=== PATIENT | female | born 1950 | race Caucasian/White ===

== ENCOUNTER 2016-08-30 16:59 | Inpatient (IN) | payer OTHER ==
--- NOTE | 2016-08-30 17:28 | PDOC ---
History of Present Illness - General History Source: Patient, Family (Sister), Old Records Exam Limitations: No Limitations - History of Present Illness Initial Comments: 08/30/16 18:59 The patient is a 65 year old female, with a significant past medical history of HTN, hyperlipidemia, diabetes, diabetic neuropathy, COPD, CML, hypothyroidism, fatty liver, and anxiety, who presents to the emergency department via EMS from [facility]; rehab and nursing facility) with altered mental status. The patient was seen in this ED on 06/19/2016 for similar symptoms, was admitted for anemia, hyperglycemia, CHF and COPD, and was discharged to [facility] ([place]; rehab and nursing facility). Over the past couple of weeks, the patient states that she has felt confused, dizzy, shaky and she reports 2 recent falls, no head trauma or LOC. The patients sister is with the patient in the ED, she insisted the patient come to the ED for evaluation today. Currently in the ED, the patient reports shortness of breath and reports urinary urgency, which she describes as a pressure. The patient denies fever, dizziness, nausea or vomiting. Allergies: Metoprolol Past Surgical History: Cholecystectomy, Hernia, Social History: Former smoker (quit in 2013. Denies alcohol or drug use. PCP: Dr. English <Jackie Vasquez - Last Filed: 08/31/16 02:15> <Sonya Cárdenas - Last Filed: 09/02/16 08:55> - General Stated Complaint: WEAKNESS,ALT MENTAL STATUS Time Seen by Provider: 08/30/16 17:26 Past History <Jackie Vasquez - Last Filed: 08/31/16 02:15> - Past Medical History Anemia: No Asthma: No Cancer: (CML) Cardiac Disorders: No CVA: No COPD: Yes CHF: No Dementia: No Diabetes: Yes GI Disorders: No Disorders: Yes (uti) HTN: Yes Hypercholesterolemia: Yes (BORDERLINE) Liver Disease: Yes (fatty liver) Psychiatric Problems: Yes (ANXIETY.) Suicide Attempt (Hx): No Seizures: No Thyroid Disease: Yes (HYPO) - Surgical History Abdominal Surgery: Yes (hernia) Cardiac Surgery: No Cholecystectomy: Yes Lung Surgery: No Neurologic Surgery: No Orthopedic Surgery: No - Immunization History Immunization Up to Date: Yes - Psycho/Social/Smoking Cessation Hx Anxiety: No Suicidal Ideation: No Smoking Status: Yes Smoking History: Former smoker Have you smoked in the past 12 months: No Number of Cigarettes Smoked Daily: 0 If you are a former smoker, when did you quit?: 2013 'Breaking Loose' booklet given: 02/28/12 Hx Alcohol Use: No Drug/Substance Use Hx: No Substance Use Type: None Hx Substance Use Treatment: No <Sonya Cárdenas - Last Filed: 09/02/16 08:55> - Past Medical History Allergies/Adverse Reactions: Allergies Allergy/AdvReac Type Severity Reaction Status Date / Time metoprolol Allergy Intermediate Rash Verified 04/14/16 11:01 Home Medications: Ambulatory Orders Acarbose [Precose -] 25 mg PO TID 02/19/15 Gabapentin [Neurontin] 600 mg PO TID 02/19/15 Levothyroxine [Synthroid -] 25 mcg PO DAILY 02/19/15 Lisinopril [Zestril] 20 mg PO BID 02/19/15 Nilotinib HCl [Tasigna] 300 mg PO BID 02/19/15 Glimepiride [Amaryl -] 4 mg PO BID #0 11/23/15 Albuterol Sulfate Inhaler - [Ventolin HFA Inhaler -] 2 inh IH Q6H PRN 04/11/16 Acetaminophen [Tylenol .Regular Strength -] 650 mg PO Q4H PRN #0 tablet Oxycodone HCl [Roxicodone -] 10 mg PO Q4H PRN #0 tablet MDD 60mg 06/28/16 Review of Systems - Review of Systems Able to Perform ROS?: Yes Comments:: 08/30/16 19:01 GENERAL/CONSTITUTIONAL: No fever or chills. No weakness. HEAD, EYES, EARS, NOSE AND THROAT: No change in vision. No ear pain or discharge. No sore throat. CARDIOVASCULAR: +Shortness of breath. No chest pain. RESPIRATORY: No cough, wheezing, or hemoptysis. GASTROINTESTINAL: No nausea, vomiting, diarrhea or constipation. GENITOURINARY: +Urinary urgency. No dysuria, frequency. MUSCULOSKELETAL: No joint or muscle swelling or pain. No neck or back pain. SKIN: No rash. NEUROLOGIC: No headache, vertigo, loss of consciousness, or change in strength/ sensation. ENDOCRINE: No increased thirst. No abnormal weight change. HEMATOLOGIC/LYMPHATIC: No anemia, easy bleeding, or history of blood clots. ALLERGIC/IMMUNOLOGIC: No hives or skin allergy. <Jackie Vasquez - Last Filed: 08/31/16 02:15> *Physical Exam - Vital Signs Last Vital Signs Temp Pulse Resp BP Pulse Ox 98.3 F 76 20 158/69 94 L 08/30/16 17:29 08/30/16 17:29 08/30/16 17:29 08/30/16 17:29 08/30/16 17:29 - Physical Exam Comments: 08/31/16 02:15 GENERAL: Obese. Awake, alert, and fully oriented, in no acute distress. HEAD: No signs of trauma. EYES: PERRLA, EOMI, sclera anicteric, conjunctiva clear. ENT: Dry mucosa. Auricles normal inspection, hearing grossly normal, nares patent, oropharynx clear without exudates. NECK: Normal ROM, supple, no lymphadenopathy, JVD, or masses. LUNGS: Breath sounds equal, clear to auscultation bilaterally. No wheezes, and no crackles. HEART: Regular rate and rhythm, normal S1 and S2, no murmurs, rubs or gallops. ABDOMEN: Soft, nontender, normoactive bowel sounds. No guarding, no rebound. No masses. EXTREMITIES: 3+ pitting edema, bilateral lower extremities with chronic venous stasis changes. No clubbing or cyanosis. No cords, erythema, or tenderness. NEUROLOGICAL: Cranial nerves II through XII grossly intact. Normal speech. SKIN: Right foot, 3cm ulcer to plantar surface of the right heel. Left foot, 1cm ulcer to plantar surface of the left heel, 2.5cm in diameter to the medial left heel. Warm, dry, normal turgor. <Jackie Vasquez - Last Filed: 08/31/16 02:15> ED Treatment Course - LABORATORY CBC & Chemistry Diagram: 08/30/16 17:50 08/30/16 17:50 <Jackie Vasquez - Last Filed: 08/31/16 02:15> - LABORATORY CBC & Chemistry Diagram: 09/02/16 06:30 09/02/16 06:30 <Sonya Cárdenas - Last Filed: 09/02/16 08:55> Medical Decision Making - Medical Decision Making 08/30/16 21:35 EXAM: CHEST X-RAY PORTABLE Reviewed By: Dr. Amie Duogn IMPRESSION: Suggestion of mild vascular congestion. <Jackie Vasquez - Last Filed: 08/31/16 02:15> - Medical Decision Making XR is concerning for possible osteomyelitis, which would explain the recent increase in patient's pain. Will admit. <Sonya Cárdenas - Last Filed: 09/02/16 08:55> *DC/Admit/Observation/Transfer - Attestations Scribe Attestion: 08/30/16 18:12 Documentation prepared by Jackie Vaqsuez, acting as medical records assistant for Snoya Cárdenas MD. <Jackie Vasquez - Last Filed: 08/31/16 02:15> - Discharge Dispostion Admit: Yes <Sonya Cárdenas - Last Filed: 09/02/16 08:55> Diagnosis at time of Disposition: Shortness of breath Diabetic foot ulcer Qualifiers: Diabetes mellitus type: other specified (including STORM) Laterality: bilateral Qualified Code(s): E13.621 - Other specified diabetes mellitus with foot ulcer - Discharge Dispostion Condition at time of disposition: Stable - Referrals
[2016-08-30 17:34] VITALS: BMI 41.6
[2016-08-30 18:07] LABS: BASOPHIL 0.5 % (0-2.0); EOSINOPHIL 0.3 % (0-4.5); MCHC 31.9 g/dl (32.0-36.0); MEAN CELL VOLUME 84.6 fl (80-96); MEAN PLT VOLUME 8.9 fl (7.5-11.1); NEUTROPHILS 83.3 % (42.8-82.8); PLATELET COUNT 251 K/MM3 (134-434); RDW 18.4 % (11.6-15.6); WHITE BLOOD COUNT 10.4 K/mm3 (4.0-10.0)
[2016-08-30 18:26] LABS: INR 1.36 (0.82-1.09); PROTHROMBIN TIME (PATIENT) 15.1 SEC (9.98-11.88)
[2016-08-30 18:28] LABS: ALBUMIN 2.1 g/dl (3.4-5.0); ANION GAP 9 (8-16); BILIRUBIN,TOTAL 0.6 mg/dL (0.2-1.0); CALCIUM 7.9 mg/dL (8.5-10.1); CO2 27 mmol/L (21-32); CREATININE 0.9 mg/dL (0.55-1.02); SGPT/ALT 25 U/L (12-78); TOT PROT 7.2 g/dl (6.4-8.2)
[2016-08-30 18:31] LABS: ALK PHOS 227 U/L (45-117); TROPONIN I < 0.02 ng/ml (0.00-0.05)
[2016-08-30 18:40] LABS: SGOT/AST 34 U/L (15-37)
[2016-08-30 18:42] LABS: GLUCOSE,RANDOM 340 mg/dL (74-106)
[2016-08-30] MEDS ORDERED: SODIUM CHLORIDE 1,000 ML IV STA (19:52)
[2016-08-30] MEDS ORDERED: VANCOMYCIN 1,000 MG in DEXTROSE 5%-WATER - 250 ML IVPB ONE (19:52)
[2016-08-30] MEDS ORDERED: VANCOMYCIN 1 GRAM (PRE-DOCKED) 250 ML IVPB ONE (19:59)
[2016-08-30] MEDS ORDERED: oxyCODONE HCL 5 MG TABLET PO ONE (20:15)
[2016-08-30] MEDS ORDERED: oxyCODONE HCL 5 MG TABLET ONE (20:18)
[2016-08-30 20:20] LABS: URINE APPEARANCE CLEAR; URINE BILIRUBIN NEGATIVE (NEGATIVE); URINE BLOOD NEGATIVE (NEGATIVE); URINE COLOR YELLOW; URINE GLUCOSE (UA) 3+ (NEGATIVE); URINE KETONE NEGATIVE (NEGATIVE); URINE LEUK ESTERASE NEGATIVE (NEGATIVE); URINE NITRITE NEGATIVE (NEGATIVE); URINE UROBILINOGEN NEGATIVE E.U./dl (0.2-1.0)
[2016-08-30 20:25] LABS: URINE PROTEIN 2+ (NEGATIVE)
[2016-08-30 20:30] LABS: URINE HYALINE CAST 1 /lpf; URINE MUCUS RARE; URINE RBC 1 /hpf (0-3); URINE WBC <1 /hpf (3-5)
--- NOTE | 2016-08-30 22:02 | HP ---
CHIEF COMPLAINT: AMS PCP: Dr. Longo HISTORY OF PRESENT ILLNESS: This is a 65- year old female with a past medical history of: HTN, HLD, DM Type II, Diabetic Neuropathy, COPD, CML, Hypothyroidism, Fatty Liver, Anxiety. Who presents to the emergency department from [facility] ([facility]) with AMS. Patient reports not feeling herself for a couple of days, with weakness. Patient is currently being teated for pressure ulcers to bilateral heels. Patient reports SOB x 1 week. Patient denies fever, chills, CP, AP, N/V/D, constipation, melena , hematuria, dysuria. ER course was notable for: (1) Foot Xray- report: high suspicion for osteomyelitis (2) WBC 10.4 (3) Glucose 340 Recent Travel: None PAST MEDICAL HISTORY: See HPI PAST SURGICAL HISTORY: See HPI Social History: Smoking: Former Alcohol: None Drugs: None Resides at a [facility] Family History: Non-contributory Allergies metoprolol Allergy (Intermediate, Verified 04/14/16 11:01) Rash HOME MEDICATIONS: Medication Instructions Recorded Acarbose [Precose -] 25 mg PO TID 02/19/15 Gabapentin [Neurontin] 600 mg PO TID 02/19/15 Levothyroxine [Synthroid -] 25 mcg PO DAILY 02/19/15 Lisinopril [Zestril] 20 mg PO BID 02/19/15 Nilotinib HCl [Tasigna] 300 mg PO BID 02/19/15 Glimepiride [Amaryl -] 4 mg PO BID #0 11/23/15 Albuterol Sulfate Inhaler - 2 inh IH Q6H PRN 04/11/16 [Ventolin HFA Inhaler -] Acetaminophen [Tylenol .Regular 650 mg PO Q4H PRN #0 tablet 06/28/16 Strength -] Oxycodone HCl [Roxicodone -] 10 mg PO Q4H PRN #0 tablet MDD 60mg 06/28/16 REVIEW OF SYSTEMS CONSTITUTIONAL: generalized weakness Absent: fever, chills, diaphoresis, malaise, loss of appetite, weight change HEENT: Absent: rhinorrhea, nasal congestion, throat pain, throat swelling, difficulty swallowing, mouth swelling, ear pain, eye pain, visual changes CARDIOVASCULAR: peripheral edema Absent: chest pain, syncope, palpitations, irregular heart rate, lightheadedness RESPIRATORY: shortness of breath Absent: cough, dyspnea with exertion, orthopnea, wheezing, stridor, hemoptysis GASTROINTESTINAL: Absent: abdominal pain, abdominal distension, nausea, vomiting, diarrhea, constipation, melena, hematochezia GENITOURINARY: Absent: dysuria, frequency, urgency, hesitancy, hematuria, flank pain, genital pain MUSCULOSKELETAL: Absent: myalgia, arthralgia, joint swelling, back pain, neck pain SKIN: Absent: rash, itching, pallor HEMATOLOGIC/IMMUNOLOGIC: Absent: easy bleeding, easy bruising, lymphadenopathy, frequent infections ENDOCRINE: Absent: unexplained weight gain, unexplained weight loss, heat intolerance, cold intolerance NEUROLOGIC: mental status changes Absent: headache, focal weakness or paresthesias, dizziness, unsteady gait, seizure, bladder or bowel incontinence PSYCHIATRIC: Absent: anxiety, depression, suicidal or homicidal ideation, hallucinations. PHYSICAL EXAMINATION Vital Signs - 24 hr 08/30/16 08/30/16 17:29 18:00 Temperature 98.3 F 98.4 F Pulse Rate 76 Pulse Rate [ 75 Radial] Respiratory 20 18 Rate Blood Pressure 158/69 Blood Pressure 140/57 [Left Arm] O2 Sat by Pulse 94 L 96 Oximetry (%) GENERAL: Awake, alert, and fully oriented, in no acute distress. HEAD: Normal with no signs of trauma. EYES: Pupils equal, round and reactive to light, extraocular movements intact, sclera anicteric, conjunctiva clear. No lid lag. EARS, NOSE, THROAT: Ears normal, nares patent, oropharynx clear without exudates. Dry mucous membranes. NECK: Normal range of motion, supple without lymphadenopathy, JVD, or masses. LUNGS: Breath sounds clear to right lobes, diminished to left base. No wheezes, and no crackles. No accessory muscle use. HEART: Regular rate and rhythm, normal S1 and S2 without murmur, rub or gallop. ABDOMEN: Soft, obese, nontender, not distended, normoactive bowel sounds, no guarding, no rebound, no masses. No hepatomegaly or splenomegaly. MUSCULOSKELETAL: Normal range of motion at all joints. No bony deformities or tenderness. No CVA tenderness. UPPER EXTREMITIES: 2+ pulses, warm, well-perfused. No cyanosis. No clubbing. Cap refill <2 seconds. No peripheral edema. LOWER EXTREMITIES: 2+ pulses, warm, well-perfused. No calf tenderness. Bilateral pitting +4 peripheral edema. NEUROLOGICAL: Cranial nerves II-XII intact. Normal speech. Gait not observed. PSYCHIATRIC: Cooperative. Good eye contact. Appropriate mood and affect. SKIN: Warm, dry, normal turgor, no rashes or, +pressure ulcers to bilateral heels, +necrosis to R- heel, noted. Laboratory Results - last 24 hr 08/30/16 08/30/16 08/30/16 17:50 17:50 17:50 WBC 10.4 H D RBC 3.45 L Hgb 9.3 L Hct 29.2 L MCV 84.6 MCHC 31.9 L RDW 18.4 H Plt Count 251 MPV 8.9 Neutrophils % 83.3 H Lymphocytes % 7.9 L D Monocytes % 8.0 Eosinophils % 0.3 D Basophils % 0.5 INR 1.36 H Sodium 134 L Potassium 4.5 Chloride 98 Carbon Dioxide 27 +3Anion Gap 9 BUN 17 D Creatinine 0.9 D Creat Clearance w eGFR > 60 Random Glucose 340 H* D Calcium 7.9 L Total Bilirubin 0.6 AST 34 D ALT 25 Alkaline Phosphatase 227 H D Creatine Kinase 60 Troponin I < 0.02 Total Protein 7.2 Albumin 2.1 L D Urine Color Urine Appearance Urine pH Ur Specific Garwin Urine Protein Urine Glucose (UA) Urine Ketones Urine Blood Urine Nitrite Urine Bilirubin Urine Urobilinogen Ur Leukocyte Esterase Urine RBC Urine WBC Hyaline Casts Urine Mucus 08/30/16 20:00 WBC RBC Hgb Hct MCV MCHC RDW Plt Count MPV Neutrophils % Lymphocytes % Monocytes % Eosinophils % Basophils % INR Sodium Potassium Chloride Carbon Dioxide Anion Gap BUN Creatinine Creat Clearance w eGFR Random Glucose Calcium Total Bilirubin AST ALT Alkaline Phosphatase Creatine Kinase Troponin I Total Protein Albumin Urine Color Yellow Urine Appearance Clear Urine pH 5.0 Ur Specific Garwin 1.010 Urine Protein 2+ H Urine Glucose (UA) 3+ H Urine Ketones Negative Urine Blood Negative Urine Nitrite Negative Urine Bilirubin Negative Urine Urobilinogen Negative Ur Leukocyte Esterase Negative Urine RBC 1 Urine WBC <1 Hyaline Casts 1 Urine Mucus Rare ASSESSMENT/PLAN: This is a 65 year old female with a PMHx of: HTN, HLD, DM, Diabetic Neuropathy, COPD, CML, Hypothyroidism, Fatty Liver, Anxiety. Who presents to the ED with AMS and generalized weakness. Admitted for AMS, Diabetic Foot Ulcer r/o Osteomyelitis Plan: 1. Neurological: - AMS likely secondary to infection. On exam: patient is AAOx3, time, place and person. Mini Mental 3/3. 2. Integumentary: -Diabetic Right Foot Ulcer, On exam: +necrosis to surrounding tissues to right heel. Vancoymcin given in ED. Right foot xray: high suspicion osteomyelitis - Consider ID consult for ABX recommendations, will continue vancomycin renal dosing. Consider Vascular Consult for possible debridement 3. Endocrinology: -Hyperglycemia/Hypothyroidism- BGMs, ISS, Hold home meds secondary for tighter glycemic control, HgBA1C in am. Continue Levothyroxine, TSH in am 4. Pulmonary: - SOB- Patient reports SOB x 1 week- now resolved. If continues consider CT chest r/o PE 5. Cardiology: HTN/HLD- Continue home meds with parameters, monitor renal function. +4 pitting edema, chronic stasis ulcers to bilateral LE, will start on Lasix BID, strict INOs, Daily weights. Chest xray showed mild vascular congestion 6. Oncology: CML Continue to monitor and f/u in outpatient setting upon discharge. 7. F/E/N - PO Fluids 0.5L restriction - Replete lytes as indicated - Low Na, 1800 ADA Diet 8. DVT/PPI Prophylaxis - Heparin SQ/ PPI Code Status: Patient is a Full Code Problem List - Problem (1) Diabetic foot ulcer Code(s): E11.621 - TYPE 2 DIABETES MELLITUS WITH FOOT ULCER L97.509 - NON-PRESSURE CHRONIC ULCER OTH PRT UNSP FOOT W UNSP SEVERITY Qualifiers: Diabetes mellitus type: other specified (including STORM) Laterality: bilateral Qualified Code(s): E13.621 - Other specified diabetes mellitus with foot ulcer; L97.509 - Non-pressure chronic ulcer of other part of unspecified foot with unspecified severity (2) Heel ulcer due to DM Code(s): E11.621 - TYPE 2 DIABETES MELLITUS WITH FOOT ULCER L97.409 - NON-PRS CHRONIC ULCER OF UNSP HEEL AND MIDFOOT W UNSP SEVERT (3) Altered mental status Code(s): R41.82 - ALTERED MENTAL STATUS, UNSPECIFIED (4) CHF (congestive heart failure) Code(s): I50.9 - HEART FAILURE, UNSPECIFIED Qualifiers: Congestive heart failure type: unspecified congestive heart failure type Congestive heart failure chronicity: acute Qualified Code(s): I50.9 - Heart failure, unspecified (5) CML (chronic myelocytic leukemia) Code(s): C92.10 - CHRONIC MYELOID LEUK, BCR/ABL-POSITIVE, NOT ACHIEVE REMIS (6) COPD (chronic obstructive pulmonary disease) Code(s): J44.9 - CHRONIC OBSTRUCTIVE PULMONARY DISEASE, UNSPECIFIED Qualifiers : COPD type: unspecified COPD Qualified Code(s): J44.9 - Chronic obstructive pulmonary disease, unspecified (7) Diabetes Code(s): E11.9 - TYPE 2 DIABETES MELLITUS WITHOUT COMPLICATIONS (8) Hyperglycemia Code(s): R73.9 - HYPERGLYCEMIA, UNSPECIFIED (9) Hyperlipidemia Code(s): E78.5 - HYPERLIPIDEMIA, UNSPECIFIED (10) Hypertension Code(s): I10 - ESSENTIAL (PRIMARY) HYPERTENSION (11) Hypothyroid Code(s): E03.9 - HYPOTHYROIDISM, UNSPECIFIED (12) DVT prophylaxis Code(s): [id number] - Visit type - Emergency Visit Emergency Visit: Yes ED Registration Date: 08/30/16 Care time: The patient presented to the Emergency Department on the above date and was hospitalized for further evaluation of their emergent condition. - New Patient This patient is new to me today: Yes Date on this admission: 08/30/16 - Critical Care Critical Care patient: No
[2016-08-30] MEDS ORDERED: ACETAMINOPHEN 325 MG TABLET (FP) PO PRN (23:21)
[2016-08-30] MEDS ORDERED: ALBUTEROL SO4 2.5/IPRATROPIUM 0.5 INH SOL 3 ML VIAL.NEB. NEB PRN (23:21)
--- NOTE | 2016-08-30 23:24 | PN ---
Progress Note (short form) - Note Progress Note: this patient wrongfully admiited under my name should be under Dr Longo, do not admit under my name discussed with Dr louis from ED
[2016-08-31] MEDS: oxyCODONE HCL 5 MG TABLET PO PRN ×3 (02:38→15:56)
[2016-08-31] MEDS: GLIMEPIRIDE 4 MG TABLET (FP) PO SCH (06:39)
[2016-08-31] MEDS: LEVOTHYROXINE NA 25 MCG TABLET (FP) PO SCH (06:39)
[2016-08-31] MEDS: INSULIN SLIDING SCALE (NOVOLOG) 1 VIAL SQ SCH ×4 (06:39→21:49)
[2016-08-31 07:15] LABS: BASOPHIL 0.3 % (0-2.0); EOSINOPHIL 0.7 % (0-4.5); MCH 27.8 pg (25.7-33.7); MCHC 32.8 g/dl (32.0-36.0); MEAN CELL VOLUME 84.6 fl (80-96); MEAN PLT VOLUME 8.6 fl (7.5-11.1); NEUTROPHILS 80.5 % (42.8-82.8); PLATELET COUNT 219 K/MM3 (134-434); RDW 18.3 % (11.6-15.6); WHITE BLOOD COUNT 9.3 K/mm3 (4.0-10.0)
[2016-08-31] MEDS ORDERED: VANCOMYCIN 1 GRAM (PRE-DOCKED) 1,000 MG/250 ML BAG IVPB ONE (08:00)
[2016-08-31 08:16] LABS: CALCIUM 7.9 mg/dL (8.5-10.1); CREATININE 0.8 mg/dL (0.55-1.02); MAGNESIUM 2.2 mg/dL (1.8-2.4); PHOSPHOROUS 2.7 mg/dL (2.5-4.9); THYROID STIMULATING HORMONE 1.59 uIU/ml (0.358-3.74)
[2016-08-31] MEDS: GABAPENTIN 300 MG CAPSULE (FP) PO SCH ×2 (09:38→21:52)
[2016-08-31] MEDS: LISINOPRIL 5 MG TABLET (FP) PO SCH (09:38)
[2016-08-31] MEDS ORDERED: VANCOMYCIN 1,000 MG in DEXTROSE 5%-WATER - 250 ML IVPB SCH (10:00)
--- NOTE | 2016-08-31 11:15 | PN ---
Addendum entered and electronically signed by Shaka Jones PA 08/31/16 20:51: Spoke with LEANNA Farmer this evening. Said he will see patient in the AM. Made patient NPO except PO meds AFTER breakfast Possibly going to OR for decompression in OR Medical optimization Original Note: Progress Note (short form) - Note Progress Note: VASCULAR SURGERY / WOUND CARE Dr. Yvon Baker HPI: Called to petros 65 yo female with PMHx noted below. Admitted to [facility] for SOB x1 week. Patient well know to [facility]. Also managed care by LEANNA Farmer for her b/l heel ulcers. PMHx: HTN, HLD, DM Type II, Diabetic Neuropathy, COPD, CML, Hypothyroidism, Fatty Liver, Anxiety and legally blind Last Vital Signs Temp Pulse Resp BP Pulse Ox 97.7 F 80 20 117/82 96 08/31/16 06:48 08/31/16 06:47 08/31/16 06:47 08/31/16 06:47 08/31/16 01:22 CBC, BMP 08/31/16 06:00 08/31/16 06:00 INR, PTT INR 1.36 (0.82-1.09) H 08/30/16 17:50 Right foot XR: Air pocket/emphysematous changes seen in soft tissue around heel ulcer MELANI Gen: NAD. Non-toxic appearing LE: Left: heel DM ulcer ~ 1.5 x 1.5 cm (plantar aspect) with signs of wound contracture. Clean. Stage 1 to heel 3 x 3 cm. Pedal edema. Foot warm and well perfused Right: Plantar aspect with ~ 4 x 4 DM ulcer, pus expressed from wound. No surrounding bogginess. Mild erythema. No soft tissue crepitance. <Shaka Jones - Last Filed: 08/31/16 14:21> - Note Progress Note: Case discussed with PA. Dr. Farmer called me and will see patient in AM. She is currently afebrile with normal WBC. <Slim Troy - Last Filed: 08/31/16 20:02> Problem List - Problems (1) Diabetic foot ulcer Assessment/Plan: Dr. Troy covering for Dr. Baker until 09/02/16. Will see patient today and render decision for possible i&d/debridement Dr. Farmer consulted but unable to get here today (he treats her as out- patient). Tight glycemic control Dressing changed. elevation. iv abx Medical optimization. Code(s): E11.621 - TYPE 2 DIABETES MELLITUS WITH FOOT ULCER L97.509 - NON-PRESSURE CHRONIC ULCER OTH PRT UNSP FOOT W UNSP SEVERITY Qualifiers: Diabetes mellitus type: other specified (including STORM) Laterality: bilateral Qualified Code(s): E13.621 - Other specified diabetes mellitus with foot ulcer; L97.509 - Non-pressure chronic ulcer of other part of unspecified foot with unspecified severity <Shaka Jones - Last Filed: 08/31/16 14:21>
[2016-08-31] MEDS ORDERED: INSULIN (NOVOLOG) ASPART 100 UNITS/ML 10ML VIAL ONE ×2 (12:12→17:03)
--- NOTE | 2016-08-31 12:33 | PN ---
Progress Note, Physician Chief Complaint: Ms Hernandez says she is having pain in her feet, R>L. Denies cp, sob, n/v. - Current Medication List Current Medications: Active Medications Acetaminophen (Tylenol -) 650 mg PO Q6H PRN PRN Reason: FEVER OR PAIN Albuterol/Ipratropium (Duoneb -) 1 amp NEB Q6H PRN PRN Reason: SHORTNESS OF BREATH Docusate Sodium (Colace -) 300 mg PO HS [facility] Gabapentin (Neurontin -) 300 mg PO BID [facility] Last Admin: 08/31/16 09:38 Dose: 300 mg Glimepiride (Amaryl -) 4 mg PO DAILY@0700 [facility] Last Admin: 08/31/16 06:39 Dose: 4 mg Vancomycin HCl 1,000 mg/ (Dextrose) 250 mls @ 250 mls/hr IVPB BID [facility] Insulin Aspart (Novolog Vial Sliding Scale -) 1 vial SQ ACHS [facility] PRN Reason: Protocol Last Admin: 08/31/16 12:20 Dose: 4 units Insulin Detemir (Levemir Vial) 10 units SQ [facility] Levothyroxine Sodium (Synthroid -) 25 mcg PO DAILY@0700 [facility] Last Admin: 08/31/16 06:39 Dose: 25 mcg Lisinopril (Prinivil) 5 mg PO DAILY [facility] Last Admin: 08/31/16 09:38 Dose: 5 mg Oxycodone HCl (Roxicodone -) 5 mg PO Q6H PRN PRN Reason: PAIN Last Admin: 08/31/16 09:37 Dose: 5 mg - Objective Vital Signs: Vital Signs Temperature 97.7 F 08/31/16 06:48 Pulse Rate 80 08/31/16 06:47 Respiratory Rate 20 08/31/16 06:47 Blood Pressure 117/82 08/31/16 06:47 O2 Sat by Pulse Oximetry (%) 96 08/31/16 01:22 Constitutional: Yes: No Distress, Calm, Obese Cardiovascular: Yes: Regular Rate and Rhythm. No: Gallop, Murmur, Rub Respiratory: Yes: Regular, CTA Bilaterally. No: Rales, Rhonchi, Wheezes Gastrointestinal: Yes: Normal Bowel Sounds, Soft. No: Distention, Tenderness Extremities: Yes: Other (both feet wrapped and in braces) Edema: Yes Edema: LLE: Trace, RLE: Trace Labs: CBC, BMP 08/31/16 06:00 08/31/16 06:00 INR, PTT INR 1.36 (0.82-1.09) H 08/30/16 17:50 Problem List - Problems (1) Diabetic foot ulcer Assessment/Plan: -patient with history of blisters, now ulceration -concern for osteomyelitis -vascular surgery and podiatry consulted -ID consulted for antibiotics -check ESR and CRP Code(s): E11.621 - TYPE 2 DIABETES MELLITUS WITH FOOT ULCER L97.509 - NON-PRESSURE CHRONIC ULCER OTH PRT UNSP FOOT W UNSP SEVERITY Qualifiers: Diabetes mellitus type: other specified (including STORM) Laterality: bilateral Qualified Code(s): E13.621 - Other specified diabetes mellitus with foot ulcer; L97.509 - Non-pressure chronic ulcer of other part of unspecified foot with unspecified severity (2) Diabetes Assessment/Plan: -with hyperglycemia -check HgbA1c -may need to start on insulin as an outpatient -diabetic diet -start low dose levemir -continue SSI -will continue amaryl currently but monitor, may stop since on insulin Code(s): E11.9 - TYPE 2 DIABETES MELLITUS WITHOUT COMPLICATIONS (3) CML (chronic myelocytic leukemia) Assessment/Plan: -at baseline -continue tasigna, patient may need to bring from home Code(s): C92.10 - CHRONIC MYELOID LEUK, BCR/ABL-POSITIVE, NOT ACHIEVE REMIS (4) Hypertension Assessment/Plan: -controlled -MAR from SNF says on amlodipine -however considering diabetes will continue low dose lisinopril ordered Code(s): I10 - ESSENTIAL (PRIMARY) HYPERTENSION (5) Hypothyroid Assessment/Plan: -continue synthroid Code(s): E03.9 - HYPOTHYROIDISM, UNSPECIFIED
--- NOTE | 2016-08-31 17:01 | EKG ---
Test Reason : Blood Pressure : / mmHG Vent. Rate : 075 BPM Atrial Rate : 075 BPM P-R Int : 100 ms QRS Dur : 084 ms QT Int : 380 ms P-R-T Axes : -28 015 053 degrees QTc Int : 424 ms SINUS RHYTHM WITH SHORT NM OTHERWISE NORMAL ECG WHEN COMPARED WITH ECG OF 21-JUN-2016 22:26, NO SIGNIFICANT CHANGE WAS FOUND Confirmed by AMBER CHEN MD ([id number]) on 08/31/2016 5:00:11 PM Referred By: Overread By: AMBER CHEN MD
--- NOTE | 2016-08-31 17:23 | CONSULT ---
Consult Consult Specialty:: infectious diseases Referred by:: Dr Garcia Reason for Consultation:: osteo,and bilateral cellulitis of the leg - History of Present Illness Chief Complaint: severe pain and swelling r>L leg History of Present Illness: 65 year old female, with a significant past medical history of HTN, hyperlipidemia, diabetes, diabetic neuropathy, COPD, CML, hypothyroidism, fatty liver, and anxiety, who presents to the emergency department via EMS from [facility]; rehab and nursing facility) with altered mental status. The patient admitted for similar symptoms, was admitted for anemia, hyperglycemia, CHF and COPD, and was discharged to [facility]; rehab and nursing facility). patient has been sick for last couple of days including as i think for confusion currently patient is pretty awake and alert and I asked her what was going on she says that she could not take the pain from the legs and swelling any more patients legs are currently wrapped up and will see how her legs look like tomorrow - History Source History Provided By: Patient, Medical Record Limitations to Obtaining History: Clinical Condition - Past Medical History Cardio/Vascular: Yes: HTN, Hyperlipdemia Gastrointestinal: Yes: Constipation ...: No Endocrine: Yes: Diabetes Mellitus, Hypothyroidism - Past Surgical History Past Surgical History: Yes: Cholecystectomy, , Hernia Repair - Alcohol/Substance Use Hx Alcohol Use: No History of Substance Use: reports: None - Smoking History Smoking history: Former smoker Have you smoked in the past 12 months: No Aproximately how many cigarettes per day: 0 If you are a former smoker, when did you quit?: 2013 - Social History ADL: Independent History of Recent Travel: No Home Medications - Allergies Allergies/Adverse Reactions: Allergies Allergy/AdvReac Type Severity Reaction Status Date / Time metoprolol Allergy Intermediate Rash Verified 04/14/16 11:01 - Home Medications Home Medications: Ambulatory Orders Acarbose [Precose -] 25 mg PO TID 02/19/15 Gabapentin [Neurontin] 600 mg PO TID 02/19/15 Levothyroxine [Synthroid -] 25 mcg PO DAILY 02/19/15 Lisinopril [Zestril] 20 mg PO BID 02/19/15 Nilotinib HCl [Tasigna] 300 mg PO BID 02/19/15 Glimepiride [Amaryl -] 4 mg PO BID #0 11/23/15 Albuterol Sulfate Inhaler - [Ventolin HFA Inhaler -] 2 inh IH Q6H PRN 04/11/16 Acetaminophen [Tylenol .Regular Strength -] 650 mg PO Q4H PRN #0 tablet Oxycodone HCl [Roxicodone -] 10 mg PO Q4H PRN #0 tablet MDD 60mg 06/28/16 Family Disease History - Family Disease History Family Disease History: Other: Sister Review of Systems - Review of Systems Constitutional: reports: No Symptoms Eyes: reports: No Symptoms HENT: reports: No Symptoms Neck: reports: No Symptoms Cardiovascular: reports: No Symptoms Respiratory: reports: SOB, SOB on Exertion Gastrointestinal: reports: No Symptoms Genitourinary: reports: No Symptoms Musculoskeletal: reports: Muscle Pain, Other Integumentary: reports: Blister, Erythema Neurological: reports: Confusion Hematology/Lymphatic: reports: No Symptoms Psychiatric: reports: No Symptoms Physical Exam Vital Signs: Vital Signs Temperature 97.9 F 08/31/16 14:34 Pulse Rate 75 08/31/16 14:34 Respiratory Rate 20 08/31/16 14:34 Blood Pressure 148/61 08/31/16 14:34 O2 Sat by Pulse Oximetry (%) 92 L 08/31/16 09:00 Constitutional: Yes: Calm, Other (sleepy) Eyes: Yes: Conjunctiva Clear HENT: Yes: Atraumatic, Normocephalic Cardiovascular: Yes: Regular Rate and Rhythm Respiratory: Yes: Regular, CTA Bilaterally Gastrointestinal: Yes: Normal Bowel Sounds, Soft Musculoskeletal: Yes: Other Extremities: Yes: Other (bilateral dsg) Integumentary: Yes: Erythema Wound/Incision: Yes: Dressing Dry and Intact Neurological: Yes: Alert Psychiatric: Yes: Alert Labs: CBC, BMP 08/31/16 06:00 08/31/16 06:00 Imaging - Results X-ray: Report Reviewed, Image Reviewed Assessment/Plan Problem List - Problems (1) Diabetic foot ulcer Code(s): E11.621 - TYPE 2 DIABETES MELLITUS WITH FOOT ULCER L97.509 - NON-PRESSURE CHRONIC ULCER OTH PRT UNSP FOOT W UNSP SEVERITY Qualifiers: Diabetes mellitus type: other specified (including STORM) Laterality: bilateral Qualified Code(s): E13.621 - Other specified diabetes mellitus with foot ulcer; L97.509 - Non-pressure chronic ulcer of other part of unspecified foot with unspecified severity (2) Diabetes Code(s): E11.9 - TYPE 2 DIABETES MELLITUS WITHOUT COMPLICATIONS (3) CML (chronic myelocytic leukemia) Code(s): C92.10 - CHRONIC MYELOID LEUK, BCR/ABL-POSITIVE, NOT ACHIEVE REMIS (4) Hypertension Code(s): I10 - ESSENTIAL (PRIMARY) HYPERTENSION (5) Hypothyroid Code(s): E03.9 - HYPOTHYROIDISM, UNSPECIFIED plan will evaluate the leg tomorrow and decide if the patient needs an mri to be done or not elevation of the legs started on abx await for all cx reports to be back
[2016-08-31] MEDS: CEFTRIAXONE 50 ML IVPB SCH (18:23)
[2016-08-31] MEDS: DOCUSATE SODIUM 100 MG CAPSULE (FP) PO SCH (21:46)
[2016-08-31] MEDS: INSULIN DETEMIR 100 UNITS/ML MDV SQ SCH (21:48)
[2016-09-01] MEDS: oxyCODONE HCL 5 MG TABLET PO PRN ×4 (01:29→19:00)
[2016-09-01] MEDS ORDERED: PT OWN MED DRAWER 7, Y5N ONE ×2 (05:16→11:25)
[2016-09-01] MEDS: LEVOTHYROXINE NA 25 MCG TABLET (FP) PO SCH (06:04)
[2016-09-01] MEDS: GLIMEPIRIDE 4 MG TABLET (FP) PO SCH (06:04)
[2016-09-01] MEDS: INSULIN SLIDING SCALE (NOVOLOG) 1 VIAL SQ SCH ×4 (06:04→22:45)
[2016-09-01] MEDS ORDERED: LIDOCAINE HCL 1%, 10 MG/ML (20ML VIAL) ONE (07:29)
--- NOTE | 2016-09-01 07:52 | CONSULT ---
Consult - text type - Consultation Consultation Note: Podiatry: 65 year old poorly controlled DM F presents for admission from SNF with R heel DM ulcer with necrosis. Patient has been a long time patient of [facility], is non-adherent to f/u protocol and has not been to the center in months. Does report AMS over the past few days. Pt thinks it has to do with being in SNF for so long. She denies F/V/N/C/SOB/CP at home or currently. She is afebrile, VSS. Pt is s/p RLE angiogram in the past with Dr. Baker, demonstrating no need for further intervention. PMHx: poorly controlled DM, HTN, HLP, COPD, CHF, CML Meds: noted in chart PSHx: RLE diagnostic angio ALL: metoprolol MELANI: R foot: pedal pulses non-palpable, TG wnl, CFT brisk to all toes bilaterally. There is a plantar heel ulcer, mostly fibrotic base, areas of necrosis at the periphery, small amount of superficial purulence expressed. The ulcer probes deep to bone. There is no ascending cellulitis surrounding wound. The wound is somewhat boggy. There is no soft tissue crepitus, no fluctuance, no palpable loculations, moderate tenderness to palpation. No calf tenderness. WBC: 9.3 ESR > 130 R foot XR: ? of subcutaneous emphysema, vasc calcifications, (+) chronic osteomyelitis Imp: 65 year old poorly controlled DM F with R heel ulcer with osteomyelitis 1. C/w IV abx per ID 2. After verbal consent obtained, a bedside debridement procedure was performed. 8 CCs of 1% lidocaine plain was used to infiltrate the area for analgesia. Using a combination of sterile #11 blade scalpel and sterile scissors, an excisional debridement of fibrotic, liquefactive tissue was performed to the level of subcutaneous tissue. Small amount of purulence expressed superficially. Ulcer tracks deep. The patient tolerated the procedure well without complications. 3. Discussed guarded prognosis with patient. Clinically, I do not appreciate an emergent gas-forming infection. Additionally, I do not appreciate gas pockets on XR. Will discuss with Radiology physician. 4. NPO at midnight tonight. Plan for R heel debridement and lavage. 5. Thank you for the courtesy of the consultation. Mihcaela Farmer DPM
[2016-09-01 09:05] LABS: MCH 27.5 pg (25.7-33.7); MCHC 32.6 g/dl (32.0-36.0); MEAN CELL VOLUME 84.2 fl (80-96); MEAN PLT VOLUME 8.5 fl (7.5-11.1); PLATELET COUNT 241 K/MM3 (134-434); RDW 17.9 % (11.6-15.6); WHITE BLOOD COUNT 10.3 K/mm3 (4.0-10.0)
[2016-09-01 09:28] LABS: CALCIUM 8.3 mg/dL (8.5-10.1); CREATININE 0.5 mg/dL (0.55-1.02); MAGNESIUM 2.1 mg/dL (1.8-2.4); PHOSPHOROUS 2.5 mg/dL (2.5-4.9)
[2016-09-01 09:55] LABS: METAMYELOCYTE 1 % (0-2)
[2016-09-01] MEDS ORDERED: VANCOMYCIN 1 GRAM (PRE-DOCKED) 250 ML IVPB SCH (10:00)
[2016-09-01] MEDS ORDERED: INSULIN (NOVOLOG) ASPART 100 UNITS/ML 10ML VIAL ONE (12:09)
[2016-09-01] MEDS: CEFTRIAXONE 50 ML IVPB SCH (12:34)
[2016-09-01] MEDS: GABAPENTIN 300 MG CAPSULE (FP) PO SCH ×2 (12:35→22:43)
[2016-09-01] MEDS: LISINOPRIL 5 MG TABLET (FP) PO SCH (12:35)
--- NOTE | 2016-09-01 13:09 | PN ---
Progress Note, Physician History of Present Illness: stable still weak feeling well podiatry note noted - Current Medication List Current Medications: Active Medications Acetaminophen (Tylenol -) 650 mg PO Q6H PRN PRN Reason: FEVER OR PAIN Albuterol/Ipratropium (Duoneb -) 1 amp NEB Q6H PRN PRN Reason: SHORTNESS OF BREATH Docusate Sodium (Colace -) 300 mg PO HS [facility] Last Admin: 08/31/16 21:46 Dose: 300 mg Gabapentin (Neurontin -) 300 mg PO BID [facility] Last Admin: 09/01/16 12:35 Dose: 300 mg Glimepiride (Amaryl -) 4 mg PO DAILY@0700 [facility] Last Admin: 09/01/16 06:04 Dose: 4 mg Ceftriaxone Sodium (Rocephin 1gm Ivpb (Pre-Docked)) 50 mls @ 100 mls/hr IVPB DAILY [facility] Last Admin: 09/01/16 12:34 Dose: 100 mls/hr Vancomycin HCl (Vancomycin (Pre-Docked)) 250 mls @ 250 mls/hr IVPB DAILY [facility] Last Admin: 09/01/16 12:34 Dose: 250 mls/hr Insulin Aspart (Novolog Vial Sliding Scale -) 1 vial SQ [facility] PRN Reason: Protocol Last Admin: 09/01/16 12:24 Dose: Not Given Insulin Detemir (Levemir Vial) 10 units SQ [facility] Last Admin: 08/31/16 21:48 Dose: 10 units Levothyroxine Sodium (Synthroid -) 25 mcg PO DAILY@0700 [facility] Last Admin: 09/01/16 06:04 Dose: 25 mcg Lisinopril (Prinivil) 5 mg PO DAILY [facility] Last Admin: 09/01/16 12:35 Dose: 5 mg Non-Formulary Medication (Nilotinib Hcl [Tasigna]) 300 mg PO BID [facility] Oxycodone HCl (Roxicodone -) 10 mg PO Q6H PRN PRN Reason: PAIN Last Admin: 09/01/16 12:30 Dose: 10 mg - Objective Vital Signs: Vital Signs Temperature 98.2 F 08/31/16 18:00 Pulse Rate 80 08/31/16 18:00 Respiratory Rate 20 08/31/16 18:00 Blood Pressure 135/54 08/31/16 18:00 O2 Sat by Pulse Oximetry (%) 92 L 08/31/16 09:00 Constitutional: Yes: No Distress, Calm Cardiovascular: Yes: Regular Rate and Rhythm Respiratory: Yes: Regular, CTA Bilaterally Gastrointestinal: Yes: Normal Bowel Sounds, Soft Musculoskeletal: Yes: WNL Extremities: Yes: Other Wound/Incision: Yes: Dressing Dry and Intact Neurological: Yes: Alert, Oriented Psychiatric: Yes: Alert Labs: CBC, BMP 09/01/16 08:25 09/01/16 08:25 INR, PTT INR 1.36 (0.82-1.09) H 08/30/16 17:50 Assessment/Plan Problem List - Problems (1) Diabetic foot ulcer Code(s): E11.621 - TYPE 2 DIABETES MELLITUS WITH FOOT ULCER L97.509 - NON-PRESSURE CHRONIC ULCER OTH PRT UNSP FOOT W UNSP SEVERITY Qualifiers: Diabetes mellitus type: other specified (including STORM) Laterality: bilateral Qualified Code(s): E13.621 - Other specified diabetes mellitus with foot ulcer; L97.509 - Non-pressure chronic ulcer of other part of unspecified foot with unspecified severity (2) Diabetes Code(s): E11.9 - TYPE 2 DIABETES MELLITUS WITHOUT COMPLICATIONS (3) CML (chronic myelocytic leukemia) Code(s): C92.10 - CHRONIC MYELOID LEUK, BCR/ABL-POSITIVE, NOT ACHIEVE REMIS (4) Hypertension Code(s): I10 - ESSENTIAL (PRIMARY) HYPERTENSION (5) Hypothyroid Code(s): E03.9 - HYPOTHYROIDISM, UNSPECIFIED plan await for mri abx supportive care as per podiatry
--- NOTE | 2016-09-01 14:01 | PN ---
Progress Note, Physician Chief Complaint: Ms Hernandez is without complaint. No cp, sob, n/v. Foot pain controlled. - Current Medication List Current Medications: Active Medications Acetaminophen (Tylenol -) 650 mg PO Q6H PRN PRN Reason: FEVER OR PAIN Albuterol/Ipratropium (Duoneb -) 1 amp NEB Q6H PRN PRN Reason: SHORTNESS OF BREATH Docusate Sodium (Colace -) 300 mg PO HS [facility] Last Admin: 08/31/16 21:46 Dose: 300 mg Gabapentin (Neurontin -) 300 mg PO BID [facility] Last Admin: 09/01/16 12:35 Dose: 300 mg Ceftriaxone Sodium (Rocephin 1gm Ivpb (Pre-Docked)) 50 mls @ 100 mls/hr IVPB DAILY [facility] Last Admin: 09/01/16 12:34 Dose: 100 mls/hr Vancomycin HCl (Vancomycin (Pre-Docked)) 250 mls @ 250 mls/hr IVPB DAILY [facility] Last Admin: 09/01/16 12:34 Dose: 250 mls/hr Insulin Aspart (Novolog Vial Sliding Scale -) 1 vial SQ [facility] PRN Reason: Protocol Last Admin: 09/01/16 12:24 Dose: Not Given Insulin Detemir (Levemir Vial) 10 units SQ [facility] Last Admin: 08/31/16 21:48 Dose: 10 units Levothyroxine Sodium (Synthroid -) 25 mcg PO DAILY@0700 [facility] Last Admin: 09/01/16 06:04 Dose: 25 mcg Lisinopril (Prinivil) 5 mg PO DAILY [facility] Last Admin: 09/01/16 12:35 Dose: 5 mg Non-Formulary Medication (Nilotinib Hcl [Tasigna]) 300 mg PO BID [facility] Oxycodone HCl (Roxicodone -) 10 mg PO Q6H PRN PRN Reason: PAIN Last Admin: 09/01/16 12:30 Dose: 10 mg - Objective Vital Signs: Vital Signs Temperature 98.6 F 09/01/16 09:00 Pulse Rate 86 09/01/16 09:00 Respiratory Rate 20 09/01/16 09:00 Blood Pressure 163/81 09/01/16 09:00 O2 Sat by Pulse Oximetry (%) 96 09/01/16 09:00 Constitutional: Yes: No Distress, Calm, Obese Cardiovascular: Yes: Regular Rate and Rhythm. No: Gallop, Murmur, Rub Respiratory: Yes: Regular, CTA Bilaterally. No: Rales, Rhonchi, Wheezes Gastrointestinal: Yes: Normal Bowel Sounds, Soft. No: Distention, Tenderness Extremities: Yes: Other (both feet wrapped) Edema: Yes Edema: LLE: Trace, RLE: Trace Labs: CBC, BMP 09/01/16 08:25 09/01/16 08:25 INR, PTT INR 1.36 (0.82-1.09) H 08/30/16 17:50 Problem List - Problems (1) Diabetic foot ulcer Code(s): E11.621 - TYPE 2 DIABETES MELLITUS WITH FOOT ULCER L97.509 - NON-PRESSURE CHRONIC ULCER OTH PRT UNSP FOOT W UNSP SEVERITY Qualifiers: Diabetes mellitus type: other specified (including STORM) Laterality: bilateral Qualified Code(s): E13.621 - Other specified diabetes mellitus with foot ulcer; L97.509 - Non-pressure chronic ulcer of other part of unspecified foot with unspecified severity (2) Diabetes Code(s): E11.9 - TYPE 2 DIABETES MELLITUS WITHOUT COMPLICATIONS (3) CML (chronic myelocytic leukemia) Code(s): C92.10 - CHRONIC MYELOID LEUK, BCR/ABL-POSITIVE, NOT ACHIEVE REMIS (4) Hypertension Code(s): I10 - ESSENTIAL (PRIMARY) HYPERTENSION (5) Hypothyroid Code(s): E03.9 - HYPOTHYROIDISM, UNSPECIFIED Assessment/Plan (1) Diabetic foot ulcer Assessment/Plan: -podiatry and ID following -planning for the OR tomorrow -continue antibiotics Code(s): E11.621 - TYPE 2 DIABETES MELLITUS WITH FOOT ULCER L97.509 - NON-PRESSURE CHRONIC ULCER OTH PRT UNSP FOOT W UNSP SEVERITY Qualifiers: Diabetes mellitus type: other specified (including STORM) Laterality: bilateral Qualified Code(s): E13.621 - Other specified diabetes mellitus with foot ulcer; L97.509 - Non-pressure chronic ulcer of other part of unspecified foot with unspecified severity (2) Diabetes Assessment/Plan: -HgbA1c 8.5 -patient says she normally runs in the 200s -patient needs much tighter control, has end stage damage -will stop oral medications -begin levemir -better controlled on insulin Code(s): E11.9 - TYPE 2 DIABETES MELLITUS WITHOUT COMPLICATIONS (3) CML (chronic myelocytic leukemia) Assessment/Plan: -at baseline -continue tasigna, patient taking home medications Code(s): C92.10 - CHRONIC MYELOID LEUK, BCR/ABL-POSITIVE, NOT ACHIEVE REMIS (4) Hypertension Assessment/Plan: -elevated -increase lisinopril Code(s): I10 - ESSENTIAL (PRIMARY) HYPERTENSION (5) Hypothyroid Assessment/Plan: -continue synthroid Code(s): E03.9 - HYPOTHYROIDISM, UNSPECIFIED
[2016-09-01] MEDS ORDERED: LISINOPRIL 10 MG TABLET (FP) PO SCH (19:46)
[2016-09-01] MEDS: DOCUSATE SODIUM 100 MG CAPSULE (FP) PO SCH (22:43)
[2016-09-01] MEDS: INSULIN DETEMIR 100 UNITS/ML MDV SQ SCH (22:45)
[2016-09-02] MEDS: LEVOTHYROXINE NA 25 MCG TABLET (FP) PO SCH (06:04)
[2016-09-02] MEDS: INSULIN SLIDING SCALE (NOVOLOG) 1 VIAL SQ SCH ×4 (06:05→21:32)
[2016-09-02] MEDS ORDERED: SUCCINYLCHOLINE CHLORIDE 200 MG/10 ML VIAL ONE (07:13)
[2016-09-02] MEDS ORDERED: PROPOFOL 20 ML ONE ×2 (07:13)
[2016-09-02] MEDS ORDERED: LIDOCAINE HCL/PF 2% SDV 5ML VIAL ONE (07:14)
[2016-09-02] MEDS ORDERED: MIDAZOLAM HCL 2 MG/2 ML SINGLE DOSE VIAL ONE (07:14)
[2016-09-02] MEDS ORDERED: ONDANSETRON 4 MG/2 ML VIAL IVPUSH PRN ×2 (07:16→09:02)
[2016-09-02] MEDS ORDERED: LIDOCAINE HCL 2% (20ML MULTI-DOSE VIAL) NR ONE (07:24)
[2016-09-02 07:27] LABS: BASOPHIL 0.2 % (0-2.0); EOSINOPHIL 1.1 % (0-4.5); MCH 27.5 pg (25.7-33.7); MCHC 32.5 g/dl (32.0-36.0); MEAN CELL VOLUME 84.6 fl (80-96); MEAN PLT VOLUME 8.5 fl (7.5-11.1); NEUTROPHILS 77.9 % (42.8-82.8); PLATELET COUNT 229 K/MM3 (134-434); RDW 17.5 % (11.6-15.6)
[2016-09-02] MEDS ORDERED: SODIUM CHLORIDE 1,000 ML IV SCH ×2 (07:30→09:02)
[2016-09-02 08:00] LABS: CALCIUM 7.8 mg/dL (8.5-10.1); CREATININE 0.5 mg/dL (0.55-1.02); PHOSPHOROUS 3.6 mg/dL (2.5-4.9)
--- NOTE | 2016-09-02 08:20 | PN ---
Progress Note, Physician Chief Complaint: Ms Hernandez complains of foot pain. No cp, sob, n/v. s/p surgery - Current Medication List Current Medications: Active Medications Acetaminophen (Tylenol -) 650 mg PO Q6H PRN PRN Reason: FEVER OR PAIN Last Admin: 09/01/16 22:43 Dose: 650 mg Albuterol/Ipratropium (Duoneb -) 1 amp NEB Q6H PRN PRN Reason: SHORTNESS OF BREATH Docusate Sodium (Colace -) 300 mg PO HS [facility] Last Admin: 09/01/16 22:43 Dose: 300 mg Fentanyl (Sublimaze Injection -) 25 mcg IVPUSH [id number] PRN PRN Reason: PAIN Stop: 09/05/16 07:17 Gabapentin (Neurontin -) 300 mg PO BID [facility] Last Admin: 09/01/16 22:43 Dose: 300 mg Ceftriaxone Sodium (Rocephin 1gm Ivpb (Pre-Docked)) 50 mls @ 100 mls/hr IVPB DAILY [facility] Last Admin: 09/01/16 12:34 Dose: 100 mls/hr Vancomycin HCl (Vancomycin (Pre-Docked)) 250 mls @ 250 mls/hr IVPB DAILY [facility] Last Admin: 09/01/16 12:34 Dose: 250 mls/hr Sodium Chloride (Normal Saline -) 1,000 mls @ 42 mls/hr IV ASDIR [facility] Insulin Aspart (Novolog Vial Sliding Scale -) 1 vial SQ [facility] PRN Reason: Protocol Last Admin: 09/02/16 06:05 Dose: Not Given Insulin Detemir (Levemir Vial) 10 units SQ [facility] Last Admin: 09/01/16 22:45 Dose: 10 units Levothyroxine Sodium (Synthroid -) 25 mcg PO DAILY@0700 [facility] Last Admin: 09/02/16 06:04 Dose: Not Given Lisinopril (Prinivil) 10 mg PO DAILY [facility] Nilotinib Hcl [ (Tasigna] 150 Mg Caps) 0 mg PO BID [facility] Ondansetron HCl (Zofran Injection) 4 mg IVPUSH Q6H PRN PRN Reason: NAUSEA AND/OR VOMITING Stop: 09/02/16 13:17 Oxycodone HCl (Roxicodone -) 10 mg PO Q6H PRN PRN Reason: PAIN Last Admin: 09/01/16 19:00 Dose: 10 mg - Objective Vital Signs: Vital Signs Temperature 98.3 F 09/02/16 06:03 Pulse Rate 78 09/02/16 06:03 Respiratory Rate 20 09/02/16 06:03 Blood Pressure 125/61 09/02/16 06:03 O2 Sat by Pulse Oximetry (%) 98 09/01/16 21:00 Constitutional: Yes: No Distress, Calm, Obese Cardiovascular: Yes: Regular Rate and Rhythm. No: Gallop, Murmur, Rub Respiratory: Yes: Regular, CTA Bilaterally. No: Rales, Rhonchi, Wheezes Gastrointestinal: Yes: Normal Bowel Sounds, Soft. No: Distention, Tenderness Extremities: Yes: Other (both feet wrapped) Edema: No Labs: CBC, BMP 09/02/16 06:30 09/02/16 06:30 INR, PTT INR 1.36 (0.82-1.09) H 08/30/16 17:50 Problem List - Problems (1) Diabetic foot ulcer Code(s): E11.621 - TYPE 2 DIABETES MELLITUS WITH FOOT ULCER L97.509 - NON-PRESSURE CHRONIC ULCER OTH PRT UNSP FOOT W UNSP SEVERITY Qualifiers: Diabetes mellitus type: other specified (including STORM) Laterality: bilateral Qualified Code(s): E13.621 - Other specified diabetes mellitus with foot ulcer; L97.509 - Non-pressure chronic ulcer of other part of unspecified foot with unspecified severity (2) Diabetes Code(s): E11.9 - TYPE 2 DIABETES MELLITUS WITHOUT COMPLICATIONS (3) CML (chronic myelocytic leukemia) Code(s): C92.10 - CHRONIC MYELOID LEUK, BCR/ABL-POSITIVE, NOT ACHIEVE REMIS (4) Hypertension Code(s): I10 - ESSENTIAL (PRIMARY) HYPERTENSION (5) Hypothyroid Code(s): E03.9 - HYPOTHYROIDISM, UNSPECIFIED Assessment/Plan (1) Diabetic foot ulcer Assessment/Plan: -podiatry and ID following -s/p OR today -continue antibiotics Code(s): E11.621 - TYPE 2 DIABETES MELLITUS WITH FOOT ULCER L97.509 - NON-PRESSURE CHRONIC ULCER OTH PRT UNSP FOOT W UNSP SEVERITY Qualifiers: Diabetes mellitus type: other specified (including STORM) Laterality: bilateral Qualified Code(s): E13.621 - Other specified diabetes mellitus with foot ulcer; L97.509 - Non-pressure chronic ulcer of other part of unspecified foot with unspecified severity (2) Diabetes Assessment/Plan: -much better controlled on levemir -stop all oral diabetic medications -continue levemir -needs to keep glucose below 180 to promote wound healing Code(s): E11.9 - TYPE 2 DIABETES MELLITUS WITHOUT COMPLICATIONS (3) CML (chronic myelocytic leukemia) Assessment/Plan: -at baseline -continue tasigna, patient taking home medications Code(s): C92.10 - CHRONIC MYELOID LEUK, BCR/ABL-POSITIVE, NOT ACHIEVE REMIS (4) Hypertension Assessment/Plan: -lisinopril increased yesterday -monitor today -add second agent if needed Code(s): I10 - ESSENTIAL (PRIMARY) HYPERTENSION (5) Hypothyroid Assessment/Plan: -continue synthroid Code(s): E03.9 - HYPOTHYROIDISM, UNSPECIFIED
--- NOTE | 2016-09-02 08:38 | OP ---
Operative Note - Note: Operative Date: 09/02/16 Pre-Operative Diagnosis: R heel DM foot ulcer with infection Operation: R heel debridement and lavage with bone biopsy Findings: R heel DM ulcer probing to bone with mixed fibrotic-liquefactive base. Fragmented portions of calcaneus within the wound bed. Post-Operative Diagnosis: Same as Pre-op Surgeon: Jono Farmer Anesthesiologist/PROTOCOL OFFICER: Betzaida Rivera Anesthesia: Local, MAC Specimens Removed: Bone, soft tissue right foot Estimated Blood Loss (mls): 50 Instrument used (Debridements only): #15 blade scalpel and scissors Operative Report Dictated: Yes
--- NOTE | 2016-09-02 08:59 | OP ---
DATE OF OPERATION: 09/02/2016 PREOPERATIVE DIAGNOSIS: Right heel diabetic foot ulcer with infection. POSTOPERATIVE DIAGNOSIS: Right heel diabetic foot ulcer with infection. PROCEDURE: Right heel debridement and lavage with bone biopsy. SURGEON: Jono Farmer DPM MACHINE EGG WASHER: Arden Price DPM, PGY-2, [facility]. ANESTHESIA: Local with IV sedation. HEMOSTASIS: None. ESTIMATED BLOOD LOSS: Approximately 30 mL. PATHOLOGY: Soft tissue and bone, right heel. COMPLICATIONS: None. DESCRIPTION OF PROCEDURE: The patient was brought to the operating room and placed on the operating table in the supine position. I elected to not use hemostasis during the course of this procedure. Following the induction of IV sedation, local anesthesia was achieved with 12 mL of 2% lidocaine plain in a local block fashion. The right foot was then scrubbed, prepped, and draped in the usual aseptic fashion. Attention was directed to the right inferior heel where a probing ulcer with mixed fibrotic liquefactive tissue at the bed was visualized and appreciated. I begin by making an incision at the superomedial aspect of the wound where preoperatively there was purulence expressed on palpation. Immediately on incision, there was approximately 5 mL of superficial purulence expressed. I continued dissection using dissecting scissors to release all planes and loculations of the abscess. All purulent material was then expressed from the wound. I continued by performing an excisional debridement of the ulcer bed using a combination of sterile 15 blade and scissors to the level of subcutaneous tissue. All liquefactive and fibrotic tissue was removed. The underlying wound bed was bleeding healthy and granular. However, there was fragmented bone within the wound bed itself, which is indicative of a chronic osteomyelitis. A portion of the bone was then removed using a rongeur. This was sectioned for bone culture and pathology. Next, the surgical site was copiously irrigated with 3 L of sterile saline mixed with bacitracin in a pulse lavage fashion. The linear incision that was created was coapted and maintained utilizing 3-0 nylon in a retention suture-like fashion. The ulcer was then packed under the tunnel using 0.5-inch Iodoform packing. Following the conclusion of the procedure, the incision was covered with sterile gauze, and a compressive dressing was applied to the right foot consisting of sterile gauze, Janae, Kerlix, and an Phu wrap. Patient tolerated the procedure and anesthesia well without complications. She was transferred from the operating room to the recovery unit with vital signs stable and neurovasculature intact to the right foot. LEANNA SOMMERS/[id number] cc: [facility]
[2016-09-02] MEDS ORDERED: ALBUTEROL SO4 2.5/IPRATROPIUM 0.5 INH SOL 3 ML VIAL.NEB. NEB PRN (09:02)
[2016-09-02] MEDS ORDERED: ACETAMINOPHEN 325 MG TABLET (FP) PO PRN (09:02)
[2016-09-02] MEDS ORDERED: LISINOPRIL 10 MG TABLET (FP) PO SCH (10:00)
[2016-09-02] MEDS ORDERED: VANCOMYCIN 1 GRAM (PRE-DOCKED) 250 ML IVPB SCH (10:00)
[2016-09-02] MEDS ORDERED: NILOTINIB HCL 150 MG PO SCH (10:00)
[2016-09-02] MEDS ORDERED: CEFTRIAXONE 50 ML IVPB SCH (10:00)
[2016-09-02] MEDS: oxyCODONE HCL 5 MG TABLET PO PRN ×3 (11:08→21:55)
[2016-09-02] MEDS: GABAPENTIN 300 MG CAPSULE (FP) PO SCH ×2 (11:09→21:52)
--- NOTE | 2016-09-02 13:26 | PN ---
Progress Note, Physician History of Present Illness: patient stable no events was taken to or today debridement of rt heel and bone biopsy send - Current Medication List Current Medications: Active Medications Acetaminophen (Tylenol -) 650 mg PO Q6H PRN PRN Reason: FEVER OR PAIN Albuterol/Ipratropium (Duoneb -) 1 amp NEB Q6H PRN PRN Reason: SHORTNESS OF BREATH Docusate Sodium (Colace -) 300 mg PO HS [facility] Fentanyl (Sublimaze Injection -) 25 mcg IVPUSH [id number] PRN PRN Reason: PAIN Stop: 09/05/16 07:17 Gabapentin (Neurontin -) 300 mg PO BID [facility] Last Admin: 09/02/16 11:09 Dose: 300 mg Ceftriaxone Sodium (Rocephin 1gm Ivpb (Pre-Docked)) 50 mls @ 100 mls/hr IVPB DAILY [facility] Last Admin: 09/02/16 11:09 Dose: 100 mls/hr Sodium Chloride (Normal Saline -) 1,000 mls @ 42 mls/hr IV ASDIR [facility] Last Admin: 09/02/16 11:18 Dose: 42 mls/hr Vancomycin HCl (Vancomycin (Pre-Docked)) 250 mls @ 250 mls/hr IVPB DAILY [facility] Last Admin: 09/02/16 11:11 Dose: 250 mls/hr Insulin Aspart (Novolog Vial Sliding Scale -) 1 vial SQ ACHS [facility] PRN Reason: Protocol Insulin Detemir (Levemir Vial) 10 units SQ HS [facility] Levothyroxine Sodium (Synthroid -) 25 mcg PO DAILY@0700 [facility] Lisinopril (Prinivil) 10 mg PO DAILY [facility] Last Admin: 09/02/16 11:09 Dose: 10 mg Non-Formulary Medication (Nilotinib Hcl [Tasigna]) 0 mg PO BID [facility] Oxycodone HCl (Roxicodone -) 10 mg PO Q6H PRN PRN Reason: PAIN Last Admin: 09/02/16 11:08 Dose: 10 mg - Objective Vital Signs: Vital Signs Temperature 98.3 F 09/02/16 10:00 Pulse Rate 70 09/02/16 10:00 Respiratory Rate 20 09/02/16 10:00 Blood Pressure 151/62 09/02/16 10:00 O2 Sat by Pulse Oximetry (%) 100 09/02/16 09:45 Constitutional: Yes: No Distress, Calm Cardiovascular: Yes: Regular Rate and Rhythm Respiratory: Yes: Regular, CTA Bilaterally Gastrointestinal: Yes: Normal Bowel Sounds, Soft Musculoskeletal: Yes: Other Extremities: Yes: Other Wound/Incision: Yes: Dressing Dry and Intact, Other Neurological: Yes: Alert, Oriented Labs: CBC, BMP 09/02/16 06:30 09/02/16 06:30 INR, PTT INR 1.36 (0.82-1.09) H 08/30/16 17:50 Assessment/Plan Problem List - Problems (1) Diabetic foot ulcer Code(s): E11.621 - TYPE 2 DIABETES MELLITUS WITH FOOT ULCER L97.509 - NON-PRESSURE CHRONIC ULCER OTH PRT UNSP FOOT W UNSP SEVERITY Qualifiers: Diabetes mellitus type: other specified (including STORM) Laterality: bilateral Qualified Code(s): E13.621 - Other specified diabetes mellitus with foot ulcer; L97.509 - Non-pressure chronic ulcer of other part of unspecified foot with unspecified severity (2) Diabetes Code(s): E11.9 - TYPE 2 DIABETES MELLITUS WITHOUT COMPLICATIONS (3) CML (chronic myelocytic leukemia) Code(s): C92.10 - CHRONIC MYELOID LEUK, BCR/ABL-POSITIVE, NOT ACHIEVE REMIS (4) Hypertension Code(s): I10 - ESSENTIAL (PRIMARY) HYPERTENSION (5) Hypothyroid Code(s): E03.9 - HYPOTHYROIDISM, UNSPECIFIED plan await for bone cx wound cx results noted stopped vanco started on zosyn will await all identification and change abx
[2016-09-02] MEDS: PIPERACILLIN/TAZOB 3.375 GM 50 ML IVPB SCH ×2 (15:25→17:18)
[2016-09-02] MEDS ORDERED: PT OWN MED DRAWER 7, Y5N ONE (17:02)
[2016-09-02] MEDS ORDERED: INSULIN (NOVOLOG) ASPART 100 UNITS/ML 10ML VIAL ONE (20:09)
[2016-09-02] MEDS: DOCUSATE SODIUM 100 MG CAPSULE (FP) PO SCH (21:51)
[2016-09-02] MEDS: INSULIN DETEMIR 100 UNITS/ML MDV SQ SCH (21:51)
[2016-09-02] MEDS: NILOTINIB HCL 300 MG PO SCH (21:53)
[2016-09-03] MEDS: PIPERACILLIN/TAZOB 3.375 GM 50 ML IVPB SCH ×3 (01:03→18:09)
[2016-09-03] MEDS: oxyCODONE HCL 5 MG TABLET PO PRN ×4 (04:40→21:48)
[2016-09-03] MEDS: INSULIN SLIDING SCALE (NOVOLOG) 1 VIAL SQ SCH ×4 (06:09→21:48)
[2016-09-03] MEDS: LEVOTHYROXINE NA 25 MCG TABLET (FP) PO SCH (06:09)
[2016-09-03 07:49] LABS: BASOPHIL 0.2 % (0-2.0); EOSINOPHIL 1.1 % (0-4.5); MCH 27.7 pg (25.7-33.7); MCHC 32.9 g/dl (32.0-36.0); MEAN CELL VOLUME 84.4 fl (80-96); MEAN PLT VOLUME 8.5 fl (7.5-11.1); PLATELET COUNT 213 K/MM3 (134-434); RDW 17.5 % (11.6-15.6); WHITE BLOOD COUNT 8.2 K/mm3 (4.0-10.0)
--- NOTE | 2016-09-03 07:55 | PN ---
Progress Note (short form) - Note Progress Note: Podiatry: Seen and evaluated at bedside, NAD. Pain well controlled, denies F/V/N/C/SOB/ CP. S/p R heel debridement/lavage with bone biopsy, POD # 1. Afebrile, VSS. MELANI: R foot: dressing C/D/I, no active bleeding, no strikethrough. Post-surgical wound at inferior heel, mixed fibrotic-granular base with area of eschar around periphery. The wound probes deep. The sutures at the superior aspect of the wound are well coapted, there is no dehiscence. There is no purulence expressed from the wound, no fluctuance, no soft tissue crepitus, no ascending cellulitis, no signs of acute infection. WBC: pending OR Cx: pending Imp: 65 year old IDDM F s/p R heel debridement and lavage, bone biopsy for DM foot infection 1. C/w IV abx per ID 2. Wet to dry placed to R foot 3. Monitor labs, will continue to monitor for improvement of infection 4. May need VAC Tx, NASH placement 5. Will follow Michaela Farmer DPM
[2016-09-03 08:01] LABS: CALCIUM 7.7 mg/dL (8.5-10.1); CREATININE 0.6 mg/dL (0.55-1.02); PHOSPHOROUS 3.2 mg/dL (2.5-4.9)
--- NOTE | 2016-09-03 09:05 | PN ---
Physical Exam: SUBJECTIVE: Patient seen and examined. Hgb trending down but nursing staff does not report any bloody BM. Pt feels well/ States no CP, SOB, hematuria. She reports h/o CML for which she has received transfusions in the past. Most recently at [facility] last week. Went to OR yesterday for R heel debridement. Procedure tolerated well. OBJECTIVE: Vital Signs Period Temp Pulse Resp BP Sys/[place]ado Pulse Ox Last 24 Hr 98.1 F-99.6 F 68-85 17-20 144-158/57-86 99-100 GEN: obese, middle aged female, on 2L NC CV: regular, Pulm: CTAB Abd: obese, wearing adult diapers Ext: large, thick thighs, non-pitting edema. C/D/I over bilateral heels. Sensation in feet intact to touch. Laboratory Results - last 24 hr 09/02/16 09/02/16 09/02/16 14:06 17:18 21:31 WBC RBC Hgb Hct MCV MCHC RDW Plt Count MPV Neutrophils % Lymphocytes % Monocytes % Eosinophils % Basophils % Sodium Potassium Chloride Carbon Dioxide Anion Gap BUN Creatinine POC Glucometer 155 152 149 Random Glucose Calcium Phosphorus Magnesium 09/03/16 09/03/16 09/03/16 04:54 07:00 07:05 WBC 8.2 RBC 3.01 L Hgb 8.3 L Hct 25.4 L MCV 84.4 MCHC 32.9 RDW 17.5 H Plt Count 213 MPV 8.5 Neutrophils % 78.0 Lymphocytes % 11.2 Monocytes % 9.5 Eosinophils % 1.1 Basophils % 0.2 Sodium 141 Potassium 3.7 Chloride 103 Carbon Dioxide 30 Anion Gap 8 BUN 7 Creatinine 0.6 POC Glucometer 128 Random Glucose 120 H Calcium 7.7 L Phosphorus 3.2 Magnesium 2.0 Active Medications Generic Name Dose Route Start Last Admin Trade Name Freq PRN Reason Stop Dose Admin Acetaminophen 650 mg 09/02/16 09:02 Tylenol - PO Q6H PRN FEVER OR PAIN Albuterol/Ipratropium 1 amp 09/02/16 09:02 Duoneb - NEB Q6H PRN SHORTNESS OF BREATH Docusate Sodium 300 mg 09/02/16 22:00 09/02/16 21:51 Colace - PO 300 mg HS [facility]ITA Administration Fentanyl 25 mcg 09/02/16 09:02 Sublimaze Injection - IVPUSH 09/05/16 07:17 [id number] PRN PAIN Gabapentin 300 mg 09/02/16 10:00 09/02/16 21:52 Neurontin - PO 300 mg BID J[facility] Administration Sodium Chloride 1,000 mls @ 42 mls/hr 09/02/16 09:02 09/02/16 11:18 Normal Saline - IV 42 mls/hr ASDIR [facility] Administration Piperacillin Sod/Tazobactam Sod 50 mls @ 100 mls/hr 09/02/16 13:30 09/03/16 01: 03 Zosyn 3.375gm Ivpb (Pre-Docked) IVPB 100 mls/hr Q8H-IV [facility] Administration Insulin Aspart 1 vial 09/02/16 11:00 09/03/16 06:09 Novolog Vial Sliding Scale - SQ Not Given ACHS [facility] Protocol Insulin Detemir 10 units 09/02/16 22:00 09/02/16 21:51 Levemir Vial SQ 10 units HS [facility] Administration Levothyroxine Sodium 25 mcg 09/03/16 07:00 09/03/16 06:09 Synthroid - PO 25 mcg DAILY@0700 [facility] Administration Lisinopril 10 mg 09/02/16 10:00 09/02/16 11:09 Prinivil PO 10 mg DAILY [facility] Administration Non-Formulary Medication 300 mg 09/02/16 22:00 09/02/16 21:53 Nilotinib Hcl [Tasigna] PO 300 mg BID [facility] Administration Oxycodone HCl 10 mg 09/02/16 09:02 09/03/16 04:40 Roxicodone - PO 10 mg Q6H PRN Administration PAIN Procedures 09/02 R heel debridement and lavage, bone biopsy ASSESSMENT/PLAN: #Diabetic foot ulcer -R heel debridement on 09/02, pending bone biopsy/wound cultures. ?Possible for wound Vac per Podiatry notes. Will discuss with Dr. Farmer if MRI RLE still necessary as still not performed -cont wound dressing changes, Podiatry following -oxycodone prn for pain, bowel regimen -ID following, now only on Zosyn awaiting wound culture results, leukocytosis resolved -Last ESR >130 (08/31). MRI -PT ordered #DM -continue levemir, home oral hypoglycemic being held -ISS #CML -trend counts -has required transfusions in past -Type and screen ordered for tomorrow. No acute need for transfusion at this time #HTN -Still above goal for diabetic with SBP 140-150. Asymptomatic. Cr/K WNL, Lisinopril dosed increased further to 20mg daily today -consider adding second agents if continues to remain elevated #Hypothyroid -cont synthroid #Hypoxia?, acute -no evidence 100% prior to OR, now 99% on NC. Likely used post-op -titrate off O2 -incentive spirometer DISPO: pending need for continued IV Abx and cont PT assessment for placement Visit type - Emergency Visit Emergency Visit: Yes ED Registration Date: 08/30/16 Care time: The patient presented to the Emergency Department on the above date and was hospitalized for further evaluation of their emergent condition. - New Patient This patient is new to me today: Yes Date on this admission: 09/03/16 - Critical Care Critical Care patient: No
[2016-09-03] MEDS: NILOTINIB HCL 300 MG PO SCH ×2 (10:00→21:48)
[2016-09-03] MEDS: GABAPENTIN 300 MG CAPSULE (FP) PO SCH ×2 (10:00→21:48)
[2016-09-03] MEDS: LISINOPRIL 20 MG TABLET (FP) PO SCH (10:00)
--- NOTE | 2016-09-03 14:19 | PN ---
Progress Note, Physician History of Present Illness: patient stable no events looks much better - Current Medication List Current Medications: Active Medications Acetaminophen (Tylenol -) 650 mg PO Q6H PRN PRN Reason: FEVER OR PAIN Albuterol/Ipratropium (Duoneb -) 1 amp NEB Q6H PRN PRN Reason: SHORTNESS OF BREATH Docusate Sodium (Colace -) 300 mg PO HS [facility] Last Admin: 09/02/16 21:51 Dose: 300 mg Fentanyl (Sublimaze Injection -) 25 mcg IVPUSH [id number] PRN PRN Reason: PAIN Stop: 09/05/16 07:17 Gabapentin (Neurontin -) 300 mg PO BID [facility] Last Admin: 09/03/16 10:00 Dose: 300 mg Piperacillin Sod/Tazobactam Sod (Zosyn 3.375gm Ivpb (Pre-Docked)) 50 mls @ 100 mls/hr IVPB Q8H-IV [facility] Last Admin: 09/03/16 10:02 Dose: 100 mls/hr Insulin Aspart (Novolog Vial Sliding Scale -) 1 vial SQ [facility] PRN Reason: Protocol Last Admin: 09/03/16 13:02 Dose: Not Given Insulin Detemir (Levemir Vial) 10 units SQ [facility] Last Admin: 09/02/16 21:51 Dose: 10 units Levothyroxine Sodium (Synthroid -) 25 mcg PO DAILY@0700 [facility] Last Admin: 09/03/16 06:09 Dose: 25 mcg Lisinopril (Prinivil) 20 mg PO DAILY [facility] Last Admin: 09/03/16 10:00 Dose: 20 mg Non-Formulary Medication (Nilotinib Hcl [Tasigna]) 300 mg PO BID [facility] Last Admin: 09/03/16 10:00 Dose: 300 mg Oxycodone HCl (Roxicodone -) 10 mg PO Q6H PRN PRN Reason: PAIN Last Admin: 09/03/16 10:02 Dose: 10 mg - Objective Vital Signs: Vital Signs Temperature 97.7 F 09/03/16 10:11 Pulse Rate 71 09/03/16 10:11 Respiratory Rate 20 09/03/16 10:13 Blood Pressure 155/72 09/03/16 10:11 O2 Sat by Pulse Oximetry (%) 98 09/03/16 10:13 Constitutional: Yes: No Distress, Calm HENT: Yes: Atraumatic Neck: Yes: Supple Cardiovascular: Yes: Regular Rate and Rhythm Respiratory: Yes: Regular Gastrointestinal: Yes: Normal Bowel Sounds, Soft Musculoskeletal: Yes: Other Extremities: Yes: Other Wound/Incision: Yes: Dressing Dry and Intact Neurological: Yes: Alert Labs: CBC, BMP 09/03/16 07:00 09/03/16 07:05 INR, PTT INR 1.36 (0.82-1.09) H 08/30/16 17:50 Assessment/Plan Problem List - Problems (1) Diabetic foot ulcer Code(s): E11.621 - TYPE 2 DIABETES MELLITUS WITH FOOT ULCER L97.509 - NON-PRESSURE CHRONIC ULCER OTH PRT UNSP FOOT W UNSP SEVERITY Qualifiers: Diabetes mellitus type: other specified (including STORM) Laterality: bilateral Qualified Code(s): E13.621 - Other specified diabetes mellitus with foot ulcer; L97.509 - Non-pressure chronic ulcer of other part of unspecified foot with unspecified severity (2) Diabetes Code(s): E11.9 - TYPE 2 DIABETES MELLITUS WITHOUT COMPLICATIONS (3) CML (chronic myelocytic leukemia) Code(s): C92.10 - CHRONIC MYELOID LEUK, BCR/ABL-POSITIVE, NOT ACHIEVE REMIS (4) Hypertension Code(s): I10 - ESSENTIAL (PRIMARY) HYPERTENSION (5) Hypothyroid Code(s): E03.9 - HYPOTHYROIDISM, UNSPECIFIED plan await for bone cx wound cx results noted continue taty
[2016-09-03] MEDS: DOCUSATE SODIUM 100 MG CAPSULE (FP) PO SCH (21:47)
[2016-09-03] MEDS: INSULIN DETEMIR 100 UNITS/ML MDV SQ SCH (21:47)
[2016-09-04] MEDS: PIPERACILLIN/TAZOB 3.375 GM 50 ML IVPB SCH ×3 (02:16→18:08)
[2016-09-04] MEDS: oxyCODONE HCL 5 MG TABLET PO PRN ×3 (05:34→20:31)
[2016-09-04] MEDS: LEVOTHYROXINE NA 25 MCG TABLET (FP) PO SCH (06:30)
[2016-09-04] MEDS: INSULIN SLIDING SCALE (NOVOLOG) 1 VIAL SQ SCH ×4 (06:31→21:07)
[2016-09-04 06:39] LABS: MCH 27.5 pg (25.7-33.7); MCHC 32.6 g/dl (32.0-36.0); MEAN CELL VOLUME 84.2 fl (80-96); MEAN PLT VOLUME 8.4 fl (7.5-11.1); PLATELET COUNT 229 K/MM3 (134-434); RDW 17.6 % (11.6-15.6); WHITE BLOOD COUNT 8.1 K/mm3 (4.0-10.0)
[2016-09-04 07:50] LABS: CALCIUM 7.5 mg/dL (8.5-10.1)
[2016-09-04 07:53] LABS: CREATININE 0.5 mg/dL (0.55-1.02); MAGNESIUM 1.9 mg/dL (1.8-2.4)
--- NOTE | 2016-09-04 08:57 | PN ---
Progress Note (short form) - Note Progress Note: currently asymptomatic. states heel pain is controlled well with pain medications. denies CP, SOB,fever, chills, cough, N/V/C/D Current Medications Generic Name Dose Route Start Last Admin Trade Name Freq PRN Reason Stop Dose Admin Acetaminophen 650 mg 09/02/16 09:02 Tylenol - PO Q6H PRN FEVER OR PAIN Albuterol/Ipratropium 1 amp 09/02/16 09:02 Duoneb - NEB Q6H PRN SHORTNESS OF BREATH Docusate Sodium 300 mg 09/02/16 22:00 09/03/16 21:47 Colace - PO 300 mg HS [facility] Administration Gabapentin 300 mg 09/02/16 10:00 09/03/16 21:48 Neurontin - PO 300 mg BID [facility] Administration Piperacillin Sod/Tazobactam Sod 50 mls @ 100 mls/hr 09/02/16 13:30 09/04/16 02: 16 Zosyn 3.375gm Ivpb (Pre-Docked) IVPB 100 mls/hr Q8H-IV [facility] Administration Insulin Aspart 1 vial 09/02/16 11:00 09/04/16 06:31 Novolog Vial Sliding Scale - SQ 2 units ACHS [facility] Administration Protocol Insulin Detemir 10 units 09/02/16 22:00 09/03/16 21:47 Levemir Vial SQ 10 units HS [facility] Administration Levothyroxine Sodium 25 mcg 09/03/16 07:00 09/04/16 06:30 Synthroid - PO 25 mcg DAILY@0700 [facility] Administration Lisinopril 20 mg 09/03/16 09:14 09/03/16 10:00 Prinivil PO 20 mg DAILY [facility] Administration Non-Formulary Medication 300 mg 09/02/16 22:00 09/03/16 21:48 Nilotinib Hcl [Tasigna] PO 300 mg BID [facility] Administration Oxycodone HCl 10 mg 09/03/16 16:54 09/04/16 05:34 Roxicodone - PO 10 mg Q4H PRN Administration PAIN Last Vital Signs Temp Pulse Resp BP Pulse Ox 98.7 F 77 20 162/73 98 09/04/16 06:22 09/04/16 06:22 09/04/16 06:22 09/04/16 06:22 09/03/16 10:13 General NAD, resting comfortable CV S1 S2+ Lungs CTA B/L anteriorly Extremities R foot wrapped dressing c/d/i CBCD WBC 8.1 K/mm3 (4.0-10.0) 09/04/16 05:35 RBC 3.14 M/mm3 (3.60-5.2) L 09/04/16 05:35 Hgb 8.6 GM/dL (10.7-15.3) L 09/04/16 05:35 Hct 26.5 % (32.4-45.2) L 09/04/16 05:35 MCV 84.2 fl (80-96) 09/04/16 05:35 MCHC 32.6 g/dl (32.0-36.0) 09/04/16 05:35 RDW 17.6 % (11.6-15.6) H 09/04/16 05:35 Plt Count 229 K/MM3 (134-434) 09/04/16 05:35 MPV 8.4 fl (7.5-11.1) 09/04/16 05:35 CMP Sodium 138 mmol/L (136-145) 09/04/16 05:35 Potassium 3.3 mmol/L (3.5-5.1) L 09/04/16 05:35 Chloride 102 mmol/L (98-107) 09/04/16 05:35 Carbon Dioxide 30 mmol/L (21-32) 09/04/16 05:35 Anion Gap 6 (8-16) L 09/04/16 05:35 BUN 6 mg/dL (7-18) L 09/04/16 05:35 Creatinine 0.5 mg/dL (0.55-1.02) L 09/04/16 05:35 Creat Clearance w eGFR > 60 (>60) 08/30/16 17:50 Calcium 7.5 mg/dL (8.5-10.1) L 09/04/16 05:35 Total Bilirubin 0.6 mg/dL (0.2-1.0) 08/30/16 17:50 AST 34 U/L (15-37) D 08/30/16 17:50 ALT 25 U/L (12-78) 08/30/16 17:50 Alkaline Phosphatase 227 U/L (45-117) H D 08/30/16 17:50 Total Protein 7.2 g/dl (6.4-8.2) 08/30/16 17:50 Albumin 2.1 g/dl (3.4-5.0) L D 08/30/16 17:50 Microbiology 09/02/16 09:30 Gram Stain - Final Tissue-Other Tissue Culture - Preliminary Non Lactose Fermenting Gnb Group D Strep Or Entero Coccus Staphylococcus Species 09/02/16 09:30 Gram Stain - Final Bone Tissue Culture - Preliminary Non Lactose Fermenting Gnb Group D Strep Or Entero Coccus Staphylococcus Species Gram Positive Cocci 08/30/16 18:34 Gram Stain - Final Foot - Right Heel Wound Culture - Final Pseudomonas Aeruginosa Enterococcus Faecalis A/P 65yo F with PMH HTN, CML, DM, diabetic neuropathy, hypothyroid, COPD presented to the ER and admitted for R heel ulcer 1. R heel ulcer- s/p debridement on 09/02. possibility of requiring wound vac, to be re-assessed by podiatry and decision made. on Zosyn, awaiting final cx report for abx course and duration. ID and podiatry on board. cont pain control 2. hypokalemia- Kcl 40meq 3. HTN- uncontrolled. pt states shes not in pain. will start norvasc 5mg and monitor 4. Hypothyroid- cont LT4 5. DM- controlled. cont levemir, iss, bgm 6. CML- cont nilotinib 7. awaiting PT evaluation. may require NASH on discharge Visit type - Emergency Visit Emergency Visit: Yes ED Registration Date: 08/30/16 Care time: The patient presented to the Emergency Department on the above date and was hospitalized for further evaluation of their emergent condition. - New Patient This patient is new to me today: Yes Date on this admission: 09/04/16 - Critical Care Critical Care patient: No - Discharge Referral Referred to [facility] No
[2016-09-04] MEDS: GABAPENTIN 300 MG CAPSULE (FP) PO SCH ×2 (09:10→21:07)
[2016-09-04] MEDS: LISINOPRIL 20 MG TABLET (FP) PO SCH (09:10)
[2016-09-04] MEDS: NILOTINIB HCL 300 MG PO SCH ×2 (09:10→21:07)
[2016-09-04] MEDS ORDERED: POTASSIUM CHLORIDE 40 MEQ/30 ML UNIT DOSE CUP PO ONE (09:45)
[2016-09-04] MEDS: amLODIPine BESYLATE 5 MG TABLET (FP) PO SCH (09:57)
[2016-09-04] MEDS ORDERED: PT OWN MED DRAWER 7, Y5N ONE (11:07)
--- NOTE | 2016-09-04 14:10 | PN ---
Progress Note, Physician History of Present Illness: patient stable starting to ahve pain otherwise no complaints - Current Medication List Current Medications: Active Medications Acetaminophen (Tylenol -) 650 mg PO Q6H PRN PRN Reason: FEVER OR PAIN Albuterol/Ipratropium (Duoneb -) 1 amp NEB Q6H PRN PRN Reason: SHORTNESS OF BREATH Amlodipine Besylate (Norvasc -) 5 mg PO DAILY [facility] Last Admin: 09/04/16 09:57 Dose: 5 mg Docusate Sodium (Colace -) 300 mg PO HS [facility] Last Admin: 09/03/16 21:47 Dose: 300 mg Gabapentin (Neurontin -) 300 mg PO BID [facility] Last Admin: 09/04/16 09:10 Dose: 300 mg Piperacillin Sod/Tazobactam Sod (Zosyn 3.375gm Ivpb (Pre-Docked)) 50 mls @ 100 mls/hr IVPB Q8H-IV [facility] Last Admin: 09/04/16 09:10 Dose: 100 mls/hr Ampicillin Sodium 1 gm/ Sodium (Chloride) 100 mls @ 200 mls/hr IVPB Q8H-IV [facility] Insulin Aspart (Novolog Vial Sliding Scale -) 1 vial SQ ACHS [facility] PRN Reason: Protocol Last Admin: 09/04/16 12:22 Dose: 2 units Insulin Detemir (Levemir Vial) 10 units SQ [facility] Last Admin: 09/03/16 21:47 Dose: 10 units Levothyroxine Sodium (Synthroid -) 25 mcg PO DAILY@0700 [facility] Last Admin: 09/04/16 06:30 Dose: 25 mcg Lisinopril (Prinivil) 20 mg PO DAILY [facility] Last Admin: 09/04/16 09:10 Dose: 20 mg Non-Formulary Medication (Nilotinib Hcl [Tasigna]) 300 mg PO BID [facility] Last Admin: 09/04/16 09:10 Dose: 300 mg Oxycodone HCl (Roxicodone -) 10 mg PO Q4H PRN PRN Reason: PAIN Last Admin: 09/04/16 05:34 Dose: 10 mg - Objective Vital Signs: Vital Signs Temperature 98.1 F 09/04/16 13:27 Pulse Rate 74 09/04/16 13:27 Respiratory Rate 20 09/04/16 13:27 Blood Pressure 159/69 09/04/16 13:27 O2 Sat by Pulse Oximetry (%) 98 09/03/16 10:13 Constitutional: Yes: No Distress Eyes: Yes: Conjunctiva Clear HENT: Yes: Atraumatic Cardiovascular: Yes: Regular Rate and Rhythm Respiratory: Yes: Regular, CTA Bilaterally Gastrointestinal: Yes: Normal Bowel Sounds, Soft Musculoskeletal: Yes: Other Extremities: Yes: Other Wound/Incision: Yes: Dressing Dry and Intact, Other Neurological: Yes: Alert, Oriented Psychiatric: Yes: Alert, Oriented Labs: CBC, BMP 09/04/16 05:35 09/04/16 05:35 INR, PTT INR 1.36 (0.82-1.09) H 08/30/16 17:50 Assessment/Plan Problem List - Problems (1) Diabetic foot ulcer Code(s): E11.621 - TYPE 2 DIABETES MELLITUS WITH FOOT ULCER L97.509 - NON-PRESSURE CHRONIC ULCER OTH PRT UNSP FOOT W UNSP SEVERITY Qualifiers: Diabetes mellitus type: other specified (including STORM) Laterality: bilateral Qualified Code(s): E13.621 - Other specified diabetes mellitus with foot ulcer; L97.509 - Non-pressure chronic ulcer of other part of unspecified foot with unspecified severity (2) Diabetes Code(s): E11.9 - TYPE 2 DIABETES MELLITUS WITHOUT COMPLICATIONS (3) CML (chronic myelocytic leukemia) Code(s): C92.10 - CHRONIC MYELOID LEUK, BCR/ABL-POSITIVE, NOT ACHIEVE REMIS (4) Hypertension Code(s): I10 - ESSENTIAL (PRIMARY) HYPERTENSION (5) Hypothyroid Code(s): E03.9 - HYPOTHYROIDISM, UNSPECIFIED plan bone cx noted added ampicillin patient will elidia 4-6 weeks of abx will decide on how to proceed further podiatry on case
[2016-09-04] MEDS: AMPICILLIN - 1 GM in SODIUM CHLORIDE 100 ML IVPB SCH ×2 (17:26)
[2016-09-04] MEDS: INSULIN DETEMIR 100 UNITS/ML MDV SQ SCH (21:06)
[2016-09-04] MEDS: DOCUSATE SODIUM 100 MG CAPSULE (FP) PO SCH (21:06)
[2016-09-05] MEDS ORDERED: PT OWN MED DRAWER 7, Y5N ONE (01:23)
[2016-09-05] MEDS: AMPICILLIN - 1 GM in SODIUM CHLORIDE 100 ML IVPB SCH ×3 (01:31→18:09)
[2016-09-05] MEDS: PIPERACILLIN/TAZOB 3.375 GM 50 ML IVPB SCH ×3 (01:31→17:22)
[2016-09-05] MEDS: oxyCODONE HCL 5 MG TABLET PO PRN ×4 (03:11→22:19)
[2016-09-05] MEDS: INSULIN SLIDING SCALE (NOVOLOG) 1 VIAL SQ SCH ×4 (06:42→22:15)
[2016-09-05] MEDS: LEVOTHYROXINE NA 25 MCG TABLET (FP) PO SCH (06:43)
[2016-09-05 08:03] LABS: CALCIUM 7.7 mg/dL (8.5-10.1); CREATININE 0.6 mg/dL (0.55-1.02)
[2016-09-05] MEDS: amLODIPine BESYLATE 5 MG TABLET (FP) PO SCH (10:04)
[2016-09-05] MEDS: NILOTINIB HCL 300 MG PO SCH ×2 (10:04→22:14)
[2016-09-05] MEDS: LISINOPRIL 20 MG TABLET (FP) PO SCH (10:04)
[2016-09-05] MEDS: GABAPENTIN 300 MG CAPSULE (FP) PO SCH ×2 (10:04→22:12)
--- NOTE | 2016-09-05 10:16 | PN ---
Progress Note (short form) - Note Progress Note: currently asymptomatic. states heel pain is controlled well with pain medications. denies CP, SOB,fever, chills, cough, N/V/C/D Current Medications Generic Name Dose Route Start Last Admin Trade Name Freq PRN Reason Stop Dose Admin Acetaminophen 650 mg 09/02/16 09:02 Tylenol - PO Q6H PRN FEVER OR PAIN Albuterol/Ipratropium 1 amp 09/02/16 09:02 Duoneb - NEB Q6H PRN SHORTNESS OF BREATH Amlodipine Besylate 5 mg 09/04/16 10:00 09/05/16 10:04 Norvasc - PO 5 mg DAILY [facility] Administration Docusate Sodium 300 mg 09/02/16 22:00 09/04/16 21:06 Colace - PO 300 mg HS [facility] Administration Gabapentin 300 mg 09/02/16 10:00 09/05/16 10:04 Neurontin - PO 300 mg BID [facility] Administration Piperacillin Sod/Tazobactam Sod 50 mls @ 100 mls/hr 09/02/16 13:30 09/05/16 01: 31 Zosyn 3.375gm Ivpb (Pre-Docked) IVPB 100 mls/hr Q8H-IV [facility] Administration Ampicillin Sodium 1 gm/ Sodium 100 mls @ 200 mls/hr 09/04/16 14:15 09/05/16 10: 04 Chloride IVPB 200 mls/hr Q8H-IV [facility] Administration Insulin Aspart 1 vial 09/02/16 11:00 09/05/16 06:42 Novolog Vial Sliding Scale - SQ 2 units ACHS [facility] Administration Protocol Insulin Detemir 10 units 09/02/16 22:00 09/04/16 21:06 Levemir Vial SQ 10 units HS [facility] Administration Levothyroxine Sodium 25 mcg 09/03/16 07:00 09/05/16 06:43 Synthroid - PO 25 mcg DAILY@0700 [facility] Administration Lisinopril 20 mg 09/03/16 09:14 09/05/16 10:04 Prinivil PO 20 mg DAILY [facility] Administration Non-Formulary Medication 300 mg 09/02/16 22:00 09/05/16 10:04 Nilotinib Hcl [Tasigna] PO 300 mg BID [facility] Administration Oxycodone HCl 10 mg 09/03/16 16:54 09/05/16 03:11 Roxicodone - PO 10 mg Q4H PRN Administration PAIN Last Vital Signs Temp Pulse Resp BP Pulse Ox 98.1 F 75 20 151/74 98 09/05/16 10:11 09/05/16 10:11 09/05/16 10:11 09/05/16 10:11 09/04/16 09:00 General NAD, resting comfortable CV S1 S2+ Lungs CTA B/L anteriorly Extremities R foot wrapped dressing c/d/i CMP Sodium 141 mmol/L (136-145) 09/05/16 06:20 Potassium 3.4 mmol/L (3.5-5.1) L 09/05/16 06:20 Chloride 101 mmol/L (98-107) 09/05/16 06:20 Carbon Dioxide 30 mmol/L (21-32) 09/05/16 06:20 Anion Gap 10 (8-16) 09/05/16 06:20 BUN 7 mg/dL (7-18) 09/05/16 06:20 Creatinine 0.6 mg/dL (0.55-1.02) 09/05/16 06:20 Creat Clearance w eGFR > 60 (>60) 08/30/16 17:50 Calcium 7.7 mg/dL (8.5-10.1) L 09/05/16 06:20 Total Bilirubin 0.6 mg/dL (0.2-1.0) 08/30/16 17:50 AST 34 U/L (15-37) D 08/30/16 17:50 ALT 25 U/L (12-78) 08/30/16 17:50 Alkaline Phosphatase 227 U/L (45-117) H D 08/30/16 17:50 Total Protein 7.2 g/dl (6.4-8.2) 08/30/16 17:50 Albumin 2.1 g/dl (3.4-5.0) L D 08/30/16 17:50 Microbiology 09/02/16 09:30 Gram Stain - Final Tissue-Other Tissue Culture - Final Pseudomonas Aeruginosa Enterococcus Faecalis Anaerobic Culture - Final NO ANAEROBES WERE ISOLATED 09/02/16 09:30 Gram Stain - Final Bone Tissue Culture - Final Pseudomonas Aeruginosa Enterococcus Faecalis Anaerobic Culture - Final NO ANAEROBES WERE ISOLATED A/P 65yo F with PMH HTN, CML, DM, diabetic neuropathy, hypothyroid, COPD presented to the ER and admitted for R heel ulcer 1. R heel ulcer- s/p debridement on 09/02. possibility of requiring wound vac, to be re-assessed by podiatry and decision made today. 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 will need PICC line placement. Awaiting PT eval. notified SW of need for NASH placement which pt is agreement with. MOHIT and referrals to be sent out today. cont pain control 2. hypokalemia- Kcl 40meq 3. HTN- improved. started on norvasc yesterday, titrate to optimize BP. cont lisinopril 4. Hypothyroid- cont LT4 5. DM- controlled. cont levemir, iss, bgm 6. CML- cont nilotinib 7. awaiting PT evaluation. will benefit from NASH rehab. awaiting determination if wound vac required Visit type - Emergency Visit Emergency Visit: Yes ED Registration Date: 08/30/16 Care time: The patient presented to the Emergency Department on the above date and was hospitalized for further evaluation of their emergent condition. - New Patient This patient is new to me today: No - Critical Care Critical Care patient: No - Discharge Referral Referred to [facility] No
[2016-09-05] MEDS ORDERED: POTASSIUM CHLORIDE 40 MEQ/30 ML UNIT DOSE CUP PO ONE (10:45)
[2016-09-05] MEDS ORDERED: INSULIN (NOVOLOG) ASPART 100 UNITS/ML 10ML VIAL ONE ×2 (12:07→17:18)
[2016-09-05] MEDS: DOCUSATE SODIUM 100 MG CAPSULE (FP) PO SCH (22:10)
[2016-09-05] MEDS: INSULIN DETEMIR 100 UNITS/ML MDV SQ SCH (22:11)
[2016-09-06] MEDS: AMPICILLIN - 1 GM in SODIUM CHLORIDE 100 ML IVPB SCH ×2 (01:24→10:17)
[2016-09-06] MEDS: PIPERACILLIN/TAZOB 3.375 GM 50 ML IVPB SCH ×2 (01:41→10:29)
[2016-09-06] MEDS: INSULIN SLIDING SCALE (NOVOLOG) 1 VIAL SQ SCH ×3 (06:21→16:55)
[2016-09-06] MEDS: LEVOTHYROXINE NA 25 MCG TABLET (FP) PO SCH (06:21)
[2016-09-06] MEDS ORDERED: PT OWN MED DRAWER 7, Y5N ONE ×3 (06:26→17:50)
[2016-09-06] MEDS: oxyCODONE HCL 5 MG TABLET PO PRN ×3 (06:28→16:52)
[2016-09-06] MEDS ORDERED: INSULIN (NOVOLOG) ASPART 100 UNITS/ML 10ML VIAL ONE ×2 (06:37→11:56)
[2016-09-06 07:42] LABS: CALCIUM 7.8 mg/dL (8.5-10.1); CREATININE 0.6 mg/dL (0.55-1.02)
--- NOTE | 2016-09-06 09:27 | PN ---
Progress Note (short form) - Note Progress Note: Podiatry: Seen and evaluated at bedside, NAD. Pain controlled, denies F/V/N/C/SOB/CP. S/ p R heel debridement/lavage with bone biopsy. Afebrile, VSS. MELANI: R foot: dressing C/D/I, serous drainage. No active bleeding, no bandage strikethrough. Post-surgical wound inferior aspect of heel. Mixed fibrogranular base, mostly fibrotic. Probes deep. No purulence, erytehma resolved, no fluctuance, no soft tissue crepitus, no signs of acute infection. Minimal tenderness to palpation of surgical site. Sutures well coapted. WBC: 8.1 OR Bone Cx: E. Faecalis, pseudomonas Imp: 65 year old DM F s/p R heel debridement/lavage, bone biopsy 1. C/w IV abx per ID 2. 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 Dispo to SNF 4. VAC as outpatient 5. Will f/u with me 09/13/16 at [facility] 6. No further podiatric intervention at this time. Pod stable for d/c to SNF. Michaela Farmer DPM
[2016-09-06] MEDS: NILOTINIB HCL 300 MG PO SCH (10:17)
[2016-09-06] MEDS: LISINOPRIL 20 MG TABLET (FP) PO SCH (10:17)
[2016-09-06] MEDS: amLODIPine BESYLATE 5 MG TABLET (FP) PO SCH (10:17)
[2016-09-06] MEDS: GABAPENTIN 300 MG CAPSULE (FP) PO SCH (10:17)
[2016-09-06] MEDS ORDERED: PICC LINE 8 ML FLUSH PROTOCOL IVPUSH PRN (10:19)
--- NOTE | 2016-09-06 13:18 | PATH ---
Surgical Pathology Report Patient Name: XIAO HAGEN Med. Rec. #: [id number] /Age/Gender: 1950 (Age: 65) / F Account: [id number] Location: [facility] Taken: 09/02/2016 Received: 09/02/2016 Reported: 09/06/2016 Physicians: Meghna Wray DPM Specimen(s) Received A: RIGHT HEEL DEBRIDED TISSUE B: RIGHT HEEL BONE BIOPSY Clinical History Diabetic foot ulcer Final Diagnosis A. SOFT TISSUE, LEFT HEEL, DEBRIDEMENT: GANGRENOUS NECROSIS. MINUTE FRAGMENT OF BONE WITH ACUTE OSTEOMYELITIS PRESENT. B. BONE, RIGHT HEEL, BIOPSY: FIBROCARTILAGINOUS TISSUE WITH AREAS SUGGESTIVE OF GANGRENOUS NECROSIS. SCANT MINUTE SPICULES OF BONE PRESENT WITH NO DEFINITE OSTEOMYELITIS IDENTIFIED. Comment: Recommend correlation with clinical and radiologic findings and follow up as clinically indicated. Electronically Signed Alessandro Agee M.D. Gross Description A. Received in formalin, labeled "left heel debrided tissue" is a 3.0 x 2.0 with 1.0 cm fragments of mcnamara focally necrotic soft tissue. [employer] sections submitted one cassette. B. Received in formalin, labeled "right heel bone biopsy" is a 0.5 cm in greatest dimension fragment of mcnamara bone. The specimen is entirely submitted one cassette following decalcification. AF/09/02/2016 final/09/02/2016
--- NOTE | 2016-09-06 13:24 | PN ---
Progress Note, Physician History of Present Illness: doing much better sister in room patient feels much better - Current Medication List Current Medications: Active Medications Acetaminophen (Tylenol -) 650 mg PO Q6H PRN PRN Reason: FEVER OR PAIN Albuterol/Ipratropium (Duoneb -) 1 amp NEB Q6H PRN PRN Reason: SHORTNESS OF BREATH Amlodipine Besylate (Norvasc -) 5 mg PO DAILY [facility] Last Admin: 09/06/16 10:17 Dose: 5 mg Docusate Sodium (Colace -) 300 mg PO HS [facility] Last Admin: 09/05/16 22:10 Dose: 300 mg Gabapentin (Neurontin -) 300 mg PO BID [facility] Last Admin: 09/06/16 10:17 Dose: 300 mg IV Flush (Picc Line Flush) 8 ml IVPUSH PRN PRN PRN Reason: Protocol Piperacillin Sod/Tazobactam Sod (Zosyn 3.375gm Ivpb (Pre-Docked)) 50 mls @ 100 mls/hr IVPB Q8H-IV [facility] Last Admin: 09/06/16 10:29 Dose: 100 mls/hr Ampicillin Sodium 1 gm/ Sodium (Chloride) 100 mls @ 200 mls/hr IVPB Q8H-IV [facility] Last Admin: 09/06/16 10:17 Dose: 200 mls/hr Insulin Aspart (Novolog Vial Sliding Scale -) 1 vial SQ ACHS [facility] PRN Reason: Protocol Last Admin: 09/06/16 12:00 Dose: 2 units Insulin Detemir (Levemir Vial) 10 units SQ [facility] Last Admin: 09/05/16 22:11 Dose: 10 units Levothyroxine Sodium (Synthroid -) 25 mcg PO DAILY@0700 [facility] Last Admin: 09/06/16 06:21 Dose: 25 mcg Lisinopril (Prinivil) 20 mg PO DAILY [facility] Last Admin: 09/06/16 10:17 Dose: 20 mg Non-Formulary Medication (Nilotinib Hcl [Tasigna]) 300 mg PO BID [facility] Last Admin: 09/06/16 10:17 Dose: 300 mg Oxycodone HCl (Roxicodone -) 10 mg PO Q4H PRN PRN Reason: PAIN Last Admin: 09/06/16 10:20 Dose: 10 mg - Objective Vital Signs: Vital Signs Temperature 99 F 09/06/16 06:24 Pulse Rate 75 09/06/16 06:24 Respiratory Rate 20 09/06/16 06:24 Blood Pressure 159/75 09/06/16 06:24 O2 Sat by Pulse Oximetry (%) 96 09/05/16 21:00 Constitutional: Yes: No Distress, Calm Neck: Yes: Supple Cardiovascular: Yes: Regular Rate and Rhythm Respiratory: Yes: Regular, CTA Bilaterally Gastrointestinal: Yes: Normal Bowel Sounds, Soft Musculoskeletal: Yes: Other Extremities: Yes: Other Wound/Incision: Yes: Dressing Dry and Intact Neurological: Yes: Alert, Oriented Psychiatric: Yes: Alert Labs: CBC, BMP 09/04/16 05:35 09/06/16 06:00 INR, PTT INR 1.36 (0.82-1.09) H 08/30/16 17:50 Assessment/Plan Problem List - Problems (1) Diabetic foot ulcer Code(s): E11.621 - TYPE 2 DIABETES MELLITUS WITH FOOT ULCER L97.509 - NON-PRESSURE CHRONIC ULCER OTH PRT UNSP FOOT W UNSP SEVERITY Qualifiers: Diabetes mellitus type: other specified (including STORM) Laterality: bilateral Qualified Code(s): E13.621 - Other specified diabetes mellitus with foot ulcer; L97.509 - Non-pressure chronic ulcer of other part of unspecified foot with unspecified severity (2) Diabetes Code(s): E11.9 - TYPE 2 DIABETES MELLITUS WITHOUT COMPLICATIONS (3) CML (chronic myelocytic leukemia) Code(s): C92.10 - CHRONIC MYELOID LEUK, BCR/ABL-POSITIVE, NOT ACHIEVE REMIS (4) Hypertension Code(s): I10 - ESSENTIAL (PRIMARY) HYPERTENSION (5) Hypothyroid Code(s): E03.9 - HYPOTHYROIDISM, UNSPECIFIED plan bone cx noted added ampicillin patient will elidia 4-6 weeks of abx will decide on how to proceed further podiatry on case patient should get a picc line
--- NOTE | 2016-09-06 13:25 | PN ---
Progress Note, Physician History of Present Illness: stable podiatry note noted patient has no complaints - Current Medication List Current Medications: Active Medications Acetaminophen (Tylenol -) 650 mg PO Q6H PRN PRN Reason: FEVER OR PAIN Albuterol/Ipratropium (Duoneb -) 1 amp NEB Q6H PRN PRN Reason: SHORTNESS OF BREATH Amlodipine Besylate (Norvasc -) 5 mg PO DAILY [facility] Last Admin: 09/06/16 10:17 Dose: 5 mg Docusate Sodium (Colace -) 300 mg PO HS [facility] Last Admin: 09/05/16 22:10 Dose: 300 mg Gabapentin (Neurontin -) 300 mg PO BID [facility] Last Admin: 09/06/16 10:17 Dose: 300 mg IV Flush (Picc Line Flush) 8 ml IVPUSH PRN PRN PRN Reason: Protocol Piperacillin Sod/Tazobactam Sod (Zosyn 3.375gm Ivpb (Pre-Docked)) 50 mls @ 100 mls/hr IVPB Q8H-IV [facility] Last Admin: 09/06/16 10:29 Dose: 100 mls/hr Ampicillin Sodium 1 gm/ Sodium (Chloride) 100 mls @ 200 mls/hr IVPB Q8H-IV [facility] Last Admin: 09/06/16 10:17 Dose: 200 mls/hr Insulin Aspart (Novolog Vial Sliding Scale -) 1 vial SQ ACHS [facility] PRN Reason: Protocol Last Admin: 09/06/16 12:00 Dose: 2 units Insulin Detemir (Levemir Vial) 10 units SQ [facility] Last Admin: 09/05/16 22:11 Dose: 10 units Levothyroxine Sodium (Synthroid -) 25 mcg PO DAILY@0700 [facility] Last Admin: 09/06/16 06:21 Dose: 25 mcg Lisinopril (Prinivil) 20 mg PO DAILY [facility] Last Admin: 09/06/16 10:17 Dose: 20 mg Non-Formulary Medication (Nilotinib Hcl [Tasigna]) 300 mg PO BID [facility] Last Admin: 09/06/16 10:17 Dose: 300 mg Oxycodone HCl (Roxicodone -) 10 mg PO Q4H PRN PRN Reason: PAIN Last Admin: 09/06/16 10:20 Dose: 10 mg - Objective Vital Signs: Vital Signs Temperature 99 F 09/06/16 06:24 Pulse Rate 75 09/06/16 06:24 Respiratory Rate 20 09/06/16 06:24 Blood Pressure 159/75 09/06/16 06:24 O2 Sat by Pulse Oximetry (%) 96 09/05/16 21:00 Constitutional: Yes: No Distress, Calm Cardiovascular: Yes: Regular Rate and Rhythm Respiratory: Yes: Regular, CTA Bilaterally Gastrointestinal: Yes: Normal Bowel Sounds, Soft Musculoskeletal: Yes: WNL Extremities: Yes: Other Wound/Incision: Yes: Dressing Dry and Intact Neurological: Yes: Alert, Oriented Psychiatric: Yes: Alert Labs: CBC, BMP 09/04/16 05:35 09/06/16 06:00 INR, PTT INR 1.36 (0.82-1.09) H 08/30/16 17:50 Assessment/Plan Problem List - Problems (1) Diabetic foot ulcer Code(s): E11.621 - TYPE 2 DIABETES MELLITUS WITH FOOT ULCER L97.509 - NON-PRESSURE CHRONIC ULCER OTH PRT UNSP FOOT W UNSP SEVERITY Qualifiers: Diabetes mellitus type: other specified (including STORM) Laterality: bilateral Qualified Code(s): E13.621 - Other specified diabetes mellitus with foot ulcer; L97.509 - Non-pressure chronic ulcer of other part of unspecified foot with unspecified severity (2) Diabetes Code(s): E11.9 - TYPE 2 DIABETES MELLITUS WITHOUT COMPLICATIONS (3) CML (chronic myelocytic leukemia) Code(s): C92.10 - CHRONIC MYELOID LEUK, BCR/ABL-POSITIVE, NOT ACHIEVE REMIS (4) Hypertension Code(s): I10 - ESSENTIAL (PRIMARY) HYPERTENSION (5) Hypothyroid Code(s): E03.9 - HYPOTHYROIDISM, UNSPECIFIED plan bone cx noted added ampicillin patient will elidia 4-6 weeks of abx picc line today rest ct current mgmt
--- NOTE | 2016-09-06 13:44 | PN ---
Physical Exam: SUBJECTIVE: Patient seen and examined at bedside. She does not have any complaint and denies chest pain, foot pain, sob, n/v, fever or chills. OBJECTIVE: Vital Signs Period Temp Pulse Resp BP Sys/Machado Pulse Ox Last 24 Hr 98.6 F-99 F 75-84 20-20 158-159/74-75 96 GENERAL: The patient is awake, alert, and fully oriented, in no acute distress. HEAD: Normal with no signs of trauma. EYES: PERRL, extraocular movements intact, sclera anicteric, conjunctiva clear. No ptosis. ENT: Ears normal, nares patent, oropharynx clear without exudates, moist mucous membranes. NECK: Trachea midline, full range of motion, supple. LUNGS: Breath sounds equal, clear to auscultation bilaterally, no wheezes, no crackles, no accessory muscle use. HEART: Regular rate and rhythm, S1, S2 without murmur, rub or gallop. ABDOMEN: Soft, nontender, nondistended, normoactive bowel sounds, no guarding, no rebound, no hepatosplenomegaly, no masses. EXTREMITIES: dressing in place on R heel, clean, non draining, no bleeding NEUROLOGICAL: Cranial nerves II through XII grossly intact. Normal speech, gait not observed. PSYCH: Normal mood, normal affect. SKIN: Warm, dry, normal turgor, no rashes or lesions noted Laboratory Results - last 24 hr 09/05/16 09/05/16 09/06/16 17:16 22:09 05:19 Sodium Potassium Chloride Carbon Dioxide Anion Gap BUN Creatinine POC Glucometer 169 198 182 Random Glucose Calcium 09/06/16 09/06/16 06:00 11:51 Sodium 138 Potassium 3.9 Chloride 99 Carbon Dioxide 29 Anion Gap 10 BUN 7 Creatinine 0.6 POC Glucometer 174 Random Glucose 169 H Calcium 7.8 L Active Medications Generic Name Dose Route Start Last Admin Trade Name Freq PRN Reason Stop Dose Admin Acetaminophen 650 mg 09/02/16 09:02 Tylenol - PO Q6H PRN FEVER OR PAIN Albuterol/Ipratropium 1 amp 09/02/16 09:02 Duoneb - NEB Q6H PRN SHORTNESS OF BREATH Amlodipine Besylate 5 mg 09/04/16 10:00 09/06/16 10:17 Norvasc - PO 5 mg DAILY [facility] Administration Docusate Sodium 300 mg 09/02/16 22:00 09/05/16 22:10 Colace - PO 300 mg HS [facility] Administration Gabapentin 300 mg 09/02/16 10:00 09/06/16 10:17 Neurontin - PO 300 mg BID [facility] Administration IV Flush 8 ml 09/06/16 10:19 Picc Line Flush IVPUSH PRN PRN Protocol Piperacillin Sod/Tazobactam Sod 50 mls @ 100 mls/hr 09/02/16 13:30 09/06/16 10: 29 Zosyn 3.375gm Ivpb (Pre-Docked) IVPB 100 mls/hr Q8H-IV [facility] Administration Ampicillin Sodium 1 gm/ Sodium 100 mls @ 200 mls/hr 09/04/16 14:15 09/06/16 10: 17 Chloride IVPB 200 mls/hr Q8H-IV [facility] Administration Insulin Aspart 1 vial 09/02/16 11:00 09/06/16 12:00 Novolog Vial Sliding Scale - SQ 2 units ACHS [facility] Administration Protocol Insulin Detemir 10 units 09/02/16 22:00 09/05/16 22:11 Levemir Vial SQ 10 units HS [facility] Administration Levothyroxine Sodium 25 mcg 09/03/16 07:00 09/06/16 06:21 Synthroid - PO 25 mcg DAILY@0700 [facility] Administration Lisinopril 20 mg 09/03/16 09:14 09/06/16 10:17 Prinivil PO 20 mg DAILY [facility] Administration Non-Formulary Medication 300 mg 09/02/16 22:00 09/06/16 10:17 Nilotinib Hcl [Tasigna] PO 300 mg BID [facility] Administration Oxycodone HCl 10 mg 09/03/16 16:54 09/06/16 10:20 Roxicodone - PO 10 mg Q4H PRN Administration PAIN ASSESSMENT/PLAN: 65 yo F admitted for R heel ulcer. R heel ulcer s/p debridement - PICC line tomorrow - ampicillin 1g and zosyn 3.375g x 4-6 weeks - wound vac and regular follow up with podiatry as outpatient - awaiting PT eval Hypokalemia - resolved HTN - cont. norvasc and lisinopril Hypothyroid - cont synthroid 25mcg PO daily DM - cont levemir 10 units SQ HS and sliding scale CML - cont nilotinib FEN - not indicated - normal lytes - sodium/diabetic diet Prophylaxis - DVT: SCD - GI: not indicated - deconditioning: awaiting PT eval Visit type - Emergency Visit Emergency Visit: No - New Patient This patient is new to me today: Yes Date on this admission: 09/06/16 - Critical Care Critical Care patient: No - Discharge Referral Referred to [facility] Med P.C.: No
[2016-09-06 14:31] VITALS: BP 148/62; PULSE 78; TEMP 98.1
[2016-09-06] MEDS ORDERED: IBUPROFEN 400 MG TABLET (FP) PO ONE (15:22)
--- NOTE | 2016-09-06 18:13 | PN ---
Teaching Attending Note Name of Resident: Filemon Delarosa ATTENDING PHYSICIAN STATEMENT I saw and evaluated the patient. I reviewed the resident's note and discussed the case with the resident. I agree with the resident's findings and plan as documented. SUBJECTIVE: seen and evaluated at the bedside OBJECTIVE: foot wrapped in dressing ASSESSMENT AND PLAN: 65 year old woman admitted for osteomylelitis -s/p surgical debridement by Podiatry -cultures grew pseudomonas and enterococcus -improved on zosyn; ampicillin was added by ID attending and this is the regimen that was planned for patient at intermediate via PICC line - VAC as outpatient -for follow up with Podiatry 09/13/16 at [facility] [place]
== END 2016-09-06 18:53 | DRG 623 ==
LOC: JER 16:59 → JERBED 22:10 → J7W 08-31 00:12
PROVIDERS: ADMIT Internal Medicine; ATTEND Internal Medicine
PROC: 0JBQ0ZZ Excision of Right Foot Subcutaneous Tissue and Fascia, Open Approach (ICD-10-PCS; principal; 2016-09-01)
PROC: 0JBQ0ZZ Excision of Right Foot Subcutaneous Tissue and Fascia, Open Approach (ICD-10-PCS; 2016-09-02)
PROC: 0QBL0ZX Excision of Right Tarsal, Open Approach, Diagnostic (ICD-10-PCS; 2016-09-02)
PROC: 3E10X8Z Irrigation of Skin and Mucous Membranes using Irrigating Substance (ICD-10-PCS; 2016-09-02)
PROC: 02HV33Z Insertion of Infusion Device into Superior Vena Cava, Percutaneous Approach (ICD-10-PCS; 2016-09-06)
DX: E11.621 Type 2 diabetes mellitus with foot ulcer (principal); C92.10 Chronic myeloid leukemia, BCR/ABL-positive, not having achieved remission; L97.419 Non-pressure chronic ulcer of right heel and midfoot with unspecified severity; M86.171 Other acute osteomyelitis, right ankle and foot; I10 Essential (primary) hypertension; E78.5 Hyperlipidemia, unspecified; E11.40 Type 2 diabetes mellitus with diabetic neuropathy, unspecified; J44.9 Chronic obstructive pulmonary disease, unspecified; E03.9 Hypothyroidism, unspecified; K76.0 Fatty (change of) liver, not elsewhere classified; F41.8 Other specified anxiety disorders; Z87.891 Personal history of nicotine dependence; E11.65 Type 2 diabetes mellitus with hyperglycemia; E87.6 Hypokalemia
CPT/HCPCS: 36415; 36569; 71010-TC; 73630-TC-RT; 77001-TC; 80048; 80053; 81003; 81015; 82550; 83036; 83735; 83880; 84100; 84443; 84484; 85025; 85027; 85610; 85651; 86140; 86850; 86900; 86901; 87070; 87075; 87086; 87186; 87205; 88304-TC; 88311-TC; 93005; 93010; 94760; 97001-GP; 97116-GP; 99282-25; C1751

== ENCOUNTER 2017-03-14 12:53 | Emergency (ER) | payer OTHER, MEDICARE ==
[2017-03-14] MEDS ORDERED: FUROSEMIDE 40 MG/4 ML INJECTABLE VIAL IVPUSH ONE (13:42)
--- NOTE | 2017-03-14 13:53 | PDOC ---
History of Present Illness - General History Source: Patient Exam Limitations: No Limitations - History of Present Illness Initial Comments: 03/14/17 13:58 The patient is a 66 year old female, with a significant past medical history of HTN, HLD, DM, diabetic neuropathy, COPD, CML, hypothyroidism, fatty liver, and anxiety, who presents to the emergency department with SOB for the past 1-2 months. The patient reports about 1-2 months ago being diagnosed with bronchitis and pneumonia. She reports being prescribed antibiotics, nebulizer treatments, and put on O2 treatments. She reports since then having no alleviation of her SOB and notes continued productive cough, bringing up yellow pus. She denies recent fevers, chills, headache or dizziness. She denies recent nausea, vomit, or diarrhea. She denies recent dysuria, frequency, urgency or hematuria. She denies recent chest pain. Allergies: NKA Past surgical history: None reported. Social history: Nonsmoker. Denies EtOH use and recreational drug use. Primary Care Physician: <Tony Farah - Last Filed: 03/14/17 13:58> <Felicitas Calixto - Last Filed: 03/14/17 18:49> - General Chief Complaint: Shortness of Breath Stated Complaint: Shortness of Breath Time Seen by Provider: 03/14/17 13:04 Past History <Tony Farah - Last Filed: 03/14/17 13:58> - Past Medical History Anemia: No Asthma: No Cancer: (CML) Cardiac Disorders: No CVA: No COPD: Yes CHF: No Dementia: No Diabetes: Yes GI Disorders: No Disorders: Yes (uti) HTN: Yes Hypercholesterolemia: Yes (BORDERLINE) Liver Disease: Yes (fatty liver) Psychiatric Problems: Yes (ANXIETY.) Suicide Attempt (Hx): No Seizures: No Thyroid Disease: Yes (HYPO) - Surgical History Abdominal Surgery: Yes (hernia) Cardiac Surgery: No Cholecystectomy: Yes Lung Surgery: No Neurologic Surgery: No Orthopedic Surgery: No - Immunization History Immunization Up to Date: Yes - Psycho/Social/Smoking Cessation Hx Anxiety: No Suicidal Ideation: No Smoking Status: Yes Smoking History: Never smoked Have you smoked in the past 12 months: No Number of Cigarettes Smoked Daily: 0 If you are a former smoker, when did you quit?: 2014 Cigars Per Day: 0 'Breaking Loose' booklet given: 02/28/12 Hx Alcohol Use: No Drug/Substance Use Hx: No Substance Use Type: None Hx Substance Use Treatment: No <Felicitas Calixto - Last Filed: 03/14/17 18:49> - Past Medical History Allergies/Adverse Reactions: Allergies Allergy/AdvReac Type Severity Reaction Status Date / Time metoprolol Allergy Intermediate Rash Verified 03/14/17 13:23 Home Medications: Ambulatory Orders Levothyroxine [Synthroid -] 25 mcg PO DAILY 02/19/15 Albuterol Sulfate Inhaler - [Ventolin HFA Inhaler -] 2 inh IH Q6H PRN 04/11/16 Acetaminophen [Tylenol .Regular Strength -] 650 mg PO Q4H PRN #0 tablet Oxycodone HCl [Roxicodone -] 10 mg PO Q4H PRN #0 tablet MDD 60mg 06/28/16 Miscellaneous Medical Supply [Wound Vac -] 1 each [facility] ASDIR #1 unit 09/06/16 Amlodipine Besylate [Norvasc -] 1 tab PO DAILY 11/22/16 Insulin (Levemir) [Levemir Flexpen -] 10 units SQ HS 11/22/16 Lisinopril [Prinivil] 1 tab PO DAILY 11/22/16 Metformin HCl 1 tab PO BID 11/22/16 Nilotinib HCl [Tasigna] 1 cap PO BID 11/22/16 Docusate Sodium [Colace -] 100 mg PO TID 03/14/17 Doxycycline Hyclate [Vibramycin] 100 mg PO BID #14 capsule 03/14/17 Review of Systems - Review of Systems Able to Perform ROS?: Yes Comments:: 03/14/17 13:59 GENERAL/CONSTITUTIONAL: No: fever, chills, weakness, loss of appetite. HEAD, EYES, EARS, NOSE AND THROAT: No: change in vision, ear pain, discharge, sore throat, throat swelling. CARDIOVASCULAR: No: chest pain, lightheadedness, palpitations, syncope RESPIRATORY: +: cough, shortness of breath No: wheezing, hemoptysis, stridor. GASTROINTESTINAL: No: nausea, vomiting, diarrhea, abdominal cramping, rectal bleeding, constipation. GENITOURINARY: No: dysuria, hematuria, frequency, urgency, flank pain. MUSCULOSKELETAL: No: back pain, neck pain, joint pain, muscle swelling or pain SKIN : No: lesions, pallor, rash or easy bruising. NEUROLOGIC: No: headache, vertigo, paresthesias, weakness ENDOCRINE: No: unexplained weight gain or loss HEMATOLOGIC/LYMPHATIC: No: anemia, easy bleeding, swelling nodes. <Tony Farah - Last Filed: 03/14/17 13:58> *Physical Exam - Vital Signs Last Vital Signs Temp Pulse Resp BP Pulse Ox 98.4 F 79 20 148/64 94 L 03/14/17 13:18 03/14/17 13:18 03/14/17 13:18 03/14/17 13:18 03/14/17 13:18 - Physical Exam Comments: 03/14/17 13:59 GENERAL: The patient is in no acute distress. Obese HEAD: Normal with no signs of trauma. EYES: PERRLA, EOMI, sclera anicteric, conjunctiva clear. ENT: Ears normal, nares patent, oropharynx clear without exudates. Moist mucous membranes. NECK: Normal range of motion, supple without lymphadenopathy, JVD, or masses. LUNGS: Good movement of air, except bases fine rales vs crackles. HEART: Regular rate and rhythm, normal S1 and S2 without murmur, rub or gallop. ABDOMEN: Soft, nontender, normoactive bowel sounds. No guarding, no rebound. No masses palpable. EXTREMITIES: Pitting edema bilaterally at thighs. Chronic lower leg wound. Compression boots on calf bilaterally. NEUROLOGICAL: Cranial nerves II through XII grossly intact. Normal speech. No focal neurological deficits. MUSCULOSKELETAL: Back non-tender to palpation, no CVA tenderness SKIN: Warm, Dry, normal turgor, no rashes or lesions noted. <Tony Farah - Last Filed: 03/14/17 13:58> - Vital Signs Last Vital Signs Temp Pulse Resp BP Pulse Ox 98.4 F 79 20 148/64 94 L 03/14/17 13:18 03/14/17 13:18 03/14/17 13:18 03/14/17 13:18 03/14/17 13:18 <Felicitas Calixto - Last Filed: 03/14/17 18:49> ED Treatment Course - LABORATORY CBC & Chemistry Diagram: 03/14/17 13:40 03/14/17 13:40 <Felicitas Calixto - Last Filed: 03/14/17 18:49> Medical Decision Making - Medical Decision Making 03/14/17 18:08 Pt comes with SOB; Sent by Dr. Farmer, as she has SOB that is not getting better despite abx. She sees him for her CLL, and she is on oral chemo. Pt is afebrile; she has DM. He has been on O2. Pt's PMD is Donta. Pt thinks that she has a pneumonia 03/14/17 18:46 Pt has pitting edema, up to her thighs, and she skipped a few doses of her oral lasix, so I sent off labs. BNP is normal. Labs normal CXR shows a pneumonia. Pt will go home with sulaiman and she will follow with Dr. Longo, PMD. I discussed this plan with Donta and he agrees. <Felicitas Calixto - Last Filed: 03/14/17 18:49> *DC/Admit/Observation/Transfer - Attestations Scribe Attestion: 03/14/17 14:00 Documentation prepared by Tony Farah, acting as medical director of hospice for Felicitas Calixto MD. <Tony Farah - Last Filed: 03/14/17 13:58> - Discharge Dispostion Admit: No <Felicitas Calixto - Last Filed: 03/14/17 18:49> Diagnosis at time of Disposition: Pneumonia - Discharge Dispostion Disposition: HOME Condition at time of disposition: Improved - Prescriptions Prescriptions: Doxycycline Hyclate [Vibramycin] 100 mg PO BID #14 capsule - Patient Instructions Printed Discharge Instructions: Pneumonia-Adult
[2017-03-14 14:01] LABS: BASOPHIL 0.6 % (0-2.0); EOSINOPHIL 3.6 % (0-4.5); MCH 28.9 pg (25.7-33.7); MCHC 32.1 g/dl (32.0-36.0); MEAN PLT VOLUME 7.7 fl (7.5-11.1); NEUTROPHILS 74.6 % (42.8-82.8); PLATELET COUNT 166 K/MM3 (134-434); RDW 20.8 % (11.6-15.6); WHITE BLOOD COUNT 6.3 K/mm3 (4.0-10.0)
[2017-03-14 14:02] VITALS: BMI 41.4
[2017-03-14] MEDS ORDERED: FUROSEMIDE 40 MG/4 ML INJECTABLE VIAL ONE (14:04)
[2017-03-14] MEDS ORDERED: DOXYCYCLINE INJECTION 100 MG in DEXTROSE 5%-WATER - 150 ML IVPB ONE (14:18)
[2017-03-14] MEDS ORDERED: DEXTROSE 5% IVPB ONE (14:21)
[2017-03-14] MEDS ORDERED: WATER IVPB ONE (14:21)
[2017-03-14] MEDS ORDERED: DOXYCYCLINE IVPB ONE (14:21)
[2017-03-14] MEDS ORDERED: DOXYCYCLINE INJECTION 100 MG in DEXTROSE 5%-WATER - 100 ML IVPB ONE (14:23)
[2017-03-14 14:28] LABS: ALBUMIN 2.9 g/dl (3.4-5.0); ANION GAP 8 (8-16); BILIRUBIN,TOTAL 0.5 mg/dL (0.2-1.0); CALCIUM 8.6 mg/dL (8.5-10.1); CO2 27 mmol/L (21-32); CREATININE 0.6 mg/dL (0.55-1.02); GLUCOSE,RANDOM 133 mg/dL (74-106); SGOT/AST 30 U/L (15-37); SGPT/ALT 25 U/L (12-78); TOT PROT 7.6 g/dl (6.4-8.2)
[2017-03-14 14:29] LABS: ALK PHOS 151 U/L (45-117)
[2017-03-14 16:09] VITALS: BP 155/74; PULSE 80; TEMP 98
--- NOTE | 2017-03-14 16:51 | EKG ---
Test Reason : Blood Pressure : / mmHG Vent. Rate : 077 BPM Atrial Rate : 312 BPM P-R Int : 000 ms QRS Dur : 086 ms QT Int : 380 ms P-R-T Axes : 000 008 033 degrees QTc Int : 430 ms POOR DATA QUALITY, INTERPRETATION MAY BE ADVERSELY AFFECTED ATRIAL RHYTHM IS UNCERTAIN, POSSIBILY SINUS POSSIBLE ANTERIOR INFARCT , AGE UNDETERMINED ABNORMAL ECG COMPAREDTO JUNCTIONAL RHYTHM HAS REPLACED SINUS RHYTHM Confirmed by ELAINE HERNADEZ MD ([id number]) on 03/14/2017 4:50:55 PM Referred By: Confirmed By:ELAINE HERNADEZ MD
== END 2017-03-14 16:10 | disposition home or self-care (01) ==
LOC: JER 12:53
DX: J18.9 Pneumonia, unspecified organism (principal); I10 Essential (primary) hypertension; E78.00 Pure hypercholesterolemia, unspecified; E11.42 Type 2 diabetes mellitus with diabetic polyneuropathy; Z79.4 Long term (current) use of insulin; Z79.84 Long term (current) use of oral hypoglycemic drugs; J44.9 Chronic obstructive pulmonary disease, unspecified; C92.10 Chronic myeloid leukemia, BCR/ABL-positive, not having achieved remission; E03.9 Hypothyroidism, unspecified
CPT/HCPCS: 11042; 11045; 36415; 71010-TC; 80053; 83880; 85025; 93005; 93010; 96365; 99284-25

== ENCOUNTER 2017-04-19 21:23 | Inpatient (IN) | payer OTHER ==
[2017-04-19 21:38] VITALS: BMI 43.4
[2017-04-19] MEDS ORDERED: SODIUM CHLORIDE 0.9% 1000 ML INFUS.BAG IV PRN (22:21)
--- NOTE | 2017-04-19 22:23 | PDOC ---
History of Present Illness - General History Source: Jail Records Exam Limitations: Clinical Condition - History of Present Illness Initial Comments: 04/19/17 22:34 The patient is a 66 year old female, resident of [facility], with a significant past medical history of HTN, HLD, DM, diabetic neuropathy, Diabetic Foot Ulcer, COPD, CML, hypothyroidism, fatty liver, and anxiety who presents to the ED with complaints of generalized malaise since earlier today. As per longterm records, the patient has an increased in generalized malaise and generalized weakness. detention records sates the patient was continuously yawning and drowsy earlier today. As per longterm records, patient had a fever of 101 F. This HPI is limited secondary to patients clinical condition. <Je Daugherty - Last Filed: 04/20/17 00:53> - General History Source: Patient <Rolando Randle - Last Filed: 04/20/17 19:31> - General Chief Complaint: SIRS, Suspected/Possible Stated Complaint: ELEVATED TEMPERATRE Time Seen by Provider: 04/19/17 22:20 Past History <Je Daugherty - Last Filed: 04/20/17 00:53> - Past Medical History Anemia: Yes Asthma: No Cancer: (CML) Cardiac Disorders: No CVA: No COPD: Yes CHF: No DVT: Yes Dementia: No Diabetes: Yes (diabetic foot ulcer) GI Disorders: No Disorders: Yes (uti) HTN: Yes Hypercholesterolemia: Yes (BORDERLINE) Liver Disease: Yes (fatty liver) Psychiatric Problems: Yes (depression) Suicide Attempt (Hx): No Seizures: No Thyroid Disease: Yes (HYPO) Other medical history: chronic myeloid leukemia, chronic bronchitis - Surgical History Abdominal Surgery: Yes (hernia) Cardiac Surgery: No Cholecystectomy: Yes Lung Surgery: No Neurologic Surgery: No Orthopedic Surgery: No - Immunization History Immunization Up to Date: Yes - Psycho/Social/Smoking Cessation Hx Anxiety: No Suicidal Ideation: No Smoking Status: Yes Smoking History: Unknown if ever smoked Have you smoked in the past 12 months: No Number of Cigarettes Smoked Daily: 0 If you are a former smoker, when did you quit?: 2014 Cigars Per Day: 0 Information on smoking cessation initiated: No 'Breaking Loose' booklet given: 02/28/12 Hx Alcohol Use: No Drug/Substance Use Hx: No Substance Use Type: None Hx Substance Use Treatment: No <Rolando Randle - Last Filed: 04/20/17 19:31> - Past Medical History Allergies/Adverse Reactions: Allergies Allergy/AdvReac Type Severity Reaction Status Date / Time metoprolol Allergy Intermediate Rash Verified 04/19/17 21:34 Home Medications: Ambulatory Orders Levothyroxine [Synthroid -] 25 mcg PO DAILY 02/19/15 Albuterol Sulfate Inhaler - [Ventolin HFA Inhaler -] 2 inh IH Q6H PRN 04/11/16 Acetaminophen [Tylenol .Regular Strength -] 650 mg PO Q4H PRN #0 tablet Miscellaneous Medical Supply [Wound Vac -] 1 each MC ASDIR #1 unit 09/06/16 Amlodipine Besylate [Norvasc -] 1 tab PO DAILY 11/22/16 Insulin (Levemir) [Levemir Flexpen -] 10 units SQ HS 11/22/16 Lisinopril [Prinivil] 1 tab PO DAILY 11/22/16 Metformin HCl 1 tab PO BID 11/22/16 Nilotinib HCl [Tasigna] 2 cap PO BID 11/22/16 Docusate Sodium [Colace -] 300 mg PO HS 03/14/17 Levofloxacin [Levaquin] 1 tab PO DAILY 03/21/17 Aspirin [ASA -] 81 mg PO DAILY 04/20/17 Collagenase Clostridium Hist. [Santyl] 1 applic TP DAILY 04/20/17 Furosemide [Lasix -] 20 mg PO DAILY 04/20/17 Gabapentin 600 mg PO TID 04/20/17 Oxycodone HCl [Roxicodone -] 10 mg PO Q4H PRN MDD 60mg 04/20/17 Review of Systems - Review of Systems Able to Perform ROS?: No Comments:: 04/19/17 22:35 Unable to perform ROS secondary to patients clinical condition. <Je Daugherty - Last Filed: 04/20/17 00:53> *Physical Exam - Vital Signs Last Vital Signs Temp Pulse Resp BP Pulse Ox 100.3 F H 70 20 150/69 100 04/19/17 21:36 04/19/17 21:36 04/19/17 21:36 04/19/17 21:36 04/19/17 21:36 - Physical Exam Comments: 04/19/17 22:35 GENERAL: Well developed, well nourished. Awake and alert. No acute distress. HEENT: Normocephalic, atraumatic. PERRLA, EOMI. No conjunctival pallor. Sclera are non- icteric. Moist mucous membranes. Oropharynx is clear. NECK: Supple. Full ROM. No JVD. Carotid pulses 2+ and symmetric, without bruits. No thyromegaly. No lymphadenopathy. CARDIOVASCULAR: + tachycardia Regular rhythm. No murmurs, rubs, or gallops. Distal pulses are 2+ and symmetric. PULMONARY: Patient is tachypneic with decreased breath sounds bilaterally. Lungs clear to auscultation bilaterally. ABDOMINAL: Soft. Non-tender. Non-distended. No rebound or guarding. No organomegaly. Normoactive bowel sounds. MUSCULOSKELETAL Normal range of motion at all joints. No bony deformities or tenderness. No CVA tenderness. EXTREMITIES: + Lower extremity venous stasis changes with 1+ pitting edema. SKIN: + Diabetic foot ulcer and Wound Cav on right lower extremity Warm and dry. Normal capillary refill. No jaundice. NEUROLOGICAL: Alert. Cranial nerves 2-12 intact. No deficits to light touch and temperature in face, upper extremities and lower extremities. No motor deficits in the in face, upper extremities and lower extremities. Normal speech. Toes are down- going bilaterally. <Je Daugherty - Last Filed: 04/20/17 00:53> - Vital Signs Last Vital Signs Temp Pulse Resp BP Pulse Ox 100.3 F H 70 20 150/69 100 04/19/17 21:36 04/19/17 21:36 04/19/17 21:36 04/19/17 21:36 04/19/17 21:36 <Rolando Randle - Last Filed: 04/20/17 19:31> Heart Score/ECG Review #1 04/19/17 22:35 Vent. rate 101 bpm NJ interval 124 ms QRS duration 82 ms Sinus tachycardia Possible Anterior infarct, age undetermined <Je Daugherty - Last Filed: 04/20/17 00:53> ED Treatment Course - LABORATORY CBC & Chemistry Diagram: 04/19/17 22:41 04/19/17 22:41 <Je Daugherty - Last Filed: 04/20/17 00:53> - LABORATORY CBC & Chemistry Diagram: 04/20/17 10:16 04/20/17 10:16 <Rolando Randle - Last Filed: 04/20/17 19:31> Medical Decision Making - Medical Decision Making 04/20/17 00:[address] Longo at 00:53 <Je Daugherty - Last Filed: 04/20/17 00:53> - Medical Decision Making 04/20/17 19:31 Dr. Randle: The scribe's documentation has been prepared under my direction and personally reviewed by me in its entirery. I confirm that the note above accurately reflects all work, treatment, procedures, and medical decision making performed by me. <Rolando Randle - Last Filed: 04/20/17 19:31> *DC/Admit/Observation/Transfer - Attestations Scribe Attestion: 04/19/17 22:35 Documentation prepared by Je Daugherty, acting as medical center director for Rolando Randle MD <Je Daugherty - Last Filed: 04/20/17 00:53> - Discharge Dispostion Admit: Yes <Rolando Randle - Last Filed: 04/20/17 19:31> Diagnosis at time of Disposition: Sepsis, COPD (chronic obstructive pulmonary disease), Pneumonia - Referrals
[2017-04-19] MEDS ORDERED: ACETAMINOPHEN 1000 MG/100 ML VIAL (NON FORMULARY) IVPB ONE (22:27)
[2017-04-19 22:47] LABS: BASOPHIL 0.2 % (0-2.0); EOSINOPHIL 0.2 % (0-4.5); MCH 28.8 pg (25.7-33.7); MCHC 31.6 g/dl (32.0-36.0); MEAN CELL VOLUME 91.3 fl (80-96); MEAN PLT VOLUME 8.6 fl (7.5-11.1); NEUTROPHILS 92.9 % (42.8-82.8); PLATELET COUNT 175 K/MM3 (134-434); RDW 18.4 % (11.6-15.6)
[2017-04-19] MEDS ORDERED: ACETAMINOPHEN INJECTION 100 ML IVPB ONE (22:50)
[2017-04-19 23:23] LABS: INR 1.25 (0.82-1.09); PROTHROMBIN TIME (PATIENT) 13.8 SEC (9.98-11.88)
[2017-04-19 23:26] LABS: ACTIVATED PTT 30.9 SECONDS (26.9-34.4)
[2017-04-19 23:38] LABS: ANION GAP 10 (8-16); BILIRUBIN,TOTAL 0.6 mg/dL (0.2-1.0); CALCIUM 8.5 mg/dL (8.5-10.1); CO2 26 mmol/L (21-32); CREATININE 0.9 mg/dL (0.55-1.02); GLUCOSE,RANDOM 242 mg/dL (74-106); SGOT/AST 27 U/L (15-37); SGPT/ALT 25 U/L (12-78); TOT PROT 7.6 g/dl (6.4-8.2)
[2017-04-19 23:41] LABS: ALK PHOS 127 U/L (45-117); CPK 36 IU/L (26-192); TROPONIN I < 0.02 ng/ml (0.00-0.05)
[2017-04-19 23:50] LABS: VENOUS BLOOD GAS HCO3 25.1 meq/L (19-25); VENOUS PH 7.35 (7.32-7.42)
[2017-04-20] MEDS ORDERED: LEVOFLOXACIN 750 MG IVPB 150 ML IVPB ONE ×2 (00:48→00:55)
[2017-04-20 00:58] LABS: URINE APPEARANCE CLEAR; URINE BILIRUBIN NEGATIVE (NEGATIVE); URINE BLOOD TRACE-LYSE (NEGATIVE); URINE COLOR LT. YELLOW; URINE GLUCOSE (UA) NEGATIVE (NEGATIVE); URINE KETONE NEGATIVE (NEGATIVE); URINE LEUK ESTERASE NEGATIVE (NEGATIVE); URINE NITRITE NEGATIVE (NEGATIVE); URINE UROBILINOGEN 0.2 mg/dL (0.2-1.0)
[2017-04-20 00:59] LABS: URINE PROTEIN 1+ (NEGATIVE)
[2017-04-20 01:24] LABS: URINE BACTERIA MODERATE /hpf (NONE SEEN); URINE MUCUS RARE; URINE RBC 2 /hpf (0-3); URINE WBC 2 /hpf (3-5)
[2017-04-20] MEDS ORDERED: PIPERACILLIN/TAZOB 3.375 GM 50 ML IVPB ONE (03:07)
[2017-04-20] MEDS: PIPERACILLIN/TAZOB 3.375 GM 50 ML IVPB SCH ×2 (03:11→10:32)
[2017-04-20] MEDS ORDERED: oxyCODONE HCL 5 MG TABLET ONE (03:23)
[2017-04-20] MEDS: oxyCODONE HCL 5 MG TABLET PO PRN ×2 (03:45→22:42)
[2017-04-20] MEDS ORDERED: ACETAMINOPHEN 325 MG TABLET (FP) ONE (03:46)
[2017-04-20] MEDS: ACETAMINOPHEN 325 MG TABLET (FP) PO PRN ×3 (03:48→22:46)
[2017-04-20] MEDS: LEVOTHYROXINE NA 25 MCG TABLET (FP) PO SCH (06:10)
[2017-04-20] MEDS: metFORMIN HCL 500 MG TABLET (FP) PO SCH ×2 (06:10→18:14)
[2017-04-20] MEDS: GABAPENTIN 300 MG CAPSULE (FP) PO SCH ×3 (06:10→22:41)
[2017-04-20] MEDS: INSULIN SLIDING SCALE (NOVOLOG) 1 VIAL SQ SCH ×4 (06:29→22:42)
[2017-04-20] MEDS ORDERED: amLODIPine BESYLATE 5 MG TABLET (FP) PO SCH (10:00)
[2017-04-20] MEDS: RANITIDINE HCL 150 MG TABLET (FP) PO SCH ×2 (10:15→22:41)
[2017-04-20] MEDS: FUROSEMIDE 20 MG TABLET (FP) PO SCH (10:15)
[2017-04-20] MEDS: LISINOPRIL 20 MG TABLET (FP) PO SCH (10:16)
[2017-04-20] MEDS: ASPIRIN 81 MG CHEWABLE TABLETS PO SCH (10:16)
[2017-04-20] MEDS: HEPARIN NA (PORCINE) 5,000 UNITS/ML 1ML VIAL SQ SCH ×2 (10:16→22:41)
--- NOTE | 2017-04-20 10:16 | CON.CARD ---
Cardiology Consult (text) - Consultation Consultation Note: cc: [place] hpi: 66 yo f with hx htn, dm, hld, hypothyroid, obesity, possible copd, CML/ anemia, [place]/fe[place]. Lethargic so hx from charts as well. Reports having sob, denies palps, dizzy, cp. Admitted for pna and also with anemia worse than baseline. pmh: per hpi psh: ercp, cholecystectomy, hernia repair social: ex tobacco, no etoh/drug abuse famhx: non contributory ros: per hpi; unable to obtain 2/2 ams meds: Home Medications Medication Instructions Recorded Levothyroxine [Synthroid -] 25 mcg PO DAILY 02/19/15 Albuterol Sulfate Inhaler - 2 inh IH Q6H PRN 04/11/16 [Ventolin HFA Inhaler -] Acetaminophen [Tylenol .Regular 650 mg PO Q4H PRN #0 tablet 06/28/16 Strength -] Miscellaneous Medical Supply 1 each ASDIR #1 unit 09/06/16 [Wound Vac -] Amlodipine Besylate [Norvasc -] 1 tab PO DAILY 11/22/16 Insulin (Levemir) [Levemir Flexpen 10 units SQ HS 11/22/16 -] Lisinopril [Prinivil] 1 tab PO DAILY 11/22/16 Metformin HCl 1 tab PO BID 11/22/16 Nilotinib HCl [Tasigna] 2 cap PO BID 11/22/16 Docusate Sodium [Colace -] 300 mg PO HS 03/14/17 Levofloxacin [Levaquin] 1 tab PO DAILY 03/21/17 Aspirin [ASA -] 81 mg PO DAILY 04/20/17 Collagenase Clostridium Hist. 1 applic TP DAILY 04/20/17 [Santyl] Furosemide [Lasix -] 20 mg PO DAILY 04/20/17 Gabapentin 600 mg PO TID 04/20/17 Oxycodone HCl [Roxicodone -] 10 mg PO Q4H PRN MDD 60mg 04/20/17 Vital Signs Period Temp Pulse Resp BP Sys/Machado Pulse Ox Last 24 Hr 98.5 F-100.9 F 70-101 15-28 135-150/60-74 93-100 nad, no jvd rrr s1s2 no mrg cta b/l, nleff lethargic, answers simple questions abd nd nt, obese. pos bs pos dp/pt trace le edema with non pitting edema as well with b/l with chronic skin stasis changes no diaphoresis no jaundice Laboratory Last Values WBC 19.0 K/mm3 (4.0-10.0) H D 04/19/17 22:41 RBC 2.62 M/mm3 (3.60-5.2) L 04/19/17 22:41 Hgb 7.5 GM/dL (10.7-15.3) L 04/19/17 22:41 Hct 23.9 % (32.4-45.2) L 04/19/17 22:41 MCV 91.3 fl (80-96) 04/19/17 22:41 MCH 28.8 pg (25.7-33.7) 04/19/17 22:41 MCHC 31.6 g/dl (32.0-36.0) L 04/19/17 22:41 RDW 18.4 % (11.6-15.6) H D 04/19/17 22:41 Plt Count 175 K/MM3 (134-434) 04/19/17 22:41 MPV 8.6 fl (7.5-11.1) D 04/19/17 22:41 Neutrophils % 92.9 % (42.8-82.8) H D 04/19/17 22:41 Lymphocytes % 2.5 % (8-40) L D 04/19/17 22:41 Monocytes % 4.2 % (3.8-10.2) 04/19/17 22:41 Eosinophils % 0.2 % (0-4.5) D 04/19/17 22:41 Basophils % 0.2 % (0-2.0) 04/19/17 22:41 INR 1.25 (0.82-1.09) H 04/19/17 22:41 PTT (Actin FS) 30.9 SECONDS (26.9-34.4) 04/19/17 22:41 VBG pH 7.35 (7.32-7.42) 04/19/17 23:45 POC VBG pCO2 46.5 mmHg (38-52) 04/19/17 23:45 POC VBG pO2 30.3 mmHg (28-48) 04/19/17 23:45 Mixed VBG HCO3 25.1 meq/L (19-25) H 04/19/17 23:45 Sodium 139 mmol/L (136-145) 04/19/17 22:41 Potassium 4.9 mmol/L (3.5-5.1) 04/19/17 22:41 Chloride 103 mmol/L (98-107) 04/19/17 22:41 Carbon Dioxide 26 mmol/L (21-32) 04/19/17 22:41 Anion Gap 10 (8-16) 04/19/17 22:41 BUN 33 mg/dL (7-18) H D 04/19/17 22:41 Creatinine 0.9 mg/dL (0.55-1.02) D 04/19/17 22:41 Creat Clearance w eGFR > 60 (>60) 04/19/17 22:41 POC Glucometer 320.61918 UNITS (()) 04/20/17 06:28 Random Glucose 242 mg/dL (74-106) H D 04/19/17 22:41 Lactic Acid 1.7 mmol/L (0.4-2.0) 04/20/17 03:05 Calcium 8.5 mg/dL (8.5-10.1) 04/19/17 22:41 Total Bilirubin 0.6 mg/dL (0.2-1.0) 04/19/17 22:41 AST 27 U/L (15-37) 04/19/17 22:41 ALT 25 U/L (12-78) 04/19/17 22:41 Alkaline Phosphatase 127 U/L (45-117) H 04/19/17 22:41 Creatine Kinase 36 IU/L (26-192) 04/19/17 22:41 Troponin I < 0.02 ng/ml (0.00-0.05) 04/19/17 22:41 Total Protein 7.6 g/dl (6.4-8.2) 04/19/17 22:41 Albumin 3.0 g/dl (3.4-5.0) L 04/19/17 22:41 Urine Color Lt. yellow 04/19/17 23:30 Urine Appearance Clear 04/19/17 23:30 Urine pH 5.0 (5.0-8.0) 04/19/17 23:30 Urine Protein 1+ (NEGATIVE) H 04/19/17 23:30 Urine Glucose (UA) Negative (NEGATIVE) 04/19/17 23:30 Urine Ketones Negative (NEGATIVE) 04/19/17 23:30 Urine Blood Trace-lyse (NEGATIVE) 04/19/17 23:30 Urine Nitrite Negative (NEGATIVE) 04/19/17 23:30 Urine Bilirubin Negative (NEGATIVE) 04/19/17 23:30 Urine Urobilinogen 0.2 mg/dL (0.2-1.0) 04/19/17 23:30 Ur Leukocyte Esterase Negative (NEGATIVE) 04/19/17 23:30 Urine RBC 2 /hpf (0-3) 04/19/17 23:30 Urine WBC 2 /hpf (3-5) 04/19/17 23:30 Ur Epithelial Cells Rare /hpf (FEW) 04/19/17 23:30 Urine Bacteria Moderate /hpf (NONE SEEN) 04/19/17 23:30 Urine Mucus Rare 04/19/17 23:30 Blood Type O POSITIVE 04/19/17 22:41 Antibody Screen Negative 04/19/17 22:41 ecg 04/19/17: NSR, nl intervals. No ischemic changes echo 01/2016: Mild conc LVH. Nl lv/rv size/fn. No sig valvular ab. echo 06/2016: nl lv/rv, mild rommel, mac, mild mr cxr: no sig chf, left infiltrate tele: sr a/p: 66 yo f with hx htn, dm, hld, hypothyroid, obesity, possible copd, CML/ anemia, [place]. weakness, fever, sob: -no indication of cardiac etiology -recent echo unremarkable, no signs gross vol overload now -pt has anemia worse than baseline and elevated wbc/pna as likely etiologies chronic diastolic chf: -stable, no gross vol overload -bun up from baseline, monitor trend, may need to hold po lasix if worsens htn: -stable hld: - Given diabetes, would benefit from statin therapy, can initiate as outpatient once acute issues resolve.
--- NOTE | 2017-04-20 10:36 | HP ---
Admitting History and Physical - Primary Care Physician PCP: Carlito Longo - Admission Chief Complaint: I was short of breath History of Present Illness: Ms Hernandez is a 66 year old female who comes in from [facility] with lethargy and fevers. She says that she has been short of breath for the past 5 days. She says it came on suddenly. She says the shortness of breath is constant. Nothing makes it better or worse. She says that she is not mobile secondary to her chronically swollen legs. She says her legs are swollen but not any more than usual. She also says she had severe chills associated with it. She denies feeling feverish, lightheadedness, dizziness, passing out, chest pain or pressure, orthopnea, abdominal pain, nausea, vomiting, diarrhea, or difficulty or pain on urination. She has chronic constipation that is unchanged. She says her breathing is feeling better but she is still very short of breath. History Source: Patient Limitations to Obtaining History: Clinical Condition - Past Medical History Cardiovascular: Yes: HTN, Hyperlipdemia Gastrointestinal: Yes: Constipation Heme/Onc: Yes: Anemia, Current Chemotherapy, Other (CML on chemotherapy) Endocrine: Yes: Diabetes Mellitus, Hypothyroidism - Past Surgical History Past Surgical History: Yes: Cholecystectomy, , Hernia Repair - Smoking History Smoking history: Former smoker Have you smoked in the past 12 months: No Aproximately how many cigarettes per day: 0 If you are a former smoker, when did you quit?: 2014 - Alcohol/Substance Use Hx Alcohol Use: No History of Substance Use: reports: None - Social History Usual Living Arrangement: Yes: Prison ADL: Support Services History of Recent Travel: No Home Medications - Allergies Allergies/Adverse Reactions: Allergies Allergy/AdvReac Type Severity Reaction Status Date / Time metoprolol Allergy Intermediate Rash Verified 04/19/17 21:34 - Home Medications Home Medications: Ambulatory Orders Levothyroxine [Synthroid -] 25 mcg PO DAILY 02/19/15 Albuterol Sulfate Inhaler - [Ventolin HFA Inhaler -] 2 inh IH Q6H PRN 04/11/16 Acetaminophen [Tylenol .Regular Strength -] 650 mg PO Q4H PRN #0 tablet Miscellaneous Medical Supply [Wound Vac -] 1 each ASDIR #1 unit 09/06/16 Amlodipine Besylate [Norvasc -] 1 tab PO DAILY 11/22/16 Insulin (Levemir) [Levemir Flexpen -] 10 units SQ HS 11/22/16 Lisinopril [Prinivil] 1 tab PO DAILY 11/22/16 Metformin HCl 1 tab PO BID 11/22/16 Nilotinib HCl [Tasigna] 2 cap PO BID 11/22/16 Docusate Sodium [Colace -] 300 mg PO HS 03/14/17 Levofloxacin [Levaquin] 1 tab PO DAILY 03/21/17 Aspirin [ASA -] 81 mg PO DAILY 04/20/17 Collagenase Clostridium Hist. [Santyl] 1 applic TP DAILY 04/20/17 Furosemide [Lasix -] 20 mg PO DAILY 04/20/17 Gabapentin 600 mg PO TID 04/20/17 Oxycodone HCl [Roxicodone -] 10 mg PO Q4H PRN MDD 60mg 04/20/17 Family Disease History - Family Disease History Family History: Unremarkable (patient says family has no medical problems) Review of Systems Findings/Remarks: full review of systems obtained, as per HPI and otherwise negative Physical Examination Vital Signs: Vital Signs Temperature 37.7 C H 04/20/17 06:00 Pulse Rate 77 04/20/17 10:08 Respiratory Rate 16 04/20/17 08:43 Blood Pressure 135/62 04/20/17 08:43 O2 Sat by Pulse Oximetry (%) 100 04/20/17 10:08 Constitutional: Yes: Moderate Distress, Obese Eyes: Yes: Conjunctiva Clear, EOM Intact, PERRL HENT: Yes: Atraumatic, Normocephalic Cardiovascular: Yes: Regular Rate and Rhythm. No: Gallop, Murmur, Rub Respiratory: Yes: CTA Bilaterally, On Nasal O2, Tachypnea. No: Rales, Rhonchi, Wheezes Gastrointestinal: Yes: Normal Bowel Sounds, Soft. No: Distention, Tenderness Extremities: Yes: Erythema (changes of chronic venous stasis) Edema: Yes Edema: LLE: 3+, RLE: 3+ Labs: Laboratory Results - last 24 hr 04/19/17 04/19/17 04/19/17 22:41 22:41 22:41 WBC 19.0 H D RBC 2.62 L Hgb 7.5 L Hct 23.9 L MCV 91.3 MCH 28.8 MCHC 31.6 L RDW 18.4 H D Plt Count 175 MPV 8.6 D Neutrophils % 92.9 H D Lymphocytes % 2.5 L D Monocytes % 4.2 Eosinophils % 0.2 D Basophils % 0.2 INR 1.25 H PTT (Actin FS) 30.9 VBG pH POC VBG pCO2 POC VBG pO2 Mixed VBG HCO3 Sodium 139 Potassium 4.9 Chloride 103 Carbon Dioxide 26 Anion Gap 10 BUN 33 H D Creatinine 0.9 D Creat Clearance w eGFR > 60 POC Glucometer Random Glucose 242 H D Lactic Acid Calcium 8.5 Total Bilirubin 0.6 AST 27 ALT 25 Alkaline Phosphatase 127 H Creatine Kinase 36 Troponin I < 0.02 Total Protein 7.6 Albumin 3.0 L Urine Color Urine Appearance Urine pH Urine Protein Urine Glucose (UA) Urine Ketones Urine Blood Urine Nitrite Urine Bilirubin Urine Urobilinogen Ur Leukocyte Esterase Urine RBC Urine WBC Ur Epithelial Cells Urine Bacteria Urine Mucus Blood Type Antibody Screen 04/19/17 04/19/17 04/19/17 22:41 22:41 23:30 WBC RBC Hgb Hct MCV MCH MCHC RDW Plt Count MPV Neutrophils % Lymphocytes % Monocytes % Eosinophils % Basophils % INR PTT (Actin FS) VBG pH POC VBG pCO2 POC VBG pO2 Mixed VBG HCO3 Sodium Potassium Chloride Carbon Dioxide Anion Gap BUN Creatinine Creat Clearance w eGFR POC Glucometer Random Glucose Lactic Acid Cancelled Calcium Total Bilirubin AST ALT Alkaline Phosphatase Creatine Kinase Troponin I Total Protein Albumin Urine Color Lt. yellow Urine Appearance Clear Urine pH 5.0 Urine Protein 1+ H Urine Glucose (UA) Negative Urine Ketones Negative Urine Blood Trace-lyse Urine Nitrite Negative Urine Bilirubin Negative Urine Urobilinogen 0.2 Ur Leukocyte Esterase Negative Urine RBC 2 Urine WBC 2 Ur Epithelial Cells Rare Urine Bacteria Moderate Urine Mucus Rare Blood Type O POSITIVE Antibody Screen Negative 04/19/17 04/19/17 04/20/17 23:30 23:45 03:05 WBC RBC Hgb Hct MCV MCH MCHC RDW Plt Count MPV Neutrophils % Lymphocytes % Monocytes % Eosinophils % Basophils % INR PTT (Actin FS) VBG pH 7.35 POC VBG pCO2 46.5 POC VBG pO2 30.3 Mixed VBG HCO3 25.1 H Sodium Potassium Chloride Carbon Dioxide Anion Gap BUN Creatinine Creat Clearance w eGFR POC Glucometer Random Glucose Lactic Acid 3.2 H* 1.7 Calcium Total Bilirubin AST ALT Alkaline Phosphatase Creatine Kinase Troponin I Total Protein Albumin Urine Color Urine Appearance Urine pH Urine Protein Urine Glucose (UA) Urine Ketones Urine Blood Urine Nitrite Urine Bilirubin Urine Urobilinogen Ur Leukocyte Esterase Urine RBC Urine WBC Ur Epithelial Cells Urine Bacteria Urine Mucus Blood Type Antibody Screen 04/20/17 06:28 WBC RBC Hgb Hct MCV MCH MCHC RDW Plt Count MPV Neutrophils % Lymphocytes % Monocytes % Eosinophils % Basophils % INR PTT (Actin FS) VBG pH POC VBG pCO2 POC VBG pO2 Mixed VBG HCO3 Sodium Potassium Chloride Carbon Dioxide Anion Gap BUN Creatinine Creat Clearance w eGFR POC Glucometer [phone] Random Glucose Lactic Acid Calcium Total Bilirubin AST ALT Alkaline Phosphatase Creatine Kinase Troponin I Total Protein Albumin Urine Color Urine Appearance Urine pH Urine Protein Urine Glucose (UA) Urine Ketones Urine Blood Urine Nitrite Urine Bilirubin Urine Urobilinogen Ur Leukocyte Esterase Urine RBC Urine WBC Ur Epithelial Cells Urine Bacteria Urine Mucus Blood Type Antibody Screen Imaging - Results Chest X-ray: Report Reviewed, Image Reviewed Problem List - Problems (1) Sepsis Assessment/Plan: -patient presents with sepsis -? pneumonia, however skin is another likely source -continue IVF -continue antibiotics -ID consulted -follow up cultures Code(s): A41.9 - SEPSIS, UNSPECIFIED ORGANISM (2) Acute respiratory failure Assessment/Plan: -patient with acute shortness of breath requiring bipap overnight -states shortness of breath presented suddenly over past five days, constant, and unchanged until this am -possibly secondary to pneumonia -also with history of copd and anemia, possible multifactorial -feels improved today but still tachypneic on exam -patient is not tachycardic -however is sedentary and not on anticoagulation per SNF records -will consult pulmonary and discuss possibility of PE, plan for CTA to evaluate for PE Code(s): J96.00 - ACUTE RESPIRATORY FAILURE, UNSP W HYPOXIA OR HYPERCAPNIA Qualifiers: Respiratory failure complication: hypoxia Qualified Code(s): J96.01 - Acute respiratory failure with hypoxia (3) Pneumonia Assessment/Plan: -LLL infiltrate seen on chest x-ray -also with hypoxia and sepsis -possible pneumonia, consider HCAP -received zosyn, ID consulted and will see Code(s): J18.9 - PNEUMONIA, UNSPECIFIED ORGANISM (4) COPD (chronic obstructive pulmonary disease) Assessment/Plan: -very possible exacerbation of COPD from pneumonia and sepsis -however lung exam clear and requiring significant amount of oxygen -continue bipap currently -pulmonary consult -CTA as above to rule out PE Code(s): J44.9 - CHRONIC OBSTRUCTIVE PULMONARY DISEASE, UNSPECIFIED (5) Anemia Assessment/Plan: -slightly lower from previous admission -possibility of low tolerance secondary to habitus and clinical condition -treat pneumonia -rule out PE -pulmonary to evaluate for COPD exacerbation -consider transfusion if above negative Code(s): D64.9 - ANEMIA, UNSPECIFIED Qualifiers: Anemia type: unspecified type Qualified Code(s): D64.9 - Anemia, unspecified (6) CHF (congestive heart failure) Assessment/Plan: -appreciate cardiology assistance and note reviewed -continue lasix Code(s): I50.9 - HEART FAILURE, UNSPECIFIED Qualifiers: Congestive heart failure type: unspecified congestive heart failure type Congestive heart failure chronicity: acute Qualified Code(s): I50.9 - Heart failure, unspecified (7) CML (chronic myelocytic leukemia) Assessment/Plan: -continue outpatient regimen Code(s): C92.10 - CHRONIC MYELOID LEUK, BCR/ABL-POSITIVE, NOT ACHIEVE REMIS (8) Diabetes Assessment/Plan: -continue home regimen and monitor -adjust as necessary Code(s): E11.9 - TYPE 2 DIABETES MELLITUS WITHOUT COMPLICATIONS (9) Diabetic foot ulcer Assessment/Plan: -consult vascular surgery Code(s): E11.621 - TYPE 2 DIABETES MELLITUS WITH FOOT ULCER L97.509 - NON-PRESSURE CHRONIC ULCER OTH PRT UNSP FOOT W UNSP SEVERITY Qualifiers: Diabetes mellitus type: other specified (including STORM) Laterality: bilateral (10) Hypertension Assessment/Plan: -slightly elevated -prefer elevation currently secondary to sepsis, do not want to bottom out blood pressure until improved -continue home regimen, will not adjust at this time Code(s): I10 - ESSENTIAL (PRIMARY) HYPERTENSION (11) Hypothyroid Assessment/Plan: -continue synthroid Code(s): E03.9 - HYPOTHYROIDISM, UNSPECIFIED
[2017-04-20 10:53] LABS: MCH 28.8 pg (25.7-33.7); MCHC 31.8 g/dl (32.0-36.0); MEAN CELL VOLUME 90.5 fl (80-96); MEAN PLT VOLUME 8.5 fl (7.5-11.1); PLATELET COUNT 161 K/MM3 (134-434); RDW 18.4 % (11.6-15.6); WHITE BLOOD COUNT 13.1 K/mm3 (4.0-10.0)
[2017-04-20 11:11] LABS: ALBUMIN 2.8 g/dl (3.4-5.0); ALK PHOS 128 U/L (45-117); ANION GAP 7 (8-16); BILIRUBIN,TOTAL 0.8 mg/dL (0.2-1.0); CALCIUM 8.5 mg/dL (8.5-10.1); CO2 27 mmol/L (21-32); GLUCOSE,RANDOM 172 mg/dL (74-106); SGOT/AST 25 U/L (15-37); SGPT/ALT 28 U/L (12-78); THYROID STIMULATING HORMONE 1.07 uIU/ml (0.358-3.74); TOT PROT 7.7 g/dl (6.4-8.2)
[2017-04-20] MEDS: NYSTATIN POWDER 100,000 UNITS/GM - 15 GM TOPICAL POWDER TP SCH (12:26)
[2017-04-20] MEDS ORDERED: INSULIN (NOVOLOG) ASPART 100 UNITS/ML 10ML VIAL ONE ×2 (12:44→22:19)
[2017-04-20] MEDS ORDERED: SODIUM CHLORIDE 1,000 ML IV SCH (13:15)
--- NOTE | 2017-04-20 13:22 | CON.PULM ---
Consult Consult Specialty:: PULM/CCM Referred by:: JUAN MANUEL Reason for Consultation:: SOB - History of Present Illness Chief Complaint: SOB / fever History of Present Illness: 66 F, with listed medical history. Admitted via the ER from the SNF due to fever and SOB. Due to severe respiratory distress she required NIPPV. Patient has very limited mobility and is unable to ambulate due to significant lower extremity lymphedema. She can get into a wheelchair for limited amounts of time. She reports subjective fever and chills. No hemoptysis. No specific sick contacts or travel history. She denies dizziness, chest pain or pressure, abdominal pain, nausea, vomiting, diarrhea, or pain on urination. 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 Cardio/Vascular: Yes: HTN, Hyperlipdemia Gastrointestinal: Yes: Constipation Endocrine: Yes: Diabetes Mellitus, Hypothyroidism - Past Surgical History Past Surgical History: Yes: Cholecystectomy, , Hernia Repair - Alcohol/Substance Use Hx Alcohol Use: No History of Substance Use: reports: None - Smoking History Smoking history: Former smoker Have you smoked in the past 12 months: No Aproximately how many cigarettes per day: 0 If you are a former smoker, when did you quit?: 2013 - Social History ADL: Support Services History of Recent Travel: No Home Medications - Allergies Allergies/Adverse Reactions: Allergies Allergy/AdvReac Type Severity Reaction Status Date / Time metoprolol Allergy Intermediate Rash Verified 04/19/17 21:34 - Home Medications Home Medications: Ambulatory Orders Levothyroxine [Synthroid -] 25 mcg PO DAILY 02/19/15 Albuterol Sulfate Inhaler - [Ventolin HFA Inhaler -] 2 inh IH Q6H PRN 04/11/16 Acetaminophen [Tylenol .Regular Strength -] 650 mg PO Q4H PRN #0 tablet Miscellaneous Medical Supply [Wound Vac -] 1 each MC ASDIR #1 unit 09/06/16 Amlodipine Besylate [Norvasc -] 1 tab PO DAILY 11/22/16 Insulin (Levemir) [Levemir Flexpen -] 10 units SQ HS 11/22/16 Lisinopril [Prinivil] 1 tab PO DAILY 11/22/16 Metformin HCl 1 tab PO BID 11/22/16 Nilotinib HCl [Tasigna] 2 cap PO BID 11/22/16 Docusate Sodium [Colace -] 300 mg PO HS 03/14/17 Levofloxacin [Levaquin] 1 tab PO DAILY 03/21/17 Aspirin [ASA -] 81 mg PO DAILY 04/20/17 Collagenase Clostridium Hist. [Santyl] 1 applic TP DAILY 04/20/17 Furosemide [Lasix -] 20 mg PO DAILY 04/20/17 Gabapentin 600 mg PO TID 04/20/17 Oxycodone HCl [Roxicodone -] 10 mg PO Q4H PRN MDD 60mg 04/20/17 Review of Systems - Review of Systems Constitutional: reports: Chills, Fever, Lethargy, Malaise Eyes: reports: No Symptoms HENT: reports: No Symptoms Neck: reports: No Symptoms Cardiovascular: reports: Edema, Shortness of Breath. denies: Chest Pain, Palpitations Respiratory: reports: Cough, Snoring, SOB, SOB on Exertion. denies: Hemoptysis Gastrointestinal: reports: No Symptoms Genitourinary: reports: No Symptoms Breasts: reports: No Symptoms Reported Musculoskeletal: reports: Extremity Pain Integumentary: reports: Blister, Change in Color Neurological: reports: No Symptoms Endocrine: reports: No Symptoms Hematology/Lymphatic: reports: No Symptoms Psychiatric: reports: No Symptoms Physical Exam Vital Sings: Vital Signs Temperature 99 F 04/20/17 10:00 Pulse Rate 77 04/20/17 10:08 Respiratory Rate 22 04/20/17 10:00 Blood Pressure 155/66 04/20/17 10:00 O2 Sat by Pulse Oximetry (%) 100 04/20/17 10:08 Constitutional: Yes: Obese, Other (lethargic ) Eyes: Yes: Conjunctiva Clear, EOM Intact HENT: Yes: Atraumatic, Normocephalic Neck: Yes: Supple, Trachea Midline Cardiovascular: Yes: Regular Rate and Rhythm Respiratory: Yes: Cough, Diminished, On BiPap, On Nasal O2, Rhonchi, SOB, Tachypnea. No: Accessory Muscle Use, Stridor, Wheezes ...Inspection: Yes: WNL Gastrointestinal: Yes: Normal Bowel Sounds, Soft, Abdomen, Obese Extremities: Yes: Erythema Edema: Yes Peripheral Pulses WNL: No Integumentary: Yes: Erythema, Pressure Ulcer, Venous Stasis Changes Neurological: Yes: Alert, Oriented ...Motor Strength: WNL Psychiatric: Yes: WNL, Alert, Oriented Labs: CBC, BMP 04/20/17 10:16 04/20/17 10:16 Imaging - Results Chest X-ray: Report Reviewed, Image Reviewed Problem List - Problems (1) Acute respiratory failure Code(s): J96.00 - ACUTE RESPIRATORY FAILURE, UNSP W HYPOXIA OR HYPERCAPNIA Qualifiers: Respiratory failure complication: hypoxia Qualified Code(s): J96.01 - Acute respiratory failure with hypoxia (2) Pneumonia Code(s): J18.9 - PNEUMONIA, UNSPECIFIED ORGANISM (3) Sepsis Code(s): A41.9 - SEPSIS, UNSPECIFIED ORGANISM (4) Altered mental status Code(s): R41.82 - ALTERED MENTAL STATUS, UNSPECIFIED (5) Anemia Code(s): D64.9 - ANEMIA, UNSPECIFIED Qualifiers: Anemia type: unspecified type Qualified Code(s): D64.9 - Anemia, unspecified (6) CHF (congestive heart failure) Code(s): I50.9 - HEART FAILURE, UNSPECIFIED Qualifiers: Congestive heart failure type: unspecified congestive heart failure type Congestive heart failure chronicity: acute Qualified Code(s): I50.9 - Heart failure, unspecified (7) CML (chronic myelocytic leukemia) Code(s): C92.10 - CHRONIC MYELOID LEUK, BCR/ABL-POSITIVE, NOT ACHIEVE REMIS (8) Diabetes Code(s): E11.9 - TYPE 2 DIABETES MELLITUS WITHOUT COMPLICATIONS (9) Diabetic foot ulcer Code(s): E11.621 - TYPE 2 DIABETES MELLITUS WITH FOOT ULCER L97.509 - NON-PRESSURE CHRONIC ULCER OTH PRT UNSP FOOT W UNSP SEVERITY Qualifiers: Diabetes mellitus type: other specified (including STORM) Laterality: bilateral (10) Hyperlipidemia Code(s): E78.5 - HYPERLIPIDEMIA, UNSPECIFIED (11) Hypertension Code(s): I10 - ESSENTIAL (PRIMARY) HYPERTENSION (12) Hypothyroid Code(s): E03.9 - HYPOTHYROIDISM, UNSPECIFIED Assessment/Plan NIPPV IVF BD TX Medrol ABX Strange-culture CTA to R/O PE Vascular evaluation
[2017-04-20] MEDS ORDERED: VANCOMYCIN 1 GRAM (PRE-DOCKED) 1,000 MG/250 ML BAG IVPB ONE (14:00)
[2017-04-20] MEDS: methylPREDNISolone NA SUCC 40 MG/1 ML VIAL IVPB SCH (14:21)
[2017-04-20] MEDS: ARFORMOTEROL TARTRATE 15 MCG/2 ML VIAL NEB SCH ×2 (14:40→23:16)
--- NOTE | 2017-04-20 14:56 | EKG ---
Test Reason : Blood Pressure : / mmHG Vent. Rate : 101 BPM Atrial Rate : 101 BPM P-R Int : 124 ms QRS Dur : 082 ms QT Int : 326 ms P-R-T Axes : 037 006 087 degrees QTc Int : 422 ms SINUS TACHYCARDIA POSSIBLE ANTERIOR INFARCT (CITED ON OR BEFORE 14-MAR-2017) ABNORMAL ECG WHEN COMPARED WITH ECG OF 14-MAR-2017 13:57, SINUS RHYTHM HAS REPLACED JUNCTIONAL RHYTHM NONSPECIFIC T WAVE ABNORMALITY NOW EVIDENT IN LATERAL LEADS Confirmed by CAROLINE BURKS MD ([id number]) on 04/20/2017 2:55:45 PM Referred By: Confirmed By:CAROLINE BURKS MD
[2017-04-20] MEDS ORDERED: DEXTROSE 50%-WATER - 25 GM/50 ML VIAL ONE (16:24)
[2017-04-20] MEDS ORDERED: SODIUM BICARBONATE 8.4% 50 MEQ/50 ML VIAL ONE (16:25)
[2017-04-20] MEDS ORDERED: INSULIN REGULAR HUMAN 100 UNITS/ML *VIAL ONE (16:25)
--- NOTE | 2017-04-20 16:58 | CONSULT ---
Consult Consult Specialty:: infectious diseases Referred by:: Reason for Consultation:: pneumonia - History of Present Illness Chief Complaint: sob History of Present Illness: 66 year old female, resident of [facility], with a significant past medical history of HTN, HLD, DM, diabetic neuropathy, Diabetic Foot Ulcer, COPD , CML, hypothyroidism, fatty liver, and anxiety admitted becasue of ams and sob family in the room according to the family she had dinner with her monday and she was doing fine. 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 Cardio/Vascular: Yes: HTN, Hyperlipdemia Gastrointestinal: Yes: Constipation Endocrine: Yes: Diabetes Mellitus, Hypothyroidism - Past Surgical History Past Surgical History: Yes: Cholecystectomy, , Hernia Repair - Alcohol/Substance Use Hx Alcohol Use: No History of Substance Use: reports: None - Smoking History Smoking history: Former smoker Have you smoked in the past 12 months: No Aproximately how many cigarettes per day: 0 If you are a former smoker, when did you quit?: 2013 - Social History ADL: Support Services History of Recent Travel: No Home Medications - Allergies Allergies/Adverse Reactions: Allergies Allergy/AdvReac Type Severity Reaction Status Date / Time metoprolol Allergy Intermediate Rash Verified 04/19/17 21:34 - Home Medications Home Medications: Ambulatory Orders Levothyroxine [Synthroid -] 25 mcg PO DAILY 02/19/15 Albuterol Sulfate Inhaler - [Ventolin HFA Inhaler -] 2 inh IH Q6H PRN 04/11/16 Acetaminophen [Tylenol .Regular Strength -] 650 mg PO Q4H PRN #0 tablet Miscellaneous Medical Supply [Wound Vac -] 1 each MC ASDIR #1 unit 09/06/16 Amlodipine Besylate [Norvasc -] 1 tab PO DAILY 11/22/16 Insulin (Levemir) [Levemir Flexpen -] 10 units SQ HS 11/22/16 Lisinopril [Prinivil] 1 tab PO DAILY 11/22/16 Metformin HCl 1 tab PO BID 11/22/16 Nilotinib HCl [Tasigna] 2 cap PO BID 11/22/16 Docusate Sodium [Colace -] 300 mg PO HS 03/14/17 Levofloxacin [Levaquin] 1 tab PO DAILY 03/21/17 Aspirin [ASA -] 81 mg PO DAILY 04/20/17 Collagenase Clostridium Hist. [Santyl] 1 applic TP DAILY 04/20/17 Furosemide [Lasix -] 20 mg PO DAILY 04/20/17 Gabapentin 600 mg PO TID 04/20/17 Oxycodone HCl [Roxicodone -] 10 mg PO Q4H PRN MDD 60mg 04/20/17 Review of Systems Unable to obtain ROS, reason: unable to obtain Physical Exam Vital Signs: Vital Signs Temperature 99 F 04/20/17 10:00 Pulse Rate 77 04/20/17 10:08 Respiratory Rate 22 04/20/17 10:00 Blood Pressure 155/66 04/20/17 10:00 O2 Sat by Pulse Oximetry (%) 100 04/20/17 10:08 Constitutional: Yes: Obese, Other Eyes: Yes: Conjunctiva Clear Cardiovascular: Yes: Regular Rate and Rhythm Respiratory: Yes: On BiPap, Other Gastrointestinal: Yes: Normal Bowel Sounds, Soft Musculoskeletal: Yes: WNL Extremities: Yes: WNL Integumentary: Yes: Pressure Ulcer, Other Neurological: Yes: Other Labs: CBC, BMP 04/20/17 10:16 04/20/17 10:16 Imaging - Results Chest X-ray: Report Reviewed, Image Reviewed Assessment/Plan Problem List - Problems (1) Acute respiratory failure Code(s): J96.00 - ACUTE RESPIRATORY FAILURE, UNSP W HYPOXIA OR HYPERCAPNIA Qualifiers: Respiratory failure complication: hypoxia Qualified Code(s): J96.01 - Acute respiratory failure with hypoxia (2) Pneumonia Code(s): J18.9 - PNEUMONIA, UNSPECIFIED ORGANISM (3) Sepsis Code(s): A41.9 - SEPSIS, UNSPECIFIED ORGANISM (4) Altered mental status Code(s): R41.82 - ALTERED MENTAL STATUS, UNSPECIFIED (5) Anemia Code(s): D64.9 - ANEMIA, UNSPECIFIED Qualifiers: Anemia type: unspecified type Qualified Code(s): D64.9 - Anemia, unspecified (6) CHF (congestive heart failure) Code(s): I50.9 - HEART FAILURE, UNSPECIFIED Qualifiers: Congestive heart failure type: unspecified congestive heart failure type Congestive heart failure chronicity: acute Qualified Code(s): I50.9 - Heart failure, unspecified (7) CML (chronic myelocytic leukemia) Code(s): C92.10 - CHRONIC MYELOID LEUK, BCR/ABL-POSITIVE, NOT ACHIEVE REMIS (8) Diabetes Code(s): E11.9 - TYPE 2 DIABETES MELLITUS WITHOUT COMPLICATIONS (9) Diabetic foot ulcer Code(s): E11.621 - TYPE 2 DIABETES MELLITUS WITH FOOT ULCER L97.509 - NON-PRESSURE CHRONIC ULCER OTH PRT UNSP FOOT W UNSP SEVERITY Qualifiers: Diabetes mellitus type: other specified (including STORM) Laterality: bilateral (10) Hyperlipidemia Code(s): E78.5 - HYPERLIPIDEMIA, UNSPECIFIED (11) Hypertension Code(s): I10 - ESSENTIAL (PRIMARY) HYPERTENSION (12) Hypothyroid Code(s): E03.9 - HYPOTHYROIDISM, UNSPECIFIED leukocytosis patient is mostly showing resp failure picture plan if wbc continues to come down stop levelyuin tomorrow continue resp support will see wbc tomorrow await for all cx reports
[2017-04-20] MEDS: COLLAGENASE CLOSTRIDIUM HIST. 30 GRAMS TUBE TP SCH (18:22)
[2017-04-20] MEDS: DOCUSATE SODIUM 100 MG CAPSULE (FP) PO SCH (22:20)
[2017-04-20] MEDS: LEVOFLOXACIN 750 MG IVPB 150 ML IVPB SCH (22:41)
[2017-04-20] MEDS: INSULIN DETEMIR 100 UNITS/ML MDV SQ SCH (22:42)
[2017-04-21] MEDS: LEVOTHYROXINE NA 25 MCG TABLET (FP) PO SCH (06:28)
[2017-04-21] MEDS: INSULIN SLIDING SCALE (NOVOLOG) 1 VIAL SQ SCH ×4 (06:28→21:44)
[2017-04-21] MEDS: GABAPENTIN 300 MG CAPSULE (FP) PO SCH ×3 (06:28→21:43)
[2017-04-21] MEDS ORDERED: INSULIN (NOVOLOG) ASPART 100 UNITS/ML 10ML VIAL ONE ×2 (06:42→12:00)
[2017-04-21 08:02] LABS: BASOPHIL 0.1 % (0-2.0); MCH 28.4 pg (25.7-33.7); MCHC 31.2 g/dl (32.0-36.0); MEAN CELL VOLUME 91.2 fl (80-96); MEAN PLT VOLUME 8.7 fl (7.5-11.1); NEUTROPHILS 90.4 % (42.8-82.8); PLATELET COUNT 121 K/MM3 (134-434); RDW 17.9 % (11.6-15.6); WHITE BLOOD COUNT 11.6 K/mm3 (4.0-10.0)
[2017-04-21 08:40] LABS: ALBUMIN 2.2 g/dl (3.4-5.0); ANION GAP 8 (8-16); CALCIUM 7.7 mg/dL (8.5-10.1); CO2 27 mmol/L (21-32); GLUCOSE,RANDOM 138 mg/dL (74-106); SGOT/AST 15 U/L (15-37); SGPT/ALT 20 U/L (12-78)
[2017-04-21 08:45] LABS: ALK PHOS 92 U/L (45-117); BILIRUBIN,TOTAL 0.5 mg/dL (0.2-1.0); CREATININE 0.9 mg/dL (0.55-1.02); TOT PROT 6.2 g/dl (6.4-8.2)
[2017-04-21] MEDS: ARFORMOTEROL TARTRATE 15 MCG/2 ML VIAL NEB SCH ×2 (10:00→22:58)
[2017-04-21] MEDS: LISINOPRIL 20 MG TABLET (FP) PO SCH (10:19)
[2017-04-21] MEDS: ASPIRIN 81 MG CHEWABLE TABLETS PO SCH (10:19)
[2017-04-21] MEDS: RANITIDINE HCL 150 MG TABLET (FP) PO SCH ×2 (10:19→21:43)
[2017-04-21] MEDS: FUROSEMIDE 20 MG TABLET (FP) PO SCH (10:20)
[2017-04-21] MEDS: HEPARIN NA (PORCINE) 5,000 UNITS/ML 1ML VIAL SQ SCH ×2 (10:20→21:44)
[2017-04-21] MEDS: methylPREDNISolone NA SUCC 40 MG/1 ML VIAL IVPB SCH (10:21)
[2017-04-21] MEDS: oxyCODONE HCL 5 MG TABLET PO PRN ×2 (10:33→18:00)
[2017-04-21] MEDS: ACETAMINOPHEN 325 MG TABLET (FP) PO PRN ×3 (10:34→18:48)
--- NOTE | 2017-04-21 10:46 | PN ---
Progress Note (short form) - Note Progress Note: s: sob present but better, no cp palps dizzy, more awake today o: Vital Signs Period Temp Pulse Resp BP Sys/M[place]ado Pulse Ox Last 24 Hr 96.7 F-101.2 F 66-98 18-22 113-145/50-67 97-97 nad, no jvd rrr s1s2 no mrg dec bs bases, nleff awake alert appropriate abd nd nt, obese. pos bs trace le edema with non pitting edema as well with b/l with chronic skin stasis changes no diaphoresis no jaundice Current Medications Generic Name Dose Route Start Last Admin Trade Name Freq PRN Reason Stop Dose Admin Acetaminophen 650 mg 04/20/17 01:02 04/21/17 10:34 Tylenol - PO 650 mg Q4H PRN Administration FEVER Acetaminophen 650 mg 04/20/17 15:53 Tylenol - PO Q4H PRN TEMP >100.5 Arformoterol Tartrate 1 amp 04/20/17 13:45 04/21/17 10:00 Brovana (Restricted To Pulmonology/Resp) - NEB 1 amp BID JOVITA Administration Aspirin 81 mg 04/20/17 10:00 04/21/17 10:19 Asa - PO 81 mg DAILY JOVITA Administration Collagenase 1 applic 04/20/17 10:00 04/20/17 18:22 Santyl - TP 1 applic DAILY JOVITA Administration Docusate Sodium 300 mg 04/20/17 22:00 04/20/17 22:20 Colace - PO Not Given HS JOVITA Furosemide 20 mg 04/20/17 10:00 04/21/17 10:20 Lasix - PO 20 mg DAILY JOVITA Administration Gabapentin 600 mg 04/20/17 06:00 04/21/17 06:28 Neurontin - PO 600 mg TID JOVITA Administration Heparin Sodium (Porcine) 5,000 unit 04/20/17 10:00 04/21/17 10:20 Heparin - SQ 5,000 unit BID JOVITA Administration Levofloxacin 150 mls @ 150 mls/hr 04/20/17 22:00 04/20/17 22:41 Levaquin 750 Mg Premixed Ivpb - IVPB 150 mls/hr HS JOVITA Administration Insulin Aspart 1 vial 04/20/17 07:00 04/21/17 06:28 Novolog Vial Sliding Scale - SQ 2 units ACHS JOVITA Administration Protocol Insulin Detemir 10 units 04/20/17 22:00 04/20/17 22:42 Levemir Vial SQ 10 unit HS JOVITA Administration Levothyroxine Sodium 25 mcg 04/20/17 07:00 04/21/17 06:28 Synthroid - PO 25 mcg AM JOVITA Administration Lisinopril 20 mg 04/20/17 10:00 04/21/17 10:19 Prinivil PO 20 mg DAILY JOVITA Administration Metformin HCl 500 mg 04/20/17 07:00 04/20/17 18:14 Glucophage - PO Not Given BIDI JOVITA Methylprednisolone Sodium Succinate 40 mg 04/20/17 13:45 04/21/17 10:21 Solu-Medrol - IVPB 40 mg DAILY JOVITA Administration Non-Formulary Medication 2 cap 04/20/17 10:00 Nilotinib Hcl [Tasigna] PO BID JOVITA Nystatin 1 applic 04/20/17 11:00 04/20/17 12:26 Nystop Powder - TP 1 applic DAILY JOVITA Administration Oxycodone HCl 10 mg 04/20/17 01:02 04/21/17 10:33 Roxicodone - PO 10 mg Q4H PRN Administration PAIN Ranitidine HCl 150 mg 04/20/17 10:00 04/21/17 10:19 Zantac - PO 150 mg BID JOVITA Administration Sodium Chloride 1,000 ml 04/19/17 22:21 Normal Saline - IV Q20M PRN MAP<65mm Hg OR SBP <90 CBC, BMP 04/21/17 07:30 04/21/17 07:30 ecg 04/19/17: NSR, nl intervals. No ischemic changes echo 01/2016: Mild conc LVH. Nl lv/rv size/fn. No sig valvular ab. echo 06/2016: nl lv/rv, mild rommel, mac, mild mr tele: sr a/p: 66 yo f with hx htn, dm, hld, hypothyroid, obesity, possible copd, CML/ anemia, sent from al for general weakness/fever. weakness, sob, anemia: -recent echo unremarkable -pt has anemia worse than baseline and elevated wbc as possible etiologies -ct chest showing bl pleural effs, also likely contributing to sob sxs. Will give trial of lasix 40 iv today and monitor response. -may also need prbcs today given another drop in hgb now chronic diastolic chf: -as above htn: -stable hld: - Given diabetes, would benefit from statin therapy, can initiate as outpatient once acute issues resolve.
[2017-04-21] MEDS ORDERED: ACETAMINOPHEN 325 MG TABLET (FP) PO PRN (11:30)
--- NOTE | 2017-04-21 11:31 | PN ---
Progress Note, Physician Chief Complaint: Ms Hernandez says she is feeling much better today. Still with shortness of breath and weakness but improved from yesterday. No cp or n/v. - Current Medication List Current Medications: Active Medications Acetaminophen (Tylenol -) 650 mg PO Q4H PRN PRN Reason: TEMP >100.5 Acetaminophen (Tylenol -) 650 mg PO Q4H PRN PRN Reason: PAIN Arformoterol Tartrate (Brovana (Restricted To Pulmonology/Resp) -) 1 amp NEB BID [facility] Last Admin: 04/21/17 10:00 Dose: 1 amp Aspirin (Asa -) 81 mg PO DAILY [facility] Last Admin: 04/21/17 10:19 Dose: 81 mg Collagenase (Santyl -) 1 applic TP DAILY [facility] Last Admin: 04/20/17 18:22 Dose: 1 applic Docusate Sodium (Colace -) 300 mg PO HS [facility] Last Admin: 04/20/17 22:20 Dose: Not Given Furosemide (Lasix -) 20 mg PO DAILY [facility] Last Admin: 04/21/17 10:20 Dose: 20 mg Gabapentin (Neurontin -) 600 mg PO TID [facility] Last Admin: 04/21/17 06:28 Dose: 600 mg Heparin Sodium (Porcine) (Heparin -) 5,000 unit SQ BID [facility] Last Admin: 04/21/17 10:20 Dose: 5,000 unit Levofloxacin (Levaquin 750 Mg Premixed Ivpb -) 150 mls @ 150 mls/hr IVPB [facility] Last Admin: 04/20/17 22:41 Dose: 150 mls/hr Insulin Aspart (Novolog Vial Sliding Scale -) 1 vial SQ ACHS [facility] PRN Reason: Protocol Last Admin: 04/21/17 06:28 Dose: 2 units Insulin Detemir (Levemir Vial) 10 units SQ HS [facility] Last Admin: 04/20/17 22:42 Dose: 10 unit Levothyroxine Sodium (Synthroid -) 25 mcg PO AM [facility] Last Admin: 04/21/17 06:28 Dose: 25 mcg Lisinopril (Prinivil) 20 mg PO DAILY [facility] Last Admin: 04/21/17 10:19 Dose: 20 mg Metformin HCl (Glucophage -) 500 mg PO BIDI [facility] Last Admin: 04/20/17 18:14 Dose: Not Given Methylprednisolone Sodium Succinate (Solu-Medrol -) 40 mg IVPB DAILY [facility] Last Admin: 04/21/17 10:21 Dose: 40 mg Non-Formulary Medication (Nilotinib Hcl [Tasigna]) 2 cap PO BID [facility] Nystatin (Nystop Powder -) 1 applic TP DAILY [facility] Last Admin: 04/20/17 12:26 Dose: 1 applic Oxycodone HCl (Roxicodone -) 10 mg PO Q4H PRN PRN Reason: PAIN Last Admin: 04/21/17 10:33 Dose: 10 mg Ranitidine HCl (Zantac -) 150 mg PO BID [facility] Last Admin: 04/21/17 10:19 Dose: 150 mg Sodium Chloride (Normal Saline -) 1,000 ml IV Q20M PRN PRN Reason: MAP<65mm Hg OR SBP <90 - Objective Vital Signs: Vital Signs Temperature 35.9 C L 04/21/17 06:00 Pulse Rate 66 04/21/17 06:00 Respiratory Rate 20 04/21/17 06:00 Blood Pressure 115/62 04/21/17 06:00 O2 Sat by Pulse Oximetry (%) 97 04/21/17 00:05 Constitutional: Yes: No Distress, Calm, Obese Cardiovascular: Yes: Regular Rate and Rhythm. No: Gallop, Murmur, Rub Respiratory: Yes: Regular, CTA Bilaterally, On Nasal O2. No: Rales, Rhonchi, Wheezes Gastrointestinal: Yes: Normal Bowel Sounds, Soft. No: Distention, Tenderness Extremities: Yes: Erythema (chronic venous stasis) Edema: Yes Edema: LLE: 2+, RLE: 2+ Labs: CBC, BMP 04/21/17 07:30 04/21/17 07:30 INR, PTT INR 1.25 (0.82-1.09) H 04/19/17 22:41 Problem List - Problems (1) Sepsis Code(s): A41.9 - SEPSIS, UNSPECIFIED ORGANISM (2) Acute respiratory failure Code(s): J96.00 - ACUTE RESPIRATORY FAILURE, UNSP W HYPOXIA OR HYPERCAPNIA Qualifiers: Respiratory failure complication: hypoxia Qualified Code(s): J96.01 - Acute respiratory failure with hypoxia (3) Pneumonia Code(s): J18.9 - PNEUMONIA, UNSPECIFIED ORGANISM (4) COPD (chronic obstructive pulmonary disease) Code(s): J44.9 - CHRONIC OBSTRUCTIVE PULMONARY DISEASE, UNSPECIFIED (5) Anemia Code(s): D64.9 - ANEMIA, UNSPECIFIED Qualifiers: Anemia type: unspecified type Qualified Code(s): D64.9 - Anemia, unspecified (6) CHF (congestive heart failure) Code(s): I50.9 - HEART FAILURE, UNSPECIFIED Qualifiers: Congestive heart failure type: unspecified congestive heart failure type Congestive heart failure chronicity: acute Qualified Code(s): I50.9 - Heart failure, unspecified (7) CML (chronic myelocytic leukemia) Code(s): C92.10 - CHRONIC MYELOID LEUK, BCR/ABL-POSITIVE, NOT ACHIEVE REMIS (8) Diabetes Code(s): E11.9 - TYPE 2 DIABETES MELLITUS WITHOUT COMPLICATIONS (9) Diabetic foot ulcer Code(s): E11.621 - TYPE 2 DIABETES MELLITUS WITH FOOT ULCER L97.509 - NON-PRESSURE CHRONIC ULCER OTH PRT UNSP FOOT W UNSP SEVERITY Qualifiers: Diabetes mellitus type: other specified (including STORM) Laterality: bilateral (10) Hypertension Code(s): I10 - ESSENTIAL (PRIMARY) HYPERTENSION (11) Hypothyroid Code(s): E03.9 - HYPOTHYROIDISM, UNSPECIFIED Assessment/Plan (1) Sepsis Assessment/Plan: -improving, leukocytosis improving -continue antibiotics per ID -follow up cultures Code(s): A41.9 - SEPSIS, UNSPECIFIED ORGANISM (2) Acute respiratory failure Assessment/Plan: -improved -CT scan negative for PE -pulmonary following -multifactorial -sleep apnea/obesity hypoventilation syndrome, anemia, pneumonia, pleural effusions -transfuse and diurese Code(s): J96.00 - ACUTE RESPIRATORY FAILURE, UNSP W HYPOXIA OR HYPERCAPNIA Qualifiers: Respiratory failure complication: hypoxia Qualified Code(s): J96.01 - Acute respiratory failure with hypoxia (3) Pneumonia Assessment/Plan: -continue levaquin -ID following Code(s): J18.9 - PNEUMONIA, UNSPECIFIED ORGANISM (4) COPD (chronic obstructive pulmonary disease) Assessment/Plan: -pulmonary following -continue bronchodilators Code(s): J44.9 - CHRONIC OBSTRUCTIVE PULMONARY DISEASE, UNSPECIFIED (5) Anemia Assessment/Plan: -decreased today -transfuse and monitor Code(s): D64.9 - ANEMIA, UNSPECIFIED Qualifiers: Anemia type: unspecified type Qualified Code(s): D64.9 - Anemia, unspecified (6) CHF (congestive heart failure) Assessment/Plan: -appreciate cardiology assistance and note reviewed -continue lasix -will stop IVF Code(s): I50.9 - HEART FAILURE, UNSPECIFIED Qualifiers: Congestive heart failure type: unspecified congestive heart failure type Congestive heart failure chronicity: acute Qualified Code(s): I50.9 - Heart failure, unspecified (7) CML (chronic myelocytic leukemia) Assessment/Plan: -continue outpatient regimen Code(s): C92.10 - CHRONIC MYELOID LEUK, BCR/ABL-POSITIVE, NOT ACHIEVE REMIS (8) Diabetes Assessment/Plan: -continue home regimen and monitor -adjust as necessary Code(s): E11.9 - TYPE 2 DIABETES MELLITUS WITHOUT COMPLICATIONS (9) Diabetic foot ulcer Assessment/Plan: -vascular surgery consulted Code(s): E11.621 - TYPE 2 DIABETES MELLITUS WITH FOOT ULCER L97.509 - NON-PRESSURE CHRONIC ULCER OTH PRT UNSP FOOT W UNSP SEVERITY Qualifiers: Diabetes mellitus type: other specified (including STORM) Laterality: bilateral (10) Hypertension Assessment/Plan: -controlled Code(s): I10 - ESSENTIAL (PRIMARY) HYPERTENSION (11) Hypothyroid Assessment/Plan: -continue synthroid Code(s): E03.9 - HYPOTHYROIDISM, UNSPECIFIED
[2017-04-21] MEDS ORDERED: INSULIN (NOVOLOG MIX 70/30) 100 UNITS/ML MDV SQ ONE (11:58)
--- NOTE | 2017-04-21 12:06 | PN ---
Progress Note (short form) - Note Progress Note: PULMONARY Feels better today, less short of breath. +productive cough. No fevers or chills. Last Vital Signs Temp Pulse Resp BP Pulse Ox 96.7 F L 66 20 115/62 97 04/21/17 06:00 04/21/17 06:00 04/21/17 06:00 04/21/17 06:00 04/21/17 00:05 Gen: NAD at rest Heart: RRR Lung: bibasilar rales Abd: soft, nontender Ext: + edema CBC, BMP 04/21/17 07:30 04/21/17 07:30 Active Medications Acetaminophen (Tylenol -) 650 mg PO Q4H PRN PRN Reason: TEMP >100.5 Acetaminophen (Tylenol -) 650 mg PO Q4H PRN PRN Reason: PAIN Arformoterol Tartrate (Brovana (Restricted To Pulmonology/Resp) -) 1 amp NEB BID [facility] Last Admin: 04/21/17 10:00 Dose: 1 amp Aspirin (Asa -) 81 mg PO DAILY [facility] Last Admin: 04/21/17 10:19 Dose: 81 mg Collagenase (Santyl -) 1 applic TP DAILY [facility] Last Admin: 04/20/17 18:22 Dose: 1 applic Docusate Sodium (Colace -) 300 mg PO [facility] Last Admin: 04/20/17 22:20 Dose: Not Given Furosemide (Lasix -) 20 mg PO DAILY [facility] Last Admin: 04/21/17 10:20 Dose: 20 mg Gabapentin (Neurontin -) 600 mg PO TID [facility] Last Admin: 04/21/17 06:28 Dose: 600 mg Heparin Sodium (Porcine) (Heparin -) 5,000 unit SQ BID [facility] Last Admin: 04/21/17 10:20 Dose: 5,000 unit Levofloxacin (Levaquin 750 Mg Premixed Ivpb -) 150 mls @ 150 mls/hr IVPB [facility] Last Admin: 04/20/17 22:41 Dose: 150 mls/hr Insulin Aspart (Novolog Vial Sliding Scale -) 1 vial SQ ACHS [facility] PRN Reason: Protocol Last Admin: 04/21/17 06:28 Dose: 2 units Insulin Detemir (Levemir Vial) 10 units SQ [facility] Last Admin: 04/20/17 22:42 Dose: 10 unit Levothyroxine Sodium (Synthroid -) 25 mcg PO AM [facility] Last Admin: 04/21/17 06:28 Dose: 25 mcg Lisinopril (Prinivil) 20 mg PO DAILY [facility] Last Admin: 04/21/17 10:19 Dose: 20 mg Metformin HCl (Glucophage -) 500 mg PO BIDI [facility] Last Admin: 04/20/17 18:14 Dose: Not Given Methylprednisolone Sodium Succinate (Solu-Medrol -) 40 mg IVPB DAILY [facility] Last Admin: 04/21/17 10:21 Dose: 40 mg Non-Formulary Medication (Nilotinib Hcl [Tasigna]) 2 cap PO BID [facility] Nystatin (Nystop Powder -) 1 applic TP DAILY [facility] Last Admin: 04/20/17 12:26 Dose: 1 applic Oxycodone HCl (Roxicodone -) 10 mg PO Q4H PRN PRN Reason: PAIN Last Admin: 04/21/17 10:33 Dose: 10 mg Ranitidine HCl (Zantac -) 150 mg PO BID [facility] Last Admin: 04/21/17 10:19 Dose: 150 mg Sodium Chloride (Normal Saline -) 1,000 ml IV Q20M PRN PRN Reason: MAP<65mm Hg OR SBP <90 A/P Acute on Chronic Diastolic Heart Failure Pleural Effusions Atelectasis COPD Fever HTN DM Hypothyroidism Morbid Obesity Anemia CML - agree with IV lasix - monitor urine output, creatinine - continue empiric antibiotics - f/u cultures - inhaled bronchodilators - O2 to keep SpO2 >90% - transfuse PRBC - monitor H/H - DVT prophylaxis
[2017-04-21] MEDS: NYSTATIN POWDER 100,000 UNITS/GM - 15 GM TOPICAL POWDER TP SCH (12:08)
[2017-04-21] MEDS: COLLAGENASE CLOSTRIDIUM HIST. 30 GRAMS TUBE TP SCH (12:09)
[2017-04-21 13:06] LABS: ANISOCYTOSIS 2+; HYPOCHROMIA 1+; MACROCYTOSIS 1+
--- NOTE | 2017-04-21 16:27 | CONSULT ---
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: Yes: Dementia Cardio/Vascular: Yes: HTN, Hyperlipdemia Gastrointestinal: Yes: Constipation Endocrine: Yes: Diabetes Mellitus, Hypothyroidism - Past Surgical History Past Surgical History: Yes: Cholecystectomy, , Hernia Repair - Alcohol/Substance Use Hx Alcohol Use: No History of Substance Use: reports: None - Smoking History Smoking history: Unknown if ever smoked Have you smoked in the past 12 months: No Aproximately how many cigarettes per day: 0 If you are a former smoker, when did you quit?: 2013 - Social History ADL: Support Services History of Recent Travel: No Home Medications - Allergies Allergies/Adverse Reactions: Allergies Allergy/AdvReac Type Severity Reaction Status Date / Time metoprolol Allergy Intermediate Rash Verified 04/19/17 21:34 - Home Medications Home Medications: Ambulatory Orders Levothyroxine [Synthroid -] 25 mcg PO DAILY 02/19/15 Albuterol Sulfate Inhaler - [Ventolin HFA Inhaler -] 2 inh IH Q6H PRN 04/11/16 Acetaminophen [Tylenol .Regular Strength -] 650 mg PO Q4H PRN #0 tablet Miscellaneous Medical Supply [Wound Vac -] 1 each ASDIR #1 unit 09/06/16 Amlodipine Besylate [Norvasc -] 1 tab PO DAILY 11/22/16 Insulin (Levemir) [Levemir Flexpen -] 10 units SQ HS 11/22/16 Lisinopril [Prinivil] 1 tab PO DAILY 11/22/16 Metformin HCl 1 tab PO BID 11/22/16 Nilotinib HCl [Tasigna] 2 cap PO BID 11/22/16 Docusate Sodium [Colace -] 300 mg PO HS 03/14/17 Levofloxacin [Levaquin] 1 tab PO DAILY 03/21/17 Aspirin [ASA -] 81 mg PO DAILY 04/20/17 Collagenase Clostridium Hist. [Santyl] 1 applic TP DAILY 04/20/17 Furosemide [Lasix -] 20 mg PO DAILY 04/20/17 Gabapentin 600 mg PO TID 04/20/17 Oxycodone HCl [Roxicodone -] 10 mg PO Q4H PRN MDD 60mg 04/20/17 Physical Exam Vital Signs: Vital Signs Temperature 100.2 F H 04/21/17 13:21 Pulse Rate 80 04/21/17 13:21 Respiratory Rate 20 04/21/17 13:21 Blood Pressure 139/73 04/21/17 13:21 O2 Sat by Pulse Oximetry (%) 97 04/21/17 00:05 Labs: CBC, BMP 04/21/17 07:30 04/21/17 07:30 Assessment/Plan VAscular Surgery The patient is a 66 year old female, resident of [facility], with a significant past medical history of HTN, HLD, DM, diabetic neuropathy, Diabetic Foot Ulcer, COPD, CML, hypothyroidism, fatty liver, and anxiety who presents to the ED with complaints of generalized malaise since earlier today. As per [facility] records, the patient has an increased in generalized malaise and generalized weakness. senior care records sates the patient was continuously yawning and drowsy earlier today. As per [facility] records, patient had a fever of 101 F. Well known to wound care clinic This HPI is limited secondary to patients clinical condition. <Je Daugherty - Last Filed: 04/20/17 00:53> - General History Source: Patient <JerRolando - Last Filed: 04/20/17 19:31> - General Chief Complaint: SIRS, Suspected/Possible Stated Complaint: ELEVATED TEMPERATRE Time Seen by Provider: 04/19/17 22:20 Past History <Je Daugherty - Last Filed: 04/20/17 00:53> - Past Medical History Anemia: Yes Asthma: No Cancer: (CML) Cardiac Disorders: No CVA: No COPD: Yes CHF: No DVT: Yes Dementia: No Diabetes: Yes (diabetic foot ulcer) GI Disorders: No Disorders: Yes (uti) HTN: Yes Hypercholesterolemia: Yes (BORDERLINE) Liver Disease: Yes (fatty liver) Psychiatric Problems: Yes (depression) Suicide Attempt (Hx): No Seizures: No Thyroid Disease: Yes (HYPO) Other medical history: chronic myeloid leukemia, chronic bronchitis - Surgical History Abdominal Surgery: Yes (hernia) Cardiac Surgery: No Cholecystectomy: Yes Lung Surgery: No Neurologic Surgery: No Orthopedic Surgery: No - Immunization History Immunization Up to Date: Yes - Psycho/Social/Smoking Cessation Hx Anxiety: No Suicidal Ideation: No Smoking Status: Yes Smoking History: Unknown if ever smoked Have you smoked in the past 12 months: No Number of Cigarettes Smoked Daily: 0 If you are a former smoker, when did you quit?: 2014 Cigars Per Day: 0 Information on smoking cessation initiated: No 'Breaking Loose' booklet given: 02/28/12 Hx Alcohol Use: No Drug/Substance Use Hx: No Substance Use Type: None Hx Substance Use Treatment: No <Rolando Randle - Last Filed: 04/20/17 19:31> - Past Medical History Allergies/Adverse Reactions: Allergies Allergy/AdvReac Type Severity Reaction Status Date / Time metoprolol Allergy Intermediate Rash Verified 04/19/17 21:34 Home Medications: Ambulatory Orders Levothyroxine [Synthroid -] 25 mcg PO DAILY 02/19/15 Albuterol Sulfate Inhaler - [Ventolin HFA Inhaler -] 2 inh IH Q6H PRN 04/11/16 Acetaminophen [Tylenol .Regular Strength -] 650 mg PO Q4H PRN #0 tablet Miscellaneous Medical Supply [Wound Vac -] 1 each [facility] ASDIR #1 unit 09/06/16 Amlodipine Besylate [Norvasc -] 1 tab PO DAILY 11/22/16 Insulin (Levemir) [Levemir Flexpen -] 10 units SQ HS 11/22/16 Lisinopril [Prinivil] 1 tab PO DAILY 11/22/16 Metformin HCl 1 tab PO BID 11/22/16 Nilotinib HCl [Tasigna] 2 cap PO BID 11/22/16 Docusate Sodium [Colace -] 300 mg PO HS 03/14/17 Levofloxacin [Levaquin] 1 tab PO DAILY 03/21/17 Aspirin [ASA -] 81 mg PO DAILY 04/20/17 Collagenase Clostridium Hist. [Santyl] 1 applic TP DAILY 04/20/17 Furosemide [Lasix -] 20 mg PO DAILY 04/20/17 Gabapentin 600 mg PO TID 04/20/17 Oxycodone HCl [Roxicodone -] 10 mg PO Q4H PRN MDD 60mg 04/20/17 PE Head - NC/AT Lung - cTA Heart - RRR abd -soft,nt,nd ext - right foot plantar - ulcer clean,pink, 4x4cm. A/P Right foot diabetic foot ulcer 1.Santyl daily to foot ulcer Yvon Baker DO
[2017-04-21] MEDS: LEVOFLOXACIN 750 MG IVPB 150 ML IVPB SCH (21:43)
[2017-04-21] MEDS: INSULIN DETEMIR 100 UNITS/ML MDV SQ SCH (21:44)
[2017-04-21] MEDS: DOCUSATE SODIUM 100 MG CAPSULE (FP) PO SCH (21:44)
--- NOTE | 2017-04-21 22:26 | PN ---
Progress Note, Physician History of Present Illness: doing well no issues still sob - Current Medication List Current Medications: Active Medications Acetaminophen (Tylenol -) 650 mg PO Q4H PRN PRN Reason: TEMP >100.5 Last Admin: 04/21/17 18:48 Dose: 650 mg Acetaminophen (Tylenol -) 650 mg PO Q4H PRN PRN Reason: PAIN Arformoterol Tartrate (Brovana (Restricted To Pulmonology/Resp) -) 1 amp NEB BID [facility] Last Admin: 04/21/17 10:00 Dose: 1 amp Aspirin (Asa -) 81 mg PO DAILY [facility] Last Admin: 04/21/17 10:19 Dose: 81 mg Collagenase (Santyl -) 1 applic TP DAILY [facility] Last Admin: 04/21/17 12:09 Dose: 1 applic Docusate Sodium (Colace -) 300 mg PO [facility] Last Admin: 04/21/17 21:44 Dose: 300 mg Furosemide (Lasix -) 20 mg PO DAILY [facility] Last Admin: 04/21/17 10:20 Dose: 20 mg Gabapentin (Neurontin -) 600 mg PO TID [facility] Last Admin: 04/21/17 21:43 Dose: 600 mg Heparin Sodium (Porcine) (Heparin -) 5,000 unit SQ BID [facility] Last Admin: 04/21/17 21:44 Dose: 5,000 unit Levofloxacin (Levaquin 750 Mg Premixed Ivpb -) 150 mls @ 150 mls/hr IVPB [facility] Last Admin: 04/21/17 21:43 Dose: 150 mls/hr Insulin Aspart (Novolog Vial Sliding Scale -) 1 vial SQ ACHS [facility] PRN Reason: Protocol Last Admin: 04/21/17 21:44 Dose: 6 units Insulin Detemir (Levemir Vial) 10 units SQ [facility] Last Admin: 04/21/17 21:44 Dose: 10 unit Levothyroxine Sodium (Synthroid -) 25 mcg PO AM [facility] Last Admin: 04/21/17 06:28 Dose: 25 mcg Lisinopril (Prinivil) 20 mg PO DAILY [facility] Last Admin: 04/21/17 10:19 Dose: 20 mg Metformin HCl (Glucophage -) 500 mg PO BIDI [facility] Last Admin: 04/20/17 18:14 Dose: Not Given Methylprednisolone Sodium Succinate (Solu-Medrol -) 40 mg IVPB DAILY [facility] Last Admin: 04/21/17 10:21 Dose: 40 mg Pt's Own (Nilotinib (Hcl [Tasigna])) 2 cap PO BID@0600,1500 [facility] Nystatin (Nystop Powder -) 1 applic TP DAILY [facility] Last Admin: 04/21/17 12:08 Dose: 1 applic Oxycodone HCl (Roxicodone -) 10 mg PO Q4H PRN PRN Reason: PAIN Last Admin: 04/21/17 18:00 Dose: 10 mg Ranitidine HCl (Zantac -) 150 mg PO BID [facility] Last Admin: 04/21/17 21:43 Dose: 150 mg - Objective Vital Signs: Vital Signs Temperature 97.5 F L 04/21/17 21:41 Pulse Rate 64 04/21/17 21:41 Respiratory Rate 16 04/21/17 21:41 Blood Pressure 151/75 04/21/17 21:41 O2 Sat by Pulse Oximetry (%) 98 04/21/17 09:00 Constitutional: Yes: Calm, Mild Distress Eyes: Yes: Conjunctiva Clear Cardiovascular: Yes: Regular Rate and Rhythm Respiratory: Yes: On BiPap, Poor Air Entry Gastrointestinal: Yes: Normal Bowel Sounds, Soft Musculoskeletal: Yes: WNL Extremities: Yes: Other (wound healing) Wound/Incision: Yes: Clean/Dry, Open to air Neurological: Yes: Alert, Oriented Psychiatric: Yes: Alert, Oriented Labs: CBC, BMP 04/21/17 07:30 04/21/17 07:30 INR, PTT INR 1.25 (0.82-1.09) H 04/19/17 22:41 Assessment/Plan Problem List - Problems (1) Acute respiratory failure Code(s): J96.00 - ACUTE RESPIRATORY FAILURE, UNSP W HYPOXIA OR HYPERCAPNIA Qualifiers: Respiratory failure complication: hypoxia Qualified Code(s): J96.01 - Acute respiratory failure with hypoxia (2) Pneumonia Code(s): J18.9 - PNEUMONIA, UNSPECIFIED ORGANISM (3) Sepsis Code(s): A41.9 - SEPSIS, UNSPECIFIED ORGANISM (4) Altered mental status Code(s): R41.82 - ALTERED MENTAL STATUS, UNSPECIFIED (5) Anemia Code(s): D64.9 - ANEMIA, UNSPECIFIED Qualifiers: Anemia type: unspecified type Qualified Code(s): D64.9 - Anemia, unspecified (6) CHF (congestive heart failure) Code(s): I50.9 - HEART FAILURE, UNSPECIFIED Qualifiers: Congestive heart failure type: unspecified congestive heart failure type Congestive heart failure chronicity: acute Qualified Code(s): I50.9 - Heart failure, unspecified (7) CML (chronic myelocytic leukemia) Code(s): C92.10 - CHRONIC MYELOID LEUK, BCR/ABL-POSITIVE, NOT ACHIEVE REMIS (8) Diabetes Code(s): E11.9 - TYPE 2 DIABETES MELLITUS WITHOUT COMPLICATIONS (9) Diabetic foot ulcer Code(s): E11.621 - TYPE 2 DIABETES MELLITUS WITH FOOT ULCER L97.509 - NON-PRESSURE CHRONIC ULCER OTH PRT UNSP FOOT W UNSP SEVERITY Qualifiers: Diabetes mellitus type: other specified (including STORM) Laterality: bilateral (10) Hyperlipidemia Code(s): E78.5 - HYPERLIPIDEMIA, UNSPECIFIED (11) Hypertension Code(s): I10 - ESSENTIAL (PRIMARY) HYPERTENSION (12) Hypothyroid Code(s): E03.9 - HYPOTHYROIDISM, UNSPECIFIED leukocytosis patient is mostly showing resp failure picture plan stop all abx continue top monitor resp support rest as per primary
[2017-04-22] MEDS: GABAPENTIN 300 MG CAPSULE (FP) PO SCH ×3 (06:45→23:07)
[2017-04-22] MEDS: LEVOTHYROXINE NA 25 MCG TABLET (FP) PO SCH (06:45)
[2017-04-22] MEDS: NILOTINIB HCL PO SCH ×2 (06:48→17:10)
[2017-04-22] MEDS: INSULIN SLIDING SCALE (NOVOLOG) 1 VIAL SQ SCH ×4 (06:55→23:09)
[2017-04-22 07:33] LABS: BASOPHIL 0.2 % (0-2.0); MCH 29.9 pg (25.7-33.7); MCHC 32.9 g/dl (32.0-36.0); MEAN CELL VOLUME 90.8 fl (80-96); MEAN PLT VOLUME 8.7 fl (7.5-11.1); NEUTROPHILS 86.5 % (42.8-82.8); PLATELET COUNT 148 K/MM3 (134-434); RDW 16.9 % (11.6-15.6); WHITE BLOOD COUNT 9.6 K/mm3 (4.0-10.0)
[2017-04-22 07:57] LABS: ANION GAP 7 (8-16); CALCIUM 7.8 mg/dL (8.5-10.1); CO2 27 mmol/L (21-32); CREATININE 0.9 mg/dL (0.55-1.02); GLUCOSE,RANDOM 148 mg/dL (74-106); MAGNESIUM 2.6 mg/dL (1.8-2.4); PHOSPHOROUS 3.7 mg/dL (2.5-4.9)
--- NOTE | 2017-04-22 08:00 | PN ---
Progress Note, Physician Chief Complaint: sob History of Present Illness: admitted with sob--which she says is much improved has received tx with abx for ? PNA and steroids. minimal lasix (20 po daily) cannot stand for wts (chronic leg swelling/weakness) denies overt incr swelling over usual baseline denies cp, palpitations, syncope ex cigs - Current Medication List Current Medications: Active Medications Acetaminophen (Tylenol -) 650 mg PO Q4H PRN PRN Reason: TEMP >100.5 Last Admin: 04/21/17 18:48 Dose: 650 mg Acetaminophen (Tylenol -) 650 mg PO Q4H PRN PRN Reason: PAIN Arformoterol Tartrate (Brovana (Restricted To Pulmonology/Resp) -) 1 amp NEB BID [facility] Last Admin: 04/21/17 22:58 Dose: 1 amp Aspirin (Asa -) 81 mg PO DAILY [facility] Last Admin: 04/21/17 10:19 Dose: 81 mg Collagenase (Santyl -) 1 applic TP DAILY [facility] Last Admin: 04/21/17 12:09 Dose: 1 applic Docusate Sodium (Colace -) 300 mg PO [facility] Last Admin: 04/21/17 21:44 Dose: 300 mg Furosemide (Lasix -) 20 mg PO DAILY [facility] Last Admin: 04/21/17 10:20 Dose: 20 mg Gabapentin (Neurontin -) 600 mg PO TID [facility] Last Admin: 04/22/17 06:45 Dose: 600 mg Heparin Sodium (Porcine) (Heparin -) 5,000 unit SQ BID [facility] Last Admin: 04/21/17 21:44 Dose: 5,000 unit Levofloxacin (Levaquin 750 Mg Premixed Ivpb -) 150 mls @ 150 mls/hr IVPB [facility] Last Admin: 04/21/17 21:43 Dose: 150 mls/hr Insulin Aspart (Novolog Vial Sliding Scale -) 1 vial SQ ACHS [facility] PRN Reason: Protocol Last Admin: 04/22/17 06:55 Dose: 2 units Insulin Detemir (Levemir Vial) 10 units SQ HS [facility] Last Admin: 04/21/17 21:44 Dose: 10 unit Levothyroxine Sodium (Synthroid -) 25 mcg PO AM [facility] Last Admin: 04/22/17 06:45 Dose: 25 mcg Lisinopril (Prinivil) 20 mg PO DAILY [facility] Last Admin: 04/21/17 10:19 Dose: 20 mg Metformin HCl (Glucophage -) 500 mg PO BIDI [facility] Last Admin: 04/20/17 18:14 Dose: Not Given Methylprednisolone Sodium Succinate (Solu-Medrol -) 40 mg IVPB DAILY [facility] Last Admin: 04/21/17 10:21 Dose: 40 mg Pt's Own (Nilotinib (Hcl [Tasigna])) 2 cap PO BID@0600,1500 [facility] Last Admin: 04/22/17 06:48 Dose: 2 cap Nystatin (Nystop Powder -) 1 applic TP DAILY [facility] Last Admin: 04/21/17 12:08 Dose: 1 applic Oxycodone HCl (Roxicodone -) 10 mg PO Q4H PRN PRN Reason: PAIN Last Admin: 04/21/17 18:00 Dose: 10 mg Ranitidine HCl (Zantac -) 150 mg PO BID [facility] Last Admin: 04/21/17 21:43 Dose: 150 mg - Objective Vital Signs: Vital Signs Temperature 98.4 F 04/22/17 05:21 Pulse Rate 60 04/22/17 05:21 Respiratory Rate 18 04/22/17 05:21 Blood Pressure 148/74 04/22/17 05:21 O2 Sat by Pulse Oximetry (%) 100 04/21/17 21:00 Constitutional: Yes: No Distress, Calm, Obese Eyes: No: Sclera Icterus HENT: No: Nasal Congestion Cardiovascular: Yes: Regular Rate and Rhythm, JVD (to jaw (L neck)), S1, S2, Other (PMI non diplaced). No: Gallop, Murmur Respiratory: Yes: Regular, Wheezes (mild). No: Accessory Muscle Use, Rales Gastrointestinal: Yes: Normal Bowel Sounds, Soft. No: Tenderness Musculoskeletal: Yes: Other (No kyphosis) Extremities: No: Cold Edema: Yes (severe nonpitting LEs) Integumentary: No: Jaundice Neurological: Yes: Alert, Oriented (x3) Psychiatric: No: Agitated Labs: INR, PTT INR 1.25 (0.82-1.09) H 04/19/17 22:41 - ....Imaging EKG: Other (tele: NSR) Assessment/Plan echo 06/2016: nl lv/rv, mild rommel, mac, mild mr a/p: 66 yo f with hx htn, dm, hld, hypothyroid, obesity, possible copd, CML/ anemia, sent [facility] for general weakness/fever. acute on chronic diastolic chf: -admitted with sob, bilateral effusions on CT scan, no a.e. copd or PNA in opinion of pulmonary consultants -BNP 1000 here (baseline 400 - 5K) -initially received IVF here, stopped 04/21. -dr crum's note 04/21 advises lasix 40mg IVP x1 but MAR shows no IV dose given (only lasix 20mg po qd) -04/22: marked JVD--start lasix 80 iv x 1 today, then 40 iv daily starting tomorrow -trish (pt prefers this over bedpan) -cannot stand for wts -rpt echo venous ins/lymphedema: -chronic swelling, stable anemia: -baseline values in past here run hgb 7s-9s -came in with hgb 7s, down to 6s, s/p PRBCs 04/21 -w/u and mgmt per pmd htn: -bp stable -cont lisinopril hld: - Given diabetes, would benefit from statin therapy, can initiate as outpatient once acute issues resolve.
[2017-04-22] MEDS: HEPARIN NA (PORCINE) 5,000 UNITS/ML 1ML VIAL SQ SCH ×2 (09:14→23:08)
[2017-04-22] MEDS: ASPIRIN 81 MG CHEWABLE TABLETS PO SCH (09:15)
[2017-04-22] MEDS: FUROSEMIDE 20 MG TABLET (FP) PO SCH (09:15)
[2017-04-22] MEDS: LISINOPRIL 20 MG TABLET (FP) PO SCH (09:15)
[2017-04-22] MEDS: methylPREDNISolone NA SUCC 40 MG/1 ML VIAL IVPB SCH (09:15)
[2017-04-22] MEDS: oxyCODONE HCL 5 MG TABLET PO PRN ×2 (09:15→18:28)
[2017-04-22] MEDS: RANITIDINE HCL 150 MG TABLET (FP) PO SCH ×2 (09:15→23:08)
[2017-04-22] MEDS ORDERED: FUROSEMIDE 40 MG/4 ML INJECTABLE VIAL IVPUSH ONE (09:50)
[2017-04-22] MEDS: ARFORMOTEROL TARTRATE 15 MCG/2 ML VIAL NEB SCH ×2 (10:57→22:30)
[2017-04-22] MEDS: NYSTATIN POWDER 100,000 UNITS/GM - 15 GM TOPICAL POWDER TP SCH (11:44)
[2017-04-22] MEDS: COLLAGENASE CLOSTRIDIUM HIST. 30 GRAMS TUBE TP SCH (11:44)
--- NOTE | 2017-04-22 12:04 | PN ---
Progress Note, Physician History of Present Illness: Pt states she feels well overall. Denies cough. Currently on nasal cannula - Current Medication List Current Medications: Active Medications Acetaminophen (Tylenol -) 650 mg PO Q4H PRN PRN Reason: TEMP >100.5 Last Admin: 04/21/17 18:48 Dose: 650 mg Acetaminophen (Tylenol -) 650 mg PO Q4H PRN PRN Reason: PAIN Arformoterol Tartrate (Brovana (Restricted To Pulmonology/Resp) -) 1 amp NEB BID [facility] Last Admin: 04/22/17 10:57 Dose: 1 amp Aspirin (Asa -) 81 mg PO DAILY [facility] Last Admin: 04/22/17 09:15 Dose: 81 mg Collagenase (Santyl -) 1 applic TP DAILY [facility] Last Admin: 04/22/17 11:44 Dose: 1 applic Docusate Sodium (Colace -) 300 mg PO HS [facility] Last Admin: 04/21/17 21:44 Dose: 300 mg Furosemide (Lasix Injection -) 40 mg IVPUSH DAILY [facility] Gabapentin (Neurontin -) 600 mg PO TID [facility] Last Admin: 04/22/17 06:45 Dose: 600 mg Heparin Sodium (Porcine) (Heparin -) 5,000 unit SQ BID [facility] Last Admin: 04/22/17 09:14 Dose: 5,000 unit Levofloxacin (Levaquin 750 Mg Premixed Ivpb -) 150 mls @ 150 mls/hr IVPB HS [facility] Last Admin: 04/21/17 21:43 Dose: 150 mls/hr Insulin Aspart (Novolog Vial Sliding Scale -) 1 vial SQ ACHS [facility] PRN Reason: Protocol Last Admin: 04/22/17 11:45 Dose: 4 units Insulin Detemir (Levemir Vial) 10 units SQ HS [facility] Last Admin: 04/21/17 21:44 Dose: 10 unit Levothyroxine Sodium (Synthroid -) 25 mcg PO AM [facility] Last Admin: 04/22/17 06:45 Dose: 25 mcg Lisinopril (Prinivil) 20 mg PO DAILY [facility] Last Admin: 04/22/17 09:15 Dose: 20 mg Metformin HCl (Glucophage -) 500 mg PO BIDI [facility] Last Admin: 04/20/17 18:14 Dose: Not Given Methylprednisolone Sodium Succinate (Solu-Medrol -) 40 mg IVPB DAILY [facility] Last Admin: 04/22/17 09:15 Dose: 40 mg Pt's Own (Nilotinib (Hcl [Tasigna])) 2 cap PO BID@0600,1500 [facility] Last Admin: 04/22/17 06:48 Dose: 2 cap Nystatin (Nystop Powder -) 1 applic TP DAILY [facility] Last Admin: 04/22/17 11:44 Dose: 1 applic Oxycodone HCl (Roxicodone -) 10 mg PO Q4H PRN PRN Reason: PAIN Last Admin: 04/22/17 09:15 Dose: 10 mg Ranitidine HCl (Zantac -) 150 mg PO BID [facility] Last Admin: 04/22/17 09:15 Dose: 150 mg - Objective Vital Signs: Vital Signs Temperature 98.4 F 04/22/17 05:21 Pulse Rate 79 04/22/17 10:57 Respiratory Rate 18 04/22/17 05:21 Blood Pressure 148/74 04/22/17 05:21 O2 Sat by Pulse Oximetry (%) 94 L 04/22/17 10:57 Constitutional: Yes: No Distress Eyes: Yes: WNL HENT: Yes: WNL Neck: Yes: WNL Cardiovascular: Yes: WNL Respiratory: Yes: WNL Gastrointestinal: Yes: WNL, Normal Bowel Sounds, Soft Genitourinary: Yes: WNL Musculoskeletal: Yes: WNL Extremities: Yes: Other (LE lymphedema) Neurological: Yes: WNL Labs: CBC, BMP 04/22/17 06:35 04/22/17 06:35 INR, PTT INR 1.25 (0.82-1.09) H 04/19/17 22:41 Problem List - Problems (1) Acute respiratory failure Code(s): J96.00 - ACUTE RESPIRATORY FAILURE, UNSP W HYPOXIA OR HYPERCAPNIA Qualifiers: Respiratory failure complication: hypoxia Qualified Code(s): J96.01 - Acute respiratory failure with hypoxia (2) COPD (chronic obstructive pulmonary disease) Code(s): J44.9 - CHRONIC OBSTRUCTIVE PULMONARY DISEASE, UNSPECIFIED (3) CHF (congestive heart failure) Code(s): I50.9 - HEART FAILURE, UNSPECIFIED Qualifiers: Congestive heart failure type: unspecified congestive heart failure type Congestive heart failure chronicity: acute Qualified Code(s): I50.9 - Heart failure, unspecified (4) CML (chronic myelocytic leukemia) Code(s): C92.10 - CHRONIC MYELOID LEUK, BCR/ABL-POSITIVE, NOT ACHIEVE REMIS (5) Diabetes Code(s): E11.9 - TYPE 2 DIABETES MELLITUS WITHOUT COMPLICATIONS Assessment/Plan - suggest monitor off antibiotics - diuresis - continue supportive care
--- NOTE | 2017-04-22 14:16 | PN ---
Physical Exam: SUBJECTIVE: Patient seen and examined OBJECTIVE: Vital Signs Period Temp Pulse Resp BP Sys/Machado Pulse Ox Last 24 Hr 97.5 F-98.5 F 60-79 16-20 136-155/66-96 94-100 GENERAL: The patient is awake, alert, and fully oriented, in no acute distress. HEAD: Normal with no signs of trauma. EYES: PERRL, extraocular movements intact, sclera anicteric, conjunctiva clear. No ptosis. ENT: Ears normal, nares patent, oropharynx clear without exudates, moist mucous membranes. NECK: Trachea midline, full range of motion, supple. LUNGS: Breath sounds equal, clear to auscultation bilaterally, no wheezes, no crackles, no accessory muscle use. HEART: Regular rate and rhythm, S1, S2 without murmur, rub or gallop. ABDOMEN: Soft, nontender, nondistended, normoactive bowel sounds, no guarding, no rebound, no hepatosplenomegaly, no masses. EXTREMITIES: 2+ pulses, warm, well-perfused, no edema. NEUROLOGICAL: Cranial nerves II through XII grossly intact. Normal speech, gait not observed. PSYCH: Normal mood, normal affect. SKIN: Warm, dry, normal turgor, no rashes or lesions noted Laboratory Results - last 24 hr 04/21/17 04/21/17 04/22/17 17:03 21:00 05:37 WBC RBC Hgb Hct MCV MCH MCHC RDW Plt Count MPV Neutrophils % Lymphocytes % Monocytes % Eosinophils % Basophils % Sodium Potassium Chloride Carbon Dioxide Anion Gap BUN Creatinine POC Glucometer 235 256 178 Random Glucose Calcium Phosphorus Magnesium 04/22/17 04/22/17 04/22/17 06:35 06:35 11:40 WBC 9.6 RBC 3.14 L D Hgb 9.4 L D Hct 28.5 L D MCV 90.8 MCH 29.9 MCHC 32.9 RDW 16.9 H Plt Count 148 D MPV 8.7 Neutrophils % 86.5 H Lymphocytes % 7.1 L D Monocytes % 6.2 Eosinophils % 0.0 Basophils % 0.2 Sodium 139 Potassium 4.7 Chloride 105 Carbon Dioxide 27 Anion Gap 7 L BUN 37 H Creatinine 0.9 POC Glucometer 248 Random Glucose 148 H Calcium 7.8 L Phosphorus 3.7 Magnesium 2.6 H D Active Medications Generic Name Dose Route Start Last Admin Trade Name Freq PRN Reason Stop Dose Admin Acetaminophen 650 mg 04/20/17 15:53 04/21/17 18:48 Tylenol - PO 650 mg Q4H PRN Administration TEMP >100.5 Acetaminophen 650 mg 04/21/17 11:30 Tylenol - PO Q4H PRN PAIN Arformoterol Tartrate 1 amp 04/20/17 13:45 04/22/17 10:57 Brovana (Restricted To Pulmonology/Resp) - NEB 1 amp BID JOVITA Administration Aspirin 81 mg 04/20/17 10:00 04/22/17 09:15 Asa - PO 81 mg DAILY JOVITA Administration Collagenase 1 applic 04/20/17 10:00 04/22/17 11:44 Santyl - TP 1 applic DAILY JOVITA Administration Docusate Sodium 300 mg 04/20/17 22:00 04/21/17 21:44 Colace - PO 300 mg HS JOVITA Administration Furosemide 40 mg 04/23/17 10:00 Lasix Injection - IVPUSH DAILY JOVITA Gabapentin 600 mg 04/20/17 06:00 04/22/17 13:31 Neurontin - PO 600 mg TID JOVITA Administration Heparin Sodium (Porcine) 5,000 unit 04/20/17 10:00 04/22/17 09:14 Heparin - SQ 5,000 unit BID JOVITA Administration Insulin Aspart 1 vial 04/20/17 07:00 04/22/17 11:45 Novolog Vial Sliding Scale - SQ 4 units ACHS JOVITA Administration Protocol Insulin Detemir 10 units 04/20/17 22:00 04/21/17 21:44 Levemir Vial SQ 10 unit HS JOVITA Administration Levothyroxine Sodium 25 mcg 04/20/17 07:00 04/22/17 06:45 Synthroid - PO 25 mcg AM JOVITA Administration Lisinopril 20 mg 04/20/17 10:00 04/22/17 09:15 Prinivil PO 20 mg DAILY JOVITA Administration Metformin HCl 500 mg 04/20/17 07:00 04/20/17 18:14 Glucophage - PO Not Given BIDI JOVITA Methylprednisolone Sodium Succinate 40 mg 04/20/17 13:45 04/22/17 09:15 Solu-Medrol - IVPB 40 mg DAILY JOVITA Administration Pt's Own (Nilotinib 2 cap 04/22/17 06:00 04/22/17 06:48 Hcl [Tasigna]) PO 2 cap BID@0600,1500 JOVITA Administration Nystatin 1 applic 04/20/17 11:00 04/22/17 11:44 Nystop Powder - TP 1 applic DAILY JOVITA Administration Oxycodone HCl 10 mg 04/20/17 01:02 04/22/17 09:15 Roxicodone - PO 10 mg Q4H PRN Administration PAIN Ranitidine HCl 150 mg 04/20/17 10:00 04/22/17 09:15 Zantac - PO 150 mg BID JOVITA Administration ASSESSMENT/PLAN: This 66 yr old female with no new events overnight and showing improvement Assessment/Plan (1) Sepsis Assessment/Plan: -improving, leukocytosis improving -dc'd ABT per ID Code(s): A41.9 - SEPSIS, UNSPECIFIED ORGANISM (2) Acute respiratory failure Assessment/Plan: -improved -CT scan negative for PE -pulmonary following -multifactorial -sleep apnea/obesity hypoventilation syndrome, anemia, pneumonia, pleural effusions -transfuse and diurese Code(s): J96.00 - ACUTE RESPIRATORY FAILURE, UNSP W HYPOXIA OR HYPERCAPNIA Qualifiers: Respiratory failure complication: hypoxia Qualified Code(s): J96.01 - Acute respiratory failure with hypoxia (3) Pneumonia Assessment/Plan: -ID following Code(s): J18.9 - PNEUMONIA, UNSPECIFIED ORGANISM (4) COPD (chronic obstructive pulmonary disease) Assessment/Plan: -pulmonary following -continue bronchodilators Code(s): J44.9 - CHRONIC OBSTRUCTIVE PULMONARY DISEASE, UNSPECIFIED (5) Anemia Assessment/Plan: -decreased today -transfuse and monitor Code(s): D64.9 - ANEMIA, UNSPECIFIED Qualifiers: Anemia type: unspecified type Qualified Code(s): D64.9 - Anemia, unspecified (6) CHF (congestive heart failure) Assessment/Plan: -appreciate cardiology assistance and note reviewed -continue lasix -will stop IVF Code(s): I50.9 - HEART FAILURE, UNSPECIFIED Qualifiers: Congestive heart failure type: unspecified congestive heart failure type Congestive heart failure chronicity: acute Qualified Code(s): I50.9 - Heart failure, unspecified (7) CML (chronic myelocytic leukemia) Assessment/Plan: -continue outpatient regimen Code(s): C92.10 - CHRONIC MYELOID LEUK, BCR/ABL-POSITIVE, NOT ACHIEVE REMIS (8) Diabetes Assessment/Plan: -continue home regimen and monitor -adjust as necessary Code(s): E11.9 - TYPE 2 DIABETES MELLITUS WITHOUT COMPLICATIONS (9) Diabetic foot ulcer Assessment/Plan: -vascular surgery consulted Code(s): E11.621 - TYPE 2 DIABETES MELLITUS WITH FOOT ULCER L97.509 - NON-PRESSURE CHRONIC ULCER OTH PRT UNSP FOOT W UNSP SEVERITY Qualifiers: Diabetes mellitus type: other specified (including STORM) Laterality: bilateral (10) Hypertension Assessment/Plan: -controlled Code(s): I10 - ESSENTIAL (PRIMARY) HYPERTENSION (11) Hypothyroid Assessment/Plan: -continue synthroid Code(s): E03.9 - HYPOTHYROIDISM, UNSPECIFIED Problem List - Problems (1) Acute respiratory failure Code(s): J96.00 - ACUTE RESPIRATORY FAILURE, UNSP W HYPOXIA OR HYPERCAPNIA Qualifiers: Respiratory failure complication: hypoxia Qualified Code(s): J96.01 - Acute respiratory failure with hypoxia (2) Sepsis Code(s): A41.9 - SEPSIS, UNSPECIFIED ORGANISM (3) Anemia Code(s): D64.9 - ANEMIA, UNSPECIFIED Qualifiers: Anemia type: unspecified type Qualified Code(s): D64.9 - Anemia, unspecified (4) Cellulitis of leg, left Code(s): L03.116 - CELLULITIS OF LEFT LOWER LIMB (5) Diabetes Code(s): E11.9 - TYPE 2 DIABETES MELLITUS WITHOUT COMPLICATIONS Visit type - Emergency Visit Emergency Visit: No - New Patient This patient is new to me today: Yes Date on this admission: 04/22/17 - Critical Care Critical Care patient: No - Discharge Referral Referred to [facility] No
--- NOTE | 2017-04-22 15:27 | PN ---
Progress Note (short form) - Note Progress Note: PULMONARY Feels better today, less short of breath. Diuresing well with lasix. + productive cough. No fevers or chills. Last Vital Signs Temp Pulse Resp BP Pulse Ox 97.8 F 66 16 176/70 94 L 04/22/17 15:05 04/22/17 15:05 04/22/17 15:05 04/22/17 15:05 04/22/17 10:57 Intake & Output 04/19/17 04/20/17 04/21/17 04/22/17 23:59 23:59 23:59 23:59 Intake Total 5982 703 1736 Output Total 2700 Balance 1989 770 -1130 Weight 253 lb 253 lb 1.451 oz Gen: NAD at rest Heart: RRR Lung: bibasilar rales Abd: soft, nontender Ext: + edema CBC, BMP 04/22/17 06:35 04/22/17 06:35 Active Medications Acetaminophen (Tylenol -) 650 mg PO Q4H PRN PRN Reason: TEMP >100.5 Last Admin: 04/21/17 18:48 Dose: 650 mg Acetaminophen (Tylenol -) 650 mg PO Q4H PRN PRN Reason: PAIN Arformoterol Tartrate (Brovana (Restricted To Pulmonology/Resp) -) 1 amp NEB BID [facility] Last Admin: 04/22/17 10:57 Dose: 1 amp Aspirin (Asa -) 81 mg PO DAILY [facility] Last Admin: 04/22/17 09:15 Dose: 81 mg Collagenase (Santyl -) 1 applic TP DAILY [facility] Last Admin: 04/22/17 11:44 Dose: 1 applic Docusate Sodium (Colace -) 300 mg PO HS [facility] Last Admin: 04/21/17 21:44 Dose: 300 mg Furosemide (Lasix Injection -) 40 mg IVPUSH DAILY [facility] Gabapentin (Neurontin -) 600 mg PO TID [facility] Last Admin: 04/22/17 13:31 Dose: 600 mg Heparin Sodium (Porcine) (Heparin -) 5,000 unit SQ BID [facility] Last Admin: 04/22/17 09:14 Dose: 5,000 unit Insulin Aspart (Novolog Vial Sliding Scale -) 1 vial SQ ACHS [facility] PRN Reason: Protocol Last Admin: 04/22/17 11:45 Dose: 4 units Insulin Detemir (Levemir Vial) 10 units SQ HS [facility] Last Admin: 04/21/17 21:44 Dose: 10 unit Levothyroxine Sodium (Synthroid -) 25 mcg PO AM [facility] Last Admin: 04/22/17 06:45 Dose: 25 mcg Lisinopril (Prinivil) 20 mg PO DAILY [facility] Last Admin: 04/22/17 09:15 Dose: 20 mg Metformin HCl (Glucophage -) 500 mg PO BIDI [facility] Last Admin: 04/20/17 18:14 Dose: Not Given Methylprednisolone Sodium Succinate (Solu-Medrol -) 40 mg IVPB DAILY [facility] Last Admin: 04/22/17 09:15 Dose: 40 mg Pt's Own (Nilotinib (Hcl [Tasigna])) 2 cap PO BID@0600,1500 [facility] Last Admin: 04/22/17 06:48 Dose: 2 cap Nystatin (Nystop Powder -) 1 applic TP DAILY [facility] Last Admin: 04/22/17 11:44 Dose: 1 applic Oxycodone HCl (Roxicodone -) 10 mg PO Q4H PRN PRN Reason: PAIN Last Admin: 04/22/17 09:15 Dose: 10 mg Ranitidine HCl (Zantac -) 150 mg PO BID [facility] Last Admin: 04/22/17 09:15 Dose: 150 mg A/P Acute on Chronic Diastolic Heart Failure Pleural Effusions Atelectasis COPD Fever HTN DM Hypothyroidism Morbid Obesity Anemia CML - continue IV lasix - monitor urine output, creatinine - completed empiric antibiotics - inhaled bronchodilators - O2 to keep SpO2 >90% - DVT prophylaxis
[2017-04-22] MEDS ORDERED: INSULIN (NOVOLOG) ASPART 100 UNITS/ML 10ML VIAL ONE (22:56)
[2017-04-22] MEDS: DOCUSATE SODIUM 100 MG CAPSULE (FP) PO SCH (23:08)
[2017-04-22] MEDS: INSULIN DETEMIR 100 UNITS/ML MDV SQ SCH (23:09)
[2017-04-23] MEDS: metFORMIN HCL 500 MG TABLET (FP) PO SCH ×2 (06:39→17:24)
[2017-04-23] MEDS: INSULIN SLIDING SCALE (NOVOLOG) 1 VIAL SQ SCH ×4 (06:40→22:05)
[2017-04-23] MEDS: GABAPENTIN 300 MG CAPSULE (FP) PO SCH ×3 (06:44→22:04)
[2017-04-23] MEDS: NILOTINIB HCL PO SCH ×2 (06:44→14:03)
[2017-04-23] MEDS: LEVOTHYROXINE NA 25 MCG TABLET (FP) PO SCH (06:45)
[2017-04-23 07:25] LABS: BASOPHIL 0.3 % (0-2.0); EOSINOPHIL 0.4 % (0-4.5); MCH 29.7 pg (25.7-33.7); MCHC 33.1 g/dl (32.0-36.0); MEAN CELL VOLUME 89.7 fl (80-96); NEUTROPHILS 73.2 % (42.8-82.8); PLATELET COUNT 145 K/MM3 (134-434); RDW 17.2 % (11.6-15.6); WHITE BLOOD COUNT 5.7 K/mm3 (4.0-10.0)
[2017-04-23 07:58] LABS: ANION GAP 7 (8-16); CO2 31 mmol/L (21-32); CREATININE 0.8 mg/dL (0.55-1.02); GLUCOSE,RANDOM 133 mg/dL (74-106)
[2017-04-23] MEDS ORDERED: PT OWN MED DRAWER 7, Y5N ONE ×3 (09:22→22:26)
[2017-04-23] MEDS: methylPREDNISolone NA SUCC 40 MG/1 ML VIAL IVPB SCH (09:32)
[2017-04-23] MEDS: HEPARIN NA (PORCINE) 5,000 UNITS/ML 1ML VIAL SQ SCH ×2 (09:34→22:05)
[2017-04-23] MEDS: FUROSEMIDE 40 MG/4 ML INJECTABLE VIAL IVPUSH SCH (09:39)
[2017-04-23] MEDS: ASPIRIN 81 MG CHEWABLE TABLETS PO SCH (09:39)
[2017-04-23] MEDS: LISINOPRIL 20 MG TABLET (FP) PO SCH (09:39)
[2017-04-23] MEDS: NYSTATIN POWDER 100,000 UNITS/GM - 15 GM TOPICAL POWDER TP SCH (09:40)
[2017-04-23] MEDS: COLLAGENASE CLOSTRIDIUM HIST. 30 GRAMS TUBE TP SCH (09:40)
[2017-04-23] MEDS: RANITIDINE HCL 150 MG TABLET (FP) PO SCH ×2 (09:40→22:04)
--- NOTE | 2017-04-23 09:41 | PN ---
Progress Note, Physician Chief Complaint: chf History of Present Illness: began feeling upset stomach and spitting up (no vomiting) last night; still upset stomach this am, very weak. sob feels worse than yesterday no cp no palpitations - Current Medication List Current Medications: Active Medications Acetaminophen (Tylenol -) 650 mg PO Q4H PRN PRN Reason: TEMP >100.5 Last Admin: 04/21/17 18:48 Dose: 650 mg Acetaminophen (Tylenol -) 650 mg PO Q4H PRN PRN Reason: PAIN Arformoterol Tartrate (Brovana (Restricted To Pulmonology/Resp) -) 1 amp NEB BID [facility] Last Admin: 04/22/17 22:30 Dose: 1 amp Aspirin (Asa -) 81 mg PO DAILY [facility] Last Admin: 04/22/17 09:15 Dose: 81 mg Collagenase (Santyl -) 1 applic TP DAILY [facility] Last Admin: 04/22/17 11:44 Dose: 1 applic Docusate Sodium (Colace -) 300 mg PO HS [facility] Last Admin: 04/22/17 23:08 Dose: 300 mg Furosemide (Lasix Injection -) 40 mg IVPUSH DAILY [facility] Gabapentin (Neurontin -) 600 mg PO TID [facility] Last Admin: 04/23/17 06:44 Dose: 600 mg Heparin Sodium (Porcine) (Heparin -) 5,000 unit SQ BID [facility] Last Admin: 04/22/17 23:08 Dose: 5,000 unit Insulin Aspart (Novolog Vial Sliding Scale -) 1 vial SQ ACHS [facility] PRN Reason: Protocol Last Admin: 04/23/17 06:40 Dose: Not Given Insulin Detemir (Levemir Vial) 10 units SQ [facility] Last Admin: 04/22/17 23:09 Dose: 10 unit Levothyroxine Sodium (Synthroid -) 25 mcg PO AM [facility] Last Admin: 04/23/17 06:45 Dose: 25 mcg Lisinopril (Prinivil) 20 mg PO DAILY [facility] Last Admin: 04/22/17 09:15 Dose: 20 mg Metformin HCl (Glucophage -) 500 mg PO BIDI [facility] Last Admin: 04/23/17 06:39 Dose: Not Given Methylprednisolone Sodium Succinate (Solu-Medrol -) 40 mg IVPB DAILY [facility] Last Admin: 04/22/17 09:15 Dose: 40 mg Pt's Own (Nilotinib (Hcl [Tasigna])) 2 cap PO BID@0600,1500 [facility] Last Admin: 04/23/17 06:44 Dose: 2 cap Nystatin (Nystop Powder -) 1 applic TP DAILY [facility] Last Admin: 04/22/17 11:44 Dose: 1 applic Oxycodone HCl (Roxicodone -) 10 mg PO Q4H PRN PRN Reason: PAIN Last Admin: 04/22/17 18:28 Dose: 10 mg Ranitidine HCl (Zantac -) 150 mg PO BID [facility] Last Admin: 04/22/17 23:08 Dose: 150 mg - Objective Vital Signs: Vital Signs Temperature 97.8 F 04/23/17 06:00 Pulse Rate 61 04/23/17 06:00 Respiratory Rate 18 04/23/17 08:54 Blood Pressure 135/56 04/23/17 06:00 O2 Sat by Pulse Oximetry (%) 100 04/23/17 08:54 Constitutional: Yes: No Distress, Calm, Obese Eyes: No: Sclera Icterus HENT: No: Nasal Congestion Cardiovascular: Yes: Regular Rate and Rhythm, JVD (to jaw), S1, S2, Other (PMI non diplaced). No: Gallop, Murmur Respiratory: Yes: CTA Bilaterally. No: Accessory Muscle Use, Rales, Wheezes Gastrointestinal: Yes: Normal Bowel Sounds, Soft. No: Tenderness Musculoskeletal: Yes: Other (No kyphosis) Extremities: No: Cold Edema: Yes (nonpitting) Integumentary: No: Jaundice Neurological: Yes: Alert, Oriented (x3) Psychiatric: No: Agitated Labs: CBC, BMP 04/23/17 06:30 04/23/17 06:30 INR, PTT INR 1.25 (0.82-1.09) H 04/19/17 22:41 Assessment/Plan echo 06/2016: nl lv/rv, mild rommel, mac, mild mr a/p: 66 yo f with hx htn, dm, hld, hypothyroid, obesity, possible copd, CML/ anemia, sent from [place] for general weakness/fever. acute on chronic diastolic chf: -admitted with sob, bilateral effusions on CT scan, no a.e. copd or PNA in opinion of pulmonary consultants -BNP 1000 here (baseline 400 - 5K) -initially received IVF here, stopped 04/21. -dr crum's note 04/21 advises lasix 40mg IVP x1 but MAR shows no IV dose given (only lasix 20mg po qd) -04/22: marked JVD--start lasix 80 iv x 1 today, then 40 iv daily starting tomorrow -04/23: neg neg 2500cc yesterday. labs stable. cont lasix 40 iv daily -cannot stand for wts -cont to monitor I/O and bmp trend, rpt cxr in am -rpt echo venous ins/lymphedema: -chronic swelling, stable anemia: -baseline values in past here run hgb 7s-9s -came in with hgb 7s, down to 6s, s/p PRBCs 04/21 -w/u and mgmt per pmd htn: -bp stable -cont lisinopril hld: - Given diabetes, would benefit from statin therapy, can initiate as outpatient once acute issues resolve.
--- NOTE | 2017-04-23 09:43 | PN ---
Physical Exam: SUBJECTIVE: Patient seen and examined at bedside. Says feels better than yesterday. OBJECTIVE: Vital Signs Period Temp Pulse Resp BP Sys/Machado Pulse Ox Last 24 Hr 97.8 F-98.5 F 61-79 16-18 135-176/56-77 94-100 GENERAL: The patient is awake, alert, and fully oriented, in no acute distress. HEAD: Normal with no signs of trauma. EYES: PERRL, extraocular movements intact, sclera anicteric, conjunctiva clear. No ptosis. LUNGS: Bibasilar rales and rhonchi. HEART: Regular rate and rhythm, S1, S2 without murmur, rub or gallop. ABDOMEN: Soft, nontender, nondistended, normoactive bowel sounds, no guarding, no rebound LOWER EXTREMITIES: 4+ edema with extensive venous stasis changes bilaterally; right foot wound not visualized; warm, well-perfused NEUROLOGICAL: Cranial nerves II through XII grossly intact. Normal speech, gait not observed. Laboratory Results - last 24 hr 04/22/17 04/22/17 04/22/17 11:40 17:27 23:05 WBC RBC Hgb Hct MCV MCH MCHC RDW Plt Count MPV Neutrophils % Lymphocytes % Monocytes % Eosinophils % Basophils % Sodium Potassium Chloride Carbon Dioxide Anion Gap BUN Creatinine POC Glucometer 248 324 231 Random Glucose Calcium 04/23/17 04/23/17 04/23/17 06:30 06:30 06:37 WBC 5.7 D RBC 3.04 L Hgb 9.0 L Hct 27.2 L MCV 89.7 MCH 29.7 MCHC 33.1 RDW 17.2 H Plt Count 145 MPV 9.0 Neutrophils % 73.2 Lymphocytes % 17.1 D Monocytes % 9.0 Eosinophils % 0.4 D Basophils % 0.3 Sodium 141 Potassium 4.3 Chloride 103 Carbon Dioxide 31 Anion Gap 7 L BUN 36 H Creatinine 0.8 POC Glucometer 134 Random Glucose 133 H Calcium 8.0 L Current Medications Generic Name Dose Route Start Last Admin Trade Name Freq PRN Reason Stop Dose Admin Acetaminophen 650 mg 04/20/17 15:53 04/21/17 18:48 Tylenol - PO 650 mg Q4H PRN Administration TEMP >100.5 Acetaminophen 650 mg 04/21/17 11:30 Tylenol - PO Q4H PRN PAIN Arformoterol Tartrate 1 amp 04/20/17 13:45 04/23/17 10:00 Brovana (Restricted To Pulmonology/Resp) - NEB 1 amp BID JOVITA Administration Aspirin 81 mg 04/20/17 10:00 04/23/17 09:39 Asa - PO 81 mg DAILY JOVITA Administration Benzocaine 1 applic 04/23/17 12:48 Americaine Ointment - [place] PRN PRN PAIN Collagenase 1 applic 04/20/17 10:00 04/23/17 09:40 Santyl - TP 1 applic DAILY JOVITA Administration Docusate Sodium 300 mg 04/20/17 22:00 04/22/17 23:08 Colace - PO 300 mg HS JOVITA Administration Furosemide 40 mg 04/23/17 10:00 04/23/17 09:39 Lasix Injection - IVPUSH 40 mg DAILY JOVITA Administration Gabapentin 600 mg 04/20/17 06:00 04/23/17 14:02 Neurontin - PO 600 mg TID JOVITA Administration Heparin Sodium (Porcine) 5,000 unit 04/20/17 10:00 04/23/17 09:34 Heparin - SQ 5,000 unit BID JOVITA Administration Insulin Aspart 1 vial 04/20/17 07:00 04/23/17 17:24 Novolog Vial Sliding Scale - SQ 6 units ACHS JOVITA Administration Protocol Insulin Detemir 10 units 04/20/17 22:00 04/22/17 23:09 Levemir Vial SQ 10 unit HS JOVITA Administration Levothyroxine Sodium 25 mcg 04/20/17 07:00 04/23/17 06:45 Synthroid - PO 25 mcg AM JOVITA Administration Lisinopril 20 mg 04/20/17 10:00 04/23/17 09:39 Prinivil PO 20 mg DAILY JOVITA Administration Metformin HCl 500 mg 04/20/17 07:00 04/23/17 17:24 Glucophage - PO 500 mg BIDI JOVITA Administration Pt's Own (Nilotinib 2 cap 04/22/17 06:00 04/23/17 14:03 Hcl [Tasigna]) PO 2 cap BID@0600,1500 JOVITA Administration Nystatin 1 applic 04/20/17 11:00 04/23/17 09:40 Nystop Powder - TP 1 applic DAILY JOVITA Administration Ondansetron HCl 4 mg 04/23/17 14:38 Zofran Injection IVPB Q6H PRN NAUSEA Oxycodone HCl 10 mg 04/20/17 01:02 04/23/17 18:54 Roxicodone - PO 10 mg Q4H PRN Administration PAIN Prednisone 30 mg 04/24/17 10:00 Deltasone - PO 04/25/17 10:01 DAILY JOVITA Ranitidine HCl 150 mg 04/20/17 10:00 04/23/17 09:40 Zantac - PO 150 mg BID JOVITA Administration ASSESSMENT/PLAN 66 year-old female with a PMH significant for HTN, HLD, diastolic heart failure , IDDM, CML on chemotherapy, COPD, and hypothyroidism. Admitted in respiratory failure with fever. Sepsis, resolved Acute on chronic diastolic heart failure --Echo 06/2016: nl lv/rv, mild rommel, mac, mild mr --bilateral pleural effusions seen on CT 04/20 --continue Lasix IV 40mg daily --daily weights --repeat echo pending Acute respiratory failure, improved --likely multifactorial: chronic COPD, CHF exacerbation, anemia --CTA negative for PE --BIPAP PRN COPD --switch IV steroids to PO and taper --continue Brovana Chronic myelocytic leukemia Anemia --transfused 1U PRBC on 04/21 with good response, Hgb 6.8-->9.4 --h/h remains stable IDDM --Novolog sliding scale coverage --Levemir 10U qhs Diabetic foot ulcer --seen and evaluated by vascular --collagenase to wound daily Venous insufficiency/chronic lower extremity lymphedema Hypertension --BP well-controlled --continue lisinopril Hypothyroidism --continue levothyroxine DVT prophylaxis: subq heparin Visit type - Emergency Visit Emergency Visit: Yes ED Registration Date: 04/20/17 Care time: The patient presented to the Emergency Department on the above date and was hospitalized for further evaluation of their emergent condition. - New Patient This patient is new to me today: Yes Date on this admission: 04/23/17 - Critical Care Critical Care patient: No
[2017-04-23] MEDS: ARFORMOTEROL TARTRATE 15 MCG/2 ML VIAL NEB SCH ×2 (10:00→21:32)
[2017-04-23] MEDS ORDERED: BENZOCAINE 28 GM HEMORRHOIDAL OINTMENT PR PRN (12:48)
[2017-04-23] MEDS ORDERED: ONDANSETRON 4 MG/2 ML VIAL IVPB PRN (14:38)
--- NOTE | 2017-04-23 14:38 | PN ---
Progress Note (short form) - Note Progress Note: PULMONARY Still diuresing well with lasix. c/o epigastric pain and nausea. +productive cough. No fevers or chills. Last Vital Signs Temp Pulse Resp BP Pulse Ox 98.3 F 62 20 179/75 98 04/23/17 13:59 04/23/17 13:59 04/23/17 13:59 04/23/17 13:59 04/23/17 10:16 Intake & Output 04/20/17 04/21/17 04/22/17 04/23/17 23:59 23:59 23:59 23:59 Intake Total 6473 539 1858 100 Output Total 4400 3300 Balance 1989 770 -2570 -3200 Weight 253 lb 1.451 oz Gen: NAD at rest Heart: RRR Lung: bibasilar rales Abd: soft, nontender Ext: + edema CBC, BMP 04/23/17 06:30 04/23/17 06:30 Active Medications Acetaminophen (Tylenol -) 650 mg PO Q4H PRN PRN Reason: TEMP >100.5 Last Admin: 04/21/17 18:48 Dose: 650 mg Acetaminophen (Tylenol -) 650 mg PO Q4H PRN PRN Reason: PAIN Arformoterol Tartrate (Brovana (Restricted To Pulmonology/Resp) -) 1 amp NEB BID [facility] Last Admin: 04/23/17 10:00 Dose: 1 amp Aspirin (Asa -) 81 mg PO DAILY [facility] Last Admin: 04/23/17 09:39 Dose: 81 mg Benzocaine (Americaine Ointment -) 1 applic [place] PRN PRN PRN Reason: PAIN Collagenase (Santyl -) 1 applic TP DAILY [facility] Last Admin: 04/23/17 09:40 Dose: 1 applic Docusate Sodium (Colace -) 300 mg PO HS [facility] Last Admin: 04/22/17 23:08 Dose: 300 mg Furosemide (Lasix Injection -) 40 mg IVPUSH DAILY [facility] Last Admin: 04/23/17 09:39 Dose: 40 mg Gabapentin (Neurontin -) 600 mg PO TID [facility] Last Admin: 04/23/17 14:02 Dose: 600 mg Heparin Sodium (Porcine) (Heparin -) 5,000 unit SQ BID [facility] Last Admin: 04/23/17 09:34 Dose: 5,000 unit Insulin Aspart (Novolog Vial Sliding Scale -) 1 vial SQ ACHS [facility] PRN Reason: Protocol Last Admin: 04/23/17 12:13 Dose: 4 units Insulin Detemir (Levemir Vial) 10 units SQ HS [facility] Last Admin: 04/22/17 23:09 Dose: 10 unit Levothyroxine Sodium (Synthroid -) 25 mcg PO AM [facility] Last Admin: 04/23/17 06:45 Dose: 25 mcg Lisinopril (Prinivil) 20 mg PO DAILY [facility] Last Admin: 04/23/17 09:39 Dose: 20 mg Metformin HCl (Glucophage -) 500 mg PO BIDI [facility] Last Admin: 04/23/17 06:39 Dose: Not Given Pt's Own (Nilotinib (Hcl [Tasigna])) 2 cap PO BID@0600,1500 [facility] Last Admin: 04/23/17 14:03 Dose: 2 cap Nystatin (Nystop Powder -) 1 applic TP DAILY [facility] Last Admin: 04/23/17 09:40 Dose: 1 applic Oxycodone HCl (Roxicodone -) 10 mg PO Q4H PRN PRN Reason: PAIN Last Admin: 04/22/17 18:28 Dose: 10 mg Prednisone (Deltasone -) 30 mg PO DAILY [facility] Stop: 04/25/17 10:01 Ranitidine HCl (Zantac -) 150 mg PO BID [facility] Last Admin: 04/23/17 09:40 Dose: 150 mg A/P Acute on Chronic Diastolic Heart Failure Pleural Effusions Atelectasis COPD Fever HTN DM Hypothyroidism Morbid Obesity Anemia CML - continue IV lasix - monitor urine output, creatinine - will start antiemetic - completed empiric antibiotics - inhaled bronchodilators - O2 to keep SpO2 >90% - DVT prophylaxis
--- NOTE | 2017-04-23 16:49 | PN ---
Progress Note, Physician History of Present Illness: Pt is weak but denies shortness of breath. Denies chills, no productive cough. No other specific complaints. - Current Medication List Current Medications: Active Medications Acetaminophen (Tylenol -) 650 mg PO Q4H PRN PRN Reason: TEMP >100.5 Last Admin: 04/21/17 18:48 Dose: 650 mg Acetaminophen (Tylenol -) 650 mg PO Q4H PRN PRN Reason: PAIN Arformoterol Tartrate (Brovana (Restricted To Pulmonology/Resp) -) 1 amp NEB BID [facility] Last Admin: 04/23/17 10:00 Dose: 1 amp Aspirin (Asa -) 81 mg PO DAILY [facility] Last Admin: 04/23/17 09:39 Dose: 81 mg Benzocaine (Americaine Ointment -) 1 applic [place] PRN PRN PRN Reason: PAIN Collagenase (Santyl -) 1 applic TP DAILY [facility] Last Admin: 04/23/17 09:40 Dose: 1 applic Docusate Sodium (Colace -) 300 mg PO HS [facility] Last Admin: 04/22/17 23:08 Dose: 300 mg Furosemide (Lasix Injection -) 40 mg IVPUSH DAILY [facility] Last Admin: 04/23/17 09:39 Dose: 40 mg Gabapentin (Neurontin -) 600 mg PO TID [facility] Last Admin: 04/23/17 14:02 Dose: 600 mg Heparin Sodium (Porcine) (Heparin -) 5,000 unit SQ BID [facility] Last Admin: 04/23/17 09:34 Dose: 5,000 unit Insulin Aspart (Novolog Vial Sliding Scale -) 1 vial SQ ACHS [facility] PRN Reason: Protocol Last Admin: 04/23/17 12:13 Dose: 4 units Insulin Detemir (Levemir Vial) 10 units SQ HS [facility] Last Admin: 04/22/17 23:09 Dose: 10 unit Levothyroxine Sodium (Synthroid -) 25 mcg PO AM [facility] Last Admin: 04/23/17 06:45 Dose: 25 mcg Lisinopril (Prinivil) 20 mg PO DAILY [facility] Last Admin: 04/23/17 09:39 Dose: 20 mg Metformin HCl (Glucophage -) 500 mg PO BIDI [facility] Last Admin: 04/23/17 06:39 Dose: Not Given Pt's Own (Nilotinib (Hcl [Tasigna])) 2 cap PO BID@0600,1500 [facility] Last Admin: 04/23/17 14:03 Dose: 2 cap Nystatin (Nystop Powder -) 1 applic TP DAILY [facility] Last Admin: 04/23/17 09:40 Dose: 1 applic Ondansetron HCl (Zofran Injection) 4 mg IVPB Q6H PRN PRN Reason: NAUSEA Oxycodone HCl (Roxicodone -) 10 mg PO Q4H PRN PRN Reason: PAIN Last Admin: 04/22/17 18:28 Dose: 10 mg Prednisone (Deltasone -) 30 mg PO DAILY [facility] Stop: 04/25/17 10:01 Ranitidine HCl (Zantac -) 150 mg PO BID [facility] Last Admin: 04/23/17 09:40 Dose: 150 mg - Objective Vital Signs: Vital Signs Temperature 98.3 F 04/23/17 13:59 Pulse Rate 62 04/23/17 13:59 Respiratory Rate 20 04/23/17 13:59 Blood Pressure 179/75 04/23/17 13:59 O2 Sat by Pulse Oximetry (%) 98 04/23/17 10:16 Constitutional: Yes: No Distress HENT: Yes: Atraumatic Neck: Yes: Supple Cardiovascular: Yes: Regular Rate and Rhythm Respiratory: Yes: Regular, Other (no rhonchi/wheeze) Gastrointestinal: Yes: Normal Bowel Sounds, Soft Genitourinary: Yes: WNL Integumentary: Yes: WNL Neurological: Yes: WNL Labs: CBC, BMP 04/23/17 06:30 04/23/17 06:30 INR, PTT INR 1.25 (0.82-1.09) H 04/19/17 22:41 Problem List - Problems (1) Acute respiratory failure Code(s): J96.00 - ACUTE RESPIRATORY FAILURE, UNSP W HYPOXIA OR HYPERCAPNIA Qualifiers: Respiratory failure complication: hypoxia Qualified Code(s): J96.01 - Acute respiratory failure with hypoxia (2) COPD (chronic obstructive pulmonary disease) Code(s): J44.9 - CHRONIC OBSTRUCTIVE PULMONARY DISEASE, UNSPECIFIED (3) CHF (congestive heart failure) Code(s): I50.9 - HEART FAILURE, UNSPECIFIED Qualifiers: Congestive heart failure type: unspecified congestive heart failure type Congestive heart failure chronicity: acute Qualified Code(s): I50.9 - Heart failure, unspecified (4) CML (chronic myelocytic leukemia) Code(s): C92.10 - CHRONIC MYELOID LEUK, BCR/ABL-POSITIVE, NOT ACHIEVE REMIS (5) Diabetes Code(s): E11.9 - TYPE 2 DIABETES MELLITUS WITHOUT COMPLICATIONS Assessment/Plan Pt with less shortness of breath No obvious findings suggesting PNA at this time continue monitor off antibiotics
[2017-04-23] MEDS: oxyCODONE HCL 5 MG TABLET PO PRN (18:54)
[2017-04-23] MEDS: DOCUSATE SODIUM 100 MG CAPSULE (FP) PO SCH (22:04)
[2017-04-23] MEDS: INSULIN DETEMIR 100 UNITS/ML MDV SQ SCH (22:05)
[2017-04-24] MEDS: oxyCODONE HCL 5 MG TABLET PO PRN ×2 (04:49→12:15)
[2017-04-24] MEDS: GABAPENTIN 300 MG CAPSULE (FP) PO SCH ×4 (05:59→21:53)
[2017-04-24] MEDS: NILOTINIB HCL PO SCH ×2 (05:59→19:12)
[2017-04-24] MEDS: metFORMIN HCL 500 MG TABLET (FP) PO SCH ×2 (05:59→17:53)
[2017-04-24] MEDS: INSULIN SLIDING SCALE (NOVOLOG) 1 VIAL SQ SCH ×4 (05:59→22:02)
[2017-04-24] MEDS: LEVOTHYROXINE NA 25 MCG TABLET (FP) PO SCH (06:00)
[2017-04-24 07:37] LABS: BASOPHIL 0.1 % (0-2.0); EOSINOPHIL 1.5 % (0-4.5); MCH 29.6 pg (25.7-33.7); MCHC 32.7 g/dl (32.0-36.0); MEAN CELL VOLUME 90.5 fl (80-96); MEAN PLT VOLUME 8.9 fl (7.5-11.1); NEUTROPHILS 65.4 % (42.8-82.8); PLATELET COUNT 160 K/MM3 (134-434); WHITE BLOOD COUNT 4.4 K/mm3 (4.0-10.0)
[2017-04-24 08:17] LABS: ALBUMIN 2.5 g/dl (3.4-5.0); ANION GAP 5 (8-16); BILIRUBIN,TOTAL 0.3 mg/dL (0.2-1.0); CO2 33 mmol/L (21-32); CREATININE 0.7 mg/dL (0.55-1.02); GLUCOSE,RANDOM 105 mg/dL (74-106); MAGNESIUM 2.2 mg/dL (1.8-2.4); PHOSPHOROUS 3.1 mg/dL (2.5-4.9); SGOT/AST 18 U/L (15-37); SGPT/ALT 26 U/L (12-78); TOT PROT 6.9 g/dl (6.4-8.2)
[2017-04-24 08:18] LABS: ALK PHOS 104 U/L (45-117)
--- NOTE | 2017-04-24 08:44 | PN ---
Progress Note, Physician Chief Complaint: chf History of Present Illness: nausea resolved still feels weak no sob/PND no cp, palpit leg swelling stable - Current Medication List Current Medications: Active Medications Acetaminophen (Tylenol -) 650 mg PO Q4H PRN PRN Reason: TEMP >100.5 Last Admin: 04/21/17 18:48 Dose: 650 mg Acetaminophen (Tylenol -) 650 mg PO Q4H PRN PRN Reason: PAIN Arformoterol Tartrate (Brovana (Restricted To Pulmonology/Resp) -) 1 amp NEB BID [facility] Last Admin: 04/23/17 21:32 Dose: Not Given Aspirin (Asa -) 81 mg PO DAILY [facility] Last Admin: 04/23/17 09:39 Dose: 81 mg Benzocaine (Americaine Ointment -) 1 applic [place] PRN PRN PRN Reason: PAIN Last Admin: 04/23/17 22:06 Dose: 1 applic Collagenase (Santyl -) 1 applic TP DAILY [facility] Last Admin: 04/23/17 09:40 Dose: 1 applic Docusate Sodium (Colace -) 300 mg PO HS [facility] Last Admin: 04/23/17 22:04 Dose: 300 mg Furosemide (Lasix Injection -) 40 mg IVPUSH DAILY [facility] Last Admin: 04/23/17 09:39 Dose: 40 mg Gabapentin (Neurontin -) 600 mg PO TID [facility] Last Admin: 04/24/17 05:59 Dose: Not Given Heparin Sodium (Porcine) (Heparin -) 5,000 unit SQ BID [facility] Last Admin: 04/23/17 22:05 Dose: 5,000 unit Insulin Aspart (Novolog Vial Sliding Scale -) 1 vial SQ ACHS [facility] PRN Reason: Protocol Last Admin: 04/24/17 05:59 Dose: Not Given Insulin Detemir (Levemir Vial) 10 units SQ HS [facility] Last Admin: 04/23/17 22:05 Dose: 10 unit Levothyroxine Sodium (Synthroid -) 25 mcg PO AM [facility] Last Admin: 04/24/17 06:00 Dose: 25 mcg Lisinopril (Prinivil) 20 mg PO DAILY [facility] Last Admin: 04/23/17 09:39 Dose: 20 mg Metformin HCl (Glucophage -) 500 mg PO BIDI [facility] Last Admin: 04/24/17 05:59 Dose: 500 mg Pt's Own (Nilotinib (Hcl [Tasigna])) 2 cap PO BID@0600,1500 [facility] Last Admin: 04/24/17 05:59 Dose: 2 cap Nystatin (Nystop Powder -) 1 applic TP DAILY [facility] Last Admin: 04/23/17 09:40 Dose: 1 applic Ondansetron HCl (Zofran Injection) 4 mg IVPB Q6H PRN PRN Reason: NAUSEA Oxycodone HCl (Roxicodone -) 10 mg PO Q4H PRN PRN Reason: PAIN Last Admin: 04/24/17 04:49 Dose: 10 mg Prednisone (Deltasone -) 30 mg PO DAILY [facility] Stop: 04/25/17 10:01 Ranitidine HCl (Zantac -) 150 mg PO BID [facility] Last Admin: 04/23/17 22:04 Dose: 150 mg - Objective Vital Signs: Vital Signs Temperature 98.4 F 04/24/17 06:00 Pulse Rate 54 L 04/24/17 06:00 Respiratory Rate 20 04/24/17 06:00 Blood Pressure 148/71 04/24/17 06:00 O2 Sat by Pulse Oximetry (%) 97 04/23/17 20:55 Constitutional: Yes: Obese Cardiovascular: Yes: Regular Rate and Rhythm, JVD, S1, S2. No: Gallop, Murmur Respiratory: Yes: Regular, CTA Bilaterally. No: Accessory Muscle Use, Rales, Wheezes Extremities: No: Cold Edema: Yes (nonpitting, stable) Neurological: Yes: Alert, Oriented Psychiatric: No: Agitated Labs: CBC, BMP 04/24/17 07:24 04/24/17 07:24 INR, PTT INR 1.25 (0.82-1.09) H 04/19/17 22:41 Assessment/Plan echo 06/2016: nl lv/rv, mild rommel, mac, mild mr a/p: 66 yo f with hx htn, dm, hld, hypothyroid, obesity, possible copd, CML/ anemia, sent from [place] for general weakness/fever. acute on chronic diastolic chf: -admitted with sob, bilateral effusions on CT scan, no a.e. copd or PNA in opinion of pulmonary consultants -BNP 1000 here (baseline 400 - 5K) -initially received IVF here, stopped 04/21. -dr crum's note 04/21 advises lasix 40mg IVP x1 but MAR shows no IV dose given (only lasix 20mg po qd) -04/22: marked JVD--start lasix 80 iv x 1 today, then 40 iv daily starting tomorrow -04/23: neg neg 2500cc yesterday. labs stable. cont lasix 40 iv daily -04/24: UOP yest 4900 cc (confirms she is only drinking 1-3 small cups water per day); labs stable (bicarb trending up). cxr today with moderate effusions and vasc engorgement pattern--cont lasix 40 iv qd -rpt echo -cannot stand for wts--cont to monitor I/O and bmp trend, rpt cxr in am venous ins/lymphedema: -chronic swelling, stable anemia: -baseline values in past here run hgb 7s-9s -came in with hgb 7s, down to 6s, s/p PRBCs 04/21 -w/u and mgmt per pmd htn: -bp stable -cont lisinopril hld: - Given diabetes, would benefit from statin therapy, can initiate as outpatient once acute issues resolve.
[2017-04-24] MEDS: LISINOPRIL 20 MG TABLET (FP) PO SCH (09:26)
[2017-04-24] MEDS: ASPIRIN 81 MG CHEWABLE TABLETS PO SCH (09:26)
[2017-04-24] MEDS: RANITIDINE HCL 150 MG TABLET (FP) PO SCH ×2 (09:27→21:53)
[2017-04-24] MEDS: HEPARIN NA (PORCINE) 5,000 UNITS/ML 1ML VIAL SQ SCH ×2 (09:29→21:52)
[2017-04-24] MEDS: FUROSEMIDE 40 MG/4 ML INJECTABLE VIAL IVPUSH SCH (09:29)
[2017-04-24] MEDS: predniSONE 10 MG TABLET (UD) PO SCH (10:17)
[2017-04-24] MEDS: NYSTATIN POWDER 100,000 UNITS/GM - 15 GM TOPICAL POWDER TP SCH (10:17)
[2017-04-24] MEDS: COLLAGENASE CLOSTRIDIUM HIST. 30 GRAMS TUBE TP SCH (10:17)
[2017-04-24] MEDS: ARFORMOTEROL TARTRATE 15 MCG/2 ML VIAL NEB SCH ×2 (10:31→22:49)
--- NOTE | 2017-04-24 12:07 | PN ---
Progress Note, Physician - Current Medication List Current Medications: Active Medications Acetaminophen (Tylenol -) 650 mg PO Q4H PRN PRN Reason: TEMP >100.5 Last Admin: 04/21/17 18:48 Dose: 650 mg Acetaminophen (Tylenol -) 650 mg PO Q4H PRN PRN Reason: PAIN Arformoterol Tartrate (Brovana (Restricted To Pulmonology/Resp) -) 1 amp NEB BID [facility] Last Admin: 04/23/17 21:32 Dose: Not Given Aspirin (Asa -) 81 mg PO DAILY [facility] Last Admin: 04/24/17 09:26 Dose: 81 mg Benzocaine (Americaine Ointment -) 1 applic [place] PRN PRN PRN Reason: PAIN Last Admin: 04/23/17 22:06 Dose: 1 applic Collagenase (Santyl -) 1 applic TP DAILY [facility] Last Admin: 04/24/17 10:17 Dose: 1 applic Docusate Sodium (Colace -) 300 mg PO HS [facility] Last Admin: 04/23/17 22:04 Dose: 300 mg Furosemide (Lasix Injection -) 40 mg IVPUSH DAILY [facility] Last Admin: 04/24/17 09:29 Dose: 40 mg Gabapentin (Neurontin -) 600 mg PO TID [facility] Last Admin: 04/24/17 09:25 Dose: 600 mg Heparin Sodium (Porcine) (Heparin -) 5,000 unit SQ BID [facility] Last Admin: 04/24/17 09:29 Dose: 5,000 unit Insulin Aspart (Novolog Vial Sliding Scale -) 1 vial SQ ACHS [facility] PRN Reason: Protocol Last Admin: 04/24/17 05:59 Dose: Not Given Insulin Detemir (Levemir Vial) 10 units SQ HS [facility] Last Admin: 04/23/17 22:05 Dose: 10 unit Levothyroxine Sodium (Synthroid -) 25 mcg PO AM [facility] Last Admin: 04/24/17 06:00 Dose: 25 mcg Lisinopril (Prinivil) 20 mg PO DAILY [facility] Last Admin: 04/24/17 09:26 Dose: 20 mg Metformin HCl (Glucophage -) 500 mg PO BIDI [facility] Last Admin: 04/24/17 05:59 Dose: 500 mg Pt's Own (Nilotinib (Hcl [Tasigna])) 2 cap PO BID@0600,1500 [facility] Last Admin: 04/24/17 05:59 Dose: 2 cap Nystatin (Nystop Powder -) 1 applic TP DAILY [facility] Last Admin: 04/24/17 10:17 Dose: 1 applic Ondansetron HCl (Zofran Injection) 4 mg IVPB Q6H PRN PRN Reason: NAUSEA Oxycodone HCl (Roxicodone -) 10 mg PO Q4H PRN PRN Reason: PAIN Last Admin: 04/24/17 04:49 Dose: 10 mg Prednisone (Deltasone -) 30 mg PO DAILY [facility] Stop: 04/25/17 10:01 Last Admin: 04/24/17 10:17 Dose: 30 mg Ranitidine HCl (Zantac -) 150 mg PO BID [facility] Last Admin: 04/24/17 09:27 Dose: 150 mg - Objective Vital Signs: Vital Signs Temperature 36.6 C 04/24/17 10:00 Pulse Rate 59 L 04/24/17 10:00 Respiratory Rate 19 04/24/17 10:00 Blood Pressure 136/55 04/24/17 10:00 O2 Sat by Pulse Oximetry (%) 100 04/24/17 09:00 Labs: CBC, BMP 04/24/17 07:24 04/24/17 07:24 INR, PTT INR 1.25 (0.82-1.09) H 04/19/17 22:41 Problem List - Problems (1) Sepsis Code(s): A41.9 - SEPSIS, UNSPECIFIED ORGANISM (2) Acute respiratory failure Code(s): J96.00 - ACUTE RESPIRATORY FAILURE, UNSP W HYPOXIA OR HYPERCAPNIA Qualifiers: Respiratory failure complication: hypoxia Qualified Code(s): J96.01 - Acute respiratory failure with hypoxia (3) Pneumonia Code(s): J18.9 - PNEUMONIA, UNSPECIFIED ORGANISM (4) COPD (chronic obstructive pulmonary disease) Code(s): J44.9 - CHRONIC OBSTRUCTIVE PULMONARY DISEASE, UNSPECIFIED (5) Anemia Code(s): D64.9 - ANEMIA, UNSPECIFIED Qualifiers: Anemia type: unspecified type Qualified Code(s): D64.9 - Anemia, unspecified (6) CHF (congestive heart failure) Code(s): I50.9 - HEART FAILURE, UNSPECIFIED Qualifiers: Congestive heart failure type: unspecified congestive heart failure type Congestive heart failure chronicity: acute Qualified Code(s): I50.9 - Heart failure, unspecified (7) CML (chronic myelocytic leukemia) Code(s): C92.10 - CHRONIC MYELOID LEUK, BCR/ABL-POSITIVE, NOT ACHIEVE REMIS (8) Diabetes Code(s): E11.9 - TYPE 2 DIABETES MELLITUS WITHOUT COMPLICATIONS (9) Diabetic foot ulcer Code(s): E11.621 - TYPE 2 DIABETES MELLITUS WITH FOOT ULCER L97.509 - NON-PRESSURE CHRONIC ULCER OTH PRT UNSP FOOT W UNSP SEVERITY Qualifiers: Diabetes mellitus type: other specified (including STORM) Laterality: bilateral (10) Hypertension Code(s): I10 - ESSENTIAL (PRIMARY) HYPERTENSION (11) Hypothyroid Code(s): E03.9 - HYPOTHYROIDISM, UNSPECIFIED
[2017-04-24] MEDS ORDERED: INSULIN (NOVOLOG) ASPART 100 UNITS/ML 10ML VIAL ONE ×3 (12:52→21:38)
--- NOTE | 2017-04-24 14:32 | PN ---
Progress Note, Physician History of Present Illness: pulmonary alert,feeling better,,less cough -cp,less dyspneic,diuresing well - Current Medication List Current Medications: Active Medications Acetaminophen (Tylenol -) 650 mg PO Q4H PRN PRN Reason: TEMP >100.5 Last Admin: 04/21/17 18:48 Dose: 650 mg Acetaminophen (Tylenol -) 650 mg PO Q4H PRN PRN Reason: PAIN Last Admin: 04/24/17 12:15 Dose: 650 mg Arformoterol Tartrate (Brovana (Restricted To Pulmonology/Resp) -) 1 amp NEB BID [facility] Last Admin: 04/24/17 10:31 Dose: 1 amp Aspirin (Asa -) 81 mg PO DAILY [facility] Last Admin: 04/24/17 09:26 Dose: 81 mg Benzocaine (Americaine Ointment -) 1 applic [place] PRN PRN PRN Reason: PAIN Last Admin: 04/23/17 22:06 Dose: 1 applic Collagenase (Santyl -) 1 applic TP DAILY [facility] Last Admin: 04/24/17 10:17 Dose: 1 applic Docusate Sodium (Colace -) 300 mg PO HS [facility] Last Admin: 04/23/17 22:04 Dose: 300 mg Furosemide (Lasix Injection -) 40 mg IVPUSH DAILY [facility] Last Admin: 04/24/17 09:29 Dose: 40 mg Gabapentin (Neurontin -) 600 mg PO TID [facility] Last Admin: 04/24/17 09:25 Dose: 600 mg Heparin Sodium (Porcine) (Heparin -) 5,000 unit SQ BID [facility] Last Admin: 04/24/17 09:29 Dose: 5,000 unit Insulin Aspart (Novolog Vial Sliding Scale -) 1 vial SQ ACHS [facility] PRN Reason: Protocol Last Admin: 04/24/17 12:13 Dose: 4 units Insulin Detemir (Levemir Vial) 10 units SQ HS [facility] Last Admin: 04/23/17 22:05 Dose: 10 unit Levothyroxine Sodium (Synthroid -) 25 mcg PO AM [facility] Last Admin: 04/24/17 06:00 Dose: 25 mcg Lisinopril (Prinivil) 20 mg PO DAILY [facility] Last Admin: 04/24/17 09:26 Dose: 20 mg Metformin HCl (Glucophage -) 500 mg PO BIDI [facility] Last Admin: 04/24/17 05:59 Dose: 500 mg Pt's Own (Nilotinib (Hcl [Tasigna])) 2 cap PO BID@0600,1500 [facility] Last Admin: 04/24/17 05:59 Dose: 2 cap Nystatin (Nystop Powder -) 1 applic TP DAILY [facility] Last Admin: 04/24/17 10:17 Dose: 1 applic Ondansetron HCl (Zofran Injection) 4 mg IVPB Q6H PRN PRN Reason: NAUSEA Oxycodone HCl (Roxicodone -) 10 mg PO Q4H PRN PRN Reason: PAIN Last Admin: 04/24/17 12:15 Dose: 10 mg Prednisone (Deltasone -) 30 mg PO DAILY [facility] Stop: 04/25/17 10:01 Last Admin: 04/24/17 10:17 Dose: 30 mg Ranitidine HCl (Zantac -) 150 mg PO BID [facility] Last Admin: 04/24/17 09:27 Dose: 150 mg - Objective Vital Signs: Vital Signs Temperature 97.9 F 04/24/17 10:00 Pulse Rate 59 L 04/24/17 10:00 Respiratory Rate 19 04/24/17 10:00 Blood Pressure 136/55 04/24/17 10:00 O2 Sat by Pulse Oximetry (%) 100 04/24/17 09:00 Constitutional: Yes: Well Nourished, Calm Eyes: Yes: WNL HENT: Yes: Nasal Congestion Neck: Yes: WNL Cardiovascular: Yes: Regular Rate and Rhythm, S1, S2 Respiratory: Yes: Rales (bibasilar rales) Gastrointestinal: Yes: Normal Bowel Sounds, Soft Extremities: Yes: WNL Edema: Yes Labs: CBC, BMP 04/24/17 07:24 04/24/17 07:24 INR, PTT INR 1.25 (0.82-1.09) H 04/19/17 22:41 - ....Imaging Chest X-ray: Report Reviewed, Image Reviewed Problem List - Problems (1) Acute respiratory failure Code(s): J96.00 - ACUTE RESPIRATORY FAILURE, UNSP W HYPOXIA OR HYPERCAPNIA Qualifiers: Respiratory failure complication: hypoxia Qualified Code(s): J96.01 - Acute respiratory failure with hypoxia (2) COPD (chronic obstructive pulmonary disease) Code(s): J44.9 - CHRONIC OBSTRUCTIVE PULMONARY DISEASE, UNSPECIFIED (3) Abdominal pain Code(s): R10.9 - UNSPECIFIED ABDOMINAL PAIN (4) CHF (congestive heart failure) Code(s): I50.9 - HEART FAILURE, UNSPECIFIED Qualifiers: Congestive heart failure type: unspecified congestive heart failure type Congestive heart failure chronicity: acute Qualified Code(s): I50.9 - Heart failure, unspecified (5) Diabetes Code(s): E11.9 - TYPE 2 DIABETES MELLITUS WITHOUT COMPLICATIONS (6) Hyperlipidemia Code(s): E78.5 - HYPERLIPIDEMIA, UNSPECIFIED (7) Hypertension Code(s): I10 - ESSENTIAL (PRIMARY) HYPERTENSION (8) CML (chronic myelocytic leukemia) Code(s): C92.10 - CHRONIC MYELOID LEUK, BCR/ABL-POSITIVE, NOT ACHIEVE REMIS Assessment/Plan A/P Acute on Chronic Diastolic Heart Failure Pleural Effusions Atelectasis COPD Fever HTN DM Hypothyroidism Morbid Obesity Anemia CML - continue IV lasix - monitor urine output, creatinine - inhaled bronchodilators - O2 to keep SpO2 >90% - DVT prophylaxis DR BELL
--- NOTE | 2017-04-24 14:56 | PN ---
Progress Note, Physician History of Present Illness: continues to reamin stable no issues - Current Medication List Current Medications: Active Medications Acetaminophen (Tylenol -) 650 mg PO Q4H PRN PRN Reason: TEMP >100.5 Last Admin: 04/21/17 18:48 Dose: 650 mg Acetaminophen (Tylenol -) 650 mg PO Q4H PRN PRN Reason: PAIN Last Admin: 04/24/17 12:15 Dose: 650 mg Arformoterol Tartrate (Brovana (Restricted To Pulmonology/Resp) -) 1 amp NEB BID [facility] Last Admin: 04/24/17 10:31 Dose: 1 amp Aspirin (Asa -) 81 mg PO DAILY [facility] Last Admin: 04/24/17 09:26 Dose: 81 mg Benzocaine (Americaine Ointment -) 1 applic [place] PRN PRN PRN Reason: PAIN Last Admin: 04/23/17 22:06 Dose: 1 applic Collagenase (Santyl -) 1 applic TP DAILY [facility] Last Admin: 04/24/17 10:17 Dose: 1 applic Docusate Sodium (Colace -) 300 mg PO HS [facility] Last Admin: 04/23/17 22:04 Dose: 300 mg Furosemide (Lasix Injection -) 40 mg IVPUSH DAILY [facility] Last Admin: 04/24/17 09:29 Dose: 40 mg Gabapentin (Neurontin -) 600 mg PO TID [facility] Last Admin: 04/24/17 09:25 Dose: 600 mg Heparin Sodium (Porcine) (Heparin -) 5,000 unit SQ BID [facility] Last Admin: 04/24/17 09:29 Dose: 5,000 unit Insulin Aspart (Novolog Vial Sliding Scale -) 1 vial SQ ACHS [facility] PRN Reason: Protocol Last Admin: 04/24/17 12:13 Dose: 4 units Insulin Detemir (Levemir Vial) 10 units SQ HS [facility] Last Admin: 04/23/17 22:05 Dose: 10 unit Levothyroxine Sodium (Synthroid -) 25 mcg PO AM [facility] Last Admin: 04/24/17 06:00 Dose: 25 mcg Lisinopril (Prinivil) 20 mg PO DAILY [facility] Last Admin: 04/24/17 09:26 Dose: 20 mg Metformin HCl (Glucophage -) 500 mg PO BIDI [facility] Last Admin: 04/24/17 05:59 Dose: 500 mg Pt's Own (Nilotinib (Hcl [Tasigna])) 2 cap PO BID@0600,1500 [facility] Last Admin: 04/24/17 05:59 Dose: 2 cap Nystatin (Nystop Powder -) 1 applic TP DAILY [facility] Last Admin: 04/24/17 10:17 Dose: 1 applic Ondansetron HCl (Zofran Injection) 4 mg IVPB Q6H PRN PRN Reason: NAUSEA Oxycodone HCl (Roxicodone -) 10 mg PO Q4H PRN PRN Reason: PAIN Last Admin: 04/24/17 12:15 Dose: 10 mg Prednisone (Deltasone -) 30 mg PO DAILY [facility] Stop: 04/25/17 10:01 Last Admin: 04/24/17 10:17 Dose: 30 mg Ranitidine HCl (Zantac -) 150 mg PO BID [facility] Last Admin: 04/24/17 09:27 Dose: 150 mg - Objective Vital Signs: Vital Signs Temperature 97.9 F 04/24/17 10:00 Pulse Rate 59 L 04/24/17 10:00 Respiratory Rate 19 04/24/17 10:00 Blood Pressure 136/55 04/24/17 10:00 O2 Sat by Pulse Oximetry (%) 100 04/24/17 09:00 Constitutional: Yes: No Distress, Calm Cardiovascular: Yes: Regular Rate and Rhythm Respiratory: Yes: Regular, On Nasal O2, Poor Air Entry Gastrointestinal: Yes: Normal Bowel Sounds, Soft Musculoskeletal: Yes: Other Extremities: Yes: Other Wound/Incision: Yes: Clean/Dry, Other Neurological: Yes: Alert, Oriented Psychiatric: Yes: Alert, Oriented Labs: CBC, BMP 04/24/17 07:24 04/24/17 07:24 INR, PTT INR 1.25 (0.82-1.09) H 04/19/17 22:41 Assessment/Plan Problem List - Problems (1) Acute respiratory failure Code(s): J96.00 - ACUTE RESPIRATORY FAILURE, UNSP W HYPOXIA OR HYPERCAPNIA Qualifiers: Respiratory failure complication: hypoxia Qualified Code(s): J96.01 - Acute respiratory failure with hypoxia (2) Pneumonia Code(s): J18.9 - PNEUMONIA, UNSPECIFIED ORGANISM (3) Sepsis Code(s): A41.9 - SEPSIS, UNSPECIFIED ORGANISM (4) Altered mental status Code(s): R41.82 - ALTERED MENTAL STATUS, UNSPECIFIED (5) Anemia Code(s): D64.9 - ANEMIA, UNSPECIFIED Qualifiers: Anemia type: unspecified type Qualified Code(s): D64.9 - Anemia, unspecified (6) CHF (congestive heart failure) Code(s): I50.9 - HEART FAILURE, UNSPECIFIED Qualifiers: Congestive heart failure type: unspecified congestive heart failure type Congestive heart failure chronicity: acute Qualified Code(s): I50.9 - Heart failure, unspecified (7) CML (chronic myelocytic leukemia) Code(s): C92.10 - CHRONIC MYELOID LEUK, BCR/ABL-POSITIVE, NOT ACHIEVE REMIS (8) Diabetes Code(s): E11.9 - TYPE 2 DIABETES MELLITUS WITHOUT COMPLICATIONS (9) Diabetic foot ulcer Code(s): E11.621 - TYPE 2 DIABETES MELLITUS WITH FOOT ULCER L97.509 - NON-PRESSURE CHRONIC ULCER OTH PRT UNSP FOOT W UNSP SEVERITY Qualifiers: Diabetes mellitus type: other specified (including STORM) Laterality: bilateral (10) Hyperlipidemia Code(s): E78.5 - HYPERLIPIDEMIA, UNSPECIFIED (11) Hypertension Code(s): I10 - ESSENTIAL (PRIMARY) HYPERTENSION (12) Hypothyroid Code(s): E03.9 - HYPOTHYROIDISM, UNSPECIFIED leukocytosis patient is mostly showing resp failure picture plan stable off of abx continue current mgmt
--- NOTE | 2017-04-24 15:08 | PN ---
Progress Note, Physician Chief Complaint: Ms Hernandez continues to improve. No cp or n/v. Still with some shortness of breath but improving. - Current Medication List Current Medications: Active Medications Acetaminophen (Tylenol -) 650 mg PO Q4H PRN PRN Reason: TEMP >100.5 Last Admin: 04/21/17 18:48 Dose: 650 mg Acetaminophen (Tylenol -) 650 mg PO Q4H PRN PRN Reason: PAIN Last Admin: 04/24/17 12:15 Dose: 650 mg Arformoterol Tartrate (Brovana (Restricted To Pulmonology/Resp) -) 1 amp NEB BID [facility] Last Admin: 04/24/17 10:31 Dose: 1 amp Aspirin (Asa -) 81 mg PO DAILY [facility] Last Admin: 04/24/17 09:26 Dose: 81 mg Benzocaine (Americaine Ointment -) 1 applic [place] PRN PRN PRN Reason: PAIN Last Admin: 04/23/17 22:06 Dose: 1 applic Collagenase (Santyl -) 1 applic TP DAILY [facility] Last Admin: 04/24/17 10:17 Dose: 1 applic Docusate Sodium (Colace -) 300 mg PO HS [facility] Last Admin: 04/23/17 22:04 Dose: 300 mg Furosemide (Lasix Injection -) 40 mg IVPUSH DAILY [facility] Last Admin: 04/24/17 09:29 Dose: 40 mg Gabapentin (Neurontin -) 600 mg PO TID [facility] Last Admin: 04/24/17 09:25 Dose: 600 mg Heparin Sodium (Porcine) (Heparin -) 5,000 unit SQ BID [facility] Last Admin: 04/24/17 09:29 Dose: 5,000 unit Insulin Aspart (Novolog Vial Sliding Scale -) 1 vial SQ ACHS [facility] PRN Reason: Protocol Last Admin: 04/24/17 12:13 Dose: 4 units Insulin Detemir (Levemir Vial) 10 units SQ HS [facility] Last Admin: 04/23/17 22:05 Dose: 10 unit Levothyroxine Sodium (Synthroid -) 25 mcg PO AM [facility] Last Admin: 04/24/17 06:00 Dose: 25 mcg Lisinopril (Prinivil) 20 mg PO DAILY [facility] Last Admin: 04/24/17 09:26 Dose: 20 mg Metformin HCl (Glucophage -) 500 mg PO BIDI [facility] Last Admin: 04/24/17 05:59 Dose: 500 mg Pt's Own (Nilotinib (Hcl [Tasigna])) 2 cap PO BID@0600,1500 [facility] Last Admin: 04/24/17 05:59 Dose: 2 cap Nystatin (Nystop Powder -) 1 applic TP DAILY [facility] Last Admin: 04/24/17 10:17 Dose: 1 applic Ondansetron HCl (Zofran Injection) 4 mg IVPB Q6H PRN PRN Reason: NAUSEA Oxycodone HCl (Roxicodone -) 10 mg PO Q4H PRN PRN Reason: PAIN Last Admin: 04/24/17 12:15 Dose: 10 mg Prednisone (Deltasone -) 30 mg PO DAILY [facility] Stop: 04/25/17 10:01 Last Admin: 04/24/17 10:17 Dose: 30 mg Ranitidine HCl (Zantac -) 150 mg PO BID [facility] Last Admin: 04/24/17 09:27 Dose: 150 mg - Objective Vital Signs: Vital Signs Temperature 36.6 C 04/24/17 10:00 Pulse Rate 59 L 04/24/17 10:00 Respiratory Rate 19 04/24/17 10:00 Blood Pressure 136/55 04/24/17 10:00 O2 Sat by Pulse Oximetry (%) 100 04/24/17 09:00 Constitutional: Yes: Well Nourished, No Distress, Calm Cardiovascular: Yes: Regular Rate and Rhythm. No: Gallop, Murmur, Rub Respiratory: Yes: Regular, CTA Bilaterally, On Nasal O2. No: Rales, Rhonchi, Wheezes Gastrointestinal: Yes: Normal Bowel Sounds, Soft. No: Distention, Tenderness Extremities: Yes: WNL Edema: Yes Edema: LLE: 2+, RLE: 2+ Labs: CBC, BMP 04/24/17 07:24 04/24/17 07:24 INR, PTT INR 1.25 (0.82-1.09) H 04/19/17 22:41 Problem List - Problems (1) Sepsis Code(s): A41.9 - SEPSIS, UNSPECIFIED ORGANISM (2) Acute respiratory failure Code(s): J96.00 - ACUTE RESPIRATORY FAILURE, UNSP W HYPOXIA OR HYPERCAPNIA Qualifiers: Respiratory failure complication: hypoxia Qualified Code(s): J96.01 - Acute respiratory failure with hypoxia (3) Pneumonia Code(s): J18.9 - PNEUMONIA, UNSPECIFIED ORGANISM (4) COPD (chronic obstructive pulmonary disease) Code(s): J44.9 - CHRONIC OBSTRUCTIVE PULMONARY DISEASE, UNSPECIFIED (5) Anemia Code(s): D64.9 - ANEMIA, UNSPECIFIED Qualifiers: Anemia type: unspecified type Qualified Code(s): D64.9 - Anemia, unspecified (6) CHF (congestive heart failure) Code(s): I50.9 - HEART FAILURE, UNSPECIFIED Qualifiers: Congestive heart failure type: unspecified congestive heart failure type Congestive heart failure chronicity: acute Qualified Code(s): I50.9 - Heart failure, unspecified (7) CML (chronic myelocytic leukemia) Code(s): C92.10 - CHRONIC MYELOID LEUK, BCR/ABL-POSITIVE, NOT ACHIEVE REMIS (8) Diabetes Code(s): E11.9 - TYPE 2 DIABETES MELLITUS WITHOUT COMPLICATIONS (9) Diabetic foot ulcer Code(s): E11.621 - TYPE 2 DIABETES MELLITUS WITH FOOT ULCER L97.509 - NON-PRESSURE CHRONIC ULCER OTH PRT UNSP FOOT W UNSP SEVERITY Qualifiers: Diabetes mellitus type: other specified (including STORM) Laterality: bilateral (10) Hypertension Code(s): I10 - ESSENTIAL (PRIMARY) HYPERTENSION (11) Hypothyroid Code(s): E03.9 - HYPOTHYROIDISM, UNSPECIFIED Assessment/Plan (1) Sepsis Assessment/Plan: -resolved Code(s): A41.9 - SEPSIS, UNSPECIFIED ORGANISM (2) Acute respiratory failure Assessment/Plan: -much improved -continue diuresis -continue steroid taper -appreciate cardiology and pulmonary assistance Code(s): J96.00 - ACUTE RESPIRATORY FAILURE, UNSP W HYPOXIA OR HYPERCAPNIA Qualifiers: Respiratory failure complication: hypoxia Qualified Code(s): J96.01 - Acute respiratory failure with hypoxia (3) Pneumonia Assessment/Plan: -s/p antibiotics Code(s): J18.9 - PNEUMONIA, UNSPECIFIED ORGANISM (4) COPD (chronic obstructive pulmonary disease) Assessment/Plan: -much improved -continue oxygen support -steroid taper -bronchodilators Code(s): J44.9 - CHRONIC OBSTRUCTIVE PULMONARY DISEASE, UNSPECIFIED (5) Anemia Assessment/Plan: -s/p transfusion -stable Code(s): D64.9 - ANEMIA, UNSPECIFIED Qualifiers: Anemia type: unspecified type Qualified Code(s): D64.9 - Anemia, unspecified (6) CHF (congestive heart failure) Assessment/Plan: -appreciate cardiology assistance and note reviewed -continue IV lasix -cardiology following Code(s): I50.9 - HEART FAILURE, UNSPECIFIED Qualifiers: Congestive heart failure type: unspecified congestive heart failure type Congestive heart failure chronicity: acute Qualified Code(s): I50.9 - Heart failure, unspecified (7) CML (chronic myelocytic leukemia) Assessment/Plan: -continue outpatient regimen Code(s): C92.10 - CHRONIC MYELOID LEUK, BCR/ABL-POSITIVE, NOT ACHIEVE REMIS (8) Diabetes Assessment/Plan: -continue home regimen and monitor -adjust as necessary Code(s): E11.9 - TYPE 2 DIABETES MELLITUS WITHOUT COMPLICATIONS (9) Diabetic foot ulcer Assessment/Plan: -wound care consulted -following Code(s): E11.621 - TYPE 2 DIABETES MELLITUS WITH FOOT ULCER L97.509 - NON-PRESSURE CHRONIC ULCER OTH PRT UNSP FOOT W UNSP SEVERITY Qualifiers: Diabetes mellitus type: other specified (including STORM) Laterality: bilateral (10) Hypertension Assessment/Plan: -controlled Code(s): I10 - ESSENTIAL (PRIMARY) HYPERTENSION (11) Hypothyroid Assessment/Plan: -continue synthroid Code(s): E03.9 - HYPOTHYROIDISM, UNSPECIFIED
[2017-04-24] MEDS: DOCUSATE SODIUM 100 MG CAPSULE (FP) PO SCH (21:51)
[2017-04-24] MEDS: INSULIN DETEMIR 100 UNITS/ML MDV SQ SCH (21:52)
[2017-04-25] MEDS ORDERED: INSULIN (NOVOLOG) ASPART 100 UNITS/ML 10ML VIAL ONE ×2 (00:27→17:06)
[2017-04-25] MEDS ORDERED: INSULIN DETEMIR 100 UNITS/ML MDV SQ ONE (00:28)
[2017-04-25] MEDS: oxyCODONE HCL 5 MG TABLET PO PRN ×2 (06:38→13:38)
[2017-04-25] MEDS: NILOTINIB HCL PO SCH ×3 (06:39→14:49)
[2017-04-25] MEDS: LEVOTHYROXINE NA 25 MCG TABLET (FP) PO SCH (06:39)
[2017-04-25] MEDS: GABAPENTIN 300 MG CAPSULE (FP) PO SCH ×3 (06:39→21:30)
[2017-04-25] MEDS: metFORMIN HCL 500 MG TABLET (FP) PO SCH ×2 (06:39→17:07)
[2017-04-25] MEDS: INSULIN SLIDING SCALE (NOVOLOG) 1 VIAL SQ SCH ×4 (06:42→21:31)
[2017-04-25 07:51] LABS: BASOPHIL 0.1 % (0-2.0); EOSINOPHIL 1.6 % (0-4.5); MCHC 32.2 g/dl (32.0-36.0); MEAN CELL VOLUME 89.9 fl (80-96); MEAN PLT VOLUME 8.6 fl (7.5-11.1); NEUTROPHILS 71.2 % (42.8-82.8); PLATELET COUNT 164 K/MM3 (134-434); RDW 17.2 % (11.6-15.6); WHITE BLOOD COUNT 5.6 K/mm3 (4.0-10.0)
[2017-04-25 08:09] LABS: ANION GAP 6 (8-16); CALCIUM 8.3 mg/dL (8.5-10.1); CO2 34 mmol/L (21-32); CREATININE 0.7 mg/dL (0.55-1.02); GLUCOSE,RANDOM 121 mg/dL (74-106); MAGNESIUM 2.1 mg/dL (1.8-2.4); PHOSPHOROUS 2.6 mg/dL (2.5-4.9)
[2017-04-25] MEDS: ASPIRIN 81 MG CHEWABLE TABLETS PO SCH (09:40)
[2017-04-25] MEDS: predniSONE 10 MG TABLET (UD) PO SCH (09:40)
[2017-04-25] MEDS: LISINOPRIL 20 MG TABLET (FP) PO SCH (09:40)
[2017-04-25] MEDS: NYSTATIN POWDER 100,000 UNITS/GM - 15 GM TOPICAL POWDER TP SCH (09:41)
[2017-04-25] MEDS: RANITIDINE HCL 150 MG TABLET (FP) PO SCH ×2 (09:41→21:30)
[2017-04-25] MEDS: HEPARIN NA (PORCINE) 5,000 UNITS/ML 1ML VIAL SQ SCH ×2 (09:41→21:31)
[2017-04-25] MEDS: ARFORMOTEROL TARTRATE 15 MCG/2 ML VIAL NEB SCH ×2 (10:00→21:45)
[2017-04-25] MEDS: FUROSEMIDE 40 MG/4 ML INJECTABLE VIAL IVPUSH SCH ×2 (10:09→14:00)
--- NOTE | 2017-04-25 10:33 | PN ---
Progress Note (short form) - Note Progress Note: Chief Complaint: chf History of Present Illness: nausea resolved still feels weak no sob/PND no cp, palpit leg swelling improving from yesterday. + LE pain. good uop on diuretic regimen. (unable to stand for weights). lost IV axis today. Current Medications Acetaminophen (Tylenol -) 650 mg PO Q4H PRN PRN Reason: TEMP >100.5 Last Admin: 04/21/17 18:48 Dose: 650 mg Acetaminophen (Tylenol -) 650 mg PO Q4H PRN PRN Reason: PAIN Last Admin: 04/24/17 12:15 Dose: 650 mg Arformoterol Tartrate (Brovana (Restricted To Pulmonology/Resp) -) 1 amp NEB BID [facility] Last Admin: 04/24/17 22:49 Dose: 1 amp Aspirin (Asa -) 81 mg PO DAILY [facility] Last Admin: 04/25/17 09:40 Dose: 81 mg Benzocaine (Americaine Ointment -) 1 applic [place] PRN PRN PRN Reason: PAIN Last Admin: 04/23/17 22:06 Dose: 1 applic Collagenase (Santyl -) 1 applic TP DAILY [facility] Last Admin: 04/24/17 10:17 Dose: 1 applic Docusate Sodium (Colace -) 300 mg PO HS [facility] Last Admin: 04/24/17 21:51 Dose: 300 mg Furosemide (Lasix Injection -) 40 mg IVPUSH DAILY [facility] Last Admin: 04/25/17 10:09 Dose: Not Given Gabapentin (Neurontin -) 600 mg PO TID [facility] Last Admin: 04/25/17 06:39 Dose: 600 mg Heparin Sodium (Porcine) (Heparin -) 5,000 unit SQ BID [facility] Last Admin: 04/25/17 09:41 Dose: 5,000 unit Insulin Aspart (Novolog Vial Sliding Scale -) 1 vial SQ ACHS [facility] PRN Reason: Protocol Last Admin: 04/25/17 06:42 Dose: Not Given Insulin Detemir (Levemir Vial) 10 units SQ HS [facility] Last Admin: 04/24/17 21:52 Dose: 10 unit Levothyroxine Sodium (Synthroid -) 25 mcg PO AM [facility] Last Admin: 04/25/17 06:39 Dose: 25 mcg Lisinopril (Prinivil) 20 mg PO DAILY [facility] Last Admin: 04/25/17 09:40 Dose: 20 mg Metformin HCl (Glucophage -) 500 mg PO BIDI [facility] Last Admin: 04/25/17 06:39 Dose: 500 mg Pt's Own (Nilotinib (Hcl [Tasigna])) 2 cap PO BID@0600,1500 [facility] Last Admin: 04/25/17 06:39 Dose: 2 cap Nystatin (Nystop Powder -) 1 applic TP DAILY [facility] Last Admin: 04/25/17 09:41 Dose: 1 applic Ondansetron HCl (Zofran Injection) 4 mg IVPB Q6H PRN PRN Reason: NAUSEA Oxycodone HCl (Roxicodone -) 10 mg PO Q4H PRN PRN Reason: PAIN Last Admin: 04/25/17 06:38 Dose: 10 mg Ranitidine HCl (Zantac -) 150 mg PO BID [facility] Last Admin: 04/25/17 09:41 Dose: 150 mg Vital Signs - 24 hr 04/24/17 04/24/17 04/24/17 15:35 18:00 22:00 Temperature 98 F 98.3 F 97.4 F L Pulse Rate 60 85 52 L Respiratory 20 18 18 Rate Blood Pressure 177/65 105/59 154/68 O2 Sat by Pulse 92 L Oximetry (%) 04/25/17 06:00 Temperature 97.8 F Pulse Rate 52 L Respiratory 20 Rate Blood Pressure 158/68 O2 Sat by Pulse Oximetry (%) Intake & Output 04/23/17 04/24/17 04/25/17 04/26/17 07:59 07:59 07:59 07:59 Intake Total 1380 120 400 Output Total 5400 4800 4100 Balance -4020 -4680 -3700 Weight 245 lb Constitutional: Yes: Obese Cardiovascular: Yes: Regular Rate and Rhythm, JVD, S1, S2. No: Gallop, Murmur Respiratory: Yes: Regular, CTA Bilaterally. No: Accessory Muscle Use, Rales, Wheezes Extremities: No: Cold Edema: Yes (trace - 1+ nonpitting, stable) chronic venous stasis changes Neurological: Yes: Alert, Oriented Psychiatric: No: Agitated Labs: CBC, BMP 04/25/17 06:00 04/25/17 06:00 Laboratory Tests 04/25/17 06:00 Magnesium 2.1 Assessment/Plan echo 06/2016: nl lv/rv, mild rommel, mac, mild mr no tele a/p: 66 yo f with hx htn, dm, hld, hypothyroid, obesity, possible copd, CML/ anemia, sent from md for general weakness/fever. acute on chronic diastolic chf: -admitted with sob, bilateral effusions on CT scan, no a.e. copd or PNA in opinion of pulmonary consultants -BNP 1000 here (baseline 400 - 5K) -initially received IVF here, stopped 04/21. -dr crum's note 04/21 advises lasix 40mg IVP x1 but MAR shows no IV dose given (only lasix 20mg po qd) -04/22: marked JVD--start lasix 80 iv x 1 today, then 40 iv daily starting tomorrow -04/23: neg neg 2500cc yesterday. labs stable. cont lasix 40 iv daily -04/24: UOP yest 4900 cc (confirms she is only drinking 1-3 small cups water per day); labs stable (bicarb trending up). cxr today with moderate effusions and vasc engorgement pattern--cont lasix 40 iv qd -04/25: continues to have good diuresis on IV lasix. however has not gotten meds today because lost IV access. If can't get IV access will temporarily switch to torsemide. standing weight if possible with PT. cont to monitor I/O and bmp trend, venous ins/lymphedema: -chronic swelling, stable anemia: -baseline values in past here run hgb 7s-9s -came in with hgb 7s, down to 6s, s/p PRBCs 04/21 -w/u and mgmt per pmd htn: -bp running sligtly high today. if still elevated tomorrow, consider uptitration of diuretics. HR remains low in the 50's overnight off av kia blockade. MELE?. -cont lisinopril hld: - Given diabetes, would benefit from statin therapy, can initiate as outpatient once acute issues resolve.
[2017-04-25] MEDS: COLLAGENASE CLOSTRIDIUM HIST. 30 GRAMS TUBE TP SCH (12:05)
--- NOTE | 2017-04-25 12:52 | PN ---
Progress Note, Physician Chief Complaint: Ms Hernandez complains of pain in her back from not moving. Denies cp, sob, n/v. - Current Medication List Current Medications: Active Medications Acetaminophen (Tylenol -) 650 mg PO Q4H PRN PRN Reason: TEMP >100.5 Last Admin: 04/21/17 18:48 Dose: 650 mg Acetaminophen (Tylenol -) 650 mg PO Q4H PRN PRN Reason: PAIN Last Admin: 04/24/17 12:15 Dose: 650 mg Arformoterol Tartrate (Brovana (Restricted To Pulmonology/Resp) -) 1 amp NEB BID [facility] Last Admin: 04/25/17 10:00 Dose: 1 amp Aspirin (Asa -) 81 mg PO DAILY [facility] Last Admin: 04/25/17 09:40 Dose: 81 mg Benzocaine (Americaine Ointment -) 1 applic [place] PRN PRN PRN Reason: PAIN Last Admin: 04/23/17 22:06 Dose: 1 applic Collagenase (Santyl -) 1 applic TP DAILY [facility] Last Admin: 04/25/17 12:05 Dose: 1 applic Docusate Sodium (Colace -) 300 mg PO HS [facility] Last Admin: 04/24/17 21:51 Dose: 300 mg Furosemide (Lasix Injection -) 40 mg IVPUSH DAILY [facility] Last Admin: 04/25/17 10:09 Dose: Not Given Gabapentin (Neurontin -) 600 mg PO TID [facility] Last Admin: 04/25/17 06:39 Dose: 600 mg Heparin Sodium (Porcine) (Heparin -) 5,000 unit SQ BID [facility] Last Admin: 04/25/17 09:41 Dose: 5,000 unit Insulin Aspart (Novolog Vial Sliding Scale -) 1 vial SQ ACHS [facility] PRN Reason: Protocol Last Admin: 04/25/17 12:04 Dose: Not Given Insulin Detemir (Levemir Vial) 10 units SQ HS [facility] Last Admin: 04/24/17 21:52 Dose: 10 unit Levothyroxine Sodium (Synthroid -) 25 mcg PO AM [facility] Last Admin: 04/25/17 06:39 Dose: 25 mcg Lisinopril (Prinivil) 20 mg PO DAILY [facility] Last Admin: 04/25/17 09:40 Dose: 20 mg Metformin HCl (Glucophage -) 500 mg PO BIDI [facility] Last Admin: 04/25/17 06:39 Dose: 500 mg Pt's Own (Nilotinib (Hcl [Tasigna])) 2 cap PO BID@0600,1500 [facility] Last Admin: 04/25/17 06:39 Dose: 2 cap Nystatin (Nystop Powder -) 1 applic TP DAILY [facility] Last Admin: 04/25/17 09:41 Dose: 1 applic Ondansetron HCl (Zofran Injection) 4 mg IVPB Q6H PRN PRN Reason: NAUSEA Oxycodone HCl (Roxicodone -) 10 mg PO Q4H PRN PRN Reason: PAIN Last Admin: 04/25/17 06:38 Dose: 10 mg Ranitidine HCl (Zantac -) 150 mg PO BID [facility] Last Admin: 04/25/17 09:41 Dose: 150 mg - Objective Vital Signs: Vital Signs Temperature 36.6 C 04/25/17 06:00 Pulse Rate 64 04/25/17 10:00 Respiratory Rate 20 04/25/17 10:00 Blood Pressure 144/70 04/25/17 10:00 O2 Sat by Pulse Oximetry (%) 99 04/25/17 10:00 Constitutional: Yes: No Distress, Calm, Obese Cardiovascular: Yes: Regular Rate and Rhythm. No: Gallop, Murmur, Rub Respiratory: Yes: Regular, CTA Bilaterally. No: Rales, Rhonchi, Wheezes Gastrointestinal: Yes: Normal Bowel Sounds, Soft. No: Distention, Tenderness Extremities: Yes: WNL Edema: Yes Edema: LLE: 2+, RLE: 2+ Labs: CBC, BMP 04/25/17 06:00 04/25/17 06:00 INR, PTT INR 1.25 (0.82-1.09) H 04/19/17 22:41 Problem List - Problems (1) Sepsis Code(s): A41.9 - SEPSIS, UNSPECIFIED ORGANISM (2) Acute respiratory failure Code(s): J96.00 - ACUTE RESPIRATORY FAILURE, UNSP W HYPOXIA OR HYPERCAPNIA Qualifiers: Respiratory failure complication: hypoxia Qualified Code(s): J96.01 - Acute respiratory failure with hypoxia (3) Pneumonia Code(s): J18.9 - PNEUMONIA, UNSPECIFIED ORGANISM (4) COPD (chronic obstructive pulmonary disease) Code(s): J44.9 - CHRONIC OBSTRUCTIVE PULMONARY DISEASE, UNSPECIFIED (5) Anemia Code(s): D64.9 - ANEMIA, UNSPECIFIED Qualifiers: Anemia type: unspecified type Qualified Code(s): D64.9 - Anemia, unspecified (6) CHF (congestive heart failure) Code(s): I50.9 - HEART FAILURE, UNSPECIFIED Qualifiers: Congestive heart failure type: diastolic Congestive heart failure chronicity: acute Qualified Code(s): I50.31 - Acute diastolic (congestive ) heart failure (7) CML (chronic myelocytic leukemia) Code(s): C92.10 - CHRONIC MYELOID LEUK, BCR/ABL-POSITIVE, NOT ACHIEVE REMIS (8) Diabetes Code(s): E11.9 - TYPE 2 DIABETES MELLITUS WITHOUT COMPLICATIONS (9) Diabetic foot ulcer Code(s): E11.621 - TYPE 2 DIABETES MELLITUS WITH FOOT ULCER L97.509 - NON-PRESSURE CHRONIC ULCER OTH PRT UNSP FOOT W UNSP SEVERITY Qualifiers: Diabetes mellitus type: other specified (including STORM) Laterality: bilateral (10) Hypertension Code(s): I10 - ESSENTIAL (PRIMARY) HYPERTENSION (11) Hypothyroid Code(s): E03.9 - HYPOTHYROIDISM, UNSPECIFIED Assessment/Plan (1) Sepsis Assessment/Plan: -resolved Code(s): A41.9 - SEPSIS, UNSPECIFIED ORGANISM (2) Acute respiratory failure Assessment/Plan: -resolved -pulmonary following -continue steroid taper and bronchodilators Code(s): J96.00 - ACUTE RESPIRATORY FAILURE, UNSP W HYPOXIA OR HYPERCAPNIA Qualifiers: Respiratory failure complication: hypoxia Qualified Code(s): J96.01 - Acute respiratory failure with hypoxia (3) Pneumonia Assessment/Plan: -s/p antibiotics Code(s): J18.9 - PNEUMONIA, UNSPECIFIED ORGANISM (4) COPD (chronic obstructive pulmonary disease) Assessment/Plan: -pulmonary following -as above Code(s): J44.9 - CHRONIC OBSTRUCTIVE PULMONARY DISEASE, UNSPECIFIED (5) Anemia Assessment/Plan: -s/p transfusion -stable Code(s): D64.9 - ANEMIA, UNSPECIFIED Qualifiers: Anemia type: unspecified type Qualified Code(s): D64.9 - Anemia, unspecified (6) CHF (congestive heart failure) Assessment/Plan: -case d/w cardiology -change to oral torsemide 40mg daily Code(s): I50.9 - HEART FAILURE, UNSPECIFIED Qualifiers: Congestive heart failure type: diastolic Congestive heart failure chronicity: acute Qualified Code(s): I50.9 - Heart failure, diastolic (7) CML (chronic myelocytic leukemia) Assessment/Plan: -continue outpatient regimen Code(s): C92.10 - CHRONIC MYELOID LEUK, BCR/ABL-POSITIVE, NOT ACHIEVE REMIS (8) Diabetes Assessment/Plan: -continue home regimen Code(s): E11.9 - TYPE 2 DIABETES MELLITUS WITHOUT COMPLICATIONS (9) Diabetic foot ulcer Assessment/Plan: -wound care consulted -following Code(s): E11.621 - TYPE 2 DIABETES MELLITUS WITH FOOT ULCER L97.509 - NON-PRESSURE CHRONIC ULCER OTH PRT UNSP FOOT W UNSP SEVERITY Qualifiers: Diabetes mellitus type: other specified (including STORM) Laterality: bilateral (10) Hypertension Assessment/Plan: -controlled Code(s): I10 - ESSENTIAL (PRIMARY) HYPERTENSION (11) Hypothyroid Assessment/Plan: -continue synthroid Code(s): E03.9 - HYPOTHYROIDISM, UNSPECIFIED Dispo -possible discharge tomorrow
--- NOTE | 2017-04-25 13:03 | PN ---
Progress Note, Physician History of Present Illness: pulmonary alert,feeling better,-resp distress - Current Medication List Current Medications: Active Medications Acetaminophen (Tylenol -) 650 mg PO Q4H PRN PRN Reason: TEMP >100.5 Last Admin: 04/21/17 18:48 Dose: 650 mg Acetaminophen (Tylenol -) 650 mg PO Q4H PRN PRN Reason: PAIN Last Admin: 04/24/17 12:15 Dose: 650 mg Arformoterol Tartrate (Brovana (Restricted To Pulmonology/Resp) -) 1 amp NEB BID [facility] Last Admin: 04/25/17 10:00 Dose: 1 amp Aspirin (Asa -) 81 mg PO DAILY [facility] Last Admin: 04/25/17 09:40 Dose: 81 mg Benzocaine (Americaine Ointment -) 1 applic [place] PRN PRN PRN Reason: PAIN Last Admin: 04/23/17 22:06 Dose: 1 applic Collagenase (Santyl -) 1 applic TP DAILY [facility] Last Admin: 04/25/17 12:05 Dose: 1 applic Docusate Sodium (Colace -) 300 mg PO HS [facility] Last Admin: 04/24/17 21:51 Dose: 300 mg Furosemide (Lasix Injection -) 40 mg IVPUSH DAILY [facility] Last Admin: 04/25/17 10:09 Dose: Not Given Gabapentin (Neurontin -) 600 mg PO TID [facility] Last Admin: 04/25/17 06:39 Dose: 600 mg Heparin Sodium (Porcine) (Heparin -) 5,000 unit SQ BID [facility] Last Admin: 04/25/17 09:41 Dose: 5,000 unit Insulin Aspart (Novolog Vial Sliding Scale -) 1 vial SQ ACHS [facility] PRN Reason: Protocol Last Admin: 04/25/17 12:04 Dose: Not Given Insulin Detemir (Levemir Vial) 10 units SQ HS [facility] Last Admin: 04/24/17 21:52 Dose: 10 unit Levothyroxine Sodium (Synthroid -) 25 mcg PO AM [facility] Last Admin: 04/25/17 06:39 Dose: 25 mcg Lisinopril (Prinivil) 20 mg PO DAILY [facility] Last Admin: 04/25/17 09:40 Dose: 20 mg Metformin HCl (Glucophage -) 500 mg PO BIDI [facility] Last Admin: 04/25/17 06:39 Dose: 500 mg Pt's Own (Nilotinib (Hcl [Tasigna])) 2 cap PO BID@0600,1500 [facility] Last Admin: 04/25/17 06:39 Dose: 2 cap Nystatin (Nystop Powder -) 1 applic TP DAILY [facility] Last Admin: 04/25/17 09:41 Dose: 1 applic Ondansetron HCl (Zofran Injection) 4 mg IVPB Q6H PRN PRN Reason: NAUSEA Oxycodone HCl (Roxicodone -) 10 mg PO Q4H PRN PRN Reason: PAIN Last Admin: 04/25/17 06:38 Dose: 10 mg Ranitidine HCl (Zantac -) 150 mg PO BID [facility] Last Admin: 04/25/17 09:41 Dose: 150 mg - Objective Vital Signs: Vital Signs Temperature 97.8 F 04/25/17 06:00 Pulse Rate 64 04/25/17 10:00 Respiratory Rate 20 04/25/17 10:00 Blood Pressure 144/70 04/25/17 10:00 O2 Sat by Pulse Oximetry (%) 99 04/25/17 10:00 Constitutional: Yes: Well Nourished, Calm Eyes: Yes: WNL HENT: Yes: WNL Neck: Yes: WNL Cardiovascular: Yes: Regular Rate and Rhythm, S1, S2 Respiratory: Yes: Rales (bibasilar rales) Gastrointestinal: Yes: Normal Bowel Sounds, Soft Extremities: Yes: WNL Edema: Yes Labs: CBC, BMP 04/25/17 06:00 04/25/17 06:00 INR, PTT INR 1.25 (0.82-1.09) H 04/19/17 22:41 - ....Imaging Chest X-ray: Report Reviewed, Image Reviewed Problem List - Problems (1) Acute respiratory failure Code(s): J96.00 - ACUTE RESPIRATORY FAILURE, UNSP W HYPOXIA OR HYPERCAPNIA Qualifiers: Respiratory failure complication: hypoxia Qualified Code(s): J96.01 - Acute respiratory failure with hypoxia (2) COPD (chronic obstructive pulmonary disease) Code(s): J44.9 - CHRONIC OBSTRUCTIVE PULMONARY DISEASE, UNSPECIFIED (3) Abdominal pain Code(s): R10.9 - UNSPECIFIED ABDOMINAL PAIN (4) CHF (congestive heart failure) Code(s): I50.9 - HEART FAILURE, UNSPECIFIED Qualifiers: Congestive heart failure type: unspecified congestive heart failure type Congestive heart failure chronicity: acute Qualified Code(s): I50.9 - Heart failure, unspecified (5) Diabetes Code(s): E11.9 - TYPE 2 DIABETES MELLITUS WITHOUT COMPLICATIONS (6) Hyperlipidemia Code(s): E78.5 - HYPERLIPIDEMIA, UNSPECIFIED (7) Hypertension Code(s): I10 - ESSENTIAL (PRIMARY) HYPERTENSION (8) CML (chronic myelocytic leukemia) Code(s): C92.10 - CHRONIC MYELOID LEUK, BCR/ABL-POSITIVE, NOT ACHIEVE REMIS Assessment/Plan A/P Acute on Chronic Diastolic Heart Failure Pleural Effusions Atelectasis COPD Fever HTN DM Hypothyroidism Morbid Obesity Anemia CML - continue IV lasix - monitor urine output, creatinine - inhaled bronchodilators - O2 to keep SpO2 >90% - DVT prophylaxis DR BELL
[2017-04-25] MEDS: ACETAMINOPHEN 325 MG TABLET (FP) PO PRN (13:37)
[2017-04-25] MEDS: TORSEMIDE 20 MG TABLET (FP) PO SCH (15:51)
--- NOTE | 2017-04-25 15:54 | PN ---
Progress Note, Physician History of Present Illness: doing well no issues - Current Medication List Current Medications: Active Medications Acetaminophen (Tylenol -) 650 mg PO Q4H PRN PRN Reason: TEMP >100.5 Last Admin: 04/25/17 13:37 Dose: 650 mg Acetaminophen (Tylenol -) 650 mg PO Q4H PRN PRN Reason: PAIN Last Admin: 04/24/17 12:15 Dose: 650 mg Arformoterol Tartrate (Brovana (Restricted To Pulmonology/Resp) -) 1 amp NEB BID [facility] Last Admin: 04/25/17 10:00 Dose: 1 amp Aspirin (Asa -) 81 mg PO DAILY [facility] Last Admin: 04/25/17 09:40 Dose: 81 mg Benzocaine (Americaine Ointment -) 1 applic DE PRN PRN PRN Reason: PAIN Last Admin: 04/23/17 22:06 Dose: 1 applic Collagenase (Santyl -) 1 applic TP DAILY [facility] Last Admin: 04/25/17 12:05 Dose: 1 applic Docusate Sodium (Colace -) 300 mg PO HS [facility] Last Admin: 04/24/17 21:51 Dose: 300 mg Gabapentin (Neurontin -) 600 mg PO TID [facility] Last Admin: 04/25/17 13:36 Dose: 600 mg Heparin Sodium (Porcine) (Heparin -) 5,000 unit SQ BID [facility] Last Admin: 04/25/17 09:41 Dose: 5,000 unit Insulin Aspart (Novolog Vial Sliding Scale -) 1 vial SQ ACHS [facility] PRN Reason: Protocol Last Admin: 04/25/17 12:04 Dose: Not Given Insulin Detemir (Levemir Vial) 10 units SQ HS [facility] Last Admin: 04/24/17 21:52 Dose: 10 unit Levothyroxine Sodium (Synthroid -) 25 mcg PO AM [facility] Last Admin: 04/25/17 06:39 Dose: 25 mcg Lisinopril (Prinivil) 20 mg PO DAILY [facility] Last Admin: 04/25/17 09:40 Dose: 20 mg Metformin HCl (Glucophage -) 500 mg PO BIDI [facility] Last Admin: 04/25/17 06:39 Dose: 500 mg Pt's Own (Nilotinib (Hcl [Tasigna])) 2 cap PO BID@0600,1500 [facility] Last Admin: 04/25/17 14:49 Dose: Not Given Nystatin (Nystop Powder -) 1 applic TP DAILY [facility] Last Admin: 04/25/17 09:41 Dose: 1 applic Ondansetron HCl (Zofran Injection) 4 mg IVPB Q6H PRN PRN Reason: NAUSEA Oxycodone HCl (Roxicodone -) 10 mg PO Q4H PRN PRN Reason: PAIN Last Admin: 04/25/17 13:38 Dose: 10 mg Ranitidine HCl (Zantac -) 150 mg PO BID [facility] Last Admin: 04/25/17 09:41 Dose: 150 mg Torsemide (Demadex -) 40 mg PO DAILY [facility] Last Admin: 04/25/17 15:51 Dose: Not Given - Objective Vital Signs: Vital Signs Temperature 97.8 F 04/25/17 06:00 Pulse Rate 64 04/25/17 10:00 Respiratory Rate 20 04/25/17 10:00 Blood Pressure 144/70 04/25/17 10:00 O2 Sat by Pulse Oximetry (%) 99 04/25/17 10:00 Constitutional: Yes: No Distress, Calm Cardiovascular: Yes: Regular Rate and Rhythm Respiratory: Yes: Regular, CTA Bilaterally, On Nasal O2 Gastrointestinal: Yes: Normal Bowel Sounds, Soft Musculoskeletal: Yes: WNL Extremities: Yes: Other Neurological: Yes: Alert, Oriented Psychiatric: Yes: Alert, Oriented Labs: CBC, BMP 04/25/17 06:00 04/25/17 06:00 INR, PTT INR 1.25 (0.82-1.09) H 04/19/17 22:41 Assessment/Plan Problem List - Problems (1) Acute respiratory failure Code(s): J96.00 - ACUTE RESPIRATORY FAILURE, UNSP W HYPOXIA OR HYPERCAPNIA Qualifiers: Respiratory failure complication: hypoxia Qualified Code(s): J96.01 - Acute respiratory failure with hypoxia (2) Pneumonia Code(s): J18.9 - PNEUMONIA, UNSPECIFIED ORGANISM (3) Sepsis Code(s): A41.9 - SEPSIS, UNSPECIFIED ORGANISM (4) Altered mental status Code(s): R41.82 - ALTERED MENTAL STATUS, UNSPECIFIED (5) Anemia Code(s): D64.9 - ANEMIA, UNSPECIFIED Qualifiers: Anemia type: unspecified type Qualified Code(s): D64.9 - Anemia, unspecified (6) CHF (congestive heart failure) Code(s): I50.9 - HEART FAILURE, UNSPECIFIED Qualifiers: Congestive heart failure type: unspecified congestive heart failure type Congestive heart failure chronicity: acute Qualified Code(s): I50.9 - Heart failure, unspecified (7) CML (chronic myelocytic leukemia) Code(s): C92.10 - CHRONIC MYELOID LEUK, BCR/ABL-POSITIVE, NOT ACHIEVE REMIS (8) Diabetes Code(s): E11.9 - TYPE 2 DIABETES MELLITUS WITHOUT COMPLICATIONS (9) Diabetic foot ulcer Code(s): E11.621 - TYPE 2 DIABETES MELLITUS WITH FOOT ULCER L97.509 - NON-PRESSURE CHRONIC ULCER OTH PRT UNSP FOOT W UNSP SEVERITY Qualifiers: Diabetes mellitus type: other specified (including STORM) Laterality: bilateral (10) Hyperlipidemia Code(s): E78.5 - HYPERLIPIDEMIA, UNSPECIFIED (11) Hypertension Code(s): I10 - ESSENTIAL (PRIMARY) HYPERTENSION (12) Hypothyroid Code(s): E03.9 - HYPOTHYROIDISM, UNSPECIFIED leukocytosis patient is mostly showing resp failure picture plan stable off of abx continue current mgmt resp support
[2017-04-25] MEDS: INSULIN DETEMIR 100 UNITS/ML MDV SQ SCH (21:31)
[2017-04-25] MEDS: DOCUSATE SODIUM 100 MG CAPSULE (FP) PO SCH (21:31)
[2017-04-26 07:34] LABS: BASOPHIL 0.3 % (0-2.0); EOSINOPHIL 1.2 % (0-4.5); MCH 28.6 pg (25.7-33.7); MEAN CELL VOLUME 89.3 fl (80-96); MEAN PLT VOLUME 8.7 fl (7.5-11.1); PLATELET COUNT 160 K/MM3 (134-434); RDW 16.8 % (11.6-15.6); WHITE BLOOD COUNT 6.5 K/mm3 (4.0-10.0)
[2017-04-26 07:44] LABS: ANION GAP 7 (8-16); CALCIUM 7.9 mg/dL (8.5-10.1); CO2 32 mmol/L (21-32); GLUCOSE,RANDOM 167 mg/dL (74-106); MAGNESIUM 1.9 mg/dL (1.8-2.4)
[2017-04-26 07:46] LABS: CREATININE 0.6 mg/dL (0.55-1.02); PHOSPHOROUS 2.9 mg/dL (2.5-4.9)
[2017-04-26] MEDS ORDERED: INSULIN DETEMIR 100 UNITS/ML MDV SQ ONE (08:20)
[2017-04-26] MEDS: ASPIRIN 81 MG CHEWABLE TABLETS PO SCH (08:59)
[2017-04-26] MEDS: LISINOPRIL 20 MG TABLET (FP) PO SCH (08:59)
[2017-04-26] MEDS: HEPARIN NA (PORCINE) 5,000 UNITS/ML 1ML VIAL SQ SCH (08:59)
[2017-04-26] MEDS: RANITIDINE HCL 150 MG TABLET (FP) PO SCH (08:59)
[2017-04-26] MEDS: TORSEMIDE 20 MG TABLET (FP) PO SCH (08:59)
[2017-04-26] MEDS: oxyCODONE HCL 5 MG TABLET PO PRN (09:00)
[2017-04-26] MEDS: ARFORMOTEROL TARTRATE 15 MCG/2 ML VIAL NEB SCH (10:15)
--- NOTE | 2017-04-26 10:27 | PN ---
Progress Note (short form) - Note Progress Note: s: feeling well, no cp sob palps dizzy Current Medications Generic Name Dose Route Start Last Admin Trade Name Freq PRN Reason Stop Dose Admin Acetaminophen 650 mg 04/20/17 15:53 04/25/17 13:37 Tylenol - PO 650 mg Q4H PRN Administration TEMP >100.5 Acetaminophen 650 mg 04/21/17 11:30 04/24/17 12:15 Tylenol - PO 650 mg Q4H PRN Administration PAIN Arformoterol Tartrate 1 amp 04/20/17 13:45 04/25/17 21:45 Brovana (Restricted To Pulmonology/Resp) - NEB 1 amp BID [facility] Administration Aspirin 81 mg 04/20/17 10:00 04/26/17 08:59 Asa - PO 81 mg DAILY [facility] Administration Benzocaine 1 applic 04/23/17 12:48 04/23/17 22:06 Americaine Ointment - [place] 1 applic PRN PRN Administration PAIN Collagenase 1 applic 04/20/17 10:00 04/25/17 12:05 Santyl - TP 1 applic DAILY [facility] Administration Docusate Sodium 300 mg 04/20/17 22:00 04/25/17 21:31 Colace - PO 300 mg HS [facility] Administration Gabapentin 600 mg 04/20/17 06:00 04/25/17 21:30 Neurontin - PO 600 mg TID [facility] Administration Heparin Sodium (Porcine) 5,000 unit 04/20/17 10:00 04/26/17 08:59 Heparin - SQ 5,000 unit BID [facility] Administration Insulin Aspart 1 vial 04/20/17 07:00 04/25/17 21:31 Novolog Vial Sliding Scale - SQ 8 units ACHS [facility] Administration Protocol Insulin Detemir 10 units 04/20/17 22:00 04/25/17 21:31 Levemir Vial SQ 10 unit HS [facility] Administration Levothyroxine Sodium 25 mcg 04/20/17 07:00 04/25/17 06:39 Synthroid - PO 25 mcg AM [facility] Administration Lisinopril 20 mg 04/20/17 10:00 04/26/17 08:59 Prinivil PO 20 mg DAILY [facility] Administration Metformin HCl 500 mg 04/20/17 07:00 04/25/17 17:07 Glucophage - PO 500 mg BIDI [facility] Administration Pt's Own (Nilotinib 2 cap 04/22/17 06:00 04/25/17 14:49 Hcl [Tasigna]) PO Not Given BID@0600,1500 [facility] Nystatin 1 applic 04/20/17 11:00 04/25/17 09:41 Nystop Powder - TP 1 applic DAILY [facility] Administration Ondansetron HCl 4 mg 04/23/17 14:38 Zofran Injection IVPB Q6H PRN NAUSEA Oxycodone HCl 10 mg 04/20/17 01:02 04/26/17 09:00 Roxicodone - PO 10 mg Q4H PRN Administration PAIN Ranitidine HCl 150 mg 04/20/17 10:00 04/26/17 08:59 Zantac - PO 150 mg BID [facility] Administration Torsemide 40 mg 04/25/17 15:15 04/26/17 08:59 Demadex - PO 40 mg DAILY [facility] Administration Vital Signs Period Temp Pulse Resp BP Sys/Machado Pulse Ox Last 24 Hr 97.8 F-98.7 F 56-61 -18 139-160/53-68 99 Constitutional: Yes: Obese Cardiovascular: Yes: Regular Rate and Rhythm, JVD, S1, S2. No: Gallop, Murmur Respiratory: Yes: Regular, CTA Bilaterally. No: Accessory Muscle Use, Rales, Wheezes Extremities: No: Cold Edema: Yes (trace - 1+ nonpitting, stable) chronic venous stasis changes Neurological: Yes: Alert, Oriented Psychiatric: No: Agitated no jaundice diaphoresis Labs: CBC, BMP 04/26/17 05:25 04/26/17 05:25 echo 06/2016: nl lv/rv, mild rommel, mac, mild mr no tele a/p: 66 yo f with hx htn, dm, hld, hypothyroid, obesity, possible copd, CML/ anemia, [place] weakness/fever. acute on chronic diastolic chf: -admitted with sob, bilateral effusions on CT scan, no a.e. copd or PNA in opinion of pulmonary consultants -BNP 1000 here (baseline 400 - 5K) -initially received IVF here, stopped 04/21. -dr crum's note 04/21 advises lasix 40mg IVP x1 but MAR shows no IV dose given (only lasix 20mg po qd) -04/22: marked JVD--start lasix 80 iv x 1 today, then 40 iv daily starting tomorrow -04/23: neg neg 2500cc yesterday. labs stable. cont lasix 40 iv daily -04/24: UOP yest 4900 cc (confirms she is only drinking 1-3 small cups water per day); labs stable (bicarb trending up). cxr today with moderate effusions and vasc engorgement pattern--cont lasix 40 iv qd -04/25: continues to have good diuresis on IV lasix. however has not gotten meds today because lost IV access. If can't get IV access will temporarily switch to torsemide. standing weight if possible with PT. cont to monitor I/O and bmp trend -04/26: cont po torsemide, will need outpt chem7 1 week after dc to see if dose needs to be changed venous ins/lymphedema: -chronic swelling, stable anemia: -baseline values in past here run hgb 7s-9s -came in with hgb 7s, down to 6s, s/p PRBCs 04/21 with improved hgb -w/u and mgmt per pmd htn: -cont lisinopril hld: - Given diabetes, would benefit from statin therapy, can initiate as outpatient once acute issues resolve.
[2017-04-26] MEDS: NYSTATIN POWDER 100,000 UNITS/GM - 15 GM TOPICAL POWDER TP SCH (11:00)
[2017-04-26] MEDS: COLLAGENASE CLOSTRIDIUM HIST. 30 GRAMS TUBE TP SCH (11:00)
--- NOTE | 2017-04-26 11:30 | DS ---
Physical Examination Vital Signs: Vital Signs Temperature 36.8 C 04/26/17 10:00 Pulse Rate 52 L 04/26/17 10:00 Respiratory Rate 18 04/26/17 10:00 Blood Pressure 154/65 04/26/17 10:00 O2 Sat by Pulse Oximetry (%) 99 04/25/17 21:00 Constitutional: Yes: No Distress, Calm, Obese Cardiovascular: Yes: Regular Rate and Rhythm. No: Gallop, Murmur, Rub Respiratory: Yes: Regular, CTA Bilaterally. No: Rales, Rhonchi, Wheezes Gastrointestinal: Yes: Normal Bowel Sounds, Soft. No: Distention, Tenderness Extremities: Yes: WNL Edema: No Labs: CBC, BMP 04/26/17 05:25 04/26/17 05:25 Discharge Summary Reason For Visit: SEPSIS, PNEUMONIA, COPD Current Active Problems Acute respiratory failure (Acute) COPD (chronic obstructive pulmonary disease) (Acute) Pneumonia (Acute) Sepsis (Acute) Hospital Course: (1) Sepsis Code(s): A41.9 - SEPSIS, UNSPECIFIED ORGANISM (2) Acute respiratory failure Code(s): J96.00 - ACUTE RESPIRATORY FAILURE, UNSP W HYPOXIA OR HYPERCAPNIA Qualifiers: Respiratory failure complication: hypoxia Qualified Code(s): J96.01 - Acute respiratory failure with hypoxia (3) Pneumonia Code(s): J18.9 - PNEUMONIA, UNSPECIFIED ORGANISM (4) COPD (chronic obstructive pulmonary disease) Code(s): J44.9 - CHRONIC OBSTRUCTIVE PULMONARY DISEASE, UNSPECIFIED (5) Anemia Code(s): D64.9 - ANEMIA, UNSPECIFIED Qualifiers: Anemia type: unspecified type Qualified Code(s): D64.9 - Anemia, unspecified (6) CHF (congestive heart failure) Code(s): I50.9 - HEART FAILURE, UNSPECIFIED Qualifiers: Congestive heart failure type: diastolic Congestive heart failure chronicity: acute Qualified Code(s): I50.31 - Acute diastolic (congestive ) heart failure (7) CML (chronic myelocytic leukemia) Code(s): C92.10 - CHRONIC MYELOID LEUK, BCR/ABL-POSITIVE, NOT ACHIEVE REMIS (8) Diabetes Code(s): E11.9 - TYPE 2 DIABETES MELLITUS WITHOUT COMPLICATIONS (9) Diabetic foot ulcer Code(s): E11.621 - TYPE 2 DIABETES MELLITUS WITH FOOT ULCER L97.509 - NON-PRESSURE CHRONIC ULCER OTH PRT UNSP FOOT W UNSP SEVERITY Qualifiers: Diabetes mellitus type: other specified (including STORM) Laterality: bilateral (10) Hypertension Code(s): I10 - ESSENTIAL (PRIMARY) HYPERTENSION (11) Hypothyroid Code(s): E03.9 - HYPOTHYROIDISM, UNSPECIFIED Ms Hernandez is a pleasant 66 year old female who comes in with sepsis and acute respiratory failure secondary to CHF exacerbation and concern for pneumonia. She was admitted to the hospital and seen by both ID and pulmonary. She was started on IV antibiotics, however these were stopped by ID as did not believe had pneumonia. She improved off of antibiotics. However she had anemia and was transfused, this is now stable. She was aggressively diuresed and her breathing improved. She was successfully changed to oral torsemide. Pulmonary also had her on steroids and this can be tapered as an outpatient. She is currently stable for discharge to SNF. 37 minutes spent in preparation of this discharge Condition: Good - Instructions Diet, Activity, Other Instructions: resume previous diet and activity Referrals: Carlito Longo MD [Primary Care Provider] - Sukhdeep Laguna MD [Staff Physician] - Disposition: ALF FACILITY - Home Medications Comprehensive Discharge Medication List: Ambulatory Orders Levothyroxine [Synthroid -] 25 mcg PO DAILY 02/19/15 Albuterol Sulfate Inhaler - [Ventolin HFA Inhaler -] 2 inh IH Q6H PRN 04/11/16 Acetaminophen [Tylenol .Regular Strength -] 650 mg PO Q4H PRN #0 tablet Miscellaneous Medical Supply [Wound Vac -] 1 each ASDIR #1 unit 09/06/16 Insulin (Levemir) [Levemir Flexpen -] 10 units SQ HS 11/22/16 Lisinopril [Prinivil] 1 tab PO DAILY 11/22/16 Metformin HCl 1 tab PO BID 11/22/16 Nilotinib HCl [Tasigna] 2 cap PO BID 11/22/16 Docusate Sodium [Colace -] 300 mg PO HS 03/14/17 Aspirin [ASA -] 81 mg PO DAILY 04/20/17 Collagenase Clostridium Hist. [Santyl -] 1 applic TP DAILY 04/20/17 Gabapentin 600 mg PO TID 04/20/17 Oxycodone HCl [Roxicodone -] 10 mg PO Q4H PRN MDD 60mg 04/20/17 Arformoterol Tartrate [Brovana -] 1 amp NEB BID amp 04/26/17 Prednisone [Deltasone -] 30 mg PO DAILY tablet 04/26/17 Torsemide [Demadex -] 40 mg PO DAILY tablet 04/26/17
[2017-04-26] MEDS: INSULIN SLIDING SCALE (NOVOLOG) 1 VIAL SQ SCH (12:04)
--- NOTE | 2017-04-26 12:47 | PN ---
Progress Note (short form) - Note Progress Note: PULMONARY Breathing much improved, feels close to baseline. Minimal cough. Last Vital Signs Temp Pulse Resp BP Pulse Ox 98.2 F 52 L 18 154/65 99 04/26/17 10:00 04/26/17 10:00 04/26/17 10:00 04/26/17 10:00 04/25/17 21:00 Gen: NAD at rest Heart: RRR Lung: decreased breath sounds at the bases Abd: soft, nontender Ext: + edema CBC, BMP 04/26/17 05:25 04/26/17 05:25 Active Medications Acetaminophen (Tylenol -) 650 mg PO Q4H PRN PRN Reason: TEMP >100.5 Last Admin: 04/25/17 13:37 Dose: 650 mg Acetaminophen (Tylenol -) 650 mg PO Q4H PRN PRN Reason: PAIN Last Admin: 04/24/17 12:15 Dose: 650 mg Arformoterol Tartrate (Brovana (Restricted To Pulmonology/Resp) -) 1 amp NEB BID [facility] Last Admin: 04/25/17 21:45 Dose: 1 amp Aspirin (Asa -) 81 mg PO DAILY [facility] Last Admin: 04/26/17 08:59 Dose: 81 mg Benzocaine (Americaine Ointment -) 1 applic HI PRN PRN PRN Reason: PAIN Last Admin: 04/23/17 22:06 Dose: 1 applic Collagenase (Santyl -) 1 applic TP DAILY [facility] Last Admin: 04/26/17 11:00 Dose: 1 applic Docusate Sodium (Colace -) 300 mg PO HS [facility] Last Admin: 04/25/17 21:31 Dose: 300 mg Gabapentin (Neurontin -) 600 mg PO TID [facility] Last Admin: 04/25/17 21:30 Dose: 600 mg Heparin Sodium (Porcine) (Heparin -) 5,000 unit SQ BID [facility] Last Admin: 04/26/17 08:59 Dose: 5,000 unit Insulin Aspart (Novolog Vial Sliding Scale -) 1 vial SQ ACHS [facility] PRN Reason: Protocol Last Admin: 04/26/17 12:04 Dose: 4 units Insulin Detemir (Levemir Vial) 10 units SQ HS [facility] Last Admin: 04/25/17 21:31 Dose: 10 unit Levothyroxine Sodium (Synthroid -) 25 mcg PO AM [facility] Last Admin: 04/25/17 06:39 Dose: 25 mcg Lisinopril (Prinivil) 20 mg PO DAILY [facility] Last Admin: 04/26/17 08:59 Dose: 20 mg Metformin HCl (Glucophage -) 500 mg PO BIDI [facility] Last Admin: 04/25/17 17:07 Dose: 500 mg Pt's Own (Nilotinib (Hcl [Tasigna])) 2 cap PO BID@0600,1500 [facility] Last Admin: 04/25/17 14:49 Dose: Not Given Nystatin (Nystop Powder -) 1 applic TP DAILY [facility] Last Admin: 04/26/17 11:00 Dose: 1 applic Ondansetron HCl (Zofran Injection) 4 mg IVPB Q6H PRN PRN Reason: NAUSEA Oxycodone HCl (Roxicodone -) 10 mg PO Q4H PRN PRN Reason: PAIN Last Admin: 04/26/17 09:00 Dose: 10 mg Ranitidine HCl (Zantac -) 150 mg PO BID [facility] Last Admin: 04/26/17 08:59 Dose: 150 mg Torsemide (Demadex -) 40 mg PO DAILY [facility] Last Admin: 04/26/17 08:59 Dose: 40 mg A/P Acute on Chronic Diastolic Heart Failure Pleural Effusions Atelectasis COPD Fever HTN DM Hypothyroidism Morbid Obesity Anemia CML - continue torsemide - monitor urine output, creatinine - completed empiric antibiotics - inhaled bronchodilators - O2 to keep SpO2 >90% - DVT prophylaxis - d/c planning in progress
[2017-04-26] MEDS ORDERED: PT OWN MED DRAWER 7, Y5N ONE (14:25)
[2017-04-26 14:38] VITALS: BP 131/67; PULSE 63; TEMP 98.3
== END 2017-04-26 14:41 | DRG 871 ==
LOC: JER 21:23 → JERBED 04-20 00:51 → UNDOADMIN 04-20 00:54 → JERBED 04-20 00:54 → J2W 04-20 04:14 → J4S 04-20 20:35
PROVIDERS: ADMIT Internal Medicine Geriatric Medicine; ATTEND Internal Medicine Geriatric Medicine
PROC: 5A09357 Assistance with Respiratory Ventilation, Less than 24 Consecutive Hours, Continuous Positive Airway Pressure (ICD-10-PCS; principal; 2017-04-20)
PROC: 30233H1 Transfusion of Nonautologous Whole Blood into Peripheral Vein, Percutaneous Approach (ICD-10-PCS; 2017-04-20)
DX: A41.9 Sepsis, unspecified organism (principal); J96.01 Acute respiratory failure with hypoxia; J18.9 Pneumonia, unspecified organism; I50.33 Acute on chronic diastolic (congestive) heart failure; C92.10 Chronic myeloid leukemia, BCR/ABL-positive, not having achieved remission; J44.1 Chronic obstructive pulmonary disease with (acute) exacerbation; Z68.41 Body mass index [BMI] 40.0-44.9, adult; J98.11 Atelectasis; E66.01 Morbid (severe) obesity due to excess calories; E11.621 Type 2 diabetes mellitus with foot ulcer; E11.40 Type 2 diabetes mellitus with diabetic neuropathy, unspecified; Z79.84 Long term (current) use of oral hypoglycemic drugs; Z79.4 Long term (current) use of insulin; I10 Essential (primary) hypertension; E03.9 Hypothyroidism, unspecified; K76.0 Fatty (change of) liver, not elsewhere classified; F41.9 Anxiety disorder, unspecified; Z86.718 Personal history of other venous thrombosis and embolism; E78.00 Pure hypercholesterolemia, unspecified; Z87.891 Personal history of nicotine dependence; L97.519 Non-pressure chronic ulcer of other part of right foot with unspecified severity; I87.8 Other specified disorders of veins; D64.9 Anemia, unspecified
CPT/HCPCS: 36415; 36430; 71010-TC; 71275-TC; 80048; 80053; 81003; 81015; 82803; 83036; 83605; 83735; 83880; 84100; 84443; 84484; 85025; 85027; 85610; 85730; 86850; 86900; 86901; 86922; 87040; 87081; 87086; 93005; 93010; 93306-TC; 94640; 94660; 97161-GP; 99285-25; J1644; P9038; P9058

== ENCOUNTER 2017-05-03 14:58 | Inpatient (IN) | payer OTHER ==
[2017-05-03 15:53] VITALS: BMI 31.8
[2017-05-03] MEDS ORDERED: ACETAMINOPHEN INJECTION 100 ML IVPB ONE (17:48)
[2017-05-03] MEDS ORDERED: ACETAMINOPHEN 1000 MG/100 ML VIAL (NON FORMULARY) IVPB ONE (17:49)
[2017-05-03 17:53] LABS: MCH 28.7 pg (25.7-33.7); MCHC 32.4 g/dl (32.0-36.0); MEAN CELL VOLUME 88.6 fl (80-96); MEAN PLT VOLUME 8.4 fl (7.5-11.1); PLATELET COUNT 200 K/MM3 (134-434); RDW 17.6 % (11.6-15.6); WHITE BLOOD COUNT 24.4 K/mm3 (4.0-10.0)
[2017-05-03 18:14] LABS: INR 1.05 (0.82-1.09); PROTHROMBIN TIME (PATIENT) 11.6 SEC (9.98-11.88)
[2017-05-03 18:15] LABS: URINE APPEARANCE CLEAR; URINE BILIRUBIN NEGATIVE (NEGATIVE); URINE BLOOD NEGATIVE (NEGATIVE); URINE COLOR LTYELLOW; URINE GLUCOSE (UA) NEGATIVE (NEGATIVE); URINE KETONE NEGATIVE (NEGATIVE); URINE LEUK ESTERASE NEGATIVE (NEGATIVE); URINE NITRITE NEGATIVE (NEGATIVE); URINE PROTEIN NEGATIVE (NEGATIVE); URINE UROBILINOGEN NEGATIVE mg/dL (0.2-1.0)
[2017-05-03 18:36] LABS: METAMYELOCYTE 1 % (0-2); NUCLEATED RED BLOOD CELL 1 % (0-0); PLATELET ESTIMATE ADEQUATE (NORMAL); TOTAL CELLS COUNTED 100
[2017-05-03] MEDS ORDERED: SODIUM CHLORIDE 1,000 ML IV SCH (19:15)
[2017-05-03] MEDS ORDERED: ALBUTEROL SO4 6.7 GM HFA INHALER IH PRN (20:07)
[2017-05-03] MEDS ORDERED: ACETAMINOPHEN 325 MG TABLET (FP) PO PRN (20:07)
[2017-05-03] MEDS ORDERED: oxyCODONE HCL 5 MG TABLET PO PRN (20:07)
--- NOTE | 2017-05-03 20:52 | PDOC ---
History of Present Illness - General Chief Complaint: SIRS, Suspected/Possible Stated Complaint: AMS Time Seen by Provider: 05/03/17 19:29 History Source: Patient, Sibling Exam Limitations: Other (lethargic) - History of Present Illness Initial Comments: 66yo F with PMH of CML on chemotherapy, DM presenting with shortness of breath. History difficult to obtain as pt is quite lethargic. Pt reports SOB came on suddenly this morning, that she has never had symptoms like this before, and that the symptoms are now resolved. Pt denies chest pain, orthopnea. Pt was recently adm for fever. Sister came by later and reported that she had seen pt at 8pm last night and pt was completely normal (ate a full dinner and was laughing with sister). Sister reports that pt was in Physical Therapy this morning when she started shaking and having SOB (per [facility] staff). Sister also endorses that pt is acutely confused compared to baseline, showing AMS. Pt recently changed Oncology service from [facility] to [facility] and follows the [facility] per sister. 05/03/17 21:26 Timing/Duration: 4-6 hours Associated Symptoms: reports: shortness of breath Past History - Past Medical History Allergies/Adverse Reactions: Allergies Allergy/AdvReac Type Severity Reaction Status Date / Time metoprolol Allergy Intermediate Rash Verified 04/19/17 21:34 Home Medications: Ambulatory Orders Albuterol Sulfate Inhaler - [Ventolin HFA Inhaler -] 2 inh IH Q6H PRN 04/11/16 Acetaminophen [Tylenol .Regular Strength -] 650 mg PO Q4H PRN #0 tablet Miscellaneous Medical Supply [Wound Vac -] 1 each ASDIR #1 unit 09/06/16 Insulin (Levemir) [Levemir Flexpen -] 10 units SQ HS 11/22/16 Lisinopril [Prinivil] 1 tab PO DAILY 11/22/16 Metformin HCl 2 tab PO BID 11/22/16 Nilotinib HCl [Tasigna] 2 cap PO BID 11/22/16 Docusate Sodium [Colace -] 300 mg PO HS 03/14/17 Aspirin [ASA -] 81 mg PO DAILY 04/20/17 Gabapentin 600 mg PO TID 04/20/17 Oxycodone HCl [Roxicodone -] 10 mg PO Q4H PRN MDD 60mg 04/20/17 Arformoterol Tartrate [Brovana -] 1 amp NEB BID amp 04/26/17 Collagenase Clostridium Hist. [Santyl] 1 inch TP DAILY 05/03/17 Insulin Lispro [Humalog] 100 unit SQ PRN 05/03/17 Levothyroxine [Synthroid -] 25 mcg PO DAILY 05/03/17 Torsemide [Demadex -] 40 mg PO BID 05/03/17 Anemia: Yes Asthma: No Cancer: Yes (CML) Cardiac Disorders: No CVA: No COPD: Yes CHF: No Dementia: No Diabetes: Yes (diabetic foot ulcer) GI Disorders: No Disorders: Yes (uti) HTN: Yes Hypercholesterolemia: Yes Suicide Attempt (Hx): No Seizures: No Thyroid Disease: Yes (HYPO) - Surgical History Abdominal Surgery: Yes (hernia) Appendectomy: No Cardiac Surgery: No Cholecystectomy: Yes Lung Surgery: No Neurologic Surgery: No Orthopedic Surgery: No - Immunization History Immunization Up to Date: Yes - Psycho/Social/Smoking Cessation Hx Anxiety: No Suicidal Ideation: No Smoking Status: Yes Smoking History: Former smoker Have you smoked in the past 12 months: No Number of Cigarettes Smoked Daily: 0 If you are a former smoker, when did you quit?: 2013 Cigars Per Day: 0 Information on smoking cessation initiated: No 'Breaking Loose' booklet given: 02/28/12 Hx Alcohol Use: No Drug/Substance Use Hx: No Substance Use Type: None Hx Substance Use Treatment: No Review of Systems - Review of Systems Able to Perform ROS?: (extremely limited) Constitutional: Yes: Fever HEENTM: No: Recent change in vision, Throat Pain Respiratory: Yes: Shortness of Breath. No: Cough, Orthopnea, Stridor, Wheezing Cardiac (ROS): No: Chest Pain Neurological: No: Headache *Physical Exam - Vital Signs Last Vital Signs Temp Pulse Resp BP Pulse Ox 99 F 102 H 20 107/71 100 05/03/17 19:56 05/03/17 15:41 05/03/17 15:41 05/03/17 15:41 05/03/17 15:41 - Physical Exam General Appearance: Yes: Nourished. No: Apparent Distress HEENT: positive: EOMI, NELLY, Normal ENT Inspection. negative: Pale Conjunctivae , Scleral Icterus (R), Scleral Icterus (L) Neck: positive: Trachea midline, Normal Thyroid, Supple Respiratory/Chest: positive: Lungs Clear. negative: Accessory Muscle Use, Stridor, Wheezing Cardiovascular: positive: Regular Rhythm, S1, S2. 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 negative: Facial Droop ED Treatment Course - LABORATORY CBC & Chemistry Diagram: 05/03/17 17:45 05/03/17 21:16 - ADDITIONAL ORDERS Additional order review: Laboratory Results 05/03/17 05/03/17 05/03/17 18:15 17:45 17:45 WBC RBC Hgb Hct MCV MCH MCHC RDW Plt Count MPV Total Counted Neutrophils % Neutrophils % (Manual) Band Neuts % (Manual) Lymphocytes % Lymphocytes % (Manual) Monocytes % (Manual) Eosinophils % (Manual) Nucleated RBC % Other Cell Type Platelet Estimate INR Sodium Cancelled Potassium Cancelled Chloride Cancelled Carbon Dioxide Cancelled Anion Gap Cancelled BUN Cancelled Creatinine Cancelled Creat Clearance w eGFR Cancelled Random Glucose Cancelled Lactic Acid Calcium Cancelled Total Bilirubin Cancelled AST Cancelled ALT Cancelled Alkaline Phosphatase Cancelled Total Protein Cancelled Albumin Cancelled Urine Color Ltyellow Urine Appearance Clear Urine pH 7.0 D Urine Protein Negative Urine Glucose (UA) Negative Urine Ketones Negative Urine Blood Negative Urine Nitrite Negative Urine Bilirubin Negative Urine Urobilinogen Negative Ur Leukocyte Esterase Negative Blood Type O POSITIVE Antibody Screen Negative 05/03/17 05/03/17 05/03/17 17:45 17:45 17:45 WBC 24.4 H D RBC 3.78 Hgb 10.9 D Hct 33.5 MCV 88.6 MCH 28.7 MCHC 32.4 RDW 17.6 H Plt Count 200 D MPV 8.4 Total Counted 100 Neutrophils % Y Neutrophils % (Manual) 87 H Band Neuts % (Manual) 6 Lymphocytes % Y Lymphocytes % (Manual) 2 L Monocytes % (Manual) 3 L Eosinophils % (Manual) 1 Nucleated RBC % 1 H Other Cell Type Platelet Estimate Adequate INR 1.05 Sodium Potassium Chloride Carbon Dioxide Anion Gap BUN Creatinine Creat Clearance w eGFR Random Glucose Lactic Acid 2.5 H* Calcium Total Bilirubin AST ALT Alkaline Phosphatase Total Protein Albumin Urine Color Urine Appearance Urine pH Urine Protein Urine Glucose (UA) Urine Ketones Urine Blood Urine Nitrite Urine Bilirubin Urine Urobilinogen Ur Leukocyte Esterase Blood Type Antibody Screen 05/03/17 17:45 RBC 3.78 MCV 88.6 MCHC 32.4 RDW 17.6 H MPV 8.4 Neutrophils % Y Lymphocytes % Y - RADIOLOGY Radiology Studies Ordered: Category Date Time Status ABDOMEN CT WITH CONTRAST* [CT] Stat CT Scan 05/03/17 20:[address] WITHOUT CONTRAST [CT] Stat CT Scan 05/03/17 20:22 Ordered - Medications Given in the ED: ED Medications Discontinued Medications Generic Name Dose Route Start Last Admin Trade Name Freq PRN Reason Stop Dose Admin Acetaminophen 1,000 mg 05/03/17 17:49 05/03/17 17:50 Ofirmev Injection - IVPB 05/03/17 17:50 1,000 mg NOW ONE Administration Sodium Chloride 1,000 mls @ 125 mls/hr 05/03/17 19:15 05/03/17 19:38 Normal Saline - IV 125 mls/hr ASDIR JOVITA Administration Medical Decision Making - Medical Decision Making 66yo F with PMH of CML on chemotherapy, DM presenting c/o SOB of sudden onset. Pt found to have severe sepsis x 3 (leukocyte count 24.4, fever 102F, tachycardia 102, plus lactic acidosis of 2.5) with AMS. CXR appears normal, though official report is pending. U/A (-) blood cultures sent NS @ 125 ml/hr Heat CT non contrast ordered Ab/Pelvis CT with IV contrast ordered 05/03/17 21:36 05/03/17 22:22 CMP came back with electrolyte abnormalities Ca++ 5.2 -> Ca++ gluconate 1g IVPB K+ 3.0 -> KCl 40 meq PO Pt should be admitted by hospitalist covering for Adriane. 05/03/17 22:40 Discussed admission with hospitalist, they will accept adm pending CT results. Sign out given to Dr. Randle. *DC/Admit/Observation/Transfer Diagnosis at time of Disposition: Severe sepsis, Diabetes, Electrolyte abnormality, CML (chronic myelocytic leukemia), Altered mental status - Discharge Dispostion Condition at time of disposition: Guarded Admit: Yes - Referrals Referrals: Carlito Longo MD [Primary Care Provider] - - Patient Instructions - Post Discharge Activity
--- NOTE | 2017-05-03 20:54 | PDOC ---
Attending Attestation - Resident Resident Name: Ofe Contreras - ED Attending Attestation I have performed the following: I have examined & evaluated the patient, The case was reviewed & discussed with the resident, I agree w/resident's findings & plan, Exceptions are as noted - HPI HPI: 05/03/17 20:51 Pt presents febrile with change in mental status from the NH. Pt was recently admitted and discharged for fever as well. - Physicial Exam PE: 05/03/17 20:53 *Physical Exam General Appearance: Yes: Appropriately Dressed. No: Apparent Distress, Intoxicated HEENT: positive: EOMI, NELLY, Normal ENT Inspection, Normal Voice, TMs Normal, Pharynx Normal. negative: Pale Conjunctivae, Photophobia, Scleral Icterus (R), Scleral Icterus (L) Neck: positive: Trachea midline, Normal Thyroid, Supple. negative: Tender, Rigid, Carotid bruit, Stridor, Lymphadenopathy (R), Lymphadenopathy (L), Thyromegaly Respiratory/Chest: positive: Lungs Clear, Normal Breath Sounds. negative: Chest Tender, Respiratory Distress, Accessory Muscle Use, Labored Respiration, RES, Crackles, Rales, Rhonchi, Stridor, Wheezing, Dullness Cardiovascular: positive: Regular Rhythm, Regular Rate, S1, S2. negative: Edema , JVD, Murmur, Bradycardia, Tachycardia Vascular Pulses: Dorsalis-Pedis (R): 2+, Doralis-Pedis (L): 2+ Gastrointestinal/Abdominal: positive: Normal Bowel Sounds, Flat, Soft. negative : Tender, Organomegaly, Pulsatile Mass, Increased Bowel Sounds, Decreased BS, Distended, Guarding, Rebound, Hernia, Hepatomegaly, Spleenomegaly Lymphatic: negative: Adenopathy, Tenderness Musculoskeletal: positive: Normal Inspection. negative: CVA Tenderness, Decreased Range of Motion Extremity: positive: Normal Capillary Refill, Normal Inspection, Normal Range of Motion, Pelvis Stable. negative: Tender, Pedal Edema, Swelling, Erythema Integumentary: positive: Normal Color, Dry, Warm. negative: Cyanotic, Erythema , Jaundice, Rash Neurologic: positive: senior education specialist II-XII NML intact, Fully Oriented, Alert, Normal Mood/ Affect, Motor Strength 5/5. negative: EOM Palsy, Facial Droop, Sensory Deficit - Medical Decision Making 05/03/17 20:53 pt will be admitted <Rolando Randle - Last Filed: 05/04/17 19:28> ED Treatment Course - LABORATORY CBC & Chemistry Diagram: 05/03/17 17:45 05/03/17 21:16 - ADDITIONAL ORDERS Additional order review: Laboratory Results 05/03/17 05/03/17 05/03/17 21:16 18:15 17:45 INR Sodium 146 H Potassium 3.0 L D Chloride 114 H D Carbon Dioxide 25 D Anion Gap 7 L BUN 36 H D Creatinine 0.5 L Creat Clearance w eGFR > 60 Random Glucose 104 D Lactic Acid Calcium 5.2 L* D Total Bilirubin 0.3 AST 29 D ALT 34 D Alkaline Phosphatase 68 D Total Protein 4.0 L D Albumin 1.6 L D Urine Color Ltyellow Urine Appearance Clear Urine pH 7.0 D Ur Specific [place] 1.015 Urine Protein Negative Urine Glucose (UA) Negative Urine Ketones Negative Urine Blood Negative Urine Nitrite Negative Urine Bilirubin Negative Urine Urobilinogen Negative Ur Leukocyte Esterase Negative Blood Type O POSITIVE Antibody Screen Negative 05/03/17 05/03/17 05/03/17 17:45 17:45 17:45 INR 1.05 Sodium Cancelled Potassium Cancelled Chloride Cancelled Carbon Dioxide Cancelled Anion Gap Cancelled BUN Cancelled Creatinine Cancelled Creat Clearance w eGFR Cancelled Random Glucose Cancelled Lactic Acid 2.5 H* Calcium Cancelled Total Bilirubin Cancelled AST Cancelled ALT Cancelled Alkaline Phosphatase Cancelled Total Protein Cancelled Albumin Cancelled Urine Color Urine Appearance Urine pH Ur Specific [place] Urine Protein Urine Glucose (UA) Urine Ketones Urine Blood Urine Nitrite Urine Bilirubin Urine Urobilinogen Ur Leukocyte Esterase Blood Type Antibody Screen 05/03/17 17:45 RBC 3.78 MCV 88.6 MCHC 32.4 RDW 17.6 H MPV 8.4 Neutrophils % Y Lymphocytes % Y - RADIOLOGY Radiograph Interpretation: 05/04/17 00:29 EXAM: CT ABDOMEN AND PELVIS Reviewed by Imaging community integration specialist: FINDINGS: Abdomen Liver: Normal. There is an intrahepatic pneumobilia Spleen: Normal Pancreas: Normal Gallbladder: Surgically absent. Stomach: Normal Small bowel: Normal Large bowel: Normal Appendix: Not seen Adrenals:Normal Kidneys: Normal Vascular: There are moderate vascular calcifications in the abdominal aorta Lymphatic: Normal Peritoneal: No free peritoneal air or fluid Pelvis: Uterus: normal Rectum: Normal Bladder: Normal The inferior thorax: There is small bilateral pleural fluid collections General: Skeletal: Normal Abdominal wall: Normal IMPRESSION: Nonspecific pleural fluid collections. Cholecystectomy - Medications Given in the ED: ED Medications Discontinued Medications Generic Name Dose Route Start Last Admin Trade Name Santhosh PRN Reason Stop Dose Admin Acetaminophen 1,000 mg 05/03/17 17:49 05/03/17 17:50 Ofirmev Injection - IVPB 05/03/17 17:50 1,000 mg NOW ONE Administration <Millie Allison - Last Filed: 05/04/17 00:29> - LABORATORY CBC & Chemistry Diagram: 05/04/17 06:15 05/04/17 06:15 <Rolando Randle - Last Filed: 05/04/17 19:28>
[2017-05-03 21:58] LABS: ALBUMIN 1.6 g/dl (3.4-5.0); ALK PHOS 68 U/L (45-117); ANION GAP 7 (8-16); BILIRUBIN,TOTAL 0.3 mg/dL (0.2-1.0); CO2 25 mmol/L (21-32); CREATININE 0.5 mg/dL (0.55-1.02); GLUCOSE,RANDOM 104 mg/dL (74-106); SGOT/AST 29 U/L (15-37); SGPT/ALT 34 U/L (12-78)
[2017-05-03] MEDS ORDERED: metFORMIN HCL 500 MG TABLET (FP) PO SCH (22:00)
[2017-05-03] MEDS ORDERED: DOCUSATE SODIUM 100 MG CAPSULE (FP) PO SCH (22:00)
[2017-05-03] MEDS ORDERED: PATIENT'S OWN MEDICATION (NON-FORMULARY) (Gabapentin [Gabapentin] 600 MG) PO SCH (22:00)
[2017-05-03] MEDS ORDERED: ARFORMOTEROL TARTRATE 15 MCG/2 ML VIAL NEB SCH (22:00)
[2017-05-03] MEDS ORDERED: TORSEMIDE 20 MG TABLET (FP) PO SCH (22:00)
[2017-05-03] MEDS ORDERED: NILOTINIB HCL PO SCH (22:00)
[2017-05-03 22:14] LABS: CALCIUM 5.2 mg/dL (8.5-10.1)
[2017-05-03] MEDS ORDERED: POTASSIUM CHLORIDE TABS 20 MEQ TABLET.ER (FP) PO ONE (22:16)
[2017-05-03] MEDS ORDERED: CALCIUM GLUCONATE 10% - 1,000 MG/10 ML VIAL IVPB ONE (22:16)
--- NOTE | 2017-05-03 22:56 | PN ---
Teaching Attending Note Name of Resident: Rene Marie ATTENDING PHYSICIAN STATEMENT I saw and evaluated the patient. I reviewed the resident's note and discussed the case with the resident. I agree with the resident's findings and plan as documented. SUBJECTIVE: 66 y/o F presented to ED c/o sudden onset of SOB after recent discharge from hospital. OBJECTIVE: On examination patient was lethargic and oriented to self only in moderate distress, PERRLA, EOMI, dry mucus membranes. Lungs with bibasilar crackles. Abdomen soft, NT, BS+ and lower ext 2+ pitting edema, RLE foot ulcer and erythema. ASSESSMENT AND PLAN: Sepsis secondary to RLE cellulitis and DM ulcer- Start IVF, Vancomycin and zosyn , follow cultures, ID consult. CML oncology consult, DM RISS, COPD, Nebs q6h prn, Continue home medications for HTN, hypothyroidism and DCHF. Case d/w resindets and plans agreed on.
[2017-05-04] MEDS ORDERED: CALCIUM GLUCONATE 10% - 1,000 MG/10 ML VIAL ONE (01:02)
[2017-05-04] MEDS ORDERED: POTASSIUM CHLORIDE TABS 20 MEQ TABLET.ER (FP) PO ONE (01:03)
--- NOTE | 2017-05-04 01:24 | HP ---
CHIEF COMPLAINT: SOB PCP: Dr. 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 Patient is a poor historian and no family at bedside. Per ER, Pt reports that SOB came on suddenly this morning. She has never had symptoms like this before and the symptoms have since resolved in the ED. Pt denies chest pain, orthopnea. Pt was recently admitted for sepsis last week. ED reports that sister came by and reported that she had seen pt at 8pm last night and pt was completely normal (ate a full dinner and was laughing with sister). Sister reports that pt was in Physical Therapy this morning when she started shaking and having SOB (per [facility] staff). Sister also endorses that pt is acutely confused compared to baseline. Pt recently changed Oncology service from [facility] to [facility] and follows the [facility] per sister. ER course was notable for: (1) wbc- 24.4, K+ 3.0, lactic acid 2.5, calcium corrected 7.1 (2) UA- negative (3) Head ct- negative PAST MEDICAL HISTORY:CML on chemotherapy, DM, COPD, HTN, HLD, and hypothyroidism PAST SURGICAL HISTORY: cholecystectomy, , hernia repair Social History: Smoking: former smoker quit in 2013 Alcohol: unsure Drugs: unsure Family History: unsure Allergies metoprolol Allergy (Intermediate, Verified 04/19/17 21:34) Rash HOME MEDICATIONS: Home Medications Medication Instructions Recorded Albuterol Sulfate Inhaler - 2 inh IH Q6H PRN 04/11/16 [Ventolin HFA Inhaler -] Acetaminophen [Tylenol .Regular 650 mg PO Q4H PRN #0 tablet 06/28/16 Strength -] Miscellaneous Medical Supply 1 each ASDIR #1 unit 09/06/16 [Wound Vac -] Insulin (Levemir) [Levemir Flexpen 10 units SQ HS 11/22/16 -] Lisinopril [Prinivil] 1 tab PO DAILY 11/22/16 Metformin HCl 2 tab PO BID 11/22/16 Nilotinib HCl [Tasigna] 2 cap PO BID 11/22/16 Docusate Sodium [Colace -] 300 mg PO HS 03/14/17 Aspirin [ASA -] 81 mg PO DAILY 04/20/17 Gabapentin 600 mg PO TID 04/20/17 Oxycodone HCl [Roxicodone -] 10 mg PO Q4H PRN MDD 60mg 04/20/17 Arformoterol Tartrate [Brovana -] 1 amp NEB BID amp 04/26/17 Collagenase Clostridium Hist. 1 inch TP DAILY 05/03/17 [Santyl] Insulin Lispro [Humalog] 100 unit SQ PRN 05/03/17 Levothyroxine [Synthroid -] 25 mcg PO DAILY 05/03/17 Torsemide [Demadex -] 40 mg PO BID 05/03/17 REVIEW OF SYSTEMS-- unable to be attained due to patient's poor mental status CONSTITUTIONAL: Absent: fever, chills, diaphoresis, generalized weakness, malaise, loss of appetite, weight change HEENT: Absent: rhinorrhea, nasal congestion, throat pain, throat swelling, difficulty swallowing, mouth swelling, ear pain, eye pain, visual changes CARDIOVASCULAR: Absent: chest pain, syncope, palpitations, irregular heart rate, lightheadedness , peripheral edema RESPIRATORY: Absent: cough, shortness of breath, dyspnea with exertion, orthopnea, wheezing, stridor, hemoptysis GASTROINTESTINAL: Absent: abdominal pain, abdominal distension, nausea, vomiting, diarrhea, constipation, melena, hematochezia GENITOURINARY: Absent: dysuria, frequency, urgency, hesitancy, hematuria, flank pain, genital pain MUSCULOSKELETAL: Absent: myalgia, arthralgia, joint swelling, back pain, neck pain SKIN: Absent: rash, itching, pallor HEMATOLOGIC/IMMUNOLOGIC: Absent: easy bleeding, easy bruising, lymphadenopathy, frequent infections ENDOCRINE: Absent: unexplained weight gain, unexplained weight loss, heat intolerance, cold intolerance NEUROLOGIC: Absent: headache, focal weakness or paresthesias, dizziness, unsteady gait, seizure, mental status changes, bladder or bowel incontinence PSYCHIATRIC: Absent: anxiety, depression, suicidal or homicidal ideation, hallucinations. PHYSICAL EXAMINATION Vital Signs - 24 hr 05/03/17 23:06 Pulse Rate [ 86 Apical] Respiratory 20 Rate Blood Pressure 171/74 [Left Arm] O2 Sat by Pulse 100 Oximetry (%) GENERAL: Lethargic, oriented x1, in mild-moderate distress HEAD: Normal with no signs of trauma. EYES: Pupils equal, round and reactive to light, extraocular movements intact, sclera anicteric, conjunctiva clear. No lid lag. EARS, NOSE, THROAT: Oropharynx clear without exudates. Dry mucous membranes. NECK: Normal range of motion, supple without lymphadenopathy, JVD, or masses. LUNGS: Breath sounds equal, Mild crackles at bases HEART: Regular rate and rhythm, normal S1 and S2 without murmur, rub or gallop. ABDOMEN: Soft, nontender, not distended, normoactive bowel sounds, no guarding, no rebound, no masses. No hepatomegaly or splenomegaly. MUSCULOSKELETAL: Normal range of motion at all joints. No bony deformities or tenderness. No CVA tenderness. UPPER EXTREMITIES: 2+ pulses, warm, well-perfused. No cyanosis. No clubbing. No peripheral edema. LOWER EXTREMITIES: 2+ pulses, warm, well-perfused. + tenderness to palpation, 2- 3 + pitting edema with hyperkeratotic changes. patient has ulcer at right foot base. Area of erythema on right leg. +warmth of RLE ASSESSMENT/PLAN: 66 year old F with multiple medical comorbidities presenting with SOB admitted for sepsis 2/2 to RLE cellulitis #Sepsis 2/2 to RLE cellulitis & Diabetic foot ulcer -1 dose of Vancomycin/Zosyn given -Repeat lactic acid -Wound culture of right heel ulcer -b/l duplex of lower extremities -ID consulted, Dr. Pena -oxycodone 10 mg po q4h prn -Urine culture pending -blood culture pending #Electrolyte abnormalities (hypokalemia, hypocalcemia) -Electrolytes repleted -Will continue to monitor -Check mg and phos #CML on chemotherapy -Oncology consult, Dr. Phillips #DM -bgm achs -iss achs -hold home dm medications #COPD -Continue albuterol 2 puff ih q6h prn #HTN -Continue torsemide 40 mg po bid -Continue lisinopril 20 mg po daily #Hypothyroidism -continue synthroid 25 mcg po daily #Diastolic CHF -Continue demedex 40 mg po bid #FEN/Gi -IVF @ 83 cc/hr -repleted -diabetic/sodium controlled diet #PPx dvt- heparin 5000 units sq tid Visit type - Emergency Visit Emergency Visit: Yes ED Registration Date: 05/03/17 Care time: The patient presented to the Emergency Department on the above date and was hospitalized for further evaluation of their emergent condition. - New Patient This patient is new to me today: Yes Date on this admission: 05/07/17 - Critical Care Critical Care patient: No
[2017-05-04] MEDS ORDERED: PIPERACILLIN/TAZOB 4.5 GM 100 ML IVPB ONE ×2 (01:31→02:15)
[2017-05-04] MEDS ORDERED: VANCOMYCIN 1 GRAM (PRE-DOCKED) 1,000 MG/250 ML BAG IVPB ONE (01:31)
[2017-05-04] MEDS ORDERED: POTASSIUM CHLORIDE 20 MEQ PREMIX IVPB 100 ML IVPB ONE (01:35)
[2017-05-04] MEDS ORDERED: VANCOMYCIN 1 GRAM (PRE-DOCKED) 250 ML IVPB ONE (03:28)
[2017-05-04] MEDS ORDERED: KCL 10 MEQ IVPB 100 ML IVPB ONE (06:08)
[2017-05-04] MEDS: SODIUM CHLORIDE 1,000 ML IV SCH ×2 (06:09→19:00)
[2017-05-04] MEDS ORDERED: HEPARIN NA (PORCINE) 5,000 UNITS/ML 1ML VIAL ONE (06:27)
[2017-05-04] MEDS: HEPARIN NA (PORCINE) 5,000 UNITS/ML 1ML VIAL SQ SCH ×3 (06:30→23:11)
[2017-05-04] MEDS ORDERED: ALBUTEROL SO4 6.7 GM HFA INHALER IH PRN (06:38)
[2017-05-04 06:58] LABS: MAGNESIUM 2.1 mg/dL (1.8-2.4); PHOSPHOROUS 3.3 mg/dL (2.5-4.9)
[2017-05-04 06:59] LABS: MCH 28.3 pg (25.7-33.7); MCHC 31.9 g/dl (32.0-36.0); MEAN CELL VOLUME 88.6 fl (80-96); MEAN PLT VOLUME 8.2 fl (7.5-11.1); PLATELET COUNT 171 K/MM3 (134-434); RDW 17.2 % (11.6-15.6); WHITE BLOOD COUNT 18.6 K/mm3 (4.0-10.0)
[2017-05-04] MEDS ORDERED: metFORMIN HCL 500 MG TABLET (FP) PO SCH (07:00)
[2017-05-04 07:02] LABS: ALBUMIN 2.8 g/dl (3.4-5.0); ANION GAP 8 (8-16); CALCIUM 8.8 mg/dL (8.5-10.1); CO2 33 mmol/L (21-32); GLUCOSE,RANDOM 236 mg/dL (74-106); SGPT/ALT 52 U/L (12-78)
[2017-05-04 07:05] LABS: ALK PHOS 119 U/L (45-117); CREATININE 0.8 mg/dL (0.55-1.02); SGOT/AST 41 U/L (15-37); TOT PROT 7.1 g/dl (6.4-8.2)
[2017-05-04] MEDS: INSULIN SLIDING SCALE (NOVOLOG) 1 VIAL SQ SCH ×4 (07:24→23:15)
[2017-05-04] MEDS ORDERED: LEVOTHYROXINE NA 25 MCG TABLET (FP) ONE (08:18)
[2017-05-04] MEDS: LEVOTHYROXINE NA 25 MCG TABLET (FP) PO SCH (08:26)
[2017-05-04] MEDS ORDERED: COLLAGENASE CLOSTRIDIUM HIST. 30 GRAMS TUBE TP SCH ×2 (10:00)
[2017-05-04] MEDS ORDERED: LEVOTHYROXINE NA 25 MCG TABLET (FP) PO SCH (10:00)
[2017-05-04] MEDS ORDERED: LISINOPRIL 20 MG TABLET (FP) PO SCH ×2 (10:00)
[2017-05-04] MEDS ORDERED: TORSEMIDE 20 MG TABLET (FP) PO SCH (10:00)
[2017-05-04] MEDS ORDERED: ASPIRIN 81 MG CHEWABLE TABLETS PO SCH (10:00)
--- NOTE | 2017-05-04 11:12 | EKG ---
Test Reason : Blood Pressure : / mmHG Vent. Rate : 086 BPM Atrial Rate : 288 BPM P-R Int : 000 ms QRS Dur : 076 ms QT Int : 358 ms P-R-T Axes : 000 012 055 degrees QTc Int : 428 ms POOR DATA QUALITY, INTERPRETATION MAY BE ADVERSELY AFFECTED NORMAL SINUS RHYTHM Confirmed by VITALIY MIRANDA, CAROLINE ([id number]) on 05/04/2017 11:12:29 AM Referred By: Confirmed By:CAROLINE BURKS MD
[2017-05-04] MEDS: ASPIRIN 81 MG CHEWABLE TABLETS PO SCH (13:32)
[2017-05-04] MEDS: LISINOPRIL 20 MG TABLET (FP) PO SCH (13:33)
--- NOTE | 2017-05-04 13:56 | CONSULT ---
Consult Consult Specialty:: infectious diseases Reason for Consultation:: bilateral cellulitits. ams - History of Present Illness History of Present Illness: this patient well known to me from previous admissions and who was recently discharged from the hospital after being admitted for ams and pna and resp failure was doing well 66 year old IDDM F, again admitted with AMS, SOB for admission. On last admission patient had no cellulitits of the legs. This time she has bilateral swelling and cellulitis of the leg she has history of chronic osteomyelitis R heel treated with intravenous abx. She denies F/V/N/C/SOB/CP. Currently afebrile, VSS. 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: Dementia Cardio/Vascular: Yes: HTN, Hyperlipdemia Gastrointestinal: Yes: Constipation Endocrine: Yes: Diabetes Mellitus, Hypothyroidism - Past Surgical History Past Surgical History: Yes: Cholecystectomy, , Hernia Repair - Alcohol/Substance Use Hx Alcohol Use: No History of Substance Use: reports: None - Smoking History Smoking history: Former smoker Have you smoked in the past 12 months: No Aproximately how many cigarettes per day: 0 If you are a former smoker, when did you quit?: 2013 - Social History ADL: Support Services History of Recent Travel: No Home Medications - Allergies Allergies/Adverse Reactions: Allergies Allergy/AdvReac Type Severity Reaction Status Date / Time metoprolol Allergy Intermediate Rash Verified 04/19/17 21:34 - Home Medications Home Medications: Ambulatory Orders Albuterol Sulfate Inhaler - [Ventolin HFA Inhaler -] 2 inh IH Q6H PRN 04/11/16 Acetaminophen [Tylenol .Regular Strength -] 650 mg PO Q4H PRN #0 tablet Miscellaneous Medical Supply [Wound Vac -] 1 each ASDIR #1 unit 09/06/16 Insulin (Levemir) [Levemir Flexpen -] 10 units SQ HS 11/22/16 Lisinopril [Prinivil] 1 tab PO DAILY 11/22/16 Metformin HCl 2 tab PO BID 11/22/16 Nilotinib HCl [Tasigna] 2 cap PO BID 11/22/16 Docusate Sodium [Colace -] 300 mg PO HS 03/14/17 Aspirin [ASA -] 81 mg PO DAILY 04/20/17 Gabapentin 600 mg PO TID 04/20/17 Oxycodone HCl [Roxicodone -] 10 mg PO Q4H PRN MDD 60mg 04/20/17 Arformoterol Tartrate [Brovana -] 1 amp NEB BID amp 04/26/17 Collagenase Clostridium Hist. [Santyl] 1 inch TP DAILY 05/03/17 Insulin Lispro [Humalog] 100 unit SQ PRN 05/03/17 Levothyroxine [Synthroid -] 25 mcg PO DAILY 05/03/17 Torsemide [Demadex -] 40 mg PO BID 05/03/17 Review of Systems - Review of Systems Constitutional: reports: No Symptoms Eyes: reports: No Symptoms HENT: reports: No Symptoms Neck: reports: No Symptoms Cardiovascular: reports: No Symptoms Respiratory: reports: SOB Gastrointestinal: reports: No Symptoms Genitourinary: reports: No Symptoms Musculoskeletal: reports: Muscle Pain, Other Integumentary: reports: Change in Color, Erythema Neurological: reports: Other (ams) Endocrine: reports: No Symptoms Hematology/Lymphatic: reports: No Symptoms Psychiatric: reports: No Symptoms Physical Exam Vital Signs: Vital Signs Temperature 98.4 F 05/04/17 13:35 Pulse Rate 74 05/04/17 13:02 Respiratory Rate 18 05/04/17 13:02 Blood Pressure 153/63 05/04/17 13:02 O2 Sat by Pulse Oximetry (%) 98 05/04/17 10:35 Constitutional: Yes: No Distress, Calm Eyes: Yes: Conjunctiva Clear HENT: Yes: Atraumatic Cardiovascular: Yes: Regular Rate and Rhythm Respiratory: Yes: Regular, On Nasal O2, Poor Air Entry Gastrointestinal: Yes: Normal Bowel Sounds, Soft Musculoskeletal: Yes: Other Extremities: Yes: Erythema, Other (bilateral swelling and erythema with edema of the legs) Edema: LLE: 1+, RLE: 1+ Integumentary: Yes: Erythema, Other Wound/Incision: Yes: Draining, Other Neurological: Yes: Alert, Oriented Psychiatric: Yes: Alert, Oriented Labs: CBC, BMP 05/04/17 06:15 05/04/17 06:15 Imaging - Results Chest X-ray: Report Reviewed, Image Reviewed Cat Scan: Report Reviewed, Image Reviewed Assessment/Plan Problem List - Problems (1) Severe sepsis Code(s): A41.9 - SEPSIS, UNSPECIFIED ORGANISM R65.20 - SEVERE SEPSIS WITHOUT SEPTIC SHOCK (2) Diabetic foot ulcer Code(s): E11.621 - TYPE 2 DIABETES MELLITUS WITH FOOT ULCER L97.509 - NON-PRESSURE CHRONIC ULCER OTH PRT UNSP FOOT W UNSP SEVERITY Qualifiers: Diabetic foot ulcer location: heel Diabetes mellitus type: type 2 Laterality: right Non-pressure ulcer stage: with necrosis of muscle Qualified Code(s): E11.621 - Type 2 diabetes mellitus with foot ulcer; L97.509 - Non-pressure chronic ulcer of other part of unspecified foot with unspecified severity (3) Metabolic encephalopathy Code(s): G93.41 - METABOLIC ENCEPHALOPATHY (4) CML (chronic myelocytic leukemia) Code(s): C92.10 - CHRONIC MYELOID LEUK, BCR/ABL-POSITIVE, NOT ACHIEVE REMIS (5) Diabetes Code(s): E11.9 - TYPE 2 DIABETES MELLITUS WITHOUT COMPLICATIONS (6) CHF (congestive heart failure) Code(s): I50.9 - HEART FAILURE, UNSPECIFIED Qualifiers: Congestive heart failure type: diastolic Congestive heart failure chronicity: chronic Qualified Code(s): I50.32 - Chronic diastolic ( congestive) heart failure (7) COPD (chronic obstructive pulmonary disease) Code(s): J44.9 - CHRONIC OBSTRUCTIVE PULMONARY DISEASE, UNSPECIFIED (8) Hypertension Code(s): I10 - ESSENTIAL (PRIMARY) HYPERTENSION (9) Hypothyroid Code(s): E03.9 - HYPOTHYROIDISM, UNSPECIFIED 10 leukocytosis 11 bilateral cellulitits of the legs her cause of sepsis is probably her legs plan will start her on abx elevation of the legs podiatry to see the patient resp support rest as per primary team
[2017-05-04 15:42] LABS: ALLENS TEST POSITIVE; ART PUNCT SITE LEFT RADIAL; ARTERIAL BLD GAS O2 SATURATION 96.7 % (90-98.9); ARTERIAL BLOOD GAS HCO3 31.4 meq/L (22-26); ARTERIAL BLOOD GAS PO2 79.9 mmHg (80-100); ARTERIAL BLOOD GAS pH 7.52 (7.35-7.45); LPM/O2% 2L; PT. ON O2? YES; TYPE OF O2 NASAL
--- NOTE | 2017-05-04 16:13 | PN ---
Progress Note, Physician Chief Complaint: Ms Hernandez is obtunded but protecting her airway, unable to obtain. - Current Medication List Current Medications: Active Medications Albuterol Sulfate (Ventolin Hfa Inhaler -) 2 puff IH Q6H PRN PRN Reason: SHORT OF BREATH/WHEEZING Aspirin (Asa -) 81 mg PO DAILY [facility] Last Admin: 05/04/17 13:32 Dose: Not Given Gabapentin (Neurontin -) 600 mg PO TID [facility] Heparin Sodium (Porcine) (Heparin -) 5,000 unit SQ TID [facility] Last Admin: 05/04/17 06:30 Dose: 5,000 unit Sodium Chloride (Normal Saline -) 1,000 mls @ 83 mls/hr IV ASDIR [facility] Last Admin: 05/04/17 06:09 Dose: 83 mls/hr Vancomycin HCl 1,250 mg/ (Dextrose) 250 mls @ 166.667 mls/hr IVPB DAILY [facility] PRN Reason: Protocol Piperacillin Sod/Tazobactam (Sod 3.375 gm/ Dextrose) 50 mls @ 100 mls/hr IVPB Q8H-IV [facility] PRN Reason: Protocol Insulin Aspart (Novolog Vial Sliding Scale -) 1 vial SQ ACHS [facility] PRN Reason: Protocol Last Admin: 05/04/17 14:26 Dose: Not Given Insulin Detemir (Levemir Vial) 10 units SQ HS [facility] Levothyroxine Sodium (Synthroid -) 25 mcg PO DAILY@0700 [facility] Last Admin: 05/04/17 08:26 Dose: 25 mcg Lisinopril (Prinivil) 20 mg PO DAILY [facility] Last Admin: 05/04/17 13:33 Dose: Not Given Oxycodone HCl (Roxicodone -) 10 mg PO Q4H PRN PRN Reason: PAIN Torsemide (Demadex -) 40 mg PO BID [facility] Last Admin: 05/04/17 13:32 Dose: Not Given - Objective Vital Signs: Vital Signs Temperature 39.1 C H 05/04/17 15:24 Pulse Rate 74 05/04/17 13:02 Respiratory Rate 18 05/04/17 13:02 Blood Pressure 153/63 05/04/17 13:02 O2 Sat by Pulse Oximetry (%) 98 05/04/17 10:35 Constitutional: Yes: Obese, Other (lethargic) Cardiovascular: Yes: Regular Rate and Rhythm. No: Gallop, Murmur, Rub Respiratory: Yes: Regular, CTA Bilaterally. No: Rales, Rhonchi, Wheezes Gastrointestinal: Yes: Normal Bowel Sounds, Soft. No: Distention, Tenderness Extremities: Yes: Other (R heel wrapped) Edema: No Labs: CBC, BMP 05/04/17 06:15 05/04/17 06:15 INR, PTT INR 1.05 (0.82-1.09) 05/03/17 17:45 Problem List - Problems (1) Severe sepsis Assessment/Plan: -suspect secondary to heel ulcer -ID consulted -on vancomycin and zosyn -monitor for improvement -continue IVF Code(s): A41.9 - SEPSIS, UNSPECIFIED ORGANISM R65.20 - SEVERE SEPSIS WITHOUT SEPTIC SHOCK (2) Diabetic foot ulcer Assessment/Plan: -concern for cause of sepsis -consult Dr Farmer to evaluate -antibiotics as above Code(s): E11.621 - TYPE 2 DIABETES MELLITUS WITH FOOT ULCER L97.509 - NON-PRESSURE CHRONIC ULCER OTH PRT UNSP FOOT W UNSP SEVERITY Qualifiers: Diabetic foot ulcer location: heel Diabetes mellitus type: type 2 Laterality: right Non-pressure ulcer stage: with necrosis of muscle Qualified Code(s): E11.621 - Type 2 diabetes mellitus with foot ulcer; L97.509 - Non-pressure chronic ulcer of other part of unspecified foot with unspecified severity (3) Metabolic encephalopathy Assessment/Plan: -secondary to sepsis -continue antibiotics -hydration Code(s): G93.41 - METABOLIC ENCEPHALOPATHY (4) CML (chronic myelocytic leukemia) Assessment/Plan: -oncology consulted -suspect leukocytosis secondary to sepsis Code(s): C92.10 - CHRONIC MYELOID LEUK, BCR/ABL-POSITIVE, NOT ACHIEVE REMIS (5) Diabetes Assessment/Plan: -diabetic diet -continue levemir -FSBS and SSI Code(s): E11.9 - TYPE 2 DIABETES MELLITUS WITHOUT COMPLICATIONS (6) CHF (congestive heart failure) Assessment/Plan: -does not appear in exacerbation -hold torsemide currently -hydration while septic -can restart once improved Code(s): I50.9 - HEART FAILURE, UNSPECIFIED Qualifiers: Congestive heart failure type: diastolic Congestive heart failure chronicity: chronic Qualified Code(s): I50.32 - Chronic diastolic ( congestive) heart failure (7) COPD (chronic obstructive pulmonary disease) Assessment/Plan: -not in exacerbation -continue home regimen Code(s): J44.9 - CHRONIC OBSTRUCTIVE PULMONARY DISEASE, UNSPECIFIED (8) Hypertension Assessment/Plan: -continue lisinopril Code(s): I10 - ESSENTIAL (PRIMARY) HYPERTENSION (9) Hypothyroid Assessment/Plan: -continue synthroid Code(s): E03.9 - HYPOTHYROIDISM, UNSPECIFIED
[2017-05-04] MEDS ORDERED: PIPERACILLIN/TAZOBACTAM 3.375 GM VIAL IVPB ONE (17:29)
[2017-05-04] MEDS ORDERED: DEXTROSE 5%-WATER - 50 ML IVPB ONE (17:30)
[2017-05-04] MEDS: ACETAMINOPHEN 1000 MG/100 ML VIAL (NON FORMULARY) IVPB ONE ×2 (18:12→18:27)
[2017-05-04] MEDS ORDERED: ACETAMINOPHEN 1000 MG/100 ML VIAL (NON FORMULARY) IVPB ONE (18:15)
[2017-05-04] MEDS: GABAPENTIN 300 MG CAPSULE (FP) PO SCH ×2 (18:20→23:13)
[2017-05-04] MEDS: VANCOMYCIN 1,250 MG in DEXTROSE 5%-WATER - 250 ML IVPB SCH (18:59)
--- NOTE | 2017-05-04 21:46 | CONSULT ---
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 Was unable to give detailed history this am, as she was febrile to 102 and slightly lethargic Sister came by later and reported that she had seen pt at 8pm last night and pt was completely normal (ate a full dinner and was laughing with sister). Sister reports that pt was in Physical Therapy this morning when she started shaking and having SOB (per [facility] staff). Sister also endorses that pt is acutely confused compared to baseline, showing AMS. d - Past Medical History CML--diagnosed 5yrs. ago Treated at [facility] On nilotinib HTN hypothyroid DM hypercholesterolemia Rt. leg wound PSH cholecystectomy Allergies/Adverse Reactions: Allergies Allergy/AdvReac Type Severity Reaction Status Date / Time metoprolol Allergy Intermediate Rash Verified 04/19/17 21:34 Home Medications: Ambulatory Orders Albuterol Sulfate Inhaler - [Ventolin HFA Inhaler -] 2 inh IH Q6H PRN 04/11/16 Acetaminophen [Tylenol .Regular Strength -] 650 mg PO Q4H PRN #0 tablet Miscellaneous Medical Supply [Wound Vac -] 1 each ASDIR #1 unit 09/06/16 Insulin (Levemir) [Levemir Flexpen -] 10 units SQ HS 11/22/16 Lisinopril [Prinivil] 1 tab PO DAILY 11/22/16 Metformin HCl 2 tab PO BID 11/22/16 Nilotinib HCl [Tasigna] 2 cap PO BID 11/22/16 Docusate Sodium [Colace -] 300 mg PO HS 03/14/17 Aspirin [ASA -] 81 mg PO DAILY 04/20/17 Gabapentin 600 mg PO TID 04/20/17 Oxycodone HCl [Roxicodone -] 10 mg PO Q4H PRN MDD 60mg 04/20/17 Arformoterol Tartrate [Brovana -] 1 amp NEB BID amp 04/26/17 Collagenase Clostridium Hist. [Santyl] 1 inch TP DAILY 05/03/17 Insulin Lispro [Humalog] 100 unit SQ PRN 05/03/17 Levothyroxine [Synthroid -] 25 mcg PO DAILY 05/03/17 Torsemide [Demadex -] 40 mg PO BID 08/30/17 *Physical Exam - Vital Signs Febrile 102 VSS - Physical Exam General Appearance: Yes: Nourished. HEENT: positive: EOMI, NELLY, Normal ENT Inspection. negative: Pale Conjunctivae , Scleral Icterus (R), Scleral Icterus (L) Neck: positive: Trachea midline, Normal Thyroid, Supple Respiratory/Chest: positive: Lungs Clear. negative: Accessory Muscle Use, Stridor, Wheezing Cardiovascular: positive: Regular Rhythm, S1, S2. negative: Edema, Murmur Gastrointestinal/Abdominal: negative: Tender, Distended, Guarding, Rebound Extremity: positive: Pedal Edema, Swelling Integumentary: positive: Dry, Warm Neurologic: positive: process steward II-XII NML intact, Other (lethargic, responded 'no' to most of my questions, but could occasionally and briefly focus on short questions). 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 Pt found to have severe sepsis (leukocyte count 24.4, fever 102F, tachycardia 102, plus lactic acidosis of 2.5) with AMS. Source? diabetic foot ulcer/cellulitis CML --[place] [id number] On nilotinib PResumable in good remission LEukocytosis due to infection will check pcr;for bcr;abl to assess molecular remission status
[2017-05-04] MEDS: PIPERACILLIN/TAZOB 3.375 GM 3.375 GM in DEXTROSE 5%-WATER - 50 ML IVPB SCH (23:11)
[2017-05-04] MEDS ORDERED: INSULIN (NOVOLOG) ASPART 100 UNITS/ML 10ML VIAL ONE (23:19)
[2017-05-04] MEDS: INSULIN DETEMIR 100 UNITS/ML MDV SQ SCH (23:20)
[2017-05-05] MEDS ORDERED: PIPERACILLIN/TAZOBACTAM 3.375 GM VIAL IVPB ONE ×3 (01:12→18:04)
[2017-05-05] MEDS ORDERED: DEXTROSE 5%-WATER - 50 ML IVPB ONE ×3 (01:12→18:04)
[2017-05-05] MEDS: oxyCODONE HCL 5 MG TABLET PO PRN ×2 (03:12→18:08)
[2017-05-05] MEDS: PIPERACILLIN/TAZOB 3.375 GM 3.375 GM in DEXTROSE 5%-WATER - 50 ML IVPB SCH ×3 (03:13→20:07)
[2017-05-05] MEDS: GABAPENTIN 300 MG CAPSULE (FP) PO SCH ×3 (06:10→22:05)
[2017-05-05] MEDS: HEPARIN NA (PORCINE) 5,000 UNITS/ML 1ML VIAL SQ SCH ×3 (06:11→22:06)
[2017-05-05] MEDS: LEVOTHYROXINE NA 25 MCG TABLET (FP) PO SCH (06:15)
[2017-05-05] MEDS: INSULIN SLIDING SCALE (NOVOLOG) 1 VIAL SQ SCH ×4 (06:15→22:06)
[2017-05-05] MEDS ORDERED: INSULIN (NOVOLOG) ASPART 100 UNITS/ML 10ML VIAL ONE (06:48)
[2017-05-05] MEDS ORDERED: INSULIN DETEMIR 100 UNITS/ML MDV SQ ONE (06:48)
[2017-05-05 07:25] LABS: BASOPHIL 0.3 % (0-2.0); EOSINOPHIL 0.4 % (0-4.5); MCH 28.5 pg (25.7-33.7); MCHC 32.1 g/dl (32.0-36.0); MEAN CELL VOLUME 88.9 fl (80-96); MEAN PLT VOLUME 8.3 fl (7.5-11.1); NEUTROPHILS 88.6 % (42.8-82.8); PLATELET COUNT 138 K/MM3 (134-434); RDW 17.2 % (11.6-15.6); WHITE BLOOD COUNT 11.7 K/mm3 (4.0-10.0)
--- NOTE | 2017-05-05 07:58 | CONSULT ---
Consult - text type - Consultation Consultation Note: Podiatry Consultation: 66 year old IDDM F, well known to me from wound care, presents with AMS, SOB for admission. Patient on wound VAC therapy from SNF, history of chronic osteomyelitis R heel treated with intravenous abx. She denies F/V/N/C/SOB/CP. Currently afebrile, VSS. PMHx: IDDM, HTN, HLP, CML on chemotherapeutics, COPD, hypothyroid Meds: noted in chart ALL: metoprolol MELANI: R foot: pedal pulses 1/4, TG warm-warmer RLE, CFT brisk to all toes. There is an inferior heel ulcer with mixed fibrogranular base, mostly granular base, medial aspect of wound probes deep, mild serous drainage, no purulence, no fluctuance, no soft tissue crepitus, no signs of active infection. There is ascending cellulitis to the RLE, mostly notably at the posterior calf. There is moderate tenderness to palpation of the calf. WBC: 11.7 Blood Cx: no growth x 24 hrs Imp: 66 year old DM F with R heel ulcer, chronic osteomyelitis 1. IV abx per ID 2. Local wound care Rx for santyl 3. Heel offloading measures 4. Recommend MRI R foot to assess for progression of chronic osteomyelitis. If so, will need further surgery for bone debridement. 5. Recommend venous duplex RLE 6. Thank you for the consult. Michaela Farmer DPM
[2017-05-05 08:01] LABS: ANION GAP 7 (8-16); CO2 32 mmol/L (21-32); CREATININE 0.6 mg/dL (0.55-1.02); GLUCOSE,RANDOM 149 mg/dL (74-106); PHOSPHOROUS 2.9 mg/dL (2.5-4.9)
--- NOTE | 2017-05-05 09:12 | PN ---
History of Present Illness: More alert and responsive . No recollection from yesterday. - Review of Systems Constitutional: reports: Fever, Lethargy, Loss of Appetite, Malaise, Weakness Eyes: denies: Blurred Vision, Double Vision HENT: denies: Difficult Swallowing Neck: denies: Decreased ROM, Stiffness Cardiovascular: reports: Shortness of Breath. denies: Chest Pain Respiratory: reports: SOB, SOB on Exertion Gastrointestinal: denies: Diarrhea, Nausea, Vomiting Genitourinary: denies: Dysuria, Flank Pain, Frequency Breasts: reports: No Symptoms Reported Musculoskeletal: reports: Muscle Weakness Integumentary: reports: Erythema, Other (LE stasis) Endocrine: reports: No Symptoms Hematology/Lymphatic: denies: Excessive Bleeding, Swollen Glands Psychiatric: reports: No Symptoms - Medications/Allergies Allergies/Adverse Reactions: Allergies Allergy/AdvReac Type Severity Reaction Status Date / Time metoprolol Allergy Intermediate Rash Verified 04/19/17 21:34 Medications: Current Medications Acetaminophen (Tylenol -) 650 mg PO Q6H PRN PRN Reason: FEVER OR PAIN Albuterol Sulfate (Ventolin Hfa Inhaler -) 2 puff IH Q6H PRN PRN Reason: SHORT OF BREATH/WHEEZING Aspirin (Asa -) 81 mg PO DAILY [facility] Last Admin: 05/04/17 13:32 Dose: Not Given Collagenase (Santyl -) 1 applic TP DAILY [facility] Gabapentin (Neurontin -) 600 mg PO TID [facility] Last Admin: 05/05/17 06:10 Dose: 600 mg Heparin Sodium (Porcine) (Heparin -) 5,000 unit SQ TID [facility] Last Admin: 05/05/17 06:11 Dose: 5,000 unit Sodium Chloride (Normal Saline -) 1,000 mls @ 83 mls/hr IV ASDIR [facility] Last Admin: 05/04/17 19:00 Dose: 83 mls/hr Vancomycin HCl 1,250 mg/ (Dextrose) 250 mls @ 166.667 mls/hr IVPB DAILY [facility] PRN Reason: Protocol Last Admin: 05/04/17 18:59 Dose: 166.667 mls/hr Piperacillin Sod/Tazobactam (Sod 3.375 gm/ Dextrose) 50 mls @ 100 mls/hr IVPB Q8H-IV [facility] PRN Reason: Protocol Last Admin: 05/05/17 03:13 Dose: 100 mls/hr Insulin Aspart (Novolog Vial Sliding Scale -) 1 vial SQ ACHS [facility] PRN Reason: Protocol Last Admin: 05/05/17 06:15 Dose: Not Given Insulin Detemir (Levemir Vial) 10 units SQ HS [facility] Last Admin: 05/04/17 23:20 Dose: 10 unit Levothyroxine Sodium (Synthroid -) 25 mcg PO DAILY@0700 [facility] Last Admin: 05/05/17 06:15 Dose: 25 mcg Lisinopril (Prinivil) 20 mg PO DAILY [facility] Last Admin: 05/04/17 13:33 Dose: Not Given Oxycodone HCl (Roxicodone -) 10 mg PO Q4H PRN PRN Reason: PAIN Last Admin: 05/05/17 03:12 Dose: 10 mg - Objective Vital Signs: Vital Signs Temperature 98.4 F 05/05/17 06:00 Pulse Rate 80 05/05/17 06:00 Respiratory Rate 18 05/05/17 06:00 Blood Pressure 159/75 05/05/17 06:00 O2 Sat by Pulse Oximetry (%) 98 05/04/17 22:00 Constitutional: Yes: Mild Distress Eyes: Yes: PERRL. No: Ptosis, Sclera Icterus HENT: Yes: Atraumatic, Normocephalic, Other (dry mucous membranes). No: Hoarseness, Thrush Neck: Yes: Supple Cardiovascular: Yes: Regular Rate and Rhythm Respiratory: Yes: Diminished Gastrointestinal: Yes: Normal Bowel Sounds, Soft, Abdomen, Obese Genitourinary: No: CVA Tenderness - Left, CVA Tenderness - Right Musculoskeletal: Yes: Muscle Weakness Extremities: Yes: Other (stasis , lymphedema) Edema: LLE: 4+, RLE: 4+ Integumentary: Yes: Erythema, Venous Stasis Changes Neurological: Yes: Lethargy ...Motor Strength: WNL Psychiatric: Yes: WNL Labs: CBC, BMP 05/05/17 06:00 05/05/17 06:00 Problem List - Problems (1) CML (chronic myelocytic leukemia) Assessment/Plan: Followed at [facility] clinic . States she has been in remission on Nilotinib. Will need to resume when available 300 mg p.o. BID pending CBC and sepsis status. BCR-ABL by PCR to assess ?molecular remission . Code(s): C92.10 - CHRONIC MYELOID LEUK, BCR/ABL-POSITIVE, NOT ACHIEVE REMIS (2) Severe sepsis Assessment/Plan: Improvement in clinical status. Antibiotics per I.D. Source ?? osteo ?? other/Await cultures. Code(s): A41.9 - SEPSIS, UNSPECIFIED ORGANISM R65.20 - SEVERE SEPSIS WITHOUT SEPTIC SHOCK (3) Metabolic encephalopathy Assessment/Plan: Still lethargic, but improved mentation. Code(s): G93.41 - METABOLIC ENCEPHALOPATHY (4) Heel ulcer due to DM Assessment/Plan: Osteo right heel --for MRI. Code(s): E11.621 - TYPE 2 DIABETES MELLITUS WITH FOOT ULCER L97.409 - NON-PRS CHRONIC ULCER OF UNSP HEEL AND MIDFOOT W UNSP SEVERT (5) Thrombocytopenia Assessment/Plan: ?? seecondary to sepsis, On heparin day 3 - somewhat early for HIT, but will get antibody studies. Code(s): D69.6 - THROMBOCYTOPENIA, UNSPECIFIED
[2017-05-05] MEDS: COLLAGENASE CLOSTRIDIUM HIST. 30 GRAMS TUBE TP SCH (09:46)
[2017-05-05] MEDS: LISINOPRIL 20 MG TABLET (FP) PO SCH (09:46)
[2017-05-05] MEDS: ASPIRIN 81 MG CHEWABLE TABLETS PO SCH (09:46)
[2017-05-05] MEDS: VANCOMYCIN 1,250 MG in DEXTROSE 5%-WATER - 250 ML IVPB SCH (11:11)
--- NOTE | 2017-05-05 14:41 | PN ---
Progress Note, Physician History of Present Illness: patient stable says she feels much better than yesterday podiatry has seen the patient - Current Medication List Current Medications: Active Medications Acetaminophen (Tylenol -) 650 mg PO Q6H PRN PRN Reason: FEVER OR PAIN Albuterol Sulfate (Ventolin Hfa Inhaler -) 2 puff IH Q6H PRN PRN Reason: SHORT OF BREATH/WHEEZING Aspirin (Asa -) 81 mg PO DAILY [facility] Last Admin: 05/05/17 09:46 Dose: 81 mg Collagenase (Santyl -) 1 applic TP DAILY [facility] Last Admin: 05/05/17 09:46 Dose: 1 applic Gabapentin (Neurontin -) 600 mg PO TID [facility] Last Admin: 05/05/17 06:10 Dose: 600 mg Heparin Sodium (Porcine) (Heparin -) 5,000 unit SQ TID [facility] Last Admin: 05/05/17 06:11 Dose: 5,000 unit Sodium Chloride (Normal Saline -) 1,000 mls @ 83 mls/hr IV ASDIR [facility] Last Admin: 05/04/17 19:00 Dose: 83 mls/hr Vancomycin HCl 1,250 mg/ (Dextrose) 250 mls @ 166.667 mls/hr IVPB DAILY [facility] PRN Reason: Protocol Last Admin: 05/05/17 11:11 Dose: 166.667 mls/hr Piperacillin Sod/Tazobactam (Sod 3.375 gm/ Dextrose) 50 mls @ 100 mls/hr IVPB Q8H-IV [facility] PRN Reason: Protocol Last Admin: 05/05/17 09:46 Dose: 100 mls/hr Insulin Aspart (Novolog Vial Sliding Scale -) 1 vial SQ ACHS [facility] PRN Reason: Protocol Last Admin: 05/05/17 14:40 Dose: Not Given Insulin Detemir (Levemir Vial) 10 units SQ HS [facility] Last Admin: 05/04/17 23:20 Dose: 10 unit Levothyroxine Sodium (Synthroid -) 25 mcg PO DAILY@0700 [facility] Last Admin: 05/05/17 06:15 Dose: 25 mcg Lisinopril (Prinivil) 20 mg PO DAILY [facility] Last Admin: 05/05/17 09:46 Dose: 20 mg Oxycodone HCl (Roxicodone -) 10 mg PO Q4H PRN PRN Reason: PAIN Last Admin: 05/05/17 03:12 Dose: 10 mg - Objective Vital Signs: Vital Signs Temperature 98.4 F 05/05/17 06:00 Pulse Rate 66 05/05/17 14:02 Respiratory Rate 18 05/05/17 14:02 Blood Pressure 113/63 05/05/17 14:02 O2 Sat by Pulse Oximetry (%) 98 05/04/17 22:00 Constitutional: Yes: No Distress, Calm Cardiovascular: Yes: Regular Rate and Rhythm Respiratory: Yes: Regular, CTA Bilaterally Gastrointestinal: Yes: Normal Bowel Sounds, Soft Musculoskeletal: Yes: Other Extremities: Yes: Other Edema: LLE: 1+, RLE: 1+ Integumentary: Yes: Erythema Wound/Incision: Yes: Dressing Dry and Intact Neurological: Yes: Alert Psychiatric: Yes: Alert Labs: CBC, BMP 05/05/17 06:00 05/05/17 06:00 INR, PTT INR 1.05 (0.82-1.09) 05/03/17 17:45 Assessment/Plan Problem List - Problems (1) Severe sepsis Code(s): A41.9 - SEPSIS, UNSPECIFIED ORGANISM R65.20 - SEVERE SEPSIS WITHOUT SEPTIC SHOCK (2) Diabetic foot ulcer Code(s): E11.621 - TYPE 2 DIABETES MELLITUS WITH FOOT ULCER L97.509 - NON-PRESSURE CHRONIC ULCER OTH PRT UNSP FOOT W UNSP SEVERITY Qualifiers: Diabetic foot ulcer location: heel Diabetes mellitus type: type 2 Laterality: right Non-pressure ulcer stage: with necrosis of muscle Qualified Code(s): E11.621 - Type 2 diabetes mellitus with foot ulcer; L97.509 - Non-pressure chronic ulcer of other part of unspecified foot with unspecified severity (3) Metabolic encephalopathy Code(s): G93.41 - METABOLIC ENCEPHALOPATHY (4) CML (chronic myelocytic leukemia) Code(s): C92.10 - CHRONIC MYELOID LEUK, BCR/ABL-POSITIVE, NOT ACHIEVE REMIS (5) Diabetes Code(s): E11.9 - TYPE 2 DIABETES MELLITUS WITHOUT COMPLICATIONS (6) CHF (congestive heart failure) Code(s): I50.9 - HEART FAILURE, UNSPECIFIED Qualifiers: Congestive heart failure type: diastolic Congestive heart failure chronicity: chronic Qualified Code(s): I50.32 - Chronic diastolic ( congestive) heart failure (7) COPD (chronic obstructive pulmonary disease) Code(s): J44.9 - CHRONIC OBSTRUCTIVE PULMONARY DISEASE, UNSPECIFIED (8) Hypertension Code(s): I10 - ESSENTIAL (PRIMARY) HYPERTENSION (9) Hypothyroid Code(s): E03.9 - HYPOTHYROIDISM, UNSPECIFIED 10 leukocytosis 11 bilateral cellulitits of the legs her cause of sepsis is probably her legs plan continue abx await for mri wound care once we have everything then will decide might need biopsy we will see
[2017-05-05] MEDS: SODIUM CHLORIDE 1,000 ML IV SCH (15:27)
[2017-05-05] MEDS ORDERED: POTASSIUM CHLORIDE TABS 20 MEQ TABLET.ER (FP) PO ONE (15:58)
--- NOTE | 2017-05-05 16:00 | PN ---
Progress Note, Physician Chief Complaint: Ms Hernandez says she is feeling better than yesterday. Having pain in her foot. No cp, sob, n/v. - Current Medication List Current Medications: Active Medications Acetaminophen (Tylenol -) 650 mg PO Q6H PRN PRN Reason: FEVER OR PAIN Albuterol Sulfate (Ventolin Hfa Inhaler -) 2 puff IH Q6H PRN PRN Reason: SHORT OF BREATH/WHEEZING Aspirin (Asa -) 81 mg PO DAILY [facility] Last Admin: 05/05/17 09:46 Dose: 81 mg Collagenase (Santyl -) 1 applic TP DAILY [facility] Last Admin: 05/05/17 09:46 Dose: 1 applic Gabapentin (Neurontin -) 600 mg PO TID [facility] Last Admin: 05/05/17 15:23 Dose: 600 mg Heparin Sodium (Porcine) (Heparin -) 5,000 unit SQ TID [facility] Last Admin: 05/05/17 15:23 Dose: 5,000 unit Sodium Chloride (Normal Saline -) 1,000 mls @ 83 mls/hr IV ASDIR [facility] Last Admin: 05/05/17 15:27 Dose: 83 mls/hr Vancomycin HCl 1,250 mg/ (Dextrose) 250 mls @ 166.667 mls/hr IVPB DAILY [facility] PRN Reason: Protocol Last Admin: 05/05/17 11:11 Dose: 166.667 mls/hr Piperacillin Sod/Tazobactam (Sod 3.375 gm/ Dextrose) 50 mls @ 100 mls/hr IVPB Q8H-IV [facility] PRN Reason: Protocol Last Admin: 05/05/17 09:46 Dose: 100 mls/hr Insulin Aspart (Novolog Vial Sliding Scale -) 1 vial SQ ACHS [facility] PRN Reason: Protocol Last Admin: 05/05/17 14:40 Dose: Not Given Insulin Detemir (Levemir Vial) 10 units SQ HS [facility] Last Admin: 05/04/17 23:20 Dose: 10 unit Levothyroxine Sodium (Synthroid -) 25 mcg PO DAILY@0700 [facility] Last Admin: 05/05/17 06:15 Dose: 25 mcg Lisinopril (Prinivil) 20 mg PO DAILY [facility] Last Admin: 05/05/17 09:46 Dose: 20 mg Oxycodone HCl (Roxicodone -) 10 mg PO Q4H PRN PRN Reason: PAIN Last Admin: 05/05/17 03:12 Dose: 10 mg Potassium Chloride (K-Dur -) 40 meq PO ONCE ONE Stop: 05/05/17 15:59 - Objective Vital Signs: Vital Signs Temperature 37.4 C 05/05/17 14:02 Pulse Rate 66 05/05/17 14:02 Respiratory Rate 18 05/05/17 14:02 Blood Pressure 113/63 05/05/17 14:02 O2 Sat by Pulse Oximetry (%) 98 05/04/17 22:00 Constitutional: Yes: No Distress, Calm, Obese Cardiovascular: Yes: Regular Rate and Rhythm. No: Gallop, Murmur, Rub Respiratory: Yes: Regular, CTA Bilaterally. No: Rales, Rhonchi, Wheezes Gastrointestinal: Yes: Normal Bowel Sounds, Soft. No: Distention, Tenderness Extremities: Yes: Other (R heel wrapped) Edema: No Labs: CBC, BMP 05/05/17 06:00 05/05/17 06:00 INR, PTT INR 1.05 (0.82-1.09) 05/03/17 17:45 Problem List - Problems (1) Severe sepsis Code(s): A41.9 - SEPSIS, UNSPECIFIED ORGANISM R65.20 - SEVERE SEPSIS WITHOUT SEPTIC SHOCK (2) Diabetic foot ulcer Code(s): E11.621 - TYPE 2 DIABETES MELLITUS WITH FOOT ULCER L97.509 - NON-PRESSURE CHRONIC ULCER OTH PRT UNSP FOOT W UNSP SEVERITY Qualifiers: Diabetic foot ulcer location: heel Diabetes mellitus type: type 2 Laterality: right Non-pressure ulcer stage: with necrosis of muscle Qualified Code(s): E11.621 - Type 2 diabetes mellitus with foot ulcer; L97.509 - Non-pressure chronic ulcer of other part of unspecified foot with unspecified severity (3) Metabolic encephalopathy Code(s): G93.41 - METABOLIC ENCEPHALOPATHY (4) CML (chronic myelocytic leukemia) Code(s): C92.10 - CHRONIC MYELOID LEUK, BCR/ABL-POSITIVE, NOT ACHIEVE REMIS (5) Diabetes Code(s): E11.9 - TYPE 2 DIABETES MELLITUS WITHOUT COMPLICATIONS (6) CHF (congestive heart failure) Code(s): I50.9 - HEART FAILURE, UNSPECIFIED Qualifiers: Congestive heart failure type: diastolic Congestive heart failure chronicity: chronic Qualified Code(s): I50.32 - Chronic diastolic ( congestive) heart failure (7) COPD (chronic obstructive pulmonary disease) Code(s): J44.9 - CHRONIC OBSTRUCTIVE PULMONARY DISEASE, UNSPECIFIED (8) Hypertension Code(s): I10 - ESSENTIAL (PRIMARY) HYPERTENSION (9) Hypothyroid Code(s): E03.9 - HYPOTHYROIDISM, UNSPECIFIED Assessment/Plan (1) Severe sepsis Assessment/Plan: -improving -ID following -continue vancomycin and zosyn Code(s): A41.9 - SEPSIS, UNSPECIFIED ORGANISM R65.20 - SEVERE SEPSIS WITHOUT SEPTIC SHOCK (2) Diabetic foot ulcer Assessment/Plan: -appreciate Dr Farmer's assistance -MRI pending for possible osteomyelitis -continue antibiotics as above Code(s): E11.621 - TYPE 2 DIABETES MELLITUS WITH FOOT ULCER L97.509 - NON-PRESSURE CHRONIC ULCER OTH PRT UNSP FOOT W UNSP SEVERITY Qualifiers: Diabetic foot ulcer location: heel Diabetes mellitus type: type 2 Laterality: right Non-pressure ulcer stage: with necrosis of muscle Qualified Code(s): E11.621 - Type 2 diabetes mellitus with foot ulcer; L97.509 - Non-pressure chronic ulcer of other part of unspecified foot with unspecified severity (3) Metabolic encephalopathy Assessment/Plan: -resolved Code(s): G93.41 - METABOLIC ENCEPHALOPATHY (4) CML (chronic myelocytic leukemia) Assessment/Plan: -oncology followig Code(s): C92.10 - CHRONIC MYELOID LEUK, BCR/ABL-POSITIVE, NOT ACHIEVE REMIS (5) Diabetes Assessment/Plan: -diabetic diet -continue levemir -FSBS and SSI Code(s): E11.9 - TYPE 2 DIABETES MELLITUS WITHOUT COMPLICATIONS (6) CHF (congestive heart failure) Assessment/Plan: -continue hydration today -evaluate tomorrow to see if IVF should be stopped and torsemide restarted Code(s): I50.9 - HEART FAILURE, UNSPECIFIED Qualifiers: Congestive heart failure type: diastolic Congestive heart failure chronicity: chronic Qualified Code(s): I50.32 - Chronic diastolic ( congestive) heart failure (7) COPD (chronic obstructive pulmonary disease) Assessment/Plan: -not in exacerbation -continue home regimen Code(s): J44.9 - CHRONIC OBSTRUCTIVE PULMONARY DISEASE, UNSPECIFIED (8) Hypertension Assessment/Plan: -continue lisinopril Code(s): I10 - ESSENTIAL (PRIMARY) HYPERTENSION (9) Hypothyroid Assessment/Plan: -continue synthroid Code(s): E03.9 - HYPOTHYROIDISM, UNSPECIFIED
[2017-05-05] MEDS: INSULIN DETEMIR 100 UNITS/ML MDV SQ SCH (22:06)
[2017-05-06] MEDS ORDERED: PIPERACILLIN/TAZOBACTAM 3.375 GM VIAL IVPB ONE ×3 (02:12→17:29)
[2017-05-06] MEDS ORDERED: DEXTROSE 5%-WATER - 50 ML IVPB ONE ×3 (02:13→17:30)
[2017-05-06] MEDS: PIPERACILLIN/TAZOB 3.375 GM 3.375 GM in DEXTROSE 5%-WATER - 50 ML IVPB SCH ×3 (02:16→17:37)
[2017-05-06] MEDS: oxyCODONE HCL 5 MG TABLET PO PRN ×4 (03:44→21:17)
[2017-05-06] MEDS: SODIUM CHLORIDE 1,000 ML IV SCH ×3 (05:37→22:33)
[2017-05-06] MEDS: INSULIN SLIDING SCALE (NOVOLOG) 1 VIAL SQ SCH ×4 (06:30→21:26)
[2017-05-06] MEDS: GABAPENTIN 300 MG CAPSULE (FP) PO SCH ×3 (06:55→21:15)
[2017-05-06] MEDS: LEVOTHYROXINE NA 25 MCG TABLET (FP) PO SCH (06:55)
[2017-05-06] MEDS: HEPARIN NA (PORCINE) 5,000 UNITS/ML 1ML VIAL SQ SCH ×4 (06:56→22:00)
[2017-05-06 08:17] LABS: BASOPHIL 0.3 % (0-2.0); EOSINOPHIL 2.3 % (0-4.5); MCH 28.7 pg (25.7-33.7); MCHC 32.1 g/dl (32.0-36.0); MEAN CELL VOLUME 89.7 fl (80-96); MEAN PLT VOLUME 8.6 fl (7.5-11.1); NEUTROPHILS 78.8 % (42.8-82.8); PLATELET COUNT 135 K/MM3 (134-434); RDW 17.3 % (11.6-15.6); WHITE BLOOD COUNT 6.7 K/mm3 (4.0-10.0)
[2017-05-06 08:53] LABS: CALCIUM 7.7 mg/dL (8.5-10.1)
[2017-05-06 08:59] LABS: ALK PHOS 110 U/L (45-117); ANION GAP 8 (8-16); BILIRUBIN,TOTAL 0.5 mg/dL (0.2-1.0); CO2 29 mmol/L (21-32); CREATININE 0.7 mg/dL (0.55-1.02); GLUCOSE,RANDOM 96 mg/dL (74-106); SGOT/AST 29 U/L (15-37); SGPT/ALT 34 U/L (12-78); TOT PROT 6.3 g/dl (6.4-8.2)
--- NOTE | 2017-05-06 09:24 | PN ---
Progress Note, Physician History of Present Illness: Notes some pain in foot, otherwise feeling OK. - Current Medication List Current Medications: Active Medications Acetaminophen (Tylenol -) 650 mg PO Q6H PRN PRN Reason: FEVER OR PAIN Albuterol Sulfate (Ventolin Hfa Inhaler -) 2 puff IH Q6H PRN PRN Reason: SHORT OF BREATH/WHEEZING Aspirin (Asa -) 81 mg PO DAILY [facility] Last Admin: 05/05/17 09:46 Dose: 81 mg Collagenase (Santyl -) 1 applic TP DAILY [facility] Last Admin: 05/05/17 09:46 Dose: 1 applic Gabapentin (Neurontin -) 600 mg PO TID [facility] Last Admin: 05/06/17 06:55 Dose: 600 mg Heparin Sodium (Porcine) (Heparin -) 5,000 unit SQ TID [facility] Last Admin: 05/06/17 06:56 Dose: 5,000 unit Sodium Chloride (Normal Saline -) 1,000 mls @ 83 mls/hr IV ASDIR [facility] Last Admin: 05/06/17 06:54 Dose: 83 mls/hr Vancomycin HCl 1,250 mg/ (Dextrose) 250 mls @ 166.667 mls/hr IVPB DAILY [facility] PRN Reason: Protocol Last Admin: 05/05/17 11:11 Dose: 166.667 mls/hr Piperacillin Sod/Tazobactam (Sod 3.375 gm/ Dextrose) 50 mls @ 100 mls/hr IVPB Q8H-IV [facility] PRN Reason: Protocol Last Admin: 05/06/17 02:16 Dose: 100 mls/hr Insulin Aspart (Novolog Vial Sliding Scale -) 1 vial SQ ACHS [facility] PRN Reason: Protocol Last Admin: 05/06/17 06:30 Dose: Not Given Insulin Detemir (Levemir Vial) 10 units SQ HS [facility] Last Admin: 05/05/17 22:06 Dose: 10 unit Levothyroxine Sodium (Synthroid -) 25 mcg PO DAILY@0700 [facility] Last Admin: 05/06/17 06:55 Dose: 25 mcg Lisinopril (Prinivil) 20 mg PO DAILY [facility] Last Admin: 05/05/17 09:46 Dose: 20 mg Oxycodone HCl (Roxicodone -) 10 mg PO Q4H PRN PRN Reason: PAIN Last Admin: 05/06/17 03:44 Dose: 10 mg - Objective Vital Signs: Vital Signs Temperature 99.4 F 05/06/17 05:00 Pulse Rate 63 05/06/17 05:00 Respiratory Rate 20 05/06/17 05:00 Blood Pressure 135/65 05/06/17 05:00 O2 Sat by Pulse Oximetry (%) 98 05/05/17 21:00 Constitutional: Yes: No Distress, Calm Cardiovascular: Yes: Regular Rate and Rhythm, S1, S2. No: Murmur Respiratory: Yes: Regular, CTA Bilaterally. No: Rales, Rhonchi, Wheezes Gastrointestinal: Yes: Normal Bowel Sounds, Soft, Abdomen, Obese. No: Distention, Tenderness Extremities: Yes: Other (right foot with dressing) Edema: Yes Edema: LLE: 3+, RLE: 3+ Labs: CBC, BMP 05/06/17 06:05 05/06/17 06:05 INR, PTT INR 1.05 (0.82-1.09) 05/03/17 17:45 Assessment/Plan Current Active Problems Altered mental status (Acute) CML (chronic myelocytic leukemia) (Acute) Diabetes (Acute) Electrolyte abnormality (Acute) Metabolic encephalopathy (Acute) Severe sepsis (Acute) Thrombocytopenia (Acute) Osteomyelitis -cont on abx -will likely need further surgical debridement on right heel due to osteomyelitis
[2017-05-06] MEDS ORDERED: PT OWN MED DRAWER 7, Y5N ONE ×2 (10:09→17:33)
[2017-05-06] MEDS: VANCOMYCIN 1,250 MG in DEXTROSE 5%-WATER - 250 ML IVPB SCH (10:15)
[2017-05-06] MEDS: LISINOPRIL 20 MG TABLET (FP) PO SCH (10:16)
[2017-05-06] MEDS: ASPIRIN 81 MG CHEWABLE TABLETS PO SCH (10:16)
--- NOTE | 2017-05-06 12:13 | PN ---
Progress Note (short form) - Note Progress Note: Podiatry: Seen/evaluated at bedside, NAD. Pain controlled, denies F/V/N/C/SOB/CP. Patient notes improvement in pain to legs. Afebrile, VSS> MELANI: R foot: pedal pulses 1/4, TG warm, CFT brisk to all toes. Inferior heel DM ulcer with mixed fibrogranular base, mostly granular, medial aspect of wound probes deep, no purulence, no fluctuance, no soft tissue crepitus, no acute signs of infection. Minimal tenderness to palpation. WBC: 6.7 Blood Cx: no growth x 48 hrs Wound Cx: pending MRI R foot: chronic osteomyelitis calcaneus Imp: 66 year old IDDM F with chronic osteomyelitis and R heel ulcer 1. C/w IV abx per ID 2. Reviewed MRI with patient. Will need bone debridement, biopsy and ulcer debridement/lavage Monday. 3. Patient wants to think about surgery for now. She expresses concerns over quality of life and has though about limb amputation, and I advised her we are trying everything to save the foot. 4. Will likely need further IV abx treatment. 5. Continue local wound care 6. Will follow Michaela Farmer DPM
[2017-05-06] MEDS ORDERED: INSULIN (NOVOLOG) ASPART 100 UNITS/ML 10ML VIAL ONE ×2 (13:24→20:37)
[2017-05-06] MEDS: COLLAGENASE CLOSTRIDIUM HIST. 30 GRAMS TUBE TP SCH ×2 (13:26→19:29)
--- NOTE | 2017-05-06 15:47 | PN ---
Progress Note, Physician History of Present Illness: Pt seen and examined, events noted. Pt states she feels a bit better today, less pain. Denies fever/chills or any other specific complaints. - Current Medication List Current Medications: Active Medications Acetaminophen (Tylenol -) 650 mg PO Q6H PRN PRN Reason: FEVER OR PAIN Albuterol Sulfate (Ventolin Hfa Inhaler -) 2 puff IH Q6H PRN PRN Reason: SHORT OF BREATH/WHEEZING Aspirin (Asa -) 81 mg PO DAILY [facility] Last Admin: 05/06/17 10:16 Dose: 81 mg Collagenase (Santyl -) 1 applic TP DAILY [facility] Last Admin: 05/06/17 13:26 Dose: Not Given Gabapentin (Neurontin -) 600 mg PO TID [facility] Last Admin: 05/06/17 13:30 Dose: 600 mg Heparin Sodium (Porcine) (Heparin -) 5,000 unit SQ TID [facility] Last Admin: 05/06/17 13:35 Dose: Not Given Sodium Chloride (Normal Saline -) 1,000 mls @ 83 mls/hr IV ASDIR [facility] Last Admin: 05/06/17 06:54 Dose: 83 mls/hr Vancomycin HCl 1,250 mg/ (Dextrose) 250 mls @ 166.667 mls/hr IVPB DAILY [facility] PRN Reason: Protocol Last Admin: 05/06/17 10:15 Dose: 166.667 mls/hr Piperacillin Sod/Tazobactam (Sod 3.375 gm/ Dextrose) 50 mls @ 100 mls/hr IVPB Q8H-IV [facility] PRN Reason: Protocol Last Admin: 05/06/17 10:15 Dose: 100 mls/hr Insulin Aspart (Novolog Vial Sliding Scale -) 1 vial SQ ACHS [facility] PRN Reason: Protocol Last Admin: 05/06/17 13:29 Dose: 4 units Insulin Detemir (Levemir Vial) 10 units SQ HS [facility] Last Admin: 05/05/17 22:06 Dose: 10 unit Levothyroxine Sodium (Synthroid -) 25 mcg PO DAILY@0700 [facility] Last Admin: 05/06/17 06:55 Dose: 25 mcg Lisinopril (Prinivil) 20 mg PO DAILY [facility] Last Admin: 05/06/17 10:16 Dose: 20 mg Oxycodone HCl (Roxicodone -) 10 mg PO Q4H PRN PRN Reason: PAIN Last Admin: 05/06/17 10:59 Dose: 10 mg - Objective Vital Signs: Vital Signs Temperature 99.2 F 05/06/17 14:02 Pulse Rate 64 05/06/17 14:02 Respiratory Rate 18 05/06/17 14:02 Blood Pressure 145/72 05/06/17 14:02 O2 Sat by Pulse Oximetry (%) 98 05/05/17 21:00 Constitutional: Yes: No Distress, Calm Eyes: Yes: WNL HENT: Yes: WNL Neck: Yes: WNL Cardiovascular: Yes: Regular Rate and Rhythm Respiratory: Yes: Regular Gastrointestinal: Yes: Normal Bowel Sounds, Soft Genitourinary: Yes: WNL Musculoskeletal: Yes: WNL Extremities: Yes: Other (Rt LE erythema/warmth/tenderness, Rt heel ulcer without significant drainage) Neurological: Yes: Alert, Oriented Labs: CBC, BMP 05/06/17 06:05 05/06/17 06:05 INR, PTT INR 1.05 (0.82-1.09) 05/03/17 17:45 - ....Imaging MRI: Report Reviewed Problem List - Problems (1) Diabetes Code(s): E11.9 - TYPE 2 DIABETES MELLITUS WITHOUT COMPLICATIONS (2) Diabetic foot ulcer Code(s): E11.621 - TYPE 2 DIABETES MELLITUS WITH FOOT ULCER L97.509 - NON-PRESSURE CHRONIC ULCER OTH PRT UNSP FOOT W UNSP SEVERITY Qualifiers: Diabetic foot ulcer location: heel Diabetes mellitus type: type 2 Laterality: right Non-pressure ulcer stage: with necrosis of muscle Qualified Code(s): E11.621 - Type 2 diabetes mellitus with foot ulcer; L97.509 - Non-pressure chronic ulcer of other part of unspecified foot with unspecified severity (3) Osteomyelitis of foot Code(s): M86.9 - OSTEOMYELITIS, UNSPECIFIED Assessment/Plan LE cellulitis Rt heel diabetic ulcer/OM - still with erythema/mod tenderness - MRI results noted, plan for bone biopsy - continue current antibiotics for now
[2017-05-06] MEDS: DOCUSATE SODIUM 100 MG CAPSULE (FP) PO SCH (21:13)
[2017-05-06] MEDS: SENNOSIDES 8.6MG TABLET (FP) PO PRN (21:23)
[2017-05-06] MEDS: INSULIN DETEMIR 100 UNITS/ML MDV SQ SCH (21:30)
[2017-05-07] MEDS ORDERED: DEXTROSE 5%-WATER - 50 ML IVPB ONE ×2 (01:50→09:31)
[2017-05-07] MEDS ORDERED: PIPERACILLIN/TAZOBACTAM 3.375 GM VIAL IVPB ONE ×2 (01:50→09:31)
[2017-05-07] MEDS: PIPERACILLIN/TAZOB 3.375 GM 3.375 GM in DEXTROSE 5%-WATER - 50 ML IVPB SCH ×3 (01:56→22:15)
[2017-05-07] MEDS: oxyCODONE HCL 5 MG TABLET PO PRN ×4 (01:57→19:22)
[2017-05-07] MEDS: ACETAMINOPHEN 325 MG TABLET (FP) PO PRN ×3 (01:58→19:22)
[2017-05-07] MEDS: SODIUM CHLORIDE 1,000 ML IV SCH ×2 (06:24→17:10)
[2017-05-07] MEDS: INSULIN SLIDING SCALE (NOVOLOG) 1 VIAL SQ SCH ×4 (06:27→22:17)
[2017-05-07] MEDS: HEPARIN NA (PORCINE) 5,000 UNITS/ML 1ML VIAL SQ SCH ×2 (06:28→13:26)
[2017-05-07] MEDS: LEVOTHYROXINE NA 25 MCG TABLET (FP) PO SCH (06:28)
[2017-05-07] MEDS: GABAPENTIN 300 MG CAPSULE (FP) PO SCH ×3 (06:28→22:17)
--- NOTE | 2017-05-07 08:29 | PN ---
Progress Note, Physician History of Present Illness: Foot feeling a little better today. Will be havign debridement of foot/ heel on Monday per podiatry - Current Medication List Current Medications: Active Medications Acetaminophen (Tylenol -) 650 mg PO Q6H PRN PRN Reason: FEVER OR PAIN Last Admin: 05/07/17 01:58 Dose: 650 mg Albuterol Sulfate (Ventolin Hfa Inhaler -) 2 puff IH Q6H PRN PRN Reason: SHORT OF BREATH/WHEEZING Aspirin (Asa -) 81 mg PO DAILY [facility] Last Admin: 05/06/17 10:16 Dose: 81 mg Collagenase (Santyl -) 1 applic TP DAILY [facility] Last Admin: 05/06/17 19:29 Dose: 1 applic Docusate Sodium (Colace -) 300 mg PO [facility] Last Admin: 05/06/17 21:13 Dose: 300 mg Gabapentin (Neurontin -) 600 mg PO TID [facility] Last Admin: 05/07/17 06:28 Dose: 600 mg Heparin Sodium (Porcine) (Heparin -) 5,000 unit SQ TID [facility] Last Admin: 05/07/17 06:28 Dose: 5,000 unit Sodium Chloride (Normal Saline -) 1,000 mls @ 83 mls/hr IV ASDIR [facility] Last Admin: 05/07/17 06:24 Dose: Not Given Vancomycin HCl 1,250 mg/ (Dextrose) 250 mls @ 166.667 mls/hr IVPB DAILY [facility] PRN Reason: Protocol Last Admin: 05/06/17 10:15 Dose: 166.667 mls/hr Piperacillin Sod/Tazobactam (Sod 3.375 gm/ Dextrose) 50 mls @ 100 mls/hr IVPB Q8H-IV [facility] PRN Reason: Protocol Last Admin: 05/07/17 01:56 Dose: 100 mls/hr Insulin Aspart (Novolog Vial Sliding Scale -) 1 vial SQ ACHS [facility] PRN Reason: Protocol Last Admin: 05/07/17 06:27 Dose: Not Given Insulin Detemir (Levemir Vial) 10 units SQ HS [facility] Last Admin: 05/06/17 21:30 Dose: 10 unit Levothyroxine Sodium (Synthroid -) 25 mcg PO DAILY@0700 [facility] Last Admin: 05/07/17 06:28 Dose: 25 mcg Lisinopril (Prinivil) 20 mg PO DAILY [facility] Last Admin: 05/06/17 10:16 Dose: 20 mg Oxycodone HCl (Roxicodone -) 10 mg PO Q4H PRN PRN Reason: PAIN Last Admin: 05/07/17 01:57 Dose: 10 mg Senna (Senna -) 2 tab PO HS PRN PRN Reason: CONSTIPATION Last Admin: 05/06/17 21:23 Dose: 2 tab - Objective Vital Signs: Vital Signs Temperature 98 F 05/07/17 05:35 Pulse Rate 63 05/07/17 05:35 Respiratory Rate 18 05/07/17 05:35 Blood Pressure 114/56 05/07/17 05:35 O2 Sat by Pulse Oximetry (%) 98 05/06/17 21:00 Constitutional: Yes: No Distress, Calm Neck: Yes: Supple, Trachea Midline Cardiovascular: Yes: Regular Rate and Rhythm, S1, S2. No: Murmur Respiratory: Yes: Regular, CTA Bilaterally. No: Rales, Rhonchi, Wheezes Gastrointestinal: Yes: Normal Bowel Sounds, Soft, Abdomen, Obese. No: Distention, Tenderness Extremities: Yes: Other (dressing on right foot) Edema: Yes Edema: LLE: 2+, RLE: 2+ Labs: CBC, BMP 05/06/17 06:05 05/06/17 06:05 INR, PTT INR 1.05 (0.82-1.09) 05/03/17 17:45 Assessment/Plan Current Active Problems Altered mental status (Acute) CML (chronic myelocytic leukemia) (Acute) Diabetes (Acute) Electrolyte abnormality (Acute) Metabolic encephalopathy (Acute) Severe sepsis (Acute) Thrombocytopenia (Acute) Osteomyelitis -cont current treatment
[2017-05-07] MEDS: VANCOMYCIN 1,250 MG in DEXTROSE 5%-WATER - 250 ML IVPB SCH (09:39)
[2017-05-07] MEDS: ASPIRIN 81 MG CHEWABLE TABLETS PO SCH (09:39)
[2017-05-07] MEDS: LISINOPRIL 20 MG TABLET (FP) PO SCH (09:39)
[2017-05-07] MEDS: COLLAGENASE CLOSTRIDIUM HIST. 30 GRAMS TUBE TP SCH (09:47)
--- NOTE | 2017-05-07 11:36 | PN ---
Progress Note, Physician History of Present Illness: Pt states she feels a bit better than yesterday, pain more controlled. Denies fever/chills. No other specific complaints. - Current Medication List Current Medications: Active Medications Acetaminophen (Tylenol -) 650 mg PO Q6H PRN PRN Reason: FEVER OR PAIN Last Admin: 05/07/17 09:39 Dose: 650 mg Albuterol Sulfate (Ventolin Hfa Inhaler -) 2 puff IH Q6H PRN PRN Reason: SHORT OF BREATH/WHEEZING Aspirin (Asa -) 81 mg PO DAILY [facility] Last Admin: 05/07/17 09:39 Dose: 81 mg Collagenase (Santyl -) 1 applic TP DAILY [facility] Last Admin: 05/07/17 09:47 Dose: Not Given Docusate Sodium (Colace -) 300 mg PO [facility] Last Admin: 05/06/17 21:13 Dose: 300 mg Gabapentin (Neurontin -) 600 mg PO TID [facility] Last Admin: 05/07/17 06:28 Dose: 600 mg Heparin Sodium (Porcine) (Heparin -) 5,000 unit SQ TID [facility] Last Admin: 05/07/17 06:28 Dose: 5,000 unit Sodium Chloride (Normal Saline -) 1,000 mls @ 83 mls/hr IV ASDIR [facility] Last Admin: 05/07/17 06:24 Dose: Not Given Vancomycin HCl 1,250 mg/ (Dextrose) 250 mls @ 166.667 mls/hr IVPB DAILY [facility] PRN Reason: Protocol Last Admin: 05/07/17 09:39 Dose: 166.667 mls/hr Piperacillin Sod/Tazobactam (Sod 3.375 gm/ Dextrose) 50 mls @ 100 mls/hr IVPB Q8H-IV [facility] PRN Reason: Protocol Last Admin: 05/07/17 09:38 Dose: 100 mls/hr Insulin Aspart (Novolog Vial Sliding Scale -) 1 vial SQ ACHS [facility] PRN Reason: Protocol Last Admin: 05/07/17 06:27 Dose: Not Given Insulin Detemir (Levemir Vial) 10 units SQ [facility] Last Admin: 05/06/17 21:30 Dose: 10 unit Levothyroxine Sodium (Synthroid -) 25 mcg PO DAILY@0700 [facility] Last Admin: 05/07/17 06:28 Dose: 25 mcg Lisinopril (Prinivil) 20 mg PO DAILY [facility] Last Admin: 05/07/17 09:39 Dose: 20 mg Oxycodone HCl (Roxicodone -) 10 mg PO Q4H PRN PRN Reason: PAIN Last Admin: 05/07/17 09:03 Dose: 10 mg Senna (Senna -) 2 tab PO HS PRN PRN Reason: CONSTIPATION Last Admin: 05/06/17 21:23 Dose: 2 tab - Objective Vital Signs: Vital Signs Temperature 98.6 F 05/07/17 09:47 Pulse Rate 66 05/07/17 09:47 Respiratory Rate 16 05/07/17 09:47 Blood Pressure 131/61 05/07/17 11:08 O2 Sat by Pulse Oximetry (%) 98 05/06/17 21:00 Constitutional: Yes: No Distress, Calm Eyes: Yes: WNL HENT: Yes: WNL Neck: Yes: WNL Cardiovascular: Yes: WNL Respiratory: Yes: WNL Gastrointestinal: Yes: Normal Bowel Sounds, Soft Musculoskeletal: Yes: WNL Extremities: Yes: Erythema (RLE, mild warmth/tenderness) Integumentary: Yes: Other (Rt heel ulcer, no purulence) Labs: CBC, BMP 05/06/17 06:05 05/06/17 06:05 INR, PTT INR 1.05 (0.82-1.09) 05/03/17 17:45 Problem List - Problems (1) Diabetes Code(s): E11.9 - TYPE 2 DIABETES MELLITUS WITHOUT COMPLICATIONS (2) Diabetic foot ulcer Code(s): E11.621 - TYPE 2 DIABETES MELLITUS WITH FOOT ULCER L97.509 - NON-PRESSURE CHRONIC ULCER OTH PRT UNSP FOOT W UNSP SEVERITY Qualifiers: Diabetic foot ulcer location: heel Diabetes mellitus type: type 2 Laterality: right Non-pressure ulcer stage: with necrosis of muscle Qualified Code(s): E11.621 - Type 2 diabetes mellitus with foot ulcer; L97.509 - Non-pressure chronic ulcer of other part of unspecified foot with unspecified severity (3) Osteomyelitis of foot Code(s): M86.9 - OSTEOMYELITIS, UNSPECIFIED Assessment/Plan RLE cellulitis Rt heel diabetic ulcer/OM - clinically stable, less pain - Bone biopsy planned - continue current antibiotics for now - Vancomycin Trough prior to next dose, bmp
[2017-05-07] MEDS: SENNOSIDES 8.6MG TABLET (FP) PO PRN ×2 (13:23→22:28)
[2017-05-07] MEDS ORDERED: PT OWN MED DRAWER 7, Y5N ONE (18:13)
[2017-05-07] MEDS: DOCUSATE SODIUM 100 MG CAPSULE (FP) PO SCH (22:17)
[2017-05-07] MEDS: INSULIN DETEMIR 100 UNITS/ML MDV SQ SCH (22:18)
[2017-05-08] MEDS ORDERED: DEXTROSE 5%-WATER - 50 ML IVPB ONE ×2 (02:15→10:09)
[2017-05-08] MEDS ORDERED: PIPERACILLIN/TAZOBACTAM 3.375 GM VIAL IVPB ONE ×2 (02:15→10:09)
[2017-05-08] MEDS: PIPERACILLIN/TAZOB 3.375 GM 3.375 GM in DEXTROSE 5%-WATER - 50 ML IVPB SCH ×2 (02:27→10:42)
[2017-05-08] MEDS: oxyCODONE HCL 5 MG TABLET PO PRN ×3 (06:42→20:22)
[2017-05-08] MEDS: GABAPENTIN 300 MG CAPSULE (FP) PO SCH ×3 (06:43→23:30)
[2017-05-08] MEDS: LEVOTHYROXINE NA 25 MCG TABLET (FP) PO SCH (06:43)
[2017-05-08] MEDS: INSULIN SLIDING SCALE (NOVOLOG) 1 VIAL SQ SCH ×4 (06:48→23:43)
[2017-05-08] MEDS: SODIUM CHLORIDE 1,000 ML IV SCH (06:48)
[2017-05-08 07:14] LABS: BASOPHIL 0.4 % (0-2.0); EOSINOPHIL 3.9 % (0-4.5); MCH 28.6 pg (25.7-33.7); MEAN CELL VOLUME 89.3 fl (80-96); MEAN PLT VOLUME 8.7 fl (7.5-11.1); NEUTROPHILS 67.8 % (42.8-82.8); PLATELET COUNT 127 K/MM3 (134-434); RDW 16.6 % (11.6-15.6)
[2017-05-08 07:55] LABS: ANION GAP 5 (8-16); BILIRUBIN,TOTAL 0.5 mg/dL (0.2-1.0); CALCIUM 7.6 mg/dL (8.5-10.1); CO2 29 mmol/L (21-32); CREATININE 0.6 mg/dL (0.55-1.02); GLUCOSE,RANDOM 99 mg/dL (74-106); SGOT/AST 16 U/L (15-37); SGPT/ALT 27 U/L (12-78)
[2017-05-08 07:56] LABS: ALK PHOS 153 U/L (45-117)
[2017-05-08] MEDS ORDERED: ENOXAPARIN NA (PORCINE) 80 MG/0.8 ML DISP.SYRIN SQ SCH (10:00)
[2017-05-08] MEDS ORDERED: PT OWN MED DRAWER 7, Y5N ONE ×2 (10:09→13:44)
[2017-05-08] MEDS: ENOXAPARIN NA (PORCINE) 40 MG/0.4 ML DISP.SYRIN SQ SCH (10:41)
[2017-05-08] MEDS: COLLAGENASE CLOSTRIDIUM HIST. 30 GRAMS TUBE TP SCH (10:43)
[2017-05-08] MEDS: ASPIRIN 81 MG CHEWABLE TABLETS PO SCH (10:43)
[2017-05-08] MEDS: VANCOMYCIN 1,250 MG in DEXTROSE 5%-WATER - 250 ML IVPB SCH (10:43)
[2017-05-08] MEDS: LISINOPRIL 20 MG TABLET (FP) PO SCH (10:50)
--- NOTE | 2017-05-08 11:02 | PN ---
Progress Note (short form) - Note Progress Note: Podiatry: Seen/evaluated at bedside, NAD. Does have persistent pain to RLE, denies F/V/N/ C/SOB/CP. AFebrile, VSS> MELANI: R foot: inferior heel DM ulcer with mixed fibrogranular base, medial aspect of wound probes to bone, no purulence, no fluctuance, no soft tissue crepitus. AScending cellulitis to lower leg. Moderate tenderness to palpation. WBC: 4.0 Blood Cx: no growth MRI R Foot: chronic osteomyelitis calcaneus Imp: 66 year old IDDM F with R heel ulcer and chronic osteomyelitis 1. C/w IV abx per ID 2. C/w local wound care Rx 3. Plan for R heel debridement, bone biopsy tomorrow in [place]. NPO at midnight. Michaela Farmer DPM
--- NOTE | 2017-05-08 11:29 | PN ---
Progress Note, Physician History of Present Illness: Patient notes pain in right foot, otherwise feeling OK. To go to OR tomorrow for bone biopsy and debridement of heel. - Current Medication List Current Medications: Active Medications Acetaminophen (Tylenol -) 650 mg PO Q6H PRN PRN Reason: FEVER OR PAIN Last Admin: 05/07/17 19:22 Dose: 650 mg Albuterol Sulfate (Ventolin Hfa Inhaler -) 2 puff IH Q6H PRN PRN Reason: SHORT OF BREATH/WHEEZING Aspirin (Asa -) 81 mg PO DAILY [facility] Last Admin: 05/08/17 10:43 Dose: 81 mg Collagenase (Santyl -) 1 applic TP DAILY [facility] Last Admin: 05/08/17 10:43 Dose: 1 applic Docusate Sodium (Colace -) 300 mg PO HS [facility] Last Admin: 05/07/17 22:17 Dose: 300 mg Enoxaparin Sodium (Lovenox -) 40 mg SQ DAILY [facility] Last Admin: 05/08/17 10:41 Dose: 40 mg Gabapentin (Neurontin -) 600 mg PO TID [facility] Last Admin: 05/08/17 06:43 Dose: 600 mg Sodium Chloride (Normal Saline -) 1,000 mls @ 83 mls/hr IV ASDIR [facility] Last Admin: 05/08/17 06:48 Dose: 83 mls/hr Vancomycin HCl 1,250 mg/ (Dextrose) 250 mls @ 166.667 mls/hr IVPB DAILY [facility] PRN Reason: Protocol Last Admin: 05/08/17 10:43 Dose: 166.667 mls/hr Piperacillin Sod/Tazobactam (Sod 3.375 gm/ Dextrose) 50 mls @ 100 mls/hr IVPB Q8H-IV [facility] PRN Reason: Protocol Last Admin: 05/08/17 10:42 Dose: 100 mls/hr Insulin Aspart (Novolog Vial Sliding Scale -) 1 vial SQ ACHS [facility] PRN Reason: Protocol Last Admin: 05/08/17 06:48 Dose: Not Given Insulin Detemir (Levemir Vial) 10 units SQ HS [facility] Last Admin: 05/07/17 22:18 Dose: 10 unit Levothyroxine Sodium (Synthroid -) 25 mcg PO DAILY@0700 [facility] Last Admin: 05/08/17 06:43 Dose: 25 mcg Lisinopril (Prinivil) 20 mg PO DAILY [facility] Last Admin: 05/08/17 10:50 Dose: 20 mg Oxycodone HCl (Roxicodone -) 10 mg PO Q4H PRN PRN Reason: PAIN Last Admin: 05/08/17 10:42 Dose: 10 mg Senna (Senna -) 2 tab PO HS PRN PRN Reason: CONSTIPATION Last Admin: 05/07/17 22:28 Dose: 2 tab - Objective Vital Signs: Vital Signs Temperature 98.1 F 05/08/17 06:00 Pulse Rate 64 05/08/17 06:00 Respiratory Rate 20 05/08/17 06:00 Blood Pressure 144/71 05/08/17 06:00 O2 Sat by Pulse Oximetry (%) 99 05/07/17 21:00 Constitutional: Yes: No Distress, Calm Neck: Yes: Supple, Trachea Midline Cardiovascular: Yes: Regular Rate and Rhythm, S1, S2. No: Murmur Respiratory: Yes: Regular, CTA Bilaterally. No: Rales, Rhonchi, Wheezes Gastrointestinal: Yes: Normal Bowel Sounds, Soft. No: Distention, Tenderness Extremities: Yes: Other (right foot with dressing) Edema: LLE: 2+, RLE: 2+ Neurological: Yes: Alert, Oriented Labs: CBC, BMP 05/08/17 06:00 05/08/17 06:00 INR, PTT INR 1.05 (0.82-1.09) 05/03/17 17:45 Assessment/Plan Current Active Problems Altered mental status (Acute) CML (chronic myelocytic leukemia) (Acute) Diabetes (Acute) Electrolyte abnormality (Acute) Metabolic encephalopathy (Acute) Severe sepsis (Acute) Thrombocytopenia (Acute) Osteomyelitis -cont current treatment with abx, wound care -medically stable for heel debridement/ bone biopsy
--- NOTE | 2017-05-08 13:48 | PN ---
Progress Note (short form) - Note Progress Note: Patient seen and examined Denies any complaints Last Vital Signs Temp Pulse Resp BP Pulse Ox 98.1 F 64 20 144/71 96 05/08/17 06:00 05/08/17 06:00 05/08/17 06:00 05/08/17 06:00 05/08/17 09:00 Cor: RSR, No murmurs, No gallops Lungs: Clear to P&A Abd: Soft, Normal bowel sounds, No organomegaly Ext:RLE cellulitis improving Abnormal Lab Results 05/08/17 05/08/17 06:00 06:00 RBC 2.93 L Hgb 8.4 L Hct 26.2 L RDW 16.6 H Plt Count 127 L Anion Gap 5 L Calcium 7.6 L Alkaline Phosphatase 153 H D Total Protein 6.0 L Albumin 2.0 L Active Medications Generic Name Dose Route Start Last Admin Trade Name Freq PRN Reason Stop Dose Admin Acetaminophen 650 mg 05/04/17 16:10 05/07/17 19:22 Tylenol - PO 650 mg Q6H PRN Administration FEVER OR PAIN Albuterol Sulfate 2 puff 05/04/17 06:38 Ventolin Hfa Inhaler - IH Q6H PRN SHORT OF BREATH/WHEEZING Aspirin 81 mg 05/04/17 10:00 05/08/17 10:43 Asa - PO 81 mg DAILY [facility] Administration Collagenase 1 applic 05/05/17 10:00 05/08/17 10:43 Santyl - TP 1 applic DAILY [facility] Administration Docusate Sodium 300 mg 05/06/17 22:00 05/07/17 22:17 Colace - PO 300 mg HS [facility] Administration Enoxaparin Sodium 40 mg 05/08/17 10:00 05/08/17 10:41 Lovenox - SQ 40 mg DAILY [facility] Administration Gabapentin 600 mg 05/04/17 14:00 05/08/17 06:43 Neurontin - PO 600 mg TID [facility] Administration Sodium Chloride 1,000 mls @ 83 mls/hr 05/04/17 05:04 05/08/17 06:48 Normal Saline - IV 83 mls/hr ASDIR [facility] Administration Vancomycin HCl 1,250 mg/ 250 mls @ 166.667 mls/hr 05/04/17 14:00 05/08/17 10:43 Dextrose IVPB 166.667 mls/hr DAILY [facility] Administration Protocol Piperacillin Sod/Tazobactam 50 mls @ 100 mls/hr 05/04/17 18:00 05/08/17 10:42 Sod 3.375 gm/ Dextrose IVPB 100 mls/hr Q8H-IV [facility] Administration Protocol Insulin Aspart 1 vial 05/04/17 07:00 05/08/17 12:41 Novolog Vial Sliding Scale - SQ 2 units ACHS [facility] Administration Protocol Insulin Detemir 10 units 05/04/17 22:00 05/07/17 22:18 Levemir Vial SQ 10 unit HS [facility] Administration Levothyroxine Sodium 25 mcg 05/04/17 07:00 05/08/17 06:43 Synthroid - PO 25 mcg DAILY@0700 [facility] Administration Lisinopril 20 mg 05/04/17 10:00 05/08/17 10:50 Prinivil PO 20 mg DAILY [facility] Administration Oxycodone HCl 10 mg 05/05/17 03:02 05/08/17 10:42 Roxicodone - PO 10 mg Q4H PRN Administration PAIN Senna 2 tab 05/06/17 20:43 05/07/17 22:28 Senna - PO 2 tab HS PRN Administration CONSTIPATION A/P 66yo F with PMH of CML on chemotherapy, DM presenting c/o SOB of sudden onset. Pt found to have severe sepsis (leukocyte count 24.4, fever 102F, tachycardia 102, plus lactic acidosis of 2.5) with AMS. Source? diabetic foot ulcer/cellulitis CML --[place] [address] PResumably in good remission LEukocytosis due to infection will check pcr;for bcr;abl to assess molecular remission status resume nilotinib---300mg PO bid mild thrombocytopenia--? infection ? meds monitor
[2017-05-08] MEDS: ACETAMINOPHEN 325 MG TABLET (FP) PO PRN (13:50)
--- NOTE | 2017-05-08 14:56 | PN ---
Progress Note, Physician History of Present Illness: patient stable much better plan is for bone biopsy - Current Medication List Current Medications: Active Medications Acetaminophen (Tylenol -) 650 mg PO Q6H PRN PRN Reason: FEVER OR PAIN Last Admin: 05/08/17 13:50 Dose: 650 mg Albuterol Sulfate (Ventolin Hfa Inhaler -) 2 puff IH Q6H PRN PRN Reason: SHORT OF BREATH/WHEEZING Aspirin (Asa -) 81 mg PO DAILY [facility] Last Admin: 05/08/17 10:43 Dose: 81 mg Collagenase (Santyl -) 1 applic TP DAILY [facility] Last Admin: 05/08/17 10:43 Dose: 1 applic Docusate Sodium (Colace -) 300 mg PO HS [facility] Last Admin: 05/07/17 22:17 Dose: 300 mg Enoxaparin Sodium (Lovenox -) 40 mg SQ DAILY [facility] Last Admin: 05/08/17 10:41 Dose: 40 mg Gabapentin (Neurontin -) 600 mg PO TID [facility] Last Admin: 05/08/17 13:50 Dose: 600 mg Sodium Chloride (Normal Saline -) 1,000 mls @ 83 mls/hr IV ASDIR [facility] Last Admin: 05/08/17 06:48 Dose: 83 mls/hr Vancomycin HCl 1,250 mg/ (Dextrose) 250 mls @ 166.667 mls/hr IVPB DAILY [facility] PRN Reason: Protocol Last Admin: 05/08/17 10:43 Dose: 166.667 mls/hr Insulin Aspart (Novolog Vial Sliding Scale -) [address] [facility] PRN Reason: Protocol Last Admin: 05/08/17 12:41 Dose: 2 units Insulin Detemir (Levemir Vial) 10 units SQ [facility] Last Admin: 05/07/17 22:18 Dose: 10 unit Levothyroxine Sodium (Synthroid -) 25 mcg PO DAILY@0700 [facility] Last Admin: 05/08/17 06:43 Dose: 25 mcg Lisinopril (Prinivil) 20 mg PO DAILY [facility] Last Admin: 05/08/17 10:50 Dose: 20 mg Non-Formulary Medication (Patient's Own Med) 1 each PO DAILY [facility] Oxycodone HCl (Roxicodone -) 10 mg PO Q4H PRN PRN Reason: PAIN Last Admin: 05/08/17 10:42 Dose: 10 mg Senna (Senna -) 2 tab PO HS PRN PRN Reason: CONSTIPATION Last Admin: 05/07/17 22:28 Dose: 2 tab - Objective Vital Signs: Vital Signs Temperature 98.1 F 05/08/17 06:00 Pulse Rate 64 05/08/17 06:00 Respiratory Rate 20 05/08/17 06:00 Blood Pressure 144/71 05/08/17 06:00 O2 Sat by Pulse Oximetry (%) 96 05/08/17 09:00 Constitutional: Yes: No Distress, Calm, Obese Cardiovascular: Yes: Regular Rate and Rhythm Respiratory: Yes: Regular, CTA Bilaterally Gastrointestinal: Yes: Normal Bowel Sounds, Soft Musculoskeletal: Yes: Other Extremities: Yes: Other Integumentary: Yes: Erythema, Other Wound/Incision: Yes: Dressing Dry and Intact Psychiatric: Yes: Alert, Oriented Labs: CBC, BMP 05/08/17 06:00 05/08/17 06:00 INR, PTT INR 1.05 (0.82-1.09) 05/03/17 17:45 - ....Imaging MRI: Report Reviewed, Image Reviewed Assessment/Plan Problem List - Problems (1) Severe sepsis Code(s): A41.9 - SEPSIS, UNSPECIFIED ORGANISM R65.20 - SEVERE SEPSIS WITHOUT SEPTIC SHOCK (2) Diabetic foot ulcer Code(s): E11.621 - TYPE 2 DIABETES MELLITUS WITH FOOT ULCER L97.509 - NON-PRESSURE CHRONIC ULCER OTH PRT UNSP FOOT W UNSP SEVERITY Qualifiers: Diabetic foot ulcer location: heel Diabetes mellitus type: type 2 Laterality: right Non-pressure ulcer stage: with necrosis of muscle Qualified Code(s): E11.621 - Type 2 diabetes mellitus with foot ulcer; L97.509 - Non-pressure chronic ulcer of other part of unspecified foot with unspecified severity (3) Metabolic encephalopathy Code(s): G93.41 - METABOLIC ENCEPHALOPATHY (4) CML (chronic myelocytic leukemia) Code(s): C92.10 - CHRONIC MYELOID LEUK, BCR/ABL-POSITIVE, NOT ACHIEVE REMIS (5) Diabetes Code(s): E11.9 - TYPE 2 DIABETES MELLITUS WITHOUT COMPLICATIONS (6) CHF (congestive heart failure) Code(s): I50.9 - HEART FAILURE, UNSPECIFIED Qualifiers: Congestive heart failure type: diastolic Congestive heart failure chronicity: chronic Qualified Code(s): I50.32 - Chronic diastolic ( congestive) heart failure (7) COPD (chronic obstructive pulmonary disease) Code(s): J44.9 - CHRONIC OBSTRUCTIVE PULMONARY DISEASE, UNSPECIFIED (8) Hypertension Code(s): I10 - ESSENTIAL (PRIMARY) HYPERTENSION (9) Hypothyroid Code(s): E03.9 - HYPOTHYROIDISM, UNSPECIFIED 10 leukocytosis 11 bilateral cellulitits of the legs her cause of sepsis is probably her legs plan continue abx mri results noted patient for biopsy will stop abx for now please take patient to or on wed
[2017-05-08] MEDS: INSULIN DETEMIR 100 UNITS/ML MDV SQ SCH (23:29)
[2017-05-08] MEDS: SENNOSIDES 8.6MG TABLET (FP) PO PRN (23:30)
[2017-05-08] MEDS: DOCUSATE SODIUM 100 MG CAPSULE (FP) PO SCH (23:30)
[2017-05-08] MEDS: TASIGNA 150 MG PO SCH (23:30)
[2017-05-09] MEDS: ACETAMINOPHEN 325 MG TABLET (FP) PO PRN (00:11)
[2017-05-09] MEDS: oxyCODONE HCL 5 MG TABLET PO PRN ×6 (00:11→22:59)
[2017-05-09] MEDS: SODIUM CHLORIDE 1,000 ML IV SCH (06:50)
[2017-05-09] MEDS: LEVOTHYROXINE NA 25 MCG TABLET (FP) PO SCH (06:51)
[2017-05-09] MEDS: GABAPENTIN 300 MG CAPSULE (FP) PO SCH ×3 (06:51→22:41)
[2017-05-09] MEDS: INSULIN SLIDING SCALE (NOVOLOG) 1 VIAL SQ SCH ×4 (06:56→22:44)
[2017-05-09] MEDS ORDERED: INSULIN (NOVOLOG) ASPART 100 UNITS/ML 10ML VIAL ONE ×3 (06:58→17:04)
[2017-05-09 07:47] LABS: BASOPHIL 0.4 % (0-2.0); EOSINOPHIL 2.8 % (0-4.5); MCH 28.5 pg (25.7-33.7); MCHC 31.9 g/dl (32.0-36.0); MEAN CELL VOLUME 89.2 fl (80-96); MEAN PLT VOLUME 8.5 fl (7.5-11.1); NEUTROPHILS 67.8 % (42.8-82.8); PLATELET COUNT 144 K/MM3 (134-434); RDW 16.8 % (11.6-15.6); WHITE BLOOD COUNT 3.7 K/mm3 (4.0-10.0)
[2017-05-09 08:04] LABS: ALBUMIN 2.1 g/dl (3.4-5.0); ALK PHOS 151 U/L (45-117); ANION GAP 7 (8-16); BILIRUBIN,TOTAL 0.6 mg/dL (0.2-1.0); CO2 28 mmol/L (21-32); CREATININE 0.5 mg/dL (0.55-1.02); GLUCOSE,RANDOM 135 mg/dL (74-106); SGOT/AST 11 U/L (15-37); SGPT/ALT 24 U/L (12-78); TOT PROT 6.1 g/dl (6.4-8.2)
[2017-05-09] MEDS: LISINOPRIL 20 MG TABLET (FP) PO SCH (09:51)
[2017-05-09] MEDS: ASPIRIN 81 MG CHEWABLE TABLETS PO SCH (09:52)
[2017-05-09] MEDS: TASIGNA 150 MG PO SCH ×2 (09:52→22:42)
[2017-05-09] MEDS: COLLAGENASE CLOSTRIDIUM HIST. 30 GRAMS TUBE TP SCH (09:52)
--- NOTE | 2017-05-09 11:36 | PN ---
Progress Note (short form) - Note Progress Note: Podiatry: Seen and evaluated at bedside, NAD. Pain slightly improved, denies F/V/N/C/SOB/ CP. Afebrile, VSS. MELANI: R foot: inferior heel DM ulcer with mostly granular base, probing at medial most aspect of wound, mild erythema to the lower leg. There is no purulent drainage, no fluctuance, no soft tissue crepitus. Minimal tenderness to ulcer site. WBC: 3.7 Blood Cx: no growth x 96 hrs Wound Cx: MRSA, diphtheroid/corynebacterium R foot MRI: osteomyelitis calcaneus Imp: 66 year old IDDM F with R heel ulcer and osteomyelitis 1. Discussed case with Dr. Pena ID; will hold abx in anticipation for bone biopsy. Still waiting on timing of procedure. 2. C/w local wound care 3. Heel offloading 4. Will need treatment for osteomyelitis Michaela Farmer DPM
--- NOTE | 2017-05-09 13:41 | PN ---
Progress Note, Physician Chief Complaint: Ms Hernandez says she is feeling fine today. Says her foot pain is controlled. No cp, sob, n/v. - Current Medication List Current Medications: Active Medications Acetaminophen (Tylenol -) 650 mg PO Q6H PRN PRN Reason: FEVER OR PAIN Last Admin: 05/09/17 00:11 Dose: 650 mg Albuterol Sulfate (Ventolin Hfa Inhaler -) 2 puff IH Q6H PRN PRN Reason: SHORT OF BREATH/WHEEZING Aspirin (Asa -) 81 mg PO DAILY [facility] Last Admin: 05/09/17 09:52 Dose: 81 mg Collagenase (Santyl -) 1 applic TP DAILY [facility] Last Admin: 05/09/17 09:52 Dose: 1 applic Docusate Sodium (Colace -) 300 mg PO HS [facility] Last Admin: 05/08/17 23:30 Dose: 300 mg Enoxaparin Sodium (Lovenox -) 40 mg SQ DAILY [facility] Last Admin: 05/08/17 10:41 Dose: 40 mg Gabapentin (Neurontin -) 600 mg PO TID [facility] Last Admin: 05/09/17 06:51 Dose: 600 mg Sodium Chloride (Normal Saline -) 1,000 mls @ 83 mls/hr IV ASDIR [facility] Last Admin: 05/09/17 06:50 Dose: 83 mls/hr Insulin Aspart (Novolog Vial Sliding Scale -) 1 vial SQ ACHS [facility] PRN Reason: Protocol Last Admin: 05/09/17 12:20 Dose: Not Given Insulin Detemir (Levemir Vial) 10 units SQ HS [facility] Last Admin: 05/08/17 23:29 Dose: 10 unit Levothyroxine Sodium (Synthroid -) 25 mcg PO DAILY@0700 [facility] Last Admin: 05/09/17 06:51 Dose: 25 mcg Lisinopril (Prinivil) 20 mg PO BID [facility] Tasigna 150mg Capsules-Patient's Own Medication (Non- Formulary) 2 each PO BID [facility] Last Admin: 05/09/17 09:52 Dose: 2 each Oxycodone HCl (Roxicodone -) 10 mg PO Q4H PRN PRN Reason: PAIN Last Admin: 05/09/17 11:00 Dose: 10 mg Senna (Senna -) 2 tab PO HS PRN PRN Reason: CONSTIPATION Last Admin: 05/08/17 23:30 Dose: 2 tab - Objective Vital Signs: Vital Signs Temperature 36.7 C 05/09/17 09:00 Pulse Rate 67 05/09/17 09:00 Respiratory Rate 18 05/09/17 09:00 Blood Pressure 171/62 05/09/17 09:00 O2 Sat by Pulse Oximetry (%) 95 05/08/17 21:00 Constitutional: Yes: No Distress, Calm, Obese Cardiovascular: Yes: Regular Rate and Rhythm. No: Gallop, Murmur, Rub Respiratory: Yes: Regular, CTA Bilaterally. No: Rales, Rhonchi, Wheezes Gastrointestinal: Yes: Normal Bowel Sounds, Soft. No: Distention, Tenderness Extremities: No: Erythema Edema: Yes Edema: LLE: 2+, RLE: 2+ Labs: CBC, BMP 05/09/17 06:00 05/09/17 06:00 INR, PTT INR 1.05 (0.82-1.09) 05/03/17 17:45 Problem List - Problems (1) Severe sepsis Code(s): A41.9 - SEPSIS, UNSPECIFIED ORGANISM R65.20 - SEVERE SEPSIS WITHOUT SEPTIC SHOCK (2) Diabetic foot ulcer Code(s): E11.621 - TYPE 2 DIABETES MELLITUS WITH FOOT ULCER L97.509 - NON-PRESSURE CHRONIC ULCER OTH PRT UNSP FOOT W UNSP SEVERITY Qualifiers: Diabetic foot ulcer location: heel Diabetes mellitus type: type 2 Laterality: right Non-pressure ulcer stage: with necrosis of muscle Qualified Code(s): E11.621 - Type 2 diabetes mellitus with foot ulcer; L97.509 - Non-pressure chronic ulcer of other part of unspecified foot with unspecified severity (3) Metabolic encephalopathy Code(s): G93.41 - METABOLIC ENCEPHALOPATHY (4) CML (chronic myelocytic leukemia) Code(s): C92.10 - CHRONIC MYELOID LEUK, BCR/ABL-POSITIVE, NOT ACHIEVE REMIS (5) Diabetes Code(s): E11.9 - TYPE 2 DIABETES MELLITUS WITHOUT COMPLICATIONS (6) CHF (congestive heart failure) Code(s): I50.9 - HEART FAILURE, UNSPECIFIED Qualifiers: Congestive heart failure type: diastolic Congestive heart failure chronicity: chronic Qualified Code(s): I50.32 - Chronic diastolic ( congestive) heart failure (7) COPD (chronic obstructive pulmonary disease) Code(s): J44.9 - CHRONIC OBSTRUCTIVE PULMONARY DISEASE, UNSPECIFIED (8) Hypertension Code(s): I10 - ESSENTIAL (PRIMARY) HYPERTENSION (9) Hypothyroid Code(s): E03.9 - HYPOTHYROIDISM, UNSPECIFIED Assessment/Plan (1) Severe sepsis Assessment/Plan: -resolved -secondary to osteomyelitis -holding antibiotics for bone biopsy Code(s): A41.9 - SEPSIS, UNSPECIFIED ORGANISM R65.20 - SEVERE SEPSIS WITHOUT SEPTIC SHOCK (2) Diabetic foot ulcer with osteomyelitis Assessment/Plan: -planning for bone biopsy tomorrow -holding antibiotics until after biopsy -will need intermediate antibiotics Code(s): E11.621 - TYPE 2 DIABETES MELLITUS WITH FOOT ULCER L97.509 - NON-PRESSURE CHRONIC ULCER OTH PRT UNSP FOOT W UNSP SEVERITY Qualifiers: Diabetic foot ulcer location: heel Diabetes mellitus type: type 2 Laterality: right Non-pressure ulcer stage: with necrosis of muscle Qualified Code(s): E11.621 - Type 2 diabetes mellitus with foot ulcer; L97.509 - Non-pressure chronic ulcer of other part of unspecified foot with unspecified severity (3) Metabolic encephalopathy Assessment/Plan: -resolved Code(s): G93.41 - METABOLIC ENCEPHALOPATHY (4) CML (chronic myelocytic leukemia) Assessment/Plan: -oncology followig Code(s): C92.10 - CHRONIC MYELOID LEUK, BCR/ABL-POSITIVE, NOT ACHIEVE REMIS (5) Diabetes Assessment/Plan: -diabetic diet -continue levemir -FSBS and SSI Code(s): E11.9 - TYPE 2 DIABETES MELLITUS WITHOUT COMPLICATIONS (6) CHF (congestive heart failure) Assessment/Plan: -stop hydration -restart torsemide Code(s): I50.9 - HEART FAILURE, UNSPECIFIED Qualifiers: Congestive heart failure type: diastolic Congestive heart failure chronicity: chronic Qualified Code(s): I50.32 - Chronic diastolic ( congestive) heart failure (7) COPD (chronic obstructive pulmonary disease) Assessment/Plan: -not in exacerbation -continue home regimen Code(s): J44.9 - CHRONIC OBSTRUCTIVE PULMONARY DISEASE, UNSPECIFIED (8) Hypertension Assessment/Plan: -elevated -stop IVF -restart torsemide -monitor Code(s): I10 - ESSENTIAL (PRIMARY) HYPERTENSION (9) Hypothyroid Assessment/Plan: -continue synthroid Code(s): E03.9 - HYPOTHYROIDISM, UNSPECIFIED
--- NOTE | 2017-05-09 14:18 | PN ---
Progress Note, Physician History of Present Illness: patient stable no new issues plan is for bone biopsy - Current Medication List Current Medications: Active Medications Acetaminophen (Tylenol -) 650 mg PO Q6H PRN PRN Reason: FEVER OR PAIN Last Admin: 05/09/17 00:11 Dose: 650 mg Albuterol Sulfate (Ventolin Hfa Inhaler -) 2 puff IH Q6H PRN PRN Reason: SHORT OF BREATH/WHEEZING Aspirin (Asa -) 81 mg PO DAILY [facility] Last Admin: 05/09/17 09:52 Dose: 81 mg Collagenase (Santyl -) 1 applic TP DAILY [facility] Last Admin: 05/09/17 09:52 Dose: 1 applic Docusate Sodium (Colace -) 300 mg PO HS [facility] Last Admin: 05/08/17 23:30 Dose: 300 mg Enoxaparin Sodium (Lovenox -) 40 mg SQ DAILY [facility] Last Admin: 05/08/17 10:41 Dose: 40 mg Gabapentin (Neurontin -) 600 mg PO TID [facility] Last Admin: 05/09/17 06:51 Dose: 600 mg Insulin Aspart (Novolog Vial Sliding Scale -) 1 vial SQ ACHS [facility] PRN Reason: Protocol Last Admin: 05/09/17 12:20 Dose: Not Given Insulin Detemir (Levemir Vial) 10 units SQ HS [facility] Last Admin: 05/08/17 23:29 Dose: 10 unit Levothyroxine Sodium (Synthroid -) 25 mcg PO DAILY@0700 [facility] Last Admin: 05/09/17 06:51 Dose: 25 mcg Lisinopril (Prinivil) 20 mg PO DAILY [facility] Tasigna 150mg Capsules-Patient's Own Medication (Non- Formulary) 2 each PO BID [facility] Last Admin: 05/09/17 09:52 Dose: 2 each Oxycodone HCl (Roxicodone -) 10 mg PO Q4H PRN PRN Reason: PAIN Last Admin: 05/09/17 11:00 Dose: 10 mg Senna (Senna -) 2 tab PO HS PRN PRN Reason: CONSTIPATION Last Admin: 05/08/17 23:30 Dose: 2 tab Torsemide (Demadex -) 40 mg PO DAILY [facility] - Objective Vital Signs: Vital Signs Temperature 98.0 F 05/09/17 09:00 Pulse Rate 67 05/09/17 09:00 Respiratory Rate 18 05/09/17 09:00 Blood Pressure 171/62 05/09/17 09:00 O2 Sat by Pulse Oximetry (%) 95 05/08/17 21:00 Constitutional: Yes: No Distress, Calm Cardiovascular: Yes: Regular Rate and Rhythm Respiratory: Yes: Regular, CTA Bilaterally Gastrointestinal: Yes: Normal Bowel Sounds, Soft Musculoskeletal: Yes: Other Extremities: Yes: Erythema (improving) Wound/Incision: Yes: Dressing Dry and Intact Neurological: Yes: Alert, Oriented Psychiatric: Yes: Alert, Oriented Labs: CBC, BMP 05/09/17 06:00 05/09/17 06:00 INR, PTT INR 1.05 (0.82-1.09) 05/03/17 17:45 Assessment/Plan Problem List - Problems (1) Severe sepsis Code(s): A41.9 - SEPSIS, UNSPECIFIED ORGANISM R65.20 - SEVERE SEPSIS WITHOUT SEPTIC SHOCK (2) Diabetic foot ulcer Code(s): E11.621 - TYPE 2 DIABETES MELLITUS WITH FOOT ULCER L97.509 - NON-PRESSURE CHRONIC ULCER OTH PRT UNSP FOOT W UNSP SEVERITY Qualifiers: Diabetic foot ulcer location: heel Diabetes mellitus type: type 2 Laterality: right Non-pressure ulcer stage: with necrosis of muscle Qualified Code(s): E11.621 - Type 2 diabetes mellitus with foot ulcer; L97.509 - Non-pressure chronic ulcer of other part of unspecified foot with unspecified severity (3) Metabolic encephalopathy Code(s): G93.41 - METABOLIC ENCEPHALOPATHY (4) CML (chronic myelocytic leukemia) Code(s): C92.10 - CHRONIC MYELOID LEUK, BCR/ABL-POSITIVE, NOT ACHIEVE REMIS (5) Diabetes Code(s): E11.9 - TYPE 2 DIABETES MELLITUS WITHOUT COMPLICATIONS (6) CHF (congestive heart failure) Code(s): I50.9 - HEART FAILURE, UNSPECIFIED Qualifiers: Congestive heart failure type: diastolic Congestive heart failure chronicity: chronic Qualified Code(s): I50.32 - Chronic diastolic ( congestive) heart failure (7) COPD (chronic obstructive pulmonary disease) Code(s): J44.9 - CHRONIC OBSTRUCTIVE PULMONARY DISEASE, UNSPECIFIED (8) Hypertension Code(s): I10 - ESSENTIAL (PRIMARY) HYPERTENSION (9) Hypothyroid Code(s): E03.9 - HYPOTHYROIDISM, UNSPECIFIED 10 leukocytosis 11 bilateral cellulitits of the legs her cause of sepsis is probably her legs plan continue abx mri results noted patient for biopsy awaiting biopsy patient will need abx depending on cx report
[2017-05-09] MEDS: TORSEMIDE 20 MG TABLET (FP) PO SCH (14:21)
[2017-05-09] MEDS ORDERED: PT OWN MED DRAWER 7, Y5N ONE (21:20)
[2017-05-09] MEDS ORDERED: LISINOPRIL 20 MG TABLET (FP) PO SCH (22:00)
[2017-05-09] MEDS: DOCUSATE SODIUM 100 MG CAPSULE (FP) PO SCH (22:40)
[2017-05-09] MEDS: SENNOSIDES 8.6MG TABLET (FP) PO PRN (22:40)
[2017-05-09] MEDS: INSULIN DETEMIR 100 UNITS/ML MDV SQ SCH (22:44)
[2017-05-09] MEDS ORDERED: LISINOPRIL 10 MG TABLET (FP) PO ONE (23:19)
[2017-05-10] MEDS: GABAPENTIN 300 MG CAPSULE (FP) PO SCH ×3 (05:25→21:34)
[2017-05-10] MEDS: oxyCODONE HCL 5 MG TABLET PO PRN ×4 (05:26→21:34)
[2017-05-10] MEDS: INSULIN SLIDING SCALE (NOVOLOG) 1 VIAL SQ SCH ×4 (06:34→21:37)
[2017-05-10] MEDS: LEVOTHYROXINE NA 25 MCG TABLET (FP) PO SCH (06:35)
[2017-05-10 07:59] LABS: BASOPHIL 0.6 % (0-2.0); EOSINOPHIL 2.9 % (0-4.5); MCH 28.7 pg (25.7-33.7); MCHC 32.4 g/dl (32.0-36.0); MEAN CELL VOLUME 88.4 fl (80-96); MEAN PLT VOLUME 8.5 fl (7.5-11.1); NEUTROPHILS 65.2 % (42.8-82.8); PLATELET COUNT 166 K/MM3 (134-434); WHITE BLOOD COUNT 4.4 K/mm3 (4.0-10.0)
[2017-05-10 08:19] LABS: CALCIUM 8.6 mg/dL (8.5-10.1)
[2017-05-10 08:22] LABS: ANION GAP 7 (8-16); CO2 31 mmol/L (21-32); CREATININE 0.6 mg/dL (0.55-1.02); GLUCOSE,RANDOM 151 mg/dL (74-106); MAGNESIUM 1.9 mg/dL (1.8-2.4); PHOSPHOROUS 3.5 mg/dL (2.5-4.9)
[2017-05-10] MEDS: TORSEMIDE 20 MG TABLET (FP) PO SCH (10:19)
[2017-05-10] MEDS: ASPIRIN 81 MG CHEWABLE TABLETS PO SCH (10:20)
[2017-05-10] MEDS: LISINOPRIL 20 MG TABLET (FP) PO SCH (10:20)
[2017-05-10] MEDS: ENOXAPARIN NA (PORCINE) 40 MG/0.4 ML DISP.SYRIN SQ SCH (10:20)
[2017-05-10] MEDS: TASIGNA 150 MG PO SCH ×2 (10:20→21:39)
[2017-05-10] MEDS: COLLAGENASE CLOSTRIDIUM HIST. 30 GRAMS TUBE TP SCH (10:45)
[2017-05-10] MEDS ORDERED: INSULIN (NOVOLOG) ASPART 100 UNITS/ML 10ML VIAL ONE (12:08)
--- NOTE | 2017-05-10 12:37 | PN ---
Progress Note, Physician Chief Complaint: Ms Hernandez is without complaint. No cp, sob, n/v. - Current Medication List Current Medications: Active Medications Acetaminophen (Tylenol -) 650 mg PO Q6H PRN PRN Reason: FEVER OR PAIN Last Admin: 05/09/17 00:11 Dose: 650 mg Albuterol Sulfate (Ventolin Hfa Inhaler -) 2 puff IH Q6H PRN PRN Reason: SHORT OF BREATH/WHEEZING Aspirin (Asa -) 81 mg PO DAILY [facility] Last Admin: 05/10/17 10:20 Dose: Not Given Collagenase (Santyl -) 1 applic TP DAILY [facility] Last Admin: 05/10/17 10:45 Dose: 1 applic Docusate Sodium (Colace -) 300 mg PO HS [facility] Last Admin: 05/09/17 22:40 Dose: 300 mg Enoxaparin Sodium (Lovenox -) 40 mg SQ DAILY [facility] Last Admin: 05/10/17 10:20 Dose: Not Given Gabapentin (Neurontin -) 600 mg PO TID [facility] Last Admin: 05/10/17 05:25 Dose: 600 mg Insulin Aspart (Novolog Vial Sliding Scale -) 1 vial SQ ACHS [facility] PRN Reason: Protocol Last Admin: 05/10/17 12:11 Dose: 2 units Insulin Detemir (Levemir Vial) 10 units SQ [facility] Last Admin: 05/09/17 22:44 Dose: Not Given Levothyroxine Sodium (Synthroid -) 25 mcg PO DAILY@0700 [facility] Last Admin: 05/10/17 06:35 Dose: 25 mcg Lisinopril (Prinivil) 20 mg PO DAILY [facility] Last Admin: 05/10/17 10:20 Dose: 20 mg Tasigna 150mg Capsules-Patient's Own Medication (Non- Formulary) 2 each PO BID [facility] Last Admin: 05/10/17 10:20 Dose: 2 each Oxycodone HCl (Roxicodone -) 10 mg PO Q4H PRN PRN Reason: PAIN Last Admin: 05/10/17 10:45 Dose: 10 mg Senna (Senna -) 2 tab PO HS PRN PRN Reason: CONSTIPATION Last Admin: 05/09/17 22:40 Dose: 2 tab Torsemide (Demadex -) 40 mg PO DAILY [facility] Last Admin: 05/10/17 10:19 Dose: 40 mg - Objective Vital Signs: Vital Signs Temperature 36.7 C 05/10/17 09:48 Pulse Rate 68 05/10/17 09:48 Respiratory Rate 18 05/10/17 09:48 Blood Pressure 150/76 05/10/17 09:48 O2 Sat by Pulse Oximetry (%) 99 05/10/17 09:00 Constitutional: Yes: No Distress, Calm, Obese Cardiovascular: Yes: Regular Rate and Rhythm. No: Gallop, Murmur, Rub Respiratory: Yes: Regular, CTA Bilaterally. No: Rales, Rhonchi, Wheezes Gastrointestinal: Yes: Normal Bowel Sounds, Soft. No: Distention, Tenderness Extremities: Yes: Other (deep ulceration of R foot) Edema: Yes Edema: LLE: 2+, RLE: 2+ Labs: CBC, BMP 05/10/17 06:00 05/10/17 06:00 INR, PTT INR 1.05 (0.82-1.09) 05/03/17 17:45 Problem List - Problems (1) Severe sepsis Code(s): A41.9 - SEPSIS, UNSPECIFIED ORGANISM R65.20 - SEVERE SEPSIS WITHOUT SEPTIC SHOCK (2) Diabetic foot ulcer Code(s): E11.621 - TYPE 2 DIABETES MELLITUS WITH FOOT ULCER L97.509 - NON-PRESSURE CHRONIC ULCER OTH PRT UNSP FOOT W UNSP SEVERITY Qualifiers: Diabetic foot ulcer location: heel Diabetes mellitus type: type 2 Laterality: right Non-pressure ulcer stage: with necrosis of muscle Qualified Code(s): E11.621 - Type 2 diabetes mellitus with foot ulcer; L97.509 - Non-pressure chronic ulcer of other part of unspecified foot with unspecified severity (3) Metabolic encephalopathy Code(s): G93.41 - METABOLIC ENCEPHALOPATHY (4) CML (chronic myelocytic leukemia) Code(s): C92.10 - CHRONIC MYELOID LEUK, BCR/ABL-POSITIVE, NOT ACHIEVE REMIS (5) Diabetes Code(s): E11.9 - TYPE 2 DIABETES MELLITUS WITHOUT COMPLICATIONS (6) CHF (congestive heart failure) Code(s): I50.9 - HEART FAILURE, UNSPECIFIED Qualifiers: Congestive heart failure type: diastolic Congestive heart failure chronicity: chronic Qualified Code(s): I50.32 - Chronic diastolic ( congestive) heart failure (7) COPD (chronic obstructive pulmonary disease) Code(s): J44.9 - CHRONIC OBSTRUCTIVE PULMONARY DISEASE, UNSPECIFIED (8) Hypertension Code(s): I10 - ESSENTIAL (PRIMARY) HYPERTENSION (9) Hypothyroid Code(s): E03.9 - HYPOTHYROIDISM, UNSPECIFIED Assessment/Plan (1) Severe sepsis Assessment/Plan: -resolved -secondary to osteomyelitis -holding antibiotics for bone biopsy Code(s): A41.9 - SEPSIS, UNSPECIFIED ORGANISM R65.20 - SEVERE SEPSIS WITHOUT SEPTIC SHOCK (2) Diabetic foot ulcer with osteomyelitis Assessment/Plan: -planning for bone biopsy today -holding antibiotics until after biopsy -will need intermediate card tender antibiotics Code(s): E11.621 - TYPE 2 DIABETES MELLITUS WITH FOOT ULCER L97.509 - NON-PRESSURE CHRONIC ULCER OTH PRT UNSP FOOT W UNSP SEVERITY Qualifiers: Diabetic foot ulcer location: heel Diabetes mellitus type: type 2 Laterality: right Non-pressure ulcer stage: with necrosis of muscle Qualified Code(s): E11.621 - Type 2 diabetes mellitus with foot ulcer; L97.509 - Non-pressure chronic ulcer of other part of unspecified foot with unspecified severity (3) Metabolic encephalopathy Assessment/Plan: -resolved Code(s): G93.41 - METABOLIC ENCEPHALOPATHY (4) CML (chronic myelocytic leukemia) Assessment/Plan: -oncology following Code(s): C92.10 - CHRONIC MYELOID LEUK, BCR/ABL-POSITIVE, NOT ACHIEVE REMIS (5) Diabetes Assessment/Plan: -diabetic diet -continue levemir -FSBS and SSI Code(s): E11.9 - TYPE 2 DIABETES MELLITUS WITHOUT COMPLICATIONS (6) CHF (congestive heart failure) Assessment/Plan: -continue torsemide Code(s): I50.9 - HEART FAILURE, UNSPECIFIED Qualifiers: Congestive heart failure type: diastolic Congestive heart failure chronicity: chronic Qualified Code(s): I50.32 - Chronic diastolic ( congestive) heart failure (7) COPD (chronic obstructive pulmonary disease) Assessment/Plan: -not in exacerbation -continue home regimen Code(s): J44.9 - CHRONIC OBSTRUCTIVE PULMONARY DISEASE, UNSPECIFIED (8) Hypertension Assessment/Plan: -improved with cessation of IVF and restarting torsemide -observe, may need to adjust Code(s): I10 - ESSENTIAL (PRIMARY) HYPERTENSION (9) Hypothyroid Assessment/Plan: -continue synthroid Code(s): E03.9 - HYPOTHYROIDISM, UNSPECIFIED
--- NOTE | 2017-05-10 13:26 | PN ---
Progress Note, Physician History of Present Illness: stable patient for biopsy today no issues comfortable - Current Medication List Current Medications: Active Medications Acetaminophen (Tylenol -) 650 mg PO Q6H PRN PRN Reason: FEVER OR PAIN Last Admin: 05/09/17 00:11 Dose: 650 mg Albuterol Sulfate (Ventolin Hfa Inhaler -) 2 puff IH Q6H PRN PRN Reason: SHORT OF BREATH/WHEEZING Aspirin (Asa -) 81 mg PO DAILY [facility] Last Admin: 05/10/17 10:20 Dose: Not Given Collagenase (Santyl -) 1 applic TP DAILY [facility] Last Admin: 05/10/17 10:45 Dose: 1 applic Docusate Sodium (Colace -) 300 mg PO HS [facility] Last Admin: 05/09/17 22:40 Dose: 300 mg Enoxaparin Sodium (Lovenox -) 40 mg SQ DAILY [facility] Last Admin: 05/10/17 10:20 Dose: Not Given Gabapentin (Neurontin -) 600 mg PO TID [facility] Last Admin: 05/10/17 05:25 Dose: 600 mg Insulin Aspart (Novolog Vial Sliding Scale -) [address] [facility] PRN Reason: Protocol Last Admin: 05/10/17 12:11 Dose: 2 units Insulin Detemir (Levemir Vial) 10 units SQ HS [facility] Last Admin: 05/09/17 22:44 Dose: Not Given Levothyroxine Sodium (Synthroid -) 25 mcg PO DAILY@0700 [facility] Last Admin: 05/10/17 06:35 Dose: 25 mcg Lisinopril (Prinivil) 20 mg PO DAILY [facility] Last Admin: 05/10/17 10:20 Dose: 20 mg Tasigna 150mg Capsules-Patient's Own Medication (Non- Formulary) 2 each PO BID [facility] Last Admin: 05/10/17 10:20 Dose: 2 each Oxycodone HCl (Roxicodone -) 10 mg PO Q4H PRN PRN Reason: PAIN Last Admin: 05/10/17 10:45 Dose: 10 mg Senna (Senna -) 2 tab PO HS PRN PRN Reason: CONSTIPATION Last Admin: 05/09/17 22:40 Dose: 2 tab Torsemide (Demadex -) 40 mg PO DAILY [facility] Last Admin: 05/10/17 10:19 Dose: 40 mg - Objective Vital Signs: Vital Signs Temperature 98.1 F 09/06/17 09:48 Pulse Rate 68 05/10/17 09:48 Respiratory Rate 18 05/10/17 09:48 Blood Pressure 150/76 05/10/17 09:48 O2 Sat by Pulse Oximetry (%) 99 05/10/17 09:00 Constitutional: Yes: No Distress, Calm, Obese Cardiovascular: Yes: Regular Rate and Rhythm Respiratory: Yes: Regular, CTA Bilaterally Gastrointestinal: Yes: Normal Bowel Sounds, Soft Musculoskeletal: Yes: Other Extremities: Yes: Other Wound/Incision: Yes: Dressing Dry and Intact Neurological: Yes: Alert, Oriented Labs: CBC, BMP 05/10/17 06:00 05/10/17 06:00 INR, PTT INR 1.05 (0.82-1.09) 05/03/17 17:45 Assessment/Plan Problem List - Problems (1) Severe sepsis Code(s): A41.9 - SEPSIS, UNSPECIFIED ORGANISM R65.20 - SEVERE SEPSIS WITHOUT SEPTIC SHOCK (2) Diabetic foot ulcer Code(s): E11.621 - TYPE 2 DIABETES MELLITUS WITH FOOT ULCER L97.509 - NON-PRESSURE CHRONIC ULCER OTH PRT UNSP FOOT W UNSP SEVERITY Qualifiers: Diabetic foot ulcer location: heel Diabetes mellitus type: type 2 Laterality: right Non-pressure ulcer stage: with necrosis of muscle Qualified Code(s): E11.621 - Type 2 diabetes mellitus with foot ulcer; L97.509 - Non-pressure chronic ulcer of other part of unspecified foot with unspecified severity (3) Metabolic encephalopathy Code(s): G93.41 - METABOLIC ENCEPHALOPATHY (4) CML (chronic myelocytic leukemia) Code(s): C92.10 - CHRONIC MYELOID LEUK, BCR/ABL-POSITIVE, NOT ACHIEVE REMIS (5) Diabetes Code(s): E11.9 - TYPE 2 DIABETES MELLITUS WITHOUT COMPLICATIONS (6) CHF (congestive heart failure) Code(s): I50.9 - HEART FAILURE, UNSPECIFIED Qualifiers: Congestive heart failure type: diastolic Congestive heart failure chronicity: chronic Qualified Code(s): I50.32 - Chronic diastolic ( congestive) heart failure (7) COPD (chronic obstructive pulmonary disease) Code(s): J44.9 - CHRONIC OBSTRUCTIVE PULMONARY DISEASE, UNSPECIFIED (8) Hypertension Code(s): I10 - ESSENTIAL (PRIMARY) HYPERTENSION (9) Hypothyroid Code(s): E03.9 - HYPOTHYROIDISM, UNSPECIFIED 10 leukocytosis 11 bilateral cellulitits of the legs plan abx on hold await for biopsy once biopsy then will restart abx rest as per primary team
[2017-05-10] MEDS: DOCUSATE SODIUM 100 MG CAPSULE (FP) PO SCH (21:33)
[2017-05-10] MEDS: INSULIN DETEMIR 100 UNITS/ML MDV SQ SCH (21:38)
[2017-05-11] MEDS: GABAPENTIN 300 MG CAPSULE (FP) PO SCH ×3 (06:25→21:35)
[2017-05-11] MEDS: LEVOTHYROXINE NA 25 MCG TABLET (FP) PO SCH (06:26)
[2017-05-11] MEDS: INSULIN SLIDING SCALE (NOVOLOG) 1 VIAL SQ SCH ×4 (06:26→21:56)
[2017-05-11] MEDS ORDERED: INSULIN DETEMIR 100 UNITS/ML MDV SQ ONE (06:50)
[2017-05-11] MEDS ORDERED: INSULIN (NOVOLOG) ASPART 100 UNITS/ML 10ML VIAL ONE ×2 (06:50→21:24)
[2017-05-11 07:36] LABS: BASOPHIL 0.4 % (0-2.0); EOSINOPHIL 3.3 % (0-4.5); MCH 28.4 pg (25.7-33.7); MCHC 32.7 g/dl (32.0-36.0); MEAN CELL VOLUME 86.7 fl (80-96); MEAN PLT VOLUME 8.2 fl (7.5-11.1); NEUTROPHILS 60.1 % (42.8-82.8); PLATELET COUNT 162 K/MM3 (134-434); RDW 16.6 % (11.6-15.6); WHITE BLOOD COUNT 3.4 K/mm3 (4.0-10.0)
[2017-05-11 07:53] LABS: ANION GAP 6 (8-16); CALCIUM 8.3 mg/dL (8.5-10.1); CO2 35 mmol/L (21-32); CREATININE 0.4 mg/dL (0.55-1.02); GLUCOSE,RANDOM 91 mg/dL (74-106); MAGNESIUM 1.6 mg/dL (1.8-2.4); PHOSPHOROUS 4.1 mg/dL (2.5-4.9)
[2017-05-11] MEDS: oxyCODONE HCL 5 MG TABLET PO PRN ×3 (08:40→21:57)
[2017-05-11] MEDS: ACETAMINOPHEN 325 MG TABLET (FP) PO PRN ×2 (08:42→16:14)
[2017-05-11] MEDS: ASPIRIN 81 MG CHEWABLE TABLETS PO SCH (11:20)
[2017-05-11] MEDS: TORSEMIDE 20 MG TABLET (FP) PO SCH (11:20)
[2017-05-11] MEDS: ENOXAPARIN NA (PORCINE) 40 MG/0.4 ML DISP.SYRIN SQ SCH (11:20)
[2017-05-11] MEDS: LISINOPRIL 20 MG TABLET (FP) PO SCH (11:21)
[2017-05-11] MEDS: TASIGNA 150 MG PO SCH ×2 (11:23→21:36)
--- NOTE | 2017-05-11 12:25 | PN ---
Progress Note (short form) - Note Progress Note: Podiatry: Seen/evaluated at bedside, NAD. Remains comfortable. Denies F/V/N/C/SOB/CP. Afebrile, VSS. MELANI: R foot: inferior heel DM ulcer with mostly granular base, small area of fibrotic tissue, medial aspect of wound probes to bone, no purulence, no fluctuance, no ascending cellulitis, no soft tissue crepitus, no signs of active infection. Minimal tenderness to palpation. Lower leg cellulitis improving. WBC: 3.4 MRI R foot: chronic osteomyelitis calcaneus Wound Cx: MRSA Imp: 66 year old DM F with R heel ulcer and osteomyelitis 1. IV abx on hold for biopsy 2. Heel offloading 3. Continue local wound care rx 4. For OR debridement and bone biopsy tomorrow am. NPO at midnight. 5. Will restart abx post-operatively and follow. Michaela Farmer DPM
--- NOTE | 2017-05-11 12:48 | PN ---
Progress Note, Physician History of Present Illness: stable no new issues - Current Medication List Current Medications: Active Medications Acetaminophen (Tylenol -) 650 mg PO Q6H PRN PRN Reason: FEVER OR PAIN Last Admin: 05/11/17 08:42 Dose: 650 mg Albuterol Sulfate (Ventolin Hfa Inhaler -) 2 puff IH Q6H PRN PRN Reason: SHORT OF BREATH/WHEEZING Aspirin (Asa -) 81 mg PO DAILY [facility] Last Admin: 05/11/17 11:20 Dose: 81 mg Collagenase (Santyl -) 1 applic TP DAILY [facility] Last Admin: 05/10/17 10:45 Dose: 1 applic Docusate Sodium (Colace -) 300 mg PO HS [facility] Last Admin: 05/10/17 21:33 Dose: 300 mg Enoxaparin Sodium (Lovenox -) 40 mg SQ DAILY [facility] Last Admin: 05/11/17 11:20 Dose: 40 mg Gabapentin (Neurontin -) 600 mg PO TID [facility] Last Admin: 05/11/17 06:25 Dose: 600 mg Insulin Aspart (Novolog Vial Sliding Scale -) 1 vial SQ [facility] PRN Reason: Protocol Last Admin: 05/11/17 12:25 Dose: Not Given Insulin Detemir (Levemir Vial) 10 units SQ HS [facility] Last Admin: 05/10/17 21:38 Dose: 10 unit Levothyroxine Sodium (Synthroid -) 25 mcg PO DAILY@0700 [facility] Last Admin: 05/11/17 06:26 Dose: 25 mcg Lisinopril (Prinivil) 20 mg PO DAILY [facility] Last Admin: 05/11/17 11:21 Dose: 20 mg Tasigna 150mg Capsules-Patient's Own Medication (Non- Formulary) 2 each PO BID [facility] Last Admin: 05/11/17 11:23 Dose: 2 each Oxycodone HCl (Roxicodone -) 10 mg PO Q4H PRN PRN Reason: PAIN Last Admin: 05/11/17 08:40 Dose: 10 mg Senna (Senna -) 2 tab PO HS PRN PRN Reason: CONSTIPATION Last Admin: 05/09/17 22:40 Dose: 2 tab Torsemide (Demadex -) 40 mg PO DAILY [facility] Last Admin: 05/11/17 11:20 Dose: 40 mg - Objective Vital Signs: Vital Signs Temperature 98 F 05/10/17 22:00 Pulse Rate 71 05/10/17 22:00 Respiratory Rate 20 05/10/17 22:00 Blood Pressure 177/77 05/11/17 11:33 O2 Sat by Pulse Oximetry (%) 96 05/10/17 20:21 Constitutional: Yes: No Distress, Calm HENT: Yes: Atraumatic, Normocephalic Cardiovascular: Yes: Regular Rate and Rhythm Respiratory: Yes: Regular, CTA Bilaterally Gastrointestinal: Yes: Normal Bowel Sounds, Soft Musculoskeletal: Yes: Other Extremities: Yes: Other Neurological: Yes: Alert, Oriented Psychiatric: Yes: Alert, Oriented Labs: CBC, BMP 05/11/17 06:00 05/11/17 06:00 INR, PTT INR 1.05 (0.82-1.09) 05/03/17 17:45 Assessment/Plan Problem List - Problems (1) Severe sepsis Code(s): A41.9 - SEPSIS, UNSPECIFIED ORGANISM R65.20 - SEVERE SEPSIS WITHOUT SEPTIC SHOCK (2) Diabetic foot ulcer Code(s): E11.621 - TYPE 2 DIABETES MELLITUS WITH FOOT ULCER L97.509 - NON-PRESSURE CHRONIC ULCER OTH PRT UNSP FOOT W UNSP SEVERITY Qualifiers: Diabetic foot ulcer location: heel Diabetes mellitus type: type 2 Laterality: right Non-pressure ulcer stage: with necrosis of muscle Qualified Code(s): E11.621 - Type 2 diabetes mellitus with foot ulcer; L97.509 - Non-pressure chronic ulcer of other part of unspecified foot with unspecified severity (3) Metabolic encephalopathy Code(s): G93.41 - METABOLIC ENCEPHALOPATHY (4) CML (chronic myelocytic leukemia) Code(s): C92.10 - CHRONIC MYELOID LEUK, BCR/ABL-POSITIVE, NOT ACHIEVE REMIS (5) Diabetes Code(s): E11.9 - TYPE 2 DIABETES MELLITUS WITHOUT COMPLICATIONS (6) CHF (congestive heart failure) Code(s): I50.9 - HEART FAILURE, UNSPECIFIED Qualifiers: Congestive heart failure type: diastolic Congestive heart failure chronicity: chronic Qualified Code(s): I50.32 - Chronic diastolic ( congestive) heart failure (7) COPD (chronic obstructive pulmonary disease) Code(s): J44.9 - CHRONIC OBSTRUCTIVE PULMONARY DISEASE, UNSPECIFIED (8) Hypertension Code(s): I10 - ESSENTIAL (PRIMARY) HYPERTENSION (9) Hypothyroid Code(s): E03.9 - HYPOTHYROIDISM, UNSPECIFIED 10 leukocytosis 11 bilateral cellulitits of the legs plan abx on hold await for biopsy biopsy tomorrow rest as per primary
[2017-05-11] MEDS ORDERED: TORSEMIDE 20 MG TABLET (FP) PO SCH (14:15)
--- NOTE | 2017-05-11 15:09 | PN ---
Progress Note, Physician Chief Complaint: Ms Hernandez is without complaint. No cp, sob, n/v. - Current Medication List Current Medications: Active Medications Acetaminophen (Tylenol -) 650 mg PO Q6H PRN PRN Reason: FEVER OR PAIN Last Admin: 05/11/17 08:42 Dose: 650 mg Albuterol Sulfate (Ventolin Hfa Inhaler -) 2 puff IH Q6H PRN PRN Reason: SHORT OF BREATH/WHEEZING Aspirin (Asa -) 81 mg PO DAILY [facility] Last Admin: 05/11/17 11:20 Dose: 81 mg Collagenase (Santyl -) 1 applic TP DAILY [facility] Last Admin: 05/10/17 10:45 Dose: 1 applic Docusate Sodium (Colace -) 300 mg PO HS [facility] Last Admin: 05/10/17 21:33 Dose: 300 mg Enoxaparin Sodium (Lovenox -) 40 mg SQ DAILY [facility] Last Admin: 05/11/17 11:20 Dose: 40 mg Gabapentin (Neurontin -) 600 mg PO TID [facility] Last Admin: 05/11/17 06:25 Dose: 600 mg Insulin Aspart (Novolog Vial Sliding Scale -) [address] [facility] PRN Reason: Protocol Last Admin: 05/11/17 12:25 Dose: Not Given Insulin Detemir (Levemir Vial) 10 units SQ [facility] Last Admin: 05/10/17 21:38 Dose: 10 unit Levothyroxine Sodium (Synthroid -) 25 mcg PO DAILY@0700 [facility] Last Admin: 05/11/17 06:26 Dose: 25 mcg Lisinopril (Prinivil) 20 mg PO BID [facility] Tasigna 150mg Capsules-Patient's Own Medication (Non- Formulary) 2 each PO BID [facility] Last Admin: 05/11/17 11:23 Dose: 2 each Oxycodone HCl (Roxicodone -) 10 mg PO Q4H PRN PRN Reason: PAIN Last Admin: 05/11/17 08:40 Dose: 10 mg Senna (Senna -) 2 tab PO HS PRN PRN Reason: CONSTIPATION Last Admin: 05/09/17 22:40 Dose: 2 tab Torsemide (Demadex -) 40 mg PO BID@0600,1400 [facility] - Objective Vital Signs: Vital Signs Temperature 36.9 C 05/11/17 14:23 Pulse Rate 68 05/11/17 14:23 Respiratory Rate 20 05/11/17 14:23 Blood Pressure 145/67 05/11/17 14:23 O2 Sat by Pulse Oximetry (%) 96 05/10/17 20:21 Constitutional: Yes: No Distress, Calm, Obese Cardiovascular: Yes: Regular Rate and Rhythm. No: Gallop, Murmur, Rub Respiratory: Yes: Regular, CTA Bilaterally. No: Rales, Rhonchi, Wheezes Gastrointestinal: Yes: Normal Bowel Sounds, Soft. No: Distention, Tenderness Extremities: Yes: Other (wrapped) Edema: Yes Edema: LLE: 1+, RLE: 1+ Labs: CBC, BMP 05/11/17 06:00 05/11/17 06:00 INR, PTT INR 1.05 (0.82-1.09) 05/03/17 17:45 Problem List - Problems (1) Severe sepsis Code(s): A41.9 - SEPSIS, UNSPECIFIED ORGANISM R65.20 - SEVERE SEPSIS WITHOUT SEPTIC SHOCK (2) Diabetic foot ulcer Code(s): E11.621 - TYPE 2 DIABETES MELLITUS WITH FOOT ULCER L97.509 - NON-PRESSURE CHRONIC ULCER OTH PRT UNSP FOOT W UNSP SEVERITY Qualifiers: Diabetic foot ulcer location: heel Diabetes mellitus type: type 2 Laterality: right Non-pressure ulcer stage: with necrosis of muscle Qualified Code(s): E11.621 - Type 2 diabetes mellitus with foot ulcer; L97.509 - Non-pressure chronic ulcer of other part of unspecified foot with unspecified severity (3) Metabolic encephalopathy Code(s): G93.41 - METABOLIC ENCEPHALOPATHY (4) CML (chronic myelocytic leukemia) Code(s): C92.10 - CHRONIC MYELOID LEUK, BCR/ABL-POSITIVE, NOT ACHIEVE REMIS (5) Diabetes Code(s): E11.9 - TYPE 2 DIABETES MELLITUS WITHOUT COMPLICATIONS (6) CHF (congestive heart failure) Code(s): I50.9 - HEART FAILURE, UNSPECIFIED Qualifiers: Congestive heart failure type: diastolic Congestive heart failure chronicity: chronic Qualified Code(s): I50.32 - Chronic diastolic ( congestive) heart failure (7) COPD (chronic obstructive pulmonary disease) Code(s): J44.9 - CHRONIC OBSTRUCTIVE PULMONARY DISEASE, UNSPECIFIED (8) Hypertension Code(s): I10 - ESSENTIAL (PRIMARY) HYPERTENSION (9) Hypothyroid Code(s): E03.9 - HYPOTHYROIDISM, UNSPECIFIED Assessment/Plan (1) Severe sepsis Assessment/Plan: -resolved -secondary to osteomyelitis -holding antibiotics for bone biopsy Code(s): A41.9 - SEPSIS, UNSPECIFIED ORGANISM R65.20 - SEVERE SEPSIS WITHOUT SEPTIC SHOCK (2) Diabetic foot ulcer with osteomyelitis Assessment/Plan: -planning for bone biopsy tomorrow -holding antibiotics until after biopsy -will need nursing home antibiotics Code(s): E11.621 - TYPE 2 DIABETES MELLITUS WITH FOOT ULCER L97.509 - NON-PRESSURE CHRONIC ULCER OTH PRT UNSP FOOT W UNSP SEVERITY Qualifiers: Diabetic foot ulcer location: heel Diabetes mellitus type: type 2 Laterality: right Non-pressure ulcer stage: with necrosis of muscle Qualified Code(s): E11.621 - Type 2 diabetes mellitus with foot ulcer; L97.509 - Non-pressure chronic ulcer of other part of unspecified foot with unspecified severity (3) Metabolic encephalopathy Assessment/Plan: -resolved Code(s): G93.41 - METABOLIC ENCEPHALOPATHY (4) CML (chronic myelocytic leukemia) Assessment/Plan: -oncology following Code(s): C92.10 - CHRONIC MYELOID LEUK, BCR/ABL-POSITIVE, NOT ACHIEVE REMIS (5) Diabetes Assessment/Plan: -diabetic diet -continue levemir -FSBS and SSI Code(s): E11.9 - TYPE 2 DIABETES MELLITUS WITHOUT COMPLICATIONS (6) CHF (congestive heart failure) Assessment/Plan: -continue torsemide Code(s): I50.9 - HEART FAILURE, UNSPECIFIED Qualifiers: Congestive heart failure type: diastolic Congestive heart failure chronicity: chronic Qualified Code(s): I50.32 - Chronic diastolic ( congestive) heart failure (7) COPD (chronic obstructive pulmonary disease) Assessment/Plan: -not in exacerbation -continue home regimen Code(s): J44.9 - CHRONIC OBSTRUCTIVE PULMONARY DISEASE, UNSPECIFIED (8) Hypertension Assessment/Plan: -elevated today -patient refused to take torsemide bid -change lisinopril to bid Code(s): I10 - ESSENTIAL (PRIMARY) HYPERTENSION (9) Hypothyroid Assessment/Plan: -continue synthroid Code(s): E03.9 - HYPOTHYROIDISM, UNSPECIFIED
[2017-05-11] MEDS: COLLAGENASE CLOSTRIDIUM HIST. 30 GRAMS TUBE TP SCH (18:15)
[2017-05-11] MEDS: DOCUSATE SODIUM 100 MG CAPSULE (FP) PO SCH (21:35)
[2017-05-11] MEDS: INSULIN DETEMIR 100 UNITS/ML MDV SQ SCH (21:55)
[2017-05-11] MEDS ORDERED: LISINOPRIL 20 MG TABLET (FP) PO SCH (22:00)
[2017-05-12] MEDS: oxyCODONE HCL 5 MG TABLET PO PRN ×4 (02:26→20:31)
[2017-05-12] MEDS: ACETAMINOPHEN 325 MG TABLET (FP) PO PRN (02:27)
[2017-05-12] MEDS: LEVOTHYROXINE NA 25 MCG TABLET (FP) PO SCH (06:29)
[2017-05-12] MEDS: GABAPENTIN 300 MG CAPSULE (FP) PO SCH ×3 (06:29→22:11)
[2017-05-12] MEDS: INSULIN SLIDING SCALE (NOVOLOG) 1 VIAL SQ SCH ×4 (06:34→22:07)
[2017-05-12 07:52] LABS: BASOPHIL 0.4 % (0-2.0); EOSINOPHIL 2.7 % (0-4.5); MCH 28.7 pg (25.7-33.7); MEAN CELL VOLUME 86.8 fl (80-96); MEAN PLT VOLUME 8.5 fl (7.5-11.1); NEUTROPHILS 64.7 % (42.8-82.8); PLATELET COUNT 175 K/MM3 (134-434); RDW 17.1 % (11.6-15.6); WHITE BLOOD COUNT 3.6 K/mm3 (4.0-10.0)
[2017-05-12 08:36] LABS: ANION GAP 9 (8-16); CALCIUM 8.3 mg/dL (8.5-10.1); CO2 32 mmol/L (21-32); CREATININE 0.6 mg/dL (0.55-1.02); GLUCOSE,RANDOM 190 mg/dL (74-106); MAGNESIUM 1.6 mg/dL (1.8-2.4); PHOSPHOROUS 3.7 mg/dL (2.5-4.9)
[2017-05-12] MEDS ORDERED: LIDOCAINE HCL 2% (20ML MULTI-DOSE VIAL) NR ONE (08:43)
[2017-05-12] MEDS ORDERED: LACTATED RINGERS SOLUTION 1,000 ML IV SCH ×2 (09:00→09:54)
[2017-05-12] MEDS ORDERED: PROPOFOL 20 ML ONE (09:08)
[2017-05-12] MEDS ORDERED: LIDOCAINE HCL 2% (50ML VIAL) INF ONE ×2 (09:08→09:20)
[2017-05-12] MEDS ORDERED: MIDAZOLAM HCL 2 MG/2 ML SINGLE DOSE VIAL ONE (09:09)
--- NOTE | 2017-05-12 09:43 | OP ---
Operative Note - Note: Operative Date: 05/12/17 Pre-Operative Diagnosis: R heel DM ulcer and chronic osteomyelitis Operation: R heel debridement abd bone biopsy Post-Operative Diagnosis: Same as Pre-op Surgeon: Jono Farmer Anesthesia: Local, MAC Specimens Removed: bone right foot Estimated Blood Loss (mls): 5 Instrument used (Debridements only): rongeur and curette Operative Report Dictated: Yes
--- NOTE | 2017-05-12 09:46 | PATH ---
Surgical Pathology Report Patient Name: XIAO HAGEN Med. Rec. #: [id number] /Age/Gender: 1950 (Age: 66) / F Account: [id number] Location: [facility] MED/SURG Taken: 05/09/2017 Received: 05/09/2017 Reported: 05/12/2017 Physicians: Meghna Watson M.D. Specimen(s) Received PERIPHERAL BLOOD 2 LAVENDER TOPS Clinical History r/o MPN Final Diagnosis BCR-ABL GENE REARRANGEMENT-QUANTITATIVE REAL TIME PCR ANALYSIS (IS) PERFORMED AND INTERPRETED AT [place], [place] ([id number]) SHOWED THE FOLLOWING: RESULTS: NEGATIVE BCR/ABL MAJOR BREAKPOINTS (b2a2 AND b3a2): NOT DETECTED. BCR/ABL MINOR BREAKPOINT (e1a2): NOT DETECTED. INTERPRETATION: NO BCR-ABL TRANSLOCATION WAS DETECTED IN THIS SAMPLE. Electronically Signed Miguel Carlton M.D. Gross Description Received are two purple top tubes; forwarded for further studies.
[2017-05-12] MEDS ORDERED: ALBUTEROL SO4 6.7 GM HFA INHALER IH PRN (09:54)
[2017-05-12] MEDS ORDERED: ACETAMINOPHEN 325 MG TABLET (FP) PO PRN (09:54)
[2017-05-12] MEDS ORDERED: SENNOSIDES 8.6MG TABLET (FP) PO PRN (09:54)
[2017-05-12] MEDS ORDERED: ENOXAPARIN NA (PORCINE) 40 MG/0.4 ML DISP.SYRIN SQ SCH (10:00)
[2017-05-12] MEDS ORDERED: TORSEMIDE 20 MG TABLET (FP) PO SCH (10:00)
[2017-05-12] MEDS: ASPIRIN 81 MG CHEWABLE TABLETS PO SCH (11:28)
[2017-05-12] MEDS: TORSEMIDE 20 MG TABLET (FP) PO SCH (11:33)
[2017-05-12] MEDS: LISINOPRIL 20 MG TABLET (FP) PO SCH ×2 (11:34→22:09)
[2017-05-12] MEDS: COLLAGENASE CLOSTRIDIUM HIST. 30 GRAMS TUBE TP SCH (11:43)
[2017-05-12] MEDS: MAGNESIUM OXIDE 400 MG TABLET (FP) PO SCH ×2 (12:07→22:08)
[2017-05-12] MEDS ORDERED: PICC LINE 8 ML FLUSH PROTOCOL IVPUSH PRN (12:26)
--- NOTE | 2017-05-12 12:34 | PN ---
Progress Note, Physician Chief Complaint: Ms Hernandez is without complaint. No cp, sob, n/v. - Current Medication List Current Medications: Active Medications Acetaminophen (Tylenol -) 650 mg PO Q6H PRN PRN Reason: FEVER OR PAIN Albuterol Sulfate (Ventolin Hfa Inhaler -) 2 puff IH Q6H PRN PRN Reason: SHORT OF BREATH/WHEEZING Aspirin (Asa -) 81 mg PO DAILY [facility] Last Admin: 05/12/17 11:28 Dose: Not Given Collagenase (Santyl -) 1 applic TP DAILY [facility] Last Admin: 05/12/17 11:43 Dose: Not Given Docusate Sodium (Colace -) 300 mg PO HS [facility] Enoxaparin Sodium (Lovenox -) 40 mg SQ DAILY [facility] Fentanyl (Sublimaze Injection -) 25 mcg IVPUSH [id number] PRN PRN Reason: PAIN Stop: 05/15/17 08:48 Last Admin: 05/12/17 10:15 Dose: 25 mcg Gabapentin (Neurontin -) 600 mg PO TID [facility] IV Flush (Picc Line Flush) 8 ml IVPUSH PRN PRN PRN Reason: Protocol Insulin Aspart (Novolog Vial Sliding Scale -) 1 vial SQ ACHS [facility] PRN Reason: Protocol Last Admin: 05/12/17 11:42 Dose: Not Given Insulin Detemir (Levemir Vial) 10 units SQ HS [facility] Levothyroxine Sodium (Synthroid -) 25 mcg PO DAILY@0700 [facility] Lisinopril (Prinivil) 20 mg PO BID [facility] Last Admin: 05/12/17 11:34 Dose: 20 mg Magnesium Oxide (Mag-Ox -) 400 mg PO BID [facility] Last Admin: 05/12/17 12:07 Dose: 400 mg Metformin HCl (Glucophage -) 1,000 mg PO BID@0700,1630 [facility] Non-Formulary Medication (Patient's Own Med) 2 each PO BID [facility] Last Admin: 05/12/17 11:28 Dose: 2 each Oxycodone HCl (Roxicodone -) 10 mg PO Q4H PRN PRN Reason: PAIN Last Admin: 05/12/17 11:26 Dose: 10 mg Senna (Senna -) 2 tab PO HS PRN PRN Reason: CONSTIPATION Torsemide (Demadex -) 40 mg PO DAILY [facility] Last Admin: 05/12/17 11:33 Dose: 40 mg - Objective Vital Signs: Vital Signs Temperature 36.7 C 05/12/17 11:46 Pulse Rate 67 05/12/17 11:46 Respiratory Rate 20 05/12/17 11:46 Blood Pressure 148/64 05/12/17 11:46 O2 Sat by Pulse Oximetry (%) 100 05/12/17 10:45 Constitutional: Yes: No Distress, Calm, Obese Cardiovascular: Yes: Regular Rate and Rhythm. No: Gallop, Murmur, Rub Respiratory: Yes: Regular, CTA Bilaterally. No: Rales, Rhonchi, Wheezes Gastrointestinal: Yes: Normal Bowel Sounds, Soft. No: Distention, Tenderness Extremities: Yes: WNL Edema: No Labs: CBC, BMP 05/12/17 07:24 05/12/17 07:24 INR, PTT INR 1.05 (0.82-1.09) 05/03/17 17:45 Problem List - Problems (1) Severe sepsis Code(s): A41.9 - SEPSIS, UNSPECIFIED ORGANISM R65.20 - SEVERE SEPSIS WITHOUT SEPTIC SHOCK (2) Diabetic foot ulcer Code(s): E11.621 - TYPE 2 DIABETES MELLITUS WITH FOOT ULCER L97.509 - NON-PRESSURE CHRONIC ULCER OTH PRT UNSP FOOT W UNSP SEVERITY Qualifiers: Diabetic foot ulcer location: heel Diabetes mellitus type: type 2 Laterality: right Non-pressure ulcer stage: with necrosis of muscle Qualified Code(s): E11.621 - Type 2 diabetes mellitus with foot ulcer; L97.509 - Non-pressure chronic ulcer of other part of unspecified foot with unspecified severity (3) Metabolic encephalopathy Code(s): G93.41 - METABOLIC ENCEPHALOPATHY (4) CML (chronic myelocytic leukemia) Code(s): C92.10 - CHRONIC MYELOID LEUK, BCR/ABL-POSITIVE, NOT ACHIEVE REMIS (5) Diabetes Code(s): E11.9 - TYPE 2 DIABETES MELLITUS WITHOUT COMPLICATIONS (6) CHF (congestive heart failure) Code(s): I50.9 - HEART FAILURE, UNSPECIFIED Qualifiers: Congestive heart failure type: diastolic Congestive heart failure chronicity: chronic Qualified Code(s): I50.32 - Chronic diastolic ( congestive) heart failure (7) COPD (chronic obstructive pulmonary disease) Code(s): J44.9 - CHRONIC OBSTRUCTIVE PULMONARY DISEASE, UNSPECIFIED (8) Hypertension Code(s): I10 - ESSENTIAL (PRIMARY) HYPERTENSION (9) Hypothyroid Code(s): E03.9 - HYPOTHYROIDISM, UNSPECIFIED Assessment/Plan (1) Severe sepsis Assessment/Plan: -resolved -secondary to osteomyelitis -restart antibiotics Code(s): A41.9 - SEPSIS, UNSPECIFIED ORGANISM R65.20 - SEVERE SEPSIS WITHOUT SEPTIC SHOCK (2) Diabetic foot ulcer with osteomyelitis Assessment/Plan: -bone biopsy today -restart antibiotics -PICC line placement -plan for discharge tomorrow to [facility] Code(s): E11.621 - TYPE 2 DIABETES MELLITUS WITH FOOT ULCER L97.509 - NON-PRESSURE CHRONIC ULCER OTH PRT UNSP FOOT W UNSP SEVERITY Qualifiers: Diabetic foot ulcer location: heel Diabetes mellitus type: type 2 Laterality: right Non-pressure ulcer stage: with necrosis of muscle Qualified Code(s): E11.621 - Type 2 diabetes mellitus with foot ulcer; L97.509 - Non-pressure chronic ulcer of other part of unspecified foot with unspecified severity (3) Metabolic encephalopathy Assessment/Plan: -resolved Code(s): G93.41 - METABOLIC ENCEPHALOPATHY (4) CML (chronic myelocytic leukemia) Assessment/Plan: -oncology following Code(s): C92.10 - CHRONIC MYELOID LEUK, BCR/ABL-POSITIVE, NOT ACHIEVE REMIS (5) Diabetes Assessment/Plan: -diabetic diet -continue levemir and metformin -FSBS and SSI Code(s): E11.9 - TYPE 2 DIABETES MELLITUS WITHOUT COMPLICATIONS (6) CHF (congestive heart failure) Assessment/Plan: -continue torsemide, on daily dose Code(s): I50.9 - HEART FAILURE, UNSPECIFIED Qualifiers: Congestive heart failure type: diastolic Congestive heart failure chronicity: chronic Qualified Code(s): I50.32 - Chronic diastolic ( congestive) heart failure (7) COPD (chronic obstructive pulmonary disease) Assessment/Plan: -not in exacerbation -continue home regimen Code(s): J44.9 - CHRONIC OBSTRUCTIVE PULMONARY DISEASE, UNSPECIFIED (8) Hypertension Assessment/Plan: -much improved -continue lisinopril 20mg bid on discharge Code(s): I10 - ESSENTIAL (PRIMARY) HYPERTENSION (9) Hypothyroid Assessment/Plan: -continue synthroid Code(s): E03.9 - HYPOTHYROIDISM, UNSPECIFIED Dispo -d/c tomorrow to SNF with instructions for antibiotics per ID -PICC line placed
--- NOTE | 2017-05-12 13:08 | PN ---
Progress Note, Physician History of Present Illness: stable no new issues post op - Current Medication List Current Medications: Active Medications Acetaminophen (Tylenol -) 650 mg PO Q6H PRN PRN Reason: FEVER OR PAIN Albuterol Sulfate (Ventolin Hfa Inhaler -) 2 puff IH Q6H PRN PRN Reason: SHORT OF BREATH/WHEEZING Aspirin (Asa -) 81 mg PO DAILY [facility] Last Admin: 05/12/17 11:28 Dose: Not Given Collagenase (Santyl -) 1 applic TP DAILY [facility] Last Admin: 05/12/17 11:43 Dose: Not Given Docusate Sodium (Colace -) 300 mg PO HS [facility] Enoxaparin Sodium (Lovenox -) 40 mg SQ DAILY [facility] Fentanyl (Sublimaze Injection -) 25 mcg IVPUSH [id number] PRN PRN Reason: PAIN Stop: 05/15/17 08:48 Last Admin: 05/12/17 10:15 Dose: 25 mcg Gabapentin (Neurontin -) 600 mg PO TID [facility] IV Flush (Picc Line Flush) 8 ml IVPUSH PRN PRN PRN Reason: Protocol Insulin Aspart (Novolog Vial Sliding Scale -) 1 vial SQ ACHS [facility] PRN Reason: Protocol Last Admin: 05/12/17 11:42 Dose: Not Given Insulin Detemir (Levemir Vial) 10 units SQ HS [facility] Levothyroxine Sodium (Synthroid -) 25 mcg PO DAILY@0700 [facility] Lisinopril (Prinivil) 20 mg PO BID [facility] Last Admin: 05/12/17 11:34 Dose: 20 mg Magnesium Oxide (Mag-Ox -) 400 mg PO BID [facility] Last Admin: 05/12/17 12:07 Dose: 400 mg Metformin HCl (Glucophage -) 1,000 mg PO BID@0700,1630 [facility] Non-Formulary Medication (Patient's Own Med) 2 each PO BID [facility] Last Admin: 05/12/17 11:28 Dose: 2 each Oxycodone HCl (Roxicodone -) 10 mg PO Q4H PRN PRN Reason: PAIN Last Admin: 05/12/17 11:26 Dose: 10 mg Senna (Senna -) 2 tab PO HS PRN PRN Reason: CONSTIPATION Torsemide (Demadex -) 40 mg PO DAILY [facility] Last Admin: 05/12/17 11:33 Dose: 40 mg - Objective Vital Signs: Vital Signs Temperature 98.0 F 05/12/17 11:46 Pulse Rate 67 05/12/17 11:46 Respiratory Rate 20 05/12/17 11:46 Blood Pressure 148/64 05/12/17 11:46 O2 Sat by Pulse Oximetry (%) 100 05/12/17 10:45 Constitutional: Yes: No Distress, Calm, Obese HENT: Yes: Atraumatic, Normocephalic Cardiovascular: Yes: Regular Rate and Rhythm Respiratory: Yes: Regular, CTA Bilaterally Gastrointestinal: Yes: Normal Bowel Sounds, Soft Musculoskeletal: Yes: Other Extremities: Yes: Other Neurological: Yes: Alert, Oriented Psychiatric: Yes: Alert, Oriented Labs: CBC, BMP 05/12/17 07:24 05/12/17 07:24 INR, PTT INR 1.05 (0.82-1.09) 05/03/17 17:45 Assessment/Plan Problem List - Problems (1) Severe sepsis Code(s): A41.9 - SEPSIS, UNSPECIFIED ORGANISM R65.20 - SEVERE SEPSIS WITHOUT SEPTIC SHOCK (2) Diabetic foot ulcer Code(s): E11.621 - TYPE 2 DIABETES MELLITUS WITH FOOT ULCER L97.509 - NON-PRESSURE CHRONIC ULCER OTH PRT UNSP FOOT W UNSP SEVERITY Qualifiers: Diabetic foot ulcer location: heel Diabetes mellitus type: type 2 Laterality: right Non-pressure ulcer stage: with necrosis of muscle Qualified Code(s): E11.621 - Type 2 diabetes mellitus with foot ulcer; L97.509 - Non-pressure chronic ulcer of other part of unspecified foot with unspecified severity (3) Metabolic encephalopathy Code(s): G93.41 - METABOLIC ENCEPHALOPATHY (4) CML (chronic myelocytic leukemia) Code(s): C92.10 - CHRONIC MYELOID LEUK, BCR/ABL-POSITIVE, NOT ACHIEVE REMIS (5) Diabetes Code(s): E11.9 - TYPE 2 DIABETES MELLITUS WITHOUT COMPLICATIONS (6) CHF (congestive heart failure) Code(s): I50.9 - HEART FAILURE, UNSPECIFIED Qualifiers: Congestive heart failure type: diastolic Congestive heart failure chronicity: chronic Qualified Code(s): I50.32 - Chronic diastolic ( congestive) heart failure (7) COPD (chronic obstructive pulmonary disease) Code(s): J44.9 - CHRONIC OBSTRUCTIVE PULMONARY DISEASE, UNSPECIFIED (8) Hypertension Code(s): I10 - ESSENTIAL (PRIMARY) HYPERTENSION (9) Hypothyroid Code(s): E03.9 - HYPOTHYROIDISM, UNSPECIFIED 10 leukocytosis 11 bilateral cellulitits of the legs plan will restart abx rest continue current mgmt await for biopsy report
--- NOTE | 2017-05-12 13:53 | PN ---
Progress Note (short form) - Note Progress Note: Patient seen and examined s/p PICC line Cor: RSR, No murmurs, No gallops Lungs: Clear to P&A Abd: Soft, Normal bowel sounds, No organomegaly Ext:RLE cellulitis+ Temp Pulse Resp BP Pulse Ox 98.0 F 67 20 148/64 100 05/12/17 11:46 05/12/17 11:46 05/12/17 11:46 05/12/17 11:46 05/12/17 10:45 CBC, BMP 05/12/17 07:24 05/12/17 07:24 Current Medications Generic Name Dose Route Start Last Admin Trade Name Freq PRN Reason Stop Dose Admin Acetaminophen 650 mg 05/12/17 09:54 Tylenol - PO Q6H PRN FEVER OR PAIN Albuterol Sulfate 2 puff 05/12/17 09:54 Ventolin Hfa Inhaler - IH Q6H PRN SHORT OF BREATH/WHEEZING Aspirin 81 mg 05/12/17 10:00 05/12/17 11:28 Asa - PO Not Given DAILY [facility] Collagenase 1 applic 05/12/17 10:00 05/12/17 11:43 Santyl - TP Not Given DAILY [facility] Docusate Sodium 300 mg 05/12/17 22:00 Colace - PO HS [facility] Enoxaparin Sodium 40 mg 05/12/17 10:00 Lovenox - SQ DAILY [facility] Fentanyl 25 mcg 05/12/17 09:54 05/12/17 10:15 Sublimaze Injection - IVPUSH 05/15/17 08:48 25 mcg [id number] PRN Administration PAIN Gabapentin 600 mg 05/12/17 14:00 Neurontin - PO TID [facility] IV Flush 8 ml 05/12/17 12:26 Picc Line Flush IVPUSH PRN PRN Protocol Vancomycin HCl 1,250 mg/ 250 mls @ 125 mls/hr 05/12/17 14:00 Dextrose IVPB DAILY@1400 [facility] Protocol Insulin Aspart 1 vial 05/12/17 11:00 05/12/17 11:42 Novolog Vial Sliding Scale - SQ Not Given ACHS [facility] Protocol Insulin Detemir 10 units 05/12/17 22:00 Levemir Vial SQ HS [facility] Levothyroxine Sodium 25 mcg 05/13/17 07:00 Synthroid - PO DAILY@0700 [facility] Lisinopril 20 mg 05/12/17 10:00 05/12/17 11:34 Prinivil PO 20 mg BID [facility] Administration Magnesium Oxide 400 mg 05/12/17 11:45 05/12/17 12:07 Mag-Ox - PO 400 mg BID [facility] Administration Metformin HCl 1,000 mg 05/12/17 16:30 Glucophage - PO BID@0700,1630 [facility] Non-Formulary Medication 2 each 05/12/17 10:00 05/12/17 11:28 Patient's Own Med PO 2 each BID [facility] Administration Oxycodone HCl 10 mg 05/12/17 09:54 05/12/17 11:26 Roxicodone - PO 10 mg Q4H PRN Administration PAIN Senna 2 tab 05/12/17 09:54 Senna - PO HS PRN CONSTIPATION Torsemide 40 mg 05/12/17 10:00 05/12/17 11:33 Demadex - PO 40 mg DAILY [facility] Administration 66yo F with PMH of CML on chemotherapy, DM presenting c/o SOB of sudden onset. Pt found to have severe sepsis (leukocyte count 24.4, fever 102F, tachycardia 102, plus lactic acidosis of 2.5) with AMS. Source ?osteomyelitis Abx per ID s/p Bone biopsy CML --[place] [id number] Presumably in good remission Leukocytosis due to infection will f/u on pcr for bcr:abl to assess molecular remission status continue to monitor CBC c/w nilotinib---300mg PO bid will follow
[2017-05-12] MEDS ORDERED: VANCOMYCIN 1,250 MG in DEXTROSE 5%-WATER - 250 ML IVPB SCH (14:00)
[2017-05-12] MEDS ORDERED: PT OWN MED DRAWER 7, Y5N ONE (14:30)
[2017-05-12] MEDS: metFORMIN HCL 500 MG TABLET (FP) PO SCH (17:19)
[2017-05-12] MEDS ORDERED: INSULIN (NOVOLOG) ASPART 100 UNITS/ML 10ML VIAL ONE (17:20)
[2017-05-12] MEDS ORDERED: DOCUSATE SODIUM 100 MG CAPSULE (FP) PO SCH (22:00)
[2017-05-12] MEDS ORDERED: INSULIN DETEMIR 100 UNITS/ML MDV SQ SCH (22:00)
[2017-05-13] MEDS: INSULIN SLIDING SCALE (NOVOLOG) 1 VIAL SQ SCH ×2 (06:01→11:16)
[2017-05-13] MEDS: metFORMIN HCL 500 MG TABLET (FP) PO SCH (06:07)
[2017-05-13] MEDS: GABAPENTIN 300 MG CAPSULE (FP) PO SCH ×2 (06:07→14:51)
[2017-05-13] MEDS ORDERED: LEVOTHYROXINE NA 25 MCG TABLET (FP) PO SCH (07:00)
[2017-05-13 07:49] LABS: BASOPHIL 0.3 % (0-2.0); EOSINOPHIL 3.6 % (0-4.5); MCH 28.6 pg (25.7-33.7); MCHC 33.2 g/dl (32.0-36.0); MEAN PLT VOLUME 8.3 fl (7.5-11.1); NEUTROPHILS 67.1 % (42.8-82.8); PLATELET COUNT 170 K/MM3 (134-434); RDW 16.5 % (11.6-15.6); WHITE BLOOD COUNT 4.2 K/mm3 (4.0-10.0)
--- NOTE | 2017-05-13 07:50 | PN ---
Progress Note (short form) - Note Progress Note: Podiatry: Seen/evaluated at bedside, NAD. Pain controlled, denies F/V/N/C/SOB/CP. S/p R heel debridement and bone biopsy POD #1. AFebrile, VSS. MELANI: R foot: inferior heel DM ulcer with granular base, no active bleeding, probing to bone medially, no purulence, no fluctuance, no streaking cellulitis, no lymphangitis, no signs of acute infection. Lower leg erythema improving. Minimal tenderness to palpation. WBC: pending OR Cx: pending OR Path: pending Imp: 66 year old IDDM F with R heel ulcer and chronic osteomyelitis, s/p R heel debridement and bone biopsy POD #1 1. C/w local wound care 2. Heel offloading 3. F/u OR cultures/path 4. Will likely need treatment for osteomyelitis. Will discuss with ID. 5. Wound VAC as outpatient 6. Will follow Michaela Farmer DPM
[2017-05-13 08:04] LABS: ANION GAP 8 (8-16); CALCIUM 7.9 mg/dL (8.5-10.1); CO2 36 mmol/L (21-32); GLUCOSE,RANDOM 105 mg/dL (74-106); MAGNESIUM 1.6 mg/dL (1.8-2.4)
[2017-05-13 08:06] LABS: CREATININE 0.5 mg/dL (0.55-1.02); PHOSPHOROUS 3.8 mg/dL (2.5-4.9)
[2017-05-13] MEDS ORDERED: PT OWN MED DRAWER 7, Y5N ONE (08:40)
--- NOTE | 2017-05-13 10:28 | DS ---
Physical Examination Vital Signs: Vital Signs Temperature 98.5 F 05/13/17 06:00 Pulse Rate 68 05/13/17 06:00 Respiratory Rate 20 05/13/17 06:00 Blood Pressure 154/75 05/13/17 06:00 O2 Sat by Pulse Oximetry (%) 100 05/12/17 21:00 Constitutional: Yes: No Distress, Calm Eyes: No: Sclera Icterus Cardiovascular: Yes: Pulse Irregular Respiratory: Yes: CTA Bilaterally Gastrointestinal: Yes: Abdomen, Obese Extremities: Yes: Other (foot ulcer wrapped) Neurological: Yes: Alert Labs: CBC, BMP 05/13/17 06:00 05/13/17 06:00 Discharge Summary Reason For Visit: SEVERE SEPSIS Current Active Problems CML (chronic myelocytic leukemia) (Chronic) Diabetes (Chronic) Osteomyelitis of foot (Chronic) Thrombocytopenia (Chronic) Hospital Course: Please refer to daily notes and extensive problem list Transferred to [facility] for ongoing antibiotic therapy Condition: Fair - Instructions Diet, Activity, Other Instructions: As directed previously Referrals: Carlito Longo MD [Primary Care Provider] - Disposition: INTERMEDIATE FACILITY - Home Medications Comprehensive Discharge Medication List: Ambulatory Orders Albuterol Sulfate Inhaler - [Ventolin HFA Inhaler -] 2 inh IH Q6H PRN 04/11/16 Acetaminophen [Tylenol .Regular Strength -] 650 mg PO Q4H PRN #0 tablet [facility] [employer] [Wound Vac -] 1 each ASDIR #1 unit 09/06/16 Insulin (Levemir) [Levemir Flexpen -] 10 units SQ HS 11/22/16 Lisinopril [Prinivil] 1 tab PO DAILY 11/22/16 Metformin HCl 2 tab PO BID 11/22/16 Nilotinib HCl [Tasigna] 2 cap PO BID 11/22/16 Docusate Sodium [Colace -] 300 mg PO HS 03/14/17 Aspirin [ASA -] 81 mg PO DAILY 04/20/17 Gabapentin 600 mg PO TID 04/20/17 Oxycodone HCl [Roxicodone -] 10 mg PO Q4H PRN MDD 60mg 04/20/17 Arformoterol Tartrate [Brovana -] 1 amp NEB BID amp 04/26/17 Collagenase Clostridium Hist. [Santyl] 1 inch TP DAILY 05/03/17 Insulin Lispro [Humalog] 100 unit SQ PRN 05/03/17 Levothyroxine [Synthroid -] 25 mcg PO DAILY 05/03/17 Torsemide [Demadex -] 40 mg PO BID 05/03/17 Acetaminophen [Tylenol .Regular Strength -] 650 mg PO Q6H PRN #0 tablet Albuterol Sulfate Inhaler - [Ventolin HFA Inhaler -] 2 puff IH Q6H PRN #0 inhaler 05/13/17 Aspirin [ASA -] 81 mg PO DAILY tab.chew 05/13/17 Collagenase Clostridium Hist. [Santyl -] 1 applic TP DAILY tube 05/13/17 Docusate Sodium [Colace -] 300 mg PO HS #30 cap 05/13/17 Enoxaparin [Lovenox -] 40 mg SQ DAILY #30 misc 05/13/17 Fentanyl Injection [Sublimaze Injection -] 25 mcg IVPUSH [id number] #[id number] patch.bwk MDD 1 05/13/17 Gabapentin [Neurontin -] 600 mg PO TID tab 05/13/17 Insulin (Levemir) [Levemir Vial] 10 units SQ HS #10 ml NS 05/13/17 Insulin Sliding Scale [Novolog Vial Sliding Scale -] 1 vial SQ ACHS units 05/13 Levothyroxine [Synthroid -] 25 mcg PO DAILY@0700 tablet 05/13/17 Lisinopril [Prinivil] 20 mg PO BID tablet 05/13/17 Magnesium Oxide [Mag-Ox -] 400 mg PO BID tablet 05/13/17 Metformin HCl [Glucophage -] 1,000 mg PO BID@0700,1630 tablet 05/13/17 Oxycodone HCl [Roxicodone -] 10 mg PO Q4H PRN #30 tablet NS MDD 4 05/13/17 Patient's Own Medication [Patient's Own Med (Nf) -] 2 each PO BID tab 05/13/17 Picc Line Flush [Picc Line Flush -] 8 ml IVPUSH PRN PRN #0 ml 05/13/17 Sennosides [Senna -] 2 tab PO HS PRN #30 tablet 05/13/17 Torsemide [Demadex -] 40 mg PO DAILY tablet 05/13/17 Vancomycin 1,250 mg IVPB DAILY@1400 vial 05/13/17
[2017-05-13] MEDS: TORSEMIDE 20 MG TABLET (FP) PO SCH (11:08)
[2017-05-13] MEDS: MAGNESIUM OXIDE 400 MG TABLET (FP) PO SCH (11:08)
[2017-05-13] MEDS: ASPIRIN 81 MG CHEWABLE TABLETS PO SCH (11:08)
[2017-05-13] MEDS: LISINOPRIL 20 MG TABLET (FP) PO SCH (11:09)
[2017-05-13] MEDS: oxyCODONE HCL 5 MG TABLET PO PRN (11:30)
--- NOTE | 2017-05-13 12:44 | PN ---
Progress Note, Physician History of Present Illness: stable no new issues post op - Current Medication List Current Medications: Active Medications Acetaminophen (Tylenol -) 650 mg PO Q6H PRN PRN Reason: FEVER OR PAIN Last Admin: 05/12/17 20:31 Dose: 650 mg Albuterol Sulfate (Ventolin Hfa Inhaler -) 2 puff IH Q6H PRN PRN Reason: SHORT OF BREATH/WHEEZING Aspirin (Asa -) 81 mg PO DAILY [facility] Last Admin: 05/13/17 11:08 Dose: 81 mg Collagenase (Santyl -) 1 applic TP DAILY [facility] Last Admin: 05/12/17 11:43 Dose: Not Given Docusate Sodium (Colace -) 300 mg PO [facility] Last Admin: 05/12/17 22:08 Dose: 300 mg Enoxaparin Sodium (Lovenox -) 40 mg SQ DAILY [facility] Last Admin: 05/13/17 11:13 Dose: 40 mg Fentanyl (Sublimaze Injection -) 25 mcg IVPUSH [id number] PRN PRN Reason: PAIN Stop: 05/15/17 08:48 Last Admin: 05/12/17 10:15 Dose: 25 mcg Gabapentin (Neurontin -) 600 mg PO TID [facility] Last Admin: 05/13/17 06:07 Dose: 600 mg IV Flush (Picc Line Flush) 8 ml IVPUSH PRN PRN PRN Reason: Protocol Vancomycin HCl 1,250 mg/ (Dextrose) 250 mls @ 125 mls/hr IVPB DAILY@1400 [facility] PRN Reason: Protocol Last Admin: 05/12/17 15:35 Dose: 125 mls/hr Insulin Aspart (Novolog Vial Sliding Scale -) 1 vial SQ [facility] PRN Reason: Protocol Last Admin: 05/13/17 11:16 Dose: Not Given Insulin Detemir (Levemir Vial) 10 units SQ [facility] Last Admin: 05/12/17 22:08 Dose: 10 unit Levothyroxine Sodium (Synthroid -) 25 mcg PO DAILY@0700 [facility] Last Admin: 05/13/17 06:07 Dose: 25 mcg Lisinopril (Prinivil) 20 mg PO BID [facility] Last Admin: 05/13/17 11:09 Dose: 20 mg Magnesium Oxide (Mag-Ox -) 400 mg PO BID [facility] Last Admin: 05/13/17 11:08 Dose: 400 mg Metformin HCl (Glucophage -) 1,000 mg PO BID@0700,1630 [facility] Last Admin: 05/13/17 06:07 Dose: 1,000 mg Non-Formulary Medication (Patient's Own Med) 2 each PO BID [facility] Last Admin: 05/13/17 11:11 Dose: 2 each Oxycodone HCl (Roxicodone -) 10 mg PO Q4H PRN PRN Reason: PAIN Last Admin: 05/13/17 11:30 Dose: 10 mg Senna (Senna -) 2 tab PO HS PRN PRN Reason: CONSTIPATION Torsemide (Demadex -) 40 mg PO DAILY [facility] Last Admin: 05/13/17 11:08 Dose: 40 mg - Objective Vital Signs: Vital Signs Temperature 98.5 F 05/13/17 06:00 Pulse Rate 68 05/13/17 06:00 Respiratory Rate 20 05/13/17 06:00 Blood Pressure 154/75 05/13/17 06:00 O2 Sat by Pulse Oximetry (%) 100 05/12/17 21:00 Constitutional: Yes: No Distress, Calm Neck: Yes: Supple, Trachea Midline Cardiovascular: Yes: Regular Rate and Rhythm Respiratory: Yes: Regular, CTA Bilaterally Gastrointestinal: Yes: Normal Bowel Sounds, Soft Musculoskeletal: Yes: Other Extremities: Yes: Other Neurological: Yes: Alert, Oriented Labs: CBC, BMP 05/13/17 06:00 05/13/17 06:00 INR, PTT INR 1.05 (0.82-1.09) 05/03/17 17:45 Assessment/Plan Problem List - Problems (1) Severe sepsis Code(s): A41.9 - SEPSIS, UNSPECIFIED ORGANISM R65.20 - SEVERE SEPSIS WITHOUT SEPTIC SHOCK (2) Diabetic foot ulcer Code(s): E11.621 - TYPE 2 DIABETES MELLITUS WITH FOOT ULCER L97.509 - NON-PRESSURE CHRONIC ULCER OTH PRT UNSP FOOT W UNSP SEVERITY Qualifiers: Diabetic foot ulcer location: heel Diabetes mellitus type: type 2 Laterality: right Non-pressure ulcer stage: with necrosis of muscle Qualified Code(s): E11.621 - Type 2 diabetes mellitus with foot ulcer; L97.509 - Non-pressure chronic ulcer of other part of unspecified foot with unspecified severity (3) Metabolic encephalopathy Code(s): G93.41 - METABOLIC ENCEPHALOPATHY (4) CML (chronic myelocytic leukemia) Code(s): C92.10 - CHRONIC MYELOID LEUK, BCR/ABL-POSITIVE, NOT ACHIEVE REMIS (5) Diabetes Code(s): E11.9 - TYPE 2 DIABETES MELLITUS WITHOUT COMPLICATIONS (6) CHF (congestive heart failure) Code(s): I50.9 - HEART FAILURE, UNSPECIFIED Qualifiers: Congestive heart failure type: diastolic Congestive heart failure chronicity: chronic Qualified Code(s): I50.32 - Chronic diastolic ( congestive) heart failure (7) COPD (chronic obstructive pulmonary disease) Code(s): J44.9 - CHRONIC OBSTRUCTIVE PULMONARY DISEASE, UNSPECIFIED (8) Hypertension Code(s): I10 - ESSENTIAL (PRIMARY) HYPERTENSION (9) Hypothyroid Code(s): E03.9 - HYPOTHYROIDISM, UNSPECIFIED 10 leukocytosis 11 bilateral cellulitits of the legs plan continue vanco please follow vanco trough cbc bmp crp esr weekly wound care all cx results noted
[2017-05-13] MEDS: COLLAGENASE CLOSTRIDIUM HIST. 30 GRAMS TUBE TP SCH (14:52)
[2017-05-13 14:54] VITALS: BP 134/65; PULSE 72; TEMP 99.2
--- NOTE | 2017-05-14 19:51 | OP ---
DATE OF OPERATION: 05/12/2017 PREOPERATIVE DIAGNOSIS: Right heel ulcer, diabetic, with osteomyelitis. POSTOPERATIVE DIAGNOSIS: Right heel ulcer, diabetic, with osteomyelitis. PROCEDURE: Right heel debridement with bone biopsy. SURGEON: Jono Farmer DPM BUSINESS SERVICES ASSISTANT: , PGY2, [facility] ANESTHESIA: Local with IV sedation. ESTIMATED BLOOD LOSS: Minimal. PATHOLOGY: Bone, right foot. COMPLICATIONS: None. The patient was brought to the operating room and placed in the operating table in the supine position. I elected to not use a tourniquet during the course of the procedure. Following the induction of IV sedation, local anesthesia was achieved utilizing 10 mL of 2% lidocaine plain. The right foot was then scrubbed, prepped and draped in the usual aseptic fashion. Attention was directed to the right plantar heel, where a diabetic foot ulcer probing to bone was visualized and appreciated. I began by performing an excisional debridement of the right heel ulcer to the level of subcutaneous tissue utilizing a 15 blade scalpel and a sterile curette. Vital granular tissue persisted. Next, at the medial aspect of the ulcer, I introduced a rongeur, palpated chronic osteomyelitic bone and then resected that bone using the rongeur. The fragments of bone were then sent to Pathology for analysis. The surgical site was copiously irrigated with sterile saline. An appropriate soft tissue culture was obtained. Following the conclusion of the procedure, the surgical site was covered with Xeroform and sterile compressive dressing was applied to the right foot consisting of sterile gauze, Janae, Kerlix, and an Phu wrap. The patient tolerated the procedure and anesthesia well without complications. She was transferred from the operating room to the recovery unit with vital signs stable and neurovasculature intact to the right foot. LEANNA SOMMERS/[id number] cc: [facility] Podiatry
--- NOTE | 2017-05-15 12:37 | PATH ---
Surgical Pathology Report Patient Name: XIAO HAGEN Med. Rec. #: [id number] /Age/Gender: 1950 (Age: 66) / F Account: [id number] Location: [facility] MED/SURG Taken: 05/12/2017 Received: 05/12/2017 Reported: 05/15/2017 Physicians: Jono Farmer DPM Specimen(s) Received DEBRIDED TISSUE Clinical History Right heel ulcer diabetic with osteomyelitis Final Diagnosis BONE AND SOFT TISSUE, RIGHT HEEL, DEBRIDEMENT: BONE WITH FOCAL ACUTE OSTEOMYELITIS, AND EXTENSIVE REACTIVE CHANGES. SOFT TISSUE WITH GANGRENOUS NECROSIS. Electronically Signed Alessandro Agee M.D. Gross Description Received in formalin labeled "debrided bone and tissue right heel," is a 2.0 x 1.7 x 0.2 cm aggregate of mcnamara bone and possible soft tissue fragments. The specimen is submitted in toto in one cassette, following decalcification. /05/12/201705/12/2017
--- NOTE | 2017-05-15 14:42 | OP ---
DATE OF OPERATION: 05/12/2017 PREOPERATIVE DIAGNOSIS: Right heel diabetic ulcer with osteomyelitis. POSTOPERATIVE DIAGNOSIS: Right heel diabetic ulcer with osteomyelitis. PROCEDURE: Right heel debridement with bone biopsy. SURGEON: Jono Farmer DPM BACK SEWER: Dr. Patterson, PGY-2, [facility] ANESTHESIA: Local with IV sedation. PATHOLOGY: Bone, right foot. ESTIMATED BLOOD LOSS: Minimal. COMPLICATIONS: None. DESCRIPTION OF PROCEDURE: The patient was brought to the operating room and placed on the operating table in the supine position. I elected to not use a tourniquet during the course of the procedure. Following the induction of IV sedation, local anesthesia was achieved utilizing 10 mL of 2% lidocaine plain. The right foot was then scrubbed, prepped, and draped in the usual aseptic fashion. Attention was directed to the right inferior heel where a diabetic foot ulcer with chronic osteomyelitis was visualized and appreciated. I began by performing excisional debridement of devitalized fibrotic tissue to the level of subcutaneous tissue using a curette. Next, using a rongeur, I removed fragments of chronic osteomyelitis from the inferior heel. That was sent for pathology and culture. An appropriate soft tissue culture was then obtained. The surgical site was copiously irrigated with sterile saline. The ulcer was covered with Xeroform and a sterile compressive dressing was applied to the right foot consisting of sterile gauze, clean Kerlix, and an Phu wrap. The patient tolerated the procedure and anesthesia well, without complications. She was transferred from the operating room to the recovery unit with vital signs stable and neural vasculature intact to the right foot. LEANNA SOMMERS/[id number] cc: [facility] Podiatry
== END 2017-05-13 18:27 | DRG 853 ==
LOC: JER 14:58 → JERBED 22:37 → UNDOADMIN 23:36 → J7W 05-04 11:32
PROVIDERS: ADMIT Internal Medicine; ATTEND Nurse Practitioner Acute Care
PROC: 0JBQ0ZZ Excision of Right Foot Subcutaneous Tissue and Fascia, Open Approach (ICD-10-PCS; 2017-05-12)
PROC: 02HV33Z Insertion of Infusion Device into Superior Vena Cava, Percutaneous Approach (ICD-10-PCS; 2017-05-12)
PROC: B518ZZA Fluoroscopy of Superior Vena Cava, Guidance (ICD-10-PCS; 2017-05-12)
PROC: B548ZZA Ultrasonography of Superior Vena Cava, Guidance (ICD-10-PCS; 2017-05-12)
PROC: 0QBL0ZZ Excision of Right Tarsal, Open Approach (ICD-10-PCS; principal; 2017-05-12 08:30)
DX: A41.9 Sepsis, unspecified organism (principal); I50.33 Acute on chronic diastolic (congestive) heart failure; G93.41 Metabolic encephalopathy; L97.419 Non-pressure chronic ulcer of right heel and midfoot with unspecified severity; M86.671 Other chronic osteomyelitis, right ankle and foot; C92.10 Chronic myeloid leukemia, BCR/ABL-positive, not having achieved remission; E87.2 Acidosis; L03.115 Cellulitis of right lower limb; R65.20 Severe sepsis without septic shock; E11.621 Type 2 diabetes mellitus with foot ulcer; E11.69 Type 2 diabetes mellitus with other specified complication; Z79.84 Long term (current) use of oral hypoglycemic drugs; E78.00 Pure hypercholesterolemia, unspecified; Z87.891 Personal history of nicotine dependence; J44.9 Chronic obstructive pulmonary disease, unspecified; E03.9 Hypothyroidism, unspecified; E87.6 Hypokalemia; E83.51 Hypocalcemia; E66.9 Obesity, unspecified; Z68.31 Body mass index [BMI] 31.0-31.9, adult; D69.59 Other secondary thrombocytopenia
CPT/HCPCS: 11042; 36415; 36569; 36600; 70450-TC; 71010-TC; 73722-TC; 74177-TC; 77001-TC; 80048; 80053; 81003; 82803; 83605; 83735; 84100; 85025; 85027; 85610; 86022; 86850; 86900; 86901; 87040; 87070; 87075; 87077; 87086; 87186; 87205; 88300-TC; 88304-TC; 93005; 93010; 93970-TC; 94760; 99284-25; C1751; G0480; J1644

== ENCOUNTER 2017-06-01 00:41 | Observation (INO) | payer OTHER, MEDICARE ==
--- NOTE | 2017-06-01 01:00 | PDOC ---
History of Present Illness - General Stated Complaint: LOW BLOOD PROBLEM Time Seen by Provider: 06/01/17 00:59 - History of Present Illness Initial Comments: 66 year old female with history of HTN, Diabetes (non insulin dependent), CML ( on antibody therapy), and anemia (need for weekly/bi-weekly transfusions) presenting from [facility] after she was hypoxic and her HgB was measured to be 6.2. Denies any oropharyngeal, GI, or bleeding. Denies bruising or petechiae. Denies fevers, chills, nausea, vomiting, cough, or other sick symptoms. She usually gets her trasnfusions at [facility] but they were unable to accommodate her today. Her HgB was 6.2 at the alf with SATs in the low 90s on RA. 06/01/17 02:34 Past History - Past Medical History Allergies/Adverse Reactions: Allergies Allergy/AdvReac Type Severity Reaction Status Date / Time metoprolol Allergy Intermediate Rash Verified 06/01/17 01:03 Home Medications: Ambulatory Orders Albuterol Sulfate Inhaler - [Ventolin HFA Inhaler -] 2 inh IH Q6H PRN 04/11/16 Miscellaneous Medical Supply [Wound Vac -] 1 each ASDIR #1 unit 09/06/16 Insulin (Levemir) [Levemir Flexpen -] 10 units SQ HS 11/22/16 Nilotinib HCl [Tasigna] 2 cap PO BID 11/22/16 Oxycodone HCl [Roxicodone -] 10 mg PO Q4H PRN MDD 60mg 04/20/17 Arformoterol Tartrate [Brovana -] 1 amp NEB BID amp 04/26/17 Insulin Lispro [Humalog] 100 unit SQ PRN 05/03/17 Torsemide [Demadex -] 40 mg PO BID 05/03/17 Acetaminophen [Tylenol .Regular Strength -] 650 mg PO Q6H PRN #0 tablet Aspirin [ASA -] 81 mg PO DAILY tab.chew 05/13/17 Collagenase Clostridium Hist. [Santyl -] 1 applic TP DAILY tube 05/13/17 Docusate Sodium [Colace -] 300 mg PO HS #30 cap 05/13/17 Enoxaparin [Lovenox -] 40 mg SQ DAILY #30 misc 05/13/17 Fentanyl Injection [Sublimaze Injection -] 25 mcg IVPUSH [id number] #7 patch.bwk MDD 1 05/13/17 Gabapentin [Neurontin -] 600 mg PO TID tab 05/13/17 Insulin Sliding Scale [Novolog Vial Sliding Scale -] 1 vial SQ ACHS units 05/13 Levothyroxine [Synthroid -] 25 mcg PO DAILY@0700 tablet 05/13/17 Lisinopril [Prinivil] 20 mg PO BID tablet 05/13/17 Magnesium Oxide [Mag-Ox -] 400 mg PO BID tablet 05/13/17 Metformin HCl [Glucophage -] 1,000 mg PO BID@0700,1630 tablet 05/13/17 Patient's Own Medication [Patient's Own Med (Nf) -] 2 each PO BID tab 05/13/17 Picc Line Flush [Picc Line Flush -] 8 ml IVPUSH PRN PRN #0 ml 05/13/17 Sennosides [Senna -] 2 tab PO HS PRN #30 tablet 05/13/17 Torsemide [Demadex -] 40 mg PO DAILY tablet 05/13/17 Vancomycin 1,250 mg IVPB DAILY@1400 vial 05/13/17 Anemia: Yes Asthma: No Cancer: Yes (CML) Cardiac Disorders: No CVA: No COPD: Yes CHF: No DVT: Yes Dementia: No Diabetes: Yes (diabetic foot ulcer) GI Disorders: No Disorders: Yes (uti) HTN: Yes Hypercholesterolemia: Yes Liver Disease: Yes (fatty liver) Psychiatric Problems: Yes (depression) Seizures: No Thyroid Disease: Yes (HYPO) - Surgical History Abdominal Surgery: Yes (hernia) Appendectomy: No Cardiac Surgery: No Cholecystectomy: Yes Lung Surgery: No Neurologic Surgery: No Orthopedic Surgery: No - Immunization History Immunization Up to Date: Yes - Suicide/Smoking/Psychosocial Hx Smoking Status: Yes Smoking History: Former smoker Have you smoked in the past 12 months: No Number of Cigarettes Smoked Daily: 0 If you are a former smoker, when did you quit?: 2013 Cigars Per Day: 0 'Breaking Loose' booklet given: 02/28/12 Hx Alcohol Use: No Drug/Substance Use Hx: No Substance Use Type: None Hx Substance Use Treatment: No Review of Systems - Review of Systems Constitutional: No: Chills, Diaphoresis, Fever HEENTM: No: Blurred Vision Respiratory: Yes: Shortness of Breath. No: Cough, Orthopnea, Wheezing, Productive cough Cardiac (ROS): No: Chest Pain, Edema ABD/GI: No: Diarrhea, Nausea, Vomiting : No: Dysuria, Discharge Integumentary: No: Change in Color Neurological: No: Headache, Numbness, Paresthesia Psychiatric: No: Anxiety, Depression *Physical Exam - Physical Exam General Appearance: Yes: Nourished, Appropriately Dressed. No: Apparent Distress HEENT: positive: EOMI, NELLY, Normal ENT Inspection, Normal Voice Neck: positive: Trachea midline, Normal Thyroid, Supple. negative: Tender, Rigid Respiratory/Chest: positive: Lungs Clear, Normal Breath Sounds. negative: Chest Tender, Respiratory Distress Cardiovascular: positive: Regular Rhythm, Regular Rate, S1, S2. negative: Edema , JVD, Murmur Gastrointestinal/Abdominal: positive: Normal Bowel Sounds, Flat, Soft. negative : Tender Integumentary: positive: Normal Color, Dry, Warm Neurologic: positive: Fully Oriented, Alert, Normal Mood/Affect ED Treatment Course - LABORATORY CBC & Chemistry Diagram: 06/01/17 01:28 06/01/17 01:28 Medical Decision Making - Medical Decision Making 66 year old female with CML on antibody therapy and chronic anemia presenting with hypoxia and HgB of 6.2. No obvious source of bleeding. Most likely secondary to impaired hematopoesis in the setting of her CML. HgB confrimed at 6.2. Will send admit her for transfusion of one pack of PrBCs. Spoke with Dr. Longo on the phone and he is OK with admission for [facility] obs. Patient admitted. 06/01/17 01:55 06/01/17 02:42 *DC/Admit/Observation/Transfer Diagnosis at time of Disposition: Hypoxia Anemia Qualifiers: Anemia type: unspecified type Qualified Code(s): D64.9 - Anemia, unspecified - Discharge Dispostion Admit: Yes
[2017-06-01 01:05] VITALS: BMI 38.9
--- NOTE | 2017-06-01 01:23 | PDOC ---
Attending Attestation - Resident Resident Name: Brannon Ford - ED Attending Attestation I have performed the following: I have examined & evaluated the patient, The case was reviewed & discussed with the resident, I agree w/resident's findings & plan, Exceptions are as noted - HPI HPI: 06/01/17 01:21 Pt sent from [place] for transfusion. Pt with low saturation of 90's on room air - Physicial Exam PE: 06/01/17 01:40 *Physical Exam General Appearance: Yes: Appropriately Dressed. No: Apparent Distress, Intoxicated HEENT: positive: EOMI, NELLY, Normal ENT Inspection, Normal Voice, TMs Normal, Pharynx Normal. negative: Pale Conjunctivae, Photophobia, Scleral Icterus (R), Scleral Icterus (L) Neck: positive: Trachea midline, Normal Thyroid, Supple. negative: Tender, Rigid, Carotid bruit, Stridor, Lymphadenopathy (R), Lymphadenopathy (L), Thyromegaly Respiratory/Chest: positive: Lungs Clear, Normal Breath Sounds. negative: Chest Tender, Respiratory Distress, Accessory Muscle Use, Labored Respiration, RES, Crackles, Rales, Rhonchi, Stridor, Wheezing, Dullness Cardiovascular: positive: Regular Rhythm, Regular Rate, S1, S2. negative: Edema , JVD, Murmur, Bradycardia, Tachycardia Vascular Pulses: Dorsalis-Pedis (R): 2+, Doralis-Pedis (L): 2+ Gastrointestinal/Abdominal: positive: Normal Bowel Sounds, Flat, Soft. negative : Tender, Organomegaly, Pulsatile Mass, Increased Bowel Sounds, Decreased BS, Distended, Guarding, Rebound, Hernia, Hepatomegaly, Spleenomegaly Lymphatic: negative: Adenopathy, Tenderness Musculoskeletal: positive: Normal Inspection. negative: CVA Tenderness, Decreased Range of Motion Extremity: positive: Normal Capillary Refill, Normal Inspection, Normal Range of Motion, Pelvis Stable. negative: Tender, Pedal Edema, Swelling, Erythema Integumentary: positive: Normal Color, Dry, Warm. negative: Cyanotic, Erythema , Jaundice, Rash Neurologic: positive: director drug safety II-XII NML intact, Fully Oriented, Alert, Normal Mood/ Affect, Motor Strength 5/5. negative: EOM Palsy, Facial Droop, Sensory Deficit - Medical Decision Making 06/01/17 19:29 pt admitted for treatment
[2017-06-01 01:37] LABS: BASOPHIL 0.6 % (0-2.0); EOSINOPHIL 3.5 % (0-4.5); MCHC 32.8 g/dl (32.0-36.0); MEAN CELL VOLUME 88.6 fl (80-96); MEAN PLT VOLUME 8.1 fl (7.5-11.1); NEUTROPHILS 67.1 % (42.8-82.8); PLATELET COUNT 149 K/MM3 (134-434); WHITE BLOOD COUNT 4.6 K/mm3 (4.0-10.0)
[2017-06-01] MEDS ORDERED: ACETAMINOPHEN 325 MG TABLET (FP) PO PRN (01:48)
[2017-06-01 01:54] LABS: INR 1.09 (0.82-1.09)
--- NOTE | 2017-06-01 02:00 | PN ---
Progress Note (short form) - Note Progress Note: Chronic anemia requiring periodic blood transfusion at [facility] if Hemoglobin drops below 7 per Hem & Onc at [facility]. H/O CML. She was scheduled for transfusion today but they cancelled the appointment. She will receive 2 units of prbc and thereafter will go back to [facility]. Lasix 20 mg IVPB after 1st transfusion.
[2017-06-01 02:06] LABS: ALBUMIN 2.5 g/dl (3.4-5.0); ALK PHOS 106 U/L (45-117); ANION GAP 11 (8-16); BILIRUBIN,TOTAL 0.3 mg/dL (0.2-1.0); CALCIUM 8.4 mg/dL (8.5-10.1); CO2 28 mmol/L (21-32); CREATININE 1.1 mg/dL (0.55-1.02); GLUCOSE,RANDOM 273 mg/dL (74-106); MAGNESIUM 2.2 mg/dL (1.8-2.4); PHOSPHOROUS 4.4 mg/dL (2.5-4.9); SGOT/AST 19 U/L (15-37); SGPT/ALT 16 U/L (12-78); TOT PROT 6.8 g/dl (6.4-8.2)
[2017-06-01 02:26] LABS: URIC ACID 8.2 mg/dL (2.6-7.2)
[2017-06-01] MEDS ORDERED: oxyCODONE HCL 5 MG TABLET ONE ×2 (06:29→17:33)
[2017-06-01] MEDS ORDERED: metFORMIN HCL 500 MG TABLET (FP) ONE (06:29)
[2017-06-01] MEDS ORDERED: GABAPENTIN 100 MG CAPSULE (FP) ONE (06:29)
[2017-06-01] MEDS: oxyCODONE HCL 5 MG TABLET PO PRN ×2 (06:51→17:36)
[2017-06-01] MEDS: GABAPENTIN 300 MG CAPSULE (FP) PO SCH ×2 (06:51→13:42)
[2017-06-01] MEDS: INSULIN SLIDING SCALE (NOVOLOG) 1 VIAL SQ SCH ×3 (06:52→17:41)
[2017-06-01] MEDS: metFORMIN HCL 500 MG TABLET (FP) PO SCH ×2 (06:52→17:41)
[2017-06-01] MEDS ORDERED: LEVOTHYROXINE NA 25 MCG TABLET (FP) PO SCH (07:00)
[2017-06-01] MEDS ORDERED: LEVOTHYROXINE NA 25 MCG TABLET (FP) ONE (07:14)
[2017-06-01] MEDS ORDERED: ENOXAPARIN NA (PORCINE) 40 MG/0.4 ML DISP.SYRIN SQ ONE (09:50)
[2017-06-01] MEDS ORDERED: LISINOPRIL 20 MG TABLET (FP) PO SCH (10:00)
[2017-06-01] MEDS ORDERED: TORSEMIDE 20 MG TABLET (FP) PO SCH (10:00)
[2017-06-01] MEDS ORDERED: MAGNESIUM OXIDE 400 MG TABLET (FP) PO SCH (10:00)
[2017-06-01] MEDS ORDERED: COLLAGENASE CLOSTRIDIUM HIST. 30 GRAMS TUBE TP SCH (10:00)
[2017-06-01] MEDS ORDERED: NILOTINIB HCL PO SCH (10:00)
[2017-06-01] MEDS ORDERED: ASPIRIN 81 MG CHEWABLE TABLETS PO SCH (10:00)
[2017-06-01] MEDS ORDERED: ARFORMOTEROL TARTRATE 15 MCG/2 ML VIAL NEB SCH (10:00)
[2017-06-01] MEDS ORDERED: ENOXAPARIN NA (PORCINE) 40 MG/0.4 ML DISP.SYRIN SQ SCH (10:00)
[2017-06-01] MEDS ORDERED: FUROSEMIDE 40 MG/4 ML INJECTABLE VIAL IVPUSH ONE (10:13)
--- NOTE | 2017-06-01 10:41 | EKG ---
Test Reason : Blood Pressure : / mmHG Vent. Rate : 073 BPM Atrial Rate : 073 BPM P-R Int : 116 ms QRS Dur : 086 ms QT Int : 398 ms P-R-T Axes : -13 023 030 degrees QTc Int : 438 ms NORMAL SINUS RHYTHM NORMAL ECG WHEN COMPARED WITH ECG OF 03-MAY-2017 18:27, SINUS RHYTHM HAS REPLACED JUNCTIONAL RHYTHM Confirmed by CAROLINE BURKS MD ([id number]) on 06/01/2017 10:41:20 AM Referred By: Confirmed By:CAROLINE BURKS MD
--- NOTE | 2017-06-01 15:25 | DS ---
Physical Examination Vital Signs: Vital Signs Temperature 36.8 C 06/01/17 12:33 Pulse Rate 68 06/01/17 12:33 Respiratory Rate 14 06/01/17 12:33 Blood Pressure 135/66 06/01/17 12:33 O2 Sat by Pulse Oximetry (%) 97 06/01/17 12:33 Discharge Summary Reason For Visit: HYPOXIA,SECONDARY ANEMIA Condition: Good - Instructions Diet, Activity, Other Instructions: resume previous diet and activity Referrals: Carlito Longo MD [Primary Care Provider] - Disposition: SNF FACILITY - Home Medications Comprehensive Discharge Medication List: Ambulatory Orders Albuterol Sulfate Inhaler - [Ventolin HFA Inhaler -] 2 inh IH Q6H PRN 04/11/16 Miscellaneous Medical Supply [Wound Vac -] 1 each ASDIR #1 unit 09/06/16 Insulin (Levemir) [Levemir Flexpen -] 10 units SQ HS 11/22/16 Nilotinib HCl [Tasigna] 2 cap PO BID 11/22/16 Oxycodone HCl [Roxicodone -] 10 mg PO Q4H PRN MDD 60mg 04/20/17 Arformoterol Tartrate [Brovana -] 1 amp NEB BID amp 04/26/17 Insulin Lispro [Humalog] 100 unit SQ PRN 05/03/17 Torsemide [Demadex -] 40 mg PO BID 05/03/17 Acetaminophen [Tylenol .Regular Strength -] 650 mg PO Q6H PRN #0 tablet Aspirin [ASA -] 81 mg PO DAILY tab.chew 05/13/17 Collagenase Clostridium Hist. [Santyl -] 1 applic TP DAILY tube 05/13/17 Docusate Sodium [Colace -] 300 mg PO HS #30 cap 05/13/17 Enoxaparin [Lovenox -] 40 mg SQ DAILY #30 misc 05/13/17 Gabapentin [Neurontin -] 600 mg PO TID tab 05/13/17 Insulin Sliding Scale [Novolog Vial Sliding Scale -] 1 vial SQ ACHS units 05/13 Levothyroxine [Synthroid -] 25 mcg PO DAILY@0700 tablet 05/13/17 Lisinopril [Prinivil] 20 mg PO BID tablet 05/13/17 Magnesium Oxide [Mag-Ox -] 400 mg PO BID tablet 05/13/17 Metformin HCl [Glucophage -] 1,000 mg PO BID@0700,1630 tablet 05/13/17 Picc Line Flush [Picc Line Flush -] 8 ml IVPUSH PRN PRN #0 ml 05/13/17 Sennosides [Senna -] 2 tab PO HS PRN #30 tablet 05/13/17 Vancomycin 1,250 mg IVPB DAILY@1400 vial 05/13/17 Docusate Sodium [Colace -] 300 mg PO HS 06/01/17 Enoxaparin [Lovenox -] 40 mg SQ DAILY 06/01/17 Ferrous Sulfate [Feosol] 325 mg PO BID 06/01/17 Polyethylene Glycol 3350 [Miralax 119 gm Btl -] 17 gm PO DAILY 06/01/17
[2017-06-01 15:34] LABS: MCH 29.8 pg (25.7-33.7); MCHC 33.7 g/dl (32.0-36.0); MEAN CELL VOLUME 88.7 fl (80-96); MEAN PLT VOLUME 8.2 fl (7.5-11.1); PLATELET COUNT 164 K/MM3 (134-434); RDW 17.6 % (11.6-15.6); WHITE BLOOD COUNT 6.3 K/mm3 (4.0-10.0)
[2017-06-01 18:01] VITALS: BP 137/68; PULSE 72; TEMP 98.6
[2017-06-01] MEDS ORDERED: DOCUSATE SODIUM 100 MG CAPSULE (FP) PO SCH (22:00)
[2017-06-01] MEDS ORDERED: INSULIN DETEMIR 100 UNITS/ML MDV SQ SCH (22:00)
== END 2017-06-01 18:37 ==
LOC: JER 00:41 → INTOOBSV 01:57 → JERBED 01:57
PROVIDERS: ADMIT Internal Medicine; ATTEND Internal Medicine
PROC: 30233N1 Transfusion of Nonautologous Red Blood Cells into Peripheral Vein, Percutaneous Approach (ICD-10-PCS; principal; 2017-06-01)
PROC: 3E033GC Introduction of Other Therapeutic Substance into Peripheral Vein, Percutaneous Approach (ICD-10-PCS; 2017-06-01)
PROC: 3E013GC Introduction of Other Therapeutic Substance into Subcutaneous Tissue, Percutaneous Approach (ICD-10-PCS; 2017-06-01)
DX: R09.02 Hypoxemia (principal); D64.9 Anemia, unspecified; I10 Essential (primary) hypertension; E78.00 Pure hypercholesterolemia, unspecified; E11.9 Type 2 diabetes mellitus without complications; E03.9 Hypothyroidism, unspecified; C92.10 Chronic myeloid leukemia, BCR/ABL-positive, not having achieved remission; J44.9 Chronic obstructive pulmonary disease, unspecified; F32.9 Major depressive disorder, single episode, unspecified; Z88.8 Allergy status to other drugs, medicaments and biological substances; Z79.4 Long term (current) use of insulin; Z79.82 Long term (current) use of aspirin; Z79.84 Long term (current) use of oral hypoglycemic drugs; Z87.440 Personal history of urinary (tract) infections; Z87.891 Personal history of nicotine dependence; Z45.2 Encounter for adjustment and management of vascular access device
CPT/HCPCS: 36415; 36430; 71010-TC; 80053; 83010; 83615; 83735; 84100; 84550; 85025; 85027; 85044; 85610; 86850; 86900; 86901; 86922; 93005; 93010; 99283-25; G0378; P9038; P9058

== ENCOUNTER 2017-07-07 14:53 | Inpatient (IN) | payer OTHER, MEDICARE ==
--- NOTE | 2017-07-07 15:21 | PDOC ---
Attending Attestation - Resident Resident Name: Blessing Ohara - ED Attending Attestation I have performed the following: I have examined & evaluated the patient, The case was reviewed & discussed with the resident, I agree w/resident's findings & plan, Exceptions are as noted - HPI HPI: 07/07/17 15:20 Shaking since she left the hospital a few days ago - Physicial Exam PE: 07/07/17 15:20 Awake Alert Conversant - Medical Decision Making 07/07/17 15:[address] Ohara's Assessment and Plan
--- NOTE | 2017-07-07 16:05 | PDOC ---
History of Present Illness - General Chief Complaint: AV shunt bleeding Stated Complaint: ABNORMAL LABS Time Seen by Provider: 07/07/17 15:03 - History of Present Illness Initial Comments: 07/07/17 17:12 Patient is a 66 y.o. 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 Patient endorses subjective fever and denies any chest pain, shortness of breath, chills, nausea, vomiting or diarrhea. Patient notes she has been tolerating PO intake and her BS is checked daily at [facility] where she resides. Patient also c/o chronic lower back pain. Past History - Past Medical History Allergies/Adverse Reactions: Allergies Allergy/AdvReac Type Severity Reaction Status Date / Time metoprolol Allergy Intermediate Rash Verified 06/20/17 10:27 Penicillins Allergy Verified 06/20/17 10:27 Home Medications: Ambulatory Orders Aa/Hydrolyzed Collagen, Whey [Lps 15-30 Liquid] 30 ml PO TID 06/20/17 Acetaminophen [Tylenol] 650 mg PO QID PRN 06/20/17 Albuterol 0.083% Nebulizer Pamella [Ventolin 0.083% Nebulizer Soln -] 1 neb NEB QID 06/20/17 Arformoterol Tartrate [Brovana] 15 mcg IH BID 06/20/17 Bisacodyl [Bisacodyl -] 10 mg PO DAILY PRN 06/20/17 Collagenase Clostridium Hist. [Santyl -] 1 applic TP DAILY 06/20/17 Docusate Sodium [Colace -] 300 mg PO HS 06/20/17 Enoxaparin [Lovenox -] 40 mg SQ DAILY 06/20/17 Ferrous Sulfate 325 mg PO BID 06/20/17 Gabapentin [Neurontin [DO NOT STOCK]] 600 mg PO TID 06/20/17 Insulin (Levemir) [Levemir Flexpen -] 10 units SQ HS 06/20/17 Insulin Lispro [Humalog] 0 unit SQ ASDIR 06/20/17 Levothyroxine [Synthroid -] 25 mcg PO DAILY 06/20/17 Magnesium Hydroxide [Milk of Magnesia -] 30 ml PO DAILY PRN 06/20/17 Metformin HCl 500 mg PO BID 06/20/17 Na Phos,M-B/Na Phos,Di-Ba [Fleet Enema] 133 ml RC ASDIR 06/20/17 Nilotinib HCl [Tasigna] 150 mg PO BID 06/20/17 Oxycodone HCl 10 mg PO Q4H 06/20/17 Polyethylene Glycol 3350 [Miralax 119 gm Btl -] 17 gm PO DAILY 06/20/17 Sennosides [Senna] 2 tab PO DAILY 06/20/17 Tasigna 300 mg PO BIDAC 06/22/17 Torsemide [Demadex -] 20 mg PO DAILY tablet 07/03/17 Anemia: Yes Asthma: No Cancer: Yes (CML) Cardiac Disorders: No CVA: No COPD: Yes CHF: No DVT: Yes Dementia: No Diabetes: Yes (diabetic foot ulcer) GI Disorders: No Disorders: Yes (uti) HTN: Yes Hypercholesterolemia: Yes Liver Disease: Yes (fatty liver) Psychiatric Problems: Yes (depression) Seizures: No Thyroid Disease: Yes (HYPO) - Surgical History Abdominal Surgery: Yes (hernia) Appendectomy: No Cardiac Surgery: No Cholecystectomy: Yes Lung Surgery: No Neurologic Surgery: No Orthopedic Surgery: No - Immunization History Immunization Up to Date: Yes - Suicide/Smoking/Psychosocial Hx Smoking Status: Yes Smoking History: Never smoked Have you smoked in the past 12 months: No Number of Cigarettes Smoked Daily: 0 If you are a former smoker, when did you quit?: 10/25/2013 Cigars Per Day: 0 Information on smoking cessation initiated: No 'Breaking Loose' booklet given: 02/28/12 Hx Alcohol Use: No Drug/Substance Use Hx: No Substance Use Type: None Hx Substance Use Treatment: No *Physical Exam - Vital Signs Last Vital Signs Temp Pulse Resp BP Pulse Ox 101.0 F H 94 H 16 91/54 94 L 07/07/17 15:51 07/07/17 15:15 07/07/17 15:15 07/07/17 15:15 07/07/17 15:15 ED Treatment Course - LABORATORY CBC & Chemistry Diagram: 07/09/17 05:10 07/09/17 05:10 - RADIOLOGY Radiology Studies Ordered: Category Date Time Status CHEST PA & LAT [RAD] Stat Radiology 07/07/17 15:18 Ordered CHEST X-RAY PORTABLE* [RAD] Stat Radiology 07/07/17 15:53 Ordered Medical Decision Making - Medical Decision Making 07/07/17 17:42 Patient is a 66 y.o. female who presents from [facility] with fever. As patient was intermittently tachycardic on PE, and febrile (101 degrees Farenheit) sepsis work-up initiated. CMP significant for K+ 5.7 w/no hemolysis --> Kayexelate; IV Tylenol for fever. 07/07/17 18:[address] Pena, Infectious Disease, who evaluated patient on 06/2017 admission. Requests Meropenem x1 for persistent Cornybacterium Strateum. 07/07/17 18:20 Patient admitted to inpatient medicine service under Dr. Magana. *DC/Admit/Observation/Transfer Diagnosis at time of Disposition: Sepsis
[2017-07-07 16:24] LABS: VENOUS PH 7.33 (7.32-7.42)
[2017-07-07 16:27] LABS: VENOUS BLOOD GAS HCO3 22.9 meq/L (19-25)
[2017-07-07 16:38] LABS: BASOPHIL 0.5 % (0-2.0); EOSINOPHIL 13.7 % (0-4.5); MCH 28.8 pg (25.7-33.7); MCHC 32.6 g/dl (32.0-36.0); MEAN CELL VOLUME 88.1 fl (80-96); MEAN PLT VOLUME 8.3 fl (7.5-11.1); NEUTROPHILS 61.2 % (42.8-82.8); PLATELET COUNT 145 K/MM3 (134-434); RDW 17.5 % (11.6-15.6); WHITE BLOOD COUNT 10.9 K/mm3 (4.0-10.0)
[2017-07-07 16:46] LABS: ALBUMIN 2.1 g/dl (3.4-5.0); ANION GAP 8 (8-16); BILIRUBIN,TOTAL 0.6 mg/dL (0.2-1.0); CALCIUM 7.7 mg/dL (8.5-10.1); CO2 23 mmol/L (21-32); CREATININE 2.5 mg/dL (0.55-1.02); GLUCOSE,RANDOM 222 mg/dL (74-106); SGOT/AST 13 U/L (15-37); SGPT/ALT 14 U/L (12-78)
[2017-07-07 16:47] LABS: ALBUMIN 2.2 g/dl (3.4-5.0); ALK PHOS 125 U/L (45-117); ANION GAP 8 (8-16); BILIRUBIN,TOTAL 0.5 mg/dL (0.2-1.0); CALCIUM 7.6 mg/dL (8.5-10.1); CO2 23 mmol/L (21-32); CREATININE 2.5 mg/dL (0.55-1.02); GLUCOSE,RANDOM 222 mg/dL (74-106); SGOT/AST 11 U/L (15-37); SGPT/ALT 14 U/L (12-78)
[2017-07-07 16:48] LABS: INR 1.16 (0.82-1.09); PROTHROMBIN TIME (PATIENT) 13.1 SEC (9.98-11.88)
[2017-07-07 16:49] LABS: ALK PHOS 123 U/L (45-117); CPK 74 IU/L (26-192); TOT PROT 6.9 g/dl (6.4-8.2); TROPONIN I < 0.02 ng/ml (0.00-0.05)
[2017-07-07 16:50] LABS: ACTIVATED PTT 30.7 SECONDS (26.9-34.4)
[2017-07-07] MEDS ORDERED: SODIUM CHLORIDE 0.9% 1000 ML INFUS.BAG IV ONE (17:24)
[2017-07-07] MEDS ORDERED: SODIUM POLYSTYRENE SULFONATE 15 GM/60 ML BOTTLE PO ONE (17:24)
[2017-07-07] MEDS ORDERED: SODIUM POLYSTYRENE SULFONATE 15 GM/60 ML BOTTLE ONE (18:00)
[2017-07-07] MEDS ORDERED: MEROPENEM 1,000 MG in DEXTROSE 5%-WATER - 100 ML IVPB ONE (18:02)
[2017-07-07] MEDS ORDERED: ACETAMINOPHEN 1000 MG/100 ML VIAL (NON FORMULARY) IVPB ONE (18:20)
[2017-07-07 18:40] LABS: URINE APPEARANCE TURBID; URINE BILIRUBIN NEGATIVE (NEGATIVE); URINE BLOOD 1+ (NEGATIVE); URINE COLOR YELLOW; URINE GLUCOSE (UA) NEGATIVE (NEGATIVE); URINE KETONE NEGATIVE (NEGATIVE); URINE NITRITE NEGATIVE (NEGATIVE); URINE UROBILINOGEN NEGATIVE mg/dL (0.2-1.0)
[2017-07-07 18:59] LABS: URINE PROTEIN 2+ (NEGATIVE)
[2017-07-07 19:31] LABS: URINE MUCUS FEW
[2017-07-07] MEDS ORDERED: ACETAMINOPHEN INJECTION 100 ML IVPB ONE (19:38)
[2017-07-07] MEDS ORDERED: SODIUM CHLORIDE 1,000 ML IV SCH (19:45)
[2017-07-07] MEDS ORDERED: DEXTROSE 50%-WATER - 25 GM/50 ML VIAL IVPUSH ONE (19:46)
[2017-07-07] MEDS ORDERED: INSULIN REGULAR HUMAN 100 UNITS/ML *VIAL IVPUSH ONE (19:46)
[2017-07-07] MEDS ORDERED: ALBUTEROL SO4 0.083% IH SOL 2.5 MG/3 ML VIAL.NEB. NEB ONE ×2 (19:47→20:26)
--- NOTE | 2017-07-07 20:25 | HP ---
CHIEF COMPLAINT: chills PCP: Dr. Longo HISTORY OF PRESENT ILLNESS: Patient is a 66 year old female with a PMHx of HTN, HLD , NIDDM, COPD, Diastolic CHF, hypothyroidism, CML (on chemo, unable to provide date of last chemo session) who was BIBEMS due to continuous "shaking" since her discharge from the hospital on 07/03/17. Patient was recently admitted and discharged for anemia secondary to her CML with chemotherapy. Patient states she feels like she is having the chills and has been nonstop associated with subjective fevers and fatigue. Patient endorses having a chronic rash all over her body that she is being treated for. According to ED staff, patient is being treated by Dr. Pena, ID physician, with Meropenem for Corynebacterium Striatum Otherwise, patient denies any nausea, vomiting, abdominal pain, chest pain, palpitations, shortness of breath, headaches, loss of consciousness, dysuria, frequency, urgency, hematuria. ER course was notable for: (1) Meroponem IV (2) 1 Bolus IVNS (3) Kayexalate 30 mg PO for hyperkalemia Recent Travel: Denies PAST MEDICAL HISTORY: HTN, HLD , NIDDM, COPD, Diastolic CHF, hypothyroidism, CML (diagnosed 5 yrs. ago ), Pulmonary Hypertension, Diabetic Retinopathy PAST SURGICAL HISTORY: Cholecystectomy, hernia repair, , biliary pancreatitis in 2013 requiring 2 ERCPs and stenting after sphincterotomy bleed Social History: Smoking: Former smoker. Quit in 2013 Alcohol: Denies Drugs: Denies Family History: Father ( 69 liver cancer), Mother ( 68 stomach cancer, schizophrenia) Allergies: metoprolol Allergy (Intermediate, Verified 06/20/17 10:27) Rash Penicillins Allergy (Verified 06/20/17 10:27) HOME MEDICATIONS: Home Medications Medication Instructions Recorded Aa/Hydrolyzed Collagen, Whey [Lps 30 ml PO TID 06/20/17 15-30 Liquid] Acetaminophen [Tylenol] 650 mg PO QID PRN 06/20/17 Albuterol 0.083% Nebulizer Pamella 1 neb NEB QID 06/20/17 [Ventolin 0.083% Nebulizer Soln -] Arformoterol Tartrate [Brovana] 15 mcg IH BID 06/20/17 Bisacodyl [Bisacodyl -] 10 mg PO DAILY PRN 06/20/17 Collagenase Clostridium Hist. 1 applic TP DAILY 06/20/17 [Santyl -] Docusate Sodium [Colace -] 300 mg PO HS 06/20/17 Enoxaparin [Lovenox -] 40 mg SQ DAILY 06/20/17 Ferrous Sulfate 325 mg PO BID 06/20/17 Gabapentin [Neurontin [DO NOT 600 mg PO TID 06/20/17 STOCK]] Insulin (Levemir) [Levemir Flexpen 10 units SQ HS 06/20/17 -] Insulin Lispro [Humalog] 0 unit SQ ASDIR 06/20/17 Levothyroxine [Synthroid -] 25 mcg PO DAILY 06/20/17 Magnesium Hydroxide [Milk of 30 ml PO DAILY PRN 06/20/17 Magnesia -] Metformin HCl 500 mg PO BID 06/20/17 Na Phos,M-B/Na Phos,Di-Ba [Fleet 133 ml RC ASDIR 06/20/17 Enema] Nilotinib HCl [Tasigna] 150 mg PO BID 06/20/17 Oxycodone HCl 10 mg PO Q4H 06/20/17 Polyethylene Glycol 3350 [Miralax 17 gm PO DAILY 06/20/17 119 gm Btl -] Sennosides [Senna] 2 tab PO DAILY 06/20/17 Tasigna 300 mg PO BIDAC 06/22/17 Torsemide [Demadex -] 20 mg PO DAILY tablet 07/03/17 REVIEW OF SYSTEMS CONSTITUTIONAL: chills, generalized weakness, malaise, subjective fevers Absent: diaphoresis, loss of appetite, weight change HEENT: Absent: rhinorrhea, nasal congestion, throat pain, throat swelling, difficulty swallowing, mouth swelling, ear pain, eye pain, visual changes CARDIOVASCULAR: Absent: chest pain, syncope, palpitations, irregular heart rate, lightheadedness , peripheral edema RESPIRATORY: Absent: cough, shortness of breath, dyspnea with exertion, orthopnea, wheezing, stridor, hemoptysis GASTROINTESTINAL: Absent: abdominal pain, abdominal distension, nausea, vomiting, diarrhea, constipation, melena, hematochezia GENITOURINARY: Absent: dysuria, frequency, urgency, hesitancy, hematuria, flank pain, genital pain MUSCULOSKELETAL: Absent: myalgia, arthralgia, joint swelling, back pain, neck pain SKIN: Macular rash Absent: rash, itching, pallor HEMATOLOGIC/IMMUNOLOGIC: Absent: easy bleeding, easy bruising, lymphadenopathy, frequent infections ENDOCRINE: Absent: unexplained weight gain, unexplained weight loss, heat intolerance, cold intolerance NEUROLOGIC: Absent: headache, focal weakness or paresthesias, dizziness, unsteady gait, seizure, mental status changes, bladder or bowel incontinence PSYCHIATRIC: Absent: anxiety, depression, suicidal or homicidal ideation, hallucinations. PHYSICAL EXAMINATION Vital Signs - 24 hr 07/07/17 07/07/17 07/07/17 15:15 15:51 16:40 Temperature 99.5 F 101.0 F H 101.0 F H Pulse Rate 94 H 92 H Pulse Rate [ Left Apical] Respiratory 16 16 Rate Blood Pressure 91/54 Blood Pressure [Right Arm] O2 Sat by Pulse 94 L 98 Oximetry (%) 07/07/17 18:36 Temperature 99.0 F Pulse Rate Pulse Rate [ 88 Left Apical] Respiratory 16 Rate Blood Pressure Blood Pressure 116/74 [Right Arm] O2 Sat by Pulse 100 Oximetry (%) GENERAL: Awake, alert, anxious, oriented x2 and in no acute distress. HEAD: Normal with no signs of trauma. EYES: Pupils equal, round and reactive to light, sclera anicteric, conjunctiva clear. EARS, NOSE, THROAT: Oropharynx clear without exudates. Moist mucous membranes. NECK: (-) Bruits, (-) lymphadenopathy, JVD, or masses. LUNGS: Decreased breath anteriorly auscultated with no wheezes, rales, or rhonchi. HEART: Regular rate and rhythm, normal S1 and S2 without murmur, rub or gallop. ABDOMEN: Soft, obese, nontender, not distended, normoactive bowel sounds, no guarding, no rebound. MUSCULOSKELETAL: No CVA tenderness. LOWER EXTREMITIES: 2+ pitting edema bilaterally with lymphedema. NEUROLOGICAL: Cranial nerves II-XII intact. Normal speech. PSYCHIATRIC: Cooperative. Good eye contact. SKIN: Diffuse macular papular rash throughout bilateral LE and UE, abdomen, chest, Warm normal capillary refill. Laboratory Results - last 24 hr 07/07/17 07/07/17 07/07/17 16:01 18:33 Unknown WBC 10.9 H RBC 2.49 L Hgb 7.2 L D Hct 22.0 L MCV 88.1 MCH 28.8 MCHC 32.6 RDW 17.5 H Plt Count 145 MPV 8.3 Neutrophils % 61.2 D Lymphocytes % 16.3 D Monocytes % 8.3 Eosinophils % 13.7 H Basophils % 0.5 PT with INR INR PTT (Actin FS) VBG pH 7.33 POC VBG pCO2 44.6 POC VBG pO2 59.8 H D Mixed VBG HCO3 22.9 Sodium Potassium Chloride Carbon Dioxide Anion Gap BUN Creatinine Creat Clearance w eGFR Random Glucose Lactic Acid Calcium Magnesium Total Bilirubin AST ALT Alkaline Phosphatase Creatine Kinase Troponin I Total Protein Albumin Urine Color Yellow Urine Appearance Turbid Urine pH 5.0 Ur Specific [place] 1.011 Urine Protein 2+ H Urine Glucose (UA) Negative Urine Ketones Negative Urine Blood 1+ H Urine Nitrite Negative Urine Bilirubin Negative Urine Urobilinogen Negative Ur Epithelial Cells Few Urine Mucus Few Blood Type Antibody Screen 07/07/17 07/07/17 07/07/17 Unknown Unknown Unknown WBC RBC Hgb Hct MCV MCH MCHC RDW Plt Count MPV Neutrophils % Lymphocytes % Monocytes % Eosinophils % Basophils % PT with INR INR PTT (Actin FS) VBG pH POC VBG pCO2 POC VBG pO2 Mixed VBG HCO3 Sodium 133 L Potassium 5.7 H Chloride 102 Carbon Dioxide 23 Anion Gap 8 BUN 60 H D Creatinine 2.5 H D Creat Clearance w eGFR 19.15 Random Glucose 222 H Lactic Acid 1.4 Calcium 7.6 L Magnesium 1.8 Total Bilirubin 0.5 D AST 11 L D ALT 14 Alkaline Phosphatase 125 H D Creatine Kinase Troponin I Total Protein 7.0 Albumin 2.2 L Urine Color Urine Appearance Urine pH Ur Specific [place] Urine Protein Urine Glucose (UA) Urine Ketones Urine Blood Urine Nitrite Urine Bilirubin Urine Urobilinogen Ur Epithelial Cells Urine Mucus Blood Type Antibody Screen 07/07/17 07/07/17 07/07/17 Unknown Unknown Unknown WBC RBC Hgb Hct MCV MCH MCHC RDW Plt Count MPV Neutrophils % Lymphocytes % Monocytes % Eosinophils % Basophils % PT with INR 13.10 H INR 1.16 H PTT (Actin FS) 30.7 VBG pH POC VBG pCO2 POC VBG pO2 Mixed VBG HCO3 Sodium 133 L Potassium 5.7 H Chloride 102 Carbon Dioxide 23 Anion Gap 8 BUN 61 H Creatinine 2.5 H Creat Clearance w eGFR 19.15 Random Glucose 222 H Lactic Acid Calcium 7.7 L Magnesium Total Bilirubin 0.6 AST 13 L ALT 14 Alkaline Phosphatase 123 H Creatine Kinase 74 Troponin I < 0.02 Total Protein 6.9 Albumin 2.1 L Urine Color Urine Appearance Urine pH Ur Specific [place] Urine Protein Urine Glucose (UA) Urine Ketones Urine Blood Urine Nitrite Urine Bilirubin Urine Urobilinogen Ur Epithelial Cells Urine Mucus Blood Type O POSITIVE Antibody Screen Negative ASSESSMENT/PLAN: Patient is a 66 year old female who was recently discharged on 07/03/17 for anemia secondary to CML on chemo and diffuse rash who returned today for chills and was found to have tachycardia and fever. Patient admitted for further monitoring and management. Sepsis likely secondary to UTI -Tachycardia >90, Fever >100.4 -U/A positive for 3+ Leukocyte esterase -Urine and blood cultures sent -IV NS @83mls/hr -Patient currently on IV Meropenem 1gm, as per ID. -Tylenol 650mg PO Q6H PRN for fevers Acute Kidney Injury -Likely prerenal -Continue IV NS @83mls/hr -Urine lytes ordered -Avoid nephrotoxic medications -Continue to monitor BMP Macular Papular Rash- Chronic and Improving -Wound cultures positive for Corynebacterium Striatum -Currently being managed by Dr. Pena, ID physician -Will continue IV Meropenem 1gm -ID consult placed -Antihistamine PRN if pruritic HyperKalemia -Likely secondary to ASA -Kayaxelate 30mg PO given in ED -Insulin, D5W, and albuterol ordered -Will continue to monitor BMP Anemia of Chronic Disease -Likely secondary to CML on chemotherapy as found in previous admission -Continue Ferrous Sulfate 325mg BID -Continue to monitor BMP -Heme/Onco consult placed CML on chemotherapy -Diagnosed 5 years ago -Currently on Tasigna but will hold until oncology evaluation -Oncology consult ordered Chronic Diastolic CHF- Controlled -In no acute exacerbation -Will hold Turosemide due to ASA COPD-Controlled -Continue Brovana 15mcg BID daily -Albuterol Nebulizer PRN Q6H NIDDMII -ISS -BGM HLD -On no medication. -Med rec to be done in the morning HTN -Controlled -Turosemide held due to ASA -Continue to monitor BP Hypothyroidism -Continue Synthroid 25mcg daily F/E/N -IV NS @83mls/hr -Hyperkalemia. Treated with Insulin, D5W, Albuterol and Kayaxelate -Sodium/Diabetic controlled diet Prophylaxis -High risk. SCD's for DVT. Will avoid heparin due to hgb of 7.2 Disposition -Full code -Will need to continue Meropenem. Visit type - Emergency Visit Emergency Visit: Yes ED Registration Date: 07/07/17 Care time: The patient presented to the Emergency Department on the above date and was hospitalized for further evaluation of their emergent condition. - New Patient This patient is new to me today: Yes Date on this admission: 07/08/17 - Critical Care Critical Care patient: No
[2017-07-07] MEDS ORDERED: INSULIN REGULAR HUMAN 100 UNITS/ML *VIAL ONE (20:26)
[2017-07-07] MEDS ORDERED: DEXTROSE 50%-WATER 25 GM/50 ML DISP.SYRIN ONE (20:26)
[2017-07-07] MEDS ORDERED: NILOTINIB HCL 150 MG PO SCH (22:00)
[2017-07-07] MEDS ORDERED: oxyCODONE HCL 5 MG TABLET ONE (23:01)
[2017-07-07 23:09] LABS: URINE RBC 18; URINE WBC 2849
[2017-07-07] MEDS: oxyCODONE HCL 5 MG TABLET PO PRN (23:14)
[2017-07-07] MEDS: INSULIN SLIDING SCALE (NOVOLOG) 1 VIAL SQ SCH (23:16)
[2017-07-07] MEDS: FERROUS SO4 325 MG TABLET (FP) PO SCH (23:16)
[2017-07-07 23:36] LABS: URINE LEUK ESTERASE 3+ (NEGATIVE)
[2017-07-08] MEDS ORDERED: ALBUTEROL SO4 0.083% IH SOL 2.5 MG/3 ML VIAL.NEB. NEB PRN (00:37)
[2017-07-08 01:34] VITALS: BMI 41.8
[2017-07-08] MEDS: oxyCODONE HCL 5 MG TABLET PO PRN ×2 (05:46→14:19)
[2017-07-08] MEDS: ACETAMINOPHEN 325 MG TABLET (FP) PO PRN ×3 (05:47→17:30)
[2017-07-08] MEDS: INSULIN SLIDING SCALE (NOVOLOG) 1 VIAL SQ SCH ×4 (06:01→21:12)
[2017-07-08] MEDS: LEVOTHYROXINE NA 25 MCG TABLET (FP) PO SCH (06:02)
[2017-07-08 08:30] LABS: MCH 29.5 pg (25.7-33.7); MCHC 33.3 g/dl (32.0-36.0); MEAN CELL VOLUME 88.6 fl (80-96); MEAN PLT VOLUME 8.2 fl (7.5-11.1); PLATELET COUNT 112 K/MM3 (134-434); RDW 18.1 % (11.6-15.6)
[2017-07-08 08:45] LABS: ANION GAP 8 (8-16); CO2 22 mmol/L (21-32); GLUCOSE,RANDOM 197 mg/dL (74-106); MAGNESIUM 1.7 mg/dL (1.8-2.4)
[2017-07-08 08:48] LABS: CREATININE 2.6 mg/dL (0.55-1.02); PHOSPHOROUS 5.7 mg/dL (2.5-4.9)
--- NOTE | 2017-07-08 09:27 | CON.ID ---
Consult Consult Specialty:: infectious diseases Reason for Consultation:: sepsis - History of Present Illness Chief Complaint: shaking History of Present Illness: 66 year old female with a PMHx of HTN, HLD , NIDDM, COPD, Diastolic CHF, hypothyroidism, CML who was BIBEMS due to continuous "shaking" since her discharge from the hospital on 07/03/17. Patient was recently admitted and discharged for anemia secondary to her CML with chemotherapy. Patient states she feels like she is having the chills and has been nonstop associated with subjective fevers and fatigue. Patient endorses having a chronic rash all over her body that she is being treated for. 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 History of Recent Travel: No Home Medications - Allergies Allergies/Adverse Reactions: Allergies Allergy/AdvReac Type Severity Reaction Status Date / Time metoprolol Allergy Intermediate Rash Verified 06/20/17 10:27 Penicillins Allergy Verified 06/20/17 10:27 - Home Medications Home Medications: Ambulatory Orders Aa/Hydrolyzed Collagen, Whey [Lps 15-30 Liquid] 30 ml PO TID 06/20/17 Acetaminophen [Tylenol] 650 mg PO QID PRN 06/20/17 Albuterol 0.083% Nebulizer Pamella [Ventolin 0.083% Nebulizer Soln -] 1 neb NEB QID 06/20/17 Arformoterol Tartrate [Brovana] 15 mcg IH BID 06/20/17 Bisacodyl [Bisacodyl -] 10 mg PO DAILY PRN 06/20/17 Collagenase Clostridium Hist. [Santyl -] 1 applic TP DAILY 06/20/17 Docusate Sodium [Colace -] 300 mg PO HS 06/20/17 Enoxaparin [Lovenox -] 40 mg SQ DAILY 06/20/17 Ferrous Sulfate 325 mg PO BID 06/20/17 Gabapentin [Neurontin [DO NOT STOCK]] 600 mg PO TID 06/20/17 Insulin (Levemir) [Levemir Flexpen -] 10 units SQ HS 06/20/17 Insulin Lispro [Humalog] 0 unit SQ ASDIR 06/20/17 Levothyroxine [Synthroid -] 25 mcg PO DAILY 06/20/17 Magnesium Hydroxide [Milk of Magnesia -] 30 ml PO DAILY PRN 06/20/17 Metformin HCl 500 mg PO BID 06/20/17 Na Phos,M-B/Na Phos,Di-Ba [Fleet Enema] 133 ml RC ASDIR 06/20/17 Nilotinib HCl [Tasigna] 150 mg PO BID 06/20/17 Oxycodone HCl 10 mg PO Q4H 06/20/17 Polyethylene Glycol 3350 [Miralax 119 gm Btl -] 17 gm PO DAILY 06/20/17 Sennosides [Senna] 2 tab PO DAILY 06/20/17 Tasigna 300 mg PO BIDAC 06/22/17 Torsemide [Demadex -] 20 mg PO DAILY tablet 07/03/17 Family Disease History - Family Disease History Family Disease History: CA: Father ( 69 liver cancer), Mother ( 68 stomach cancer, schizophrenia) Review of Systems - Review of Systems Constitutional: reports: Other (shaking) Eyes: reports: No Symptoms HENT: reports: No Symptoms Neck: reports: No Symptoms Cardiovascular: reports: No Symptoms Respiratory: reports: No Symptoms Gastrointestinal: reports: No Symptoms Genitourinary: reports: No Symptoms Musculoskeletal: reports: No Symptoms Integumentary: reports: Rash Neurological: reports: No Symptoms Endocrine: reports: No Symptoms Hematology/Lymphatic: reports: No Symptoms Psychiatric: reports: No Symptoms Physical Exam Vital Signs: Vital Signs Temperature 98.5 F 07/08/17 07:46 Pulse Rate 161 H 07/08/17 07:46 Respiratory Rate 18 07/08/17 07:46 Blood Pressure 97/48 07/08/17 07:46 O2 Sat by Pulse Oximetry (%) 100 07/08/17 01:07 Constitutional: Yes: Calm, Mild Distress Eyes: Yes: Conjunctiva Clear HENT: Yes: Atraumatic, Normocephalic Neck: Yes: Supple Cardiovascular: Yes: Regular Rate and Rhythm Respiratory: Yes: Regular, CTA Bilaterally Gastrointestinal: Yes: Normal Bowel Sounds, Soft Musculoskeletal: Yes: WNL Extremities: Yes: Other Wound/Incision: Yes: Dressing Dry and Intact Neurological: Yes: Alert, Oriented Psychiatric: Yes: Alert, Oriented Labs: CBC, BMP 07/08/17 07:00 07/08/17 07:00 Assessment/Plan patient well known to me and who is very immunocompromised coming to the hospital because of shaking patient was found to ahve very low h and h Patient is a 66 year old female who was recently discharged on 07/03/17 for anemia secondary to CML on chemo and diffuse rash who returned today for chills and was found to have tachycardia and fever. Patient admitted for further monitoring and management this patient is very fragile and with cml. 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
[2017-07-08] MEDS ORDERED: ALBUTEROL SO4 0.083% IH SOL 2.5 MG/3 ML VIAL.NEB. NEB SCH (10:00)
[2017-07-08] MEDS ORDERED: VANCOMYCIN 1 GRAM (PRE-DOCKED) 1,000 MG/250 ML BAG IVPB ONE (10:00)
[2017-07-08] MEDS ORDERED: MEROPENEM 1 GM in DEXTROSE 5%-WATER - 100 ML IVPB SCH (10:00)
[2017-07-08] MEDS ORDERED: MEROPENEM 500 MG VIAL (RESTRICTED TO ID) IVPB SCH (10:00)
[2017-07-08 10:22] LABS: URINE MUCUS FEW; URINE RBC 18; URINE WBC 2849
[2017-07-08] MEDS: FERROUS SO4 325 MG TABLET (FP) PO SCH ×2 (11:16→21:11)
[2017-07-08] MEDS ORDERED: VANCOMYCIN 1,000 MG in DEXTROSE 5%-WATER - 250 ML IVPB ONE (11:30)
[2017-07-08] MEDS: MEROPENEM 500 MG PUSH 10 ML IVPUSH SCH ×2 (14:21→17:38)
--- NOTE | 2017-07-08 15:25 | PN ---
Progress Note (short form) - Note Progress Note: Last Vital Signs Patient known to us from admission last week. She was sent from [place] for chills chart reviewed. Pt seen and examined. O/E: Ill appearing female, shaking erythematous skin all over ( looked slightly better than last week) CTA b/l Hill in place LE changes better than last week AAOx3 felt very warm to touch Temp Pulse Resp BP Pulse Ox 98.5 F 161 H 18 97/48 100 07/08/17 07:46 07/08/17 07:46 07/08/17 07:46 07/08/17 07:46 07/08/17 01:07 CBC, BMP 07/08/17 07:00 07/08/17 07:00 Current Medications Generic Name Dose Route Start Last Admin Trade Name Freq PRN Reason Stop Dose Admin Acetaminophen 650 mg 07/07/17 19:54 07/08/17 14:20 Tylenol - PO 650 mg Q6H PRN Administration PAIN Albuterol Sulfate 1 amp 07/08/17 00:37 Ventolin 0.083% Nebulizer Soln - NEB Q6H PRN SHORT OF BREATH/WHEEZING Arformoterol Tartrate 1 amp 07/08/17 12:30 Brovana (Restricted To Pulmonology/Resp) - NEB BID JOVITA Ferrous Sulfate 325 mg 07/07/17 22:00 07/08/17 11:16 Feosol - PO 325 mg BID JOVITA Administration Sodium Chloride 1,000 mls @ 83 mls/hr 07/07/17 19:45 07/07/17 20:00 Normal Saline - IV 83 mls/hr ASDIR JOVITA Administration Meropenem 10 mls @ 120 mls/hr 07/08/17 12:30 07/08/17 14:21 Merrem (Restricted To Id) - IVPUSH 120 mls/hr Q8H-IV JOVITA Administration Insulin Aspart 1 vial 07/07/17 22:00 07/08/17 11:16 Novolog Vial Sliding Scale - SQ 2 units ACHS JOVITA Administration Protocol Levothyroxine Sodium 25 mcg 07/08/17 07:00 07/08/17 06:02 Synthroid - PO 25 mcg AM JOVITA Administration Oxycodone HCl 10 mg 07/07/17 20:00 07/08/17 14:19 Roxicodone - PO 10 mg Q4H PRN Administration Vancomycin HCl 1,000 mg 07/10/17 10:00 Vancomycin (Pre-Docked) IVPB Q2D JOVITA CML on nilotonib admitted with sepsis, was looking good last week hold Nilotinib f/u cultures Low hgb, likely from acute infection/chemo GI w/u last visit noted. renal/ID f/u PRBC prn M-spike likely reactive repeat CBC will need to consider derm re-eval if the erythema stays the same on her skin renetta GARCIA
--- NOTE | 2017-07-08 16:40 | CONSULT ---
Consult Consult Specialty:: Nephrology Reason for Consultation:: ASA - History of Present Illness Chief Complaint: chills History of Present Illness: Pt is a 66 year old female with pmhx of HTN, chol. CML, DM, hypothyroidism, CHF and COPD who presents to the ER with chills. She was recently discharged from the hospital. She is awake and complains of chills and feeling cold. She was found to be anemic. I was called to evaluate her for ASA. She denies shortness of breath. She does complain of lower ext edema however she feels that her legs are less swollen then they had been. 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 History of Recent Travel: No Home Medications - Allergies Allergies/Adverse Reactions: Allergies Allergy/AdvReac Type Severity Reaction Status Date / Time metoprolol Allergy Intermediate Rash Verified 06/20/17 10:27 Penicillins Allergy Verified 06/20/17 10:27 - Home Medications Home Medications: Ambulatory Orders Aa/Hydrolyzed Collagen, Whey [Lps 15-30 Liquid] 30 ml PO TID 06/20/17 Acetaminophen [Tylenol] 650 mg PO QID PRN 06/20/17 Albuterol 0.083% Nebulizer Pamella [Ventolin 0.083% Nebulizer Soln -] 1 neb NEB QID 06/20/17 Arformoterol Tartrate [Brovana] 15 mcg IH BID 06/20/17 Bisacodyl [Bisacodyl -] 10 mg PO DAILY PRN 06/20/17 Collagenase Clostridium Hist. [Santyl -] 1 applic TP DAILY 06/20/17 Docusate Sodium [Colace -] 300 mg PO HS 06/20/17 Enoxaparin [Lovenox -] 40 mg SQ DAILY 06/20/17 Ferrous Sulfate 325 mg PO BID 06/20/17 Gabapentin [Neurontin [DO NOT STOCK]] 600 mg PO TID 06/20/17 Insulin (Levemir) [Levemir Flexpen -] 10 units SQ HS 06/20/17 Insulin Lispro [Humalog] 0 unit SQ ASDIR 06/20/17 Levothyroxine [Synthroid -] 25 mcg PO DAILY 06/20/17 Magnesium Hydroxide [Milk of Magnesia -] 30 ml PO DAILY PRN 06/20/17 Metformin HCl 500 mg PO BID 06/20/17 Na Phos,M-B/Na Phos,Di-Ba [Fleet Enema] 133 ml RC ASDIR 06/20/17 Nilotinib HCl [Tasigna] 150 mg PO BID 06/20/17 Oxycodone HCl 10 mg PO Q4H 06/20/17 Polyethylene Glycol 3350 [Miralax 119 gm Btl -] 17 gm PO DAILY 06/20/17 Sennosides [Senna] 2 tab PO DAILY 06/20/17 Tasigna 300 mg PO BIDAC 06/22/17 Torsemide [Demadex -] 20 mg PO DAILY tablet 07/03/17 Family Disease History - Family Disease History Family Disease History: CA: Father ( 69 liver cancer), Mother ( 68 stomach cancer, schizophrenia) Review of Systems - Review of Systems Constitutional: reports: Malaise Eyes: reports: No Symptoms HENT: reports: No Symptoms Neck: reports: No Symptoms Cardiovascular: reports: Edema. denies: Chest Pain Respiratory: reports: No Symptoms Gastrointestinal: reports: No Symptoms Genitourinary: reports: No Symptoms Neurological: reports: No Symptoms Endocrine: reports: No Symptoms Hematology/Lymphatic: reports: No Symptoms Physical Exam Vital Signs: Vital Signs Temperature 98.7 F 11/04/17 15:00 Pulse Rate 89 07/08/17 15:00 Respiratory Rate 20 07/08/17 15:00 Blood Pressure 122/57 07/08/17 15:00 O2 Sat by Pulse Oximetry (%) 100 07/08/17 01:07 Constitutional: Yes: Calm, Mild Distress HENT: Yes: Atraumatic Neck: Yes: Supple Cardiovascular: Yes: S1, S2 Respiratory: Yes: CTA Bilaterally, On Nasal O2 Gastrointestinal: Yes: Soft, Abdomen, Obese Renal/: Yes: Hill Present Musculoskeletal: Yes: Muscle Weakness Edema: Yes Edema: LLE: 2+, RLE: 2+ Integumentary: Yes: Venous Stasis Changes Neurological: Yes: Oriented Psychiatric: Yes: Oriented Labs: CBC, BMP 07/08/17 07:00 07/08/17 07:00 Laboratory Tests 07/07/17 07/07/17 07/07/17 18:33 Unknown Unknown WBC Hgb 7.2 L D Sodium 133 L Potassium 5.7 H Chloride 102 Carbon Dioxide 23 Anion Gap 8 BUN 61 H Creatinine 2.5 H Ur Specific [place] 1.011 Urine Protein 2+ H Urine Blood 1+ H 07/08/17 07/08/17 07/08/17 07:00 07:00 17:00 WBC 12.3 H D Hgb 6.6 L* 8.2 L D Sodium 136 Potassium 5.4 H Chloride 106 Carbon Dioxide 22 Anion Gap 8 BUN 65 H Creatinine 2.6 H Ur Specific [place] Urine Protein Urine Blood Imaging - Results Chest X-ray: Report Reviewed (no sig change) Problem List - Problems (1) MARIA ELENA positive Code(s): R76.8 - OTHER SPECIFIED ABNORMAL IMMUNOLOGICAL FINDINGS IN SERUM (2) Acute renal insufficiency Code(s): N28.9 - DISORDER OF KIDNEY AND URETER, UNSPECIFIED (3) Hyperkalemia Code(s): E87.5 - HYPERKALEMIA (4) Anemia Code(s): D64.9 - ANEMIA, UNSPECIFIED Qualifiers: Anemia type: other cause Other causes of anemia: acute posthemorrhagic Qualified Code(s): D62 - Acute posthemorrhagic anemia; D62 - Acute posthemorrhagic anemia (5) CHF (congestive heart failure) Code(s): I50.9 - HEART FAILURE, UNSPECIFIED Qualifiers: Congestive heart failure type: diastolic Congestive heart failure chronicity: chronic Qualified Code(s): I50.32 - Chronic diastolic ( congestive) heart failure; I50.32 - Chronic diastolic (congestive) heart failure ; I50.32 - Chronic diastolic (congestive) heart failure; I50.32 - Chronic diastolic (congestive) heart failure (6) CML (chronic myelocytic leukemia) Code(s): C92.10 - CHRONIC MYELOID LEUK, BCR/ABL-POSITIVE, NOT ACHIEVE REMIS (7) Cellulitis of leg, left Code(s): L03.116 - CELLULITIS OF LEFT LOWER LIMB (8) Diabetes Code(s): E11.9 - TYPE 2 DIABETES MELLITUS WITHOUT COMPLICATIONS (9) ASA (acute kidney injury) Code(s): N17.9 - ACUTE KIDNEY FAILURE, UNSPECIFIED Assessment/Plan Current Medications Generic Name Dose Route Start Last Admin Trade Name Freq PRN Reason Stop Dose Admin Acetaminophen 650 mg 07/07/17 19:54 07/08/17 14:20 Tylenol - PO 650 mg Q6H PRN Administration PAIN Albuterol Sulfate 1 amp 07/08/17 00:37 Ventolin 0.083% Nebulizer Soln - NEB Q6H PRN SHORT OF BREATH/WHEEZING Arformoterol Tartrate 1 amp 07/08/17 12:30 Brovana (Restricted To Pulmonology/Resp) - NEB BID JOVITA Ferrous Sulfate 325 mg 07/07/17 22:00 07/08/17 11:16 Feosol - PO 325 mg BID JOVITA Administration Sodium Chloride 1,000 mls @ 83 mls/hr 07/07/17 19:45 07/07/17 20:00 Normal Saline - IV 83 mls/hr ASDIR JOVITA Administration Meropenem 10 mls @ 120 mls/hr 07/08/17 12:30 07/08/17 17:38 Merrem (Restricted To Id) - IVPUSH 120 mls/hr Q8H-IV JOVITA Administration Insulin Aspart 1 vial 07/07/17 22:00 07/08/17 17:37 Novolog Vial Sliding Scale - SQ 2 units ACHS JOVITA Administration Protocol Levothyroxine Sodium 25 mcg 07/08/17 07:00 07/08/17 06:02 Synthroid - PO 25 mcg AM JOVITA Administration Oxycodone HCl 10 mg 07/07/17 20:00 07/08/17 14:19 Roxicodone - PO 10 mg Q4H PRN Administration Vancomycin HCl 1,000 mg 07/10/17 10:00 Vancomycin (Pre-Docked) IVPB Q2D [facility] Laboratory Tests 07/03/17 07/07/17 07/07/17 12:40 Unknown Unknown Creatinine 1.2 H 2.5 H D 2.5 H Laboratory Tests 06/27/17 06/27/17 06/30/17 05:30 05:30 05:35 MARIA ELENA Screen Positive H c-ANCA <1:20 Proteinase 3 (PR3) <3.5 p-ANCA <1:20 Atypical p-ANCA <1:20 Myeloperoxidase Ab <9.0 Double Strand DNA Ab Glomerular Base Memb Ab 4 Free [place] LC, Quant 295.5 H Free Lambda LC, Quant 334.0 H Free [place]/Lambda Ratio 0.88 07/01/17 06:00 MARIA ELENA Screen c-ANCA Proteinase 3 (PR3) p-ANCA Atypical p-ANCA Myeloperoxidase Ab Double Strand DNA Ab 4 Glomerular Base Memb Ab Free [place] LC, Quant Free [place]ambda LC, Quant Free [place]/Lambda Ratio Impression 1. ASA 2. anemia 3. rash 4. CML 5. hypothyroidism 6. HTN 7. chol 8. CHF 9. COPD 10. hyperkalemia 11. sepsis Plan - check kidney and bladder ultrasound - hold diuretics and jarek - cont with fluids - hg is improved - send and follow blood cultures - cont abx - consider transfer to ICU Dr Sanchez
[2017-07-08 17:13] LABS: MCH 28.5 pg (25.7-33.7); MCHC 32.7 g/dl (32.0-36.0); MEAN CELL VOLUME 87.3 fl (80-96); MEAN PLT VOLUME 8.2 fl (7.5-11.1); PLATELET COUNT 158 K/MM3 (134-434); RDW 17.5 % (11.6-15.6); WHITE BLOOD COUNT 12.3 K/mm3 (4.0-10.0)
[2017-07-08] MEDS ORDERED: PT OWN MED DRAWER 7, Y5N ONE (17:31)
--- NOTE | 2017-07-08 17:45 | PN ---
Progress Note (short form) - Note Progress Note: Patient seen and examined. C/O weakness and chills on & off Denies chest pain, cough with expectoration. Denies nausea, vomiting, abdominal pain. Recent Travel: Denies PAST MEDICAL HISTORY: HTN, HLD , NIDDM, COPD, Diastolic CHF, hypothyroidism, CML (diagnosed 5 yrs. ago ), Pulmonary Hypertension, Diabetic Retinopathy PAST SURGICAL HISTORY: Cholecystectomy, hernia repair, , biliary pancreatitis in 2014 requiring 2 ERCPs and stenting after sphincterotomy bleed Social History: Smoking: Former smoker. Quit in 2013 Alcohol: Denies Drugs: Denies Family History: Father ( 69 liver cancer), Mother ( 68 stomach cancer, schizophrenia) Allergies: metoprolol Allergy (Intermediate, Verified 06/20/17 10:27) Rash Penicillins Allergy (Verified 06/20/17 10:27) HOME MEDICATIONS: Home Medications Medication Instructions Recorded Aa/Hydrolyzed Collagen, Whey [Lps 30 ml PO TID 06/20/17 15-30 Liquid] Acetaminophen [Tylenol] 650 mg PO QID PRN 06/20/17 Albuterol 0.083% Nebulizer Pamella 1 neb NEB QID 06/20/17 [Ventolin 0.083% Nebulizer Soln -] Arformoterol Tartrate [Brovana] 15 mcg IH BID 06/20/17 Bisacodyl [Bisacodyl -] 10 mg PO DAILY PRN 06/20/17 Collagenase Clostridium Hist. 1 applic TP DAILY 06/20/17 [Santyl -] Docusate Sodium [Colace -] 300 mg PO HS 06/20/17 Enoxaparin [Lovenox -] 40 mg SQ DAILY 06/20/17 Ferrous Sulfate 325 mg PO BID 06/20/17 Gabapentin [Neurontin [DO NOT 600 mg PO TID 06/20/17 STOCK]] Insulin (Levemir) [Levemir Flexpen 10 units SQ HS 06/20/17 -] Insulin Lispro [Humalog] 0 unit SQ ASDIR 06/20/17 Levothyroxine [Synthroid -] 25 mcg PO DAILY 06/20/17 Magnesium Hydroxide [Milk of 30 ml PO DAILY PRN 06/20/17 Magnesia -] Metformin HCl 500 mg PO BID 06/20/17 Na Phos,M-B/Na Phos,Di-Ba [Fleet 133 ml RC ASDIR 10/17/17 Enema] Nilotinib HCl [Tasigna] 150 mg PO BID 06/20/17 Oxycodone HCl 10 mg PO Q4H 06/20/17 Polyethylene Glycol 3350 [Miralax 17 gm PO DAILY 06/20/17 119 gm Btl -] Sennosides [Senna] 2 tab PO DAILY 06/20/17 Tasigna 300 mg PO BIDAC 06/22/17 Torsemide [Demadex -] 20 mg PO DAILY tablet 07/03/17 REVIEW OF SYSTEMS CONSTITUTIONAL: chills, generalized weakness, malaise, subjective fevers Absent: diaphoresis, loss of appetite, weight change HEENT: Absent: rhinorrhea, nasal congestion, throat pain, throat swelling, difficulty swallowing, mouth swelling, ear pain, eye pain, visual changes CARDIOVASCULAR: Absent: chest pain, syncope, palpitations, irregular heart rate, lightheadedness , peripheral edema RESPIRATORY: Absent: cough, shortness of breath, dyspnea with exertion, orthopnea, wheezing, stridor, hemoptysis GASTROINTESTINAL: Absent: abdominal pain, abdominal distension, nausea, vomiting, diarrhea, constipation, melena, hematochezia GENITOURINARY: Absent: dysuria, frequency, urgency, hesitancy, hematuria, flank pain, genital pain MUSCULOSKELETAL: Absent: myalgia, arthralgia, joint swelling, back pain, neck pain SKIN: Macular rash Absent: rash, itching, pallor HEMATOLOGIC/IMMUNOLOGIC: Absent: easy bleeding, easy bruising, lymphadenopathy, frequent infections ENDOCRINE: Absent: unexplained weight gain, unexplained weight loss, heat intolerance, cold intolerance NEUROLOGIC: Absent: headache, focal weakness or paresthesias, dizziness, unsteady gait, seizure, mental status changes, bladder or bowel incontinence PSYCHIATRIC: Absent: anxiety, depression, suicidal or homicidal ideation, hallucinations. PHYSICAL EXAMINATION Vital Signs Period Temp Pulse Resp BP Sys/[place] Pulse Ox Last 24 Hr 98.1 F-99.0 F 78-161 16-20 97-122/48-74 100-100 GENERAL: Awake, alert, anxious, oriented x2 and in no acute distress. HEAD: Normal with no signs of trauma. EYES: Pupils equal, round and reactive to light, sclera anicteric, conjunctiva clear. EARS, NOSE, THROAT: Oropharynx clear without exudates. Moist mucous membranes. NECK: (-) Bruits, (-) lymphadenopathy, JVD, or masses. LUNGS: Decreased breath anteriorly auscultated with no wheezes, rales, or rhonchi. HEART: Regular rate and rhythm, normal S1 and S2 without murmur, rub or gallop. ABDOMEN: Soft, obese, nontender, not distended, normoactive bowel sounds, no guarding, no rebound. MUSCULOSKELETAL: No CVA tenderness. LOWER EXTREMITIES: 2+ pitting edema bilaterally with lymphedema. NEUROLOGICAL: Cranial nerves II-XII intact. Normal speech. PSYCHIATRIC: Cooperative. Good eye contact. SKIN: Diffuse macular papular rash throughout bilateral LE and UE, abdomen, chest, Warm normal capillary refill. CBC, BMP 07/08/17 17:00 07/08/17 07:00 Microbiology 07/07/17 16:12 Blood - Peripheral Venous Blood Culture - Preliminary NO GROWTH OBTAINED AFTER 24 HOURS, INCUBATION TO CONTINUE FOR 4 DAYS. 07/07/17 15:58 Blood - Peripheral Venous Blood Culture - Preliminary NO GROWTH OBTAINED AFTER 24 HOURS, INCUBATION TO CONTINUE FOR 4 DAYS. ASSESSMENT/PLAN: Patient is a 66 year old female who was recently discharged on 07/03/17 for anemia secondary to CML on chemo and diffuse rash who returned today for chills and was found to have tachycardia and fever. Patient admitted for further monitoring and management. Sepsis likely secondary to UTI -Tachycardia >90, Fever >100.4 -U/A positive for 3+ Leukocyte esterase -Urine culture pending. -Blood cultures prelim negative -Cpntinue IV NS @83mls/hr -Patient currently on IV Meropenem 1gm, as per ID. -Tylenol 650mg PO Q6H PRN for fevers Acute Kidney Injury -Likely prerenal -Continue IV NS @83mls/hr -Urine lytes ordered -Avoid nephrotoxic medications -Continue to monitor BMP Macular Papular Rash- Chronic and Improving -Wound cultures positive for Corynebacterium Striatum -Currently being managed by Dr. Pena, ID physician -Will continue IV Meropenem 1gm -ID consult placed -Antihistamine PRN if pruritic HyperKalemia -Likely secondary to ASA -Kayaxelate 30mg PO given in ED -Will continue to monitor BMP Anemia of Chronic Disease -Likely secondary to CML on chemotherapy as found in previous admission -Continue Ferrous Sulfate 325mg BID -Continue to monitor BMP -Heme/Onco consult appreciated CML on chemotherapy -Diagnosed 5 years ago -Hem & oncology consult appreciated. -Tasigna on hold. Chronic Diastolic CHF- Controlled -In no acute exacerbation -Will hold Torsemide due to ASA COPD-Controlled -Continue Brovana 15mcg BID daily -Albuterol Nebulizer PRN Q6H NIDDMII -ISS -BGM HLD -On no medication. -Med rec to be done in the morning HTN -Controlled -Torsemide held due to ASA -Continue to monitor BP Hypothyroidism -Continue Synthroid 25mcg daily F/E/N -IV NS @83mls/hr -Hyperkalemia. Treated with Insulin, D5W, Albuterol and Kayaxelate -Sodium/Diabetic controlled diet Prophylaxis -High risk. SCD's for DVT. Will avoid heparin due to low H/H Disposition -Full code -Will need to continue Meropenem.
[2017-07-08] MEDS ORDERED: SODIUM CHLORIDE 1,000 ML IV SCH (18:15)
[2017-07-08] MEDS ORDERED: INSULIN (NOVOLOG) ASPART 100 UNITS/ML 10ML VIAL ONE (21:10)
[2017-07-08] MEDS: ARFORMOTEROL TARTRATE 15 MCG/2 ML VIAL NEB SCH (22:30)
[2017-07-09] MEDS: MEROPENEM 500 MG PUSH 10 ML IVPUSH SCH ×3 (01:21→18:13)
[2017-07-09] MEDS ORDERED: MIDAZOLAM HCL 5 MG/1 ML Single Dose Vial IVPUSH ONE (06:29)
--- NOTE | 2017-07-09 06:52 | HOSP ---
Subjective - Review of Symptoms Subjective: Paged due to suspected new onset A fib with RVR at 130bpm. Pt most recent cycled BP was 76/54. Upon arrival pt resting in bed, awake, alert. Recycled BP which resulted in 68/ 56. EKG was done prior showing new onset A fib with RVR at 136. Senior and attending called. Pt feels palpitations, but does not have any CP/discomfort, SOB, headache, or lightheadedness. PE: SpO2: 94% Gen: Awake, alert, NAD Lungs: Rhonchi heard in lower bases; absent rales. Regular rate Cardiac: Tachycardic, irregularly irregular rhythm. S1 and S2 present ABD: Soft, obese, NT/ND Ext: Edematous Pt was put into Trendelenburg for BP elevation with minimal response. Without any signs of hypervolemia on lung exam and due to septicemic clinical picture, pt was bolused fluid and pads were prepared if cardioversion was indicated due to hemodynamically unstable A fib. Pt's BP responded within 150cc of fluid and repeat BP was 103/70 Decision to cardiovert was postponed Fluid to run; if BP improves will sign out to give Metoprolol 2.[address] Longo's management Cardiology consult: Dr. Laguna; Dr. Longo contacted Physical Examination Vital Signs: Vital Signs Temperature 101.1 F H 07/09/17 01:00 EST Pulse Rate 98 H 07/09/17 01:00 EST Respiratory Rate 20 07/09/17 01:00 EST Blood Pressure 109/69 07/09/17 01:00 EST O2 Sat by Pulse Oximetry (%) 98 07/08/17 20:38 Findings/Remarks: see findings Labs: CBC, BMP 07/08/17 17:00 07/08/17 07:00 Hospitalist Encounter Assessment: see findings
[2017-07-09] MEDS: INSULIN SLIDING SCALE (NOVOLOG) 1 VIAL SQ SCH ×4 (07:08→21:48)
[2017-07-09] MEDS: LEVOTHYROXINE NA 25 MCG TABLET (FP) PO SCH (07:09)
[2017-07-09 07:42] LABS: BASOPHIL 0.5 % (0-2.0); EOSINOPHIL 7.2 % (0-4.5); MCH 29.1 pg (25.7-33.7); MEAN CELL VOLUME 88.1 fl (80-96); MEAN PLT VOLUME 8.6 fl (7.5-11.1); NEUTROPHILS 74.1 % (42.8-82.8); PLATELET COUNT 132 K/MM3 (134-434); RDW 17.5 % (11.6-15.6); WHITE BLOOD COUNT 10.2 K/mm3 (4.0-10.0)
[2017-07-09 08:04] LABS: ALBUMIN 1.9 g/dl (3.4-5.0); ANION GAP 12 (8-16); CALCIUM 7.1 mg/dL (8.5-10.1); CO2 18 mmol/L (21-32); CREATININE 2.7 mg/dL (0.55-1.02); GLUCOSE,RANDOM 175 mg/dL (74-106); SGOT/AST 15 U/L (15-37); SGPT/ALT 20 U/L (12-78); TOT PROT 6.2 g/dl (6.4-8.2)
[2017-07-09 08:09] LABS: ALK PHOS 147 U/L (45-117); BILIRUBIN,TOTAL 0.7 mg/dL (0.2-1.0)
[2017-07-09] MEDS ORDERED: dilTIAZem HCL 50 MG/10 ML - 10 ML VIAL IVPUSH ONE (08:30)
[2017-07-09] MEDS ORDERED: PT OWN MED DRAWER 7, Y5N ONE (09:40)
[2017-07-09] MEDS: FERROUS SO4 325 MG TABLET (FP) PO SCH ×2 (09:50→21:47)
[2017-07-09] MEDS: ARFORMOTEROL TARTRATE 15 MCG/2 ML VIAL NEB SCH ×2 (09:55→22:35)
--- NOTE | 2017-07-09 12:37 | PN ---
Progress Note (short form) - Note Progress Note: seen and examined this am. looks a little better than yesterday. Events noted with afib RVR and Hypotension. O/E: NAD erythematous skin all over CTA b/l Hill in place LE changes yan AAOx3 Temp Pulse Resp BP Pulse Ox 98.3 F 102 H 24 97/42 97 07/09/17 06:00 07/09/17 12:21 07/09/17 11:00 07/09/17 12:00 07/09/17 12:21 CBC, BMP 07/09/17 05:10 07/09/17 05:10 Current Medications Generic Name Dose Route Start Last Admin Trade Name Freq PRN Reason Stop Dose Admin Acetaminophen 650 mg 07/07/17 19:54 07/08/17 17:30 Tylenol - PO 650 mg Q6H PRN Administration PAIN Albuterol Sulfate 1 amp 07/08/17 00:37 Ventolin 0.083% Nebulizer Soln - NEB Q6H PRN SHORT OF BREATH/WHEEZING Arformoterol Tartrate 1 amp 07/08/17 12:30 07/09/17 09:55 Brovana (Restricted To Pulmonology/Resp) - NEB 1 amp BID JOVITA Administration Ferrous Sulfate 325 mg 07/07/17 22:00 07/09/17 09:50 Feosol - PO 325 mg BID JOVITA Administration Meropenem 10 mls @ 120 mls/hr 07/08/17 12:30 07/09/17 11:07 Merrem (Restricted To Id) - IVPUSH 120 mls/hr Q8H-IV JOVITA Administration Sodium Chloride 1,000 mls @ 100 mls/hr 07/08/17 18:15 07/08/17 19:53 Normal Saline - IV Not Given ASDIR JOVITA Insulin Aspart 1 vial 07/07/17 22:00 07/09/17 07:08 Novolog Vial Sliding Scale - SQ Not Given ACHS JOVITA Protocol Levothyroxine Sodium 25 mcg 07/08/17 07:00 07/09/17 07:09 Synthroid - PO 25 mcg AM JOVITA Administration Oxycodone HCl 10 mg 07/07/17 20:00 07/08/17 14:19 Roxicodone - PO 10 mg Q4H PRN Administration Vancomycin HCl 1,000 mg 11/06/17 10:00 Vancomycin (Pre-Docked) IVPB Q2D JOVITA CML on nilotonib hold Nilotinib f/u cultures Low hgb, GI w/u last admission negative renal/ID f/u PRBC prn M-spike likely reactive repeat CBC will repeat BCR-ABL again. ?need of CT to eval further , cx negative thus far, continues to have fever.Now with new onset afib, cardiology following. looked up in [facility], not much change of Hgb from [facility] labs. will need to consider derm re-eval if the erythema stays the same on her skin dOusmanew
--- NOTE | 2017-07-09 12:47 | PN ---
Progress Note (short form) - Note Progress Note: Events from morning noted. Patient noted to be hypotensive/tachycardic. EKG: New onset afib with rvr. Patient received 150 cc of IV fluid with improvement in her BP. During the event, she did not have chest pain, shortness of breath, dizziness. C/O palpitation. Patient seen and examined. Denies chest pain, shortness of breath, palpitation or dizziness. Denies nausea, vomiting, abdominal pain. Temp of 101 airborne [employer] systems [employer]. Still tachycardic and slightly hypotensive Recent Travel: Denies PAST MEDICAL HISTORY: HTN, HLD , NIDDM, COPD, Diastolic CHF, hypothyroidism, CML (diagnosed 5 yrs. ago ), Pulmonary Hypertension, Diabetic Retinopathy PAST SURGICAL HISTORY: Cholecystectomy, hernia repair, , biliary pancreatitis in 2013 requiring 2 ERCPs and stenting after sphincterotomy bleed Social History: Smoking: Former smoker. Quit in 2013 Alcohol: Denies Drugs: Denies Family History: Father ( 69 liver cancer), Mother ( 68 stomach cancer, schizophrenia) Allergies: metoprolol Allergy (Intermediate, Verified 06/20/17 10:27) Rash Penicillins Allergy (Verified 06/20/17 10:27) HOME MEDICATIONS: Home Medications Medication Instructions Recorded Aa/Hydrolyzed Collagen, Whey [Lps 30 ml PO TID 06/20/17 15-30 Liquid] Acetaminophen [Tylenol] 650 mg PO QID PRN 06/20/17 Albuterol 0.083% Nebulizer Pamella 1 neb NEB QID 06/20/17 [Ventolin 0.083% Nebulizer Soln -] Arformoterol Tartrate [Brovana] 15 mcg IH BID 06/20/17 Bisacodyl [Bisacodyl -] 10 mg PO DAILY PRN 06/20/17 Collagenase Clostridium Hist. 1 applic TP DAILY 06/20/17 [Santyl -] Docusate Sodium [Colace -] 300 mg PO HS 06/20/17 Enoxaparin [Lovenox -] 40 mg SQ DAILY 06/20/17 Ferrous Sulfate 325 mg PO BID 06/20/17 Gabapentin [Neurontin [DO NOT 600 mg PO TID 06/20/17 STOCK]] Insulin (Levemir) [Levemir Flexpen 10 units SQ HS 06/20/17 -] Insulin Lispro [Humalog] 0 unit SQ ASDIR 06/20/17 Levothyroxine [Synthroid -] 25 mcg PO DAILY 06/20/17 Magnesium Hydroxide [Milk of 30 ml PO DAILY PRN 06/20/17 Magnesia -] Metformin HCl 500 mg PO BID 06/20/17 Na Phos,M-B/Na Phos,Di-Ba [Fleet 133 ml RC ASDIR 06/20/17 Enema] Nilotinib HCl [Tasigna] 150 mg PO BID 06/20/17 Oxycodone HCl 10 mg PO Q4H 06/20/17 Polyethylene Glycol 3350 [Miralax 17 gm PO DAILY 06/20/17 119 gm Btl -] Sennosides [Senna] 2 tab PO DAILY 06/20/17 Tasigna 300 mg PO BIDAC 06/22/17 Torsemide [Demadex -] 20 mg PO DAILY tablet 07/03/17 REVIEW OF SYSTEMS CONSTITUTIONAL: chills, generalized weakness, malaise, subjective fevers Absent: diaphoresis, loss of appetite, weight change HEENT: Absent: rhinorrhea, nasal congestion, throat pain, throat swelling, difficulty swallowing, mouth swelling, ear pain, eye pain, visual changes CARDIOVASCULAR: Absent: chest pain, syncope, palpitations, irregular heart rate, lightheadedness , peripheral edema RESPIRATORY: Absent: cough, shortness of breath, dyspnea with exertion, orthopnea, wheezing, stridor, hemoptysis GASTROINTESTINAL: Absent: abdominal pain, abdominal distension, nausea, vomiting, diarrhea, constipation, melena, hematochezia GENITOURINARY: Absent: dysuria, frequency, urgency, hesitancy, hematuria, flank pain, genital pain MUSCULOSKELETAL: Absent: myalgia, arthralgia, joint swelling, back pain, neck pain SKIN: Macular rash Absent: rash, itching, pallor HEMATOLOGIC/IMMUNOLOGIC: Absent: easy bleeding, easy bruising, lymphadenopathy, frequent infections ENDOCRINE: Absent: unexplained weight gain, unexplained weight loss, heat intolerance, cold intolerance NEUROLOGIC: Absent: headache, focal weakness or paresthesias, dizziness, unsteady gait, seizure, mental status changes, bladder or bowel incontinence PSYCHIATRIC: Absent: anxiety, depression, suicidal or homicidal ideation, hallucinations. PHYSICAL EXAMINATION Vital Signs (72 hours) 07/07/17 07/07/17 07/07/17 15:15 15:51 16:40 Temperature 99.5 F 101.0 F H 101.0 F H Pulse Rate 94 H 92 H Pulse Rate [ Left Apical] Respiratory 16 16 Rate Blood Pressure 91/54 Blood Pressure [Right Arm] O2 Sat by Pulse 94 L 98 Oximetry (%) 07/07/17 07/07/17 07/07/17 18:36 20:00 21:00 Temperature 99.0 F 98.2 F Pulse Rate Pulse Rate [ 88 78 Left Apical] Respiratory 16 16 Rate Blood Pressure Blood Pressure 116/74 110/62 [Right Arm] O2 Sat by Pulse 100 100 100 Oximetry (%) 07/08/17 07/08/17 07/08/17 01:07 07:46 15:00 Temperature 98.1 F 98.5 F 98.7 F Pulse Rate 82 161 H 89 Pulse Rate [ Left Apical] Respiratory 18 18 20 Rate Blood Pressure 120/74 97/48 122/57 Blood Pressure [Right Arm] O2 Sat by Pulse 100 Oximetry (%) 07/08/17 07/08/17 07/08/17 18:00 20:37 20:38 Temperature 99.0 F 100.2 F H Pulse Rate 93 H 98 H Pulse Rate [ Left Apical] Respiratory 20 22 Rate Blood Pressure 124/45 99/60 Blood Pressure [Right Arm] O2 Sat by Pulse 98 Oximetry (%) 07/08/17 07/08/17 07/09/17 22:50 23:00 01:00 EST Temperature 102 F H 101.1 F H Pulse Rate 96 H 98 H Pulse Rate [ Left Apical] Respiratory 20 20 Rate Blood Pressure 90/48 109/69 Blood Pressure [Right Arm] O2 Sat by Pulse 97 Oximetry (%) 07/09/17 07/09/17 07/09/17 06:00 08:18 11:00 Temperature 98.3 F Pulse Rate 138 H 134 H 112 H Pulse Rate [ Left Apical] Respiratory 22 24 24 Rate Blood Pressure 90/46 115/50 113/62 Blood Pressure [Right Arm] O2 Sat by Pulse Oximetry (%) 07/09/17 07/09/17 12:00 12:21 Temperature Pulse Rate 102 H Pulse Rate [ Left Apical] Respiratory Rate Blood Pressure 97/42 Blood Pressure [Right Arm] O2 Sat by Pulse 97 Oximetry (%) GENERAL: Awake, alert, anxious, oriented x2 and in no acute distress. HEAD: Normal with no signs of trauma. EYES: Pupils equal, round and reactive to light, sclera anicteric, conjunctiva clear. EARS, NOSE, THROAT: Oropharynx clear without exudates. Moist mucous membranes. NECK: (-) Bruits, (-) lymphadenopathy, JVD, or masses. LUNGS: Decreased breath anteriorly auscultated with no wheezes, rales, or rhonchi. HEART: Regular rate and rhythm, normal S1 and S2 without murmur, rub or gallop. ABDOMEN: Soft, obese, nontender, not distended, normoactive bowel sounds, no guarding, no rebound. MUSCULOSKELETAL: No CVA tenderness. LOWER EXTREMITIES: 2+ pitting edema bilaterally with lymphedema. NEUROLOGICAL: Cranial nerves II-XII intact. Normal speech. PSYCHIATRIC: Cooperative. Good eye contact. SKIN: Diffuse macular papular rash throughout bilateral LE and UE, abdomen, chest, Warm normal capillary refill. CBC, BMP 07/09/17 05:10 07/09/17 05:10 Microbiology 07/07/17 16:12 Blood - Peripheral Venous Blood Culture - Preliminary NO GROWTH OBTAINED AFTER 24 HOURS, INCUBATION TO CONTINUE FOR 4 DAYS. 07/07/17 15:58 Blood - Peripheral Venous Blood Culture - Preliminary NO GROWTH OBTAINED AFTER 24 HOURS, INCUBATION TO CONTINUE FOR 4 DAYS. ASSESSMENT/PLAN: Patient is a 66 year old female who was recently discharged on 07/03/17 for anemia secondary to CML on chemo and diffuse rash who returned today for chills and was found to have tachycardia and fever. Patient admitted for further monitoring and management. New onset Atrial Fibrillation with RVR In the setting of sepsis/hypovolemia. Cardiology consulted. HR aorund 110-124. Sepsis likely secondary to UTI -Tachycardia/Hypotensive/Febrile -U/A positive for 3+ Leukocyte esterase -Urine culture repeated. -Blood cultures repeated. -Continue IV NS @83mls/hr ( Even though BNP eleavted - Lungs clear, chest x ray -no congestion, last echo 04/2017 - Normal) -Case discussed with Dr. Pena. Continue Meropenem/Vancomycin. -Tylenol 650mg PO Q6H PRN for fevers Acute Kidney Injury -Likely prerenal -Continue IV NS @83mls/hr -Urine lytes ordered -Avoid nephrotoxic medications -Continue to monitor BMP -Case discussed with Dr. Monteiro. Macular Papular Rash- Chronic and Improving -Wound cultures positive for Corynebacterium Striatum -Currently being managed by Dr. Pena, ID physician -Antihistamine PRN if pruritic HyperKalemia -Likely secondary to ASA -Kayaxelate prn -Will continue to monitor BMP Anemia of Chronic Disease -Likely secondary to CML on chemotherapy as found in previous admission -Continue Ferrous Sulfate 325mg BID -Continue to monitor BMP -Discussed ccase with Heme/Onco. Follow up appreciated. -Will continue to hold Tasigna. CML on chemotherapy -Diagnosed 5 years ago -Hem & oncology consult appreciated. -Tasigna on hold. Chronic Diastolic CHF- Controlled -In no acute exacerbation -Will hold Torsemide due to ASA COPD-Controlled -Continue Brovana 15mcg BID daily -Albuterol Nebulizer PRN Q6H NIDDMII -ISS -BGM HLD -On no medication. -Med rec to be done in the morning HTN -Controlled -Torsemide held due to ASA -Continue to monitor BP Hypothyroidism -Continue Synthroid 25mcg daily F/E/N -IV NS @83mls/hr -Sodium/Diabetic controlled diet Prophylaxis -High risk. SCD's for DVT. Will avoid heparin due to low H/H
--- NOTE | 2017-07-09 13:44 | PN ---
Progress Note, Physician History of Present Illness: Pt seen and examined at bedside. She is much improved from yesterday. Pt is sitting up in bed having lunch. She says she feels much better. She no longer has chills. She did have a rapid response called this morning where she was found to be in rapid a-fib. - Current Medication List Current Medications: Active Medications Acetaminophen (Tylenol -) 650 mg PO Q6H PRN PRN Reason: PAIN Last Admin: 07/08/17 17:30 Dose: 650 mg Albuterol Sulfate (Ventolin 0.083% Nebulizer Soln -) 1 amp NEB Q6H PRN PRN Reason: SHORT OF BREATH/WHEEZING Arformoterol Tartrate (Brovana (Restricted To Pulmonology/Resp) -) 1 amp NEB BID JOVITA Last Admin: 07/09/17 09:55 Dose: 1 amp Ferrous Sulfate (Feosol -) 325 mg PO BID JOVITA Last Admin: 07/09/17 09:50 Dose: 325 mg Meropenem (Merrem (Restricted To Id) -) 10 mls @ 120 mls/hr IVPUSH Q8H-IV JOVITA Last Admin: 07/09/17 11:07 Dose: 120 mls/hr Sodium Chloride (Normal Saline -) 1,000 mls @ 100 mls/hr IV ASDIR [facility] Last Admin: 07/08/17 19:53 Dose: Not Given Insulin Aspart (Novolog Vial Sliding Scale -) 1 vial SQ ACHS JOVITA PRN Reason: Protocol Last Admin: 07/09/17 12:50 Dose: 4 units Levothyroxine Sodium (Synthroid -) 25 mcg PO AM [facility] Last Admin: 07/09/17 07:09 Dose: 25 mcg Oxycodone HCl (Roxicodone -) 10 mg PO Q4H PRN Last Admin: 07/08/17 14:19 Dose: 10 mg Vancomycin HCl (Vancomycin (Pre-Docked)) 1,000 mg IVPB Q2D [facility] - Objective Vital Signs: Vital Signs Temperature 98.3 F 07/09/17 06:00 Pulse Rate 102 H 07/09/17 12:21 Respiratory Rate 24 07/09/17 11:00 Blood Pressure 97/42 07/09/17 12:00 O2 Sat by Pulse Oximetry (%) 97 07/09/17 12:21 Constitutional: Yes: Calm Eyes: Yes: Conjunctiva Clear HENT: Yes: Atraumatic Neck: Yes: Supple Cardiovascular: Yes: S1, S2 Respiratory: Yes: CTA Bilaterally, On Nasal O2 Gastrointestinal: Yes: Soft, Abdomen, Obese Genitourinary: Yes: Hill Present Musculoskeletal: Yes: Muscle Weakness Edema: Yes Edema: LLE: 2+, RLE: 2+ Integumentary: Yes: Rash Neurological: Yes: Oriented Psychiatric: Yes: Oriented Labs: CBC, BMP 07/09/17 05:10 07/09/17 05:10 INR, PTT INR 1.16 (0.82-1.09) H 07/07/17 Unknown Problem List - Problems (1) MARIA ELENA positive Code(s): R76.8 - OTHER SPECIFIED ABNORMAL IMMUNOLOGICAL FINDINGS IN SERUM (2) Acute renal insufficiency Code(s): N28.9 - DISORDER OF KIDNEY AND URETER, UNSPECIFIED (3) Hyperkalemia Code(s): E87.5 - HYPERKALEMIA (4) Anemia Code(s): D64.9 - ANEMIA, UNSPECIFIED Qualifiers: Anemia type: other cause Other causes of anemia: acute posthemorrhagic Qualified Code(s): D62 - Acute posthemorrhagic anemia; D62 - Acute posthemorrhagic anemia (5) CHF (congestive heart failure) Code(s): I50.9 - HEART FAILURE, UNSPECIFIED Qualifiers: Congestive heart failure type: diastolic Congestive heart failure chronicity: chronic Qualified Code(s): I50.32 - Chronic diastolic ( congestive) heart failure; I50.32 - Chronic diastolic (congestive) heart failure ; I50.32 - Chronic diastolic (congestive) heart failure; I50.32 - Chronic diastolic (congestive) heart failure (6) CML (chronic myelocytic leukemia) Code(s): C92.10 - CHRONIC MYELOID LEUK, BCR/ABL-POSITIVE, NOT ACHIEVE REMIS (7) Cellulitis of leg, left Code(s): L03.116 - CELLULITIS OF LEFT LOWER LIMB (8) Diabetes Code(s): E11.9 - TYPE 2 DIABETES MELLITUS WITHOUT COMPLICATIONS (9) ASA (acute kidney injury) Code(s): N17.9 - ACUTE KIDNEY FAILURE, UNSPECIFIED Assessment/Plan Current Medications Generic Name Dose Route Start Last Admin Trade Name Freq PRN Reason Stop Dose Admin Acetaminophen 650 mg 07/07/17 19:54 07/08/17 17:30 Tylenol - PO 650 mg Q6H PRN Administration PAIN Albuterol Sulfate 1 amp 07/08/17 00:37 Ventolin 0.083% Nebulizer Soln - NEB Q6H PRN SHORT OF BREATH/WHEEZING Arformoterol Tartrate 1 amp 07/08/17 12:30 07/09/17 09:55 Brovana (Restricted To Pulmonology/Resp) - NEB 1 amp BID JOVITA Administration Ferrous Sulfate 325 mg 07/07/17 22:00 07/09/17 09:50 Feosol - PO 325 mg BID JOVITA Administration Meropenem 10 mls @ 120 mls/hr 07/08/17 12:30 07/09/17 11:07 Merrem (Restricted To Id) - IVPUSH 120 mls/hr Q8H-IV JOVITA Administration Sodium Chloride 1,000 mls @ 100 mls/hr 07/08/17 18:15 07/08/17 19:53 Normal Saline - IV Not Given ASDIR JOVITA Insulin Aspart 1 vial 07/07/17 22:00 07/09/17 12:50 Novolog Vial Sliding Scale - SQ 4 units ACHS JOVITA Administration Protocol Levothyroxine Sodium 25 mcg 07/08/17 07:00 07/09/17 07:09 Synthroid - PO 25 mcg AM JOVITA Administration Oxycodone HCl 10 mg 07/07/17 20:00 07/08/17 14:19 Roxicodone - PO 10 mg Q4H PRN Administration Vancomycin HCl 1,000 mg 07/10/17 10:00 Vancomycin (Pre-Docked) IVPB Q2D JOVITA Impression 1. ASA 2. anemia 3. rash 4. CML 5. hypothyroidism 6. HTN 7. chol 8. CHF 9. COPD 10. hyperkalemia 11. sepsis 12. new onset a-fib Plan - agree with monitoring pt on tele - will cont with fluids, however will decrease rate - cont with abx - monitor wbc - follow cultures - ID follow up - case discussed with medical attending - check cxr - consider derm eval for rash - monitor hg - would keep jarek on hold - potassium level is improved Dr Sanchez
[2017-07-09] MEDS: SODIUM CHLORIDE 1,000 ML IV SCH (14:00)
--- NOTE | 2017-07-09 15:20 | CON.CARD ---
Cardiology Consult (text) - Consultation Consultation Note: CC: afib 66 yo f with hx htn, dm, hld, hypothyroid, obesity, possible copd, CML/anemia, p /w chills found to have uti/sepsis/turner. hospital course complicated by new afib with rvr. pt asx at the time. recent admit for anemia. le edema sig improved. denies palps, dizzy, cp. sob, orhtopnea, bleeding, transient neurologic sx's. pmh: per hpi psh: ercp, cholecystectomy, hernia repair social: ex tobacco, no etoh/drug abuse famhx: non contributory ros: per hpi; no sweats or chills, n/v/d, cough, congestion, h/a, visual disturbances. + rash meds: Ambulatory Orders Aa/Hydrolyzed Collagen, Whey [Lps 15-30 Liquid] 30 ml PO TID 06/20/17 Acetaminophen [Tylenol] 650 mg PO QID PRN 06/20/17 Albuterol 0.083% Nebulizer Pamella [Ventolin 0.083% Nebulizer Soln -] 1 neb NEB QID 06/20/17 Arformoterol Tartrate [Brovana] 15 mcg IH BID 06/20/17 Bisacodyl [Bisacodyl -] 10 mg PO DAILY PRN 06/20/17 Collagenase Clostridium Hist. [Santyl -] 1 applic TP DAILY 06/20/17 Docusate Sodium [Colace -] 300 mg PO HS 06/20/17 Enoxaparin [Lovenox -] 40 mg SQ DAILY 06/20/17 Ferrous Sulfate 325 mg PO BID 06/20/17 Gabapentin [Neurontin [DO NOT STOCK]] 600 mg PO TID 06/20/17 Insulin (Levemir) [Levemir Flexpen -] 10 units SQ HS 06/20/17 Insulin Lispro [Humalog] 0 unit SQ ASDIR 06/20/17 Levothyroxine [Synthroid -] 25 mcg PO DAILY 06/20/17 Magnesium Hydroxide [Milk of Magnesia -] 30 ml PO DAILY PRN 06/20/17 Metformin HCl 500 mg PO BID 06/20/17 Na Phos,M-B/Na Phos,Di-Ba [Fleet Enema] 133 ml RC ASDIR 06/20/17 Nilotinib HCl [Tasigna] 150 mg PO BID 06/20/17 Oxycodone HCl 10 mg PO Q4H 06/20/17 Polyethylene Glycol 3350 [Miralax 119 gm Btl -] 17 gm PO DAILY 06/20/17 Sennosides [Senna] 2 tab PO DAILY 06/20/17 Tasigna 300 mg PO BIDAC 06/22/17 Torsemide [Demadex -] 20 mg PO DAILY tablet 07/03/17 Current Medications Acetaminophen (Tylenol -) 650 mg PO Q6H PRN PRN Reason: PAIN Last Admin: 07/08/17 17:30 Dose: 650 mg Albuterol Sulfate (Ventolin 0.083% Nebulizer Soln -) 1 amp NEB Q6H PRN PRN Reason: SHORT OF BREATH/WHEEZING Arformoterol Tartrate (Brovana (Restricted To Pulmonology/Resp) -) 1 amp NEB BID JOVITA Last Admin: 07/09/17 09:55 Dose: 1 amp Ferrous Sulfate (Feosol -) 325 mg PO BID JOVITA Last Admin: 07/09/17 09:50 Dose: 325 mg Meropenem (Merrem (Restricted To Id) -) 10 mls @ 120 mls/hr IVPUSH Q8H-IV JOVITA Last Admin: 07/09/17 11:07 Dose: 120 mls/hr Sodium Chloride (Normal Saline -) 1,000 mls @ 75 mls/hr IV ASDIR JOVITA Insulin Aspart (Novolog Vial Sliding Scale -) 1 vial SQ ACHS JOVITA PRN Reason: Protocol Last Admin: 07/09/17 12:50 Dose: 4 units Levothyroxine Sodium (Synthroid -) 25 mcg PO AM [facility] Last Admin: 07/09/17 07:09 Dose: 25 mcg Oxycodone HCl (Roxicodone -) 10 mg PO Q4H PRN Last Admin: 07/08/17 14:19 Dose: 10 mg Vancomycin HCl (Vancomycin (Pre-Docked)) 1,000 mg IVPB Q2D [facility] Vital Signs - 24 hr 07/08/17 07/08/17 07/08/17 18:00 20:37 20:38 Temperature 99.0 F 100.2 F H Pulse Rate 93 H 98 H Respiratory 20 22 Rate Blood Pressure 124/45 99/60 O2 Sat by Pulse 98 Oximetry (%) 07/08/17 07/08/17 07/09/17 22:50 23:00 01:00 EST Temperature 102 F H 101.1 F H Pulse Rate 96 H 98 H Respiratory 20 20 Rate Blood Pressure 90/48 109/69 O2 Sat by Pulse 97 Oximetry (%) 07/09/17 07/09/17 07/09/17 06:00 08:18 11:00 Temperature 98.3 F Pulse Rate 138 H 134 H 112 H Respiratory 22 24 24 Rate Blood Pressure 90/46 115/50 113/62 O2 Sat by Pulse Oximetry (%) 07/09/17 07/09/17 12:00 12:21 Temperature Pulse Rate 102 H Respiratory Rate Blood Pressure 97/42 O2 Sat by Pulse 97 Oximetry (%) Intake & Output 07/07/17 07/08/17 07/09/17 07/10/17 08:59 08:59 07:59 07:59 Intake Total Output Total Balance Weight nad, no jvd irregualar s1s2 no mrg cta b/l, nleff abd nd nt, obese. pos bs pos dp/pt no le e/c/c no diaphoresis no jaundice aaox3 CBC, BMP 07/09/17 05:10 07/09/17 05:10 Laboratory Tests 07/09/17 13:49 TSH 1.87 D echo 04/2017: tds. nl lv/rv. 1+ lae. mod mac mild-mod tr rvsp 45. tele: rate controlled afib 66 yo f with hx htn, dm, hld, hypothyroid, obesity, possible copd, CML/anemia, p /w chills found to have uti/sepsis/turner. hospital course complicated by new afib with rvr. new afib - will need to discuss with hematology regarding safety of ac - currently rate controlled off av kia blockade, con't to monitor. - recent echo wnl diastolic chf: - getting IVF here for turner. appears dry/euvolemic. venous ins/lymphedema: -chronic swelling, improved. anemia: -baseline values in past here run hgb 7s-9s. requires transfusions. htn: -cont lisinopril hld: - Given diabetes, would benefit from statin therapy,
[2017-07-09] MEDS ORDERED: DEXTROSE 50%-WATER 25 GM/50 ML DISP.SYRIN ONE (17:13)
[2017-07-09] MEDS: oxyCODONE HCL 5 MG TABLET PO PRN (19:24)
[2017-07-09] MEDS: ACETAMINOPHEN 325 MG TABLET (FP) PO PRN (19:24)
[2017-07-10] MEDS ORDERED: PT OWN MED DRAWER 7, Y5N ONE ×2 (03:15→16:55)
[2017-07-10] MEDS: oxyCODONE HCL 5 MG TABLET PO PRN ×4 (03:31→16:16)
[2017-07-10] MEDS: MEROPENEM 500 MG PUSH 10 ML IVPUSH SCH ×3 (03:31→17:27)
[2017-07-10] MEDS: INSULIN SLIDING SCALE (NOVOLOG) 1 VIAL SQ SCH ×4 (06:32→22:41)
[2017-07-10] MEDS: LEVOTHYROXINE NA 25 MCG TABLET (FP) PO SCH (06:32)
[2017-07-10 07:38] LABS: BASOPHIL 0.3 % (0-2.0); EOSINOPHIL 15.9 % (0-4.5); MCH 28.8 pg (25.7-33.7); MCHC 32.9 g/dl (32.0-36.0); MEAN CELL VOLUME 87.3 fl (80-96); MEAN PLT VOLUME 8.5 fl (7.5-11.1); NEUTROPHILS 66.7 % (42.8-82.8); PLATELET COUNT 144 K/MM3 (134-434); RDW 17.8 % (11.6-15.6)
[2017-07-10 08:09] LABS: ALBUMIN 1.9 g/dl (3.4-5.0); ANION GAP 9 (8-16); CALCIUM 7.2 mg/dL (8.5-10.1); CO2 21 mmol/L (21-32); CREATININE 2.8 mg/dL (0.55-1.02); GLUCOSE,RANDOM 146 mg/dL (74-106); SGOT/AST 12 U/L (15-37); SGPT/ALT 20 U/L (12-78)
[2017-07-10 08:11] LABS: ALK PHOS 159 U/L (45-117); BILIRUBIN,TOTAL 0.6 mg/dL (0.2-1.0); LDH 184 U/L (84-246); TOT PROT 6.4 g/dl (6.4-8.2)
[2017-07-10] MEDS: ACETAMINOPHEN 325 MG TABLET (FP) PO PRN ×3 (08:27→22:23)
[2017-07-10] MEDS: ARFORMOTEROL TARTRATE 15 MCG/2 ML VIAL NEB SCH ×2 (09:30→22:58)
[2017-07-10] MEDS: FERROUS SO4 325 MG TABLET (FP) PO SCH ×2 (09:57→22:23)
[2017-07-10] MEDS ORDERED: VANCOMYCIN 1 GRAM (PRE-DOCKED) 1,000 MG/250 ML BAG IVPB SCH (10:00)
--- NOTE | 2017-07-10 11:36 | PN ---
Progress Note, Physician Chief Complaint: afib History of Present Illness: denies palpitations, cp, sob leg swelling chronic - Current Medication List Current Medications: Active Medications Acetaminophen (Tylenol -) 650 mg PO Q6H PRN PRN Reason: PAIN Last Admin: 07/10/17 08:27 Dose: 650 mg Albuterol Sulfate (Ventolin 0.083% Nebulizer Soln -) 1 amp NEB Q6H PRN PRN Reason: SHORT OF BREATH/WHEEZING Arformoterol Tartrate (Brovana (Restricted To Pulmonology/Resp) -) 1 amp NEB BID [facility] Last Admin: 07/10/17 09:30 Dose: 1 amp Ferrous Sulfate (Feosol -) 325 mg PO BID [facility] Last Admin: 07/10/17 09:57 Dose: 325 mg Meropenem (Merrem (Restricted To Id) -) 10 mls @ 120 mls/hr IVPUSH Q8H-IV JOVITA Last Admin: 07/10/17 10:03 Dose: 120 mls/hr Sodium Chloride (Normal Saline -) 1,000 mls @ 75 mls/hr IV ASDIR [facility] Last Admin: 07/09/17 14:00 Dose: 75 mls/hr Vancomycin HCl 1,000 mg/ (Dextrose) 250 mls @ 166.667 mls/hr IVPB Q48H [facility] Insulin Aspart (Novolog Vial Sliding Scale -) 1 vial SQ ACHS [facility] PRN Reason: Protocol Last Admin: 07/10/17 06:32 Dose: 2 units Levothyroxine Sodium (Synthroid -) 25 mcg PO AM [facility] Last Admin: 07/10/17 06:32 Dose: 25 mcg Oxycodone HCl (Roxicodone -) 10 mg PO Q4H PRN Last Admin: 07/10/17 08:25 Dose: 10 mg - Objective Vital Signs: Vital Signs Temperature 98.8 F 07/10/17 09:48 Pulse Rate 88 07/10/17 09:48 Respiratory Rate 20 07/10/17 09:48 Blood Pressure 104/70 07/10/17 09:48 O2 Sat by Pulse Oximetry (%) 94 L 07/10/17 09:30 Constitutional: Yes: No Distress, Calm, Obese Cardiovascular: Yes: Regular Rate and Rhythm. No: JVD (tds habitus), Gallop, Murmur Respiratory: Yes: Regular, CTA Bilaterally. No: Accessory Muscle Use, Rales, Wheezes Extremities: No: Cold Edema: Yes Neurological: Yes: Alert, Oriented Psychiatric: No: Agitated Labs: CBC, BMP 07/10/17 05:18 07/10/17 05:18 INR, PTT INR 1.16 (0.82-1.09) H 07/07/17 Unknown - ....Imaging EKG: Other (tele: PAF to 120s-->NSR) Assessment/Plan echo 04/2017: tds. nl lv/rv. 1+ lae. mod mac mild-mod tr rvsp 45. 66 yo f with hx htn, dm, hld, hypothyroid, obesity, possible copd, CML/anemia, p /w chills found to have uti/sepsis/asa. hospital course complicated by new afib with rvr. new afib - hgb is stable vs prior baseline. was 6's on admit, currently 7.9; - this would provide little reserve if she develops bleeding on AC agent; - CHADS VASC = 3, hence not very high cva risk (3%/year) - currently rate controlled off av kia blockade, con't to monitor tele - recent echo wnl - will d/w heme: (a) prognosis related to her CML and (b) if hgb expected to dip down to <8 often--if so, risks of bleeding on AC may be > benefits, as she would likely not tolerate a drop of 2+ grams in hgb acutely starting from this point of limited reserve ASA: - ? etiology - renal following, getting IVF, JANE held diastolic chf: - getting IVF here for asa. appears dry/euvolemic. observe venous ins/lymphedema: -chronic swelling, improved. anemia: -baseline values in past here run hgb 6s-9s. requires transfusions periodically -stable here--per heme htn: -holding JANE (for ASA) -bp controlled hld: - Given diabetes, consider statin therapy--defer to outpt setting in light of mult acute med issues
[2017-07-10] MEDS: VANCOMYCIN 1,000 MG in DEXTROSE 5%-WATER - 250 ML IVPB SCH (12:06)
[2017-07-10] MEDS: SODIUM CHLORIDE 1,000 ML IV SCH ×2 (12:07→16:18)
--- NOTE | 2017-07-10 13:47 | PN ---
Progress Note, Physician Chief Complaint: Ms Hernandez says she is nervous about her ultrasound, reassured. Says she is itchy from the rash but it is drying and better since last admission. No cp, sob , n/v. - Current Medication List Current Medications: Active Medications Acetaminophen (Tylenol -) 650 mg PO Q6H PRN PRN Reason: PAIN Last Admin: 07/10/17 08:27 Dose: 650 mg Albuterol Sulfate (Ventolin 0.083% Nebulizer Soln -) 1 amp NEB Q6H PRN PRN Reason: SHORT OF BREATH/WHEEZING Arformoterol Tartrate (Brovana (Restricted To Pulmonology/Resp) -) 1 amp NEB BID JOVITA Last Admin: 07/10/17 09:30 Dose: 1 amp Ferrous Sulfate (Feosol -) 325 mg PO BID JOVITA Last Admin: 07/10/17 09:57 Dose: 325 mg Meropenem (Merrem (Restricted To Id) -) 10 mls @ 120 mls/hr IVPUSH Q8H-IV JOVITA Last Admin: 07/10/17 10:03 Dose: 120 mls/hr Sodium Chloride (Normal Saline -) 1,000 mls @ 75 mls/hr IV ASDIR JOVITA Last Admin: 07/10/17 12:07 Dose: 75 mls/hr Vancomycin HCl 1,000 mg/ (Dextrose) 250 mls @ 166.667 mls/hr IVPB Q48H JOVITA Last Admin: 07/10/17 12:06 Dose: 166.667 mls/hr Insulin Aspart (Novolog Vial Sliding Scale -) 1 vial SQ ACHS JOVITA PRN Reason: Protocol Last Admin: 07/10/17 12:14 Dose: 4 units Levothyroxine Sodium (Synthroid -) 25 mcg PO AM JOVITA Last Admin: 07/10/17 06:32 Dose: 25 mcg Oxycodone HCl (Roxicodone -) 10 mg PO Q4H PRN Last Admin: 07/10/17 12:00 Dose: 10 mg - Objective Vital Signs: Vital Signs Temperature 37.1 C 07/10/17 09:48 Pulse Rate 88 07/10/17 09:48 Respiratory Rate 20 07/10/17 09:48 Blood Pressure 104/70 07/10/17 09:48 O2 Sat by Pulse Oximetry (%) 94 L 07/10/17 09:30 Constitutional: Yes: No Distress, Calm, Obese Cardiovascular: Yes: Regular Rate and Rhythm. No: Gallop, Murmur, Rub Respiratory: Yes: Regular, CTA Bilaterally, On Nasal O2. No: Rales, Rhonchi, Wheezes Gastrointestinal: Yes: Normal Bowel Sounds, Soft. No: Distention, Tenderness Extremities: Yes: Erythema Edema: Yes Edema: LLE: 2+, RLE: 2+ Integumentary: Yes: Rash (much improved, almost resolved) Labs: CBC, BMP 07/10/17 05:18 07/10/17 05:18 INR, PTT INR 1.16 (0.82-1.09) H 07/07/17 Unknown Problem List - Problems (1) Atrial fibrillation with RVR Assessment/Plan: -currently in sinus rhythm on exam -cardiology note reviewed -agree with risk of AC outweighs benefit as patient often has Hgb less than 8 -monitor Code(s): I48.91 - UNSPECIFIED ATRIAL FIBRILLATION (2) Sepsis Assessment/Plan: -currently resolving -continue IVF and antibiotics per ID Code(s): A41.9 - SEPSIS, UNSPECIFIED ORGANISM Qualifiers: Sepsis type: Escherichia coli Qualified Code(s): A41.51 - Sepsis due to Escherichia coli [E. coli]; A41.51 - Sepsis due to Escherichia coli [E. coli]; A41.51 - Sepsis due to Escherichia coli [E. coli] (3) UTI (urinary tract infection) Assessment/Plan: -patient presenting with resistant e coli UTI -ID following -continue vancomycin and merrem Code(s): N39.0 - URINARY TRACT INFECTION, SITE NOT SPECIFIED Qualifiers: Urinary tract infection type: acute cystitis Hematuria presence: without hematuria Qualified Code(s): N30.00 - Acute cystitis without hematuria; N30.00 - Acute cystitis without hematuria (4) ASA (acute kidney injury) Assessment/Plan: -patient's renal function steadily declining -? if secondary to sustain repeated injury (sepsis, anemia, DM) -continue IVF -hold nephrotoxic agents -nephrology following Code(s): N17.9 - ACUTE KIDNEY FAILURE, UNSPECIFIED (5) Drug induced rash with eosinophilia and systemic symptoms Assessment/Plan: -improving Code(s): L27.0 - GEN SKIN ERUPTION DUE TO DRUGS AND MEDS TAKEN INTERNALLY D72.1 - EOSINOPHILIA T50.905A - ADVERSE EFFECT OF UNSP DRUG/MEDS/BIOL SUBST, INIT (6) Anemia Assessment/Plan: -continue iron -at baseline Code(s): D64.9 - ANEMIA, UNSPECIFIED Qualifiers: Anemia type: other cause Other causes of anemia: acute posthemorrhagic Qualified Code(s): D62 - Acute posthemorrhagic anemia; D62 - Acute posthemorrhagic anemia (7) CHF (congestive heart failure) Assessment/Plan: -not in exacerbation -holding torsemide secondary to renal function -hydration -monitor I/Os Code(s): I50.9 - HEART FAILURE, UNSPECIFIED Qualifiers: Congestive heart failure type: diastolic Congestive heart failure chronicity: chronic Qualified Code(s): I50.32 - Chronic diastolic ( congestive) heart failure; I50.32 - Chronic diastolic (congestive) heart failure ; I50.32 - Chronic diastolic (congestive) heart failure; I50.32 - Chronic diastolic (congestive) heart failure (8) CML (chronic myelocytic leukemia) Assessment/Plan: -hematology following -holding tasigna at this time Code(s): C92.10 - CHRONIC MYELOID LEUK, BCR/ABL-POSITIVE, NOT ACHIEVE REMIS (9) COPD (chronic obstructive pulmonary disease) Assessment/Plan: -not in exacerbation -continue current regimen Code(s): J44.9 - CHRONIC OBSTRUCTIVE PULMONARY DISEASE, UNSPECIFIED (10) Diabetes Assessment/Plan: -continue current management Code(s): E11.9 - TYPE 2 DIABETES MELLITUS WITHOUT COMPLICATIONS (11) Hypothyroid Assessment/Plan: -continue synthroid Code(s): E03.9 - HYPOTHYROIDISM, UNSPECIFIED
--- NOTE | 2017-07-10 13:57 | PN ---
Progress Note, Physician History of Present Illness: patient stable doing well no new issues says she feels much better rash is resolving dry skin - Current Medication List Current Medications: Active Medications Acetaminophen (Tylenol -) 650 mg PO Q6H PRN PRN Reason: PAIN Last Admin: 07/10/17 08:27 Dose: 650 mg Albuterol Sulfate (Ventolin 0.083% Nebulizer Soln -) 1 amp NEB Q6H PRN PRN Reason: SHORT OF BREATH/WHEEZING Arformoterol Tartrate (Brovana (Restricted To Pulmonology/Resp) -) 1 amp NEB BID JOVITA Last Admin: 07/10/17 09:30 Dose: 1 amp Ferrous Sulfate (Feosol -) 325 mg PO BID JOVITA Last Admin: 07/10/17 09:57 Dose: 325 mg Meropenem (Merrem (Restricted To Id) -) 10 mls @ 120 mls/hr IVPUSH Q8H-IV JOVITA Last Admin: 07/10/17 10:03 Dose: 120 mls/hr Sodium Chloride (Normal Saline -) 1,000 mls @ 75 mls/hr IV ASDIR JOVITA Last Admin: 07/10/17 12:07 Dose: 75 mls/hr Vancomycin HCl 1,000 mg/ (Dextrose) 250 mls @ 166.667 mls/hr IVPB Q48H [facility] Last Admin: 07/10/17 12:06 Dose: 166.667 mls/hr Insulin Aspart (Novolog Vial Sliding Scale -) 1 vial SQ ACHS JOVITA PRN Reason: Protocol Last Admin: 07/10/17 12:14 Dose: 4 units Levothyroxine Sodium (Synthroid -) 25 mcg PO AM JOVITA Last Admin: 07/10/17 06:32 Dose: 25 mcg Oxycodone HCl (Roxicodone -) 10 mg PO Q4H PRN Last Admin: 07/10/17 12:00 Dose: 10 mg - Objective Vital Signs: Vital Signs Temperature 98.8 F 07/10/17 09:48 Pulse Rate 88 07/10/17 09:48 Respiratory Rate 20 07/10/17 09:48 Blood Pressure 104/70 07/10/17 09:48 O2 Sat by Pulse Oximetry (%) 94 L 07/10/17 09:30 Constitutional: Yes: No Distress, Obese Cardiovascular: Yes: Regular Rate and Rhythm Respiratory: Yes: Regular, On Nasal O2, Poor Air Entry (bases) Gastrointestinal: Yes: Normal Bowel Sounds, Soft Musculoskeletal: Yes: Other Extremities: Yes: Other Neurological: Yes: Alert, Oriented Psychiatric: Yes: Alert, Oriented Labs: CBC, BMP 07/10/17 05:18 07/10/17 05:18 INR, PTT INR 1.16 (0.82-1.09) H 07/07/17 Unknown Assessment/Plan patient well known to me and who is very immunocompromised coming to the hospital because of shaking patient was found to ahve very low h and h Patient is a 66 year old female who was recently discharged on 07/03/17 for anemia secondary to CML on chemo and diffuse rash who returned today for chills and was found to have tachycardia and fever. Patient admitted for further monitoring and management this patient is very fragile and with cml. 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
--- NOTE | 2017-07-10 14:57 | PN ---
Progress Note, Physician History of Present Illness: Pt seen and examined at bedside. She is awake and alert. She denies fevers or chills. She has improved appetite. She feels that her rash is starting to peal. It does not hurt her. - Current Medication List Current Medications: Active Medications Acetaminophen (Tylenol -) 650 mg PO Q6H PRN PRN Reason: PAIN Last Admin: 07/10/17 14:02 Dose: 650 mg Albuterol Sulfate (Ventolin 0.083% Nebulizer Soln -) 1 amp NEB Q6H PRN PRN Reason: SHORT OF BREATH/WHEEZING Arformoterol Tartrate (Brovana (Restricted To Pulmonology/Resp) -) 1 amp NEB BID JOVITA Last Admin: 07/10/17 09:30 Dose: 1 amp Ferrous Sulfate (Feosol -) 325 mg PO BID JOVITA Last Admin: 07/10/17 09:57 Dose: 325 mg Meropenem (Merrem (Restricted To Id) -) 10 mls @ 120 mls/hr IVPUSH Q8H-IV JOVITA Last Admin: 07/10/17 10:03 Dose: 120 mls/hr Sodium Chloride (Normal Saline -) 1,000 mls @ 75 mls/hr IV ASDIR JOVITA Last Admin: 07/10/17 12:07 Dose: 75 mls/hr Vancomycin HCl 1,000 mg/ (Dextrose) 250 mls @ 166.667 mls/hr IVPB Q48H JOVITA Last Admin: 07/10/17 12:06 Dose: 166.667 mls/hr Insulin Aspart (Novolog Vial Sliding Scale -) 1 vial SQ ACHS JOVITA PRN Reason: Protocol Last Admin: 07/10/17 12:14 Dose: 4 units Levothyroxine Sodium (Synthroid -) 25 mcg PO AM JOVITA Last Admin: 07/10/17 06:32 Dose: 25 mcg Oxycodone HCl (Roxicodone -) 10 mg PO Q4H PRN Last Admin: 07/10/17 12:00 Dose: 10 mg - Objective Vital Signs: Vital Signs Temperature 98.8 F 07/10/17 09:48 Pulse Rate 88 07/10/17 09:48 Respiratory Rate 20 07/10/17 09:48 Blood Pressure 104/70 07/10/17 09:48 O2 Sat by Pulse Oximetry (%) 94 L 07/10/17 09:30 Constitutional: Yes: Calm Eyes: Yes: Conjunctiva Clear HENT: Yes: Atraumatic Cardiovascular: Yes: S1, S2 Respiratory: Yes: CTA Bilaterally, On Nasal O2 Gastrointestinal: Yes: Soft, Abdomen, Obese Genitourinary: Yes: Hill Present Musculoskeletal: Yes: Muscle Weakness Edema: Yes Edema: LLE: 1+, RLE: 1+ Integumentary: Yes: Rash Wound/Incision: Yes: Dressing Dry and Intact Neurological: Yes: Oriented Psychiatric: Yes: Oriented Labs: CBC, BMP 07/10/17 05:18 07/10/17 05:18 INR, PTT INR 1.16 (0.82-1.09) H 07/07/17 Unknown - ....Imaging Chest X-ray: Report Reviewed Ultrasound: Report Reviewed (neg hydro) Problem List - Problems (1) MARIA ELENA positive Code(s): R76.8 - OTHER SPECIFIED ABNORMAL IMMUNOLOGICAL FINDINGS IN SERUM (2) Acute renal insufficiency Code(s): N28.9 - DISORDER OF KIDNEY AND URETER, UNSPECIFIED (3) Hyperkalemia Code(s): E87.5 - HYPERKALEMIA (4) Anemia Code(s): D64.9 - ANEMIA, UNSPECIFIED Qualifiers: Anemia type: other cause Other causes of anemia: acute posthemorrhagic Qualified Code(s): D62 - Acute posthemorrhagic anemia; D62 - Acute posthemorrhagic anemia (5) CHF (congestive heart failure) Code(s): I50.9 - HEART FAILURE, UNSPECIFIED Qualifiers: Congestive heart failure type: diastolic Congestive heart failure chronicity: chronic Qualified Code(s): I50.32 - Chronic diastolic ( congestive) heart failure; I50.32 - Chronic diastolic (congestive) heart failure ; I50.32 - Chronic diastolic (congestive) heart failure; I50.32 - Chronic diastolic (congestive) heart failure (6) CML (chronic myelocytic leukemia) Code(s): C92.10 - CHRONIC MYELOID LEUK, BCR/ABL-POSITIVE, NOT ACHIEVE REMIS (7) Cellulitis of leg, left Code(s): L03.116 - CELLULITIS OF LEFT LOWER LIMB (8) Diabetes Code(s): E11.9 - TYPE 2 DIABETES MELLITUS WITHOUT COMPLICATIONS (9) ASA (acute kidney injury) Code(s): N17.9 - ACUTE KIDNEY FAILURE, UNSPECIFIED Assessment/Plan Current Medications Generic Name Dose Route Start Last Admin Trade Name Freq PRN Reason Stop Dose Admin Acetaminophen 650 mg 07/07/17 19:54 07/10/17 14:02 Tylenol - PO 650 mg Q6H PRN Administration PAIN Albuterol Sulfate 1 amp 07/08/17 00:37 Ventolin 0.083% Nebulizer Soln - NEB Q6H PRN SHORT OF BREATH/WHEEZING Arformoterol Tartrate 1 amp 07/08/17 12:30 07/10/17 09:30 Brovana (Restricted To Pulmonology/Resp) - NEB 1 amp BID JOVITA Administration Ferrous Sulfate 325 mg 07/07/17 22:00 07/10/17 09:57 Feosol - PO 325 mg BID JOVITA Administration Meropenem 10 mls @ 120 mls/hr 07/08/17 12:30 07/10/17 10:03 Merrem (Restricted To Id) - IVPUSH 120 mls/hr Q8H-IV JOVITA Administration Sodium Chloride 1,000 mls @ 75 mls/hr 07/09/17 13:44 07/10/17 12:07 Normal Saline - IV 75 mls/hr ASDIR JOVITA Administration Vancomycin HCl 1,000 mg/ 250 mls @ 166.667 mls/hr 07/10/17 11:00 07/10/17 12:06 Dextrose IVPB 166.667 mls/hr Q48H JOVITA Administration Insulin Aspart 1 vial 07/07/17 22:00 07/10/17 12:14 Novolog Vial Sliding Scale - SQ 4 units ACHS JOVITA Administration Protocol Levothyroxine Sodium 25 mcg 07/08/17 07:00 07/10/17 06:32 Synthroid - PO 25 mcg AM JOVITA Administration Oxycodone HCl 10 mg 07/07/17 20:00 07/10/17 12:00 Roxicodone - PO 10 mg Q4H PRN Administration Impression 1. ASA 2. anemia 3. rash 4. CML 5. hypothyroidism 6. HTN 7. chol 8. CHF 9. COPD 10. hyperkalemia 11. sepsis 12. new onset a-fib Plan - deepak function is worse - monitor bp - would keep jarek on hold - will decrease fluids - monitor bp - monitor vanco levels - rash is improving - renal ultrasound reviewed - cxr reviewed - monitor hg - repeat ua - likely asa from atn - will follow closely - mental status is improved Dr Sanchez
--- NOTE | 2017-07-10 21:53 | EKG ---
Test Reason : Blood Pressure : / mmHG Vent. Rate : 092 BPM Atrial Rate : 093 BPM P-R Int : 000 ms QRS Dur : 080 ms QT Int : 342 ms P-R-T Axes : 000 007 050 degrees QTc Int : 422 ms POOR DATA QUALITY, INTERPRETATION MAY BE ADVERSELY AFFECTED ACCELERATED JUNCTIONAL RHYTHM LOW VOLTAGE QRS IN LIMB LEADS CANNOT RULE OUT ANTERIOR INFARCT , AGE UNDETERMINED ABNORMAL ECG WHEN COMPARED WITH ECG OF 20-JUN-2017 12:27, NO SIGNIFICANT CHANGE WAS FOUND Confirmed by SHANE DALEY MD ([id number]) on 07/10/2017 9:52:47 PM Referred By: Confirmed By:SHANE DALEY MD
[2017-07-11] MEDS ORDERED: PT OWN MED DRAWER 7, Y5N ONE (03:30)
[2017-07-11] MEDS: MEROPENEM 500 MG PUSH 10 ML IVPUSH SCH ×3 (03:39→18:02)
[2017-07-11] MEDS: INSULIN SLIDING SCALE (NOVOLOG) 1 VIAL SQ SCH ×4 (06:26→21:44)
[2017-07-11] MEDS: LEVOTHYROXINE NA 25 MCG TABLET (FP) PO SCH (06:27)
[2017-07-11] MEDS: oxyCODONE HCL 5 MG TABLET PO PRN ×3 (06:27→18:13)
[2017-07-11 07:36] LABS: BASOPHIL 0.6 % (0-2.0); MCH 29.3 pg (25.7-33.7); MCHC 33.3 g/dl (32.0-36.0); MEAN CELL VOLUME 88.1 fl (80-96); MEAN PLT VOLUME 8.5 fl (7.5-11.1); NEUTROPHILS 61.7 % (42.8-82.8); PLATELET COUNT 157 K/MM3 (134-434); RDW 17.4 % (11.6-15.6); WHITE BLOOD COUNT 8.6 K/mm3 (4.0-10.0)
[2017-07-11 07:59] LABS: CALCIUM 7.1 mg/dL (8.5-10.1)
[2017-07-11 08:31] LABS: ANION GAP 11 (8-16); CO2 18 mmol/L (21-32); CREATININE 2.7 mg/dL (0.55-1.02); GLUCOSE,RANDOM 133 mg/dL (74-106); PHOSPHOROUS 6.4 mg/dL (2.5-4.9); TOT PROT 6.6 g/dl (6.4-8.2)
[2017-07-11 08:32] LABS: ALBUMIN 1.9 g/dl (3.4-5.0); ALK PHOS 156 U/L (45-117); BILIRUBIN,TOTAL 0.3 mg/dL (0.2-1.0); SGOT/AST 11 U/L (15-37); SGPT/ALT 16 U/L (12-78)
[2017-07-11] MEDS: ARFORMOTEROL TARTRATE 15 MCG/2 ML VIAL NEB SCH ×2 (09:50→21:40)
[2017-07-11] MEDS: FERROUS SO4 325 MG TABLET (FP) PO SCH ×2 (11:11→21:44)
[2017-07-11] MEDS: ACETAMINOPHEN 325 MG TABLET (FP) PO PRN ×2 (11:22→18:03)
[2017-07-11] MEDS: SODIUM CHLORIDE 1,000 ML IV SCH ×2 (11:23→14:30)
--- NOTE | 2017-07-11 11:37 | PN ---
Progress Note (short form) - Note Progress Note: seen and examined this am. chart reviewed cardiology note reviewed O/E: NAD erythematous skin all over CTA b/l Hill in place LE changes yan AAOx3 Last Vital Signs Temp Pulse Resp BP Pulse Ox 97.8 F 84 20 119/50 94 L 07/11/17 06:00 07/11/17 06:00 07/11/17 06:00 07/11/17 06:00 07/10/17 21:00 CBC, BMP 07/11/17 05:10 07/11/17 05:10 Current Medications Generic Name Dose Route Start Last Admin Trade Name Freq PRN Reason Stop Dose Admin Acetaminophen 650 mg 07/07/17 19:54 07/11/17 11:22 Tylenol - PO 650 mg Q6H PRN Administration PAIN Albuterol Sulfate 1 amp 07/08/17 00:37 Ventolin 0.083% Nebulizer Soln - NEB Q6H PRN SHORT OF BREATH/WHEEZING Arformoterol Tartrate 1 amp 07/08/17 12:30 07/10/17 22:58 Brovana (Restricted To Pulmonology/Resp) - NEB 1 amp BID JOVITA Administration Ferrous Sulfate 325 mg 07/07/17 22:00 07/11/17 11:11 Feosol - PO 325 mg BID JOVITA Administration Meropenem 10 mls @ 120 mls/hr 07/08/17 12:30 07/11/17 10:11 Merrem (Restricted To Id) - IVPUSH 120 mls/hr Q8H-IV JOVITA Administration Vancomycin HCl 1,000 mg/ 250 mls @ 166.667 mls/hr 07/10/17 11:00 07/10/17 12:06 Dextrose IVPB 166.667 mls/hr Q48H JOVITA Administration Sodium Chloride 1,000 mls @ 65 mls/hr 07/10/17 14:58 07/11/17 11:23 Normal Saline - IV 65 mls/hr ASDIR JOVITA Administration Insulin Aspart 1 vial 07/07/17 22:00 07/11/17 06:26 Novolog Vial Sliding Scale - SQ Not Given ACHS JOVITA Protocol Levothyroxine Sodium 25 mcg 07/08/17 07:00 07/11/17 06:27 Synthroid - PO 25 mcg AM JOVITA Administration Oxycodone HCl 10 mg 07/07/17 20:00 07/11/17 11:12 Roxicodone - PO 10 mg Q4H PRN Administration CML -restart Nilotinib -will monitor while she is here -her last BCR ABL was 0, making her in CR, will repeat this admission too Anemia -for Iron studies -EGD/[place] negative -likely a component of ACI too, in the setting of worsening renal fn/sepsis/ acute inflammatory state -she's always been running between 8-9. -repeat MARIA ELENA -no longer has M-Chris -when a bit more stable, will need to consider CT scan New Onset Afib -d/w Cards . -high [facility], will start AC with monitoring here ATN: -renal f/u -d/w renal Rash: -improving -eval by Derm last visit. likely drug induced Sepsis: -source? -ID f/u -on abx. d/w
--- NOTE | 2017-07-11 13:25 | PN ---
Progress Note (short form) - Note Progress Note: CC: afib S: no cp, palps, dizziness, sob. con't on ivf. Current Medications Acetaminophen (Tylenol -) 650 mg PO Q6H PRN PRN Reason: PAIN Last Admin: 07/11/17 11:22 Dose: 650 mg Albuterol Sulfate (Ventolin 0.083% Nebulizer Soln -) 1 amp NEB Q6H PRN PRN Reason: SHORT OF BREATH/WHEEZING Arformoterol Tartrate (Brovana (Restricted To Pulmonology/Resp) -) 1 amp NEB BID JOVITA Last Admin: 07/10/17 22:58 Dose: 1 amp Ferrous Sulfate (Feosol -) 325 mg PO BID JOVITA Last Admin: 07/11/17 11:11 Dose: 325 mg Meropenem (Merrem (Restricted To Id) -) 10 mls @ 120 mls/hr IVPUSH Q8H-IV JOVITA Last Admin: 07/11/17 10:11 Dose: 120 mls/hr Vancomycin HCl 1,000 mg/ (Dextrose) 250 mls @ 166.667 mls/hr IVPB Q48H JOVITA Last Admin: 07/10/17 12:06 Dose: 166.667 mls/hr Sodium Chloride (Normal Saline -) 1,000 mls @ 65 mls/hr IV ASDIR JOVITA Last Admin: 07/11/17 11:23 Dose: 65 mls/hr Insulin Aspart (Novolog Vial Sliding Scale -) 1 vial SQ ACHS JOVITA PRN Reason: Protocol Last Admin: 07/11/17 12:10 Dose: 4 units Levothyroxine Sodium (Synthroid -) 25 mcg PO AM JOVITA Last Admin: 07/11/17 06:27 Dose: 25 mcg Non-Formulary Medication (Tasigna) 300 mg PO BIDAC JOVITA Oxycodone HCl (Roxicodone -) 10 mg PO Q4H PRN Last Admin: 07/11/17 11:12 Dose: 10 mg Vital Signs - 24 hr 07/10/17 07/10/17 07/10/17 14:00 17:00 18:40 Temperature 98.3 F 99.0 F 99.9 F H Pulse Rate 80 94 H Respiratory 18 Rate Blood Pressure 124/54 135/67 O2 Sat by Pulse Oximetry (%) 07/10/17 07/10/1717 21:00 22:00 02:00 Temperature 101 F H 97.9 F Pulse Rate 90 80 Respiratory 20 20 Rate Blood Pressure 129/55 111/79 O2 Sat by Pulse 94 L Oximetry (%) 07/11/17 06:00 Temperature 97.8 F Pulse Rate 84 Respiratory 20 Rate Blood Pressure 119/50 O2 Sat by Pulse Oximetry (%) Intake & Output 07/09/17 07/10/17 07/11/17 07/12/17 07:59 07:59 07:59 07:59 Intake Total 1650 1150 Output Total 550 550 Balance 1100 600 nad, no jvd rrr s1s2 no mrg cta b/l, nleff abd nd nt, obese. pos bs pos dp/pt + erythematous rash with skin sloughing trace -1+ dependent edema no c/c no diaphoresis no jaundice aaox3 Laboratory Tests 07/10/17 07/10/17 07/10/17 05:18 05:18 05:18 WBC Hgb 7.9 L Plt Count Haptoglobin 209 H Sodium 135 L Potassium Carbon Dioxide BUN Creatinine Magnesium Total Bilirubin AST ALT Alkaline Phosphatase Albumin 07/11/17 07/11/17 05:10 05:10 WBC 8.6 Hgb 8.4 L Plt Count 157 Haptoglobin Sodium 135 L Potassium 4.9 Carbon Dioxide 18 L BUN 66 H Creatinine 2.7 H Magnesium 2.0 Total Bilirubin 0.3 D AST 11 L ALT 16 Alkaline Phosphatase 156 H Albumin 1.9 L echo 04/2017: tds. nl lv/rv. 1+ lae. mod mac mild-mod tr rvsp 45. tele: sR with brief atrial runs. A/P 66 yo f with hx htn, dm, hld, hypothyroid, obesity, possible copd, CML/anemia, p /w chills found to have uti/sepsis/asa. hospital course complicated by new afib with rvr. new afib - hgb is stable vs prior baseline. was 6's on admit, currently aroune 8. - this would provide little reserve if she develops bleeding on AC agent; - CHADS VASC = 3, hence not very high cva risk (3%/year) and with short period in afib. Discussed risk/benefit (see prior notes) with heme --> cleared for trial of AC. given BMI and renal function will initiate heparin bridge to coumadin. montioring of hgb while on heparin bridge. - currently rate controlled/SR off av kia blockade, con't to monitor tele - recent echo wnl ASA: - ? etiology - renal following, getting IVF, JANE held - appears to have slightly increased edema. discussed with renal will hold IVF. diastolic chf: - getting IVF here for asa. appeared dry/euvolemic --> now with some mild worsened edema. ? third spacing from low albumin? discussed with renal, ok to hold IVF temporarily. venous ins/lymphedema: -chronic swelling --> as above anemia: -baseline values in past here run hgb 6s-9s. requires transfusions periodically -stable here--per heme - not thought to be from bleeding. work up ongoing. monitor with initation of AC. htn: -holding JANE (for ASA) -bp controlled hld: - Given diabetes, consider statin therapy--defer to outpt setting in light of mult acute med issues
--- NOTE | 2017-07-11 15:18 | PN ---
Progress Note, Physician History of Present Illness: remaining stable now itching and rash main concern - Current Medication List Current Medications: Active Medications Acetaminophen (Tylenol -) 650 mg PO Q6H PRN PRN Reason: PAIN Last Admin: 07/11/17 11:22 Dose: 650 mg Albuterol Sulfate (Ventolin 0.083% Nebulizer Soln -) 1 amp NEB Q6H PRN PRN Reason: SHORT OF BREATH/WHEEZING Arformoterol Tartrate (Brovana (Restricted To Pulmonology/Resp) -) 1 amp NEB BID JOVITA Last Admin: 07/11/17 09:50 Dose: 1 amp Ferrous Sulfate (Feosol -) 325 mg PO BID JOVITA Last Admin: 07/11/17 11:11 Dose: 325 mg Meropenem (Merrem (Restricted To Id) -) 10 mls @ 120 mls/hr IVPUSH Q8H-IV JOVITA Last Admin: 07/11/17 10:11 Dose: 120 mls/hr Vancomycin HCl 1,000 mg/ (Dextrose) 250 mls @ 166.667 mls/hr IVPB Q48H JOVITA Last Admin: 07/10/17 12:06 Dose: 166.667 mls/hr Sodium Chloride (Normal Saline -) 1,000 mls @ 65 mls/hr IV ASDIR JOVITA Last Admin: 07/11/17 11:23 Dose: 65 mls/hr Insulin Aspart (Novolog Vial Sliding Scale -) 1 vial SQ ACHS JOVITA PRN Reason: Protocol Last Admin: 07/11/17 12:10 Dose: 4 units Levothyroxine Sodium (Synthroid -) 25 mcg PO AM [facility] Last Admin: 07/11/17 06:27 Dose: 25 mcg Non-Formulary Medication (Tasigna) 300 mg PO BIDAC JOVITA Oxycodone HCl (Roxicodone -) 10 mg PO Q4H PRN Last Admin: 07/11/17 11:12 Dose: 10 mg - Objective Vital Signs: Vital Signs Temperature 97.4 F L 07/11/17 10:00 Pulse Rate 83 07/11/17 10:00 Respiratory Rate 20 07/11/17 10:00 Blood Pressure 124/72 07/11/17 10:00 O2 Sat by Pulse Oximetry (%) 96 07/11/17 09:00 Constitutional: Yes: Calm, Mild Distress, Obese Cardiovascular: Yes: Regular Rate and Rhythm Respiratory: Yes: Regular, On Nasal O2, Poor Air Entry Gastrointestinal: Yes: Normal Bowel Sounds, Soft Musculoskeletal: Yes: WNL Extremities: Yes: Other Integumentary: Yes: Rash, Other Neurological: Yes: Alert, Oriented Psychiatric: Yes: Alert, Oriented Labs: CBC, BMP 07/11/17 05:10 07/11/17 05:10 INR, PTT INR 1.16 (0.82-1.09) H 07/07/17 Unknown Assessment/Plan . 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
--- NOTE | 2017-07-11 15:48 | PN ---
Progress Note, Physician History of Present Illness: Pt seen and examined at bedside. She is awake and alert. She feels that the rash is improving. She feels that her lower extremities are actually not as swollen as they usually are. - Current Medication List Current Medications: Active Medications Acetaminophen (Tylenol -) 650 mg PO Q6H PRN PRN Reason: PAIN Last Admin: 07/11/17 11:22 Dose: 650 mg Albuterol Sulfate (Ventolin 0.083% Nebulizer Soln -) 1 amp NEB Q6H PRN PRN Reason: SHORT OF BREATH/WHEEZING Arformoterol Tartrate (Brovana (Restricted To Pulmonology/Resp) -) 1 amp NEB BID JOVITA Last Admin: 07/11/17 09:50 Dose: 1 amp Ferrous Sulfate (Feosol -) 325 mg PO BID JOVITA Last Admin: 07/11/17 11:11 Dose: 325 mg Meropenem (Merrem (Restricted To Id) -) 10 mls @ 120 mls/hr IVPUSH Q8H-IV JOVITA Last Admin: 07/11/17 10:11 Dose: 120 mls/hr Vancomycin HCl 1,000 mg/ (Dextrose) 250 mls @ 166.667 mls/hr IVPB Q48H JOVITA Last Admin: 07/10/17 12:06 Dose: 166.667 mls/hr Sodium Chloride (Normal Saline -) 1,000 mls @ 65 mls/hr IV ASDIR JOVITA Last Admin: 07/11/17 11:23 Dose: 65 mls/hr Insulin Aspart (Novolog Vial Sliding Scale -) 1 vial SQ ACHS JOVITA PRN Reason: Protocol Last Admin: 07/11/17 12:10 Dose: 4 units Levothyroxine Sodium (Synthroid -) 25 mcg PO AM JOVITA Last Admin: 07/11/17 06:27 Dose: 25 mcg Non-Formulary Medication (Tasigna) 300 mg PO BIDAC JOVITA Oxycodone HCl (Roxicodone -) 10 mg PO Q4H PRN Last Admin: 07/11/17 11:12 Dose: 10 mg - Objective Vital Signs: Vital Signs Temperature 97.4 F L 07/11/17 10:00 Pulse Rate 83 07/11/17 10:00 Respiratory Rate 20 07/11/17 10:00 Blood Pressure 124/72 07/11/17 10:00 O2 Sat by Pulse Oximetry (%) 96 07/11/17 09:00 Constitutional: Yes: Calm Eyes: Yes: Conjunctiva Clear HENT: Yes: Atraumatic Cardiovascular: Yes: S1, S2 Respiratory: Yes: CTA Bilaterally Gastrointestinal: Yes: Soft, Abdomen, Obese Genitourinary: Yes: Hill Present Musculoskeletal: Yes: Muscle Weakness Edema: Yes Edema: LLE: 1+, RLE: 1+ Integumentary: Yes: Rash Wound/Incision: Yes: Dressing Dry and Intact Neurological: Yes: Oriented Psychiatric: Yes: Oriented Labs: CBC, BMP 07/11/17 05:10 07/11/17 05:10 INR, PTT INR 1.16 (0.82-1.09) H 07/07/17 Unknown Problem List - Problems (1) MARIA ELENA positive Code(s): R76.8 - OTHER SPECIFIED ABNORMAL IMMUNOLOGICAL FINDINGS IN SERUM (2) Acute renal insufficiency Code(s): N28.9 - DISORDER OF KIDNEY AND URETER, UNSPECIFIED (3) Hyperkalemia Code(s): E87.5 - HYPERKALEMIA (4) Anemia Code(s): D64.9 - ANEMIA, UNSPECIFIED Qualifiers: Anemia type: other cause Other causes of anemia: acute posthemorrhagic Qualified Code(s): D62 - Acute posthemorrhagic anemia; D62 - Acute posthemorrhagic anemia (5) CHF (congestive heart failure) Code(s): I50.9 - HEART FAILURE, UNSPECIFIED Qualifiers: Congestive heart failure type: diastolic Congestive heart failure chronicity: chronic Qualified Code(s): I50.32 - Chronic diastolic ( congestive) heart failure; I50.32 - Chronic diastolic (congestive) heart failure ; I50.32 - Chronic diastolic (congestive) heart failure; I50.32 - Chronic diastolic (congestive) heart failure (6) CML (chronic myelocytic leukemia) Code(s): C92.10 - CHRONIC MYELOID LEUK, BCR/ABL-POSITIVE, NOT ACHIEVE REMIS (7) Cellulitis of leg, left Code(s): L03.116 - CELLULITIS OF LEFT LOWER LIMB (8) Diabetes Code(s): E11.9 - TYPE 2 DIABETES MELLITUS WITHOUT COMPLICATIONS (9) TURNER (acute kidney injury) Code(s): N17.9 - ACUTE KIDNEY FAILURE, UNSPECIFIED Assessment/Plan Current Medications Generic Name Dose Route Start Last Admin Trade Name Freq PRN Reason Stop Dose Admin Acetaminophen 650 mg 07/07/17 19:54 07/11/17 11:22 Tylenol - PO 650 mg Q6H PRN Administration PAIN Albuterol Sulfate 1 amp 07/08/17 00:37 Ventolin 0.083% Nebulizer Soln - NEB Q6H PRN SHORT OF BREATH/WHEEZING Arformoterol Tartrate 1 amp 07/08/17 12:30 07/11/17 09:50 Brovana (Restricted To Pulmonology/Resp) - NEB 1 amp BID JOVITA Administration Ferrous Sulfate 325 mg 07/07/17 22:00 07/11/17 11:11 Feosol - PO 325 mg BID JOVITA Administration Meropenem 10 mls @ 120 mls/hr 07/08/17 12:30 07/11/17 10:11 Merrem (Restricted To Id) - IVPUSH 120 mls/hr Q8H-IV JOVITA Administration Vancomycin HCl 1,000 mg/ 250 mls @ 166.667 mls/hr 07/10/17 11:00 07/10/17 12:06 Dextrose IVPB 166.667 mls/hr Q48H JOVITA Administration Sodium Chloride 1,000 mls @ 65 mls/hr 07/10/17 14:58 07/11/17 11:23 Normal Saline - IV 65 mls/hr ASDIR JOVITA Administration Insulin Aspart 1 vial 07/07/17 22:00 07/11/17 12:10 Novolog Vial Sliding Scale - SQ 4 units ACHS JOVITA Administration Protocol Levothyroxine Sodium 25 mcg 07/08/17 07:00 07/11/17 06:27 Synthroid - PO 25 mcg AM JOVITA Administration Non-Formulary Medication 300 mg 07/11/17 16:30 Tasigna PO BIDAC JOVITA Oxycodone HCl 10 mg 07/07/17 20:00 07/11/17 11:12 Roxicodone - PO 10 mg Q4H PRN Administration Impression 1. TURNER 2. anemia 3. rash 4. CML 5. hypothyroidism 6. HTN 7. chol 8. CHF 9. COPD 10. hyperkalemia 11. sepsis 12. new onset a-fib Plan - cont current meds - repeat labs in am - rash appears to be improving - repeat ua - discussed with medical attending - likely turner from atn - will follow closely - mental status is improved Dr Sanchez
--- NOTE | 2017-07-11 16:26 | PN ---
Progress Note, Physician Chief Complaint: Ms Hernandez says she is feeling better. No cp, sob, n/v. Asking when she can be discharged - Current Medication List Current Medications: Active Medications Acetaminophen (Tylenol -) 650 mg PO Q6H PRN PRN Reason: PAIN Last Admin: 07/11/17 11:22 Dose: 650 mg Albuterol Sulfate (Ventolin 0.083% Nebulizer Soln -) 1 amp NEB Q6H PRN PRN Reason: SHORT OF BREATH/WHEEZING Arformoterol Tartrate (Brovana (Restricted To Pulmonology/Resp) -) 1 amp NEB BID JOVITA Last Admin: 07/11/17 09:50 Dose: 1 amp Ferrous Sulfate (Feosol -) 325 mg PO BID JOVITA Last Admin: 07/11/17 11:11 Dose: 325 mg Meropenem (Merrem (Restricted To Id) -) 10 mls @ 120 mls/hr IVPUSH Q8H-IV JOVITA Last Admin: 07/11/17 10:11 Dose: 120 mls/hr Vancomycin HCl 1,000 mg/ (Dextrose) 250 mls @ 166.667 mls/hr IVPB Q48H JOVITA Last Admin: 07/10/17 12:06 Dose: 166.667 mls/hr Sodium Chloride (Normal Saline -) 1,000 mls @ 65 mls/hr IV ASDIR JOVITA Last Admin: 07/11/17 11:23 Dose: 65 mls/hr Insulin Aspart (Novolog Vial Sliding Scale -) 1 vial SQ ACHS JOVITA PRN Reason: Protocol Last Admin: 07/11/17 12:10 Dose: 4 units Levothyroxine Sodium (Synthroid -) 25 mcg PO AM JOVITA Last Admin: 07/11/17 06:27 Dose: 25 mcg Non-Formulary Medication (Tasigna) 300 mg PO BIDAC JOVITA Oxycodone HCl (Roxicodone -) 10 mg PO Q4H PRN Last Admin: 07/11/17 11:12 Dose: 10 mg - Objective Vital Signs: Vital Signs Temperature 36.3 C L 07/11/17 10:00 Pulse Rate 83 07/11/17 10:00 Respiratory Rate 20 07/11/17 10:00 Blood Pressure 124/72 07/11/17 10:00 O2 Sat by Pulse Oximetry (%) 96 07/11/17 09:00 Constitutional: Yes: No Distress, Calm, Obese Cardiovascular: Yes: Regular Rate and Rhythm. No: Gallop, Murmur, Rub Respiratory: Yes: Regular, CTA Bilaterally. No: Rales, Rhonchi, Wheezes Gastrointestinal: Yes: Normal Bowel Sounds, Soft. No: Distention, Tenderness Extremities: Yes: Erythema Edema: Yes Edema: LLE: 2+, RLE: 2+ Integumentary: Yes: Rash Labs: CBC, BMP 07/11/17 05:10 07/11/17 05:10 INR, PTT INR 1.16 (0.82-1.09) H 07/07/17 Unknown Problem List - Problems (1) Atrial fibrillation with RVR Code(s): I48.91 - UNSPECIFIED ATRIAL FIBRILLATION (2) Sepsis Code(s): A41.9 - SEPSIS, UNSPECIFIED ORGANISM Qualifiers: Sepsis type: Escherichia coli Qualified Code(s): A41.51 - Sepsis due to Escherichia coli [E. coli]; A41.51 - Sepsis due to Escherichia coli [E. coli]; A41.51 - Sepsis due to Escherichia coli [E. coli] (3) UTI (urinary tract infection) Code(s): N39.0 - URINARY TRACT INFECTION, SITE NOT SPECIFIED Qualifiers: Urinary tract infection type: acute cystitis Hematuria presence: without hematuria Qualified Code(s): N30.00 - Acute cystitis without hematuria; N30.00 - Acute cystitis without hematuria (4) ASA (acute kidney injury) Code(s): N17.9 - ACUTE KIDNEY FAILURE, UNSPECIFIED (5) Drug induced rash with eosinophilia and systemic symptoms Code(s): L27.0 - GEN SKIN ERUPTION DUE TO DRUGS AND MEDS TAKEN INTERNALLY D72.1 - EOSINOPHILIA T50.905A - ADVERSE EFFECT OF UNSP DRUG/MEDS/BIOL SUBST, INIT (6) Anemia Code(s): D64.9 - ANEMIA, UNSPECIFIED Qualifiers: Anemia type: other cause Other causes of anemia: acute posthemorrhagic Qualified Code(s): D62 - Acute posthemorrhagic anemia; D62 - Acute posthemorrhagic anemia (7) CHF (congestive heart failure) Code(s): I50.9 - HEART FAILURE, UNSPECIFIED Qualifiers: Congestive heart failure type: diastolic Congestive heart failure chronicity: chronic Qualified Code(s): I50.32 - Chronic diastolic ( congestive) heart failure; I50.32 - Chronic diastolic (congestive) heart failure ; I50.32 - Chronic diastolic (congestive) heart failure; I50.32 - Chronic diastolic (congestive) heart failure (8) CML (chronic myelocytic leukemia) Code(s): C92.10 - CHRONIC MYELOID LEUK, BCR/ABL-POSITIVE, NOT ACHIEVE REMIS (9) COPD (chronic obstructive pulmonary disease) Code(s): J44.9 - CHRONIC OBSTRUCTIVE PULMONARY DISEASE, UNSPECIFIED (10) Diabetes Code(s): E11.9 - TYPE 2 DIABETES MELLITUS WITHOUT COMPLICATIONS (11) Hypothyroid Code(s): E03.9 - HYPOTHYROIDISM, UNSPECIFIED Assessment/Plan (1) Atrial fibrillation with RVR Assessment/Plan: -currently in sinus rhythm on exam -cardiology to comment -d/w oncology, benefit of anticoagulation may outweigh risk Code(s): I48.91 - UNSPECIFIED ATRIAL FIBRILLATION (2) Sepsis Assessment/Plan: -currently resolving -continue IVF and antibiotics per ID Code(s): A41.9 - SEPSIS, UNSPECIFIED ORGANISM Qualifiers: Sepsis type: Escherichia coli Qualified Code(s): A41.51 - Sepsis due to Escherichia coli [E. coli]; A41.51 - Sepsis due to Escherichia coli [E. coli]; A41.51 - Sepsis due to Escherichia coli [E. coli] (3) UTI (urinary tract infection) Assessment/Plan: -patient presenting with resistant e coli UTI -ID following -continue vancomycin and merrem Code(s): N39.0 - URINARY TRACT INFECTION, SITE NOT SPECIFIED Qualifiers: Urinary tract infection type: acute cystitis Hematuria presence: without hematuria Qualified Code(s): N30.00 - Acute cystitis without hematuria; N30.00 - Acute cystitis without hematuria (4) ASA (acute kidney injury) Assessment/Plan: -patient's renal function steadily declining but stable this admission -? if secondary to sustain repeated injury (sepsis, anemia, DM) -continue IVF -hold nephrotoxic agents -nephrology following Code(s): N17.9 - ACUTE KIDNEY FAILURE, UNSPECIFIED (5) Drug induced rash with eosinophilia and systemic symptoms Assessment/Plan: -improving Code(s): L27.0 - GEN SKIN ERUPTION DUE TO DRUGS AND MEDS TAKEN INTERNALLY D72.1 - EOSINOPHILIA T50.905A - ADVERSE EFFECT OF UNSP DRUG/MEDS/BIOL SUBST, INIT (6) Anemia Assessment/Plan: -continue iron -at baseline Code(s): D64.9 - ANEMIA, UNSPECIFIED Qualifiers: Anemia type: other cause Other causes of anemia: acute posthemorrhagic Qualified Code(s): D62 - Acute posthemorrhagic anemia; D62 - Acute posthemorrhagic anemia (7) CHF (congestive heart failure) Assessment/Plan: -not in exacerbation -holding torsemide secondary to renal function -hydration -monitor I/Os Code(s): I50.9 - HEART FAILURE, UNSPECIFIED Qualifiers: Congestive heart failure type: diastolic Congestive heart failure chronicity: chronic Qualified Code(s): I50.32 - Chronic diastolic ( congestive) heart failure; I50.32 - Chronic diastolic (congestive) heart failure ; I50.32 - Chronic diastolic (congestive) heart failure; I50.32 - Chronic diastolic (congestive) heart failure (8) CML (chronic myelocytic leukemia) Assessment/Plan: -hematology following and case discussed -tasigna restarted Code(s): C92.10 - CHRONIC MYELOID LEUK, BCR/ABL-POSITIVE, NOT ACHIEVE REMIS (9) COPD (chronic obstructive pulmonary disease) Assessment/Plan: -not in exacerbation -continue current regimen Code(s): J44.9 - CHRONIC OBSTRUCTIVE PULMONARY DISEASE, UNSPECIFIED (10) Diabetes Assessment/Plan: -continue current management Code(s): E11.9 - TYPE 2 DIABETES MELLITUS WITHOUT COMPLICATIONS (11) Hypothyroid Assessment/Plan: -continue synthroid Code(s): E03.9 - HYPOTHYROIDISM, UNSPECIFIED
[2017-07-11] MEDS ORDERED: HEPARIN NA (PORCINE) 5,000 UNITS/ML 1ML VIAL IVPUSH PRN (19:04)
[2017-07-11] MEDS ORDERED: WARFARIN NA 5 MG TABLET (UD) PO ONE (19:05)
[2017-07-11 21:14] LABS: URINE APPEARANCE SLCLOUDY; URINE BILIRUBIN NEGATIVE (NEGATIVE); URINE BLOOD NEGATIVE (NEGATIVE); URINE COLOR YELLOW; URINE GLUCOSE (UA) NEGATIVE (NEGATIVE); URINE KETONE NEGATIVE (NEGATIVE); URINE NITRITE NEGATIVE (NEGATIVE); URINE PROTEIN NEGATIVE (NEGATIVE); URINE UROBILINOGEN NEGATIVE mg/dL (0.2-1.0)
[2017-07-11] MEDS ORDERED: INSULIN (NOVOLOG) ASPART 100 UNITS/ML 10ML VIAL ONE (21:34)
[2017-07-11] MEDS: HEPARIN - 25,000 UNIT in SODIUM CHLORIDE 495 ML IV SCH (22:43)
[2017-07-11 22:55] LABS: URINE LEUK ESTERASE TRACE (NEGATIVE)
[2017-07-12] MEDS: MEROPENEM 500 MG PUSH 10 ML IVPUSH SCH ×3 (02:25→17:33)
[2017-07-12] MEDS: oxyCODONE HCL 5 MG TABLET PO PRN ×5 (03:45→21:26)
[2017-07-12] MEDS: ACETAMINOPHEN 325 MG TABLET (FP) PO PRN ×2 (03:46→17:33)
[2017-07-12 08:00] LABS: INR 1.05 (0.82-1.09); PROTHROMBIN TIME (PATIENT) 11.9 SEC (9.98-11.88)
[2017-07-12 08:29] LABS: MCH 29.4 pg (25.7-33.7); MCHC 33.8 g/dl (32.0-36.0); MEAN CELL VOLUME 86.9 fl (80-96); MEAN PLT VOLUME 8.1 fl (7.5-11.1); PLATELET COUNT 143 K/MM3 (134-434); RDW 17.2 % (11.6-15.6); WHITE BLOOD COUNT 7.2 K/mm3 (4.0-10.0)
[2017-07-12 09:26] LABS: C-REACTIVE PROTEIN 10.5 MG/DL (0.00-0.3)
[2017-07-12 09:29] LABS: ALBUMIN 1.8 g/dl (3.4-5.0); ALK PHOS 143 U/L (45-117); ANION GAP 14 (8-16); BILIRUBIN,TOTAL 0.3 mg/dL (0.2-1.0); CALCIUM 7.1 mg/dL (8.5-10.1); CO2 17 mmol/L (21-32); CREATININE 2.4 mg/dL (0.55-1.02); GLUCOSE,RANDOM 115 mg/dL (74-106); LDH 159 U/L (84-246); SGOT/AST 10 U/L (15-37); SGPT/ALT 13 U/L (12-78); TOT PROT 6.2 g/dl (6.4-8.2)
[2017-07-12] MEDS: ARFORMOTEROL TARTRATE 15 MCG/2 ML VIAL NEB SCH ×2 (09:40→22:07)
--- NOTE | 2017-07-12 11:01 | PN ---
Progress Note (short form) - Note Progress Note: CC: afib S: no cp, palps, dizziness, sob. Current Medications Generic Name Dose Route Start Last Admin Trade Name Freq PRN Reason Stop Dose Admin Acetaminophen 650 mg 07/07/17 19:54 07/12/17 03:46 Tylenol - PO 650 mg Q6H PRN Administration PAIN Albuterol Sulfate 1 amp 07/08/17 00:37 Ventolin 0.083% Nebulizer Soln - NEB Q6H PRN SHORT OF BREATH/WHEEZING Arformoterol Tartrate 1 amp 07/08/17 12:30 07/12/17 09:40 Brovana (Restricted To Pulmonology/Resp) - NEB 1 amp BID JOVITA Administration Ferrous Sulfate 325 mg 07/07/17 22:00 07/11/17 21:44 Feosol - PO 325 mg BID JOVITA Administration Heparin Sodium (Porcine) 1,000 unit 07/11/17 19:04 Heparin - IVPUSH PRN PRN Heparin Meropenem 10 mls @ 120 mls/hr 07/08/17 12:30 07/12/17 02:25 Merrem (Restricted To Id) - IVPUSH Not Given Q8H-IV JOVITA Vancomycin HCl 1,000 mg/ 250 mls @ 166.667 mls/hr 07/10/17 11:00 07/10/17 12: 06 Dextrose IVPB 166.667 mls/hr Q48H JOVITA Administration Heparin Sodium (Porcine) 25, 500 mls @ 20 mls/hr 07/11/17 19:15 07/11/17 22: 43 000 unit/ Sodium Chloride IV 1,000 unit/hr TITR JOVITA 20 mls/hr Protocol Administration 1,000 UNIT/HR Insulin Aspart 1 vial 07/07/17 22:00 07/11/17 21:44 Novolog Vial Sliding Scale - SQ 2 units ACHS JOVITA Administration Protocol Levothyroxine Sodium 25 mcg 07/08/17 07:00 07/11/17 06:27 Synthroid - PO 25 mcg AM JOVITA Administration Non-Formulary Medication 300 mg 07/11/17 16:30 Tasigna PO BIDAC JOVITA Oxycodone HCl 10 mg 07/07/17 20:00 07/12/17 08:55 Roxicodone - PO 10 mg Q4H PRN Administration Pantoprazole Sodium 40 mg 07/12/17 10:45 Protonix - PO DAILY JOVITA Vital Signs Period Temp Pulse Resp BP Sys/[place] Pulse Ox Last 24 Hr 98.2 F-98.8 F 80-86 18-20 132-150/64-76 98-100 nad, no jvd rrr s1s2 no mrg cta b/l, nleff abd nd nt, obese. pos bs pos dp/pt + erythematous rash with skin sloughing trace -1+ dependent edema no c/c no diaphoresis no jaundice aaox3 CBC, BMP 07/12/17 05:35 07/12/17 05:35 echo 04/2017: tds. nl lv/rv. 1+ lae. mod mac mild-mod tr rvsp 45. tele: afib, rate controlled A/P 66 yo f with hx htn, dm, hld, hypothyroid, obesity, possible copd, CML/anemia, p /w chills found to have uti/sepsis/asa. hospital course complicated by new afib with rvr. new afib - hgb is stable vs prior baseline. was 6's on admit, currently around 8. - this would provide little reserve if she develops bleeding on AC agent; - CHADS VASC = 3, hence not very high cva risk (3%/year) and with short period in afib. Discussed risk/benefit (see prior notes) with heme --> cleared for trial of AC. given BMI and renal function will initiate heparin bridge to coumadin. montioring of hgb while on heparin bridge. - currently rate controlled/SR off av kia blockade, con't to monitor tele - recent echo wnl ASA: - ? etiology - renal following, getting IVF, JANE held - appears to have slightly increased edema. holding IVF. diastolic chf: - getting IVF here for asa. appeared dry/euvolemic --> now with some mild worsened edema. ? third spacing from low albumin? hold ivfs venous ins/lymphedema: -chronic swelling --> as above anemia: -baseline values in past here run hgb 6s-9s. requires transfusions periodically -stable here--per heme - not thought to be from bleeding. work up ongoing. monitor with initation of AC. htn: -holding JANE (for ASA) -bp controlled hld: - Given diabetes, consider statin therapy--defer to outpt setting in light of mult acute med issues
[2017-07-12] MEDS ORDERED: HEPARIN NA (PORCINE) 5,000 UNITS/ML 1ML VIAL IVPUSH PRN (11:02)
[2017-07-12] MEDS: PANTOPRAZOLE 40 MG TABLET (FP) PO SCH (11:08)
[2017-07-12] MEDS: FERROUS SO4 325 MG TABLET (FP) PO SCH ×2 (11:08→21:26)
[2017-07-12] MEDS: INSULIN SLIDING SCALE (NOVOLOG) 1 VIAL SQ SCH ×3 (11:14→21:25)
[2017-07-12] MEDS: VANCOMYCIN 1,000 MG in DEXTROSE 5%-WATER - 250 ML IVPB SCH (11:15)
[2017-07-12] MEDS: HEPARIN NA (PORCINE) 5,000 UNITS/ML 1ML VIAL IVPUSH PRN ×2 (11:21→23:11)
--- NOTE | 2017-07-12 11:37 | PN ---
Progress Note, Physician Chief Complaint: Ms Hernandez does not have a physical complaint today. Says she is feeling fine and wants to be discharged. Very tearful on exam, saying staying in the hospital is driving her crazy. - Current Medication List Current Medications: Active Medications Acetaminophen (Tylenol -) 650 mg PO Q6H PRN PRN Reason: PAIN Last Admin: 07/12/17 03:46 Dose: 650 mg Albuterol Sulfate (Ventolin 0.083% Nebulizer Soln -) 1 amp NEB Q6H PRN PRN Reason: SHORT OF BREATH/WHEEZING Arformoterol Tartrate (Brovana (Restricted To Pulmonology/Resp) -) 1 amp NEB BID JOVITA Last Admin: 07/12/17 09:40 Dose: 1 amp Diphenhydramine HCl (Benadryl -) 25 mg PO Q6H PRN PRN Reason: FOR ITCHING Ferrous Sulfate (Feosol -) 325 mg PO BID JOVITA Last Admin: 07/12/17 11:08 Dose: 325 mg Heparin Sodium (Porcine) (Heparin -) 5,000 unit IVPUSH PRN PRN PRN Reason: Heparin Last Admin: 07/12/17 11:21 Dose: 5,000 unit Heparin Sodium (Porcine) (Heparin -) 1,000 unit IVPUSH PRN PRN PRN Reason: Heparin Meropenem (Merrem (Restricted To Id) -) 10 mls @ 120 mls/hr IVPUSH Q8H-IV JOVITA Last Admin: 07/12/17 11:14 Dose: Not Given Vancomycin HCl 1,000 mg/ (Dextrose) 250 mls @ 166.667 mls/hr IVPB Q48H JOVITA Last Admin: 07/12/17 11:15 Dose: Not Given Heparin Sodium (Porcine) 25, (000 unit/ Sodium Chloride) 500 mls @ 20 mls/hr IV TITR JOVITA; 1,000 UNIT/HR PRN Reason: Protocol Last Titration: 07/12/17 11:10 Dose: 1,150 unit/hr, 23 mls/hr Insulin Aspart (Novolog Vial Sliding Scale -) 1 vial SQ ACHS JOVITA PRN Reason: Protocol Last Admin: 07/12/17 11:14 Dose: 2 units Levothyroxine Sodium (Synthroid -) 25 mcg PO AM JOVITA Last Admin: 07/11/17 06:27 Dose: 25 mcg Non-Formulary Medication (Tasigna) 300 mg PO BIDAC JOVITA Oxycodone HCl (Roxicodone -) 10 mg PO Q4H PRN Last Admin: 07/12/17 08:55 Dose: 10 mg Pantoprazole Sodium (Protonix -) 40 mg PO DAILY JOVITA Last Admin: 07/12/17 11:08 Dose: 40 mg Warfarin Sodium (Coumadin -) 7.5 mg PO ONCE@1800 ONE Stop: 07/12/17 18:01 - Objective Vital Signs: Vital Signs Temperature 36.8 C 07/12/17 02:00 Pulse Rate 82 07/12/17 09:40 Respiratory Rate 20 07/12/17 02:00 Blood Pressure 150/76 07/12/17 02:00 O2 Sat by Pulse Oximetry (%) 100 07/12/17 09:40 Constitutional: Yes: Moderate Distress, Obese Cardiovascular: Yes: Regular Rate and Rhythm. No: Gallop, Murmur, Rub Respiratory: Yes: Regular, CTA Bilaterally. No: Rales, Rhonchi, Wheezes Gastrointestinal: Yes: Normal Bowel Sounds, Soft. No: Distention, Tenderness Extremities: Yes: Erythema Edema: Yes Edema: LLE: 2+, RLE: 2+ Integumentary: Yes: Rash Labs: CBC, BMP 07/12/17 05:35 07/12/17 05:35 INR, PTT INR 1.05 (0.82-1.09) 07/12/17 05:35 Problem List - Problems (1) Diabetes Code(s): E11.9 - TYPE 2 DIABETES MELLITUS WITHOUT COMPLICATIONS (2) CML (chronic myelocytic leukemia) Code(s): C92.10 - CHRONIC MYELOID LEUK, BCR/ABL-POSITIVE, NOT ACHIEVE REMIS (3) Anemia Code(s): D64.9 - ANEMIA, UNSPECIFIED Qualifiers: Anemia type: other cause Other causes of anemia: acute posthemorrhagic Qualified Code(s): D62 - Acute posthemorrhagic anemia (4) Hypothyroid Code(s): E03.9 - HYPOTHYROIDISM, UNSPECIFIED (5) COPD (chronic obstructive pulmonary disease) Code(s): J44.9 - CHRONIC OBSTRUCTIVE PULMONARY DISEASE, UNSPECIFIED (6) CHF (congestive heart failure) Code(s): I50.9 - HEART FAILURE, UNSPECIFIED Qualifiers: Congestive heart failure type: diastolic Congestive heart failure chronicity: chronic Qualified Code(s): I50.32 - Chronic diastolic (congestive ) heart failure (7) Sepsis Code(s): A41.9 - SEPSIS, UNSPECIFIED ORGANISM Qualifiers: Sepsis type: Escherichia coli Qualified Code(s): A41.51 - Sepsis due to Escherichia coli [E. coli] (8) Drug induced rash with eosinophilia and systemic symptoms Code(s): L27.0 - GEN SKIN ERUPTION DUE TO DRUGS AND MEDS TAKEN INTERNALLY; D72.1 - EOSINOPHILIA; T50.905A - ADVERSE EFFECT OF UNSP DRUG/MEDS/BIOL SUBST, INIT (9) ASA (acute kidney injury) Code(s): N17.9 - ACUTE KIDNEY FAILURE, UNSPECIFIED (10) Atrial fibrillation with RVR Code(s): I48.91 - UNSPECIFIED ATRIAL FIBRILLATION (11) UTI (urinary tract infection) Code(s): N39.0 - URINARY TRACT INFECTION, SITE NOT SPECIFIED Qualifiers: Urinary tract infection type: acute cystitis Hematuria presence: without hematuria Qualified Code(s): N30.00 - Acute cystitis without hematuria Assessment/Plan (1) Atrial fibrillation with RVR Assessment/Plan: -currently in sinus rhythm on exam -after discussion benefit of anticoagulation outweigh risk -currently on heparin gtt and bridging to coumadin -daily INR Code(s): I48.91 - UNSPECIFIED ATRIAL FIBRILLATION (2) Sepsis Assessment/Plan: -resolved Code(s): A41.9 - SEPSIS, UNSPECIFIED ORGANISM Qualifiers: Sepsis type: Escherichia coli Qualified Code(s): A41.51 - Sepsis due to Escherichia coli [E. coli]; A41.51 - Sepsis due to Escherichia coli [E. coli]; A41.51 - Sepsis due to Escherichia coli [E. coli] (3) UTI (urinary tract infection) Assessment/Plan: -patient currently refusing her vancomycin and merrem secondary to emotional frustration -ID to see and evaluate if can change to oral antibiotics or stop fully -attempted to discuss importance of IV antibiotics but patient not emotionally prepared to listen at this time Code(s): N39.0 - URINARY TRACT INFECTION, SITE NOT SPECIFIED Qualifiers: Urinary tract infection type: acute cystitis Hematuria presence: without hematuria Qualified Code(s): N30.00 - Acute cystitis without hematuria; N30.00 - Acute cystitis without hematuria (4) ASA (acute kidney injury) Assessment/Plan: -patient's renal function steadily declining but stable this admission -nephrology following and managing -monitor off of fluids and diuretics -most likely secondary to ATN Code(s): N17.9 - ACUTE KIDNEY FAILURE, UNSPECIFIED (5) Drug induced rash with eosinophilia and systemic symptoms Assessment/Plan: -improving -prn benadryl for itching Code(s): L27.0 - GEN SKIN ERUPTION DUE TO DRUGS AND MEDS TAKEN INTERNALLY D72.1 - EOSINOPHILIA T50.905A - ADVERSE EFFECT OF UNSP DRUG/MEDS/BIOL SUBST, INIT (6) Anemia Assessment/Plan: -continue iron -at baseline Code(s): D64.9 - ANEMIA, UNSPECIFIED Qualifiers: Anemia type: other cause Other causes of anemia: acute posthemorrhagic Qualified Code(s): D62 - Acute posthemorrhagic anemia; D62 - Acute posthemorrhagic anemia (7) CHF (congestive heart failure) Assessment/Plan: -not in exacerbation -holding torsemide secondary to renal function -monitors I/Os Code(s): I50.9 - HEART FAILURE, UNSPECIFIED Qualifiers: Congestive heart failure type: diastolic Congestive heart failure chronicity: chronic Qualified Code(s): I50.32 - Chronic diastolic ( congestive) heart failure; I50.32 - Chronic diastolic (congestive) heart failure ; I50.32 - Chronic diastolic (congestive) heart failure; I50.32 - Chronic diastolic (congestive) heart failure (8) CML (chronic myelocytic leukemia) Assessment/Plan: -hematology following and case discussed -tasigna restarted Code(s): C92.10 - CHRONIC MYELOID LEUK, BCR/ABL-POSITIVE, NOT ACHIEVE REMIS (9) COPD (chronic obstructive pulmonary disease) Assessment/Plan: -not in exacerbation -continue current regimen Code(s): J44.9 - CHRONIC OBSTRUCTIVE PULMONARY DISEASE, UNSPECIFIED (10) Diabetes Assessment/Plan: -continue current management Code(s): E11.9 - TYPE 2 DIABETES MELLITUS WITHOUT COMPLICATIONS (11) Hypothyroid Assessment/Plan: -continue synthroid Code(s): E03.9 - HYPOTHYROIDISM, UNSPECIFIED Dispo -patient very distressed about being in the hospital -case d/w Dr Floyd, will consult palliative care for emotional support -for patient to be ready for discharge back to SNF will need -renal function stabilized and nephrology commenting on if can restart torsemide and at what dose -taken off of antibiotics or changed to oral antibiotics -not needing heparin bridge and maintained solely on coumadin NOTE: patient is on protonix as an outpatient and should be continued on discharge
--- NOTE | 2017-07-12 11:47 | PN ---
Progress Note (short form) - Note Progress Note: seen and examined this am. chart reviewed Was very emotional today. Tired of being hospitalized O/E: NAD erythematous skin all over peeling off. CTA b/l Hill in place LE changes better she has anasarca AAOx3 Last Vital Signs Temp Pulse Resp BP Pulse Ox 97.8 F 84 20 119/50 94 L 07/11/17 06:00 07/11/17 06:00 07/11/17 06:00 07/11/17 06:00 07/10/17 21:00 CBC, BMP 07/11/17 05:10 07/11/17 05:10 Current Medications Generic Name Dose Route Start Last Admin Trade Name Freq PRN Reason Stop Dose Admin Acetaminophen 650 mg 07/07/17 19:54 07/11/17 11:22 Tylenol - PO 650 mg Q6H PRN Administration PAIN Albuterol Sulfate 1 amp 07/08/17 00:37 Ventolin 0.083% Nebulizer Soln - NEB Q6H PRN SHORT OF BREATH/WHEEZING Arformoterol Tartrate 1 amp 07/08/17 12:30 07/10/17 22:58 Brovana (Restricted To Pulmonology/Resp) - NEB 1 amp BID JOVITA Administration Ferrous Sulfate 325 mg 07/07/17 22:00 07/11/17 11:11 Feosol - PO 325 mg BID JOVITA Administration Meropenem 10 mls @ 120 mls/hr 07/08/17 12:30 07/11/17 10:11 Merrem (Restricted To Id) - IVPUSH 120 mls/hr Q8H-IV JOVITA Administration Vancomycin HCl 1,000 mg/ 250 mls @ 166.667 mls/hr 07/10/17 11:00 07/10/17 12:06 Dextrose IVPB 166.667 mls/hr Q48H JOVITA Administration Sodium Chloride 1,000 mls @ 65 mls/hr 07/10/17 14:58 07/11/17 11:23 Normal Saline - IV 65 mls/hr ASDIR JOVITA Administration Insulin Aspart 1 vial 07/07/17 22:00 07/11/17 06:26 Novolog Vial Sliding Scale - SQ Not Given ACHS JOVITA Protocol Levothyroxine Sodium 25 mcg 07/08/17 07:00 11/07/17 06:27 Synthroid - PO 25 mcg AM JOVITA Administration Oxycodone HCl 10 mg 07/07/17 20:00 07/11/17 11:12 Roxicodone - PO 10 mg Q4H PRN Administration CML -restart Nilotinib, sister is yet to bring the medications -will f/u on repeat BCR ABL. -she would need a marrow at some point. -will f/u iron studies, last EGD/Colonoscopy negative New afib -will be on systemic ac. due to her BMI/Cr, couamdin bridge with UFH , is the choice -will continue to monitor closely ATN: -cr 2.4, improving Rash: -improving Sepsis: -source? -ID f/u -on abx. Asked Palliative care to see for support.
[2017-07-12] MEDS: diphenhydrAMINE HCL 25 MG CAPSULE (FP) PO PRN (12:04)
--- NOTE | 2017-07-12 12:22 | PN ---
Progress Note, Physician History of Present Illness: Pt seen and examined at bedside. She is awake and alert. She denies shortness of breath. - Current Medication List Current Medications: Active Medications Acetaminophen (Tylenol -) 650 mg PO Q6H PRN PRN Reason: PAIN Last Admin: 07/12/17 03:46 Dose: 650 mg Albuterol Sulfate (Ventolin 0.083% Nebulizer Soln -) 1 amp NEB Q6H PRN PRN Reason: SHORT OF BREATH/WHEEZING Arformoterol Tartrate (Brovana (Restricted To Pulmonology/Resp) -) 1 amp NEB BID JOVITA Last Admin: 07/12/17 09:40 Dose: 1 amp Diphenhydramine HCl (Benadryl -) 25 mg PO Q6H PRN PRN Reason: FOR ITCHING Last Admin: 07/12/17 12:04 Dose: 25 mg Ferrous Sulfate (Feosol -) 325 mg PO BID JOVITA Last Admin: 07/12/17 11:08 Dose: 325 mg Heparin Sodium (Porcine) (Heparin -) 5,000 unit IVPUSH PRN PRN PRN Reason: Heparin Last Admin: 07/12/17 11:21 Dose: 5,000 unit Heparin Sodium (Porcine) (Heparin -) 1,000 unit IVPUSH PRN PRN PRN Reason: Heparin Meropenem (Merrem (Restricted To Id) -) 10 mls @ 120 mls/hr IVPUSH Q8H-IV JOVITA Last Admin: 07/12/17 11:14 Dose: Not Given Vancomycin HCl 1,000 mg/ (Dextrose) 250 mls @ 166.667 mls/hr IVPB Q48H JOVITA Last Admin: 07/12/17 11:15 Dose: Not Given Heparin Sodium (Porcine) 25, (000 unit/ Sodium Chloride) 500 mls @ 20 mls/hr IV TITR JOVITA; 1,000 UNIT/HR PRN Reason: Protocol Last Titration: 07/12/17 11:10 Dose: 1,150 unit/hr, 23 mls/hr Insulin Aspart (Novolog Vial Sliding Scale -) 1 vial SQ ACHS JOVITA PRN Reason: Protocol Last Admin: 07/12/17 11:14 Dose: 2 units Levothyroxine Sodium (Synthroid -) 25 mcg PO AM JOVITA Last Admin: 07/11/17 06:27 Dose: 25 mcg Non-Formulary Medication (Tasigna) 300 mg PO BIDAC COUNTS INCLUDE 234 BEDS AT THE [facility] Oxycodone HCl (Roxicodone -) 10 mg PO Q4H PRN Last Admin: 07/12/17 08:55 Dose: 10 mg Pantoprazole Sodium (Protonix -) 40 mg PO DAILY COUNTS INCLUDE 234 BEDS AT THE [facility] Last Admin: 07/12/17 11:08 Dose: 40 mg Warfarin Sodium (Coumadin -) 7.5 mg PO ONCE@1800 ONE Stop: 07/12/17 18:01 - Objective Vital Signs: Vital Signs Temperature 98.3 F 07/12/17 02:00 Pulse Rate 82 07/12/17 09:40 Respiratory Rate 20 07/12/17 02:00 Blood Pressure 150/76 07/12/17 02:00 O2 Sat by Pulse Oximetry (%) 100 07/12/17 09:40 Constitutional: Yes: Calm Eyes: Yes: Conjunctiva Clear HENT: Yes: Atraumatic Neck: Yes: Supple Cardiovascular: Yes: S1, S2 Respiratory: Yes: CTA Bilaterally Gastrointestinal: Yes: Soft, Abdomen, Obese Genitourinary: Yes: Hill Present Musculoskeletal: Yes: WNL Edema: Yes Edema: LLE: 1+, RLE: 1+ Integumentary: Yes: Rash Neurological: Yes: Oriented Psychiatric: Yes: Oriented Labs: CBC, BMP 07/12/17 05:35 07/12/17 05:35 INR, PTT INR 1.05 (0.82-1.09) 07/12/17 05:35 Problem List - Problems (1) Diabetes Code(s): E11.9 - TYPE 2 DIABETES MELLITUS WITHOUT COMPLICATIONS (2) CML (chronic myelocytic leukemia) Code(s): C92.10 - CHRONIC MYELOID LEUK, BCR/ABL-POSITIVE, NOT ACHIEVE REMIS (3) Anemia Code(s): D64.9 - ANEMIA, UNSPECIFIED Qualifiers: Anemia type: other cause Other causes of anemia: acute posthemorrhagic Qualified Code(s): D62 - Acute posthemorrhagic anemia (4) Cellulitis of leg, left Code(s): L03.116 - CELLULITIS OF LEFT LOWER LIMB (5) CHF (congestive heart failure) Code(s): I50.9 - HEART FAILURE, UNSPECIFIED Qualifiers: Congestive heart failure type: diastolic Congestive heart failure chronicity: chronic Qualified Code(s): I50.32 - Chronic diastolic (congestive ) heart failure (6) Acute renal insufficiency Code(s): N28.9 - DISORDER OF KIDNEY AND URETER, UNSPECIFIED (7) Hyperkalemia Code(s): E87.5 - HYPERKALEMIA (8) MARIA ELENA positive Code(s): R76.8 - OTHER SPECIFIED ABNORMAL IMMUNOLOGICAL FINDINGS IN SERUM (9) ASA (acute kidney injury) Code(s): N17.9 - ACUTE KIDNEY FAILURE, UNSPECIFIED Assessment/Plan Current Medications Generic Name Dose Route Start Last Admin Trade Name Freq PRN Reason Stop Dose Admin Acetaminophen 650 mg 07/07/17 19:54 07/12/17 03:46 Tylenol - PO 650 mg Q6H PRN Administration PAIN Albuterol Sulfate 1 amp 07/08/17 00:37 Ventolin 0.083% Nebulizer Soln - NEB Q6H PRN SHORT OF BREATH/WHEEZING Arformoterol Tartrate 1 amp 07/08/17 12:30 07/12/17 09:40 Brovana (Restricted To Pulmonology/Resp) - NEB 1 amp BID JOVITA Administration Diphenhydramine HCl 25 mg 07/12/17 11:06 07/12/17 12:04 Benadryl - PO 25 mg Q6H PRN Administration FOR ITCHING Ferrous Sulfate 325 mg 07/07/17 22:00 07/12/17 11:08 Feosol - PO 325 mg BID JOVITA Administration Heparin Sodium (Porcine) 5,000 unit 07/12/17 11:02 07/12/17 11:21 Heparin - IVPUSH 5,000 unit PRN PRN Administration Heparin Heparin Sodium (Porcine) 1,000 unit 07/12/17 11:02 Heparin - IVPUSH PRN PRN Heparin Meropenem 10 mls @ 120 mls/hr 07/08/17 12:30 07/12/17 11:14 Merrem (Restricted To Id) - IVPUSH Not Given Q8H-IV JOVITA Vancomycin HCl 1,000 mg/ 250 mls @ 166.667 mls/hr 07/10/17 11:00 07/12/17 11: 15 Dextrose IVPB Not Given Q48H JOVITA Heparin Sodium (Porcine) 25, 500 mls @ 20 mls/hr 07/11/17 19:15 07/12/17 11: 10 000 unit/ Sodium Chloride IV 1,150 unit/hr TITR JOVITA 23 mls/hr Protocol Titration 1,000 UNIT/HR Insulin Aspart 1 vial 07/07/17 22:00 07/12/17 11:14 Novolog Vial Sliding Scale - SQ 2 units ACHS JOVITA Administration Protocol Levothyroxine Sodium 25 mcg 07/08/17 07:00 07/11/17 06:27 Synthroid - PO 25 mcg AM JOVITA Administration Non-Formulary Medication 300 mg 07/11/17 16:30 Tasigna PO BIDAC JOVITA Oxycodone HCl 10 mg 07/07/17 20:00 07/12/17 08:55 Roxicodone - PO 10 mg Q4H PRN Administration Pantoprazole Sodium 40 mg 07/12/17 10:45 07/12/17 11:08 Protonix - PO 40 mg DAILY JOVITA Administration Warfarin Sodium 7.5 mg 07/12/17 18:00 Coumadin - PO 07/12/17 18:01 ONCE@1800 ONE Laboratory Tests 07/11/17 07/11/17 18:40 18:40 Urine Protein Negative Urine Blood Negative Ur Leukocyte Esterase Trace H D Urine Eosinophils Pending Impression 1. ASA 2. anemia 3. rash 4. CML 5. hypothyroidism 6. HTN 7. chol 8. CHF 9. COPD 10. hyperkalemia 11. sepsis 12. new onset a-fib Plan - renal function is starting to improve - check pulse ox with and without oxygen - fluids stopped, will monitor off of fluids - hold diuretics for now - hold jarek for now - repeat labs in am - urine studies reviewed, follow up urine eos - repeat ua neg for blood or protein - likely asa from atn - will follow closely Dr Sanchez
--- NOTE | 2017-07-12 12:25 | PN ---
Progress Note, Physician History of Present Illness: lost iv access also patient refusing any more iv - Current Medication List Current Medications: Active Medications Acetaminophen (Tylenol -) 650 mg PO Q6H PRN PRN Reason: PAIN Last Admin: 07/12/17 03:46 Dose: 650 mg Albuterol Sulfate (Ventolin 0.083% Nebulizer Soln -) 1 amp NEB Q6H PRN PRN Reason: SHORT OF BREATH/WHEEZING Arformoterol Tartrate (Brovana (Restricted To Pulmonology/Resp) -) 1 amp NEB BID JOVITA Last Admin: 07/12/17 09:40 Dose: 1 amp Diphenhydramine HCl (Benadryl -) 25 mg PO Q6H PRN PRN Reason: FOR ITCHING Last Admin: 07/12/17 12:04 Dose: 25 mg Ferrous Sulfate (Feosol -) 325 mg PO BID JOVITA Last Admin: 07/12/17 11:08 Dose: 325 mg Heparin Sodium (Porcine) (Heparin -) 5,000 unit IVPUSH PRN PRN PRN Reason: Heparin Last Admin: 07/12/17 11:21 Dose: 5,000 unit Heparin Sodium (Porcine) (Heparin -) 1,000 unit IVPUSH PRN PRN PRN Reason: Heparin Meropenem (Merrem (Restricted To Id) -) 10 mls @ 120 mls/hr IVPUSH Q8H-IV JOVITA Last Admin: 07/12/17 11:14 Dose: Not Given Vancomycin HCl 1,000 mg/ (Dextrose) 250 mls @ 166.667 mls/hr IVPB Q48H JOVITA Last Admin: 07/12/17 11:15 Dose: Not Given Heparin Sodium (Porcine) 25, (000 unit/ Sodium Chloride) 500 mls @ 20 mls/hr IV TITR JOVITA; 1,000 UNIT/HR PRN Reason: Protocol Last Titration: 07/12/17 11:10 Dose: 1,150 unit/hr, 23 mls/hr Insulin Aspart (Novolog Vial Sliding Scale -) 1 vial SQ ACHS JOVITA PRN Reason: Protocol Last Admin: 07/12/17 11:14 Dose: 2 units Levothyroxine Sodium (Synthroid -) 25 mcg PO AM JOVITA Last Admin: 07/11/17 06:27 Dose: 25 mcg Non-Formulary Medication (Tasigna) 300 mg PO BIDAC JOVITA Oxycodone HCl (Roxicodone -) 10 mg PO Q4H PRN Last Admin: 07/12/17 08:55 Dose: 10 mg Pantoprazole Sodium (Protonix -) 40 mg PO DAILY JOVITA Last Admin: 07/12/17 11:08 Dose: 40 mg Warfarin Sodium (Coumadin -) 7.5 mg PO ONCE@1800 ONE Stop: 07/12/17 18:01 - Objective Vital Signs: Vital Signs Temperature 98.3 F 07/12/17 02:00 Pulse Rate 82 07/12/17 09:40 Respiratory Rate 20 07/12/17 02:00 Blood Pressure 150/76 07/12/17 02:00 O2 Sat by Pulse Oximetry (%) 100 07/12/17 09:40 Constitutional: Yes: No Distress, Calm Cardiovascular: Yes: Regular Rate and Rhythm Respiratory: Yes: Regular, CTA Bilaterally Gastrointestinal: Yes: Normal Bowel Sounds, Soft Musculoskeletal: Yes: Other Extremities: Yes: Other Edema: LLE: Trace, RLE: Trace Integumentary: Yes: Rash Neurological: Yes: Alert, Oriented Psychiatric: Yes: Alert, Oriented Labs: CBC, BMP 07/12/17 05:35 07/12/17 05:35 INR, PTT INR 1.05 (0.82-1.09) 07/12/17 05:35 Assessment/Plan patient well known to me and who is very immunocompromised coming to the hospital because of shaking patient was found to ahve very low h and h Patient is a 66 year old female who was recently discharged on 07/03/17 for anemia secondary to CML on chemo and diffuse rash who returned today for chills and was found to have tachycardia and fever. Patient admitted for further monitoring and management this patient is very fragile and with cml. r/o uti Acute Kidney Injury Macular Papular Rash- Chronic and Improving HyperKalemia Anemia of Chronic Disease CML on chemotherapy Chronic Diastolic CHF- Controlled COPD-Controlled NIDDMII HLD HTN Hypothyroidism plan will stop abx and watch conitue monitoring rest as per primary team
--- NOTE | 2017-07-12 14:15 | EKG ---
Test Reason : Blood Pressure : / mmHG Vent. Rate : 140 BPM Atrial Rate : 091 BPM P-R Int : 000 ms QRS Dur : 076 ms QT Int : 284 ms P-R-T Axes : 000 048 081 degrees QTc Int : 433 ms ATRIAL FIBRILLATION WITH RAPID VENTRICULAR RESPONSE LOW VOLTAGE QRS IN LIMB LEADS SEPTAL INFARCT (CITED ON OR BEFORE 07-JUL-2017) ABNORMAL ECG WHEN COMPARED WITH ECG OF 07-JUL-2017 15:17, ATRIAL FIBRILLATION HAS REPLACED JUNCTIONAL RHYTHM VENT. RATE HAS INCREASED BY 48 BPM Confirmed by SHANE DALEY MD ([id number]) on 07/12/2017 2:14:48 PM Referred By: Confirmed By:SHANE DALEY MD
[2017-07-12] MEDS ORDERED: WARFARIN NA 7.5 MG TABLET (FP) PO ONE (18:00)
[2017-07-12] MEDS ORDERED: INSULIN (NOVOLOG) ASPART 100 UNITS/ML 10ML VIAL ONE (21:09)
[2017-07-12] MEDS: HEPARIN - 25,000 UNIT in SODIUM CHLORIDE 495 ML IV SCH (23:12)
[2017-07-13] MEDS: diphenhydrAMINE HCL 25 MG CAPSULE (FP) PO PRN ×2 (01:10→09:35)
[2017-07-13] MEDS: MEROPENEM 500 MG PUSH 10 ML IVPUSH SCH ×2 (02:39→10:20)
[2017-07-13] MEDS: ACETAMINOPHEN 325 MG TABLET (FP) PO PRN ×3 (05:20→23:54)
[2017-07-13] MEDS: oxyCODONE HCL 5 MG TABLET PO PRN ×4 (05:21→23:47)
[2017-07-13] MEDS: INSULIN SLIDING SCALE (NOVOLOG) 1 VIAL SQ SCH ×4 (06:19→23:47)
[2017-07-13 07:48] LABS: MCH 29.1 pg (25.7-33.7); MCHC 32.9 g/dl (32.0-36.0); MEAN CELL VOLUME 88.2 fl (80-96); MEAN PLT VOLUME 8.2 fl (7.5-11.1); PLATELET COUNT 153 K/MM3 (134-434); RDW 17.5 % (11.6-15.6); WHITE BLOOD COUNT 6.3 K/mm3 (4.0-10.0)
[2017-07-13 08:09] LABS: SERUM IRON 58 ug/dL (27-139); TOTAL IRON BINDING CAPACITY 168 ug/dL (250-450); UIBC 110 ug/dL (118-369)
[2017-07-13 08:13] LABS: INR 1.3 (0.82-1.09); PROTHROMBIN TIME (PATIENT) 14.7 SEC (9.98-11.88)
[2017-07-13 09:02] LABS: ALBUMIN 1.8 g/dl (3.4-5.0); ALK PHOS 129 U/L (45-117); ANION GAP 12 (8-16); BILIRUBIN,TOTAL 0.3 mg/dL (0.2-1.0); CALCIUM 7.3 mg/dL (8.5-10.1); CO2 18 mmol/L (21-32); CREATININE 2.2 mg/dL (0.55-1.02); GLUCOSE,RANDOM 111 mg/dL (74-106); MAGNESIUM 1.7 mg/dL (1.8-2.4); PHOSPHOROUS 5.7 mg/dL (2.5-4.9); SGOT/AST 8 U/L (15-37); SGPT/ALT 11 U/L (12-78); TOT PROT 6.1 g/dl (6.4-8.2)
[2017-07-13] MEDS: PANTOPRAZOLE 40 MG TABLET (FP) PO SCH (09:45)
[2017-07-13] MEDS: FERROUS SO4 325 MG TABLET (FP) PO SCH ×2 (09:45→23:47)
[2017-07-13] MEDS: ARFORMOTEROL TARTRATE 15 MCG/2 ML VIAL NEB SCH ×2 (10:20→21:45)
[2017-07-13] MEDS: TASIGNA 150 MG PO SCH ×2 (10:36→23:47)
--- NOTE | 2017-07-13 11:37 | PN ---
Progress Note (short form) - Note Progress Note: CC: afib S: no cp, palps, dizziness, sob. Current Medications Generic Name Dose Route Start Last Admin Trade Name Freq PRN Reason Stop Dose Admin Acetaminophen 650 mg 07/07/17 19:54 07/13/17 10:19 Tylenol - PO 650 mg Q6H PRN Administration PAIN Arformoterol Tartrate 1 amp 07/08/17 12:30 07/13/17 10:20 Brovana (Restricted To Pulmonology/Resp) - NEB 1 amp BID JOVITA Administration Diphenhydramine HCl 25 mg 07/12/17 11:06 07/13/17 09:35 Benadryl - PO 25 mg Q6H PRN Administration FOR ITCHING Ferrous Sulfate 325 mg 07/07/17 22:00 07/13/17 09:45 Feosol - PO 325 mg BID JOVITA Administration Heparin Sodium (Porcine) 5,000 unit 07/12/17 11:02 07/12/17 23:11 Heparin - IVPUSH 5,000 unit PRN PRN Administration Heparin Heparin Sodium (Porcine) 1,000 unit 07/12/17 11:02 Heparin - IVPUSH PRN PRN Heparin Meropenem 10 mls @ 120 mls/hr 07/08/17 12:30 07/13/17 10:20 Merrem (Restricted To Id) - IVPUSH Not Given Q8H-IV JOVITA Vancomycin HCl 1,000 mg/ 250 mls @ 166.667 mls/hr 07/10/17 11:00 07/12/17 11: 15 Dextrose IVPB Not Given Q48H [facility] Heparin Sodium (Porcine) 25, 500 mls @ 20 mls/hr 07/11/17 19:15 07/13/17 10: 20 000 unit/ Sodium Chloride IV 1,300 unit/hr TITR JOVITA 26 mls/hr Protocol Titration 1,000 UNIT/HR Insulin Aspart 1 vial 07/07/17 22:00 07/13/17 06:19 Novolog Vial Sliding Scale - SQ Not Given ACHS [facility] Protocol Levothyroxine Sodium 25 mcg 07/08/17 07:00 07/11/17 06:27 Synthroid - PO 25 mcg AM JOVITA Administration Patient's Own 300 mg 07/13/17 10:30 Medication (Non- PO Formulary) (Tasigna Q12H JOVITA 150mg) Oxycodone HCl 10 mg 07/07/17 20:00 07/13/17 09:30 Roxicodone - PO 10 mg Q4H PRN Administration Pantoprazole Sodium 40 mg 07/12/17 10:45 07/13/17 09:45 Protonix - PO 40 mg DAILY JOVITA Administration Warfarin Sodium 10 mg 07/13/17 18:00 Coumadin - PO 07/13/17 18:01 ONCE@1800 ONE Vital Signs Period Temp Pulse Resp BP Sys/Machado Pulse Ox Last 24 Hr 98 F-98.7 F 84-96 18-20 107-145/59-76 94-95 nad, no jvd rrr s1s2 no mrg cta b/l, nleff abd nd nt, obese. pos bs pos dp/pt + erythematous rash with skin sloughing trace -1+ dependent edema no c/c no diaphoresis no jaundice aaox3 CBC, BMP 07/12/17 05:35 07/12/17 05:35 echo 04/2017: tds. nl lv/rv. 1+ lae. mod mac mild-mod tr rvsp 45. tele: afib, rate controlled A/P 66 yo f with hx htn, dm, hld, hypothyroid, obesity, possible copd, CML/anemia, p /w chills found to have uti/sepsis/asa. hospital course complicated by new afib with rvr. new afib - hgb is stable vs prior baseline. was 6's on admit, currently around 8. - this would provide little reserve if she develops bleeding on AC agent; - CHADS VASC = 3, hence not very high cva risk (3%/year) and with short period in afib. Discussed risk/benefit (see prior notes) with heme --> cleared for trial of AC. given BMI and renal function will initiate heparin bridge to coumadin. montioring of hgb while on heparin bridge. - currently rate controlled/SR off av kia blockade - recent echo wnl ASA: - ? etiology - renal following, JANE held diastolic chf: - getting IVF here for asa. appeared dry/euvolemic --> now with some mild worsened edema. ? third spacing from low albumin? hold ivfs venous ins/lymphedema: -chronic swelling --> as above anemia: -baseline values in past here run hgb 6s-9s. requires transfusions periodically -stable here--per heme - not thought to be from bleeding. work up ongoing. monitor with initation of AC. htn: -holding JANE (for ASA) -bp controlled hld: - Given diabetes, consider statin therapy--defer to outpt setting in light of mult acute med issues cardiac mckeon remains stable
--- NOTE | 2017-07-13 13:28 | PN ---
Progress Note (short form) - Note Progress Note: c/o diffuse pruritis. states she was refusing IV abx as she thought that the rash was from that. refusing to take steroids as they make her crazy. no similiar episodes in the past. denies Cp, SOB, fever, chills, N/v/C/d Current Medications Generic Name Dose Route Start Last Admin Trade Name Freq PRN Reason Stop Dose Admin Acetaminophen 650 mg 07/07/17 19:54 07/13/17 10:19 Tylenol - PO 650 mg Q6H PRN Administration PAIN Arformoterol Tartrate 1 amp 07/08/17 12:30 07/13/17 10:20 Brovana (Restricted To Pulmonology/Resp) - NEB 1 amp BID JOVITA Administration Diphenhydramine HCl 25 mg 07/12/17 11:06 07/13/17 09:35 Benadryl - PO 25 mg Q6H PRN Administration FOR ITCHING Ferrous Sulfate 325 mg 07/07/17 22:00 07/13/17 09:45 Feosol - PO 325 mg BID JOVITA Administration Heparin Sodium (Porcine) 5,000 unit 07/12/17 11:02 07/12/17 23:11 Heparin - IVPUSH 5,000 unit PRN PRN Administration Heparin Heparin Sodium (Porcine) 1,000 unit 07/12/17 11:02 Heparin - IVPUSH PRN PRN Heparin Meropenem 10 mls @ 120 mls/hr 07/08/17 12:30 07/13/17 10:20 Merrem (Restricted To Id) - IVPUSH Not Given Q8H-IV JOVITA Vancomycin HCl 1,000 mg/ 250 mls @ 166.667 mls/hr 07/10/17 11:00 07/12/17 11: 15 Dextrose IVPB Not Given Q48H JOVITA Heparin Sodium (Porcine) 25, 500 mls @ 20 mls/hr 07/11/17 19:15 07/13/17 10: 20 000 unit/ Sodium Chloride IV 1,300 unit/hr TITR JOVITA 26 mls/hr Protocol Titration 1,000 UNIT/HR Insulin Aspart 1 vial 07/07/17 22:00 07/13/17 12:37 Novolog Vial Sliding Scale - SQ 2 units ACHS JOVITA Administration Protocol Levothyroxine Sodium 25 mcg 07/08/17 07:00 07/11/17 06:27 Synthroid - PO 25 mcg AM JOVITA Administration Patient's Own 300 mg 07/13/17 10:30 07/13/17 10:36 Medication (Non- PO 300 mg Formulary) (Tasigna Q12H JOVITA Administration 150mg) Oxycodone HCl 10 mg 07/07/17 20:00 07/13/17 09:30 Roxicodone - PO 10 mg Q4H PRN Administration Pantoprazole Sodium 40 mg 07/12/17 10:45 07/13/17 09:45 Protonix - PO 40 mg DAILY JOVITA Administration Warfarin Sodium 10 mg 07/13/17 18:00 Coumadin - PO 07/13/17 18:01 ONCE@1800 ONE Last Vital Signs Temp Pulse Resp BP Pulse Ox 98.0 F 88 20 121/76 95 07/13/17 10:00 07/13/17 10:00 07/13/17 10:00 07/13/17 10:00 07/13/17 09:00 General NAD CV S1 s2 RRR no murmur/rub/gallop lungs CTA B/L anteriorly Abdomen soft NT/Nd Extremities B/L non pitting edema B/L UE skin diffuse erythema on face, chest and arms. with desquamation and excoriations. CBCD WBC 6.3 K/mm3 (4.0-10.0) 07/13/17 06:45 RBC 2.89 M/mm3 (3.60-5.2) L 07/13/17 06:45 Hgb 8.4 GM/dL (10.7-15.3) L 07/13/17 06:45 Hct 25.5 % (32.4-45.2) L 07/13/17 06:45 MCV 88.2 fl (80-96) 07/13/17 06:45 MCHC 32.9 g/dl (32.0-36.0) 07/13/17 06:45 RDW 17.5 % (11.6-15.6) H 07/13/17 06:45 Plt Count 153 K/MM3 (134-434) 07/13/17 06:45 MPV 8.2 fl (7.5-11.1) 07/13/17 06:45 CMP Sodium 137 mmol/L (136-145) 07/13/17 06:45 Potassium 4.5 mmol/L (3.5-5.1) 07/13/17 06:45 Chloride 107 mmol/L (98-107) 07/13/17 06:45 Carbon Dioxide 18 mmol/L (21-32) L 07/13/17 06:45 Anion Gap 12 (8-16) 07/13/17 06:45 BUN 61 mg/dL (7-18) H 07/13/17 06:45 Creatinine 2.2 mg/dL (0.55-1.02) H 07/13/17 06:45 Creat Clearance w eGFR 22.20 (>60) 07/13/17 06:45 Calcium 7.3 mg/dL (8.5-10.1) L 07/13/17 06:45 Total Bilirubin 0.3 mg/dL (0.2-1.0) 07/13/17 06:45 AST 8 U/L (15-37) L 07/13/17 06:45 ALT 11 U/L (12-78) L 07/13/17 06:45 Alkaline Phosphatase 129 U/L (45-117) H 07/13/17 06:45 Total Protein 6.1 g/dl (6.4-8.2) L 07/13/17 06:45 Albumin 1.8 g/dl (3.4-5.0) L 07/13/17 06:45 A/P 66yo F wtih PMH CHF, CML, DM and hypothyroid presented to the ER with subjective fever and chills and found to be septic due to UTI 1. Sepsis due to ecoli UTI- afebrile. leukocytosis resolved. refusing IV abx as she is tired. has refused IV abx for 48H. now agreeable to taking abx however has no IV site. awaiting recommendations if can convert to oral abx or completed therapy. was on Vanco/meropenem for 5 days. 2. new onset Afib with RVR- NSR now. on hep- coumadin bridge. INR remains subtherapeutic. will increase coumadin to 10mg today. trend INR. cardio on board 3. ASA- due to sepsis. improved. IVF stopped. cont to monitor off diuretics. nephrology on board 4. Drug induced eosinophilic rash- eosinophilia persists at 15%. rash has no improvment per pt. will give hydroxyzine round the clock. bendryl prn. will consult dermatology 5. iron def anemia- no signs of bleeding. cont iron supplementation. Monitoir Hgb while on heparin ggt 6. DM- controlled. cont current management 7. hypothyroid- on LT4 8. hypomagnesemia- Mg 800mg 9. DVT ppx- hep-coumadin bridge Visit type - Emergency Visit Emergency Visit: Yes ED Registration Date: 07/07/17 Care time: The patient presented to the Emergency Department on the above date and was hospitalized for further evaluation of their emergent condition. - New Patient This patient is new to me today: Yes Date on this admission: 07/13/17 - Critical Care Critical Care patient: No - Discharge Referral Referred to [facility] Med P.C.: No
[2017-07-13] MEDS ORDERED: MAGNESIUM OXIDE 400 MG TABLET (FP) PO ONE (14:15)
[2017-07-13] MEDS: hydrOXYzine HCL 10 MG TABLET PO SCH ×3 (15:09→23:47)
--- NOTE | 2017-07-13 16:13 | PN ---
Progress Note, Physician History of Present Illness: Pt seen and examined at bedside. She is awake and alert. She denies shortness of breath. - Current Medication List Current Medications: Active Medications Acetaminophen (Tylenol -) 650 mg PO Q6H PRN PRN Reason: PAIN Last Admin: 07/13/17 10:19 Dose: 650 mg Arformoterol Tartrate (Brovana (Restricted To Pulmonology/Resp) -) 1 amp NEB BID JOVITA Last Admin: 07/13/17 10:20 Dose: 1 amp Diphenhydramine HCl (Benadryl -) 25 mg PO Q6H PRN PRN Reason: FOR ITCHING Last Admin: 07/13/17 09:35 Dose: 25 mg Ferrous Sulfate (Feosol -) 325 mg PO BID JOVITA Last Admin: 07/13/17 09:45 Dose: 325 mg Heparin Sodium (Porcine) (Heparin -) 5,000 unit IVPUSH PRN PRN PRN Reason: Heparin Last Admin: 07/12/17 23:11 Dose: 5,000 unit Heparin Sodium (Porcine) (Heparin -) 1,000 unit IVPUSH PRN PRN PRN Reason: Heparin Hydroxyzine HCl (Atarax -) 10 mg PO Q6HPO JOVITA Last Admin: 07/13/17 15:09 Dose: 10 mg Meropenem (Merrem (Restricted To Id) -) 10 mls @ 120 mls/hr IVPUSH Q8H-IV JOVITA Last Admin: 07/13/17 10:20 Dose: Not Given Vancomycin HCl 1,000 mg/ (Dextrose) 250 mls @ 166.667 mls/hr IVPB Q48H JOVITA Last Admin: 07/12/17 11:15 Dose: Not Given Heparin Sodium (Porcine) 25, (000 unit/ Sodium Chloride) 500 mls @ 20 mls/hr IV TITR JOVITA; 1,000 UNIT/HR PRN Reason: Protocol Last Titration: 07/13/17 10:20 Dose: 1,300 unit/hr, 26 mls/hr Insulin Aspart (Novolog Vial Sliding Scale -) 1 vial SQ ACHS JOVITA PRN Reason: Protocol Last Admin: 07/13/17 12:37 Dose: 2 units Levothyroxine Sodium (Synthroid -) 25 mcg PO AM JOVITA Last Admin: 07/11/17 06:27 Dose: 25 mcg Patient's Own Medication (Non- Formulary) (Tasigna 150mg) 300 mg PO Q12H JOVITA Last Admin: 07/13/17 10:36 Dose: 300 mg Oxycodone HCl (Roxicodone -) 10 mg PO Q4H PRN Last Admin: 07/13/17 15:09 Dose: 10 mg Pantoprazole Sodium (Protonix -) 40 mg PO DAILY JOVITA Last Admin: 07/13/17 09:45 Dose: 40 mg Warfarin Sodium (Coumadin -) 10 mg PO ONCE@1800 ONE Stop: 07/13/17 18:01 - Objective Vital Signs: Vital Signs Temperature 98.0 F 07/13/17 14:55 Pulse Rate 80 07/13/17 14:55 Respiratory Rate 18 07/13/17 14:55 Blood Pressure 124/63 07/13/17 14:55 O2 Sat by Pulse Oximetry (%) 95 07/13/17 09:00 Constitutional: Yes: Calm Eyes: Yes: Conjunctiva Clear HENT: Yes: Atraumatic Neck: Yes: Supple Cardiovascular: Yes: S1, S2 Respiratory: Yes: CTA Bilaterally, On Nasal O2 Gastrointestinal: Yes: Normal Bowel Sounds, Soft, Abdomen, Obese Genitourinary: Yes: Hill Present Musculoskeletal: Yes: WNL Edema: Yes Edema: LLE: 2+, RLE: 2+ Neurological: Yes: Oriented Psychiatric: Yes: Oriented Labs: CBC, BMP 07/13/17 06:45 07/13/17 06:45 INR, PTT INR 1.30 (0.82-1.09) H 07/13/17 06:45 - ....Imaging Chest X-ray: Report Reviewed Problem List - Problems (1) Diabetes Code(s): E11.9 - TYPE 2 DIABETES MELLITUS WITHOUT COMPLICATIONS (2) CML (chronic myelocytic leukemia) Code(s): C92.10 - CHRONIC MYELOID LEUK, BCR/ABL-POSITIVE, NOT ACHIEVE REMIS (3) Anemia Code(s): D64.9 - ANEMIA, UNSPECIFIED Qualifiers: Anemia type: other cause Other causes of anemia: acute posthemorrhagic Qualified Code(s): D62 - Acute posthemorrhagic anemia (4) Cellulitis of leg, left Code(s): L03.116 - CELLULITIS OF LEFT LOWER LIMB (5) CHF (congestive heart failure) Code(s): I50.9 - HEART FAILURE, UNSPECIFIED Qualifiers: Congestive heart failure type: diastolic Congestive heart failure chronicity: chronic Qualified Code(s): I50.32 - Chronic diastolic (congestive ) heart failure (6) Acute renal insufficiency Code(s): N28.9 - DISORDER OF KIDNEY AND URETER, UNSPECIFIED (7) Hyperkalemia Code(s): E87.5 - HYPERKALEMIA (8) MARIA ELENA positive Code(s): R76.8 - OTHER SPECIFIED ABNORMAL IMMUNOLOGICAL FINDINGS IN SERUM (9) ASA (acute kidney injury) Code(s): N17.9 - ACUTE KIDNEY FAILURE, UNSPECIFIED Assessment/Plan Current Medications Generic Name Dose Route Start Last Admin Trade Name Freq PRN Reason Stop Dose Admin Acetaminophen 650 mg 07/07/17 19:54 07/13/17 10:19 Tylenol - PO 650 mg Q6H PRN Administration PAIN Arformoterol Tartrate 1 amp 07/08/17 12:30 07/13/17 10:20 Brovana (Restricted To Pulmonology/Resp) - NEB 1 amp BID JOVITA Administration Diphenhydramine HCl 25 mg 07/12/17 11:06 07/13/17 09:35 Benadryl - PO 25 mg Q6H PRN Administration FOR ITCHING Ferrous Sulfate 325 mg 07/07/17 22:00 07/13/17 09:45 Feosol - PO 325 mg BID JOVITA Administration Heparin Sodium (Porcine) 5,000 unit 07/12/17 11:02 07/12/17 23:11 Heparin - IVPUSH 5,000 unit PRN PRN Administration Heparin Heparin Sodium (Porcine) 1,000 unit 07/12/17 11:02 Heparin - IVPUSH PRN PRN Heparin Hydroxyzine HCl 10 mg 07/13/17 14:15 07/13/17 15:09 Atarax - PO 10 mg Q6HPO JOVITA Administration Meropenem 10 mls @ 120 mls/hr 07/08/17 12:30 07/13/17 10:20 Merrem (Restricted To Id) - IVPUSH Not Given Q8H-IV JOVITA Vancomycin HCl 1,000 mg/ 250 mls @ 166.667 mls/hr 07/10/17 11:00 07/12/17 11: 15 Dextrose IVPB Not Given Q48H JOVITA Heparin Sodium (Porcine) 25, 500 mls @ 20 mls/hr 07/11/17 19:15 07/13/17 10: 20 000 unit/ Sodium Chloride IV 1,300 unit/hr TITR JOVITA 26 mls/hr Protocol Titration 1,000 UNIT/HR Insulin Aspart 1 vial 07/07/17 22:00 07/13/17 12:37 Novolog Vial Sliding Scale - SQ 2 units ACHS JOVITA Administration Protocol Levothyroxine Sodium 25 mcg 07/08/17 07:00 07/11/17 06:27 Synthroid - PO 25 mcg AM JOVITA Administration Patient's Own 300 mg 07/13/17 10:30 07/13/17 10:36 Medication (Non- PO 300 mg Formulary) (Tasigna Q12H JOVITA Administration 150mg) Oxycodone HCl 10 mg 07/07/17 20:00 07/13/17 15:09 Roxicodone - PO 10 mg Q4H PRN Administration Pantoprazole Sodium 40 mg 07/12/17 10:45 07/13/17 09:45 Protonix - PO 40 mg DAILY JOVITA Administration Warfarin Sodium 10 mg 07/13/17 18:00 Coumadin - PO 07/13/17 18:01 ONCE@1800 ONE Impression 1. ASA 2. anemia 3. rash 4. CML 5. hypothyroidism 6. HTN 7. chol 8. CHF 9. COPD 10. hyperkalemia 11. sepsis 12. new onset a-fib Plan - renal function continues to improve - consider derm eval - follow urine studies - jarek on hold - diuretics on hold - fluids stopped, will monitor off of fluids - repeat ua neg for blood or protein - likely asa from atn - will follow closely Dr Sanchez
--- NOTE | 2017-07-13 17:07 | PN ---
Progress Note (short form) - Note Progress Note: PAtient seen and examined Denies any complaints AFVSS Cor: RSR, No murmurs, No gallops Lungs: Clear to P&A Abd: Soft, Normal bowel sounds, No organomegaly Ext:chronic edema skin: extensive erythematous rash/itching Abnormal Lab Results 07/12/17 07/13/17 07/13/17 05:35 06:45 06:45 RBC 2.89 L Hgb 8.4 L Hct 25.5 L RDW 17.5 H PT with INR INR PTT (Actin FS) 56.9 H D Carbon Dioxide BUN Creatinine Random Glucose Calcium Phosphorus Magnesium TIBC 168 L AST ALT Alkaline Phosphatase Total Protein Albumin 07/13/17 07/13/17 06:45 06:45 RBC Hgb Hct RDW PT with INR 14.70 H INR 1.30 H PTT (Actin FS) Carbon Dioxide 18 L BUN 61 H Creatinine 2.2 H Random Glucose 111 H Calcium 7.3 L Phosphorus 5.7 H Magnesium 1.7 L TIBC AST 8 L ALT 11 L Alkaline Phosphatase 129 H Total Protein 6.1 L Albumin 1.8 L Active Medications Generic Name Dose Route Start Last Admin Trade Name Freq PRN Reason Stop Dose Admin Acetaminophen 650 mg 07/07/17 19:54 07/13/17 10:19 Tylenol - PO 650 mg Q6H PRN Administration PAIN Arformoterol Tartrate 1 amp 07/08/17 12:30 07/13/17 10:20 Brovana (Restricted To Pulmonology/Resp) - NEB 1 amp BID JOVITA Administration Diphenhydramine HCl 25 mg 07/12/17 11:06 07/13/17 09:35 Benadryl - PO 25 mg Q6H PRN Administration FOR ITCHING Ferrous Sulfate 325 mg 07/07/17 22:00 07/13/17 09:45 Feosol - PO 325 mg BID JOVITA Administration Heparin Sodium (Porcine) 5,000 unit 07/12/17 11:02 07/12/17 23:11 Heparin - IVPUSH 5,000 unit PRN PRN Administration Heparin Heparin Sodium (Porcine) 1,000 unit 07/12/17 11:02 Heparin - IVPUSH PRN PRN Heparin Hydroxyzine HCl 10 mg 07/13/17 14:15 07/13/17 15:09 Atarax - PO 10 mg Q6HPO JOVITA Administration Vancomycin HCl 1,000 mg/ 250 mls @ 166.667 mls/hr 07/10/17 11:00 07/12/17 11: 15 Dextrose IVPB Not Given Q48H JOVITA Heparin Sodium (Porcine) 25, 500 mls @ 20 mls/hr 07/11/17 19:15 07/13/17 10: 20 000 unit/ Sodium Chloride IV 1,300 unit/hr TITR JOVITA 26 mls/hr Protocol Titration 1,000 UNIT/HR Insulin Aspart 1 vial 07/07/17 22:00 07/13/17 12:37 Novolog Vial Sliding Scale - SQ 2 units ACHS JOVITA Administration Protocol Levothyroxine Sodium 25 mcg 07/08/17 07:00 07/11/17 06:27 Synthroid - PO 25 mcg AM JOVITA Administration Patient's Own 300 mg 07/13/17 10:30 07/13/17 10:36 Medication (Non- PO 300 mg Formulary) (Tasigna Q12H JOVITA Administration 150mg) Oxycodone HCl 10 mg 07/07/17 20:00 07/13/17 15:09 Roxicodone - PO 10 mg Q4H PRN Administration Pantoprazole Sodium 40 mg 07/12/17 10:45 07/13/17 09:45 Protonix - PO 40 mg DAILY JOVITA Administration Warfarin Sodium 10 mg 07/13/17 18:00 Coumadin - PO 07/13/17 18:01 ONCE@1800 ONE A/P CML restarted tasigna/nilotinib Has beenin molecular remission as on 05/09/17 New afib -will be on systemic ac. due to her BMI/Cr, couamdin bridge with UFH , is the choice allergic reaction --will need derm f/u steroid creams /? PO prednisone will discuss with primary team
--- NOTE | 2017-07-13 17:08 | PN ---
Progress Note, Physician History of Present Illness: says she is very aggravated itching all over the body rash bothering her - Current Medication List Current Medications: Active Medications Acetaminophen (Tylenol -) 650 mg PO Q6H PRN PRN Reason: PAIN Last Admin: 07/13/17 10:19 Dose: 650 mg Arformoterol Tartrate (Brovana (Restricted To Pulmonology/Resp) -) 1 amp NEB BID [facility] Last Admin: 07/13/17 10:20 Dose: 1 amp Diphenhydramine HCl (Benadryl -) 25 mg PO Q6H PRN PRN Reason: FOR ITCHING Last Admin: 07/13/17 09:35 Dose: 25 mg Ferrous Sulfate (Feosol -) 325 mg PO BID [facility] Last Admin: 07/13/17 09:45 Dose: 325 mg Heparin Sodium (Porcine) (Heparin -) 5,000 unit IVPUSH PRN PRN PRN Reason: Heparin Last Admin: 07/12/17 23:11 Dose: 5,000 unit Heparin Sodium (Porcine) (Heparin -) 1,000 unit IVPUSH PRN PRN PRN Reason: Heparin Hydroxyzine HCl (Atarax -) 10 mg PO Q6HPO [facility] Last Admin: 07/13/17 15:09 Dose: 10 mg Vancomycin HCl 1,000 mg/ (Dextrose) 250 mls @ 166.667 mls/hr IVPB Q48H [facility] Last Admin: 07/12/17 11:15 Dose: Not Given Heparin Sodium (Porcine) 25, (000 unit/ Sodium Chloride) 500 mls @ 20 mls/hr IV TITR JOVITA; 1,000 UNIT/HR PRN Reason: Protocol Last Titration: 07/13/17 10:20 Dose: 1,300 unit/hr, 26 mls/hr Insulin Aspart (Novolog Vial Sliding Scale -) 1 vial SQ ACHS JOVITA PRN Reason: Protocol Last Admin: 07/13/17 12:37 Dose: 2 units Levothyroxine Sodium (Synthroid -) 25 mcg PO AM [facility] Last Admin: 07/11/17 06:27 Dose: 25 mcg Patient's Own Medication (Non- Formulary) (Tasigna 150mg) 300 mg PO Q12H [facility] Last Admin: 07/13/17 10:36 Dose: 300 mg Oxycodone HCl (Roxicodone -) 10 mg PO Q4H PRN Last Admin: 07/13/17 15:09 Dose: 10 mg Pantoprazole Sodium (Protonix -) 40 mg PO DAILY JOVITA Last Admin: 07/13/17 09:45 Dose: 40 mg Warfarin Sodium (Coumadin -) 10 mg PO ONCE@1800 ONE Stop: 07/13/17 18:01 - Objective Vital Signs: Vital Signs Temperature 98.0 F 07/13/17 14:55 Pulse Rate 80 07/13/17 14:55 Respiratory Rate 18 07/13/17 14:55 Blood Pressure 124/63 07/13/17 14:55 O2 Sat by Pulse Oximetry (%) 95 07/13/17 09:00 Constitutional: Yes: Calm, Mild Distress, Obese Neck: Yes: Supple Cardiovascular: Yes: Regular Rate and Rhythm Gastrointestinal: Yes: Normal Bowel Sounds, Soft Musculoskeletal: Yes: Other Extremities: Yes: Other Integumentary: Yes: Rash Neurological: Yes: Alert, Oriented Psychiatric: Yes: Alert, Oriented Labs: CBC, BMP 07/13/17 06:45 07/13/17 06:45 INR, PTT INR 1.30 (0.82-1.09) H 07/13/17 06:45 Assessment/Plan r/o uti Acute Kidney Injury Macular Papular Rash- Chronic and Improving HyperKalemia Anemia of Chronic Disease CML on chemotherapy Chronic Diastolic CHF- Controlled COPD-Controlled NIDDMII HLD HTN Hypothyroidism plan continue monitoring consider hydrocortisone cream rest as per the [facility] onco on board
[2017-07-13] MEDS ORDERED: WARFARIN NA 10 MG TABLET (FP) PO ONE (18:00)
[2017-07-13] MEDS: HEPARIN - 25,000 UNIT in SODIUM CHLORIDE 495 ML IV SCH (23:47)
[2017-07-14] MEDS ORDERED: PT OWN MED DRAWER 7, Y5N ONE (05:26)
[2017-07-14] MEDS: oxyCODONE HCL 5 MG TABLET PO PRN ×4 (05:34→21:09)
[2017-07-14] MEDS: hydrOXYzine HCL 10 MG TABLET PO SCH ×3 (05:34→17:15)
[2017-07-14] MEDS: ACETAMINOPHEN 325 MG TABLET (FP) PO PRN ×3 (05:39→21:09)
[2017-07-14] MEDS: INSULIN SLIDING SCALE (NOVOLOG) 1 VIAL SQ SCH ×4 (05:59→21:09)
[2017-07-14] MEDS: LEVOTHYROXINE NA 25 MCG TABLET (FP) PO SCH (06:09)
[2017-07-14 06:57] LABS: BASOPHIL 0.6 % (0-2.0); EOSINOPHIL 20.1 % (0-4.5); MCHC 33.2 g/dl (32.0-36.0); MEAN CELL VOLUME 87.4 fl (80-96); MEAN PLT VOLUME 7.9 fl (7.5-11.1); NEUTROPHILS 51.6 % (42.8-82.8); PLATELET COUNT 148 K/MM3 (134-434); RDW 17.7 % (11.6-15.6); WHITE BLOOD COUNT 6.2 K/mm3 (4.0-10.0)
[2017-07-14 08:11] LABS: ANION GAP 10 (8-16); CALCIUM 7.3 mg/dL (8.5-10.1); CO2 18 mmol/L (21-32); GLUCOSE,RANDOM 129 mg/dL (74-106); MAGNESIUM 1.9 mg/dL (1.8-2.4)
[2017-07-14] MEDS: FERROUS SO4 325 MG TABLET (FP) PO SCH ×2 (09:18→21:08)
[2017-07-14] MEDS: PANTOPRAZOLE 40 MG TABLET (FP) PO SCH (09:19)
[2017-07-14] MEDS: ARFORMOTEROL TARTRATE 15 MCG/2 ML VIAL NEB SCH ×2 (10:00→21:30)
--- NOTE | 2017-07-14 10:37 | PN ---
Physical Exam: Medicine coverage for Dr. Garcia SUBJECTIVE: Patient seen and examined. She states her legs dont hurt, its her body and low back, she was just given pain medication, does not want to be moved OBJECTIVE: Vital Signs Period Temp Pulse Resp BP Sys/Machado Pulse Ox Last 24 Hr 97.6 F-98.4 F 80-93 18-20 94-124/44-63 96-99 PE Neuro: alert, awake, cn 2-12intact Pulm: CTA anteriorly CV: s1 s2 rrr no mrg Abd: s nt nd +bs : + chambers Ext: b/l non pitting edema, R ankle dressing skin: diffuse erythema to face, arms, chest, hands, dry, desquamation to arms + tenderness Laboratory Results - last 24 hr 07/14/17 07/14/17 07/14/17 05:10 05:10 05:10 WBC 6.2 RBC 2.73 L Hgb 7.9 L Hct 23.9 L MCV 87.4 MCH 29.0 MCHC 33.2 RDW 17.7 H Plt Count 148 MPV 7.9 Neutrophils % 51.6 Lymphocytes % 17.9 Monocytes % 9.8 Eosinophils % 20.1 H* Basophils % 0.6 PTT (Actin FS) 49.8 H Sodium 139 Potassium 4.4 Chloride 111 H Carbon Dioxide 18 L Anion Gap 10 BUN 57 H Creatinine 2.0 H Creat Clearance w eGFR POC Glucometer Random Glucose 129 H Calcium 7.3 L Phosphorus Magnesium 1.9 Total Bilirubin AST ALT Alkaline Phosphatase Total Protein Albumin Urine Eosinophils MARIA ELENA Screen MARIA ELENA Homogeneous Pattern MARIA ELENA Nucleolar Pattern MARIA ELENA Midbody Pattern MARIA ELENA Speckled Pattern MARIA ELENA Centromere Pattern Active Medications Generic Name Dose Route Start Last Admin Trade Name Freq PRN Reason Stop Dose Admin Acetaminophen 650 mg 07/07/17 19:54 07/14/17 05:39 Tylenol - PO 650 mg Q6H PRN Administration PAIN Arformoterol Tartrate 1 amp 07/08/17 12:30 07/14/17 10:00 Brovana (Restricted To Pulmonology/Resp) - NEB 1 amp BID JOVITA Administration Diphenhydramine HCl 25 mg 07/12/17 11:06 07/13/17 09:35 Benadryl - PO 25 mg Q6H PRN Administration FOR ITCHING Ferrous Sulfate 325 mg 07/07/17 22:00 07/14/17 09:18 Feosol - PO 325 mg BID JOVITA Administration Heparin Sodium (Porcine) 5,000 unit 07/12/17 11:02 07/12/17 23:11 Heparin - IVPUSH 5,000 unit PRN PRN Administration Heparin Heparin Sodium (Porcine) 1,000 unit 07/12/17 11:02 Heparin - IVPUSH PRN PRN Heparin Hydroxyzine HCl 10 mg 07/13/17 14:15 07/14/17 05:34 Atarax - PO 10 mg Q6HPO JOVITA Administration Vancomycin HCl 1,000 mg/ 250 mls @ 166.667 mls/hr 07/10/17 11:00 07/12/17 11: 15 Dextrose IVPB Not Given Q48H JOVITA Heparin Sodium (Porcine) 25, 500 mls @ 20 mls/hr 07/11/17 19:15 07/13/17 23: 47 000 unit/ Sodium Chloride IV 1,300 unit/hr TITR JOVITA 26 mls/hr Protocol Administration 1,000 UNIT/HR Insulin Aspart 1 vial 07/07/17 22:00 07/14/17 05:59 Novolog Vial Sliding Scale - SQ Not Given ACHS [facility] Protocol Levothyroxine Sodium 25 mcg 07/08/17 07:00 07/14/17 06:09 Synthroid - PO 25 mcg AM JOVITA Administration Patient's Own 300 mg 07/13/17 10:30 07/13/17 23:47 Medication (Non- PO 300 mg Formulary) (Tasigna Q12H JOVITA Administration 150mg) Oxycodone HCl 10 mg 07/07/17 20:00 07/14/17 09:19 Roxicodone - PO 10 mg Q4H PRN Administration Pantoprazole Sodium 40 mg 07/12/17 10:45 07/14/17 09:19 Protonix - PO 40 mg DAILY JOVITA Administration Assessment: 66 year old female with PMH CHF, CML, DM and hypothyroid admitted with septic due to UTI Plan: 1. Sepsis due to ecoli UTI - Pt refusing abx for 72hrs - s/p sina/vanco 5 days - PO abx recs per ID 2. New onset a fib - Heparin gtt with coumadin bridge - INR pending - Coumadin 7.5mg x1 HS 3. ASA -Likely d/t ATN - Hold diuretics, JANE, fluids - Renal following 4. Drug induced eosinophilic rash - CBC ordered, follow eosinophil - Continue hydroxyzine round the clock. - Bendryl prn - Dermatology consult 5. Iron def anemia - Ferrous sulfate - Monitor hgb, on heparin gtt 6. DM II - AM glucose controlle - Monitor, off coverage 7. CML - On tasignal/nilotinib - Molecular remission since 05/2017 - Heme/onc seeing 8. Hypohyroid - Synthroid 75mcg 9. DVT ppx - On AC Visit type - Emergency Visit Emergency Visit: Yes ED Registration Date: 07/07/17 Care time: The patient presented to the Emergency Department on the above date and was hospitalized for further evaluation of their emergent condition. - New Patient This patient is new to me today: Yes Date on this admission: 07/14/17 - Critical Care Critical Care patient: No
--- NOTE | 2017-07-14 10:45 | PN ---
Progress Note (short form) - Note Progress Note: CC: afib S: no cp, palps, dizziness, sob. Current Medications Generic Name Dose Route Start Last Admin Trade Name Freq PRN Reason Stop Dose Admin Acetaminophen 650 mg 07/07/17 19:54 07/14/17 05:39 Tylenol - PO 650 mg Q6H PRN Administration PAIN Arformoterol Tartrate 1 amp 07/08/17 12:30 07/14/17 10:00 Brovana (Restricted To Pulmonology/Resp) - NEB 1 amp BID JOVITA Administration Diphenhydramine HCl 25 mg 07/12/17 11:06 07/13/17 09:35 Benadryl - PO 25 mg Q6H PRN Administration FOR ITCHING Ferrous Sulfate 325 mg 07/07/17 22:00 07/14/17 09:18 Feosol - PO 325 mg BID JOVITA Administration Heparin Sodium (Porcine) 5,000 unit 07/12/17 11:02 07/12/17 23:11 Heparin - IVPUSH 5,000 unit PRN PRN Administration Heparin Heparin Sodium (Porcine) 1,000 unit 07/12/17 11:02 Heparin - IVPUSH PRN PRN Heparin Hydroxyzine HCl 10 mg 07/13/17 14:15 07/14/17 05:34 Atarax - PO 10 mg Q6HPO JOVITA Administration Vancomycin HCl 1,000 mg/ 250 mls @ 166.667 mls/hr 07/10/17 11:00 07/12/17 11: 15 Dextrose IVPB Not Given Q48H JOVITA Heparin Sodium (Porcine) 25, 500 mls @ 20 mls/hr 07/11/17 19:15 07/13/17 23: 47 000 unit/ Sodium Chloride IV 1,300 unit/hr TITR JOVITA 26 mls/hr Protocol Administration 1,000 UNIT/HR Insulin Aspart 1 vial 07/07/17 22:00 07/14/17 05:59 Novolog Vial Sliding Scale - SQ Not Given ACHS [facility] Protocol Levothyroxine Sodium 25 mcg 07/08/17 07:00 07/14/17 06:09 Synthroid - PO 25 mcg AM JOVITA Administration Patient's Own 300 mg 07/13/17 10:30 07/13/17 23:47 Medication (Non- PO 300 mg Formulary) (Tasigna Q12H JOVITA Administration 150mg) Oxycodone HCl 10 mg 07/07/17 20:00 07/14/17 09:19 Roxicodone - PO 10 mg Q4H PRN Administration Pantoprazole Sodium 40 mg 07/12/17 10:45 07/14/17 09:19 Protonix - PO 40 mg DAILY JOVITA Administration Vital Signs Period Temp Pulse Resp BP Sys/Machado Pulse Ox Last 24 Hr 97.6 F-98.4 F 80-93 18-20 94-124/44-63 96-99 nad, no jvd rrr s1s2 no mrg cta b/l, nleff abd nd nt, obese. pos bs pos dp/pt + erythematous rash with skin sloughing trace -1+ dependent edema no c/c no diaphoresis no jaundice aaox3 CBC, BMP 07/14/17 05:10 07/14/17 05:10 echo 04/2017: tds. nl lv/rv. 1+ lae. mod mac mild-mod tr rvsp 45. tele: afib, rate controlled A/P 66 yo f with hx htn, dm, hld, hypothyroid, obesity, possible copd, CML/anemia, p /w chills found to have uti/sepsis/asa. hospital course complicated by new afib with rvr. new afib - hgb is stable vs prior baseline. was 6's on admit, currently around 8. - this would provide little reserve if she develops bleeding on AC agent; - CHADS VASC = 3, hence not very high cva risk (3%/year) and with short period in afib. Discussed risk/benefit (see prior notes) with heme --> cleared for trial of AC. given BMI and renal function will initiate heparin bridge to coumadin. montioring of hgb while on heparin bridge. - currently rate controlled/SR off av kia blockade - recent echo wnl ASA: - ? etiology - renal following, JANE held diastolic chf: - stable vol status, resume home diuretic when cr stabilizes venous ins/lymphedema: -chronic swelling --> as above anemia: -baseline values in past here run hgb 6s-9s. requires transfusions periodically -stable here--per heme - not thought to be from bleeding. work up ongoing. monitor with initation of AC. htn: -holding JANE (for ASA) -bp controlled hld: - Given diabetes, consider statin therapy--defer to outpt setting in light of mult acute med issues cardiac mckeon remains stable
[2017-07-14] MEDS: TASIGNA 150 MG PO SCH ×2 (10:47→22:00)
--- NOTE | 2017-07-14 11:06 | PN ---
Progress Note (short form) - Note Progress Note: seen and examined this am. chart reviewed She did not want to talk much as she mentioned that she wanted to sleep. O/E: NAD erythematous skin all over peeling off, stable CTA b/l Abdomen benign LE changes a bit worse today +anasarca Last Vital Signs Temp Pulse Resp BP Pulse Ox 97.8 F 84 20 119/50 94 L 07/11/17 06:00 07/11/17 06:00 07/11/17 06:00 07/11/17 06:00 07/10/17 21:00 CBC, BMP 07/11/17 05:10 07/11/17 05:10 Current Medications Generic Name Dose Route Start Last Admin Trade Name Freq PRN Reason Stop Dose Admin Acetaminophen 650 mg 07/07/17 19:54 07/11/17 11:22 Tylenol - PO 650 mg Q6H PRN Administration PAIN Albuterol Sulfate 1 amp 07/08/17 00:37 Ventolin 0.083% Nebulizer Soln - NEB Q6H PRN SHORT OF BREATH/WHEEZING Arformoterol Tartrate 1 amp 07/08/17 12:30 07/10/17 22:58 Brovana (Restricted To Pulmonology/Resp) - NEB 1 amp BID JOVITA Administration Ferrous Sulfate 325 mg 07/07/17 22:00 07/11/17 11:11 Feosol - PO 325 mg BID JOVITA Administration Meropenem 10 mls @ 120 mls/hr 07/08/17 12:30 07/11/17 10:11 Merrem (Restricted To Id) - IVPUSH 120 mls/hr Q8H-IV [facility] Administration Vancomycin HCl 1,000 mg/ 250 mls @ 166.667 mls/hr 07/10/17 11:00 07/10/17 12:06 Dextrose IVPB 166.667 mls/hr Q48H [facility] Administration Sodium Chloride 1,000 mls @ 65 mls/hr 07/10/17 14:58 07/11/17 11:23 Normal Saline - IV 65 mls/hr ASDIR JOVITA Administration Insulin Aspart 1 vial 07/07/17 22:00 07/11/17 06:26 Novolog Vial Sliding Scale - SQ Not Given ACHS [facility] Protocol Levothyroxine Sodium 25 mcg 07/08/17 07:00 07/11/17 06:27 Synthroid - PO 25 mcg AM [facility] Administration Oxycodone HCl 10 mg 07/07/17 20:00 07/11/17 11:12 Roxicodone - PO 10 mg Q4H PRN Administration CML -c/w Nilotinib -will f/u on repeat BCR ABL. -iron studies reviewed ,consistent with ACD/ACI, last EGD/Colonoscopy negative New afib -heparin with coumadin bridge -hgb 7.9 today, will monitor ATN: -?cause -cr 2.0, improving Rash: -derm eval pending -Lower extremeties looks a bit worse than day before -Eos of 20%, will await until derm eval is done before ruling out a primary hematological problem which may beless likely Sepsis: -source? -ID f/u -on abx. -she did not receive IV abx , await ID f/u for PO She refused [facility] care for support.
[2017-07-14] MEDS ORDERED: INSULIN (NOVOLOG) ASPART 100 UNITS/ML 10ML VIAL ONE (11:53)
[2017-07-14 12:19] LABS: INR 2.58 (0.82-1.09); PROTHROMBIN TIME (PATIENT) 29.1 SEC (9.98-11.88)
--- NOTE | 2017-07-14 15:55 | PN ---
Progress Note, Physician History of Present Illness: Pt seen and examined at bedside. She is awake and alert. She still has the rash. - Current Medication List Current Medications: Active Medications Acetaminophen (Tylenol -) 650 mg PO Q6H PRN PRN Reason: PAIN Last Admin: 07/14/17 10:48 Dose: 650 mg Arformoterol Tartrate (Brovana (Restricted To Pulmonology/Resp) -) 1 amp NEB BID JOVITA Last Admin: 07/14/17 10:00 Dose: 1 amp Diphenhydramine HCl (Benadryl -) 25 mg PO Q6H PRN PRN Reason: FOR ITCHING Last Admin: 07/13/17 09:35 Dose: 25 mg Ferrous Sulfate (Feosol -) 325 mg PO BID JOVITA Last Admin: 07/14/17 09:18 Dose: 325 mg Heparin Sodium (Porcine) (Heparin -) 5,000 unit IVPUSH PRN PRN PRN Reason: Heparin Last Admin: 07/12/17 23:11 Dose: 5,000 unit Heparin Sodium (Porcine) (Heparin -) 1,000 unit IVPUSH PRN PRN PRN Reason: Heparin Last Admin: 07/14/17 10:50 Dose: 1,000 unit Hydroxyzine HCl (Atarax -) 10 mg PO Q6HPO JOVITA Last Admin: 07/14/17 12:20 Dose: 10 mg Vancomycin HCl 1,000 mg/ (Dextrose) 250 mls @ 166.667 mls/hr IVPB Q48H JOVITA Last Admin: 07/12/17 11:15 Dose: Not Given Heparin Sodium (Porcine) 25, (000 unit/ Sodium Chloride) 500 mls @ 20 mls/hr IV TITR JOVITA; 1,000 UNIT/HR PRN Reason: Protocol Last Titration: 07/14/17 12:09 Dose: 1,400 unit/hr, 28 mls/hr Insulin Aspart (Novolog Vial Sliding Scale -) 1 vial SQ ACHS JOVITA PRN Reason: Protocol Last Admin: 07/14/17 12:19 Dose: 4 units Levothyroxine Sodium (Synthroid -) 25 mcg PO AM JOVITA Last Admin: 07/14/17 06:09 Dose: 25 mcg Patient's Own Medication (Non- Formulary) (Tasigna 150mg) 300 mg PO Q12H JOVITA Last Admin: 07/14/17 10:47 Dose: 300 mg Oxycodone HCl (Roxicodone -) 10 mg PO Q4H PRN Last Admin: 07/14/17 09:19 Dose: 10 mg Pantoprazole Sodium (Protonix -) 40 mg PO DAILY JOVITA Last Admin: 07/14/17 09:19 Dose: 40 mg Warfarin Sodium (Coumadin -) 7.5 mg PO ONCE@1800 ONE Stop: 07/14/17 18:01 - Objective Vital Signs: Vital Signs Temperature 97.9 F 07/14/17 14:00 Pulse Rate 92 H 07/14/17 14:00 Respiratory Rate 20 07/14/17 14:00 Blood Pressure 94/56 07/14/17 14:00 O2 Sat by Pulse Oximetry (%) 99 07/14/17 10:00 Constitutional: Yes: Calm Eyes: Yes: Conjunctiva Clear HENT: Yes: Atraumatic Neck: Yes: Supple Cardiovascular: Yes: S1, S2 Respiratory: Yes: CTA Bilaterally, On Nasal O2 Gastrointestinal: Yes: Normal Bowel Sounds, Soft, Abdomen, Obese Genitourinary: Yes: WNL Edema: Yes Edema: LLE: 1+, RLE: 1+ Integumentary: Yes: Rash Neurological: Yes: Oriented Psychiatric: Yes: Oriented Labs: CBC, BMP 07/14/17 05:10 07/14/17 05:10 INR, PTT INR 2.58 (0.82-1.09) H D 07/14/17 11:35 Problem List - Problems (1) Diabetes Code(s): E11.9 - TYPE 2 DIABETES MELLITUS WITHOUT COMPLICATIONS (2) CML (chronic myelocytic leukemia) Code(s): C92.10 - CHRONIC MYELOID LEUK, BCR/ABL-POSITIVE, NOT ACHIEVE REMIS (3) Anemia Code(s): D64.9 - ANEMIA, UNSPECIFIED Qualifiers: Anemia type: other cause Other causes of anemia: acute posthemorrhagic Qualified Code(s): D62 - Acute posthemorrhagic anemia (4) Cellulitis of leg, left Code(s): L03.116 - CELLULITIS OF LEFT LOWER LIMB (5) CHF (congestive heart failure) Code(s): I50.9 - HEART FAILURE, UNSPECIFIED Qualifiers: Congestive heart failure type: diastolic Congestive heart failure chronicity: chronic Qualified Code(s): I50.32 - Chronic diastolic (congestive ) heart failure (6) Acute renal insufficiency Code(s): N28.9 - DISORDER OF KIDNEY AND URETER, UNSPECIFIED (7) Hyperkalemia Code(s): E87.5 - HYPERKALEMIA (8) MARIA ELENA positive Code(s): R76.8 - OTHER SPECIFIED ABNORMAL IMMUNOLOGICAL FINDINGS IN SERUM (9) ASA (acute kidney injury) Code(s): N17.9 - ACUTE KIDNEY FAILURE, UNSPECIFIED Assessment/Plan Current Medications Generic Name Dose Route Start Last Admin Trade Name Freq PRN Reason Stop Dose Admin Acetaminophen 650 mg 07/07/17 19:54 07/14/17 10:48 Tylenol - PO 650 mg Q6H PRN Administration PAIN Arformoterol Tartrate 1 amp 07/08/17 12:30 07/14/17 10:00 Aydin (Restricted To Pulmonology/Resp) - NEB 1 amp BID JOVITA Administration Diphenhydramine HCl 25 mg 07/12/17 11:06 07/13/17 09:35 Benadryl - PO 25 mg Q6H PRN Administration FOR ITCHING Ferrous Sulfate 325 mg 07/07/17 22:00 07/14/17 09:18 Feosol - PO 325 mg BID JOVITA Administration Heparin Sodium (Porcine) 5,000 unit 07/12/17 11:02 07/12/17 23:11 Heparin - IVPUSH 5,000 unit PRN PRN Administration Heparin Heparin Sodium (Porcine) 1,000 unit 07/12/17 11:02 07/14/17 10:50 Heparin - IVPUSH 1,000 unit PRN PRN Administration Heparin Hydroxyzine HCl 10 mg 07/13/17 14:15 07/14/17 12:20 Atarax - PO 10 mg Q6HPO JOVITA Administration Vancomycin HCl 1,000 mg/ 250 mls @ 166.667 mls/hr 07/10/17 11:00 07/12/17 11: 15 Dextrose IVPB Not Given Q48H JOVITA Heparin Sodium (Porcine) 25, 500 mls @ 20 mls/hr 07/11/17 19:15 07/14/17 12: 09 000 unit/ Sodium Chloride IV 1,400 unit/hr TITR JOVITA 28 mls/hr Protocol Titration 1,000 UNIT/HR Insulin Aspart 1 vial 07/07/17 22:00 07/14/17 12:19 Novolog Vial Sliding Scale - SQ 4 units ACHS JOVITA Administration Protocol Levothyroxine Sodium 25 mcg 07/08/17 07:00 07/14/17 06:09 Synthroid - PO 25 mcg AM JOVITA Administration Patient's Own 300 mg 07/13/17 10:30 07/14/17 10:47 Medication (Non- PO 300 mg Formulary) (Tasigna Q12H JOVITA Administration 150mg) Oxycodone HCl 10 mg 07/07/17 20:00 07/14/17 09:19 Roxicodone - PO 10 mg Q4H PRN Administration Pantoprazole Sodium 40 mg 07/12/17 10:45 07/14/17 09:19 Protonix - PO 40 mg DAILY JOVITA Administration Warfarin Sodium 7.5 mg 07/14/17 18:00 Coumadin - PO 07/14/17 18:01 ONCE@1800 ONE Laboratory Tests 07/11/17 07/14/17 18:40 05:10 Eosinophils % 20.1 H* Urine Eosinophils None seen Impression 1. ASA 2. anemia 3. rash 4. CML 5. hypothyroidism 6. HTN 7. chol 8. CHF 9. COPD 10. hyperkalemia 11. sepsis 12. new onset a-fib 13. peripheral eosinophilia Plan - creatinine is improving - derm eval for rash - onc input appreciated - diuretics on hold, will evaluate daily - jarek on hold - likely asa from atn - will follow closely Dr Sanchez
--- NOTE | 2017-07-14 16:11 | PN ---
Progress Note, Physician History of Present Illness: stable itching main issues - Current Medication List Current Medications: Active Medications Acetaminophen (Tylenol -) 650 mg PO Q6H PRN PRN Reason: PAIN Last Admin: 07/14/17 10:48 Dose: 650 mg Arformoterol Tartrate (Brovana (Restricted To Pulmonology/Resp) -) 1 amp NEB BID [facility] Last Admin: 07/14/17 10:00 Dose: 1 amp Diphenhydramine HCl (Benadryl -) 25 mg PO Q6H PRN PRN Reason: FOR ITCHING Last Admin: 07/13/17 09:35 Dose: 25 mg Ferrous Sulfate (Feosol -) 325 mg PO BID [facility] Last Admin: 07/14/17 09:18 Dose: 325 mg Hydroxyzine HCl (Atarax -) 10 mg PO Q6HPO [facility] Last Admin: 07/14/17 12:20 Dose: 10 mg Vancomycin HCl 1,000 mg/ (Dextrose) 250 mls @ 166.667 mls/hr IVPB Q48H [facility] Last Admin: 07/12/17 11:15 Dose: Not Given Insulin Aspart (Novolog Vial Sliding Scale -) 1 vial SQ ACHS JOVITA PRN Reason: Protocol Last Admin: 07/14/17 12:19 Dose: 4 units Levothyroxine Sodium (Synthroid -) 25 mcg PO AM [facility] Last Admin: 07/14/17 06:09 Dose: 25 mcg Patient's Own Medication (Non- Formulary) (Tasigna 150mg) 300 mg PO Q12H [facility] Last Admin: 07/14/17 10:47 Dose: 300 mg Oxycodone HCl (Roxicodone -) 10 mg PO Q4H PRN Last Admin: 07/14/17 09:19 Dose: 10 mg Pantoprazole Sodium (Protonix -) 40 mg PO DAILY [facility] Last Admin: 07/14/17 09:19 Dose: 40 mg Warfarin Sodium (Coumadin -) 7.5 mg PO ONCE@1800 ONE Stop: 07/14/17 18:01 - Objective Vital Signs: Vital Signs Temperature 97.9 F 07/14/17 14:00 Pulse Rate 92 H 07/14/17 14:00 Respiratory Rate 20 07/14/17 14:00 Blood Pressure 94/56 07/14/17 14:00 O2 Sat by Pulse Oximetry (%) 99 07/14/17 10:00 Constitutional: Yes: No Distress, Calm, Obese Cardiovascular: Yes: Regular Rate and Rhythm Respiratory: Yes: Regular, CTA Bilaterally, On Nasal O2 Gastrointestinal: Yes: Normal Bowel Sounds, Soft Musculoskeletal: Yes: Other Extremities: Yes: Other Edema: LLE: Trace, RLE: Trace Neurological: Yes: Alert, Oriented Psychiatric: Yes: Alert, Oriented Labs: CBC, BMP 07/14/17 05:10 07/14/17 05:10 INR, PTT INR 2.58 (0.82-1.09) H D 07/14/17 11:35 Assessment/Plan . 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
[2017-07-14] MEDS: VANCOMYCIN 1,000 MG in DEXTROSE 5%-WATER - 250 ML IVPB SCH (16:12)
[2017-07-14] MEDS ORDERED: WARFARIN NA 7.5 MG TABLET (FP) PO ONE (18:00)
[2017-07-15] MEDS: hydrOXYzine HCL 10 MG TABLET PO SCH ×5 (00:56→23:51)
[2017-07-15] MEDS ORDERED: PT OWN MED DRAWER 7, Y5N ONE ×2 (04:33→17:04)
[2017-07-15] MEDS: oxyCODONE HCL 5 MG TABLET PO PRN ×5 (04:48→23:53)
[2017-07-15] MEDS: ACETAMINOPHEN 325 MG TABLET (FP) PO PRN ×3 (04:51→17:06)
[2017-07-15] MEDS: INSULIN SLIDING SCALE (NOVOLOG) 1 VIAL SQ SCH ×4 (06:11→22:16)
[2017-07-15] MEDS: LEVOTHYROXINE NA 25 MCG TABLET (FP) PO SCH ×2 (06:11→12:13)
--- NOTE | 2017-07-15 07:50 | PN ---
Progress Note, Physician - Current Medication List Current Medications: Active Medications Acetaminophen (Tylenol -) 650 mg PO Q6H PRN PRN Reason: PAIN Last Admin: 07/15/17 04:51 Dose: 650 mg Arformoterol Tartrate (Brovana (Restricted To Pulmonology/Resp) -) 1 amp NEB BID [facility] Last Admin: 07/14/17 21:30 Dose: 1 amp Diphenhydramine HCl (Benadryl -) 25 mg PO Q6H PRN PRN Reason: FOR ITCHING Last Admin: 07/13/17 09:35 Dose: 25 mg Ferrous Sulfate (Feosol -) 325 mg PO BID [facility] Last Admin: 07/14/17 21:08 Dose: 325 mg Hydroxyzine HCl (Atarax -) 10 mg PO Q6HPO [facility] Last Admin: 07/15/17 05:00 Dose: 10 mg Insulin Aspart (Novolog Vial Sliding Scale -) 1 vial SQ ACHS [facility] PRN Reason: Protocol Last Admin: 07/15/17 06:11 Dose: Not Given Levothyroxine Sodium (Synthroid -) 25 mcg PO AM [facility] Last Admin: 07/15/17 06:11 Dose: 25 mcg Patient's Own Medication (Non- Formulary) (Tasigna 150mg) 300 mg PO Q12H [facility] Last Admin: 07/14/17 22:00 Dose: 300 mg Oxycodone HCl (Roxicodone -) 10 mg PO Q4H PRN Last Admin: 07/15/17 04:48 Dose: 10 mg Pantoprazole Sodium (Protonix -) 40 mg PO DAILY [facility] Last Admin: 07/14/17 09:19 Dose: 40 mg - Objective Vital Signs: Vital Signs Temperature 98.4 F 07/15/17 06:00 Pulse Rate 89 07/15/17 06:00 Respiratory Rate 20 07/15/17 06:00 Blood Pressure 142/60 07/15/17 06:00 O2 Sat by Pulse Oximetry (%) 99 07/14/17 19:33 Labs: INR, PTT INR 2.58 (0.82-1.09) H D 07/14/17 11:35 Problem List - Problems (1) Sepsis Assessment/Plan: resolved Code(s): A41.9 - SEPSIS, UNSPECIFIED ORGANISM Qualifiers: Sepsis type: Escherichia coli Qualified Code(s): A41.51 - Sepsis due to Escherichia coli [E. coli] (2) Atrial fibrillation with RVR Assessment/Plan: paroxysmal atrial fibrillation - rate control patient CHADVasC 6 - on warfarin followed by cardiology monitor HB and INR c/w same dose Code(s): I48.91 - UNSPECIFIED ATRIAL FIBRILLATION (3) ASA (acute kidney injury) Assessment/Plan: resolving with IVF hydration Code(s): N17.9 - ACUTE KIDNEY FAILURE, UNSPECIFIED (4) Diabetic retinopathy associated with controlled type 2 diabetes mellitus Assessment/Plan: on ISS and Code(s): E11.319 - TYPE 2 DIABETES W UNSP DIABETIC RTNOP W/O MACULAR EDEMA (5) Anemia Assessment/Plan: patient with hx of CML being managed with hematology monitor HB patient is on warfarin for the paroxysmal atrial fib -iron studies consistent with ACD/ACI, last EGD/Colonoscopy negative Code(s): D64.9 - ANEMIA, UNSPECIFIED Qualifiers: Anemia type: other cause Other causes of anemia: chronic disease, other Qualified Code(s): D63.8 - Anemia in other chronic diseases classified elsewhere (6) Drug induced rash with eosinophilia and systemic symptoms Assessment/Plan: patient exfoliating skin after the management -derm eval pending -Lower extremeties looks a bit worse than day before -Eos of 20%, Code(s): L27.0 - GEN SKIN ERUPTION DUE TO DRUGS AND MEDS TAKEN INTERNALLY; D72.1 - EOSINOPHILIA; T50.905A - ADVERSE EFFECT OF UNSP DRUG/MEDS/BIOL SUBST, INIT (7) Hypothyroid Assessment/Plan: controlled TSH 1.87 c/w lethothyroxine 25mcg daily Code(s): E03.9 - HYPOTHYROIDISM, UNSPECIFIED (8) CML (chronic myelocytic leukemia) Assessment/Plan: CML -c/w Nilotinib -will f/u on repeat BCR ABL. Code(s): C92.10 - CHRONIC MYELOID LEUK, BCR/ABL-POSITIVE, NOT ACHIEVE REMIS Assessment/Plan .
[2017-07-15 07:54] LABS: MCH 28.8 pg (25.7-33.7); MCHC 32.8 g/dl (32.0-36.0); MEAN CELL VOLUME 87.9 fl (80-96); MEAN PLT VOLUME 7.9 fl (7.5-11.1); PLATELET COUNT 165 K/MM3 (134-434); WHITE BLOOD COUNT 5.9 K/mm3 (4.0-10.0)
[2017-07-15 08:15] LABS: PROTHROMBIN TIME (PATIENT) 46.8 SEC (9.98-11.88)
[2017-07-15 08:28] LABS: ANION GAP 9 (8-16); CALCIUM 7.7 mg/dL (8.5-10.1); CO2 19 mmol/L (21-32); GLUCOSE,RANDOM 158 mg/dL (74-106)
[2017-07-15 08:30] LABS: CREATININE 1.9 mg/dL (0.55-1.02); INR 4.14 (0.82-1.09)
[2017-07-15] MEDS: ARFORMOTEROL TARTRATE 15 MCG/2 ML VIAL NEB SCH ×2 (10:15→22:00)
[2017-07-15] MEDS: FERROUS SO4 325 MG TABLET (FP) PO SCH ×2 (10:27→22:16)
[2017-07-15] MEDS: diphenhydrAMINE HCL 25 MG CAPSULE (FP) PO PRN ×3 (10:27→22:21)
[2017-07-15] MEDS: TASIGNA 150 MG PO SCH ×2 (10:28→22:16)
[2017-07-15] MEDS: PANTOPRAZOLE 40 MG TABLET (FP) PO SCH (10:28)
[2017-07-15] MEDS ORDERED: INSULIN (NOVOLOG) ASPART 100 UNITS/ML 10ML VIAL ONE ×2 (12:04→21:55)
--- NOTE | 2017-07-15 12:24 | PN ---
Progress Note (short form) - Note Progress Note: CC: afib S: no cp, palps, dizziness, sob. Current Medications Generic Name Dose Route Start Last Admin Trade Name Freq PRN Reason Stop Dose Admin Acetaminophen 650 mg 07/07/17 19:54 07/15/17 10:26 Tylenol - PO 650 mg Q6H PRN Administration PAIN Arformoterol Tartrate 1 amp 07/08/17 12:30 07/15/17 10:15 Brovana (Restricted To Pulmonology/Resp) - NEB Not Given BID JOVITA Diphenhydramine HCl 25 mg 07/12/17 11:06 07/15/17 10:27 Benadryl - PO 25 mg Q6H PRN Administration FOR ITCHING Ferrous Sulfate 325 mg 07/07/17 22:00 07/15/17 10:27 Feosol - PO 325 mg BID JOVITA Administration Hydroxyzine HCl 10 mg 07/13/17 14:15 07/15/17 12:10 Atarax - PO Not Given Q6HPO JOVITA Insulin Aspart 1 vial 07/07/17 22:00 07/15/17 12:08 Novolog Vial Sliding Scale - SQ 6 units ACHS JOVITA Administration Protocol Levothyroxine Sodium 25 mcg 07/08/17 07:00 07/15/17 12:13 Synthroid - PO Not Given AM JOVITA Patient's Own 300 mg 07/13/17 10:30 07/15/17 10:28 Medication (Non- PO 300 mg Formulary) (Tasigna Q12H JOVITA Administration 150mg) Oxycodone HCl 10 mg 07/07/17 20:00 07/15/17 10:27 Roxicodone - PO 10 mg Q4H PRN Administration Pantoprazole Sodium 40 mg 07/12/17 10:45 07/15/17 10:28 Protonix - PO 40 mg DAILY JOVITA Administration Vital Signs Period Temp Pulse Resp BP Sys/Machado Pulse Ox Last 24 Hr 97.5 F-98.5 F 57-92 20-20 94-142/56-71 93-99 nad, no jvd rrr s1s2 no mrg cta b/l, nleff abd nd nt, obese. pos bs pos dp/pt + erythematous rash with skin sloughing trace -1+ dependent edema no c/c no diaphoresis no jaundice aaox3 CBC, BMP 07/15/17 06:00 07/15/17 06:00 echo 04/2017: tds. nl lv/rv. 1+ lae. mod mac mild-mod tr rvsp 45. A/P 66 yo f with hx htn, dm, hld, hypothyroid, obesity, possible copd, CML/anemia, p /w chills found to have uti/sepsis/asa. hospital course complicated by new afib with rvr. new afib - hgb is stable vs prior baseline. was 6's on admit, currently around 8. - this would provide little reserve if she develops bleeding on AC agent; - CHADS VASC = 3, hence not very high cva risk (3%/year) and with short period in afib. Discussed risk/benefit (see prior notes) with heme --> cleared for trial of AC. given BMI and renal function have started on coumadin, cont per inr - currently rate controlled/SR off av kai blockade - recent echo wnl ASA: - ? etiology - renal following, JANE held diastolic chf: - stable vol status, resume home diuretic when cr stabilizes venous ins/lymphedema: -chronic swelling --> as above anemia: -baseline values in past here run hgb 6s-9s. requires transfusions periodically -stable here--per heme - not thought to be from bleeding. work up ongoing. monitor with initation of AC. htn: -holding JANE (for ASA) -bp controlled hld: - Given diabetes, consider statin therapy--defer to outpt setting in light of mult acute med issues cardiac mckeon remains stable
--- NOTE | 2017-07-15 12:26 | PN ---
Progress Note (short form) - Note Progress Note: RENAL Pt is awake and alert upset about her condition has had a rash for a long time now Last Vital Signs Temp Pulse Resp BP Pulse Ox 98.5 F 57 L 20 138/71 93 L 07/15/17 10:00 07/15/17 10:15 07/15/17 10:00 07/15/17 10:00 07/15/17 10:15 lungs clear cvs s1s2 rr abd soft ext +edema neuro a+ox3 CBC, BMP 07/15/17 06:00 07/15/17 06:00 Current Medications Generic Name Dose Route Start Last Admin Trade Name Freq PRN Reason Stop Dose Admin Acetaminophen 650 mg 07/07/17 19:54 07/15/17 10:26 Tylenol - PO 650 mg Q6H PRN Administration PAIN Arformoterol Tartrate 1 amp 07/08/17 12:30 07/15/17 10:15 Brovana (Restricted To Pulmonology/Resp) - NEB Not Given BID JOVITA Diphenhydramine HCl 25 mg 07/12/17 11:06 07/15/17 10:27 Benadryl - PO 25 mg Q6H PRN Administration FOR ITCHING Ferrous Sulfate 325 mg 07/07/17 22:00 07/15/17 10:27 Feosol - PO 325 mg BID JOVITA Administration Hydroxyzine HCl 10 mg 07/13/17 14:15 07/15/17 12:10 Atarax - PO Not Given Q6HPO JOVITA Insulin Aspart 1 vial 07/07/17 22:00 07/15/17 12:08 Novolog Vial Sliding Scale - SQ 6 units ACHS JOVITA Administration Protocol Levothyroxine Sodium 25 mcg 07/08/17 07:00 07/15/17 12:13 Synthroid - PO Not Given AM JOVITA Patient's Own 300 mg 07/13/17 10:30 07/15/17 10:28 Medication (Non- PO 300 mg Formulary) (Tasigna Q12H JOVITA Administration 150mg) Oxycodone HCl 10 mg 07/07/17 20:00 07/15/17 10:27 Roxicodone - PO 10 mg Q4H PRN Administration Pantoprazole Sodium 40 mg 07/12/17 10:45 07/15/17 10:28 Protonix - PO 40 mg DAILY JOVITA Administration Impression 1. ASA 2. anemia 3. rash 4. CML- on tasigna 5. hypothyroidism 6. HTN 7. chol 8. CHF 9. COPD 10. hyperkalemia 11. sepsis 12. new onset a-fib 13. peripheral eosinophilia Plan somewhat improved numbers eosinophilia requires evaluation, urine eos negative but sensitivity of test is poor monitor renal function MV
--- NOTE | 2017-07-15 12:33 | PN ---
Progress Note (short form) - Note Progress Note: [facility] HEMATOLOGY PROGRESS NOTE Progress Note (short form) - Note Progress Note: doing ok O/E: NAD erythematous skin all over peeling off, stable CTA b/l Abdomen benign +anasarca CBC, BMP 07/15/17 06:00 07/15/17 06:00 Active Medications Generic Name Dose Route Start Last Admin Trade Name Freq PRN Reason Stop Dose Admin Acetaminophen 650 mg 07/07/17 19:54 07/15/17 10:26 Tylenol - PO 650 mg Q6H PRN Administration PAIN Arformoterol Tartrate 1 amp 07/08/17 12:30 07/15/17 10:15 Brovana (Restricted To Pulmonology/Resp) - NEB Not Given BID JOVITA Diphenhydramine HCl 25 mg 07/12/17 11:06 07/15/17 10:27 Benadryl - PO 25 mg Q6H PRN Administration FOR ITCHING Ferrous Sulfate 325 mg 07/07/17 22:00 07/15/17 10:27 Feosol - PO 325 mg BID JOVITA Administration Hydroxyzine HCl 10 mg 07/13/17 14:15 07/15/17 12:10 Atarax - PO Not Given Q6HPO JOVITA Insulin Aspart 1 vial 07/07/17 22:00 07/15/17 12:08 Novolog Vial Sliding Scale - SQ 6 units ACHS JOVITA Administration Protocol Levothyroxine Sodium 25 mcg 07/08/17 07:00 07/15/17 12:13 Synthroid - PO Not Given AM JOVITA Patient's Own 300 mg 07/13/17 10:30 07/15/17 10:28 Medication (Non- PO 300 mg Formulary) (Tasigna Q12H JOVITA Administration 150mg) Oxycodone HCl 10 mg 07/07/17 20:00 07/15/17 10:27 Roxicodone - PO 10 mg Q4H PRN Administration Pantoprazole Sodium 40 mg 07/12/17 10:45 07/15/17 10:28 Protonix - PO 40 mg DAILY JOVITA Administration CML -c/w Nilotinib -will f/u on repeat BCR ABL. -iron studies reviewed ,consistent with ACD/ACI, last EGD/Colonoscopy negative New afib -heparin with coumadin bridge -hgb 7.8 today, will monitor ATN: -?cause -cr 1.9 improving Rash: -derm eval pending -Lower extremeties looks a bit worse than day before -Eos of 20%, will await until derm eval is done before ruling out a primary hematological problem which may beless likely Sepsis: -source? -ID f/u -on abx.
--- NOTE | 2017-07-15 16:14 | PN ---
Progress Note, Physician History of Present Illness: stable itching main issues feels better today - Current Medication List Current Medications: Active Medications Acetaminophen (Tylenol -) 650 mg PO Q6H PRN PRN Reason: PAIN Last Admin: 07/15/17 10:26 Dose: 650 mg Arformoterol Tartrate (Brovana (Restricted To Pulmonology/Resp) -) 1 amp NEB BID [facility] Last Admin: 07/15/17 10:15 Dose: Not Given Diphenhydramine HCl (Benadryl -) 25 mg PO Q6H PRN PRN Reason: FOR ITCHING Last Admin: 07/15/17 10:27 Dose: 25 mg Ferrous Sulfate (Feosol -) 325 mg PO BID [facility] Last Admin: 07/15/17 10:27 Dose: 325 mg Hydroxyzine HCl (Atarax -) 10 mg PO Q6HPO [facility] Last Admin: 07/15/17 12:10 Dose: Not Given Insulin Aspart (Novolog Vial Sliding Scale -) 1 vial SQ ACHS [facility] PRN Reason: Protocol Last Admin: 07/15/17 12:08 Dose: 6 units Levothyroxine Sodium (Synthroid -) 25 mcg PO AM [facility] Last Admin: 07/15/17 12:13 Dose: Not Given Patient's Own Medication (Non- Formulary) (Tasigna 150mg) 300 mg PO Q12H [facility] Last Admin: 07/15/17 10:28 Dose: 300 mg Oxycodone HCl (Roxicodone -) 10 mg PO Q4H PRN Last Admin: 07/15/17 14:57 Dose: 10 mg Pantoprazole Sodium (Protonix -) 40 mg PO DAILY [facility] Last Admin: 07/15/17 10:28 Dose: 40 mg - Objective Vital Signs: Vital Signs Temperature 98.3 F 07/15/17 14:08 Pulse Rate 88 07/15/17 14:08 Respiratory Rate 20 07/15/17 14:08 Blood Pressure 142/65 07/15/17 14:08 O2 Sat by Pulse Oximetry (%) 93 L 07/15/17 10:15 Constitutional: Yes: No Distress, Calm, Obese Cardiovascular: Yes: Regular Rate and Rhythm Respiratory: Yes: Regular, On Nasal O2 Gastrointestinal: Yes: Normal Bowel Sounds, Soft Musculoskeletal: Yes: Other Extremities: Yes: Other Neurological: Yes: Alert, Oriented Psychiatric: Yes: Alert, Oriented Labs: CBC, BMP 07/15/17 06:00 07/15/17 06:00 INR, PTT INR 4.14 (0.82-1.09) H* D 07/15/17 06:00 Assessment/Plan . 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
[2017-07-16] MEDS: INSULIN SLIDING SCALE (NOVOLOG) 1 VIAL SQ SCH ×4 (06:36→22:07)
[2017-07-16] MEDS: LEVOTHYROXINE NA 25 MCG TABLET (FP) PO SCH (06:36)
[2017-07-16] MEDS: oxyCODONE HCL 5 MG TABLET PO PRN ×2 (06:36→10:47)
[2017-07-16] MEDS: hydrOXYzine HCL 10 MG TABLET PO SCH ×3 (06:37→18:01)
[2017-07-16 07:41] LABS: BASOPHIL 0.4 % (0-2.0); EOSINOPHIL 18.2 % (0-4.5); MCHC 33.2 g/dl (32.0-36.0); MEAN CELL VOLUME 87.5 fl (80-96); MEAN PLT VOLUME 7.6 fl (7.5-11.1); NEUTROPHILS 48.9 % (42.8-82.8); PLATELET COUNT 193 K/MM3 (134-434); RDW 17.9 % (11.6-15.6); WHITE BLOOD COUNT 6.6 K/mm3 (4.0-10.0)
[2017-07-16 08:05] LABS: PROTHROMBIN TIME (PATIENT) 64.9 SEC (9.98-11.88)
[2017-07-16 08:15] LABS: INR 5.74 (0.82-1.09)
[2017-07-16 08:23] LABS: ALBUMIN 1.8 g/dl (3.4-5.0); ANION GAP 11 (8-16); CALCIUM 7.4 mg/dL (8.5-10.1); CO2 17 mmol/L (21-32); GLUCOSE,RANDOM 158 mg/dL (74-106); MAGNESIUM 1.8 mg/dL (1.8-2.4); SGOT/AST 8 U/L (15-37); SGPT/ALT 10 U/L (12-78)
[2017-07-16 08:25] LABS: ALK PHOS 97 U/L (45-117); BILIRUBIN,TOTAL 0.5 mg/dL (0.2-1.0); CREATININE 1.9 mg/dL (0.55-1.02); TOT PROT 6.4 g/dl (6.4-8.2)
--- NOTE | 2017-07-16 09:37 | PN ---
Progress Note, Physician Chief Complaint: patient states she is feeling better today, she is not in pain, and not angry like shew as yesterday - Current Medication List Current Medications: Active Medications Acetaminophen (Tylenol -) 650 mg PO Q6H PRN PRN Reason: PAIN Last Admin: 07/15/17 17:06 Dose: 650 mg Arformoterol Tartrate (Brovana (Restricted To Pulmonology/Resp) -) 1 amp NEB BID [facility] Last Admin: 07/15/17 22:00 Dose: Not Given Diphenhydramine HCl (Benadryl -) 25 mg PO Q6H PRN PRN Reason: FOR ITCHING Last Admin: 07/15/17 22:21 Dose: 25 mg Ferrous Sulfate (Feosol -) 325 mg PO BID [facility] Last Admin: 07/15/17 22:16 Dose: 325 mg Hydroxyzine HCl (Atarax -) 10 mg PO Q6HPO [facility] Last Admin: 07/16/17 06:37 Dose: Not Given Insulin Aspart (Novolog Vial Sliding Scale -) 1 vial SQ ACHS [facility] PRN Reason: Protocol Last Admin: 07/16/17 06:36 Dose: 2 units Levothyroxine Sodium (Synthroid -) 25 mcg PO AM [facility] Last Admin: 07/16/17 06:36 Dose: 25 mcg Patient's Own Medication (Non- Formulary) (Tasigna 150mg) 300 mg PO Q12H [facility] Last Admin: 07/15/17 22:16 Dose: 300 mg Oxycodone HCl (Roxicodone -) 10 mg PO Q4H PRN Last Admin: 07/16/17 06:36 Dose: 10 mg Pantoprazole Sodium (Protonix -) 40 mg PO DAILY [facility] Last Admin: 07/15/17 10:28 Dose: 40 mg - Objective Vital Signs: Vital Signs Temperature 97.9 F 07/16/17 05:49 Pulse Rate 86 07/16/17 05:49 Respiratory Rate 20 07/16/17 05:49 Blood Pressure 139/109 07/16/17 05:49 O2 Sat by Pulse Oximetry (%) 98 07/15/17 20:40 Constitutional: Yes: Well Nourished, No Distress Eyes: Yes: WNL HENT: Yes: WNL Neck: Yes: WNL Cardiovascular: Yes: WNL, Regular Rate and Rhythm, S1, S2 Respiratory: Yes: Regular Extremities: Yes: Erythema, Other (skin exfoliation) Edema: LUE: 4+, RUE: 4+, LLE: 4+, RLE: 4+ Labs: CBC, BMP 07/16/17 06:35 07/16/17 06:35 INR, PTT INR 5.74 (0.82-1.09) H* D 07/16/17 06:35 Problem List - Problems (1) Sepsis Code(s): A41.9 - SEPSIS, UNSPECIFIED ORGANISM Qualifiers: Sepsis type: Escherichia coli Qualified Code(s): A41.51 - Sepsis due to Escherichia coli [E. coli] (2) Atrial fibrillation with RVR Code(s): I48.91 - UNSPECIFIED ATRIAL FIBRILLATION (3) ASA (acute kidney injury) Code(s): N17.9 - ACUTE KIDNEY FAILURE, UNSPECIFIED (4) Diabetic retinopathy associated with controlled type 2 diabetes mellitus Code(s): E11.319 - TYPE 2 DIABETES W UNSP DIABETIC RTNOP W/O MACULAR EDEMA (5) Anemia Code(s): D64.9 - ANEMIA, UNSPECIFIED Qualifiers: Anemia type: other cause Other causes of anemia: chronic disease, other Qualified Code(s): D63.8 - Anemia in other chronic diseases classified elsewhere (6) Drug induced rash with eosinophilia and systemic symptoms Code(s): L27.0 - GEN SKIN ERUPTION DUE TO DRUGS AND MEDS TAKEN INTERNALLY; D72.1 - EOSINOPHILIA; T50.905A - ADVERSE EFFECT OF UNSP DRUG/MEDS/BIOL SUBST, INIT (7) Hypothyroid Code(s): E03.9 - HYPOTHYROIDISM, UNSPECIFIED (8) CML (chronic myelocytic leukemia) Code(s): C92.10 - CHRONIC MYELOID LEUK, BCR/ABL-POSITIVE, NOT ACHIEVE REMIS Assessment/Plan (1) Sepsis resolved resolving will c./w antibiotics (2) Atrial fibrillation with RVR paroxysmal atrial fibrillation - rate control patient CHADVasC 6 - on warfarin followed by cardiology monitor HB and INR is elevated with hold the dose today and repeat in the morning (3) ASA (acute kidney injury) resolving with IVF hydration (4) Diabetic retinopathy associated with controlled type 2 diabetes mellitus on ISS and (5) Anemia patient with hx of CML being managed with hematology monitor HB patient is on warfarin for the paroxysmal atrial fib -iron studies consistent with ACD/ACI, last EGD/Colonoscopy negative (6) Drug induced rash with eosinophilia and systemic symptoms patient exfoliating skin after the management -derm eval pending -Lower extremeties looks a bit worse than day before -Eos of 20%, (7) Hypothyroid controlled TSH 1.87 c/w lethothyroxine 25mcg daily (8) CML (chronic myelocytic leukemia) CML -c/w Nilotinib -will f/u on repeat BCR ABL.
[2017-07-16] MEDS: FERROUS SO4 325 MG TABLET (FP) PO SCH ×2 (09:49→22:06)
[2017-07-16] MEDS: PANTOPRAZOLE 40 MG TABLET (FP) PO SCH (09:49)
[2017-07-16] MEDS: TASIGNA 150 MG PO SCH ×2 (09:50→22:09)
[2017-07-16] MEDS: ARFORMOTEROL TARTRATE 15 MCG/2 ML VIAL NEB SCH ×4 (09:51→22:20)
[2017-07-16] MEDS: ACETAMINOPHEN 325 MG TABLET (FP) PO PRN (10:47)
[2017-07-16] MEDS ORDERED: INSULIN (NOVOLOG) ASPART 100 UNITS/ML 10ML VIAL ONE ×2 (11:26→21:15)
--- NOTE | 2017-07-16 11:34 | PN ---
Progress Note (short form) - Note Progress Note: RENAL Pt is awake and alert rash seems pulp drier Last Vital Signs Temp Pulse Resp BP Pulse Ox 97.6 F 90 20 133/65 99 07/16/17 10:00 07/16/17 10:00 07/16/17 10:00 07/16/17 10:00 07/16/17 09:00 lungs clear cvs s1s2 rr abd soft ext +edema skin erythema is better, still dry skin CBC, BMP 07/16/17 06:35 07/16/17 06:35 Current Medications Generic Name Dose Route Start Last Admin Trade Name Freq PRN Reason Stop Dose Admin Acetaminophen 650 mg 07/07/17 19:54 07/16/17 10:47 Tylenol - PO 650 mg Q6H PRN Administration PAIN Arformoterol Tartrate 1 amp 07/08/17 12:30 07/16/17 10:39 Brovana (Restricted To Pulmonology/Resp) - NEB Not Given BID [facility] Diphenhydramine HCl 25 mg 07/12/17 11:06 07/15/17 22:21 Benadryl - PO 25 mg Q6H PRN Administration FOR ITCHING Ferrous Sulfate 325 mg 07/07/17 22:00 07/16/17 09:49 Feosol - PO 325 mg BID [facility] Administration Hydroxyzine HCl 10 mg 07/13/17 14:15 07/16/17 06:37 Atarax - PO Not Given Q6HPO [facility] Insulin Aspart 1 vial 07/07/17 22:00 07/16/17 06:36 Novolog Vial Sliding Scale - SQ 2 units ACHS [facility] Administration Protocol Levothyroxine Sodium 25 mcg 07/08/17 07:00 07/16/17 06:36 Synthroid - PO 25 mcg AM [facility] Administration Patient's Own 300 mg 07/13/17 10:30 07/16/17 09:50 Medication (Non- PO 300 mg Formulary) (Tasigna Q12H [facility] Administration 150mg) Oxycodone HCl 10 mg 07/07/17 20:00 07/16/17 10:47 Roxicodone - PO 10 mg Q4H PRN Administration Pantoprazole Sodium 40 mg 07/12/17 10:45 07/16/17 09:49 Protonix - PO 40 mg DAILY [facility] Administration Impression 1. ASA 2. anemia 3. rash 4. CML- on tasigna 5. hypothyroidism 6. HTN 7. chol 8. CHF 9. COPD 10. hyperkalemia 11. sepsis 12. new onset a-fib 13. peripheral eosinophilia Plan somewhat improved numbers eosinophilia requires evaluation, urine eos negative but sensitivity of test is poor monitor renal function lachydrin to dry skin MV
--- NOTE | 2017-07-16 13:20 | PN ---
Progress Note, Physician History of Present Illness: stable improving - Current Medication List Current Medications: Active Medications Acetaminophen (Tylenol -) 650 mg PO Q6H PRN PRN Reason: PAIN Last Admin: 07/16/17 10:47 Dose: 650 mg Arformoterol Tartrate (Brovana (Restricted To Pulmonology/Resp) -) 1 amp NEB BID [facility] Last Admin: 07/16/17 10:39 Dose: Not Given Diphenhydramine HCl (Benadryl -) 25 mg PO Q6H PRN PRN Reason: FOR ITCHING Last Admin: 07/15/17 22:21 Dose: 25 mg Ferrous Sulfate (Feosol -) 325 mg PO BID [facility] Last Admin: 07/16/17 09:49 Dose: 325 mg Hydroxyzine HCl (Atarax -) 10 mg PO Q6HPO [facility] Last Admin: 07/16/17 12:03 Dose: 10 mg Insulin Aspart (Novolog Vial Sliding Scale -) 1 vial SQ ACHS [facility] PRN Reason: Protocol Last Admin: 07/16/17 12:02 Dose: 4 units Levothyroxine Sodium (Synthroid -) 25 mcg PO AM [facility] Last Admin: 07/16/17 06:36 Dose: 25 mcg Patient's Own Medication (Non- Formulary) (Tasigna 150mg) 300 mg PO Q12H [facility] Last Admin: 07/16/17 09:50 Dose: 300 mg Oxycodone HCl (Roxicodone -) 10 mg PO Q4H PRN Last Admin: 07/16/17 10:47 Dose: 10 mg Pantoprazole Sodium (Protonix -) 40 mg PO DAILY [facility] Last Admin: 07/16/17 09:49 Dose: 40 mg - Objective Vital Signs: Vital Signs Temperature 97.6 F 07/16/17 10:00 Pulse Rate 90 07/16/17 10:00 Respiratory Rate 20 07/16/17 10:00 Blood Pressure 133/65 07/16/17 10:00 O2 Sat by Pulse Oximetry (%) 99 07/16/17 09:00 Constitutional: Yes: Calm, Obese Cardiovascular: Yes: Regular Rate and Rhythm Respiratory: Yes: Regular Gastrointestinal: Yes: Normal Bowel Sounds, Soft Musculoskeletal: Yes: Other Extremities: Yes: Other Neurological: Yes: Alert Psychiatric: Yes: Alert, Oriented Labs: CBC, BMP 07/16/17 06:35 07/16/17 06:35 INR, PTT INR 5.74 (0.82-1.09) H* D 07/16/17 06:35 Assessment/Plan . 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
[2017-07-16] MEDS ORDERED: NYSTATIN 100,000 UNIT/GM TOPICAL CREAM 15 GM TUBE TP SCH (13:30)
[2017-07-16] MEDS ORDERED: morphine SULFATE IMMEDIATE RELEASE 30 MG TAB PO ONE (15:14)
[2017-07-16] MEDS: AMMONIUM LACTATE 12% LOTION 225 GM BOTTLE TP SCH (18:01)
[2017-07-16] MEDS: morphine SO4 SUSTAINED ACTING 15 MG TABLET.SA PO SCH (22:07)
[2017-07-16] MEDS: NYSTATIN POWDER 100,000 UNITS/GM - 15 GM TOPICAL POWDER TP SCH (22:08)
[2017-07-17] MEDS: hydrOXYzine HCL 10 MG TABLET PO SCH ×4 (01:34→17:07)
[2017-07-17] MEDS: oxyCODONE HCL 5 MG TABLET PO PRN ×3 (03:44→17:06)
[2017-07-17] MEDS: LEVOTHYROXINE NA 25 MCG TABLET (FP) PO SCH (06:40)
[2017-07-17] MEDS: INSULIN SLIDING SCALE (NOVOLOG) 1 VIAL SQ SCH ×4 (06:40→22:27)
[2017-07-17 07:18] LABS: BASOPHIL 0.3 % (0-2.0); EOSINOPHIL 20.2 % (0-4.5); MCH 29.1 pg (25.7-33.7); MCHC 33.1 g/dl (32.0-36.0); MEAN CELL VOLUME 87.9 fl (80-96); MEAN PLT VOLUME 7.5 fl (7.5-11.1); NEUTROPHILS 47.8 % (42.8-82.8); PLATELET COUNT 203 K/MM3 (134-434); RDW 18.8 % (11.6-15.6); WHITE BLOOD COUNT 6.9 K/mm3 (4.0-10.0)
[2017-07-17 07:57] LABS: ALBUMIN 1.8 g/dl (3.4-5.0); ANION GAP 9 (8-16); CALCIUM 7.5 mg/dL (8.5-10.1); CO2 20 mmol/L (21-32); GLUCOSE,RANDOM 159 mg/dL (74-106); MAGNESIUM 1.9 mg/dL (1.8-2.4)
[2017-07-17 08:00] LABS: ALK PHOS 98 U/L (45-117); BILIRUBIN,TOTAL 0.5 mg/dL (0.2-1.0); CREATININE 1.7 mg/dL (0.55-1.02); SGOT/AST 9 U/L (15-37); SGPT/ALT 10 U/L (12-78); TOT PROT 6.2 g/dl (6.4-8.2)
[2017-07-17 08:24] LABS: PROTHROMBIN TIME (PATIENT) 61.6 SEC (9.98-11.88)
[2017-07-17 08:45] LABS: INR 5.45 (0.82-1.09)
[2017-07-17] MEDS: ARFORMOTEROL TARTRATE 15 MCG/2 ML VIAL NEB SCH ×2 (10:33→22:34)
[2017-07-17] MEDS: morphine SO4 SUSTAINED ACTING 15 MG TABLET.SA PO SCH ×2 (11:17→22:00)
[2017-07-17] MEDS: FERROUS SO4 325 MG TABLET (FP) PO SCH ×2 (11:18→21:59)
[2017-07-17] MEDS: PANTOPRAZOLE 40 MG TABLET (FP) PO SCH (11:18)
[2017-07-17] MEDS: FLUOCINONIDE 0.05% TOP OINT (60 GM TUBE) TP SCH ×2 (11:18→23:44)
[2017-07-17] MEDS: TASIGNA 150 MG PO SCH ×2 (11:19→21:58)
[2017-07-17] MEDS: NYSTATIN POWDER 100,000 UNITS/GM - 15 GM TOPICAL POWDER TP SCH ×2 (11:19→23:44)
[2017-07-17] MEDS: AMMONIUM LACTATE 12% LOTION 225 GM BOTTLE TP SCH (11:19)
[2017-07-17] MEDS ORDERED: INSULIN (NOVOLOG) ASPART 100 UNITS/ML 10ML VIAL ONE ×2 (11:26→20:36)
--- NOTE | 2017-07-17 14:58 | PN ---
Progress Note, Physician Chief Complaint: Ms Hernandez says she did not sleep well last night and is tired today. However says she is doing well and denies cp, sob, n/v. Currently says her skin is not bothering her. - Current Medication List Current Medications: Active Medications Acetaminophen (Tylenol -) 650 mg PO Q6H PRN PRN Reason: PAIN Last Admin: 07/16/17 10:47 Dose: 650 mg Arformoterol Tartrate (Brovana (Restricted To Pulmonology/Resp) -) 1 amp NEB BID [facility] Last Admin: 07/17/17 10:33 Dose: Not Given Diphenhydramine HCl (Benadryl -) 25 mg PO Q6H PRN PRN Reason: FOR ITCHING Last Admin: 07/15/17 22:21 Dose: 25 mg Ferrous Sulfate (Feosol -) 325 mg PO BID [facility] Last Admin: 07/17/17 11:18 Dose: 325 mg Fluocinonide (Lidex 0.05% Ointment -) 1 applic TP BID [facility] Last Admin: 07/17/17 11:18 Dose: 1 applic Hydroxyzine HCl (Atarax -) 10 mg PO Q6HPO [facility] Last Admin: 07/17/17 13:39 Dose: 10 mg Insulin Aspart (Novolog Vial Sliding Scale -) 1 vial SQ ACHS [facility] PRN Reason: Protocol Last Admin: 07/17/17 11:30 Dose: 4 units Lactic Acid (Lac-Hydrin 12) 1 applic TP DAILY [facility] Last Admin: 07/17/17 11:19 Dose: 1 applic Levothyroxine Sodium (Synthroid -) 25 mcg PO AM [facility] Last Admin: 07/17/17 06:40 Dose: 25 mcg Morphine Sulfate (Ms Contin -) 15 mg PO BID [facility] Last Admin: 07/17/17 11:17 Dose: 15 mg Patient's Own Medication (Non- Formulary) (Tasigna 150mg) 300 mg PO Q12H [facility] Last Admin: 07/17/17 11:19 Dose: 300 mg Nystatin (Nystop Powder -) 1 applic TP BID [facility] Last Admin: 07/17/17 11:19 Dose: 1 applic Oxycodone HCl (Roxicodone -) 10 mg PO Q4H PRN Last Admin: 07/17/17 08:38 Dose: 10 mg Pantoprazole Sodium (Protonix -) 40 mg PO DAILY [facility] Last Admin: 07/17/17 11:18 Dose: 40 mg - Objective Vital Signs: Vital Signs Temperature 36.4 C L 07/17/17 13:42 Pulse Rate 90 07/17/17 10:00 Respiratory Rate 18 07/17/17 10:00 Blood Pressure 136/51 07/17/17 10:00 O2 Sat by Pulse Oximetry (%) 96 07/17/17 13:05 Constitutional: Yes: No Distress, Calm, Obese Cardiovascular: Yes: Regular Rate and Rhythm. No: Gallop, Murmur, Rub Respiratory: Yes: Regular, CTA Bilaterally. No: Rales, Rhonchi, Wheezes Gastrointestinal: Yes: Normal Bowel Sounds, Soft. No: Distention, Tenderness Extremities: Yes: Erythema Edema: Yes Edema: LLE: 2+, RLE: 2+ Integumentary: Yes: Rash Labs: CBC, BMP 07/17/17 06:00 07/17/17 06:00 INR, PTT INR 5.45 (0.82-1.09) H* 07/17/17 06:00 Problem List - Problems (1) Diabetes Code(s): E11.9 - TYPE 2 DIABETES MELLITUS WITHOUT COMPLICATIONS (2) CML (chronic myelocytic leukemia) Code(s): C92.10 - CHRONIC MYELOID LEUK, BCR/ABL-POSITIVE, NOT ACHIEVE REMIS (3) Anemia Code(s): D64.9 - ANEMIA, UNSPECIFIED Qualifiers: Anemia type: other cause Other causes of anemia: chronic disease, other Qualified Code(s): D63.8 - Anemia in other chronic diseases classified elsewhere (4) Hypothyroid Code(s): E03.9 - HYPOTHYROIDISM, UNSPECIFIED (5) COPD (chronic obstructive pulmonary disease) Code(s): J44.9 - CHRONIC OBSTRUCTIVE PULMONARY DISEASE, UNSPECIFIED (6) CHF (congestive heart failure) Code(s): I50.9 - HEART FAILURE, UNSPECIFIED Qualifiers: Congestive heart failure type: diastolic Congestive heart failure chronicity: chronic Qualified Code(s): I50.32 - Chronic diastolic (congestive ) heart failure (7) Sepsis Code(s): A41.9 - SEPSIS, UNSPECIFIED ORGANISM Qualifiers: Sepsis type: Escherichia coli Qualified Code(s): A41.51 - Sepsis due to Escherichia coli [E. coli] (8) Drug induced rash with eosinophilia and systemic symptoms Code(s): L27.0 - GEN SKIN ERUPTION DUE TO DRUGS AND MEDS TAKEN INTERNALLY; D72.1 - EOSINOPHILIA; T50.905A - ADVERSE EFFECT OF UNSP DRUG/MEDS/BIOL SUBST, INIT (9) ASA (acute kidney injury) Code(s): N17.9 - ACUTE KIDNEY FAILURE, UNSPECIFIED (10) Atrial fibrillation with RVR Code(s): I48.91 - UNSPECIFIED ATRIAL FIBRILLATION (11) UTI (urinary tract infection) Code(s): N39.0 - URINARY TRACT INFECTION, SITE NOT SPECIFIED Qualifiers: Urinary tract infection type: acute cystitis Hematuria presence: without hematuria Qualified Code(s): N30.00 - Acute cystitis without hematuria Assessment/Plan (1) Atrial fibrillation with RVR Assessment/Plan: -currently in sinus rhythm on exam -holding coumadin secondary to elevated INR Code(s): I48.91 - UNSPECIFIED ATRIAL FIBRILLATION (2) Sepsis Assessment/Plan: -resolved Code(s): A41.9 - SEPSIS, UNSPECIFIED ORGANISM Qualifiers: Sepsis type: Escherichia coli Qualified Code(s): A41.51 - Sepsis due to Escherichia coli [E. coli]; A41.51 - Sepsis due to Escherichia coli [E. coli]; A41.51 - Sepsis due to Escherichia coli [E. coli] (3) UTI (urinary tract infection) Assessment/Plan: -s/p treatment Code(s): N39.0 - URINARY TRACT INFECTION, SITE NOT SPECIFIED Qualifiers: Urinary tract infection type: acute cystitis Hematuria presence: without hematuria Qualified Code(s): N30.00 - Acute cystitis without hematuria; N30.00 - Acute cystitis without hematuria (4) ASA (acute kidney injury) Assessment/Plan: -nephrology following -improving Code(s): N17.9 - ACUTE KIDNEY FAILURE, UNSPECIFIED (5) Drug induced rash with eosinophilia and systemic symptoms Assessment/Plan: -improving -continue atarax -dermatology consulted and planning for biopsy Code(s): L27.0 - GEN SKIN ERUPTION DUE TO DRUGS AND MEDS TAKEN INTERNALLY D72.1 - EOSINOPHILIA T50.905A - ADVERSE EFFECT OF UNSP DRUG/MEDS/BIOL SUBST, INIT (6) Anemia Assessment/Plan: -continue iron -at baseline Code(s): D64.9 - ANEMIA, UNSPECIFIED Qualifiers: Anemia type: other cause Other causes of anemia: acute posthemorrhagic Qualified Code(s): D62 - Acute posthemorrhagic anemia; D62 - Acute posthemorrhagic anemia (7) CHF (congestive heart failure) Assessment/Plan: -not in exacerbation -holding torsemide secondary to renal function -monitors I/Os Code(s): I50.9 - HEART FAILURE, UNSPECIFIED Qualifiers: Congestive heart failure type: diastolic Congestive heart failure chronicity: chronic Qualified Code(s): I50.32 - Chronic diastolic ( congestive) heart failure; I50.32 - Chronic diastolic (congestive) heart failure ; I50.32 - Chronic diastolic (congestive) heart failure; I50.32 - Chronic diastolic (congestive) heart failure (8) CML (chronic myelocytic leukemia) Assessment/Plan: -hematology following and case discussed -tasigna restarted Code(s): C92.10 - CHRONIC MYELOID LEUK, BCR/ABL-POSITIVE, NOT ACHIEVE REMIS (9) COPD (chronic obstructive pulmonary disease) Assessment/Plan: -not in exacerbation -continue current regimen Code(s): J44.9 - CHRONIC OBSTRUCTIVE PULMONARY DISEASE, UNSPECIFIED (10) Diabetes Assessment/Plan: -continue current management Code(s): E11.9 - TYPE 2 DIABETES MELLITUS WITHOUT COMPLICATIONS (11) Hypothyroid Assessment/Plan: -continue synthroid Code(s): E03.9 - HYPOTHYROIDISM, UNSPECIFIED
--- NOTE | 2017-07-17 15:01 | PN ---
Progress Note, Physician History of Present Illness: stable skin better tired - Current Medication List Current Medications: Active Medications Acetaminophen (Tylenol -) 650 mg PO Q6H PRN PRN Reason: PAIN Last Admin: 07/16/17 10:47 Dose: 650 mg Arformoterol Tartrate (Brovana (Restricted To Pulmonology/Resp) -) 1 amp NEB BID [facility] Last Admin: 07/17/17 10:33 Dose: Not Given Diphenhydramine HCl (Benadryl -) 25 mg PO Q6H PRN PRN Reason: FOR ITCHING Last Admin: 07/15/17 22:21 Dose: 25 mg Ferrous Sulfate (Feosol -) 325 mg PO BID [facility] Last Admin: 07/17/17 11:18 Dose: 325 mg Fluocinonide (Lidex 0.05% Ointment -) 1 applic TP BID [facility] Last Admin: 07/17/17 11:18 Dose: 1 applic Hydroxyzine HCl (Atarax -) 10 mg PO Q6HPO [facility] Last Admin: 07/17/17 13:39 Dose: 10 mg Insulin Aspart (Novolog Vial Sliding Scale -) 1 vial SQ ACHS [facility] PRN Reason: Protocol Last Admin: 07/17/17 11:30 Dose: 4 units Lactic Acid (Lac-Hydrin 12) 1 applic TP DAILY [facility] Last Admin: 07/17/17 11:19 Dose: 1 applic Levothyroxine Sodium (Synthroid -) 25 mcg PO AM [facility] Last Admin: 07/17/17 06:40 Dose: 25 mcg Morphine Sulfate (Ms Contin -) 15 mg PO BID [facility] Last Admin: 07/17/17 11:17 Dose: 15 mg Patient's Own Medication (Non- Formulary) (Tasigna 150mg) 300 mg PO Q12H [facility] Last Admin: 07/17/17 11:19 Dose: 300 mg Nystatin (Nystop Powder -) 1 applic TP BID [facility] Last Admin: 07/17/17 11:19 Dose: 1 applic Oxycodone HCl (Roxicodone -) 10 mg PO Q4H PRN Last Admin: 07/17/17 08:38 Dose: 10 mg Pantoprazole Sodium (Protonix -) 40 mg PO DAILY [facility] Last Admin: 07/17/17 11:18 Dose: 40 mg - Objective Vital Signs: Vital Signs Temperature 97.5 F L 07/17/17 13:42 Pulse Rate 90 07/17/17 10:00 Respiratory Rate 18 07/17/17 10:00 Blood Pressure 136/51 07/17/17 10:00 O2 Sat by Pulse Oximetry (%) 96 07/17/17 13:05 Constitutional: Yes: Calm, Mild Distress, Obese Cardiovascular: Yes: Regular Rate and Rhythm Respiratory: Yes: Regular, CTA Bilaterally Musculoskeletal: Yes: Other Extremities: Yes: Other Neurological: Yes: Alert, Oriented Psychiatric: Yes: Alert, Oriented Labs: CBC, BMP 07/17/17 06:00 07/17/17 06:00 INR, PTT INR 5.45 (0.82-1.09) H* 07/17/17 06:00 Assessment/Plan . Assessment/Plan (1) Atrial fibrillation with RVR Code(s): I48.91 - UNSPECIFIED ATRIAL FIBRILLATION (2) Sepsis Code(s): A41.9 - SEPSIS, UNSPECIFIED ORGANISM Qualifiers: Sepsis type: Escherichia coli Qualified Code(s): A41.51 - Sepsis due to Escherichia coli [E. coli]; A41.51 - Sepsis due to Escherichia coli [E. coli]; A41.51 - Sepsis due to Escherichia coli [E. coli] (3) UTI (urinary tract infection) Code(s): N39.0 - URINARY TRACT INFECTION, SITE NOT SPECIFIED Qualifiers: Urinary tract infection type: acute cystitis Hematuria presence: without hematuria Qualified Code(s): N30.00 - Acute cystitis without hematuria; N30.00 - Acute cystitis without hematuria (4) ASA (acute kidney injury) Code(s): N17.9 - ACUTE KIDNEY FAILURE, UNSPECIFIED (5) Drug induced rash with eosinophilia and systemic symptoms Code(s): L27.0 - GEN SKIN ERUPTION DUE TO DRUGS AND MEDS TAKEN INTERNALLY D72.1 - EOSINOPHILIA T50.905A - ADVERSE EFFECT OF UNSP DRUG/MEDS/BIOL SUBST, INIT (6) Anemia Code(s): D64.9 - ANEMIA, UNSPECIFIED Qualifiers: Anemia type: other cause Other causes of anemia: acute posthemorrhagic Qualified Code(s): D62 - Acute posthemorrhagic anemia; D62 - Acute posthemorrhagic anemia (7) CHF (congestive heart failure) Code(s): I50.9 - HEART FAILURE, UNSPECIFIED Qualifiers: Congestive heart failure type: diastolic Congestive heart failure chronicity: chronic Qualified Code(s): I50.32 - Chronic diastolic ( congestive) heart failure; I50.32 - Chronic diastolic (congestive) heart failure ; I50.32 - Chronic diastolic (congestive) heart failure; I50.32 - Chronic diastolic (congestive) heart failure (8) CML (chronic myelocytic leukemia) Code(s): C92.10 - CHRONIC MYELOID LEUK, BCR/ABL-POSITIVE, NOT ACHIEVE REMIS (9) COPD (chronic obstructive pulmonary disease) Code(s): J44.9 - CHRONIC OBSTRUCTIVE PULMONARY DISEASE, UNSPECIFIED (10) Diabetes Code(s): E11.9 - TYPE 2 DIABETES MELLITUS WITHOUT COMPLICATIONS (11) Hypothyroid Code(s): E03.9 - HYPOTHYROIDISM, UNSPECIFIED plan stable off of abx continue curent mgmt skin care dermatology planning skin biopsy rest as per primary team
--- NOTE | 2017-07-17 16:15 | PN ---
Progress Note, Physician History of Present Illness: Pt seen and examined at bedside. She is awake and alert. She still has a rash. - Current Medication List Current Medications: Active Medications Acetaminophen (Tylenol -) 650 mg PO Q6H PRN PRN Reason: PAIN Last Admin: 07/16/17 10:47 Dose: 650 mg Arformoterol Tartrate (Brovana (Restricted To Pulmonology/Resp) -) 1 amp NEB BID [facility] Last Admin: 07/17/17 10:33 Dose: Not Given Diphenhydramine HCl (Benadryl -) 25 mg PO Q6H PRN PRN Reason: FOR ITCHING Last Admin: 07/15/17 22:21 Dose: 25 mg Ferrous Sulfate (Feosol -) 325 mg PO BID [facility] Last Admin: 07/17/17 11:18 Dose: 325 mg Fluocinonide (Lidex 0.05% Ointment -) 1 applic TP BID [facility] Last Admin: 07/17/17 11:18 Dose: 1 applic Hydroxyzine HCl (Atarax -) 10 mg PO Q6HPO [facility] Last Admin: 07/17/17 13:39 Dose: 10 mg Insulin Aspart (Novolog Vial Sliding Scale -) 1 vial SQ ACHS [facility] PRN Reason: Protocol Last Admin: 07/17/17 11:30 Dose: 4 units Lactic Acid (Lac-Hydrin 12) 1 applic TP DAILY [facility] Last Admin: 07/17/17 11:19 Dose: 1 applic Levothyroxine Sodium (Synthroid -) 25 mcg PO AM [facility] Last Admin: 07/17/17 06:40 Dose: 25 mcg Morphine Sulfate (Ms Contin -) 15 mg PO BID [facility] Last Admin: 07/17/17 11:17 Dose: 15 mg Patient's Own Medication (Non- Formulary) (Tasigna 150mg) 300 mg PO Q12H [facility] Last Admin: 07/17/17 11:19 Dose: 300 mg Nystatin (Nystop Powder -) 1 applic TP BID [facility] Last Admin: 07/17/17 11:19 Dose: 1 applic Oxycodone HCl (Roxicodone -) 10 mg PO Q4H PRN Last Admin: 07/17/17 08:38 Dose: 10 mg Pantoprazole Sodium (Protonix -) 40 mg PO DAILY [facility] Last Admin: 07/17/17 11:18 Dose: 40 mg - Objective Vital Signs: Vital Signs Temperature 97.5 F L 07/17/17 13:42 Pulse Rate 90 07/17/17 10:00 Respiratory Rate 18 07/17/17 10:00 Blood Pressure 136/51 07/17/17 10:00 O2 Sat by Pulse Oximetry (%) 96 07/17/17 13:05 Constitutional: Yes: Calm Eyes: Yes: Conjunctiva Clear HENT: Yes: Atraumatic Neck: Yes: Supple Cardiovascular: Yes: S1, S2 Respiratory: Yes: CTA Bilaterally, On Nasal O2 Gastrointestinal: Yes: Soft, Abdomen, Obese Genitourinary: Yes: Hill Present Musculoskeletal: Yes: WNL Edema: Yes Edema: LLE: 1+, RLE: 1+ Neurological: Yes: Oriented Psychiatric: Yes: Oriented Labs: CBC, BMP 07/17/17 06:00 07/17/17 06:00 INR, PTT INR 5.45 (0.82-1.09) H* 07/17/17 06:00 Problem List - Problems (1) Diabetes Code(s): E11.9 - TYPE 2 DIABETES MELLITUS WITHOUT COMPLICATIONS (2) CML (chronic myelocytic leukemia) Code(s): C92.10 - CHRONIC MYELOID LEUK, BCR/ABL-POSITIVE, NOT ACHIEVE REMIS (3) Anemia Code(s): D64.9 - ANEMIA, UNSPECIFIED Qualifiers: Anemia type: other cause Other causes of anemia: chronic disease, other Qualified Code(s): D63.8 - Anemia in other chronic diseases classified elsewhere (4) Cellulitis of leg, left Code(s): L03.116 - CELLULITIS OF LEFT LOWER LIMB (5) CHF (congestive heart failure) Code(s): I50.9 - HEART FAILURE, UNSPECIFIED Qualifiers: Congestive heart failure type: diastolic Congestive heart failure chronicity: chronic Qualified Code(s): I50.32 - Chronic diastolic (congestive ) heart failure (6) Acute renal insufficiency Code(s): N28.9 - DISORDER OF KIDNEY AND URETER, UNSPECIFIED (7) Hyperkalemia Code(s): E87.5 - HYPERKALEMIA (8) MARIA ELENA positive Code(s): R76.8 - OTHER SPECIFIED ABNORMAL IMMUNOLOGICAL FINDINGS IN SERUM (9) ASA (acute kidney injury) Code(s): N17.9 - ACUTE KIDNEY FAILURE, UNSPECIFIED Assessment/Plan Current Medications Generic Name Dose Route Start Last Admin Trade Name Freq PRN Reason Stop Dose Admin Acetaminophen 650 mg 07/07/17 19:54 07/16/17 10:47 Tylenol - PO 650 mg Q6H PRN Administration PAIN Arformoterol Tartrate 1 amp 07/08/17 12:30 07/17/17 10:33 Brovana (Restricted To Pulmonology/Resp) - NEB Not Given BID [facility] Diphenhydramine HCl 25 mg 07/12/17 11:06 07/15/17 22:21 Benadryl - PO 25 mg Q6H PRN Administration FOR ITCHING Ferrous Sulfate 325 mg 07/07/17 22:00 07/17/17 11:18 Feosol - PO 325 mg BID [facility] Administration Fluocinonide 1 applic 07/17/17 10:15 07/17/17 11:18 Lidex 0.05% Ointment - TP 1 applic BID [facility] Administration Hydroxyzine HCl 10 mg 07/13/17 14:15 07/17/17 13:39 Atarax - PO 10 mg Q6HPO [facility] Administration Insulin Aspart 1 vial 07/07/17 22:00 07/17/17 11:30 Novolog Vial Sliding Scale - SQ 4 units ACHS [facility] Administration Protocol Lactic Acid 1 applic 07/16/17 14:45 07/17/17 11:19 Lac-Hydrin 12 TP 1 applic DAILY [facility] Administration Levothyroxine Sodium 25 mcg 07/08/17 07:00 07/17/17 06:40 Synthroid - PO 25 mcg AM [facility] Administration Morphine Sulfate 15 mg 07/16/17 22:00 07/17/17 11:17 Ms Contin - PO 15 mg BID [facility] Administration Patient's Own 300 mg 07/13/17 10:30 07/17/17 11:19 Medication (Non- PO 300 mg Formulary) (Tasigna Q12H [facility] Administration 150mg) Nystatin 1 applic 07/16/17 22:00 07/17/17 11:19 Nystop Powder - TP 1 applic BID [facility] Administration Oxycodone HCl 10 mg 07/07/17 20:00 07/17/17 08:38 Roxicodone - PO 10 mg Q4H PRN Administration Pantoprazole Sodium 40 mg 07/12/17 10:45 07/17/17 11:18 Protonix - PO 40 mg DAILY [facility] Administration Impression 1. ASA 2. anemia 3. rash 4. CML 5. hypothyroidism 6. HTN 7. chol 8. CHF 9. COPD 10. hyperkalemia 11. sepsis 12. new onset a-fib 13. peripheral eosinophilia Plan - renal function is improving - pt refused kidney biopsy - repeat labs in am - diuretics on hold, will evaluate daily - jarek on hold - likely asa from atn - will follow closely Dr Sanchez
--- NOTE | 2017-07-17 18:22 | CONSULT ---
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 Patient currently has erythema and exfoliation of skin generalized. patient is now on vaseline and lidex oint and a consent for biopsy was obtained. a shave biopsy of skin was performed and the area was covered with gauze and tape. specimen sent to pathology l please clean area and change bandage daily will follow up on results with pathologist
[2017-07-18] MEDS: hydrOXYzine HCL 10 MG TABLET PO SCH ×4 (00:07→17:04)
[2017-07-18] MEDS: oxyCODONE HCL 5 MG TABLET PO PRN ×2 (00:15→17:04)
[2017-07-18] MEDS ORDERED: PT OWN MED DRAWER 7, Y5N ONE (00:18)
[2017-07-18] MEDS ORDERED: ACETAMINOPHEN 325 MG TABLET (FP) PO PRN (03:25)
[2017-07-18] MEDS ORDERED: INSULIN (NOVOLOG) ASPART 100 UNITS/ML 10ML VIAL ONE ×3 (06:55→21:54)
[2017-07-18] MEDS: LEVOTHYROXINE NA 25 MCG TABLET (FP) PO SCH (07:05)
[2017-07-18] MEDS: INSULIN SLIDING SCALE (NOVOLOG) 1 VIAL SQ SCH ×4 (07:05→21:39)
[2017-07-18 07:58] LABS: BASOPHIL 0.7 % (0-2.0); EOSINOPHIL 7.1 % (0-4.5); MCHC 32.8 g/dl (32.0-36.0); MEAN CELL VOLUME 88.4 fl (80-96); MEAN PLT VOLUME 7.3 fl (7.5-11.1); NEUTROPHILS 71.5 % (42.8-82.8); PLATELET COUNT 203 K/MM3 (134-434); RDW 18.8 % (11.6-15.6); WHITE BLOOD COUNT 5.4 K/mm3 (4.0-10.0)
--- NOTE | 2017-07-18 08:25 | CONSULT ---
Consult Consult Specialty:: Rheumatology - History of Present Illness History of Present Illness: 66 year female with history of hypertension, hyperlipidemia, diabetes type II, hypothyroidism and CML of Nilotinibm, admitted with subjective fever, skin rash , anemia and fatigue. I saw her on 07/01/17 for elevated creatinine and positive MARIA ELENA, probable false positive test. During the previous hospitalization the patient developed a pruritic macular rash and exfoliative erythroderma probably to a drug eruption and was improving with steroids. At the present time she has erythema and diffuse exfoliation. Yesterday she had a skin biopsy by Dr. Hagen. The patient reports that after she was discharged from the hospital she had chills, subjective fever and otherwise she was feeling well. Since she was admitted she has not have fever, On admission she was found to have Hgb 7.2, HCT 22 ESR 39 and Creatinine of 2.9 with normal urinalysis. Creatinine improved to 1.3. Previous work-up: MARIA ELENA 1:80 with homogeneous pattern and 1:320 with nucleolar pattern. Anti-DNA ds, ANCA, myeloperoxidase and proteinase-3 were negative. YANELIS with M. spike of 0.9. and CH50 normal (52). The patient denies previous history of skin rash, oral ulcers, Sicca syndrome, Raynaud's phenomenon or joint pain. 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 History of Recent Travel: No Home Medications - Allergies Allergies/Adverse Reactions: Allergies Allergy/AdvReac Type Severity Reaction Status Date / Time metoprolol Allergy Intermediate Rash Verified 06/20/17 10:27 Penicillins Allergy Verified 06/20/17 10:27 - Home Medications Home Medications: Ambulatory Orders Aa/Hydrolyzed Collagen, Whey [Lps 15-30 Liquid] 30 ml PO TID 06/20/17 Acetaminophen [Tylenol] 650 mg PO QID PRN 06/20/17 Albuterol 0.083% Nebulizer Pamella [Ventolin 0.083% Nebulizer Soln -] 1 neb NEB QID 06/20/17 Arformoterol Tartrate [Brovana] 15 mcg IH BID 06/20/17 Bisacodyl [Bisacodyl -] 10 mg PO DAILY PRN 06/20/17 Collagenase Clostridium Hist. [Santyl -] 1 applic TP DAILY 06/20/17 Docusate Sodium [Colace -] 300 mg PO HS 06/20/17 Enoxaparin [Lovenox -] 40 mg SQ DAILY 06/20/17 Ferrous Sulfate 325 mg PO BID 06/20/17 Gabapentin [Neurontin [DO NOT STOCK]] 600 mg PO TID 06/20/17 Insulin (Levemir) [Levemir Flexpen -] 10 units SQ HS 06/20/17 Insulin Lispro [Humalog] 0 unit SQ ASDIR 06/20/17 Levothyroxine [Synthroid -] 25 mcg PO DAILY 06/20/17 Magnesium Hydroxide [Milk of Magnesia -] 30 ml PO DAILY PRN 06/20/17 Metformin HCl 500 mg PO BID 06/20/17 Na Phos,M-B/Na Phos,Di-Ba [Fleet Enema] 133 ml RC ASDIR 06/20/17 Nilotinib HCl [Tasigna] 150 mg PO BID 06/20/17 Oxycodone HCl 10 mg PO Q4H 06/20/17 Polyethylene Glycol 3350 [Miralax 119 gm Btl -] 17 gm PO DAILY 06/20/17 Sennosides [Senna] 2 tab PO DAILY 06/20/17 Tasigna 300 mg PO BIDAC 06/22/17 Torsemide [Demadex -] 20 mg PO DAILY tablet 07/03/17 Family Disease History - Family Disease History Family Disease History: CA: Father ( 69 liver cancer), Mother ( 68 stomach cancer, schizophrenia) Review of Systems - Review of Systems Constitutional: reports: Malaise Eyes: reports: No Symptoms HENT: reports: No Symptoms Neck: reports: No Symptoms Cardiovascular: reports: No Symptoms Respiratory: reports: No Symptoms Gastrointestinal: reports: No Symptoms Physical Exam Vital Signs: Vital Signs Temperature 97.5 F L 07/18/17 05:17 Pulse Rate 83 07/18/17 05:17 Respiratory Rate 20 07/18/17 05:17 Blood Pressure 124/67 07/18/17 05:17 O2 Sat by Pulse Oximetry (%) 95 07/17/17 21:00 Constitutional: Yes: Mild Distress Eyes: Yes: WNL HENT: Yes: WNL Neck: Yes: WNL Cardiovascular: Yes: WNL Respiratory: Yes: WNL Gastrointestinal: Yes: WNL Musculoskeletal: Yes: Other (No active joints) Integumentary: Yes: Other (Diffuse exfoliative dermatitis.) Labs: CBC, BMP 07/18/17 06:00 Laboratory Tests 07/11/17 07/12/17 07/18/17 18:40 05:35 06:00 WBC 5.4 RBC 2.86 L Hgb 8.3 L Hct 25.3 L MCV 88.4 MCH 29.0 MCHC 32.8 RDW 18.8 H Plt Count 203 MPV 7.3 L Lymphocytes % 13.8 D Monocytes % 6.9 Eosinophils % 7.1 H Urine Color Yellow Urine Appearance Slcloudy Urine pH 5.0 Ur Specific [place] 1.017 Urine Protein Negative Urine Glucose (UA) Negative Urine Ketones Negative Urine Blood Negative Urine Nitrite Negative Urine Bilirubin Negative Urine Urobilinogen Negative Ur Leukocyte Esterase Trace H D MARIA ELENA Screen Positive H MARIA ELENA Homogeneous Pattern 1:80 MARIA ELENA Nucleolar Pattern 1:80 Problem List - Problems (1) MARIA ELENA positive Assessment/Plan: MARIA ELENA positive at low titer and other serology negative. Complement normal. On admission elevation of creatinine that improved and normal urinalysis. Exfoliative dermatitis probably secondary to drug reaction. Probable false positive MARIA ELENA. It is unlikely that she has lupus or other connective tissue disease. No further work-up is required for this problem. Code(s): R76.8 - OTHER SPECIFIED ABNORMAL IMMUNOLOGICAL FINDINGS IN SERUM
[2017-07-18 08:29] LABS: ANION GAP 10 (8-16); CALCIUM 7.6 mg/dL (8.5-10.1); CO2 18 mmol/L (21-32); CREATININE 1.5 mg/dL (0.55-1.02); GLUCOSE,RANDOM 171 mg/dL (74-106); MAGNESIUM 1.8 mg/dL (1.8-2.4)
[2017-07-18 08:50] LABS: INR 4.78 (0.82-1.09)
[2017-07-18] MEDS: AMMONIUM LACTATE 12% LOTION 225 GM BOTTLE TP SCH (09:01)
[2017-07-18] MEDS: morphine SO4 SUSTAINED ACTING 15 MG TABLET.SA PO SCH ×2 (09:01→21:42)
[2017-07-18] MEDS: PANTOPRAZOLE 40 MG TABLET (FP) PO SCH (09:01)
[2017-07-18] MEDS: FERROUS SO4 325 MG TABLET (FP) PO SCH ×2 (09:01→21:39)
[2017-07-18] MEDS: NYSTATIN POWDER 100,000 UNITS/GM - 15 GM TOPICAL POWDER TP SCH ×2 (09:03→21:38)
[2017-07-18] MEDS: FLUOCINONIDE 0.05% TOP OINT (60 GM TUBE) TP SCH ×2 (09:04→21:39)
[2017-07-18] MEDS: TASIGNA 150 MG PO SCH ×2 (09:40→21:40)
[2017-07-18] MEDS: ARFORMOTEROL TARTRATE 15 MCG/2 ML VIAL NEB SCH ×2 (11:37→22:50)
--- NOTE | 2017-07-18 15:27 | PN ---
Progress Note, Physician History of Present Illness: stable no new events skin note noted - Current Medication List Current Medications: Active Medications Acetaminophen (Tylenol -) 650 mg PO Q6H PRN PRN Reason: PAIN Arformoterol Tartrate (Brovana (Restricted To Pulmonology/Resp) -) 1 amp NEB BID [facility] Last Admin: 07/18/17 11:37 Dose: 1 amp Diphenhydramine HCl (Benadryl -) 25 mg PO Q6H PRN PRN Reason: FOR ITCHING Last Admin: 07/15/17 22:21 Dose: 25 mg Ferrous Sulfate (Feosol -) 325 mg PO BID [facility] Last Admin: 07/18/17 09:01 Dose: 325 mg Fluocinonide (Lidex 0.05% Ointment -) 1 applic TP BID [facility] Last Admin: 07/18/17 09:04 Dose: 1 applic Hydroxyzine HCl (Atarax -) 10 mg PO Q6HPO [facility] Last Admin: 07/18/17 12:18 Dose: 10 mg Insulin Aspart (Novolog Vial Sliding Scale -) 1 vial SQ ACHS [facility] PRN Reason: Protocol Last Admin: 07/18/17 11:30 Dose: 6 unit Lactic Acid (Lac-Hydrin 12) 1 applic TP DAILY [facility] Last Admin: 07/18/17 09:01 Dose: 1 applic Levothyroxine Sodium (Synthroid -) 25 mcg PO AM [facility] Last Admin: 07/18/17 07:05 Dose: 25 mcg Morphine Sulfate (Ms Contin -) 15 mg PO BID [facility] Last Admin: 07/18/17 09:01 Dose: 15 mg Patient's Own Medication (Non- Formulary) (Tasigna 150mg) 300 mg PO Q12H [facility] Last Admin: 07/18/17 09:40 Dose: 300 mg Nystatin (Nystop Powder -) 1 applic TP BID [facility] Last Admin: 07/18/17 09:03 Dose: 1 applic Oxycodone HCl (Roxicodone -) 10 mg PO Q4H PRN Pantoprazole Sodium (Protonix -) 40 mg PO DAILY [facility] Last Admin: 07/18/17 09:01 Dose: 40 mg Polymyxin/Trimethoprim Sulfate (Polytrim Opthalmic Solution -) 1 drop OU Q4HWA [facility] Stop: 07/23/17 14:14 - Objective Vital Signs: Vital Signs Temperature 97.5 F L 11/14/17 14:45 Pulse Rate 84 07/18/17 14:45 Respiratory Rate 20 07/18/17 14:45 Blood Pressure 158/70 07/18/17 14:45 O2 Sat by Pulse Oximetry (%) 97 07/18/17 11:37 Constitutional: Yes: No Distress, Calm Cardiovascular: Yes: Regular Rate and Rhythm Respiratory: Yes: Regular, CTA Bilaterally Gastrointestinal: Yes: Normal Bowel Sounds, Soft Musculoskeletal: Yes: Other Extremities: Yes: Other Integumentary: Yes: Other (skin statuses noted) Neurological: Yes: Alert, Oriented Psychiatric: Yes: Alert Labs: CBC, BMP 07/18/17 06:00 07/18/17 06:00 INR, PTT INR 4.78 (0.82-1.09) H* 07/18/17 06:00 Assessment/Plan . Assessment/Plan (1) Atrial fibrillation with RVR Code(s): I48.91 - UNSPECIFIED ATRIAL FIBRILLATION (2) Sepsis Code(s): A41.9 - SEPSIS, UNSPECIFIED ORGANISM Qualifiers: Sepsis type: Escherichia coli Qualified Code(s): A41.51 - Sepsis due to Escherichia coli [E. coli]; A41.51 - Sepsis due to Escherichia coli [E. coli]; A41.51 - Sepsis due to Escherichia coli [E. coli] (3) UTI (urinary tract infection) Code(s): N39.0 - URINARY TRACT INFECTION, SITE NOT SPECIFIED Qualifiers: Urinary tract infection type: acute cystitis Hematuria presence: without hematuria Qualified Code(s): N30.00 - Acute cystitis without hematuria; N30.00 - Acute cystitis without hematuria (4) ASA (acute kidney injury) Code(s): N17.9 - ACUTE KIDNEY FAILURE, UNSPECIFIED (5) Drug induced rash with eosinophilia and systemic symptoms Code(s): L27.0 - GEN SKIN ERUPTION DUE TO DRUGS AND MEDS TAKEN INTERNALLY D72.1 - EOSINOPHILIA T50.905A - ADVERSE EFFECT OF UNSP DRUG/MEDS/BIOL SUBST, INIT (6) Anemia Code(s): D64.9 - ANEMIA, UNSPECIFIED Qualifiers: Anemia type: other cause Other causes of anemia: acute posthemorrhagic Qualified Code(s): D62 - Acute posthemorrhagic anemia; D62 - Acute posthemorrhagic anemia (7) CHF (congestive heart failure) Code(s): I50.9 - HEART FAILURE, UNSPECIFIED Qualifiers: Congestive heart failure type: diastolic Congestive heart failure chronicity: chronic Qualified Code(s): I50.32 - Chronic diastolic ( congestive) heart failure; I50.32 - Chronic diastolic (congestive) heart failure ; I50.32 - Chronic diastolic (congestive) heart failure; I50.32 - Chronic diastolic (congestive) heart failure (8) CML (chronic myelocytic leukemia) Code(s): C92.10 - CHRONIC MYELOID LEUK, BCR/ABL-POSITIVE, NOT ACHIEVE REMIS (9) COPD (chronic obstructive pulmonary disease) Code(s): J44.9 - CHRONIC OBSTRUCTIVE PULMONARY DISEASE, UNSPECIFIED (10) Diabetes Code(s): E11.9 - TYPE 2 DIABETES MELLITUS WITHOUT COMPLICATIONS (11) Hypothyroid Code(s): E03.9 - HYPOTHYROIDISM, UNSPECIFIED plan stable off of abx continue current mgmt skin care await for dermatology input
--- NOTE | 2017-07-18 16:26 | PN ---
Progress Note (short form) - Note Progress Note: seen and examined NAD NCAT Skin looks better Rt eye with crust present LE changes present Last Vital Signs Temp Pulse Resp BP Pulse Ox 97.5 F L 84 20 158/70 97 07/18/17 14:45 07/18/17 14:45 07/18/17 14:45 07/18/17 14:45 07/18/17 11:37 CBC, BMP 07/18/17 06:00 07/18/17 06:00 Current Medications Generic Name Dose Route Start Last Admin Trade Name Freq PRN Reason Stop Dose Admin Acetaminophen 650 mg 07/18/17 03:25 Tylenol - PO Q6H PRN PAIN Arformoterol Tartrate 1 amp 07/18/17 10:00 07/18/17 11:37 Brovana (Restricted To Pulmonology/Resp) - NEB 1 amp BID [facility] Administration Diphenhydramine HCl 25 mg 07/12/17 11:06 07/15/17 22:21 Benadryl - PO 25 mg Q6H PRN Administration FOR ITCHING Ferrous Sulfate 325 mg 07/18/17 10:00 07/18/17 09:01 Feosol - PO 325 mg BID [facility] Administration Fluocinonide 1 applic 07/17/17 10:15 07/18/17 09:04 Lidex 0.05% Ointment - TP 1 applic BID [facility] Administration Hydroxyzine HCl 10 mg 07/13/17 14:15 07/18/17 12:18 Atarax - PO 10 mg Q6HPO [facility] Administration Insulin Aspart 1 vial 07/18/17 07:00 07/18/17 11:30 Novolog Vial Sliding Scale - SQ 6 unit ACHS [facility] Administration Protocol Lactic Acid 1 applic 07/16/17 14:45 07/18/17 09:01 Lac-Hydrin 12 TP 1 applic DAILY [facility] Administration Levothyroxine Sodium 25 mcg 07/18/17 07:00 07/18/17 07:05 Synthroid - PO 25 mcg AM [facility] Administration Morphine Sulfate 15 mg 07/16/17 22:00 07/18/17 09:01 Ms Contin - PO 15 mg BID [facility] Administration Patient's Own 300 mg 07/13/17 10:30 07/18/17 09:40 Medication (Non- PO 300 mg Formulary) (Tasigna Q12H [facility] Administration 150mg) Nystatin 1 applic 07/16/17 22:00 07/18/17 09:03 Nystop Powder - TP 1 applic BID [facility] Administration Oxycodone HCl 10 mg 07/18/17 03:25 Roxicodone - PO Q4H PRN Pantoprazole Sodium 40 mg 07/12/17 10:45 07/18/17 09:01 Protonix - PO 40 mg DAILY [facility] Administration Polymyxin/Trimethoprim Sulfate 1 drop 07/18/17 14:15 Polytrim Opthalmic Solution - OU 07/23/17 14:14 Q4HWA [facility] CML -c/w Nilotinib -will f/u on repeat BCR ABL. -iron studies reviewed ,consistent with ACD/ACI, last EGD/Colonoscopy negative -continue to monitor hgb New afib -on coumadin -inr supra therapeutic, off of coumadin continue to monitor drft down to 2-3 -cards following ATN: -?cause -cr 1.3, coming close to baseline improving Rash: -derm eval noted -skin much better -rash consistent with drup reaction. Sepsis: -resolved -completed abx crusting of the eyes -as per pmd
--- NOTE | 2017-07-18 16:46 | PN ---
Progress Note, Physician History of Present Illness: Pt seen and examined at bedside. She has increased edema. She denies shortness of breath. - Current Medication List Current Medications: Active Medications Acetaminophen (Tylenol -) 650 mg PO Q6H PRN PRN Reason: PAIN Arformoterol Tartrate (Brovana (Restricted To Pulmonology/Resp) -) 1 amp NEB BID [facility] Last Admin: 07/18/17 11:37 Dose: 1 amp Diphenhydramine HCl (Benadryl -) 25 mg PO Q6H PRN PRN Reason: FOR ITCHING Last Admin: 07/15/17 22:21 Dose: 25 mg Ferrous Sulfate (Feosol -) 325 mg PO BID [facility] Last Admin: 07/18/17 09:01 Dose: 325 mg Fluocinonide (Lidex 0.05% Ointment -) 1 applic TP BID [facility] Last Admin: 07/18/17 09:04 Dose: 1 applic Hydroxyzine HCl (Atarax -) 10 mg PO Q6HPO [facility] Last Admin: 07/18/17 12:18 Dose: 10 mg Insulin Aspart (Novolog Vial Sliding Scale -) 1 vial SQ ACHS [facility] PRN Reason: Protocol Last Admin: 07/18/17 11:30 Dose: 6 unit Lactic Acid (Lac-Hydrin 12) 1 applic TP DAILY [facility] Last Admin: 07/18/17 09:01 Dose: 1 applic Levothyroxine Sodium (Synthroid -) 25 mcg PO AM [facility] Last Admin: 07/18/17 07:05 Dose: 25 mcg Morphine Sulfate (Ms Contin -) 15 mg PO BID [facility] Last Admin: 07/18/17 09:01 Dose: 15 mg Patient's Own Medication (Non- Formulary) (Tasigna 150mg) 300 mg PO Q12H [facility] Last Admin: 07/18/17 09:40 Dose: 300 mg Nystatin (Nystop Powder -) 1 applic TP BID [facility] Last Admin: 07/18/17 09:03 Dose: 1 applic Oxycodone HCl (Roxicodone -) 10 mg PO Q4H PRN Pantoprazole Sodium (Protonix -) 40 mg PO DAILY [facility] Last Admin: 07/18/17 09:01 Dose: 40 mg Polymyxin/Trimethoprim Sulfate (Polytrim Opthalmic Solution -) 1 drop OU Q4HWA [facility] Stop: 07/23/17 14:14 - Objective Vital Signs: Vital Signs Temperature 97.5 F L 07/18/17 14:45 Pulse Rate 84 07/18/17 14:45 Respiratory Rate 20 07/18/17 14:45 Blood Pressure 158/70 07/18/17 14:45 O2 Sat by Pulse Oximetry (%) 97 07/18/17 11:37 Constitutional: Yes: Calm Eyes: Yes: Conjunctiva Clear HENT: Yes: Atraumatic Neck: Yes: Supple Cardiovascular: Yes: S1, S2 Respiratory: Yes: CTA Bilaterally Gastrointestinal: Yes: Normal Bowel Sounds, Soft, Abdomen, Obese Genitourinary: Yes: WNL Musculoskeletal: Yes: Muscle Weakness Edema: Yes Edema: LUE: 1+, RUE: 1+, LLE: 2+, RLE: 2+ Integumentary: Yes: Rash Neurological: Yes: Oriented Psychiatric: Yes: Oriented Labs: CBC, BMP 07/18/17 06:00 07/18/17 06:00 INR, PTT INR 4.78 (0.82-1.09) H* 07/18/17 06:00 Problem List - Problems (1) Diabetes Code(s): E11.9 - TYPE 2 DIABETES MELLITUS WITHOUT COMPLICATIONS (2) CML (chronic myelocytic leukemia) Code(s): C92.10 - CHRONIC MYELOID LEUK, BCR/ABL-POSITIVE, NOT ACHIEVE REMIS (3) Anemia Code(s): D64.9 - ANEMIA, UNSPECIFIED Qualifiers: Anemia type: other cause Other causes of anemia: chronic disease, other Qualified Code(s): D63.8 - Anemia in other chronic diseases classified elsewhere (4) Cellulitis of leg, left Code(s): L03.116 - CELLULITIS OF LEFT LOWER LIMB (5) CHF (congestive heart failure) Code(s): I50.9 - HEART FAILURE, UNSPECIFIED Qualifiers: Congestive heart failure type: diastolic Congestive heart failure chronicity: chronic Qualified Code(s): I50.32 - Chronic diastolic (congestive ) heart failure (6) Acute renal insufficiency Code(s): N28.9 - DISORDER OF KIDNEY AND URETER, UNSPECIFIED (7) Hyperkalemia Code(s): E87.5 - HYPERKALEMIA (8) MARIA ELENA positive Code(s): R76.8 - OTHER SPECIFIED ABNORMAL IMMUNOLOGICAL FINDINGS IN SERUM (9) ASA (acute kidney injury) Code(s): N17.9 - ACUTE KIDNEY FAILURE, UNSPECIFIED Assessment/Plan Current Medications Generic Name Dose Route Start Last Admin Trade Name Freq PRN Reason Stop Dose Admin Acetaminophen 650 mg 07/18/17 03:25 Tylenol - PO Q6H PRN PAIN Arformoterol Tartrate 1 amp 07/18/17 10:00 07/18/17 11:37 Brovana (Restricted To Pulmonology/Resp) - NEB 1 amp BID [facility] Administration Diphenhydramine HCl 25 mg 07/12/17 11:06 07/15/17 22:21 Benadryl - PO 25 mg Q6H PRN Administration FOR ITCHING Ferrous Sulfate 325 mg 07/18/17 10:00 07/18/17 09:01 Feosol - PO 325 mg BID [facility] Administration Fluocinonide 1 applic 07/17/17 10:15 07/18/17 09:04 Lidex 0.05% Ointment - TP 1 applic BID [facility] Administration Hydroxyzine HCl 10 mg 07/13/17 14:15 07/18/17 12:18 Atarax - PO 10 mg Q6HPO [facility] Administration Insulin Aspart 1 vial 07/18/17 07:00 07/18/17 11:30 Novolog Vial Sliding Scale - SQ 6 unit ACHS [facility] Administration Protocol Lactic Acid 1 applic 07/16/17 14:45 07/18/17 09:01 Lac-Hydrin 12 TP 1 applic DAILY [facility] Administration Levothyroxine Sodium 25 mcg 07/18/17 07:00 07/18/17 07:05 Synthroid - PO 25 mcg AM [facility] Administration Morphine Sulfate 15 mg 07/16/17 22:00 07/18/17 09:01 Ms Contin - PO 15 mg BID [facility] Administration Patient's Own 300 mg 07/13/17 10:30 07/18/17 09:40 Medication (Non- PO 300 mg Formulary) (Tasigna Q12H [facility] Administration 150mg) Nystatin 1 applic 07/16/17 22:00 07/18/17 09:03 Nystop Powder - TP 1 applic BID [facility] Administration Oxycodone HCl 10 mg 07/18/17 03:25 Roxicodone - PO Q4H PRN Pantoprazole Sodium 40 mg 07/12/17 10:45 07/18/17 09:01 Protonix - PO 40 mg DAILY [facility] Administration Polymyxin/Trimethoprim Sulfate 1 drop 07/18/17 14:15 Polytrim Opthalmic Solution - OU 07/23/17 14:14 Q4HWA [facility] Impression 1. ASA 2. anemia 3. rash 4. CML 5. hypothyroidism 6. HTN 7. chol 8. CHF 9. COPD 10. hyperkalemia 11. sepsis 12. new onset a-fib 13. peripheral eosinophilia Plan - creatinine is improving - will restart torsemide - repeat labs in am - follow up skin biopsy - discussed with pmd - pt refused kidney biopsy, discussed again today - jarek on hold - likely asa from atn - will follow closely Dr Sanchez
[2017-07-18] MEDS: POLYMYXIN B SULFATE/TMP 10 ML OPHTHALMIC SOLUTION OU SCH ×3 (16:58→21:36)
[2017-07-18] MEDS: TORSEMIDE 20 MG TABLET (FP) PO SCH (17:04)
--- NOTE | 2017-07-18 17:07 | PN ---
Progress Note, Physician Chief Complaint: Ms Hernandez says her eyes are irritated and crusting. No cp, sob, n/v. - Current Medication List Current Medications: Active Medications Acetaminophen (Tylenol -) 650 mg PO Q6H PRN PRN Reason: PAIN Arformoterol Tartrate (Brovana (Restricted To Pulmonology/Resp) -) 1 amp NEB BID [facility] Last Admin: 07/18/17 11:37 Dose: 1 amp Diphenhydramine HCl (Benadryl -) 25 mg PO Q6H PRN PRN Reason: FOR ITCHING Last Admin: 07/15/17 22:21 Dose: 25 mg Ferrous Sulfate (Feosol -) 325 mg PO BID [facility] Last Admin: 07/18/17 09:01 Dose: 325 mg Fluocinonide (Lidex 0.05% Ointment -) 1 applic TP BID [facility] Last Admin: 07/18/17 09:04 Dose: 1 applic Hydroxyzine HCl (Atarax -) 10 mg PO Q6HPO [facility] Last Admin: 07/18/17 12:18 Dose: 10 mg Insulin Aspart (Novolog Vial Sliding Scale -) 1 vial SQ ACHS [facility] PRN Reason: Protocol Last Admin: 07/18/17 11:30 Dose: 6 unit Lactic Acid (Lac-Hydrin 12) 1 applic TP DAILY [facility] Last Admin: 07/18/17 09:01 Dose: 1 applic Levothyroxine Sodium (Synthroid -) 25 mcg PO AM [facility] Last Admin: 07/18/17 07:05 Dose: 25 mcg Morphine Sulfate (Ms Contin -) 15 mg PO BID [facility] Last Admin: 07/18/17 09:01 Dose: 15 mg Patient's Own Medication (Non- Formulary) (Tasigna 150mg) 300 mg PO Q12H [facility] Last Admin: 07/18/17 09:40 Dose: 300 mg Nystatin (Nystop Powder -) 1 applic TP BID [facility] Last Admin: 07/18/17 09:03 Dose: 1 applic Oxycodone HCl (Roxicodone -) 10 mg PO Q4H PRN Pantoprazole Sodium (Protonix -) 40 mg PO DAILY [facility] Last Admin: 07/18/17 09:01 Dose: 40 mg Polymyxin/Trimethoprim Sulfate (Polytrim Opthalmic Solution -) 1 drop OU Q4HWA [facility] Stop: 07/23/17 14:14 Torsemide (Demadex -) 20 mg PO DAILY [facility] - Objective Vital Signs: Vital Signs Temperature 36.4 C L 07/18/17 14:45 Pulse Rate 84 07/18/17 14:45 Respiratory Rate 20 07/18/17 14:45 Blood Pressure 158/70 07/18/17 14:45 O2 Sat by Pulse Oximetry (%) 97 07/18/17 11:37 Constitutional: Yes: No Distress, Calm, Obese Eyes: Yes: Other (scleral injection with purulence) Cardiovascular: Yes: Pulse Irregular. No: Tachycardia, Gallop, Murmur, Rub Respiratory: Yes: Regular, CTA Bilaterally. No: Rales, Rhonchi, Wheezes Gastrointestinal: Yes: Normal Bowel Sounds, Soft. No: Distention, Tenderness Extremities: Yes: Erythema Edema: Yes Edema: LUE: 2+, RUE: 2+, LLE: 2+, RLE: 2+ Labs: CBC, BMP 07/18/17 06:00 07/18/17 06:00 INR, PTT INR 4.78 (0.82-1.09) H* 07/18/17 06:00 Problem List - Problems (1) Diabetes Code(s): E11.9 - TYPE 2 DIABETES MELLITUS WITHOUT COMPLICATIONS (2) CML (chronic myelocytic leukemia) Code(s): C92.10 - CHRONIC MYELOID LEUK, BCR/ABL-POSITIVE, NOT ACHIEVE REMIS (3) Anemia Code(s): D64.9 - ANEMIA, UNSPECIFIED Qualifiers: Anemia type: other cause Other causes of anemia: chronic disease, other Qualified Code(s): D63.8 - Anemia in other chronic diseases classified elsewhere (4) Hypothyroid Code(s): E03.9 - HYPOTHYROIDISM, UNSPECIFIED (5) COPD (chronic obstructive pulmonary disease) Code(s): J44.9 - CHRONIC OBSTRUCTIVE PULMONARY DISEASE, UNSPECIFIED (6) CHF (congestive heart failure) Code(s): I50.9 - HEART FAILURE, UNSPECIFIED Qualifiers: Congestive heart failure type: diastolic Congestive heart failure chronicity: chronic Qualified Code(s): I50.32 - Chronic diastolic (congestive ) heart failure (7) Sepsis Code(s): A41.9 - SEPSIS, UNSPECIFIED ORGANISM Qualifiers: Sepsis type: Escherichia coli Qualified Code(s): A41.51 - Sepsis due to Escherichia coli [E. coli] (8) Drug induced rash with eosinophilia and systemic symptoms Code(s): L27.0 - GEN SKIN ERUPTION DUE TO DRUGS AND MEDS TAKEN INTERNALLY; D72.1 - EOSINOPHILIA; T50.905A - ADVERSE EFFECT OF UNSP DRUG/MEDS/BIOL SUBST, INIT (9) ASA (acute kidney injury) Code(s): N17.9 - ACUTE KIDNEY FAILURE, UNSPECIFIED (10) Atrial fibrillation with RVR Code(s): I48.91 - UNSPECIFIED ATRIAL FIBRILLATION (11) UTI (urinary tract infection) Code(s): N39.0 - URINARY TRACT INFECTION, SITE NOT SPECIFIED Qualifiers: Urinary tract infection type: acute cystitis Hematuria presence: without hematuria Qualified Code(s): N30.00 - Acute cystitis without hematuria Assessment/Plan (1) Atrial fibrillation with RVR Assessment/Plan: -currently in sinus rhythm on exam -holding coumadin secondary to elevated INR Code(s): I48.91 - UNSPECIFIED ATRIAL FIBRILLATION (2) Sepsis Assessment/Plan: -resolved Code(s): A41.9 - SEPSIS, UNSPECIFIED ORGANISM Qualifiers: Sepsis type: Escherichia coli Qualified Code(s): A41.51 - Sepsis due to Escherichia coli [E. coli]; A41.51 - Sepsis due to Escherichia coli [E. coli]; A41.51 - Sepsis due to Escherichia coli [E. coli] (3) UTI (urinary tract infection) Assessment/Plan: -s/p treatment Code(s): N39.0 - URINARY TRACT INFECTION, SITE NOT SPECIFIED Qualifiers: Urinary tract infection type: acute cystitis Hematuria presence: without hematuria Qualified Code(s): N30.00 - Acute cystitis without hematuria; N30.00 - Acute cystitis without hematuria (4) ASA (acute kidney injury) Assessment/Plan: -nephrology following -improving Code(s): N17.9 - ACUTE KIDNEY FAILURE, UNSPECIFIED (5) Drug induced rash with eosinophilia and systemic symptoms Assessment/Plan: -improving -continue atarax -dermatology performed shave biopsy Code(s): L27.0 - GEN SKIN ERUPTION DUE TO DRUGS AND MEDS TAKEN INTERNALLY D72.1 - EOSINOPHILIA T50.905A - ADVERSE EFFECT OF UNSP DRUG/MEDS/BIOL SUBST, INIT (6) Anemia Assessment/Plan: -continue iron -at baseline Code(s): D64.9 - ANEMIA, UNSPECIFIED Qualifiers: Anemia type: other cause Other causes of anemia: acute posthemorrhagic Qualified Code(s): D62 - Acute posthemorrhagic anemia; D62 - Acute posthemorrhagic anemia (7) CHF (congestive heart failure) Assessment/Plan: -fluid overloaded -case d/w Dr Sanchez -give torsemide Code(s): I50.9 - HEART FAILURE, UNSPECIFIED Qualifiers: Congestive heart failure type: diastolic Congestive heart failure chronicity: chronic Qualified Code(s): I50.32 - Chronic diastolic ( congestive) heart failure; I50.32 - Chronic diastolic (congestive) heart failure ; I50.32 - Chronic diastolic (congestive) heart failure; I50.32 - Chronic diastolic (congestive) heart failure (8) CML (chronic myelocytic leukemia) Assessment/Plan: -hematology following and case discussed -tasigna restarted Code(s): C92.10 - CHRONIC MYELOID LEUK, BCR/ABL-POSITIVE, NOT ACHIEVE REMIS (9) COPD (chronic obstructive pulmonary disease) Assessment/Plan: -not in exacerbation -continue current regimen Code(s): J44.9 - CHRONIC OBSTRUCTIVE PULMONARY DISEASE, UNSPECIFIED (10) Diabetes Assessment/Plan: -continue current management Code(s): E11.9 - TYPE 2 DIABETES MELLITUS WITHOUT COMPLICATIONS (11) Hypothyroid Assessment/Plan: -continue synthroid Code(s): E03.9 - HYPOTHYROIDISM, UNSPECIFIED (12) Conjunctivitis -trial of polymixin/TMP eye drops
[2017-07-19] MEDS: hydrOXYzine HCL 10 MG TABLET PO SCH ×4 (01:12→17:37)
[2017-07-19] MEDS: INSULIN SLIDING SCALE (NOVOLOG) 1 VIAL SQ SCH ×4 (06:13→22:07)
[2017-07-19] MEDS: POLYMYXIN B SULFATE/TMP 10 ML OPHTHALMIC SOLUTION OU SCH ×5 (06:17→21:03)
[2017-07-19] MEDS: LEVOTHYROXINE NA 25 MCG TABLET (FP) PO SCH (06:17)
[2017-07-19 07:51] LABS: BASOPHIL 0.4 % (0-2.0); EOSINOPHIL 10.7 % (0-4.5); MCH 28.6 pg (25.7-33.7); MCHC 32.3 g/dl (32.0-36.0); MEAN CELL VOLUME 88.5 fl (80-96); MEAN PLT VOLUME 7.4 fl (7.5-11.1); NEUTROPHILS 53.3 % (42.8-82.8); PLATELET COUNT 217 K/MM3 (134-434); RDW 18.8 % (11.6-15.6); WHITE BLOOD COUNT 5.9 K/mm3 (4.0-10.0)
[2017-07-19 08:19] LABS: ANION GAP 7 (8-16); CALCIUM 7.8 mg/dL (8.5-10.1); CO2 22 mmol/L (21-32); CREATININE 1.3 mg/dL (0.55-1.02); GLUCOSE,RANDOM 141 mg/dL (74-106); MAGNESIUM 1.8 mg/dL (1.8-2.4); PHOSPHOROUS 4.2 mg/dL (2.5-4.9)
[2017-07-19 08:22] LABS: INR 3.61 (0.82-1.09); PROTHROMBIN TIME (PATIENT) 40.8 SEC (9.98-11.88)
[2017-07-19] MEDS: ARFORMOTEROL TARTRATE 15 MCG/2 ML VIAL NEB SCH ×2 (10:05→22:25)
[2017-07-19] MEDS: TORSEMIDE 20 MG TABLET (FP) PO SCH (10:18)
[2017-07-19] MEDS: FERROUS SO4 325 MG TABLET (FP) PO SCH ×2 (10:18→20:59)
[2017-07-19] MEDS: PANTOPRAZOLE 40 MG TABLET (FP) PO SCH (10:18)
[2017-07-19] MEDS: morphine SO4 SUSTAINED ACTING 15 MG TABLET.SA PO SCH ×2 (10:19→21:59)
[2017-07-19] MEDS: AMMONIUM LACTATE 12% LOTION 225 GM BOTTLE TP SCH (10:21)
[2017-07-19] MEDS: FLUOCINONIDE 0.05% TOP OINT (60 GM TUBE) TP SCH ×2 (10:21→21:01)
[2017-07-19] MEDS: NYSTATIN POWDER 100,000 UNITS/GM - 15 GM TOPICAL POWDER TP SCH ×2 (10:21→21:02)
[2017-07-19] MEDS: TASIGNA 150 MG PO SCH ×2 (10:22→21:00)
--- NOTE | 2017-07-19 11:35 | PN ---
Progress Note, Physician History of Present Illness: patient doing well no new issues - Current Medication List Current Medications: Active Medications Acetaminophen (Tylenol -) 650 mg PO Q6H PRN PRN Reason: PAIN Arformoterol Tartrate (Brovana (Restricted To Pulmonology/Resp) -) 1 amp NEB BID [facility] Last Admin: 07/19/17 10:05 Dose: 1 amp Diphenhydramine HCl (Benadryl -) 25 mg PO Q6H PRN PRN Reason: FOR ITCHING Last Admin: 07/15/17 22:21 Dose: 25 mg Ferrous Sulfate (Feosol -) 325 mg PO BID [facility] Last Admin: 07/19/17 10:18 Dose: 325 mg Fluocinonide (Lidex 0.05% Ointment -) 1 applic TP BID [facility] Last Admin: 07/19/17 10:21 Dose: 1 applic Hydroxyzine HCl (Atarax -) 10 mg PO Q6HPO [facility] Last Admin: 07/19/17 06:13 Dose: Not Given Insulin Aspart (Novolog Vial Sliding Scale -) 1 vial SQ ACHS [facility] PRN Reason: Protocol Last Admin: 07/19/17 06:13 Dose: Not Given Lactic Acid (Lac-Hydrin 12) 1 applic TP DAILY [facility] Last Admin: 07/19/17 10:21 Dose: 1 applic Levothyroxine Sodium (Synthroid -) 25 mcg PO AM [facility] Last Admin: 07/19/17 06:17 Dose: 25 mcg Morphine Sulfate (Ms Contin -) 15 mg PO BID [facility] Last Admin: 07/19/17 10:19 Dose: 15 mg Patient's Own Medication (Non- Formulary) (Tasigna 150mg) 300 mg PO Q12H [facility] Last Admin: 07/19/17 10:22 Dose: 300 mg Nystatin (Nystop Powder -) 1 applic TP BID [facility] Last Admin: 07/19/17 10:21 Dose: 1 applic Oxycodone HCl (Roxicodone -) 10 mg PO Q4H PRN Last Admin: 07/18/17 17:04 Dose: 10 mg Pantoprazole Sodium (Protonix -) 40 mg PO DAILY [facility] Last Admin: 07/19/17 10:18 Dose: 40 mg Polymyxin/Trimethoprim Sulfate (Polytrim Opthalmic Solution -) 1 drop OU Q4HWA [facility] Stop: 07/23/17 14:14 Last Admin: 07/19/17 10:20 Dose: 1 drop Torsemide (Demadex -) 20 mg PO DAILY [facility] Last Admin: 07/19/17 10:18 Dose: 20 mg - Objective Vital Signs: Vital Signs Temperature 98.6 F 07/19/17 01:46 Pulse Rate 92 H 07/19/17 01:46 Respiratory Rate 20 07/19/17 01:46 Blood Pressure 92/45 07/19/17 01:46 O2 Sat by Pulse Oximetry (%) 97 07/18/17 20:09 Constitutional: Yes: No Distress, Calm, Obese Cardiovascular: Yes: S1, S2 Respiratory: Yes: Regular, CTA Bilaterally Gastrointestinal: Yes: Normal Bowel Sounds, Soft Musculoskeletal: Yes: Other Extremities: Yes: Other (patient has developed a heel ulcer) Wound/Incision: Yes: Dressing Dry and Intact, Other (heel ulcer left) Neurological: Yes: Alert, Oriented Psychiatric: Yes: Alert Labs: CBC, BMP 07/19/17 06:00 07/19/17 06:00 INR, PTT INR 3.61 (0.82-1.09) H 07/19/17 06:00 Assessment/Plan . Assessment/Plan (1) Atrial fibrillation with RVR Code(s): I48.91 - UNSPECIFIED ATRIAL FIBRILLATION (2) Sepsis Code(s): A41.9 - SEPSIS, UNSPECIFIED ORGANISM Qualifiers: Sepsis type: Escherichia coli Qualified Code(s): A41.51 - Sepsis due to Escherichia coli [E. coli]; A41.51 - Sepsis due to Escherichia coli [E. coli]; A41.51 - Sepsis due to Escherichia coli [E. coli] (3) UTI (urinary tract infection) Code(s): N39.0 - URINARY TRACT INFECTION, SITE NOT SPECIFIED Qualifiers: Urinary tract infection type: acute cystitis Hematuria presence: without hematuria Qualified Code(s): N30.00 - Acute cystitis without hematuria; N30.00 - Acute cystitis without hematuria (4) ASA (acute kidney injury) Code(s): N17.9 - ACUTE KIDNEY FAILURE, UNSPECIFIED (5) Drug induced rash with eosinophilia and systemic symptoms Code(s): L27.0 - GEN SKIN ERUPTION DUE TO DRUGS AND MEDS TAKEN INTERNALLY D72.1 - EOSINOPHILIA T50.905A - ADVERSE EFFECT OF UNSP DRUG/MEDS/BIOL SUBST, INIT (6) Anemia Code(s): D64.9 - ANEMIA, UNSPECIFIED Qualifiers: Anemia type: other cause Other causes of anemia: acute posthemorrhagic Qualified Code(s): D62 - Acute posthemorrhagic anemia; D62 - Acute posthemorrhagic anemia (7) CHF (congestive heart failure) Code(s): I50.9 - HEART FAILURE, UNSPECIFIED Qualifiers: Congestive heart failure type: diastolic Congestive heart failure chronicity: chronic Qualified Code(s): I50.32 - Chronic diastolic ( congestive) heart failure; I50.32 - Chronic diastolic (congestive) heart failure ; I50.32 - Chronic diastolic (congestive) heart failure; I50.32 - Chronic diastolic (congestive) heart failure (8) CML (chronic myelocytic leukemia) Code(s): C92.10 - CHRONIC MYELOID LEUK, BCR/ABL-POSITIVE, NOT ACHIEVE REMIS (9) COPD (chronic obstructive pulmonary disease) Code(s): J44.9 - CHRONIC OBSTRUCTIVE PULMONARY DISEASE, UNSPECIFIED (10) Diabetes Code(s): E11.9 - TYPE 2 DIABETES MELLITUS WITHOUT COMPLICATIONS (11) Hypothyroid Code(s): E03.9 - HYPOTHYROIDISM, UNSPECIFIED plan stable off of abx continue current mgmt skin care await for dermatology input i think wound care should have a look at the patient
[2017-07-19] MEDS ORDERED: INSULIN (NOVOLOG) ASPART 100 UNITS/ML 10ML VIAL ONE (12:05)
--- NOTE | 2017-07-19 12:36 | PN ---
Progress Note, Physician Chief Complaint: Ms Hernandez says she is feeling better today. Still with crusted and irritated eyes but better today. No cp, sob, n/v. - Current Medication List Current Medications: Active Medications Acetaminophen (Tylenol -) 650 mg PO Q6H PRN PRN Reason: PAIN Arformoterol Tartrate (Brovana (Restricted To Pulmonology/Resp) -) 1 amp NEB BID [facility] Last Admin: 07/19/17 10:05 Dose: 1 amp Diphenhydramine HCl (Benadryl -) 25 mg PO Q6H PRN PRN Reason: FOR ITCHING Last Admin: 07/15/17 22:21 Dose: 25 mg Ferrous Sulfate (Feosol -) 325 mg PO BID [facility] Last Admin: 07/19/17 10:18 Dose: 325 mg Fluocinonide (Lidex 0.05% Ointment -) 1 applic TP BID [facility] Last Admin: 07/19/17 10:21 Dose: 1 applic Hydroxyzine HCl (Atarax -) 10 mg PO Q6HPO [facility] Last Admin: 07/19/17 06:13 Dose: Not Given Insulin Aspart (Novolog Vial Sliding Scale -) 1 vial SQ ACHS JOVITA PRN Reason: Protocol Last Admin: 07/19/17 06:13 Dose: Not Given Lactic Acid (Lac-Hydrin 12) 1 applic TP DAILY [facility] Last Admin: 07/19/17 10:21 Dose: 1 applic Levothyroxine Sodium (Synthroid -) 25 mcg PO AM [facility] Last Admin: 07/19/17 06:17 Dose: 25 mcg Morphine Sulfate (Ms Contin -) 15 mg PO BID [facility] Last Admin: 07/19/17 10:19 Dose: 15 mg Patient's Own Medication (Non- Formulary) (Tasigna 150mg) 300 mg PO Q12H [facility] Last Admin: 07/19/17 10:22 Dose: 300 mg Nystatin (Nystop Powder -) 1 applic TP BID [facility] Last Admin: 07/19/17 10:21 Dose: 1 applic Oxycodone HCl (Roxicodone -) 10 mg PO Q4H PRN Last Admin: 07/18/17 17:04 Dose: 10 mg Pantoprazole Sodium (Protonix -) 40 mg PO DAILY [facility] Last Admin: 07/19/17 10:18 Dose: 40 mg Polymyxin/Trimethoprim Sulfate (Polytrim Opthalmic Solution -) 1 drop OU Q4HWA [facility] Stop: 07/23/17 14:14 Last Admin: 07/19/17 10:20 Dose: 1 drop Torsemide (Demadex -) 20 mg PO DAILY [facility] Last Admin: 07/19/17 10:18 Dose: 20 mg - Objective Vital Signs: Vital Signs Temperature 37.0 C 07/19/17 01:46 Pulse Rate 92 H 07/19/17 01:46 Respiratory Rate 20 07/19/17 01:46 Blood Pressure 92/45 07/19/17 01:46 O2 Sat by Pulse Oximetry (%) 97 07/18/17 20:09 Constitutional: Yes: No Distress, Calm, Obese Eyes: Yes: Other (scleral injection with purulence, much improved today) Cardiovascular: Yes: Pulse Irregular. No: Gallop, Murmur, Rub Respiratory: Yes: Regular, CTA Bilaterally. No: Rales, Rhonchi, Wheezes Gastrointestinal: Yes: Normal Bowel Sounds, Soft. No: Distention, Tenderness Extremities: Yes: Erythema Edema: Yes Edema: LUE: 2+, RUE: 2+, LLE: 2+, RLE: 2+ Labs: CBC, BMP 07/19/17 06:00 07/19/17 06:00 INR, PTT INR 3.61 (0.82-1.09) H 07/19/17 06:00 Problem List - Problems (1) Diabetes Code(s): E11.9 - TYPE 2 DIABETES MELLITUS WITHOUT COMPLICATIONS (2) CML (chronic myelocytic leukemia) Code(s): C92.10 - CHRONIC MYELOID LEUK, BCR/ABL-POSITIVE, NOT ACHIEVE REMIS (3) Anemia Code(s): D64.9 - ANEMIA, UNSPECIFIED Qualifiers: Anemia type: other cause Other causes of anemia: chronic disease, other Qualified Code(s): D63.8 - Anemia in other chronic diseases classified elsewhere (4) Hypothyroid Code(s): E03.9 - HYPOTHYROIDISM, UNSPECIFIED (5) COPD (chronic obstructive pulmonary disease) Code(s): J44.9 - CHRONIC OBSTRUCTIVE PULMONARY DISEASE, UNSPECIFIED (6) CHF (congestive heart failure) Code(s): I50.9 - HEART FAILURE, UNSPECIFIED Qualifiers: Congestive heart failure type: diastolic Congestive heart failure chronicity: chronic Qualified Code(s): I50.32 - Chronic diastolic (congestive ) heart failure (7) Sepsis Code(s): A41.9 - SEPSIS, UNSPECIFIED ORGANISM Qualifiers: Sepsis type: Escherichia coli Qualified Code(s): A41.51 - Sepsis due to Escherichia coli [E. coli] (8) Drug induced rash with eosinophilia and systemic symptoms Code(s): L27.0 - GEN SKIN ERUPTION DUE TO DRUGS AND MEDS TAKEN INTERNALLY; D72.1 - EOSINOPHILIA; T50.905A - ADVERSE EFFECT OF UNSP DRUG/MEDS/BIOL SUBST, INIT (9) ASA (acute kidney injury) Code(s): N17.9 - ACUTE KIDNEY FAILURE, UNSPECIFIED (10) Atrial fibrillation with RVR Code(s): I48.91 - UNSPECIFIED ATRIAL FIBRILLATION (11) UTI (urinary tract infection) Code(s): N39.0 - URINARY TRACT INFECTION, SITE NOT SPECIFIED Qualifiers: Urinary tract infection type: acute cystitis Hematuria presence: without hematuria Qualified Code(s): N30.00 - Acute cystitis without hematuria Assessment/Plan (1) Atrial fibrillation with RVR Assessment/Plan: -currently in sinus rhythm on exam -holding coumadin secondary to elevated INR -possibly restart coumadin tomorrow pending INR Code(s): I48.91 - UNSPECIFIED ATRIAL FIBRILLATION (2) Sepsis Assessment/Plan: -resolved Code(s): A41.9 - SEPSIS, UNSPECIFIED ORGANISM Qualifiers: Sepsis type: Escherichia coli Qualified Code(s): A41.51 - Sepsis due to Escherichia coli [E. coli]; A41.51 - Sepsis due to Escherichia coli [E. coli]; A41.51 - Sepsis due to Escherichia coli [E. coli] (3) UTI (urinary tract infection) Assessment/Plan: -s/p treatment Code(s): N39.0 - URINARY TRACT INFECTION, SITE NOT SPECIFIED Qualifiers: Urinary tract infection type: acute cystitis Hematuria presence: without hematuria Qualified Code(s): N30.00 - Acute cystitis without hematuria; N30.00 - Acute cystitis without hematuria (4) ASA (acute kidney injury) Assessment/Plan: -nephrology following -improving Code(s): N17.9 - ACUTE KIDNEY FAILURE, UNSPECIFIED (5) Drug induced rash with eosinophilia and systemic symptoms Assessment/Plan: -improving -continue atarax -dermatology performed shave biopsy -wound consult per ID recommendatios Code(s): L27.0 - GEN SKIN ERUPTION DUE TO DRUGS AND MEDS TAKEN INTERNALLY D72.1 - EOSINOPHILIA T50.905A - ADVERSE EFFECT OF UNSP DRUG/MEDS/BIOL SUBST, INIT (6) Anemia Assessment/Plan: -continue iron -at baseline Code(s): D64.9 - ANEMIA, UNSPECIFIED Qualifiers: Anemia type: other cause Other causes of anemia: acute posthemorrhagic Qualified Code(s): D62 - Acute posthemorrhagic anemia; D62 - Acute posthemorrhagic anemia (7) CHF (congestive heart failure) Assessment/Plan: -fluid overloaded -case d/w Dr Sanchez -give torsemide Code(s): I50.9 - HEART FAILURE, UNSPECIFIED Qualifiers: Congestive heart failure type: diastolic Congestive heart failure chronicity: chronic Qualified Code(s): I50.32 - Chronic diastolic ( congestive) heart failure; I50.32 - Chronic diastolic (congestive) heart failure ; I50.32 - Chronic diastolic (congestive) heart failure; I50.32 - Chronic diastolic (congestive) heart failure (8) CML (chronic myelocytic leukemia) Assessment/Plan: -hematology following and case discussed -tasigna restarted Code(s): C92.10 - CHRONIC MYELOID LEUK, BCR/ABL-POSITIVE, NOT ACHIEVE REMIS (9) COPD (chronic obstructive pulmonary disease) Assessment/Plan: -not in exacerbation -continue current regimen Code(s): J44.9 - CHRONIC OBSTRUCTIVE PULMONARY DISEASE, UNSPECIFIED (10) Diabetes Assessment/Plan: -continue current management Code(s): E11.9 - TYPE 2 DIABETES MELLITUS WITHOUT COMPLICATIONS (11) Hypothyroid Assessment/Plan: -continue synthroid Code(s): E03.9 - HYPOTHYROIDISM, UNSPECIFIED (12) Conjunctivitis -continue polymixin/TMP eye drops -improving
--- NOTE | 2017-07-19 13:21 | PN ---
Progress Note, Physician History of Present Illness: Pt seen and examined at bedside. She tolerated the torsemide yesterday. She denies shortness of breath. - Current Medication List Current Medications: Active Medications Acetaminophen (Tylenol -) 650 mg PO Q6H PRN PRN Reason: PAIN Arformoterol Tartrate (Brovana (Restricted To Pulmonology/Resp) -) 1 amp NEB BID COUNT [facility]CLUD[facility] Last Admin: 07/19/17 10:05 Dose: 1 amp Diphenhydramine HCl (Benadryl -) 25 mg PO Q6H PRN PRN Reason: FOR ITCHING Last Admin: 07/15/17 22:21 Dose: 25 mg Ferrous Sulfate (Feosol -) 325 mg PO BID JOVITA Last Admin: 07/19/17 10:18 Dose: 325 mg Fluocinonide (Lidex 0.05% Ointment -) 1 applic TP BID COUNT [facility]CLUD[facility] Last Admin: 07/19/17 10:21 Dose: 1 applic Hydroxyzine HCl (Atarax -) 10 mg PO Q6HPO COUNT INCLUDES [facility] Last Admin: 07/19/17 06:13 Dose: Not Given Insulin Aspart (Novolog Vial Sliding Scale -) 1 vial SQ ACHS JOVITA PRN Reason: Protocol Last Admin: 07/19/17 06:13 Dose: Not Given Lactic Acid (Lac-Hydrin 12) 1 applic TP DAILY COUNT [facility]CLUDES [facility] Last Admin: 07/19/17 10:21 Dose: 1 applic Levothyroxine Sodium (Synthroid -) 25 mcg PO AM JOVITA Last Admin: 07/19/17 06:17 Dose: 25 mcg Morphine Sulfate (Ms Contin -) 15 mg PO BID COUNT [facility]CLUDES [facility] Last Admin: 07/19/17 10:19 Dose: 15 mg Patient's Own Medication (Non- Formulary) (Tasigna 150mg) 300 mg PO Q12H JOVITA Last Admin: 07/19/17 10:22 Dose: 300 mg Nystatin (Nystop Powder -) 1 applic TP BID COUNT [facility]CLUD[facility] Last Admin: 07/19/17 10:21 Dose: 1 applic Oxycodone HCl (Roxicodone -) 10 mg PO Q4H PRN Last Admin: 07/18/17 17:04 Dose: 10 mg Pantoprazole Sodium (Protonix -) 40 mg PO DAILY COUNT [facility]CLUDES [facility] Last Admin: 07/19/17 10:18 Dose: 40 mg Polymyxin/Trimethoprim Sulfate (Polytrim Opthalmic Solution -) 1 drop OU Q4HWA COUNT INCLUDES [facility] Stop: 07/23/17 14:14 Last Admin: 07/19/17 10:20 Dose: 1 drop Torsemide (Demadex -) 20 mg PO DAILY COUNT [facility]CLUDES [facility] Last Admin: 07/19/17 10:18 Dose: 20 mg - Objective Vital Signs: Vital Signs Temperature 98.6 F 07/19/17 01:46 Pulse Rate 92 H 07/19/17 01:46 Respiratory Rate 20 07/19/17 09:00 Blood Pressure 92/45 07/19/17 01:46 O2 Sat by Pulse Oximetry (%) 97 07/18/17 20:09 Constitutional: Yes: Calm Eyes: Yes: Conjunctiva Clear Cardiovascular: Yes: S1, S2 Respiratory: Yes: CTA Bilaterally Gastrointestinal: Yes: Normal Bowel Sounds, Soft Genitourinary: Yes: Incontinence Musculoskeletal: Yes: Muscle Weakness Edema: Yes (lymphedema) Edema: LLE: 2+, RLE: 2+ Integumentary: Yes: Rash, Venous Stasis Changes Neurological: Yes: Oriented Psychiatric: Yes: Oriented Labs: CBC, BMP 07/19/17 06:00 07/19/17 06:00 INR, PTT INR 3.61 (0.82-1.09) H 07/19/17 06:00 Problem List - Problems (1) Diabetes Code(s): E11.9 - TYPE 2 DIABETES MELLITUS WITHOUT COMPLICATIONS (2) CML (chronic myelocytic leukemia) Code(s): C92.10 - CHRONIC MYELOID LEUK, BCR/ABL-POSITIVE, NOT ACHIEVE REMIS (3) Anemia Code(s): D64.9 - ANEMIA, UNSPECIFIED Qualifiers: Anemia type: other cause Other causes of anemia: chronic disease, other Qualified Code(s): D63.8 - Anemia in other chronic diseases classified elsewhere (4) Cellulitis of leg, left Code(s): L03.116 - CELLULITIS OF LEFT LOWER LIMB (5) CHF (congestive heart failure) Code(s): I50.9 - HEART FAILURE, UNSPECIFIED Qualifiers: Congestive heart failure type: diastolic Congestive heart failure chronicity: chronic Qualified Code(s): I50.32 - Chronic diastolic (congestive ) heart failure (6) Acute renal insufficiency Code(s): N28.9 - DISORDER OF KIDNEY AND URETER, UNSPECIFIED (7) Hyperkalemia Code(s): E87.5 - HYPERKALEMIA (8) MARIA ELENA positive Code(s): R76.8 - OTHER SPECIFIED ABNORMAL IMMUNOLOGICAL FINDINGS IN SERUM (9) ASA (acute kidney injury) Code(s): N17.9 - ACUTE KIDNEY FAILURE, UNSPECIFIED Assessment/Plan Current Medications Generic Name Dose Route Start Last Admin Trade Name Freq PRN Reason Stop Dose Admin Acetaminophen 650 mg 07/18/17 03:25 Tylenol - PO Q6H PRN PAIN Arformoterol Tartrate 1 amp 07/18/17 10:00 07/19/17 10:05 Brovana (Restricted To Pulmonology/Resp) - NEB 1 amp BID JOVITA Administration Diphenhydramine HCl 25 mg 07/12/17 11:06 07/15/17 22:21 Benadryl - PO 25 mg Q6H PRN Administration FOR ITCHING Ferrous Sulfate 325 mg 07/18/17 10:00 07/19/17 10:18 Feosol - PO 325 mg BID JOVITA Administration Fluocinonide 1 applic 07/17/17 10:15 07/19/17 10:21 Lidex 0.05% Ointment - TP 1 applic BID JOVITA Administration Hydroxyzine HCl 10 mg 07/13/17 14:15 07/19/17 06:13 Atarax - PO Not Given Q6HPO JOVITA Insulin Aspart 1 vial 07/18/17 07:00 07/19/17 06:13 Novolog Vial Sliding Scale - SQ Not Given ACHS JOVITA Protocol Lactic Acid 1 applic 07/16/17 14:45 07/19/17 10:21 Lac-Hydrin 12 TP 1 applic DAILY JOVITA Administration Levothyroxine Sodium 25 mcg 07/18/17 07:00 07/19/17 06:17 Synthroid - PO 25 mcg AM JOVITA Administration Morphine Sulfate 15 mg 07/16/17 22:00 07/19/17 10:19 Ms Contin - PO 15 mg BID JOVITA Administration Patient's Own 300 mg 07/13/17 10:30 07/19/17 10:22 Medication (Non- PO 300 mg Formulary) (Tasigna Q12H JOVITA Administration 150mg) Nystatin 1 applic 07/16/17 22:00 07/19/17 10:21 Nystop Powder - TP 1 applic BID JOVITA Administration Oxycodone HCl 10 mg 07/18/17 03:25 11/14/17 17:04 Roxicodone - PO 10 mg Q4H PRN Administration Pantoprazole Sodium 40 mg 07/12/17 10:45 07/19/17 10:18 Protonix - PO 40 mg DAILY JOVITA Administration Polymyxin/Trimethoprim Sulfate 1 drop 07/18/17 14:15 07/19/17 10:20 Polytrim Opthalmic Solution - OU 07/23/17 14:14 1 drop Q4HWA JOVITA Administration Torsemide 20 mg 07/18/17 17:00 07/19/17 10:18 Demadex - PO 20 mg DAILY JOVITA Administration Impression 1. ASA 2. anemia 3. rash 4. CML 5. hypothyroidism 6. HTN 7. chol 8. CHF 9. COPD 10. hyperkalemia 11. sepsis 12. new onset a-fib 13. peripheral eosinophilia Plan - cont with toresemide - repeat labs in am - creatinine is improving - follow up skin biopsy - jarek on hold, will keep on hold for now - check albumin level - likely asa from atn - will follow closely Dr Sanchez
[2017-07-19] MEDS: oxyCODONE HCL 5 MG TABLET PO PRN (13:54)
--- NOTE | 2017-07-19 17:14 | PATH ---
Surgical Pathology Report Patient Name: XIAO HAGEN Med. Rec. #: [id number] /Age/Gender: 1950 (Age: 66) / F Account: [id number] Location: [facility] MED/SURG Taken: 07/17/2017 Received: 07/18/2017 Reported: 07/19/2017 Physicians: Meghna Prater M.D. Specimen(s) Received SKIN BIOPSY LEFT CENTER THIGH Clinical History History of eruption after taking antibiotics Rule out drug eruption Final Diagnosis SKIN, THIGH, LEFT CENTER, EXCISION: SKIN WITH MILD SPONGIOSIS, SUPERFICIAL INTERSTITIAL AND SPARSE PERIVASCULAR DERMATITIS COMPRISED OF EOSINOPHILS AND NEUTROPHILS. OVERLYING CRUST IS NOTED. SEE COMMENT. Comment: PAS special stain for fungus is negative. Overall, the histomorphologic findings are consistent with clinical impression of drug eruption. Electronically Signed Alivia Madrigal M.D. Gross Description Received in formalin, labeled with the patient's name and indicated on the requisition to be a skin biopsy from the left anterior thigh, is a 0.7 x 0.5 cm mcnamara, unoriented skin shave. The base is inked green and the specimen is bisected and entirely submitted in one cassette. 07/18/201707/18/2017
--- NOTE | 2017-07-19 18:40 | PN ---
Progress Note (short form) - Note Progress Note: Pt seen and examined Skin biopsy consistent with drug eruption. O/E: Not in distress NCAT Left eye crusting noted Skin overall looking better LE, no change chronic changes present Last Vital Signs Temp Pulse Resp BP Pulse Ox 98.1 F 91 H 20 120/96 97 07/19/17 18:00 07/19/17 18:00 07/19/17 18:00 07/19/17 14:06 07/18/17 20:09 CBC, BMP 07/19/17 06:00 07/19/17 06:00 Current Medications Generic Name Dose Route Start Last Admin Trade Name Freq PRN Reason Stop Dose Admin Acetaminophen 650 mg 07/18/17 03:25 Tylenol - PO Q6H PRN PAIN Arformoterol Tartrate 1 amp 07/18/17 10:00 07/19/17 10:05 Brovana (Restricted To Pulmonology/Resp) - NEB 1 amp BID JOVITA Administration Diphenhydramine HCl 25 mg 07/12/17 11:06 07/15/17 22:21 Benadryl - PO 25 mg Q6H PRN Administration FOR ITCHING Ferrous Sulfate 325 mg 07/18/17 10:00 07/19/17 10:18 Feosol - PO 325 mg BID JOVITA Administration Fluocinonide 1 applic 07/17/17 10:15 07/19/17 10:21 Lidex 0.05% Ointment - TP 1 applic BID JOVITA Administration Hydroxyzine HCl 10 mg 07/13/17 14:15 07/19/17 17:37 Atarax - PO 10 mg Q6HPO JOVITA Administration Insulin Aspart 1 vial 07/18/17 07:00 07/19/17 17:37 Novolog Vial Sliding Scale - SQ 2 unit ACHS JOVITA Administration Protocol Lactic Acid 1 applic 07/16/17 14:45 07/19/17 10:21 Lac-Hydrin 12 TP 1 applic DAILY JOVITA Administration Levothyroxine Sodium 25 mcg 07/18/17 07:00 07/19/17 06:17 Synthroid - PO 25 mcg AM JOVITA Administration Morphine Sulfate 15 mg 07/16/17 22:00 07/19/17 10:19 Ms Contin - PO 15 mg BID JOVITA Administration Patient's Own 300 mg 07/13/17 10:30 07/19/17 10:22 Medication (Non- PO 300 mg Formulary) (Tasigna Q12H JOVITA Administration 150mg) Nystatin 1 applic 07/16/17 22:00 07/19/17 10:21 Nystop Powder - TP 1 applic BID JOVITA Administration Oxycodone HCl 10 mg 07/18/17 03:25 07/19/17 13:54 Roxicodone - PO 10 mg Q4H PRN Administration Pantoprazole Sodium 40 mg 07/12/17 10:45 07/19/17 10:18 Protonix - PO 40 mg DAILY JOVITA Administration Polymyxin/Trimethoprim Sulfate 1 drop 07/18/17 14:15 07/19/17 17:38 Polytrim Opthalmic Solution - OU 07/23/17 14:14 1 drop Q4HWA JOVITA Administration Torsemide 20 mg 07/18/17 17:00 07/19/17 10:18 Demadex - PO 20 mg DAILY JOVITA Administration INR, PTT INR 3.61 (0.82-1.09) H 07/19/17 06:00 CML -c/w Nilotinib -will f/u on repeat BCR ABL. -iron studies reviewed ,consistent with ACD/ACI, last EGD/Colonoscopy negative -i recommended a marrow, as I suspect that she would need it at some point or the other and as she remains in patient. She politely declined saying that she would only get it done at "[facility]" when she goes for follow-up.. -will follow-up on Hgb, no transfusion for now New afib -on coumadin -inr supra therapeutic, off of coumadin continue to monitor drft down to 2-3 -cards following ATN: -?cause -cr 1.3, coming close to baseline improving Rash: -derm eval noted -skin much better -rash consistent with drup reaction. Sepsis: -resolved -completed abx crusting of the eyes -as per pmd
[2017-07-20] MEDS: hydrOXYzine HCL 10 MG TABLET PO SCH ×5 (00:09→23:57)
[2017-07-20] MEDS: POLYMYXIN B SULFATE/TMP 10 ML OPHTHALMIC SOLUTION OU SCH ×5 (06:36→21:53)
[2017-07-20] MEDS: TASIGNA 150 MG PO SCH ×2 (06:38→21:51)
[2017-07-20] MEDS: INSULIN SLIDING SCALE (NOVOLOG) 1 VIAL SQ SCH ×4 (06:38→21:54)
[2017-07-20] MEDS: LEVOTHYROXINE NA 25 MCG TABLET (FP) PO SCH (06:39)
[2017-07-20 07:40] LABS: BASOPHIL 0.5 % (0-2.0); EOSINOPHIL 16.8 % (0-4.5); MCH 28.5 pg (25.7-33.7); MCHC 32.2 g/dl (32.0-36.0); MEAN CELL VOLUME 88.5 fl (80-96); NEUTROPHILS 51.1 % (42.8-82.8); PLATELET COUNT 187 K/MM3 (134-434); RDW 19.1 % (11.6-15.6); WHITE BLOOD COUNT 5.9 K/mm3 (4.0-10.0)
[2017-07-20 08:09] LABS: ALBUMIN 1.8 g/dl (3.4-5.0); ALK PHOS 118 U/L (45-117); ANION GAP 9 (8-16); BILIRUBIN,TOTAL 0.5 mg/dL (0.2-1.0); CALCIUM 7.6 mg/dL (8.5-10.1); CO2 21 mmol/L (21-32); CREATININE 1.3 mg/dL (0.55-1.02); GLUCOSE,RANDOM 144 mg/dL (74-106); MAGNESIUM 1.7 mg/dL (1.8-2.4); PHOSPHOROUS 3.4 mg/dL (2.5-4.9); SGOT/AST 10 U/L (15-37); SGPT/ALT 12 U/L (12-78); TOT PROT 6.1 g/dl (6.4-8.2)
[2017-07-20 08:42] LABS: INR 2.97 (0.82-1.09); PROTHROMBIN TIME (PATIENT) 33.6 SEC (9.98-11.88)
[2017-07-20] MEDS: ARFORMOTEROL TARTRATE 15 MCG/2 ML VIAL NEB SCH ×2 (09:50→22:42)
[2017-07-20] MEDS ORDERED: PT OWN MED DRAWER 7, Y5N ONE (10:24)
[2017-07-20] MEDS ORDERED: INSULIN (NOVOLOG) ASPART 100 UNITS/ML 10ML VIAL ONE ×2 (10:25→20:07)
[2017-07-20] MEDS: FERROUS SO4 325 MG TABLET (FP) PO SCH ×2 (10:29→21:52)
[2017-07-20] MEDS: morphine SO4 SUSTAINED ACTING 15 MG TABLET.SA PO SCH ×2 (10:29→21:52)
[2017-07-20] MEDS: PANTOPRAZOLE 40 MG TABLET (FP) PO SCH (10:29)
[2017-07-20] MEDS: TORSEMIDE 20 MG TABLET (FP) PO SCH (10:29)
--- NOTE | 2017-07-20 10:37 | PN ---
Progress Note (short form) - Note Progress Note: CC: afib S: no cp, palps, dizziness, sob. Current Medications Generic Name Dose Route Start Last Admin Trade Name Freq PRN Reason Stop Dose Admin Acetaminophen 650 mg 07/18/17 03:25 07/19/17 18:58 Tylenol - PO 650 mg Q6H PRN Administration PAIN Arformoterol Tartrate 1 amp 07/18/17 10:00 07/19/17 22:25 Brovana (Restricted To Pulmonology/Resp) - NEB 1 amp BID JOVITA Administration Diphenhydramine HCl 25 mg 07/12/17 11:06 07/15/17 22:21 Benadryl - PO 25 mg Q6H PRN Administration FOR ITCHING Ferrous Sulfate 325 mg 07/18/17 10:00 07/19/17 20:59 Feosol - PO 325 mg BID JOVITA Administration Fluocinonide 1 applic 07/17/17 10:15 07/19/17 21:01 Lidex 0.05% Ointment - TP 1 applic BID JOVITA Administration Hydroxyzine HCl 10 mg 07/13/17 14:15 07/20/17 06:36 Atarax - PO 10 mg Q6HPO JOVITA Administration Insulin Aspart 1 vial 07/18/17 07:00 07/20/17 06:38 Novolog Vial Sliding Scale - SQ Not Given ACHS JOVITA Protocol Lactic Acid 1 applic 07/16/17 14:45 07/19/17 10:21 Lac-Hydrin 12 TP 1 applic DAILY JOVITA Administration Levothyroxine Sodium 25 mcg 07/18/17 07:00 07/20/17 06:39 Synthroid - PO 25 mcg AM JOVITA Administration Morphine Sulfate 15 mg 07/16/17 22:00 07/19/17 21:59 Ms Contin - PO 15 mg BID JOVITA Administration Patient's Own 300 mg 07/19/17 19:31 07/20/17 06:38 Medication (Non- PO 300 mg Formulary) (Tasigna BID@0600,2000 JOVITA Administration 150mg) Nystatin 1 applic 07/16/17 22:00 07/19/17 21:02 Nystop Powder - TP 1 applic BID JOVITA Administration Oxycodone HCl 10 mg 07/18/17 03:25 07/19/17 13:54 Roxicodone - PO 10 mg Q4H PRN Administration Pantoprazole Sodium 40 mg 11/08/17 10:45 07/19/17 10:18 Protonix - PO 40 mg DAILY JOVITA Administration Polymyxin/Trimethoprim Sulfate 1 drop 07/18/17 14:15 07/20/17 06:36 Polytrim Opthalmic Solution - OU 07/23/17 14:14 1 drop Q4HWA JOVITA Administration Torsemide 20 mg 07/18/17 17:00 07/19/17 10:18 Demadex - PO 20 mg DAILY JOVITA Administration Vital Signs Temp 98.1 F 07/20/17 10:26 Pulse 86 07/20/17 10:26 Resp 16 07/20/17 10:26 BP 137/88 07/20/17 10:26 Pulse Ox 97 07/18/17 20:09 Intake & Output 07/19/17 07/19/17 07/20/17 11:59 23:59 11:59 Intake Total 200 Balance 200 Intake: IVPB 0 Oral 200 Other: Voiding Method Incontinent Incontinent Incontinent # Unmeasured Voids [place] 1 Bowel Movement No nad, no jvd rrr s1s2 no mrg cta b/l, nleff abd nd nt, obese. pos bs pos dp/pt + erythematous rash with skin sloughing trace -1+ dependent edema no c/c no diaphoresis no jaundice aaox3 CBC, BMP 07/20/17 07:20 07/20/17 07:20 echo 04/2017: tds. nl lv/rv. 1+ lae. mod mac mild-mod tr rvsp 45. A/P 66 yo f with hx htn, dm, hld, hypothyroid, obesity, possible copd, CML/anemia, p /w chills found to have uti/sepsis/asa. hospital course complicated by new afib with rvr. new afib - hgb is stable vs prior baseline. was 6's on admit, currently around 8. - this would provide little reserve if she develops bleeding on AC agent; - CHADS VASC = 3, hence not very high cva risk (3%/year) and with short period in afib. Discussed risk/benefit (see prior notes) with heme --> cleared for trial of AC. given BMI and renal function have started on coumadin, cont per inr - currently rate controlled/SR off av kia blockade - recent echo wnl ASA: - ? etiology - renal following, JANE held -cr improved now diastolic chf: - stable vol status, now back on maintenance po torsemide 20 qd venous ins/lymphedema: -chronic swelling --> as above anemia: -baseline values in past here run hgb 6s-9s. requires transfusions periodically -stable here--per heme - not thought to be from bleeding. work up ongoing. monitor with initation of AC. htn: -holding JANE (for ASA) -bp controlled hld: - Given diabetes, consider statin therapy--defer to outpt setting in light of mult acute med issues cardiac mckeon remains stable
[2017-07-20] MEDS: FLUOCINONIDE 0.05% TOP OINT (60 GM TUBE) TP SCH ×2 (10:39→21:52)
[2017-07-20] MEDS: NYSTATIN POWDER 100,000 UNITS/GM - 15 GM TOPICAL POWDER TP SCH ×2 (10:39→21:53)
[2017-07-20] MEDS: AMMONIUM LACTATE 12% LOTION 225 GM BOTTLE TP SCH (10:39)
--- NOTE | 2017-07-20 13:07 | PN ---
Progress Note, Physician Chief Complaint: Ms Hernandez says she is feeling better today. She says her eyes are much better. Still with a general malaise and fatigue. No cp, sob, n/v. - Current Medication List Current Medications: Active Medications Acetaminophen (Tylenol -) 650 mg PO Q6H PRN PRN Reason: PAIN Last Admin: 07/19/17 18:58 Dose: 650 mg Arformoterol Tartrate (Brovana (Restricted To Pulmonology/Resp) -) 1 amp NEB BID [facility] Last Admin: 07/20/17 09:50 Dose: 1 amp Diphenhydramine HCl (Benadryl -) 25 mg PO Q6H PRN PRN Reason: FOR ITCHING Last Admin: 07/15/17 22:21 Dose: 25 mg Ferrous Sulfate (Feosol -) 325 mg PO BID [facility] Last Admin: 07/20/17 10:29 Dose: 325 mg Fluocinonide (Lidex 0.05% Ointment -) 1 applic TP BID [facility] Last Admin: 07/20/17 10:39 Dose: Not Given Hydroxyzine HCl (Atarax -) 10 mg PO Q6HPO [facility] Last Admin: 07/20/17 11:17 Dose: 10 mg Insulin Aspart (Novolog Vial Sliding Scale -) 1 vial SQ ACHS [facility] PRN Reason: Protocol Last Admin: 07/20/17 11:16 Dose: 2 unit Lactic Acid (Lac-Hydrin 12) 1 applic TP DAILY [facility] Last Admin: 07/20/17 10:39 Dose: Not Given Levothyroxine Sodium (Synthroid -) 25 mcg PO AM [facility] Last Admin: 07/20/17 06:39 Dose: 25 mcg Morphine Sulfate (Ms Contin -) 15 mg PO BID [facility] Last Admin: 07/20/17 10:29 Dose: 15 mg Patient's Own Medication (Non- Formulary) (Tasigna 150mg) 300 mg PO BID@0600, 2000 [facility] Last Admin: 07/20/17 06:38 Dose: 300 mg Nystatin (Nystop Powder -) 1 applic TP BID [facility] Last Admin: 07/20/17 10:39 Dose: 1 applic Oxycodone HCl (Roxicodone -) 10 mg PO Q4H PRN Last Admin: 07/19/17 13:54 Dose: 10 mg Pantoprazole Sodium (Protonix -) 40 mg PO DAILY [facility] Last Admin: 07/20/17 10:29 Dose: 40 mg Polymyxin/Trimethoprim Sulfate (Polytrim Opthalmic Solution -) 1 drop OU Q4HWA [facility] Stop: 07/23/17 14:14 Last Admin: 07/20/17 10:34 Dose: 1 drop Torsemide (Demadex -) 20 mg PO DAILY [facility] Last Admin: 07/20/17 10:29 Dose: 20 mg - Objective Vital Signs: Vital Signs Temperature 36.7 C 07/20/17 10:26 Pulse Rate 86 07/20/17 10:26 Respiratory Rate 16 07/20/17 10:26 Blood Pressure 137/88 07/20/17 10:26 O2 Sat by Pulse Oximetry (%) 97 07/18/17 20:09 Constitutional: Yes: No Distress, Calm, Obese Cardiovascular: Yes: Regular Rate and Rhythm. No: Gallop, Murmur, Rub Respiratory: Yes: Regular, CTA Bilaterally. No: Rales, Rhonchi, Wheezes Gastrointestinal: Yes: Normal Bowel Sounds, Soft. No: Distention, Tenderness Extremities: Yes: Erythema Edema: Yes Edema: LLE: 2+, RLE: 2+ Labs: CBC, BMP 07/20/17 07:20 07/20/17 07:20 INR, PTT INR 2.97 (0.82-1.09) H 07/20/17 07:20 Problem List - Problems (1) Diabetes Code(s): E11.9 - TYPE 2 DIABETES MELLITUS WITHOUT COMPLICATIONS (2) CML (chronic myelocytic leukemia) Code(s): C92.10 - CHRONIC MYELOID LEUK, BCR/ABL-POSITIVE, NOT ACHIEVE REMIS (3) Anemia Code(s): D64.9 - ANEMIA, UNSPECIFIED Qualifiers: Anemia type: other cause Other causes of anemia: chronic disease, other Qualified Code(s): D63.8 - Anemia in other chronic diseases classified elsewhere (4) Hypothyroid Code(s): E03.9 - HYPOTHYROIDISM, UNSPECIFIED (5) COPD (chronic obstructive pulmonary disease) Code(s): J44.9 - CHRONIC OBSTRUCTIVE PULMONARY DISEASE, UNSPECIFIED (6) CHF (congestive heart failure) Code(s): I50.9 - HEART FAILURE, UNSPECIFIED Qualifiers: Congestive heart failure type: diastolic Congestive heart failure chronicity: chronic Qualified Code(s): I50.32 - Chronic diastolic (congestive ) heart failure (7) Sepsis Code(s): A41.9 - SEPSIS, UNSPECIFIED ORGANISM Qualifiers: Sepsis type: Escherichia coli Qualified Code(s): A41.51 - Sepsis due to Escherichia coli [E. coli] (8) Drug induced rash with eosinophilia and systemic symptoms Code(s): L27.0 - GEN SKIN ERUPTION DUE TO DRUGS AND MEDS TAKEN INTERNALLY; D72.1 - EOSINOPHILIA; T50.905A - ADVERSE EFFECT OF UNSP DRUG/MEDS/BIOL SUBST, INIT (9) ASA (acute kidney injury) Code(s): N17.9 - ACUTE KIDNEY FAILURE, UNSPECIFIED (10) Atrial fibrillation with RVR Code(s): I48.91 - UNSPECIFIED ATRIAL FIBRILLATION (11) UTI (urinary tract infection) Code(s): N39.0 - URINARY TRACT INFECTION, SITE NOT SPECIFIED Qualifiers: Urinary tract infection type: acute cystitis Hematuria presence: without hematuria Qualified Code(s): N30.00 - Acute cystitis without hematuria Assessment/Plan (1) Atrial fibrillation with RVR Assessment/Plan: -currently in sinus rhythm on exam -holding coumadin secondary to elevated INR -INR high normal, will not start coumadin until tomorrow Code(s): I48.91 - UNSPECIFIED ATRIAL FIBRILLATION (2) Sepsis Assessment/Plan: -resolved Code(s): A41.9 - SEPSIS, UNSPECIFIED ORGANISM Qualifiers: Sepsis type: Escherichia coli Qualified Code(s): A41.51 - Sepsis due to Escherichia coli [E. coli]; A41.51 - Sepsis due to Escherichia coli [E. coli]; A41.51 - Sepsis due to Escherichia coli [E. coli] (3) UTI (urinary tract infection) Assessment/Plan: -s/p treatment Code(s): N39.0 - URINARY TRACT INFECTION, SITE NOT SPECIFIED Qualifiers: Urinary tract infection type: acute cystitis Hematuria presence: without hematuria Qualified Code(s): N30.00 - Acute cystitis without hematuria; N30.00 - Acute cystitis without hematuria (4) ASA (acute kidney injury) Assessment/Plan: -nephrology following -improving Code(s): N17.9 - ACUTE KIDNEY FAILURE, UNSPECIFIED (5) Drug induced rash with eosinophilia and systemic symptoms Assessment/Plan: -improving -continue atarax -dermatology performed shave biopsy Code(s): L27.0 - GEN SKIN ERUPTION DUE TO DRUGS AND MEDS TAKEN INTERNALLY D72.1 - EOSINOPHILIA T50.905A - ADVERSE EFFECT OF UNSP DRUG/MEDS/BIOL SUBST, INIT (6) Anemia Assessment/Plan: -continue iron -at baseline Code(s): D64.9 - ANEMIA, UNSPECIFIED Qualifiers: Anemia type: other cause Other causes of anemia: acute posthemorrhagic Qualified Code(s): D62 - Acute posthemorrhagic anemia; D62 - Acute posthemorrhagic anemia (7) CHF (congestive heart failure) Assessment/Plan: -fluid overloaded -case d/w Dr Sanchez -continue torsemide, improving Code(s): I50.9 - HEART FAILURE, UNSPECIFIED Qualifiers: Congestive heart failure type: diastolic Congestive heart failure chronicity: chronic Qualified Code(s): I50.32 - Chronic diastolic ( congestive) heart failure; I50.32 - Chronic diastolic (congestive) heart failure ; I50.32 - Chronic diastolic (congestive) heart failure; I50.32 - Chronic diastolic (congestive) heart failure (8) CML (chronic myelocytic leukemia) Assessment/Plan: -hematology following and case discussed -tasigna restarted Code(s): C92.10 - CHRONIC MYELOID LEUK, BCR/ABL-POSITIVE, NOT ACHIEVE REMIS (9) COPD (chronic obstructive pulmonary disease) Assessment/Plan: -not in exacerbation -continue current regimen Code(s): J44.9 - CHRONIC OBSTRUCTIVE PULMONARY DISEASE, UNSPECIFIED (10) Diabetes Assessment/Plan: -continue current management Code(s): E11.9 - TYPE 2 DIABETES MELLITUS WITHOUT COMPLICATIONS (11) Hypothyroid Assessment/Plan: -continue synthroid Code(s): E03.9 - HYPOTHYROIDISM, UNSPECIFIED (12) Conjunctivitis -continue polymixin/TMP eye drops day 3 -much improved
--- NOTE | 2017-07-20 13:56 | PN ---
Progress Note, Physician History of Present Illness: starting to feel better eyes still swollen but better calm - Current Medication List Current Medications: Active Medications Acetaminophen (Tylenol -) 650 mg PO Q6H PRN PRN Reason: PAIN Last Admin: 07/19/17 18:58 Dose: 650 mg Arformoterol Tartrate (Brovana (Restricted To Pulmonology/Resp) -) 1 amp NEB BID [facility] Last Admin: 07/20/17 09:50 Dose: 1 amp Diphenhydramine HCl (Benadryl -) 25 mg PO Q6H PRN PRN Reason: FOR ITCHING Last Admin: 07/15/17 22:21 Dose: 25 mg Ferrous Sulfate (Feosol -) 325 mg PO BID [facility] Last Admin: 07/20/17 10:29 Dose: 325 mg Fluocinonide (Lidex 0.05% Ointment -) 1 applic TP BID [facility] Last Admin: 07/20/17 10:39 Dose: Not Given Hydroxyzine HCl (Atarax -) 10 mg PO Q6HPO [facility] Last Admin: 07/20/17 11:17 Dose: 10 mg Insulin Aspart (Novolog Vial Sliding Scale -) 1 vial SQ ACHS [facility] PRN Reason: Protocol Last Admin: 07/20/17 11:16 Dose: 2 unit Lactic Acid (Lac-Hydrin 12) 1 applic TP DAILY [facility] Last Admin: 07/20/17 10:39 Dose: Not Given Levothyroxine Sodium (Synthroid -) 25 mcg PO AM [facility] Last Admin: 07/20/17 06:39 Dose: 25 mcg Morphine Sulfate (Ms Contin -) 15 mg PO BID [facility] Last Admin: 07/20/17 10:29 Dose: 15 mg Patient's Own Medication (Non- Formulary) (Tasigna 150mg) 300 mg PO BID@0600, 2000 [facility] Last Admin: 07/20/17 06:38 Dose: 300 mg Nystatin (Nystop Powder -) 1 applic TP BID [facility] Last Admin: 07/20/17 10:39 Dose: 1 applic Oxycodone HCl (Roxicodone -) 10 mg PO Q4H PRN Last Admin: 07/19/17 13:54 Dose: 10 mg Pantoprazole Sodium (Protonix -) 40 mg PO DAILY [facility] Last Admin: 07/20/17 10:29 Dose: 40 mg Polymyxin/Trimethoprim Sulfate (Polytrim Opthalmic Solution -) 1 drop OU Q4HWA [facility] Stop: 07/23/17 14:14 Last Admin: 07/20/17 10:34 Dose: 1 drop Torsemide (Demadex -) 20 mg PO DAILY [facility] Last Admin: 07/20/17 10:29 Dose: 20 mg - Objective Vital Signs: Vital Signs Temperature 98.2 F 07/20/17 13:42 Pulse Rate 81 07/20/17 13:42 Respiratory Rate 18 07/20/17 13:42 Blood Pressure 123/67 07/20/17 13:42 O2 Sat by Pulse Oximetry (%) 97 07/18/17 20:09 Constitutional: Yes: Calm, Mild Distress, Obese Cardiovascular: Yes: Regular Rate and Rhythm Respiratory: Yes: Regular, Other Gastrointestinal: Yes: Normal Bowel Sounds, Soft Musculoskeletal: Yes: Other Extremities: Yes: Other Edema: LLE: Trace, RLE: Trace Integumentary: Yes: Rash, Other (rahs improving) Neurological: Yes: Alert, Oriented Psychiatric: Yes: Alert Labs: CBC, BMP 07/20/17 07:20 07/20/17 07:20 INR, PTT INR 2.97 (0.82-1.09) H 07/20/17 07:20 Assessment/Plan . Assessment/Plan (1) Atrial fibrillation with RVR Code(s): I48.91 - UNSPECIFIED ATRIAL FIBRILLATION (2) Sepsis Code(s): A41.9 - SEPSIS, UNSPECIFIED ORGANISM Qualifiers: Sepsis type: Escherichia coli Qualified Code(s): A41.51 - Sepsis due to Escherichia coli [E. coli]; A41.51 - Sepsis due to Escherichia coli [E. coli]; A41.51 - Sepsis due to Escherichia coli [E. coli] (3) UTI (urinary tract infection) Code(s): N39.0 - URINARY TRACT INFECTION, SITE NOT SPECIFIED Qualifiers: Urinary tract infection type: acute cystitis Hematuria presence: without hematuria Qualified Code(s): N30.00 - Acute cystitis without hematuria; N30.00 - Acute cystitis without hematuria (4) ASA (acute kidney injury) Code(s): N17.9 - ACUTE KIDNEY FAILURE, UNSPECIFIED (5) Drug induced rash with eosinophilia and systemic symptoms Code(s): L27.0 - GEN SKIN ERUPTION DUE TO DRUGS AND MEDS TAKEN INTERNALLY D72.1 - EOSINOPHILIA T50.905A - ADVERSE EFFECT OF UNSP DRUG/MEDS/BIOL SUBST, INIT (6) Anemia Code(s): D64.9 - ANEMIA, UNSPECIFIED Qualifiers: Anemia type: other cause Other causes of anemia: acute posthemorrhagic Qualified Code(s): D62 - Acute posthemorrhagic anemia; D62 - Acute posthemorrhagic anemia (7) CHF (congestive heart failure) Code(s): I50.9 - HEART FAILURE, UNSPECIFIED Qualifiers: Congestive heart failure type: diastolic Congestive heart failure chronicity: chronic Qualified Code(s): I50.32 - Chronic diastolic ( congestive) heart failure; I50.32 - Chronic diastolic (congestive) heart failure ; I50.32 - Chronic diastolic (congestive) heart failure; I50.32 - Chronic diastolic (congestive) heart failure (8) CML (chronic myelocytic leukemia) Code(s): C92.10 - CHRONIC MYELOID LEUK, BCR/ABL-POSITIVE, NOT ACHIEVE REMIS (9) COPD (chronic obstructive pulmonary disease) Code(s): J44.9 - CHRONIC OBSTRUCTIVE PULMONARY DISEASE, UNSPECIFIED (10) Diabetes Code(s): E11.9 - TYPE 2 DIABETES MELLITUS WITHOUT COMPLICATIONS (11) Hypothyroid Code(s): E03.9 - HYPOTHYROIDISM, UNSPECIFIED plan stable off of abx continue current mgmt skin care close monitoring
--- NOTE | 2017-07-20 14:31 | PN ---
Progress Note, Physician History of Present Illness: Pt seen and examined at bedside. She is awake and alert. She denies shortness of breath. - Current Medication List Current Medications: Active Medications Acetaminophen (Tylenol -) 650 mg PO Q6H PRN PRN Reason: PAIN Last Admin: 07/19/17 18:58 Dose: 650 mg Arformoterol Tartrate (Brovana (Restricted To Pulmonology/Resp) -) 1 amp NEB BID [facility] Last Admin: 07/20/17 09:50 Dose: 1 amp Diphenhydramine HCl (Benadryl -) 25 mg PO Q6H PRN PRN Reason: FOR ITCHING Last Admin: 07/15/17 22:21 Dose: 25 mg Ferrous Sulfate (Feosol -) 325 mg PO BID [facility] Last Admin: 07/20/17 10:29 Dose: 325 mg Fluocinonide (Lidex 0.05% Ointment -) 1 applic TP BID [facility] Last Admin: 07/20/17 10:39 Dose: Not Given Hydroxyzine HCl (Atarax -) 10 mg PO Q6HPO [facility] Last Admin: 07/20/17 11:17 Dose: 10 mg Insulin Aspart (Novolog Vial Sliding Scale -) 1 vial SQ ACHS [facility] PRN Reason: Protocol Last Admin: 07/20/17 11:16 Dose: 2 unit Lactic Acid (Lac-Hydrin 12) 1 applic TP DAILY [facility] Last Admin: 07/20/17 10:39 Dose: Not Given Levothyroxine Sodium (Synthroid -) 25 mcg PO AM [facility] Last Admin: 07/20/17 06:39 Dose: 25 mcg Morphine Sulfate (Ms Contin -) 15 mg PO BID [facility] Last Admin: 07/20/17 10:29 Dose: 15 mg Patient's Own Medication (Non- Formulary) (Tasigna 150mg) 300 mg PO BID@0600, 2000 [facility] Last Admin: 07/20/17 06:38 Dose: 300 mg Nystatin (Nystop Powder -) 1 applic TP BID [facility] Last Admin: 07/20/17 10:39 Dose: 1 applic Oxycodone HCl (Roxicodone -) 10 mg PO Q4H PRN Last Admin: 07/19/17 13:54 Dose: 10 mg Pantoprazole Sodium (Protonix -) 40 mg PO DAILY [facility] Last Admin: 07/20/17 10:29 Dose: 40 mg Polymyxin/Trimethoprim Sulfate (Polytrim Opthalmic Solution -) 1 drop OU Q4HWA [facility] Stop: 07/23/17 14:14 Last Admin: 07/20/17 10:34 Dose: 1 drop Torsemide (Demadex -) 20 mg PO DAILY [facility] Last Admin: 07/20/17 10:29 Dose: 20 mg - Objective Vital Signs: Vital Signs Temperature 98.2 F 07/20/17 13:42 Pulse Rate 81 07/20/17 13:42 Respiratory Rate 18 07/20/17 13:42 Blood Pressure 123/67 07/20/17 13:42 O2 Sat by Pulse Oximetry (%) 97 07/18/17 20:09 Constitutional: Yes: Calm Eyes: Yes: Conjunctiva Clear HENT: Yes: Atraumatic Neck: Yes: Supple Cardiovascular: Yes: S1, S2 Respiratory: Yes: CTA Bilaterally Gastrointestinal: Yes: Soft, Abdomen, Obese Genitourinary: Yes: WNL Musculoskeletal: Yes: Muscle Weakness Edema: Yes Edema: LLE: 2+, RLE: 2+ Integumentary: Yes: Rash Neurological: Yes: Oriented Psychiatric: Yes: Oriented Labs: CBC, BMP 07/20/17 07:20 07/20/17 07:20 INR, PTT INR 2.97 (0.82-1.09) H 07/20/17 07:20 Problem List - Problems (1) Diabetes Code(s): E11.9 - TYPE 2 DIABETES MELLITUS WITHOUT COMPLICATIONS (2) CML (chronic myelocytic leukemia) Code(s): C92.10 - CHRONIC MYELOID LEUK, BCR/ABL-POSITIVE, NOT ACHIEVE REMIS (3) Anemia Code(s): D64.9 - ANEMIA, UNSPECIFIED Qualifiers: Anemia type: other cause Other causes of anemia: chronic disease, other Qualified Code(s): D63.8 - Anemia in other chronic diseases classified elsewhere (4) Cellulitis of leg, left Code(s): L03.116 - CELLULITIS OF LEFT LOWER LIMB (5) CHF (congestive heart failure) Code(s): I50.9 - HEART FAILURE, UNSPECIFIED Qualifiers: Congestive heart failure type: diastolic Congestive heart failure chronicity: chronic Qualified Code(s): I50.32 - Chronic diastolic (congestive ) heart failure (6) Acute renal insufficiency Code(s): N28.9 - DISORDER OF KIDNEY AND URETER, UNSPECIFIED (7) Hyperkalemia Code(s): E87.5 - HYPERKALEMIA (8) MARIA ELENA positive Code(s): R76.8 - OTHER SPECIFIED ABNORMAL IMMUNOLOGICAL FINDINGS IN SERUM (9) TURNER (acute kidney injury) Code(s): N17.9 - ACUTE KIDNEY FAILURE, UNSPECIFIED Assessment/Plan Current Medications Generic Name Dose Route Start Last Admin Trade Name Freq PRN Reason Stop Dose Admin Acetaminophen 650 mg 07/18/17 03:25 07/19/17 18:58 Tylenol - PO 650 mg Q6H PRN Administration PAIN Arformoterol Tartrate 1 amp 07/18/17 10:00 07/20/17 09:50 Brovana (Restricted To Pulmonology/Resp) - NEB 1 amp BID [facility] Administration Diphenhydramine HCl 25 mg 07/12/17 11:06 07/15/17 22:21 Benadryl - PO 25 mg Q6H PRN Administration FOR ITCHING Ferrous Sulfate 325 mg 07/18/17 10:00 07/20/17 10:29 Feosol - PO 325 mg BID [facility] Administration Fluocinonide 1 applic 07/17/17 10:15 07/20/17 10:39 Lidex 0.05% Ointment - TP Not Given BID [facility] Hydroxyzine HCl 10 mg 07/13/17 14:15 07/20/17 11:17 Atarax - PO 10 mg Q6HPO [facility] Administration Insulin Aspart 1 vial 07/18/17 07:00 07/20/17 11:16 Novolog Vial Sliding Scale - SQ 2 unit ACHS [facility] Administration Protocol Lactic Acid 1 applic 07/16/17 14:45 07/20/17 10:39 Lac-Hydrin 12 TP Not Given DAILY [facility] Levothyroxine Sodium 25 mcg 07/18/17 07:00 07/20/17 06:39 Synthroid - PO 25 mcg AM [facility] Administration Morphine Sulfate 15 mg 07/16/17 22:00 07/20/17 10:29 Ms Contin - PO 15 mg BID [facility] Administration Patient's Own 300 mg 07/19/17 19:31 07/20/17 06:38 Medication (Non- PO 300 mg Formulary) (Tasigna BID@0600,2000 [facility] Administration 150mg) Nystatin 1 applic 07/16/17 22:00 11/16/17 10:39 Nystop Powder - TP 1 applic BID [facility] Administration Oxycodone HCl 10 mg 07/18/17 03:25 07/19/17 13:54 Roxicodone - PO 10 mg Q4H PRN Administration Pantoprazole Sodium 40 mg 07/12/17 10:45 07/20/17 10:29 Protonix - PO 40 mg DAILY [facility] Administration Polymyxin/Trimethoprim Sulfate 1 drop 07/18/17 14:15 07/20/17 10:34 Polytrim Opthalmic Solution - OU 07/23/17 14:14 1 drop Q4HWA [facility] Administration Torsemide 20 mg 07/18/17 17:00 07/20/17 10:29 Demadex - PO 20 mg DAILY [facility] Administration Laboratory Tests 07/20/17 07:20 Magnesium 1.7 L Impression 1. TURNER 2. anemia 3. rash 4. CML 5. hypothyroidism 6. HTN 7. chol 8. CHF 9. COPD 10. hyperkalemia 11. sepsis 12. new onset a-fib 13. peripheral eosinophilia Plan - cnt torsemide - replace mag - renal function stable - skin biopsy shows drug rash - repeat labs in am - will follow - likely turner from atn - will follow closely Dr Sanchez
[2017-07-20] MEDS: oxyCODONE HCL 5 MG TABLET PO PRN ×2 (15:00→19:54)
[2017-07-20] MEDS ORDERED: MAGNESIUM OXIDE 400 MG TABLET (FP) PO ONE (15:30)
--- NOTE | 2017-07-20 17:53 | PN ---
Progress Note (short form) - Note Progress Note: seen and examined NAD NCAT Skin looks better Rt eye with crust present LE changes present Last Vital Signs Temp Pulse Resp BP Pulse Ox 98.3 F 104 H 18 118/62 97 07/20/17 17:57 07/20/17 17:57 07/20/17 17:57 07/20/17 17:57 07/18/17 20:09 CBC, BMP 07/20/17 07:20 07/20/17 07:20 CML -c/w Nilotinib - repeat BCR ABL not reported?, will call path in the am -last BCR ABL with CR -iron studies reviewed ,consistent with ACD/ACI, last EGD/Colonoscopy negative -continue to monitor hgb -Hgb today is 7.7, while it is ACD/ACI, neg for EGD/colonoscopy, would suggest a marrow to r/o primary marrow causes vs cml relapse in the marrow.. pt didnt want to.. New afib -on coumadin -likely will resume tomorrow -will d/w Primary/Cards about coumadin if hgb continues to go down.. ATN: -stable , 1.3 -urine +eosinophil Rash: -skin much better -rash consistent with drup reaction. -suspect DRESS,will continue to monitor the eosinophil %, if not resolved,will consider for hematological primary w/u crusting of the eyes -improved -as per pmd ?oob to chair will follow
[2017-07-21] MEDS: TASIGNA 150 MG PO SCH ×2 (05:19→21:36)
[2017-07-21] MEDS: hydrOXYzine HCL 10 MG TABLET PO SCH ×3 (05:19→17:09)
[2017-07-21] MEDS: POLYMYXIN B SULFATE/TMP 10 ML OPHTHALMIC SOLUTION OU SCH ×5 (05:23→22:18)
[2017-07-21] MEDS ORDERED: INSULIN (NOVOLOG) ASPART 100 UNITS/ML 10ML VIAL ONE (05:35)
[2017-07-21] MEDS: INSULIN SLIDING SCALE (NOVOLOG) 1 VIAL SQ SCH ×4 (06:04→22:17)
[2017-07-21] MEDS: LEVOTHYROXINE NA 25 MCG TABLET (FP) PO SCH (06:04)
[2017-07-21] MEDS: oxyCODONE HCL 5 MG TABLET PO PRN ×2 (06:31→17:09)
[2017-07-21 07:53] LABS: BASOPHIL 0.4 % (0-2.0); EOSINOPHIL 13.1 % (0-4.5); MCHC 32.5 g/dl (32.0-36.0); MEAN CELL VOLUME 89.3 fl (80-96); MEAN PLT VOLUME 7.4 fl (7.5-11.1); NEUTROPHILS 57.1 % (42.8-82.8); PLATELET COUNT 203 K/MM3 (134-434); RDW 19.6 % (11.6-15.6); WHITE BLOOD COUNT 8.1 K/mm3 (4.0-10.0)
[2017-07-21 07:59] LABS: INR 2.22 (0.82-1.09); PROTHROMBIN TIME (PATIENT) 25.1 SEC (9.98-11.88)
[2017-07-21 08:41] LABS: ALBUMIN 1.8 g/dl (3.4-5.0); ALK PHOS 127 U/L (45-117); ANION GAP 9 (8-16); BILIRUBIN,TOTAL 0.6 mg/dL (0.2-1.0); CALCIUM 7.3 mg/dL (8.5-10.1); CO2 21 mmol/L (21-32); CREATININE 1.2 mg/dL (0.55-1.02); GLUCOSE,RANDOM 97 mg/dL (74-106); MAGNESIUM 1.6 mg/dL (1.8-2.4); SGOT/AST 14 U/L (15-37); SGPT/ALT 13 U/L (12-78); TOT PROT 6.2 g/dl (6.4-8.2)
[2017-07-21] MEDS: ARFORMOTEROL TARTRATE 15 MCG/2 ML VIAL NEB SCH ×2 (10:06→22:32)
--- NOTE | 2017-07-21 10:16 | PN ---
Progress Note, Physician History of Present Illness: starting to feel better eyes improving swelling improving skin starting to look better still itching - Current Medication List Current Medications: Active Medications Acetaminophen (Tylenol -) 650 mg PO Q6H PRN PRN Reason: PAIN Last Admin: 07/19/17 18:58 Dose: 650 mg Arformoterol Tartrate (Brovana (Restricted To Pulmonology/Resp) -) 1 amp NEB BID [facility] Last Admin: 07/21/17 10:06 Dose: 1 amp Diphenhydramine HCl (Benadryl -) 25 mg PO Q6H PRN PRN Reason: FOR ITCHING Last Admin: 07/15/17 22:21 Dose: 25 mg Ferrous Sulfate (Feosol -) 325 mg PO BID [facility] Last Admin: 07/20/17 21:52 Dose: 325 mg Fluocinonide (Lidex 0.05% Ointment -) 1 applic TP BID [facility] Last Admin: 07/20/17 21:52 Dose: Not Given Hydroxyzine HCl (Atarax -) 10 mg PO Q6HPO [facility] Last Admin: 07/21/17 05:19 Dose: 10 mg Insulin Aspart (Novolog Vial Sliding Scale -) 1 vial SQ ACHS [facility] PRN Reason: Protocol Last Admin: 07/21/17 06:04 Dose: Not Given Lactic Acid (Lac-Hydrin 12) 1 applic TP DAILY [facility] Last Admin: 07/20/17 10:39 Dose: Not Given Levothyroxine Sodium (Synthroid -) 25 mcg PO AM [facility] Last Admin: 07/21/17 06:04 Dose: 25 mcg Morphine Sulfate (Ms Contin -) 15 mg PO BID [facility] Last Admin: 07/20/17 21:52 Dose: 15 mg Patient's Own Medication (Non- Formulary) (Tasigna 150mg) 300 mg PO BID@0600, 2000 [facility] Last Admin: 07/21/17 05:19 Dose: Not Given Nystatin (Nystop Powder -) 1 applic TP BID [facility] Last Admin: 07/20/17 21:53 Dose: 1 applic Oxycodone HCl (Roxicodone -) 10 mg PO Q4H PRN Last Admin: 07/21/17 06:31 Dose: 10 mg Pantoprazole Sodium (Protonix -) 40 mg PO DAILY [facility] Last Admin: 07/20/17 10:29 Dose: 40 mg Polymyxin/Trimethoprim Sulfate (Polytrim Opthalmic Solution -) 1 drop OU Q4HWA [facility] Stop: 07/23/17 14:14 Last Admin: 07/21/17 05:23 Dose: 1 drop Torsemide (Demadex -) 20 mg PO DAILY [facility] Last Admin: 07/20/17 10:29 Dose: 20 mg - Objective Vital Signs: Vital Signs Temperature 98 F 07/21/17 05:41 Pulse Rate 81 07/21/17 05:41 Respiratory Rate 20 07/21/17 05:41 Blood Pressure 143/66 07/21/17 05:41 O2 Sat by Pulse Oximetry (%) 100 07/20/17 21:00 Constitutional: Yes: No Distress, Calm, Obese Cardiovascular: Yes: Regular Rate and Rhythm Respiratory: Yes: Regular, CTA Bilaterally Gastrointestinal: Yes: Normal Bowel Sounds, Soft Musculoskeletal: Yes: Other Extremities: Yes: Other Integumentary: Yes: Rash (improving) Neurological: Yes: Alert, Oriented Psychiatric: Yes: Alert, Oriented Labs: CBC, BMP 07/21/17 06:30 07/21/17 06:30 INR, PTT INR 2.22 (0.82-1.09) H 07/21/17 06:30 Assessment/Plan . Assessment/Plan (1) Atrial fibrillation with RVR Code(s): I48.91 - UNSPECIFIED ATRIAL FIBRILLATION (2) Sepsis Code(s): A41.9 - SEPSIS, UNSPECIFIED ORGANISM Qualifiers: Sepsis type: Escherichia coli Qualified Code(s): A41.51 - Sepsis due to Escherichia coli [E. coli]; A41.51 - Sepsis due to Escherichia coli [E. coli]; A41.51 - Sepsis due to Escherichia coli [E. coli] (3) UTI (urinary tract infection) Code(s): N39.0 - URINARY TRACT INFECTION, SITE NOT SPECIFIED Qualifiers: Urinary tract infection type: acute cystitis Hematuria presence: without hematuria Qualified Code(s): N30.00 - Acute cystitis without hematuria; N30.00 - Acute cystitis without hematuria (4) ASA (acute kidney injury) Code(s): N17.9 - ACUTE KIDNEY FAILURE, UNSPECIFIED (5) Drug induced rash with eosinophilia and systemic symptoms Code(s): L27.0 - GEN SKIN ERUPTION DUE TO DRUGS AND MEDS TAKEN INTERNALLY D72.1 - EOSINOPHILIA T50.905A - ADVERSE EFFECT OF UNSP DRUG/MEDS/BIOL SUBST, INIT (6) Anemia Code(s): D64.9 - ANEMIA, UNSPECIFIED Qualifiers: Anemia type: other cause Other causes of anemia: acute posthemorrhagic Qualified Code(s): D62 - Acute posthemorrhagic anemia; D62 - Acute posthemorrhagic anemia (7) CHF (congestive heart failure) Code(s): I50.9 - HEART FAILURE, UNSPECIFIED Qualifiers: Congestive heart failure type: diastolic Congestive heart failure chronicity: chronic Qualified Code(s): I50.32 - Chronic diastolic ( congestive) heart failure; I50.32 - Chronic diastolic (congestive) heart failure ; I50.32 - Chronic diastolic (congestive) heart failure; I50.32 - Chronic diastolic (congestive) heart failure (8) CML (chronic myelocytic leukemia) Code(s): C92.10 - CHRONIC MYELOID LEUK, BCR/ABL-POSITIVE, NOT ACHIEVE REMIS (9) COPD (chronic obstructive pulmonary disease) Code(s): J44.9 - CHRONIC OBSTRUCTIVE PULMONARY DISEASE, UNSPECIFIED (10) Diabetes Code(s): E11.9 - TYPE 2 DIABETES MELLITUS WITHOUT COMPLICATIONS (11) Hypothyroid Code(s): E03.9 - HYPOTHYROIDISM, UNSPECIFIED plan stable off of abx continue current mgmt skin care close monitoring conintue cream for local application patient still itching monitor for infections
[2017-07-21] MEDS: PANTOPRAZOLE 40 MG TABLET (FP) PO SCH (10:23)
[2017-07-21] MEDS: TORSEMIDE 20 MG TABLET (FP) PO SCH (10:24)
[2017-07-21] MEDS: morphine SO4 SUSTAINED ACTING 15 MG TABLET.SA PO SCH ×2 (10:24→22:16)
[2017-07-21] MEDS: FERROUS SO4 325 MG TABLET (FP) PO SCH ×2 (10:24→22:16)
[2017-07-21] MEDS: AMMONIUM LACTATE 12% LOTION 225 GM BOTTLE TP SCH (10:45)
--- NOTE | 2017-07-21 11:55 | PN ---
Progress Note, Physician Chief Complaint: Ms Hernandez says she is better, however saying that she itches at night because she is washed after cream is applied. No cp, sob, n/v. Says eyes are feeling much better. - Current Medication List Current Medications: Active Medications Acetaminophen (Tylenol -) 650 mg PO Q6H PRN PRN Reason: PAIN Last Admin: 07/19/17 18:58 Dose: 650 mg Arformoterol Tartrate (Brovana (Restricted To Pulmonology/Resp) -) 1 amp NEB BID [facility] Last Admin: 07/21/17 10:06 Dose: 1 amp Diphenhydramine HCl (Benadryl -) 25 mg PO Q6H PRN PRN Reason: FOR ITCHING Last Admin: 07/15/17 22:21 Dose: 25 mg Ferrous Sulfate (Feosol -) 325 mg PO BID [facility] Last Admin: 07/21/17 10:24 Dose: 325 mg Fluocinonide (Lidex 0.05% Ointment -) 1 applic TP BID [facility] Last Admin: 07/20/17 21:52 Dose: Not Given Hydroxyzine HCl (Atarax -) 10 mg PO Q6HPO [facility] Last Admin: 07/21/17 05:19 Dose: 10 mg Insulin Aspart (Novolog Vial Sliding Scale -) 1 vial SQ ACHS [facility] PRN Reason: Protocol Last Admin: 07/21/17 06:04 Dose: Not Given Lactic Acid (Lac-Hydrin 12) 1 applic TP DAILY [facility] Last Admin: 07/20/17 10:39 Dose: Not Given Levothyroxine Sodium (Synthroid -) 25 mcg PO AM [facility] Last Admin: 07/21/17 06:04 Dose: 25 mcg Magnesium Sulfate (Magnesium Sulfate) 2 gm IVPB ONCE ONE Stop: 07/21/17 11:53 Morphine Sulfate (Ms Contin -) 15 mg PO BID [facility] Last Admin: 07/21/17 10:24 Dose: 15 mg Patient's Own Medication (Non- Formulary) (Tasigna 150mg) 300 mg PO BID@0600, 2000 [facility] Last Admin: 07/21/17 05:19 Dose: Not Given Nystatin (Nystop Powder -) 1 applic TP BID [facility] Last Admin: 07/20/17 21:53 Dose: 1 applic Oxycodone HCl (Roxicodone -) 10 mg PO Q4H PRN Last Admin: 07/21/17 06:31 Dose: 10 mg Pantoprazole Sodium (Protonix -) 40 mg PO DAILY [facility] Last Admin: 07/21/17 10:23 Dose: 40 mg Polymyxin/Trimethoprim Sulfate (Polytrim Opthalmic Solution -) 1 drop OU Q4HWA [facility] Stop: 07/23/17 14:14 Last Admin: 07/21/17 05:23 Dose: 1 drop Torsemide (Demadex -) 20 mg PO DAILY [facility] Last Admin: 07/21/17 10:24 Dose: 20 mg Warfarin Sodium (Coumadin -) 3 mg PO DAILY@1800 [facility] - Objective Vital Signs: Vital Signs Temperature 36.6 C 07/21/17 05:41 Pulse Rate 81 07/21/17 05:41 Respiratory Rate 20 07/21/17 05:41 Blood Pressure 143/66 07/21/17 05:41 O2 Sat by Pulse Oximetry (%) 100 07/20/17 21:00 Constitutional: Yes: No Distress, Calm, Obese Eyes: Yes: Other (minimal purulence, L>R) Cardiovascular: Yes: Regular Rate and Rhythm. No: Gallop, Murmur, Rub Respiratory: Yes: Regular, CTA Bilaterally. No: Rales, Rhonchi, Wheezes Gastrointestinal: Yes: Normal Bowel Sounds, Soft. No: Distention, Tenderness Extremities: Yes: Erythema Edema: Yes Edema: LUE: 2+, RUE: 2+, LLE: 2+, RLE: 2+ Integumentary: Yes: Rash (drying, much improved) Labs: CBC, BMP 07/21/17 06:30 07/21/17 06:30 INR, PTT INR 2.22 (0.82-1.09) H 07/21/17 06:30 Problem List - Problems (1) Diabetes Code(s): E11.9 - TYPE 2 DIABETES MELLITUS WITHOUT COMPLICATIONS (2) CML (chronic myelocytic leukemia) Code(s): C92.10 - CHRONIC MYELOID LEUK, BCR/ABL-POSITIVE, NOT ACHIEVE REMIS (3) Anemia Code(s): D64.9 - ANEMIA, UNSPECIFIED Qualifiers: Anemia type: other cause Other causes of anemia: chronic disease, other Qualified Code(s): D63.8 - Anemia in other chronic diseases classified elsewhere (4) Hypothyroid Code(s): E03.9 - HYPOTHYROIDISM, UNSPECIFIED (5) COPD (chronic obstructive pulmonary disease) Code(s): J44.9 - CHRONIC OBSTRUCTIVE PULMONARY DISEASE, UNSPECIFIED (6) CHF (congestive heart failure) Code(s): I50.9 - HEART FAILURE, UNSPECIFIED Qualifiers: Congestive heart failure type: diastolic Congestive heart failure chronicity: chronic Qualified Code(s): I50.32 - Chronic diastolic (congestive ) heart failure (7) Sepsis Code(s): A41.9 - SEPSIS, UNSPECIFIED ORGANISM Qualifiers: Sepsis type: Escherichia coli Qualified Code(s): A41.51 - Sepsis due to Escherichia coli [E. coli] (8) Drug induced rash with eosinophilia and systemic symptoms Code(s): L27.0 - GEN SKIN ERUPTION DUE TO DRUGS AND MEDS TAKEN INTERNALLY; D72.1 - EOSINOPHILIA; T50.905A - ADVERSE EFFECT OF UNSP DRUG/MEDS/BIOL SUBST, INIT (9) ASA (acute kidney injury) Code(s): N17.9 - ACUTE KIDNEY FAILURE, UNSPECIFIED (10) Atrial fibrillation with RVR Code(s): I48.91 - UNSPECIFIED ATRIAL FIBRILLATION (11) UTI (urinary tract infection) Code(s): N39.0 - URINARY TRACT INFECTION, SITE NOT SPECIFIED Qualifiers: Urinary tract infection type: acute cystitis Hematuria presence: without hematuria Qualified Code(s): N30.00 - Acute cystitis without hematuria Assessment/Plan (1) Atrial fibrillation with RVR Assessment/Plan: -currently in sinus rhythm on exam -restart coumadin today at 5mg -recheck INR tomorrow Code(s): I48.91 - UNSPECIFIED ATRIAL FIBRILLATION (2) Sepsis Assessment/Plan: -resolved Code(s): A41.9 - SEPSIS, UNSPECIFIED ORGANISM Qualifiers: Sepsis type: Escherichia coli Qualified Code(s): A41.51 - Sepsis due to Escherichia coli [E. coli]; A41.51 - Sepsis due to Escherichia coli [E. coli]; A41.51 - Sepsis due to Escherichia coli [E. coli] (3) UTI (urinary tract infection) Assessment/Plan: -s/p treatment Code(s): N39.0 - URINARY TRACT INFECTION, SITE NOT SPECIFIED Qualifiers: Urinary tract infection type: acute cystitis Hematuria presence: without hematuria Qualified Code(s): N30.00 - Acute cystitis without hematuria; N30.00 - Acute cystitis without hematuria (4) ASA (acute kidney injury) Assessment/Plan: -nephrology following -improving Code(s): N17.9 - ACUTE KIDNEY FAILURE, UNSPECIFIED (5) Drug induced rash with eosinophilia and systemic symptoms Assessment/Plan: -improving -continue atarax -dermatology performed shave biopsy showing allergic reaction Code(s): L27.0 - GEN SKIN ERUPTION DUE TO DRUGS AND MEDS TAKEN INTERNALLY D72.1 - EOSINOPHILIA T50.905A - ADVERSE EFFECT OF UNSP DRUG/MEDS/BIOL SUBST, INIT (6) Anemia Assessment/Plan: -continue iron -at baseline Code(s): D64.9 - ANEMIA, UNSPECIFIED Qualifiers: Anemia type: other cause Other causes of anemia: acute posthemorrhagic Qualified Code(s): D62 - Acute posthemorrhagic anemia; D62 - Acute posthemorrhagic anemia (7) CHF (congestive heart failure) Assessment/Plan: -fluid overloaded -case d/w Dr Sanchez -continue torsemide, improving Code(s): I50.9 - HEART FAILURE, UNSPECIFIED Qualifiers: Congestive heart failure type: diastolic Congestive heart failure chronicity: chronic Qualified Code(s): I50.32 - Chronic diastolic ( congestive) heart failure; I50.32 - Chronic diastolic (congestive) heart failure ; I50.32 - Chronic diastolic (congestive) heart failure; I50.32 - Chronic diastolic (congestive) heart failure (8) CML (chronic myelocytic leukemia) Assessment/Plan: -hematology following and case discussed -stevenigna restarted Code(s): C92.10 - CHRONIC MYELOID LEUK, BCR/ABL-POSITIVE, NOT ACHIEVE REMIS (9) COPD (chronic obstructive pulmonary disease) Assessment/Plan: -not in exacerbation -continue current regimen Code(s): J44.9 - CHRONIC OBSTRUCTIVE PULMONARY DISEASE, UNSPECIFIED (10) Diabetes Assessment/Plan: -continue current management Code(s): E11.9 - TYPE 2 DIABETES MELLITUS WITHOUT COMPLICATIONS (11) Hypothyroid Assessment/Plan: -continue synthroid Code(s): E03.9 - HYPOTHYROIDISM, UNSPECIFIED (12) Conjunctivitis -continue polymixin/TMP eye drops day 4 -much improved
--- NOTE | 2017-07-21 11:58 | PN ---
Progress Note (short form) - Note Progress Note: CC: afib S: no cp, palps, dizziness, sob. Current Medications Generic Name Dose Route Start Last Admin Trade Name Freq PRN Reason Stop Dose Admin Acetaminophen 650 mg 07/18/17 03:25 07/19/17 18:58 Tylenol - PO 650 mg Q6H PRN Administration PAIN Arformoterol Tartrate 1 amp 07/18/17 10:00 07/21/17 10:06 Brovana (Restricted To Pulmonology/Resp) - NEB 1 amp BID [facility] Administration Diphenhydramine HCl 25 mg 07/12/17 11:06 07/15/17 22:21 Benadryl - PO 25 mg Q6H PRN Administration FOR ITCHING Ferrous Sulfate 325 mg 07/18/17 10:00 07/21/17 10:24 Feosol - PO 325 mg BID [facility] Administration Fluocinonide 1 applic 07/17/17 10:15 07/20/17 21:52 Lidex 0.05% Ointment - TP Not Given BID [facility] Hydroxyzine HCl 10 mg 07/13/17 14:15 07/21/17 05:19 Atarax - PO 10 mg Q6HPO [facility] Administration Insulin Aspart 1 vial 07/18/17 07:00 07/21/17 06:04 Novolog Vial Sliding Scale - SQ Not Given ACHS [facility] Protocol Lactic Acid 1 applic 07/16/17 14:45 07/20/17 10:39 Lac-Hydrin 12 TP Not Given DAILY [facility] Levothyroxine Sodium 25 mcg 07/18/17 07:00 07/21/17 06:04 Synthroid - PO 25 mcg AM [facility] Administration Morphine Sulfate 15 mg 07/16/17 22:00 07/21/17 10:24 Ms Contin - PO 15 mg BID [facility] Administration Patient's Own 300 mg 07/19/17 19:31 07/21/17 05:19 Medication (Non- PO Not Given Formulary) (Tasigna BID@0600,2000 [facility] 150mg) Nystatin 1 applic 07/16/17 22:00 07/20/17 21:53 Nystop Powder - TP 1 applic BID [facility] Administration Oxycodone HCl 10 mg 07/18/17 03:25 07/21/17 06:31 Roxicodone - PO 10 mg Q4H PRN Administration Pantoprazole Sodium 40 mg 07/12/17 10:45 07/21/17 10:23 Protonix - PO 40 mg DAILY [facility] Administration Polymyxin/Trimethoprim Sulfate 1 drop 07/18/17 14:15 07/21/17 05:23 Polytrim Opthalmic Solution - OU 07/23/17 14:14 1 drop Q4HWA [facility] Administration Torsemide 20 mg 07/18/17 17:00 07/21/17 10:24 Demadex - PO 20 mg DAILY [facility] Administration Vital Signs Period Temp Pulse Resp BP Sys/Machado Pulse Ox Last 24 Hr 98 F-98.9 F 81-104 18-20 100-149/55-70 100 nad, no jvd rrr s1s2 no mrg cta b/l, nleff abd nd nt, obese. pos bs pos dp/pt + erythematous rash with skin sloughing trace -1+ dependent edema no c/c no diaphoresis no jaundice aaox3 CBC, BMP 07/21/17 06:30 07/21/17 06:30 echo 04/2017: tds. nl lv/rv. 1+ lae. mod mac mild-mod tr rvsp 45. A/P 66 yo f with hx htn, dm, hld, hypothyroid, obesity, possible copd, CML/anemia, p /w chills found to have uti/sepsis/asa. hospital course complicated by new afib with rvr. new afib - hgb is stable vs prior baseline. was 6's on admit, currently around 8. - this would provide little reserve if she develops bleeding on AC agent; - CHADS VASC = 3, hence not very high cva risk (3%/year) and with short period in afib. Discussed risk/benefit (see prior notes) with heme --> cleared for trial of AC. given BMI and renal function have started on coumadin, cont per inr - currently rate controlled/SR off av kia blockade - recent echo wnl ASA: - ? etiology - renal following, JANE held -cr improved now diastolic chf: - stable vol status, now back on maintenance po torsemide 20 qd venous ins/lymphedema: -chronic swelling --> as above anemia: -baseline values in past here run hgb 6s-9s. requires transfusions periodically -stable here--per heme - not thought to be from bleeding. work up ongoing. monitor with initation of AC. htn: -holding JANE (for ASA) -bp controlled hld: - Given diabetes, consider statin therapy--defer to outpt setting in light of mult acute med issues cardiac mckeon remains stable
[2017-07-21] MEDS: NYSTATIN POWDER 100,000 UNITS/GM - 15 GM TOPICAL POWDER TP SCH ×2 (12:00→22:17)
[2017-07-21] MEDS: FLUOCINONIDE 0.05% TOP OINT (60 GM TUBE) TP SCH ×2 (12:01→22:17)
[2017-07-21] MEDS ORDERED: MAGNESIUM SULF 50% (8.12 MEQ/2 ML-1 GM VIAL) IVPB ONE (12:45)
[2017-07-21] MEDS: MAGNESIUM OXIDE 400 MG TABLET (FP) PO SCH ×2 (15:48→22:16)
--- NOTE | 2017-07-21 16:59 | PN ---
Progress Note, Physician History of Present Illness: Pt seen and examined at bedside. She has not complaints. She feels edema is improving. - Current Medication List Current Medications: Active Medications Acetaminophen (Tylenol -) 650 mg PO Q6H PRN PRN Reason: PAIN Last Admin: 07/19/17 18:58 Dose: 650 mg Arformoterol Tartrate (Brovana (Restricted To Pulmonology/Resp) -) 1 amp NEB BID [facility] Last Admin: 07/21/17 10:06 Dose: 1 amp Diphenhydramine HCl (Benadryl -) 25 mg PO Q6H PRN PRN Reason: FOR ITCHING Last Admin: 07/15/17 22:21 Dose: 25 mg Ferrous Sulfate (Feosol -) 325 mg PO BID [facility] Last Admin: 07/21/17 10:24 Dose: 325 mg Fluocinonide (Lidex 0.05% Ointment -) 1 applic TP BID [facility] Last Admin: 07/21/17 12:01 Dose: 1 applic Hydroxyzine HCl (Atarax -) 10 mg PO Q6HPO [facility] Last Admin: 07/21/17 12:22 Dose: 10 mg Insulin Aspart (Novolog Vial Sliding Scale -) 1 vial SQ ACHS [facility] PRN Reason: Protocol Last Admin: 07/21/17 12:20 Dose: 2 unit Lactic Acid (Lac-Hydrin 12) 1 applic TP DAILY [facility] Last Admin: 07/21/17 10:45 Dose: Not Given Levothyroxine Sodium (Synthroid -) 25 mcg PO AM [facility] Last Admin: 07/21/17 06:04 Dose: 25 mcg Magnesium Oxide (Mag-Ox -) 400 mg PO BID [facility] Last Admin: 07/21/17 15:48 Dose: 400 mg Morphine Sulfate (Ms Contin -) 15 mg PO BID [facility] Last Admin: 07/21/17 10:24 Dose: 15 mg Patient's Own Medication (Non- Formulary) (Tasigna 150mg) 300 mg PO BID@0600, 2000 [facility] Last Admin: 07/21/17 05:19 Dose: Not Given Nystatin (Nystop Powder -) 1 applic TP BID [facility] Last Admin: 07/21/17 12:00 Dose: 1 applic Oxycodone HCl (Roxicodone -) 10 mg PO Q4H PRN Last Admin: 07/21/17 06:31 Dose: 10 mg Pantoprazole Sodium (Protonix -) 40 mg PO DAILY [facility] Last Admin: 07/21/17 10:23 Dose: 40 mg Polymyxin/Trimethoprim Sulfate (Polytrim Opthalmic Solution -) 1 drop OU Q4HWA [facility] Stop: 07/23/17 14:14 Last Admin: 07/21/17 15:50 Dose: 1 drop Torsemide (Demadex -) 20 mg PO DAILY [facility] Last Admin: 07/21/17 10:24 Dose: 20 mg Warfarin Sodium (Coumadin -) 5 mg PO DAILY@1800 [facility] - Objective Vital Signs: Vital Signs Temperature 98.2 F 07/21/17 13:50 Pulse Rate 87 07/21/17 13:50 Respiratory Rate 18 07/21/17 13:50 Blood Pressure 113/45 07/21/17 13:50 O2 Sat by Pulse Oximetry (%) 100 07/20/17 21:00 Constitutional: Yes: Calm Eyes: Yes: Conjunctiva Clear HENT: Yes: Atraumatic Neck: Yes: Supple Cardiovascular: Yes: S1, S2 Respiratory: Yes: On Nasal O2 Gastrointestinal: Yes: Soft, Abdomen, Obese Genitourinary: Yes: Incontinence Musculoskeletal: Yes: Muscle Weakness Edema: Yes Edema: LLE: 2+, RLE: 2+ Integumentary: Yes: Rash Neurological: Yes: Oriented Psychiatric: Yes: Oriented Labs: CBC, BMP 07/21/17 06:30 07/21/17 06:30 INR, PTT INR 2.22 (0.82-1.09) H 07/21/17 06:30 Problem List - Problems (1) Diabetes Code(s): E11.9 - TYPE 2 DIABETES MELLITUS WITHOUT COMPLICATIONS (2) CML (chronic myelocytic leukemia) Code(s): C92.10 - CHRONIC MYELOID LEUK, BCR/ABL-POSITIVE, NOT ACHIEVE REMIS (3) Anemia Code(s): D64.9 - ANEMIA, UNSPECIFIED Qualifiers: Anemia type: other cause Other causes of anemia: chronic disease, other Qualified Code(s): D63.8 - Anemia in other chronic diseases classified elsewhere (4) Cellulitis of leg, left Code(s): L03.116 - CELLULITIS OF LEFT LOWER LIMB (5) CHF (congestive heart failure) Code(s): I50.9 - HEART FAILURE, UNSPECIFIED Qualifiers: Congestive heart failure type: diastolic Congestive heart failure chronicity: chronic Qualified Code(s): I50.32 - Chronic diastolic (congestive ) heart failure (6) Acute renal insufficiency Code(s): N28.9 - DISORDER OF KIDNEY AND URETER, UNSPECIFIED (7) Hyperkalemia Code(s): E87.5 - HYPERKALEMIA (8) MARIA ELENA positive Code(s): R76.8 - OTHER SPECIFIED ABNORMAL IMMUNOLOGICAL FINDINGS IN SERUM (9) TURNER (acute kidney injury) Code(s): N17.9 - ACUTE KIDNEY FAILURE, UNSPECIFIED Assessment/Plan Current Medications Generic Name Dose Route Start Last Admin Trade Name Freq PRN Reason Stop Dose Admin Acetaminophen 650 mg 07/18/17 03:25 07/19/17 18:58 Tylenol - PO 650 mg Q6H PRN Administration PAIN Arformoterol Tartrate 1 amp 07/18/17 10:00 07/21/17 10:06 Brovana (Restricted To Pulmonology/Resp) - NEB 1 amp BID [facility] Administration Diphenhydramine HCl 25 mg 07/12/17 11:06 07/15/17 22:21 Benadryl - PO 25 mg Q6H PRN Administration FOR ITCHING Ferrous Sulfate 325 mg 07/18/17 10:00 07/21/17 10:24 Feosol - PO 325 mg BID [facility] Administration Fluocinonide 1 applic 07/17/17 10:15 07/21/17 12:01 Lidex 0.05% Ointment - TP 1 applic BID [facility] Administration Hydroxyzine HCl 10 mg 07/13/17 14:15 07/21/17 12:22 Atarax - PO 10 mg Q6HPO [facility] Administration Insulin Aspart 1 vial 07/18/17 07:00 07/21/17 12:20 Novolog Vial Sliding Scale - SQ 2 unit ACHS [facility] Administration Protocol Lactic Acid 1 applic 07/16/17 14:45 07/21/17 10:45 Lac-Hydrin 12 TP Not Given DAILY [facility] Levothyroxine Sodium 25 mcg 07/18/17 07:00 07/21/17 06:04 Synthroid - PO 25 mcg AM [facility] Administration Magnesium Oxide 400 mg 07/21/17 15:00 07/21/17 15:48 Mag-Ox - PO 400 mg BID [facility] Administration Morphine Sulfate 15 mg 07/16/17 22:00 07/21/17 10:24 Ms Contin - PO 15 mg BID [facility] Administration Patient's Own 300 mg 07/19/17 19:31 07/21/17 05:19 Medication (Non- PO Not Given Formulary) (Tasigna BID@0600,1999 [facility] 150mg) Nystatin 1 applic 07/16/17 22:00 07/21/17 12:00 Nystop Powder - TP 1 applic BID [facility] Administration Oxycodone HCl 10 mg 07/18/17 03:25 07/21/17 06:31 Roxicodone - PO 10 mg Q4H PRN Administration Pantoprazole Sodium 40 mg 07/12/17 10:45 07/21/17 10:23 Protonix - PO 40 mg DAILY [facility] Administration Polymyxin/Trimethoprim Sulfate 1 drop 07/18/17 14:15 07/21/17 15:50 Polytrim Opthalmic Solution - OU 07/23/17 14:14 1 drop Q4HWA [facility] Administration Torsemide 20 mg 07/18/17 17:00 07/21/17 10:24 Demadex - PO 20 mg DAILY [facility] Administration Warfarin Sodium 5 mg 07/21/17 18:00 Coumadin - PO DAILY@1800 [facility] Impression 1. TURNER 2. anemia 3. rash 4. CML 5. hypothyroidism 6. HTN 7. chol 8. CHF 9. COPD 10. hyperkalemia 11. sepsis 12. new onset a-fib 13. peripheral eosinophilia Plan - renal function is improving - cont torsemide at 20 mg - repeat labs in am - will follow - likely turner from atn - will follow closely Dr Sanchez
[2017-07-21] MEDS ORDERED: WARFARIN NA 3 MG TABLET PO SCH (18:00)
[2017-07-21] MEDS: WARFARIN NA 5 MG TABLET (UD) PO SCH (18:02)
--- NOTE | 2017-07-21 18:20 | PN ---
Progress Note (short form) - Note Progress Note: PAtient seen and examined Denies any complaints Last Vital Signs Temp Pulse Resp BP Pulse Ox 98.2 F 63 20 150/85 100 07/21/17 18:18 07/21/17 18:18 07/21/17 18:18 07/21/17 18:18 07/20/17 21:00 Cor: RSR, No murmurs, No gallops Lungs: Clear to P&A Abd: Soft, Normal bowel sounds, No organomegaly Ext:chronic edema skin: extensive erythematous rash/itching Abnormal Lab Results 07/12/17 07/13/17 07/13/17 05:35 06:45 06:45 RBC 2.89 L Hgb 8.4 L Hct 25.5 L RDW 17.5 H PT with INR INR PTT (Actin FS) 56.9 H D Carbon Dioxide BUN Creatinine Random Glucose Calcium Phosphorus Magnesium TIBC 168 L AST ALT Alkaline Phosphatase Total Protein Albumin 07/13/17 07/13/17 06:45 06:45 RBC Hgb Hct RDW PT with INR 14.70 H INR 1.30 H PTT (Actin FS) Carbon Dioxide 18 L BUN 61 H Creatinine 2.2 H Random Glucose 111 H Calcium 7.3 L Phosphorus 5.7 H Magnesium 1.7 L TIBC AST 8 L ALT 11 L Alkaline Phosphatase 129 H Total Protein 6.1 L Albumin 1.8 L Active Medications Generic Name Dose Route Start Last Admin Trade Name Freq PRN Reason Stop Dose Admin Acetaminophen 650 mg 07/07/17 19:54 07/13/17 10:19 Tylenol - PO 650 mg Q6H PRN Administration PAIN Arformoterol Tartrate 1 amp 07/08/17 12:30 07/13/17 10:20 Brovana (Restricted To Pulmonology/Resp) - NEB 1 amp BID JOVITA Administration Diphenhydramine HCl 25 mg 07/12/17 11:06 07/13/17 09:35 Benadryl - PO 25 mg Q6H PRN Administration FOR ITCHING Ferrous Sulfate 325 mg 07/07/17 22:00 07/13/17 09:45 Feosol - PO 325 mg BID JOVITA Administration Heparin Sodium (Porcine) 5,000 unit 07/12/17 11:02 07/12/17 23:11 Heparin - IVPUSH 5,000 unit PRN PRN Administration Heparin Heparin Sodium (Porcine) 1,000 unit 07/12/17 11:02 Heparin - IVPUSH PRN PRN Heparin Hydroxyzine HCl 10 mg 07/13/17 14:15 07/13/17 15:09 Atarax - PO 10 mg Q6HPO JOVITA Administration Vancomycin HCl 1,000 mg/ 250 mls @ 166.667 mls/hr 07/10/17 11:00 07/12/17 11: 15 Dextrose IVPB Not Given Q48H JOVITA Heparin Sodium (Porcine) 25, 500 mls @ 20 mls/hr 07/11/17 19:15 07/13/17 10: 20 000 unit/ Sodium Chloride IV 1,300 unit/hr TITR JOVITA 26 mls/hr Protocol Titration 1,000 UNIT/HR Insulin Aspart 1 vial 07/07/17 22:00 07/13/17 12:37 Novolog Vial Sliding Scale - SQ 2 units ACHS JOVITA Administration Protocol Levothyroxine Sodium 25 mcg 07/08/17 07:00 07/11/17 06:27 Synthroid - PO 25 mcg AM JOVITA Administration Patient's Own 300 mg 07/13/17 10:30 07/13/17 10:36 Medication (Non- PO 300 mg Formulary) (Tasigna Q12H JOVITA Administration 150mg) Oxycodone HCl 10 mg 07/07/17 20:00 07/13/17 15:09 Roxicodone - PO 10 mg Q4H PRN Administration Pantoprazole Sodium 40 mg 07/12/17 10:45 07/13/17 09:45 Protonix - PO 40 mg DAILY JOVITA Administration Warfarin Sodium 10 mg 07/13/17 18:00 Coumadin - PO 07/13/17 18:01 ONCE@1800 ONE A/P CML restarted tasigna/nilotinib Has been in molecular remission as on 05/09/17] anemia of chronic disease --ongoijng DRESS/renal disease New afib -will be on systemic ac. due to her BMI/Cr, couamdin bridge with UFH , is the choice allergic reaction --DRESS--rash improving ATN: -stable , 1.3 -urine +eosinophil
--- NOTE | 2017-07-21 18:49 | PN ---
Progress Note (short form) - Note Progress Note: Vascular Surgery Pt seen and examined. Bl heel pain. Righ heel with no open wound. Left heel very tender to touch. No openings. Place both heels in heel pads. Pt with good pulse in left foot. medical manangement. Yvon Baker DO
[2017-07-22] MEDS: hydrOXYzine HCL 10 MG TABLET PO SCH ×4 (00:34→17:32)
[2017-07-22] MEDS ORDERED: POLYETHYLENE GLYCOL 3350 119 GM BTL PO ONE ×2 (02:00)
[2017-07-22] MEDS: oxyCODONE HCL 5 MG TABLET PO PRN ×3 (05:02→19:40)
[2017-07-22] MEDS: LEVOTHYROXINE NA 25 MCG TABLET (FP) PO SCH (06:17)
[2017-07-22] MEDS: INSULIN SLIDING SCALE (NOVOLOG) 1 VIAL SQ SCH ×4 (06:17→22:05)
[2017-07-22] MEDS: POLYMYXIN B SULFATE/TMP 10 ML OPHTHALMIC SOLUTION OU SCH ×5 (06:17→22:05)
[2017-07-22] MEDS: TASIGNA 150 MG PO SCH ×2 (06:18→20:57)
[2017-07-22 08:07] LABS: BASOPHIL 0.4 % (0-2.0); EOSINOPHIL 8.1 % (0-4.5); MCH 28.8 pg (25.7-33.7); MCHC 32.8 g/dl (32.0-36.0); MEAN CELL VOLUME 87.8 fl (80-96); MEAN PLT VOLUME 7.5 fl (7.5-11.1); NEUTROPHILS 66.7 % (42.8-82.8); PLATELET COUNT 200 K/MM3 (134-434); WHITE BLOOD COUNT 6.9 K/mm3 (4.0-10.0)
[2017-07-22 08:25] LABS: ANION GAP 7 (8-16); CALCIUM 7.2 mg/dL (8.5-10.1); CO2 23 mmol/L (21-32); CREATININE 1.1 mg/dL (0.55-1.02); GLUCOSE,RANDOM 144 mg/dL (74-106); MAGNESIUM 1.5 mg/dL (1.8-2.4)
[2017-07-22] MEDS: diphenhydrAMINE HCL 25 MG CAPSULE (FP) PO PRN (08:30)
[2017-07-22 08:48] LABS: INR 1.81 (0.82-1.09); PROTHROMBIN TIME (PATIENT) 20.5 SEC (9.98-11.88)
[2017-07-22] MEDS ORDERED: INSULIN (NOVOLOG) ASPART 100 UNITS/ML 10ML VIAL ONE (10:34)
[2017-07-22] MEDS: PANTOPRAZOLE 40 MG TABLET (FP) PO SCH (10:45)
[2017-07-22] MEDS: TORSEMIDE 20 MG TABLET (FP) PO SCH (10:45)
[2017-07-22] MEDS: morphine SO4 SUSTAINED ACTING 15 MG TABLET.SA PO SCH ×2 (10:45→22:04)
[2017-07-22] MEDS: MAGNESIUM OXIDE 400 MG TABLET (FP) PO SCH ×2 (10:45→22:04)
[2017-07-22] MEDS: ARFORMOTEROL TARTRATE 15 MCG/2 ML VIAL NEB SCH ×2 (10:45→22:15)
[2017-07-22] MEDS: FERROUS SO4 325 MG TABLET (FP) PO SCH (10:45)
[2017-07-22] MEDS: NYSTATIN POWDER 100,000 UNITS/GM - 15 GM TOPICAL POWDER TP SCH ×2 (10:47→22:04)
[2017-07-22] MEDS: FLUOCINONIDE 0.05% TOP OINT (60 GM TUBE) TP SCH ×2 (11:09→22:33)
[2017-07-22] MEDS: AMMONIUM LACTATE 12% LOTION 225 GM BOTTLE TP SCH (11:58)
--- NOTE | 2017-07-22 12:03 | PN ---
Progress Note (short form) - Note Progress Note: Seen in follow up. Complaining of constipation. Reporting unrelieved burning in mouth - unable to eat. No further chills / no fevers. Meds reviewed. Current Medications Generic Name Dose Route Start Last Admin Trade Name Freq PRN Reason Stop Dose Admin Acetaminophen 650 mg 07/18/17 03:25 07/19/17 18:58 Tylenol - PO 650 mg Q6H PRN Administration PAIN Arformoterol Tartrate 1 amp 07/18/17 10:00 07/22/17 10:45 Brovana (Restricted To Pulmonology/Resp) - NEB Not Given BID JOVITA Diphenhydramine HCl 25 mg 07/12/17 11:06 07/22/17 08:30 Benadryl - PO 25 mg Q6H PRN Administration FOR ITCHING Fluocinonide 1 applic 07/17/17 10:15 07/21/17 22:17 Lidex 0.05% Ointment - TP Not Given BID JOVITA Hydroxyzine HCl 10 mg 07/13/17 14:15 07/22/17 11:54 Atarax - PO 10 mg Q6HPO JOVITA Administration Insulin Aspart 1 vial 07/18/17 07:00 07/22/17 11:54 Novolog Vial Sliding Scale - SQ 6 unit ACHS JOVITA Administration Protocol Lactic Acid 1 applic 07/16/17 14:45 07/22/17 11:58 Lac-Hydrin 12 TP Not Given DAILY JOVITA Levothyroxine Sodium 25 mcg 07/18/17 07:00 07/22/17 06:17 Synthroid - PO 25 mcg AM JOVITA Administration Magnesium Oxide 400 mg 07/21/17 15:00 07/22/17 10:45 Mag-Ox - PO 400 mg BID JOVITA Administration Morphine Sulfate 15 mg 07/16/17 22:00 07/22/17 10:45 Ms Contin - PO 15 mg BID JOVITA Administration Patient's Own 300 mg 07/19/17 19:31 07/22/17 06:18 Medication (Non- PO Not Given Formulary) (Tasigna BID@0600,2000 JOVITA 150mg) Nystatin 1 applic 07/16/17 22:00 07/22/17 10:47 Nystop Powder - TP 1 applic BID JOVITA Administration Oxycodone HCl 10 mg 07/18/17 03:25 07/22/17 05:02 Roxicodone - PO 10 mg Q4H PRN Administration Pantoprazole Sodium 40 mg 07/12/17 10:45 07/22/17 10:45 Protonix - PO 40 mg DAILY JOVITA Administration Polymyxin/Trimethoprim Sulfate 1 drop 07/18/17 14:15 07/22/17 10:47 Polytrim Opthalmic Solution - OU 07/23/17 14:14 1 drop Q4HWA JOVITA Administration Torsemide 20 mg 07/18/17 17:00 07/22/17 10:45 Demadex - PO 20 mg DAILY JOVITA Administration Warfarin Sodium 5 mg 07/21/17 18:00 07/21/17 18:02 Coumadin - PO 5 mg DAILY@1800 JOVITA Administration On exam: Last Vital Signs Temp Pulse Resp BP Pulse Ox 98.1 F 97 H 20 115/77 95 07/22/17 06:00 07/22/17 09:27 07/22/17 09:27 07/22/17 09:27 07/22/17 09:00 General: Supine in bed, obese. Extremities: Pallor, no icterus. Chest:breathing comfortably, clear to auscultation CVS: S1, S2, no gallop or murmur. Abdomen: Soft, no organomegaly, no masses. Skin: Desquamating healing Neuro: Alert, oriented, non-focal. CBC, BMP 07/22/17 06:00 07/22/17 06:00 Assessment. 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 Normocytic anemia -attributed to chronic disease, although possibly more marked than would be expected - bone marrow biopsy warranted. Not iron deficient - oral iron stopped - contributing to her constipation. Rash - improving - apparently drug reaction (Flagyl?) - prior eosinophilia resolving. Oral mucositis with difficulty eating - possible candidiasis - start empiric treatment with Magic Mouthwash cocktail.
--- NOTE | 2017-07-22 14:23 | PN ---
Progress Note, Physician Chief Complaint: No new complainants History of Present Illness: 66 yrs old multiple Co-morbidities HTN, T2DM, DHF, CML admitted with UTI with sepsis on 07/07/17 off IV abx - Current Medication List Current Medications: Active Medications Acetaminophen (Tylenol -) 650 mg PO Q6H PRN PRN Reason: PAIN Last Admin: 07/19/17 18:58 Dose: 650 mg Arformoterol Tartrate (Brovana (Restricted To Pulmonology/Resp) -) 1 amp NEB BID [facility] Last Admin: 07/22/17 10:45 Dose: Not Given Diphenhydramine HCl (Benadryl -) 25 mg PO Q6H PRN PRN Reason: FOR ITCHING Last Admin: 07/22/17 08:30 Dose: 25 mg Fluocinonide (Lidex 0.05% Ointment -) 1 applic TP BID [facility] Last Admin: 07/21/17 22:17 Dose: Not Given Hydroxyzine HCl (Atarax -) 10 mg PO Q6HPO [facility] Last Admin: 07/22/17 11:54 Dose: 10 mg Insulin Aspart (Novolog Vial Sliding Scale -) 1 vial SQ ACHS [facility] PRN Reason: Protocol Last Admin: 07/22/17 11:54 Dose: 6 unit Lactic Acid (Lac-Hydrin 12) 1 applic TP DAILY [facility] Last Admin: 07/22/17 11:58 Dose: Not Given Levothyroxine Sodium (Synthroid -) 25 mcg PO AM [facility] Last Admin: 07/22/17 06:17 Dose: 25 mcg Lidocaine/Aluminum/Magnesium/Simeth (Magic Mouthwash *Sjr Formula* -) 5 ml MM Q6HPO [facility] Magnesium Oxide (Mag-Ox -) 400 mg PO BID [facility] Last Admin: 07/22/17 10:45 Dose: 400 mg Morphine Sulfate (Ms Contin -) 15 mg PO BID [facility] Last Admin: 07/22/17 10:45 Dose: 15 mg Patient's Own Medication (Non- Formulary) (Tasigna 150mg) 300 mg PO BID@0600, 2000 [facility] Last Admin: 07/22/17 06:18 Dose: Not Given Nystatin (Nystop Powder -) 1 applic TP BID [facility] Last Admin: 07/22/17 10:47 Dose: 1 applic Oxycodone HCl (Roxicodone -) 10 mg PO Q4H PRN Last Admin: 07/22/17 05:02 Dose: 10 mg Pantoprazole Sodium (Protonix -) 40 mg PO DAILY [facility] Last Admin: 07/22/17 10:45 Dose: 40 mg Polymyxin/Trimethoprim Sulfate (Polytrim Opthalmic Solution -) 1 drop OU Q4HWA [facility] Stop: 07/23/17 14:14 Last Admin: 07/22/17 10:47 Dose: 1 drop Torsemide (Demadex -) 20 mg PO DAILY [facility] Last Admin: 07/22/17 10:45 Dose: 20 mg Warfarin Sodium (Coumadin -) 5 mg PO DAILY@1800 [facility] Last Admin: 07/21/17 18:02 Dose: 5 mg - Objective Vital Signs: Vital Signs Temperature 98.1 F 07/22/17 06:00 Pulse Rate 97 H 07/22/17 09:27 Respiratory Rate 20 07/22/17 09:27 Blood Pressure 115/77 07/22/17 09:27 O2 Sat by Pulse Oximetry (%) 95 07/22/17 09:00 Elderly F sick looking not in distress denies any SOB HEENT: Mm moist, mild anemia, no jaundice CHEST: B/L Basal crepts CVS; S1S2 Irr no m/g/r ABD: obese non tender Bs + EXT: + edema feet, no calf tenderness, pulses feeble Left Heel tender Labs: CBC, BMP 07/22/17 06:00 07/22/17 06:00 INR, PTT INR 1.81 (0.82-1.09) H 07/22/17 06:00 Problem List - Problems (1) UTI (urinary tract infection) Assessment/Plan: Grew E Colli completed IV abx Code(s): N39.0 - URINARY TRACT INFECTION, SITE NOT SPECIFIED Qualifiers: Urinary tract infection type: acute cystitis Hematuria presence: without hematuria Qualified Code(s): N30.00 - Acute cystitis without hematuria (2) ASA (acute kidney injury) Assessment/Plan: Improved cont Po Hydration Code(s): N17.9 - ACUTE KIDNEY FAILURE, UNSPECIFIED (3) Atrial fibrillation with RVR Assessment/Plan: On AC and rate control cont coumadin F/U INR in am Code(s): I48.91 - UNSPECIFIED ATRIAL FIBRILLATION (4) Anemia Assessment/Plan: Due to Lukemia H/H stable Code(s): D64.9 - ANEMIA, UNSPECIFIED Qualifiers: Anemia type: other cause Other causes of anemia: chronic disease, other Qualified Code(s): D63.8 - Anemia in other chronic diseases classified elsewhere (5) CHF (congestive heart failure) Assessment/Plan: Compensated cont current management Code(s): I50.9 - HEART FAILURE, UNSPECIFIED Qualifiers: Congestive heart failure type: diastolic Congestive heart failure chronicity: chronic Qualified Code(s): I50.32 - Chronic diastolic (congestive ) heart failure (6) CML (chronic myelocytic leukemia) Assessment/Plan: F/O Oncology recommendations Code(s): C92.10 - CHRONIC MYELOID LEUK, BCR/ABL-POSITIVE, NOT ACHIEVE REMIS
[2017-07-22] MEDS: MAG HYDROX/ALH/SMC/DPHA/LIDO 240 ML MOUTHWASH MM SCH ×2 (15:06→18:30)
--- NOTE | 2017-07-22 16:42 | PN ---
Progress Note, Physician History of Present Illness: continues to improve - Current Medication List Current Medications: Active Medications Acetaminophen (Tylenol -) 650 mg PO Q6H PRN PRN Reason: PAIN Last Admin: 07/19/17 18:58 Dose: 650 mg Arformoterol Tartrate (Brovana (Restricted To Pulmonology/Resp) -) 1 amp NEB BID [facility] Last Admin: 07/22/17 10:45 Dose: Not Given Diphenhydramine HCl (Benadryl -) 25 mg PO Q6H PRN PRN Reason: FOR ITCHING Last Admin: 07/22/17 08:30 Dose: 25 mg Fluocinonide (Lidex 0.05% Ointment -) 1 applic TP BID [facility] Last Admin: 07/22/17 11:09 Dose: 1 applic Hydroxyzine HCl (Atarax -) 10 mg PO Q6HPO [facility] Last Admin: 07/22/17 11:54 Dose: 10 mg Insulin Aspart (Novolog Vial Sliding Scale -) 1 vial SQ ACHS [facility] PRN Reason: Protocol Last Admin: 07/22/17 11:54 Dose: 6 unit Lactic Acid (Lac-Hydrin 12) 1 applic TP DAILY [facility] Last Admin: 07/22/17 11:58 Dose: Not Given Levothyroxine Sodium (Synthroid -) 25 mcg PO AM [facility] Last Admin: 07/22/17 06:17 Dose: 25 mcg Lidocaine/Aluminum/Magnesium/Simeth (Magic Mouthwash *Sjr Formula* -) 5 ml MM Q6HPO [facility] Last Admin: 07/22/17 15:06 Dose: 5 ml Magnesium Oxide (Mag-Ox -) 400 mg PO BID [facility] Last Admin: 07/22/17 10:45 Dose: 400 mg Morphine Sulfate (Ms Contin -) 15 mg PO BID [facility] Last Admin: 07/22/17 10:45 Dose: 15 mg Patient's Own Medication (Non- Formulary) (Tasigna 150mg) 300 mg PO BID@0600, 2000 [facility] Last Admin: 07/22/17 06:18 Dose: Not Given Nystatin (Nystop Powder -) 1 applic TP BID [facility] Last Admin: 07/22/17 10:47 Dose: 1 applic Oxycodone HCl (Roxicodone -) 10 mg PO Q4H PRN Last Admin: 07/22/17 15:34 Dose: 10 mg Pantoprazole Sodium (Protonix -) 40 mg PO DAILY [facility] Last Admin: 07/22/17 10:45 Dose: 40 mg Polymyxin/Trimethoprim Sulfate (Polytrim Opthalmic Solution -) 1 drop OU Q4HWA [facility] Stop: 07/23/17 14:14 Last Admin: 07/22/17 14:09 Dose: 1 drop Torsemide (Demadex -) 20 mg PO DAILY [facility] Last Admin: 07/22/17 10:45 Dose: 20 mg Warfarin Sodium (Coumadin -) 5 mg PO DAILY@1800 [facility] Last Admin: 07/21/17 18:02 Dose: 5 mg - Objective Vital Signs: Vital Signs Temperature 98.2 F 07/22/17 14:42 Pulse Rate 88 07/22/17 14:42 Respiratory Rate 20 07/22/17 14:42 Blood Pressure 142/63 07/22/17 14:42 O2 Sat by Pulse Oximetry (%) 95 07/22/17 09:00 Constitutional: Yes: No Distress, Calm, Obese Cardiovascular: Yes: Regular Rate and Rhythm Respiratory: Yes: Regular, Poor Air Entry Gastrointestinal: Yes: Normal Bowel Sounds, Soft Extremities: Yes: Other Integumentary: Yes: Other Neurological: Yes: Alert Psychiatric: Yes: Alert Labs: CBC, BMP 07/22/17 06:00 07/22/17 06:00 INR, PTT INR 1.81 (0.82-1.09) H 07/22/17 06:00 Assessment/Plan . Assessment/Plan (1) Atrial fibrillation with RVR Code(s): I48.91 - UNSPECIFIED ATRIAL FIBRILLATION (2) Sepsis Code(s): A41.9 - SEPSIS, UNSPECIFIED ORGANISM Qualifiers: Sepsis type: Escherichia coli Qualified Code(s): A41.51 - Sepsis due to Escherichia coli [E. coli]; A41.51 - Sepsis due to Escherichia coli [E. coli]; A41.51 - Sepsis due to Escherichia coli [E. coli] (3) UTI (urinary tract infection) Code(s): N39.0 - URINARY TRACT INFECTION, SITE NOT SPECIFIED Qualifiers: Urinary tract infection type: acute cystitis Hematuria presence: without hematuria Qualified Code(s): N30.00 - Acute cystitis without hematuria; N30.00 - Acute cystitis without hematuria (4) ASA (acute kidney injury) Code(s): N17.9 - ACUTE KIDNEY FAILURE, UNSPECIFIED (5) Drug induced rash with eosinophilia and systemic symptoms Code(s): L27.0 - GEN SKIN ERUPTION DUE TO DRUGS AND MEDS TAKEN INTERNALLY D72.1 - EOSINOPHILIA T50.905A - ADVERSE EFFECT OF UNSP DRUG/MEDS/BIOL SUBST, INIT (6) Anemia Code(s): D64.9 - ANEMIA, UNSPECIFIED Qualifiers: Anemia type: other cause Other causes of anemia: acute posthemorrhagic Qualified Code(s): D62 - Acute posthemorrhagic anemia; D62 - Acute posthemorrhagic anemia (7) CHF (congestive heart failure) Code(s): I50.9 - HEART FAILURE, UNSPECIFIED Qualifiers: Congestive heart failure type: diastolic Congestive heart failure chronicity: chronic Qualified Code(s): I50.32 - Chronic diastolic ( congestive) heart failure; I50.32 - Chronic diastolic (congestive) heart failure ; I50.32 - Chronic diastolic (congestive) heart failure; I50.32 - Chronic diastolic (congestive) heart failure (8) CML (chronic myelocytic leukemia) Code(s): C92.10 - CHRONIC MYELOID LEUK, BCR/ABL-POSITIVE, NOT ACHIEVE REMIS (9) COPD (chronic obstructive pulmonary disease) Code(s): J44.9 - CHRONIC OBSTRUCTIVE PULMONARY DISEASE, UNSPECIFIED (10) Diabetes Code(s): E11.9 - TYPE 2 DIABETES MELLITUS WITHOUT COMPLICATIONS (11) Hypothyroid Code(s): E03.9 - HYPOTHYROIDISM, UNSPECIFIED plan stable off of abx continue current mgmt skin care close monitoring conintue cream for local application patient still itching monitor for infections
[2017-07-22] MEDS: WARFARIN NA 5 MG TABLET (UD) PO SCH (17:31)
--- NOTE | 2017-07-22 18:01 | PN ---
Progress Note (short form) - Note Progress Note: covering for dr bob chart reviewed and pt examined Problems 1. ASA 2. anemia 3. rash 4. CML 5. hypothyroidism 6. HTN 7. chol 8. CHF 9. COPD 10. hyperkalemia 11. sepsis 12. new onset a-fib 13. peripheral eosinophilia Active Medications Acetaminophen (Tylenol -) 650 mg PO Q6H PRN PRN Reason: PAIN Last Admin: 07/19/17 18:58 Dose: 650 mg Arformoterol Tartrate (Brovana (Restricted To Pulmonology/Resp) -) 1 amp NEB BID [facility] Last Admin: 07/22/17 10:45 Dose: Not Given Diphenhydramine HCl (Benadryl -) 25 mg PO Q6H PRN PRN Reason: FOR ITCHING Last Admin: 07/22/17 08:30 Dose: 25 mg Fluocinonide (Lidex 0.05% Ointment -) 1 applic TP BID [facility] Last Admin: 07/22/17 11:09 Dose: 1 applic Hydroxyzine HCl (Atarax -) 10 mg PO Q6HPO [facility] Last Admin: 07/22/17 17:32 Dose: 10 mg Insulin Aspart (Novolog Vial Sliding Scale -) 1 vial SQ ACHS [facility] PRN Reason: Protocol Last Admin: 07/22/17 17:31 Dose: 2 unit Lactic Acid (Lac-Hydrin 12) 1 applic TP DAILY [facility] Last Admin: 07/22/17 11:58 Dose: Not Given Levothyroxine Sodium (Synthroid -) 25 mcg PO AM [facility] Last Admin: 07/22/17 06:17 Dose: 25 mcg Lidocaine/Aluminum/Magnesium/Simeth (Magic Mouthwash *Sjr Formula* -) 5 ml MM Q6HPO [facility] Last Admin: 07/22/17 15:06 Dose: 5 ml Magnesium Oxide (Mag-Ox -) 400 mg PO BID [facility] Last Admin: 07/22/17 10:45 Dose: 400 mg Morphine Sulfate (Ms Contin -) 15 mg PO BID [facility] Last Admin: 07/22/17 10:45 Dose: 15 mg Patient's Own Medication (Non- Formulary) (Tasigna 150mg) 300 mg PO BID@0600, 2000 [facility] Last Admin: 07/22/17 06:18 Dose: Not Given Nystatin (Nystop Powder -) 1 applic TP BID [facility] Last Admin: 07/22/17 10:47 Dose: 1 applic Oxycodone HCl (Roxicodone -) 10 mg PO Q4H PRN Last Admin: 07/22/17 15:34 Dose: 10 mg Pantoprazole Sodium (Protonix -) 40 mg PO DAILY [facility] Last Admin: 07/22/17 10:45 Dose: 40 mg Polymyxin/Trimethoprim Sulfate (Polytrim Opthalmic Solution -) 1 drop OU Q4HWA [facility] Stop: 07/23/17 14:14 Last Admin: 07/22/17 14:09 Dose: 1 drop Torsemide (Demadex -) 20 mg PO DAILY [facility] Last Admin: 07/22/17 10:45 Dose: 20 mg Warfarin Sodium (Coumadin -) 5 mg PO DAILY@1800 [facility] Last Admin: 07/22/17 17:31 Dose: 5 mg Last Vital Signs Temp Pulse Resp BP Pulse Ox 97.9 F 85 20 153/73 95 07/22/17 17:24 07/22/17 17:24 07/22/17 17:24 07/22/17 17:24 07/22/17 09:00 alert in nad lungs clear heart reg abd soft nontender ext no edema CBC, BMP 07/22/17 06:00 07/22/17 06:00 IMP HF CKD Plan - renal function is improving - cont torsemide at 20 mg - repeat labs in am - will follow - likely asa from atn - will follow closely
[2017-07-23] MEDS: MAG HYDROX/ALH/SMC/DPHA/LIDO 240 ML MOUTHWASH MM SCH ×5 (00:34→23:28)
[2017-07-23] MEDS: hydrOXYzine HCL 10 MG TABLET PO SCH ×5 (01:31→23:27)
[2017-07-23] MEDS: oxyCODONE HCL 5 MG TABLET PO PRN ×2 (05:08→23:26)
[2017-07-23] MEDS: LEVOTHYROXINE NA 25 MCG TABLET (FP) PO SCH (06:45)
[2017-07-23] MEDS: INSULIN SLIDING SCALE (NOVOLOG) 1 VIAL SQ SCH ×4 (06:45→21:11)
[2017-07-23] MEDS: POLYMYXIN B SULFATE/TMP 10 ML OPHTHALMIC SOLUTION OU SCH ×3 (06:57→14:38)
[2017-07-23] MEDS: TASIGNA 150 MG PO SCH ×2 (06:58→20:45)
[2017-07-23 08:20] LABS: ANION GAP 9 (8-16); CALCIUM 7.8 mg/dL (8.5-10.1); CO2 22 mmol/L (21-32); GLUCOSE,RANDOM 117 mg/dL (74-106)
[2017-07-23 08:24] LABS: BASOPHIL 0.6 % (0-2.0); EOSINOPHIL 7.7 % (0-4.5); MCH 28.8 pg (25.7-33.7); MCHC 32.7 g/dl (32.0-36.0); MEAN PLT VOLUME 7.6 fl (7.5-11.1); NEUTROPHILS 68.7 % (42.8-82.8); PLATELET COUNT 187 K/MM3 (134-434); RDW 19.8 % (11.6-15.6)
[2017-07-23] MEDS: ARFORMOTEROL TARTRATE 15 MCG/2 ML VIAL NEB SCH ×2 (10:21→22:01)
[2017-07-23] MEDS: PANTOPRAZOLE 40 MG TABLET (FP) PO SCH (10:45)
[2017-07-23] MEDS: TORSEMIDE 20 MG TABLET (FP) PO SCH (10:45)
[2017-07-23] MEDS: AMMONIUM LACTATE 12% LOTION 225 GM BOTTLE TP SCH (10:45)
[2017-07-23] MEDS: MAGNESIUM OXIDE 400 MG TABLET (FP) PO SCH ×2 (10:45→21:10)
[2017-07-23] MEDS: morphine SO4 SUSTAINED ACTING 15 MG TABLET.SA PO SCH ×2 (10:45→21:10)
[2017-07-23] MEDS: NYSTATIN POWDER 100,000 UNITS/GM - 15 GM TOPICAL POWDER TP SCH ×2 (10:49→21:11)
[2017-07-23] MEDS: FLUOCINONIDE 0.05% TOP OINT (60 GM TUBE) TP SCH ×2 (10:50→21:12)
--- NOTE | 2017-07-23 13:58 | PN ---
Progress Note, Physician Chief Complaint: No new complainants History of Present Illness: 66 yrs old multiple Co-morbidities HTN, T2DM, DHF, CML admitted with UTI with sepsis on 07/07/17 completed IV IV abx - Current Medication List Current Medications: Active Medications Acetaminophen (Tylenol -) 650 mg PO Q6H PRN PRN Reason: PAIN Last Admin: 07/19/17 18:58 Dose: 650 mg Arformoterol Tartrate (Brovana (Restricted To Pulmonology/Resp) -) 1 amp NEB BID [facility] Last Admin: 07/23/17 10:21 Dose: 1 amp Diphenhydramine HCl (Benadryl -) 25 mg PO Q6H PRN PRN Reason: FOR ITCHING Last Admin: 07/22/17 08:30 Dose: 25 mg Fluocinonide (Lidex 0.05% Ointment -) 1 applic TP BID [facility] Last Admin: 07/23/17 10:50 Dose: 1 applic Hydroxyzine HCl (Atarax -) 10 mg PO Q6HPO [facility] Last Admin: 07/23/17 11:39 Dose: 10 mg Insulin Aspart (Novolog Vial Sliding Scale -) 1 vial SQ ACHS [facility] PRN Reason: Protocol Last Admin: 07/23/17 11:31 Dose: Not Given Lactic Acid (Lac-Hydrin 12) 1 applic TP DAILY [facility] Last Admin: 07/23/17 10:45 Dose: Not Given Levothyroxine Sodium (Synthroid -) 25 mcg PO AM [facility] Last Admin: 07/23/17 06:45 Dose: 25 mcg Lidocaine/Aluminum/Magnesium/Simeth (Magic Mouthwash *Sjr Formula* -) 5 ml MM Q6HPO [facility] Last Admin: 07/23/17 11:39 Dose: 5 ml Magnesium Oxide (Mag-Ox -) 400 mg PO BID [facility] Last Admin: 07/23/17 10:45 Dose: 400 mg Morphine Sulfate (Ms Contin -) 15 mg PO BID [facility] Last Admin: 07/23/17 10:45 Dose: 15 mg Patient's Own Medication (Non- Formulary) (Tasigna 150mg) 300 mg PO BID@0600, 2000 [facility] Last Admin: 07/23/17 06:58 Dose: Not Given Nystatin (Nystop Powder -) 1 applic TP BID [facility] Last Admin: 07/23/17 10:49 Dose: 1 applic Oxycodone HCl (Roxicodone -) 10 mg PO Q4H PRN Last Admin: 07/23/17 05:08 Dose: 10 mg Pantoprazole Sodium (Protonix -) 40 mg PO DAILY [facility] Last Admin: 07/23/17 10:45 Dose: 40 mg Polymyxin/Trimethoprim Sulfate (Polytrim Opthalmic Solution -) 1 drop OU Q4HWA [facility] Stop: 07/23/17 14:14 Last Admin: 07/23/17 10:50 Dose: 1 drop Torsemide (Demadex -) 20 mg PO DAILY [facility] Last Admin: 07/23/17 10:45 Dose: 20 mg Warfarin Sodium (Coumadin -) 5 mg PO DAILY@1800 [facility] Last Admin: 07/22/17 17:31 Dose: 5 mg - Objective Vital Signs: Vital Signs Temperature 98.1 F 07/23/17 10:32 Pulse Rate 84 07/23/17 10:32 Respiratory Rate 20 07/23/17 10:32 Blood Pressure 121/63 07/23/17 10:32 O2 Sat by Pulse Oximetry (%) 94 L 07/23/17 10:20 Elderly F sick looking not in distress denies any SOB HEENT: Mm moist, mild anemia, no jaundice CHEST: B/L Basal crepts CVS; S1S2 Irr no m/g/r ABD: obese non tender Bs + EXT: + edema feet, no calf tenderness, pulses feeble Left Heel tender [employer] APPRAISER: AOX3 non focal Labs: CBC, BMP 07/23/17 06:00 07/23/17 06:00 INR, PTT INR 1.81 (0.82-1.09) H 07/22/17 06:00 Problem List - Problems (1) UTI (urinary tract infection) Code(s): N39.0 - URINARY TRACT INFECTION, SITE NOT SPECIFIED Qualifiers: Urinary tract infection type: acute cystitis Hematuria presence: without hematuria Qualified Code(s): N30.00 - Acute cystitis without hematuria (2) ASA (acute kidney injury) Code(s): N17.9 - ACUTE KIDNEY FAILURE, UNSPECIFIED (3) Atrial fibrillation with RVR Code(s): I48.91 - UNSPECIFIED ATRIAL FIBRILLATION (4) Anemia Code(s): D64.9 - ANEMIA, UNSPECIFIED Qualifiers: Anemia type: other cause Other causes of anemia: chronic disease, other Qualified Code(s): D63.8 - Anemia in other chronic diseases classified elsewhere (5) CHF (congestive heart failure) Code(s): I50.9 - HEART FAILURE, UNSPECIFIED Qualifiers: Congestive heart failure type: diastolic Congestive heart failure chronicity: chronic Qualified Code(s): I50.32 - Chronic diastolic (congestive ) heart failure (6) CML (chronic myelocytic leukemia) Code(s): C92.10 - CHRONIC MYELOID LEUK, BCR/ABL-POSITIVE, NOT ACHIEVE REMIS
[2017-07-23] MEDS ORDERED: PT OWN MED DRAWER 7, Y5N ONE ×2 (17:15→23:23)
[2017-07-23 17:49] LABS: INR 2.06 (0.82-1.09); PROTHROMBIN TIME (PATIENT) 23.3 SEC (9.98-11.88)
[2017-07-23] MEDS: WARFARIN NA 5 MG TABLET (UD) PO SCH (18:16)
--- NOTE | 2017-07-23 19:39 | PN ---
Progress Note (short form) - Note Progress Note: covering for dr bob chart reviewed and pt examined Problems 1. ASA 2. anemia 3. rash 4. CML 5. hypothyroidism 6. HTN 7. chol 8. CHF 9. COPD 10. hyperkalemia 11. sepsis 12. new onset a-fib 13. peripheral eosinophilia Current Medications Acetaminophen (Tylenol -) 650 mg PO Q6H PRN PRN Reason: PAIN Last Admin: 07/19/17 18:58 Dose: 650 mg Arformoterol Tartrate (Brovana (Restricted To Pulmonology/Resp) -) 1 amp NEB BID [facility] Last Admin: 07/23/17 10:21 Dose: 1 amp Diphenhydramine HCl (Benadryl -) 25 mg PO Q6H PRN PRN Reason: FOR ITCHING Last Admin: 07/22/17 08:30 Dose: 25 mg Fluocinonide (Lidex 0.05% Ointment -) 1 applic TP BID [facility] Last Admin: 07/23/17 10:50 Dose: 1 applic Hydroxyzine HCl (Atarax -) 10 mg PO Q6HPO [facility] Last Admin: 07/23/17 17:17 Dose: 10 mg Insulin Aspart (Novolog Vial Sliding Scale -) 1 vial SQ ACHS [facility] PRN Reason: Protocol Last Admin: 07/23/17 17:17 Dose: 4 unit Lactic Acid (Lac-Hydrin 12) 1 applic TP DAILY [facility] Last Admin: 07/23/17 10:45 Dose: Not Given Levothyroxine Sodium (Synthroid -) 25 mcg PO AM [facility] Last Admin: 07/23/17 06:45 Dose: 25 mcg Lidocaine/Aluminum/Magnesium/Simeth (Magic Mouthwash *Sjr Formula* -) 5 ml MM Q6HPO [facility] Last Admin: 07/23/17 17:16 Dose: 5 ml Magnesium Oxide (Mag-Ox -) 400 mg PO BID [facility] Last Admin: 07/23/17 10:45 Dose: 400 mg Morphine Sulfate (Ms Contin -) 15 mg PO BID [facility] Last Admin: 07/23/17 10:45 Dose: 15 mg Patient's Own Medication (Non- Formulary) (Tasigna 150mg) 300 mg PO BID@0600, 2000 [facility] Last Admin: 07/23/17 06:58 Dose: Not Given Nystatin (Nystop Powder -) 1 applic TP BID [facility] Last Admin: 07/23/17 10:49 Dose: 1 applic Oxycodone HCl (Roxicodone -) 10 mg PO Q4H PRN Last Admin: 07/23/17 05:08 Dose: 10 mg Pantoprazole Sodium (Protonix -) 40 mg PO DAILY [facility] Last Admin: 07/23/17 10:45 Dose: 40 mg Torsemide (Demadex -) 20 mg PO DAILY [facility] Last Admin: 07/23/17 10:45 Dose: 20 mg Warfarin Sodium (Coumadin -) 5 mg PO DAILY@1800 [facility] Last Admin: 07/23/17 18:16 Dose: 5 mg Last Vital Signs Temp Pulse Resp BP Pulse Ox 98.3 F 94 H 20 135/73 94 L 07/23/17 17:37 07/23/17 17:37 07/23/17 17:37 07/23/17 17:37 07/23/17 10:20 alert in nad lungs clear heart reg abd soft nontender ext no edema CBC, BMP 07/23/17 06:00 07/23/17 06:00 IMP HF CKD Plan - renal function is improving - cont torsemide at 20 mg - repeat labs in am - will follow - likely asa from atn - will follow closely
[2017-07-23] MEDS: POLYETHYLENE GLYCOL 3350 119 GM BTL PO PRN (20:45)
[2017-07-24] MEDS: oxyCODONE HCL 5 MG TABLET PO PRN ×3 (03:44→22:56)
[2017-07-24] MEDS: TASIGNA 150 MG PO SCH ×2 (06:25→20:10)
[2017-07-24] MEDS: MAG HYDROX/ALH/SMC/DPHA/LIDO 240 ML MOUTHWASH MM SCH ×4 (06:28→23:16)
[2017-07-24] MEDS: LEVOTHYROXINE NA 25 MCG TABLET (FP) PO SCH (06:29)
[2017-07-24] MEDS: hydrOXYzine HCL 10 MG TABLET PO SCH ×4 (06:29→23:15)
[2017-07-24] MEDS: INSULIN SLIDING SCALE (NOVOLOG) 1 VIAL SQ SCH ×4 (06:29→21:30)
--- NOTE | 2017-07-24 09:45 | PN ---
Progress Note, Physician Chief Complaint: sepsis History of Present Illness: denies sob, orthopnea, cp, palp + leg swelling--thinks it's stable at baseline - Current Medication List Current Medications: Active Medications Acetaminophen (Tylenol -) 650 mg PO Q6H PRN PRN Reason: PAIN Last Admin: 07/19/17 18:58 Dose: 650 mg Arformoterol Tartrate (Brovana (Restricted To Pulmonology/Resp) -) 1 amp NEB BID [facility] Last Admin: 07/23/17 22:01 Dose: Not Given Diphenhydramine HCl (Benadryl -) 25 mg PO Q6H PRN PRN Reason: FOR ITCHING Last Admin: 07/22/17 08:30 Dose: 25 mg Fluocinonide (Lidex 0.05% Ointment -) 1 applic TP BID [facility] Last Admin: 07/23/17 21:12 Dose: 1 applic Hydroxyzine HCl (Atarax -) 10 mg PO Q6HPO [facility] Last Admin: 07/24/17 06:29 Dose: 10 mg Insulin Aspart (Novolog Vial Sliding Scale -) 1 vial SQ ACHS [facility] PRN Reason: Protocol Last Admin: 07/24/17 06:29 Dose: Not Given Lactic Acid (Lac-Hydrin 12) 1 applic TP DAILY [facility] Last Admin: 07/23/17 10:45 Dose: Not Given Levothyroxine Sodium (Synthroid -) 25 mcg PO AM [facility] Last Admin: 07/24/17 06:29 Dose: 25 mcg Lidocaine/Aluminum/Magnesium/Simeth (Magic Mouthwash *Sjr Formula* -) 5 ml MM Q6HPO [facility] Last Admin: 07/24/17 06:28 Dose: Not Given Magnesium Oxide (Mag-Ox -) 400 mg PO BID [facility] Last Admin: 07/23/17 21:10 Dose: 400 mg Morphine Sulfate (Ms Contin -) 15 mg PO BID [facility] Last Admin: 07/23/17 21:10 Dose: 15 mg Patient's Own Medication (Non- Formulary) (Tasigna 150mg) 300 mg PO BID@0600, 2000 [facility] Last Admin: 07/24/17 06:25 Dose: Not Given Nystatin (Nystop Powder -) 1 applic TP BID [facility] Last Admin: 07/23/17 21:11 Dose: 1 applic Oxycodone HCl (Roxicodone -) 10 mg PO Q4H PRN Last Admin: 07/24/17 03:44 Dose: 10 mg Pantoprazole Sodium (Protonix -) 40 mg PO DAILY [facility] Last Admin: 07/23/17 10:45 Dose: 40 mg Polyethylene Glycol (Miralax (For Daily Use) -) 17 gm PO DAILY PRN Last Admin: 07/23/17 20:45 Dose: 17 gm Torsemide (Demadex -) 20 mg PO DAILY [facility] Last Admin: 07/23/17 10:45 Dose: 20 mg Warfarin Sodium (Coumadin -) 5 mg PO DAILY@1800 [facility] Last Admin: 07/23/17 18:16 Dose: 5 mg - Objective Vital Signs: Vital Signs Temperature 98.1 F 07/24/17 06:00 Pulse Rate 77 07/24/17 06:00 Respiratory Rate 18 07/24/17 06:00 Blood Pressure 122/86 07/24/17 06:00 O2 Sat by Pulse Oximetry (%) 92 L 07/23/17 20:26 Constitutional: Yes: No Distress, Calm, Obese Cardiovascular: Yes: Regular Rate and Rhythm, JVD, S1, S2. No: Gallop, Murmur Respiratory: Yes: Regular, CTA Bilaterally. No: Accessory Muscle Use, Wheezes Extremities: No: Cold Edema: Yes (pitting/nonpitting) Neurological: Yes: Alert, Oriented Psychiatric: No: Agitated Labs: CBC, BMP 07/23/17 06:00 07/23/17 06:00 INR, PTT INR 2.06 (0.82-1.09) H 07/23/17 17:10 Assessment/Plan echo 04/2017: tds. nl lv/rv. 1+ lae. mod mac mild-mod tr rvsp 45. A/P 66 yo f with hx htn, dm, hld, hypothyroid, obesity, possible copd, CML/anemia, p /w chills found to have uti/sepsis/asa. hospital course complicated by new afib with rvr. new afib - hgb is stable vs prior baseline. was 6's on admit, currently around 8. - this would provide little reserve if she develops bleeding on AC agent; - CHADS VASC = 3, with risk of stroke (approx 3%/year) higher than likelihood of bleeding in general. - d/w'd pt's outpt heme at [facility], [place]--she is linked in closely there with regular f/u, will be followed and may end up needing BM biopsy and/or small bowel study for iron def anemia workup. heme rec's trial of AC with close monitoring of counts for now. - started on coumadin here, counts thus far stable at her recent outpt baseline - currently rate controlled/SR off av kia blockade - recent echo wnl ASA: - ? etiology - renal following, JANE held -cr improved now diastolic chf: - stable vol status - currently she is back on maintenance po torsemide 20 qd - having no sx's, though JVD is markedly elevated (near jaw) - lytes/renal fxn stable - incr torsemide to 60mg qd to give her more of a buffer zone to avoid decompensated chf/sx's--monitor lytes and renal fxn trend venous ins/lymphedema: -chronic swelling --> as above anemia: -baseline dropped several months ago, + iron deficiency per outpt heme -recent FOC and EGD here unrevealing -has outpt heme f/u--considering BM biopsy and/or small bowel workup in future, sooner if drops counts with AC htn: -holding JANE (for ASA) -bp controlled hld: - Given diabetes, consider statin therapy--defer to outpt setting in light of mult acute med issues
[2017-07-24] MEDS: morphine SO4 SUSTAINED ACTING 15 MG TABLET.SA PO SCH ×2 (10:01→21:30)
[2017-07-24] MEDS: PANTOPRAZOLE 40 MG TABLET (FP) PO SCH (10:02)
[2017-07-24] MEDS: MAGNESIUM OXIDE 400 MG TABLET (FP) PO SCH ×2 (10:02→21:30)
[2017-07-24] MEDS: TORSEMIDE 20 MG TABLET (FP) PO SCH (10:02)
[2017-07-24] MEDS: AMMONIUM LACTATE 12% LOTION 225 GM BOTTLE TP SCH (10:02)
[2017-07-24] MEDS: NYSTATIN POWDER 100,000 UNITS/GM - 15 GM TOPICAL POWDER TP SCH ×2 (10:03→21:31)
[2017-07-24] MEDS: FLUOCINONIDE 0.05% TOP OINT (60 GM TUBE) TP SCH ×2 (10:04→21:29)
[2017-07-24 10:21] LABS: BASOPHIL 0.6 % (0-2.0); EOSINOPHIL 7.7 % (0-4.5); MCH 28.8 pg (25.7-33.7); MCHC 32.6 g/dl (32.0-36.0); MEAN CELL VOLUME 88.4 fl (80-96); MEAN PLT VOLUME 7.7 fl (7.5-11.1); NEUTROPHILS 66.2 % (42.8-82.8); PLATELET COUNT 172 K/MM3 (134-434); RDW 20.1 % (11.6-15.6); WHITE BLOOD COUNT 5.7 K/mm3 (4.0-10.0)
[2017-07-24] MEDS ORDERED: TORSEMIDE 20 MG TABLET (FP) PO SCH (10:30)
[2017-07-24 10:32] LABS: INR 2.26 (0.82-1.09); PROTHROMBIN TIME (PATIENT) 25.5 SEC (9.98-11.88)
[2017-07-24] MEDS: ARFORMOTEROL TARTRATE 15 MCG/2 ML VIAL NEB SCH ×2 (10:36→22:11)
[2017-07-24 10:48] LABS: ANION GAP 3 (8-16); CALCIUM 7.5 mg/dL (8.5-10.1); CO2 28 mmol/L (21-32); CREATININE 1.1 mg/dL (0.55-1.02); GLUCOSE,RANDOM 112 mg/dL (74-106)
[2017-07-24] MEDS ORDERED: INSULIN (NOVOLOG) ASPART 100 UNITS/ML 10ML VIAL ONE ×3 (12:09→19:52)
--- NOTE | 2017-07-24 12:44 | PN ---
Progress Note, Physician History of Present Illness: Pt seen and examined at bedside. She is awake and alert. She denies shortness of breath. - Current Medication List Current Medications: Active Medications Acetaminophen (Tylenol -) 650 mg PO Q6H PRN PRN Reason: PAIN Last Admin: 07/19/17 18:58 Dose: 650 mg Arformoterol Tartrate (Brovana (Restricted To Pulmonology/Resp) -) 1 amp NEB BID [facility] Last Admin: 07/24/17 10:36 Dose: 1 amp Diphenhydramine HCl (Benadryl -) 25 mg PO Q6H PRN PRN Reason: FOR ITCHING Last Admin: 07/22/17 08:30 Dose: 25 mg Fluocinonide (Lidex 0.05% Ointment -) 1 applic TP BID [facility] Last Admin: 07/24/17 10:04 Dose: 1 applic Hydroxyzine HCl (Atarax -) 10 mg PO Q6HPO [facility] Last Admin: 07/24/17 11:23 Dose: 10 mg Insulin Aspart (Novolog Vial Sliding Scale -) 1 vial SQ ACHS [facility] PRN Reason: Protocol Last Admin: 07/24/17 12:11 Dose: 2 unit Lactic Acid (Lac-Hydrin 12) 1 applic TP DAILY [facility] Last Admin: 07/24/17 10:02 Dose: Not Given Levothyroxine Sodium (Synthroid -) 25 mcg PO AM [facility] Last Admin: 07/24/17 06:29 Dose: 25 mcg Lidocaine/Aluminum/Magnesium/Simeth (Magic Mouthwash *Sjr Formula* -) 5 ml MM Q6HPO [facility] Last Admin: 07/24/17 11:24 Dose: 5 ml Magnesium Oxide (Mag-Ox -) 400 mg PO BID [facility] Last Admin: 07/24/17 10:02 Dose: 400 mg Morphine Sulfate (Ms Contin -) 15 mg PO BID [facility] Last Admin: 07/24/17 10:01 Dose: 15 mg Patient's Own Medication (Non- Formulary) (Tasigna 150mg) 300 mg PO BID@0600, 2000 [facility] Last Admin: 07/24/17 06:25 Dose: Not Given Nystatin (Nystop Powder -) 1 applic TP BID [facility] Last Admin: 07/24/17 10:03 Dose: 1 applic Oxycodone HCl (Roxicodone -) 10 mg PO Q4H PRN Last Admin: 07/24/17 03:44 Dose: 10 mg Pantoprazole Sodium (Protonix -) 40 mg PO DAILY [facility] Last Admin: 07/24/17 10:02 Dose: 40 mg Polyethylene Glycol (Miralax (For Daily Use) -) 17 gm PO DAILY PRN Last Admin: 07/23/17 20:45 Dose: 17 gm Torsemide (Demadex -) 60 mg PO DAILY [facility] Warfarin Sodium (Coumadin -) 5 mg PO DAILY@1800 [facility] Last Admin: 07/23/17 18:16 Dose: 5 mg - Objective Vital Signs: Vital Signs Temperature 98.0 F 07/24/17 09:00 Pulse Rate 75 07/24/17 09:00 Respiratory Rate 18 07/24/17 09:00 Blood Pressure 133/57 07/24/17 09:00 O2 Sat by Pulse Oximetry (%) 92 L 07/23/17 20:26 Constitutional: Yes: Calm Eyes: Yes: Conjunctiva Clear HENT: Yes: Atraumatic Neck: Yes: Supple Cardiovascular: Yes: S1, S2 Respiratory: Yes: CTA Bilaterally Gastrointestinal: Yes: Soft, Abdomen, Obese Genitourinary: Yes: Incontinence Musculoskeletal: Yes: Muscle Weakness Edema: Yes Edema: LLE: 2+, RLE: 2+ Integumentary: Yes: Rash Neurological: Yes: Oriented Psychiatric: Yes: Oriented Labs: CBC, BMP 07/24/17 09:42 07/24/17 09:42 INR, PTT INR 2.26 (0.82-1.09) H 07/24/17 09:42 Problem List - Problems (1) Diabetes Code(s): E11.9 - TYPE 2 DIABETES MELLITUS WITHOUT COMPLICATIONS (2) CML (chronic myelocytic leukemia) Code(s): C92.10 - CHRONIC MYELOID LEUK, BCR/ABL-POSITIVE, NOT ACHIEVE REMIS (3) Anemia Code(s): D64.9 - ANEMIA, UNSPECIFIED Qualifiers: Anemia type: other cause Other causes of anemia: chronic disease, other Qualified Code(s): D63.8 - Anemia in other chronic diseases classified elsewhere (4) Cellulitis of leg, left Code(s): L03.116 - CELLULITIS OF LEFT LOWER LIMB (5) CHF (congestive heart failure) Code(s): I50.9 - HEART FAILURE, UNSPECIFIED Qualifiers: Congestive heart failure type: diastolic Congestive heart failure chronicity: chronic Qualified Code(s): I50.32 - Chronic diastolic (congestive ) heart failure (6) Acute renal insufficiency Code(s): N28.9 - DISORDER OF KIDNEY AND URETER, UNSPECIFIED (7) Hyperkalemia Code(s): E87.5 - HYPERKALEMIA (8) MARIA ELENA positive Code(s): R76.8 - OTHER SPECIFIED ABNORMAL IMMUNOLOGICAL FINDINGS IN SERUM (9) TURNER (acute kidney injury) Code(s): N17.9 - ACUTE KIDNEY FAILURE, UNSPECIFIED Assessment/Plan Current Medications Generic Name Dose Route Start Last Admin Trade Name Freq PRN Reason Stop Dose Admin Acetaminophen 650 mg 07/18/17 03:25 07/19/17 18:58 Tylenol - PO 650 mg Q6H PRN Administration PAIN Arformoterol Tartrate 1 amp 07/18/17 10:00 07/24/17 10:36 Brovana (Restricted To Pulmonology/Resp) - NEB 1 amp BID [facility] Administration Diphenhydramine HCl 25 mg 07/12/17 11:06 07/22/17 08:30 Benadryl - PO 25 mg Q6H PRN Administration FOR ITCHING Fluocinonide 1 applic 07/17/17 10:15 07/24/17 10:04 Lidex 0.05% Ointment - TP 1 applic BID [facility] Administration Hydroxyzine HCl 10 mg 07/13/17 14:15 07/24/17 11:23 Atarax - PO 10 mg Q6HPO [facility] Administration Insulin Aspart 1 vial 07/18/17 07:00 07/24/17 12:11 Novolog Vial Sliding Scale - SQ 2 unit ACHS [facility] Administration Protocol Lactic Acid 1 applic 07/16/17 14:45 07/24/17 10:02 Lac-Hydrin 12 TP Not Given DAILY [facility] Levothyroxine Sodium 25 mcg 07/18/17 07:00 07/24/17 06:29 Synthroid - PO 25 mcg AM [facility] Administration Lidocaine/Aluminum/Magnesium/Simeth 5 ml 07/22/17 13:00 07/24/17 11:24 Magic Mouthwash *Sjr Formula* - MM 5 ml Q6HPO [facility] Administration Magnesium Oxide 400 mg 07/21/17 15:00 07/24/17 10:02 Mag-Ox - PO 400 mg BID [facility] Administration Morphine Sulfate 15 mg 07/16/17 22:00 07/24/17 10:01 Ms Contin - PO 15 mg BID [facility] Administration Patient's Own 300 mg 07/19/17 19:31 07/24/17 06:25 Medication (Non- PO Not Given Formulary) (Tasigna BID@0600,2000 [facility] 150mg) Nystatin 1 applic 07/16/17 22:00 07/24/17 10:03 Nystop Powder - TP 1 applic BID [facility] Administration Oxycodone HCl 10 mg 07/18/17 03:25 07/24/17 03:44 Roxicodone - PO 10 mg Q4H PRN Administration Pantoprazole Sodium 40 mg 07/12/17 10:45 07/24/17 10:02 Protonix - PO 40 mg DAILY [facility] Administration Polyethylene Glycol 17 gm 07/23/17 20:40 07/23/17 20:45 Miralax (For Daily Use) - PO 17 gm DAILY PRN Administration Torsemide 60 mg 07/24/17 10:30 Demadex - PO DAILY [facility] Warfarin Sodium 5 mg 07/21/17 18:00 07/23/17 18:16 Coumadin - PO 5 mg DAILY@1800 [facility] Administration Impression 1. TURNER 2. anemia 3. rash 4. CML 5. hypothyroidism 6. HTN 7. chol 8. CHF 9. COPD 10. hyperkalemia 11. sepsis 12. new onset a-fib 13. peripheral eosinophilia Plan - cont to monitor renal function - pt recieved 20 mg of torsemide today - check labs in am before administering next dose - will discuss with cardio - repeat labs in am - daily weights - will follow - likely turner from atn - will follow closely Dr Sanchez
--- NOTE | 2017-07-24 13:01 | PN ---
Progress Note, Physician Chief Complaint: Ms Hernandez says she is feeling much better today. Says her eyes are now feeling normal. No cp, sob, n/v. Itching has resolved. - Current Medication List Current Medications: Active Medications Acetaminophen (Tylenol -) 650 mg PO Q6H PRN PRN Reason: PAIN Last Admin: 07/19/17 18:58 Dose: 650 mg Arformoterol Tartrate (Brovana (Restricted To Pulmonology/Resp) -) 1 amp NEB BID [facility] Last Admin: 07/24/17 10:36 Dose: 1 amp Diphenhydramine HCl (Benadryl -) 25 mg PO Q6H PRN PRN Reason: FOR ITCHING Last Admin: 07/22/17 08:30 Dose: 25 mg Fluocinonide (Lidex 0.05% Ointment -) 1 applic TP BID [facility] Last Admin: 07/24/17 10:04 Dose: 1 applic Hydroxyzine HCl (Atarax -) 10 mg PO Q6HPO [facility] Last Admin: 07/24/17 11:23 Dose: 10 mg Insulin Aspart (Novolog Vial Sliding Scale -) 1 vial SQ ACHS [facility] PRN Reason: Protocol Last Admin: 07/24/17 12:11 Dose: 2 unit Lactic Acid (Lac-Hydrin 12) 1 applic TP DAILY [facility] Last Admin: 07/24/17 10:02 Dose: Not Given Levothyroxine Sodium (Synthroid -) 25 mcg PO AM [facility] Last Admin: 07/24/17 06:29 Dose: 25 mcg Lidocaine/Aluminum/Magnesium/Simeth (Magic Mouthwash *Sjr Formula* -) 5 ml MM Q6HPO [facility] Last Admin: 07/24/17 11:24 Dose: 5 ml Magnesium Oxide (Mag-Ox -) 400 mg PO BID [facility] Last Admin: 07/24/17 10:02 Dose: 400 mg Morphine Sulfate (Ms Contin -) 15 mg PO BID [facility] Last Admin: 07/24/17 10:01 Dose: 15 mg Patient's Own Medication (Non- Formulary) (Tasigna 150mg) 300 mg PO BID@0600, 2000 [facility] Last Admin: 07/24/17 06:25 Dose: Not Given Nystatin (Nystop Powder -) 1 applic TP BID [facility] Last Admin: 07/24/17 10:03 Dose: 1 applic Oxycodone HCl (Roxicodone -) 10 mg PO Q4H PRN Last Admin: 07/24/17 03:44 Dose: 10 mg Pantoprazole Sodium (Protonix -) 40 mg PO DAILY [facility] Last Admin: 07/24/17 10:02 Dose: 40 mg Polyethylene Glycol (Miralax (For Daily Use) -) 17 gm PO DAILY PRN Last Admin: 07/23/17 20:45 Dose: 17 gm Torsemide (Demadex -) 60 mg PO DAILY [facility] Warfarin Sodium (Coumadin -) 5 mg PO DAILY@1800 [facility] Last Admin: 07/23/17 18:16 Dose: 5 mg - Objective Vital Signs: Vital Signs Temperature 36.7 C 07/24/17 09:00 Pulse Rate 75 07/24/17 09:00 Respiratory Rate 18 07/24/17 09:00 Blood Pressure 133/57 07/24/17 09:00 O2 Sat by Pulse Oximetry (%) 100 07/24/17 09:00 Constitutional: Yes: No Distress, Calm, Obese Cardiovascular: Yes: Regular Rate and Rhythm. No: Gallop, Murmur, Rub Respiratory: Yes: Regular, CTA Bilaterally. No: Rales, Rhonchi, Wheezes Gastrointestinal: Yes: Normal Bowel Sounds, Soft. No: Distention, Tenderness Extremities: Yes: Erythema Edema: Yes Edema: LLE: 2+, RLE: 2+ Labs: CBC, BMP 07/24/17 09:42 07/24/17 09:42 INR, PTT INR 2.26 (0.82-1.09) H 07/24/17 09:42 Problem List - Problems (1) Diabetes Code(s): E11.9 - TYPE 2 DIABETES MELLITUS WITHOUT COMPLICATIONS (2) CML (chronic myelocytic leukemia) Code(s): C92.10 - CHRONIC MYELOID LEUK, BCR/ABL-POSITIVE, NOT ACHIEVE REMIS (3) Anemia Code(s): D64.9 - ANEMIA, UNSPECIFIED Qualifiers: Anemia type: other cause Other causes of anemia: chronic disease, other Qualified Code(s): D63.8 - Anemia in other chronic diseases classified elsewhere (4) Hypothyroid Code(s): E03.9 - HYPOTHYROIDISM, UNSPECIFIED (5) COPD (chronic obstructive pulmonary disease) Code(s): J44.9 - CHRONIC OBSTRUCTIVE PULMONARY DISEASE, UNSPECIFIED (6) CHF (congestive heart failure) Code(s): I50.9 - HEART FAILURE, UNSPECIFIED Qualifiers: Congestive heart failure type: diastolic Congestive heart failure chronicity: chronic Qualified Code(s): I50.32 - Chronic diastolic (congestive ) heart failure (7) Sepsis Code(s): A41.9 - SEPSIS, UNSPECIFIED ORGANISM Qualifiers: Sepsis type: Escherichia coli Qualified Code(s): A41.51 - Sepsis due to Escherichia coli [E. coli] (8) Drug induced rash with eosinophilia and systemic symptoms Code(s): L27.0 - GEN SKIN ERUPTION DUE TO DRUGS AND MEDS TAKEN INTERNALLY; D72.1 - EOSINOPHILIA; T50.905A - ADVERSE EFFECT OF UNSP DRUG/MEDS/BIOL SUBST, INIT (9) ASA (acute kidney injury) Code(s): N17.9 - ACUTE KIDNEY FAILURE, UNSPECIFIED (10) Atrial fibrillation with RVR Code(s): I48.91 - UNSPECIFIED ATRIAL FIBRILLATION (11) UTI (urinary tract infection) Code(s): N39.0 - URINARY TRACT INFECTION, SITE NOT SPECIFIED Qualifiers: Urinary tract infection type: acute cystitis Hematuria presence: without hematuria Qualified Code(s): N30.00 - Acute cystitis without hematuria Assessment/Plan (1) Atrial fibrillation with RVR Assessment/Plan: -currently in sinus rhythm on exam -INR therapeutic on coumadin -continue coumadin 5mg, may need to decrease Code(s): I48.91 - UNSPECIFIED ATRIAL FIBRILLATION (2) Sepsis Assessment/Plan: -resolved Code(s): A41.9 - SEPSIS, UNSPECIFIED ORGANISM Qualifiers: Sepsis type: Escherichia coli Qualified Code(s): A41.51 - Sepsis due to Escherichia coli [E. coli]; A41.51 - Sepsis due to Escherichia coli [E. coli]; A41.51 - Sepsis due to Escherichia coli [E. coli] (3) UTI (urinary tract infection) Assessment/Plan: -s/p treatment Code(s): N39.0 - URINARY TRACT INFECTION, SITE NOT SPECIFIED Qualifiers: Urinary tract infection type: acute cystitis Hematuria presence: without hematuria Qualified Code(s): N30.00 - Acute cystitis without hematuria; N30.00 - Acute cystitis without hematuria (4) ASA (acute kidney injury) Assessment/Plan: -nephrology following -improving Code(s): N17.9 - ACUTE KIDNEY FAILURE, UNSPECIFIED (5) Drug induced rash with eosinophilia and systemic symptoms Assessment/Plan: -much improved Code(s): L27.0 - GEN SKIN ERUPTION DUE TO DRUGS AND MEDS TAKEN INTERNALLY D72.1 - EOSINOPHILIA T50.905A - ADVERSE EFFECT OF UNSP DRUG/MEDS/BIOL SUBST, INIT (6) Anemia Assessment/Plan: -continue iron -at baseline Code(s): D64.9 - ANEMIA, UNSPECIFIED Qualifiers: Anemia type: other cause Other causes of anemia: acute posthemorrhagic Qualified Code(s): D62 - Acute posthemorrhagic anemia; D62 - Acute posthemorrhagic anemia (7) CHF (congestive heart failure) Assessment/Plan: -fluid overloaded -case d/w Dr Sanchez -continue torsemide at current dose -reviewed Dr Johnson's note about increasing torsemide to 60mg, Dr Sanchez expressed concern about renal function being unable to tolerate an increase currently Code(s): I50.9 - HEART FAILURE, UNSPECIFIED Qualifiers: Congestive heart failure type: diastolic Congestive heart failure chronicity: chronic Qualified Code(s): I50.32 - Chronic diastolic ( congestive) heart failure; I50.32 - Chronic diastolic (congestive) heart failure ; I50.32 - Chronic diastolic (congestive) heart failure; I50.32 - Chronic diastolic (congestive) heart failure (8) CML (chronic myelocytic leukemia) Assessment/Plan: -continue tasigna Code(s): C92.10 - CHRONIC MYELOID LEUK, BCR/ABL-POSITIVE, NOT ACHIEVE REMIS (9) COPD (chronic obstructive pulmonary disease) Assessment/Plan: -not in exacerbation -continue current regimen Code(s): J44.9 - CHRONIC OBSTRUCTIVE PULMONARY DISEASE, UNSPECIFIED (10) Diabetes Assessment/Plan: -continue current management Code(s): E11.9 - TYPE 2 DIABETES MELLITUS WITHOUT COMPLICATIONS (11) Hypothyroid Assessment/Plan: -continue synthroid Code(s): E03.9 - HYPOTHYROIDISM, UNSPECIFIED (12) Conjunctivitis -continue polymixin/TMP eye drops day 7 -can stop after last dose today
[2017-07-24] MEDS: POLYETHYLENE GLYCOL 3350 119 GM BTL PO PRN (15:34)
--- NOTE | 2017-07-24 15:51 | PN ---
Progress Note, Physician History of Present Illness: continues to improve sister in room - Current Medication List Current Medications: Active Medications Acetaminophen (Tylenol -) 650 mg PO Q6H PRN PRN Reason: PAIN Last Admin: 07/19/17 18:58 Dose: 650 mg Arformoterol Tartrate (Brovana (Restricted To Pulmonology/Resp) -) 1 amp NEB BID [facility] Last Admin: 07/24/17 10:36 Dose: 1 amp Diphenhydramine HCl (Benadryl -) 25 mg PO Q6H PRN PRN Reason: FOR ITCHING Last Admin: 07/22/17 08:30 Dose: 25 mg Fluocinonide (Lidex 0.05% Ointment -) 1 applic TP BID [facility] Last Admin: 07/24/17 10:04 Dose: 1 applic Hydroxyzine HCl (Atarax -) 10 mg PO Q6HPO [facility] Last Admin: 07/24/17 11:23 Dose: 10 mg Insulin Aspart (Novolog Vial Sliding Scale -) 1 vial SQ ACHS [facility] PRN Reason: Protocol Last Admin: 07/24/17 12:11 Dose: 2 unit Lactic Acid (Lac-Hydrin 12) 1 applic TP DAILY [facility] Last Admin: 07/24/17 10:02 Dose: Not Given Levothyroxine Sodium (Synthroid -) 25 mcg PO AM [facility] Last Admin: 07/24/17 06:29 Dose: 25 mcg Lidocaine/Aluminum/Magnesium/Simeth (Magic Mouthwash *Sjr Formula* -) 5 ml MM Q6HPO [facility] Last Admin: 07/24/17 11:24 Dose: 5 ml Magnesium Oxide (Mag-Ox -) 400 mg PO BID [facility] Last Admin: 07/24/17 10:02 Dose: 400 mg Morphine Sulfate (Ms Contin -) 15 mg PO BID [facility] Last Admin: 07/24/17 10:01 Dose: 15 mg Patient's Own Medication (Non- Formulary) (Tasigna 150mg) 300 mg PO BID@0600, 2000 [facility] Last Admin: 07/24/17 06:25 Dose: Not Given Nystatin (Nystop Powder -) 1 applic TP BID [facility] Last Admin: 07/24/17 10:03 Dose: 1 applic Oxycodone HCl (Roxicodone -) 10 mg PO Q4H PRN Last Admin: 07/24/17 03:44 Dose: 10 mg Pantoprazole Sodium (Protonix -) 40 mg PO DAILY [facility] Last Admin: 07/24/17 10:02 Dose: 40 mg Polyethylene Glycol (Miralax (For Daily Use) -) 17 gm PO DAILY PRN Last Admin: 07/24/17 15:34 Dose: 17 gm Torsemide (Demadex -) 60 mg PO DAILY [facility] Warfarin Sodium (Coumadin -) 5 mg PO DAILY@1800 [facility] Last Admin: 07/23/17 18:16 Dose: 5 mg - Objective Vital Signs: Vital Signs Temperature 98.0 F 07/24/17 09:00 Pulse Rate 75 07/24/17 09:00 Respiratory Rate 18 07/24/17 09:00 Blood Pressure 133/57 07/24/17 09:00 O2 Sat by Pulse Oximetry (%) 100 07/24/17 09:00 Constitutional: Yes: No Distress, Calm, Obese Respiratory: Yes: Regular, CTA Bilaterally Gastrointestinal: Yes: Normal Bowel Sounds, Soft Musculoskeletal: Yes: Other Extremities: Yes: Other Neurological: Yes: Alert, Oriented Psychiatric: Yes: Alert, Oriented Labs: CBC, BMP 07/24/17 09:42 07/24/17 09:42 INR, PTT INR 2.26 (0.82-1.09) H 07/24/17 09:42 Assessment/Plan . Assessment/Plan (1) Atrial fibrillation with RVR Code(s): I48.91 - UNSPECIFIED ATRIAL FIBRILLATION (2) Sepsis Code(s): A41.9 - SEPSIS, UNSPECIFIED ORGANISM Qualifiers: Sepsis type: Escherichia coli Qualified Code(s): A41.51 - Sepsis due to Escherichia coli [E. coli]; A41.51 - Sepsis due to Escherichia coli [E. coli]; A41.51 - Sepsis due to Escherichia coli [E. coli] (3) UTI (urinary tract infection) Code(s): N39.0 - URINARY TRACT INFECTION, SITE NOT SPECIFIED Qualifiers: Urinary tract infection type: acute cystitis Hematuria presence: without hematuria Qualified Code(s): N30.00 - Acute cystitis without hematuria; N30.00 - Acute cystitis without hematuria (4) ASA (acute kidney injury) Code(s): N17.9 - ACUTE KIDNEY FAILURE, UNSPECIFIED (5) Drug induced rash with eosinophilia and systemic symptoms Code(s): L27.0 - GEN SKIN ERUPTION DUE TO DRUGS AND MEDS TAKEN INTERNALLY D72.1 - EOSINOPHILIA T50.905A - ADVERSE EFFECT OF UNSP DRUG/MEDS/BIOL SUBST, INIT (6) Anemia Code(s): D64.9 - ANEMIA, UNSPECIFIED Qualifiers: Anemia type: other cause Other causes of anemia: acute posthemorrhagic Qualified Code(s): D62 - Acute posthemorrhagic anemia; D62 - Acute posthemorrhagic anemia (7) CHF (congestive heart failure) Code(s): I50.9 - HEART FAILURE, UNSPECIFIED Qualifiers: Congestive heart failure type: diastolic Congestive heart failure chronicity: chronic Qualified Code(s): I50.32 - Chronic diastolic ( congestive) heart failure; I50.32 - Chronic diastolic (congestive) heart failure ; I50.32 - Chronic diastolic (congestive) heart failure; I50.32 - Chronic diastolic (congestive) heart failure (8) CML (chronic myelocytic leukemia) Code(s): C92.10 - CHRONIC MYELOID LEUK, BCR/ABL-POSITIVE, NOT ACHIEVE REMIS (9) COPD (chronic obstructive pulmonary disease) Code(s): J44.9 - CHRONIC OBSTRUCTIVE PULMONARY DISEASE, UNSPECIFIED (10) Diabetes Code(s): E11.9 - TYPE 2 DIABETES MELLITUS WITHOUT COMPLICATIONS (11) Hypothyroid Code(s): E03.9 - HYPOTHYROIDISM, UNSPECIFIED plan stable off of abx continue current mgmt skin care conintue cream for local application monitor for infections
[2017-07-24] MEDS: WARFARIN NA 5 MG TABLET (UD) PO SCH (17:09)
[2017-07-24] MEDS ORDERED: PT OWN MED DRAWER 7, Y5N ONE (17:41)
[2017-07-24] MEDS ORDERED: MAGNESIUM HYDROX 2400MG/30ML ORAL SUSPENSION 30 ML CUP PO ONE (21:37)
[2017-07-25] MEDS: oxyCODONE HCL 5 MG TABLET PO PRN ×2 (06:06→11:57)
[2017-07-25] MEDS: LEVOTHYROXINE NA 25 MCG TABLET (FP) PO SCH (06:07)
[2017-07-25] MEDS: hydrOXYzine HCL 10 MG TABLET PO SCH ×3 (06:07→17:45)
[2017-07-25] MEDS: TASIGNA 150 MG PO SCH ×2 (06:08→20:37)
[2017-07-25] MEDS: MAG HYDROX/ALH/SMC/DPHA/LIDO 240 ML MOUTHWASH MM SCH ×3 (06:09→17:48)
[2017-07-25] MEDS: INSULIN SLIDING SCALE (NOVOLOG) 1 VIAL SQ SCH ×4 (06:09→22:43)
[2017-07-25] MEDS ORDERED: INSULIN (NOVOLOG) ASPART 100 UNITS/ML 10ML VIAL ONE ×4 (06:37→22:20)
[2017-07-25] MEDS ORDERED: PT OWN MED DRAWER 7, Y5N ONE ×4 (06:37→23:46)
[2017-07-25 07:50] LABS: BASOPHIL 0.4 % (0-2.0); EOSINOPHIL 3.8 % (0-4.5); MCH 28.8 pg (25.7-33.7); MCHC 32.6 g/dl (32.0-36.0); MEAN CELL VOLUME 88.1 fl (80-96); MEAN PLT VOLUME 7.7 fl (7.5-11.1); NEUTROPHILS 77.4 % (42.8-82.8); PLATELET COUNT 175 K/MM3 (134-434); RDW 19.7 % (11.6-15.6); WHITE BLOOD COUNT 7.7 K/mm3 (4.0-10.0)
[2017-07-25 07:59] LABS: INR 2.41 (0.82-1.09); PROTHROMBIN TIME (PATIENT) 27.2 SEC (9.98-11.88)
[2017-07-25 08:25] LABS: ALBUMIN 1.8 g/dl (3.4-5.0); ALK PHOS 114 U/L (45-117); ANION GAP 7 (8-16); BILIRUBIN,TOTAL 0.4 mg/dL (0.2-1.0); CALCIUM 7.2 mg/dL (8.5-10.1); CO2 25 mmol/L (21-32); GLUCOSE,RANDOM 153 mg/dL (74-106); MAGNESIUM 1.8 mg/dL (1.8-2.4); SGOT/AST 11 U/L (15-37); SGPT/ALT 12 U/L (12-78); TOT PROT 6.2 g/dl (6.4-8.2)
[2017-07-25] MEDS: morphine SO4 SUSTAINED ACTING 15 MG TABLET.SA PO SCH ×2 (09:37→22:41)
[2017-07-25] MEDS: MAGNESIUM OXIDE 400 MG TABLET (FP) PO SCH ×2 (09:37→22:40)
[2017-07-25] MEDS: PANTOPRAZOLE 40 MG TABLET (FP) PO SCH (09:37)
[2017-07-25] MEDS: AMMONIUM LACTATE 12% LOTION 225 GM BOTTLE TP SCH (09:38)
[2017-07-25] MEDS: POLYETHYLENE GLYCOL 3350 119 GM BTL PO PRN (09:38)
[2017-07-25] MEDS: NYSTATIN POWDER 100,000 UNITS/GM - 15 GM TOPICAL POWDER TP SCH ×2 (09:39→22:41)
[2017-07-25] MEDS: FLUOCINONIDE 0.05% TOP OINT (60 GM TUBE) TP SCH ×2 (09:39→22:44)
--- NOTE | 2017-07-25 09:44 | PN ---
Progress Note (short form) - Note Progress Note: seen and examined Chart reviewed c/o constipation feels overall well O/E NAD NCAT Abdomen Benign Skin looks better.now with peeling. LE changes present, chronic Last Vital Signs Temp Pulse Resp BP Pulse Ox 98.8 F 97 H 20 147/63 100 07/25/17 09:02 07/25/17 09:02 07/25/17 09:02 07/25/17 09:02 07/24/17 20:37 CBC, BMP 07/25/17 06:00 07/25/17 06:00 Current Medications Generic Name Dose Route Start Last Admin Trade Name Freq PRN Reason Stop Dose Admin Acetaminophen 650 mg 07/18/17 03:25 07/19/17 18:58 Tylenol - PO 650 mg Q6H PRN Administration PAIN Arformoterol Tartrate 1 amp 07/18/17 10:00 07/24/17 22:11 Brovana (Restricted To Pulmonology/Resp) - NEB 1 amp BID [facility] Administration Diphenhydramine HCl 25 mg 07/12/17 11:06 07/22/17 08:30 Benadryl - PO 25 mg Q6H PRN Administration FOR ITCHING Fluocinonide 1 applic 07/17/17 10:15 07/25/17 09:39 Lidex 0.05% Ointment - TP 1 applic BID [facility] Administration Hydroxyzine HCl 10 mg 07/13/17 14:15 07/25/17 06:07 Atarax - PO 10 mg Q6HPO [facility] Administration Insulin Aspart 1 vial 07/18/17 07:00 07/25/17 06:09 Novolog Vial Sliding Scale - SQ 2 unit ACHS [facility] Administration Protocol Lactic Acid 1 applic 07/16/17 14:45 07/25/17 09:38 Lac-Hydrin 12 TP Not Given DAILY [facility] Levothyroxine Sodium 25 mcg 07/18/17 07:00 07/25/17 06:07 Synthroid - PO 25 mcg AM [facility] Administration Lidocaine/Aluminum/Magnesium/Simeth 5 ml 07/22/17 13:00 07/25/17 06:09 Magic Mouthwash *Sjr Formula* - MM 5 ml Q6HPO [facility] Administration Magnesium Oxide 400 mg 07/21/17 15:00 07/25/17 09:37 Mag-Ox - PO 400 mg BID [facility] Administration Morphine Sulfate 15 mg 11/12/17 22:00 07/25/17 09:37 Ms Contin - PO 15 mg BID [facility] Administration Patient's Own 300 mg 07/19/17 19:31 07/25/17 06:08 Medication (Non- PO 300 mg Formulary) (Tasigna BID@0600,2000 [facility] Administration 150mg) Nystatin 1 applic 07/16/17 22:00 07/25/17 09:39 Nystop Powder - TP 1 applic BID [facility] Administration Oxycodone HCl 10 mg 07/18/17 03:25 07/25/17 06:06 Roxicodone - PO 10 mg Q4H PRN Administration Pantoprazole Sodium 40 mg 07/12/17 10:45 07/25/17 09:37 Protonix - PO 40 mg DAILY [facility] Administration Polyethylene Glycol 17 gm 07/23/17 20:40 07/25/17 09:38 Miralax (For Daily Use) - PO 17 gm DAILY PRN Administration Torsemide 60 mg 07/24/17 10:30 Demadex - PO DAILY [facility] Warfarin Sodium 5 mg 07/21/17 18:00 07/24/17 17:09 Coumadin - PO 5 mg DAILY@1800 [facility] Administration CML -c/w Nilotinib -last BCR ABL with CR -iron studies reviewed ,consistent with ACD/ACI, last EGD/Colonoscopy negative -continue to monitor hgb -discussed again today about a bone marrow biopsy, she says she is not ready to undergo the procedure. will inform monte about pts admission/course New afib -on coumadin -hgb stable ATN: -resolved -had urine eosinophilia -now with Cr of 1.0 Rash: -skin much better, now peeling off and appears dry. -rash consistent with drup reaction. -suspect DRESS, eosinophilia resolved Constipation: -Bowel regimen. -on mirlax/Milk of magnesia ?oob to chair will follow
[2017-07-25] MEDS: TORSEMIDE 20 MG TABLET (FP) PO SCH (11:27)
[2017-07-25] MEDS: ARFORMOTEROL TARTRATE 15 MCG/2 ML VIAL NEB SCH ×3 (11:42→22:38)
[2017-07-25] MEDS: DOCUSATE SODIUM 100 MG CAPSULE (FP) PO SCH ×3 (11:57→22:40)
[2017-07-25] MEDS: POLYETHYLENE GLYCOL 3350 119 GM BTL PO SCH ×2 (11:58→22:40)
--- NOTE | 2017-07-25 12:02 | PN ---
Progress Note, Physician Chief Complaint: Ms Hernandez says she is very constipated today. Otherwise she is feeling much better. Denies cp, sob, n/v. - Current Medication List Current Medications: Active Medications Acetaminophen (Tylenol -) 650 mg PO Q6H PRN PRN Reason: PAIN Last Admin: 07/19/17 18:58 Dose: 650 mg Arformoterol Tartrate (Brovana (Restricted To Pulmonology/Resp) -) 1 amp NEB BID [facility] Last Admin: 07/25/17 11:44 Dose: Not Given Diphenhydramine HCl (Benadryl -) 25 mg PO Q6H PRN PRN Reason: FOR ITCHING Last Admin: 07/22/17 08:30 Dose: 25 mg Docusate Sodium (Colace -) 100 mg PO TID [facility] Last Admin: 07/25/17 11:57 Dose: 100 mg Fluocinonide (Lidex 0.05% Ointment -) 1 applic TP BID [facility] Last Admin: 07/25/17 09:39 Dose: 1 applic Hydroxyzine HCl (Atarax -) 10 mg PO Q6HPO [facility] Last Admin: 07/25/17 11:27 Dose: 10 mg Insulin Aspart (Novolog Vial Sliding Scale -) 1 vial SQ ACHS [facility] PRN Reason: Protocol Last Admin: 07/25/17 06:09 Dose: 2 unit Lactic Acid (Lac-Hydrin 12) 1 applic TP DAILY [facility] Last Admin: 07/25/17 09:38 Dose: Not Given Levothyroxine Sodium (Synthroid -) 25 mcg PO AM [facility] Last Admin: 07/25/17 06:07 Dose: 25 mcg Lidocaine/Aluminum/Magnesium/Simeth (Magic Mouthwash *Sjr Formula* -) 5 ml MM Q6HPO [facility] Last Admin: 07/25/17 11:58 Dose: 5 ml Magnesium Oxide (Mag-Ox -) 400 mg PO BID [facility] Last Admin: 07/25/17 09:37 Dose: 400 mg Morphine Sulfate (Ms Contin -) 15 mg PO BID [facility] Last Admin: 07/25/17 09:37 Dose: 15 mg Patient's Own Medication (Non- Formulary) (Tasigna 150mg) 300 mg PO BID@0600, 2000 [facility] Last Admin: 07/25/17 06:08 Dose: 300 mg Nystatin (Nystop Powder -) 1 applic TP BID [facility] Last Admin: 07/25/17 09:39 Dose: 1 applic Oxycodone HCl (Roxicodone -) 10 mg PO Q4H PRN Last Admin: 07/25/17 11:57 Dose: 10 mg Pantoprazole Sodium (Protonix -) 40 mg PO DAILY [facility] Last Admin: 07/25/17 09:37 Dose: 40 mg Polyethylene Glycol (Miralax (For Daily Use) -) 17 gm PO BID [facility] Last Admin: 07/25/17 11:58 Dose: Not Given Torsemide (Demadex -) 40 mg PO DAILY [facility] Last Admin: 07/25/17 11:27 Dose: 40 mg Warfarin Sodium (Coumadin -) 5 mg PO DAILY@1800 [facility] Last Admin: 07/24/17 17:09 Dose: 5 mg - Objective Vital Signs: Vital Signs Temperature 37.1 C 07/25/17 09:02 Pulse Rate 97 H 07/25/17 09:02 Respiratory Rate 20 07/25/17 09:02 Blood Pressure 147/63 07/25/17 09:02 O2 Sat by Pulse Oximetry (%) 100 07/24/17 20:37 Constitutional: Yes: No Distress, Calm, Obese Cardiovascular: Yes: Regular Rate and Rhythm. No: Gallop, Murmur, Rub Respiratory: Yes: Regular, CTA Bilaterally. No: Rales, Rhonchi, Wheezes Gastrointestinal: Yes: Normal Bowel Sounds, Soft. No: Distention, Tenderness Extremities: Yes: Erythema Edema: Yes Edema: LLE: 2+, RLE: 2+ Labs: CBC, BMP 07/25/17 06:00 07/25/17 06:00 INR, PTT INR 2.41 (0.82-1.09) H 07/25/17 06:00 Problem List - Problems (1) Diabetes Code(s): E11.9 - TYPE 2 DIABETES MELLITUS WITHOUT COMPLICATIONS (2) CML (chronic myelocytic leukemia) Code(s): C92.10 - CHRONIC MYELOID LEUK, BCR/ABL-POSITIVE, NOT ACHIEVE REMIS (3) Anemia Code(s): D64.9 - ANEMIA, UNSPECIFIED Qualifiers: Anemia type: other cause Other causes of anemia: chronic disease, other Qualified Code(s): D63.8 - Anemia in other chronic diseases classified elsewhere (4) Hypothyroid Code(s): E03.9 - HYPOTHYROIDISM, UNSPECIFIED (5) COPD (chronic obstructive pulmonary disease) Code(s): J44.9 - CHRONIC OBSTRUCTIVE PULMONARY DISEASE, UNSPECIFIED (6) CHF (congestive heart failure) Code(s): I50.9 - HEART FAILURE, UNSPECIFIED Qualifiers: Congestive heart failure type: diastolic Congestive heart failure chronicity: chronic Qualified Code(s): I50.32 - Chronic diastolic (congestive ) heart failure (7) Sepsis Code(s): A41.9 - SEPSIS, UNSPECIFIED ORGANISM Qualifiers: Sepsis type: Escherichia coli Qualified Code(s): A41.51 - Sepsis due to Escherichia coli [E. coli] (8) Drug induced rash with eosinophilia and systemic symptoms Code(s): L27.0 - GEN SKIN ERUPTION DUE TO DRUGS AND MEDS TAKEN INTERNALLY; D72.1 - EOSINOPHILIA; T50.905A - ADVERSE EFFECT OF UNSP DRUG/MEDS/BIOL SUBST, INIT (9) ASA (acute kidney injury) Code(s): N17.9 - ACUTE KIDNEY FAILURE, UNSPECIFIED (10) Atrial fibrillation with RVR Code(s): I48.91 - UNSPECIFIED ATRIAL FIBRILLATION (11) UTI (urinary tract infection) Code(s): N39.0 - URINARY TRACT INFECTION, SITE NOT SPECIFIED Qualifiers: Urinary tract infection type: acute cystitis Hematuria presence: without hematuria Qualified Code(s): N30.00 - Acute cystitis without hematuria Assessment/Plan (1) Atrial fibrillation with RVR Assessment/Plan: -currently in sinus rhythm on exam -INR therapeutic on coumadin -continue coumadin 5mg Code(s): I48.91 - UNSPECIFIED ATRIAL FIBRILLATION (2) Sepsis Assessment/Plan: -resolved Code(s): A41.9 - SEPSIS, UNSPECIFIED ORGANISM Qualifiers: Sepsis type: Escherichia coli Qualified Code(s): A41.51 - Sepsis due to Escherichia coli [E. coli]; A41.51 - Sepsis due to Escherichia coli [E. coli]; A41.51 - Sepsis due to Escherichia coli [E. coli] (3) UTI (urinary tract infection) Assessment/Plan: -s/p treatment Code(s): N39.0 - URINARY TRACT INFECTION, SITE NOT SPECIFIED Qualifiers: Urinary tract infection type: acute cystitis Hematuria presence: without hematuria Qualified Code(s): N30.00 - Acute cystitis without hematuria; N30.00 - Acute cystitis without hematuria (4) ASA (acute kidney injury) Assessment/Plan: -nephrology following -improving Code(s): N17.9 - ACUTE KIDNEY FAILURE, UNSPECIFIED (5) Drug induced rash with eosinophilia and systemic symptoms Assessment/Plan: -much improved Code(s): L27.0 - GEN SKIN ERUPTION DUE TO DRUGS AND MEDS TAKEN INTERNALLY D72.1 - EOSINOPHILIA T50.905A - ADVERSE EFFECT OF UNSP DRUG/MEDS/BIOL SUBST, INIT (6) Anemia Assessment/Plan: -continue iron -at baseline Code(s): D64.9 - ANEMIA, UNSPECIFIED Qualifiers: Anemia type: other cause Other causes of anemia: acute posthemorrhagic Qualified Code(s): D62 - Acute posthemorrhagic anemia; D62 - Acute posthemorrhagic anemia (7) CHF (congestive heart failure) Assessment/Plan: -torsemide increased to 40mg today -if creatinine tolerates, plan for discharge tomorrow Code(s): I50.9 - HEART FAILURE, UNSPECIFIED Qualifiers: Congestive heart failure type: diastolic Congestive heart failure chronicity: chronic Qualified Code(s): I50.32 - Chronic diastolic ( congestive) heart failure; I50.32 - Chronic diastolic (congestive) heart failure ; I50.32 - Chronic diastolic (congestive) heart failure; I50.32 - Chronic diastolic (congestive) heart failure (8) CML (chronic myelocytic leukemia) Assessment/Plan: -continue tasigna Code(s): C92.10 - CHRONIC MYELOID LEUK, BCR/ABL-POSITIVE, NOT ACHIEVE REMIS (9) COPD (chronic obstructive pulmonary disease) Assessment/Plan: -not in exacerbation -continue current regimen Code(s): J44.9 - CHRONIC OBSTRUCTIVE PULMONARY DISEASE, UNSPECIFIED (10) Diabetes Assessment/Plan: -continue current management Code(s): E11.9 - TYPE 2 DIABETES MELLITUS WITHOUT COMPLICATIONS (11) Hypothyroid Assessment/Plan: -continue synthroid Code(s): E03.9 - HYPOTHYROIDISM, UNSPECIFIED (12) Conjunctivitis -s/p full treatment (13) Constipation -schedule miralax, bid -colace tid -monitor for bowel movement Dispo -plan for discharge tomorrow
--- NOTE | 2017-07-25 12:59 | PN ---
Progress Note (short form) - Note Progress Note: Chief Complaint: sepsis History of Present Illness: denies sob, orthopnea, cp, palp + leg swelling, slightly worse. + pain. started on torsemide today. Current Medications Acetaminophen (Tylenol -) 650 mg PO Q6H PRN PRN Reason: PAIN Last Admin: 07/19/17 18:58 Dose: 650 mg Arformoterol Tartrate (Brovana (Restricted To Pulmonology/Resp) -) 1 amp NEB BID [facility] Last Admin: 07/25/17 11:44 Dose: Not Given Diphenhydramine HCl (Benadryl -) 25 mg PO Q6H PRN PRN Reason: FOR ITCHING Last Admin: 07/22/17 08:30 Dose: 25 mg Docusate Sodium (Colace -) 100 mg PO TID [facility] Last Admin: 07/25/17 11:57 Dose: 100 mg Fluocinonide (Lidex 0.05% Ointment -) 1 applic TP BID [facility] Last Admin: 07/25/17 09:39 Dose: 1 applic Hydroxyzine HCl (Atarax -) 10 mg PO Q6HPO [facility] Last Admin: 07/25/17 11:27 Dose: 10 mg Insulin Aspart (Novolog Vial Sliding Scale -) 1 vial SQ ACHS [facility] PRN Reason: Protocol Last Admin: 07/25/17 12:24 Dose: 4 unit Lactic Acid (Lac-Hydrin 12) 1 applic TP DAILY [facility] Last Admin: 07/25/17 09:38 Dose: Not Given Levothyroxine Sodium (Synthroid -) 25 mcg PO AM [facility] Last Admin: 07/25/17 06:07 Dose: 25 mcg Lidocaine/Aluminum/Magnesium/Simeth (Magic Mouthwash *Sjr Formula* -) 5 ml MM Q6HPO [facility] Last Admin: 07/25/17 11:58 Dose: 5 ml Magnesium Oxide (Mag-Ox -) 400 mg PO BID [facility] Last Admin: 07/25/17 09:37 Dose: 400 mg Morphine Sulfate (Ms Contin -) 15 mg PO BID [facility] Last Admin: 07/25/17 09:37 Dose: 15 mg Patient's Own Medication (Non- Formulary) (Tasigna 150mg) 300 mg PO BID@0600, 2000 [facility] Last Admin: 07/25/17 06:08 Dose: 300 mg Nystatin (Nystop Powder -) 1 applic TP BID [facility] Last Admin: 07/25/17 09:39 Dose: 1 applic Oxycodone HCl (Roxicodone -) 10 mg PO Q4H PRN Last Admin: 07/25/17 11:57 Dose: 10 mg Pantoprazole Sodium (Protonix -) 40 mg PO DAILY [facility] Last Admin: 07/25/17 09:37 Dose: 40 mg Polyethylene Glycol (Miralax (For Daily Use) -) 17 gm PO BID [facility] Last Admin: 07/25/17 11:58 Dose: Not Given Torsemide (Demadex -) 40 mg PO DAILY [facility] Last Admin: 07/25/17 11:27 Dose: 40 mg Warfarin Sodium (Coumadin -) 5 mg PO DAILY@1800 [facility] Last Admin: 07/24/17 17:09 Dose: 5 mg - Objective Vital Signs: Vital Signs - 24 hr 07/24/17 07/24/17 07/24/17 18:00 20:37 21:54 Temperature 98.1 F 98 F Pulse Rate 86 78 Respiratory 20 20 20 Rate Blood Pressure 135/76 146/75 O2 Sat by Pulse 100 Oximetry (%) 07/25/17 07/25/17 05:00 09:02 Temperature 98.7 F 98.8 F Pulse Rate 87 97 H Respiratory 20 20 Rate Blood Pressure 139/57 147/63 O2 Sat by Pulse Oximetry (%) Intake & Output 07/23/17 07/24/17 07/25/17 07/26/17 07:59 07:59 07:59 07:59 Intake Total 974 400 520 Balance 974 400 520 Constitutional: Yes: No Distress, Calm, Obese Cardiovascular: Yes: Regular Rate and Rhythm, JVD, S1, S2. No: Gallop, Murmur Respiratory: Yes: Regular, CTA Bilaterally. No: Accessory Muscle Use, Wheezes Extremities: No: Cold Edema: Yes (pitting/nonpitting) Neurological: Yes: Alert, Oriented Psychiatric: No: Agitated Labs: CBC, BMP 07/25/17 06:00 07/25/17 06:00 Assessment/Plan echo 04/2017: tds. nl lv/rv. 1+ lae. mod mac mild-mod tr rvsp 45. A/P 66 yo f with hx htn, dm, hld, hypothyroid, obesity, possible copd, CML/anemia, p /w chills found to have uti/sepsis/asa. hospital course complicated by new afib with rvr. new afib - hgb is stable vs prior baseline. was 6's on admit, currently around 8. - this would provide little reserve if she develops bleeding on AC agent; - CHADS VASC = 3, with risk of stroke (approx 3%/year) higher than likelihood of bleeding in general. - d/w'd pt's outpt heme at [facility], [place]--she is linked in closely there with regular f/u, will be followed and may end up needing BM biopsy and/or small bowel study for iron def anemia workup. heme rec's trial of AC with close monitoring of counts for now. - started on coumadin here, counts thus far stable at her recent outpt baseline - currently rate controlled/SR off av kia blockade --> starting bb as mentioned below - recent echo wnl ASA: - ? etiology - renal following, JANE held -cr improved now diastolic chf: - stable vol status - currently she is back on maintenance po torsemide 20 qd - having no sx's, though JVD is markedly elevated (near jaw) - lytes/renal fxn stable - 07/25 started on torsemide 40 mg qd to give her more of a buffer zone to avoid decompensated chf/sx's--monitor lytes and renal fxn trend. prior home dose was 20 mg, will likely need to be downtitrated in the near future. will need ongoing weight checks, follow up bmp as outpatient. venous ins/lymphedema: -chronic swelling --> as above anemia: -baseline dropped several months ago, + iron deficiency per outpt heme -recent FOC and EGD here unrevealing -has outpt heme f/u--considering BM biopsy and/or small bowel workup in future, sooner if drops counts with AC htn: -holding JANE (for ASA) - 07/25 bp trending up, will start low dose BB hld: - Given diabetes, consider statin therapy--defer to outpt setting in light of mult acute med issues
--- NOTE | 2017-07-25 13:51 | PN ---
Progress Note, Physician History of Present Illness: doing well no new issues - Current Medication List Current Medications: Active Medications Acetaminophen (Tylenol -) 650 mg PO Q6H PRN PRN Reason: PAIN Last Admin: 07/19/17 18:58 Dose: 650 mg Arformoterol Tartrate (Brovana (Restricted To Pulmonology/Resp) -) 1 amp NEB BID [facility] Last Admin: 07/25/17 11:44 Dose: Not Given Diphenhydramine HCl (Benadryl -) 25 mg PO Q6H PRN PRN Reason: FOR ITCHING Last Admin: 07/22/17 08:30 Dose: 25 mg Docusate Sodium (Colace -) 100 mg PO TID [facility] Last Admin: 07/25/17 11:57 Dose: 100 mg Fluocinonide (Lidex 0.05% Ointment -) 1 applic TP BID [facility] Last Admin: 07/25/17 09:39 Dose: 1 applic Hydroxyzine HCl (Atarax -) 10 mg PO Q6HPO [facility] Last Admin: 07/25/17 11:27 Dose: 10 mg Insulin Aspart (Novolog Vial Sliding Scale -) 1 vial SQ ACHS [facility] PRN Reason: Protocol Last Admin: 07/25/17 12:24 Dose: 4 unit Lactic Acid (Lac-Hydrin 12) 1 applic TP DAILY [facility] Last Admin: 07/25/17 09:38 Dose: Not Given Levothyroxine Sodium (Synthroid -) 25 mcg PO AM [facility] Last Admin: 07/25/17 06:07 Dose: 25 mcg Lidocaine/Aluminum/Magnesium/Simeth (Magic Mouthwash *Sjr Formula* -) 5 ml MM Q6HPO [facility] Last Admin: 07/25/17 11:58 Dose: 5 ml Magnesium Oxide (Mag-Ox -) 400 mg PO BID [facility] Last Admin: 07/25/17 09:37 Dose: 400 mg Morphine Sulfate (Ms Contin -) 15 mg PO BID [facility] Last Admin: 07/25/17 09:37 Dose: 15 mg Patient's Own Medication (Non- Formulary) (Tasigna 150mg) 300 mg PO BID@0600, 2000 [facility] Last Admin: 07/25/17 06:08 Dose: 300 mg Nystatin (Nystop Powder -) 1 applic TP BID [facility] Last Admin: 07/25/17 09:39 Dose: 1 applic Oxycodone HCl (Roxicodone -) 10 mg PO Q4H PRN Last Admin: 07/25/17 11:57 Dose: 10 mg Pantoprazole Sodium (Protonix -) 40 mg PO DAILY [facility] Last Admin: 07/25/17 09:37 Dose: 40 mg Polyethylene Glycol (Miralax (For Daily Use) -) 17 gm PO BID [facility] Last Admin: 07/25/17 11:58 Dose: Not Given Torsemide (Demadex -) 40 mg PO DAILY [facility] Last Admin: 07/25/17 11:27 Dose: 40 mg Warfarin Sodium (Coumadin -) 5 mg PO DAILY@1800 [facility] Last Admin: 07/24/17 17:09 Dose: 5 mg - Objective Vital Signs: Vital Signs Temperature 98.8 F 07/25/17 09:02 Pulse Rate 97 H 07/25/17 09:02 Respiratory Rate 20 07/25/17 09:02 Blood Pressure 147/63 07/25/17 09:02 O2 Sat by Pulse Oximetry (%) 100 07/24/17 20:37 Constitutional: Yes: No Distress, Calm, Obese Cardiovascular: Yes: Regular Rate and Rhythm Respiratory: Yes: Regular, CTA Bilaterally Gastrointestinal: Yes: Normal Bowel Sounds, Soft Extremities: Yes: Other Neurological: Yes: Alert, Oriented Labs: CBC, BMP 07/25/17 06:00 07/25/17 06:00 INR, PTT INR 2.41 (0.82-1.09) H 07/25/17 06:00 Assessment/Plan . Assessment/Plan (1) Atrial fibrillation with RVR Code(s): I48.91 - UNSPECIFIED ATRIAL FIBRILLATION (2) Sepsis Code(s): A41.9 - SEPSIS, UNSPECIFIED ORGANISM Qualifiers: Sepsis type: Escherichia coli Qualified Code(s): A41.51 - Sepsis due to Escherichia coli [E. coli]; A41.51 - Sepsis due to Escherichia coli [E. coli]; A41.51 - Sepsis due to Escherichia coli [E. coli] (3) UTI (urinary tract infection) Code(s): N39.0 - URINARY TRACT INFECTION, SITE NOT SPECIFIED Qualifiers: Urinary tract infection type: acute cystitis Hematuria presence: without hematuria Qualified Code(s): N30.00 - Acute cystitis without hematuria; N30.00 - Acute cystitis without hematuria (4) ASA (acute kidney injury) Code(s): N17.9 - ACUTE KIDNEY FAILURE, UNSPECIFIED (5) Drug induced rash with eosinophilia and systemic symptoms Code(s): L27.0 - GEN SKIN ERUPTION DUE TO DRUGS AND MEDS TAKEN INTERNALLY D72.1 - EOSINOPHILIA T50.905A - ADVERSE EFFECT OF UNSP DRUG/MEDS/BIOL SUBST, INIT (6) Anemia Code(s): D64.9 - ANEMIA, UNSPECIFIED Qualifiers: Anemia type: other cause Other causes of anemia: acute posthemorrhagic Qualified Code(s): D62 - Acute posthemorrhagic anemia; D62 - Acute posthemorrhagic anemia (7) CHF (congestive heart failure) Code(s): I50.9 - HEART FAILURE, UNSPECIFIED Qualifiers: Congestive heart failure type: diastolic Congestive heart failure chronicity: chronic Qualified Code(s): I50.32 - Chronic diastolic ( congestive) heart failure; I50.32 - Chronic diastolic (congestive) heart failure ; I50.32 - Chronic diastolic (congestive) heart failure; I50.32 - Chronic diastolic (congestive) heart failure (8) CML (chronic myelocytic leukemia) Code(s): C92.10 - CHRONIC MYELOID LEUK, BCR/ABL-POSITIVE, NOT ACHIEVE REMIS (9) COPD (chronic obstructive pulmonary disease) Code(s): J44.9 - CHRONIC OBSTRUCTIVE PULMONARY DISEASE, UNSPECIFIED (10) Diabetes Code(s): E11.9 - TYPE 2 DIABETES MELLITUS WITHOUT COMPLICATIONS (11) Hypothyroid Code(s): E03.9 - HYPOTHYROIDISM, UNSPECIFIED plan stable off of abx continue current mgmt skin care conintue cream for local application monitor for infections
--- NOTE | 2017-07-25 14:17 | PN ---
Progress Note, Physician History of Present Illness: Pt seen and examined at bedside. She is awake and alert. - Current Medication List Current Medications: Active Medications Acetaminophen (Tylenol -) 650 mg PO Q6H PRN PRN Reason: PAIN Last Admin: 07/19/17 18:58 Dose: 650 mg Arformoterol Tartrate (Brovana (Restricted To Pulmonology/Resp) -) 1 amp NEB BID [facility] Last Admin: 07/25/17 11:44 Dose: Not Given Diphenhydramine HCl (Benadryl -) 25 mg PO Q6H PRN PRN Reason: FOR ITCHING Last Admin: 07/22/17 08:30 Dose: 25 mg Docusate Sodium (Colace -) 100 mg PO TID [facility] Last Admin: 07/25/17 11:57 Dose: 100 mg Fluocinonide (Lidex 0.05% Ointment -) 1 applic TP BID [facility] Last Admin: 07/25/17 09:39 Dose: 1 applic Hydroxyzine HCl (Atarax -) 10 mg PO Q6HPO [facility] Last Admin: 07/25/17 11:27 Dose: 10 mg Insulin Aspart (Novolog Vial Sliding Scale -) 1 vial SQ ACHS [facility] PRN Reason: Protocol Last Admin: 07/25/17 12:24 Dose: 4 unit Lactic Acid (Lac-Hydrin 12) 1 applic TP DAILY [facility] Last Admin: 07/25/17 09:38 Dose: Not Given Levothyroxine Sodium (Synthroid -) 25 mcg PO AM [facility] Last Admin: 07/25/17 06:07 Dose: 25 mcg Lidocaine/Aluminum/Magnesium/Simeth (Magic Mouthwash *Sjr Formula* -) 5 ml MM Q6HPO [facility] Last Admin: 07/25/17 11:58 Dose: 5 ml Magnesium Hydroxide (Milk Of Magnesia -) 30 ml PO Q8H PRN PRN Reason: INDIGESTION Magnesium Oxide (Mag-Ox -) 400 mg PO BID [facility] Last Admin: 07/25/17 09:37 Dose: 400 mg Morphine Sulfate (Ms Contin -) 15 mg PO BID [facility] Last Admin: 07/25/17 09:37 Dose: 15 mg Patient's Own Medication (Non- Formulary) (Tasigna 150mg) 300 mg PO BID@0600, 2000 [facility] Last Admin: 07/25/17 06:08 Dose: 300 mg Nystatin (Nystop Powder -) 1 applic TP BID [facility] Last Admin: 07/25/17 09:39 Dose: 1 applic Oxycodone HCl (Roxicodone -) 10 mg PO Q4H PRN Last Admin: 07/25/17 11:57 Dose: 10 mg Pantoprazole Sodium (Protonix -) 40 mg PO DAILY [facility] Last Admin: 07/25/17 09:37 Dose: 40 mg Polyethylene Glycol (Miralax (For Daily Use) -) 17 gm PO BID [facility] Last Admin: 07/25/17 11:58 Dose: Not Given Torsemide (Demadex -) 40 mg PO DAILY [facility] Last Admin: 07/25/17 11:27 Dose: 40 mg Warfarin Sodium (Coumadin -) 5 mg PO DAILY@1800 [facility] Last Admin: 07/24/17 17:09 Dose: 5 mg - Objective Vital Signs: Vital Signs Temperature 98.8 F 07/25/17 09:02 Pulse Rate 97 H 07/25/17 09:02 Respiratory Rate 20 07/25/17 09:02 Blood Pressure 147/63 07/25/17 09:02 O2 Sat by Pulse Oximetry (%) 99 07/25/17 09:00 Constitutional: Yes: Calm Eyes: Yes: Conjunctiva Clear HENT: Yes: Atraumatic Cardiovascular: Yes: S1, S2 Respiratory: Yes: CTA Bilaterally Gastrointestinal: Yes: Soft Genitourinary: Yes: Incontinence Edema: Yes Edema: LLE: 2+, RLE: 2+ Neurological: Yes: Oriented Psychiatric: Yes: Oriented Labs: CBC, BMP 07/25/17 06:00 07/25/17 06:00 INR, PTT INR 2.41 (0.82-1.09) H 07/25/17 06:00 Problem List - Problems (1) Diabetes Code(s): E11.9 - TYPE 2 DIABETES MELLITUS WITHOUT COMPLICATIONS (2) CML (chronic myelocytic leukemia) Code(s): C92.10 - CHRONIC MYELOID LEUK, BCR/ABL-POSITIVE, NOT ACHIEVE REMIS (3) Anemia Code(s): D64.9 - ANEMIA, UNSPECIFIED Qualifiers: Anemia type: other cause Other causes of anemia: chronic disease, other Qualified Code(s): D63.8 - Anemia in other chronic diseases classified elsewhere (4) Cellulitis of leg, left Code(s): L03.116 - CELLULITIS OF LEFT LOWER LIMB (5) CHF (congestive heart failure) Code(s): I50.9 - HEART FAILURE, UNSPECIFIED Qualifiers: Congestive heart failure type: diastolic Congestive heart failure chronicity: chronic Qualified Code(s): I50.32 - Chronic diastolic (congestive ) heart failure (6) Acute renal insufficiency Code(s): N28.9 - DISORDER OF KIDNEY AND URETER, UNSPECIFIED (7) Hyperkalemia Code(s): E87.5 - HYPERKALEMIA (8) MARIA ELENA positive Code(s): R76.8 - OTHER SPECIFIED ABNORMAL IMMUNOLOGICAL FINDINGS IN SERUM (9) TURNER (acute kidney injury) Code(s): N17.9 - ACUTE KIDNEY FAILURE, UNSPECIFIED Assessment/Plan Current Medications Generic Name Dose Route Start Last Admin Trade Name Freq PRN Reason Stop Dose Admin Acetaminophen 650 mg 07/18/17 03:25 07/19/17 18:58 Tylenol - PO 650 mg Q6H PRN Administration PAIN Arformoterol Tartrate 1 amp 07/18/17 10:00 07/25/17 11:44 Brovana (Restricted To Pulmonology/Resp) - NEB Not Given BID [facility] Diphenhydramine HCl 25 mg 07/12/17 11:06 07/22/17 08:30 Benadryl - PO 25 mg Q6H PRN Administration FOR ITCHING Docusate Sodium 100 mg 07/25/17 11:30 07/25/17 11:57 Colace - PO 100 mg TID [facility] Administration Fluocinonide 1 applic 07/17/17 10:15 07/25/17 09:39 Lidex 0.05% Ointment - TP 1 applic BID [facility] Administration Hydroxyzine HCl 10 mg 07/13/17 14:15 07/25/17 11:27 Atarax - PO 10 mg Q6HPO [facility] Administration Insulin Aspart 1 vial 07/18/17 07:00 07/25/17 12:24 Novolog Vial Sliding Scale - SQ 4 unit ACHS [facility] Administration Protocol Lactic Acid 1 applic 07/16/17 14:45 07/25/17 09:38 Lac-Hydrin 12 TP Not Given DAILY [facility] Levothyroxine Sodium 25 mcg 07/18/17 07:00 07/25/17 06:07 Synthroid - PO 25 mcg AM [facility] Administration Lidocaine/Aluminum/Magnesium/Simeth 5 ml 07/22/17 13:00 07/25/17 11:58 Magic Mouthwash *Sjr Formula* - MM 5 ml Q6HPO [facility] Administration Magnesium Hydroxide 30 ml 07/25/17 14:02 Milk Of Magnesia - PO Q8H PRN INDIGESTION Magnesium Oxide 400 mg 07/21/17 15:00 07/25/17 09:37 Mag-Ox - PO 400 mg BID [facility] Administration Morphine Sulfate 15 mg 07/16/17 22:00 07/25/17 09:37 Ms Contin - PO 15 mg BID [facility] Administration Patient's Own 300 mg 07/19/17 19:31 07/25/17 06:08 Medication (Non- PO 300 mg Formulary) (Tasigna BID@0600,1999 [facility] Administration 150mg) Nystatin 1 applic 07/16/17 22:00 07/25/17 09:39 Nystop Powder - TP 1 applic BID [facility] Administration Oxycodone HCl 10 mg 07/18/17 03:25 07/25/17 11:57 Roxicodone - PO 10 mg Q4H PRN Administration Pantoprazole Sodium 40 mg 07/12/17 10:45 07/25/17 09:37 Protonix - PO 40 mg DAILY [facility] Administration Polyethylene Glycol 17 gm 07/25/17 11:30 07/25/17 11:58 Miralax (For Daily Use) - PO Not Given BID [facility] Torsemide 40 mg 07/25/17 11:00 07/25/17 11:27 Demadex - PO 40 mg DAILY [facility] Administration Warfarin Sodium 5 mg 07/21/17 18:00 07/24/17 17:09 Coumadin - PO 5 mg DAILY@1800 [facility] Administration Impression 1. TURNER 2. anemia 3. rash 4. CML 5. hypothyroidism 6. HTN 7. chol 8. CHF 9. COPD 10. hyperkalemia 11. sepsis 12. new onset a-fib 13. peripheral eosinophilia Plan - cont with torsemide 40 mg - repeat labs in am - renal function is stable - will need to monitor volume status closely after discharge - daily weights - will follow - likely turner from atn - will follow closely Dr Sanchez
[2017-07-25] MEDS: MAGNESIUM HYDROX 2400MG/30ML ORAL SUSPENSION 30 ML CUP PO PRN ×2 (14:27→20:37)
--- NOTE | 2017-07-25 16:49 | CONSULT ---
Consult - text type - Consultation Consultation Note: Podiatry Consultation: 66 year old DM F well known to me from wound healing center, admitted to hospital for rash all over her body. She has not been seen in wound care for past several weeks. S/p R heel debridement and bone biopsy for chronic osteomyelitis. She was subsequently treated with IV abx for osteomyelitis. She notes improvement in R heel ulcer, however notes pressure ulcer L heel deteriorated. She denies F/V/N/C/SOB/CP. Currently afebrile, VSS. 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 No tenderness to palpation. L foot: inferior heel pressure ulcer unstageable, no purulence, no fluctuance, no periwound erythema, no ascending cellulitis, no signs of active infection. No tenderness to palpation. WBC: 7.7 Imp: 66 year old DM F with bilateral heel pressure ulcers 1. Abx per Infectious Disease 2. Strongly recommend heel suspension offloading measures 3. Local wound care only, no acute surgical intervention at this time 4. Thanks for the consult. I will follow pt in wound healing center. Michaela Farmer DPM
[2017-07-25] MEDS: WARFARIN NA 5 MG TABLET (UD) PO SCH (17:45)
[2017-07-26] MEDS: hydrOXYzine HCL 10 MG TABLET PO SCH ×3 (00:02→11:07)
[2017-07-26] MEDS: MAG HYDROX/ALH/SMC/DPHA/LIDO 240 ML MOUTHWASH MM SCH ×3 (00:02→11:07)
[2017-07-26] MEDS: DOCUSATE SODIUM 100 MG CAPSULE (FP) PO SCH ×2 (06:09→13:58)
[2017-07-26] MEDS: LEVOTHYROXINE NA 25 MCG TABLET (FP) PO SCH (06:10)
[2017-07-26] MEDS: INSULIN SLIDING SCALE (NOVOLOG) 1 VIAL SQ SCH ×2 (06:10→11:05)
[2017-07-26] MEDS: TASIGNA 150 MG PO SCH (06:10)
[2017-07-26 07:09] LABS: BASOPHIL 0.5 % (0-2.0); MCH 29.2 pg (25.7-33.7); MEAN CELL VOLUME 88.5 fl (80-96); MEAN PLT VOLUME 7.9 fl (7.5-11.1); NEUTROPHILS 82.4 % (42.8-82.8); PLATELET COUNT 178 K/MM3 (134-434); RDW 19.9 % (11.6-15.6); WHITE BLOOD COUNT 9.7 K/mm3 (4.0-10.0)
[2017-07-26] MEDS ORDERED: PT OWN MED DRAWER 7, Y5N ONE ×3 (07:28→16:31)
[2017-07-26 07:29] LABS: INR 2.78 (0.82-1.09); PROTHROMBIN TIME (PATIENT) 31.4 SEC (9.98-11.88)
[2017-07-26 07:50] LABS: ANION GAP 5 (8-16); CO2 29 mmol/L (21-32); GLUCOSE,RANDOM 166 mg/dL (74-106); MAGNESIUM 1.9 mg/dL (1.8-2.4)
[2017-07-26 07:52] LABS: CALCIUM 7.7 mg/dL (8.5-10.1); PHOSPHOROUS 3.1 mg/dL (2.5-4.9)
[2017-07-26] MEDS: PANTOPRAZOLE 40 MG TABLET (FP) PO SCH (10:08)
[2017-07-26] MEDS: MAGNESIUM OXIDE 400 MG TABLET (FP) PO SCH (10:08)
[2017-07-26] MEDS: TORSEMIDE 20 MG TABLET (FP) PO SCH (10:08)
[2017-07-26] MEDS: NYSTATIN POWDER 100,000 UNITS/GM - 15 GM TOPICAL POWDER TP SCH (10:08)
[2017-07-26] MEDS: morphine SO4 SUSTAINED ACTING 15 MG TABLET.SA PO SCH (10:09)
[2017-07-26] MEDS: POLYETHYLENE GLYCOL 3350 119 GM BTL PO SCH (10:10)
[2017-07-26] MEDS: AMMONIUM LACTATE 12% LOTION 225 GM BOTTLE TP SCH (10:12)
[2017-07-26] MEDS: FLUOCINONIDE 0.05% TOP OINT (60 GM TUBE) TP SCH (10:12)
[2017-07-26] MEDS: ARFORMOTEROL TARTRATE 15 MCG/2 ML VIAL NEB SCH (10:35)
[2017-07-26] MEDS ORDERED: INSULIN (NOVOLOG) ASPART 100 UNITS/ML 10ML VIAL ONE (10:58)
--- NOTE | 2017-07-26 11:26 | PN ---
Progress Note (short form) - Note Progress Note: CC: afib S: no cp, palps, dizziness, sob. Current Medications Generic Name Dose Route Start Last Admin Trade Name Freq PRN Reason Stop Dose Admin Acetaminophen 650 mg 07/18/17 03:25 07/19/17 18:58 Tylenol - PO 650 mg Q6H PRN Administration PAIN Arformoterol Tartrate 1 amp 07/18/17 10:00 07/25/17 22:38 Brovana (Restricted To Pulmonology/Resp) - NEB 1 amp BID [facility] Administration Diltiazem HCl 120 mg 07/26/17 10:00 07/26/17 10:08 Cardizem Cd - PO 120 mg DAILY [facility] Administration Diphenhydramine HCl 25 mg 07/12/17 11:06 07/22/17 08:30 Benadryl - PO 25 mg Q6H PRN Administration FOR ITCHING Docusate Sodium 100 mg 07/25/17 11:30 07/26/17 06:09 Colace - PO 100 mg TID [facility] Administration Fluocinonide 1 applic 07/17/17 10:15 07/26/17 10:12 Lidex 0.05% Ointment - TP Not Given BID [facility] Hydroxyzine HCl 10 mg 07/13/17 14:15 07/26/17 11:07 Atarax - PO 10 mg Q6HPO [facility] Administration Insulin Aspart 1 vial 07/18/17 07:00 07/26/17 11:05 Novolog Vial Sliding Scale - SQ Not Given ACHS [facility] Protocol Lactic Acid 1 applic 07/16/17 14:45 07/26/17 10:12 Lac-Hydrin 12 TP Not Given DAILY [facility] Levothyroxine Sodium 25 mcg 07/18/17 07:00 07/26/17 06:10 Synthroid - PO 25 mcg AM [facility] Administration Lidocaine/Aluminum/Magnesium/Simeth 5 ml 07/22/17 13:00 07/26/17 11:07 Magic Mouthwash *Sjr Formula* - MM 5 ml Q6HPO [facility] Administration Magnesium Hydroxide 30 ml 07/25/17 14:02 07/25/17 20:37 Milk Of Magnesia - PO 30 ml Q8H PRN Administration INDIGESTION Magnesium Oxide 400 mg 07/21/17 15:00 07/26/17 10:08 Mag-Ox - PO 400 mg BID [facility] Administration Morphine Sulfate 15 mg 07/16/17 22:00 07/26/17 10:09 Ms Contin - PO 15 mg BID [facility] Administration Patient's Own 300 mg 07/19/17 19:31 07/26/17 06:10 Medication (Non- PO 300 mg Formulary) (Tasigna BID@0600,2000 [facility] Administration 150mg) Nystatin 1 applic 07/16/17 22:00 07/26/17 10:08 Nystop Powder - TP 1 applic BID [facility] Administration Oxycodone HCl 10 mg 07/18/17 03:25 07/25/17 11:57 Roxicodone - PO 10 mg Q4H PRN Administration Pantoprazole Sodium 40 mg 07/12/17 10:45 07/26/17 10:08 Protonix - PO 40 mg DAILY [facility] Administration Polyethylene Glycol 17 gm 07/25/17 11:30 07/26/17 10:10 Miralax (For Daily Use) - PO Not Given BID [facility] Torsemide 40 mg 07/25/17 11:00 07/26/17 10:08 Demadex - PO 40 mg DAILY [facility] Administration Warfarin Sodium 5 mg 07/21/17 18:00 07/25/17 17:45 Coumadin - PO 5 mg DAILY@1800 [facility] Administration Vital Signs Period Temp Pulse Resp BP Sys/Machado Pulse Ox Last 24 Hr 97.7 F-97.9 F 75-86 20-20 113-133/67-67 99 nad, no jvd rrr s1s2 no mrg cta b/l, nleff abd nd nt, obese. pos bs pos dp/pt + erythematous rash with skin sloughing trace -1+ dependent edema no c/c no diaphoresis no jaundice aaox3 CBC, BMP 07/26/17 06:00 07/26/17 06:00 echo 04/2017: tds. nl lv/rv. 1+ lae. mod mac mild-mod tr rvsp 45. A/P 66 yo f with hx htn, dm, hld, hypothyroid, obesity, possible copd, CML/anemia, p /w chills found to have uti/sepsis/asa. hospital course complicated by new afib with rvr. new afib - hgb is stable vs prior baseline. was 6's on admit, currently around 8. - this would provide little reserve if she develops bleeding on AC agent; - CHADS VASC = 3, with risk of stroke (approx 3%/year) higher than likelihood of bleeding in general. - d/w'd pt's outpt heme at [facility]--she is linked in closely there with regular f/u, will be followed and may end up needing BM biopsy and/or small bowel study for iron def anemia workup. heme rec's trial of AC with close monitoring of counts for now. - started on coumadin here, counts thus far stable at her recent outpt baseline - currently rate controlled/SR off av kia blockade - recent echo wnl ASA: - ? etiology - renal following, JANE held -cr improved now diastolic chf: - stable vol status - currently she is back on maintenance po torsemide 20 qd - having no sx's, though JVD is markedly elevated (near jaw) - lytes/renal fxn stable - 07/25 started on torsemide 40 mg qd to give her more of a buffer zone to avoid decompensated chf/sx's--monitor lytes and renal fxn trend. prior home dose was 20 mg, will likely need to be downtitrated in the near future. will need ongoing weight checks, follow up bmp as outpatient. venous ins/lymphedema: -chronic swelling --> as above anemia: -baseline dropped several months ago, + iron deficiency per outpt heme -recent FOC and EGD here unrevealing -has outpt heme f/u--considering BM biopsy and/or small bowel workup in future, sooner if drops counts with AC htn: -on dilt hld: - Given diabetes, consider statin therapy--defer to outpt setting in light of mult acute med issues
[2017-07-26 11:31] VITALS: BP 115/46; TEMP 97.9
--- NOTE | 2017-07-26 12:16 | PN ---
Progress Note, Physician History of Present Illness: Pt seen and examined at bedside. She is awake and alert. She denies shortness of breath. - Current Medication List Current Medications: Active Medications Acetaminophen (Tylenol -) 650 mg PO Q6H PRN PRN Reason: PAIN Last Admin: 07/19/17 18:58 Dose: 650 mg Arformoterol Tartrate (Brovana (Restricted To Pulmonology/Resp) -) 1 amp NEB BID [facility] Last Admin: 07/25/17 22:38 Dose: 1 amp Diltiazem HCl (Cardizem Cd -) 120 mg PO DAILY [facility] Last Admin: 07/26/17 10:08 Dose: 120 mg Diphenhydramine HCl (Benadryl -) 25 mg PO Q6H PRN PRN Reason: FOR ITCHING Last Admin: 07/22/17 08:30 Dose: 25 mg Docusate Sodium (Colace -) 100 mg PO TID [facility] Last Admin: 07/26/17 06:09 Dose: 100 mg Fluocinonide (Lidex 0.05% Ointment -) 1 applic TP BID [facility] Last Admin: 07/26/17 10:12 Dose: Not Given Hydroxyzine HCl (Atarax -) 10 mg PO Q6HPO [facility] Last Admin: 07/26/17 11:07 Dose: 10 mg Insulin Aspart (Novolog Vial Sliding Scale -) 1 vial SQ ACHS [facility] PRN Reason: Protocol Last Admin: 07/26/17 11:05 Dose: Not Given Lactic Acid (Lac-Hydrin 12) 1 applic TP DAILY [facility] Last Admin: 07/26/17 10:12 Dose: Not Given Levothyroxine Sodium (Synthroid -) 25 mcg PO AM [facility] Last Admin: 07/26/17 06:10 Dose: 25 mcg Lidocaine/Aluminum/Magnesium/Simeth (Magic Mouthwash *Sjr Formula* -) 5 ml MM Q6HPO [facility] Last Admin: 07/26/17 11:07 Dose: 5 ml Magnesium Hydroxide (Milk Of Magnesia -) 30 ml PO Q8H PRN PRN Reason: INDIGESTION Last Admin: 07/25/17 20:37 Dose: 30 ml Magnesium Oxide (Mag-Ox -) 400 mg PO BID [facility] Last Admin: 07/26/17 10:08 Dose: 400 mg Morphine Sulfate (Ms Contin -) 15 mg PO BID [facility] Last Admin: 07/26/17 10:09 Dose: 15 mg Patient's Own Medication (Non- Formulary) (Tasigna 150mg) 300 mg PO BID@0600, 2000 [facility] Last Admin: 07/26/17 06:10 Dose: 300 mg Nystatin (Nystop Powder -) 1 applic TP BID [facility] Last Admin: 07/26/17 10:08 Dose: 1 applic Oxycodone HCl (Roxicodone -) 10 mg PO Q4H PRN Last Admin: 07/25/17 11:57 Dose: 10 mg Pantoprazole Sodium (Protonix -) 40 mg PO DAILY [facility] Last Admin: 07/26/17 10:08 Dose: 40 mg Polyethylene Glycol (Miralax (For Daily Use) -) 17 gm PO BID [facility] Last Admin: 07/26/17 10:10 Dose: Not Given Torsemide (Demadex -) 40 mg PO DAILY [facility] Last Admin: 07/26/17 10:08 Dose: 40 mg Warfarin Sodium (Coumadin -) 5 mg PO DAILY@1800 [facility] Last Admin: 07/25/17 17:45 Dose: 5 mg - Objective Vital Signs: Vital Signs Temperature 97.9 F 07/26/17 09:00 Pulse Rate 91 H 07/26/17 09:00 Respiratory Rate 20 07/26/17 09:00 Blood Pressure 115/46 07/26/17 09:00 O2 Sat by Pulse Oximetry (%) 96 07/26/17 09:00 Constitutional: Yes: Calm Eyes: Yes: Conjunctiva Clear HENT: Yes: Atraumatic Neck: Yes: Supple Cardiovascular: Yes: S1, S2 Respiratory: Yes: CTA Bilaterally Gastrointestinal: Yes: Soft Genitourinary: Yes: WNL Musculoskeletal: Yes: WNL Edema: Yes Edema: LLE: 2+, RLE: 2+ Integumentary: Yes: Venous Stasis Changes Neurological: Yes: Oriented Psychiatric: Yes: Oriented Labs: CBC, BMP 07/26/17 06:00 07/26/17 06:00 INR, PTT INR 2.78 (0.82-1.09) H 07/26/17 06:00 Problem List - Problems (1) Diabetes Code(s): E11.9 - TYPE 2 DIABETES MELLITUS WITHOUT COMPLICATIONS (2) CML (chronic myelocytic leukemia) Code(s): C92.10 - CHRONIC MYELOID LEUK, BCR/ABL-POSITIVE, NOT ACHIEVE REMIS (3) Anemia Code(s): D64.9 - ANEMIA, UNSPECIFIED Qualifiers: Anemia type: other cause Other causes of anemia: chronic disease, other Qualified Code(s): D63.8 - Anemia in other chronic diseases classified elsewhere (4) Cellulitis of leg, left Code(s): L03.116 - CELLULITIS OF LEFT LOWER LIMB (5) CHF (congestive heart failure) Code(s): I50.9 - HEART FAILURE, UNSPECIFIED Qualifiers: Congestive heart failure type: diastolic Congestive heart failure chronicity: chronic Qualified Code(s): I50.32 - Chronic diastolic (congestive ) heart failure (6) Acute renal insufficiency Code(s): N28.9 - DISORDER OF KIDNEY AND URETER, UNSPECIFIED (7) Hyperkalemia Code(s): E87.5 - HYPERKALEMIA (8) MARIA ELENA positive Code(s): R76.8 - OTHER SPECIFIED ABNORMAL IMMUNOLOGICAL FINDINGS IN SERUM (9) TURNER (acute kidney injury) Code(s): N17.9 - ACUTE KIDNEY FAILURE, UNSPECIFIED Assessment/Plan Current Medications Generic Name Dose Route Start Last Admin Trade Name Freq PRN Reason Stop Dose Admin Acetaminophen 650 mg 07/18/17 03:25 07/19/17 18:58 Tylenol - PO 650 mg Q6H PRN Administration PAIN Arformoterol Tartrate 1 amp 07/18/17 10:00 07/25/17 22:38 Brovana (Restricted To Pulmonology/Resp) - NEB 1 amp BID [facility] Administration Diltiazem HCl 120 mg 07/26/17 10:00 07/26/17 10:08 Cardizem Cd - PO 120 mg DAILY [facility] Administration Diphenhydramine HCl 25 mg 07/12/17 11:06 07/22/17 08:30 Benadryl - PO 25 mg Q6H PRN Administration FOR ITCHING Docusate Sodium 100 mg 07/25/17 11:30 07/26/17 06:09 Colace - PO 100 mg TID [facility] Administration Fluocinonide 1 applic 07/17/17 10:15 07/26/17 10:12 Lidex 0.05% Ointment - TP Not Given BID [facility] Hydroxyzine HCl 10 mg 07/13/17 14:15 07/26/17 11:07 Atarax - PO 10 mg Q6HPO [facility] Administration Insulin Aspart 1 vial 07/18/17 07:00 07/26/17 11:05 Novolog Vial Sliding Scale - SQ Not Given ACHS [facility] Protocol Lactic Acid 1 applic 07/16/17 14:45 07/26/17 10:12 Lac-Hydrin 12 TP Not Given DAILY [facility] Levothyroxine Sodium 25 mcg 07/18/17 07:00 07/26/17 06:10 Synthroid - PO 25 mcg AM [facility] Administration Lidocaine/Aluminum/Magnesium/Simeth 5 ml 07/22/17 13:00 07/26/17 11:07 Magic Mouthwash *Sjr Formula* - MM 5 ml Q6HPO [facility] Administration Magnesium Hydroxide 30 ml 07/25/17 14:02 07/25/17 20:37 Milk Of Magnesia - PO 30 ml Q8H PRN Administration INDIGESTION Magnesium Oxide 400 mg 07/21/17 15:00 07/26/17 10:08 Mag-Ox - PO 400 mg BID [facility] Administration Morphine Sulfate 15 mg 07/16/17 22:00 07/26/17 10:09 Ms Contin - PO 15 mg BID [facility] Administration Patient's Own 300 mg 07/19/17 19:31 07/26/17 06:10 Medication (Non- PO 300 mg Formulary) (Tasigna BID@0600,1999 [facility] Administration 150mg) Nystatin 1 applic 07/16/17 22:00 07/26/17 10:08 Nystop Powder - TP 1 applic BID [facility] Administration Oxycodone HCl 10 mg 07/18/17 03:25 07/25/17 11:57 Roxicodone - PO 10 mg Q4H PRN Administration Pantoprazole Sodium 40 mg 07/12/17 10:45 07/26/17 10:08 Protonix - PO 40 mg DAILY [facility] Administration Polyethylene Glycol 17 gm 07/25/17 11:30 07/26/17 10:10 Miralax (For Daily Use) - PO Not Given BID [facility] Torsemide 40 mg 07/25/17 11:00 07/26/17 10:08 Demadex - PO 40 mg DAILY [facility] Administration Warfarin Sodium 5 mg 07/21/17 18:00 07/25/17 17:45 Coumadin - PO 5 mg DAILY@1800 [facility] Administration Impression 1. TURNER 2. anemia 3. rash 4. CML 5. hypothyroidism 6. HTN 7. chol 8. CHF 9. COPD 10. hyperkalemia 11. sepsis 12. new onset a-fib 13. peripheral eosinophilia Plan - renal function is stable - cont with torsemide - volume status is improving - will need to monitor renal function is NH - can see pt in office - will follow - likely turner from atn, pt refuse kidney biopsy while in hospital - will follow closely Dr Sanchez
--- NOTE | 2017-07-26 12:16 | DS ---
Physical Examination Vital Signs: Vital Signs Temperature 36.6 C 07/26/17 09:00 Pulse Rate 91 H 07/26/17 09:00 Respiratory Rate 20 07/26/17 09:00 Blood Pressure 115/46 07/26/17 09:00 O2 Sat by Pulse Oximetry (%) 96 07/26/17 09:00 Constitutional: Yes: No Distress, Calm, Obese Cardiovascular: Yes: Regular Rate and Rhythm. No: Gallop, Murmur, Rub Respiratory: Yes: Regular, CTA Bilaterally. No: Rales, Rhonchi, Wheezes Gastrointestinal: Yes: Normal Bowel Sounds, Soft. No: Distention, Tenderness Extremities: Yes: WNL Edema: No Labs: CBC, BMP 07/26/17 06:00 07/26/17 06:00 Discharge Summary Reason For Visit: SEPSIS Current Active Problems ASA (acute kidney injury) (Acute) Atrial fibrillation with RVR (Acute) Sepsis (Acute) UTI (urinary tract infection) (Acute) Hospital Course: (1) Diabetes Code(s): E11.9 - TYPE 2 DIABETES MELLITUS WITHOUT COMPLICATIONS (2) CML (chronic myelocytic leukemia) Code(s): C92.10 - CHRONIC MYELOID LEUK, BCR/ABL-POSITIVE, NOT ACHIEVE REMIS (3) Anemia Code(s): D64.9 - ANEMIA, UNSPECIFIED Qualifiers: Anemia type: other cause Other causes of anemia: chronic disease, other Qualified Code(s): D63.8 - Anemia in other chronic diseases classified elsewhere (4) Hypothyroid Code(s): E03.9 - HYPOTHYROIDISM, UNSPECIFIED (5) COPD (chronic obstructive pulmonary disease) Code(s): J44.9 - CHRONIC OBSTRUCTIVE PULMONARY DISEASE, UNSPECIFIED (6) CHF (congestive heart failure) Code(s): I50.9 - HEART FAILURE, UNSPECIFIED Qualifiers: Congestive heart failure type: diastolic Congestive heart failure chronicity: chronic Qualified Code(s): I50.32 - Chronic diastolic (congestive ) heart failure (7) Sepsis Code(s): A41.9 - SEPSIS, UNSPECIFIED ORGANISM Qualifiers: Sepsis type: Escherichia coli Qualified Code(s): A41.51 - Sepsis due to Escherichia coli [E. coli] (8) Drug induced rash with eosinophilia and systemic symptoms Code(s): L27.0 - GEN SKIN ERUPTION DUE TO DRUGS AND MEDS TAKEN INTERNALLY; D72.1 - EOSINOPHILIA; T50.905A - ADVERSE EFFECT OF UNSP DRUG/MEDS/BIOL SUBST, INIT (9) ASA (acute kidney injury) Code(s): N17.9 - ACUTE KIDNEY FAILURE, UNSPECIFIED (10) Atrial fibrillation with RVR Code(s): I48.91 - UNSPECIFIED ATRIAL FIBRILLATION (11) UTI (urinary tract infection) Code(s): N39.0 - URINARY TRACT INFECTION, SITE NOT SPECIFIED Qualifiers: Urinary tract infection type: acute cystitis Hematuria presence: without hematuria Qualified Code(s): N30.00 - Acute cystitis without hematuria Ms Hernandez is a pleasant 66 year old female who came in with sepsis from UTI which caused atrial fibrillation and rvr. She also had ARF. She was admitted and fully treated for her UTI, her sepsis resolved. She was seen by cardiology and her rate was controlled. After consideration and discussion with hematology , she was started on coumadin. She became supratherapeutic and it was held, currently she is on 5mg and is therapeutic. This may need to be adjusted as an outpatient. She was originally hydrated for her ARF, however began to become fluid overloaded. She was started back on low dose torsemide. She had an aspect of cardiorenal syndrome as her creatinine improved with torsemide. Her torsemide was increased to 40mg and she tolerated it well. She is safe for discharge to SNF 38 minutes spent in preparation of this discharge Condition: Good - Instructions Diet, Activity, Other Instructions: diabetic diet. Up with assistance, further activity per PT at SNF. Referrals: Carlito Longo MD [Primary Care Provider] - Tavon Sandhu MD [Staff Physician] - Zion Johnson MD [Staff Physician] - Bryant Sanchez MD [Staff Physician] - Disposition: HALF-WAY FACILITY - Home Medications Comprehensive Discharge Medication List: Ambulatory Orders Aa/Hydrolyzed Collagen, Whey [Lps 15-30 Liquid] 30 ml PO TID 06/20/17 Acetaminophen [Tylenol] 650 mg PO QID PRN 06/20/17 Albuterol 0.083% Nebulizer Pamella [Ventolin 0.083% Nebulizer Soln -] 1 neb NEB QID 06/20/17 Arformoterol Tartrate [Brovana] 15 mcg IH BID 06/20/17 Bisacodyl [Bisacodyl -] 10 mg PO DAILY PRN 06/20/17 Collagenase Clostridium Hist. [Santyl -] 1 applic TP DAILY 06/20/17 Docusate Sodium [Colace -] 300 mg PO HS 06/20/17 Ferrous Sulfate 325 mg PO BID 06/20/17 Gabapentin [Neurontin [DO NOT STOCK]] 600 mg PO TID 06/20/17 Insulin (Levemir) [Levemir Flexpen -] 10 units SQ HS 06/20/17 Insulin Lispro [Humalog] 0 unit SQ ASDIR 06/20/17 Levothyroxine [Synthroid -] 25 mcg PO DAILY 06/20/17 Magnesium Hydroxide [Milk of Magnesia -] 30 ml PO DAILY PRN 06/20/17 Metformin HCl 500 mg PO BID 06/20/17 Oxycodone HCl 10 mg PO Q4H 06/20/17 Polyethylene Glycol 3350 [Miralax 119 gm Btl -] 17 gm PO DAILY 06/20/17 Sennosides [Senna] 2 tab PO DAILY 06/20/17 Tasigna 300 mg PO BIDAC 06/22/17 Ammonium Lactate Lotion [Lac-Hydrin 12] 1 applic TP DAILY bottle 07/26/17 Diltiazem Cd [Cardizem Cd -] 120 mg PO DAILY cap.cd.24h 07/26/17 Diphenhydramine HCl [Benadryl Capsule -] 25 mg PO Q6H PRN capsule 07/26/17 Docusate Sodium [Colace -] 100 mg PO TID capsule 07/26/17 Fluocinonide 0.05% Oin [Lidex 0.05% Ointment -] 1 applic TP BID applic Hydroxyzine HCl [Atarax -] 10 mg PO Q6HPO tablet 07/26/17 Morphine *Sr* [Ms Contin -] 15 mg PO BID tablet.sa MDD 30mg 07/26/17 Nystatin Powder [Nystop Powder -] 1 applic TP BID applic 07/26/17 Torsemide [Demadex -] 40 mg PO DAILY tablet 07/26/17 Warfarin Na [Coumadin -] 5 mg PO DAILY@1800 tablet 07/26/17
[2017-07-26] MEDS: oxyCODONE HCL 5 MG TABLET PO PRN (15:28)
[2017-07-26 16:00] VITALS: PULSE 76
== END 2017-07-26 16:28 | DRG 871 ==
LOC: JER 14:53 → JERBED 19:55 → J8W 07-08 00:53 → J4W 07-08 22:05 → J4S 07-11 20:27 → J7W 07-15 18:40
PROVIDERS: ADMIT Internal Medicine; ATTEND Internal Medicine
PROC: 30233H1 Transfusion of Nonautologous Whole Blood into Peripheral Vein, Percutaneous Approach (ICD-10-PCS; principal; 2017-07-08)
DX: A41.9 Sepsis, unspecified organism (principal); N17.0 Acute kidney failure with tubular necrosis; I13.2 Hypertensive heart and chronic kidney disease with heart failure and with stage 5 chronic kidney disease, or end stage renal disease; C92.10 Chronic myeloid leukemia, BCR/ABL-positive, not having achieved remission; I50.32 Chronic diastolic (congestive) heart failure; N39.0 Urinary tract infection, site not specified; Z68.41 Body mass index [BMI] 40.0-44.9, adult; I13.0 Hypertensive heart and chronic kidney disease with heart failure and stage 1 through stage 4 chronic kidney disease, or unspecified chronic kidney disease; E11.22 Type 2 diabetes mellitus with diabetic chronic kidney disease; Z99.2 Dependence on renal dialysis; Z79.84 Long term (current) use of oral hypoglycemic drugs; E03.9 Hypothyroidism, unspecified; J44.9 Chronic obstructive pulmonary disease, unspecified; E78.5 Hyperlipidemia, unspecified; K76.0 Fatty (change of) liver, not elsewhere classified; Z87.891 Personal history of nicotine dependence; I48.91 Unspecified atrial fibrillation; F32.9 Major depressive disorder, single episode, unspecified; I27.20 Pulmonary hypertension, unspecified; E11.319 Type 2 diabetes mellitus with unspecified diabetic retinopathy without macular edema; D63.8 Anemia in other chronic diseases classified elsewhere; E87.5 Hyperkalemia; I87.8 Other specified disorders of veins; I95.9 Hypotension, unspecified; E66.9 Obesity, unspecified; L27.0 Generalized skin eruption due to drugs and medicaments taken internally; T50.995A Adverse effect of other drugs, medicaments and biological substances, initial encounter; K29.70 Gastritis, unspecified, without bleeding; E83.42 Hypomagnesemia; D72.1 Eosinophilia; H10.9 Unspecified conjunctivitis; K59.00 Constipation, unspecified; K12.30 Oral mucositis (ulcerative), unspecified; E11.65 Type 2 diabetes mellitus with hyperglycemia; N18.9 Chronic kidney disease, unspecified; L89.619 Pressure ulcer of right heel, unspecified stage; L89.620 Pressure ulcer of left heel, unstageable; I89.0 Lymphedema, not elsewhere classified
CPT/HCPCS: 36415; 36430; 71010-TC; 76775-TC; 80048; 80053; 81003; 81015; 82436; 82550; 82570; 82728; 82803; 83010; 83540; 83550; 83605; 83615; 83735; 83880; 84100; 84133; 84300; 84443; 84484; 85025; 85027; 85044; 85610; 85651; 85730; 86038; 86140; 86850; 86900; 86901; 86922; 87040; 87086; 87186; 87205; 88305-TC; 89190; 93005; 93010; 94640; 97162-GP; 99285-25; J1644; P9038; P9058

== ENCOUNTER 2017-12-23 10:18 | Inpatient (IN) | payer OTHER, MEDICARE ==
[2017-12-23] MEDS ORDERED: oxyCODONE HCL 5 MG TABLET PO ONE (10:42)
[2017-12-23] MEDS ORDERED: oxyCODONE HCL 5 MG TABLET ONE (10:43)
[2017-12-23 10:49] LABS: BASO % 1.2 % (0-2.0); EOS % 4.1 % (0-4.5); HEMATOCRIT 23.9 % (32.4-45.2); HEMOGLOBIN 7.9 GM/dL (10.7-15.3); LYMPH % 4.3 % (8-40); MCH 28.6 pg (25.7-33.7); MEAN CELL VOLUME 86.5 fl (80-96); MEAN PLT VOLUME 8.5 fl (7.5-11.1); NEUT % 84.4 % (42.8-82.8); PLATELET COUNT 227 K/MM3 (134-434); RBC 2.76 M/mm3 (3.60-5.2); RDW 16.5 % (11.6-15.6); WHITE BLOOD COUNT 9.4 K/mm3 (4.0-10.0)
--- NOTE | 2017-12-23 11:16 | PDOC ---
History of Present Illness - General Chief Complaint: Wound Stated Complaint: OPEN WOUND LOWER EXTREMETIES Time Seen by Provider: 12/23/17 10:49 History Source: Patient, Long Term Records Exam Limitations: No Limitations - History of Present Illness Initial Comments: 12/23/17 11:16 HPI: This obese 67 yr old female with c/o 10/10 pain to bilateral leg wounds. These wounds are chronic and causes inability to ambulate. She has been staying in alf due to ambulation issues and is primarily wheelchair bound. She is a diabetic and does come to the wound clinic every week. She is on zosyn currently. She missed two appts at the clinic recently. Chief Compliant:bilateral lower leg wounds. 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 Pt has not been in contact with people who have traveled out of the country, in contact with people who have been ill with fever, n, v, d. SH: smoking use: NONE illicit drug use: NONE alcohol use: NONE resides at [facility] PSH: choleychystectomy, c section, hernia repair Home med use noted on NOV Allergies:flagyl, metoprolol Immunizations: PCP: Dr. Longo PULMONARY PHYSICAL THERAPIST: LMP: post menopausal G P : 12/23/17 11:27 Past History - Past Medical History Allergies/Adverse Reactions: Allergies Allergy/AdvReac Type Severity Reaction Status Date / Time metronidazole [From Flagyl] Allergy Severe Rash Verified 12/23/17 10:25 metoprolol Allergy Intermediate Rash Verified 12/23/17 10:25 Home Medications: Ambulatory Orders Aa/Hydrolyzed Collagen, Whey [Lps Neutral Flavor Liquid] 30 ml PO DAILY Acetaminophen [Tylenol] 650 mg PO Q6H PRN 12/23/17 Albuterol 0.083% Nebulizer Pamella [Ventolin 0.083%] 1 neb NEB QID 12/23/17 Ammonium Lactate Lotion [Lac-Hydrin 12% Lotion -] 1 applic TP ASDIR 12/23/17 Ascorbic Acid [Vitamin C] 500 mg PO DAILY 12/23/17 Bisacodyl Suppository [Dulcolax Suppository -] 10 mg RC DAILY PRN 12/23/17 Clindamycin [Cleocin -] 300 mg PO Q8H 12/23/17 Dextran 70/Hypromellose [Artificial Tears Eye Drops] 1 drop OU QID 12/23/17 Diltiazem Cd [Cardizem Cd -] 120 mg PO DAILY 12/23/17 Diphenhydramine HCl 25 mg PO Q6H PRN 12/23/17 Docusate Sodium [Colace] 300 mg PO HS 12/23/17 Fluocinonide 0.05% Cream [Lidex 0.05% Cream -] 1 applic TP BID 12/23/17 Folic Acid 1 mg PO DAILY 12/23/17 Honey [Manuka Honey] 15 ml TP DAILY 12/23/17 Hydroxyzine HCl 10 mg PO Q6H 12/23/17 Insulin Lispro [Humalog] 0 unit SQ BID 12/23/17 Ipratropium 0.02% Nebulizer [Atrovent 0.02% Nebulizer -] 1 amp NEB TID 12/23/17 Lactobacillus Combo No.11 [Probiotic] 1 each PO TID 12/23/17 Levothyroxine [Synthroid -] 25 mcg PO DAILY 12/23/17 Magnesium 400 mg PO BID 12/23/17 Magnesium Hydroxide [Milk of Magnesia -] 30 ml PO DAILY PRN 12/23/17 Menthol/Camphor [Sarna Anti-Itch Lotion] 1 applic TP PRN PRN 12/23/17 Morphine *Immediate Release* [Msir -] 15 mg PO BID 12/23/17 Nilotinib HCl [Tasigna] 150 mg PO BID 12/23/17 Oxycodone HCl 10 mg PO Q4H PRN 12/23/17 Oxymetazoline HCl [Nasal Spicewood] 1 spray NS BID 12/23/17 Pantoprazole Sodium 40 mg PO DAILY 12/23/17 Piperacillin/Tazob 3.375 gm [Zosyn 3.375GM Ivpb (Pre-Docked)] 3.375 gm IVPB Q8H 12/23/17 Polyethylene Glycol 3350 [Miralax (For Daily Use) -] 17 gm PO DAILY 12/23/17 Pyridoxine HCl [Vitamin B6] 100 mg PO DAILY 12/23/17 Sennosides [Senna Lax] 2 tab PO DAILY 12/23/17 Torsemide 20 mg PO DAILY 12/23/17 Triamcinolone Acet 0.1% Cream [Aristocort] 0 gm TP BID 12/23/17 Vitamin B Complex 1 each PO DAILY 12/23/17 Warfarin Sodium 9.5 mg PO DAILY 12/23/17 Anemia: Yes Asthma: No Cancer: Yes (CML) Cardiac Disorders: Yes (A-FIB) CVA: No COPD: Yes CHF: No DVT: Yes Dementia: No Diabetes: Yes GI Disorders: No Disorders: Yes (uti) HTN: Yes Hypercholesterolemia: Yes Liver Disease: Yes (fatty liver) Psychiatric Problems: Yes (depression) Seizures: No Thyroid Disease: Yes - Surgical History Abdominal Surgery: Yes (hernia) Appendectomy: No Cardiac Surgery: No Cholecystectomy: Yes Lung Surgery: No Neurologic Surgery: No Orthopedic Surgery: No - Immunization History Immunization Up to Date: Yes - Suicide/Smoking/Psychosocial Hx Smoking Status: Yes Smoking History: Never smoked Have you smoked in the past 12 months: No Number of Cigarettes Smoked Daily: 0 If you are a former smoker, when did you quit?: 10/25/2013 Cigars Per Day: 0 'Breaking Loose' booklet given: 02/28/12 Hx Alcohol Use: No Drug/Substance Use Hx: No Substance Use Type: None Hx Substance Use Treatment: No Review of Systems - Review of Systems Able to Perform ROS?: Yes Comments:: 12/23/17 11:50 General statement: I have leg pain that is getting worse Hematology: Hx of CML and on chemo and on coumadin Skin: bilateral leg wounds and sloughing HEENT: Neg symptoms Respiratory: Neg SOB or difficulty in breathing Cardiac: Neg chest pain GI: Neg pain, n/v : Neg problems on voiding MS: Neg for joint pain/stiffness, no edema Neuro: Neg for LOC, weakness, Endocrine: Neg for excess thirst/hunger, cold/heat intolerance, excess sweating Allergies: + for allergies *Physical Exam - Vital Signs Last Vital Signs Temp Pulse Resp BP Pulse Ox 98.6 F 70 18 129/52 91 L 12/23/17 10:25 12/23/17 10:25 12/23/17 10:25 12/23/17 10:25 12/23/17 10:25 - Physical Exam Comments: 12/23/17 11:52 General Appearance: This obese 67 yr old female from a assisted V/S: hemodynamically stable, afebrile although feels flush Skin: WNL of pt's skin color, no signs of pallor, mottling, cyanosis Head:symmetrical Eyes: EOM's intact, PERRLA Ears: denies pain Nose: patent Throat: lips, teeth, gums, tongue, buccal mucos pink and moist Lungs: Chest symmetry equal. Cap refill <3 seconds. Lung sounds clear Cardiac: PMI at R 4MCL space, pos S1 and S2, regular rate. Abdomen: Soft, round, nontender : Not observed Muscularskeletal: + 3 pitting edema, bilateral lower leg edema with sloughing of skin, open left proximal tibia lateral side open wound approx 10 cm round red , eschar, odorous, drainage, wound with + pain on irrigation, left old chronic heal wound with dressing changes. +PMS Neuro: AAOx3, cognitively intact, speech clear and appropriate. ED Treatment Course - LABORATORY CBC & Chemistry Diagram: 12/23/17 10:39 12/23/17 10:39 - ADDITIONAL ORDERS Additional order review: 12/23/17 10:39 RBC 2.76 L MCV 86.5 MCHC 33.0 RDW 16.5 H D MPV 8.5 Neutrophils % 84.4 H Lymphocytes % 4.3 L D Monocytes % 6.0 Eosinophils % 4.1 D Basophils % 1.2 - Medications Given in the ED: ED Medications Discontinued Medications Generic Name Dose Route Start Last Admin Trade Name Conradoq PRN Reason Stop Dose Admin Oxycodone HCl 10 mg 12/23/17 10:42 12/23/17 10:44 Roxicodone - PO 12/23/17 10:43 10 mg ONCE ONE Administration Medical Decision Making - Medical Decision Making 12/23/17 11:55 A/P: 67-year-old diabetic obese female with bilateral leg pain more on the left than on the right. Noted to have a venous stasis diabetic wound with poor healing although she's been to the wound clinic and on Zosyn. She is on chemotherapy for CML. She was sent here by her primary for admission -labs -blood cx -urine -ekg -antibiotics -admission to Dr. Garcia. *DC/Admit/Observation/Transfer Diagnosis at time of Disposition: Cellulitis of leg, left - Discharge Dispostion Admit: Yes - Referrals - Patient Instructions - Post Discharge Activity
[2017-12-23 11:17] LABS: INR 2.17 (0.82-1.09); PROTHROMBIN TIME (PATIENT) 24.5 SEC (9.98-11.88)
[2017-12-23 11:20] LABS: ACTIVATED PTT 39.8 SECONDS (26.9-34.4); ALBUMIN 1.8 g/dl (3.4-5.0); ANION GAP 9 (8-16); BILIRUBIN,TOTAL 0.5 mg/dL (0.2-1.0); BLOOD UREA NITROGEN 53 mg/dL (7-18); CALCIUM 7.6 mg/dL (8.5-10.1); CHLORIDE 100 mmol/L (98-107); CO2 26 mmol/L (21-32); CREATININE 1.5 mg/dL (0.55-1.02); GLUCOSE,RANDOM 209 mg/dL (74-106); POTASSIUM 4.2 mmol/L (3.5-5.1); SGOT/AST 18 U/L (15-37); SGPT/ALT 18 U/L (12-78); SODIUM 135 mmol/L (136-145); TOT PROT 7.2 g/dl (6.4-8.2)
[2017-12-23 11:21] LABS: ALK PHOS 278 U/L (45-117)
[2017-12-23] MEDS ORDERED: PIPERACILLIN/TAZOB 3.375 GM 3.375 GM in DEXTROSE 5%-WATER - 50 ML IVPB ONE (12:02)
[2017-12-23] MEDS ORDERED: PIPERACILLIN/TAZOB 3.375 GM 3.375 GM/50 ML BAG IVPB ONE (12:14)
[2017-12-23] MEDS ORDERED: VANCOMYCIN 1 GRAM (PRE-DOCKED) 1,000 MG/250 ML BAG IVPB ONE (12:14)
[2017-12-23] MEDS ORDERED: BISACODYL 10 MG SUPP.RECT RC PRN (12:15)
[2017-12-23] MEDS ORDERED: MENTHOL/CAMPHOR 1 APPLIC BTL TP PRN (12:15)
[2017-12-23] MEDS ORDERED: MAGNESIUM HYDROX 2400MG/30ML ORAL SUSPENSION 30 ML CUP PO PRN (12:15)
--- NOTE | 2017-12-23 12:23 | HP ---
Admitting History and Physical - Primary Care Physician PCP: Carlito Longo - Admission Chief Complaint: Worsening pain in chronic wound Left LE History of Present Illness: Multiple medical Co-morbidities H/O CML, HTN, T2DM, Paroxysmal Afib, Pulmonary HTN, COPD, currently SNF resident for chronic wound care and ongoing IV abx, patient is transferred to Ed for evaluation of worsening Left LE pain and discharge fron chronic non healing wound with worsening , patient denies any fever, chills, nausea, vomiting at base line chronic constipation, no c/o diarrhea, last BM was in morning, patient F/U at wound care Ctr at present on IV Zosyn and Clindamycin. 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 Cardiovascular: Yes: HTN, Hyperlipdemia, Murmur, Pulmonary Hypertension Pulmonary: Yes: COPD Gastrointestinal: Yes: Constipation Hepatobiliary: Yes: Cholelithiasis, Cholecystitis, Choledocholithiasis, Other Renal/: Yes: Renal Calculi Heme/Onc: Yes: Anemia, Cancer Musculoskeletal: Yes: Chronic low back pain Endocrine: Yes: Diabetes Mellitus, Hypothyroidism - Past Surgical History Past Surgical History: Yes: Cholecystectomy, , Hernia Repair ( incisional and umbilical hernia repairs) - Smoking History Smoking history: Never smoked Have you smoked in the past 12 months: No Aproximately how many cigarettes per day: 0 If you are a former smoker, when did you quit?: 10/25/2013 - Alcohol/Substance Use Hx Alcohol Use: No History of Substance Use: reports: None - Social History ADL: Support Services 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 History of Recent Travel: No Home Medications - Allergies Allergies/Adverse Reactions: Allergies Allergy/AdvReac Type Severity Reaction Status Date / Time metronidazole [From Flagyl] Allergy Severe Rash Verified 12/23/17 10:25 metoprolol Allergy Intermediate Rash Verified 12/23/17 10:25 - Home Medications Home Medications: Ambulatory Orders Aa/Hydrolyzed Collagen, Whey [Lps Neutral Flavor Liquid] 30 ml PO DAILY Acetaminophen [Tylenol] 650 mg PO Q6H PRN 12/23/17 Albuterol 0.083% Nebulizer Pamella [Ventolin 0.083%] 1 neb NEB QID 12/23/17 Ammonium Lactate Lotion [Lac-Hydrin 12% Lotion -] 1 applic TP ASDIR 12/23/17 Ascorbic Acid [Vitamin C] 500 mg PO DAILY 12/23/17 Bisacodyl Suppository [Dulcolax Suppository -] 10 mg RC DAILY PRN 12/23/17 Clindamycin [Cleocin -] 300 mg PO Q8H 12/23/17 Dextran 70/Hypromellose [Artificial Tears Eye Drops] 1 drop OU QID 12/23/17 Diltiazem Cd [Cardizem Cd -] 120 mg PO DAILY 12/23/17 Diphenhydramine HCl 25 mg PO Q6H PRN 12/23/17 Docusate Sodium [Colace] 300 mg PO HS 12/23/17 Fluocinonide 0.05% Cream [Lidex 0.05% Cream -] 1 applic TP BID 12/23/17 Folic Acid 1 mg PO DAILY 12/23/17 Honey [Manuka Honey] 15 ml TP DAILY 12/23/17 Hydroxyzine HCl 10 mg PO Q6H 12/23/17 Insulin Lispro [Humalog] 0 unit SQ BID 12/23/17 Ipratropium 0.02% Nebulizer [Atrovent 0.02% Nebulizer -] 1 amp NEB TID 12/23/17 Lactobacillus Combo No.11 [Probiotic] 1 each PO TID 12/23/17 Levothyroxine [Synthroid -] 25 mcg PO DAILY 12/23/17 Magnesium 400 mg PO BID 12/23/17 Magnesium Hydroxide [Milk of Magnesia -] 30 ml PO DAILY PRN 12/23/17 Menthol/Camphor [Sarna Anti-Itch Lotion] 1 applic TP PRN PRN 12/23/17 Morphine *Immediate Release* [Msir -] 15 mg PO BID 12/23/17 Nilotinib HCl [Tasigna] 150 mg PO BID 12/23/17 Oxycodone HCl 10 mg PO Q4H PRN 12/23/17 Oxymetazoline HCl [Nasal [place]] 1 spray NS BID 12/23/17 Pantoprazole Sodium 40 mg PO DAILY 12/23/17 Piperacillin/Tazob 3.375 gm [Zosyn 3.375GM Ivpb (Pre-Docked)] 3.375 gm IVPB Q8H 12/23/17 Polyethylene Glycol 3350 [Miralax (For Daily Use) -] 17 gm PO DAILY 12/23/17 Pyridoxine HCl [Vitamin B6] 100 mg PO DAILY 12/23/17 Sennosides [Senna Lax] 2 tab PO DAILY 12/23/17 Torsemide 20 mg PO DAILY 12/23/17 Triamcinolone Acet 0.1% Cream [Aristocort] 0 gm TP BID 12/23/17 Vitamin B Complex 1 each PO DAILY 12/23/17 Warfarin Sodium 9.5 mg PO DAILY 12/23/17 Family Disease History - Family Disease History Family Disease History: CA: Father, Mother Review of Systems - Review of Systems Constitutional: denies: Chills, Fever, Lethargy Eyes: denies: Blurred Vision, Double Vision HENT: denies: Difficult Swallowing, Ear Discharge, Hearing Loss, Mouth Swelling Neck: denies: Decreased ROM, Pain on Movement Cardiovascular: reports: Edema. denies: Chest Pain, Palpitations, Shortness of Breath Respiratory: denies: Cough, Exercise Intolerance Gastrointestinal: reports: Constipation. denies: Abdominal Pain, Bloating, Diarrhea Musculoskeletal: reports: Back Pain. denies: Crepitus, Decreased ROM Integumentary: denies: Blister, Bruising Neurological: denies: Change in LOC, Change in Speech Endocrine: denies: Excessive Sweating, Flushing Hematology/Lymphatic: denies: Excessive Bleeding, Swollen Glands Pain Intensity: 6 Physical Examination Vital Signs: Vital Signs Temperature 98.6 F 12/23/17 10:25 Pulse Rate 70 12/23/17 10:25 Respiratory Rate 18 12/23/17 10:25 Blood Pressure 129/52 12/23/17 10:25 O2 Sat by Pulse Oximetry (%) 91 L 12/23/17 10:25 Elderly F sick looking not in distress HEENT: Mm moist, anemia, PERRLA, EOMI NECK: No JVd No Bruit, CHEST: Minimal basal Crepts CVS: S1S2 R no m/g/r ABD: Obese, non tender Soft EXT: B/L Chronic Venous stasis changes Left sided wound in dressing with exudative discharge LABOR CONTRACTOR: AOX3 non focal Labs: CBC, BMP 12/23/17 10:39 12/23/17 10:39 Problem List - Problems (1) Cellulitis of leg, left Assessment/Plan: Worsening wound infection Left leg with exudative discharge and pain, pain control on IV Zosyn recieved Vancomycine, wound culture, Xray no OM, F/U ID recommendations Code(s): L03.116 - CELLULITIS OF LEFT LOWER LIMB (2) A-fib Assessment/Plan: Rate controlled on ac no active issue cont home meds Code(s): I48.91 - UNSPECIFIED ATRIAL FIBRILLATION (3) HTN (hypertension) Assessment/Plan: Blood pressure is well controlled cont all home meds Code(s): I10 - ESSENTIAL (PRIMARY) HYPERTENSION (4) T2DM (type 2 diabetes mellitus) Assessment/Plan: Diabetic Diet cont correction dose insulin Code(s): E11.9 - TYPE 2 DIABETES MELLITUS WITHOUT COMPLICATIONS Qualifiers: Diabetes mellitus complication detail: with unspecified neuropathy (5) COPD (chronic obstructive pulmonary disease) Assessment/Plan: Cont Duo neb Code(s): J44.9 - CHRONIC OBSTRUCTIVE PULMONARY DISEASE, UNSPECIFIED (6) CML (chronic myelocytic leukemia) Assessment/Plan: Cont Home Chemotherapy Code(s): C92.10 - CHRONIC MYELOID LEUK, BCR/ABL-POSITIVE, NOT ACHIEVE REMIS (7) Chronic anemia Assessment/Plan: H/H satable Code(s): D64.9 - ANEMIA, UNSPECIFIED (8) Acute kidney injury superimposed on CKD Assessment/Plan: IV Hydration F/U BMP Code(s): N17.9 - ACUTE KIDNEY FAILURE, UNSPECIFIED; N18.9 - CHRONIC KIDNEY DISEASE, UNSPECIFIED
[2017-12-23] MEDS ORDERED: PIPERACILLIN/TAZOB 3.375 GM 3.375 GM in DEXTROSE 5%-WATER - 50 ML IVPB SCH (12:45)
[2017-12-23] MEDS: VANCOMYCIN 1,000 MG in DEXTROSE 5%-WATER - 250 ML IVPB SCH (12:56)
[2017-12-23 12:57] LABS: URINE APPEARANCE SLCLOUDY; URINE BILIRUBIN NEGATIVE (<2.0 mg/dL); URINE COLOR YELLOW; URINE GLUCOSE (UA) NEGATIVE (NEGATIVE); URINE KETONE NEGATIVE (NEGATIVE); URINE LEUK ESTERASE NEGATIVE (NEGATIVE); URINE NITRITE NEGATIVE (NEGATIVE); URINE PROTEIN NEGATIVE (NEGATIVE); URINE UROBILINOGEN NEGATIVE mg/dL (0.2-1.0)
--- NOTE | 2017-12-23 14:29 | CON.ID ---
Consult Consult Specialty:: infectious diseases Referred by:: Reason for Consultation:: cellultitis,collection of the left leg - History of Present Illness Chief Complaint: pain and swelling and cellulittis of the left leg History of Present Illness: 67 yr old female with c/o 10/10 pain to bilateral leg wounds. These wounds are chronic and causes inability to ambulate. She has been staying in jail due to ambulation issues and is primarily wheelchair bound. She is a diabetic and does come to the wound clinic every week. patient was spiking fevers and pain in the left leg and draiange was noted in the assisted patient had a increase in the wbc and was detoriating and was transferred here currently patient comes with dressing on the legs. 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 History of Recent Travel: No Home Medications - Allergies Allergies/Adverse Reactions: Allergies Allergy/AdvReac Type Severity Reaction Status Date / Time metronidazole [From Flagyl] Allergy Severe Rash Verified 12/23/17 10:25 metoprolol Allergy Intermediate Rash Verified 12/23/17 10:25 - Home Medications Home Medications: Ambulatory Orders Aa/Hydrolyzed Collagen, Whey [Lps Neutral Flavor Liquid] 30 ml PO DAILY Acetaminophen [Tylenol] 650 mg PO Q6H PRN 12/23/17 Albuterol 0.083% Nebulizer Pamella [Ventolin 0.083%] 1 neb NEB QID 12/23/17 Ammonium Lactate Lotion [Lac-Hydrin 12% Lotion -] 1 applic TP ASDIR 12/23/17 Ascorbic Acid [Vitamin C] 500 mg PO DAILY 12/23/17 Bisacodyl Suppository [Dulcolax Suppository -] 10 mg RC DAILY PRN 12/23/17 Clindamycin [Cleocin -] 300 mg PO Q8H 12/23/17 Dextran 70/Hypromellose [Artificial Tears Eye Drops] 1 drop OU QID 12/23/17 Diltiazem Cd [Cardizem Cd -] 120 mg PO DAILY 12/23/17 Diphenhydramine HCl 25 mg PO Q6H PRN 12/23/17 Docusate Sodium [Colace] 300 mg PO HS 12/23/17 Fluocinonide 0.05% Cream [Lidex 0.05% Cream -] 1 applic TP BID 12/23/17 Folic Acid 1 mg PO DAILY 12/23/17 Honey [Manuka Honey] 15 ml TP DAILY 12/23/17 Hydroxyzine HCl 10 mg PO Q6H 12/23/17 Insulin Lispro [Humalog] 0 unit SQ BID 12/23/17 Ipratropium 0.02% Nebulizer [Atrovent 0.02% Nebulizer -] 1 amp NEB TID 12/23/17 Lactobacillus Combo No.11 [Probiotic] 1 each PO TID 12/23/17 Levothyroxine [Synthroid -] 25 mcg PO DAILY 12/23/17 Magnesium 400 mg PO BID 12/23/17 Magnesium Hydroxide [Milk of Magnesia -] 30 ml PO DAILY PRN 12/23/17 Menthol/Camphor [Sarna Anti-Itch Lotion] 1 applic TP PRN PRN 12/23/17 Morphine *Immediate Release* [Msir -] 15 mg PO BID 12/23/17 Nilotinib HCl [Tasigna] 150 mg PO BID 12/23/17 Oxycodone HCl 10 mg PO Q4H PRN 12/23/17 Oxymetazoline HCl [Nasal [place]] 1 spray NS BID 12/23/17 Pantoprazole Sodium 40 mg PO DAILY 12/23/17 Piperacillin/Tazob 3.375 gm [Zosyn 3.375GM Ivpb (Pre-Docked)] 3.375 gm IVPB Q8H 12/23/17 Polyethylene Glycol 3350 [Miralax (For Daily Use) -] 17 gm PO DAILY 12/23/17 Pyridoxine HCl [Vitamin B6] 100 mg PO DAILY 12/23/17 Sennosides [Senna Lax] 2 tab PO DAILY 12/23/17 Torsemide 20 mg PO DAILY 12/23/17 Triamcinolone Acet 0.1% Cream [Aristocort] 0 gm TP BID 12/23/17 Vitamin B Complex 1 each PO DAILY 12/23/17 Warfarin Sodium 9.5 mg PO DAILY 12/23/17 Family Disease History - Family Disease History Family Disease History: CA: Father, Mother Review of Systems - Review of Systems Constitutional: reports: Fever Eyes: reports: No Symptoms HENT: reports: No Symptoms Neck: reports: No Symptoms Cardiovascular: reports: No Symptoms Respiratory: reports: No Symptoms Gastrointestinal: reports: No Symptoms Musculoskeletal: reports: Extremity Pain Integumentary: reports: Change in Color, Erythema, Other Neurological: reports: No Symptoms Endocrine: reports: No Symptoms Hematology/Lymphatic: reports: No Symptoms Psychiatric: reports: No Symptoms Physical Exam Vital Signs: Vital Signs Temperature 98.6 F 12/23/17 10:25 Pulse Rate 70 12/23/17 10:25 Respiratory Rate 18 12/23/17 10:25 Blood Pressure 129/52 12/23/17 10:25 O2 Sat by Pulse Oximetry (%) 91 L 12/23/17 10:25 Constitutional: Yes: Mild Distress, Obese Eyes: Yes: Conjunctiva Clear HENT: Yes: Atraumatic Neck: Yes: Supple, Trachea Midline Cardiovascular: Yes: Regular Rate and Rhythm Respiratory: Yes: Regular, CTA Bilaterally Gastrointestinal: Yes: Normal Bowel Sounds, Soft Musculoskeletal: Yes: Muscle Pain Extremities: Yes: Erythema, Other (swelling of the left leg and fluctuation noted on the left leg draiange noted) Integumentary: Yes: Other (bilateral leg wound left worse than the right with some draiange noted) Neurological: Yes: Alert, Oriented Psychiatric: Yes: Alert, Oriented Labs: CBC, BMP 12/23/17 10:39 12/23/17 10:39 Imaging - Results X-ray: Report Reviewed, Image Reviewed Assessment/Plan patient with multiple medical problems admitted for bilat cellultits obesity fever weakness bilateral cellulittis of the legs will continue zosyn as patient is increasing wound care wound cx rest as per the team
[2017-12-23] MEDS: PIPERACILLIN/TAZOB 3.375 GM 3.375 GM in DEXTROSE 5%-WATER - 50 ML IVPB SCH ×2 (15:59→18:11)
[2017-12-23] MEDS: oxyCODONE HCL 5 MG TABLET PO PRN (16:23)
[2017-12-23] MEDS: IPRATROPIUM BR 0.02% 0.5 MG/2.5 ML VIAL.NEB. NEB SCH ×2 (16:49→21:37)
[2017-12-23] MEDS: ALBUTEROL SO4 0.083% IH SOL 2.5 MG/3 ML VIAL.NEB. NEB SCH ×2 (16:49→20:58)
[2017-12-23 17:31] VITALS: BMI 35.0
[2017-12-23] MEDS ORDERED: WARFARIN NA 2 MG TABLET (UD) ONE (18:01)
[2017-12-23] MEDS ORDERED: DEXTROSE 5%-WATER - 50 ML IVPB ONE (18:02)
[2017-12-23] MEDS ORDERED: PIPERACILLIN/TAZOBACTAM 3.375 GM VIAL IVPB ONE (18:02)
[2017-12-23] MEDS ORDERED: WARFARIN NA 7.5 MG TABLET (FP) ONE (18:02)
[2017-12-23] MEDS: ARTIFICIAL TEARS (POLYVINYL ALCOHOL 1.4%) OPTH DROPS OU SCH ×2 (18:08→22:28)
[2017-12-23] MEDS: AMMONIUM LACTATE 12% LOTION 225 GM BOTTLE TP SCH (18:09)
[2017-12-23] MEDS: WARFARIN NA PO SCH (18:10)
[2017-12-23] MEDS: hydrOXYzine HCL 10 MG TABLET PO SCH ×2 (18:10→23:48)
--- NOTE | 2017-12-23 22:24 | EKG ---
Test Reason : Blood Pressure : / mmHG Vent. Rate : 064 BPM Atrial Rate : 064 BPM P-R Int : 000 ms QRS Dur : 090 ms QT Int : 446 ms P-R-T Axes : 000 013 045 degrees QTc Int : 460 ms NORMAL SINUS RHYTHM LOW VOLTAGE QRS CANNOT RULE OUT ANTERIOR INFARCT (CITED ON OR BEFORE 07-JUL-2017) ABNORMAL ECG WHEN COMPARED WITH ECG OF 09-JUL-2017 07:04, JUNCTIONAL RHYTHM HAS REPLACED ATRIAL FIBRILLATION VENT. RATE HAS DECREASED BY 76 BPM Confirmed by RAJAN MIRANDA, ZAINA ([id number]) on 12/23/2017 10:24:03 PM Referred By: Confirmed By:ZAINA TOLENTINO MD
[2017-12-23] MEDS: FLUOCINONIDE 0.05% CREAM (60 GM TUBE) TP SCH (22:29)
[2017-12-23] MEDS: OXYMETAZOLINE 0.05% NASAL SOLUTION 15 ML BOTTLE NS SCH (22:29)
[2017-12-23] MEDS: MAGNESIUM OXIDE 400 MG TABLET (FP) PO SCH (22:30)
[2017-12-23] MEDS: DOCUSATE SODIUM 100 MG CAPSULE (FP) PO SCH (22:30)
[2017-12-23] MEDS: morphine SULFATE IMMEDIATE RELEASE 30 MG TAB PO SCH (22:30)
[2017-12-23] MEDS: ACETAMINOPHEN 325 MG TABLET (FP) PO PRN (22:31)
[2017-12-24] MEDS ORDERED: PIPERACILLIN/TAZOBACTAM 3.375 GM VIAL IVPB ONE ×3 (01:53→17:01)
[2017-12-24] MEDS ORDERED: DEXTROSE 5%-WATER - 50 ML IVPB ONE ×3 (01:53→17:01)
[2017-12-24] MEDS: PIPERACILLIN/TAZOB 3.375 GM 3.375 GM in DEXTROSE 5%-WATER - 50 ML IVPB SCH ×3 (02:08→18:10)
[2017-12-24] MEDS: IPRATROPIUM BR 0.02% 0.5 MG/2.5 ML VIAL.NEB. NEB SCH (06:05)
[2017-12-24] MEDS: INSULIN SLIDING SCALE (NOVOLOG) 1 VIAL SQ SCH ×3 (06:13→16:34)
[2017-12-24] MEDS: hydrOXYzine HCL 10 MG TABLET PO SCH ×3 (06:14→18:06)
[2017-12-24] MEDS: LEVOTHYROXINE NA 25 MCG TABLET (FP) PO SCH (06:14)
[2017-12-24] MEDS ORDERED: INSULIN (NOVOLOG) ASPART 100 UNITS/ML 10ML VIAL ONE ×2 (06:32→11:04)
[2017-12-24] MEDS ORDERED: INSULIN (LEVEMIR) 100 UNITS/ML UNITS SQ ONE (06:32)
[2017-12-24] MEDS: ACETAMINOPHEN 325 MG TABLET (FP) PO PRN (06:36)
[2017-12-24] MEDS: oxyCODONE HCL 5 MG TABLET PO PRN ×3 (06:58→20:07)
[2017-12-24 07:02] LABS: INR 1.5 (0.82-1.09); PROTHROMBIN TIME (PATIENT) 16.9 SEC (9.98-11.88)
[2017-12-24 07:22] LABS: ALBUMIN 1.8 g/dl (3.4-5.0); ALK PHOS 240 U/L (45-117); ANION GAP 10 (8-16); BILIRUBIN,TOTAL 0.4 mg/dL (0.2-1.0); BLOOD UREA NITROGEN 55 mg/dL (7-18); CALCIUM 7.8 mg/dL (8.5-10.1); CHLORIDE 99 mmol/L (98-107); CO2 27 mmol/L (21-32); CREATININE 1.7 mg/dL (0.55-1.02); GLUCOSE,RANDOM 171 mg/dL (74-106); POTASSIUM 4.2 mmol/L (3.5-5.1); SGOT/AST 13 U/L (15-37); SGPT/ALT 14 U/L (12-78); SODIUM 136 mmol/L (136-145); TOT PROT 6.9 g/dl (6.4-8.2)
[2017-12-24] MEDS: ALBUTEROL SO4 0.083% IH SOL 2.5 MG/3 ML VIAL.NEB. NEB SCH (07:25)
[2017-12-24] MEDS ORDERED: PYRIDOXINE HCL (B-6) 100 MG TABLET PO SCH (10:00)
[2017-12-24] MEDS ORDERED: HONEY TP SCH (10:00)
[2017-12-24] MEDS ORDERED: PATIENT'S OWN MEDICATION (NON-FORMULARY) (Aa/Hydrolyzed Collagen, Whey [Lps Neutral Flavor PO SCH (10:00)
[2017-12-24] MEDS ORDERED: WARFARIN NA 10 MG TABLET (FP) PO SCH (10:00)
[2017-12-24] MEDS: FOLIC ACID 1 MG TABLET (FP) PO SCH (10:40)
[2017-12-24] MEDS: MAGNESIUM OXIDE 400 MG TABLET (FP) PO SCH ×2 (10:40→21:43)
[2017-12-24] MEDS: ASCORBIC ACID 500 MG TABLET (FP) PO SCH (10:40)
[2017-12-24] MEDS: AMINO ACIDS/PROTEIN HYDROLYS 30 ML LIQUID.PKT PO SCH (10:41)
[2017-12-24] MEDS: POLYETHYLENE GLYCOL 3350 119 GM BTL PO SCH ×2 (10:41→11:23)
[2017-12-24] MEDS: ARTIFICIAL TEARS (POLYVINYL ALCOHOL 1.4%) OPTH DROPS OU SCH ×4 (10:41→21:42)
[2017-12-24] MEDS: TORSEMIDE 20 MG TABLET (FP) PO SCH (10:42)
[2017-12-24] MEDS: VITAMIN B COMPLEX W/C COMBO TABLET (FP) PO SCH (10:42)
[2017-12-24] MEDS: PYRIDOXINE HCL (B-6) 50 MG TABLET (FP) PO SCH (10:42)
[2017-12-24] MEDS: morphine SULFATE IMMEDIATE RELEASE 30 MG TAB PO SCH ×2 (10:44→21:45)
[2017-12-24] MEDS: OXYMETAZOLINE 0.05% NASAL SOLUTION 15 ML BOTTLE NS SCH ×2 (10:53→21:43)
[2017-12-24] MEDS: SENNOSIDES 8.6MG TABLET (FP) PO SCH (10:54)
[2017-12-24] MEDS: PANTOPRAZOLE 40 MG TABLET (FP) PO SCH (11:16)
--- NOTE | 2017-12-24 11:20 | PN ---
Progress Note, Physician Chief Complaint: Still C/O Left Leg pain - Current Medication List Current Medications: Active Medications Acetaminophen (Tylenol -) 650 mg PO Q6H PRN PRN Reason: FEVER Last Admin: 12/23/17 22:31 Dose: 650 mg Albuterol/Ipratropium (Duoneb -) 1 amp NEB RQID [facility] Amino Acids (Prosource No Carb Liquid Pkt) 30 ml PO DAILY [facility] Last Admin: 12/24/17 10:41 Dose: 30 ml Artificial Tears (Artificial Tears) 1 drop OU QID [facility] Last Admin: 12/24/17 10:41 Dose: 1 drop Ascorbic Acid (Vitamin C -) 500 mg PO DAILY [facility] Last Admin: 12/24/17 10:40 Dose: 500 mg Bisacodyl (Dulcolax Suppository -) 10 mg RC DAILY PRN PRN Reason: CONSTIPATION Camphor/Menthol (Sarna Anti-Itch -) 1 applic TP PRN PRN PRN Reason: FOR ITCHING Diltiazem HCl (Cardizem Cd -) 120 mg PO DAILY [facility] Last Admin: 12/24/17 10:40 Dose: 120 mg Diphenhydramine HCl (Benadryl -) 25 mg PO Q6H PRN PRN Reason: FOR ITCHING Docusate Sodium (Colace -) 300 mg PO HS [facility] Last Admin: 12/23/17 22:30 Dose: 300 mg Fluocinonide (Lidex 0.05% Cream -) 1 applic TP BID [facility] Last Admin: 12/23/17 22:29 Dose: 1 applic Folic Acid (Folic Acid -) 1 mg PO DAILY [facility] Last Admin: 12/24/17 10:40 Dose: 1 mg Hydroxyzine HCl (Atarax -) 10 mg PO Q6HPO [facility] Last Admin: 12/24/17 06:14 Dose: 10 mg Vancomycin HCl 1,000 mg/ (Dextrose) 250 mls @ 200 mls/hr IVPB Q24H [facility] PRN Reason: Protocol Stop: 12/24/17 15:00 Last Admin: 12/23/17 12:56 Dose: 200 mls/hr Piperacillin Sod/Tazobactam (Sod 3.375 gm/ Dextrose) 50 mls @ 100 mls/hr IVPB Q8H-IV JOVITA PRN Reason: Protocol Last Admin: 12/24/17 02:08 Dose: 100 mls/hr Vancomycin HCl 1,000 mg/ (Dextrose) 250 mls @ 200 mls/hr IVPB Q24H JOV[facility] PRN Reason: Protocol Insulin Aspart (Novolog Vial Sliding Scale -) 1 vial SQ TIDAC JOVITA PRN Reason: Protocol Last Admin: 12/24/17 06:13 Dose: 2 units Lactic Acid (Lac-Hydrin 12) 1 applic TP ASDIR [facility] Last Admin: 12/23/17 18:09 Dose: Not Given Levothyroxine Sodium (Synthroid -) 25 mcg PO AM [facility] Last Admin: 12/24/17 06:14 Dose: 25 mcg Magnesium Hydroxide (Milk Of Magnesia -) 30 ml PO DAILY PRN PRN Reason: CONSTIPATION Magnesium Oxide (Mag-Ox -) 400 mg PO BID [facility] Last Admin: 12/24/17 10:40 Dose: 400 mg Morphine Sulfate (Msir -) 15 mg PO BID [facility] Last Admin: 12/24/17 10:44 Dose: 15 mg Multivitamins (Total B With C -) 1 each PO DAILY [facility] Last Admin: 12/24/17 10:42 Dose: 1 each Non-Formulary Medication (Nilotinib Hcl [Tasigna]) 150 mg PO BID [facility] Oxycodone HCl (Roxicodone -) 10 mg PO Q4H PRN PRN Reason: PAIN Last Admin: 12/24/17 06:58 Dose: 10 mg Oxymetazoline HCl (Afrin -) 1 spray NS BID [facility] Last Admin: 12/24/17 10:53 Dose: Not Given Pantoprazole Sodium (Protonix -) 40 mg PO DAILY [facility] Polyethylene Glycol (Miralax (For Daily Use) -) 17 gm PO DAILY [facility] Last Admin: 12/24/17 10:41 Dose: 17 gm Pyridoxine HCl (Vitamin B6 -) 100 mg PO DAILY [facility] Last Admin: 12/24/17 10:42 Dose: 100 mg Senna (Senna -) 2 tab PO DAILY [facility] Last Admin: 12/24/17 10:54 Dose: Not Given Torsemide (Demadex -) 20 mg PO DAILY [facility] Last Admin: 12/24/17 10:42 Dose: 20 mg Warfarin Sodium 7.5 mg/ (Warfarin Sodium 2 mg) 9.5 mg PO DAILY@1800 [facility] Last Admin: 12/23/17 18:10 Dose: 9.5 mg - Objective Vital Signs: Vital Signs Temperature 97.3 F L 12/24/17 10:00 Pulse Rate 64 12/24/17 10:00 Respiratory Rate 20 12/24/17 10:00 Blood Pressure 121/68 12/24/17 10:00 O2 Sat by Pulse Oximetry (%) 90 L 12/23/17 21:00 Elderly F sick looking not in distress HEENT: Mm moist, anemia, PERRLA, EOMI NECK: No JVd No Bruit, CHEST: Minimal basal Crepts CVS: S1S2 R no m/g/r ABD: Obese, non tender Soft EXT: B/L Chronic Venous stasis changes Left sided wound in dressing with exudative discharge [employer]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 Labs: CBC, BMP 12/23/17 10:39 12/24/17 06:35 INR, PTT INR 1.50 (0.82-1.09) H D 12/24/17 06:35 Problem List - Problems (1) Cellulitis of leg, left Assessment/Plan: Worsening wound infection Left leg with exudative discharge and pain, pain control on IV Zosyn recieved Vancomycine, wound culture, Xray no OM, F/U ID recommendations Code(s): L03.116 - CELLULITIS OF LEFT LOWER LIMB (2) A-fib Assessment/Plan: Rate controlled on ac no active issue cont home meds Code(s): I48.91 - UNSPECIFIED ATRIAL FIBRILLATION (3) HTN (hypertension) Assessment/Plan: Blood pressure is well controlled cont all home meds Code(s): I10 - ESSENTIAL (PRIMARY) HYPERTENSION (4) T2DM (type 2 diabetes mellitus) Assessment/Plan: Diabetic Diet cont correction dose insulin Code(s): E11.9 - TYPE 2 DIABETES MELLITUS WITHOUT COMPLICATIONS Qualifiers: Diabetes mellitus complication detail: with unspecified neuropathy (5) COPD (chronic obstructive pulmonary disease) Assessment/Plan: Cont Duo neb Code(s): J44.9 - CHRONIC OBSTRUCTIVE PULMONARY DISEASE, UNSPECIFIED (6) CML (chronic myelocytic leukemia) Assessment/Plan: Cont Home Chemotherapy Code(s): C92.10 - CHRONIC MYELOID LEUK, BCR/ABL-POSITIVE, NOT ACHIEVE REMIS (7) Chronic anemia Assessment/Plan: H/H satable Code(s): D64.9 - ANEMIA, UNSPECIFIED (8) Acute kidney injury superimposed on CKD Assessment/Plan: IV Hydration F/U BMP Code(s): N17.9 - ACUTE KIDNEY FAILURE, UNSPECIFIED; N18.9 - CHRONIC KIDNEY DISEASE, UNSPECIFIED
[2017-12-24] MEDS: ALBUTEROL SO4 2.5/IPRATROPIUM 0.5 INH SOL 3 ML VIAL.NEB. NEB SCH ×3 (11:29→20:50)
[2017-12-24] MEDS: VANCOMYCIN 1,000 MG in DEXTROSE 5%-WATER - 250 ML IVPB SCH (11:32)
--- NOTE | 2017-12-24 12:27 | PN ---
Progress Note, Physician History of Present Illness: doing well no new issues says she is feeling better legs still bothering her remaining afebrile - Current Medication List Current Medications: Active Medications Acetaminophen (Tylenol -) 650 mg PO Q6H PRN PRN Reason: FEVER Last Admin: 12/23/17 22:31 Dose: 650 mg Albuterol/Ipratropium (Duoneb -) 1 amp NEB RQID [facility] Last Admin: 12/24/17 11:29 Dose: 1 amp Amino Acids (Prosource No Carb Liquid Pkt) 30 ml PO DAILY [facility] Last Admin: 12/24/17 10:41 Dose: 30 ml Artificial Tears (Artificial Tears) 1 drop OU QID [facility] Last Admin: 12/24/17 10:41 Dose: 1 drop Ascorbic Acid (Vitamin C -) 500 mg PO DAILY [facility] Last Admin: 12/24/17 10:40 Dose: 500 mg Bisacodyl (Dulcolax Suppository -) 10 mg RC DAILY PRN PRN Reason: CONSTIPATION Camphor/Menthol (Sarna Anti-Itch -) 1 applic TP PRN PRN PRN Reason: FOR ITCHING Diltiazem HCl (Cardizem Cd -) 120 mg PO DAILY [facility] Last Admin: 12/24/17 10:40 Dose: 120 mg Diphenhydramine HCl (Benadryl -) 25 mg PO Q6H PRN PRN Reason: FOR ITCHING Docusate Sodium (Colace -) 300 mg PO HS [facility] Last Admin: 12/23/17 22:30 Dose: 300 mg Fluocinonide (Lidex 0.05% Cream -) 1 applic TP BID [facility] Last Admin: 12/23/17 22:29 Dose: 1 applic Folic Acid (Folic Acid -) 1 mg PO DAILY [facility] Last Admin: 12/24/17 10:40 Dose: 1 mg Hydroxyzine HCl (Atarax -) 10 mg PO Q6HPO [facility] Last Admin: 12/24/17 11:16 Dose: 10 mg Vancomycin HCl 1,000 mg/ (Dextrose) 250 mls @ 200 mls/hr IVPB Q24H [facility] PRN Reason: Protocol Stop: 12/24/17 15:00 Last Admin: 12/24/17 11:32 Dose: 200 mls/hr Piperacillin Sod/Tazobactam (Sod 3.375 gm/ Dextrose) 50 mls @ 100 mls/hr IVPB Q8H-IV [facility] PRN Reason: Protocol Last Admin: 12/24/17 11:16 Dose: 100 mls/hr Vancomycin HCl 1,000 mg/ (Dextrose) 250 mls @ 200 mls/hr IVPB Q24H [facility] PRN Reason: Protocol Sodium Chloride (Normal Saline -) 1,000 mls @ 75 mls/hr IV ASDIR [facility] Insulin Aspart (Novolog Vial Sliding Scale -) 1 vial SQ TIDAC [facility] PRN Reason: Protocol Last Admin: 12/24/17 11:16 Dose: 8 units Lactic Acid (Lac-Hydrin 12) 1 applic TP ASDIR [facility] Last Admin: 12/23/17 18:09 Dose: Not Given Levothyroxine Sodium (Synthroid -) 25 mcg PO AM [facility] Last Admin: 12/24/17 06:14 Dose: 25 mcg Magnesium Hydroxide (Milk Of Magnesia -) 30 ml PO DAILY PRN PRN Reason: CONSTIPATION Magnesium Oxide (Mag-Ox -) 400 mg PO BID [facility] Last Admin: 12/24/17 10:40 Dose: 400 mg Morphine Sulfate (Msir -) 15 mg PO BID [facility] Last Admin: 12/24/17 10:44 Dose: 15 mg Multivitamins (Total B With C -) 1 each PO DAILY [facility] Last Admin: 12/24/17 10:42 Dose: 1 each Non-Formulary Medication (Nilotinib Hcl [Tasigna]) 150 mg PO BID [facility] Oxycodone HCl (Roxicodone -) 10 mg PO Q4H PRN PRN Reason: PAIN Last Admin: 12/24/17 06:58 Dose: 10 mg Oxymetazoline HCl (Afrin -) 1 spray NS BID [facility] Last Admin: 12/24/17 10:53 Dose: Not Given Pantoprazole Sodium (Protonix -) 40 mg PO DAILY [facility] Last Admin: 12/24/17 11:16 Dose: 40 mg Polyethylene Glycol (Miralax (For Daily Use) -) 17 gm PO DAILY [facility] Last Admin: 12/24/17 11:23 Dose: Not Given Pyridoxine HCl (Vitamin B6 -) 100 mg PO DAILY [facility] Last Admin: 12/24/17 10:42 Dose: 100 mg Senna (Senna -) 2 tab PO DAILY [facility] Last Admin: 12/24/17 10:54 Dose: Not Given Torsemide (Demadex -) 20 mg PO DAILY [facility] Last Admin: 12/24/17 10:42 Dose: 20 mg Warfarin Sodium 7.5 mg/ (Warfarin Sodium 2 mg) 9.5 mg PO DAILY@1800 [facility] Last Admin: 12/23/17 18:10 Dose: 9.5 mg - Objective Vital Signs: Vital Signs Temperature 97.3 F L 12/24/17 10:00 Pulse Rate 64 12/24/17 10:00 Respiratory Rate 20 12/24/17 10:00 Blood Pressure 121/68 12/24/17 10:00 O2 Sat by Pulse Oximetry (%) 90 L 12/23/17 21:00 Constitutional: Yes: Calm, Mild Distress Neck: Yes: Supple Cardiovascular: Yes: Regular Rate and Rhythm Respiratory: Yes: Regular, CTA Bilaterally Gastrointestinal: Yes: Normal Bowel Sounds, Soft Musculoskeletal: Yes: WNL Extremities: Yes: Other Wound/Incision: Yes: Dressing Dry and Intact Neurological: Yes: Alert, Oriented Psychiatric: Yes: Alert, Oriented Labs: CBC, BMP 12/23/17 10:39 12/24/17 06:35 INR, PTT INR 1.50 (0.82-1.09) H D 12/24/17 06:35 Assessment/Plan Problem List - Problems (1) Ulcer of left lower extremity Code(s): L97.929 - NON-PRS CHRONIC ULC UNSP PRT OF L LOW LEG W UNSP SEVERITY Qualifiers: Non-pressure ulcer stage: limited to breakdown of skin Qualified Code(s): L97.921 - Non-pressure chronic ulcer of unspecified part of left lower leg limited to breakdown of skin (2) Cellulitis of leg, left Code(s): L03.116 - CELLULITIS OF LEFT LOWER LIMB (3) A-fib Code(s): I48.91 - UNSPECIFIED ATRIAL FIBRILLATION Qualifiers: Atrial fibrillation type: chronic Qualified Code(s): I48.2 - Chronic atrial fibrillation (4) COPD (chronic obstructive pulmonary disease) Code(s): J44.9 - CHRONIC OBSTRUCTIVE PULMONARY DISEASE, UNSPECIFIED (5) HTN (hypertension) Code(s): I10 - ESSENTIAL (PRIMARY) HYPERTENSION (6) T2DM (type 2 diabetes mellitus) Code(s): E11.9 - TYPE 2 DIABETES MELLITUS WITHOUT COMPLICATIONS Qualifiers: Diabetes mellitus complication detail: with unspecified neuropathy (7) Acute kidney injury superimposed on CKD Code(s): N17.9 - ACUTE KIDNEY FAILURE, UNSPECIFIED; N18.9 - CHRONIC KIDNEY DISEASE, UNSPECIFIED (8) Chronic anemia Code(s): D64.9 - ANEMIA, UNSPECIFIED (9) CHF (congestive heart failure) Code(s): I50.9 - HEART FAILURE, UNSPECIFIED Qualifiers: Qualified Code(s): I50.32 - Chronic diastolic (congestive) heart failure (10) COPD (chronic obstructive pulmonary disease) Code(s): J44.9 - CHRONIC OBSTRUCTIVE PULMONARY DISEASE, UNSPECIFIED (11) CML (chronic myelocytic leukemia) Code(s): C92.10 - CHRONIC MYELOID LEUK, BCR/ABL-POSITIVE, NOT ACHIEVE REMIS plan continue abx wound care rest as per the team wound care to look at the wound
[2017-12-24] MEDS: AMMONIUM LACTATE 12% LOTION 225 GM BOTTLE TP SCH (13:12)
[2017-12-24] MEDS: FLUOCINONIDE 0.05% CREAM (60 GM TUBE) TP SCH ×2 (13:15→21:47)
[2017-12-24] MEDS: SODIUM CHLORIDE 1,000 ML IV SCH (13:16)
[2017-12-24] MEDS ORDERED: WARFARIN NA 2 MG TABLET (UD) ONE (17:01)
[2017-12-24] MEDS ORDERED: WARFARIN NA 7.5 MG TABLET (FP) ONE (17:01)
[2017-12-24] MEDS: diphenhydrAMINE HCL 25 MG CAPSULE (FP) PO PRN (18:06)
[2017-12-24] MEDS: WARFARIN NA PO SCH (18:06)
[2017-12-24] MEDS ORDERED: AMOX TR/POT CLAV 500MG/125MG TABLETS (FP) PO ONE ×2 (18:15→20:00)
[2017-12-24] MEDS: DOCUSATE SODIUM 100 MG CAPSULE (FP) PO SCH (21:43)
[2017-12-24] MEDS: NILOTINIB HCL 300 MG PO SCH (21:44)
[2017-12-25] MEDS: hydrOXYzine HCL 10 MG TABLET PO SCH ×5 (00:10→23:43)
[2017-12-25] MEDS: PIPERACILLIN/TAZOB 3.375 GM 3.375 GM in DEXTROSE 5%-WATER - 50 ML IVPB SCH ×2 (02:20→12:55)
[2017-12-25] MEDS: oxyCODONE HCL 5 MG TABLET PO PRN ×5 (04:08→21:30)
[2017-12-25] MEDS: LEVOTHYROXINE NA 25 MCG TABLET (FP) PO SCH (06:14)
[2017-12-25] MEDS: INSULIN SLIDING SCALE (NOVOLOG) 1 VIAL SQ SCH ×3 (06:15→17:07)
[2017-12-25 07:06] LABS: BASO % 0.1 % (0-2.0); EOS % 4.9 % (0-4.5); HEMATOCRIT 22.1 % (32.4-45.2); HEMOGLOBIN 7.4 GM/dL (10.7-15.3); LYMPH % 6.2 % (8-40); MCH 28.7 pg (25.7-33.7); MCHC 33.6 g/dl (32.0-36.0); MEAN CELL VOLUME 85.3 fl (80-96); MEAN PLT VOLUME 8.6 fl (7.5-11.1); MONO % 5.3 % (3.8-10.2); NEUT % 83.5 % (42.8-82.8); PLATELET COUNT 236 K/MM3 (134-434); RBC 2.59 M/mm3 (3.60-5.2); RDW 16.3 % (11.6-15.6)
[2017-12-25] MEDS: ALBUTEROL SO4 2.5/IPRATROPIUM 0.5 INH SOL 3 ML VIAL.NEB. NEB SCH ×4 (07:25→20:30)
[2017-12-25 07:30] LABS: ANION GAP 6 (8-16); BLOOD UREA NITROGEN 55 mg/dL (7-18); CALCIUM 7.3 mg/dL (8.5-10.1); CHLORIDE 100 mmol/L (98-107); CO2 27 mmol/L (21-32); CREATININE 1.5 mg/dL (0.55-1.02); GLUCOSE,RANDOM 146 mg/dL (74-106); POTASSIUM 4.3 mmol/L (3.5-5.1); SODIUM 133 mmol/L (136-145)
[2017-12-25] MEDS ORDERED: PT OWN MED DRAWER 7, Y5N ONE ×5 (10:23→21:24)
[2017-12-25] MEDS: OXYMETAZOLINE 0.05% NASAL SOLUTION 15 ML BOTTLE NS SCH ×2 (10:27→21:32)
[2017-12-25] MEDS: TORSEMIDE 20 MG TABLET (FP) PO SCH (10:28)
[2017-12-25] MEDS: ARTIFICIAL TEARS (POLYVINYL ALCOHOL 1.4%) OPTH DROPS OU SCH ×5 (10:28→21:28)
[2017-12-25] MEDS: VITAMIN B COMPLEX W/C COMBO TABLET (FP) PO SCH (10:28)
[2017-12-25] MEDS: PYRIDOXINE HCL (B-6) 50 MG TABLET (FP) PO SCH (10:28)
[2017-12-25] MEDS: AMINO ACIDS/PROTEIN HYDROLYS 30 ML LIQUID.PKT PO SCH (10:29)
[2017-12-25] MEDS: PANTOPRAZOLE 40 MG TABLET (FP) PO SCH (10:29)
[2017-12-25] MEDS: MAGNESIUM OXIDE 400 MG TABLET (FP) PO SCH ×2 (10:29→21:31)
[2017-12-25] MEDS: morphine SULFATE IMMEDIATE RELEASE 30 MG TAB PO SCH ×2 (10:29→21:31)
[2017-12-25] MEDS: SENNOSIDES 8.6MG TABLET (FP) PO SCH (10:29)
[2017-12-25] MEDS: ASCORBIC ACID 500 MG TABLET (FP) PO SCH (10:30)
[2017-12-25] MEDS: NILOTINIB HCL 300 MG PO SCH ×2 (10:36→21:32)
[2017-12-25] MEDS: FOLIC ACID 1 MG TABLET (FP) PO SCH (10:45)
[2017-12-25] MEDS: FLUOCINONIDE 0.05% CREAM (60 GM TUBE) TP SCH ×2 (10:45→22:19)
[2017-12-25] MEDS ORDERED: INSULIN (NOVOLOG) ASPART 100 UNITS/ML 10ML VIAL ONE (11:51)
--- NOTE | 2017-12-25 11:51 | PN ---
Progress Note, Physician History of Present Illness: stable dressing removed wound looked at surrounding edema decreased slough present in the leg rt leg looks good patient remaining afebrile patient has lost the iv line - Current Medication List Current Medications: Active Medications Acetaminophen (Tylenol -) 650 mg PO Q6H PRN PRN Reason: FEVER Last Admin: 12/23/17 22:31 Dose: 650 mg Albuterol/Ipratropium (Duoneb -) 1 amp NEB RQID [facility] Last Admin: 12/25/17 07:25 Dose: Not Given Amino Acids (Prosource No Carb Liquid Pkt) 30 ml PO DAILY [facility] Last Admin: 12/25/17 10:29 Dose: 30 ml Artificial Tears (Artificial Tears) 1 drop OU QID [facility] Last Admin: 12/25/17 10:28 Dose: 1 drop Ascorbic Acid (Vitamin C -) 500 mg PO DAILY [facility] Last Admin: 12/25/17 10:30 Dose: 500 mg Bisacodyl (Dulcolax Suppository -) 10 mg RC DAILY PRN PRN Reason: CONSTIPATION Camphor/Menthol (Sarna Anti-Itch -) 1 applic TP PRN PRN PRN Reason: FOR ITCHING Diltiazem HCl (Cardizem Cd -) 120 mg PO DAILY [facility] Last Admin: 12/25/17 10:30 Dose: 120 mg Diphenhydramine HCl (Benadryl -) 25 mg PO Q6H PRN PRN Reason: FOR ITCHING Last Admin: 12/24/17 18:06 Dose: 25 mg Docusate Sodium (Colace -) 300 mg PO HS [facility] Last Admin: 12/24/17 21:43 Dose: 300 mg Fluocinonide (Lidex 0.05% Cream -) 1 applic TP BID [facility] Last Admin: 12/25/17 10:45 Dose: 1 applic Folic Acid (Folic Acid -) 1 mg PO DAILY [facility] Last Admin: 12/25/17 10:45 Dose: 1 mg Hydroxyzine HCl (Atarax -) 10 mg PO Q6HPO [facility] Last Admin: 12/25/17 06:15 Dose: 10 mg Piperacillin Sod/Tazobactam (Sod 3.375 gm/ Dextrose) 50 mls @ 100 mls/hr IVPB Q8H-IV [facility] PRN Reason: Protocol Last Admin: 12/25/17 02:20 Dose: Not Given Vancomycin HCl 1,000 mg/ (Dextrose) 250 mls @ 200 mls/hr IVPB Q24H [facility] PRN Reason: Protocol Sodium Chloride (Normal Saline -) 1,000 mls @ 75 mls/hr IV ASDIR [facility] Last Admin: 12/24/17 13:16 Dose: 75 mls/hr Insulin Aspart (Novolog Vial Sliding Scale -) 1 vial SQ TIDAC [facility] PRN Reason: Protocol Last Admin: 12/25/17 06:15 Dose: 2 units Lactic Acid (Lac-Hydrin 12) 1 applic TP ASDIR [facility] Last Admin: 12/24/17 13:12 Dose: 1 applic Levothyroxine Sodium (Synthroid -) 25 mcg PO AM [facility] Last Admin: 12/25/17 06:14 Dose: 25 mcg Magnesium Hydroxide (Milk Of Magnesia -) 30 ml PO DAILY PRN PRN Reason: CONSTIPATION Magnesium Oxide (Mag-Ox -) 400 mg PO BID [facility] Last Admin: 12/25/17 10:29 Dose: 400 mg Morphine Sulfate (Msir -) 15 mg PO BID [facility] Last Admin: 12/25/17 10:29 Dose: 15 mg Multivitamins (Total B With C -) 1 each PO DAILY [facility] Last Admin: 12/25/17 10:28 Dose: 1 each Non-Formulary Medication (Nilotinib Hcl [Tasigna]) 300 mg PO BID [facility] Last Admin: 12/25/17 10:36 Dose: 300 mg Oxycodone HCl (Roxicodone -) 10 mg PO Q4H PRN PRN Reason: PAIN Last Admin: 12/25/17 08:23 Dose: 10 mg Oxymetazoline HCl (Afrin -) 1 spray NS BID [facility] Last Admin: 12/25/17 10:27 Dose: 1 spray Pantoprazole Sodium (Protonix -) 40 mg PO DAILY [facility] Last Admin: 12/25/17 10:29 Dose: 40 mg Polyethylene Glycol (Miralax (For Daily Use) -) 17 gm PO DAILY [facility] Last Admin: 12/24/17 11:23 Dose: Not Given Pyridoxine HCl (Vitamin B6 -) 100 mg PO DAILY [facility] Last Admin: 12/25/17 10:28 Dose: 100 mg Senna (Senna -) 2 tab PO DAILY [facility] Last Admin: 12/25/17 10:29 Dose: 2 tab Torsemide (Demadex -) 20 mg PO DAILY [facility] Last Admin: 12/25/17 10:28 Dose: 20 mg Warfarin Sodium 7.5 mg/ (Warfarin Sodium 2 mg) 9.5 mg PO DAILY@1800 [facility] Last Admin: 12/24/17 18:06 Dose: 9.5 mg - Objective Vital Signs: Vital Signs Temperature 98.8 F 12/25/17 06:00 Pulse Rate 73 12/25/17 06:00 Respiratory Rate 16 12/25/17 06:00 Blood Pressure 120/51 12/25/17 06:00 O2 Sat by Pulse Oximetry (%) 93 L 12/24/17 21:00 Constitutional: Yes: No Distress, Calm, Obese Cardiovascular: Yes: Regular Rate and Rhythm Respiratory: Yes: Regular, CTA Bilaterally Gastrointestinal: Yes: Normal Bowel Sounds, Soft Musculoskeletal: Yes: Other Extremities: Yes: Erythema (left) Integumentary: Yes: Erythema (resolving around the wound) Wound/Incision: Yes: Dressing Removed (to look at the wound slough present in the wound), Draining Neurological: Yes: Alert, Oriented Psychiatric: Yes: Alert, Oriented Labs: CBC, BMP 12/25/17 05:50 12/25/17 05:50 INR, PTT INR 1.50 (0.82-1.09) H D 12/24/17 06:35 Assessment/Plan Problem List - Problems (1) Ulcer of left lower extremity Code(s): L97.929 - NON-PRS CHRONIC ULC UNSP PRT OF L LOW LEG W UNSP SEVERITY Qualifiers: Non-pressure ulcer stage: limited to breakdown of skin Qualified Code(s): L97.921 - Non-pressure chronic ulcer of unspecified part of left lower leg limited to breakdown of skin (2) Cellulitis of leg, left Code(s): L03.116 - CELLULITIS OF LEFT LOWER LIMB (3) A-fib Code(s): I48.91 - UNSPECIFIED ATRIAL FIBRILLATION Qualifiers: Atrial fibrillation type: chronic Qualified Code(s): I48.2 - Chronic atrial fibrillation (4) COPD (chronic obstructive pulmonary disease) Code(s): J44.9 - CHRONIC OBSTRUCTIVE PULMONARY DISEASE, UNSPECIFIED (5) HTN (hypertension) Code(s): I10 - ESSENTIAL (PRIMARY) HYPERTENSION (6) T2DM (type 2 diabetes mellitus) Code(s): E11.9 - TYPE 2 DIABETES MELLITUS WITHOUT COMPLICATIONS Qualifiers: Diabetes mellitus complication detail: with unspecified neuropathy (7) Acute kidney injury superimposed on CKD Code(s): N17.9 - ACUTE KIDNEY FAILURE, UNSPECIFIED; N18.9 - CHRONIC KIDNEY DISEASE, UNSPECIFIED (8) Chronic anemia Code(s): D64.9 - ANEMIA, UNSPECIFIED (9) CHF (congestive heart failure) Code(s): I50.9 - HEART FAILURE, UNSPECIFIED Qualifiers: Qualified Code(s): I50.32 - Chronic diastolic (congestive) heart failure (10) COPD (chronic obstructive pulmonary disease) Code(s): J44.9 - CHRONIC OBSTRUCTIVE PULMONARY DISEASE, UNSPECIFIED (11) CML (chronic myelocytic leukemia) Code(s): C92.10 - CHRONIC MYELOID LEUK, BCR/ABL-POSITIVE, NOT ACHIEVE REMIS plan continue abx wound care rest as per the team awaiting for wound care
[2017-12-25] MEDS ORDERED: VANCOMYCIN 1,000 MG in DEXTROSE 5%-WATER - 250 ML IVPB SCH (12:00)
--- NOTE | 2017-12-25 12:13 | PN ---
Progress Note, Physician Chief Complaint: Ms Hernandez says her leg is having pain today but it is better. No cp, sob, n/v. - Current Medication List Current Medications: Active Medications Acetaminophen (Tylenol -) 650 mg PO Q6H PRN PRN Reason: FEVER Last Admin: 12/23/17 22:31 Dose: 650 mg Albuterol/Ipratropium (Duoneb -) 1 amp NEB RQID [facility] Last Admin: 12/25/17 07:25 Dose: Not Given Amino Acids (Prosource No Carb Liquid Pkt) 30 ml PO DAILY [facility] Last Admin: 12/25/17 10:29 Dose: 30 ml Artificial Tears (Artificial Tears) 1 drop OU QID [facility] Last Admin: 12/25/17 10:28 Dose: 1 drop Ascorbic Acid (Vitamin C -) 500 mg PO DAILY [facility] Last Admin: 12/25/17 10:30 Dose: 500 mg Bisacodyl (Dulcolax Suppository -) 10 mg RC DAILY PRN PRN Reason: CONSTIPATION Camphor/Menthol (Sarna Anti-Itch -) 1 applic TP PRN PRN PRN Reason: FOR ITCHING Clindamycin HCl (Cleocin -) 300 mg PO Q6HPO [facility] Diltiazem HCl (Cardizem Cd -) 120 mg PO DAILY [facility] Last Admin: 12/25/17 10:30 Dose: 120 mg Diphenhydramine HCl (Benadryl -) 25 mg PO Q6H PRN PRN Reason: FOR ITCHING Last Admin: 12/24/17 18:06 Dose: 25 mg Docusate Sodium (Colace -) 300 mg PO HS [facility] Last Admin: 12/24/17 21:43 Dose: 300 mg Fluocinonide (Lidex 0.05% Cream -) 1 applic TP BID [facility] Last Admin: 12/25/17 10:45 Dose: 1 applic Folic Acid (Folic Acid -) 1 mg PO DAILY [facility] Last Admin: 12/25/17 10:45 Dose: 1 mg Hydroxyzine HCl (Atarax -) 10 mg PO Q6HPO [facility] Last Admin: 12/25/17 06:15 Dose: 10 mg Insulin Aspart (Novolog Vial Sliding Scale -) 1 vial SQ TIDAC [facility] PRN Reason: Protocol Last Admin: 12/25/17 06:15 Dose: 2 units Lactic Acid (Lac-Hydrin 12) 1 applic TP ASDIR [facility] Last Admin: 12/24/17 13:12 Dose: 1 applic Levothyroxine Sodium (Synthroid -) 25 mcg PO AM [facility] Last Admin: 12/25/17 06:14 Dose: 25 mcg Magnesium Hydroxide (Milk Of Magnesia -) 30 ml PO DAILY PRN PRN Reason: CONSTIPATION Magnesium Oxide (Mag-Ox -) 400 mg PO BID [facility] Last Admin: 12/25/17 10:29 Dose: 400 mg Morphine Sulfate (Msir -) 15 mg PO BID [facility] Last Admin: 12/25/17 10:29 Dose: 15 mg Multivitamins (Total B With C -) 1 each PO DAILY [facility] Last Admin: 12/25/17 10:28 Dose: 1 each Non-Formulary Medication (Nilotinib Hcl [Tasigna]) 300 mg PO BID [facility] Last Admin: 12/25/17 10:36 Dose: 300 mg Oxycodone HCl (Roxicodone -) 10 mg PO Q4H PRN PRN Reason: PAIN Last Admin: 12/25/17 08:23 Dose: 10 mg Oxymetazoline HCl (Afrin -) 1 spray NS BID [facility] Last Admin: 12/25/17 10:27 Dose: 1 spray Pantoprazole Sodium (Protonix -) 40 mg PO DAILY [facility] Last Admin: 12/25/17 10:29 Dose: 40 mg Polyethylene Glycol (Miralax (For Daily Use) -) 17 gm PO DAILY [facility] Last Admin: 12/24/17 11:23 Dose: Not Given Pyridoxine HCl (Vitamin B6 -) 100 mg PO DAILY [facility] Last Admin: 12/25/17 10:28 Dose: 100 mg Senna (Senna -) 2 tab PO DAILY [facility] Last Admin: 12/25/17 10:29 Dose: 2 tab Torsemide (Demadex -) 20 mg PO DAILY [facility] Last Admin: 12/25/17 10:28 Dose: 20 mg Warfarin Sodium 7.5 mg/ (Warfarin Sodium 2 mg) 9.5 mg PO DAILY@1800 [facility] Last Admin: 12/24/17 18:06 Dose: 9.5 mg - Objective Vital Signs: Vital Signs Temperature 37.1 C 12/25/17 06:00 Pulse Rate 73 12/25/17 06:00 Respiratory Rate 16 12/25/17 06:00 Blood Pressure 120/51 12/25/17 06:00 O2 Sat by Pulse Oximetry (%) 93 L 12/24/17 21:00 Constitutional: Yes: No Distress, Calm, Obese Cardiovascular: Yes: Regular Rate and Rhythm. No: Gallop, Murmur, Rub Respiratory: Yes: Regular, CTA Bilaterally. No: Rales, Rhonchi, Wheezes Gastrointestinal: Yes: Normal Bowel Sounds, Soft. No: Distention, Tenderness Extremities: Yes: Other (LLE ulceration) Edema: Yes Edema: LLE: Trace, RLE: Trace Labs: CBC, BMP 12/25/17 05:50 12/25/17 05:50 INR, PTT INR 1.50 (0.82-1.09) H D 12/24/17 06:35 Problem List - Problems (1) Ulcer of left lower extremity Assessment/Plan: -case d/w Dr Pena -consult Dr Baker for wound care -harleensyn changed to clindamycin -monitor for improvement Code(s): L97.929 - NON-PRS CHRONIC ULC UNSP PRT OF L LOW LEG W UNSP SEVERITY Qualifiers: Non-pressure ulcer stage: limited to breakdown of skin Qualified Code(s): L97.921 - Non-pressure chronic ulcer of unspecified part of left lower leg limited to breakdown of skin (2) Cellulitis of leg, left Assessment/Plan: -case d/w Dr Pena -taty changed to clindamycin -monitor, if needs further IV antibiotics may need a PICC or central line Code(s): L03.116 - CELLULITIS OF LEFT LOWER LIMB (3) A-fib Assessment/Plan: -rate controlled -continue coumadin -continue diltiazem -may need to increase coumadin but will monitor INR as may increase because of antibiotics Code(s): I48.91 - UNSPECIFIED ATRIAL FIBRILLATION Qualifiers: Atrial fibrillation type: chronic Qualified Code(s): I48.2 - Chronic atrial fibrillation (4) COPD (chronic obstructive pulmonary disease) Assessment/Plan: -not in exacerbation -continue duonebs Code(s): J44.9 - CHRONIC OBSTRUCTIVE PULMONARY DISEASE, UNSPECIFIED (5) HTN (hypertension) Assessment/Plan: -controlled -continue current regimen Code(s): I10 - ESSENTIAL (PRIMARY) HYPERTENSION (6) T2DM (type 2 diabetes mellitus) Assessment/Plan: -on humalog SSI at [facility] -HgbA1c is 6.9 -glucose running [phone] here -because of wound, will attempt tighter control in the hospital -start levemir 10 units qhs and monitor -continue diabetic diet and SSI Code(s): E11.9 - TYPE 2 DIABETES MELLITUS WITHOUT COMPLICATIONS Qualifiers: Diabetes mellitus complication detail: with unspecified neuropathy (7) Acute kidney injury superimposed on CKD Assessment/Plan: -monitor off of IVF -will continue torsemide, may need to hold it if creatinine increases Code(s): N17.9 - ACUTE KIDNEY FAILURE, UNSPECIFIED; N18.9 - CHRONIC KIDNEY DISEASE, UNSPECIFIED (8) Chronic anemia Assessment/Plan: -stable -monitor Code(s): D64.9 - ANEMIA, UNSPECIFIED (9) CHF (congestive heart failure) Assessment/Plan: -not in exacerbation -continue torsemide Code(s): I50.9 - HEART FAILURE, UNSPECIFIED Qualifiers: Qualified Code(s): I50.32 - Chronic diastolic (congestive) heart failure (10) COPD (chronic obstructive pulmonary disease) Assessment/Plan: -continue duonebs Code(s): J44.9 - CHRONIC OBSTRUCTIVE PULMONARY DISEASE, UNSPECIFIED (11) CML (chronic myelocytic leukemia) Assessment/Plan: -continue tasigna Code(s): C92.10 - CHRONIC MYELOID LEUK, BCR/ABL-POSITIVE, NOT ACHIEVE REMIS
[2017-12-25] MEDS: AMMONIUM LACTATE 12% LOTION 225 GM BOTTLE TP SCH (12:16)
[2017-12-25] MEDS: POLYETHYLENE GLYCOL 3350 119 GM BTL PO SCH (12:49)
[2017-12-25] MEDS: SODIUM CHLORIDE 1,000 ML IV SCH (12:55)
[2017-12-25] MEDS ORDERED: WARFARIN NA 7.5 MG TABLET (FP) ONE (17:16)
[2017-12-25] MEDS ORDERED: WARFARIN NA 2 MG TABLET (UD) ONE (17:16)
[2017-12-25] MEDS: WARFARIN NA PO SCH (17:34)
[2017-12-25] MEDS: CLINDAMYCIN HCL 150 MG CAPSULE (FP) PO SCH ×2 (17:34→23:43)
[2017-12-25] MEDS: DOCUSATE SODIUM 100 MG CAPSULE (FP) PO SCH (21:30)
[2017-12-25] MEDS: diphenhydrAMINE HCL 25 MG CAPSULE (FP) PO PRN (21:31)
[2017-12-25] MEDS: INSULIN (LEVEMIR) 100 UNITS/ML UNITS SQ SCH (22:15)
[2017-12-26] MEDS: oxyCODONE HCL 5 MG TABLET PO PRN ×3 (03:05→19:41)
[2017-12-26] MEDS ORDERED: INSULIN (NOVOLOG) ASPART 100 UNITS/ML 10ML VIAL ONE ×4 (06:43→18:02)
[2017-12-26] MEDS: LEVOTHYROXINE NA 25 MCG TABLET (FP) PO SCH (06:44)
[2017-12-26] MEDS: CLINDAMYCIN HCL 150 MG CAPSULE (FP) PO SCH ×4 (06:44→23:35)
[2017-12-26] MEDS: hydrOXYzine HCL 10 MG TABLET PO SCH ×4 (06:44→23:35)
[2017-12-26] MEDS: INSULIN SLIDING SCALE (NOVOLOG) 1 VIAL SQ SCH ×3 (06:47→17:54)
[2017-12-26] MEDS ORDERED: PT OWN MED DRAWER 7, Y5N ONE ×4 (06:59→22:34)
[2017-12-26] MEDS: ALBUTEROL SO4 2.5/IPRATROPIUM 0.5 INH SOL 3 ML VIAL.NEB. NEB SCH ×4 (07:20→19:42)
[2017-12-26 08:01] LABS: BASO % 0.2 % (0-2.0); EOS % 4.7 % (0-4.5); HEMATOCRIT 23.6 % (32.4-45.2); HEMOGLOBIN 7.8 GM/dL (10.7-15.3); LYMPH % 7.8 % (8-40); MCH 28.4 pg (25.7-33.7); MCHC 33.1 g/dl (32.0-36.0); MEAN CELL VOLUME 85.9 fl (80-96); MEAN PLT VOLUME 8.2 fl (7.5-11.1); MONO % 5.9 % (3.8-10.2); NEUT % 81.4 % (42.8-82.8); PLATELET COUNT 251 K/MM3 (134-434); RBC 2.74 M/mm3 (3.60-5.2); RDW 16.3 % (11.6-15.6); WHITE BLOOD COUNT 8.6 K/mm3 (4.0-10.0)
[2017-12-26 08:11] LABS: CHLORIDE 101 mmol/L (98-107); POTASSIUM 4.6 mmol/L (3.5-5.1); SODIUM 134 mmol/L (136-145)
[2017-12-26 08:21] LABS: ANION GAP 7 (8-16); BLOOD UREA NITROGEN 54 mg/dL (7-18); CALCIUM 7.8 mg/dL (8.5-10.1); CO2 26 mmol/L (21-32); CREATININE 1.4 mg/dL (0.55-1.02); GLUCOSE,RANDOM 146 mg/dL (74-106); MAGNESIUM 2.7 mg/dL (1.8-2.4); PHOSPHOROUS 4.5 mg/dL (2.5-4.9)
[2017-12-26 08:28] LABS: INR 2.04 (0.82-1.09); PROTHROMBIN TIME (PATIENT) 23.1 SEC (9.7-13.0)
[2017-12-26] MEDS: morphine SULFATE IMMEDIATE RELEASE 30 MG TAB PO SCH ×2 (09:28→22:00)
[2017-12-26] MEDS: ASCORBIC ACID 500 MG TABLET (FP) PO SCH (09:28)
[2017-12-26] MEDS: AMINO ACIDS/PROTEIN HYDROLYS 30 ML LIQUID.PKT PO SCH (09:28)
[2017-12-26] MEDS: SENNOSIDES 8.6MG TABLET (FP) PO SCH (09:33)
[2017-12-26] MEDS: VITAMIN B COMPLEX W/C COMBO TABLET (FP) PO SCH (09:33)
[2017-12-26] MEDS: OXYMETAZOLINE 0.05% NASAL SOLUTION 15 ML BOTTLE NS SCH ×2 (09:33→22:00)
[2017-12-26] MEDS: FOLIC ACID 1 MG TABLET (FP) PO SCH (09:33)
[2017-12-26] MEDS: PYRIDOXINE HCL (B-6) 50 MG TABLET (FP) PO SCH (09:33)
[2017-12-26] MEDS: MAGNESIUM OXIDE 400 MG TABLET (FP) PO SCH ×2 (09:33→22:01)
[2017-12-26] MEDS: PANTOPRAZOLE 40 MG TABLET (FP) PO SCH (09:33)
[2017-12-26] MEDS: TORSEMIDE 20 MG TABLET (FP) PO SCH (09:33)
[2017-12-26] MEDS: NILOTINIB HCL 300 MG PO SCH ×2 (09:37→22:02)
[2017-12-26] MEDS: ARTIFICIAL TEARS (POLYVINYL ALCOHOL 1.4%) OPTH DROPS OU SCH ×4 (09:42→22:03)
[2017-12-26] MEDS: FLUOCINONIDE 0.05% CREAM (60 GM TUBE) TP SCH ×2 (09:43→22:01)
[2017-12-26] MEDS: POLYETHYLENE GLYCOL 3350 119 GM BTL PO SCH (11:40)
--- NOTE | 2017-12-26 11:53 | PN ---
Progress Note, Physician Chief Complaint: Ms Hernandez says she is feeling healthier today, says she is tired from not sleeping well but otherwise is without complaint. No cp, sob, n/v. - Current Medication List Current Medications: Active Medications Acetaminophen (Tylenol -) 650 mg PO Q6H PRN PRN Reason: FEVER Last Admin: 12/23/17 22:31 Dose: 650 mg Albuterol/Ipratropium (Duoneb -) 1 amp NEB RQID [facility] Last Admin: 12/26/17 11:10 Dose: Not Given Amino Acids (Prosource No Carb Liquid Pkt) 30 ml PO DAILY [facility] Last Admin: 12/26/17 09:28 Dose: 30 ml Artificial Tears (Artificial Tears) 1 drop OU QID [facility] Last Admin: 12/26/17 09:42 Dose: 1 drop Ascorbic Acid (Vitamin C -) 500 mg PO DAILY [facility] Last Admin: 12/26/17 09:28 Dose: 500 mg Bisacodyl (Dulcolax Suppository -) 10 mg RC DAILY PRN PRN Reason: CONSTIPATION Camphor/Menthol (Sarna Anti-Itch -) 1 applic TP PRN PRN PRN Reason: FOR ITCHING Clindamycin HCl (Cleocin -) 300 mg PO Q6HPO [facility] Last Admin: 12/26/17 06:44 Dose: 300 mg Diltiazem HCl (Cardizem Cd -) 120 mg PO DAILY [facility] Last Admin: 12/26/17 09:33 Dose: 120 mg Diphenhydramine HCl (Benadryl -) 25 mg PO Q6H PRN PRN Reason: FOR ITCHING Last Admin: 12/25/17 21:31 Dose: 25 mg Docusate Sodium (Colace -) 300 mg PO HS [facility] Last Admin: 12/25/17 21:30 Dose: 300 mg Fluocinonide (Lidex 0.05% Cream -) 1 applic TP BID [facility] Last Admin: 12/26/17 09:43 Dose: 1 applic Folic Acid (Folic Acid -) 1 mg PO DAILY [facility] Last Admin: 12/26/17 09:33 Dose: 1 mg Hydroxyzine HCl (Atarax -) 10 mg PO Q6HPO [facility] Last Admin: 12/26/17 06:44 Dose: 10 mg Insulin Aspart (Novolog Vial Sliding Scale -) 1 vial SQ TIDAC [facility] PRN Reason: Protocol Last Admin: 12/26/17 06:47 Dose: 2 units Insulin Detemir (Levemir Vial) 10 units SQ HS [facility] Last Admin: 12/25/17 22:15 Dose: 10 units Lactic Acid (Lac-Hydrin 12) 1 applic TP ASDIR [facility] Last Admin: 12/25/17 12:16 Dose: 1 applic Levothyroxine Sodium (Synthroid -) 25 mcg PO AM [facility] Last Admin: 12/26/17 06:44 Dose: 25 mcg Magnesium Hydroxide (Milk Of Magnesia -) 30 ml PO DAILY PRN PRN Reason: CONSTIPATION Magnesium Oxide (Mag-Ox -) 400 mg PO BID [facility] Last Admin: 12/26/17 09:33 Dose: 400 mg Morphine Sulfate (Msir -) 15 mg PO BID [facility] Last Admin: 12/26/17 09:28 Dose: 15 mg Multivitamins (Total B With C -) 1 each PO DAILY [facility] Last Admin: 12/26/17 09:33 Dose: 1 each Non-Formulary Medication (Nilotinib Hcl [Tasigna]) 300 mg PO BID [facility] Last Admin: 12/26/17 09:37 Dose: 300 mg Oxycodone HCl (Roxicodone -) 10 mg PO Q4H PRN PRN Reason: PAIN Last Admin: 12/26/17 03:05 Dose: 10 mg Oxymetazoline HCl (Afrin -) 1 spray NS BID [facility] Last Admin: 12/26/17 09:33 Dose: 1 spray Pantoprazole Sodium (Protonix -) 40 mg PO DAILY [facility] Last Admin: 12/26/17 09:33 Dose: 40 mg Polyethylene Glycol (Miralax (For Daily Use) -) 17 gm PO DAILY [facility] Last Admin: 12/26/17 11:40 Dose: Not Given Pyridoxine HCl (Vitamin B6 -) 100 mg PO DAILY [facility] Last Admin: 12/26/17 09:33 Dose: 100 mg Senna (Senna -) 2 tab PO DAILY [facility] Last Admin: 12/26/17 09:33 Dose: 2 tab Torsemide (Demadex -) 20 mg PO DAILY [facility] Last Admin: 12/26/17 09:33 Dose: 20 mg Warfarin Sodium 7.5 mg/ (Warfarin Sodium 2 mg) 9.5 mg PO DAILY@1800 [facility] Last Admin: 12/25/17 17:34 Dose: 9.5 mg - Objective Vital Signs: Vital Signs Temperature 36.9 C 12/26/17 09:00 Pulse Rate 75 12/26/17 09:00 Respiratory Rate 19 12/26/17 09:00 Blood Pressure 124/60 12/26/17 09:00 O2 Sat by Pulse Oximetry (%) 95 12/25/17 21:00 Constitutional: Yes: No Distress, Calm, Obese Cardiovascular: Yes: Pulse Irregular. No: Tachycardia, Gallop, Murmur, Rub Respiratory: Yes: Regular, CTA Bilaterally. No: Rales, Rhonchi, Wheezes Gastrointestinal: Yes: Normal Bowel Sounds, Soft. No: Distention, Tenderness Extremities: Yes: Other (LLE wrapped) Edema: No Labs: CBC, BMP 12/26/17 07:10 12/26/17 07:10 INR, PTT INR 2.04 (0.82-1.09) H D 12/26/17 07:10 Problem List - Problems (1) Ulcer of left lower extremity Code(s): L97.929 - NON-PRS CHRONIC ULC UNSP PRT OF L LOW LEG W UNSP SEVERITY Qualifiers: Non-pressure ulcer stage: limited to breakdown of skin Qualified Code(s): L97.921 - Non-pressure chronic ulcer of unspecified part of left lower leg limited to breakdown of skin (2) Cellulitis of leg, left Code(s): L03.116 - CELLULITIS OF LEFT LOWER LIMB (3) A-fib Code(s): I48.91 - UNSPECIFIED ATRIAL FIBRILLATION Qualifiers: Atrial fibrillation type: chronic Qualified Code(s): I48.2 - Chronic atrial fibrillation (4) COPD (chronic obstructive pulmonary disease) Code(s): J44.9 - CHRONIC OBSTRUCTIVE PULMONARY DISEASE, UNSPECIFIED (5) HTN (hypertension) Code(s): I10 - ESSENTIAL (PRIMARY) HYPERTENSION (6) T2DM (type 2 diabetes mellitus) Code(s): E11.9 - TYPE 2 DIABETES MELLITUS WITHOUT COMPLICATIONS Qualifiers: Diabetes mellitus complication detail: with unspecified neuropathy (7) Acute kidney injury superimposed on CKD Code(s): N17.9 - ACUTE KIDNEY FAILURE, UNSPECIFIED; N18.9 - CHRONIC KIDNEY DISEASE, UNSPECIFIED (8) Chronic anemia Code(s): D64.9 - ANEMIA, UNSPECIFIED (9) CHF (congestive heart failure) Code(s): I50.9 - HEART FAILURE, UNSPECIFIED (10) COPD (chronic obstructive pulmonary disease) Code(s): J44.9 - CHRONIC OBSTRUCTIVE PULMONARY DISEASE, UNSPECIFIED (11) CML (chronic myelocytic leukemia) Code(s): C92.10 - CHRONIC MYELOID LEUK, BCR/ABL-POSITIVE, NOT ACHIEVE REMIS (12) Heel ulcer due to DM Code(s): E11.621 - TYPE 2 DIABETES MELLITUS WITH FOOT ULCER; L97.409 - NON-PRS CHRONIC ULCER OF UNSP HEEL AND MIDFOOT W UNSP SEVERT Qualifiers: Diabetes mellitus type: type 2 Laterality: left Non-pressure ulcer stage : with fat layer exposed Qualified Code(s): E11.621 - Type 2 diabetes mellitus with foot ulcer; L97.422 - Non-pressure chronic ulcer of left heel and midfoot with fat layer exposed; L97.422 - Non-pressure chronic ulcer of left heel and midfoot with fat layer exposed; L97.422 - Non-pressure chronic ulcer of left heel and midfoot with fat layer exposed; L97.422 - Non-pressure chronic ulcer of left heel and midfoot with fat layer exposed Assessment/Plan (1) Ulcer of left lower extremity Assessment/Plan: -case d/w Dr Pena -Dr Baker consulted, awaiting recommendations -continue clindamycin, patient feeling better Code(s): L97.929 - NON-PRS CHRONIC ULC UNSP PRT OF L LOW LEG W UNSP SEVERITY Qualifiers: Non-pressure ulcer stage: limited to breakdown of skin Qualified Code(s): L97.921 - Non-pressure chronic ulcer of unspecified part of left lower leg limited to breakdown of skin (2) Cellulitis of leg, left Assessment/Plan: -case d/w Dr Pena -continue clindamycin or now Code(s): L03.116 - CELLULITIS OF LEFT LOWER LIMB (3) A-fib Assessment/Plan: -rate controlled -continue coumadin, INR therapeutic today -continue diltiazem Code(s): I48.91 - UNSPECIFIED ATRIAL FIBRILLATION Qualifiers: Atrial fibrillation type: chronic Qualified Code(s): I48.2 - Chronic atrial fibrillation (4) COPD (chronic obstructive pulmonary disease) Assessment/Plan: -not in exacerbation -continue duonebs Code(s): J44.9 - CHRONIC OBSTRUCTIVE PULMONARY DISEASE, UNSPECIFIED (5) HTN (hypertension) Assessment/Plan: -controlled -continue current regimen Code(s): I10 - ESSENTIAL (PRIMARY) HYPERTENSION (6) T2DM (type 2 diabetes mellitus) Assessment/Plan: -on humalog SSI at [facility] -HgbA1c is 6.9 -first dose levemir given last night -lunch glucose 219 -will make bid Code(s): E11.9 - TYPE 2 DIABETES MELLITUS WITHOUT COMPLICATIONS Qualifiers: Diabetes mellitus complication detail: with unspecified neuropathy (7) Acute kidney injury superimposed on CKD Assessment/Plan: -stable -will continue torsemide, may need to hold it if creatinine increases Code(s): N17.9 - ACUTE KIDNEY FAILURE, UNSPECIFIED; N18.9 - CHRONIC KIDNEY DISEASE, UNSPECIFIED (8) Chronic anemia Assessment/Plan: -stable -monitor Code(s): D64.9 - ANEMIA, UNSPECIFIED (9) CHF (congestive heart failure) Assessment/Plan: -not in exacerbation -continue torsemide Code(s): I50.9 - HEART FAILURE, UNSPECIFIED Qualifiers: Qualified Code(s): I50.32 - Chronic diastolic (congestive) heart failure (10) COPD (chronic obstructive pulmonary disease) Assessment/Plan: -continue duonebs Code(s): J44.9 - CHRONIC OBSTRUCTIVE PULMONARY DISEASE, UNSPECIFIED (11) CML (chronic myelocytic leukemia) Assessment/Plan: -continue tasigna Code(s): C92.10 - CHRONIC MYELOID LEUK, BCR/ABL-POSITIVE, NOT ACHIEVE REMIS (12) L heel ulcer -appreciate podiatry assistance
--- NOTE | 2017-12-26 12:10 | PN ---
Progress Note, Physician History of Present Illness: main issue pain in the leg otherwise stable no new events - Current Medication List Current Medications: Active Medications Acetaminophen (Tylenol -) 650 mg PO Q6H PRN PRN Reason: FEVER Last Admin: 12/23/17 22:31 Dose: 650 mg Albuterol/Ipratropium (Duoneb -) 1 amp NEB RQID [facility] Last Admin: 12/26/17 11:10 Dose: Not Given Amino Acids (Prosource No Carb Liquid Pkt) 30 ml PO DAILY [facility] Last Admin: 12/26/17 09:28 Dose: 30 ml Artificial Tears (Artificial Tears) 1 drop OU QID [facility] Last Admin: 12/26/17 09:42 Dose: 1 drop Ascorbic Acid (Vitamin C -) 500 mg PO DAILY [facility] Last Admin: 12/26/17 09:28 Dose: 500 mg Bisacodyl (Dulcolax Suppository -) 10 mg RC DAILY PRN PRN Reason: CONSTIPATION Camphor/Menthol (Sarna Anti-Itch -) 1 applic TP PRN PRN PRN Reason: FOR ITCHING Clindamycin HCl (Cleocin -) 300 mg PO Q6HPO [facility] Last Admin: 12/26/17 06:44 Dose: 300 mg Diltiazem HCl (Cardizem Cd -) 120 mg PO DAILY [facility] Last Admin: 12/26/17 09:33 Dose: 120 mg Diphenhydramine HCl (Benadryl -) 25 mg PO Q6H PRN PRN Reason: FOR ITCHING Last Admin: 12/25/17 21:31 Dose: 25 mg Docusate Sodium (Colace -) 300 mg PO HS [facility] Last Admin: 12/25/17 21:30 Dose: 300 mg Fluocinonide (Lidex 0.05% Cream -) 1 applic TP BID [facility] Last Admin: 12/26/17 09:43 Dose: 1 applic Folic Acid (Folic Acid -) 1 mg PO DAILY [facility] Last Admin: 12/26/17 09:33 Dose: 1 mg Hydroxyzine HCl (Atarax -) 10 mg PO Q6HPO [facility] Last Admin: 12/26/17 06:44 Dose: 10 mg Insulin Aspart (Novolog Vial Sliding Scale -) 1 vial SQ TIDAC [facility] PRN Reason: Protocol Last Admin: 12/26/17 06:47 Dose: 2 units Insulin Detemir (Levemir Vial) 10 units SQ HS [facility] Last Admin: 12/25/17 22:15 Dose: 10 units Lactic Acid (Lac-Hydrin 12) 1 applic TP ASDIR [facility] Last Admin: 12/25/17 12:16 Dose: 1 applic Levothyroxine Sodium (Synthroid -) 25 mcg PO AM [facility] Last Admin: 12/26/17 06:44 Dose: 25 mcg Magnesium Hydroxide (Milk Of Magnesia -) 30 ml PO DAILY PRN PRN Reason: CONSTIPATION Magnesium Oxide (Mag-Ox -) 400 mg PO BID [facility] Last Admin: 12/26/17 09:33 Dose: 400 mg Morphine Sulfate (Msir -) 15 mg PO BID [facility] Last Admin: 12/26/17 09:28 Dose: 15 mg Multivitamins (Total B With C -) 1 each PO DAILY [facility] Last Admin: 12/26/17 09:33 Dose: 1 each Non-Formulary Medication (Nilotinib Hcl [Tasigna]) 300 mg PO BID [facility] Last Admin: 12/26/17 09:37 Dose: 300 mg Oxycodone HCl (Roxicodone -) 10 mg PO Q4H PRN PRN Reason: PAIN Last Admin: 12/26/17 03:05 Dose: 10 mg Oxymetazoline HCl (Afrin -) 1 spray NS BID [facility] Last Admin: 12/26/17 09:33 Dose: 1 spray Pantoprazole Sodium (Protonix -) 40 mg PO DAILY [facility] Last Admin: 12/26/17 09:33 Dose: 40 mg Polyethylene Glycol (Miralax (For Daily Use) -) 17 gm PO DAILY [facility] Last Admin: 12/26/17 11:40 Dose: Not Given Pyridoxine HCl (Vitamin B6 -) 100 mg PO DAILY [facility] Last Admin: 12/26/17 09:33 Dose: 100 mg Senna (Senna -) 2 tab PO DAILY [facility] Last Admin: 12/26/17 09:33 Dose: 2 tab Torsemide (Demadex -) 20 mg PO DAILY [facility] Last Admin: 12/26/17 09:33 Dose: 20 mg Warfarin Sodium 7.5 mg/ (Warfarin Sodium 2 mg) 9.5 mg PO DAILY@1800 [facility] Last Admin: 12/25/17 17:34 Dose: 9.5 mg - Objective Vital Signs: Vital Signs Temperature 98.5 F 12/26/17 09:00 Pulse Rate 75 12/26/17 09:00 Respiratory Rate 19 12/26/17 09:00 Blood Pressure 124/60 12/26/17 09:00 O2 Sat by Pulse Oximetry (%) 95 12/25/17 21:00 Constitutional: Yes: No Distress, Calm Cardiovascular: Yes: Regular Rate and Rhythm Respiratory: Yes: Regular, CTA Bilaterally Gastrointestinal: Yes: Normal Bowel Sounds, Soft Musculoskeletal: Yes: Other Extremities: Yes: Other Wound/Incision: Yes: Dressing Dry and Intact Neurological: Yes: Alert, Oriented Psychiatric: Yes: Alert, Oriented Labs: CBC, BMP 12/26/17 07:10 12/26/17 07:10 INR, PTT INR 2.04 (0.82-1.09) H D 12/26/17 07:10 Assessment/Plan Problem List - Problems (1) Ulcer of left lower extremity Code(s): L97.929 - NON-PRS CHRONIC ULC UNSP PRT OF L LOW LEG W UNSP SEVERITY Qualifiers: Non-pressure ulcer stage: limited to breakdown of skin Qualified Code(s): L97.921 - Non-pressure chronic ulcer of unspecified part of left lower leg limited to breakdown of skin (2) Cellulitis of leg, left Code(s): L03.116 - CELLULITIS OF LEFT LOWER LIMB (3) A-fib Code(s): I48.91 - UNSPECIFIED ATRIAL FIBRILLATION Qualifiers: Atrial fibrillation type: chronic Qualified Code(s): I48.2 - Chronic atrial fibrillation (4) COPD (chronic obstructive pulmonary disease) Code(s): J44.9 - CHRONIC OBSTRUCTIVE PULMONARY DISEASE, UNSPECIFIED (5) HTN (hypertension) Code(s): I10 - ESSENTIAL (PRIMARY) HYPERTENSION (6) T2DM (type 2 diabetes mellitus) Code(s): E11.9 - TYPE 2 DIABETES MELLITUS WITHOUT COMPLICATIONS Qualifiers: Diabetes mellitus complication detail: with unspecified neuropathy (7) Acute kidney injury superimposed on CKD Code(s): N17.9 - ACUTE KIDNEY FAILURE, UNSPECIFIED; N18.9 - CHRONIC KIDNEY DISEASE, UNSPECIFIED (8) Chronic anemia Code(s): D64.9 - ANEMIA, UNSPECIFIED (9) CHF (congestive heart failure) Code(s): I50.9 - HEART FAILURE, UNSPECIFIED Qualifiers: Qualified Code(s): I50.32 - Chronic diastolic (congestive) heart failure (10) COPD (chronic obstructive pulmonary disease) Code(s): J44.9 - CHRONIC OBSTRUCTIVE PULMONARY DISEASE, UNSPECIFIED (11) CML (chronic myelocytic leukemia) Code(s): C92.10 - CHRONIC MYELOID LEUK, BCR/ABL-POSITIVE, NOT ACHIEVE REMIS plan continue abx wound care plan for wound care to look at the wound await for debridement
--- NOTE | 2017-12-26 12:11 | CONSULT ---
Consult - text type - Consultation Consultation Note: Podiatry Consultation: 67 year old DM F well known to me from wound healing center admitted from SNF for worsening L leg pain. Patient has a 6+ week history of pain to the leg. I had ordered a venous duplex in the past but the patient refused obtaining study. She has a resolved R heel diabetic ulcer. She has been seen weekly for her L heel ulcer. Currently afebrile, VSS. PMHx: IDDM, HTN, pulmonary HTN, CML, AFib Meds: noted ALL: metronidazole, metoprolol MELANI: L foot: inferior heel diabetic ulcer measuring 1.0 cm x 1.0 cm x 0.3 cm, mostly granular base, small area of fibrotic slough, no probing to bone, no purulent drainage, no fluctuance, no periwound erythema, no ascending cellulitis, no signs of active infection. Minimal tenderness to palpation. No necrotic changes. Imp: 67 year old DM F with L heel diabetic ulcer 1. After informed consent, excisional debridement of left heel performed to level of subcutaneous tissue using #15 blade scalpel. The wound was cleansed with sterile saline and puracol was applied to the left heel. The patient tolerated the procedure well. 2. Wound care while inpatient with puracol to L heel and dry sterile dressing 3x /week. 3. Heel suspension boot and heel offloading measures. 4. Upon discharge, will f/u with me in [facility]. Michaela Farmer DPM
[2017-12-26] MEDS: AMMONIUM LACTATE 12% LOTION 225 GM BOTTLE TP SCH (14:12)
[2017-12-26] MEDS ORDERED: WARFARIN NA 7.5 MG TABLET (FP) ONE (17:04)
[2017-12-26] MEDS ORDERED: WARFARIN NA 2 MG TABLET (UD) ONE (17:04)
[2017-12-26] MEDS: ACETAMINOPHEN 325 MG TABLET (FP) PO PRN (17:14)
--- NOTE | 2017-12-26 17:23 | PN ---
Progress Note (short form) - Note Progress Note: Vascular Surgery Pt seen and examined Left calf wound dressing changed. Julio C pus draining from leg. Will need washout. Will do in am. NPO past midnight. Yvon Baker DO
[2017-12-26] MEDS: WARFARIN NA PO SCH (17:55)
[2017-12-26] MEDS: INSULIN (LEVEMIR) 100 UNITS/ML UNITS SQ SCH (21:59)
[2017-12-26] MEDS: DOCUSATE SODIUM 100 MG CAPSULE (FP) PO SCH (21:59)
[2017-12-26] MEDS ORDERED: INSULIN (LEVEMIR) 100 UNITS/ML UNITS SQ ONE (22:34)
[2017-12-27] MEDS: INSULIN SLIDING SCALE (NOVOLOG) 1 VIAL SQ SCH ×3 (06:39→18:35)
[2017-12-27] MEDS: hydrOXYzine HCL 10 MG TABLET PO SCH ×5 (07:54→23:14)
[2017-12-27] MEDS: CLINDAMYCIN HCL 150 MG CAPSULE (FP) PO SCH ×5 (07:54→23:14)
[2017-12-27] MEDS: LEVOTHYROXINE NA 25 MCG TABLET (FP) PO SCH ×2 (07:55→08:50)
[2017-12-27] MEDS: ALBUTEROL SO4 2.5/IPRATROPIUM 0.5 INH SOL 3 ML VIAL.NEB. NEB SCH ×4 (08:05→20:49)
[2017-12-27 08:46] LABS: BASO % 0.2 % (0-2.0); EOS % 5.1 % (0-4.5); HEMATOCRIT 22.6 % (32.4-45.2); HEMOGLOBIN 7.5 GM/dL (10.7-15.3); LYMPH % 9.5 % (8-40); MCH 28.6 pg (25.7-33.7); MCHC 33.2 g/dl (32.0-36.0); MEAN CELL VOLUME 86.1 fl (80-96); MEAN PLT VOLUME 8.1 fl (7.5-11.1); MONO % 5.6 % (3.8-10.2); NEUT % 79.6 % (42.8-82.8); PLATELET COUNT 236 K/MM3 (134-434); RBC 2.62 M/mm3 (3.60-5.2); RDW 16.9 % (11.6-15.6); WHITE BLOOD COUNT 6.1 K/mm3 (4.0-10.0)
[2017-12-27] MEDS: oxyCODONE HCL 5 MG TABLET PO PRN ×3 (08:50→20:27)
[2017-12-27 09:06] LABS: ANION GAP 6 (8-16); BLOOD UREA NITROGEN 59 mg/dL (7-18); CHLORIDE 103 mmol/L (98-107); CO2 28 mmol/L (21-32); CREATININE 1.4 mg/dL (0.55-1.02); GLUCOSE,RANDOM 105 mg/dL (74-106); MAGNESIUM 2.8 mg/dL (1.8-2.4); PHOSPHOROUS 4.6 mg/dL (2.5-4.9); POTASSIUM 4.7 mmol/L (3.5-5.1); SODIUM 137 mmol/L (136-145)
[2017-12-27] MEDS ORDERED: PT OWN MED DRAWER 7, Y5N ONE (09:11)
[2017-12-27] MEDS: PANTOPRAZOLE 40 MG TABLET (FP) PO SCH (09:34)
[2017-12-27] MEDS: MAGNESIUM OXIDE 400 MG TABLET (FP) PO SCH ×2 (09:34→21:51)
[2017-12-27] MEDS: morphine SULFATE IMMEDIATE RELEASE 30 MG TAB PO SCH ×2 (09:34→21:52)
[2017-12-27] MEDS: NILOTINIB HCL 300 MG PO SCH ×2 (09:38→21:53)
[2017-12-27] MEDS: ARTIFICIAL TEARS (POLYVINYL ALCOHOL 1.4%) OPTH DROPS OU SCH ×4 (10:40→21:51)
[2017-12-27] MEDS: OXYMETAZOLINE 0.05% NASAL SOLUTION 15 ML BOTTLE NS SCH ×2 (10:40→21:52)
[2017-12-27 10:47] LABS: INR 3.79 (0.82-1.09); PROTHROMBIN TIME (PATIENT) 42.8 SEC (9.7-13.0)
[2017-12-27] MEDS: FLUOCINONIDE 0.05% CREAM (60 GM TUBE) TP SCH ×2 (12:00→21:51)
[2017-12-27] MEDS: AMMONIUM LACTATE 12% LOTION 225 GM BOTTLE TP SCH ×2 (12:00→13:45)
--- NOTE | 2017-12-27 12:02 | PN ---
Progress Note, Physician Chief Complaint: Ms Hernandez continues to improve. She denies cp, sob, n/v. Currently without leg pain. - Current Medication List Current Medications: Active Medications Acetaminophen (Tylenol -) 650 mg PO Q6H PRN PRN Reason: FEVER Last Admin: 12/26/17 17:14 Dose: 650 mg Albuterol/Ipratropium (Duoneb -) 1 amp NEB RQID [facility] Last Admin: 12/27/17 11:43 Dose: 1 amp Amino Acids (Prosource No Carb Liquid Pkt) 30 ml PO DAILY [facility] Last Admin: 12/26/17 09:28 Dose: 30 ml Artificial Tears (Artificial Tears) 1 drop OU QID [facility] Last Admin: 12/27/17 10:40 Dose: Not Given Ascorbic Acid (Vitamin C -) 500 mg PO DAILY [facility] Last Admin: 12/26/17 09:28 Dose: 500 mg Bisacodyl (Dulcolax Suppository -) 10 mg RC DAILY PRN PRN Reason: CONSTIPATION Camphor/Menthol (Sarna Anti-Itch -) 1 applic TP PRN PRN PRN Reason: FOR ITCHING Clindamycin HCl (Cleocin -) 300 mg PO Q6HPO [facility] Last Admin: 12/27/17 08:50 Dose: 300 mg Diltiazem HCl (Cardizem Cd -) 120 mg PO DAILY [facility] Last Admin: 12/27/17 09:34 Dose: 120 mg Diphenhydramine HCl (Benadryl -) 25 mg PO Q6H PRN PRN Reason: FOR ITCHING Last Admin: 12/25/17 21:31 Dose: 25 mg Docusate Sodium (Colace -) 300 mg PO HS [facility] Last Admin: 12/26/17 21:59 Dose: 300 mg Fluocinonide (Lidex 0.05% Cream -) 1 applic TP BID [facility] Last Admin: 12/26/17 22:01 Dose: 1 applic Folic Acid (Folic Acid -) 1 mg PO DAILY [facility] Last Admin: 12/26/17 09:33 Dose: 1 mg Hydroxyzine HCl (Atarax -) 10 mg PO Q6HPO [facility] Last Admin: 12/27/17 08:50 Dose: 10 mg Insulin Aspart (Novolog Vial Sliding Scale -) 1 vial SQ TIDAC [facility] PRN Reason: Protocol Last Admin: 12/27/17 06:39 Dose: 2 units Insulin Detemir (Levemir Vial) 10 units SQ HS [facility] Last Admin: 12/26/17 21:59 Dose: 10 units Lactic Acid (Lac-Hydrin 12) 1 applic TP ASDIR [facility] Last Admin: 12/26/17 14:12 Dose: 1 applic Levothyroxine Sodium (Synthroid -) 25 mcg PO AM [facility] Last Admin: 12/27/17 08:50 Dose: 25 mcg Magnesium Hydroxide (Milk Of Magnesia -) 30 ml PO DAILY PRN PRN Reason: CONSTIPATION Magnesium Oxide (Mag-Ox -) 400 mg PO BID [facility] Last Admin: 12/27/17 09:34 Dose: 400 mg Morphine Sulfate (Msir -) 15 mg PO BID [facility] Last Admin: 12/27/17 09:34 Dose: 15 mg Multivitamins (Total B With C -) 1 each PO DAILY [facility] Last Admin: 12/26/17 09:33 Dose: 1 each Non-Formulary Medication (Nilotinib Hcl [Tasigna]) 300 mg PO BID [facility] Last Admin: 12/27/17 09:38 Dose: 300 mg Oxycodone HCl (Roxicodone -) 10 mg PO Q4H PRN PRN Reason: PAIN Last Admin: 12/27/17 08:50 Dose: 10 mg Oxymetazoline HCl (Afrin -) 1 spray NS BID [facility] Last Admin: 12/27/17 10:40 Dose: Not Given Pantoprazole Sodium (Protonix -) 40 mg PO DAILY [facility] Last Admin: 12/27/17 09:34 Dose: 40 mg Polyethylene Glycol (Miralax (For Daily Use) -) 17 gm PO DAILY [facility] Last Admin: 12/26/17 11:40 Dose: Not Given Pyridoxine HCl (Vitamin B6 -) 100 mg PO DAILY [facility] Last Admin: 12/26/17 09:33 Dose: 100 mg Senna (Senna -) 2 tab PO DAILY [facility] Last Admin: 12/26/17 09:33 Dose: 2 tab Torsemide (Demadex -) 20 mg PO DAILY [facility] Last Admin: 12/26/17 09:33 Dose: 20 mg - Objective Vital Signs: Vital Signs Temperature 36.6 C 12/27/17 05:10 Pulse Rate 65 12/27/17 05:10 Respiratory Rate 18 12/27/17 05:10 Blood Pressure 118/57 12/27/17 05:10 O2 Sat by Pulse Oximetry (%) 95 12/26/17 21:00 Constitutional: Yes: No Distress, Calm, Obese Cardiovascular: Yes: Regular Rate and Rhythm. No: Gallop, Murmur, Rub Respiratory: Yes: Regular, CTA Bilaterally. No: Rales, Rhonchi, Wheezes Gastrointestinal: Yes: Normal Bowel Sounds, Soft. No: Distention, Tenderness Extremities: Yes: Other (LLE wrapped) Edema: Yes Edema: LLE: Trace, RLE: Trace Labs: CBC, BMP 12/27/17 08:10 12/27/17 08:10 INR, PTT INR 3.79 (0.82-1.09) H D 12/27/17 10:15 Problem List - Problems (1) Ulcer of left lower extremity Code(s): L97.929 - NON-PRS CHRONIC ULC UNSP PRT OF L LOW LEG W UNSP SEVERITY Qualifiers: Non-pressure ulcer stage: limited to breakdown of skin Qualified Code(s): L97.921 - Non-pressure chronic ulcer of unspecified part of left lower leg limited to breakdown of skin (2) Cellulitis of leg, left Code(s): L03.116 - CELLULITIS OF LEFT LOWER LIMB (3) A-fib Code(s): I48.91 - UNSPECIFIED ATRIAL FIBRILLATION Qualifiers: Atrial fibrillation type: chronic Qualified Code(s): I48.2 - Chronic atrial fibrillation (4) COPD (chronic obstructive pulmonary disease) Code(s): J44.9 - CHRONIC OBSTRUCTIVE PULMONARY DISEASE, UNSPECIFIED (5) HTN (hypertension) Code(s): I10 - ESSENTIAL (PRIMARY) HYPERTENSION (6) T2DM (type 2 diabetes mellitus) Code(s): E11.9 - TYPE 2 DIABETES MELLITUS WITHOUT COMPLICATIONS Qualifiers: Diabetes mellitus complication detail: with unspecified neuropathy (7) Acute kidney injury superimposed on CKD Code(s): N17.9 - ACUTE KIDNEY FAILURE, UNSPECIFIED; N18.9 - CHRONIC KIDNEY DISEASE, UNSPECIFIED (8) Chronic anemia Code(s): D64.9 - ANEMIA, UNSPECIFIED (9) CHF (congestive heart failure) Code(s): I50.9 - HEART FAILURE, UNSPECIFIED (10) COPD (chronic obstructive pulmonary disease) Code(s): J44.9 - CHRONIC OBSTRUCTIVE PULMONARY DISEASE, UNSPECIFIED (11) CML (chronic myelocytic leukemia) Code(s): C92.10 - CHRONIC MYELOID LEUK, BCR/ABL-POSITIVE, NOT ACHIEVE REMIS (12) Heel ulcer due to DM Code(s): E11.621 - TYPE 2 DIABETES MELLITUS WITH FOOT ULCER; L97.409 - NON-PRS CHRONIC ULCER OF UNSP HEEL AND MIDFOOT W UNSP SEVERT Qualifiers: Diabetes mellitus type: type 2 Laterality: left Non-pressure ulcer stage : with fat layer exposed Qualified Code(s): E11.621 - Type 2 diabetes mellitus with foot ulcer; L97.422 - Non-pressure chronic ulcer of left heel and midfoot with fat layer exposed; L97.422 - Non-pressure chronic ulcer of left heel and midfoot with fat layer exposed; L97.422 - Non-pressure chronic ulcer of left heel and midfoot with fat layer exposed; L97.422 - Non-pressure chronic ulcer of left heel and midfoot with fat layer exposed Assessment/Plan (1) Ulcer of left lower extremity Assessment/Plan: -case d/w Dr Pena -going to OR today for washout -continue clindamycin Code(s): L97.929 - NON-PRS CHRONIC ULC UNSP PRT OF L LOW LEG W UNSP SEVERITY Qualifiers: Non-pressure ulcer stage: limited to breakdown of skin Qualified Code(s): L97.921 - Non-pressure chronic ulcer of unspecified part of left lower leg limited to breakdown of skin (2) Cellulitis of leg, left Assessment/Plan: -case d/w Dr Pena -continue clindamycin Code(s): L03.116 - CELLULITIS OF LEFT LOWER LIMB (3) A-fib Assessment/Plan: -rate controlled -INR supratherapeutic but no hemorrhage, hold coumadin -continue diltiazem Code(s): I48.91 - UNSPECIFIED ATRIAL FIBRILLATION Qualifiers: Atrial fibrillation type: chronic Qualified Code(s): I48.2 - Chronic atrial fibrillation (4) COPD (chronic obstructive pulmonary disease) Assessment/Plan: -not in exacerbation -continue duonebs Code(s): J44.9 - CHRONIC OBSTRUCTIVE PULMONARY DISEASE, UNSPECIFIED (5) HTN (hypertension) Assessment/Plan: -controlled -continue current regimen Code(s): I10 - ESSENTIAL (PRIMARY) HYPERTENSION (6) T2DM (type 2 diabetes mellitus) Assessment/Plan: -on humalog SSI at [facility] -HgbA1c is 6.9 -planned to make bid, but patient was npo this am -will change to bid today Code(s): E11.9 - TYPE 2 DIABETES MELLITUS WITHOUT COMPLICATIONS Qualifiers: Diabetes mellitus complication detail: with unspecified neuropathy (7) Acute kidney injury superimposed on CKD Assessment/Plan: -stable -will continue torsemide, may need to hold it if creatinine increases Code(s): N17.9 - ACUTE KIDNEY FAILURE, UNSPECIFIED; N18.9 - CHRONIC KIDNEY DISEASE, UNSPECIFIED (8) Chronic anemia Assessment/Plan: -stable -monitor Code(s): D64.9 - ANEMIA, UNSPECIFIED (9) CHF (congestive heart failure) Assessment/Plan: -not in exacerbation -continue torsemide Code(s): I50.9 - HEART FAILURE, UNSPECIFIED Qualifiers: Qualified Code(s): I50.32 - Chronic diastolic (congestive) heart failure (10) COPD (chronic obstructive pulmonary disease) Assessment/Plan: -continue duonebs Code(s): J44.9 - CHRONIC OBSTRUCTIVE PULMONARY DISEASE, UNSPECIFIED (11) CML (chronic myelocytic leukemia) Assessment/Plan: -continue tasigna Code(s): C92.10 - CHRONIC MYELOID LEUK, BCR/ABL-POSITIVE, NOT ACHIEVE REMIS (12) L heel ulcer -appreciate podiatry assistance
[2017-12-27] MEDS ORDERED: LIDOCAINE HCL 1%, 10 MG/ML (20ML VIAL) ONE (12:19)
[2017-12-27] MEDS ORDERED: MIDAZOLAM HCL 2 MG/2 ML SINGLE DOSE VIAL ONE (12:33)
[2017-12-27] MEDS ORDERED: LIDOCAINE HCL 1%, 10 MG/ML (20ML VIAL) NR ONE (12:35)
[2017-12-27] MEDS ORDERED: SODIUM CHLORIDE 0.9% P/F 10 ML VIAL IJ ONE (12:38)
[2017-12-27] MEDS ORDERED: PROMETHAZINE HCL 25 MG/1 ML VIAL IVPUSH PRN ×2 (13:28→13:55)
[2017-12-27] MEDS ORDERED: ONDANSETRON 4 MG/2 ML VIAL IVPUSH PRN ×2 (13:28→13:55)
[2017-12-27] MEDS ORDERED: LACTATED RINGERS SOLUTION 1,000 ML IV SCH ×2 (13:30→13:55)
[2017-12-27] MEDS ORDERED: MAGNESIUM HYDROX 2400MG/30ML ORAL SUSPENSION 30 ML CUP PO PRN (13:55)
[2017-12-27] MEDS ORDERED: MENTHOL/CAMPHOR 1 APPLIC BTL TP PRN (13:55)
[2017-12-27] MEDS ORDERED: diphenhydrAMINE HCL 25 MG CAPSULE (FP) PO PRN (13:55)
[2017-12-27] MEDS ORDERED: BISACODYL 10 MG SUPP.RECT RC PRN (13:55)
--- NOTE | 2017-12-27 13:55 | OP ---
Operative Note - Note: Operative Date: 12/27/17 Pre-Operative Diagnosis: left calf abscess Operation: Left calf drainiage of abscess, excisional debridement skin, subcutanous tissue left calf Post-Operative Diagnosis: Same as Pre-op Surgeon: Yvon Baker Anesthesia: Fractional Estimated Blood Loss (mls): 30 Operative Report Dictated: Yes
--- NOTE | 2017-12-27 14:03 | PN ---
Progress Note, Physician History of Present Illness: stable doing well debrided by wound care - Current Medication List Current Medications: Active Medications Acetaminophen (Tylenol -) 650 mg PO Q6H PRN PRN Reason: FEVER Albuterol/Ipratropium (Duoneb -) 1 amp NEB RQID [facility] Amino Acids (Prosource No Carb Liquid Pkt) 30 ml PO DAILY [facility] Artificial Tears (Artificial Tears) 1 drop OU QID [facility] Ascorbic Acid (Vitamin C -) 500 mg PO DAILY [facility] Bisacodyl (Dulcolax Suppository -) 10 mg RC DAILY PRN PRN Reason: CONSTIPATION Camphor/Menthol (Sarna Anti-Itch -) 1 applic TP PRN PRN PRN Reason: FOR ITCHING Clindamycin HCl (Cleocin -) 300 mg PO Q6HPO [facility] Diltiazem HCl (Cardizem Cd -) 120 mg PO DAILY [facility] Diphenhydramine HCl (Benadryl -) 25 mg PO Q6H PRN PRN Reason: FOR ITCHING Docusate Sodium (Colace -) 300 mg PO HS [facility] Fentanyl (Sublimaze Injection -) 50 mcg IVPUSH [id number] PRN PRN Reason: PAIN-PACU ORDER X 4 DOSES ONLY Last Admin: 12/27/17 13:50 Dose: 50 mcg Fluocinonide (Lidex 0.05% Cream -) 1 applic TP BID [facility] Folic Acid (Folic Acid -) 1 mg PO DAILY [facility] Hydroxyzine HCl (Atarax -) 10 mg PO Q6HPO [facility] Lactated Ringer's (Lactated Ringers Solution) 1,000 mls @ 125 mls/hr IV ASDIR [facility] Insulin Aspart (Novolog Vial Sliding Scale -) 1 vial SQ TIDAC [facility] PRN Reason: Protocol Insulin Detemir (Levemir Vial) 10 units SQ HS [facility] Lactic Acid (Lac-Hydrin 12) 1 applic TP ASDIR [facility] Levothyroxine Sodium (Synthroid -) 25 mcg PO AM [facility] Magnesium Hydroxide (Milk Of Magnesia -) 30 ml PO DAILY PRN PRN Reason: CONSTIPATION Magnesium Oxide (Mag-Ox -) 400 mg PO BID [facility] Morphine Sulfate (Msir -) 15 mg PO BID [facility] Multivitamins (Total B With C -) 1 each PO DAILY [facility] Non-Formulary Medication (Nilotinib Hcl [Tasigna]) 300 mg PO BID [facility] Ondansetron HCl (Zofran Injection) 4 mg IVPUSH Q6H PRN PRN Reason: NAUSEA AND/OR VOMITING Oxycodone HCl (Roxicodone -) 10 mg PO Q4H PRN PRN Reason: PAIN Oxymetazoline HCl (Afrin -) 1 spray NS BID [facility] Pantoprazole Sodium (Protonix -) 40 mg PO DAILY [facility] Polyethylene Glycol (Miralax (For Daily Use) -) 17 gm PO DAILY [facility] Promethazine HCl (Phenergan Injection -) 12.5 mg IVPUSH Q6H PRN PRN Reason: NAUSEA-FOR RESCUE AFTER 15 MIN Pyridoxine HCl (Vitamin B6 -) 100 mg PO DAILY [facility] Senna (Senna -) 2 tab PO DAILY [facility] Torsemide (Demadex -) 20 mg PO DAILY [facility] - Objective Vital Signs: Vital Signs Temperature 98.5 F 12/27/17 12:47 Pulse Rate 74 12/27/17 12:47 Respiratory Rate 16 12/27/17 12:47 Blood Pressure 118/53 12/27/17 12:47 O2 Sat by Pulse Oximetry (%) 99 12/27/17 12:47 Constitutional: Yes: No Distress, Calm Cardiovascular: Yes: Regular Rate and Rhythm Respiratory: Yes: Regular, CTA Bilaterally Gastrointestinal: Yes: Normal Bowel Sounds, Soft Musculoskeletal: Yes: WNL Extremities: Yes: Other Wound/Incision: Yes: Dressing Dry and Intact Neurological: Yes: Alert, Oriented Psychiatric: Yes: Alert Labs: CBC, BMP 12/27/17 08:10 12/27/17 08:10 INR, PTT INR 3.79 (0.82-1.09) H D 12/27/17 10:15 Assessment/Plan Problem List - Problems (1) Ulcer of left lower extremity Code(s): L97.929 - NON-PRS CHRONIC ULC UNSP PRT OF L LOW LEG W UNSP SEVERITY Qualifiers: Non-pressure ulcer stage: limited to breakdown of skin Qualified Code(s): L97.921 - Non-pressure chronic ulcer of unspecified part of left lower leg limited to breakdown of skin (2) Cellulitis of leg, left Code(s): L03.116 - CELLULITIS OF LEFT LOWER LIMB (3) A-fib Code(s): I48.91 - UNSPECIFIED ATRIAL FIBRILLATION Qualifiers: Atrial fibrillation type: chronic Qualified Code(s): I48.2 - Chronic atrial fibrillation (4) COPD (chronic obstructive pulmonary disease) Code(s): J44.9 - CHRONIC OBSTRUCTIVE PULMONARY DISEASE, UNSPECIFIED (5) HTN (hypertension) Code(s): I10 - ESSENTIAL (PRIMARY) HYPERTENSION (6) T2DM (type 2 diabetes mellitus) Code(s): E11.9 - TYPE 2 DIABETES MELLITUS WITHOUT COMPLICATIONS Qualifiers: Diabetes mellitus complication detail: with unspecified neuropathy (7) Acute kidney injury superimposed on CKD Code(s): N17.9 - ACUTE KIDNEY FAILURE, UNSPECIFIED; N18.9 - CHRONIC KIDNEY DISEASE, UNSPECIFIED (8) Chronic anemia Code(s): D64.9 - ANEMIA, UNSPECIFIED (9) CHF (congestive heart failure) Code(s): I50.9 - HEART FAILURE, UNSPECIFIED Qualifiers: Qualified Code(s): I50.32 - Chronic diastolic (congestive) heart failure (10) COPD (chronic obstructive pulmonary disease) Code(s): J44.9 - CHRONIC OBSTRUCTIVE PULMONARY DISEASE, UNSPECIFIED (11) CML (chronic myelocytic leukemia) Code(s): C92.10 - CHRONIC MYELOID LEUK, BCR/ABL-POSITIVE, NOT ACHIEVE REMIS plan continue abx wound care await for cx report rest as per the team
[2017-12-27] MEDS: TORSEMIDE 20 MG TABLET (FP) PO SCH (14:52)
[2017-12-27] MEDS: ACETAMINOPHEN 325 MG TABLET (FP) PO PRN (16:26)
[2017-12-27] MEDS: POLYETHYLENE GLYCOL 3350 119 GM BTL PO SCH (16:29)
[2017-12-27] MEDS: FOLIC ACID 1 MG TABLET (FP) PO SCH (18:40)
[2017-12-27] MEDS: AMINO ACIDS/PROTEIN HYDROLYS 30 ML LIQUID.PKT PO SCH (18:40)
[2017-12-27] MEDS: SENNOSIDES 8.6MG TABLET (FP) PO SCH (18:40)
[2017-12-27] MEDS: VITAMIN B COMPLEX W/C COMBO TABLET (FP) PO SCH (18:41)
[2017-12-27] MEDS: PYRIDOXINE HCL (B-6) 50 MG TABLET (FP) PO SCH (18:41)
[2017-12-27] MEDS: ASCORBIC ACID 500 MG TABLET (FP) PO SCH (18:41)
[2017-12-27] MEDS: INSULIN (LEVEMIR) 100 UNITS/ML UNITS SQ SCH (21:49)
[2017-12-27] MEDS: DOCUSATE SODIUM 100 MG CAPSULE (FP) PO SCH (21:50)
[2017-12-27] MEDS ORDERED: INSULIN (LEVEMIR) 100 UNITS/ML UNITS SQ SCH (22:00)
[2017-12-28] MEDS: oxyCODONE HCL 5 MG TABLET PO PRN ×3 (00:45→15:45)
[2017-12-28] MEDS: INSULIN SLIDING SCALE (NOVOLOG) 1 VIAL SQ SCH ×3 (06:33→17:33)
[2017-12-28] MEDS: INSULIN (LEVEMIR) 100 UNITS/ML UNITS SQ SCH ×2 (06:33→21:47)
[2017-12-28] MEDS: hydrOXYzine HCL 10 MG TABLET PO SCH ×4 (06:34→23:24)
[2017-12-28] MEDS: LEVOTHYROXINE NA 25 MCG TABLET (FP) PO SCH (06:34)
[2017-12-28] MEDS: CLINDAMYCIN HCL 150 MG CAPSULE (FP) PO SCH ×4 (06:34→23:24)
[2017-12-28] MEDS ORDERED: INSULIN (NOVOLOG) ASPART 100 UNITS/ML 10ML VIAL ONE ×2 (06:53→11:56)
[2017-12-28 08:00] LABS: BASO % 0.2 % (0-2.0); EOS % 4.8 % (0-4.5); HEMOGLOBIN 7.8 GM/dL (10.7-15.3); LYMPH % 10.9 % (8-40); MCH 28.9 pg (25.7-33.7); MCHC 33.8 g/dl (32.0-36.0); MEAN CELL VOLUME 85.5 fl (80-96); MEAN PLT VOLUME 7.9 fl (7.5-11.1); MONO % 4.9 % (3.8-10.2); NEUT % 79.2 % (42.8-82.8); PLATELET COUNT 246 K/MM3 (134-434); RBC 2.69 M/mm3 (3.60-5.2); RDW 16.8 % (11.6-15.6); WHITE BLOOD COUNT 6.3 K/mm3 (4.0-10.0)
[2017-12-28 08:26] LABS: ANION GAP 5 (8-16); BLOOD UREA NITROGEN 51 mg/dL (7-18); CALCIUM 7.7 mg/dL (8.5-10.1); CHLORIDE 105 mmol/L (98-107); CO2 28 mmol/L (21-32); GLUCOSE,RANDOM 147 mg/dL (74-106); MAGNESIUM 2.6 mg/dL (1.8-2.4); POTASSIUM 4.7 mmol/L (3.5-5.1); SODIUM 138 mmol/L (136-145)
[2017-12-28 08:27] LABS: CREATININE 1.3 mg/dL (0.55-1.02); PHOSPHOROUS 4.4 mg/dL (2.5-4.9)
[2017-12-28] MEDS: ALBUTEROL SO4 2.5/IPRATROPIUM 0.5 INH SOL 3 ML VIAL.NEB. NEB SCH ×4 (08:37→21:20)
[2017-12-28 08:56] LABS: INR 3.36 (0.82-1.09)
[2017-12-28] MEDS ORDERED: PT OWN MED DRAWER 7, Y5N ONE (08:58)
[2017-12-28] MEDS: morphine SULFATE IMMEDIATE RELEASE 30 MG TAB PO SCH ×2 (09:03→21:43)
--- NOTE | 2017-12-28 09:12 | PN ---
Progress Note (short form) - Note Progress Note: Vascular Surgery s/P drainage of abscess and debridement yest. Santyl to wound daily today. Cultures taken of abscess in operating room. Will help to treat. ID on case. Yvon estrada DO
--- NOTE | 2017-12-28 09:24 | OP ---
DATE OF OPERATION: 12/27/2017 PREOPERATIVE DIAGNOSIS: Left calf abscess. POSTOPERATIVE DIAGNOSIS: Left calf abscess. PROCEDURE: Left calf drainage of abscess, excisional debridement of skin and subcutaneous tissue, left calf. SURGEON: Yvon Kee DO ANESTHESIA: Fractional. BLOOD LOSS: 30 mL The patient is a 67-year-old female who comes in to the hospital with a left foot ulcer and a left calf abscess. She was seen on the floor, and there was yoel pus draining from her wound, and it was decided that she would need a washout. Patient was consented for the procedure, understanding all risks, benefits, and alternatives, then taken to the operating room. DESCRIPTION OF PROCEDURE: Once in the operating room, was laid on the operating table in supine manner, and the area of the left calf was prepped and draped in sterile surgical manner. We then went ahead and took Metzenbaum scissors, and we excised all the skin and subcutaneous tissue. All the necrotic tissue was removed. We then undermined the wound to make sure that there was no pus. During this whole process, we did cultures of the abscess as well. We then took a pulse senior hydrogeologist with bacitracin solution inside, and we were able to pulse irrigate the wound to make sure that it was nice and clean with no more pus. At the end of the case, we went ahead and used wet-to-dry dressings and a Kerlix. The patient was transferred to the PACU in stable condition. Total blood loss 30 mL. The patient tolerated the procedure with no complications. YVON KEE DO TECHNOLOGY SALES SPECIALIST/[id number]
[2017-12-28] MEDS: ARTIFICIAL TEARS (POLYVINYL ALCOHOL 1.4%) OPTH DROPS OU SCH ×4 (10:00→21:42)
[2017-12-28] MEDS: ACETAMINOPHEN 325 MG TABLET (FP) PO PRN ×2 (11:25→17:24)
[2017-12-28] MEDS: SENNOSIDES 8.6MG TABLET (FP) PO SCH (11:27)
[2017-12-28] MEDS: TORSEMIDE 20 MG TABLET (FP) PO SCH (11:27)
[2017-12-28] MEDS: MAGNESIUM OXIDE 400 MG TABLET (FP) PO SCH ×2 (11:30→21:42)
[2017-12-28] MEDS: NILOTINIB HCL 300 MG PO SCH ×2 (11:30→21:45)
--- NOTE | 2017-12-28 12:38 | PN ---
Progress Note (short form) - Note Progress Note: Anesthesia postop note 67 y/o F s/p GA for debridment of left calf wound POD#1, vss, aaox3, no complaints. No anesthesia complications.
--- NOTE | 2017-12-28 12:55 | PN ---
Progress Note, Physician Chief Complaint: Ms Hernandez is without complaint. No cp, sob, n/v. - Current Medication List Current Medications: Active Medications Acetaminophen (Tylenol -) 650 mg PO Q6H PRN PRN Reason: FEVER Last Admin: 12/28/17 11:25 Dose: 650 mg Albuterol/Ipratropium (Duoneb -) 1 amp NEB RQID [facility] Last Admin: 12/28/17 08:37 Dose: 1 amp Amino Acids (Prosource No Carb Liquid Pkt) 30 ml PO DAILY [facility] Artificial Tears (Artificial Tears) 1 drop OU QID [facility] Last Admin: 12/28/17 10:00 Dose: Not Given Ascorbic Acid (Vitamin C -) 500 mg PO DAILY [facility] Bisacodyl (Dulcolax Suppository -) 10 mg RC DAILY PRN PRN Reason: CONSTIPATION Camphor/Menthol (Sarna Anti-Itch -) 1 applic TP PRN PRN PRN Reason: FOR ITCHING Clindamycin HCl (Cleocin -) 300 mg PO Q6HPO [facility] Last Admin: 12/28/17 06:34 Dose: 300 mg Collagenase (Santyl -) 1 applic TP DAILY [facility] Diltiazem HCl (Cardizem Cd -) 120 mg PO DAILY [facility] Last Admin: 12/28/17 11:28 Dose: 120 mg Diphenhydramine HCl (Benadryl -) 25 mg PO Q6H PRN PRN Reason: FOR ITCHING Docusate Sodium (Colace -) 300 mg PO HS [facility] Last Admin: 12/27/17 21:50 Dose: 300 mg Fluocinonide (Lidex 0.05% Cream -) 1 applic TP BID [facility] Last Admin: 12/27/17 21:51 Dose: 1 applic Folic Acid (Folic Acid -) 1 mg PO DAILY [facility] Hydroxyzine HCl (Atarax -) 10 mg PO Q6HPO [facility] Last Admin: 12/28/17 06:34 Dose: 10 mg Insulin Aspart (Novolog Vial Sliding Scale -) 1 vial SQ TIDAC [facility] PRN Reason: Protocol Last Admin: 12/28/17 12:08 Dose: 2 units Insulin Detemir (Levemir Vial) 10 units SQ BID@0700,2200 [facility] Last Admin: 12/28/17 06:33 Dose: 10 units Lactic Acid (Lac-Hydrin 12) 1 applic TP ASDIR [facility] Last Admin: 12/27/17 13:45 Dose: Not Given Levothyroxine Sodium (Synthroid -) 25 mcg PO AM [facility] Last Admin: 12/28/17 06:34 Dose: 25 mcg Magnesium Hydroxide (Milk Of Magnesia -) 30 ml PO DAILY PRN PRN Reason: CONSTIPATION Magnesium Oxide (Mag-Ox -) 400 mg PO BID [facility] Last Admin: 12/28/17 11:30 Dose: 400 mg Morphine Sulfate (Msir -) 15 mg PO BID [facility] Last Admin: 12/28/17 09:03 Dose: 15 mg Multivitamins (Total B With C -) 1 each PO DAILY [facility] Non-Formulary Medication (Nilotinib Hcl [Tasigna]) 300 mg PO BID [facility] Last Admin: 12/28/17 11:30 Dose: 300 mg Ondansetron HCl (Zofran Injection) 4 mg IVPUSH Q6H PRN PRN Reason: NAUSEA AND/OR VOMITING Oxycodone HCl (Roxicodone -) 10 mg PO Q4H PRN PRN Reason: PAIN Last Admin: 12/28/17 06:34 Dose: 10 mg Oxymetazoline HCl (Afrin -) 1 spray NS BID [facility] Last Admin: 12/27/17 21:52 Dose: 1 drop Pantoprazole Sodium (Protonix -) 40 mg PO DAILY [facility] Polyethylene Glycol (Miralax (For Daily Use) -) 17 gm PO DAILY [facility] Promethazine HCl (Phenergan Injection -) 12.5 mg IVPUSH Q6H PRN PRN Reason: NAUSEA-FOR RESCUE AFTER 15 MIN Pyridoxine HCl (Vitamin B6 -) 100 mg PO DAILY [facility] Senna (Senna -) 2 tab PO DAILY [facility] Last Admin: 12/28/17 11:27 Dose: 2 tab Torsemide (Demadex -) 20 mg PO DAILY [facility] Last Admin: 12/28/17 11:27 Dose: 20 mg - Objective Vital Signs: Vital Signs Temperature 36.3 C L 12/28/17 09:15 Pulse Rate 76 12/28/17 09:15 Respiratory Rate 18 12/28/17 09:15 Blood Pressure 150/52 12/28/17 09:15 O2 Sat by Pulse Oximetry (%) 98 12/27/17 21:00 Constitutional: Yes: No Distress, Calm, Obese Cardiovascular: Yes: Regular Rate and Rhythm. No: Gallop, Murmur, Rub Respiratory: Yes: Regular, CTA Bilaterally. No: Rales, Rhonchi, Wheezes Gastrointestinal: Yes: Normal Bowel Sounds, Soft. No: Distention, Tenderness Extremities: Yes: Other (LLE wrapped) Edema: Yes Edema: LLE: 1+, RLE: 1+ Labs: CBC, BMP 12/28/17 06:35 12/28/17 06:35 INR, PTT INR 3.36 (0.82-1.09) H 12/28/17 06:35 Problem List - Problems (1) Ulcer of left lower extremity Code(s): L97.929 - NON-PRS CHRONIC ULC UNSP PRT OF L LOW LEG W UNSP SEVERITY Qualifiers: Non-pressure ulcer stage: limited to breakdown of skin Qualified Code(s): L97.921 - Non-pressure chronic ulcer of unspecified part of left lower leg limited to breakdown of skin (2) Cellulitis of leg, left Code(s): L03.116 - CELLULITIS OF LEFT LOWER LIMB (3) A-fib Code(s): I48.91 - UNSPECIFIED ATRIAL FIBRILLATION Qualifiers: Atrial fibrillation type: chronic Qualified Code(s): I48.2 - Chronic atrial fibrillation (4) COPD (chronic obstructive pulmonary disease) Code(s): J44.9 - CHRONIC OBSTRUCTIVE PULMONARY DISEASE, UNSPECIFIED (5) HTN (hypertension) Code(s): I10 - ESSENTIAL (PRIMARY) HYPERTENSION (6) T2DM (type 2 diabetes mellitus) Code(s): E11.9 - TYPE 2 DIABETES MELLITUS WITHOUT COMPLICATIONS Qualifiers: Diabetes mellitus complication detail: with unspecified neuropathy (7) Acute kidney injury superimposed on CKD Code(s): N17.9 - ACUTE KIDNEY FAILURE, UNSPECIFIED; N18.9 - CHRONIC KIDNEY DISEASE, UNSPECIFIED (8) Chronic anemia Code(s): D64.9 - ANEMIA, UNSPECIFIED (9) CHF (congestive heart failure) Code(s): I50.9 - HEART FAILURE, UNSPECIFIED (10) COPD (chronic obstructive pulmonary disease) Code(s): J44.9 - CHRONIC OBSTRUCTIVE PULMONARY DISEASE, UNSPECIFIED (11) CML (chronic myelocytic leukemia) Code(s): C92.10 - CHRONIC MYELOID LEUK, BCR/ABL-POSITIVE, NOT ACHIEVE REMIS (12) Heel ulcer due to DM Code(s): E11.621 - TYPE 2 DIABETES MELLITUS WITH FOOT ULCER; L97.409 - NON-PRS CHRONIC ULCER OF UNSP HEEL AND MIDFOOT W UNSP SEVERT Qualifiers: Diabetes mellitus type: type 2 Laterality: left Non-pressure ulcer stage : with fat layer exposed Qualified Code(s): E11.621 - Type 2 diabetes mellitus with foot ulcer; L97.422 - Non-pressure chronic ulcer of left heel and midfoot with fat layer exposed; L97.422 - Non-pressure chronic ulcer of left heel and midfoot with fat layer exposed; L97.422 - Non-pressure chronic ulcer of left heel and midfoot with fat layer exposed; L97.422 - Non-pressure chronic ulcer of left heel and midfoot with fat layer exposed Assessment/Plan (1) Ulcer of left lower extremity Assessment/Plan: -continue clindamycin per ID recommendations -s/p debridement with washout Code(s): L97.929 - NON-PRS CHRONIC ULC UNSP PRT OF L LOW LEG W UNSP SEVERITY Qualifiers: Non-pressure ulcer stage: limited to breakdown of skin Qualified Code(s): L97.921 - Non-pressure chronic ulcer of unspecified part of left lower leg limited to breakdown of skin (2) Cellulitis of leg, left Assessment/Plan: -continue clindamycin Code(s): L03.116 - CELLULITIS OF LEFT LOWER LIMB (3) A-fib Assessment/Plan: -rate controlled -INR supratherapeutic but no hemorrhage, hold coumadin -continue diltiazem Code(s): I48.91 - UNSPECIFIED ATRIAL FIBRILLATION Qualifiers: Atrial fibrillation type: chronic Qualified Code(s): I48.2 - Chronic atrial fibrillation (4) COPD (chronic obstructive pulmonary disease) Assessment/Plan: -not in exacerbation -continue duonebs Code(s): J44.9 - CHRONIC OBSTRUCTIVE PULMONARY DISEASE, UNSPECIFIED (5) HTN (hypertension) Assessment/Plan: -controlled -continue current regimen Code(s): I10 - ESSENTIAL (PRIMARY) HYPERTENSION (6) T2DM (type 2 diabetes mellitus) Assessment/Plan: -on humalog SSI at [facility] -HgbA1c is 6.9 -improved control in hospital on bid dosing Code(s): E11.9 - TYPE 2 DIABETES MELLITUS WITHOUT COMPLICATIONS Qualifiers: Diabetes mellitus complication detail: with unspecified neuropathy (7) Acute kidney injury superimposed on CKD Assessment/Plan: -stable -will continue torsemide, may need to hold it if creatinine increases Code(s): N17.9 - ACUTE KIDNEY FAILURE, UNSPECIFIED; N18.9 - CHRONIC KIDNEY DISEASE, UNSPECIFIED (8) Chronic anemia Assessment/Plan: -stable -monitor Code(s): D64.9 - ANEMIA, UNSPECIFIED (9) CHF (congestive heart failure) Assessment/Plan: -not in exacerbation -continue torsemide Code(s): I50.9 - HEART FAILURE, UNSPECIFIED Qualifiers: Qualified Code(s): I50.32 - Chronic diastolic (congestive) heart failure (10) COPD (chronic obstructive pulmonary disease) Assessment/Plan: -continue duonebs Code(s): J44.9 - CHRONIC OBSTRUCTIVE PULMONARY DISEASE, UNSPECIFIED (11) CML (chronic myelocytic leukemia) Assessment/Plan: -continue tasigna Code(s): C92.10 - CHRONIC MYELOID LEUK, BCR/ABL-POSITIVE, NOT ACHIEVE REMIS (12) L heel ulcer -appreciate podiatry assistance
[2017-12-28] MEDS: FOLIC ACID 1 MG TABLET (FP) PO SCH (13:08)
[2017-12-28] MEDS: PANTOPRAZOLE 40 MG TABLET (FP) PO SCH (13:08)
[2017-12-28] MEDS: PYRIDOXINE HCL (B-6) 50 MG TABLET (FP) PO SCH (13:08)
[2017-12-28] MEDS: VITAMIN B COMPLEX W/C COMBO TABLET (FP) PO SCH (13:09)
[2017-12-28] MEDS: ASCORBIC ACID 500 MG TABLET (FP) PO SCH (13:09)
[2017-12-28] MEDS: AMMONIUM LACTATE 12% LOTION 225 GM BOTTLE TP SCH (13:18)
[2017-12-28] MEDS: FLUOCINONIDE 0.05% CREAM (60 GM TUBE) TP SCH ×2 (13:18→21:47)
--- NOTE | 2017-12-28 13:54 | PN ---
Progress Note, Physician History of Present Illness: stable no complaints post op from debridement stable - Current Medication List Current Medications: Active Medications Acetaminophen (Tylenol -) 650 mg PO Q6H PRN PRN Reason: FEVER Last Admin: 12/28/17 11:25 Dose: 650 mg Albuterol/Ipratropium (Duoneb -) 1 amp NEB RQID [facility] Last Admin: 12/28/17 08:37 Dose: 1 amp Amino Acids (Prosource No Carb Liquid Pkt) 30 ml PO DAILY [facility] Artificial Tears (Artificial Tears) 1 drop OU QID [facility] Last Admin: 12/28/17 13:09 Dose: 1 drop Ascorbic Acid (Vitamin C -) 500 mg PO DAILY [facility] Last Admin: 12/28/17 13:09 Dose: 500 mg Bisacodyl (Dulcolax Suppository -) 10 mg RC DAILY PRN PRN Reason: CONSTIPATION Camphor/Menthol (Sarna Anti-Itch -) 1 applic TP PRN PRN PRN Reason: FOR ITCHING Clindamycin HCl (Cleocin -) 300 mg PO Q6HPO [facility] Last Admin: 12/28/17 13:07 Dose: 300 mg Collagenase (Santyl -) 1 applic TP DAILY [facility] Diltiazem HCl (Cardizem Cd -) 120 mg PO DAILY [facility] Last Admin: 12/28/17 11:28 Dose: 120 mg Diphenhydramine HCl (Benadryl -) 25 mg PO Q6H PRN PRN Reason: FOR ITCHING Docusate Sodium (Colace -) 300 mg PO HS [facility] Last Admin: 12/27/17 21:50 Dose: 300 mg Fluocinonide (Lidex 0.05% Cream -) 1 applic TP BID [facility] Last Admin: 12/28/17 13:18 Dose: Not Given Folic Acid (Folic Acid -) 1 mg PO DAILY [facility] Last Admin: 12/28/17 13:08 Dose: 1 mg Hydroxyzine HCl (Atarax -) 10 mg PO Q6HPO [facility] Last Admin: 12/28/17 13:08 Dose: 10 mg Insulin Aspart (Novolog Vial Sliding Scale -) 1 vial SQ TIDAC [facility] PRN Reason: Protocol Last Admin: 12/28/17 12:08 Dose: 2 units Insulin Detemir (Levemir Vial) 10 units SQ BID@0700,2200 [facility] Last Admin: 12/28/17 06:33 Dose: 10 units Lactic Acid (Lac-Hydrin 12) 1 applic TP ASDIR [facility] Last Admin: 12/28/17 13:18 Dose: 1 applic Levothyroxine Sodium (Synthroid -) 25 mcg PO AM [facility] Last Admin: 12/28/17 06:34 Dose: 25 mcg Magnesium Hydroxide (Milk Of Magnesia -) 30 ml PO DAILY PRN PRN Reason: CONSTIPATION Magnesium Oxide (Mag-Ox -) 400 mg PO BID [facility] Last Admin: 12/28/17 11:30 Dose: 400 mg Morphine Sulfate (Msir -) 15 mg PO BID [facility] Last Admin: 12/28/17 09:03 Dose: 15 mg Multivitamins (Total B With C -) 1 each PO DAILY [facility] Last Admin: 12/28/17 13:09 Dose: 1 each Non-Formulary Medication (Nilotinib Hcl [Tasigna]) 300 mg PO BID [facility] Last Admin: 12/28/17 11:30 Dose: 300 mg Ondansetron HCl (Zofran Injection) 4 mg IVPUSH Q6H PRN PRN Reason: NAUSEA AND/OR VOMITING Oxycodone HCl (Roxicodone -) 10 mg PO Q4H PRN PRN Reason: PAIN Last Admin: 12/28/17 06:34 Dose: 10 mg Oxymetazoline HCl (Afrin -) 1 spray NS BID [facility] Last Admin: 12/27/17 21:52 Dose: 1 drop Pantoprazole Sodium (Protonix -) 40 mg PO DAILY [facility] Last Admin: 12/28/17 13:08 Dose: 40 mg Polyethylene Glycol (Miralax (For Daily Use) -) 17 gm PO DAILY [facility] Promethazine HCl (Phenergan Injection -) 12.5 mg IVPUSH Q6H PRN PRN Reason: NAUSEA-FOR RESCUE AFTER 15 MIN Pyridoxine HCl (Vitamin B6 -) 100 mg PO DAILY [facility] Last Admin: 12/28/17 13:08 Dose: 100 mg Senna (Senna -) 2 tab PO DAILY [facility] Last Admin: 12/28/17 11:27 Dose: 2 tab Torsemide (Demadex -) 20 mg PO DAILY [facility] Last Admin: 12/28/17 11:27 Dose: 20 mg - Objective Vital Signs: Vital Signs Temperature 98.1 F 12/28/17 13:33 Pulse Rate 70 12/28/17 13:33 Respiratory Rate 17 12/28/17 13:33 Blood Pressure 126/44 12/28/17 13:33 O2 Sat by Pulse Oximetry (%) 94 L 12/28/17 09:00 Constitutional: Yes: No Distress, Calm Cardiovascular: Yes: Regular Rate and Rhythm Respiratory: Yes: Regular, CTA Bilaterally Gastrointestinal: Yes: Normal Bowel Sounds, Soft Musculoskeletal: Yes: WNL Extremities: Yes: Other Wound/Incision: Yes: Dressing Dry and Intact Neurological: Yes: Alert, Oriented Labs: CBC, BMP 12/28/17 06:35 12/28/17 06:35 INR, PTT INR 3.36 (0.82-1.09) H 12/28/17 06:35 Assessment/Plan Problem List - Problems (1) Ulcer of left lower extremity Code(s): L97.929 - NON-PRS CHRONIC ULC UNSP PRT OF L LOW LEG W UNSP SEVERITY Qualifiers: Non-pressure ulcer stage: limited to breakdown of skin Qualified Code(s): L97.921 - Non-pressure chronic ulcer of unspecified part of left lower leg limited to breakdown of skin (2) Cellulitis of leg, left Code(s): L03.116 - CELLULITIS OF LEFT LOWER LIMB (3) A-fib Code(s): I48.91 - UNSPECIFIED ATRIAL FIBRILLATION Qualifiers: Atrial fibrillation type: chronic Qualified Code(s): I48.2 - Chronic atrial fibrillation (4) COPD (chronic obstructive pulmonary disease) Code(s): J44.9 - CHRONIC OBSTRUCTIVE PULMONARY DISEASE, UNSPECIFIED (5) HTN (hypertension) Code(s): I10 - ESSENTIAL (PRIMARY) HYPERTENSION (6) T2DM (type 2 diabetes mellitus) Code(s): E11.9 - TYPE 2 DIABETES MELLITUS WITHOUT COMPLICATIONS Qualifiers: Diabetes mellitus complication detail: with unspecified neuropathy (7) Acute kidney injury superimposed on CKD Code(s): N17.9 - ACUTE KIDNEY FAILURE, UNSPECIFIED; N18.9 - CHRONIC KIDNEY DISEASE, UNSPECIFIED (8) Chronic anemia Code(s): D64.9 - ANEMIA, UNSPECIFIED (9) CHF (congestive heart failure) Code(s): I50.9 - HEART FAILURE, UNSPECIFIED Qualifiers: Qualified Code(s): I50.32 - Chronic diastolic (congestive) heart failure (10) COPD (chronic obstructive pulmonary disease) Code(s): J44.9 - CHRONIC OBSTRUCTIVE PULMONARY DISEASE, UNSPECIFIED (11) CML (chronic myelocytic leukemia) Code(s): C92.10 - CHRONIC MYELOID LEUK, BCR/ABL-POSITIVE, NOT ACHIEVE REMIS plan continue abx wound care await for cx report rest as per the team
[2017-12-28] MEDS: POLYETHYLENE GLYCOL 3350 119 GM BTL PO SCH (15:45)
[2017-12-28] MEDS: AMINO ACIDS/PROTEIN HYDROLYS 30 ML LIQUID.PKT PO SCH (15:45)
[2017-12-28] MEDS: OXYMETAZOLINE 0.05% NASAL SOLUTION 15 ML BOTTLE NS SCH ×2 (15:46→21:41)
[2017-12-28] MEDS: COLLAGENASE CLOSTRIDIUM HIST. 30 GRAMS TUBE TP SCH (18:20)
[2017-12-28] MEDS: DOCUSATE SODIUM 100 MG CAPSULE (FP) PO SCH (21:42)
[2017-12-29] MEDS: oxyCODONE HCL 5 MG TABLET PO PRN ×5 (01:19→22:03)
[2017-12-29] MEDS: CLINDAMYCIN HCL 150 MG CAPSULE (FP) PO SCH ×2 (06:46→12:53)
[2017-12-29] MEDS: hydrOXYzine HCL 10 MG TABLET PO SCH ×3 (06:46→17:24)
[2017-12-29] MEDS: LEVOTHYROXINE NA 25 MCG TABLET (FP) PO SCH (06:46)
[2017-12-29] MEDS: INSULIN SLIDING SCALE (NOVOLOG) 1 VIAL SQ SCH ×3 (06:47→17:39)
[2017-12-29] MEDS: INSULIN (LEVEMIR) 100 UNITS/ML UNITS SQ SCH ×2 (06:48→23:58)
[2017-12-29] MEDS ORDERED: INSULIN (NOVOLOG) ASPART 100 UNITS/ML 10ML VIAL ONE (06:57)
[2017-12-29 07:29] LABS: BASO % 0.2 % (0-2.0); EOS % 5.2 % (0-4.5); HEMOGLOBIN 7.7 GM/dL (10.7-15.3); LYMPH % 13.8 % (8-40); MCHC 33.3 g/dl (32.0-36.0); MEAN CELL VOLUME 86.9 fl (80-96); MEAN PLT VOLUME 7.7 fl (7.5-11.1); MONO % 6.8 % (3.8-10.2); PLATELET COUNT 273 K/MM3 (134-434); RBC 2.64 M/mm3 (3.60-5.2); RDW 16.9 % (11.6-15.6); WHITE BLOOD COUNT 6.2 K/mm3 (4.0-10.0)
[2017-12-29] MEDS: ALBUTEROL SO4 2.5/IPRATROPIUM 0.5 INH SOL 3 ML VIAL.NEB. NEB SCH ×4 (07:45→21:00)
[2017-12-29 08:11] LABS: INR 3.35 (0.82-1.09); PROTHROMBIN TIME (PATIENT) 37.9 SEC (9.7-13.0)
[2017-12-29 08:15] LABS: ANION GAP 8 (8-16); BLOOD UREA NITROGEN 52 mg/dL (7-18); CALCIUM 8.2 mg/dL (8.5-10.1); CHLORIDE 105 mmol/L (98-107); CO2 27 mmol/L (21-32); CREATININE 1.3 mg/dL (0.55-1.02); GLUCOSE,RANDOM 95 mg/dL (74-106); MAGNESIUM 2.5 mg/dL (1.8-2.4); PHOSPHOROUS 4.2 mg/dL (2.5-4.9); POTASSIUM 5.1 mmol/L (3.5-5.1); SODIUM 140 mmol/L (136-145)
[2017-12-29] MEDS: morphine SULFATE IMMEDIATE RELEASE 30 MG TAB PO SCH ×2 (10:37→23:52)
[2017-12-29] MEDS: SENNOSIDES 8.6MG TABLET (FP) PO SCH (10:38)
[2017-12-29] MEDS: OXYMETAZOLINE 0.05% NASAL SOLUTION 15 ML BOTTLE NS SCH ×2 (10:39→23:51)
[2017-12-29] MEDS: PANTOPRAZOLE 40 MG TABLET (FP) PO SCH (10:39)
[2017-12-29] MEDS: FOLIC ACID 1 MG TABLET (FP) PO SCH (10:40)
[2017-12-29] MEDS: MAGNESIUM OXIDE 400 MG TABLET (FP) PO SCH ×2 (10:40→23:52)
[2017-12-29] MEDS: NILOTINIB HCL 300 MG PO SCH ×2 (10:41→23:58)
[2017-12-29] MEDS: TORSEMIDE 20 MG TABLET (FP) PO SCH (10:41)
[2017-12-29] MEDS: ARTIFICIAL TEARS (POLYVINYL ALCOHOL 1.4%) OPTH DROPS OU SCH ×4 (10:41→23:53)
[2017-12-29] MEDS: AMINO ACIDS/PROTEIN HYDROLYS 30 ML LIQUID.PKT PO SCH (10:42)
--- NOTE | 2017-12-29 11:50 | PN ---
Progress Note (short form) - Note Progress Note: POD #2 Alert. No acute events per RN notes. Doing well. Adequate pain control via PRN meds. On Clindamycin. Denies n/v/f/c Last Vital Signs Temp Pulse Resp BP Pulse Ox 97.5 F L 61 20 118/57 97 12/29/17 06:00 12/29/17 06:00 12/29/17 06:00 12/29/17 06:00 12/28/17 21:00 CBC, BMP 12/29/17 06:00 12/29/17 06:00 Microbiology 12/24/17 13:00 LLE intra-op wound culture - Final Diphtheroid/Corynebacterium Strep Agalactiae Group B PE Gen:nad LLE: dressing c/d/i (changed prior too my arrival) Problem List - Problems (1) Cellulitis of leg, left Assessment/Plan: POD #2 s/p Left calf I&D of abscess, excisional debridement skin, subcutanous tissue left calf dressing changes as ordered ID following and await their input regarding choice of abx based upon FINAL cultures which grew out: Diphtheroid/Corynebacterium Strep Agalactiae Group B Code(s): L03.116 - CELLULITIS OF LEFT LOWER LIMB
[2017-12-29] MEDS ORDERED: PT OWN MED DRAWER 7, Y5N ONE ×5 (12:42→23:56)
[2017-12-29] MEDS: FLUOCINONIDE 0.05% CREAM (60 GM TUBE) TP SCH ×2 (13:16→23:50)
[2017-12-29] MEDS: AMMONIUM LACTATE 12% LOTION 225 GM BOTTLE TP SCH (13:29)
--- NOTE | 2017-12-29 14:16 | PN ---
Progress Note, Physician History of Present Illness: stable doing well dressing changed last evening has developed a rash now wound had pus which was drained by surgery - Current Medication List Current Medications: Active Medications Acetaminophen (Tylenol -) 650 mg PO Q6H PRN PRN Reason: FEVER Last Admin: 12/28/17 17:24 Dose: 650 mg Albuterol/Ipratropium (Duoneb -) 1 amp NEB RQID [facility] Last Admin: 12/29/17 07:45 Dose: 1 amp Amino Acids (Prosource No Carb Liquid Pkt) 30 ml PO DAILY [facility] Last Admin: 12/29/17 10:42 Dose: 30 ml Artificial Tears (Artificial Tears) 1 drop OU QID [facility] Last Admin: 12/29/17 10:41 Dose: 1 drop Ascorbic Acid (Vitamin C -) 500 mg PO DAILY [facility] Last Admin: 12/28/17 13:09 Dose: 500 mg Bisacodyl (Dulcolax Suppository -) 10 mg RC DAILY PRN PRN Reason: CONSTIPATION Camphor/Menthol (Sarna Anti-Itch -) 1 applic TP PRN PRN PRN Reason: FOR ITCHING Clindamycin HCl (Cleocin -) 300 mg PO Q6HPO [facility] Last Admin: 12/29/17 12:53 Dose: 300 mg Collagenase (Santyl -) 1 applic TP DAILY [facility] Last Admin: 12/28/17 18:20 Dose: 1 applic Diltiazem HCl (Cardizem Cd -) 120 mg PO DAILY [facility] Last Admin: 12/29/17 10:40 Dose: 120 mg Diphenhydramine HCl (Benadryl -) 25 mg PO Q6H PRN PRN Reason: FOR ITCHING Docusate Sodium (Colace -) 300 mg PO HS [facility] Last Admin: 12/28/17 21:42 Dose: 300 mg Fluocinonide (Lidex 0.05% Cream -) 1 applic TP BID [facility] Last Admin: 12/29/17 13:16 Dose: Not Given Folic Acid (Folic Acid -) 1 mg PO DAILY [facility] Last Admin: 12/29/17 10:40 Dose: 1 mg Hydroxyzine HCl (Atarax -) 10 mg PO Q6HPO [facility] Last Admin: 12/29/17 12:53 Dose: 10 mg Insulin Aspart (Novolog Vial Sliding Scale -) 1 vial SQ TIDAC [facility] PRN Reason: Protocol Last Admin: 12/29/17 12:53 Dose: 4 units Insulin Detemir (Levemir Vial) 10 units SQ BID@0700,2200 [facility] Last Admin: 12/29/17 06:48 Dose: 10 units Lactic Acid (Lac-Hydrin 12) 1 applic TP ASDIR [facility] Last Admin: 12/29/17 13:29 Dose: 1 applic Levothyroxine Sodium (Synthroid -) 25 mcg PO AM [facility] Last Admin: 12/29/17 06:46 Dose: 25 mcg Magnesium Hydroxide (Milk Of Magnesia -) 30 ml PO DAILY PRN PRN Reason: CONSTIPATION Magnesium Oxide (Mag-Ox -) 400 mg PO BID [facility] Last Admin: 12/29/17 10:40 Dose: 400 mg Morphine Sulfate (Msir -) 15 mg PO BID [facility] Last Admin: 12/29/17 10:37 Dose: 15 mg Multivitamins (Total B With C -) 1 each PO DAILY [facility] Last Admin: 12/28/17 13:09 Dose: 1 each Non-Formulary Medication (Nilotinib Hcl [Tasigna]) 300 mg PO BID [facility] Last Admin: 12/29/17 10:41 Dose: 300 mg Ondansetron HCl (Zofran Injection) 4 mg IVPUSH Q6H PRN PRN Reason: NAUSEA AND/OR VOMITING Oxycodone HCl (Roxicodone -) 10 mg PO Q4H PRN PRN Reason: PAIN Last Admin: 12/29/17 13:27 Dose: 10 mg Oxymetazoline HCl (Afrin -) 1 spray NS BID [facility] Last Admin: 12/29/17 10:39 Dose: 1 spray Pantoprazole Sodium (Protonix -) 40 mg PO DAILY [facility] Last Admin: 12/29/17 10:39 Dose: 40 mg Polyethylene Glycol (Miralax (For Daily Use) -) 17 gm PO DAILY [facility] Last Admin: 12/28/17 15:45 Dose: 17 gm Promethazine HCl (Phenergan Injection -) 12.5 mg IVPUSH Q6H PRN PRN Reason: NAUSEA-FOR RESCUE AFTER 15 MIN Pyridoxine HCl (Vitamin B6 -) 100 mg PO DAILY [facility] Last Admin: 12/28/17 13:08 Dose: 100 mg Senna (Senna -) 2 tab PO DAILY [facility] Last Admin: 12/29/17 10:38 Dose: 2 tab Torsemide (Demadex -) 20 mg PO DAILY [facility] Last Admin: 12/29/17 10:41 Dose: 20 mg - Objective Vital Signs: Vital Signs Temperature 98.2 F 12/29/17 14:13 Pulse Rate 76 12/29/17 14:13 Respiratory Rate 20 12/29/17 14:13 Blood Pressure 127/62 12/29/17 14:13 O2 Sat by Pulse Oximetry (%) 97 12/28/17 21:00 Constitutional: Yes: No Distress, Calm Cardiovascular: Yes: Regular Rate and Rhythm Respiratory: Yes: Regular, CTA Bilaterally Gastrointestinal: Yes: Normal Bowel Sounds, Soft Musculoskeletal: Yes: WNL Extremities: Yes: Other Integumentary: Yes: Other Wound/Incision: Yes: Dressing Dry and Intact Neurological: Yes: Alert, Oriented Psychiatric: Yes: Alert, Oriented Labs: CBC, BMP 12/29/17 06:00 12/29/17 06:00 INR, PTT INR 3.35 (0.82-1.09) H 12/29/17 06:00 Assessment/Plan Problem List - Problems (1) Ulcer of left lower extremity Code(s): L97.929 - NON-PRS CHRONIC ULC UNSP PRT OF L LOW LEG W UNSP SEVERITY Qualifiers: Non-pressure ulcer stage: limited to breakdown of skin Qualified Code(s): L97.921 - Non-pressure chronic ulcer of unspecified part of left lower leg limited to breakdown of skin (2) Cellulitis of leg, left Code(s): L03.116 - CELLULITIS OF LEFT LOWER LIMB (3) A-fib Code(s): I48.91 - UNSPECIFIED ATRIAL FIBRILLATION Qualifiers: Atrial fibrillation type: chronic Qualified Code(s): I48.2 - Chronic atrial fibrillation (4) COPD (chronic obstructive pulmonary disease) Code(s): J44.9 - CHRONIC OBSTRUCTIVE PULMONARY DISEASE, UNSPECIFIED (5) HTN (hypertension) Code(s): I10 - ESSENTIAL (PRIMARY) HYPERTENSION (6) T2DM (type 2 diabetes mellitus) Code(s): E11.9 - TYPE 2 DIABETES MELLITUS WITHOUT COMPLICATIONS Qualifiers: Diabetes mellitus complication detail: with unspecified neuropathy (7) Acute kidney injury superimposed on CKD Code(s): N17.9 - ACUTE KIDNEY FAILURE, UNSPECIFIED; N18.9 - CHRONIC KIDNEY DISEASE, UNSPECIFIED (8) Chronic anemia Code(s): D64.9 - ANEMIA, UNSPECIFIED (9) CHF (congestive heart failure) Code(s): I50.9 - HEART FAILURE, UNSPECIFIED Qualifiers: Qualified Code(s): I50.32 - Chronic diastolic (congestive) heart failure (10) COPD (chronic obstructive pulmonary disease) Code(s): J44.9 - CHRONIC OBSTRUCTIVE PULMONARY DISEASE, UNSPECIFIED (11) CML (chronic myelocytic leukemia) Code(s): C92.10 - CHRONIC MYELOID LEUK, BCR/ABL-POSITIVE, NOT ACHIEVE REMIS all cx report noted await finalization of the cx plan will change abx to augmentin monitor for the rash wound care rest as per the team
[2017-12-29] MEDS: ACETAMINOPHEN 325 MG TABLET (FP) PO PRN (15:02)
--- NOTE | 2017-12-29 15:42 | PATH ---
Surgical Pathology Report Patient Name: XIAO HAGEN Med. Rec. #: [id number] /Age/Gender: 1950 (Age: 67) / F Account: [id number] Location: [address] [place] [address]/[facility] Taken: 12/27/2017 Received: 12/27/2017 Reported: 12/29/2017 Physicians: Meghna Durham M.D. Specimen(s) Received DEBRIDED TISSUE OF LEFT CALF Clinical History Debrided tissue left calf Final Diagnosis CALF, LEFT, DEBRIDED TISSUE, EXCISION: ACUTE INFLAMMATORY EXUDATE, FIBROADIPOSE TISSUE WITH MARKED ACUTE AND CHRONIC NECROTIZING INFLAMMATION, REACTIVE CHANGES AND DYSTROPHIC CALCIFICATIONS. Electronically Signed Alivia Madrigal M.D. Gross Description Received in formalin labeled "debrided tissue left calf," is a 2.5 x 0.8 x 0.3 cm aggregate of mcnamara fragments of necrotic soft tissue. The specimen is entirely submitted in one cassette. /12/27/2017 [facility]12/27/2017
--- NOTE | 2017-12-29 16:22 | PN ---
Progress Note, Physician Chief Complaint: Ms Hernandez complains of itching. No cp, sob, n/v. - Current Medication List Current Medications: Active Medications Acetaminophen (Tylenol -) 650 mg PO Q6H PRN PRN Reason: FEVER Last Admin: 12/29/17 15:02 Dose: 650 mg Albuterol/Ipratropium (Duoneb -) 1 amp NEB RQID [facility] Last Admin: 12/29/17 12:00 Dose: 1 amp Amino Acids (Prosource No Carb Liquid Pkt) 30 ml PO DAILY [facility] Last Admin: 12/29/17 10:42 Dose: 30 ml Amoxicillin/Clavulanate Potassium (Augmentin - 500mg Tablet) 1 tab PO BID@0800, 1730 [facility] Artificial Tears (Artificial Tears) 1 drop OU QID [facility] Last Admin: 12/29/17 10:41 Dose: 1 drop Ascorbic Acid (Vitamin C -) 500 mg PO DAILY [facility] Last Admin: 12/28/17 13:09 Dose: 500 mg Bisacodyl (Dulcolax Suppository -) 10 mg RC DAILY PRN PRN Reason: CONSTIPATION Camphor/Menthol (Sarna Anti-Itch -) 1 applic TP PRN PRN PRN Reason: FOR ITCHING Clindamycin HCl (Cleocin -) 300 mg PO Q6HPO [facility] Last Admin: 12/29/17 12:53 Dose: 300 mg Diltiazem HCl (Cardizem Cd -) 120 mg PO DAILY [facility] Last Admin: 12/29/17 10:40 Dose: 120 mg Diphenhydramine HCl (Benadryl -) 25 mg PO Q6H PRN PRN Reason: FOR ITCHING Docusate Sodium (Colace -) 300 mg PO HS [facility] Last Admin: 12/28/17 21:42 Dose: 300 mg Fluocinonide (Lidex 0.05% Cream -) 1 applic TP BID [facility] Last Admin: 12/29/17 13:16 Dose: Not Given Folic Acid (Folic Acid -) 1 mg PO DAILY [facility] Last Admin: 12/29/17 10:40 Dose: 1 mg Hydroxyzine HCl (Atarax -) 10 mg PO Q6HPO [facility] Last Admin: 12/29/17 12:53 Dose: 10 mg Insulin Aspart (Novolog Vial Sliding Scale -) 1 vial SQ TIDAC [facility] PRN Reason: Protocol Last Admin: 12/29/17 12:53 Dose: 4 units Insulin Detemir (Levemir Vial) 10 units SQ BID@0700,2200 [facility] Last Admin: 12/29/17 06:48 Dose: 10 units Lactic Acid (Lac-Hydrin 12) 1 applic TP ASDIR [facility] Last Admin: 12/29/17 13:29 Dose: 1 applic Levothyroxine Sodium (Synthroid -) 25 mcg PO AM [facility] Last Admin: 12/29/17 06:46 Dose: 25 mcg Magnesium Hydroxide (Milk Of Magnesia -) 30 ml PO DAILY PRN PRN Reason: CONSTIPATION Magnesium Oxide (Mag-Ox -) 400 mg PO BID [facility] Last Admin: 12/29/17 10:40 Dose: 400 mg Morphine Sulfate (Msir -) 15 mg PO BID [facility] Last Admin: 12/29/17 10:37 Dose: 15 mg Multivitamins (Total B With C -) 1 each PO DAILY [facility] Last Admin: 12/28/17 13:09 Dose: 1 each Non-Formulary Medication (Nilotinib Hcl [Tasigna]) 300 mg PO BID [facility] Last Admin: 12/29/17 10:41 Dose: 300 mg Ondansetron HCl (Zofran Injection) 4 mg IVPUSH Q6H PRN PRN Reason: NAUSEA AND/OR VOMITING Oxycodone HCl (Roxicodone -) 10 mg PO Q4H PRN PRN Reason: PAIN Last Admin: 12/29/17 13:27 Dose: 10 mg Oxymetazoline HCl (Afrin -) 1 spray NS BID [facility] Last Admin: 12/29/17 10:39 Dose: 1 spray Pantoprazole Sodium (Protonix -) 40 mg PO DAILY [facility] Last Admin: 12/29/17 10:39 Dose: 40 mg Polyethylene Glycol (Miralax (For Daily Use) -) 17 gm PO DAILY [facility] Last Admin: 12/28/17 15:45 Dose: 17 gm Promethazine HCl (Phenergan Injection -) 12.5 mg IVPUSH Q6H PRN PRN Reason: NAUSEA-FOR RESCUE AFTER 15 MIN Pyridoxine HCl (Vitamin B6 -) 100 mg PO DAILY [facility] Last Admin: 12/28/17 13:08 Dose: 100 mg Senna (Senna -) 2 tab PO DAILY [facility] Last Admin: 04/27/18 10:38 Dose: 2 tab Torsemide (Demadex -) 20 mg PO DAILY [facility] Last Admin: 12/29/17 10:41 Dose: 20 mg - Objective Vital Signs: Vital Signs Temperature 36.8 C 12/29/17 14:13 Pulse Rate 76 12/29/17 14:13 Respiratory Rate 20 12/29/17 14:13 Blood Pressure 127/62 12/29/17 14:13 O2 Sat by Pulse Oximetry (%) 96 12/29/17 09:00 Constitutional: Yes: No Distress, Calm, Obese Cardiovascular: Yes: Regular Rate and Rhythm. No: Gallop, Murmur Respiratory: Yes: Regular, CTA Bilaterally. No: Rales, Rhonchi, Wheezes Gastrointestinal: Yes: Normal Bowel Sounds, Soft. No: Distention, Tenderness Extremities: Yes: WNL Edema: Yes Edema: LLE: 1+, RLE: 1+ Integumentary: Yes: Rash Labs: CBC, BMP 12/29/17 06:00 12/29/17 06:00 INR, PTT INR 3.35 (0.82-1.09) H 12/29/17 06:00 Problem List - Problems (1) Ulcer of left lower extremity Code(s): L97.929 - NON-PRS CHRONIC ULC UNSP PRT OF L LOW LEG W UNSP SEVERITY Qualifiers: Non-pressure ulcer stage: limited to breakdown of skin Qualified Code(s): L97.921 - Non-pressure chronic ulcer of unspecified part of left lower leg limited to breakdown of skin (2) Cellulitis of leg, left Code(s): L03.116 - CELLULITIS OF LEFT LOWER LIMB (3) A-fib Code(s): I48.91 - UNSPECIFIED ATRIAL FIBRILLATION Qualifiers: Atrial fibrillation type: chronic Qualified Code(s): I48.2 - Chronic atrial fibrillation (4) COPD (chronic obstructive pulmonary disease) Code(s): J44.9 - CHRONIC OBSTRUCTIVE PULMONARY DISEASE, UNSPECIFIED (5) HTN (hypertension) Code(s): I10 - ESSENTIAL (PRIMARY) HYPERTENSION (6) T2DM (type 2 diabetes mellitus) Code(s): E11.9 - TYPE 2 DIABETES MELLITUS WITHOUT COMPLICATIONS Qualifiers: Diabetes mellitus complication detail: with unspecified neuropathy (7) Acute kidney injury superimposed on CKD Code(s): N17.9 - ACUTE KIDNEY FAILURE, UNSPECIFIED; N18.9 - CHRONIC KIDNEY DISEASE, UNSPECIFIED (8) Chronic anemia Code(s): D64.9 - ANEMIA, UNSPECIFIED (9) CHF (congestive heart failure) Code(s): I50.9 - HEART FAILURE, UNSPECIFIED (10) COPD (chronic obstructive pulmonary disease) Code(s): J44.9 - CHRONIC OBSTRUCTIVE PULMONARY DISEASE, UNSPECIFIED (11) CML (chronic myelocytic leukemia) Code(s): C92.10 - CHRONIC MYELOID LEUK, BCR/ABL-POSITIVE, NOT ACHIEVE REMIS (12) Heel ulcer due to DM Code(s): E11.621 - TYPE 2 DIABETES MELLITUS WITH FOOT ULCER; L97.409 - NON-PRS CHRONIC ULCER OF UNSP HEEL AND MIDFOOT W UNSP SEVERT Qualifiers: Diabetes mellitus type: type 2 Laterality: left Non-pressure ulcer stage : with fat layer exposed Qualified Code(s): E11.621 - Type 2 diabetes mellitus with foot ulcer; L97.422 - Non-pressure chronic ulcer of left heel and midfoot with fat layer exposed; L97.422 - Non-pressure chronic ulcer of left heel and midfoot with fat layer exposed; L97.422 - Non-pressure chronic ulcer of left heel and midfoot with fat layer exposed; L97.422 - Non-pressure chronic ulcer of left heel and midfoot with fat layer exposed Assessment/Plan (1) Ulcer of left lower extremity Assessment/Plan: -s/p debridement -case d/w Dr Pena -change to augmentin secondary to drug eruption -plan for discharge tomorrow Code(s): L97.929 - NON-PRS CHRONIC ULC UNSP PRT OF L LOW LEG W UNSP SEVERITY Qualifiers: Non-pressure ulcer stage: limited to breakdown of skin Qualified Code(s): L97.921 - Non-pressure chronic ulcer of unspecified part of left lower leg limited to breakdown of skin (2) Cellulitis of leg, left Assessment/Plan: -change antibiotics to augmentin Code(s): L03.116 - CELLULITIS OF LEFT LOWER LIMB (3) A-fib Assessment/Plan: -rate controlled -INR supratherapeutic but no hemorrhage, hold coumadin -continue diltiazem Code(s): I48.91 - UNSPECIFIED ATRIAL FIBRILLATION Qualifiers: Atrial fibrillation type: chronic Qualified Code(s): I48.2 - Chronic atrial fibrillation (4) COPD (chronic obstructive pulmonary disease) Assessment/Plan: -not in exacerbation -continue duonebs Code(s): J44.9 - CHRONIC OBSTRUCTIVE PULMONARY DISEASE, UNSPECIFIED (5) HTN (hypertension) Assessment/Plan: -controlled -continue current regimen Code(s): I10 - ESSENTIAL (PRIMARY) HYPERTENSION (6) T2DM (type 2 diabetes mellitus) Assessment/Plan: -on humalog SSI at -HgbA1c is 6.9 -continue current regimen Code(s): E11.9 - TYPE 2 DIABETES MELLITUS WITHOUT COMPLICATIONS Qualifiers: Diabetes mellitus complication detail: with unspecified neuropathy (7) Acute kidney injury superimposed on CKD Assessment/Plan: -stable -will continue torsemide, may need to hold it if creatinine increases Code(s): N17.9 - ACUTE KIDNEY FAILURE, UNSPECIFIED; N18.9 - CHRONIC KIDNEY DISEASE, UNSPECIFIED (8) Chronic anemia Assessment/Plan: -stable -monitor Code(s): D64.9 - ANEMIA, UNSPECIFIED (9) CHF (congestive heart failure) Assessment/Plan: -not in exacerbation -continue torsemide Code(s): I50.9 - HEART FAILURE, UNSPECIFIED Qualifiers: Qualified Code(s): I50.32 - Chronic diastolic (congestive) heart failure (10) COPD (chronic obstructive pulmonary disease) Assessment/Plan: -continue duonebs Code(s): J44.9 - CHRONIC OBSTRUCTIVE PULMONARY DISEASE, UNSPECIFIED (11) CML (chronic myelocytic leukemia) Assessment/Plan: -continue tasigna Code(s): C92.10 - CHRONIC MYELOID LEUK, BCR/ABL-POSITIVE, NOT ACHIEVE REMIS (12) L heel ulcer -appreciate podiatry assistance
[2017-12-29] MEDS: POLYETHYLENE GLYCOL 3350 119 GM BTL PO SCH (17:15)
[2017-12-29] MEDS: ASCORBIC ACID 500 MG TABLET (FP) PO SCH (17:24)
[2017-12-29] MEDS: VITAMIN B COMPLEX W/C COMBO TABLET (FP) PO SCH (17:25)
[2017-12-29] MEDS: AMOX TR/POT CLAV 500MG/125MG TABLETS (FP) PO SCH (17:26)
[2017-12-29] MEDS: PYRIDOXINE HCL (B-6) 50 MG TABLET (FP) PO SCH (17:38)
[2017-12-29] MEDS: COLLAGENASE CLOSTRIDIUM HIST. 30 GRAMS TUBE TP SCH ×2 (18:26→18:33)
[2017-12-29] MEDS: DOCUSATE SODIUM 100 MG CAPSULE (FP) PO SCH (23:51)
[2017-12-30] MEDS: oxyCODONE HCL 5 MG TABLET PO PRN ×3 (02:02→13:38)
[2017-12-30] MEDS: hydrOXYzine HCL 10 MG TABLET PO SCH ×3 (02:03→12:20)
[2017-12-30] MEDS ORDERED: INSULIN (NOVOLOG) ASPART 100 UNITS/ML 10ML VIAL ONE (06:09)
[2017-12-30] MEDS: LEVOTHYROXINE NA 25 MCG TABLET (FP) PO SCH (06:18)
[2017-12-30] MEDS: INSULIN (LEVEMIR) 100 UNITS/ML UNITS SQ SCH (06:22)
[2017-12-30] MEDS: INSULIN SLIDING SCALE (NOVOLOG) 1 VIAL SQ SCH ×2 (06:24→12:19)
[2017-12-30] MEDS: ALBUTEROL SO4 2.5/IPRATROPIUM 0.5 INH SOL 3 ML VIAL.NEB. NEB SCH ×3 (08:00→15:50)
[2017-12-30 08:09] LABS: BASO % 0.2 % (0-2.0); EOS % 5.7 % (0-4.5); HEMATOCRIT 22.1 % (32.4-45.2); HEMOGLOBIN 7.5 GM/dL (10.7-15.3); LYMPH % 13.6 % (8-40); MCH 29.1 pg (25.7-33.7); MCHC 33.8 g/dl (32.0-36.0); MEAN PLT VOLUME 7.5 fl (7.5-11.1); MONO % 6.6 % (3.8-10.2); NEUT % 73.9 % (42.8-82.8); PLATELET COUNT 239 K/MM3 (134-434); RBC 2.56 M/mm3 (3.60-5.2); RDW 16.8 % (11.6-15.6); WHITE BLOOD COUNT 5.7 K/mm3 (4.0-10.0)
[2017-12-30 08:22] LABS: INR 3.23 (0.82-1.09); PROTHROMBIN TIME (PATIENT) 36.5 SEC (9.7-13.0)
[2017-12-30 08:45] LABS: ANION GAP 4 (8-16); BLOOD UREA NITROGEN 43 mg/dL (7-18); CALCIUM 7.6 mg/dL (8.5-10.1); CHLORIDE 108 mmol/L (98-107); CO2 28 mmol/L (21-32); CREATININE 1.1 mg/dL (0.55-1.02); GLUCOSE,RANDOM 113 mg/dL (74-106); MAGNESIUM 2.4 mg/dL (1.8-2.4); PHOSPHOROUS 4.1 mg/dL (2.5-4.9); POTASSIUM 4.9 mmol/L (3.5-5.1); SODIUM 140 mmol/L (136-145)
[2017-12-30] MEDS ORDERED: PT OWN MED DRAWER 7, Y5N ONE ×6 (09:13→16:35)
[2017-12-30] MEDS: AMOX TR/POT CLAV 500MG/125MG TABLETS (FP) PO SCH (09:16)
[2017-12-30] MEDS: morphine SULFATE IMMEDIATE RELEASE 30 MG TAB PO SCH (10:36)
[2017-12-30 10:52] VITALS: TEMP 97.9
[2017-12-30] MEDS: ASCORBIC ACID 500 MG TABLET (FP) PO SCH (10:53)
[2017-12-30] MEDS: PANTOPRAZOLE 40 MG TABLET (FP) PO SCH (10:53)
[2017-12-30] MEDS: SENNOSIDES 8.6MG TABLET (FP) PO SCH (10:53)
[2017-12-30] MEDS: PYRIDOXINE HCL (B-6) 50 MG TABLET (FP) PO SCH (10:54)
[2017-12-30] MEDS: AMINO ACIDS/PROTEIN HYDROLYS 30 ML LIQUID.PKT PO SCH (10:54)
[2017-12-30] MEDS: ARTIFICIAL TEARS (POLYVINYL ALCOHOL 1.4%) OPTH DROPS OU SCH ×3 (10:54→14:45)
[2017-12-30] MEDS: FOLIC ACID 1 MG TABLET (FP) PO SCH (10:54)
[2017-12-30] MEDS: MAGNESIUM OXIDE 400 MG TABLET (FP) PO SCH (10:54)
[2017-12-30] MEDS: OXYMETAZOLINE 0.05% NASAL SOLUTION 15 ML BOTTLE NS SCH ×2 (10:55→11:09)
[2017-12-30] MEDS: TORSEMIDE 20 MG TABLET (FP) PO SCH (10:56)
[2017-12-30] MEDS: POLYETHYLENE GLYCOL 3350 119 GM BTL PO SCH ×2 (10:56→12:20)
[2017-12-30] MEDS: VITAMIN B COMPLEX W/C COMBO TABLET (FP) PO SCH (10:57)
[2017-12-30] MEDS: NILOTINIB HCL 300 MG PO SCH (11:02)
[2017-12-30] MEDS: FLUOCINONIDE 0.05% CREAM (60 GM TUBE) TP SCH (12:22)
--- NOTE | 2017-12-30 13:10 | PN ---
Progress Note, Physician History of Present Illness: Pt seen and examined. States she feels better. Much less pain in left leg since admission. Still has mild pruritis from allergic reaction but reports less erythema. Has no specific complaints. - Current Medication List Current Medications: Active Medications Acetaminophen (Tylenol -) 650 mg PO Q6H PRN PRN Reason: FEVER Last Admin: 12/29/17 15:02 Dose: 650 mg Albuterol/Ipratropium (Duoneb -) 1 amp NEB RQID [facility] Last Admin: 12/30/17 11:32 Dose: 1 amp Amino Acids (Prosource No Carb Liquid Pkt) 30 ml PO DAILY [facility] Last Admin: 12/30/17 10:54 Dose: 30 ml Amoxicillin/Clavulanate Potassium (Augmentin - 500mg Tablet) 1 tab PO BID@0800, 1730 [facility] Last Admin: 12/30/17 09:16 Dose: 1 tab Artificial Tears (Artificial Tears) 1 drop OU QID [facility] Last Admin: 12/30/17 11:05 Dose: Not Given Ascorbic Acid (Vitamin C -) 500 mg PO DAILY [facility] Last Admin: 12/30/17 10:53 Dose: 500 mg Bisacodyl (Dulcolax Suppository -) 10 mg RC DAILY PRN PRN Reason: CONSTIPATION Camphor/Menthol (Sarna Anti-Itch -) 1 applic TP PRN PRN PRN Reason: FOR ITCHING Collagenase (Santyl -) 1 applic TP DAILY [facility] Last Admin: 12/29/17 18:33 Dose: Not Given Diltiazem HCl (Cardizem Cd -) 120 mg PO DAILY [facility] Last Admin: 12/30/17 10:53 Dose: 120 mg Diphenhydramine HCl (Benadryl -) 25 mg PO Q6H PRN PRN Reason: FOR ITCHING Docusate Sodium (Colace -) 300 mg PO HS [facility] Last Admin: 12/29/17 23:51 Dose: 300 mg Fluocinonide (Lidex 0.05% Cream -) 1 applic TP BID [facility] Last Admin: 12/30/17 12:22 Dose: 1 applic Folic Acid (Folic Acid -) 1 mg PO DAILY [facility] Last Admin: 12/30/17 10:54 Dose: 1 mg Hydroxyzine HCl (Atarax -) 10 mg PO Q6HPO [facility] Last Admin: 12/30/17 12:20 Dose: 10 mg Insulin Aspart (Novolog Vial Sliding Scale -) 1 vial SQ TIDAC [facility] PRN Reason: Protocol Last Admin: 12/30/17 12:19 Dose: Not Given Insulin Detemir (Levemir Vial) 10 units SQ BID@0700,2200 [facility] Last Admin: 12/30/17 06:22 Dose: 10 units Lactic Acid (Lac-Hydrin 12) 1 applic TP ASDIR [facility] Last Admin: 12/29/17 13:29 Dose: 1 applic Levothyroxine Sodium (Synthroid -) 25 mcg PO AM [facility] Last Admin: 12/30/17 06:18 Dose: 25 mcg Magnesium Hydroxide (Milk Of Magnesia -) 30 ml PO DAILY PRN PRN Reason: CONSTIPATION Magnesium Oxide (Mag-Ox -) 400 mg PO BID [facility] Last Admin: 12/30/17 10:54 Dose: 400 mg Morphine Sulfate (Msir -) 15 mg PO BID [facility] Last Admin: 12/30/17 10:36 Dose: 15 mg Multivitamins (Total B With C -) 1 each PO DAILY [facility] Last Admin: 12/30/17 10:57 Dose: 1 each Non-Formulary Medication (Nilotinib Hcl [Tasigna]) 300 mg PO BID [facility] Last Admin: 12/30/17 11:02 Dose: 300 mg Ondansetron HCl (Zofran Injection) 4 mg IVPUSH Q6H PRN PRN Reason: NAUSEA AND/OR VOMITING Oxycodone HCl (Roxicodone -) 10 mg PO Q4H PRN PRN Reason: PAIN Last Admin: 12/30/17 06:13 Dose: 10 mg Oxymetazoline HCl (Afrin -) 1 spray NS BID [facility] Last Admin: 12/30/17 11:09 Dose: Not Given Pantoprazole Sodium (Protonix -) 40 mg PO DAILY [facility] Last Admin: 12/30/17 10:53 Dose: 40 mg Polyethylene Glycol (Miralax (For Daily Use) -) 17 gm PO DAILY [facility] Last Admin: 12/30/17 12:20 Dose: 17 gm Promethazine HCl (Phenergan Injection -) 12.5 mg IVPUSH Q6H PRN PRN Reason: NAUSEA-FOR RESCUE AFTER 15 MIN Pyridoxine HCl (Vitamin B6 -) 100 mg PO DAILY [facility] Last Admin: 12/30/17 10:54 Dose: 100 mg Senna (Senna -) 2 tab PO DAILY [facility] Last Admin: 12/30/17 10:53 Dose: 2 tab Torsemide (Demadex -) 20 mg PO DAILY [facility] Last Admin: 12/30/17 10:56 Dose: 20 mg - Objective Vital Signs: Vital Signs Temperature 97.9 F 12/30/17 10:48 Pulse Rate 67 12/30/17 10:48 Respiratory Rate 20 12/30/17 10:48 Blood Pressure 137/62 12/30/17 10:48 O2 Sat by Pulse Oximetry (%) 96 12/29/17 21:00 Constitutional: Yes: No Distress Cardiovascular: Yes: Regular Rate and Rhythm Respiratory: Yes: Regular Gastrointestinal: Yes: Normal Bowel Sounds, Soft Breast(s): Yes: WNL Musculoskeletal: Yes: WNL Extremities: Yes: Erythema (mild erythema in LLE, minimal warmth. No tenderness. Ulcer s/p debridement, no purulence noted.) Edema: Yes Edema: LLE: 3+, RLE: 3+ Integumentary: Yes: Rash (mildly erythematous, dry skin) Labs: CBC, BMP 12/30/17 07:30 12/30/17 07:30 INR, PTT INR 3.23 (0.82-1.09) H 12/30/17 07:30 Microbiology 12/27/17 11:00 Calf - Left Medial Gram Stain - Final 12/27/17 11:00 Calf - Left Medial Wound Culture - Preliminary Strep Agalactiae Group B 12/23/17 12:15 Blood - Peripheral Venous Blood Culture - Final NO GROWTH AFTER 5 DAYS INCUBATION 12/23/17 12:00 Blood - Peripheral Venous Blood Culture - Final NO GROWTH AFTER 5 DAYS INCUBATION 12/24/17 13:00 Leg - Left Lower Gram Stain - Final 12/24/17 13:00 Leg - Left Lower Wound Culture - Final Diphtheroid/Corynebacterium Strep Agalactiae Group B 12/23/17 12:15 Urine - Urine - Catheterized Urine Culture - Final NO GROWTH OBTAINED Problem List - Problems (1) Acute kidney injury superimposed on CKD Code(s): N17.9 - ACUTE KIDNEY FAILURE, UNSPECIFIED; N18.9 - CHRONIC KIDNEY DISEASE, UNSPECIFIED (2) COPD (chronic obstructive pulmonary disease) Code(s): J44.9 - CHRONIC OBSTRUCTIVE PULMONARY DISEASE, UNSPECIFIED (3) Chronic anemia Code(s): D64.9 - ANEMIA, UNSPECIFIED (4) HTN (hypertension) Code(s): I10 - ESSENTIAL (PRIMARY) HYPERTENSION (5) T2DM (type 2 diabetes mellitus) Code(s): E11.9 - TYPE 2 DIABETES MELLITUS WITHOUT COMPLICATIONS Qualifiers: Diabetes mellitus complication detail: with unspecified neuropathy (6) Ulcer of left lower extremity Code(s): L97.929 - NON-PRS CHRONIC ULC UNSP PRT OF L LOW LEG W UNSP SEVERITY Qualifiers: Non-pressure ulcer stage: limited to breakdown of skin Qualified Code(s): L97.921 - Non-pressure chronic ulcer of unspecified part of left lower leg limited to breakdown of skin (7) Cellulitis of leg, left Code(s): L03.116 - CELLULITIS OF LEFT LOWER LIMB (8) Atrial fibrillation with RVR Code(s): I48.91 - UNSPECIFIED ATRIAL FIBRILLATION (9) Diabetic neuropathy Code(s): E11.40 - TYPE 2 DIABETES MELLITUS WITH DIABETIC NEUROPATHY, UNSP (10) Drug induced rash with eosinophilia and systemic symptoms Code(s): L27.0 - GEN SKIN ERUPTION DUE TO DRUGS AND MEDS TAKEN INTERNALLY; D72.1 - EOSINOPHILIA; T50.905A - ADVERSE EFFECT OF UNSP DRUG/MEDS/BIOL SUBST, INIT Assessment/Plan LLE cellulitis improving LLE ulcer s/p debridement - Strep isolated Rash - appears to be improving -- plan is for d/c home suggest continue Augmentin x 6 more days f/u with wound care pt instructed to seek immediate attention if rash persists, develops fever or abd pain/diarrhea
--- NOTE | 2017-12-30 13:39 | DS ---
Physical Examination Vital Signs: Vital Signs Temperature 97.9 F 12/30/17 10:48 Pulse Rate 67 12/30/17 10:48 Respiratory Rate 20 12/30/17 10:48 Blood Pressure 137/62 12/30/17 10:48 O2 Sat by Pulse Oximetry (%) 96 12/29/17 21:00 Labs: CBC, BMP 12/30/17 07:30 12/30/17 07:30 Discharge Summary Reason For Visit: CELLULITIS OF LOWER EXT Current Active Problems A-fib (Acute) Acute kidney injury superimposed on CKD (Acute) COPD (chronic obstructive pulmonary disease) (Acute) Chronic anemia (Acute) HTN (hypertension) (Acute) T2DM (type 2 diabetes mellitus) (Acute) Ulcer of left lower extremity (Acute) Cellulitis of leg, left (Chronic) Hospital Course: Discussed case with Dr. Sadler who recommends 6 more days of po Augmentin and follow-up in wound care clinic next week. Will need INR rechecked daily, once INR <3, can resume Coumadin 9.5mg po daily Condition: Improved - Instructions Diet, Activity, Other Instructions: Please return to the ED with new, persistent, or worsening symptoms. Please follow-up with providers as indicated. Wound care: Santyl to all wounds daily - Please have your INR checked daily at the long-term facility. Once your INR is less than 3, you may resume Coumadin 9.5mg po daily (home dose) - You MUST complete your full course of antibiotics Referrals: Jono Farmer MD [Staff Physician] - (Please follow-up with podiatry within 3-5 days for further management of your diabetic foot ulcer) Yvon Baker MD [Staff Physician] - (Please follow-up with Dr. Baker in the wound care clinic on Monday, 01/01 for further evaluation of your lower extremity wounds.) Carlito Longo MD [Staff Physician] - 1 Week Disposition: [facility] - Home Medications Comprehensive Discharge Medication List: Ambulatory Orders Aa/Hydrolyzed Collagen, Whey [Lps Neutral Flavor Liquid] 30 ml PO DAILY Acetaminophen [Tylenol] 650 mg PO Q6H PRN 12/23/17 Albuterol 0.083% Nebulizer Pamella [Ventolin 0.083% Nebulizer Soln -] 1 neb NEB QID 12/23/17 Ammonium Lactate Lotion [Lac-Hydrin 12] 1 applic TP ASDIR 12/23/17 Ascorbic Acid [Vitamin C] 500 mg PO DAILY 12/23/17 Bisacodyl Suppository [Dulcolax Suppository -] 10 mg RC DAILY PRN 12/23/17 Dextran 70/Hypromellose [Artificial Tears Eye Drops] 1 drop OU QID 12/23/17 Diltiazem Cd [Cardizem Cd -] 120 mg PO DAILY 12/23/17 Diphenhydramine HCl 25 mg PO Q6H PRN 12/23/17 Docusate Sodium [Colace] 300 mg PO HS 12/23/17 Fluocinonide 0.05% Cream [Lidex 0.05% Cream -] 1 applic TP BID 12/23/17 Folic Acid 1 mg PO DAILY 12/23/17 Hydroxyzine HCl 10 mg PO Q6H 12/23/17 Ipratropium 0.02% Nebulizer [Atrovent 0.02% Nebulizer -] 1 amp NEB TID 12/23/17 Lactobacillus Combo No.11 [Probiotic] 1 each PO TID 12/23/17 Levothyroxine [Synthroid -] 25 mcg PO DAILY 12/23/17 Magnesium 400 mg PO BID 12/23/17 Magnesium Hydroxide [Milk of Magnesia -] 30 ml PO DAILY PRN 12/23/17 Menthol/Camphor [Sarna Anti-Itch Lotion] 1 applic TP PRN PRN 12/23/17 Morphine *Immediate Release* [Msir -] 15 mg PO BID 12/23/17 Nilotinib HCl [Tasigna] 150 mg PO BID 12/23/17 Oxycodone HCl 10 mg PO Q4H PRN 12/23/17 Oxymetazoline HCl [Nasal Randolph] 1 spray NS BID 12/23/17 Pantoprazole Sodium 40 mg PO DAILY 12/23/17 Polyethylene Glycol 3350 [Miralax 119 gm Btl -] 17 gm PO DAILY 12/23/17 Pyridoxine HCl [Vitamin B6] 100 mg PO DAILY 12/23/17 Sennosides [Senna Lax] 2 tab PO DAILY 12/23/17 Torsemide 20 mg PO DAILY 12/23/17 Triamcinolone Acet 0.1% Cream [Aristocort] 0 gm TP BID 12/23/17 Vitamin B Complex 1 each PO DAILY 12/23/17 Albuterol 2.5/Ipratropium 0.5 [Duoneb -] 1 amp NEB RQID amp 12/30/17 Amox-Tr/K Cl [Augmentin 500-125mg Tablet -] 1 tab PO BID@0800,1730 #12 tablet Collagenase Clostridium Hist. [Santyl -] 1 applic TP DAILY tube 12/30/17 Insulin (Levemir) [Levemir Vial] 10 units SQ BID@0700,2200 ml 12/30/17 Insulin Sliding Scale [Novolog Vial Sliding Scale -] 1 vial SQ TIDAC units
[2017-12-30] MEDS: AMMONIUM LACTATE 12% LOTION 225 GM BOTTLE TP SCH (13:43)
[2017-12-30 14:12] VITALS: BP 137/57; PULSE 72
[2017-12-30] MEDS: COLLAGENASE CLOSTRIDIUM HIST. 30 GRAMS TUBE TP SCH (14:56)
[2017-12-30] MEDS ORDERED: oxyCODONE HCL 5 MG TABLET PO ONE ×2 (17:00→18:15)
== END 2017-12-30 18:17 | DRG 623 ==
LOC: JER 10:18 → JERBED 12:17 → J5S 14:51
PROVIDERS: ADMIT Internal Medicine; ATTEND Registered Nurse
PROC: 0Y9J0ZZ Drainage of Left Lower Leg, Open Approach (ICD-10-PCS; 2017-12-27)
PROC: 0JBP0ZZ Excision of Left Lower Leg Subcutaneous Tissue and Fascia, Open Approach (ICD-10-PCS; principal; 2017-12-27 12:00)
DX: E11.622 Type 2 diabetes mellitus with other skin ulcer (principal); C92.10 Chronic myeloid leukemia, BCR/ABL-positive, not having achieved remission; L97.828 Non-pressure chronic ulcer of other part of left lower leg with other specified severity; I13.0 Hypertensive heart and chronic kidney disease with heart failure and stage 1 through stage 4 chronic kidney disease, or unspecified chronic kidney disease; I50.32 Chronic diastolic (congestive) heart failure; L03.116 Cellulitis of left lower limb; L02.416 Cutaneous abscess of left lower limb; N17.9 Acute kidney failure, unspecified; E78.5 Hyperlipidemia, unspecified; D64.9 Anemia, unspecified; I27.20 Pulmonary hypertension, unspecified; E03.9 Hypothyroidism, unspecified; F03.90 Unspecified dementia, unspecified severity, without behavioral disturbance, psychotic disturbance, mood disturbance, and anxiety; M54.5 Low back pain; J44.9 Chronic obstructive pulmonary disease, unspecified; K59.00 Constipation, unspecified; E11.40 Type 2 diabetes mellitus with diabetic neuropathy, unspecified; E11.22 Type 2 diabetes mellitus with diabetic chronic kidney disease; N18.9 Chronic kidney disease, unspecified; I48.2 Chronic atrial fibrillation; L29.8 Other pruritus; L27.0 Generalized skin eruption due to drugs and medicaments taken internally; T50.995A Adverse effect of other drugs, medicaments and biological substances, initial encounter; Y92.238 Other place in hospital as the place of occurrence of the external cause; D72.1 Eosinophilia; Z87.442 Personal history of urinary calculi
CPT/HCPCS: 36415; 71045-TC-FY; 73590-TC-LT-FY; 80048; 80053; 81003; 82962; 83036; 83735; 84100; 85025; 85610; 85730; 86850; 86900; 86901; 87040; 87070; 87077; 87086; 87186; 87205; 88304-TC; 93005; 93010; 94640; 94760; 99285-25; J7030; J7620

== ENCOUNTER 2018-07-16 17:46 | Inpatient (IN) | payer OTHER ==
--- NOTE | 2018-07-16 17:56 | PDOC ---
History of Present Illness - General Chief Complaint: SIRS, Suspected/Possible Stated Complaint: SEPTIC Time Seen by Provider: 07/16/18 17:56 - History of Present Illness Initial Comments: 07/16/18 20:00 The patient is a 67 year old female with a history of HTN, HLD, DM, Afib, DVT, UTI who presents for evaluation of altered mental status. Per EMS, the patient has become increasingly altered at her NH over the past several days with an associated cough and generalized body aches prompting her presentation to the ED for further evaluation. She has been managed for lower extremity wounds as well by vascular. History and ROS is limited from the patient due to her Altered mental status. Past History - Past Medical History Allergies/Adverse Reactions: Allergies Allergy/AdvReac Type Severity Reaction Status Date / Time metronidazole [From Flagyl] Allergy Severe Rash Verified 07/16/18 17:55 metoprolol Allergy Intermediate Rash Verified 07/16/18 17:55 Home Medications: Ambulatory Orders Aa/Hydrolyzed Collagen, Whey [Lps Neutral Flavor Liquid] 30 ml PO DAILY Acetaminophen [Tylenol] 650 mg PO Q6H PRN 12/23/17 Albuterol 0.083% Nebulizer Pamella [Ventolin 0.083% Nebulizer Soln -] 1 neb NEB QID 12/23/17 Ammonium Lactate Lotion [Lac-Hydrin 12] 1 applic TP ASDIR 12/23/17 Ascorbic Acid [Vitamin C] 500 mg PO DAILY 12/23/17 Bisacodyl Suppository [Dulcolax Suppository -] 10 mg RC DAILY PRN 12/23/17 Dextran 70/Hypromellose [Artificial Tears Eye Drops] 1 drop OU QID 12/23/17 Diltiazem Cd [Cardizem Cd -] 120 mg PO DAILY 12/23/17 Diphenhydramine HCl 25 mg PO Q6H PRN 12/23/17 Docusate Sodium [Colace] 300 mg PO HS 12/23/17 Fluocinonide 0.05% Cream [Lidex 0.05% Cream -] 1 applic TP BID 12/23/17 Folic Acid 1 mg PO DAILY 12/23/17 Hydroxyzine HCl 10 mg PO Q6H 12/23/17 Ipratropium 0.02% Nebulizer [Atrovent 0.02% Nebulizer -] 1 amp NEB TID 12/23/17 Lactobacillus Combo No.11 [Probiotic] 1 each PO TID 12/23/17 Levothyroxine [Synthroid -] 25 mcg PO DAILY 12/23/17 Magnesium 400 mg PO BID 12/23/17 Magnesium Hydroxide [Milk of Magnesia -] 30 ml PO DAILY PRN 12/23/17 Menthol/Camphor [Sarna Anti-Itch Lotion] 1 applic TP PRN PRN 12/23/17 Morphine *Immediate Release* [Msir -] 15 mg PO BID 12/23/17 Nilotinib HCl [Tasigna] 150 mg PO BID 12/23/17 Oxycodone HCl 10 mg PO Q4H PRN 12/23/17 Oxymetazoline HCl [Nasal [place]] 1 spray NS BID 12/23/17 Pantoprazole Sodium 40 mg PO DAILY 12/23/17 Polyethylene Glycol 3350 [Miralax 119 gm Btl -] 17 gm PO DAILY 12/23/17 Pyridoxine HCl [Vitamin B6] 100 mg PO DAILY 12/23/17 Sennosides [Senna Lax] 2 tab PO DAILY 12/23/17 Torsemide 20 mg PO DAILY 12/23/17 Triamcinolone Acet 0.1% Cream [Aristocort] 0 gm TP BID 12/23/17 Vitamin B Complex 1 each PO DAILY 12/23/17 Albuterol 2.5/Ipratropium 0.5 [Duoneb -] 1 amp NEB RQID amp 12/30/17 Amox-Tr/K Cl [Augmentin 500-125mg Tablet -] 1 tab PO BID@0800,1730 #12 tablet Collagenase Clostridium Hist. [Santyl -] 1 applic TP DAILY tube 12/30/17 Insulin (Levemir) [Levemir Vial] 10 units SQ BID@0700,2200 ml 12/30/17 Insulin Sliding Scale [Novolog Vial Sliding Scale -] 1 vial SQ TIDAC units Warfarin Na 9.5 mg PO DAILY 01/30/18 Anemia: Yes Asthma: No Cancer: Yes (CML) Cardiac Disorders: Yes (A-FIB) CVA: No COPD: Yes CHF: No DVT: Yes Dementia: No Diabetes: Yes GI Disorders: No Disorders: Yes (uti) HTN: Yes Hypercholesterolemia: Yes Liver Disease: Yes (fatty liver) Psychiatric Problems: Yes (depression) Seizures: No Thyroid Disease: Yes - Surgical History Abdominal Surgery: Yes (hernia) Appendectomy: No Cardiac Surgery: No Cholecystectomy: Yes Lung Surgery: No Neurologic Surgery: No Orthopedic Surgery: No - Immunization History Immunization Up to Date: Yes - Suicide/Smoking/Psychosocial Hx Smoking Status: Yes Smoking History: Former smoker Have you smoked in the past 12 months: No Number of Cigarettes Smoked Daily: 0 If you are a former smoker, when did you quit?: 10/25/2013 Cigars Per Day: 0 'Breaking Loose' booklet given: 02/28/12 Hx Alcohol Use: No Drug/Substance Use Hx: No Substance Use Type: None Hx Substance Use Treatment: No Review of Systems - Review of Systems Able to Perform ROS?: No (Altered Mental Status) *Physical Exam - Physical Exam Comments: 07/16/18 20:04 General Appearance: Nourished. Warm to the touch. In Mild Apparent Distress HEENT: No Pharyngeal Erythema, Tonsillar Exudate, Tonsillar Erythema Neck: No Cervical Lymphadenopathy Respiratory/Chest: Lungs Clear, Normal Breath Sounds. No Crackles, Rales, Rhonchi, Wheezing Cardiovascular: Regular Rhythm, Regular Rate. No Murmur, Gallops, Rubs Gastrointestinal/Abdominal: Normal Bowel Sounds, Soft. No Guarding, Rebound, Tenderness Musculoskeletal: No CVA Tenderness Extremity: 3+ pitting edema to the lower extremities with erythema and warm to the touch. Normal Capillary Refill Integumentary: Normal Color, Dry, Warm Neurologic: Oriented x0, Alert, Normal Mood/Affect, Normal Response, ED Treatment Course - LABORATORY CBC & Chemistry Diagram: 07/16/18 19:00 07/16/18 19:00 Medical Decision Making - Medical Decision Making 07/16/18 20:07 The patient is a 67 year old female with a history of HTN, HLD, DM, Afib, DVT, UTI who presents for evaluation of altered mental status. Differential includes but is not limited to: Sepsis, UTI, Pneumonia, Cellulitis, Infectious, Metabolic Derangement. Given the patient's history and physical exam, we will obtain a cbc, cmp, troponin, vbg, lactate, ua, urine culture, blood culture, chest plain film, ekg to evaluate further. We will continue to monitor and reassess while here in the ED. 07/16/18 23:26 CBC, cmp, lactate, ua are unremarkable. Chest plain film is unremarkable. It is likely the patient's symptoms are due to a severe lower extremity cellulitis leading to possible sepsis. We will treat with iv fluids, vanc, and zosyn. We discussed the case with the admitting team who accepted the patient for admission. *DC/Admit/Observation/Transfer Diagnosis at time of Disposition: Sepsis Qualifiers: Sepsis type: sepsis due to unspecified organism Qualified Code(s): A41.9 - Sepsis, unspecified organism - Discharge Dispostion Condition at time of disposition: Stable Decision to Admit order: Yes - Referrals Referrals: Carlito Longo MD [Primary Care Provider] - - Patient Instructions - Post Discharge Activity
[2018-07-16] MEDS ORDERED: SODIUM CHLORIDE 1,000 ML IV STA (18:24)
[2018-07-16 19:09] LABS: VENOUS PC02 34.1 mmHg (38-52); VENOUS PH 7.44 (7.32-7.42); VENOUS PO2 38.7 mmHg (28-48)
[2018-07-16 19:12] LABS: BASO % 0.1 % (0-2.0); HEMATOCRIT 26.3 % (32.4-45.2); LYMPH % 4.8 % (8-40); MCH 32.4 pg (25.7-33.7); MEAN CELL VOLUME 95.4 fl (80-96); MEAN PLT VOLUME 7.7 fl (7.5-11.1); MONO % 4.5 % (3.8-10.2); NEUT % 90.6 % (42.8-82.8); PLATELET COUNT 108 K/MM3 (134-434); RBC 2.76 M/mm3 (3.60-5.2); RDW 19.2 % (11.6-15.6); WHITE BLOOD COUNT 7.4 K/mm3 (4.0-10.0)
[2018-07-16 19:26] LABS: INR 2.43 (0.83-1.09); PROTHROMBIN TIME (PATIENT) 28.9 SEC (9.7-13.0)
[2018-07-16 19:29] LABS: ACTIVATED PTT 38.3 SECONDS (25.2-36.5)
[2018-07-16 19:37] LABS: ALBUMIN 2.6 g/dl (3.4-5.0); ALK PHOS 282 U/L (45-117); ANION GAP 9 MMOL/L (8-16); BILIRUBIN,TOTAL 0.8 mg/dL (0.2-1); BLOOD UREA NITROGEN 51 mg/dL (7-18); CALCIUM 8.2 mg/dL (8.5-10.1); CHLORIDE 108 mmol/L (98-107); CO2 23 mmol/L (21-32); CREATININE 1.3 mg/dL (0.55-1.3); GLUCOSE,RANDOM 173 mg/dL (74-106); POTASSIUM 4.9 mmol/L (3.5-5.1); SGOT/AST 56 U/L (15-37); SGPT/ALT 74 U/L (13-61); SODIUM 140 mmol/L (136-145); TOT PROT 9.3 g/dl (6.4-8.2)
--- NOTE | 2018-07-16 20:12 | PDOC ---
Attending Attestation - HPI HPI: 07/16/18 20:46 The patient is a 67 year old female brought via EMS, with a significant past medical history of HTN, HLD, DM, Afib, DVT and UTI, who presents to the ED complaining of altered mental status. EMS states that the senior care reports the patient has become increasingly altered over the past several days. The senior care also reports cough, fever and generalized body aches. The patient does have lower extremity wounds and is currently being managed by vascular department. She has been managed for lower extremity wounds as well by vascular. History is limited due to her Altered mental status. Allergies: Flagyl, metropolol Past surgical history: Hernia Repair, Cholecystectomy Social History: No alcohol, tobacco or drug use reported <Rolando Fair - Last Filed: 07/16/18 20:46> - Resident Resident Name: Alan Izquierdo - ED Attending Attestation I have performed the following: I have examined & evaluated the patient, The case was reviewed & discussed with the resident, I agree w/resident's findings & plan, Exceptions are as noted - HPI HPI: 07/16/18 20:11 67 yo female brought in by ambulance from senior care for altered mental status and found to have 102.7 fever - Physicial Exam PE: 07/16/18 20:12 well-developed 67-year-old female presents with fever head ncat neck supple eyes gianni, eomi lungs cta b/l cvs tachycardia abd protuberant,soft ext LE edematous,chronic venous stasis with ulcers ,+erythema skin warm neuro nonverbal,moving extremities - Medical Decision Making 07/16/18 21:03 imp sepsis UA,UC,cbc,comp,cxr,lactic acid 07/16/18 21:15 imp cellulitis of LE <Betzaida Gibson - Last Filed: 07/16/18 21:15>
[2018-07-16] MEDS ORDERED: ACETAMINOPHEN 1000 MG/100 ML VIAL (NON FORMULARY) IVPB ONE (20:32)
[2018-07-16] MEDS ORDERED: ACETAMINOPHEN INJECTION 100 ML IVPB ONE (20:54)
[2018-07-16 21:02] LABS: URINE APPEARANCE CLEAR; URINE BILIRUBIN NEGATIVE (<2.0 mg/dL); URINE COLOR YELLOW; URINE GLUCOSE (UA) NEGATIVE (NEGATIVE); URINE KETONE NEGATIVE (NEGATIVE); URINE LEUK ESTERASE TRACE (NEGATIVE); URINE NITRITE NEGATIVE (NEGATIVE); URINE PROTEIN 2+ (NEGATIVE); URINE UROBILINOGEN NEGATIVE mg/dL (0.2-1.0)
[2018-07-16 21:09] LABS: YEAST RARE
[2018-07-16] MEDS ORDERED: VANCOMYCIN 1 GRAM (PRE-DOCKED) 1,000 MG/250 ML BAG IVPB ONE ×2 (21:10→21:17)
[2018-07-16] MEDS ORDERED: PIPERACILLIN/TAZOB 4.5 GM 4.5 GM in DEXTROSE 5%-WATER 100 ML IVPB ONE (21:10)
[2018-07-16] MEDS ORDERED: PIPERACILLIN/TAZOB 4.5 GM 4.5 GM/100 ML BAG IVPB ONE (21:17)
--- NOTE | 2018-07-17 00:19 | HP ---
CHIEF COMPLAINT: Altered mental status PCP: Dr. Longo HISTORY OF PRESENT ILLNESS: Patient is poor historian, confused. Significant history obtained from prior chart review. Patient is a 67 year old female presents from [facility] for lethargy, and altered mental status. As per RN at [facility], the patient had been not feeling well for the past two days prior to admission. Patient was altered today from her baseline, confused, minimally responsive with chills, and found covered in her own urine in bed At baseline, patient is alert and oriented X4. Ambulates with wheelchair, however is able to stand and ambulate from wheelchair onto toilet (approx. 3 feet). She is usually conservative, and able to use bathroom by herself. She was admitted to [facility] over one year ago due to her lower extremity wounds, and inability to ambulate. ER course was notable for: (1) EKG shows normal sinus rhythm at 90bpm with premature atrial complexes. Troponin 0.08 (2) Rectal temperature 102.7F (3) Vancomycin 1000mg IV, Zosyn 4.5 grams IV Recent Travel: denies PAST MEDICAL HISTORY: hypertension, hyperlipidemia, diabetes mellitus, Afib on coumadin, prior DVT (uncertain which lower extremity), CML, COPD, congenital goiter, pulmonary hypertension, hypothyroidism, choledocholithiasis, biliary pancreatitis PAST SURGICAL HISTORY: cholecystectomy, ERCP with stenting in 2013 Social History: Smoking: former smoker. unable to obtain detailed history as patient is poorly responsive. Alcohol: unable to obtain Drugs: unable to obtain Family History: (obtained from prior chart review) Father: a 69 years old, liver cancer Mother: at 68 years old, unknown cancer, schizoprenia Allergies metronidazole [From Flagyl] Allergy (Severe, Verified 07/16/18 17:55) Rash metoprolol Allergy (Intermediate, Verified 07/16/18 17:55) Rash HOME MEDICATIONS: Home Medications Medication Instructions Recorded Aa/Hydrolyzed Collagen, Whey [Lps 30 ml PO DAILY 12/23/17 Neutral Flavor Liquid] Acetaminophen [Tylenol] 650 mg PO Q6H PRN 12/23/17 Albuterol 0.083% Nebulizer Pamella 1 neb NEB QID 12/23/17 [Ventolin 0.083% Nebulizer Soln -] Ammonium Lactate Lotion 1 applic TP ASDIR 12/23/17 [Lac-Hydrin 12] Ascorbic Acid [Vitamin C] 500 mg PO DAILY 12/23/17 Bisacodyl Suppository [Dulcolax 10 mg RC DAILY PRN 12/23/17 Suppository -] Dextran 70/Hypromellose 1 drop OU QID 12/23/17 [Artificial Tears Eye Drops] Diltiazem Cd [Cardizem Cd -] 120 mg PO DAILY 12/23/17 Diphenhydramine HCl 25 mg PO Q6H PRN 12/23/17 Docusate Sodium [Colace] 300 mg PO HS 12/23/17 Fluocinonide 0.05% Cream [Lidex 1 applic TP BID 12/23/17 0.05% Cream -] Folic Acid 1 mg PO DAILY 12/23/17 Hydroxyzine HCl 10 mg PO Q6H 12/23/17 Ipratropium 0.02% Nebulizer 1 amp NEB TID 12/23/17 [Atrovent 0.02% Nebulizer -] Lactobacillus Combo No.11 1 each PO TID 12/23/17 [Probiotic] Levothyroxine [Synthroid -] 25 mcg PO DAILY 12/23/17 Magnesium 400 mg PO BID 12/23/17 Magnesium Hydroxide [Milk of 30 ml PO DAILY PRN 12/23/17 Magnesia -] Menthol/Camphor [Sarna Anti-Itch 1 applic TP PRN PRN 12/23/17 Lotion] Morphine *Immediate Release* [Msir 15 mg PO BID 12/23/17 -] Nilotinib HCl [Tasigna] 150 mg PO BID 12/23/17 Oxycodone HCl 10 mg PO Q4H PRN 12/23/17 Oxymetazoline HCl [Nasal [place]] 1 spray NS BID 12/23/17 Pantoprazole Sodium 40 mg PO DAILY 12/23/17 Polyethylene Glycol 3350 [Miralax 17 gm PO DAILY 12/23/17 119 gm Btl -] Pyridoxine HCl [Vitamin B6] 100 mg PO DAILY 12/23/17 Sennosides [Senna Lax] 2 tab PO DAILY 12/23/17 Torsemide 20 mg PO DAILY 12/23/17 Triamcinolone Acet 0.1% Cream 0 gm TP BID 12/23/17 [Aristocort] Vitamin B Complex 1 each PO DAILY 12/23/17 Albuterol 2.5/Ipratropium 0.5 1 amp NEB RQID amp 12/30/17 [Duoneb -] Amox-Tr/K Cl [Augmentin 500-125mg 1 tab PO BID@0800,1730 #12 tablet 12/30/17 Tablet -] Collagenase Clostridium Hist. 1 applic TP DAILY tube 12/30/17 [Santyl -] Insulin (Levemir) [Levemir Vial] 10 units SQ BID@0700,2200 ml 12/30/17 Insulin Sliding Scale [Novolog 1 vial SQ TIDAC units 12/30/17 Vial Sliding Scale -] Warfarin Na 9.5 mg PO DAILY 01/30/18 REVIEW OF SYSTEMS Unable to obtain as patient is altered, lethargic, and minimally responsive. PHYSICAL EXAMINATION Vital Signs - 24 hr 07/16/18 07/16/18 07/16/18 17:46 19:53 20:50 Temperature 98.8 F 102.7 F H 102.7 F H Pulse Rate 80 83 Pulse Rate [ 83 Right Radial] Respiratory 16 20 20 Rate Blood Pressure 153/71 147/106 H Blood Pressure 147/106 H [Right Arm] O2 Sat by Pulse 92 L 94 L 94 L Oximetry (%) GENERAL: Lethargic, minimally communicative, alert to person only. HEAD: Normal with no signs of trauma. EYES: Pupils equal, round and reactive to light, sclera anicteric, conjunctiva clear. EARS, NOSE, THROAT: Oropharynx clear without exudates. Dry mucous membranes. NECK: Normal range of motion, supple without lymphadenopathy. Negative Brudinksi sign. LUNGS: Breath sounds equal, with faint crackles auscultated b/l lower lobes. No accessory muscle use. HEART: Regular rate and rhythm, normal S1 and S2 without murmur, rub or gallop. ABDOMEN: Obese. Soft, nondistended. Tender to palpation at epigastrium and right upper quadrant. Hepatomegaly palpated and percussed 4cm below right costal margin, with firm, palpable liver edge. Normoactive bowel sounds X4 quadrants. No guarding, no rebound tenderness. MUSCULOSKELETAL: Normal range of motion at all joints. UPPER EXTREMITIES: 2+ radial pulses b/l, warm, well-perfused. No cyanosis. No clubbing. No peripheral edema. LOWER EXTREMITIES: Unable to appreciate dorsalis pedis pulses b/l. Edematous lower extremities with chronic skin changes. NEUROLOGICAL: Cranial nerves II-XII grossly intact. Patient follows commands to freely moves all 4 extremities with equal passive range of motion. PSYCHIATRIC: Cooperative SKIN: Horizontal scar at right upper quadrant abdomen. Clean, dry, well healed. Exposed 2cm ulcers left anterior lower extremity, draining mucopurulent discharge. No probing to bone. Laboratory Results - last 24 hr 07/16/18 07/16/18 07/16/18 19:00 19:00 19:00 WBC 7.4 RBC 2.76 L Hgb 9.0 L Hct 26.3 L D MCV 95.4 MCH 32.4 D MCHC 34.0 RDW 19.2 H Plt Count 108 L D MPV 7.7 Absolute Neuts (auto) 6.7 Neutrophils % 90.6 H Lymphocytes % 4.8 L D Monocytes % 4.5 Eosinophils % 0.0 D Basophils % 0.1 Nucleated RBC % 0 PT with INR 28.90 H INR 2.43 H PTT (Actin FS) 38.3 H VBG pH 7.44 H POC VBG pCO2 34.1 L D POC VBG pO2 38.7 D Mixed VBG HCO3 22.9 Sodium Potassium Chloride Carbon Dioxide Anion Gap BUN Creatinine Creat Clearance w eGFR Random Glucose Lactic Acid Calcium Total Bilirubin AST ALT Alkaline Phosphatase Troponin I Total Protein Albumin Urine Color Urine Appearance Urine pH Ur Specific [place] Urine Protein Urine Glucose (UA) Urine Ketones Urine Blood Urine Nitrite Urine Bilirubin Urine Urobilinogen Ur Leukocyte Esterase Urine WBC (Auto) Urine RBC (Auto) Urine Yeast 07/16/18 07/16/18 07/16/18 19:00 19:00 19:00 WBC RBC Hgb Hct MCV MCH MCHC RDW Plt Count MPV Absolute Neuts (auto) Neutrophils % Lymphocytes % Monocytes % Eosinophils % Basophils % Nucleated RBC % PT with INR INR PTT (Actin FS) VBG pH POC VBG pCO2 POC VBG pO2 Mixed VBG HCO3 Sodium 140 Potassium 4.9 Chloride 108 H Carbon Dioxide 23 Anion Gap 9 BUN 51 H Creatinine 1.3 Creat Clearance w eGFR 40.61 Random Glucose 173 H Lactic Acid 0.9 Calcium 8.2 L Total Bilirubin 0.8 AST 56 H ALT 74 H Alkaline Phosphatase 282 H Troponin I 0.08 H Total Protein 9.3 H Albumin 2.6 L Urine Color Urine Appearance Urine pH Ur Specific [place] Urine Protein Urine Glucose (UA) Urine Ketones Urine Blood Urine Nitrite Urine Bilirubin Urine Urobilinogen Ur Leukocyte Esterase Urine WBC (Auto) Urine RBC (Auto) Urine Yeast 07/16/18 20:46 WBC RBC Hgb Hct MCV MCH MCHC RDW Plt Count MPV Absolute Neuts (auto) Neutrophils % Lymphocytes % Monocytes % Eosinophils % Basophils % Nucleated RBC % PT with INR INR PTT (Actin FS) VBG pH POC VBG pCO2 POC VBG pO2 Mixed VBG HCO3 Sodium Potassium Chloride Carbon Dioxide Anion Gap BUN Creatinine Creat Clearance w eGFR Random Glucose Lactic Acid Calcium Total Bilirubin AST ALT Alkaline Phosphatase Troponin I Total Protein Albumin Urine Color Yellow Urine Appearance Clear Urine pH 7.0 D Ur Specific [place] 1.016 Urine Protein 2+ H Urine Glucose (UA) Negative Urine Ketones Negative Urine Blood Negative Urine Nitrite Negative Urine Bilirubin Negative Urine Urobilinogen Negative Ur Leukocyte Esterase Trace Urine WBC (Auto) 8 Urine RBC (Auto) 4 Urine Yeast Rare ASSESSMENT/PLAN: Patient is a 67 year old female presents from [facility] for lethargy, and altered mental status. Fever, unknown source -Infectious etiology may explain her sudden lethargy and altered mental status from her baseline. -Source may be dermatologic with open wound along left lower extremity, draining mucopurulent discharge, vs. intrabdominal etiology as patient exhibits tenderness to palpation. -Patient received Vancomycin 1000mg IV, Zosyn 4.5 grams IV in ED. -CT head shows no intracranial fracture upon preliminary reading. F/U official reading -CT abdomen and pelvis shows right pleural effusion, fecal impaction of rectum, loss of height L3 vertebral body not seen in prior study. Negative for diverticulitis, colitis. F/U official reading. -F/U blood, urine, sputum cultures -F/U influenza swab -F/U wound culture from right anterior lower extremity ulcer -IV lactated ringers at 60mL/ hour -Vancomycin 1000mg IV Q24H one tigre dose. F/U ID recommendations -ID consult (Dr. Pena) Right sided pleural effusion -F/U chest CT without contrast -F/U urine for legionella, pneumonia antigens -Consider thoracentesis, pending CT scan reading -Vancomycin 1000mg IV Q24H one tigre dose. F/U ID recommendations -Azithromycin 500mg one time dose -Zosyn 3.375 Q8H Chronic lower extremity swelling, wounds -Patient normally follows up with wound care clinic, last appointment 07/13/2018 with -Consider wound care consult -F/U wound culture from right lower extremity ulcer Elevated troponin -EKG shows normal sinus rhythm at 90bpm with premature atrial complexes -Troponin 0.08. Likely secondary to demand due to fever. -Will trend troponins. Transaminitis -Unclear etiology. Patient exhibits tenderness to palpation at RUQ, and epigastrium -F/U CT abdomen and pelvis official reading. -F/U hepatitis serology -Trend LFTs -Alkaline phosphatase has elevated on prior admissions. Fecal impaction -Fleet enema -Senna 1 tablet BID -Colace 100mg PO -If non-palliative, consider manual disimpaction ASA -Cr 1.3 at baseline from prior admissions -IV LR at 60mL/ hour -Follow Cr. -Consider nephrology consult Afib -Currently rate controlled. -Continue Cardizem Cd 120mg daily. Will hold if patient septic, hypotensive. -Coumadin 10mg PO daily -F/U PT/INR CHF, diastolic -Hold her Torsemide 20mg PO daily Hypertension -Patient receiving Cardizem CD 120mg daily Diabetes mellitus -Hold patient's Metformin -Insulin sliding scale -BGM ACHS Hypothyroidism -Synthroid 25mcg PO daily Loss of vertebral body height -Unclear etiology. May be related to her history of CML? Concern for vertebral fracture. -Follow official reading of CT -Consider hematology- oncology consult, orthopedic surgery consult. FEN -IV lactated ringers at 60mL/ hour -Follow CMP -Diabetic diet Prophylaxis -Patient receiving Coumadin 10mg Po daily for Afib. INR therapeutic Disposition -Admit to medical surgical floor. Visit type - Emergency Visit Emergency Visit: Yes ED Registration Date: 07/16/18 Care time: The patient presented to the Emergency Department on the above date and was hospitalized for further evaluation of their emergent condition. - New Patient This patient is new to me today: Yes Date on this admission: 07/17/18 - Critical Care Critical Care patient: No
--- NOTE | 2018-07-17 01:34 | PN ---
Teaching Attending Note Name of Resident: Estefania Chappell ATTENDING PHYSICIAN STATEMENT I saw and evaluated the patient. I reviewed the resident's note and discussed the case with the resident. I agree with the resident's findings and plan as documented. SUBJECTIVE: Seen and examined at bedside; please refer to resident note for further historical details. She presents from [facility] where she has been for chronic abx, etc. for worsening mentation and fevers. She has been having fevers for the past several days; this aparently evolved into her not ambulating, not eating her meals, and being slow to respond. Awaiting further information from facility; we have called them but it was during the shift change I am told so further hx not available. No sitter from facility in with her at the ER. No meningeal signs. Some vague abdominal tenderness but nothing localizing. No localizing neuro findings. Admit to the hospital on the medicine service. History provided is very vague and she is a poor historian Couldnt verify ROS, PMH, Social, or PSH reliably with patient. Reviewed old notes. OBJECTIVE: VS, labs, and imaging all personally reviewed Resting in bed, doesn't appear to be in distress or uncomfortable. Answering simple questions and is AAOx2. RRR s1/2 no mgr Difficult lung exam given body habitus and lying in bed, sym expansion without yoel rales but difficult to truly note Tender diffusely without rebound or guarding, mild distension, +BS without yoel organomegaly CN2-12 grossly intact, moves all 4 limbs, able to answer simple questions but very flat affect. NC AT EOMI Trachea midline, no JVD Labs with negative initial lactate, no WBC, BP and HR wnl but febrile to [address] head, abdomen, pelvis, chest Slightly elevated troponin ASSESSMENT AND PLAN: Mrs. Hernandez is a 67 y/o CF presenting to the ER for progressive weakness, lack of responsiveness, and fevers. She is found to have questionable source for fevers that is still being worked up; is known to have LE ulcers but not acutely infected, ?effusion with ?PNA, abdominal pain. No meningeal signs and non-concerning UA; AAOx2 just slow to respond. Is not septic. 1) Fevers -102-range several times in ER and at [place]; PRN APAP with geriatric dosing to control -We are working up the source of this. She had diffuse abdominal pain to palpation. It is difficult to ascertain if there is a DVT which can of course cause fevers. She doesn't appear to have meningeal signs. UA clear. Chronic LE wounds were initially suspect and though present with great amount of underlying chronic skin changes they appear to be well-cared for and with no frankly convincing signs of severe acute infection (one with some drainage, but doesn't appear to be acute and has been cultured). CXR is suboptimal due to body mass and penetration but it was difficult to rule out pulmonary pathology. -LE venous and arterial studies are pending -CT Abd/Pelvis: R-Pleural Effusion, fecal impaction; we will thus further investigate the pleural effusion with imaging and obtain IR-guided thoracentesis if needed. She is saturating well on room air at this time but may treat with PRN O2. -Will cover broadly and involve ID. We have to at least cover for potential skin and soft tissue process with potential pulmonary process given the CT read and await further testing to guide therapy -ESR/CRP, pancultures pending. -Once again, if she decompensates will aggressively hydrate and hold appropriate medications 2) Altered Mental Status -In the setting of an acute febrile illness with the source being worked up; furthermore she has no meningeal signs and no signs of focal neurological deficits. Due to the aforementioned I am suspicious that this process is risk control representative of a toxic metabolic encephalopathy. CT head is negative and she had a gradual decline coinciding with febrile illness; not frankly lethargic at this point, is still AAOx2 but slower to respond and aparently soiled herself and stopped eating. -Neuro checks and seizure precautions; should note that there is no suspected seizure activity, etc. -Treat underlying infective/inflammatory process broadly -If no improvement consider further neuroimaging and LP +/- neurology consultation -Ensuring no ACS -Fall risk 3) Weakness -Likely related to acute infectious/inflammatory process. She can aparently ambulate with some assistance at her baseline, eat properly, and toilet herself without issues. Now she is having issues with those ADLs. We will treat the underlying cause and consult PT. 4) Fecal Impaction -Doc/Senna BID, PRN QD Miralax, Fleet enema -If no relief with enema and stool softener consider manual disimpaction 5) Pleural Effusion -Seen on the abdominal CT incidentally on wet read; difficult to worm picker on exam due to body habitus, etc. -Obtain CT to elucidate anatomy and then go ahead and will consider thoracentesis with fluid studies if large enough amount. Broad differential and there is underlying concern that this could be related to the infectious process. One side being larger than the other argues against underlying diastolic CHF, etc. driving this finding. 6) Thrombocytopenia -New finding; platelets 108. No recent heparin products, etc. She is not bleeding -Check Hep C and HIV screens and a peripheral smear; consider heme consultation 7) Troponemia -No history of CP, SOB, etc. but granted she is a poor historian. -Trend, monitor on telemetry. Consider CV consultation; no recent cardiac workup. Could be demand from underlying process. Her INR is therapeutic which would make ACS less likely. 8) Atrial Fibrillation, h/o (CHADSVASC2=3) -Continue on home dilt, coumadin. Hold dilt if frankly septic decompensation but that is not apparent at this juncture -Monitor; echo done 2017 and reviewed by CV at that juncture. 9) Pulmonary HTN, h/o -Followup as outpatient; noted on prior echos. Nonacute 10) Diastolic CHF, h/o -Poor PO intake the last few days so giving low amount of fluid overnight and restarting home torsemide in the AM. If she cannot do PO reassess fluid status and need for continued IVF vs. small diuresis. Essentially euvolemic bordering on hypovolemic now by our assessment. 11) HTN -Continue home medications; monitor and keep <160mmHg inpatient. GDMT outpatient. 12) HLD -Nonacute; followup with OP provider 13) CML -Nonacute; followup with oncology. Consider if the pleural effusion is related to this 14) DVT hx -Obtaining additional hx; already therapeutic on warfarin so monitor INR 15) COPD (prior smoker) -No acute exacerbation by GOLD criteria; obtain old records if needed and recommend close OP followup. 16) CAD -Monitor; nonacute so continue home meds 17) Chronic LE wounds -Consult wound care when inpatient -Could be playing a role in the acute infectious process, but I feel this is less likely given their chronic appearance. Still will cover for vanco. She has refused vascular studies in the past as per documentation so we will obtain venous and arterial dopplers now to r/o any worsening vascular disease playing a component. 18) NIDDM -SSI when inpatient; recommend close followup with PCP 19) Obesity (BMI=33) -Hand [employer] Sander prior to discharge 20) Chronically Elevated Alkaline Phosphatase -Has trended in this range before; given the abdominal pain already checking CT. Followup on those results and decide on further workup based on overall clinical picture with the results (ie: inpt vs outpt) 21) Normocytic Anemia -Monitor and transfuse as needed; recommend outpatient anemia workup -Goal would be >8 given CAD hx 22) Hypothyroidism History -Continue home synthroid; check TSH as outpatient. DVT px: therapeutic INR FENA -LR @60 overnight; if she can tolerate PO stop fluids with 2L restriction and restart torsemide if clinically appropriate -Monitor and replace PRN -Cardiac Diet -As tolerated; consulting PT for mobilization Consultants: ID, Neurology (if not improved to baseline with tx of presumptive infection), Cardiology (depending on troponin), Wound Care. Time and effort of consulting services is greatly appreciated by the primary team. Full Code
[2018-07-17] MEDS ORDERED: AZITHROMYCIN IVPB 500 MG in DEXTROSE 5%-WATER - 250 ML IVPB ONE (04:42)
[2018-07-17] MEDS ORDERED: DOCUSATE SODIUM 100 MG CAPSULE (FP) PO ONE (04:48)
[2018-07-17] MEDS ORDERED: MINERAL OIL ENEMA 133 ML ENEMA PR ONE (04:48)
[2018-07-17] MEDS ORDERED: ACETAMINOPHEN 1000 MG/100 ML VIAL (NON FORMULARY) IVPB PRN (05:28)
[2018-07-17] MEDS ORDERED: IBUPROFEN 800 MG/8 ML IJ IVPB PRN (05:30)
[2018-07-17] MEDS ORDERED: PIPERACILLIN/TAZOB 3.375 GM 3.375 GM in DEXTROSE 5%-WATER - 50 ML IVPB SCH ×2 (06:15→07:00)
[2018-07-17 06:22] LABS: HEMATOCRIT 26.3 % (32.4-45.2); HEMOGLOBIN 8.6 GM/dL (10.7-15.3); MCH 31.2 pg (25.7-33.7); MCHC 32.7 g/dl (32.0-36.0); MEAN CELL VOLUME 95.5 fl (80-96); MEAN PLT VOLUME 7.5 fl (7.5-11.1); PLATELET COUNT 96 K/MM3 (134-434); RBC 2.76 M/mm3 (3.60-5.2); RDW 19.5 % (11.6-15.6)
[2018-07-17 06:38] LABS: INR 2.77 (0.83-1.09)
[2018-07-17] MEDS ORDERED: INSULIN SLIDING SCALE (NOVOLOG) 1 VIAL SQ SCH (07:00)
[2018-07-17 07:33] LABS: ALBUMIN 2.4 g/dl (3.4-5.0); ALK PHOS 268 U/L (45-117); ANION GAP 7 MMOL/L (8-16); BILIRUBIN,TOTAL 1.1 mg/dL (0.2-1); BLOOD UREA NITROGEN 42 mg/dL (7-18); CALCIUM 8.3 mg/dL (8.5-10.1); CHLORIDE 110 mmol/L (98-107); CO2 23 mmol/L (21-32); CREATININE 1.2 mg/dL (0.55-1.3); GLUCOSE,RANDOM 189 mg/dL (74-106); MAGNESIUM 2.3 mg/dL (1.8-2.4); PHOSPHOROUS 2.6 mg/dL (2.5-4.9); POTASSIUM 4.3 mmol/L (3.5-5.1); SGOT/AST 57 U/L (15-37); SGPT/ALT 72 U/L (13-61); SODIUM 139 mmol/L (136-145); TOT PROT 9.1 g/dl (6.4-8.2)
[2018-07-17] MEDS: SENNOSIDES 8.6MG TABLET (FP) PO SCH ×3 (10:00→22:30)
[2018-07-17] MEDS ORDERED: LACTATED RINGERS SOLUTION 1,000 ML IV SCH ×2 (10:55)
--- NOTE | 2018-07-17 11:18 | HOSP ---
Subjective - Review of Symptoms Events since last encounter: pt seen and examined. she states she lives in a facility, does not know the name. states she has not been feeling well. denies any BAd pain, diarrhea, SOB , or CP. history was difficult to obtain due to lethargy PE: VS reviewed. lethargic, flushed face, responsive , answers questions but falls asleep. round equal pupils, EOMI. very dry MM Lungs: CTAB Abd: generalized tenderness especially in RUQ and RLQ. no rebound , soft. NL BS Ext :edema , erythema, and scaly skin over feet and legs . increased warmth A/p: Mrs. Hernandez is an unfortunate 67 y/o lady with h/o HTN, HLP, A fib, diastolic heart failure, COPD, pulm HTN, anemia, CCY, and other medical problems who presented from [place] for fever . 1- Fever: unclear source. possible sources could be the Abd or lower extremities. Although has small b/l Pleural effusions, I doubt this is the source. CT images reviewed doubt PNA. - follow blood cx - check US of RUQ due to new transaminitis , and RUQ tenderenss - cont vanc/zosyn for now pending ID oneil; - ascitis is small, and not new. will d/w ID if paracentesis is indicated. also on coumadin - treat constipation, avoid enemas ( dc enema from last night ). - Gi consult for stercoral Ulcer seen on CT - IVF 2- Transaminitis : new, could be due to sepsis or due to biliary process. CT wit pneumobilia, but this is old seen on CT from 2017. - US as above , to r/o CBD stones/dialtion - follow trend - GI 3- h/o a FIB : - cont cardizem - cont coumadin ( will confirm dose ) 4- Costipation /fecal impaction : - oral agents. - try lactulose - avoid enemas 5- Trop leak:likely demand ischemia . NO EKG in chart. - reorder EKG . - trop trended down 6- H/o D CHF: looks volume depleted. - hold diuretics and monitor on IVF 7- thrombocytopenia: could be due to sepsis. - r/o DIC: check PTT and fibrinogen Meds need to be confirmed. NO indication in paperchart where she came from, or her med list. RN/SW to help. Physical Examination Vital Signs: Vital Signs Temperature 102.7 F H 07/16/18 20:50 Pulse Rate 83 07/16/18 20:50 Respiratory Rate 20 07/16/18 20:50 Blood Pressure 147/106 H 07/16/18 20:50 O2 Sat by Pulse Oximetry (%) 94 L 07/16/18 20:50 Labs: CBC, BMP 07/17/18 05:45 07/17/18 05:45
--- NOTE | 2018-07-17 11:39 | PN ---
Progress Note (short form) - Note Progress Note: Please inform Dr Velazquez of this admission. Patient was seen last July2017.
--- NOTE | 2018-07-17 12:18 | CON.ID ---
Consult Consult Specialty:: infecious diseases Referred by:: Reason for Consultation:: sepsis,cellulitits of the leg - History of Present Illness Chief Complaint: weakness,swelling of the leg History of Present Illness: 67 year old female presents from [facility] for lethargy, and altered mental status. As per RN at [facility], the patient had been not feeling well for the past two days prior to admission. 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 History of Recent Travel: No Home Medications - Allergies Allergies/Adverse Reactions: Allergies Allergy/AdvReac Type Severity Reaction Status Date / Time metronidazole [From Flagyl] Allergy Severe Rash Verified 07/16/18 17:55 metoprolol Allergy Intermediate Rash Verified 07/16/18 17:55 - Home Medications Home Medications: Ambulatory Orders Ammonium Lactate Lotion [Lac-Hydrin 12% Lotion -] 1 applic TP ASDIR 07/18/18 Ascorbic Acid [Vitamin C -] 500 mg PO DAILY 07/18/18 Bromfenac Sodium [Prolensa] 1 drop OD 07/18/18 Ciprofloxacin 0.3% Eye Drops [Ciloxan 0.3% Eye Drops -] 1 drop OS Q4H 07/18/18 Collagenase Clostridium Hist. [Santyl] 1 applic TP DAILY 07/18/18 Gabapentin [Neurontin -] 100 mg PO Q8H 07/18/18 L. Acidophilus/Bifid. Animalis [Probiotic 5 Billion Cell Cap] 1 each PO TID Polyethylene Glycol 3350 [Miralax (For Bowel Prep) -] 17 gm PO TID 07/18/18 Prednisolone 1% Ophthalmic [Pred Forte 1% -] 1 drop OU Q4H 07/18/18 Pyridoxine HCl (B-6) [Vitamin B6] 100 mg PO DAILY 07/18/18 RX: Albuterol Sulfate 2.5 mg IH Q8H PRN 07/18/18 RX: Ipratropium [place] 0.2 mg IH Q8H PRN 07/18/18 RX: Oxycodone HCl 10 mg PO Q6H PRN 07/18/18 RX: Vitamin B Complex 1 tab PO DAILY 07/18/18 Torsemide [Demadex] 20 mg PO BID 07/18/18 Warfarin Na [Coumadin] 10 mg PO HS 07/18/18 metFORMIN HCL [Metformin HCl] 500 mg PO BID 07/18/18 Family Disease History - Family Disease History Family Disease History: CA: Father, Mother Review of Systems - Review of Systems Constitutional: reports: Weakness, Other Eyes: reports: No Symptoms HENT: reports: No Symptoms Neck: reports: No Symptoms Cardiovascular: reports: No Symptoms Respiratory: reports: No Symptoms Gastrointestinal: reports: No Symptoms Musculoskeletal: reports: Muscle Cramps Integumentary: reports: Change in Color, Erythema Neurological: reports: No Symptoms Endocrine: reports: No Symptoms Hematology/Lymphatic: reports: No Symptoms Psychiatric: reports: No Symptoms Physical Exam Vital Signs: Vital Signs Temperature 102.7 F H 07/16/18 20:50 Pulse Rate 83 07/16/18 20:50 Respiratory Rate 20 07/16/18 20:50 Blood Pressure 147/106 H 07/16/18 20:50 O2 Sat by Pulse Oximetry (%) 94 L 07/16/18 20:50 Constitutional: Yes: Calm, Mild Distress, Obese Eyes: Yes: Conjunctiva Clear HENT: Yes: Atraumatic, Normocephalic Neck: Yes: Supple, Trachea Midline Cardiovascular: Yes: S1, S2 Respiratory: Yes: Regular, CTA Bilaterally Gastrointestinal: Yes: Normal Bowel Sounds, Soft Musculoskeletal: Yes: WNL Extremities: Yes: Erythema, Other Wound/Incision: Yes: Open to air Neurological: Yes: Alert, Oriented Psychiatric: Yes: Alert, Oriented Labs: CBC, BMP 07/17/18 05:45 07/17/18 05:45 Assessment/Plan Problem List - Problems (1) Sepsis Code(s): A41.9 - SEPSIS, UNSPECIFIED ORGANISM Qualifiers: Sepsis type: sepsis due to unspecified organism Qualified Code(s): A41.9 - Sepsis, unspecified organism (2) Cellulitis Code(s): L03.90 - CELLULITIS, UNSPECIFIED Qualifiers: Site of cellulitis: extremity Site of cellulitis of extremity: lower extremity Laterality: unspecified laterality Qualified Code(s): L03.119 - Cellulitis of unspecified part of limb (3) Fecal impaction in rectum Code(s): K56.41 - FECAL IMPACTION (4) Chronic anemia Code(s): D64.9 - ANEMIA, UNSPECIFIED (5) HTN (hypertension) Code(s): I10 - ESSENTIAL (PRIMARY) HYPERTENSION (6) T2DM (type 2 diabetes mellitus) Code(s): E11.9 - TYPE 2 DIABETES MELLITUS WITHOUT COMPLICATIONS Qualifiers: Diabetes mellitus complication status: with neurologic complications (7) CHF (congestive heart failure) Code(s): I50.9 - HEART FAILURE, UNSPECIFIED (8) CML (chronic myelocytic leukemia) Code(s): C92.10 - CHRONIC MYELOID LEUK, BCR/ABL-POSITIVE, NOT ACHIEVE REMIS (9) Hypothyroid Code(s): E03.9 - HYPOTHYROIDISM, UNSPECIFIED plan will start patient on abx wound cx await for other cx rest as per the team hydration careful watch on the patient
[2018-07-17] MEDS ORDERED: LACTULOSE 20 GM/30 ML UDC (FOR ORAL USE ONLY) PO ONE (12:45)
[2018-07-17] MEDS ORDERED: LACTULOSE 20 GM/30 ML UDC (FOR ORAL USE ONLY) ONE (12:50)
[2018-07-17] MEDS: PIPERACILLIN/TAZOB 3.375 GM 3.375 GM in DEXTROSE 5%-WATER - 50 ML IVPB SCH (13:00)
[2018-07-17] MEDS ORDERED: PT OWN MED DRAWER 7, Y5N ONE ×2 (13:30→14:47)
[2018-07-17] MEDS: SODIUM CHLORIDE 1,000 ML IV SCH (15:05)
[2018-07-17] MEDS ORDERED: ACETAMINOPHEN 325 MG TABLET (FP) PO ONE (15:34)
[2018-07-17] MEDS ORDERED: ACETAMINOPHEN 325 MG TABLET (FP) ONE (15:52)
--- NOTE | 2018-07-17 16:29 | EKG ---
Test Reason : Blood Pressure : / mmHG Vent. Rate : 090 BPM Atrial Rate : 090 BPM P-R Int : 140 ms QRS Dur : 086 ms QT Int : 376 ms P-R-T Axes : 066 -15 044 degrees QTc Int : 459 ms SINUS RHYTHM WITH PREMATURE ATRIAL COMPLEXES OTHERWISE NORMAL ECG WHEN COMPARED WITH ECG OF 23-DEC-2017 11:23, SINUS RHYTHM HAS REPLACED JUNCTIONAL RHYTHM Confirmed by MD Boo, Mick ([id number]) on 07/17/2018 4:29:03 PM Referred By: Confirmed By:Mick Haddad MD
[2018-07-17] MEDS: INSULIN SLIDING SCALE (NOVOLOG) 1 VIAL SQ SCH (16:30)
--- NOTE | 2018-07-17 17:54 | CON.GI ---
Consult Consult Specialty:: Gastroenterology Referred by:: Dr. Betzaida Gibson Reason for Consultation:: Stercoral proctitis - History of Present Illness Chief Complaint: Frequent urination and not feeling well History of Present Illness: 67[facility]. At present Piper is interactive and answers simple question but cannot account for the events of the last 24 hours. She is complaining of not feeling well with frequent urination, anal irritation due to frequent BMs to loss of appetite. She denies abdominal pain. She was seen in consultation on 06/20/17 for anemia. She had an EGD and a colonoscopy on 06/23/17 which revealed erosive antral gastritis and mild diverticulosis in the distal half of the colon. She denies any recent bleeding. I also performed an ERCP with sphincterotomy to extract CBD stones causing biliary pancreatitis in 03/17. She needed epinephrine injection and stenting for a post-sphincterotomy bleed and residual stones. The stent and residual stones were removed in 05/18. 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 She had a post-sphincerotomy bleed ), Other Renal/: Yes: Renal Calculi Heme/Onc: Yes: Anemia (transfusion requiring), Cancer (CML) Musculoskeletal: Yes: Chronic low back pain (lumbar disc disease/sciatica) Endocrine: Yes: Diabetes Mellitus, Hypothyroidism Additional Medical History: Diabetic retinopathy. 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 History of Recent Travel: No Home Medications - Allergies Allergies/Adverse Reactions: Allergies Allergy/AdvReac Type Severity Reaction Status Date / Time metronidazole [From Flagyl] Allergy Severe Rash Verified 07/16/18 17:55 metoprolol Allergy Intermediate Rash Verified 07/16/18 17:55 - Home Medications Home Medications: Ambulatory Orders Aa/Hydrolyzed Collagen, Whey [Lps Neutral Flavor Liquid] 30 ml PO DAILY Acetaminophen [Tylenol] 650 mg PO Q6H PRN 12/23/17 Albuterol 0.083% Nebulizer Pamella [Ventolin 0.083% Nebulizer Soln -] 1 neb NEB QID 12/23/17 Ammonium Lactate Lotion [Lac-Hydrin 12] 1 applic TP ASDIR 12/23/17 Ascorbic Acid [Vitamin C] 500 mg PO DAILY 12/23/17 Bisacodyl Suppository [Dulcolax Suppository -] 10 mg RC DAILY PRN 12/23/17 Dextran 70/Hypromellose [Artificial Tears Eye Drops] 1 drop OU QID 12/23/17 Diltiazem Cd [Cardizem Cd -] 120 mg PO DAILY 12/23/17 Diphenhydramine HCl 25 mg PO Q6H PRN 12/23/17 Docusate Sodium [Colace] 300 mg PO HS 12/23/17 Fluocinonide 0.05% Cream [Lidex 0.05% Cream -] 1 applic TP BID 12/23/17 Folic Acid 1 mg PO DAILY 12/23/17 Hydroxyzine HCl 10 mg PO Q6H 12/23/17 Ipratropium 0.02% Nebulizer [Atrovent 0.02% Nebulizer -] 1 amp NEB TID 12/23/17 Lactobacillus Combo No.11 [Probiotic] 1 each PO TID 12/23/17 Levothyroxine [Synthroid -] 25 mcg PO DAILY 12/23/17 Magnesium 400 mg PO BID 12/23/17 Magnesium Hydroxide [Milk of Magnesia -] 30 ml PO DAILY PRN 12/23/17 Menthol/Camphor [Sarna Anti-Itch Lotion] 1 applic TP PRN PRN 12/23/17 Morphine *Immediate Release* [Msir -] 15 mg PO BID 12/23/17 Nilotinib HCl [Tasigna] 150 mg PO BID 12/23/17 Oxycodone HCl 10 mg PO Q4H PRN 12/23/17 Oxymetazoline HCl [Nasal [place]] 1 spray NS BID 12/23/17 Pantoprazole Sodium 40 mg PO DAILY 12/23/17 Polyethylene Glycol 3350 [Miralax 119 gm Btl -] 17 gm PO DAILY 12/23/17 Pyridoxine HCl [Vitamin B6] 100 mg PO DAILY 12/23/17 Sennosides [Senna Lax] 2 tab PO DAILY 12/23/17 Torsemide 20 mg PO DAILY 12/23/17 Triamcinolone Acet 0.1% Cream [Aristocort] 0 gm TP BID 12/23/17 Vitamin B Complex 1 each PO DAILY 12/23/17 Albuterol 2.5/Ipratropium 0.5 [Duoneb -] 1 amp NEB RQID amp 12/30/17 Amox-Tr/K Cl [Augmentin 500-125mg Tablet -] 1 tab PO BID@0800,1730 #12 tablet Collagenase Clostridium Hist. [Santyl -] 1 applic TP DAILY tube 12/30/17 Insulin (Levemir) [Levemir Vial] 10 units SQ BID@0700,2200 ml 12/30/17 Insulin Sliding Scale [Novolog Vial Sliding Scale -] 1 vial SQ TIDAC units Warfarin Na 9.5 mg PO DAILY 01/30/18 Family Disease History - Family Disease History Family History: Unable to Obtain Family Disease History: CA: Father ( 69 liver cancer), Mother ( 68 stomach cancer, schizophrenia) Physical Exam-GI Vital Signs: Vital Signs Temperature 99.1 F 07/17/18 10:00 Pulse Rate 75 07/17/18 15:11 Respiratory Rate 16 07/17/18 15:11 Blood Pressure 157/73 07/17/18 15:11 O2 Sat by Pulse Oximetry (%) 94 L 07/16/18 20:50 CBC,CMP WBC 8.0 K/mm3 (4.0-10.0) 07/17/18 05:45 RBC 2.76 M/mm3 (3.60-5.2) L 07/17/18 05:45 Hgb 8.6 GM/dL (10.7-15.3) L 07/17/18 05:45 Hct 26.3 % (32.4-45.2) L 07/17/18 05:45 MCV 95.5 fl (80-96) 07/17/18 05:45 MCH 31.2 pg (25.7-33.7) 07/17/18 05:45 MCHC 32.7 g/dl (32.0-36.0) 07/17/18 05:45 RDW 19.5 % (11.6-15.6) H 07/17/18 05:45 Plt Count 96 K/MM3 (134-434) L 07/17/18 05:45 MPV 7.5 fl (7.5-11.1) 07/17/18 05:45 Absolute Neuts (auto) 6.7 K/mm3 (1.5-8.0) 07/16/18 19:00 Neutrophils % 90.6 % (42.8-82.8) H 07/16/18 19:00 Lymphocytes % 4.8 % (8-40) L D 07/16/18 19:00 Monocytes % 4.5 % (3.8-10.2) 07/16/18 19:00 Eosinophils % 0.0 % (0-4.5) D 07/16/18 19:00 Basophils % 0.1 % (0-2.0) 07/16/18 19:00 Nucleated RBC % 0 % (0-0) 07/16/18 19:00 ESR 124 mm/hr (0-30) H 07/17/18 05:45 Sodium 139 mmol/L (136-145) 07/17/18 05:45 Potassium 4.3 mmol/L (3.5-5.1) 07/17/18 05:45 Chloride 110 mmol/L (98-107) H 07/17/18 05:45 Carbon Dioxide 23 mmol/L (21-32) 07/17/18 05:45 Anion Gap 7 MMOL/L (8-16) L 07/17/18 05:45 BUN 42 mg/dL (7-18) H 07/17/18 05:45 Creatinine 1.2 mg/dL (0.55-1.3) 07/17/18 05:45 Creat Clearance w eGFR 44.54 (>60) 07/17/18 05:45 POC Glucometer 191.57557 UNITS (80-120) 07/17/18 12:46 Random Glucose 189 mg/dL (74-106) H 07/17/18 05:45 Lactic Acid 1.2 mmol/L (0.4-2.0) 07/17/18 07:50 Calcium 8.3 mg/dL (8.5-10.1) L 07/17/18 05:45 Phosphorus 2.6 mg/dL (2.5-4.9) 07/17/18 05:45 Magnesium 2.3 mg/dL (1.8-2.4) 07/17/18 05:45 Total Bilirubin 1.1 mg/dL (0.2-1) H 07/17/18 05:45 AST 57 U/L (15-37) H 07/17/18 05:45 ALT 72 U/L (13-61) H 07/17/18 05:45 Alkaline Phosphatase 268 U/L (45-117) H 07/17/18 05:45 Troponin I 0.09 ng/ml (0.00-0.05) H 07/17/18 05:45 C-Reactive Protein 12.9 MG/DL (0.00-0.3) H 07/17/18 05:45 Total Protein 9.1 g/dl (6.4-8.2) H 07/17/18 05:45 Albumin 2.4 g/dl (3.4-5.0) L 07/17/18 05:45 Lipase 58 U/L (73-393) L 07/17/18 05:45 Current Medications Generic Name Dose Route Start Last Admin Trade Name Santhosh PRN Reason Stop Dose Admin Diltiazem HCl 120 mg 07/18/18 10:00 Cardizem Cd - PO DAILY JOVITA Vancomycin HCl 1,000 mg/ 250 mls @ 166.667 mls/hr 07/17/18 21:00 Dextrose IVPB 07/17/18 22:29 ONCE ONE Protocol Piperacillin Sod/Tazobactam 50 mls @ 100 mls/hr 07/17/18 13:00 07/17/18 13:00 Sod 3.375 gm/ Dextrose IVPB 100 mls/hr Q8H-IV JOVITA Administration Protocol Sodium Chloride 1,000 mls @ 100 mls/hr 07/17/18 14:15 07/17/18 15:05 Normal Saline - IV 100 mls/hr ASDIR [facility] Administration Insulin Aspart 1 vial 07/17/18 16:30 07/17/18 16:30 Novolog Vial Sliding Scale - SQ Not Given TIDAC [facility] Protocol Levothyroxine Sodium 25 mcg 07/17/18 07:00 Synthroid - PO DAILY@0700 [facility] Senna 1 tab 07/17/18 10:00 07/17/18 10:00 Senna - PO 1 tab BID JOVITA Administration Warfarin Sodium 10 mg 07/17/18 18:00 Coumadin - PO DAILY@1800 [facility] Constitutional: Yes: Well Nourished Eyes: Yes: Conjunctiva Clear HENT: Yes: Atraumatic Neck: Yes: Supple Cardiovascular: Yes: Regular Rate and Rhythm, Murmur (2/6 ANN at LLSB) Respiratory: Yes: CTA Bilaterally Gastrointestinal Inspection: Yes: Scars (healed overlapping oblique RUQ ( nontender inicisonal hernia), Pfannensteil and umbilical incisions) ...Auscultate: Yes: Hypoactive Bowel Sounds ...Palpate: Yes: Soft, Other (nontender) ...Percussion: Yes: Tympanitic ...Rectal Exam: Yes: Guaiac Positive (full of hard and soft brown trace guaiaic positive stool) Extremities: Yes: Other (venous stasis changes and cellulitis) Edema: LUE: 3+ (erythema), RUE: 3+ (erythema) Neurological: Yes: Lethargy Labs: CBC, BMP 07/17/18 05:45 07/17/18 05:45 INR, PTT INR 2.77 (0.83-1.09) H 07/17/18 05:45 Fibrinogen 460.0 mg/dL (238-498) 07/17/18 12:35 Laboratory Tests 07/16/17 07/17/17 07/21/17 06:35 06:00 06:30 WBC Hgb Hct ESR Total Bilirubin AST 8 L ALT 10 L Alkaline Phosphatase 98 127 H C-Reactive Protein Lipase 12/23/17 12/24/17 07/16/18 10:39 06:35 19:00 WBC 7.4 Hgb 9.0 L Hct ESR Total Bilirubin AST 13 L ALT 14 Alkaline Phosphatase 278 H C-Reactive Protein Lipase 07/16/18 07/17/18 07/17/18 19:00 05:45 05:45 WBC 8.0 Hgb 8.6 L Hct 26.3 L ESR Total Bilirubin 0.8 1.1 H AST 56 H 57 H ALT 74 H 72 H Alkaline Phosphatase 282 H 268 H C-Reactive Protein Lipase 07/17/18 07/17/18 05:45 05:45 WBC Hgb Hct ESR 124 H Total Bilirubin AST ALT Alkaline Phosphatase C-Reactive Protein 12.9 H Lipase 58 L Imaging - Results Cat Scan: Report Reviewed (Heriberto Mejia Name: [facility] DEPARTMENT OF RADIOLOGY Phys: Romeo Tran RESIDENT : [id number] Age: 67 Sex : F [facility] Acct: [id number] Loc: [address] Exam Date: 07/17/18 Status: [place] [id number] Unit Number: [id number] EXAM#: TYPE/EXAM : RESULT: [id number] CT/ABDOMEN PELVIS CT W/O CONTR Clinical history: Abdominal pain. Comparison: May 03, 2017. Contiguous transaxial images were obtained from the diaphragmatic domes and pubic symphysis without the administration of oral and IV contrast. Sagittal and coronal reconstructions were performed. Resolution is moderately reduced by patient condition, including the inability to elevate the arms above the head and body habitus. Lung bases: Small pleural effusions and mild bilateral compressive atelectasis. Calcification of the mitral spine. Bone: Osteopenia, degenerative changes and scoliosis. New compression of L3. Correlate clinically. Liver: Mild hepatomegaly. Ascites. Gallbladder: Postcholecystectomy. Biliary tree: Pneumobilia. Spleen: Mild splenomegaly. Pancreas: Negative. Adrenals: Negative. Kidneys: No hydronephrosis. Probable vascular calcifications. Limited for anatomy. Pelvis: Normal bladder distention. Small amount of air most likely iatrogenic. Correlate clinically. Bowel: Moderate retention of stool and rectal impaction measuring 7.5 cm in AP dimension x 7.2 cm in width. Mild wall thickening; rule out stercoral proctitis. Adenopathy: Mildly prominent retroperitoneal nodes which will need follow-up. Other: Small hiatal hernia. Impression: Limited study. New L3 compression. Mild hepatosplenomegaly and ascites. Moderate retention of stool and rectal impaction with possible stercoral proctitis. Mildly prominent retroperitoneal lymph nodes which will need follow-up. Small pleural effusions. Other findings as above. Study was initially read by Ana M. Reported By: Oliver Steele MD 07/17/18923 Technologist: Sterling Flores Transcribed Date/Time: 07/17/18923 [employer] Salesperson: Oliver Steele Printed Date/Time: By: Signed by: Oliver Steele Signed on: 17-Jul-2018 09:26) Problem List - Problems (1) Abnormal LFTs Assessment/Plan: I suspect that this is a reactive hepatopathy to bacteremia emanating from her cellulitis superimposed on NAFLD more likely than a DILI. Her pneumobilia reflects her previous sphincterotomy but if her LFTs continue to rise an MRCP will be pursued. Code(s): R79.89 - OTHER SPECIFIED ABNORMAL FINDINGS OF BLOOD CHEMISTRY (2) Fecal impaction in rectum Assessment/Plan: Will start miralax to try to relieve the impacted feces. If bleeding ensues she may need a sigmoidoscopy to assess for stercoral ulcers. Code(s): K56.41 - FECAL IMPACTION (3) Constipation Code(s): K59.00 - CONSTIPATION, UNSPECIFIED (4) Hx of acute pancreatitis Code(s): Z87.19 - PERSONAL HISTORY OF OTHER DISEASES OF THE DIGESTIVE SYSTEM (5) Sepsis Code(s): A41.9 - SEPSIS, UNSPECIFIED ORGANISM Qualifiers: Sepsis type: sepsis due to unspecified organism Qualified Code(s): A41.9 - Sepsis, unspecified organism (6) Atrial fibrillation with RVR Code(s): I48.91 - UNSPECIFIED ATRIAL FIBRILLATION (7) COPD (chronic obstructive pulmonary disease) Code(s): J44.9 - CHRONIC OBSTRUCTIVE PULMONARY DISEASE, UNSPECIFIED (8) Diabetic neuropathy Code(s): E11.40 - TYPE 2 DIABETES MELLITUS WITH DIABETIC NEUROPATHY, UNSP (9) Diabetic retinopathy associated with controlled type 2 diabetes mellitus Code(s): E11.319 - TYPE 2 DIABETES W UNSP DIABETIC RTNOP W/O MACULAR EDEMA (10) Diverticula of colon Code(s): K57.30 - DVRTCLOS OF LG INT W/O PERFORATION OR ABSCESS W/O BLEEDING (11) History of ERCP Code(s): Z98.890 - OTHER SPECIFIED POSTPROCEDURAL STATES (12) Incisional hernia of anterior abdominal wall without obstruction or gangrene Code(s): K43.2 - INCISIONAL HERNIA WITHOUT OBSTRUCTION OR GANGRENE (13) Post ERCP bleeding Code(s): K91.840 - POSTPROC HEMOR OF A DGSTV SYS ORG FOL A DGSTV SYS PROCEDURE (14) Anemia Code(s): D64.9 - ANEMIA, UNSPECIFIED Qualifiers: Anemia type: other cause Other causes of anemia: chronic disease, other Qualified Code(s): D63.8 - Anemia in other chronic diseases classified elsewhere (15) CHF (congestive heart failure) Code(s): I50.9 - HEART FAILURE, UNSPECIFIED (16) CML (chronic myelocytic leukemia) Code(s): C92.10 - CHRONIC MYELOID LEUK, BCR/ABL-POSITIVE, NOT ACHIEVE REMIS (17) COPD (chronic obstructive pulmonary disease) Code(s): J44.9 - CHRONIC OBSTRUCTIVE PULMONARY DISEASE, UNSPECIFIED (18) Cellulitis of leg, left Code(s): L03.116 - CELLULITIS OF LEFT LOWER LIMB Assessment/Plan Miralax to relieve her fecal impaction and possible stercoral proctitis. May need to manually disempact. Will follow LFTs. If they rise will get MRCP
[2018-07-17] MEDS ORDERED: VANCOMYCIN 1,000 MG in DEXTROSE 5%-WATER - 250 ML IVPB ONE (21:00)
[2018-07-17] MEDS ORDERED: VANCOMYCIN 1 GRAM (PRE-DOCKED) 1,000 MG/250 ML BAG IVPB ONE (21:38)
[2018-07-17] MEDS ORDERED: LIDOCAINE HCL 2% JELLY (30 ML/TUBE) TP SCH (23:00)
[2018-07-17] MEDS ORDERED: BENZOCAINE 28 GM HEMORRHOIDAL OINTMENT PR ONE (23:14)
[2018-07-18] MEDS ORDERED: AZITHROMYCIN IVPB 500 MG/250 ML BAG IVPB ONE (03:25)
[2018-07-18] MEDS ORDERED: ACETAMINOPHEN 325 MG TABLET (FP) PO ONE (05:32)
[2018-07-18 06:05] LABS: HBSAG SCREEN Negative (Negative); HEP B CORE AB, TOT Negative (Negative)
[2018-07-18 06:07] LABS: BASO % 0.4 % (0-2.0); EOS % 2.4 % (0-4.5); HEMATOCRIT 25.1 % (32.4-45.2); HEMOGLOBIN 8.3 GM/dL (10.7-15.3); LYMPH % 3.3 % (8-40); MCH 31.8 pg (25.7-33.7); MCHC 32.9 g/dl (32.0-36.0); MEAN CELL VOLUME 96.4 fl (80-96); MEAN PLT VOLUME 7.8 fl (7.5-11.1); MONO % 2.9 % (3.8-10.2); PLATELET COUNT 103 K/MM3 (134-434); RBC 2.61 M/mm3 (3.60-5.2); RDW 19.6 % (11.6-15.6); WHITE BLOOD COUNT 6.9 K/mm3 (4.0-10.0)
[2018-07-18] MEDS ORDERED: ACETAMINOPHEN 325 MG TABLET (FP) ONE (06:44)
[2018-07-18 06:52] LABS: ANION GAP 8 MMOL/L (8-16); BLOOD UREA NITROGEN 32 mg/dL (7-18); CALCIUM 7.7 mg/dL (8.5-10.1); CHLORIDE 111 mmol/L (98-107); CO2 22 mmol/L (21-32); CREATININE 0.9 mg/dL (0.55-1.3); GLUCOSE,RANDOM 181 mg/dL (74-106); PHOSPHOROUS 2.4 mg/dL (2.5-4.9); POTASSIUM 4.1 mmol/L (3.5-5.1); SODIUM 140 mmol/L (136-145)
[2018-07-18] MEDS ORDERED: INSULIN (NOVOLOG) ASPART 100 UNITS/ML 10ML VIAL ONE ×3 (07:33→18:01)
[2018-07-18] MEDS: INSULIN SLIDING SCALE (NOVOLOG) 1 VIAL SQ SCH ×3 (07:39→17:17)
[2018-07-18] MEDS: SENNOSIDES 8.6MG TABLET (FP) PO SCH ×2 (10:27→21:43)
--- NOTE | 2018-07-18 11:34 | EKG ---
Test Reason : Blood Pressure : / mmHG Vent. Rate : 090 BPM Atrial Rate : 090 BPM P-R Int : 132 ms QRS Dur : 082 ms QT Int : 366 ms P-R-T Axes : 054 -06 032 degrees QTc Int : 447 ms SINUS RHYTHM WITH PREMATURE ATRIAL COMPLEXES OTHERWISE NORMAL ECG WHEN COMPARED WITH ECG OF 16-JUL-2018 21:53, NO SIGNIFICANT CHANGE WAS FOUND Confirmed by ZAINA OTLENTINO MD ([id number]) on 07/18/2018 11:34:09 AM Referred By: Confirmed By:ZAINA TOLENTINO MD
--- NOTE | 2018-07-18 11:48 | PN ---
Progress Note, Physician Chief Complaint: Ms Hernandez says she is feeling better. States she came in because she could not use the bathroom. Has had a bm. Denies cp, sob, n/v. - Current Medication List Current Medications: Active Medications Diltiazem HCl (Cardizem Cd -) 120 mg PO DAILY [facility] Last Admin: 07/18/18 10:27 Dose: 120 mg Piperacillin Sod/Tazobactam (Sod 3.375 gm/ Dextrose) 50 mls @ 100 mls/hr IVPB Q8H-IV [facility]; Protocol Last Admin: 07/17/18 13:00 Dose: 100 mls/hr Sodium Chloride (Normal Saline -) 1,000 mls @ 100 mls/hr IV ASDIR [facility] Last Admin: 07/17/18 15:05 Dose: 100 mls/hr Insulin Aspart (Novolog Vial Sliding Scale -) 1 vial SQ TIDAC [facility]; Protocol Last Admin: 07/18/18 07:39 Dose: 4 units Levothyroxine Sodium (Synthroid -) 25 mcg PO DAILY@0700 [facility] Senna (Senna -) 1 tab PO BID [facility] Last Admin: 07/18/18 10:27 Dose: 1 tab Warfarin Sodium (Coumadin -) 10 mg PO DAILY@1800 [facility] - Objective Vital Signs: Vital Signs Temperature 36.9 C 07/18/18 02:30 Pulse Rate 68 07/18/18 10:28 Respiratory Rate 17 07/18/18 10:28 Blood Pressure 142/69 07/18/18 10:28 O2 Sat by Pulse Oximetry (%) 98 07/18/18 10:28 Constitutional: Yes: No Distress, Calm, Obese Cardiovascular: Yes: Regular Rate and Rhythm. No: Gallop, Murmur, Rub Respiratory: Yes: Regular, CTA Bilaterally. No: Rales, Rhonchi, Wheezes Gastrointestinal: Yes: Normal Bowel Sounds, Soft. No: Distention, Tenderness Extremities: Yes: Erythema (BLE) Edema: Yes Edema: LLE: 3+, RLE: 3+ Labs: CBC, BMP 07/18/18 05:45 07/18/18 05:45 INR, PTT INR 2.77 (0.83-1.09) H 07/17/18 05:45 Fibrinogen 460.0 mg/dL (238-498) 11/13/18 12:35 Problem List - Problems (1) Sepsis Assessment/Plan: -most likely secondary to cellulitis -ID following -continue hydration and zosyn -improving Code(s): A41.9 - SEPSIS, UNSPECIFIED ORGANISM Qualifiers: Sepsis type: sepsis due to unspecified organism Qualified Code(s): A41.9 - Sepsis, unspecified organism (2) Cellulitis Assessment/Plan: -ID following -continue zosyn -received dose of vancomycin this admission Code(s): L03.90 - CELLULITIS, UNSPECIFIED Qualifiers: Site of cellulitis: extremity Site of cellulitis of extremity: lower extremity Laterality: unspecified laterality Qualified Code(s): L03.119 - Cellulitis of unspecified part of limb (3) Fecal impaction in rectum Assessment/Plan: -appreciate GI assistance -having bowel movements Code(s): K56.41 - FECAL IMPACTION (4) Chronic anemia Assessment/Plan: -stable Code(s): D64.9 - ANEMIA, UNSPECIFIED (5) HTN (hypertension) Assessment/Plan: -controlled -continue current management Code(s): I10 - ESSENTIAL (PRIMARY) HYPERTENSION (6) T2DM (type 2 diabetes mellitus) Assessment/Plan: -diabetic diet -continue FSBS and SSI Code(s): E11.9 - TYPE 2 DIABETES MELLITUS WITHOUT COMPLICATIONS Qualifiers: Diabetes mellitus complication status: with neurologic complications (7) CHF (congestive heart failure) Assessment/Plan: -not in exacerbation -chronic diastolic dysfunction Code(s): I50.9 - HEART FAILURE, UNSPECIFIED (8) CML (chronic myelocytic leukemia) Assessment/Plan: -? if still on tasigna -will contact Dr Longo Code(s): C92.10 - CHRONIC MYELOID LEUK, BCR/ABL-POSITIVE, NOT ACHIEVE REMIS (9) Hypothyroid Assessment/Plan: -continue synthroid Code(s): E03.9 - HYPOTHYROIDISM, UNSPECIFIED
[2018-07-18 11:57] LABS: ACANTHOCYTES 0; ANISOCYTOSIS 0; HELMET CELLS 0; HOWELL-JOLLY BODIES 0; MACROCYTOSIS 0; OVALOCYTE 0; PLATELET ESTIMATE DECREASED; ROULEAU 0; SICKELED CELLS 0; TARGET CELLS 0; TEAR DROP CELLS 0; TOXIC GRANULATION 0
[2018-07-18] MEDS ORDERED: NAPH,MB-DB/K PH,MBDB POWDER PACKET PO ONE (12:15)
[2018-07-18] MEDS: oxyCODONE HCL 5 MG TABLET PO PRN ×2 (17:10→23:51)
[2018-07-18] MEDS: SODIUM CHLORIDE 1,000 ML IV SCH (17:18)
[2018-07-18] MEDS ORDERED: DEXTROSE 5%-WATER - 50 ML IVPB ONE (17:57)
[2018-07-18] MEDS ORDERED: PIPERACILLIN/TAZOBACTAM 3.375 GM VIAL IVPB ONE (17:57)
[2018-07-18] MEDS: PIPERACILLIN/TAZOB 3.375 GM 3.375 GM in DEXTROSE 5%-WATER - 50 ML IVPB SCH (18:04)
[2018-07-18 20:00] LABS: INR 2.87 (0.83-1.09); PROTHROMBIN TIME (PATIENT) 34.2 SEC (9.7-13.0)
[2018-07-19] MEDS ORDERED: DEXTROSE 5%-WATER - 50 ML IVPB ONE ×3 (00:30→17:17)
[2018-07-19] MEDS ORDERED: PIPERACILLIN/TAZOBACTAM 3.375 GM VIAL IVPB ONE ×3 (00:30→17:17)
[2018-07-19] MEDS: PIPERACILLIN/TAZOB 3.375 GM 3.375 GM in DEXTROSE 5%-WATER - 50 ML IVPB SCH ×3 (02:38→17:20)
[2018-07-19] MEDS: LEVOTHYROXINE NA 25 MCG TABLET (FP) PO SCH (06:25)
[2018-07-19] MEDS: INSULIN SLIDING SCALE (NOVOLOG) 1 VIAL SQ SCH ×3 (06:26→16:35)
[2018-07-19] MEDS: oxyCODONE HCL 5 MG TABLET PO PRN ×3 (07:52→20:02)
[2018-07-19 08:00] LABS: BASO % 0.1 % (0-2.0); EOS % 7.9 % (0-4.5); HEMATOCRIT 26.8 % (32.4-45.2); HEMOGLOBIN 8.6 GM/dL (10.7-15.3); LYMPH % 7.1 % (8-40); MCHC 31.9 g/dl (32.0-36.0); MEAN CELL VOLUME 97.1 fl (80-96); MEAN PLT VOLUME 7.9 fl (7.5-11.1); MONO % 4.6 % (3.8-10.2); NEUT % 80.3 % (42.8-82.8); PLATELET COUNT 127 K/MM3 (134-434); RBC 2.76 M/mm3 (3.60-5.2); RDW 19.5 % (11.6-15.6); WHITE BLOOD COUNT 5.8 K/mm3 (4.0-10.0)
[2018-07-19 08:29] LABS: ANION GAP 6 MMOL/L (8-16); BLOOD UREA NITROGEN 33 mg/dL (7-18); CALCIUM 7.7 mg/dL (8.5-10.1); CHLORIDE 111 mmol/L (98-107); CO2 22 mmol/L (21-32); CREATININE 1.1 mg/dL (0.55-1.3); GLUCOSE,RANDOM 136 mg/dL (74-106); MAGNESIUM 2.3 mg/dL (1.8-2.4); PHOSPHOROUS 3.1 mg/dL (2.5-4.9); POTASSIUM 3.8 mmol/L (3.5-5.1); SODIUM 139 mmol/L (136-145)
[2018-07-19 08:30] LABS: INR 2.19 (0.83-1.09)
[2018-07-19] MEDS: SENNOSIDES 8.6MG TABLET (FP) PO SCH ×2 (09:26→23:16)
--- NOTE | 2018-07-19 10:36 | PN ---
Progress Note, Physician History of Present Illness: patient stable no new issues says she is feeling much better leg starting to calm down - Current Medication List Current Medications: Active Medications Diltiazem HCl (Cardizem Cd -) 120 mg PO DAILY [facility] Last Admin: 07/19/18 09:26 Dose: 120 mg Piperacillin Sod/Tazobactam (Sod 3.375 gm/ Dextrose) 50 mls @ 100 mls/hr IVPB Q8H-IV [facility]; Protocol Last Admin: 07/19/18 09:27 Dose: 100 mls/hr Sodium Chloride (Normal Saline -) 1,000 mls @ 100 mls/hr IV ASDIR [facility] Last Admin: 07/18/18 17:18 Dose: Not Given Insulin Aspart (Novolog Vial Sliding Scale -) 1 vial SQ TIDAC [facility]; Protocol Last Admin: 07/19/18 06:26 Dose: Not Given Levothyroxine Sodium (Synthroid -) 25 mcg PO DAILY@0700 [facility] Last Admin: 07/19/18 06:25 Dose: 25 mcg Oxycodone HCl (Roxicodone -) 10 mg PO Q6H PRN PRN Reason: PAIN LEVEL 6-10 Last Admin: 07/19/18 07:52 Dose: 10 mg Senna (Senna -) 1 tab PO BID [facility] Last Admin: 07/19/18 09:26 Dose: 1 tab Warfarin Sodium (Coumadin -) 10 mg PO DAILY@1800 [facility] - Objective Vital Signs: Vital Signs Temperature 98.2 F 07/19/18 05:50 Pulse Rate 75 07/19/18 05:50 Respiratory Rate 20 07/19/18 05:50 Blood Pressure 133/60 07/19/18 05:50 O2 Sat by Pulse Oximetry (%) 94 L 07/18/18 21:00 Constitutional: Yes: No Distress, Calm Cardiovascular: Yes: Regular Rate and Rhythm Respiratory: Yes: Regular, CTA Bilaterally Gastrointestinal: Yes: Normal Bowel Sounds, Soft Musculoskeletal: Yes: WNL Extremities: Yes: WNL Neurological: Yes: Alert, Oriented Psychiatric: Yes: Alert, Oriented Labs: CBC, BMP 07/19/18 07:10 07/19/18 07:10 INR, PTT INR 2.19 (0.83-1.09) H 07/19/18 07:10 Fibrinogen 460.0 mg/dL (238-498) 07/17/18 12:35 Assessment/Plan Problem List - Problems (1) Sepsis Code(s): A41.9 - SEPSIS, UNSPECIFIED ORGANISM Qualifiers: Sepsis type: sepsis due to unspecified organism Qualified Code(s): A41.9 - Sepsis, unspecified organism (2) Cellulitis Code(s): L03.90 - CELLULITIS, UNSPECIFIED Qualifiers: Site of cellulitis: extremity Site of cellulitis of extremity: lower extremity Laterality: unspecified laterality Qualified Code(s): L03.119 - Cellulitis of unspecified part of limb (3) Fecal impaction in rectum Code(s): K56.41 - FECAL IMPACTION (4) Chronic anemia Code(s): D64.9 - ANEMIA, UNSPECIFIED (5) HTN (hypertension) Code(s): I10 - ESSENTIAL (PRIMARY) HYPERTENSION (6) T2DM (type 2 diabetes mellitus) Code(s): E11.9 - TYPE 2 DIABETES MELLITUS WITHOUT COMPLICATIONS Qualifiers: Diabetes mellitus complication status: with neurologic complications (7) CHF (congestive heart failure) Code(s): I50.9 - HEART FAILURE, UNSPECIFIED (8) CML (chronic myelocytic leukemia) Code(s): C92.10 - CHRONIC MYELOID LEUK, BCR/ABL-POSITIVE, NOT ACHIEVE REMIS (9) Hypothyroid Code(s): E03.9 - HYPOTHYROIDISM, UNSPECIFIED plan continue current abx elevation of the legs watch for fever rest as per the team
--- NOTE | 2018-07-19 10:40 | PN ---
Progress Note, Physician History of Present Illness: patient continues to improve comfortable feels tired legs look better still swollen wound cx noted - Current Medication List Current Medications: Active Medications Diltiazem HCl (Cardizem Cd -) 120 mg PO DAILY [facility] Last Admin: 07/19/18 09:26 Dose: 120 mg Piperacillin Sod/Tazobactam (Sod 3.375 gm/ Dextrose) 50 mls @ 100 mls/hr IVPB Q8H-IV [facility]; Protocol Last Admin: 07/19/18 09:27 Dose: 100 mls/hr Sodium Chloride (Normal Saline -) 1,000 mls @ 100 mls/hr IV ASDIR [facility] Last Admin: 07/18/18 17:18 Dose: Not Given Insulin Aspart (Novolog Vial Sliding Scale -) 1 vial SQ TIDAC [facility]; Protocol Last Admin: 07/19/18 06:26 Dose: Not Given Levothyroxine Sodium (Synthroid -) 25 mcg PO DAILY@0700 [facility] Last Admin: 07/19/18 06:25 Dose: 25 mcg Oxycodone HCl (Roxicodone -) 10 mg PO Q6H PRN PRN Reason: PAIN LEVEL 6-10 Last Admin: 07/19/18 07:52 Dose: 10 mg Senna (Senna -) 1 tab PO BID [facility] Last Admin: 07/19/18 09:26 Dose: 1 tab Warfarin Sodium (Coumadin -) 10 mg PO DAILY@1800 [facility] - Objective Vital Signs: Vital Signs Temperature 98.2 F 07/19/18 05:50 Pulse Rate 75 07/19/18 05:50 Respiratory Rate 20 07/19/18 05:50 Blood Pressure 133/60 07/19/18 05:50 O2 Sat by Pulse Oximetry (%) 94 L 07/18/18 21:00 Constitutional: Yes: No Distress, Calm, Obese Cardiovascular: Yes: S1, S2 Respiratory: Yes: Regular, CTA Bilaterally Gastrointestinal: Yes: Normal Bowel Sounds, Soft Musculoskeletal: Yes: WNL Extremities: Yes: Erythema, Other Edema: LLE: 2+, RLE: 2+ Wound/Incision: Yes: Clean/Dry, Open to air Neurological: Yes: Alert, Oriented Psychiatric: Yes: Alert, Oriented Labs: CBC, BMP 07/19/18 07:10 07/19/18 07:10 INR, PTT INR 2.19 (0.83-1.09) H 07/19/18 07:10 Fibrinogen 460.0 mg/dL (238-498) 07/17/18 12:35 Assessment/Plan Problem List - Problems (1) Sepsis Code(s): A41.9 - SEPSIS, UNSPECIFIED ORGANISM Qualifiers: Sepsis type: sepsis due to unspecified organism Qualified Code(s): A41.9 - Sepsis, unspecified organism (2) Cellulitis Code(s): L03.90 - CELLULITIS, UNSPECIFIED Qualifiers: Site of cellulitis: extremity Site of cellulitis of extremity: lower extremity Laterality: unspecified laterality Qualified Code(s): L03.119 - Cellulitis of unspecified part of limb (3) Fecal impaction in rectum Code(s): K56.41 - FECAL IMPACTION (4) Chronic anemia Code(s): D64.9 - ANEMIA, UNSPECIFIED (5) HTN (hypertension) Code(s): I10 - ESSENTIAL (PRIMARY) HYPERTENSION (6) T2DM (type 2 diabetes mellitus) Code(s): E11.9 - TYPE 2 DIABETES MELLITUS WITHOUT COMPLICATIONS Qualifiers: Diabetes mellitus complication status: with neurologic complications (7) CHF (congestive heart failure) Code(s): I50.9 - HEART FAILURE, UNSPECIFIED (8) CML (chronic myelocytic leukemia) Code(s): C92.10 - CHRONIC MYELOID LEUK, BCR/ABL-POSITIVE, NOT ACHIEVE REMIS (9) Hypothyroid Code(s): E03.9 - HYPOTHYROIDISM, UNSPECIFIED plan continue current abx await for sensitivities and finalization of the organism rest as per the team patient stable
[2018-07-19] MEDS ORDERED: INSULIN (NOVOLOG) ASPART 100 UNITS/ML 10ML VIAL ONE (11:14)
--- NOTE | 2018-07-19 12:00 | CONSULT ---
- Consultation REQUESTING PROVIDER: CONSULT REQUEST: We have been asked to surgically evaluate this patient for (b/ l le ulcers). PCP:Grant Garcia MD HPI: 67 y/o F, resident of [facility], w/ PMHx htn, hld, DM, Afib on Coumadin, prior DVT, CML, COPD, pulm htn, hypothyroidism, h/o R heel DM ulcer and chronic osteomyelitis s/p right heel debridement and bone biopsy (05/12/17, Dr Farmer) , PAD, s/p aortogram, lle angio/SFA atherectomy and DCB angioplasty (01/07/16, Dr Baker), now a/w lethargy and altered mental status. Vascular consulted for evaluation of b/l le ulcers. Pt reports she had a large ulcer over her left mckeon for approximately 9 months which began as an abscess, s/p I&D 12/27/[address] Baker. Reports daily dressing changes (cannot remember what was used) at [facility] with resolution of the ulcer a few weeks ago. Denies any current ulcerations, endorses dry skin to b/l le's which she uses aquaphor to treat. Was a prior smoker (2 ppd), quit in 2013. Denies cp/sob, n/v/d. Pt reports being admitted to [facility] over one year ago due to her lower extremity wounds, and inability to ambulate. Currently she reports ambulating minimally with use of a walker. PAST MEDICAL HISTORY: hypertension, hyperlipidemia, diabetes mellitus, Afib on coumadin, prior DVT (uncertain which lower extremity), CML, COPD, congenital goiter, pulmonary hypertension, hypothyroidism, choledocholithiasis, biliary pancreatitis PAST SURGICAL HISTORY: cholecystectomy, ERCP with stenting in 2013, , Hernia Repair, RLE Angio 04/14/16 Home Medications Medication Instructions Recorded Albuterol Sulfate 2.5 mg IH Q8H PRN 07/18/18 Ammonium Lactate Lotion 1 applic TP ASDIR 07/18/18 [Lac-Hydrin 12% Lotion -] Ascorbic Acid [Vitamin C -] 500 mg PO DAILY 07/18/18 Bromfenac Sodium [Prolensa] 1 drop OD 07/18/18 Ciprofloxacin 0.3% Eye Drops 1 drop OS Q4H 07/18/18 [Ciloxan 0.3% Eye Drops -] Collagenase Clostridium Hist. 1 applic TP DAILY 07/18/18 [Santyl] Gabapentin [Neurontin -] 100 mg PO Q8H 07/18/18 Ipratropium [place] 0.2 mg IH Q8H PRN 07/18/18 L. Acidophilus/Bifid. Animalis 1 each PO TID 07/18/18 [Probiotic 5 Billion Cell Cap] Oxycodone HCl 10 mg PO Q6H PRN 07/18/18 Polyethylene Glycol 3350 [Miralax 17 gm PO TID 07/18/18 (For Bowel Prep) -] Prednisolone 1% Ophthalmic [Pred 1 drop OU Q4H 07/18/18 Forte 1% -] Pyridoxine HCl (B-6) [Vitamin B6] 100 mg PO DAILY 07/18/18 Torsemide [Demadex] 20 mg PO BID 07/18/18 Vitamin B Complex 1 tab PO DAILY 07/18/18 Warfarin Na [Coumadin] 10 mg PO HS 07/18/18 metFORMIN HCL [Metformin HCl] 500 mg PO BID 07/18/18 Allergies Allergy/AdvReac Type Severity Reaction Status Date / Time metronidazole [From Flagyl] Allergy Severe Rash Verified 07/16/18 17:55 metoprolol Allergy Intermediate Rash Verified 07/16/18 17:55 PHYSICAL EXAM: GENERAL: Awake, alert, and fully oriented, in no acute distress. HEAD: Normal with no signs of trauma. LOWER EXTREMITIES: B/L le's with stasis dermatitis and hyperpigmentation noted circumstantially to mid calf. +scaling of skin L>>R. Well healed l anterior mckeon ulcer with <1cm circular scabbing present, no erythema or drainage noted. No increased warmth noted over b/l les. +Onychomycosis. No ulcerations or wounds present on b/l heels or interdigital spaces. Monophasic doppler signal b/ l dp. PT signal not appreciated. 2+ edema present to mid calf b/l. Vital Signs Temperature 98.3 F 07/19/18 09:00 Pulse Rate 86 07/19/18 09:00 Respiratory Rate 20 07/19/18 09:00 Blood Pressure 151/77 07/19/18 09:00 O2 Sat by Pulse Oximetry (%) 94 L 07/19/18 09:00 Lab Results WBC 5.8 K/mm3 (4.0-10.0) 07/19/18 07:10 RBC 2.76 M/mm3 (3.60-5.2) L 07/19/18 07:10 Hgb 8.6 GM/dL (10.7-15.3) L 07/19/18 07:10 Hct 26.8 % (32.4-45.2) L 07/19/18 07:10 MCV 97.1 fl (80-96) H 07/19/18 07:10 MCHC 31.9 g/dl (32.0-36.0) L 07/19/18 07:10 RDW 19.5 % (11.6-15.6) H 07/19/18 07:10 Plt Count 127 K/MM3 (134-434) L D 07/19/18 07:10 Sodium 139 mmol/L (136-145) 07/19/18 07:10 Potassium 3.8 mmol/L (3.5-5.1) 07/19/18 07:10 Chloride 111 mmol/L (98-107) H 07/19/18 07:10 Carbon Dioxide 22 mmol/L (21-32) 07/19/18 07:10 Anion Gap 6 MMOL/L (8-16) L 07/19/18 07:10 BUN 33 mg/dL (7-18) H 07/19/18 07:10 Creatinine 1.1 mg/dL (0.55-1.3) 07/19/18 07:10 Random Glucose 136 mg/dL (74-106) H 07/19/18 07:10 Calcium 7.7 mg/dL (8.5-10.1) L 07/19/18 07:10 INR 2.19 (0.83-1.09) H 07/19/18 07:10 CBC, BMP 07/19/18 07:10 07/19/18 07:10 A/P: 67 y/o F, resident of [facility], w/ PMHx htn, hld, DM, Afib on Coumadin, prior DVT, CML, COPD, pulm htn, hypothyroidism, h/o R heel DM ulcer and chronic osteomyelitis s/p right heel debridement and bone biopsy (05/12/17, Dr Farmer) , PAD, s/p aortogram, lle angio/SFA atherectomy and DCB angioplasty (01/07/16, Dr Baker), now a/w lethargy and altered mental status. Vascular consulted for evaluation of b/l le ulcers. Small scabbing at site of prior ulcer (now healed), no open ulcerations noted. Chronic venous stasis changes present. Elevate the lower extremities above the level of the heart at all times while at rest Clean b/l legs with NS, gently removing skin scales with 4x4s, Apply Lac hydrin daily Ensure off-loading to all bony areas (heels, ankles, hips and tailbone) with Allevyn/Optifoam Off loading boots to b/l heels above d/w attending Dr Baker
[2018-07-19] MEDS ORDERED: AMMONIUM LACTATE 12% LOTION 225 GM BOTTLE TP PRN (12:31)
[2018-07-19] MEDS: SODIUM CHLORIDE 1,000 ML IV SCH (14:01)
[2018-07-19] MEDS: AMMONIUM LACTATE 12% LOTION 225 GM BOTTLE TP SCH ×2 (14:02→23:17)
--- NOTE | 2018-07-19 14:50 | PN ---
Progress Note, Physician Chief Complaint: Ms Hernandez complains of chronic back pain that is unchanged. Otherwise says she is feeling well and is without complaints. No cp, sob, n/v. - Current Medication List Current Medications: Active Medications Diltiazem HCl (Cardizem Cd -) 120 mg PO DAILY [facility] Last Admin: 07/19/18 09:26 Dose: 120 mg Piperacillin Sod/Tazobactam (Sod 3.375 gm/ Dextrose) 50 mls @ 100 mls/hr IVPB Q8H-IV [facility]; Protocol Last Admin: 07/19/18 09:27 Dose: 100 mls/hr Sodium Chloride (Normal Saline -) 1,000 mls @ 100 mls/hr IV ASDIR [facility] Last Admin: 07/19/18 14:01 Dose: 100 mls/hr Insulin Aspart (Novolog Vial Sliding Scale -) 1 vial SQ TIDAC [facility]; Protocol Last Admin: 07/19/18 11:16 Dose: 4 units Lactic Acid (Lac-Hydrin 12) 1 applic TP BID [facility] Last Admin: 07/19/18 14:02 Dose: 1 applic Levothyroxine Sodium (Synthroid -) 25 mcg PO DAILY@0700 [facility] Last Admin: 07/19/18 06:25 Dose: 25 mcg Oxycodone HCl (Roxicodone -) 10 mg PO Q6H PRN PRN Reason: PAIN LEVEL 6-10 Last Admin: 07/19/18 14:05 Dose: 10 mg Senna (Senna -) 1 tab PO BID [facility] Last Admin: 07/19/18 09:26 Dose: 1 tab Warfarin Sodium (Coumadin -) 10 mg PO DAILY@1800 [facility] - Objective Vital Signs: Vital Signs Temperature 36.8 C 07/19/18 09:00 Pulse Rate 86 07/19/18 09:00 Respiratory Rate 20 07/19/18 09:00 Blood Pressure 151/77 07/19/18 09:00 O2 Sat by Pulse Oximetry (%) 94 L 07/19/18 09:00 Constitutional: Yes: No Distress, Calm, Obese Cardiovascular: Yes: Regular Rate and Rhythm. No: Gallop, Murmur, Rub Respiratory: Yes: Regular, CTA Bilaterally. No: Rales, Rhonchi, Wheezes Gastrointestinal: Yes: Normal Bowel Sounds, Soft. No: Distention, Tenderness Extremities: Yes: Erythema, Other (flaking) Edema: Yes Edema: LLE: 3+, RLE: 3+ Labs: CBC, BMP 07/19/18 07:10 07/19/18 07:10 INR, PTT INR 2.19 (0.83-1.09) H 07/19/18 07:10 Fibrinogen 460.0 mg/dL (238-498) 07/17/18 12:35 Problem List - Problems (1) Sepsis Code(s): A41.9 - SEPSIS, UNSPECIFIED ORGANISM Qualifiers: Sepsis type: sepsis due to unspecified organism Qualified Code(s): A41.9 - Sepsis, unspecified organism (2) Cellulitis Code(s): L03.90 - CELLULITIS, UNSPECIFIED Qualifiers: Site of cellulitis: extremity Site of cellulitis of extremity: lower extremity Laterality: unspecified laterality Qualified Code(s): L03.119 - Cellulitis of unspecified part of limb (3) Fecal impaction in rectum Code(s): K56.41 - FECAL IMPACTION (4) Chronic anemia Code(s): D64.9 - ANEMIA, UNSPECIFIED (5) HTN (hypertension) Code(s): I10 - ESSENTIAL (PRIMARY) HYPERTENSION (6) T2DM (type 2 diabetes mellitus) Code(s): E11.9 - TYPE 2 DIABETES MELLITUS WITHOUT COMPLICATIONS Qualifiers: Diabetes mellitus complication status: with neurologic complications (7) CHF (congestive heart failure) Code(s): I50.9 - HEART FAILURE, UNSPECIFIED (8) CML (chronic myelocytic leukemia) Code(s): C92.10 - CHRONIC MYELOID LEUK, BCR/ABL-POSITIVE, NOT ACHIEVE REMIS (9) Hypothyroid Code(s): E03.9 - HYPOTHYROIDISM, UNSPECIFIED Assessment/Plan (1) Sepsis Assessment/Plan: -much improved -metabolic encephalopathy resolved -continue antibiotics per ID Code(s): A41.9 - SEPSIS, UNSPECIFIED ORGANISM Qualifiers: Sepsis type: sepsis due to unspecified organism Qualified Code(s): A41.9 - Sepsis, unspecified organism (2) Cellulitis Assessment/Plan: -ID following -continue zosyn -cultures resulted, will d/w Dr Pena Code(s): L03.90 - CELLULITIS, UNSPECIFIED Qualifiers: Site of cellulitis: extremity Site of cellulitis of extremity: lower extremity Laterality: unspecified laterality Qualified Code(s): L03.119 - Cellulitis of unspecified part of limb (3) Fecal impaction in rectum Assessment/Plan: -appreciate GI assistance -having bowel movements Code(s): K56.41 - FECAL IMPACTION (4) Chronic anemia Assessment/Plan: -stable Code(s): D64.9 - ANEMIA, UNSPECIFIED (5) HTN (hypertension) Assessment/Plan: -controlled -continue current management Code(s): I10 - ESSENTIAL (PRIMARY) HYPERTENSION (6) T2DM (type 2 diabetes mellitus) Assessment/Plan: -diabetic diet -continue FSBS and SSI Code(s): E11.9 - TYPE 2 DIABETES MELLITUS WITHOUT COMPLICATIONS Qualifiers: Diabetes mellitus complication status: with neurologic complications (7) CHF (congestive heart failure) Assessment/Plan: -not in exacerbation -chronic diastolic dysfunction -will stop IVF Code(s): I50.9 - HEART FAILURE, UNSPECIFIED (8) CML (chronic myelocytic leukemia) Assessment/Plan: -case d/w Dr Longo -patient is still on tasigna -will consult heme/onc about continuing in active infection Code(s): C92.10 - CHRONIC MYELOID LEUK, BCR/ABL-POSITIVE, NOT ACHIEVE REMIS (9) Hypothyroid Assessment/Plan: -continue synthroid Code(s): E03.9 - HYPOTHYROIDISM, UNSPECIFIED
[2018-07-19] MEDS ORDERED: PT OWN MED DRAWER 7, Y5N ONE (17:17)
[2018-07-19] MEDS: VANCOMYCIN 1,250 MG in DEXTROSE 5%-WATER - 250 ML IVPB SCH (17:20)
[2018-07-19] MEDS: WARFARIN NA 10 MG TABLET (FP) PO SCH (17:20)
[2018-07-19] MEDS ORDERED: ALBUTEROL SO4 0.083% IH SOL 2.5 MG/3 ML VIAL.NEB. NEB PRN (19:09)
--- NOTE | 2018-07-19 20:50 | CONSULT ---
Consult - text type - Consultation Consultation Note: Patient seen and examined 67F [place] transferred from the [place] for fever and altered mental status. 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 She had a post-sphincerotomy bleed ), Other Renal/: Yes: Renal Calculi Heme/Onc: Yes: Anemia (transfusion requiring), Cancer (CML) Musculoskeletal: Yes: Chronic low back pain (lumbar disc disease/sciatica) Endocrine: Yes: Diabetes Mellitus, Hypothyroidism Additional Medical History: Diabetic retinopathy. 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 Home Medications - Allergies Allergies/Adverse Reactions: Allergies Allergy/AdvReac Type Severity Reaction Status Date / Time metronidazole [From Flagyl] Allergy Severe Rash Verified 07/16/18 17:55 metoprolol Allergy Intermediate Rash Verified 07/16/18 17:55 - Home Medications Home Medications: Ambulatory Orders Aa/Hydrolyzed Collagen, Whey [Lps Neutral Flavor Liquid] 30 ml PO DAILY Acetaminophen [Tylenol] 650 mg PO Q6H PRN 12/23/17 Albuterol 0.083% Nebulizer Pamella [Ventolin 0.083% Nebulizer Soln -] 1 neb NEB QID 12/23/17 Ammonium Lactate Lotion [Lac-Hydrin 12] 1 applic TP ASDIR 12/23/17 Ascorbic Acid [Vitamin C] 500 mg PO DAILY 12/23/17 Bisacodyl Suppository [Dulcolax Suppository -] 10 mg RC DAILY PRN 12/23/17 Dextran 70/Hypromellose [Artificial Tears Eye Drops] 1 drop OU QID 12/23/17 Diltiazem Cd [Cardizem Cd -] 120 mg PO DAILY 12/23/17 Diphenhydramine HCl 25 mg PO Q6H PRN 12/23/17 Docusate Sodium [Colace] 300 mg PO HS 12/23/17 Fluocinonide 0.05% Cream [Lidex 0.05% Cream -] 1 applic TP BID 12/23/17 Folic Acid 1 mg PO DAILY 12/23/17 Hydroxyzine HCl 10 mg PO Q6H 12/23/17 Ipratropium 0.02% Nebulizer [Atrovent 0.02% Nebulizer -] 1 amp NEB TID 12/23/17 Lactobacillus Combo No.11 [Probiotic] 1 each PO TID 12/23/17 Levothyroxine [Synthroid -] 25 mcg PO DAILY 12/23/17 Magnesium 400 mg PO BID 12/23/17 Magnesium Hydroxide [Milk of Magnesia -] 30 ml PO DAILY PRN 12/23/17 Menthol/Camphor [Sarna Anti-Itch Lotion] 1 applic TP PRN PRN 12/23/17 Morphine *Immediate Release* [Msir -] 15 mg PO BID 12/23/17 Nilotinib HCl [Tasigna] 150 mg PO BID 12/23/17 Oxycodone HCl 10 mg PO Q4H PRN 12/23/17 Oxymetazoline HCl [Nasal [place]] 1 spray NS BID 12/23/17 Pantoprazole Sodium 40 mg PO DAILY 12/23/17 Polyethylene Glycol 3350 [Miralax 119 gm Btl -] 17 gm PO DAILY 12/23/17 Pyridoxine HCl [Vitamin B6] 100 mg PO DAILY 12/23/17 Sennosides [Senna Lax] 2 tab PO DAILY 12/23/17 Torsemide 20 mg PO DAILY 12/23/17 Triamcinolone Acet 0.1% Cream [Aristocort] 0 gm TP BID 12/23/17 Vitamin B Complex 1 each PO DAILY 12/23/17 Albuterol 2.5/Ipratropium 0.5 [Duoneb -] 1 amp NEB RQID amp 12/30/17 Amox-Tr/K Cl [Augmentin 500-125mg Tablet -] 1 tab PO BID@0800,1730 #12 tablet Collagenase Clostridium Hist. [Santyl -] 1 applic TP DAILY tube 12/30/17 Insulin (Levemir) [Levemir Vial] 10 units SQ BID@0700,2200 ml 12/30/17 Insulin Sliding Scale [Novolog Vial Sliding Scale -] 1 vial SQ TIDAC units Warfarin Na 9.5 mg PO DAILY 01/30/18 Family Disease History - Family Disease History Family History: Unable to Obtain Family Disease History: CA: Father ( 69 liver cancer), Mother ( 68 stomach cancer, schizophrenia) Imaging CT/ABDOMEN PELVIS CT W/O CONTR Clinical history: Abdominal pain. Comparison: May 03, 2017. Contiguous transaxial images were obtained from the diaphragmatic domes and pubic symphysis without the administration of oral and IV contrast. Sagittal and coronal reconstructions were performed. Resolution is moderately reduced by patient condition, including the inability to elevate the arms above the head and body habitus. Lung bases: Small pleural effusions and mild bilateral compressive atelectasis. Calcification of the mitral spine. Bone: Osteopenia, degenerative changes and scoliosis. New compression of L3. Correlate clinically. Liver: Mild hepatomegaly. Ascites. Gallbladder: Postcholecystectomy. Biliary tree: Pneumobilia. Spleen: Mild splenomegaly. Pancreas: Negative. Adrenals : Negative. Kidneys: No hydronephrosis. Probable vascular calcifications. Limited for anatomy. Pelvis: Normal bladder distention. Small amount of air most likely iatrogenic. Correlate clinically. Bowel: Moderate retention of stool and rectal impaction measuring 7.5 cm in AP dimension x 7.2 cm in width. Mild wall thickening; rule out stercoral proctitis. Adenopathy : Mildly prominent retroperitoneal nodes which will need follow-up. Other: Small hiatal hernia. Impression: Limited study. New L3 compression. Mild hepatosplenomegaly and ascites. Moderate retention of stool and rectal impaction with possible stercoral proctitis. Mildly prominent retroperitoneal lymph nodes which will need follow-up. Small pleural effusions. Last Vital Signs Temp Pulse Resp BP Pulse Ox 98.4 F 86 20 151/77 94 L 07/19/18 15:13 07/19/18 09:00 07/19/18 09:00 07/19/18 09:00 07/19/18 09:00 Cor: RSR, No murmurs, No gallops Lungs: Clear to P&A Abd: Soft, Normal bowel sounds, No organomegaly Ext:stais dermatitis/cellulitis Abnormal Lab Results 07/19/18 07/19/18 07/19/18 07:10 07:10 07:10 RBC 2.76 L Hgb 8.6 L Hct 26.8 L MCV 97.1 H MCHC 31.9 L RDW 19.5 H Plt Count 127 L D Lymphocytes % 7.1 L D Eosinophils % 7.9 H D PT with INR 26.00 H INR 2.19 H Chloride 111 H Anion Gap 6 L BUN 33 H Random Glucose 136 H Calcium 7.7 L Active Medications Generic Name Dose Route Start Last Admin Trade Name Freq PRN Reason Stop Dose Admin Albuterol Sulfate 1 amp 07/19/18 19:09 Ventolin 0.083% Nebulizer Soln - NEB Q8H PRN SHORTNESS OF BREATH Diltiazem HCl 120 mg 07/18/18 10:00 07/19/18 09:26 Cardizem Cd - PO 120 mg DAILY [facility] Administration Piperacillin Sod/Tazobactam 50 mls @ 100 mls/hr 07/17/18 13:00 07/19/18 17:20 Sod 3.375 gm/ Dextrose IVPB 100 mls/hr Q8H-IV [facility] Administration Protocol Vancomycin HCl 1,250 mg/ 250 mls @ 166.667 mls/hr 07/19/18 16:00 07/19/18 17: 20 Dextrose IVPB 166.667 mls/hr Q24H [facility] Administration Protocol Insulin Aspart 1 vial 07/17/18 16:30 07/19/18 16:35 Novolog Vial Sliding Scale - SQ 2 units TIDAC [facility] Administration Protocol Lactic Acid 1 applic 07/19/18 13:30 07/19/18 14:02 Lac-Hydrin 12 TP 1 applic BID [facility] Administration Levothyroxine Sodium 25 mcg 07/17/18 07:00 07/19/18 06:25 Synthroid - PO 25 mcg DAILY@0700 [facility] Administration Oxycodone HCl 10 mg 07/18/18 16:31 07/19/18 20:02 Roxicodone - PO 10 mg Q6H PRN Administration PAIN LEVEL 6-10 Senna 1 tab 07/17/18 10:00 07/19/18 09:26 Senna - PO 1 tab BID [facility] Administration Warfarin Sodium 10 mg 07/17/18 18:00 07/19/18 17:20 Coumadin - PO 10 mg DAILY@1800 [facility] Administration A/P 67 y/o patient with CML on tasigna ( has to reorder pills from speciality pharmacy) is here for cllulitis CML in hematologic remission, and presumably molecular remission ( last bcr;abl --nl in 07/21),[facility]ad in[facility] malignancy clinic at [facility] on treatment for cellulitis monitor cbc --mild pancytopenia nd mild coagulopathy from ongoing infection resume tasigna when patient gets her med supply
[2018-07-20] MEDS ORDERED: PIPERACILLIN/TAZOBACTAM 3.375 GM VIAL IVPB ONE ×3 (03:04→17:37)
[2018-07-20] MEDS ORDERED: DEXTROSE 5%-WATER - 50 ML IVPB ONE ×3 (03:04→17:37)
[2018-07-20] MEDS: oxyCODONE HCL 5 MG TABLET PO PRN ×4 (03:15→22:17)
[2018-07-20] MEDS: PIPERACILLIN/TAZOB 3.375 GM 3.375 GM in DEXTROSE 5%-WATER - 50 ML IVPB SCH ×5 (03:15→19:05)
[2018-07-20] MEDS: LEVOTHYROXINE NA 25 MCG TABLET (FP) PO SCH ×2 (06:29→06:54)
[2018-07-20] MEDS: INSULIN SLIDING SCALE (NOVOLOG) 1 VIAL SQ SCH ×3 (06:34→16:51)
[2018-07-20] MEDS: SENNOSIDES 8.6MG TABLET (FP) PO SCH ×2 (09:44→22:18)
[2018-07-20] MEDS: AMMONIUM LACTATE 12% LOTION 225 GM BOTTLE TP SCH ×2 (09:47→22:21)
--- NOTE | 2018-07-20 10:37 | PN ---
Progress Note, Physician History of Present Illness: patient doing well no issues - Current Medication List Current Medications: Active Medications Albuterol Sulfate (Ventolin 0.083% Nebulizer Soln -) 1 amp NEB Q8H PRN PRN Reason: SHORTNESS OF BREATH Diltiazem HCl (Cardizem Cd -) 120 mg PO DAILY [facility] Last Admin: 07/20/18 09:44 Dose: 120 mg Piperacillin Sod/Tazobactam (Sod 3.375 gm/ Dextrose) 50 mls @ 100 mls/hr IVPB Q8H-IV [facility]; Protocol Last Admin: 07/20/18 09:45 Dose: 100 mls/hr Vancomycin HCl 1,250 mg/ (Dextrose) 250 mls @ 166.667 mls/hr IVPB Q24H [facility]; Protocol Last Admin: 07/19/18 17:20 Dose: 166.667 mls/hr Insulin Aspart (Novolog Vial Sliding Scale -) 1 vial SQ TIDAC [facility]; Protocol Last Admin: 07/20/18 06:34 Dose: Not Given Lactic Acid (Lac-Hydrin 12) 1 applic TP BID [facility] Last Admin: 07/20/18 09:47 Dose: 1 applic Levothyroxine Sodium (Synthroid -) 25 mcg PO DAILY@0700 [facility] Last Admin: 07/20/18 06:29 Dose: 25 mcg Oxycodone HCl (Roxicodone -) 10 mg PO Q6H PRN PRN Reason: PAIN LEVEL 6-10 Last Admin: 07/20/18 09:48 Dose: 10 mg Senna (Senna -) 1 tab PO BID [facility] Last Admin: 07/20/18 09:44 Dose: 1 tab Warfarin Sodium (Coumadin -) 10 mg PO DAILY@1800 [facility] Last Admin: 07/19/18 17:20 Dose: 10 mg - Objective Vital Signs: Vital Signs Temperature 98.4 F 07/19/18 18:00 Pulse Rate 81 07/19/18 18:00 Respiratory Rate 20 07/19/18 18:00 Blood Pressure 152/79 07/19/18 18:00 O2 Sat by Pulse Oximetry (%) 93 L 07/19/18 21:00 Constitutional: Yes: No Distress, Calm Cardiovascular: Yes: S1, S2 Respiratory: Yes: Regular, CTA Bilaterally Gastrointestinal: Yes: Normal Bowel Sounds, Soft Musculoskeletal: Yes: Other Extremities: Yes: Erythema, Other Neurological: Yes: Alert, Oriented Psychiatric: Yes: Alert, Oriented Labs: CBC, BMP 07/19/18 07:10 07/19/18 07:10 INR, PTT INR 2.19 (0.83-1.09) H 07/19/18 07:10 Fibrinogen 460.0 mg/dL (238-498) 07/17/18 12:35 Assessment/Plan Problem List - Problems (1) Sepsis Code(s): A41.9 - SEPSIS, UNSPECIFIED ORGANISM Qualifiers: Sepsis type: sepsis due to unspecified organism Qualified Code(s): A41.9 - Sepsis, unspecified organism (2) Cellulitis Code(s): L03.90 - CELLULITIS, UNSPECIFIED Qualifiers: Site of cellulitis: extremity Site of cellulitis of extremity: lower extremity Laterality: unspecified laterality Qualified Code(s): L03.119 - Cellulitis of unspecified part of limb (3) Fecal impaction in rectum Code(s): K56.41 - FECAL IMPACTION (4) Chronic anemia Code(s): D64.9 - ANEMIA, UNSPECIFIED (5) HTN (hypertension) Code(s): I10 - ESSENTIAL (PRIMARY) HYPERTENSION (6) T2DM (type 2 diabetes mellitus) Code(s): E11.9 - TYPE 2 DIABETES MELLITUS WITHOUT COMPLICATIONS Qualifiers: Diabetes mellitus complication status: with neurologic complications (7) CHF (congestive heart failure) Code(s): I50.9 - HEART FAILURE, UNSPECIFIED (8) CML (chronic myelocytic leukemia) Code(s): C92.10 - CHRONIC MYELOID LEUK, BCR/ABL-POSITIVE, NOT ACHIEVE REMIS (9) Hypothyroid Code(s): E03.9 - HYPOTHYROIDISM, UNSPECIFIED plan continue current abx organisms noted rest as per the team patient stable wound care
--- NOTE | 2018-07-20 10:42 | PN ---
Progress Note, Physician Chief Complaint: Ms Hernandez says she needs sleep but otherwise is doing well. No cp, sob, n/v. - Current Medication List Current Medications: Active Medications Albuterol Sulfate (Ventolin 0.083% Nebulizer Soln -) 1 amp NEB Q8H PRN PRN Reason: SHORTNESS OF BREATH Diltiazem HCl (Cardizem Cd -) 120 mg PO DAILY [facility] Last Admin: 07/20/18 09:44 Dose: 120 mg Piperacillin Sod/Tazobactam (Sod 3.375 gm/ Dextrose) 50 mls @ 100 mls/hr IVPB Q8H-IV [facility]; Protocol Last Admin: 07/20/18 09:45 Dose: 100 mls/hr Vancomycin HCl 1,250 mg/ (Dextrose) 250 mls @ 166.667 mls/hr IVPB Q24H [facility]; Protocol Last Admin: 07/19/18 17:20 Dose: 166.667 mls/hr Insulin Aspart (Novolog Vial Sliding Scale -) 1 vial SQ TIDAC [facility]; Protocol Last Admin: 07/20/18 06:34 Dose: Not Given Lactic Acid (Lac-Hydrin 12) 1 applic TP BID [facility] Last Admin: 07/20/18 09:47 Dose: 1 applic Levothyroxine Sodium (Synthroid -) 25 mcg PO DAILY@0700 [facility] Last Admin: 07/20/18 06:29 Dose: 25 mcg Oxycodone HCl (Roxicodone -) 10 mg PO Q6H PRN PRN Reason: PAIN LEVEL 6-10 Last Admin: 07/20/18 09:48 Dose: 10 mg Senna (Senna -) 1 tab PO BID [facility] Last Admin: 07/20/18 09:44 Dose: 1 tab Warfarin Sodium (Coumadin -) 10 mg PO DAILY@1800 [facility] Last Admin: 07/19/18 17:20 Dose: 10 mg - Objective Vital Signs: Vital Signs Temperature 36.9 C 07/19/18 18:00 Pulse Rate 81 07/19/18 18:00 Respiratory Rate 20 07/19/18 18:00 Blood Pressure 152/79 07/19/18 18:00 O2 Sat by Pulse Oximetry (%) 93 L 07/19/18 21:00 Constitutional: Yes: No Distress, Calm, Obese Cardiovascular: Yes: Regular Rate and Rhythm. No: Gallop, Murmur, Rub Respiratory: Yes: Regular, CTA Bilaterally. No: Rales, Rhonchi, Wheezes Gastrointestinal: Yes: Normal Bowel Sounds, Soft. No: Distention, Tenderness Extremities: Yes: Erythema Edema: Yes Edema: LLE: 3+, RLE: 3+ Labs: CBC, BMP 07/19/18 07:10 07/19/18 07:10 INR, PTT INR 2.19 (0.83-1.09) H 07/19/18 07:10 Fibrinogen 460.0 mg/dL (238-498) 07/17/18 12:35 Problem List - Problems (1) Sepsis Code(s): A41.9 - SEPSIS, UNSPECIFIED ORGANISM Qualifiers: Sepsis type: sepsis due to unspecified organism Qualified Code(s): A41.9 - Sepsis, unspecified organism (2) Cellulitis Code(s): L03.90 - CELLULITIS, UNSPECIFIED Qualifiers: Site of cellulitis: extremity Site of cellulitis of extremity: lower extremity Laterality: unspecified laterality Qualified Code(s): L03.119 - Cellulitis of unspecified part of limb (3) Fecal impaction in rectum Code(s): K56.41 - FECAL IMPACTION (4) Chronic anemia Code(s): D64.9 - ANEMIA, UNSPECIFIED (5) HTN (hypertension) Code(s): I10 - ESSENTIAL (PRIMARY) HYPERTENSION (6) T2DM (type 2 diabetes mellitus) Code(s): E11.9 - TYPE 2 DIABETES MELLITUS WITHOUT COMPLICATIONS Qualifiers: Diabetes mellitus complication status: with neurologic complications (7) CHF (congestive heart failure) Code(s): I50.9 - HEART FAILURE, UNSPECIFIED (8) CML (chronic myelocytic leukemia) Code(s): C92.10 - CHRONIC MYELOID LEUK, BCR/ABL-POSITIVE, NOT ACHIEVE REMIS (9) Hypothyroid Code(s): E03.9 - HYPOTHYROIDISM, UNSPECIFIED Assessment/Plan (1) Sepsis Assessment/Plan: -much improved -metabolic encephalopathy resolved -continue antibiotics per ID Code(s): A41.9 - SEPSIS, UNSPECIFIED ORGANISM Qualifiers: Sepsis type: sepsis due to unspecified organism Qualified Code(s): A41.9 - Sepsis, unspecified organism (2) Cellulitis Assessment/Plan: -ID following -continue zosyn, vancomycin started yesterday -case d/w Dr Pena -continue zosyn over the weekend -continue vancomycin Code(s): L03.90 - CELLULITIS, UNSPECIFIED Qualifiers: Site of cellulitis: extremity Site of cellulitis of extremity: lower extremity Laterality: unspecified laterality Qualified Code(s): L03.119 - Cellulitis of unspecified part of limb (3) Fecal impaction in rectum Assessment/Plan: -appreciate GI assistance -having bowel movements Code(s): K56.41 - FECAL IMPACTION (4) Chronic anemia Assessment/Plan: -stable Code(s): D64.9 - ANEMIA, UNSPECIFIED (5) HTN (hypertension) Assessment/Plan: -elevated -torsemide 20mg daily -will increase to bid if still high -consider ACEI/ARB as well Code(s): I10 - ESSENTIAL (PRIMARY) HYPERTENSION (6) T2DM (type 2 diabetes mellitus) Assessment/Plan: -diabetic diet -continue FSBS and SSI Code(s): E11.9 - TYPE 2 DIABETES MELLITUS WITHOUT COMPLICATIONS Qualifiers: Diabetes mellitus complication status: with neurologic complications (7) CHF (congestive heart failure) Assessment/Plan: -not in exacerbation -chronic diastolic dysfunction -restart torsemide, but at 20mg daily -increase if tolerates Code(s): I50.9 - HEART FAILURE, UNSPECIFIED (8) CML (chronic myelocytic leukemia) Assessment/Plan: -heme/onc consulted -defer starting tasigna to their recommendations Code(s): C92.10 - CHRONIC MYELOID LEUK, BCR/ABL-POSITIVE, NOT ACHIEVE REMIS (9) Hypothyroid Assessment/Plan: -continue synthroid Code(s): E03.9 - HYPOTHYROIDISM, UNSPECIFIED
[2018-07-20 11:48] LABS: INR 2.58 (0.83-1.09); PROTHROMBIN TIME (PATIENT) 30.7 SEC (9.7-13.0)
[2018-07-20] MEDS ORDERED: PT OWN MED DRAWER 7, Y5N ONE ×3 (12:41→16:37)
[2018-07-20] MEDS: prednisoLONE ACETATE 1% OPHTH SUSP 5 ML BOTTLE OU SCH ×2 (12:51→15:47)
[2018-07-20] MEDS: TORSEMIDE 20 MG TABLET (FP) PO SCH (12:52)
--- NOTE | 2018-07-20 14:21 | PN ---
GI Progress Note Subjective: GI NOte: Piper reports that she is moving her bowels with Miralax. She denies abdominal or rectal pain. Her alkaline phosphatase remains elevated. - Objective Vital Signs: Vital Signs Temperature 98.4 F 07/20/18 09:00 Pulse Rate 87 07/20/18 09:00 Respiratory Rate 20 07/20/18 09:00 Blood Pressure 141/71 07/20/18 09:00 O2 Sat by Pulse Oximetry (%) 93 L 07/20/18 09:00 Laboratory Tests 07/17/18 07/17/18 05:45 05:45 Total Bilirubin 1.1 H AST 57 H ALT 72 H Alkaline Phosphatase 268 H C-Reactive Protein 12.9 H Constitutional: No Distress ...Auscultate: Yes: Normoactive Bowel Sounds ...Palpate: Yes: Soft, Other (nontender) Labs: CBC, BMP 07/19/18 07:10 07/19/18 07:10 INR, PTT INR 2.58 (0.83-1.09) H 07/20/18 10:05 Fibrinogen 460.0 mg/dL (238-498) 07/17/18 12:35 Assessment/Plan Miralax to relieve her fecal impaction and possible stercoral proctitis. MRCP to exclude recurrent CBD stones Dr Middleton will be covering this weekend Problem List - Problems (1) Abnormal LFTs Assessment/Plan: I continue to suspect reactive hepatopathy however no bacteremia was revealed in blood cultures. I will order an MRCP to exclude recurrent CBD stones as source of sepsis Code(s): R79.89 - OTHER SPECIFIED ABNORMAL FINDINGS OF BLOOD CHEMISTRY (2) Fecal impaction in rectum Assessment/Plan: Continue miralax to relieve the impacted feces. Hb has been stable Code(s): K56.41 - FECAL IMPACTION (3) Constipation Code(s): K59.00 - CONSTIPATION, UNSPECIFIED (4) Hx of acute pancreatitis Code(s): Z87.19 - PERSONAL HISTORY OF OTHER DISEASES OF THE DIGESTIVE SYSTEM (5) Sepsis Code(s): A41.9 - SEPSIS, UNSPECIFIED ORGANISM Qualifiers: Sepsis type: sepsis due to unspecified organism Qualified Code(s): A41.9 - Sepsis, unspecified organism (6) Atrial fibrillation with RVR Code(s): I48.91 - UNSPECIFIED ATRIAL FIBRILLATION (7) COPD (chronic obstructive pulmonary disease) Code(s): J44.9 - CHRONIC OBSTRUCTIVE PULMONARY DISEASE, UNSPECIFIED (8) Diabetic neuropathy Code(s): E11.40 - TYPE 2 DIABETES MELLITUS WITH DIABETIC NEUROPATHY, UNSP (9) Diabetic retinopathy associated with controlled type 2 diabetes mellitus Code(s): E11.319 - TYPE 2 DIABETES W UNSP DIABETIC RTNOP W/O MACULAR EDEMA (10) Diverticula of colon Code(s): K57.30 - DVRTCLOS OF LG INT W/O PERFORATION OR ABSCESS W/O BLEEDING (11) History of ERCP Code(s): Z98.890 - OTHER SPECIFIED POSTPROCEDURAL STATES (12) Incisional hernia of anterior abdominal wall without obstruction or gangrene Code(s): K43.2 - INCISIONAL HERNIA WITHOUT OBSTRUCTION OR GANGRENE (13) Post ERCP bleeding Code(s): K91.840 - POSTPROC HEMOR OF A DGSTV SYS ORG FOL A DGSTV SYS PROCEDURE (14) Anemia Code(s): D64.9 - ANEMIA, UNSPECIFIED Qualifiers: Anemia type: other cause Other causes of anemia: chronic disease, other Qualified Code(s): D63.8 - Anemia in other chronic diseases classified elsewhere (15) CHF (congestive heart failure) Code(s): I50.9 - HEART FAILURE, UNSPECIFIED (16) CML (chronic myelocytic leukemia) Code(s): C92.10 - CHRONIC MYELOID LEUK, BCR/ABL-POSITIVE, NOT ACHIEVE REMIS (17) COPD (chronic obstructive pulmonary disease) Code(s): J44.9 - CHRONIC OBSTRUCTIVE PULMONARY DISEASE, UNSPECIFIED (18) Cellulitis of leg, left Code(s): L03.116 - CELLULITIS OF LEFT LOWER LIMB
[2018-07-20] MEDS: VANCOMYCIN 1,250 MG in DEXTROSE 5%-WATER - 250 ML IVPB SCH (16:51)
[2018-07-20] MEDS: WARFARIN NA 10 MG TABLET (FP) PO SCH (19:04)
[2018-07-20 19:48] VITALS: BMI 38.6
[2018-07-21] MEDS ORDERED: PIPERACILLIN/TAZOBACTAM 3.375 GM VIAL IVPB ONE ×2 (00:37→09:25)
[2018-07-21] MEDS ORDERED: DEXTROSE 5%-WATER - 50 ML IVPB ONE ×2 (00:37→09:25)
[2018-07-21] MEDS: prednisoLONE ACETATE 1% OPHTH SUSP 5 ML BOTTLE OU SCH ×5 (00:51→21:49)
--- NOTE | 2018-07-21 00:56 | PN ---
Progress Note (short form) - Note Progress Note: Patient seen and examined 07/20/18 Feels well No complaints Last Vital Signs Temp Pulse Resp BP Pulse Ox 98.2 F 89 20 128/68 94 L 07/21/18 05:46 07/21/18 05:46 07/21/18 05:46 07/21/18 05:46 07/21/18 09:00 Cor: RSR, No murmurs, No gallops Lungs: Clear to P&A Abd: Soft, Normal bowel sounds, No organomegaly Ext:No significant edema Abnormal Lab Results 07/21/18 07/21/18 07/21/18 07:30 07:30 07:30 RBC 2.60 L Hgb 8.0 L Hct 24.7 L RDW 18.5 H Plt Count 132 L Lymphocytes % 5.8 L Eosinophils % 7.1 H PT with INR 46.60 H INR 3.90 H Chloride 110 H Carbon Dioxide 20 L BUN 28 H Random Glucose 116 H Calcium 7.6 L GGT 146 H AST 14 L Alkaline Phosphatase 178 H Albumin 2.0 L Active Medications Generic Name Dose Route Start Last Admin Trade Name Freq PRN Reason Stop Dose Admin Albuterol Sulfate 1 amp 07/19/18 19:09 Ventolin 0.083% Nebulizer Soln - NEB Q8H PRN SHORTNESS OF BREATH Ascorbic Acid 500 mg 07/21/18 10:00 07/21/18 09:32 Vitamin C - PO 500 mg DAILY JOVITA Administration Diltiazem HCl 120 mg 07/18/18 10:00 07/21/18 09:33 Cardizem Cd - PO 120 mg DAILY [facility]OVITA Administration Piperacillin Sod/Tazobactam 50 mls @ 100 mls/hr 07/17/18 13:00 07/21/18 09:32 Sod 3.375 gm/ Dextrose IVPB 100 mls/hr Q8H-IV [facility] Administration Protocol Vancomycin HCl 1,250 mg/ 250 mls @ 166.667 mls/hr 07/19/18 16:00 07/20/18 16: 51 Dextrose IVPB 166.667 mls/hr Q24H JOVITA Administration Protocol Insulin Aspart 1 vial 07/17/18 16:30 07/21/18 12:02 Novolog Vial Sliding Scale - SQ 4 units TIDAC JOVITA Administration Protocol Lactic Acid 1 applic 07/19/18 13:30 07/21/18 09:33 Lac-Hydrin 12 TP 1 applic BID [facility]OVITA Administration Levothyroxine Sodium 25 mcg 07/17/18 07:00 07/21/18 06:56 Synthroid - PO 25 mcg DAILY@0700 JOVITA Administration Multivitamins 1 each 07/21/18 10:00 07/21/18 09:33 Total B With C - PO 1 each DAILY [facility] Administration Oxycodone HCl 10 mg 07/18/18 16:31 07/21/18 12:40 Roxicodone - PO 10 mg Q6H PRN Administration PAIN LEVEL 6-10 Prednisolone Acetate 1 drop 07/20/18 11:00 07/21/18 00:51 Pred Forte 1% - OU Not Given Q4HWA [facility] Pyridoxine HCl 100 mg 07/21/18 10:00 07/21/18 09:32 Vitamin B6 - PO 100 mg DAILY JOVITA Administration Senna 1 tab 07/17/18 10:00 07/21/18 09:32 Senna - PO 1 tab BID [facility]ITA Administration Torsemide 20 mg 07/20/18 10:45 07/21/18 09:32 Demadex - PO 20 mg DAILY JOVITA Administration Warfarin Sodium 10 mg 07/17/18 18:00 07/20/18 19:04 Coumadin - PO 10 mg DAILY@1800 JOVITA Administration A/P 67 y/o patient with CML on tasigna ( has to reorder pills from speciality pharmacy) is here for cllulitis 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
[2018-07-21] MEDS: PIPERACILLIN/TAZOB 3.375 GM 3.375 GM in DEXTROSE 5%-WATER - 50 ML IVPB SCH ×3 (02:50→17:38)
[2018-07-21] MEDS: oxyCODONE HCL 5 MG TABLET PO PRN ×3 (04:54→18:50)
[2018-07-21] MEDS: LEVOTHYROXINE NA 25 MCG TABLET (FP) PO SCH ×3 (06:53→06:56)
[2018-07-21] MEDS: INSULIN SLIDING SCALE (NOVOLOG) 1 VIAL SQ SCH ×3 (06:55→17:01)
[2018-07-21 08:04] LABS: BASO % 0.1 % (0-2.0); EOS % 7.1 % (0-4.5); HEMATOCRIT 24.7 % (32.4-45.2); LYMPH % 5.8 % (8-40); MCH 30.7 pg (25.7-33.7); MCHC 32.2 g/dl (32.0-36.0); MEAN CELL VOLUME 95.2 fl (80-96); MEAN PLT VOLUME 7.6 fl (7.5-11.1); MONO % 5.1 % (3.8-10.2); NEUT % 81.9 % (42.8-82.8); PLATELET COUNT 132 K/MM3 (134-434); RDW 18.5 % (11.6-15.6); WHITE BLOOD COUNT 6.2 K/mm3 (4.0-10.0)
[2018-07-21 08:21] LABS: INR 3.9 (0.83-1.09); PROTHROMBIN TIME (PATIENT) 46.6 SEC (9.7-13.0)
[2018-07-21 08:44] LABS: ALK PHOS 178 U/L (45-117); ANION GAP 9 MMOL/L (8-16); BILIRUBIN,DIRECT 0.2 mg/dL (0.0-0.2); BILIRUBIN,TOTAL 0.4 mg/dL (0.2-1); BLOOD UREA NITROGEN 28 mg/dL (7-18); CALCIUM 7.6 mg/dL (8.5-10.1); CHLORIDE 110 mmol/L (98-107); CO2 20 mmol/L (21-32); CREATININE 1.1 mg/dL (0.55-1.3); GAMMA GLUTAMYL TRANSPEPTIDASE 146 U/L (5-85); GLUCOSE,RANDOM 116 mg/dL (74-106); PHOSPHOROUS 3.1 mg/dL (2.5-4.9); SGOT/AST 14 U/L (15-37); SGPT/ALT 30 U/L (13-61); SODIUM 139 mmol/L (136-145); TOT PROT 7.7 g/dl (6.4-8.2)
[2018-07-21] MEDS: ASCORBIC ACID 500 MG TABLET (FP) PO SCH (09:32)
[2018-07-21] MEDS: PYRIDOXINE HCL (B-6) 50 MG TABLET (FP) PO SCH (09:32)
[2018-07-21] MEDS: SENNOSIDES 8.6MG TABLET (FP) PO SCH ×2 (09:32→21:30)
[2018-07-21] MEDS: TORSEMIDE 20 MG TABLET (FP) PO SCH (09:32)
[2018-07-21] MEDS: VITAMIN B COMPLEX W/C COMBO TABLET (FP) PO SCH (09:33)
[2018-07-21] MEDS: AMMONIUM LACTATE 12% LOTION 225 GM BOTTLE TP SCH ×2 (09:33→21:48)
[2018-07-21] MEDS ORDERED: PYRIDOXINE HCL (B-6) 100 MG TABLET PO SCH (10:00)
[2018-07-21] MEDS ORDERED: INSULIN (NOVOLOG) ASPART 100 UNITS/ML 10ML VIAL ONE (11:42)
--- NOTE | 2018-07-21 12:20 | PN ---
Progress Note, Physician Chief Complaint: Ms Hernandez is without complaint. No cp, sob, n/v. Eager to be discharged. - Current Medication List Current Medications: Active Medications Albuterol Sulfate (Ventolin 0.083% Nebulizer Soln -) 1 amp NEB Q8H PRN PRN Reason: SHORTNESS OF BREATH Ascorbic Acid (Vitamin C -) 500 mg PO DAILY [facility] Last Admin: 07/21/18 09:32 Dose: 500 mg Diltiazem HCl (Cardizem Cd -) 120 mg PO DAILY [facility] Last Admin: 07/21/18 09:33 Dose: 120 mg Piperacillin Sod/Tazobactam (Sod 3.375 gm/ Dextrose) 50 mls @ 100 mls/hr IVPB Q8H-IV [facility]; Protocol Last Admin: 07/21/18 09:32 Dose: 100 mls/hr Vancomycin HCl 1,250 mg/ (Dextrose) 250 mls @ 166.667 mls/hr IVPB Q24H [facility]; Protocol Last Admin: 07/20/18 16:51 Dose: 166.667 mls/hr Insulin Aspart (Novolog Vial Sliding Scale -) 1 vial SQ TIDAC [facility]; Protocol Last Admin: 07/21/18 12:02 Dose: 4 units Lactic Acid (Lac-Hydrin 12) 1 applic TP BID [facility] Last Admin: 07/21/18 09:33 Dose: 1 applic Levothyroxine Sodium (Synthroid -) 25 mcg PO DAILY@0700 [facility] Last Admin: 07/21/18 06:56 Dose: 25 mcg Multivitamins (Total B With C -) 1 each PO DAILY [facility] Last Admin: 07/21/18 09:33 Dose: 1 each Oxycodone HCl (Roxicodone -) 10 mg PO Q6H PRN PRN Reason: PAIN LEVEL 6-10 Last Admin: 07/21/18 04:54 Dose: 10 mg Prednisolone Acetate (Pred Forte 1% -) 1 drop OU Q4HWA [facility] Last Admin: 07/21/18 00:51 Dose: Not Given Pyridoxine HCl (Vitamin B6 -) 100 mg PO DAILY [facility] Last Admin: 07/21/18 09:32 Dose: 100 mg Senna (Senna -) 1 tab PO BID [facility] Last Admin: 07/21/18 09:32 Dose: 1 tab Torsemide (Demadex -) 20 mg PO DAILY [facility] Last Admin: 07/21/18 09:32 Dose: 20 mg Warfarin Sodium (Coumadin -) 10 mg PO DAILY@1800 [facility] Last Admin: 07/20/18 19:04 Dose: 10 mg - Objective Vital Signs: Vital Signs Temperature 36.8 C 07/21/18 05:46 Pulse Rate 89 07/21/18 05:46 Respiratory Rate 20 07/21/18 05:46 Blood Pressure 128/68 07/21/18 05:46 O2 Sat by Pulse Oximetry (%) 93 L 07/20/18 21:00 Constitutional: Yes: No Distress, Calm, Obese Cardiovascular: Yes: Regular Rate and Rhythm. No: Gallop, Murmur, Rub Respiratory: Yes: Regular, CTA Bilaterally. No: Rales, Rhonchi, Wheezes Gastrointestinal: Yes: Normal Bowel Sounds, Soft. No: Distention, Tenderness Extremities: Yes: Erythema (much improved) Edema: Yes Edema: LLE: 2+, RLE: 2+ Labs: CBC, BMP 07/21/18 07:30 07/21/18 07:30 INR, PTT INR 3.90 (0.83-1.09) H 07/21/18 07:30 Fibrinogen 460.0 mg/dL (238-498) 07/17/18 12:35 Problem List - Problems (1) Sepsis Code(s): A41.9 - SEPSIS, UNSPECIFIED ORGANISM Qualifiers: Sepsis type: sepsis due to unspecified organism Qualified Code(s): A41.9 - Sepsis, unspecified organism (2) Cellulitis Code(s): L03.90 - CELLULITIS, UNSPECIFIED Qualifiers: Site of cellulitis: extremity Site of cellulitis of extremity: lower extremity Laterality: unspecified laterality Qualified Code(s): L03.119 - Cellulitis of unspecified part of limb (3) Fecal impaction in rectum Code(s): K56.41 - FECAL IMPACTION (4) Chronic anemia Code(s): D64.9 - ANEMIA, UNSPECIFIED (5) HTN (hypertension) Code(s): I10 - ESSENTIAL (PRIMARY) HYPERTENSION (6) T2DM (type 2 diabetes mellitus) Code(s): E11.9 - TYPE 2 DIABETES MELLITUS WITHOUT COMPLICATIONS Qualifiers: Diabetes mellitus complication status: with neurologic complications (7) CHF (congestive heart failure) Code(s): I50.9 - HEART FAILURE, UNSPECIFIED (8) CML (chronic myelocytic leukemia) Code(s): C92.10 - CHRONIC MYELOID LEUK, BCR/ABL-POSITIVE, NOT ACHIEVE REMIS (9) Hypothyroid Code(s): E03.9 - HYPOTHYROIDISM, UNSPECIFIED Assessment/Plan (1) Sepsis Assessment/Plan: -continue antibiotics per ID Code(s): A41.9 - SEPSIS, UNSPECIFIED ORGANISM Qualifiers: Sepsis type: sepsis due to unspecified organism Qualified Code(s): A41.9 - Sepsis, unspecified organism (2) Cellulitis Assessment/Plan: -ID following -continue zosyn today and tomorrow -continue vancomycin Code(s): L03.90 - CELLULITIS, UNSPECIFIED Qualifiers: Site of cellulitis: extremity Site of cellulitis of extremity: lower extremity Laterality: unspecified laterality Qualified Code(s): L03.119 - Cellulitis of unspecified part of limb (3) Fecal impaction in rectum Assessment/Plan: -appreciate GI assistance -having bowel movements Code(s): K56.41 - FECAL IMPACTION (4) Chronic anemia Assessment/Plan: -stable Code(s): D64.9 - ANEMIA, UNSPECIFIED (5) HTN (hypertension) Assessment/Plan: -improved today -continue torsemide and cardizem Code(s): I10 - ESSENTIAL (PRIMARY) HYPERTENSION (6) T2DM (type 2 diabetes mellitus) Assessment/Plan: -diabetic diet -continue FSBS and SSI Code(s): E11.9 - TYPE 2 DIABETES MELLITUS WITHOUT COMPLICATIONS Qualifiers: Diabetes mellitus complication status: with neurologic complications (7) CHF (congestive heart failure) Assessment/Plan: -not in exacerbation -chronic diastolic dysfunction -swelling improved with torsemide -continue torsemide 20mg daily Code(s): I50.9 - HEART FAILURE, UNSPECIFIED (8) CML (chronic myelocytic leukemia) Assessment/Plan: -heme/onc consulted -defer starting tasigna to their recommendations Code(s): C92.10 - CHRONIC MYELOID LEUK, BCR/ABL-POSITIVE, NOT ACHIEVE REMIS (9) Hypothyroid Assessment/Plan: -continue synthroid Code(s): E03.9 - HYPOTHYROIDISM, UNSPECIFIED
--- NOTE | 2018-07-21 13:47 | PN ---
Progress Note, Physician History of Present Illness: stable no new issues - Current Medication List Current Medications: Active Medications Albuterol Sulfate (Ventolin 0.083% Nebulizer Soln -) 1 amp NEB Q8H PRN PRN Reason: SHORTNESS OF BREATH Ascorbic Acid (Vitamin C -) 500 mg PO DAILY [facility] Last Admin: 07/21/18 09:32 Dose: 500 mg Diltiazem HCl (Cardizem Cd -) 120 mg PO DAILY [facility] Last Admin: 07/21/18 09:33 Dose: 120 mg Piperacillin Sod/Tazobactam (Sod 3.375 gm/ Dextrose) 50 mls @ 100 mls/hr IVPB Q8H-IV [facility]; Protocol Last Admin: 07/21/18 09:32 Dose: 100 mls/hr Vancomycin HCl 1,250 mg/ (Dextrose) 250 mls @ 166.667 mls/hr IVPB Q24H [facility]; Protocol Last Admin: 07/20/18 16:51 Dose: 166.667 mls/hr Insulin Aspart (Novolog Vial Sliding Scale -) 1 vial SQ TIDAC [facility]; Protocol Last Admin: 07/21/18 12:02 Dose: 4 units Lactic Acid (Lac-Hydrin 12) 1 applic TP BID [facility] Last Admin: 07/21/18 09:33 Dose: 1 applic Levothyroxine Sodium (Synthroid -) 25 mcg PO DAILY@0700 [facility] Last Admin: 07/21/18 06:56 Dose: 25 mcg Multivitamins (Total B With C -) 1 each PO DAILY [facility] Last Admin: 07/21/18 09:33 Dose: 1 each Oxycodone HCl (Roxicodone -) 10 mg PO Q6H PRN PRN Reason: PAIN LEVEL 6-10 Last Admin: 07/21/18 12:40 Dose: 10 mg Prednisolone Acetate (Pred Forte 1% -) 1 drop OU Q4HWA [facility] Last Admin: 07/21/18 00:51 Dose: Not Given Pyridoxine HCl (Vitamin B6 -) 100 mg PO DAILY [facility] Last Admin: 07/21/18 09:32 Dose: 100 mg Senna (Senna -) 1 tab PO BID [facility] Last Admin: 07/21/18 09:32 Dose: 1 tab Torsemide (Demadex -) 20 mg PO DAILY [facility] Last Admin: 07/21/18 09:32 Dose: 20 mg Warfarin Sodium (Coumadin -) 10 mg PO DAILY@1800 [facility] Last Admin: 07/20/18 19:04 Dose: 10 mg - Objective Vital Signs: Vital Signs Temperature 98.2 F 07/21/18 05:46 Pulse Rate 89 07/21/18 05:46 Respiratory Rate 20 07/21/18 05:46 Blood Pressure 128/68 07/21/18 05:46 O2 Sat by Pulse Oximetry (%) 94 L 07/21/18 09:00 Constitutional: Yes: No Distress, Calm, Obese Cardiovascular: Yes: Regular Rate and Rhythm Respiratory: Yes: Regular, CTA Bilaterally Gastrointestinal: Yes: Normal Bowel Sounds, Soft Musculoskeletal: Yes: WNL Extremities: Yes: Other Neurological: Yes: Alert, Oriented Psychiatric: Yes: Alert, Oriented Labs: CBC, BMP 07/21/18 07:30 07/21/18 07:30 INR, PTT INR 3.90 (0.83-1.09) H 07/21/18 07:30 Fibrinogen 460.0 mg/dL (238-498) 07/17/18 12:35 Assessment/Plan Problem List - Problems (1) Sepsis Code(s): A41.9 - SEPSIS, UNSPECIFIED ORGANISM Qualifiers: Sepsis type: sepsis due to unspecified organism Qualified Code(s): A41.9 - Sepsis, unspecified organism (2) Cellulitis Code(s): L03.90 - CELLULITIS, UNSPECIFIED Qualifiers: Site of cellulitis: extremity Site of cellulitis of extremity: lower extremity Laterality: unspecified laterality Qualified Code(s): L03.119 - Cellulitis of unspecified part of limb (3) Fecal impaction in rectum Code(s): K56.41 - FECAL IMPACTION (4) Chronic anemia Code(s): D64.9 - ANEMIA, UNSPECIFIED (5) HTN (hypertension) Code(s): I10 - ESSENTIAL (PRIMARY) HYPERTENSION (6) T2DM (type 2 diabetes mellitus) Code(s): E11.9 - TYPE 2 DIABETES MELLITUS WITHOUT COMPLICATIONS Qualifiers: Diabetes mellitus complication status: with neurologic complications (7) CHF (congestive heart failure) Code(s): I50.9 - HEART FAILURE, UNSPECIFIED (8) CML (chronic myelocytic leukemia) Code(s): C92.10 - CHRONIC MYELOID LEUK, BCR/ABL-POSITIVE, NOT ACHIEVE REMIS (9) Hypothyroid Code(s): E03.9 - HYPOTHYROIDISM, UNSPECIFIED plan continue current abx organisms noted rest as per the team patient stable wound care will change to oral by monday
[2018-07-21] MEDS: VANCOMYCIN 1,250 MG in DEXTROSE 5%-WATER - 250 ML IVPB SCH (17:00)
[2018-07-21] MEDS ORDERED: ACETAMINOPHEN 325 MG TABLET (FP) PO PRN (18:38)
[2018-07-22] MEDS ORDERED: DEXTROSE 5%-WATER - 50 ML IVPB ONE ×2 (00:53→09:23)
[2018-07-22] MEDS ORDERED: PIPERACILLIN/TAZOBACTAM 3.375 GM VIAL IVPB ONE ×2 (00:53→09:23)
[2018-07-22] MEDS: oxyCODONE HCL 5 MG TABLET PO PRN ×4 (00:56→18:55)
[2018-07-22] MEDS: PIPERACILLIN/TAZOB 3.375 GM 3.375 GM in DEXTROSE 5%-WATER - 50 ML IVPB SCH ×2 (01:02→09:28)
[2018-07-22] MEDS: LEVOTHYROXINE NA 25 MCG TABLET (FP) PO SCH (06:19)
[2018-07-22] MEDS: INSULIN SLIDING SCALE (NOVOLOG) 1 VIAL SQ SCH ×3 (06:20→17:02)
[2018-07-22] MEDS: prednisoLONE ACETATE 1% OPHTH SUSP 5 ML BOTTLE OU SCH ×5 (06:20→21:43)
[2018-07-22 07:16] LABS: BASO % 0.5 % (0-2.0); EOS % 8.4 % (0-4.5); HEMATOCRIT 25.3 % (32.4-45.2); HEMOGLOBIN 8.2 GM/dL (10.7-15.3); LYMPH % 5.6 % (8-40); MCH 30.9 pg (25.7-33.7); MCHC 32.4 g/dl (32.0-36.0); MEAN CELL VOLUME 95.4 fl (80-96); MEAN PLT VOLUME 7.7 fl (7.5-11.1); MONO % 6.3 % (3.8-10.2); NEUT % 79.2 % (42.8-82.8); PLATELET COUNT 137 K/MM3 (134-434); RBC 2.65 M/mm3 (3.60-5.2); RDW 18.9 % (11.6-15.6); WHITE BLOOD COUNT 5.6 K/mm3 (4.0-10.0)
[2018-07-22 07:41] LABS: PROTHROMBIN TIME (PATIENT) 48.2 SEC (9.7-13.0)
[2018-07-22 07:47] LABS: INR 4.03 (0.83-1.09)
[2018-07-22 07:56] LABS: ANION GAP 9 MMOL/L (8-16); BLOOD UREA NITROGEN 31 mg/dL (7-18); CALCIUM 7.7 mg/dL (8.5-10.1); CHLORIDE 109 mmol/L (98-107); CO2 19 mmol/L (21-32); CREATININE 1.1 mg/dL (0.55-1.3); GLUCOSE,RANDOM 149 mg/dL (74-106); MAGNESIUM 2.2 mg/dL (1.8-2.4); PHOSPHOROUS 3.5 mg/dL (2.5-4.9); SODIUM 136 mmol/L (136-145)
[2018-07-22] MEDS: PYRIDOXINE HCL (B-6) 50 MG TABLET (FP) PO SCH (09:28)
[2018-07-22] MEDS: VITAMIN B COMPLEX W/C COMBO TABLET (FP) PO SCH (09:28)
[2018-07-22] MEDS: ASCORBIC ACID 500 MG TABLET (FP) PO SCH (09:29)
[2018-07-22] MEDS: SENNOSIDES 8.6MG TABLET (FP) PO SCH ×2 (09:29→21:30)
[2018-07-22] MEDS: TORSEMIDE 20 MG TABLET (FP) PO SCH (09:29)
[2018-07-22] MEDS: AMMONIUM LACTATE 12% LOTION 225 GM BOTTLE TP SCH ×2 (09:30→21:31)
--- NOTE | 2018-07-22 13:06 | PN ---
Progress Note, Physician History of Present Illness: patient stable no new issues - Current Medication List Current Medications: Active Medications Acetaminophen (Tylenol -) 325 mg PO Q6H PRN PRN Reason: PAIN LEVEL 1-5 Last Admin: 07/21/18 18:49 Dose: 325 mg Albuterol Sulfate (Ventolin 0.083% Nebulizer Soln -) 1 amp NEB Q8H PRN PRN Reason: SHORTNESS OF BREATH Ascorbic Acid (Vitamin C -) 500 mg PO DAILY [facility] Last Admin: 07/22/18 09:29 Dose: 500 mg Diltiazem HCl (Cardizem Cd -) 120 mg PO DAILY [facility] Last Admin: 07/22/18 09:28 Dose: 120 mg Vancomycin HCl 1,250 mg/ (Dextrose) 250 mls @ 166.667 mls/hr IVPB Q24H [facility]; Protocol Last Admin: 07/21/18 17:00 Dose: 166.667 mls/hr Insulin Aspart (Novolog Vial Sliding Scale -) 1 vial SQ TIDAC [facility]; Protocol Last Admin: 07/22/18 12:00 Dose: 4 units Lactic Acid (Lac-Hydrin 12) 1 applic TP BID [facility] Last Admin: 07/22/18 09:30 Dose: 1 applic Levothyroxine Sodium (Synthroid -) 25 mcg PO DAILY@0700 [facility] Last Admin: 07/22/18 06:19 Dose: 25 mcg Multivitamins (Total B With C -) 1 each PO DAILY [facility] Last Admin: 07/22/18 09:28 Dose: 1 each Oxycodone HCl (Roxicodone -) 10 mg PO Q6H PRN PRN Reason: PAIN LEVEL 6-10 Last Admin: 07/22/18 12:57 Dose: 10 mg Prednisolone Acetate (Pred Forte 1% -) 1 drop OU Q4HWA [facility] Last Admin: 07/22/18 09:35 Dose: Not Given Pyridoxine HCl (Vitamin B6 -) 100 mg PO DAILY [facility] Last Admin: 07/22/18 09:28 Dose: 100 mg Senna (Senna -) 1 tab PO BID [facility] Last Admin: 07/22/18 09:29 Dose: 1 tab Torsemide (Demadex -) 20 mg PO DAILY [facility] Last Admin: 07/22/18 09:29 Dose: 20 mg Warfarin Sodium (Coumadin -) 10 mg PO DAILY@1800 [facility] Last Admin: 07/20/18 19:04 Dose: 10 mg - Objective Vital Signs: Vital Signs Temperature 98.8 F 07/22/18 06:00 Pulse Rate 88 07/22/18 06:00 Respiratory Rate 19 07/22/18 06:00 Blood Pressure 130/67 07/22/18 06:00 O2 Sat by Pulse Oximetry (%) 94 L 07/22/18 09:00 Constitutional: Yes: No Distress, Calm Cardiovascular: Yes: Regular Rate and Rhythm Respiratory: Yes: Regular, CTA Bilaterally Gastrointestinal: Yes: Normal Bowel Sounds, Soft Musculoskeletal: Yes: WNL Extremities: Yes: Other Wound/Incision: Yes: Other Neurological: Yes: Alert, Oriented Psychiatric: Yes: Alert, Oriented Labs: CBC, BMP 07/22/18 06:15 07/22/18 06:15 INR, PTT INR 4.03 (0.83-1.09) H* 07/22/18 06:15 Fibrinogen 460.0 mg/dL (238-498) 07/17/18 12:35 Assessment/Plan Problem List - Problems (1) Sepsis Code(s): A41.9 - SEPSIS, UNSPECIFIED ORGANISM Qualifiers: Sepsis type: sepsis due to unspecified organism Qualified Code(s): A41.9 - Sepsis, unspecified organism (2) Cellulitis Code(s): L03.90 - CELLULITIS, UNSPECIFIED Qualifiers: Site of cellulitis: extremity Site of cellulitis of extremity: lower extremity Laterality: unspecified laterality Qualified Code(s): L03.119 - Cellulitis of unspecified part of limb (3) Fecal impaction in rectum Code(s): K56.41 - FECAL IMPACTION (4) Chronic anemia Code(s): D64.9 - ANEMIA, UNSPECIFIED (5) HTN (hypertension) Code(s): I10 - ESSENTIAL (PRIMARY) HYPERTENSION (6) T2DM (type 2 diabetes mellitus) Code(s): E11.9 - TYPE 2 DIABETES MELLITUS WITHOUT COMPLICATIONS Qualifiers: Diabetes mellitus complication status: with neurologic complications (7) CHF (congestive heart failure) Code(s): I50.9 - HEART FAILURE, UNSPECIFIED (8) CML (chronic myelocytic leukemia) Code(s): C92.10 - CHRONIC MYELOID LEUK, BCR/ABL-POSITIVE, NOT ACHIEVE REMIS (9) Hypothyroid Code(s): E03.9 - HYPOTHYROIDISM, UNSPECIFIED plan continue current abx organisms noted rest as per the team patient stable wound care will change to oral by monday
--- NOTE | 2018-07-22 13:12 | PN ---
Progress Note, Physician Chief Complaint: Ms Hernandez is without complaint. No cp, sob, n/v. - Current Medication List Current Medications: Active Medications Acetaminophen (Tylenol -) 325 mg PO Q6H PRN PRN Reason: PAIN LEVEL 1-5 Last Admin: 07/21/18 18:49 Dose: 325 mg Albuterol Sulfate (Ventolin 0.083% Nebulizer Soln -) 1 amp NEB Q8H PRN PRN Reason: SHORTNESS OF BREATH Ascorbic Acid (Vitamin C -) 500 mg PO DAILY [facility] Last Admin: 07/22/18 09:29 Dose: 500 mg Diltiazem HCl (Cardizem Cd -) 120 mg PO DAILY [facility] Last Admin: 07/22/18 09:28 Dose: 120 mg Vancomycin HCl 1,250 mg/ (Dextrose) 250 mls @ 166.667 mls/hr IVPB Q24H [facility]; Protocol Last Admin: 07/21/18 17:00 Dose: 166.667 mls/hr Insulin Aspart (Novolog Vial Sliding Scale -) 1 vial SQ TIDAC [facility]; Protocol Last Admin: 07/22/18 12:00 Dose: 4 units Lactic Acid (Lac-Hydrin 12) 1 applic TP BID [facility] Last Admin: 07/22/18 09:30 Dose: 1 applic Levothyroxine Sodium (Synthroid -) 25 mcg PO DAILY@0700 [facility] Last Admin: 07/22/18 06:19 Dose: 25 mcg Multivitamins (Total B With C -) 1 each PO DAILY [facility] Last Admin: 07/22/18 09:28 Dose: 1 each Oxycodone HCl (Roxicodone -) 10 mg PO Q6H PRN PRN Reason: PAIN LEVEL 6-10 Last Admin: 07/22/18 12:57 Dose: 10 mg Prednisolone Acetate (Pred Forte 1% -) 1 drop OU Q4HWA [facility] Last Admin: 07/22/18 09:35 Dose: Not Given Pyridoxine HCl (Vitamin B6 -) 100 mg PO DAILY [facility] Last Admin: 07/22/18 09:28 Dose: 100 mg Senna (Senna -) 1 tab PO BID [facility] Last Admin: 07/22/18 09:29 Dose: 1 tab Torsemide (Demadex -) 20 mg PO DAILY [facility] Last Admin: 07/22/18 09:29 Dose: 20 mg Warfarin Sodium (Coumadin -) 10 mg PO DAILY@1800 [facility] Last Admin: 07/20/18 19:04 Dose: 10 mg - Objective Vital Signs: Vital Signs Temperature 37.1 C 07/22/18 06:00 Pulse Rate 88 07/22/18 06:00 Respiratory Rate 19 07/22/18 06:00 Blood Pressure 130/67 07/22/18 06:00 O2 Sat by Pulse Oximetry (%) 94 L 07/22/18 09:00 Constitutional: Yes: No Distress, Calm, Obese Cardiovascular: Yes: Regular Rate and Rhythm. No: Gallop, Murmur, Rub Respiratory: Yes: Regular, CTA Bilaterally. No: Rales, Rhonchi, Wheezes Gastrointestinal: Yes: Normal Bowel Sounds, Soft. No: Distention, Tenderness Extremities: Yes: WNL Edema: No Labs: CBC, BMP 07/22/18 06:15 07/22/18 06:15 INR, PTT INR 4.03 (0.83-1.09) H* 07/22/18 06:15 Fibrinogen 460.0 mg/dL (238-498) 07/17/18 12:35 Problem List - Problems (1) Sepsis Code(s): A41.9 - SEPSIS, UNSPECIFIED ORGANISM Qualifiers: Sepsis type: sepsis due to unspecified organism Qualified Code(s): A41.9 - Sepsis, unspecified organism (2) Cellulitis Code(s): L03.90 - CELLULITIS, UNSPECIFIED Qualifiers: Site of cellulitis: extremity Site of cellulitis of extremity: lower extremity Laterality: unspecified laterality Qualified Code(s): L03.119 - Cellulitis of unspecified part of limb (3) Fecal impaction in rectum Code(s): K56.41 - FECAL IMPACTION (4) Chronic anemia Code(s): D64.9 - ANEMIA, UNSPECIFIED (5) HTN (hypertension) Code(s): I10 - ESSENTIAL (PRIMARY) HYPERTENSION (6) T2DM (type 2 diabetes mellitus) Code(s): E11.9 - TYPE 2 DIABETES MELLITUS WITHOUT COMPLICATIONS Qualifiers: Diabetes mellitus complication status: with neurologic complications (7) CHF (congestive heart failure) Code(s): I50.9 - HEART FAILURE, UNSPECIFIED (8) CML (chronic myelocytic leukemia) Code(s): C92.10 - CHRONIC MYELOID LEUK, BCR/ABL-POSITIVE, NOT ACHIEVE REMIS (9) Hypothyroid Code(s): E03.9 - HYPOTHYROIDISM, UNSPECIFIED Assessment/Plan (1) Sepsis Assessment/Plan: -continue antibiotics per ID -plan to change to oral antibiotics tomorrow Code(s): A41.9 - SEPSIS, UNSPECIFIED ORGANISM Qualifiers: Sepsis type: sepsis due to unspecified organism Qualified Code(s): A41.9 - Sepsis, unspecified organism (2) Cellulitis Assessment/Plan: -ID following -zosyn discontinued -continue vancomycin -ID to change to po antibiotics tomorrow -can discharge when on oral antibiotics Code(s): L03.90 - CELLULITIS, UNSPECIFIED Qualifiers: Site of cellulitis: extremity Site of cellulitis of extremity: lower extremity Laterality: unspecified laterality Qualified Code(s): L03.119 - Cellulitis of unspecified part of limb (3) Fecal impaction in rectum Assessment/Plan: -appreciate GI assistance -having bowel movements -MRCP pending Code(s): K56.41 - FECAL IMPACTION (4) Chronic anemia Assessment/Plan: -stable Code(s): D64.9 - ANEMIA, UNSPECIFIED (5) HTN (hypertension) Assessment/Plan: -improved today -continue torsemide and cardizem Code(s): I10 - ESSENTIAL (PRIMARY) HYPERTENSION (6) T2DM (type 2 diabetes mellitus) Assessment/Plan: -diabetic diet -continue FSBS and SSI Code(s): E11.9 - TYPE 2 DIABETES MELLITUS WITHOUT COMPLICATIONS Qualifiers: Diabetes mellitus complication status: with neurologic complications (7) CHF (congestive heart failure) Assessment/Plan: -not in exacerbation -chronic diastolic dysfunction -swelling improved with torsemide -continue torsemide 20mg daily Code(s): I50.9 - HEART FAILURE, UNSPECIFIED (8) CML (chronic myelocytic leukemia) Assessment/Plan: -heme/onc consulted -defer starting tasigna to their recommendations Code(s): C92.10 - CHRONIC MYELOID LEUK, BCR/ABL-POSITIVE, NOT ACHIEVE REMIS (9) Hypothyroid Assessment/Plan: -continue synthroid Code(s): E03.9 - HYPOTHYROIDISM, UNSPECIFIED
[2018-07-22] MEDS: ALBUTEROL SO4 0.083% IH SOL 2.5 MG/3 ML VIAL.NEB. NEB PRN (13:31)
[2018-07-22] MEDS: VANCOMYCIN 1,250 MG in DEXTROSE 5%-WATER - 250 ML IVPB SCH (15:12)
[2018-07-22] MEDS ORDERED: PT OWN MED DRAWER 7, Y5N ONE (21:02)
[2018-07-23] MEDS: oxyCODONE HCL 5 MG TABLET PO PRN ×3 (01:32→15:33)
[2018-07-23] MEDS: LEVOTHYROXINE NA 25 MCG TABLET (FP) PO SCH (06:11)
[2018-07-23] MEDS: INSULIN SLIDING SCALE (NOVOLOG) 1 VIAL SQ SCH ×2 (06:11→12:44)
[2018-07-23] MEDS: prednisoLONE ACETATE 1% OPHTH SUSP 5 ML BOTTLE OU SCH ×2 (06:11→11:07)
[2018-07-23] MEDS: ALBUTEROL SO4 0.083% IH SOL 2.5 MG/3 ML VIAL.NEB. NEB PRN (07:25)
[2018-07-23 07:47] LABS: BASO % 0.2 % (0-2.0); EOS % 7.7 % (0-4.5); HEMATOCRIT 24.6 % (32.4-45.2); LYMPH % 10.7 % (8-40); MCHC 32.5 g/dl (32.0-36.0); MEAN CELL VOLUME 95.3 fl (80-96); MONO % 8.6 % (3.8-10.2); NEUT % 72.8 % (42.8-82.8); PLATELET COUNT 123 K/MM3 (134-434); RBC 2.58 M/mm3 (3.60-5.2); RDW 18.6 % (11.6-15.6); WHITE BLOOD COUNT 4.7 K/mm3 (4.0-10.0)
[2018-07-23 07:53] LABS: INR 2.29 (0.83-1.09); PROTHROMBIN TIME (PATIENT) 27.2 SEC (9.7-13.0)
[2018-07-23] MEDS ORDERED: LACTULOSE 20 GM/30 ML UDC (FOR ORAL USE ONLY) PO ONE (08:18)
[2018-07-23 08:27] LABS: ANION GAP 8 MMOL/L (8-16); BLOOD UREA NITROGEN 29 mg/dL (7-18); CALCIUM 7.9 mg/dL (8.5-10.1); CHLORIDE 109 mmol/L (98-107); CO2 20 mmol/L (21-32); CREATININE 1.1 mg/dL (0.55-1.3); GLUCOSE,RANDOM 140 mg/dL (74-106); PHOSPHOROUS 3.5 mg/dL (2.5-4.9); SODIUM 137 mmol/L (136-145)
[2018-07-23] MEDS: DOCUSATE SODIUM 100 MG CAPSULE (FP) PO SCH ×2 (08:36→15:34)
--- NOTE | 2018-07-23 10:40 | PN ---
Progress Note, Physician History of Present Illness: patient doing well no complaints legs feeling better - Current Medication List Current Medications: Active Medications Acetaminophen (Tylenol -) 325 mg PO Q6H PRN PRN Reason: PAIN LEVEL 1-5 Last Admin: 07/21/18 18:49 Dose: 325 mg Albuterol Sulfate (Ventolin 0.083% Nebulizer Soln -) 1 amp NEB Q8H PRN PRN Reason: SHORTNESS OF BREATH Last Admin: 07/23/18 07:25 Dose: 1 amp Ascorbic Acid (Vitamin C -) 500 mg PO DAILY [facility] Last Admin: 07/22/18 09:29 Dose: 500 mg Diltiazem HCl (Cardizem Cd -) 120 mg PO DAILY [facility] Last Admin: 07/22/18 09:28 Dose: 120 mg Docusate Sodium (Colace -) 100 mg PO TID [facility] Last Admin: 07/23/18 08:36 Dose: 100 mg Vancomycin HCl 1,250 mg/ (Dextrose) 250 mls @ 166.667 mls/hr IVPB Q24H [facility]; Protocol Last Admin: 07/22/18 15:12 Dose: 166.667 mls/hr Insulin Aspart (Novolog Vial Sliding Scale -) 1 vial SQ TIDAC [facility]; Protocol Last Admin: 07/23/18 06:11 Dose: 2 units Lactic Acid (Lac-Hydrin 12) 1 applic TP BID [facility] Last Admin: 07/22/18 21:31 Dose: 1 applic Levothyroxine Sodium (Synthroid -) 25 mcg PO DAILY@0700 [facility] Last Admin: 07/23/18 06:11 Dose: 25 mcg Multivitamins (Total B With C -) 1 each PO DAILY [facility] Last Admin: 07/22/18 09:28 Dose: 1 each Oxycodone HCl (Roxicodone -) 10 mg PO Q6H PRN PRN Reason: PAIN LEVEL 6-10 Last Admin: 07/23/18 08:36 Dose: 10 mg Polyethylene Glycol (Miralax (For Daily Use) -) 17 gm PO TID [facility] Prednisolone Acetate (Pred Forte 1% -) 1 drop OU Q4HWA [facility] Last Admin: 07/23/18 06:11 Dose: Not Given Pyridoxine HCl (Vitamin B6 -) 100 mg PO DAILY [facility] Last Admin: 07/22/18 09:28 Dose: 100 mg Senna (Senna -) 1 tab PO BID [facility] Last Admin: 07/22/18 21:30 Dose: 1 tab Torsemide (Demadex -) 20 mg PO DAILY [facility] Last Admin: 07/22/18 09:29 Dose: 20 mg Warfarin Sodium (Coumadin -) 10 mg PO DAILY@1800 [facility] Last Admin: 07/20/18 19:04 Dose: 10 mg - Objective Vital Signs: Vital Signs Temperature 98.5 F 07/23/18 06:38 Pulse Rate 82 07/23/18 06:38 Respiratory Rate 20 07/23/18 06:38 Blood Pressure 132/83 07/23/18 06:38 O2 Sat by Pulse Oximetry (%) 94 L 07/22/18 21:00 Constitutional: Yes: No Distress, Calm, Obese Cardiovascular: Yes: S1, S2 Respiratory: Yes: Regular, CTA Bilaterally Gastrointestinal: Yes: Normal Bowel Sounds, Soft Musculoskeletal: Yes: Other Extremities: Yes: Erythema (improved), Other Neurological: Yes: Alert, Oriented Psychiatric: Yes: Alert, Oriented Labs: CBC, BMP 07/23/18 06:30 07/23/18 06:30 INR, PTT INR 2.29 (0.83-1.09) H 07/23/18 06:30 Fibrinogen 460.0 mg/dL (238-498) 07/17/18 12:35 Assessment/Plan Problem List - Problems (1) Sepsis Code(s): A41.9 - SEPSIS, UNSPECIFIED ORGANISM Qualifiers: Sepsis type: sepsis due to unspecified organism Qualified Code(s): A41.9 - Sepsis, unspecified organism (2) Cellulitis Code(s): L03.90 - CELLULITIS, UNSPECIFIED Qualifiers: Site of cellulitis: extremity Site of cellulitis of extremity: lower extremity Laterality: unspecified laterality Qualified Code(s): L03.119 - Cellulitis of unspecified part of limb (3) Fecal impaction in rectum Code(s): K56.41 - FECAL IMPACTION (4) Chronic anemia Code(s): D64.9 - ANEMIA, UNSPECIFIED (5) HTN (hypertension) Code(s): I10 - ESSENTIAL (PRIMARY) HYPERTENSION (6) T2DM (type 2 diabetes mellitus) Code(s): E11.9 - TYPE 2 DIABETES MELLITUS WITHOUT COMPLICATIONS Qualifiers: Diabetes mellitus complication status: with neurologic complications (7) CHF (congestive heart failure) Code(s): I50.9 - HEART FAILURE, UNSPECIFIED (8) CML (chronic myelocytic leukemia) Code(s): C92.10 - CHRONIC MYELOID LEUK, BCR/ABL-POSITIVE, NOT ACHIEVE REMIS (9) Hypothyroid Code(s): E03.9 - HYPOTHYROIDISM, UNSPECIFIED plan will switch to oral will d/w the team rest as per the team patient stable
[2018-07-23] MEDS: SENNOSIDES 8.6MG TABLET (FP) PO SCH (11:06)
[2018-07-23] MEDS: PYRIDOXINE HCL (B-6) 50 MG TABLET (FP) PO SCH (11:06)
[2018-07-23] MEDS: VITAMIN B COMPLEX W/C COMBO TABLET (FP) PO SCH (11:06)
[2018-07-23] MEDS: ASCORBIC ACID 500 MG TABLET (FP) PO SCH (11:06)
[2018-07-23] MEDS: AMMONIUM LACTATE 12% LOTION 225 GM BOTTLE TP SCH (11:07)
[2018-07-23] MEDS: TORSEMIDE 20 MG TABLET (FP) PO SCH (11:07)
[2018-07-23] MEDS ORDERED: INSULIN (NOVOLOG) ASPART 100 UNITS/ML 10ML VIAL ONE (12:36)
[2018-07-23] MEDS: POLYETHYLENE GLYCOL 3350 119 GM BTL PO SCH ×2 (12:43→15:34)
--- NOTE | 2018-07-23 13:05 | DS ---
Physical Examination Vital Signs: Vital Signs Temperature 37.0 C 07/23/18 10:00 Pulse Rate 94 H 07/23/18 10:00 Respiratory Rate 18 07/23/18 10:00 Blood Pressure 124/77 07/23/18 10:00 O2 Sat by Pulse Oximetry (%) 94 L 07/23/18 09:00 Constitutional: Yes: No Distress, Calm, Obese Cardiovascular: Yes: Regular Rate and Rhythm. No: Gallop, Murmur, Rub Respiratory: Yes: Regular, CTA Bilaterally. No: Rales, Rhonchi, Wheezes Gastrointestinal: Yes: Normal Bowel Sounds, Soft. No: Distention, Tenderness Extremities: Yes: Erythema Edema: Yes Edema: LLE: 2+, RLE: 2+ Labs: CBC, BMP 07/23/18 06:30 07/23/18 06:30 Discharge Summary Reason For Visit: SEPSIS Current Active Problems Cellulitis (Acute) Constipation (Acute) Fecal impaction in rectum (Acute) Hx of acute pancreatitis (Acute) Sepsis (Acute) Hospital Course: (1) Sepsis Code(s): A41.9 - SEPSIS, UNSPECIFIED ORGANISM Qualifiers: Sepsis type: sepsis due to unspecified organism Qualified Code(s): A41.9 - Sepsis, unspecified organism (2) Cellulitis Code(s): L03.90 - CELLULITIS, UNSPECIFIED Qualifiers: Site of cellulitis: extremity Site of cellulitis of extremity: lower extremity Laterality: unspecified laterality Qualified Code(s): L03.119 - Cellulitis of unspecified part of limb (3) Fecal impaction in rectum Code(s): K56.41 - FECAL IMPACTION (4) Chronic anemia Code(s): D64.9 - ANEMIA, UNSPECIFIED (5) HTN (hypertension) Code(s): I10 - ESSENTIAL (PRIMARY) HYPERTENSION (6) T2DM (type 2 diabetes mellitus) Code(s): E11.9 - TYPE 2 DIABETES MELLITUS WITHOUT COMPLICATIONS Qualifiers: Diabetes mellitus complication status: with neurologic complications (7) CHF (congestive heart failure) Code(s): I50.9 - HEART FAILURE, UNSPECIFIED (8) CML (chronic myelocytic leukemia) Code(s): C92.10 - CHRONIC MYELOID LEUK, BCR/ABL-POSITIVE, NOT ACHIEVE REMIS (9) Hypothyroid Code(s): E03.9 - HYPOTHYROIDISM, UNSPECIFIED Ms Hernandez is a very pleasant 67 year old female who comes in with metabolic encephalopathy secondary to sepsis from cellulitis. She was admitted to the hospital and started on vancomycin and zosyn. She was seen by ID and this was continued. Wound care was consulted and cultures sent, it came back positive for MRSA. Case d/w ID and zosyn was discontinued. She improved significantly on IV antibiotics and is safe for discharge home. She can have MRCP as an outpatient if needed as she is currently stable. 32 minutes spent in discharge of this patient Condition: Stable - Instructions Diet, Activity, Other Instructions: Resume previous diet, activity per PT at SNF. Follow up with wound care as an outpatient. Daily INR checks while on clindamycin. Referrals: Markell Pena MD [Staff Physician] - Carlito Longo MD [Primary Care Provider] - Faye Velazquez MD [Staff Physician] - Jacqueline Silverio MD [Staff Physician] - Yvon Baker MD [Staff Physician] - Disposition: [facility] FACILITY - Home Medications Comprehensive Discharge Medication List: Ambulatory Orders Albuterol Sulfate 2.5 mg IH Q8H PRN 07/18/18 Ammonium Lactate Lotion [Lac-Hydrin 12] 1 applic TP ASDIR 07/18/18 Ascorbic Acid [Vitamin C -] 500 mg PO DAILY 07/18/18 Bromfenac Sodium [Prolensa] 1 drop OD 07/18/18 Ciprofloxacin 0.3% Eye Drops [Ciloxan 0.3% Eye Drops -] 1 drop OS Q4H 07/18/18 Gabapentin [Neurontin -] 100 mg PO Q8H 07/18/18 Ipratropium [place] 0.2 mg IH Q8H PRN 07/18/18 L. Acidophilus/Bifid. Animalis [Probiotic 5 Billion Cell Cap] 1 each PO TID Oxycodone HCl 10 mg PO Q6H PRN 07/18/18 Polyethylene Glycol 3350 [Miralax 255 gm Btl -] 17 gm PO TID 07/18/18 Prednisolone 1% Ophthalmic [Pred Forte 1% -] 1 drop OU Q4H 07/18/18 Pyridoxine HCl (B-6) [Vitamin B6 -] 100 mg PO DAILY 07/18/18 Torsemide [Demadex -] 20 mg PO BID 07/18/18 Vitamin B Complex 1 tab PO DAILY 07/18/18 Warfarin Na [Coumadin -] 10 mg PO HS 07/18/18 metFORMIN HCL [Metformin HCl] 500 mg PO BID 07/18/18 Clindamycin [Cleocin -] 300 mg PO Q6HPO #28 capsule 07/23/18 Diltiazem Cd [Cardizem Cd -] 120 mg PO DAILY cap.cd.24h 07/23/18 Docusate Sodium [Colace -] 100 mg PO TID capsule 07/23/18 Levothyroxine [Synthroid -] 25 mcg PO DAILY@0700 tablet 07/23/18 Polyethylene Glycol 3350 [Miralax 119 gm Btl -] 17 gm PO TID bottle 07/23/18 Sennosides [Senna -] 1 tab PO BID tablet 07/23/18
[2018-07-23 14:02] VITALS: BP 134/79; PULSE 86; TEMP 98.3
== END 2018-07-23 16:32 | DRG 871 ==
LOC: JER 17:46 → JERBED 21:59 → J6S 07-18 15:55
PROVIDERS: ADMIT Internal Medicine; ATTEND Internal Medicine
DX: A41.9 Sepsis, unspecified organism (principal); G93.41 Metabolic encephalopathy; C92.10 Chronic myeloid leukemia, BCR/ABL-positive, not having achieved remission; N17.9 Acute kidney failure, unspecified; I50.32 Chronic diastolic (congestive) heart failure; I24.8 Other forms of acute ischemic heart disease; L03.116 Cellulitis of left lower limb; K86.1 Other chronic pancreatitis; I11.0 Hypertensive heart disease with heart failure; E78.5 Hyperlipidemia, unspecified; I48.91 Unspecified atrial fibrillation; Z86.718 Personal history of other venous thrombosis and embolism; Z79.4 Long term (current) use of insulin; Z79.01 Long term (current) use of anticoagulants; J44.9 Chronic obstructive pulmonary disease, unspecified; I27.20 Pulmonary hypertension, unspecified; E03.9 Hypothyroidism, unspecified; R74.0 Nonspecific elevation of levels of transaminase and lactic acid dehydrogenase [LDH]; K56.41 Fecal impaction; E66.9 Obesity, unspecified; Z68.33 Body mass index [BMI] 33.0-33.9, adult; D64.9 Anemia, unspecified; E11.40 Type 2 diabetes mellitus with diabetic neuropathy, unspecified; E11.319 Type 2 diabetes mellitus with unspecified diabetic retinopathy without macular edema; A41.02 Sepsis due to Methicillin resistant Staphylococcus aureus
CPT/HCPCS: 11042; 11045; 29581-LT; 29581-RT; 36415; 70450-TC; 71045-TC-FY; 71250-TC; 74176-TC; 76705-TC; 80048; 80053; 80076; 81003; 81015; 82105; 82803; 82962; 82977; 83605; 83690; 83735; 84100; 84484; 85025; 85027; 85384; 85610; 85651; 85730; 86140; 86704; 86706; 86708; 87040; 87070; 87081; 87086; 87186; 87205; 87340; 87389; 87522; 93005; 93010; 93925-TC; 93970-TC; 94640; 99284-25; J0131; J7030

== ENCOUNTER 2018-07-29 15:23 | Inpatient (IN) | payer OTHER, MEDICARE ==
[2018-07-29 15:30] VITALS: BMI 34.9
--- NOTE | 2018-07-29 16:09 | PDOC ---
History of Present Illness - General Chief Complaint: Lethargy Stated Complaint: SICK Time Seen by Provider: 07/29/18 15:26 - History of Present Illness Initial Comments: 07/29/18 16:51 Patient is a 67 year old female with past medical history of HTN, HLD, DM, A.fib (on coumadin), prior DVT, CML, COPD, congenital goiter, pulmonary hypertension, hypothyroidism, choledocholithiasis, biliary pancreatitis, was BIBA from [facility] after being noted to be lethargic since yesterday. Patient was recently admitted (07/17) due to sepsis 2/2 MRSA+ LLE cellulitis. She was treated with IV vancomycin and was sent home with Clindamycin for 7 days. During the admission, patient also became positive for yeast-like UTI and possible proctitis with rectal swab positive for vanc-resistant enterococcus. As per her sister who visits patient at the [place] everyday, patient started becoming weaker 2 days ago, and today was more sleepy and has not gone out of bed all morning. Patient was then subsequently brought to the ED. Patient reports tiredness and back pain, but denies trauma, headache, changes in vision, chest pain, SOB, palpitations, abdominal pain, diarrhea, dysuria, hematuria. Past History - Past Medical History Allergies/Adverse Reactions: Allergies Allergy/AdvReac Type Severity Reaction Status Date / Time metronidazole [From Flagyl] Allergy Severe Rash Verified 07/16/18 17:55 metoprolol Allergy Intermediate Rash Verified 07/16/18 17:55 Home Medications: Ambulatory Orders RX: Albuterol Sulfate 2.5 mg IH Q8H PRN 07/18/18 RX: Ammonium Lactate Lotion [Lac-Hydrin 12] 1 applic TP ASDIR 07/18/18 RX: Ascorbic Acid [Vitamin C -] 500 mg PO DAILY 07/18/18 RX: Gabapentin [Neurontin -] 100 mg PO Q8H 07/18/18 RX: Ipratropium [place] 0.2 mg IH Q8H PRN 07/18/18 RX: L. Acidophilus/Bifid. Animalis [Probiotic 5 Billion Cell Cap] 1 each PO TID 07/18/18 RX: Oxycodone HCl 10 mg PO Q6H PRN 07/18/18 RX: Polyethylene Glycol 3350 [Miralax 255 gm Btl -] 17 gm PO TID 07/18/18 RX: Vitamin B Complex 1 tab PO DAILY 07/18/18 RX: Warfarin Na [Coumadin -] 10 mg PO HS 07/18/18 RX: Diltiazem Cd [Cardizem Cd -] 120 mg PO DAILY cap.cd.24h 07/23/18 RX: Docusate Sodium [Colace -] 100 mg PO TID capsule 07/23/18 RX: Levothyroxine [Synthroid -] 25 mcg PO DAILY@0700 tablet 07/23/18 RX: Sennosides [Senna -] 1 tab PO BID tablet 07/23/18 RX: Acetaminophen [Pain Relief] 650 mg PO Q6H PRN 07/29/18 RX: Bisacodyl Suppository [Dulcolax Suppository -] 10 mg RC DAILY PRN 07/29/18 RX: Insulin Lispro [Humalog Kwikpen U-100] 0 unit SQ ASDIR 07/29/18 RX: Mag Hydrox/Al Hydrox/Simeth [Mylanta Oral Suspension -] 30 ml PO Q6H PRN RX: Pantoprazole Sodium 40 mg PO DAILY 07/29/18 RX: Vitamin B Complex 1 each PO DAILY 07/29/18 RX: Insulin Sliding Scale [Novolog Vial Sliding Scale -] 1 vial SQ ACHS units 08/03/18 RX: Nystatin Cream [Mycostatin Cream -] 1 applic TP Q6HPO applic 08/03/18 RX: Torsemide [Demadex -] 20 mg PO DAILY tablet 08/03/18 Anemia: Yes Asthma: No Cancer: Yes (CML) Cardiac Disorders: Yes (A-FIB) CVA: No COPD: Yes CHF: No DVT: Yes Dementia: No Diabetes: Yes GI Disorders: No Disorders: Yes (uti) HTN: Yes Hypercholesterolemia: Yes Liver Disease: Yes (fatty liver) Psychiatric Problems: Yes (depression) Seizures: No Thyroid Disease: Yes - Surgical History Abdominal Surgery: Yes (hernia) Appendectomy: No Cardiac Surgery: No Cholecystectomy: Yes Lung Surgery: No Neurologic Surgery: No Orthopedic Surgery: No - Immunization History Immunization Up to Date: Yes - Suicide/Smoking/Psychosocial Hx Smoking Status: Yes Smoking History: Former smoker Have you smoked in the past 12 months: No Number of Cigarettes Smoked Daily: 0 If you are a former smoker, when did you quit?: 10/25/2013 Cigars Per Day: 0 Information on smoking cessation initiated: No 'Breaking Loose' booklet given: 02/28/12 Hx Alcohol Use: No Drug/Substance Use Hx: No Substance Use Type: None Hx Substance Use Treatment: No Review of Systems - Review of Systems Constitutional: Yes: Weakness. No: Chills, Fever, Night Sweats HEENTM: No: Blurred Vision, Nose Congestion, Difficulty Swallowing Respiratory: No: Cough, Shortness of Breath, Wheezing Cardiac (ROS): No: Chest Pain, Palpitations ABD/GI: Yes: Abdominal Distended, Constipated. No: Diarrhea, Nausea, Vomiting : No: Burning, Dysuria Neurological: No: Headache, Numbness, Tingling, Weakness *Physical Exam - Vital Signs Last Vital Signs Temp Pulse Resp BP Pulse Ox 97.6 F 55 L 16 113/60 95 07/29/18 15:48 07/29/18 15:25 07/29/18 15:25 07/29/18 15:25 07/29/18 15:25 - Physical Exam General Appearance: Yes: Other (lethargic, arousable to voice/touch, NAD) HEENT: positive: EOMI, NELLY, Normal ENT Inspection Neck: positive: Trachea midline, Supple Respiratory/Chest: positive: Decreased Breath Sounds Cardiovascular: positive: Regular Rate, S1, S2, Bradycardia. negative: Murmur Gastrointestinal/Abdominal: positive: Normal Bowel Sounds, Soft, Other (LLQ tenderness). negative: Distended Extremity: positive: Normal Range of Motion, Pedal Edema. negative: Erythema Neurologic: positive: Other (lethargic, arousable to voice, oriented x2, follows commands, able to move all extremities) ED Treatment Course - LABORATORY CBC & Chemistry Diagram: 08/03/18 05:50 08/03/18 05:50 Medical Decision Making - Medical Decision Making 07/29/18 16:08 Patient is a 67 year old female with past medical history of HTN, HLD, DM, A.fib (on coumadin), prior DVT, CML, COPD, congenital goiter, pulmonary hypertension, hypothyroidism, choledocholithiasis, biliary pancreatitis, was BIBA from [facility] after being noted to be lethargic since yesterday. General: lethargic, arousable to voice/touch, not in acute distress Head:no signs of head trauma HEENT: PERRLA, EOMI, sclerae anicteric, no nasal discharge, no tonsillar exudates, dry mucous membranes Neck: sof,t supple, trachea midline Lung: decreased breath sounds on bilateral bases Heart: bradycardia, normal S1/S2, no m,r,g Abdomen: soft, +tenderness LLQ/suprapubic, mildly distended, NABS RLE: unable to appreciate DP pulses, +3 pitting edema with no erythema, no drainage and chronic dry, flaky skin LLE: unable to appreciate DP pulses, +3 pitting edema, +clean, dry wound on the left lower lateral leg, no erythema, no drainage and chronic dry, flaky skin AMS DDx includes but not limited to UTI, cellulitis, sepsis, CVA/TIA, intracranial bleed, PNA CBC, CMP, Mag EKG, CXR, VBG Head CT without contrast Ammonia, Coags, Lactic acid, BNP TSH UA, Urine cx, blood cx Oxycodone 10mg (home dose) for back pain 07/29/18 17:[address] - no acute intracranial pathology 07/29/18 20:31 Hyperkalemia (6.2) - Insulin, d50, glucagon ASA - BUN/Cr - 62/3.3 IV NS 07/29/18 21:[address] Gunn, who's covering for Dr. Sanchez. No indication for dialysis at this time. ASA likely pre-renal. Will give IV fluids. 07/29/18 22:54 Multiple unsuccessful attempts to insert chambers. Primary team aware. Ordered Renal/pelvic ultrasound. Spoke with Dr. Blackburn for possible urinary tract obstruction. He will see patient in the morning. *DC/Admit/Observation/Transfer Diagnosis at time of Disposition: Hyperkalemia, ASA (acute kidney injury), Supratherapeutic INR, Altered mental status, unspecified UTI (urinary tract infection) Qualifiers: Urinary tract infection type: acute cystitis Hematuria presence: without hematuria Qualified Code(s): N30.00 - Acute cystitis without hematuria - Discharge Dispostion Disposition: [facility] Condition at time of disposition: Stable - Referrals - Patient Instructions - Post Discharge Activity
--- NOTE | 2018-07-29 16:12 | PDOC ---
Attending Attestation - HPI HPI: 07/29/18 16:38 The patient is a 67 year old female with a history of HTN, HLD, DM, Afib, DVT, COPD, UTI, CML, congenital goiter, pulmonary hypertension, hypothyroidism, choledocholithiasis, and biliary pancreatitis, who presents for evaluation of lethargy beginning approx 4 days ago. As per sister at bedside, she states that today the patient was more lethargic but arousable so she decided to take her to the ED for evaluation. As per documentation on file, the patient was admitted for sepsis secondary to LLE wound on 07/17, provided IV antibiotics while in the hospital and discharged on 07/23 with clindamycin antibiotics. The patient denies chest pain, shortness of breath, headache and dizziness. Denies fever, chills, nausea, vomit, diarrhea and constipation. Denies dysuria, frequency, urgency and hematuria. Allergies: metronidazole, metoprolol Documentation prepared by Gary Coy, acting as medical technician for Deysi Lira DO. - Physicial Exam PE: 07/29/18 17:00 GENERAL: (+) Lethargic but arousable, answers simple question. Awake, alert, and fully oriented, in no acute distress HEAD: No signs of trauma EYES: PERRLA, EOMI, sclera anicteric, conjunctiva clear ENT: Auricles normal inspection, hearing grossly normal, nares patent, oropharynx clear without exudates. Moist mucosa NECK: Normal ROM, supple, no lymphadenopathy, JVD, or masses LUNGS: (+) Diminished breath sounds at baseline. (+) Poor inspiratory effort. No wheezes, and no crackles HEART: (+) Bradycardia on exam. Regular rhythm, normal S1 and S2, no murmurs, rubs or gallops ABDOMEN: Soft, nontender, normoactive bowel sounds. No guarding, no rebound. No masses EXTREMITIES: (+) Chronic venous stasis changes with skin flaking. (+) Lower extremity bilateral 3+ pitting edema. Skin is warm. Normal range of motion. No clubbing or cyanosis. No cords, erythema, or tenderness. NEUROLOGICAL: Cranial nerves II through XII grossly intact. Normal speech. SKIN: (+) Wound noted on the left anterior tibia with santyl like medication. No erythema or drainage. Nontender. Skin is warm. (+) Candidal rash noted above diaper line. Warm, Dry, normal turgor, no lesions noted. <Gary Coy - Last Filed: 07/29/18 17:00> - Resident Resident Name: Monica Jacobs - ED Attending Attestation I have performed the following: I have examined & evaluated the patient, The case was reviewed & discussed with the resident, I agree w/resident's findings & plan, Exceptions are as noted - Critical Care Time Total Critical Care Time: 35 Critical Care Statement: The care of this patient involved high complexity decision making to prevent further life threatening deterioration of the patient 's condition and/or to evaluate & treat vital organ system(s) failure or risk of failure. - Medical Decision Making 07/29/18 16:12 I, Dr. Deysi Lira, DO, attest that this document has been prepared under my direction and personally reviewed by me in its entirety. I further attest, that it accurately reflects all work, treatment, procedures and medical decision -making performed by me. 07/29/18 16:45 a/p: 67yo female with multiple medical problems on coumadin with altered MS and lethargy -no focal neuro complaints or findings -no f/c -denies dysuria -has had a cough x 6 weeks that is productive of mucus -denies cp/sob -no n/v/d, pt is constipated from narcotic use -c/o her chronic back pain -recently hospitalized for sepsis from her L leg wound and cellulitis -will send labs, head ct, ua, cultures, cxr -will monitor and reassess 07/29/18 21:11 pt with ASA and hyperkalemia on labs will place chambers pending ua will start treatment for hyperkalemia will admit for ivf hydration and nephrology eval consult placed to Dr. Sanchez resident discussed the case with SYMPHONY call placed to dr. sanchez call placed to the patients sister to update her on the plan <Deysi Lira - Last Filed: 07/29/18 21:20> Heart Score/ECG Review - ECG Intrepretation Comment:: 07/29/18 18:38 sinus nery at 50, low voltage, q waves anteriorly that are age indeterminate, no acute st/t wave findings <Deysi Lira - Last Filed: 07/29/18 21:20>
[2018-07-29] MEDS ORDERED: PATIENT'S OWN MEDICATION (NON-FORMULARY) (Oxycodone Hcl [Oxycodone Hcl] 10 MG) PO PRN (16:26)
[2018-07-29 16:45] LABS: BASO % 0.4 % (0-2.0); EOS % 2.1 % (0-4.5); HEMATOCRIT 22.7 % (32.4-45.2); HEMOGLOBIN 7.9 GM/dL (10.7-15.3); MCH 32.7 pg (25.7-33.7); MCHC 34.6 g/dl (32.0-36.0); MEAN CELL VOLUME 94.5 fl (80-96); MEAN PLT VOLUME 8.7 fl (7.5-11.1); MONO % 5.5 % (3.8-10.2); PLATELET COUNT 179 K/MM3 (134-434); RBC 2.41 M/mm3 (3.60-5.2); RDW 18.7 % (11.6-15.6)
[2018-07-29 16:47] LABS: VENOUS PC02 40.8 mmHg (38-52); VENOUS PH 7.31 (7.32-7.42); VENOUS PO2 44.1 mmHg (28-48)
[2018-07-29 17:07] LABS: PROTHROMBIN TIME (PATIENT) 83.5 SEC (9.7-13.0)
[2018-07-29 17:11] LABS: INR 6.94 (0.83-1.09)
[2018-07-29] MEDS ORDERED: oxyCODONE HCL 5 MG TABLET ONE (18:32)
[2018-07-29 20:11] LABS: ALBUMIN 2.1 g/dl (3.4-5.0); ALK PHOS 244 U/L (45-117); ANION GAP 10 MMOL/L (8-16); BILIRUBIN,TOTAL 0.4 mg/dL (0.2-1); BLOOD UREA NITROGEN 62 mg/dL (7-18); CALCIUM 7.8 mg/dL (8.5-10.1); CHLORIDE 104 mmol/L (98-107); CO2 19 mmol/L (21-32); CREATININE 3.3 mg/dL (0.55-1.3); GLUCOSE,RANDOM 140 mg/dL (74-106); SGOT/AST 23 U/L (15-37); SGPT/ALT 24 U/L (13-61); SODIUM 133 mmol/L (136-145)
[2018-07-29 20:13] LABS: POTASSIUM 6.2 mmol/L (3.5-5.1)
[2018-07-29] MEDS ORDERED: CALCIUM GLUCONATE 10% - 1,000 MG/10 ML VIAL IVPB ONE (20:18)
[2018-07-29] MEDS ORDERED: INSULIN REGULAR HUMAN 100 UNITS/ML *VIAL IVPUSH ONE (20:20)
[2018-07-29] MEDS ORDERED: DEXTROSE 50%-WATER - 25 GM/50 ML VIAL IVPUSH ONE (20:20)
[2018-07-29] MEDS ORDERED: SODIUM CHLORIDE 1,000 ML IV STA (20:21)
[2018-07-29] MEDS ORDERED: CALCIUM CHLORIDE 1 GM/10 ML *DISP.SYRIN ONE (20:30)
[2018-07-29] MEDS ORDERED: DEXTROSE 50%-WATER 25 GM/50 ML DISP.SYRIN ONE (20:31)
[2018-07-29] MEDS ORDERED: INSULIN REGULAR HUMAN 100 UNITS/ML *VIAL ONE (20:31)
[2018-07-29] MEDS ORDERED: CALCIUM GLUCONATE 10% - 1,000 MG/10 ML VIAL IVPUSH ONE (20:34)
--- NOTE | 2018-07-29 20:49 | PN ---
Teaching Attending Note Name of Resident: Herminio Sin ATTENDING PHYSICIAN STATEMENT I saw and evaluated the patient. I reviewed the resident's note and discussed the case with the resident. I agree with the resident's findings and plan as documented. SUBJECTIVE: Patient is a 67 year old woman with past medical history of HTN, HLD, DM, A.fib( on coumadin), prior DVT, CML, COPD, congenital goiter, pulmonary hypertension, hypothyroidism, choledocholithiasis, biliary pancreatitis, was BIBA from [facility] after being noted to be lethargic since yesterday. Patient was recently admitted (07/17) due to sepsis 2/2 MRSA+ LLE cellulitis. She was treated with IV vancomycin and was sent home with Clindamycin for 7 days. During the admission, patient also became positive for yeast-like UTI and possible proctitis with rectal swab positive for vanc-resistant enterococcus. As per her sister who visits patient at the [place] everyday, patient started becoming weaker 2 days ago, and today was more sleepy and has not gone out of bed all morning. Patient was then subsequently brought to the ED. Patient reports tiredness and back pain, but denies trauma, headache, changes in vision, chest pain, SOB, palpitations, abdominal pain, diarrhea, dysuria, hematuria. OBJECTIVE: Alert and Obese Vital Signs Period Temp Pulse Resp BP Sys/[place] Pulse Ox Last 24 Hr 97.6 F 55 16 113/60 95 HEENT: No Jaundice, eye redness or discharge, PERRLA, EOMI. Normocephalic, atraumatic. External ears are normal and hearing is grossly intact. No nasal discharge. Neck: Supple, nontender. No palpable adenopathy or thyromegaly. No JVD Chest: Good effort. Clear to auscultation and percussion. Heart: Bradycardia. No S3, rub or murmur Abdomen: Not distended, soft, nontender and no HSM. No rebound or guarding. Normoactive bowel sounds. Ext: Peripheral pulses intact. Chronic leg edema with stasis dermatitis changes. Ulcers on left lower leg. Uses diapers. Skin: Warm, Very dry and scaly skin in both lower legs. Vulval edema and erythema as well as groin and perineal erythema. Neuro: Alert. Oriented x3. CN 2-12 grossly intact. Sensation grossly intact in all four extremities and DTR are symmetric. Current Medications Generic Name Dose Route Start Last Admin Trade Name Freq PRN Reason Stop Dose Admin Sodium Chloride 1,000 mls @ 1,000 mls/hr 07/29/18 20:21 Normal Saline - IV 07/29/18 21:20 ASDIR STA Non-Formulary Medication 10 mg 07/29/18 16:26 07/29/18 18:38 Oxycodone Hcl [Oxycodone Hcl] PO 10 mg Q6H PRN Administration BACK PAIN Home Medications Medication Instructions Recorded Albuterol Sulfate 2.5 mg IH Q8H PRN 07/18/18 Ammonium Lactate Lotion 1 applic TP ASDIR 07/18/18 [Lac-Hydrin 12] Ascorbic Acid [Vitamin C -] 500 mg PO DAILY 07/18/18 Gabapentin [Neurontin -] 100 mg PO Q8H 07/18/18 Ipratropium [place] 0.2 mg IH Q8H PRN 07/18/18 L. Acidophilus/Bifid. Animalis 1 each PO TID 07/18/18 [Probiotic 5 Billion Cell Cap] Oxycodone HCl 10 mg PO Q6H PRN 07/18/18 Polyethylene Glycol 3350 [Miralax 17 gm PO TID 07/18/18 255 gm Btl -] Vitamin B Complex 1 tab PO DAILY 07/18/18 Warfarin Na [Coumadin -] 10 mg PO HS 07/18/18 metFORMIN HCL [Metformin HCl] 500 mg PO BID 07/18/18 Diltiazem Cd [Cardizem Cd -] 120 mg PO DAILY cap.cd.24h 07/23/18 Docusate Sodium [Colace -] 100 mg PO TID capsule 07/23/18 Levothyroxine [Synthroid -] 25 mcg PO DAILY@0700 tablet 07/23/18 Sennosides [Senna -] 1 tab PO BID tablet 07/23/18 Acetaminophen [Pain Relief] 650 mg PO Q6H PRN 07/29/18 Bisacodyl Suppository [Dulcolax 10 mg RC DAILY PRN 07/29/18 Suppository -] Clindamycin [Cleocin -] 300 mg PO Q6HPO 07/29/18 Insulin Lispro [Humalog] 0 unit SQ ASDIR 07/29/18 Mag Hydrox/Al Hydrox/Simeth 30 ml PO Q6H PRN 07/29/18 [Mylanta *Suspension*] Pantoprazole Sodium 40 mg PO DAILY 07/29/18 Torsemide 20 mg PO BID 07/29/18 Vitamin B Complex 1 each PO DAILY 07/29/18 Abnormal Lab Results 07/29/18 07/29/18 07/29/18 16:34 16:34 16:48 RBC 2.41 L Hgb 7.9 L Hct 22.7 L RDW 18.7 H PT with INR 83.50 H INR 6.94 H* PTT (Actin FS) 56.0 H VBG pH 7.31 L Sodium Potassium Carbon Dioxide BUN Creatinine Random Glucose Calcium Alkaline Phosphatase Total Protein Albumin 07/29/18 18:51 RBC Hgb Hct RDW PT with INR INR PTT (Actin FS) VBG pH Sodium 133 L Potassium 6.2 H* Carbon Dioxide 19 L BUN 62 H Creatinine 3.3 H Random Glucose 140 H Calcium 7.8 L Alkaline Phosphatase 244 H Total Protein 9.0 H Albumin 2.1 L ASSESSMENT AND PLAN: 1. Altered Mental Status - When i saw her, she was alert and lucid. Hyperkalemia , dehydration and/or ARF may explain AMS on presentation. Says she has not been ingesting fluids because of concern about leg edema. No urinalysis yet because of difficulty inserting chambers. EKG shows bradycadia. Got Ca. gluconate and D5W with insulin for hyperkalemia. Will treat with kayexalate and IV NS at 40 ml/ hour. Recent ECHO showed normal LVEF. Hold coumadin for very high INR and monitor INR. No evidence of active bleeding. Provide daily wound care for left leg ulcers. and place on isolation for MRSA. Apply moisturizing cream bid to extremities. Consult PT to facilitate increased out of bed activity. Apply antifungal cream to perineal area and strive to change diapers immediately when wet. Admit to telemetry. 2. Hypoalbuminemia - Possibly due to combined effects of malnutrition and inflammation associated with comorbid chronic conditions. Will ensure adequate dietary protein intake and also consult weekend receptionist. 3. DM - For now, we will hold the home diabetes drugs and implement sliding scale insulin regimen. Provide comprehensive diabetes care with patient teaching and counseling about the importance of euglycemia, eye care and foot care. 4. ASA - Has risk factors for CKD, but Cr was 1.1 mg/dl on 07/23/18. Recent treatment with IV Vancomycin for MRSA infection of left leg ulcer and dehydration may explain ASA. Get stat kidney sonogram, CPK and UA. Hydrate gently IV and liberal oral fluids. Consult nephrology and avoid nephrotoxic agents such as NSAIDS, aminoglycosides, contrast dyes and certain Alternative medicine products. 5. Anemia - It is chronic likely multifactorial including renal failure. HCT was 24.6% on 07/23/18. Do basic anemia work up including serial stool guaiacs, reticulocyte count and iron studies. May need IV iron and Procrit to preemept blood transfusion. 6. Obesity - Will provide patient all the necessary assistance , counseling and positive reinforcement to facilitate weight loss. Consult weekend receptionist. 7. DVT prophylaxis - On coumadin 8. Advance directives - Full code
[2018-07-29] MEDS ORDERED: NYSTATIN POWDER 100,000 UNITS/GM - 15 GM TOPICAL POWDER TP ONE (22:22)
[2018-07-29] MEDS ORDERED: SODIUM CHLORIDE 1,000 ML IV SCH (22:30)
--- NOTE | 2018-07-29 22:34 | HP ---
CHIEF COMPLAINT: Lethargy PCP: [facility] HISTORY OF PRESENT ILLNESS: The patient is a 67 yo f w/ PMH HTN, HLD, DM, afib (on coumadin) DVT in the past , CML, COPD who was BIBA from [facility] for lethargy for the past 1 day. The patient had a recent admission on 07/17 for sepsis 2/2 LE cellulitis. She was treated with Vancomycin for 1 week and d/c on 7 days of Clindamycin. Today, patient endorses increased sleepiness and weakness. The patient also endorses approx. a 1 month history of b/l LE edema causeing approx. 10lbs weight gain. She has been limiting her PO fluid intake to attempt to make the swelling go down. Patient also endorses decreased PO intake over the past few weeks. Patient denies fever, chills chest pain, abdominal pain, SOB or sick contacts. ER course was notable for: (1) Calcium gluconate, insulin IV, D50 IV (2) Renal consult (3) urology consult Recent Travel: none PAST MEDICAL HISTORY: Congenital goiter pulmonary HTN Hypothyroidism Choledocolithiasis PAST SURGICAL HISTORY: Social History: Smoking: Alcohol: Drugs: Family History: Allergies metronidazole [From Flagyl] Allergy (Severe, Verified 07/16/18 17:55) Rash metoprolol Allergy (Intermediate, Verified 07/16/18 17:55) Rash HOME MEDICATIONS: Home Medications Medication Instructions Recorded Albuterol Sulfate 2.5 mg IH Q8H PRN 07/18/18 Ammonium Lactate Lotion 1 applic TP ASDIR 07/18/18 [Lac-Hydrin 12] Ascorbic Acid [Vitamin C -] 500 mg PO DAILY 07/18/18 Gabapentin [Neurontin -] 100 mg PO Q8H 07/18/18 Ipratropium [place] 0.2 mg IH Q8H PRN 07/18/18 L. Acidophilus/Bifid. Animalis 1 each PO TID 07/18/18 [Probiotic 5 Billion Cell Cap] Oxycodone HCl 10 mg PO Q6H PRN 07/18/18 Polyethylene Glycol 3350 [Miralax 17 gm PO TID 07/18/18 255 gm Btl -] Vitamin B Complex 1 tab PO DAILY 07/18/18 Warfarin Na [Coumadin -] 10 mg PO HS 07/18/18 metFORMIN HCL [Metformin HCl] 500 mg PO BID 07/18/18 Diltiazem Cd [Cardizem Cd -] 120 mg PO DAILY cap.cd.24h 07/23/18 Docusate Sodium [Colace -] 100 mg PO TID capsule 07/23/18 Levothyroxine [Synthroid -] 25 mcg PO DAILY@0700 tablet 07/23/18 Sennosides [Senna -] 1 tab PO BID tablet 07/23/18 Acetaminophen [Pain Relief] 650 mg PO Q6H PRN 07/29/18 Bisacodyl Suppository [Dulcolax 10 mg RC DAILY PRN 07/29/18 Suppository -] Clindamycin [Cleocin -] 300 mg PO Q6HPO 07/29/18 Insulin Lispro [Humalog] 0 unit SQ ASDIR 07/29/18 Mag Hydrox/Al Hydrox/Simeth 30 ml PO Q6H PRN 07/29/18 [Mylanta *Suspension*] Pantoprazole Sodium 40 mg PO DAILY 07/29/18 Torsemide 20 mg PO BID 07/29/18 Vitamin B Complex 1 each PO DAILY 07/29/18 REVIEW OF SYSTEMS CONSTITUTIONAL: Absent: fever, chills, diaphoresis, generalized weakness, malaise, loss of appetite, weight change HEENT: Absent: rhinorrhea, nasal congestion, throat pain, throat swelling, difficulty swallowing, mouth swelling, ear pain, eye pain, visual changes CARDIOVASCULAR: Absent: chest pain, syncope, palpitations, irregular heart rate, lightheadedness , peripheral edema RESPIRATORY: Absent: cough, shortness of breath, dyspnea with exertion, orthopnea, wheezing, stridor, hemoptysis GASTROINTESTINAL: Absent: abdominal pain, abdominal distension, nausea, vomiting, diarrhea, constipation, melena, hematochezia GENITOURINARY: Absent: dysuria, frequency, urgency, hesitancy, hematuria, flank pain MUSCULOSKELETAL: Absent: myalgia, arthralgia, joint swelling, back pain, neck pain SKIN: Absent: itching, pallor HEMATOLOGIC/IMMUNOLOGIC: Absent: easy bleeding, easy bruising, lymphadenopathy, frequent infections ENDOCRINE: Absent: unexplained weight gain, unexplained weight loss, heat intolerance, cold intolerance NEUROLOGIC: Absent: headache, focal weakness or paresthesias, dizziness, seizure, bladder or bowel incontinence PSYCHIATRIC: Absent: anxiety, depression, suicidal or homicidal ideation, hallucinations. PHYSICAL EXAMINATION Vital Signs - 24 hr 07/29/18 07/29/18 15:25 15:48 Temperature 97.6 F Pulse Rate 55 L Respiratory 16 Rate Blood Pressure 113/60 O2 Sat by Pulse 95 Oximetry (%) GENERAL: Awake, alert, and fully oriented, in no acute distress. HEAD: Normal with no signs of trauma. EYES: Pupils equal, round and reactive to light, extraocular movements intact, sclera anicteric, conjunctiva clear. No lid lag. NECK: Normal range of motion, supple without lymphadenopathy, JVD, or masses. LUNGS: Breath sounds equal, clear to auscultation bilaterally. No wheezes, and no crackles. No accessory muscle use. HEART: Regular rate and rhythm, normal S1 and S2 without murmur, rub or gallop. ABDOMEN: Soft, nontender, not distended, normoactive bowel sounds, no guarding, no rebound, no masses. No hepatomegaly or splenomegaly. LOWER EXTREMITIES: 2+ pulses, warm, well-perfused. No calf tenderness. 3+ peripheral edema. There are two wounds on the patient's left lower extremity 2/ 2 venous stasis. no stigmata of infection. NEUROLOGICAL: Cranial nerves II-X intact. Normal speech. Strength 5/5 b/l PSYCHIATRIC: Cooperative. Good eye contact. Appropriate mood and affect. SKIN: Warm, dry, normal turgor. There is a warm, erythematous rash on the patient's genitals and perineum. It is tender to palapation and yoel candidiasis can be seen. The rash extends into the perineum. Laboratory Results - last 24 hr 07/29/18 07/29/18 07/29/18 16:24 16:26 16:34 WBC RBC Hgb Hct MCV MCH MCHC RDW Plt Count MPV Absolute Neuts (auto) Neutrophils % Lymphocytes % Monocytes % Eosinophils % Basophils % Nucleated RBC % PT with INR INR PTT (Actin FS) VBG pH POC VBG pCO2 POC VBG pO2 Mixed VBG HCO3 Sodium Cancelled Potassium Cancelled Chloride Cancelled Carbon Dioxide Cancelled Anion Gap Cancelled BUN Cancelled Creatinine Cancelled Creat Clearance w eGFR Cancelled Random Glucose Cancelled Lactic Acid 0.8 Calcium Cancelled Magnesium Cancelled Total Bilirubin Cancelled AST Cancelled ALT Cancelled Alkaline Phosphatase Cancelled Ammonia 16.90 Creatine Kinase Cancelled Troponin I Cancelled B-Natriuretic Peptide Total Protein Cancelled Albumin Cancelled TSH Cancelled 07/29/18 07/29/18 07/29/18 16:34 16:34 16:34 WBC 5.0 RBC 2.41 L Hgb 7.9 L Hct 22.7 L MCV 94.5 MCH 32.7 MCHC 34.6 RDW 18.7 H Plt Count 179 D MPV 8.7 Absolute Neuts (auto) 4.0 Neutrophils % 79.0 Lymphocytes % 13.0 D Monocytes % 5.5 Eosinophils % 2.1 Basophils % 0.4 Nucleated RBC % 0 PT with INR INR PTT (Actin FS) VBG pH 7.31 L POC VBG pCO2 40.8 POC VBG pO2 44.1 Mixed VBG HCO3 19.9 Sodium Potassium Chloride Carbon Dioxide Anion Gap BUN Creatinine Creat Clearance w eGFR Random Glucose Lactic Acid Calcium Magnesium Total Bilirubin AST ALT Alkaline Phosphatase Ammonia Creatine Kinase Troponin I B-Natriuretic Peptide Cancelled Total Protein Albumin TSH 07/29/18 07/29/18 07/29/18 16:48 18:15 18:51 WBC RBC Hgb Hct MCV MCH MCHC RDW Plt Count MPV Absolute Neuts (auto) Neutrophils % Lymphocytes % Monocytes % Eosinophils % Basophils % Nucleated RBC % PT with INR 83.50 H INR 6.94 H* PTT (Actin FS) 56.0 H VBG pH POC VBG pCO2 POC VBG pO2 Mixed VBG HCO3 Sodium Cancelled 133 L Potassium Cancelled 6.2 H* Chloride Cancelled 104 Carbon Dioxide Cancelled 19 L Anion Gap Cancelled 10 BUN Cancelled 62 H Creatinine Cancelled 3.3 H Creat Clearance w eGFR Cancelled 13.86 Random Glucose Cancelled 140 H Lactic Acid Calcium Cancelled 7.8 L Magnesium Cancelled Total Bilirubin Cancelled 0.4 AST Cancelled 23 ALT Cancelled 24 Alkaline Phosphatase Cancelled 244 H Ammonia Creatine Kinase Cancelled 68 Troponin I Cancelled < 0.02 B-Natriuretic Peptide Cancelled Total Protein Cancelled 9.0 H Albumin Cancelled 2.1 L TSH Cancelled ASSESSMENT/PLAN: 67 yo f w/ PMH HTN, Afib on AC with DVT, COPD who comes into the ED from [facility] c/o lethargy and generalized weakness. Found to have ASA, hyperkalemia and elevated INR #AMS possibly 2/2 ASA on CKD vs Hyperkalemia vs possibly occult infection -s/p calcium gluconate, insulin, d50 in ED -will give kayexalate 30mg q4h po x 3 doses -STAT renal/bladder sono -nephrology contacted from ED: no indication for emergent HD -f/u Ucx/UA; patient difficult to pass chambers -Urology consulted for chambers placement/r/o obstruction. -NS @ 40 #supratheraputic INR possibly 2/2 ASA -holding coumadin -holding DVT prophy to avoid bleeding -monitor INR -will reverse patient is bleeding stigmata detected #genital candidiasis -erythematous, painful genital area -will give topical nystatin cream q6h #difficulty with chambers placement, possible obstruction -urology consulted from the ED; will see the patient in AM -monitor urine output closely. -f/u renal/bladder US #FEN -NS@ 40 -manage lytes as above -renal diet #prophy -holding heparin SQ as patient w/ supratheraputic INR #Dispo -admit tele Visit type - Emergency Visit Emergency Visit: Yes ED Registration Date: 07/29/18 Care time: The patient presented to the Emergency Department on the above date and was hospitalized for further evaluation of their emergent condition. - New Patient This patient is new to me today: Yes Date on this admission: 07/30/18 - Critical Care Critical Care patient: No
[2018-07-29] MEDS ORDERED: LIDOCAINE HCL 2% JELLY 10 ML CARTRIDGE ONE ×2 (23:06→23:19)
[2018-07-29] MEDS ORDERED: LIDOCAINE HCL 2% JELLY 10 ML CARTRIDGE TP ONE (23:15)
[2018-07-29] MEDS ORDERED: SODIUM POLYSTYRENE SULFONATE 15 GM/60 ML BOTTLE ONE (23:19)
[2018-07-29] MEDS: SODIUM POLYSTYRENE SULFONATE 15 GM/60 ML BOTTLE PO SCH (23:30)
[2018-07-29] MEDS: NYSTATIN 100,000 UNIT/GM TOPICAL CREAM 15 GM TUBE TP SCH (23:32)
[2018-07-29 23:44] LABS: URINE APPEARANCE CLOUDY; URINE BILIRUBIN NEGATIVE (<2.0 mg/dL); URINE COLOR AMBER; URINE GLUCOSE (UA) NEGATIVE (NEGATIVE); URINE KETONE NEGATIVE (NEGATIVE); URINE LEUK ESTERASE 3+ (NEGATIVE); URINE NITRITE NEGATIVE (NEGATIVE); URINE PROTEIN 1+ (NEGATIVE); URINE UROBILINOGEN NEGATIVE mg/dL (0.2-1.0)
[2018-07-29 23:54] LABS: EPI CELLS RARE /HPF (FEW); URINE HYALINE CAST 31 /lpf
[2018-07-30] MEDS ORDERED: oxyCODONE HCL 5 MG TABLET ONE ×2 (01:07→14:27)
[2018-07-30] MEDS: oxyCODONE HCL 5 MG TABLET PO PRN ×2 (01:25→22:03)
[2018-07-30] MEDS ORDERED: MEROPENEM 1 GM in DEXTROSE 5%-WATER 100 ML IVPB ONE (02:01)
[2018-07-30] MEDS ORDERED: NITROFURANTOIN MACROCRYSTAL 50 MG CAPSULE (FP) PO SCH (02:18)
[2018-07-30] MEDS ORDERED: SODIUM POLYSTYRENE SULFONATE 15 GM/60 ML BOTTLE ONE ×2 (02:36→06:58)
[2018-07-30] MEDS ORDERED: NITROFURANTOIN MACROCRYSTAL 50 MG CAPSULE (FP) ONE (02:36)
[2018-07-30] MEDS: SODIUM POLYSTYRENE SULFONATE 15 GM/60 ML BOTTLE PO SCH ×2 (02:46→07:12)
[2018-07-30] MEDS ORDERED: SULFAMETHOXAZOLE/TRIMETHOPRIM 800MG/160MG D.S. TABLET ONE (03:50)
[2018-07-30] MEDS: SULFAMETHOXAZOLE/TRIMETHOPRIM 800MG/160MG D.S. TABLET PO SCH ×2 (03:52→10:31)
[2018-07-30 05:56] LABS: HEMATOCRIT 24.4 % (32.4-45.2); MCH 31.5 pg (25.7-33.7); MCHC 32.7 g/dl (32.0-36.0); MEAN CELL VOLUME 96.2 fl (80-96); PLATELET COUNT 133 K/MM3 (134-434); RBC 2.54 M/mm3 (3.60-5.2); RDW 18.6 % (11.6-15.6); WHITE BLOOD COUNT 4.9 K/mm3 (4.0-10.0)
[2018-07-30 06:02] LABS: PROTHROMBIN TIME (PATIENT) 97.4 SEC (9.7-13.0)
[2018-07-30 06:04] LABS: ACTIVATED PTT 58.1 SECONDS (25.2-36.5)
[2018-07-30 06:27] LABS: INR 8.08 (0.83-1.09)
[2018-07-30 06:40] LABS: ALBUMIN 2.1 g/dl (3.4-5.0); ALK PHOS 217 U/L (45-117); ANION GAP 9 MMOL/L (8-16); BILIRUBIN,TOTAL 0.3 mg/dL (0.2-1); BLOOD UREA NITROGEN 65 mg/dL (7-18); CALCIUM 8.3 mg/dL (8.5-10.1); CHLORIDE 106 mmol/L (98-107); CO2 20 mmol/L (21-32); CREATININE 3.3 mg/dL (0.55-1.3); GLUCOSE,RANDOM 161 mg/dL (74-106); MAGNESIUM 3.2 mg/dL (1.8-2.4); PHOSPHOROUS 6.4 mg/dL (2.5-4.9); POTASSIUM 5.4 mmol/L (3.5-5.1); SGOT/AST 19 U/L (15-37); SGPT/ALT 20 U/L (13-61); SODIUM 135 mmol/L (136-145); TOT PROT 8.6 g/dl (6.4-8.2)
[2018-07-30] MEDS: NYSTATIN 100,000 UNIT/GM TOPICAL CREAM 15 GM TUBE TP SCH ×4 (06:57→23:18)
[2018-07-30] MEDS ORDERED: INSULIN (NOVOLOG) ASPART 100 UNITS/ML 10ML VIAL ONE (07:22)
[2018-07-30] MEDS: INSULIN SLIDING SCALE (NOVOLOG) 1 VIAL SQ SCH ×4 (07:31→21:30)
--- NOTE | 2018-07-30 10:57 | EKG ---
Test Reason : Blood Pressure : / mmHG Vent. Rate : 050 BPM Atrial Rate : 050 BPM P-R Int : 136 ms QRS Dur : 096 ms QT Int : 472 ms P-R-T Axes : 090 010 020 degrees QTc Int : 430 ms SINUS BRADYCARDIA WITH SINUS ARRHYTHMIA LOW VOLTAGE QRS CANNOT RULE OUT ANTERIOR INFARCT , AGE UNDETERMINED ABNORMAL ECG WHEN COMPARED WITH ECG OF 17-JUL-2018 11:17, PREMATURE ATRIAL COMPLEXES ARE NO LONGER PRESENT VENT. RATE HAS DECREASED BY 40 BPM T WAVE VARIATION Confirmed by NUZHAT COSTA MD ([id number]) on 07/30/2018 10:57:00 AM Referred By: Confirmed By:NUZHAT COSTA MD
--- NOTE | 2018-07-30 12:19 | PN ---
Progress Note, Physician Chief Complaint: C/O Diarrhea and body pain History of Present Illness: 67 year old woman with past medical history of HTN, HLD, DM, A.fib(on coumadin) , prior DVT, CML, COPD, congenital goiter, pulmonary hypertension, hypothyroidism, choledocholithiasis, biliary pancreatitis, was BIBA from [facility] after being noted to be lethargic since yesterday. Patient was recently admitted (07/17) due to sepsis 2/2 Staph and VRE + LLE cellulitis. She was treated with IV vancomycin and was sent home with Clindamycin for 7 days, in the ED lab shows worsening renal function, elevated INR, Hyperklaemia - Current Medication List Current Medications: Active Medications Active Medications Sodium Chloride (Normal Saline -) 1,000 mls @ 40 mls/hr IV ASDIR [facility] Stop: 07/30/18 22:29 Last Admin: 07/29/18 23:33 Dose: 40 mls/hr Insulin Aspart (Novolog Vial Sliding Scale -) 1 vial SQ ACHS [facility]; Protocol Last Admin: 07/30/18 07:31 Dose: 2 units Nystatin (Mycostatin Cream -) 1 applic TP Q6HPO [facility] Last Admin: 07/30/18 06:57 Dose: 1 applic Oxycodone HCl (Roxicodone -) 10 mg PO Q6H PRN PRN Reason: PAIN LEVEL 6-10 Last Admin: 07/30/18 01:25 Dose: 10 mg - Objective Vital Signs: Vital Signs Temperature 98.4 F 07/30/18 10:30 Pulse Rate 74 07/30/18 10:30 Respiratory Rate 18 07/30/18 10:30 Blood Pressure 138/74 07/30/18 10:30 O2 Sat by Pulse Oximetry (%) 99 07/30/18 10:30 Elderly F sick looking not in distress HEENT: Mm moist, anemia, PERRLA, EOMI NECK: No JVd No Bruit, CHEST: Minimal basal Crepts CVS: S1S2 R no m/g/r ABD: Obese, non tender Soft EXT: B/L Chronic Venous stasis changes Left sided wound in dressing with exudative discharge MARSHMALLOW MAKER: AOX3 non focal Labs: CBC, BMP 07/30/18 05:22 07/30/18 05:22 INR, PTT INR 8.08 (0.83-1.09) H* 07/30/18 05:22 - ....Imaging Chest X-ray: Report Reviewed (No acute chnages) Problem List - Problems (1) Acute kidney injury superimposed on CKD Assessment/Plan: Present with elevated BUN/Creat top on base line cKD , Nephrology consult recived Calcium Gluconte, Kaxelated K is trending normal s/p Foleys cathter, F/ U serial BMP Code(s): N17.9 - ACUTE KIDNEY FAILURE, UNSPECIFIED; N18.9 - CHRONIC KIDNEY DISEASE, UNSPECIFIED (2) A-fib Assessment/Plan: Rate controlled on AC supratherapeutic INR willl F/U INr after PO Vit K 2.5 mg Code(s): I48.91 - UNSPECIFIED ATRIAL FIBRILLATION Qualifiers: Atrial fibrillation type: chronic Qualified Code(s): I48.2 - Chronic atrial fibrillation (3) Toxic metabolic encephalopathy Assessment/Plan: admitted with altered mental status with elevated BUN and electrolyte imbalance Ct head no acute changes, hemodynamically stable. Code(s): G92 - TOXIC ENCEPHALOPATHY (4) Diarrhea Assessment/Plan: NO elevated WBC count no fever or aanabd pain can be diue to Kayxelate will f/u C diff as recently completed Po Clindamycine. Code(s): R19.7 - DIARRHEA, UNSPECIFIED (5) Cellulitis Assessment/Plan: completed abx will observe Code(s): L03.90 - CELLULITIS, UNSPECIFIED Qualifiers: Site of cellulitis: extremity Site of cellulitis of extremity: lower extremity Laterality: unspecified laterality Qualified Code(s): L03.119 - Cellulitis of unspecified part of limb (6) HTN (hypertension) Assessment/Plan: Well controlled cont home meds Code(s): I10 - ESSENTIAL (PRIMARY) HYPERTENSION (7) Hyperkalemia Assessment/Plan: Due to ASA improving Code(s): E87.5 - HYPERKALEMIA (8) Lymphedema Assessment/Plan: Chronic Code(s): I89.0 - LYMPHEDEMA, NOT ELSEWHERE CLASSIFIED (9) T2DM (type 2 diabetes mellitus) Assessment/Plan: Cont correction dose insulin Code(s): E11.9 - TYPE 2 DIABETES MELLITUS WITHOUT COMPLICATIONS Qualifiers: Diabetes mellitus complication status: with neurologic complications (10) UTI (urinary tract infection) Assessment/Plan: WBC in Urine but no fever recieved Meropenem will hold till we get culture f/u ID input. Code(s): N39.0 - URINARY TRACT INFECTION, SITE NOT SPECIFIED Qualifiers: Urinary tract infection type: acute cystitis Hematuria presence: without hematuria Qualified Code(s): N30.00 - Acute cystitis without hematuria (11) CML (chronic myelocytic leukemia) Assessment/Plan: Chronic Code(s): C92.10 - CHRONIC MYELOID LEUK, BCR/ABL-POSITIVE, NOT ACHIEVE REMIS (12) Hypothyroid Assessment/Plan: on Levothyroxine Code(s): E03.9 - HYPOTHYROIDISM, UNSPECIFIED (13) COPD (chronic obstructive pulmonary disease) Assessment/Plan: Cont PRN Duoneb Code(s): J44.9 - CHRONIC OBSTRUCTIVE PULMONARY DISEASE, UNSPECIFIED (14) Supratherapeutic INR Assessment/Plan: Hold Coumadin no active bleeding Vit K 2.5 mg PM F/U INR in am. Code(s): R79.1 - ABNORMAL COAGULATION PROFILE
[2018-07-30] MEDS ORDERED: PHYTONADIONE 5 MG TABLET PO ONE (13:00)
[2018-07-30] MEDS ORDERED: PHYTONADIONE 5 MG TABLET ONE (14:14)
[2018-07-30] MEDS ORDERED: ALBUTEROL SO4 8 GM HFA INHALER IH PRN (14:19)
[2018-07-30] MEDS ORDERED: ALBUTEROL SO4 2.5/IPRATROPIUM 0.5 INH SOL 3 ML VIAL.NEB. NEB PRN (14:25)
--- NOTE | 2018-07-30 15:18 | CONSULT ---
Consult Consult Specialty:: Nephrology Reason for Consultation:: ASA - History of Present Illness Chief Complaint: braught in for lethargy History of Present Illness: Pt is a 67 year old female with pmhx of HTN, HLD, ASA, a-fib, DVT, DMP, COPD, hypothyroid, pulm htn, and pancreatitis who was brought in for lethargy. She was found to be in renal failure and I was called to evaluate her. Pt brought to the ER yesterday. SHe was found to be hypekalemic and I was treated medically. Potassium did improve. Pt is more awake but is unable to give a full history. She was initially started on fluids however she now does not have an IV. She is making urine. 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 History of Recent Travel: No Home Medications - Allergies Allergies/Adverse Reactions: Allergies Allergy/AdvReac Type Severity Reaction Status Date / Time metronidazole [From Flagyl] Allergy Severe Rash Verified 07/16/18 17:55 metoprolol Allergy Intermediate Rash Verified 07/16/18 17:55 - Home Medications Home Medications: Ambulatory Orders Albuterol Sulfate 2.5 mg IH Q8H PRN 07/18/18 Ammonium Lactate Lotion [Lac-Hydrin 12] 1 applic TP ASDIR 07/18/18 Ascorbic Acid [Vitamin C -] 500 mg PO DAILY 07/18/18 Gabapentin [Neurontin -] 100 mg PO Q8H 07/18/18 Ipratropium [place] 0.2 mg IH Q8H PRN 07/18/18 L. Acidophilus/Bifid. Animalis [Probiotic 5 Billion Cell Cap] 1 each PO TID Oxycodone HCl 10 mg PO Q6H PRN 07/18/18 Polyethylene Glycol 3350 [Miralax 255 gm Btl -] 17 gm PO TID 07/18/18 Vitamin B Complex 1 tab PO DAILY 07/18/18 Warfarin Na [Coumadin -] 10 mg PO HS 07/18/18 metFORMIN HCL [Metformin HCl] 500 mg PO BID 07/18/18 Diltiazem Cd [Cardizem Cd -] 120 mg PO DAILY cap.cd.24h 07/23/18 Docusate Sodium [Colace -] 100 mg PO TID capsule 07/23/18 Levothyroxine [Synthroid -] 25 mcg PO DAILY@0700 tablet 07/23/18 Sennosides [Senna -] 1 tab PO BID tablet 07/23/18 Acetaminophen [Pain Relief] 650 mg PO Q6H PRN 07/29/18 Bisacodyl Suppository [Dulcolax Suppository -] 10 mg RC DAILY PRN 07/29/18 Clindamycin [Cleocin -] 300 mg PO Q6HPO 07/29/18 Insulin Lispro [Humalog] 0 unit SQ ASDIR 07/29/18 Mag Hydrox/Al Hydrox/Simeth [Mylanta *Suspension*] 30 ml PO Q6H PRN 07/29/18 Pantoprazole Sodium 40 mg PO DAILY 07/29/18 Torsemide 20 mg PO BID 07/29/18 Vitamin B Complex 1 each PO DAILY 07/29/18 Family Disease History - Family Disease History Family Disease History: CA: Father, Mother Review of Systems - Review of Systems Constitutional: reports: Malaise. denies: Chills, Fever Eyes: reports: No Symptoms HENT: reports: No Symptoms Neck: reports: No Symptoms Cardiovascular: reports: No Symptoms Gastrointestinal: reports: No Symptoms Musculoskeletal: reports: Muscle Weakness Psychiatric: reports: No Symptoms Physical Exam Vital Signs: Vital Signs Temperature 98.4 F 07/30/18 10:30 Pulse Rate 74 07/30/18 10:30 Respiratory Rate 18 07/30/18 10:30 Blood Pressure 138/74 07/30/18 10:30 O2 Sat by Pulse Oximetry (%) 99 07/30/18 10:30 Constitutional: Yes: Calm Eyes: Yes: Conjunctiva Clear HENT: Yes: Atraumatic Cardiovascular: Yes: S2 Respiratory: Yes: CTA Bilaterally Gastrointestinal: Yes: Soft, Abdomen, Obese Renal/: Yes: Hill Present Musculoskeletal: Yes: Muscle Weakness Edema: Yes Neurological: Yes: Other (fatigued) Labs: CBC, BMP 07/30/18 05:22 Laboratory Tests 07/22/18 07/23/18 07/29/18 06:15 06:30 18:51 Sodium 133 L Potassium 6.2 H* Carbon Dioxide 19 L BUN Creatinine 1.1 1.1 3.3 H 07/30/18 05:22 Sodium 135 L Potassium 5.4 H Carbon Dioxide 20 L BUN 65 H Creatinine 3.3 H Imaging - Results Chest X-ray: Report Reviewed Problem List - Problems (1) ASA (acute kidney injury) Code(s): N17.9 - ACUTE KIDNEY FAILURE, UNSPECIFIED (2) Hyperkalemia Code(s): E87.5 - HYPERKALEMIA Assessment/Plan Current Medications Generic Name Dose Route Start Last Admin Trade Name Freq PRN Reason Stop Dose Admin Acetaminophen 650 mg 07/30/18 14:19 Tylenol - PO Q6H PRN PAIN LEVEL 1 - 3 Al Hydroxide/Mg Hydroxide 30 ml 07/30/18 14:19 Mylanta Oral Suspension - PO Q6H PRN heartburn Albuterol Sulfate 2 puff 07/30/18 14:19 Ventolin Hfa Inhaler - IH Q8H PRN SHORTNESS OF BREATH Albuterol/Ipratropium 1 amp 07/30/18 14:25 Duoneb - NEB Q6H PRN SHORTNESS OF BREATH Ascorbic Acid 500 mg 07/31/18 10:00 Vitamin C - PO DAILY JOVITA Diltiazem HCl 120 mg 07/31/18 10:00 Cardizem Cd - PO DAILY JOVITA Gabapentin 100 mg 07/30/18 14:45 Neurontin - PO TID JOVITA Sodium Chloride 1,000 mls @ 40 mls/hr 07/29/18 22:30 07/29/18 23:33 Normal Saline - IV 07/30/18 22:29 40 mls/hr ASDIR JOVITA Administration Insulin Aspart 1 vial 07/30/18 07:00 07/30/18 14:26 Novolog Vial Sliding Scale - SQ Not Given ACHS [facility] Protocol Lactic Acid 1 applic 07/31/18 10:00 Lac-Hydrin 12 TP DAILY [facility] Lactobacillus Acidophilus 1 tab 07/30/18 22:00 Bacid - PO TID [facility] Levothyroxine Sodium 25 mcg 07/31/18 07:00 Synthroid - PO DAILY@0700 [facility] Multivitamins 1 each 07/31/18 10:00 Total B With C - PO DAILY [facility] Nystatin 1 applic 07/29/18 22:45 07/30/18 14:15 Mycostatin Cream - TP 1 applic Q6HPO JOVITA Administration Oxycodone HCl 10 mg 07/29/18 22:39 07/30/18 01:25 Roxicodone - PO 10 mg Q6H PRN Administration PAIN LEVEL 6-10 Pantoprazole Sodium 40 mg 07/31/18 10:00 Protonix - PO DAILY [facility] Warfarin Sodium 10 mg 07/30/18 22:00 Coumadin - PO HS [facility] Impression 1. ASA 2. anemia 3. hyperkalemia 4. CML 5. hypothyroidism 6. HTN 7. chol 8. CHF 9. COPD 10. a-fib Plan - resume IV fluids - follow up repeat bmp - check renal ultrasound - check urine lytes and fitter helper - avoid nephrotoxins - discussed with medical team - pt has had ASA in the past - will send prelim workup and monitor fitter helper Dr Sanchez
[2018-07-30 15:43] LABS: ANION GAP 9 MMOL/L (8-16); BLOOD UREA NITROGEN 63 mg/dL (7-18); CALCIUM 7.9 mg/dL (8.5-10.1); CHLORIDE 109 mmol/L (98-107); CO2 21 mmol/L (21-32); GLUCOSE,RANDOM 100 mg/dL (74-106); POTASSIUM 4.8 mmol/L (3.5-5.1); SODIUM 140 mmol/L (136-145)
[2018-07-30] MEDS ORDERED: SODIUM CHLORIDE 1,000 ML IV SCH (15:45)
[2018-07-30] MEDS: GABAPENTIN 100 MG CAPSULE (FP) PO SCH ×2 (17:59→21:36)
[2018-07-30] MEDS: LACTOBACILLUS ACIDOPHILUS 1 TABLET PO SCH (21:36)
[2018-07-30] MEDS ORDERED: WARFARIN NA 10 MG TABLET (FP) PO SCH (22:00)
[2018-07-31] MEDS: GABAPENTIN 100 MG CAPSULE (FP) PO SCH ×3 (05:37→22:46)
[2018-07-31] MEDS: LACTOBACILLUS ACIDOPHILUS 1 TABLET PO SCH ×3 (05:37→22:46)
[2018-07-31] MEDS: NYSTATIN 100,000 UNIT/GM TOPICAL CREAM 15 GM TUBE TP SCH ×4 (05:39→23:15)
[2018-07-31] MEDS: INSULIN SLIDING SCALE (NOVOLOG) 1 VIAL SQ SCH ×4 (06:06→22:46)
[2018-07-31] MEDS: LEVOTHYROXINE NA 25 MCG TABLET (FP) PO SCH (06:06)
[2018-07-31] MEDS: oxyCODONE HCL 5 MG TABLET PO PRN ×2 (06:06→18:24)
[2018-07-31 06:58] LABS: BASO % 0.1 % (0-2.0); EOS % 5.7 % (0-4.5); HEMATOCRIT 22.3 % (32.4-45.2); HEMOGLOBIN 7.4 GM/dL (10.7-15.3); LYMPH % 10.6 % (8-40); MCH 31.5 pg (25.7-33.7); MCHC 33.3 g/dl (32.0-36.0); MEAN CELL VOLUME 94.5 fl (80-96); MEAN PLT VOLUME 7.8 fl (7.5-11.1); MONO % 2.5 % (3.8-10.2); NEUT % 81.1 % (42.8-82.8); PLATELET COUNT 132 K/MM3 (134-434); RBC 2.36 M/mm3 (3.60-5.2); RDW 18.5 % (11.6-15.6); WHITE BLOOD COUNT 4.5 K/mm3 (4.0-10.0)
[2018-07-31 07:02] LABS: INR 2.74 (0.83-1.09); PROTHROMBIN TIME (PATIENT) 32.7 SEC (9.7-13.0)
--- NOTE | 2018-07-31 07:31 | PN ---
Progress Note, Physician Chief Complaint: C/O Diarrhea and body pain History of Present Illness: 67 year old woman with past medical history of HTN, HLD, DM, A.fib(on coumadin) , prior DVT, CML, COPD, congenital goiter, pulmonary hypertension, hypothyroidism, choledocholithiasis, biliary pancreatitis, was BIBA from [facility] after being noted to be lethargic since yesterday. Patient was recently admitted (07/17) due to sepsis 2/2 Staph and VRE + LLE cellulitis. She was treated with IV vancomycin and was sent home with Clindamycin for 7 days, in the ED lab shows worsening renal function, elevated INR, Hyperklaemia - Current Medication List Current Medications: Active Medications Acetaminophen (Tylenol -) 650 mg PO Q6H PRN PRN Reason: PAIN LEVEL 1 - 3 Al Hydroxide/Mg Hydroxide (Mylanta Oral Suspension -) 30 ml PO Q6H PRN PRN Reason: heartburn Albuterol Sulfate (Ventolin Hfa Inhaler -) 2 puff IH Q8H PRN PRN Reason: SHORTNESS OF BREATH Albuterol/Ipratropium (Duoneb -) 1 amp NEB Q6H PRN PRN Reason: SHORTNESS OF BREATH Ascorbic Acid (Vitamin C -) 500 mg PO DAILY [facility] Diltiazem HCl (Cardizem Cd -) 120 mg PO DAILY [facility] Gabapentin (Neurontin -) 100 mg PO TID [facility] Last Admin: 07/31/18 05:37 Dose: 100 mg Sodium Chloride (Normal Saline -) 1,000 mls @ 75 mls/hr IV ASDIR [facility] Last Admin: 07/30/18 17:58 Dose: 75 mls/hr Insulin Aspart (Novolog Vial Sliding Scale -) 1 vial SQ ACHS [facility]; Protocol Last Admin: 07/31/18 06:06 Dose: Not Given Lactic Acid (Lac-Hydrin 12) 1 applic TP DAILY [facility] Lactobacillus Acidophilus (Bacid -) 1 tab PO TID [facility] Last Admin: 07/31/18 05:37 Dose: 1 tab Levothyroxine Sodium (Synthroid -) 25 mcg PO DAILY@0700 [facility] Last Admin: 07/31/18 06:06 Dose: 25 mcg Multivitamins (Total B With C -) 1 each PO DAILY [facility] Nystatin (Mycostatin Cream -) 1 applic TP Q6HPO [facility] Last Admin: 07/31/18 05:39 Dose: 1 applic Oxycodone HCl (Roxicodone -) 10 mg PO Q6H PRN PRN Reason: PAIN LEVEL 6-10 Last Admin: 07/31/18 06:06 Dose: 10 mg Pantoprazole Sodium (Protonix -) 40 mg PO DAILY [facility] - Objective Vital Signs: Vital Signs Temperature 98.2 F 07/31/18 06:00 Pulse Rate 68 07/31/18 06:00 Respiratory Rate 20 07/31/18 06:00 Blood Pressure 106/42 L 07/31/18 06:00 O2 Sat by Pulse Oximetry (%) 97 07/30/18 21:00 Elderly F feels improved not in distress HEENT: Mm moist, anemia, PERRLA, EOMI NECK: No JVd No Bruit, CHEST: Minimal basal Crepts CVS: S1S2 R no m/g/r ABD: Obese, non tender Soft EXT: B/L Chronic Venous stasis changes Left sided wound in dressing with exudative discharge 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 non focal DERM: sever diffuse Groin rash Labs: INR, PTT INR 2.74 (0.83-1.09) H 07/31/18 06:00 CBC, BMP 07/31/18 06:00 07/31/18 06:00 Problem List - Problems (1) Acute kidney injury superimposed on CKD Assessment/Plan: Present with elevated BUN/Creat top on base line cKD , Hyperkalemia impropved renal functions are improving F/U BMP Code(s): N17.9 - ACUTE KIDNEY FAILURE, UNSPECIFIED; N18.9 - CHRONIC KIDNEY DISEASE, UNSPECIFIED (2) A-fib Assessment/Plan: Rate controlled on AC supratherapeutic INR therapeutic will add coumding F/U INR in am Code(s): I48.91 - UNSPECIFIED ATRIAL FIBRILLATION Qualifiers: Atrial fibrillation type: chronic Qualified Code(s): I48.2 - Chronic atrial fibrillation (3) Toxic metabolic encephalopathy Assessment/Plan: admitted with altered mental status with elevated BUN and electrolyte imbalance Ct head no acute changes, hemodynamically stable.today alert and oriented at base line Code(s): G92 - TOXIC ENCEPHALOPATHY (4) Diarrhea Assessment/Plan: No BM since yesterday , nio fever no abd pain, F/U Stool C diff Code(s): R19.7 - DIARRHEA, UNSPECIFIED (5) Cellulitis Assessment/Plan: completed abx will observe Code(s): L03.90 - CELLULITIS, UNSPECIFIED Qualifiers: Site of cellulitis: extremity Site of cellulitis of extremity: lower extremity Laterality: unspecified laterality Qualified Code(s): L03.119 - Cellulitis of unspecified part of limb (6) HTN (hypertension) Assessment/Plan: Well controlled cont home meds Code(s): I10 - ESSENTIAL (PRIMARY) HYPERTENSION (7) Hyperkalemia Assessment/Plan: Due to ASA resolved Code(s): E87.5 - HYPERKALEMIA (8) Lymphedema Assessment/Plan: Chronic Code(s): I89.0 - LYMPHEDEMA, NOT ELSEWHERE CLASSIFIED (9) T2DM (type 2 diabetes mellitus) Assessment/Plan: Cont correction dose insulin Code(s): E11.9 - TYPE 2 DIABETES MELLITUS WITHOUT COMPLICATIONS Qualifiers: Diabetes mellitus complication status: with neurologic complications (10) UTI (urinary tract infection) Assessment/Plan: WBC in Urine but no fever F/U culture f/u ID input. Code(s): N39.0 - URINARY TRACT INFECTION, SITE NOT SPECIFIED Qualifiers: Urinary tract infection type: acute cystitis Hematuria presence: without hematuria Qualified Code(s): N30.00 - Acute cystitis without hematuria (11) CML (chronic myelocytic leukemia) Assessment/Plan: Chronic Code(s): C92.10 - CHRONIC MYELOID LEUK, BCR/ABL-POSITIVE, NOT ACHIEVE REMIS (12) Hypothyroid Assessment/Plan: on Levothyroxine Code(s): E03.9 - HYPOTHYROIDISM, UNSPECIFIED (13) COPD (chronic obstructive pulmonary disease) Assessment/Plan: Cont PRN Duoneb Code(s): J44.9 - CHRONIC OBSTRUCTIVE PULMONARY DISEASE, UNSPECIFIED (14) Supratherapeutic INR Assessment/Plan: INR therapeutic will resume coumadin F/U INR in am Code(s): R79.1 - ABNORMAL COAGULATION PROFILE (15) Groin rash Assessment/Plan: Cont Nystatin Code(s): R21 - RASH AND OTHER NONSPECIFIC SKIN ERUPTION
[2018-07-31 07:46] LABS: ALBUMIN 1.9 g/dl (3.4-5.0); ALK PHOS 185 U/L (45-117); ANION GAP 8 MMOL/L (8-16); BILIRUBIN,TOTAL 0.3 mg/dL (0.2-1); BLOOD UREA NITROGEN 55 mg/dL (7-18); CALCIUM 7.6 mg/dL (8.5-10.1); CHLORIDE 108 mmol/L (98-107); CO2 22 mmol/L (21-32); CREATININE 2.6 mg/dL (0.55-1.3); GLUCOSE,RANDOM 89 mg/dL (74-106); POTASSIUM 4.5 mmol/L (3.5-5.1); SGOT/AST 14 U/L (15-37); SGPT/ALT 17 U/L (13-61); SODIUM 138 mmol/L (136-145); TOT PROT 8.1 g/dl (6.4-8.2)
[2018-07-31] MEDS ORDERED: PT OWN MED DRAWER 7, Y5N ONE ×2 (09:30→13:38)
[2018-07-31] MEDS: PANTOPRAZOLE 40 MG TABLET (FP) PO SCH (09:39)
[2018-07-31] MEDS: ASCORBIC ACID 500 MG TABLET (FP) PO SCH (09:40)
[2018-07-31] MEDS: MAG HYDROX/AL HYDROX/SIMETH 30 ML UNIT-DOSE CUP PO PRN ×2 (09:49→17:17)
--- NOTE | 2018-07-31 13:03 | PN ---
Progress Note, Physician History of Present Illness: Pt seen and examine at bedside. She is awake and alert. Her mental status is markedly improved. She denies shortness of breath. - Current Medication List Current Medications: Active Medications Acetaminophen (Tylenol -) 650 mg PO Q6H PRN PRN Reason: PAIN LEVEL 1 - 3 Al Hydroxide/Mg Hydroxide (Mylanta Oral Suspension -) 30 ml PO Q6H PRN PRN Reason: heartburn Last Admin: 07/31/18 09:49 Dose: 30 ml Albuterol Sulfate (Ventolin Hfa Inhaler -) 2 puff IH Q8H PRN PRN Reason: SHORTNESS OF BREATH Albuterol/Ipratropium (Duoneb -) 1 amp NEB Q6H PRN PRN Reason: SHORTNESS OF BREATH Ascorbic Acid (Vitamin C -) 500 mg PO DAILY [facility] Last Admin: 07/31/18 09:40 Dose: 500 mg Diltiazem HCl (Cardizem Cd -) 120 mg PO DAILY [facility] Last Admin: 07/31/18 09:40 Dose: 120 mg Gabapentin (Neurontin -) 100 mg PO TID [facility] Last Admin: 07/31/18 05:37 Dose: 100 mg Sodium Chloride (Normal Saline -) 1,000 mls @ 75 mls/hr IV ASDIR [facility] Last Admin: 07/30/18 17:58 Dose: 75 mls/hr Insulin Aspart (Novolog Vial Sliding Scale -) 1 vial SQ ACHS [facility]; Protocol Last Admin: 07/31/18 11:54 Dose: 2 units Lactic Acid (Lac-Hydrin 12) 1 applic TP DAILY [facility] Lactobacillus Acidophilus (Bacid -) 1 tab PO TID [facility] Last Admin: 07/31/18 05:37 Dose: 1 tab Levothyroxine Sodium (Synthroid -) 25 mcg PO DAILY@0700 [facility] Last Admin: 07/31/18 06:06 Dose: 25 mcg Multivitamins (Total B With C -) 1 each PO DAILY [facility] Nystatin (Mycostatin Cream -) 1 applic TP Q6HPO [facility] Last Admin: 07/31/18 05:39 Dose: 1 applic Oxycodone HCl (Roxicodone -) 10 mg PO Q6H PRN PRN Reason: PAIN LEVEL 6-10 Last Admin: 07/31/18 06:06 Dose: 10 mg Pantoprazole Sodium (Protonix -) 40 mg PO DAILY [facility] Last Admin: 07/31/18 09:39 Dose: 40 mg Warfarin Sodium (Coumadin -) 5 mg PO DAILY@1800 [facility] - Objective Vital Signs: Vital Signs Temperature 98.2 F 07/31/18 06:00 Pulse Rate 68 07/31/18 06:00 Respiratory Rate 20 07/31/18 06:00 Blood Pressure 106/42 L 07/31/18 06:00 O2 Sat by Pulse Oximetry (%) 97 07/30/18 21:00 Constitutional: Yes: Calm, Poor Hygeine HENT: Yes: Atraumatic Cardiovascular: Yes: S1, S2 Respiratory: Yes: CTA Bilaterally Gastrointestinal: Yes: Soft, Abdomen, Obese Genitourinary: Yes: WNL Musculoskeletal: Yes: WNL Edema: Yes Edema: LLE: 2+, RLE: 2+ Integumentary: Yes: Other (scaling of skin upper torso) Neurological: Yes: Oriented Psychiatric: Yes: Oriented Labs: CBC, BMP 07/31/18 06:00 07/31/18 06:00 INR, PTT INR 2.74 (0.83-1.09) H 07/31/18 06:00 - ....Imaging Ultrasound: Report Reviewed Problem List - Problems (1) ASA (acute kidney injury) Code(s): N17.9 - ACUTE KIDNEY FAILURE, UNSPECIFIED (2) Hyperkalemia Code(s): E87.5 - HYPERKALEMIA Assessment/Plan Current Medications Generic Name Dose Route Start Last Admin Trade Name Freq PRN Reason Stop Dose Admin Acetaminophen 650 mg 07/30/18 14:19 Tylenol - PO Q6H PRN PAIN LEVEL 1 - 3 Al Hydroxide/Mg Hydroxide 30 ml 07/30/18 14:19 07/31/18 09:49 Mylanta Oral Suspension - PO 30 ml Q6H PRN Administration heartburn Albuterol Sulfate 2 puff 07/30/18 14:19 Ventolin Hfa Inhaler - IH Q8H PRN SHORTNESS OF BREATH Albuterol/Ipratropium 1 amp 07/30/18 14:25 Duoneb - NEB Q6H PRN SHORTNESS OF BREATH Ascorbic Acid 500 mg 07/31/18 10:00 07/31/18 09:40 Vitamin C - PO 500 mg DAILY [facility] Administration Diltiazem HCl 120 mg 07/31/18 10:00 07/31/18 09:40 Cardizem Cd - PO 120 mg DAILY [facility] Administration Gabapentin 100 mg 07/30/18 14:45 07/31/18 05:37 Neurontin - PO 100 mg TID [facility] Administration Sodium Chloride 1,000 mls @ 75 mls/hr 07/30/18 15:45 07/30/18 17:58 Normal Saline - IV 75 mls/hr ASDIR [facility] Administration Insulin Aspart 1 vial 07/30/18 07:00 07/31/18 11:54 Novolog Vial Sliding Scale - SQ 2 units ACHS [facility] Administration Protocol Lactic Acid 1 applic 07/31/18 10:00 Lac-Hydrin 12 TP DAILY [facility] Lactobacillus Acidophilus 1 tab 07/30/18 22:00 07/31/18 05:37 Bacid - PO 1 tab TID [facility] Administration Levothyroxine Sodium 25 mcg 07/31/18 07:00 07/31/18 06:06 Synthroid - PO 25 mcg DAILY@0700 [facility] Administration Multivitamins 1 each 07/31/18 10:00 Total B With C - PO DAILY [facility] Nystatin 1 applic 07/29/18 22:45 07/31/18 05:39 Mycostatin Cream - TP 1 applic Q6HPO [facility] Administration Oxycodone HCl 10 mg 07/29/18 22:39 07/31/18 06:06 Roxicodone - PO 10 mg Q6H PRN Administration PAIN LEVEL 6-10 Pantoprazole Sodium 40 mg 07/31/18 10:00 07/31/18 09:39 Protonix - PO 40 mg DAILY [facility] Administration Warfarin Sodium 5 mg 07/31/18 18:00 Coumadin - PO DAILY@1800 [facility] Impression 1. ASA 2. anemia 3. hyperkalemia 4. CML 5. hypothyroidism 6. HTN 7. chol 8. CHF 9. COPD 10. a-fib Plan - renal function is improving - reviewed renal ultrasound, pt also has ascites - pt has significant lower ext edema - will stop fluids and monitor renal function - diuretics are on hold - will follow Dr Sanchez
--- NOTE | 2018-07-31 13:06 | CON.ID ---
Consult Consult Specialty:: infectious diseases Referred by:: Reason for Consultation:: bacteremia - History of Present Illness Chief Complaint: weakness,lethargy History of Present Illness: 67 yo f w/ PMH HTN, HLD, DM, afib DVT in the past, CML, COPD who was BIBA from [facility] for lethargy for the past 1 day. The patient had a recent admission on 07/17 for sepsis 2/2 LE cellulitis. She was treated with Vancomycin for 1 week and d/c on 7 days of Clindamycin. Today, patient endorses increased sleepiness and weakness. The patient also endorses approx. a 1 month history of b/l LE edema causeing approx. 10lbs weight gain. She has been limiting her PO fluid intake to attempt to make the swelling go down. Patient also endorses decreased PO intake over the past few weeks. Patient denies fever, chills chest pain, abdominal pain, SOB or sick contacts. currently patient feels better but says she feels very weak - History Source History Provided By: Patient Limitations to Obtaining History: No Limitations - Past Medical History AML ANALYST: Yes: Dementia Cardio/Vascular: Yes: HTN, Hyperlipdemia, Murmur, Pulmonary Hypertension Pulmonary: Yes: COPD Gastrointestinal: Yes: Constipation Hepatobiliary: Yes: Cholelithiasis, Cholecystitis, Choledocholithiasis, Other Renal/: Yes: Renal Calculi Musculoskeletal: Yes: Chronic low back pain Endocrine: Yes: Diabetes Mellitus, Hypothyroidism Additional Medical History: Diabetic retinopathy. 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2 mg IH Q8H PRN 07/18/18 RX: L. Acidophilus/Bifid. Animalis [Probiotic 5 Billion Cell Cap] 1 each PO TID 07/18/18 RX: Oxycodone HCl 10 mg PO Q6H PRN 07/18/18 RX: Polyethylene Glycol 3350 [Miralax 255 gm Btl -] 17 gm PO TID 07/18/18 RX: Vitamin B Complex 1 tab PO DAILY 07/18/18 RX: Warfarin Na [Coumadin -] 10 mg PO HS 07/18/18 RX: metFORMIN HCL [Metformin HCl] 500 mg PO BID 07/18/18 RX: Diltiazem Cd [Cardizem Cd -] 120 mg PO DAILY cap.cd.24h 07/23/18 RX: Docusate Sodium [Colace -] 100 mg PO TID capsule 07/23/18 RX: Levothyroxine [Synthroid -] 25 mcg PO DAILY@0700 tablet 07/23/18 RX: Sennosides [Senna -] 1 tab PO BID tablet 07/23/18 Acetaminophen [Pain Relief] 650 mg PO Q6H PRN 07/29/18 Bisacodyl Suppository [Dulcolax Suppository -] 10 mg RC DAILY PRN 07/29/18 Clindamycin [Cleocin -] 300 mg PO Q6HPO 07/29/18 Insulin Lispro [Humalog] 0 unit SQ ASDIR 07/29/18 Mag Hydrox/Al Hydrox/Simeth [Mylanta *Suspension*] 30 ml PO Q6H PRN 07/29/18 RX: Pantoprazole Sodium 40 mg PO DAILY 07/29/18 RX: Torsemide 20 mg PO BID 07/29/18 RX: Vitamin B Complex 1 each PO DAILY 07/29/18 Family Disease History - Family Disease History Family Disease History: CA: Father, Mother Review of Systems - Review of Systems Constitutional: reports: Weakness Eyes: reports: No Symptoms HENT: reports: No Symptoms Neck: reports: No Symptoms Cardiovascular: reports: No Symptoms Respiratory: reports: No Symptoms Gastrointestinal: reports: No Symptoms Genitourinary: reports: No Symptoms Musculoskeletal: reports: No Symptoms Integumentary: reports: No Symptoms Neurological: reports: No Symptoms Endocrine: reports: No Symptoms Hematology/Lymphatic: reports: No Symptoms Psychiatric: reports: No Symptoms Physical Exam Vital Signs: Vital Signs Temperature 98.2 F 07/31/18 06:00 Pulse Rate 68 07/31/18 06:00 Respiratory Rate 20 07/31/18 06:00 Blood Pressure 106/42 L 07/31/18 06:00 O2 Sat by Pulse Oximetry (%) 97 07/30/18 21:00 Constitutional: Yes: Calm, Obese Neck: Yes: Supple Cardiovascular: Yes: Pulse Irregular Respiratory: Yes: Regular, CTA Bilaterally Gastrointestinal: Yes: Normal Bowel Sounds, Soft Musculoskeletal: Yes: WNL Extremities: Yes: Other Neurological: Yes: Alert, Oriented Psychiatric: Yes: Alert, Oriented Labs: CBC, BMP 07/31/18 06:00 07/31/18 06:00 Assessment/Plan Problem List - Problems (1) Acute kidney injury superimposed on CKD Code(s): N17.9 - ACUTE KIDNEY FAILURE, UNSPECIFIED; N18.9 - CHRONIC KIDNEY DISEASE, UNSPECIFIED (2) A-fib Code(s): I48.91 - UNSPECIFIED ATRIAL FIBRILLATION Qualifiers: Atrial fibrillation type: chronic Qualified Code(s): I48.2 - Chronic atrial fibrillation (3) Toxic metabolic encephalopathy Code(s): G92 - TOXIC ENCEPHALOPATHY (4) Diarrhea Code(s): R19.7 - DIARRHEA, UNSPECIFIED (5) Cellulitis Code(s): L03.90 - CELLULITIS, UNSPECIFIED Qualifiers: Site of cellulitis: extremity Site of cellulitis of extremity: lower extremity Laterality: unspecified laterality Qualified Code(s): L03.119 - Cellulitis of unspecified part of limb (6) HTN (hypertension) Code(s): I10 - ESSENTIAL (PRIMARY) HYPERTENSION (7) Hyperkalemia Code(s): E87.5 - HYPERKALEMIA (8) Lymphedema Code(s): I89.0 - LYMPHEDEMA, NOT ELSEWHERE CLASSIFIED (9) T2DM (type 2 diabetes mellitus) Code(s): E11.9 - TYPE 2 DIABETES MELLITUS WITHOUT COMPLICATIONS Qualifiers: Diabetes mellitus complication status: with neurologic complications (10) UTI (urinary tract infection) Code(s): N39.0 - URINARY TRACT INFECTION, SITE NOT SPECIFIED Qualifiers: Urinary tract infection type: acute cystitis Hematuria presence: without hematuria Qualified Code(s): N30.00 - Acute cystitis without hematuria (11) CML (chronic myelocytic leukemia) Code(s): C92.10 - CHRONIC MYELOID LEUK, BCR/ABL-POSITIVE, NOT ACHIEVE REMIS (12) Hypothyroid Code(s): E03.9 - HYPOTHYROIDISM, UNSPECIFIED (13) COPD (chronic obstructive pulmonary disease) Code(s): J44.9 - CHRONIC OBSTRUCTIVE PULMONARY DISEASE, UNSPECIFIED (14) Supratherapeutic INR Code(s): R79.1 - ABNORMAL COAGULATION PROFILE (15) Groin rash Code(s): R21 - RASH AND OTHER NONSPECIFIC SKIN ERUPTION bacteremia plan will not start patient on abx close watch hydration await for all cx reports once stable physio rest as per the team
[2018-07-31] MEDS ORDERED: VANCOMYCIN 1 GRAM (PRE-DOCKED) 1,000 MG/250 ML BAG IVPB ONE (13:30)
[2018-07-31] MEDS: AMMONIUM LACTATE 12% LOTION 225 GM BOTTLE TP SCH (13:35)
[2018-07-31] MEDS: VITAMIN B COMPLEX W/C COMBO TABLET (FP) PO SCH (13:39)
[2018-07-31] MEDS: WARFARIN NA 5 MG TABLET (UD) PO SCH (18:25)
[2018-07-31] MEDS: ACETAMINOPHEN 325 MG TABLET (FP) PO PRN (18:26)
[2018-08-01] MEDS: LACTOBACILLUS ACIDOPHILUS 1 TABLET PO SCH ×3 (06:05→22:07)
[2018-08-01] MEDS: NYSTATIN 100,000 UNIT/GM TOPICAL CREAM 15 GM TUBE TP SCH ×3 (06:05→19:00)
[2018-08-01] MEDS: INSULIN SLIDING SCALE (NOVOLOG) 1 VIAL SQ SCH ×4 (06:05→22:07)
[2018-08-01] MEDS: LEVOTHYROXINE NA 25 MCG TABLET (FP) PO SCH (06:05)
[2018-08-01] MEDS: GABAPENTIN 100 MG CAPSULE (FP) PO SCH ×3 (06:05→22:07)
[2018-08-01] MEDS: oxyCODONE HCL 5 MG TABLET PO PRN ×3 (06:06→18:57)
[2018-08-01] MEDS ORDERED: PT OWN MED DRAWER 7, Y5N ONE ×2 (06:34→10:27)
[2018-08-01 06:51] LABS: BASO % 0.1 % (0-2.0); HEMATOCRIT 20.2 % (32.4-45.2); HEMOGLOBIN 7.1 GM/dL (10.7-15.3); MCH 32.9 pg (25.7-33.7); MCHC 35.3 g/dl (32.0-36.0); MEAN PLT VOLUME 7.8 fl (7.5-11.1); MONO % 4.5 % (3.8-10.2); NEUT % 79.4 % (42.8-82.8); PLATELET COUNT 130 K/MM3 (134-434); RBC 2.17 M/mm3 (3.60-5.2); RDW 17.8 % (11.6-15.6); WHITE BLOOD COUNT 4.3 K/mm3 (4.0-10.0)
[2018-08-01 07:50] LABS: ALBUMIN 1.8 g/dl (3.4-5.0); ALK PHOS 166 U/L (45-117); ANION GAP 6 MMOL/L (8-16); BILIRUBIN,TOTAL 0.3 mg/dL (0.2-1); BLOOD UREA NITROGEN 46 mg/dL (7-18); CALCIUM 7.5 mg/dL (8.5-10.1); CHLORIDE 107 mmol/L (98-107); CO2 23 mmol/L (21-32); CREATININE 2.1 mg/dL (0.55-1.3); GLUCOSE,RANDOM 85 mg/dL (74-106); POTASSIUM 4.2 mmol/L (3.5-5.1); SGOT/AST 14 U/L (15-37); SGPT/ALT 15 U/L (13-61); SODIUM 137 mmol/L (136-145); TOT PROT 7.8 g/dl (6.4-8.2)
[2018-08-01 08:41] LABS: INR 1.56 (0.83-1.09); PROTHROMBIN TIME (PATIENT) 18.5 SEC (9.7-13.0)
--- NOTE | 2018-08-01 10:34 | PN ---
Progress Note, Physician History of Present Illness: Pt seen and examined at bedside. She is awake and alert. She denies shortness of breath. - Current Medication List Current Medications: Active Medications Acetaminophen (Tylenol -) 650 mg PO Q6H PRN PRN Reason: PAIN LEVEL 1 - 3 Last Admin: 07/31/18 18:26 Dose: 650 mg Al Hydroxide/Mg Hydroxide (Mylanta Oral Suspension -) 30 ml PO Q6H PRN PRN Reason: heartburn Last Admin: 07/31/18 17:17 Dose: 30 ml Albuterol Sulfate (Ventolin Hfa Inhaler -) 2 puff IH Q8H PRN PRN Reason: SHORTNESS OF BREATH Albuterol/Ipratropium (Duoneb -) 1 amp NEB Q6H PRN PRN Reason: SHORTNESS OF BREATH Ascorbic Acid (Vitamin C -) 500 mg PO DAILY [facility] Last Admin: 07/31/18 09:40 Dose: 500 mg Diltiazem HCl (Cardizem Cd -) 120 mg PO DAILY [facility] Last Admin: 07/31/18 09:40 Dose: 120 mg Gabapentin (Neurontin -) 100 mg PO TID [facility] Last Admin: 08/01/18 06:05 Dose: 100 mg Insulin Aspart (Novolog Vial Sliding Scale -) 1 vial SQ ACHS [facility]; Protocol Last Admin: 08/01/18 06:05 Dose: Not Given Lactic Acid (Lac-Hydrin 12) 1 applic TP DAILY [facility] Last Admin: 07/31/18 13:35 Dose: 1 applic Lactobacillus Acidophilus (Bacid -) 1 tab PO TID [facility] Last Admin: 08/01/18 06:05 Dose: 1 tab Levothyroxine Sodium (Synthroid -) 25 mcg PO DAILY@0700 [facility] Last Admin: 08/01/18 06:05 Dose: 25 mcg Multivitamins (Total B With C -) 1 each PO DAILY [facility] Last Admin: 07/31/18 13:39 Dose: Not Given Nystatin (Mycostatin Cream -) 1 applic TP Q6HPO [facility] Last Admin: 08/01/18 06:05 Dose: 1 applic Oxycodone HCl (Roxicodone -) 10 mg PO Q6H PRN PRN Reason: PAIN LEVEL 6-10 Last Admin: 08/01/18 06:06 Dose: 10 mg Pantoprazole Sodium (Protonix -) 40 mg PO DAILY [facility] Last Admin: 07/31/18 09:39 Dose: 40 mg Warfarin Sodium (Coumadin -) 5 mg PO DAILY@1800 [facility] Last Admin: 07/31/18 18:25 Dose: 5 mg - Objective Vital Signs: Vital Signs Temperature 98.2 F 08/01/18 05:58 Pulse Rate 73 08/01/18 05:58 Respiratory Rate 20 08/01/18 05:58 Blood Pressure 102/52 L 08/01/18 05:58 O2 Sat by Pulse Oximetry (%) 100 07/31/18 21:00 Constitutional: Yes: Calm Eyes: Yes: Conjunctiva Clear Cardiovascular: Yes: S1, S2 Respiratory: Yes: On Nasal O2 Gastrointestinal: Yes: Soft Genitourinary: Yes: WNL Edema: Yes Edema: LLE: 2+, RLE: 2+ Integumentary: Yes: Venous Stasis Changes Neurological: Yes: Oriented Psychiatric: Yes: Oriented Labs: CBC, BMP 08/01/18 06:00 08/01/18 06:00 INR, PTT INR 1.56 (0.83-1.09) H 08/01/18 06:00 Problem List - Problems (1) ASA (acute kidney injury) Code(s): N17.9 - ACUTE KIDNEY FAILURE, UNSPECIFIED (2) Hyperkalemia Code(s): E87.5 - HYPERKALEMIA Assessment/Plan Current Medications Generic Name Dose Route Start Last Admin Trade Name Freq PRN Reason Stop Dose Admin Acetaminophen 650 mg 07/30/18 14:19 07/31/18 18:26 Tylenol - PO 650 mg Q6H PRN Administration PAIN LEVEL 1 - 3 Al Hydroxide/Mg Hydroxide 30 ml 07/30/18 14:19 07/31/18 17:17 Mylanta Oral Suspension - PO 30 ml Q6H PRN Administration heartburn Albuterol Sulfate 2 puff 07/30/18 14:19 Ventolin Hfa Inhaler - IH Q8H PRN SHORTNESS OF BREATH Albuterol/Ipratropium 1 amp 07/30/18 14:25 Duoneb - NEB Q6H PRN SHORTNESS OF BREATH Ascorbic Acid 500 mg 07/31/18 10:00 07/31/18 09:40 Vitamin C - PO 500 mg DAILY [facility] Administration Diltiazem HCl 120 mg 07/31/18 10:00 07/31/18 09:40 Cardizem Cd - PO 120 mg DAILY [facility] Administration Gabapentin 100 mg 07/30/18 14:45 08/01/18 06:05 Neurontin - PO 100 mg TID [facility] Administration Insulin Aspart 1 vial 07/30/18 07:00 08/01/18 06:05 Novolog Vial Sliding Scale - SQ Not Given ACHS [facility] Protocol Lactic Acid 1 applic 07/31/18 10:00 07/31/18 13:35 Lac-Hydrin 12 TP 1 applic DAILY [facility] Administration Lactobacillus Acidophilus 1 tab 07/30/18 22:00 08/01/18 06:05 Bacid - PO 1 tab TID [facility] Administration Levothyroxine Sodium 25 mcg 07/31/18 07:00 08/01/18 06:05 Synthroid - PO 25 mcg DAILY@0700 [facility] Administration Multivitamins 1 each 07/31/18 10:00 07/31/18 13:39 Total B With C - PO Not Given DAILY [facility] Nystatin 1 applic 07/29/18 22:45 08/01/18 06:05 Mycostatin Cream - TP 1 applic Q6HPO [facility] Administration Oxycodone HCl 10 mg 07/29/18 22:39 08/01/18 06:06 Roxicodone - PO 10 mg Q6H PRN Administration PAIN LEVEL 6-10 Pantoprazole Sodium 40 mg 07/31/18 10:00 07/31/18 09:39 Protonix - PO 40 mg DAILY [facility] Administration Warfarin Sodium 5 mg 07/31/18 18:00 07/31/18 18:25 Coumadin - PO 5 mg DAILY@1800 [facility] Administration Impression 1. ASA 2. anemia 3. hyperkalemia 4. CML 5. hypothyroidism 6. HTN 7. chol 8. CHF 9. COPD 10. a-fib Plan - will give a dose of torsemide - fluids on hold - monitor volume status - repeat labs in am - pt has significant lower ext edema - will follow Dr Sanchez
[2018-08-01] MEDS: PANTOPRAZOLE 40 MG TABLET (FP) PO SCH (10:55)
[2018-08-01] MEDS: VITAMIN B COMPLEX W/C COMBO TABLET (FP) PO SCH (10:55)
[2018-08-01] MEDS: ASCORBIC ACID 500 MG TABLET (FP) PO SCH (10:55)
[2018-08-01] MEDS: AMMONIUM LACTATE 12% LOTION 225 GM BOTTLE TP SCH (10:56)
[2018-08-01] MEDS ORDERED: TORSEMIDE 10 MG TABLET PO ONE (11:00)
--- NOTE | 2018-08-01 12:34 | PN ---
Progress Note, Physician Chief Complaint: Ms Hernandez says she is feeling much better today. Denies cp, sob, n/v. Still with significant leg swelling. - Current Medication List Current Medications: Active Medications Acetaminophen (Tylenol -) 650 mg PO Q6H PRN PRN Reason: PAIN LEVEL 1 - 3 Last Admin: 07/31/18 18:26 Dose: 650 mg Al Hydroxide/Mg Hydroxide (Mylanta Oral Suspension -) 30 ml PO Q6H PRN PRN Reason: heartburn Last Admin: 07/31/18 17:17 Dose: 30 ml Albuterol Sulfate (Ventolin Hfa Inhaler -) 2 puff IH Q8H PRN PRN Reason: SHORTNESS OF BREATH Albuterol/Ipratropium (Duoneb -) 1 amp NEB Q6H PRN PRN Reason: SHORTNESS OF BREATH Ascorbic Acid (Vitamin C -) 500 mg PO DAILY [facility] Last Admin: 08/01/18 10:55 Dose: 500 mg Diltiazem HCl (Cardizem Cd -) 120 mg PO DAILY [facility] Last Admin: 08/01/18 10:55 Dose: 120 mg Gabapentin (Neurontin -) 100 mg PO TID [facility] Last Admin: 08/01/18 06:05 Dose: 100 mg Insulin Aspart (Novolog Vial Sliding Scale -) 1 vial SQ ACHS [facility]; Protocol Last Admin: 08/01/18 12:05 Dose: Not Given Lactic Acid (Lac-Hydrin 12) 1 applic TP DAILY [facility] Last Admin: 08/01/18 10:56 Dose: 1 applic Lactobacillus Acidophilus (Bacid -) 1 tab PO TID [facility] Last Admin: 08/01/18 06:05 Dose: 1 tab Levothyroxine Sodium (Synthroid -) 25 mcg PO DAILY@0700 [facility] Last Admin: 08/01/18 06:05 Dose: 25 mcg Multivitamins (Total B With C -) 1 each PO DAILY [facility] Last Admin: 08/01/18 10:55 Dose: 1 each Nystatin (Mycostatin Cream -) 1 applic TP Q6HPO [facility] Last Admin: 08/01/18 06:05 Dose: 1 applic Oxycodone HCl (Roxicodone -) 10 mg PO Q6H PRN PRN Reason: PAIN LEVEL 6-10 Last Admin: 08/01/18 11:47 Dose: 10 mg Pantoprazole Sodium (Protonix -) 40 mg PO DAILY [facility] Last Admin: 08/01/18 10:55 Dose: 40 mg Warfarin Sodium (Coumadin -) 5 mg PO DAILY@1800 [facility] Last Admin: 07/31/18 18:25 Dose: 5 mg - Objective Vital Signs: Vital Signs Temperature 36.8 C 08/01/18 05:58 Pulse Rate 73 08/01/18 05:58 Respiratory Rate 20 08/01/18 05:58 Blood Pressure 102/52 L 08/01/18 05:58 O2 Sat by Pulse Oximetry (%) 100 07/31/18 21:00 Constitutional: Yes: No Distress, Calm, Obese Cardiovascular: Yes: Regular Rate and Rhythm. No: Gallop, Murmur, Rub Respiratory: Yes: Regular, CTA Bilaterally. No: Rales, Rhonchi, Wheezes Gastrointestinal: Yes: Normal Bowel Sounds, Soft. No: Distention, Tenderness Extremities: Yes: Other (chronic venous stasis changes) Edema: Yes Edema: LLE: 2+, RLE: 2+ Labs: CBC, BMP 08/01/18 06:00 08/01/18 06:00 INR, PTT INR 1.56 (0.83-1.09) H 08/01/18 06:00 Problem List - Problems (1) Acute kidney injury superimposed on CKD Assessment/Plan: -appreciate nephrology assistance and case discussed -much improved -hold fluids -give dose of torsemide -monitor Code(s): N17.9 - ACUTE KIDNEY FAILURE, UNSPECIFIED; N18.9 - CHRONIC KIDNEY DISEASE, UNSPECIFIED (2) Toxic metabolic encephalopathy Assessment/Plan: -secondary to ASA on CKD -resolved Code(s): G92 - TOXIC ENCEPHALOPATHY (3) Supratherapeutic INR Assessment/Plan: -resolved -coumadin restarted -daily INR Code(s): R79.1 - ABNORMAL COAGULATION PROFILE (4) Diarrhea Assessment/Plan: -resolved Code(s): R19.7 - DIARRHEA, UNSPECIFIED (5) Groin rash Assessment/Plan: -continue nystatin cream Code(s): R21 - RASH AND OTHER NONSPECIFIC SKIN ERUPTION (6) A-fib Assessment/Plan: -sounds sinus rhythm on exam -continue cardizem -coumadin restarted Code(s): I48.91 - UNSPECIFIED ATRIAL FIBRILLATION Qualifiers: Atrial fibrillation type: chronic Qualified Code(s): I48.2 - Chronic atrial fibrillation (7) COPD (chronic obstructive pulmonary disease) Assessment/Plan: -not in exacerbation Code(s): J44.9 - CHRONIC OBSTRUCTIVE PULMONARY DISEASE, UNSPECIFIED (8) Chronic anemia Assessment/Plan: -monitor -may need blood transfusion Code(s): D64.9 - ANEMIA, UNSPECIFIED (9) Diabetic neuropathy Assessment/Plan: -continue oxycodone and neurontin Code(s): E11.40 - TYPE 2 DIABETES MELLITUS WITH DIABETIC NEUROPATHY, UNSP (10) HTN (hypertension) Assessment/Plan: -well controlled Code(s): I10 - ESSENTIAL (PRIMARY) HYPERTENSION (11) T2DM (type 2 diabetes mellitus) Assessment/Plan: -diabetic diet -continue SSI Code(s): E11.9 - TYPE 2 DIABETES MELLITUS WITHOUT COMPLICATIONS Qualifiers: Diabetes mellitus complication status: with neurologic complications (12) Hypothyroid Assessment/Plan: -continue statin Code(s): E03.9 - HYPOTHYROIDISM, UNSPECIFIED
--- NOTE | 2018-08-01 13:12 | PN ---
Progress Note, Physician History of Present Illness: stable starting to improve no issues - Current Medication List Current Medications: Active Medications Acetaminophen (Tylenol -) 650 mg PO Q6H PRN PRN Reason: PAIN LEVEL 1 - 3 Last Admin: 07/31/18 18:26 Dose: 650 mg Al Hydroxide/Mg Hydroxide (Mylanta Oral Suspension -) 30 ml PO Q6H PRN PRN Reason: heartburn Last Admin: 07/31/18 17:17 Dose: 30 ml Albuterol Sulfate (Ventolin Hfa Inhaler -) 2 puff IH Q8H PRN PRN Reason: SHORTNESS OF BREATH Albuterol/Ipratropium (Duoneb -) 1 amp NEB Q6H PRN PRN Reason: SHORTNESS OF BREATH Ascorbic Acid (Vitamin C -) 500 mg PO DAILY [facility] Last Admin: 08/01/18 10:55 Dose: 500 mg Diltiazem HCl (Cardizem Cd -) 120 mg PO DAILY [facility] Last Admin: 08/01/18 10:55 Dose: 120 mg Gabapentin (Neurontin -) 100 mg PO TID [facility] Last Admin: 08/01/18 06:05 Dose: 100 mg Insulin Aspart (Novolog Vial Sliding Scale -) 1 vial SQ ACHS [facility]; Protocol Last Admin: 08/01/18 12:05 Dose: Not Given Lactic Acid (Lac-Hydrin 12) 1 applic TP DAILY [facility] Last Admin: 08/01/18 10:56 Dose: 1 applic Lactobacillus Acidophilus (Bacid -) 1 tab PO TID [facility] Last Admin: 08/01/18 06:05 Dose: 1 tab Levothyroxine Sodium (Synthroid -) 25 mcg PO DAILY@0700 [facility] Last Admin: 08/01/18 06:05 Dose: 25 mcg Multivitamins (Total B With C -) 1 each PO DAILY [facility] Last Admin: 08/01/18 10:55 Dose: 1 each Nystatin (Mycostatin Cream -) 1 applic TP Q6HPO [facility] Last Admin: 08/01/18 06:05 Dose: 1 applic Oxycodone HCl (Roxicodone -) 10 mg PO Q6H PRN PRN Reason: PAIN LEVEL 6-10 Last Admin: 08/01/18 11:47 Dose: 10 mg Pantoprazole Sodium (Protonix -) 40 mg PO DAILY [facility] Last Admin: 11/28/18 10:55 Dose: 40 mg Warfarin Sodium (Coumadin -) 5 mg PO DAILY@1800 [facility] Last Admin: 07/31/18 18:25 Dose: 5 mg - Objective Vital Signs: Vital Signs Temperature 98.2 F 08/01/18 05:58 Pulse Rate 73 08/01/18 05:58 Respiratory Rate 20 08/01/18 05:58 Blood Pressure 102/52 L 08/01/18 05:58 O2 Sat by Pulse Oximetry (%) 100 07/31/18 21:00 Constitutional: Yes: No Distress, Calm Cardiovascular: Yes: S1, S2 Respiratory: Yes: Regular, CTA Bilaterally Gastrointestinal: Yes: Normal Bowel Sounds, Soft Musculoskeletal: Yes: WNL Extremities: Yes: Other Edema: LLE: 1+, RLE: 1+ Neurological: Yes: Alert, Oriented Psychiatric: Yes: Alert, Oriented Labs: CBC, BMP 08/01/18 06:00 08/01/18 06:00 INR, PTT INR 1.56 (0.83-1.09) H 08/01/18 06:00 Assessment/Plan Problem List - Problems (1) Acute kidney injury superimposed on CKD Code(s): N17.9 - ACUTE KIDNEY FAILURE, UNSPECIFIED; N18.9 - CHRONIC KIDNEY DISEASE, UNSPECIFIED (2) A-fib Code(s): I48.91 - UNSPECIFIED ATRIAL FIBRILLATION Qualifiers: Atrial fibrillation type: chronic Qualified Code(s): I48.2 - Chronic atrial fibrillation (3) Toxic metabolic encephalopathy Code(s): G92 - TOXIC ENCEPHALOPATHY (4) Diarrhea Code(s): R19.7 - DIARRHEA, UNSPECIFIED (5) Cellulitis Code(s): L03.90 - CELLULITIS, UNSPECIFIED Qualifiers: Site of cellulitis: extremity Site of cellulitis of extremity: lower extremity Laterality: unspecified laterality Qualified Code(s): L03.119 - Cellulitis of unspecified part of limb (6) HTN (hypertension) Code(s): I10 - ESSENTIAL (PRIMARY) HYPERTENSION (7) Hyperkalemia Code(s): E87.5 - HYPERKALEMIA (8) Lymphedema Code(s): I89.0 - LYMPHEDEMA, NOT ELSEWHERE CLASSIFIED (9) T2DM (type 2 diabetes mellitus) Code(s): E11.9 - TYPE 2 DIABETES MELLITUS WITHOUT COMPLICATIONS Qualifiers: Diabetes mellitus complication status: with neurologic complications (10) UTI (urinary tract infection) Code(s): N39.0 - URINARY TRACT INFECTION, SITE NOT SPECIFIED Qualifiers: Urinary tract infection type: acute cystitis Hematuria presence: without hematuria Qualified Code(s): N30.00 - Acute cystitis without hematuria (11) CML (chronic myelocytic leukemia) Code(s): C92.10 - CHRONIC MYELOID LEUK, BCR/ABL-POSITIVE, NOT ACHIEVE REMIS (12) Hypothyroid Code(s): E03.9 - HYPOTHYROIDISM, UNSPECIFIED (13) COPD (chronic obstructive pulmonary disease) Code(s): J44.9 - CHRONIC OBSTRUCTIVE PULMONARY DISEASE, UNSPECIFIED (14) Supratherapeutic INR Code(s): R79.1 - ABNORMAL COAGULATION PROFILE (15) Groin rash Code(s): R21 - RASH AND OTHER NONSPECIFIC SKIN ERUPTION bacteremia plan continue to monitor off of abx rest as per the team
[2018-08-01] MEDS: WARFARIN NA 5 MG TABLET (UD) PO SCH (18:57)
[2018-08-02] MEDS: NYSTATIN 100,000 UNIT/GM TOPICAL CREAM 15 GM TUBE TP SCH ×4 (02:42→17:27)
[2018-08-02] MEDS: GABAPENTIN 100 MG CAPSULE (FP) PO SCH ×3 (06:30→21:30)
[2018-08-02] MEDS: LACTOBACILLUS ACIDOPHILUS 1 TABLET PO SCH ×3 (06:30→21:30)
[2018-08-02] MEDS: LEVOTHYROXINE NA 25 MCG TABLET (FP) PO SCH (06:31)
[2018-08-02] MEDS: INSULIN SLIDING SCALE (NOVOLOG) 1 VIAL SQ SCH ×4 (06:31→21:30)
[2018-08-02] MEDS: oxyCODONE HCL 5 MG TABLET PO PRN ×2 (06:31→21:31)
[2018-08-02 06:48] LABS: BASO % 0.2 % (0-2.0); EOS % 6.5 % (0-4.5); HEMATOCRIT 21.4 % (32.4-45.2); HEMOGLOBIN 7.6 GM/dL (10.7-15.3); LYMPH % 15.9 % (8-40); MCHC 35.3 g/dl (32.0-36.0); MEAN CELL VOLUME 93.4 fl (80-96); MEAN PLT VOLUME 7.8 fl (7.5-11.1); NEUT % 72.4 % (42.8-82.8); PLATELET COUNT 149 K/MM3 (134-434); RDW 18.5 % (11.6-15.6); WHITE BLOOD COUNT 4.3 K/mm3 (4.0-10.0)
[2018-08-02 07:00] LABS: INR 1.55 (0.83-1.09); PROTHROMBIN TIME (PATIENT) 18.4 SEC (9.7-13.0)
[2018-08-02 07:17] LABS: ANION GAP 8 MMOL/L (8-16); BLOOD UREA NITROGEN 45 mg/dL (7-18); CALCIUM 7.6 mg/dL (8.5-10.1); CHLORIDE 107 mmol/L (98-107); CO2 22 mmol/L (21-32); CREATININE 1.9 mg/dL (0.55-1.3); GLUCOSE,RANDOM 108 mg/dL (74-106); MAGNESIUM 2.7 mg/dL (1.8-2.4); PHOSPHOROUS 4.3 mg/dL (2.5-4.9); POTASSIUM 4.6 mmol/L (3.5-5.1); SODIUM 137 mmol/L (136-145)
[2018-08-02] MEDS ORDERED: PT OWN MED DRAWER 7, Y5N ONE (10:30)
[2018-08-02] MEDS: VITAMIN B COMPLEX W/C COMBO TABLET (FP) PO SCH (10:52)
[2018-08-02] MEDS: ASCORBIC ACID 500 MG TABLET (FP) PO SCH (10:52)
[2018-08-02] MEDS: PANTOPRAZOLE 40 MG TABLET (FP) PO SCH (10:52)
[2018-08-02] MEDS: AMMONIUM LACTATE 12% LOTION 225 GM BOTTLE TP SCH (10:53)
--- NOTE | 2018-08-02 14:04 | PN ---
Progress Note, Physician History of Present Illness: patient stable still weak - Current Medication List Current Medications: Active Medications Acetaminophen (Tylenol -) 650 mg PO Q6H PRN PRN Reason: PAIN LEVEL 1 - 3 Last Admin: 07/31/18 18:26 Dose: 650 mg Al Hydroxide/Mg Hydroxide (Mylanta Oral Suspension -) 30 ml PO Q6H PRN PRN Reason: heartburn Last Admin: 07/31/18 17:17 Dose: 30 ml Albuterol Sulfate (Ventolin Hfa Inhaler -) 2 puff IH Q8H PRN PRN Reason: SHORTNESS OF BREATH Albuterol/Ipratropium (Duoneb -) 1 amp NEB Q6H PRN PRN Reason: SHORTNESS OF BREATH Ascorbic Acid (Vitamin C -) 500 mg PO DAILY [facility] Last Admin: 08/02/18 10:52 Dose: 500 mg Diltiazem HCl (Cardizem Cd -) 120 mg PO DAILY [facility] Last Admin: 08/02/18 10:52 Dose: 120 mg Gabapentin (Neurontin -) 100 mg PO TID [facility] Last Admin: 08/02/18 06:30 Dose: 100 mg Insulin Aspart (Novolog Vial Sliding Scale -) 1 vial SQ ACHS [facility]; Protocol Last Admin: 08/02/18 11:35 Dose: Not Given Lactic Acid (Lac-Hydrin 12) 1 applic TP DAILY [facility] Last Admin: 08/02/18 10:53 Dose: 1 applic Lactobacillus Acidophilus (Bacid -) 1 tab PO TID [facility] Last Admin: 08/02/18 06:30 Dose: 1 tab Levothyroxine Sodium (Synthroid -) 25 mcg PO DAILY@0700 [facility] Last Admin: 08/02/18 06:31 Dose: 25 mcg Multivitamins (Total B With C -) 1 each PO DAILY [facility] Last Admin: 08/02/18 10:52 Dose: 1 each Nystatin (Mycostatin Cream -) 1 applic TP Q6HPO [facility] Last Admin: 08/02/18 06:32 Dose: 1 applic Oxycodone HCl (Roxicodone -) 10 mg PO Q6H PRN PRN Reason: PAIN LEVEL 6-10 Last Admin: 08/02/18 06:31 Dose: 10 mg Pantoprazole Sodium (Protonix -) 40 mg PO DAILY [facility] Last Admin: 08/02/18 10:52 Dose: 40 mg Warfarin Sodium (Coumadin -) 10 mg PO DAILY@1800 [facility] - Objective Vital Signs: Vital Signs Temperature 98.2 F 08/02/18 08:00 Pulse Rate 70 08/02/18 08:00 Respiratory Rate 18 08/02/18 08:00 Blood Pressure 119/51 L 08/02/18 08:00 O2 Sat by Pulse Oximetry (%) 95 08/02/18 11:00 Constitutional: Yes: No Distress, Calm, Obese Cardiovascular: Yes: S1, S2 Respiratory: Yes: Regular, CTA Bilaterally Gastrointestinal: Yes: Normal Bowel Sounds, Soft Musculoskeletal: Yes: WNL Extremities: Yes: Other Neurological: Yes: Alert, Oriented Psychiatric: Yes: Alert, Oriented Labs: CBC, BMP 08/02/18 06:00 08/02/18 06:00 INR, PTT INR 1.55 (0.83-1.09) H 08/02/18 06:00 Assessment/Plan Problem List - Problems (1) Acute kidney injury superimposed on CKD Code(s): N17.9 - ACUTE KIDNEY FAILURE, UNSPECIFIED; N18.9 - CHRONIC KIDNEY DISEASE, UNSPECIFIED (2) A-fib Code(s): I48.91 - UNSPECIFIED ATRIAL FIBRILLATION Qualifiers: Atrial fibrillation type: chronic Qualified Code(s): I48.2 - Chronic atrial fibrillation (3) Toxic metabolic encephalopathy Code(s): G92 - TOXIC ENCEPHALOPATHY (4) Diarrhea Code(s): R19.7 - DIARRHEA, UNSPECIFIED (5) Cellulitis Code(s): L03.90 - CELLULITIS, UNSPECIFIED Qualifiers: Site of cellulitis: extremity Site of cellulitis of extremity: lower extremity Laterality: unspecified laterality Qualified Code(s): L03.119 - Cellulitis of unspecified part of limb (6) HTN (hypertension) Code(s): I10 - ESSENTIAL (PRIMARY) HYPERTENSION (7) Hyperkalemia Code(s): E87.5 - HYPERKALEMIA (8) Lymphedema Code(s): I89.0 - LYMPHEDEMA, NOT ELSEWHERE CLASSIFIED (9) T2DM (type 2 diabetes mellitus) Code(s): E11.9 - TYPE 2 DIABETES MELLITUS WITHOUT COMPLICATIONS Qualifiers: Diabetes mellitus complication status: with neurologic complications (10) UTI (urinary tract infection) Code(s): N39.0 - URINARY TRACT INFECTION, SITE NOT SPECIFIED Qualifiers: Urinary tract infection type: acute cystitis Hematuria presence: without hematuria Qualified Code(s): N30.00 - Acute cystitis without hematuria (11) CML (chronic myelocytic leukemia) Code(s): C92.10 - CHRONIC MYELOID LEUK, BCR/ABL-POSITIVE, NOT ACHIEVE REMIS (12) Hypothyroid Code(s): E03.9 - HYPOTHYROIDISM, UNSPECIFIED (13) COPD (chronic obstructive pulmonary disease) Code(s): J44.9 - CHRONIC OBSTRUCTIVE PULMONARY DISEASE, UNSPECIFIED (14) Supratherapeutic INR Code(s): R79.1 - ABNORMAL COAGULATION PROFILE (15) Groin rash Code(s): R21 - RASH AND OTHER NONSPECIFIC SKIN ERUPTION bacteremia plan continue to monitor off of abx rest as per the team
[2018-08-02] MEDS: ACETAMINOPHEN 325 MG TABLET (FP) PO PRN (14:41)
--- NOTE | 2018-08-02 14:48 | PN ---
Progress Note, Physician Chief Complaint: Ms Hernandez says she is feeling fine. No cp, sob, n/v. Says her legs feel much better. - Current Medication List Current Medications: Active Medications Acetaminophen (Tylenol -) 650 mg PO Q6H PRN PRN Reason: PAIN LEVEL 1 - 3 Last Admin: 08/02/18 14:41 Dose: 650 mg Al Hydroxide/Mg Hydroxide (Mylanta Oral Suspension -) 30 ml PO Q6H PRN PRN Reason: heartburn Last Admin: 07/31/18 17:17 Dose: 30 ml Albuterol Sulfate (Ventolin Hfa Inhaler -) 2 puff IH Q8H PRN PRN Reason: SHORTNESS OF BREATH Albuterol/Ipratropium (Duoneb -) 1 amp NEB Q6H PRN PRN Reason: SHORTNESS OF BREATH Ascorbic Acid (Vitamin C -) 500 mg PO DAILY [facility] Last Admin: 08/02/18 10:52 Dose: 500 mg Diltiazem HCl (Cardizem Cd -) 120 mg PO DAILY [facility] Last Admin: 08/02/18 10:52 Dose: 120 mg Gabapentin (Neurontin -) 100 mg PO TID [facility] Last Admin: 08/02/18 14:36 Dose: 100 mg Insulin Aspart (Novolog Vial Sliding Scale -) 1 vial SQ ACHS [facility]; Protocol Last Admin: 08/02/18 11:35 Dose: Not Given Lactic Acid (Lac-Hydrin 12) 1 applic TP DAILY [facility] Last Admin: 08/02/18 10:53 Dose: 1 applic Lactobacillus Acidophilus (Bacid -) 1 tab PO TID [facility] Last Admin: 08/02/18 14:36 Dose: 1 tab Levothyroxine Sodium (Synthroid -) 25 mcg PO DAILY@0700 [facility] Last Admin: 08/02/18 06:31 Dose: 25 mcg Multivitamins (Total B With C -) 1 each PO DAILY [facility] Last Admin: 08/02/18 10:52 Dose: 1 each Nystatin (Mycostatin Cream -) 1 applic TP Q6HPO [facility] Last Admin: 08/02/18 14:35 Dose: 1 applic Oxycodone HCl (Roxicodone -) 10 mg PO Q6H PRN PRN Reason: PAIN LEVEL 6-10 Last Admin: 08/02/18 06:31 Dose: 10 mg Pantoprazole Sodium (Protonix -) 40 mg PO DAILY [facility] Last Admin: 08/02/18 10:52 Dose: 40 mg Warfarin Sodium (Coumadin -) 10 mg PO DAILY@1800 [facility] - Objective Vital Signs: Vital Signs Temperature 36.8 C 08/02/18 08:00 Pulse Rate 70 08/02/18 08:00 Respiratory Rate 18 08/02/18 08:00 Blood Pressure 119/51 L 08/02/18 08:00 O2 Sat by Pulse Oximetry (%) 95 08/02/18 11:00 Constitutional: Yes: No Distress, Calm, Obese Cardiovascular: Yes: Regular Rate and Rhythm. No: Gallop, Murmur, Rub Respiratory: Yes: Regular, CTA Bilaterally. No: Rales, Rhonchi, Wheezes Gastrointestinal: Yes: Normal Bowel Sounds, Soft. No: Distention, Tenderness Extremities: Yes: Erythema Edema: Yes Edema: LLE: 2+, RLE: 2+ Labs: CBC, BMP 08/02/18 06:00 08/02/18 06:00 INR, PTT INR 1.55 (0.83-1.09) H 08/02/18 06:00 Problem List - Problems (1) Acute kidney injury superimposed on CKD Code(s): N17.9 - ACUTE KIDNEY FAILURE, UNSPECIFIED; N18.9 - CHRONIC KIDNEY DISEASE, UNSPECIFIED (2) Toxic metabolic encephalopathy Code(s): G92 - TOXIC ENCEPHALOPATHY (3) Supratherapeutic INR Code(s): R79.1 - ABNORMAL COAGULATION PROFILE (4) Diarrhea Code(s): R19.7 - DIARRHEA, UNSPECIFIED (5) Groin rash Code(s): R21 - RASH AND OTHER NONSPECIFIC SKIN ERUPTION (6) A-fib Code(s): I48.91 - UNSPECIFIED ATRIAL FIBRILLATION Qualifiers: Atrial fibrillation type: chronic Qualified Code(s): I48.2 - Chronic atrial fibrillation (7) COPD (chronic obstructive pulmonary disease) Code(s): J44.9 - CHRONIC OBSTRUCTIVE PULMONARY DISEASE, UNSPECIFIED (8) Chronic anemia Code(s): D64.9 - ANEMIA, UNSPECIFIED (9) Diabetic neuropathy Code(s): E11.40 - TYPE 2 DIABETES MELLITUS WITH DIABETIC NEUROPATHY, UNSP (10) HTN (hypertension) Code(s): I10 - ESSENTIAL (PRIMARY) HYPERTENSION (11) T2DM (type 2 diabetes mellitus) Code(s): E11.9 - TYPE 2 DIABETES MELLITUS WITHOUT COMPLICATIONS Qualifiers: Diabetes mellitus complication status: with neurologic complications (12) Hypothyroid Code(s): E03.9 - HYPOTHYROIDISM, UNSPECIFIED Assessment/Plan (1) Acute kidney injury superimposed on CKD Assessment/Plan: -case d/w Dr Sanchez -at baseline -restart torsemide -will discharge on 20mg daily Code(s): N17.9 - ACUTE KIDNEY FAILURE, UNSPECIFIED; N18.9 - CHRONIC KIDNEY DISEASE, UNSPECIFIED (2) Toxic metabolic encephalopathy Assessment/Plan: -secondary to ASA on CKD -resolved Code(s): G92 - TOXIC ENCEPHALOPATHY (3) Supratherapeutic INR Assessment/Plan: -now subtherapeutic -increase coumadin to 10mg Code(s): R79.1 - ABNORMAL COAGULATION PROFILE (4) Diarrhea Assessment/Plan: -resolved Code(s): R19.7 - DIARRHEA, UNSPECIFIED (5) Groin rash Assessment/Plan: -continue nystatin cream Code(s): R21 - RASH AND OTHER NONSPECIFIC SKIN ERUPTION (6) A-fib Assessment/Plan: -sounds sinus rhythm on exam -continue cardizem -coumadin restarted, increase as above Code(s): I48.91 - UNSPECIFIED ATRIAL FIBRILLATION Qualifiers: Atrial fibrillation type: chronic Qualified Code(s): I48.2 - Chronic atrial fibrillation (7) COPD (chronic obstructive pulmonary disease) Assessment/Plan: -not in exacerbation Code(s): J44.9 - CHRONIC OBSTRUCTIVE PULMONARY DISEASE, UNSPECIFIED (8) Chronic anemia Assessment/Plan: -monitor Code(s): D64.9 - ANEMIA, UNSPECIFIED (9) Diabetic neuropathy Assessment/Plan: -continue oxycodone and neurontin Code(s): E11.40 - TYPE 2 DIABETES MELLITUS WITH DIABETIC NEUROPATHY, UNSP (10) HTN (hypertension) Assessment/Plan: -well controlled Code(s): I10 - ESSENTIAL (PRIMARY) HYPERTENSION (11) T2DM (type 2 diabetes mellitus) Assessment/Plan: -diabetic diet -continue SSI Code(s): E11.9 - TYPE 2 DIABETES MELLITUS WITHOUT COMPLICATIONS Qualifiers: Diabetes mellitus complication status: with neurologic complications (12) Hypothyroid Assessment/Plan: -continue statin Code(s): E03.9 - HYPOTHYROIDISM, UNSPECIFIED
--- NOTE | 2018-08-02 15:06 | PN ---
Progress Note, Physician History of Present Illness: Pt seen and examined at bedside. She is awake and alert. SHe denies shortness of breath. - Current Medication List Current Medications: Active Medications Acetaminophen (Tylenol -) 650 mg PO Q6H PRN PRN Reason: PAIN LEVEL 1 - 3 Last Admin: 08/02/18 14:41 Dose: 650 mg Al Hydroxide/Mg Hydroxide (Mylanta Oral Suspension -) 30 ml PO Q6H PRN PRN Reason: heartburn Last Admin: 07/31/18 17:17 Dose: 30 ml Albuterol Sulfate (Ventolin Hfa Inhaler -) 2 puff IH Q8H PRN PRN Reason: SHORTNESS OF BREATH Albuterol/Ipratropium (Duoneb -) 1 amp NEB Q6H PRN PRN Reason: SHORTNESS OF BREATH Ascorbic Acid (Vitamin C -) 500 mg PO DAILY [facility] Last Admin: 08/02/18 10:52 Dose: 500 mg Diltiazem HCl (Cardizem Cd -) 120 mg PO DAILY [facility] Last Admin: 08/02/18 10:52 Dose: 120 mg Gabapentin (Neurontin -) 100 mg PO TID [facility] Last Admin: 08/02/18 14:36 Dose: 100 mg Insulin Aspart (Novolog Vial Sliding Scale -) 1 vial SQ ACHS [facility]; Protocol Last Admin: 08/02/18 11:35 Dose: Not Given Lactic Acid (Lac-Hydrin 12) 1 applic TP DAILY [facility] Last Admin: 08/02/18 10:53 Dose: 1 applic Lactobacillus Acidophilus (Bacid -) 1 tab PO TID [facility] Last Admin: 08/02/18 14:36 Dose: 1 tab Levothyroxine Sodium (Synthroid -) 25 mcg PO DAILY@0700 [facility] Last Admin: 08/02/18 06:31 Dose: 25 mcg Multivitamins (Total B With C -) 1 each PO DAILY [facility] Last Admin: 08/02/18 10:52 Dose: 1 each Nystatin (Mycostatin Cream -) 1 applic TP Q6HPO [facility] Last Admin: 08/02/18 14:35 Dose: 1 applic Oxycodone HCl (Roxicodone -) 10 mg PO Q6H PRN PRN Reason: PAIN LEVEL 6-10 Last Admin: 08/02/18 06:31 Dose: 10 mg Pantoprazole Sodium (Protonix -) 40 mg PO DAILY [facility] Last Admin: 08/02/18 10:52 Dose: 40 mg Warfarin Sodium (Coumadin -) 10 mg PO DAILY@1800 [facility] - Objective Vital Signs: Vital Signs Temperature 98.1 F 08/02/18 13:54 Pulse Rate 72 08/02/18 13:54 Respiratory Rate 16 08/02/18 13:54 Blood Pressure 109/51 L 08/02/18 13:54 O2 Sat by Pulse Oximetry (%) 95 08/02/18 11:00 Constitutional: Yes: Calm Eyes: Yes: Conjunctiva Clear HENT: Yes: Atraumatic Cardiovascular: Yes: S1, S2 Respiratory: Yes: CTA Bilaterally Gastrointestinal: Yes: Normal Bowel Sounds, Soft Genitourinary: Yes: WNL Edema: Yes Edema: LLE: 2+, RLE: 2+ Neurological: Yes: Oriented Psychiatric: Yes: Oriented Labs: CBC, BMP 08/02/18 06:00 08/02/18 06:00 INR, PTT INR 1.55 (0.83-1.09) H 08/02/18 06:00 Problem List - Problems (1) ASA (acute kidney injury) Code(s): N17.9 - ACUTE KIDNEY FAILURE, UNSPECIFIED (2) Hyperkalemia Code(s): E87.5 - HYPERKALEMIA Assessment/Plan Current Medications Generic Name Dose Route Start Last Admin Trade Name Santhosh PRN Reason Stop Dose Admin Acetaminophen 650 mg 07/30/18 14:19 08/02/18 14:41 Tylenol - PO 650 mg Q6H PRN Administration PAIN LEVEL 1 - 3 Al Hydroxide/Mg Hydroxide 30 ml 07/30/18 14:19 07/31/18 17:17 Mylanta Oral Suspension - PO 30 ml Q6H PRN Administration heartburn Albuterol Sulfate 2 puff 07/30/18 14:19 Ventolin Hfa Inhaler - IH Q8H PRN SHORTNESS OF BREATH Albuterol/Ipratropium 1 amp 07/30/18 14:25 Duoneb - NEB Q6H PRN SHORTNESS OF BREATH Ascorbic Acid 500 mg 07/31/18 10:00 08/02/18 10:52 Vitamin C - PO 500 mg DAILY [facility] Administration Diltiazem HCl 120 mg 07/31/18 10:00 08/02/18 10:52 Cardizem Cd - PO 120 mg DAILY [facility] Administration Gabapentin 100 mg 07/30/18 14:45 08/02/18 14:36 Neurontin - PO 100 mg TID [facility] Administration Insulin Aspart 1 vial 07/30/18 07:00 08/02/18 11:35 Novolog Vial Sliding Scale - SQ Not Given ACHS [facility] Protocol Lactic Acid 1 applic 07/31/18 10:00 08/02/18 10:53 Lac-Hydrin 12 TP 1 applic DAILY [facility] Administration Lactobacillus Acidophilus 1 tab 07/30/18 22:00 08/02/18 14:36 Bacid - PO 1 tab TID [facility] Administration Levothyroxine Sodium 25 mcg 07/31/18 07:00 08/02/18 06:31 Synthroid - PO 25 mcg DAILY@0700 JOVITA Administration Multivitamins 1 each 07/31/18 10:00 08/02/18 10:52 Total B With C - PO 1 each DAILY JOVITA Administration Nystatin 1 applic 07/29/18 22:45 08/02/18 14:35 Mycostatin Cream - TP 1 applic Q6HPO JOVITA Administration Oxycodone HCl 10 mg 08/02/18 00:24 08/02/18 06:31 Roxicodone - PO 10 mg Q6H PRN Administration PAIN LEVEL 6-10 Pantoprazole Sodium 40 mg 07/31/18 10:00 08/02/18 10:52 Protonix - PO 40 mg DAILY JOVITA Administration Warfarin Sodium 10 mg 08/02/18 12:22 Coumadin - PO DAILY@1800 JOVITA Impression 1. ASA 2. anemia 3. hyperkalemia 4. CML 5. hypothyroidism 6. HTN 7. chol 8. CHF 9. COPD 10. a-fib Plan - renal function is improving - will give a dose of torsemide and resume tomorrow - discussed with medical team - monitor volume status - repeat labs in am - pt has significant lower ext edema - will follow Dr Sanchez
[2018-08-02] MEDS: TORSEMIDE 20 MG TABLET (FP) PO SCH (16:19)
[2018-08-02] MEDS: WARFARIN NA 5 MG TABLET (UD) PO SCH (17:26)
[2018-08-03] MEDS ORDERED: PT OWN MED DRAWER 7, Y5N ONE ×2 (00:12→10:16)
[2018-08-03] MEDS: NYSTATIN 100,000 UNIT/GM TOPICAL CREAM 15 GM TUBE TP SCH ×4 (00:15→18:31)
[2018-08-03] MEDS: LEVOTHYROXINE NA 25 MCG TABLET (FP) PO SCH (06:21)
[2018-08-03] MEDS: LACTOBACILLUS ACIDOPHILUS 1 TABLET PO SCH ×2 (06:21→14:03)
[2018-08-03] MEDS: INSULIN SLIDING SCALE (NOVOLOG) 1 VIAL SQ SCH ×3 (06:21→16:38)
[2018-08-03] MEDS: GABAPENTIN 100 MG CAPSULE (FP) PO SCH ×2 (06:21→14:03)
[2018-08-03] MEDS: oxyCODONE HCL 5 MG TABLET PO PRN ×3 (06:26→18:34)
[2018-08-03 06:54] LABS: BASO % 0.3 % (0-2.0); EOS % 9.2 % (0-4.5); HEMATOCRIT 21.7 % (32.4-45.2); LYMPH % 14.8 % (8-40); MCH 30.9 pg (25.7-33.7); MCHC 32.4 g/dl (32.0-36.0); MEAN CELL VOLUME 95.4 fl (80-96); MEAN PLT VOLUME 7.6 fl (7.5-11.1); MONO % 5.7 % (3.8-10.2); PLATELET COUNT 133 K/MM3 (134-434); RBC 2.27 M/mm3 (3.60-5.2); RDW 18.3 % (11.6-15.6); WHITE BLOOD COUNT 3.6 K/mm3 (4.0-10.0)
[2018-08-03 07:16] LABS: INR 1.91 (0.83-1.09); PROTHROMBIN TIME (PATIENT) 22.7 SEC (9.7-13.0)
[2018-08-03 07:18] LABS: ANION GAP 7 MMOL/L (8-16); BLOOD UREA NITROGEN 42 mg/dL (7-18); CALCIUM 7.5 mg/dL (8.5-10.1); CHLORIDE 106 mmol/L (98-107); CO2 24 mmol/L (21-32); CREATININE 1.9 mg/dL (0.55-1.3); GLUCOSE,RANDOM 118 mg/dL (74-106); MAGNESIUM 2.6 mg/dL (1.8-2.4); PHOSPHOROUS 4.8 mg/dL (2.5-4.9); POTASSIUM 4.5 mmol/L (3.5-5.1); SODIUM 136 mmol/L (136-145)
[2018-08-03] MEDS: ASCORBIC ACID 500 MG TABLET (FP) PO SCH (10:22)
[2018-08-03] MEDS: TORSEMIDE 20 MG TABLET (FP) PO SCH (10:22)
[2018-08-03] MEDS: PANTOPRAZOLE 40 MG TABLET (FP) PO SCH (10:22)
[2018-08-03] MEDS: VITAMIN B COMPLEX W/C COMBO TABLET (FP) PO SCH (10:22)
[2018-08-03] MEDS: AMMONIUM LACTATE 12% LOTION 225 GM BOTTLE TP SCH (10:23)
--- NOTE | 2018-08-03 11:15 | DS ---
Physical Examination Vital Signs: Vital Signs Temperature 36.7 C 08/03/18 09:00 Pulse Rate 75 08/03/18 09:00 Respiratory Rate 18 08/03/18 09:00 Blood Pressure 115/54 L 08/03/18 09:00 O2 Sat by Pulse Oximetry (%) 95 08/03/18 10:00 Constitutional: Yes: No Distress, Calm, Obese Cardiovascular: Yes: Regular Rate and Rhythm. No: Gallop, Murmur, Rub Respiratory: Yes: Regular, CTA Bilaterally. No: Rales, Rhonchi, Wheezes Gastrointestinal: Yes: Normal Bowel Sounds, Soft. No: Distention, Tenderness Extremities: Yes: Erythema (chronic) Edema: Yes Edema: LLE: 2+, RLE: 2+ Labs: CBC, BMP 08/03/18 05:50 08/03/18 05:50 Discharge Summary Reason For Visit: ACUTE KIDNEY INJURY,HYPERKALEMIA Current Active Problems Diarrhea (Acute) Groin rash (Acute) Supratherapeutic INR (Acute) Toxic metabolic encephalopathy (Acute) Hospital Course: (1) Acute kidney injury superimposed on CKD Code(s): N17.9 - ACUTE KIDNEY FAILURE, UNSPECIFIED; N18.9 - CHRONIC KIDNEY DISEASE, UNSPECIFIED (2) Toxic metabolic encephalopathy Code(s): G92 - TOXIC ENCEPHALOPATHY (3) Supratherapeutic INR Code(s): R79.1 - ABNORMAL COAGULATION PROFILE (4) Diarrhea Code(s): R19.7 - DIARRHEA, UNSPECIFIED (5) Groin rash Code(s): R21 - RASH AND OTHER NONSPECIFIC SKIN ERUPTION (6) A-fib Code(s): I48.91 - UNSPECIFIED ATRIAL FIBRILLATION Qualifiers: Atrial fibrillation type: chronic Qualified Code(s): I48.2 - Chronic atrial fibrillation (7) COPD (chronic obstructive pulmonary disease) Code(s): J44.9 - CHRONIC OBSTRUCTIVE PULMONARY DISEASE, UNSPECIFIED (8) Chronic anemia Code(s): D64.9 - ANEMIA, UNSPECIFIED (9) Diabetic neuropathy Code(s): E11.40 - TYPE 2 DIABETES MELLITUS WITH DIABETIC NEUROPATHY, UNSP (10) HTN (hypertension) Code(s): I10 - ESSENTIAL (PRIMARY) HYPERTENSION (11) T2DM (type 2 diabetes mellitus) Code(s): E11.9 - TYPE 2 DIABETES MELLITUS WITHOUT COMPLICATIONS Qualifiers: Diabetes mellitus complication status: with neurologic complications (12) Hypothyroid Code(s): E03.9 - HYPOTHYROIDISM, UNSPECIFIED Ms Hernandez is a very pleasant 67 year old female who came in with toxic metabolic encephalopathy secondary to ASA on CKD. She was taking torsemide 20mg bid as an outpatient, this has been her normal dose for years. However she feels that she was drinking less and became lethargic. Her torsemide was held and she was seen by nephrology. She was hydrated and improved. She was seen by ID, did not need antibiotics. Her mental status is now at baseline. Her IVF was stopped and her torsemide reintroduced secondary to leg swelling. Case d/w Dr Sanchez, recommended torsemide 20mg daily. Patient has history of anemia and her hemoglobin dropped to 7. She was transfused prior to discharge. She also had supratherapeutic INR, she was given vitamin K and her coumadin was held. It was restarted and should be monitored at [facility]. She is safe for discharge. 37 minutes spent in preparation of this discharge Condition: Stable - Instructions Diet, Activity, Other Instructions: resume previous diet and activity Referrals: Carlito Longo MD [Staff Physician] - Bryant Sanchez MD [Staff Physician] - Markell Pena MD [Staff Physician] - [facility]position: [facility] - Home Medications Comprehensive Discharge Medication List: Ambulatory Orders Albuterol Sulfate 2.5 mg IH Q8H PRN 07/18/18 Ammonium Lactate Lotion [Lac-Hydrin 12] 1 applic TP ASDIR 07/18/18 Ascorbic Acid [Vitamin C -] 500 mg PO DAILY 07/18/18 Gabapentin [Neurontin -] 100 mg PO Q8H 07/18/18 Ipratropium Amanda 0.2 mg IH Q8H PRN 07/18/18 L. Acidophilus/Bifid. Animalis [Probiotic 5 Billion Cell Cap] 1 each PO TID Oxycodone HCl 10 mg PO Q6H PRN 07/18/18 Polyethylene Glycol 3350 [Miralax 255 gm Btl -] 17 gm PO TID 07/18/18 Vitamin B Complex 1 tab PO DAILY 07/18/18 Warfarin Na [Coumadin -] 10 mg PO HS 07/18/18 Diltiazem Cd [Cardizem Cd -] 120 mg PO DAILY cap.cd.24h 07/23/18 Docusate Sodium [Colace -] 100 mg PO TID capsule 07/23/18 Levothyroxine [Synthroid -] 25 mcg PO DAILY@0700 tablet 07/23/18 Sennosides [Senna -] 1 tab PO BID tablet 07/23/18 Acetaminophen [Pain Relief] 650 mg PO Q6H PRN 07/29/18 Bisacodyl Suppository [Dulcolax Suppository -] 10 mg RC DAILY PRN 07/29/18 Insulin Lispro [Humalog Kwikpen U-100] 0 unit SQ ASDIR 07/29/18 Mag Hydrox/Al Hydrox/Simeth [Mylanta Oral Suspension -] 30 ml PO Q6H PRN Pantoprazole Sodium 40 mg PO DAILY 07/29/18 Vitamin B Complex 1 each PO DAILY 07/29/18 Insulin Sliding Scale [Novolog Vial Sliding Scale -] 1 vial SQ ACHS units 08/03 Nystatin Cream [Mycostatin Cream -] 1 applic TP Q6HPO applic 08/03/18 Torsemide [Demadex -] 20 mg PO DAILY tablet 08/03/18
--- NOTE | 2018-08-03 13:25 | PN ---
Progress Note, Physician - Current Medication List Current Medications: Active Medications Acetaminophen (Tylenol -) 650 mg PO Q6H PRN PRN Reason: PAIN LEVEL 1 - 3 Last Admin: 08/02/18 14:41 Dose: 650 mg Al Hydroxide/Mg Hydroxide (Mylanta Oral Suspension -) 30 ml PO Q6H PRN PRN Reason: heartburn Last Admin: 07/31/18 17:17 Dose: 30 ml Albuterol Sulfate (Ventolin Hfa Inhaler -) 2 puff IH Q8H PRN PRN Reason: SHORTNESS OF BREATH Albuterol/Ipratropium (Duoneb -) 1 amp NEB Q6H PRN PRN Reason: SHORTNESS OF BREATH Ascorbic Acid (Vitamin C -) 500 mg PO DAILY [facility] Last Admin: 08/03/18 10:22 Dose: 500 mg Diltiazem HCl (Cardizem Cd -) 120 mg PO DAILY [facility] Last Admin: 08/03/18 10:22 Dose: 120 mg Gabapentin (Neurontin -) 100 mg PO TID [facility] Last Admin: 08/03/18 06:21 Dose: 100 mg Insulin Aspart (Novolog Vial Sliding Scale -) 1 vial SQ [facility]; Protocol Last Admin: 08/03/18 11:47 Dose: 2 units Lactic Acid (Lac-Hydrin 12) 1 applic TP DAILY [facility] Last Admin: 08/03/18 10:23 Dose: 1 applic Lactobacillus Acidophilus (Bacid -) 1 tab PO TID [facility] Last Admin: 08/03/18 06:21 Dose: 1 tab Levothyroxine Sodium (Synthroid -) 25 mcg PO DAILY@0700 [facility] Last Admin: 08/03/18 06:21 Dose: 25 mcg Multivitamins (Total B With C -) 1 each PO DAILY [facility] Last Admin: 08/03/18 10:22 Dose: 1 each Nystatin (Mycostatin Cream -) 1 applic TP Q6HPO [facility] Last Admin: 08/03/18 11:43 Dose: 1 applic Oxycodone HCl (Roxicodone -) 10 mg PO Q6H PRN PRN Reason: PAIN LEVEL 6-10 Last Admin: 08/03/18 11:39 Dose: 10 mg Pantoprazole Sodium (Protonix -) 40 mg PO DAILY [facility] Last Admin: 08/03/18 10:22 Dose: 40 mg Torsemide (Demadex -) 20 mg PO DAILY [facility] Last Admin: 08/03/18 10:22 Dose: 20 mg Warfarin Sodium (Coumadin -) 10 mg PO DAILY@1800 [facility] Last Admin: 08/02/18 17:26 Dose: 10 mg - Objective Vital Signs: Vital Signs Temperature 98.0 F 08/03/18 09:00 Pulse Rate 75 08/03/18 09:00 Respiratory Rate 18 08/03/18 09:00 Blood Pressure 115/54 L 08/03/18 09:00 O2 Sat by Pulse Oximetry (%) 95 08/03/18 10:00 Labs: CBC, BMP 08/03/18 05:50 08/03/18 05:50 INR, PTT INR 1.91 (0.83-1.09) H 08/03/18 05:50
--- NOTE | 2018-08-03 15:05 | PN ---
Progress Note, Physician History of Present Illness: Pt seen and examined at bedside. She is awake and alert. She denies shortness of breath. - Current Medication List Current Medications: Active Medications Acetaminophen (Tylenol -) 650 mg PO Q6H PRN PRN Reason: PAIN LEVEL 1 - 3 Last Admin: 08/02/18 14:41 Dose: 650 mg Al Hydroxide/Mg Hydroxide (Mylanta Oral Suspension -) 30 ml PO Q6H PRN PRN Reason: heartburn Last Admin: 07/31/18 17:17 Dose: 30 ml Albuterol Sulfate (Ventolin Hfa Inhaler -) 2 puff IH Q8H PRN PRN Reason: SHORTNESS OF BREATH Albuterol/Ipratropium (Duoneb -) 1 amp NEB Q6H PRN PRN Reason: SHORTNESS OF BREATH Ascorbic Acid (Vitamin C -) 500 mg PO DAILY [facility] Last Admin: 08/03/18 10:22 Dose: 500 mg Diltiazem HCl (Cardizem Cd -) 120 mg PO DAILY [facility] Last Admin: 08/03/18 10:22 Dose: 120 mg Gabapentin (Neurontin -) 100 mg PO TID [facility] Last Admin: 08/03/18 14:03 Dose: 100 mg Insulin Aspart (Novolog Vial Sliding Scale -) 1 vial SQ ACHS [facility]; Protocol Last Admin: 08/03/18 11:47 Dose: 2 units Lactic Acid (Lac-Hydrin 12) 1 applic TP DAILY [facility] Last Admin: 08/03/18 10:23 Dose: 1 applic Lactobacillus Acidophilus (Bacid -) 1 tab PO TID [facility] Last Admin: 08/03/18 14:03 Dose: 1 tab Levothyroxine Sodium (Synthroid -) 25 mcg PO DAILY@0700 [facility] Last Admin: 08/03/18 06:21 Dose: 25 mcg Multivitamins (Total B With C -) 1 each PO DAILY [facility] Last Admin: 08/03/18 10:22 Dose: 1 each Nystatin (Mycostatin Cream -) 1 applic TP Q6HPO [facility] Last Admin: 08/03/18 11:43 Dose: 1 applic Oxycodone HCl (Roxicodone -) 10 mg PO Q6H PRN PRN Reason: PAIN LEVEL 6-10 Last Admin: 08/03/18 11:39 Dose: 10 mg Pantoprazole Sodium (Protonix -) 40 mg PO DAILY [facility] Last Admin: 08/03/18 10:22 Dose: 40 mg Torsemide (Demadex -) 20 mg PO DAILY [facility] Last Admin: 08/03/18 10:22 Dose: 20 mg Warfarin Sodium (Coumadin -) 10 mg PO DAILY@1800 [facility] Last Admin: 08/02/18 17:26 Dose: 10 mg - Objective Vital Signs: Vital Signs Temperature 98.0 F 08/03/18 09:00 Pulse Rate 75 08/03/18 09:00 Respiratory Rate 18 08/03/18 09:00 Blood Pressure 115/54 L 08/03/18 09:00 O2 Sat by Pulse Oximetry (%) 95 08/03/18 10:00 Constitutional: Yes: Calm Eyes: Yes: Conjunctiva Clear HENT: Yes: Atraumatic Neck: Yes: Supple Cardiovascular: Yes: S1, S2 Respiratory: Yes: CTA Bilaterally Gastrointestinal: Yes: Soft Genitourinary: Yes: Chambers Present Edema: Yes Edema: LLE: 2+, RLE: 2+ Neurological: Yes: Oriented Psychiatric: Yes: Oriented Labs: CBC, BMP 08/03/18 05:50 08/03/18 05:50 INR, PTT INR 1.91 (0.83-1.09) H 08/03/18 05:50 Problem List - Problems (1) ASA (acute kidney injury) Code(s): N17.9 - ACUTE KIDNEY FAILURE, UNSPECIFIED (2) Hyperkalemia Code(s): E87.5 - HYPERKALEMIA Assessment/Plan Current Medications Generic Name Dose Route Start Last Admin Trade Name Freq PRN Reason Stop Dose Admin Acetaminophen 650 mg 07/30/18 14:19 08/02/18 14:41 Tylenol - PO 650 mg Q6H PRN Administration PAIN LEVEL 1 - 3 Al Hydroxide/Mg Hydroxide 30 ml 07/30/18 14:19 07/31/18 17:17 Mylanta Oral Suspension - PO 30 ml Q6H PRN Administration heartburn Albuterol Sulfate 2 puff 07/30/18 14:19 Ventolin Hfa Inhaler - IH Q8H PRN SHORTNESS OF BREATH Albuterol/Ipratropium 1 amp 07/30/18 14:25 Duoneb - NEB Q6H PRN SHORTNESS OF BREATH Ascorbic Acid 500 mg 07/31/18 10:00 08/03/18 10:22 Vitamin C - PO 500 mg DAILY [facility] Administration Diltiazem HCl 120 mg 07/31/18 10:00 08/03/18 10:22 Cardizem Cd - PO 120 mg DAILY [facility] Administration Gabapentin 100 mg 07/30/18 14:45 08/03/18 14:03 Neurontin - PO 100 mg TID [facility] Administration Insulin Aspart 1 vial 07/30/18 07:00 08/03/18 11:47 Novolog Vial Sliding Scale - SQ 2 units ACHS [facility] Administration Protocol Lactic Acid 1 applic 07/31/18 10:00 08/03/18 10:23 Lac-Hydrin 12 TP 1 applic DAILY [facility] Administration Lactobacillus Acidophilus 1 tab 07/30/18 22:00 08/03/18 14:03 Bacid - PO 1 tab TID [facility] Administration Levothyroxine Sodium 25 mcg 07/31/18 07:00 08/03/18 06:21 Synthroid - PO 25 mcg DAILY@0700 [facility] Administration Multivitamins 1 each 07/31/18 10:00 08/03/18 10:22 Total B With C - PO 1 each DAILY [facility] Administration Nystatin 1 applic 07/29/18 22:45 08/03/18 11:43 Mycostatin Cream - TP 1 applic Q6HPO [facility] Administration Oxycodone HCl 10 mg 08/02/18 00:24 08/03/18 11:39 Roxicodone - PO 10 mg Q6H PRN Administration PAIN LEVEL 6-10 Pantoprazole Sodium 40 mg 07/31/18 10:00 08/03/18 10:22 Protonix - PO 40 mg DAILY [facility] Administration Torsemide 20 mg 08/02/18 15:15 08/03/18 10:22 Demadex - PO 20 mg DAILY [facility] Administration Warfarin Sodium 10 mg 08/02/18 12:22 08/02/18 17:26 Coumadin - PO 10 mg DAILY@1800 [facility] Administration Impression 1. ASA 2. anemia 3. hyperkalemia 4. CML 5. hypothyroidism 6. HTN 7. chol 8. CHF 9. COPD 10. a-fib Plan - d/c chambers - cont torsemide - monitor renal function, can see as outpt - will need to monitor labs and volume status in rehab - discussed with medical team - will follow Dr Sanchez
[2018-08-03] MEDS: WARFARIN NA 5 MG TABLET (UD) PO SCH (18:31)
[2018-08-03 20:12] VITALS: BP 123/53; PULSE 60; TEMP 98
== END 2018-08-03 20:29 | DRG 682 ==
LOC: JER 15:23 → JERBED 21:09 → J4S 07-30 16:34
PROVIDERS: ADMIT Internal Medicine; ATTEND Internal Medicine
DX: N17.9 Acute kidney failure, unspecified (principal); G92 Toxic encephalopathy; I48.91 Unspecified atrial fibrillation; E11.22 Type 2 diabetes mellitus with diabetic chronic kidney disease; I12.9 Hypertensive chronic kidney disease with stage 1 through stage 4 chronic kidney disease, or unspecified chronic kidney disease; N18.9 Chronic kidney disease, unspecified; E87.5 Hyperkalemia; J44.9 Chronic obstructive pulmonary disease, unspecified; K59.03 Drug induced constipation; E03.9 Hypothyroidism, unspecified; E11.42 Type 2 diabetes mellitus with diabetic polyneuropathy; E88.09 Other disorders of plasma-protein metabolism, not elsewhere classified; B37.2 Candidiasis of skin and nail; E11.319 Type 2 diabetes mellitus with unspecified diabetic retinopathy without macular edema; I27.20 Pulmonary hypertension, unspecified; Z85.6 Personal history of leukemia; Z79.01 Long term (current) use of anticoagulants; Z86.718 Personal history of other venous thrombosis and embolism; E03.0 Congenital hypothyroidism with diffuse goiter; Z79.84 Long term (current) use of oral hypoglycemic drugs; Z79.4 Long term (current) use of insulin; D64.9 Anemia, unspecified; K76.0 Fatty (change of) liver, not elsewhere classified; F32.9 Major depressive disorder, single episode, unspecified; Z87.891 Personal history of nicotine dependence; M54.5 Low back pain; E66.9 Obesity, unspecified; Z68.34 Body mass index [BMI] 34.0-34.9, adult; R21 Rash and other nonspecific skin eruption
CPT/HCPCS: 36415; 36430; 70450-TC; 71045-TC-FY; 76775-TC; 76856-TC; 80048; 80053; 81003; 81015; 82140; 82436; 82550; 82570; 82803; 82962; 83605; 83735; 84100; 84133; 84300; 84484; 85025; 85027; 85610; 85730; 86850; 86900; 86901; 86922; 87040; 87077; 87086; 87186; 93005; 93010; 97161-GP; 99284-25; J7030; P9038; P9058

== ENCOUNTER 2018-11-14 17:43 | Observation (INO) | payer OTHER, MEDICARE ==
[2018-11-14 17:59] VITALS: BMI 24.3
--- NOTE | 2018-11-14 20:06 | PDOC ---
Attending Attestation - HPI HPI: 11/14/18 20:53 Patient is a 68 year female with a significant past medical history of HTN, HLD , DM, afib (on coumadin) DVT in the past, CML, and COPD, who was sent by [facility] staff to the ED for abnormal lab results. Patient reports experiencing chronic nose bleed that began x2 days ago. She reports having her blood work done at the shelter earlier today with the results showing her hemoglobin levels to be 6.2, prompting the [facility] staff to have her sent to the ED for further evaluation and blood transfusion. Patient's nose bleed has currently stopped while in the ED. Denies chest pain, Sob. Denies nausea, vomiting. Denies contact with sick individuals, out of state travelling. Denies fevers, chills. Denies dizziness, lightheadedness. Denies any other symptoms. Allergies: Metronidazole, metoprolol. Social history: From [facility]. No smoking. No alcohol. No illicit drugs. Surgical history: None PMD: Dr. Longo - Physicial Exam PE: 11/14/18 20:53 Agree with residents Physical Exam. <Ron Lambert - Last Filed: 11/14/18 20:53> - Resident Resident Name: Arthur Flynn - ED Attending Attestation I have performed the following: I have examined & evaluated the patient, The case was reviewed & discussed with the resident, I agree w/resident's findings & plan - Medical Decision Making 11/14/18 21:19 68-year-old female sent for possible transfusion with low hemoglobin Hemoglobin confirmed here at 6.9 Plan for observation and transfusion which has been initiated in the emergency department Patient otherwise asymptomatic at this time <Jocelin Tolbert - Last Filed: 11/14/18 21:19>
[2018-11-14 20:43] LABS: INR 3.08 (0.83-1.09); PROTHROMBIN TIME (PATIENT) 36.7 SEC (9.7-13.0)
[2018-11-14 20:44] LABS: BASO % 0.3 % (0-2.0); HEMATOCRIT 19.4 % (32.4-45.2); LYMPH % 31.8 % (8-40); MCHC 35.7 g/dl (32.0-36.0); MEAN CELL VOLUME 98.1 fl (80-96); MEAN PLT VOLUME 7.4 fl (7.5-11.1); MONO % 4.2 % (3.8-10.2); NEUT % 58.7 % (42.8-82.8); PLATELET COUNT 90 K/MM3 (134-434); RBC 1.98 M/mm3 (3.60-5.2); RDW 20.2 % (11.6-15.6); WHITE BLOOD COUNT 2.9 K/mm3 (4.0-10.0)
[2018-11-14 20:45] LABS: HEMOGLOBIN 6.9 GM/dL (10.7-15.3)
--- NOTE | 2018-11-14 21:00 | PDOC ---
History of Present Illness - General Chief Complaint: Blood Transfusion Stated Complaint: ABNORMAL LABS Time Seen by Provider: 11/14/18 19:59 History Source: Patient Exam Limitations: No Limitations - History of Present Illness Initial Comments: 11/14/18 20:55 Patient is a 68F with history of afib (on coumadin), CML, pulmonary htn, htn, dm here today complaining of abnormal lab results. Patient has a hemoglobin of 6.2. Patient states that she's had a nosebleed for the past 1.5 days, and was getting her coumadin even when she was having problems with nosebleeds. Currently not bleeding. Patient denies chest pain, fevers, chills, nausea, vomiting, and shortness of breath. Patient states that she is frustrated with a hernia in her upper abdomen, but reports this is a chronic issue that hasn't acutely worsened. Past History - Past Medical History Allergies/Adverse Reactions: Allergies Allergy/AdvReac Type Severity Reaction Status Date / Time metronidazole [From Flagyl] Allergy Severe Rash Verified 11/14/18 17:55 metoprolol Allergy Intermediate Rash Verified 11/14/18 17:55 Home Medications: Ambulatory Orders Albuterol Sulfate 2.5 mg IH Q8H PRN 07/18/18 Ammonium Lactate Lotion [Lac-Hydrin 12] 1 applic TP ASDIR 07/18/18 Ascorbic Acid [Vitamin C -] 500 mg PO DAILY 07/18/18 Gabapentin [Neurontin -] 100 mg PO Q8H 07/18/18 Ipratropium [place] 0.2 mg IH Q8H PRN 07/18/18 L. Acidophilus/Bifid. Animalis [Probiotic 5 Billion Cell Cap] 1 each PO TID Oxycodone HCl 10 mg PO Q6H PRN 07/18/18 Polyethylene Glycol 3350 [Miralax 255 gm Btl -] 17 gm PO TID 07/18/18 Vitamin B Complex 1 tab PO DAILY 07/18/18 Warfarin Na [Coumadin -] 10 mg PO HS 07/18/18 Diltiazem Cd [Cardizem Cd -] 120 mg PO DAILY cap.cd.24h 07/23/18 Docusate Sodium [Colace -] 100 mg PO TID capsule 07/23/18 Levothyroxine [Synthroid -] 25 mcg PO DAILY@0700 tablet 07/23/18 Acetaminophen [Pain Relief] 650 mg PO Q6H PRN 07/29/18 Bisacodyl Suppository [Dulcolax Suppository -] 10 mg RC DAILY PRN 07/29/18 Insulin Lispro [Humalog Kwikpen U-100] 0 unit SQ ASDIR 07/29/18 Mag Hydrox/Al Hydrox/Simeth [Mylanta Oral Suspension -] 30 ml PO Q6H PRN Pantoprazole Sodium 40 mg PO DAILY 07/29/18 Nystatin Cream [Mycostatin Cream -] 1 applic TP Q6HPO applic 08/03/18 Torsemide [Demadex -] 20 mg PO DAILY tablet 08/03/18 Aa/Hydrolyzed Collagen, Whey [Lps 15-30 Liquid] 30 ml PO DAILY 11/14/18 Folic Acid 1 mg PO DAILY 11/14/18 Hydroxyzine HCl 25 mg PO TID 11/14/18 Nilotinib HCl [Tasigna] 300 mg PO BID 11/14/18 Polyvinyl Alcohol [Artificial Tears] 1 drop OU QID 11/14/18 Pyridoxine HCl (B-6) [Vitamin B6] 100 mg PO DAILY 11/14/18 Sennosides [Senna Lax] 8.6 mg PO DAILY 11/14/18 Anemia: Yes Asthma: No Cancer: Yes (CML) Cardiac Disorders: Yes (A-FIB) CVA: No COPD: Yes CHF: No DVT: Yes Dementia: No Diabetes: Yes GI Disorders: No Disorders: Yes (uti) HTN: Yes Hypercholesterolemia: Yes Liver Disease: Yes (fatty liver) Psychiatric Problems: Yes (depression) Seizures: No Thyroid Disease: Yes - Surgical History Abdominal Surgery: Yes (hernia) Appendectomy: No Cardiac Surgery: No Cholecystectomy: Yes Lung Surgery: No Neurologic Surgery: No Orthopedic Surgery: No - Immunization History Immunization Up to Date: Yes - Suicide/Smoking/Psychosocial Hx Smoking Status: Yes Smoking History: Never smoked Have you smoked in the past 12 months: No Number of Cigarettes Smoked Daily: 0 If you are a former smoker, when did you quit?: 10/25/2013 Cigars Per Day: 0 'Breaking Loose' booklet given: 02/28/12 Hx Alcohol Use: No Drug/Substance Use Hx: No Substance Use Type: None Hx Substance Use Treatment: No Review of Systems - Review of Systems Comments:: 11/14/18 21:00 GENERAL/CONSTITUTIONAL: No fever or chills. No weakness. HEAD, EYES, EARS, NOSE AND THROAT: No change in vision. No sore throat. CARDIOVASCULAR: No chest pain or shortness of breath RESPIRATORY: No cough, wheezing, or hemoptysis. GASTROINTESTINAL: No nausea, vomiting, diarrhea or constipation. GENITOURINARY: No dysuria, frequency, or change in urination. MUSCULOSKELETAL: No joint or muscle swelling or pain. No neck or back pain. SKIN: No rash NEUROLOGIC: No headache, vertigo, loss of consciousness, or change in strength/ sensation. ENDOCRINE: No increased thirst. No abnormal weight change HEMATOLOGIC/LYMPHATIC: +anemia, no easy bleeding, no history of blood clots. ALLERGIC/IMMUNOLOGIC: No hives or skin allergy. *Physical Exam - Vital Signs Last Vital Signs Temp Pulse Resp BP Pulse Ox 98.3 F 82 16 145/53 L 95 11/14/18 17:57 11/14/18 17:57 11/14/18 17:57 11/14/18 17:57 11/14/18 17:57 - Physical Exam Comments: 11/14/18 21:01 GENERAL: Awake, alert, and fully oriented, in no acute distress HEAD: No signs of trauma, normocephalic, atraumatic EYES: PERRLA, EOMI, sclera anicteric, conjunctiva clear ENT: Auricles normal inspection, hearing grossly normal, nares patent, oropharynx clear without exudates. Moist mucosa NECK: Normal ROM, supple, no lymphadenopathy, JVD, or masses LUNGS: No distress, speaks full sentences, clear to auscultation bilaterally HEART: Regular rate and rhythm, normal S1 and S2, no murmurs, rubs or gallops, peripheral pulses normal and equal bilaterally. ABDOMEN: Soft, nontender, normoactive bowel sounds. No guarding, no rebound. No masses EXTREMITIES: Normal inspection, Normal range of motion, no edema. No clubbing or cyanosis. NEUROLOGICAL: Cranial nerves II through XII grossly intact. Normal speech, no focal sensorimotor deficits SKIN: Warm, Dry, normal turgor, no rashes or lesions noted. Moderate Sedation - Procedure Monitoring Vital Signs: Procedure Monitoring Vital Signs Temperature 98.3 F 11/14/18 17:57 Pulse Rate 82 11/14/18 17:57 Respiratory Rate 16 11/14/18 17:57 Blood Pressure 145/53 L 11/14/18 17:57 O2 Sat by Pulse Oximetry (%) 95 11/14/18 17:57 ED Treatment Course - LABORATORY CBC & Chemistry Diagram: 11/14/18 20:15 11/14/18 20:15 - ADDITIONAL ORDERS Additional order review: Laboratory Results 11/14/18 11/14/18 20:15 20:15 PT with INR 36.70 H INR 3.08 H Crossmatch See Detail 11/14/18 20:15 RBC 1.98 L MCV 98.1 H MCHC 35.7 RDW 20.2 H MPV 7.4 L Neutrophils % 58.7 Lymphocytes % 31.8 D Monocytes % 4.2 Eosinophils % 5.0 H Basophils % 0.3 - RADIOLOGY Radiology Studies Ordered: Category Date Time Status CHEST X-RAY PORTABLE* [RAD] Stat Radiology 11/14/18 20:01 Taken Medical Decision Making - Medical Decision Making 11/14/18 21:02 Patient is 68F with history of afib, cml, pulmonary htn, htn, dm here today with abnormal lab results. Vitals normal and stable. Source of bleed is the nosebleed, no need for rectal at this time. Bleeding controlled. Will evaluate with cbc, cmp, cxr. CBC shows hgb of 6.9, consented for 1 unit. EKG shows NSR with rate of 83. No st elevation/depressions. Normal axis. Normal intervals. No significant t wave abnormality. CXR shows rotation, no infiltrate, no signs of aspiration. INR slightly supratherapeutic. 11/14/18 21:45 Case d/w Dr Ochoa, accepted to obs. *DC/Admit/Observation/Transfer Diagnosis at time of Disposition: Anemia Qualifiers: Anemia type: other cause Other causes of anemia: chronic disease, other Qualified Code(s): D63.8 - Anemia in other chronic diseases classified elsewhere - Discharge Dispostion Condition at time of disposition: Stable Decision to Admit order: Yes - Referrals Referrals: Carlito Longo MD [Primary Care Provider] - - Patient Instructions - Post Discharge Activity
--- NOTE | 2018-11-14 21:27 | HP ---
CHIEF COMPLAINT: low hgb , nose bleed PCP:Dr Longo HISTORY OF PRESENT ILLNESS: Patient is a 68 year female with a significant past medical history of HTN, HLD , DM, afib (on coumadin) DVT in the past, CML, and COPD, who was sent by [facility] staff to the ED for abnormal lab results. Patient reports experiencing chronic nose bleed that began x2 days ago. She reports having her blood work done [facility] the [facility] earlier today with the results showing her hemoglobin levels to be 6.2, prompting the [facility] staff to have her sent to the ED for further evaluation and blood transfusion. Patient's nose bleed has currently stopped while in the ED. Denies chest pain, Sob. Denies nausea, vomiting. Denies contact with sick individuals, out of state travelling. Denies fevers, chills. Denies dizziness, lightheadedness. Denies any other symptoms. ER course was notable for: (1)cbc , cmp (2)one units PRBC (3)US abdomen with choledocholithiais Recent Travel:denies PAST MEDICAL HISTORY: hypertension, hyperlipidemia, diabetes mellitus, Afib on coumadin, prior DVT (uncertain which lower extremity), CML, COPD, congenital goiter, pulmonary hypertension, hypothyroidism, choledocholithiasis, biliary pancreatitis Congenital goiter pulmonary HTN Hypothyroidism Choledocolithiasis PAST SURGICAL HISTORY: Cholecystectomy, , Hernia Repair (incisional and umbilical hernia repairs),ERCP with stenting in 2013 Social History: Smoking:denies Alcohol:denies Drugs: denies Family History: (obtained from prior chart review) Father: a 69 years old, liver cancer Mother: at 68 years old, unknown cancer, schizoprenia Allergies metronidazole [From Flagyl] Allergy (Severe, Verified 11/14/18 17:55) Rash metoprolol Allergy (Intermediate, Verified 11/14/18 17:55) Rash HOME MEDICATIONS: Home Medications Medication Instructions Recorded Albuterol Sulfate 2.5 mg IH Q8H PRN 07/18/18 Ammonium Lactate Lotion 1 applic TP ASDIR 07/18/18 [Lac-Hydrin 12] Ascorbic Acid [Vitamin C -] 500 mg PO DAILY 07/18/18 Gabapentin [Neurontin -] 100 mg PO Q8H 07/18/18 Ipratropium Silt 0.2 mg IH Q8H PRN 07/18/18 L. Acidophilus/Bifid. Animalis 1 each PO TID 07/18/18 [Probiotic 5 Billion Cell Cap] Oxycodone HCl 10 mg PO Q6H PRN 07/18/18 Polyethylene Glycol 3350 [Miralax 17 gm PO TID 07/18/18 255 gm Btl -] Vitamin B Complex 1 tab PO DAILY 07/18/18 Warfarin Na [Coumadin -] 10 mg PO HS 07/18/18 Diltiazem Cd [Cardizem Cd -] 120 mg PO DAILY cap.cd.24h 07/23/18 Docusate Sodium [Colace -] 100 mg PO TID capsule 07/23/18 Levothyroxine [Synthroid -] 25 mcg PO DAILY@0700 tablet 07/23/18 Acetaminophen [Pain Relief] 650 mg PO Q6H PRN 07/29/18 Bisacodyl Suppository [Dulcolax 10 mg RC DAILY PRN 07/29/18 Suppository -] Insulin Lispro [Humalog Kwikpen 0 unit SQ ASDIR 07/29/18 U-100] Mag Hydrox/Al Hydrox/Simeth 30 ml PO Q6H PRN 07/29/18 [Mylanta Oral Suspension -] Pantoprazole Sodium 40 mg PO DAILY 07/29/18 Nystatin Cream [Mycostatin Cream -] 1 applic TP Q6HPO applic 08/03/18 Torsemide [Demadex -] 20 mg PO DAILY tablet 08/03/18 Aa/Hydrolyzed Collagen, Whey [Lps 30 ml PO DAILY 11/14/18 15-30 Liquid] Folic Acid 1 mg PO DAILY 11/14/18 Hydroxyzine HCl 25 mg PO TID 11/14/18 Nilotinib HCl [Tasigna] 300 mg PO BID 11/14/18 Polyvinyl Alcohol [Artificial 1 drop OU QID 11/14/18 Tears] Pyridoxine HCl (B-6) [Vitamin B6] 100 mg PO DAILY 11/14/18 Sennosides [Senna Lax] 8.6 mg PO DAILY 11/14/18 REVIEW OF SYSTEMS CONSTITUTIONAL: Absent: fever, chills, diaphoresis, generalized weakness, malaise, loss of appetite, weight change HEENT: Absent: rhinorrhea, nasal congestion, throat pain, throat swelling, difficulty swallowing, mouth swelling, ear pain, eye pain, visual changes CARDIOVASCULAR: Absent: chest pain, syncope, palpitations, irregular heart rate, lightheadedness , peripheral edema RESPIRATORY: Absent: cough, shortness of breath, dyspnea with exertion, orthopnea, wheezing, stridor, hemoptysis GASTROINTESTINAL: Absent: abdominal pain, abdominal distension, nausea, vomiting, diarrhea, constipation, melena, hematochezia GENITOURINARY: Absent: dysuria, frequency, urgency, hesitancy, hematuria, flank pain, genital pain MUSCULOSKELETAL: Absent: myalgia, arthralgia, joint swelling, back pain, neck pain SKIN: Absent: rash, itching, pallor HEMATOLOGIC/IMMUNOLOGIC: Absent: easy bleeding, easy bruising, lymphadenopathy, frequent infections ENDOCRINE: Absent: unexplained weight gain, unexplained weight loss, heat intolerance, cold intolerance NEUROLOGIC: Absent: headache, focal weakness or paresthesias, dizziness, unsteady gait, seizure, mental status changes, bladder or bowel incontinence PSYCHIATRIC: Absent: anxiety, depression, suicidal or homicidal ideation, hallucinations. PHYSICAL EXAMINATION Vital Signs - 24 hr 11/14/18 17:57 Temperature 98.3 F Pulse Rate 82 Respiratory 16 Rate Blood Pressure 145/53 L O2 Sat by Pulse 95 Oximetry (%) GENERAL: AAO3 in AND HEAD: NC/AT EYES: MICHELLE, EOMI ENT: MMM NECK: supple LUNGS: CTA B/L HEART: RRR, no MRG ABDOMEN: Soft, RUQ tenderness , not distended, normoactive bowel sounds, LOWER EXTREMITIES: 2+ pulses, warm, well-perfused. No calf tenderness. peripherial vascular changes , left leg wound 1x1 cm , left leg > right leg NEUROLOGICAL: Cranial nerves II-XII intact. Normal speech. PSYCHIATRIC: Cooperative. Good eye contact. SKIN: Warm, dry, normal turgor, Laboratory Results - last 24 hr 11/14/18 11/14/18 11/14/18 20:15 20:15 20:15 WBC 2.9 L RBC 1.98 L Hgb 6.9 L* Hct 19.4 L MCV 98.1 H MCH 35.0 H D MCHC 35.7 RDW 20.2 H Plt Count 90 L D MPV 7.4 L Absolute Neuts (auto) 1.7 Neutrophils % 58.7 Lymphocytes % 31.8 D Monocytes % 4.2 Eosinophils % 5.0 H Basophils % 0.3 Nucleated RBC % 0 PT with INR 36.70 H INR 3.08 H Crossmatch See Detail CBC, BMP 11/14/18 20:15 11/14/18 20:15 images 11/14 US abdomen : Hepatomegaly with fatty infiltrate, choledocholithiais with dilated CBD CXR : No acute pathology ASSESSMENT/PLAN: 68 yo f w/ PMH HTN, Afib on AC with DVT, COPD who comes into the ED from [facility] after 2.5 days history of active nose bleed and was found to have HGB 6.2 trannsuse one unit PRBC in ED and amdmitted to obs tele for further evaluation #Anemia # Pancytopenia /CML * Monitor H/H * one PRBC * INR 3.1 hold coumadin for now * repeat lab in am * consult Oncology Dr Sandhu * Continue home meds nilontib * low plt 90 but nose bleed has stopped no need for plt transfusion * blood transfuse below 7 # RUQ abdominal pain 2/2 choledocholithiais * US reviewed * repeat lab * GI consult for possible ERCP for stone removal when pt is hemodynamically stable #supratheraputic INR * holding Coumadin * holding DVT chemo prophylaxis to avoid bleeding * monitor INR # constipation * Miralax and Colace PRN # PVD * stable * has left leg woud * wound care , does not seems infective #Afib * Currently rate controlled. * Continue Cardizem Cd 120mg daily. Will hold if patient septic, hypotensive. * hold Coumadin * F/U PT/INR #CHF, diastolic * cont Torsemide 20mg PO daily #Hypertension * Patient receiving Cardizem CD 120mg daily #Diabetes mellitus * Hold oral agents * Insulin sliding scale * BGM ACHS #Hypothyroidism * cont Synthroid 25mcg PO daily #H/O Loss of vertebral body height * Unclear etiology. May be related to her history of CML? conservative management * Consider hematology- oncology consult, #FEN * NS@ 42 cc/hr * monitor lytes * Low sodium diet #prophylaxis * SCDS as INR is supratheraputic * GI: PPI 40 daily #Dispo * obs tele Visit type - Emergency Visit Emergency Visit: Yes ED Registration Date: 11/14/18 Care time: The patient presented to the Emergency Department on the above date and was hospitalized for further evaluation of their emergent condition. - New Patient This patient is new to me today: Yes Date on this admission: 11/15/18 - Critical Care Critical Care patient: No
[2018-11-14 21:31] LABS: ALBUMIN 2.5 g/dl (3.4-5.0); ALK PHOS 145 U/L (45-117); ANION GAP 6 MMOL/L (8-16); BILIRUBIN,TOTAL 0.7 mg/dL (0.2-1); BLOOD UREA NITROGEN 34 mg/dL (7-18); CALCIUM 8.3 mg/dL (8.5-10.1); CHLORIDE 103 mmol/L (98-107); CO2 27 mmol/L (21-32); CREATININE 1.2 mg/dL (0.55-1.3); GLUCOSE,RANDOM 199 mg/dL (74-106); MAGNESIUM 1.8 mg/dL (1.8-2.4); POTASSIUM 4.1 mmol/L (3.5-5.1); SGOT/AST 27 U/L (15-37); SGPT/ALT 125 U/L (13-61); SODIUM 136 mmol/L (136-145); TOT PROT 11.2 g/dl (6.4-8.2)
[2018-11-14] MEDS ORDERED: IPRATROPIUM BR 0.02% 0.5 MG/2.5 ML VIAL.NEB. NEB PRN (22:09)
[2018-11-14] MEDS ORDERED: BISACODYL 10 MG SUPP.RECT RC PRN (22:09)
[2018-11-14] MEDS ORDERED: SODIUM CHLORIDE 1,000 ML IV SCH (22:15)
--- NOTE | 2018-11-14 22:34 | PN ---
Teaching Attending Note Name of Resident: Armando Ochoa ATTENDING PHYSICIAN STATEMENT I saw and evaluated the patient. I reviewed the resident's note and discussed the case with the resident. I agree with the resident's findings and plan as documented. SUBJECTIVE: Patient is a 68 year woman with a PMH of HTN, HLD, NIDDM, afib (on coumadin) DVT in the past, CML, and COPD, who was sent by [facility] staff to the ER for abnormal lab results. Patient reports experiencing chronic nose bleed that began x2 days ago. She reports having her blood work done at the [facility] earlier today with the results showing her hemoglobin levels to be 6.2, prompting the [facility] staff to have her sent to the ED for further evaluation and blood transfusion. Patient's nose bleed stopped while in the ER. Patient denies chest pain, SOB, nausea, vomiting, contact with sick individuals, out of state travelling, fevers , chills, headache or dysuria. OBJECTIVE: Alert Vital Signs Period Temp Pulse Resp BP Sys/Machado Pulse Ox Last 24 Hr 98.3 F 82 16 145/53 95 HEENT: No Jaundice, eye redness or discharge, +Pallor; PERRLA, EOMI. Normocephalic, atraumatic. External ears are normal and hearing is grossly intact. No nasal discharge. Neck: Supple, nontender. No palpable adenopathy or thyromegaly. No JVD Chest: Good effort. Clear to auscultation and percussion. Heart: Irregularly irregular. No S3, rub or murmur Abdomen: Not distended, soft, nontender and no HSM. No rebound or guarding. Normal bowel sounds. Ext: Peripheral pulses intact. No leg edema. Skin: Warm and dry. No petechiae, rash or ecchymosis. Neuro: Alert. Oriented x3. CN 2-12 grossly intact. Sensation grossly intact in all four extremities and DTR are symmetric. Psych: Appropriate mood and affect. Good insight. Current Medications Generic Name Dose Route Start Last Admin Trade Name Freq PRN Reason Stop Dose Admin Artificial Tears 1 drop 11/15/18 10:00 Artificial Tears OU QID JOVITA Ascorbic Acid 500 mg 11/15/18 10:00 Vitamin C - PO DAILY JOVITA Bisacodyl 10 mg 11/14/18 22:09 Dulcolax Suppository - RC DAILY PRN CONSTIPATION Diltiazem HCl 120 mg 11/15/18 10:00 Cardizem Cd - PO DAILY [facility] Docusate Sodium 100 mg 11/15/18 06:00 Colace - PO TID [facility] Folic Acid 1 mg 11/15/18 10:00 Folic Acid - PO DAILY [facility] Gabapentin 100 mg 11/14/18 22:15 Neurontin - PO Q8H JOVITA Hydroxyzine HCl 25 mg 11/15/18 06:00 Atarax - PO TID [facility] Sodium Chloride 1,000 mls @ 42 mls/hr 11/14/18 22:15 11/14/18 22:13 Normal Saline - IV 42 mls/hr ASDIR [facility] Administration Insulin Aspart 1 vial 11/15/18 07:00 Novolog Vial Sliding Scale - SQ ACHS [facility] Protocol Ipratropium [place] amp 11/14/18 22:09 Atrovent 0.02% Nebulizer - NEB Q8H PRN SHORTNESS OF BREATH Lactic Acid 1 applic 11/14/18 22:15 Lac-Hydrin 12 TP ASDIR [facility] Levothyroxine Sodium 25 mcg 11/15/18 07:00 Synthroid - PO DAILY@0700 [facility] Non-Formulary Medication 10 mg 11/14/18 22:09 Oxycodone Hcl [Oxycodone Hcl] PO Q6H PRN BACK PAIN Nystatin 1 applic 11/15/18 00:00 Mycostatin Cream - TP Q6HPO [facility] Pantoprazole Sodium 40 mg 11/15/18 10:00 Protonix - PO DAILY [facility] Polyethylene Glycol 17 gm 11/15/18 06:00 Miralax (For Bowel Prep) - PO TID [facility] Pyridoxine HCl 100 mg 11/15/18 10:00 Vitamin B6 - PO DAILY [facility] Senna tab 11/15/18 10:00 Senna - PO DAILY [facility] Torsemide 20 mg 11/15/18 10:00 Demadex - PO DAILY [facility] Home Medications Medication Instructions Recorded Albuterol Sulfate 2.5 mg IH Q8H PRN 07/18/18 Ammonium Lactate Lotion 1 applic TP ASDIR 07/18/18 [Lac-Hydrin 12] Ascorbic Acid [Vitamin C -] 500 mg PO DAILY 07/18/18 Gabapentin [Neurontin -] 100 mg PO Q8H 07/18/[address] [place] 0.2 mg IH Q8H PRN 07/18/18 L. Acidophilus/Bifid. Animalis 1 each PO TID 07/18/18 [Probiotic 5 Billion Cell Cap] Oxycodone HCl 10 mg PO Q6H PRN 07/18/18 Polyethylene Glycol 3350 [Miralax 17 gm PO TID 07/18/18 255 gm Btl -] Vitamin B Complex 1 tab PO DAILY 07/18/18 Warfarin Na [Coumadin -] 10 mg PO HS 07/18/18 Diltiazem Cd [Cardizem Cd -] 120 mg PO DAILY cap.cd.24h 07/23/18 Docusate Sodium [Colace -] 100 mg PO TID capsule 07/23/18 Levothyroxine [Synthroid -] 25 mcg PO DAILY@0700 tablet 07/23/18 Acetaminophen [Pain Relief] 650 mg PO Q6H PRN 07/29/18 Bisacodyl Suppository [Dulcolax 10 mg RC DAILY PRN 07/29/18 Suppository -] Insulin Lispro [Humalog Kwikpen 0 unit SQ ASDIR 07/29/18 U-100] Mag Hydrox/Al Hydrox/Simeth 30 ml PO Q6H PRN 07/29/18 [Mylanta Oral Suspension -] Pantoprazole Sodium 40 mg PO DAILY 07/29/18 Nystatin Cream [Mycostatin Cream -] 1 applic TP Q6HPO applic 08/03/18 Torsemide [Demadex -] 20 mg PO DAILY tablet 08/03/18 Aa/Hydrolyzed Collagen, Whey [Lps 30 ml PO DAILY 11/14/18 15-30 Liquid] Folic Acid 1 mg PO DAILY 11/14/18 Hydroxyzine HCl 25 mg PO TID 11/14/18 Nilotinib HCl [Tasigna] 300 mg PO BID 11/14/18 Polyvinyl Alcohol [Artificial 1 drop OU QID 11/14/18 Tears] Pyridoxine HCl (B-6) [Vitamin B6] 100 mg PO DAILY 11/14/18 Sennosides [Senna Lax] 8.6 mg PO DAILY 11/14/18 Abnormal Lab Results 11/14/18 11/14/18 11/14/18 20:15 20:15 20:15 WBC 2.9 L RBC 1.98 L Hgb 6.9 L* Hct 19.4 L MCV 98.1 H MCH 35.0 H D RDW 20.2 H Plt Count 90 L D MPV 7.4 L Eosinophils % 5.0 H PT with INR 36.70 H INR 3.08 H Anion Gap 6 L BUN 34 H Random Glucose 199 H Calcium 8.3 L ALT 125 H Alkaline Phosphatase 145 H Total Protein 11.2 H Albumin 2.5 L Crossmatch 11/14/18 20:15 WBC RBC Hgb Hct MCV MCH RDW Plt Count MPV Eosinophils % PT with INR INR Anion Gap BUN Random Glucose Calcium ALT Alkaline Phosphatase Total Protein Albumin Crossmatch See Detail ASSESSMENT AND PLAN: 1. Anemia/Pancytopenia/CML - Severe anemia likely related to CML and possibly acute blood loss. Will do stool hemoccult test to rule out GI bleeding. Hold coumadin for elevated INR and monitor INR daily. Transfuse 1 unit PRBC and consult hematology. Monitor closely for nose bleeding. Continue cardiazem for Afib and monitor on telemetry. 2. Hypoalbuminemia - Possibly due to combined effects of malnutrition and inflammation associated with comorbid chronic conditions. Will ensure adequate dietary protein intake and also consult batch operator. Check UA for proteinuria. 3. DM For now, we will hold the home diabetes drugs and implement sliding scale insulin regimen. Provide comprehensive diabetes care with patient teaching and counseling about the importance of adherence to prescribed diabetes regimen, euglycemia, eye care and foot care. 4. Hypertension - Restart outpatient antihypertensive drugs and revise regimen to ensure smooth [id number] good BP control. Nonpharmacologic measures to control hypertension like weight loss, salt restriction and exercise discussed. 5. DVT prophylaxis - On coumadin (on hold for high INR) 6. Advance directives - Full code
[2018-11-14] MEDS ORDERED: GABAPENTIN 100 MG CAPSULE (FP) ONE (23:13)
[2018-11-14] MEDS: GABAPENTIN 100 MG CAPSULE (FP) PO SCH (23:15)
[2018-11-15] MEDS: NYSTATIN 100,000 UNIT/GM TOPICAL CREAM 15 GM TUBE TP SCH ×3 (00:17→12:09)
[2018-11-15] MEDS ORDERED: oxyCODONE HCL 5 MG TABLET ONE ×3 (01:36→14:22)
[2018-11-15] MEDS: oxyCODONE HCL 5 MG TABLET PO PRN ×2 (01:38→07:40)
[2018-11-15] MEDS ORDERED: LEVOTHYROXINE NA 25 MCG TABLET (FP) ONE (06:05)
[2018-11-15] MEDS ORDERED: DOCUSATE SODIUM 100 MG CAPSULE (FP) PO ONE (06:05)
[2018-11-15] MEDS ORDERED: GABAPENTIN 100 MG CAPSULE (FP) ONE (06:08)
[2018-11-15] MEDS: hydrOXYzine HCL 25 MG TABLET (FP) PO SCH ×2 (06:26→14:22)
[2018-11-15] MEDS: GABAPENTIN 100 MG CAPSULE (FP) PO SCH ×2 (06:26→14:22)
[2018-11-15] MEDS: POLYETHYLENE GLYCOL 3350 255 GM BTL PO SCH ×2 (06:26→14:22)
[2018-11-15] MEDS: DOCUSATE SODIUM 100 MG CAPSULE (FP) PO SCH ×2 (06:26→14:22)
[2018-11-15] MEDS: INSULIN SLIDING SCALE (NOVOLOG) 1 VIAL SQ SCH ×2 (06:27→12:22)
[2018-11-15] MEDS ORDERED: LEVOTHYROXINE NA 25 MCG TABLET (FP) PO SCH (07:00)
[2018-11-15 07:14] LABS: BASO % 0.3 % (0-2.0); EOS % 5.9 % (0-4.5); HEMATOCRIT 21.5 % (32.4-45.2); HEMOGLOBIN 7.6 GM/dL (10.7-15.3); LYMPH % 36.4 % (8-40); MCH 33.6 pg (25.7-33.7); MCHC 35.2 g/dl (32.0-36.0); MEAN CELL VOLUME 95.5 fl (80-96); MEAN PLT VOLUME 7.4 fl (7.5-11.1); MONO % 4.8 % (3.8-10.2); NEUT % 52.6 % (42.8-82.8); PLATELET COUNT 82 K/MM3 (134-434); RBC 2.25 M/mm3 (3.60-5.2); RDW 19.6 % (11.6-15.6); WHITE BLOOD COUNT 2.4 K/mm3 (4.0-10.0)
[2018-11-15 07:25] LABS: INR 2.54 (0.83-1.09); PROTHROMBIN TIME (PATIENT) 30.2 SEC (9.7-13.0)
[2018-11-15 07:42] LABS: ALBUMIN 2.2 g/dl (3.4-5.0); ALK PHOS 125 U/L (45-117); ANION GAP 4 MMOL/L (8-16); BILIRUBIN,TOTAL 0.6 mg/dL (0.2-1); BLOOD UREA NITROGEN 29 mg/dL (7-18); CHLORIDE 106 mmol/L (98-107); CO2 27 mmol/L (21-32); GLUCOSE,RANDOM 145 mg/dL (74-106); LIPASE 126 U/L (73-393); MAGNESIUM 1.8 mg/dL (1.8-2.4); N-TERMINAL BNP 3558.3 pg/ml (5-125); POTASSIUM 3.6 mmol/L (3.5-5.1); SGOT/AST 23 U/L (15-37); SGPT/ALT 108 U/L (13-61); SODIUM 137 mmol/L (136-145); TOT PROT 10.2 g/dl (6.4-8.2)
[2018-11-15 07:51] VITALS: TEMP 98.1
[2018-11-15] MEDS: ARTIFICIAL TEARS (POLYVINYL ALCOHOL) OPTH DROPS OU SCH ×2 (09:16→14:02)
[2018-11-15] MEDS ORDERED: ASCORBIC ACID 500 MG TABLET (FP) PO SCH (10:00)
[2018-11-15] MEDS ORDERED: PYRIDOXINE HCL (B-6) 50 MG TABLET (FP) PO SCH (10:00)
[2018-11-15] MEDS ORDERED: FOLIC ACID 1 MG TABLET (FP) PO SCH (10:00)
[2018-11-15] MEDS ORDERED: AMMONIUM LACTATE 12% LOTION 225 GM BOTTLE TP SCH (10:00)
[2018-11-15] MEDS ORDERED: NILOTINIB HCL 300 MG PO SCH (10:00)
[2018-11-15] MEDS ORDERED: SENNOSIDES 8.6MG TABLET (FP) PO SCH (10:00)
[2018-11-15] MEDS ORDERED: PANTOPRAZOLE 40 MG TABLET (FP) PO SCH (10:00)
[2018-11-15] MEDS ORDERED: TORSEMIDE 20 MG TABLET (FP) PO SCH (10:00)
--- NOTE | 2018-11-15 10:50 | EKG ---
Test Reason : Blood Pressure : / mmHG Vent. Rate : 083 BPM Atrial Rate : 083 BPM P-R Int : 138 ms QRS Dur : 090 ms QT Int : 392 ms P-R-T Axes : -10 -04 022 degrees QTc Int : 460 ms NORMAL SINUS RHYTHM NORMAL ECG WHEN COMPARED WITH ECG OF 29-JUL-2018 15:34, VENT. RATE HAS INCREASED BY 33 BPM Confirmed by CAROLINE BURKS MD ([id number]) on 11/15/2018 10:50:03 AM Referred By: Confirmed By:CAROLINE BURKS MD
--- NOTE | 2018-11-15 12:59 | PN ---
Teaching Attending Note Name of Resident: Danni Bradshaw ATTENDING PHYSICIAN STATEMENT I saw and evaluated the patient. I reviewed the resident's note and discussed the case with the resident. I agree with the resident's findings and plan as documented with exceptions below. SUBJECTIVE: Patient seen and examined, feels tired but no complaints otherwise, No nose bleed inhouse. Has chronic right sided abdominal pain, that she attributes to hernia, and is followed by Dr. Velazquez and on chronic oxycodone. No new concerns inhouse. OBJECTIVE: Vital Signs Period Temp Pulse Resp BP Sys/Machado Pulse Ox Last 24 Hr 98.1 F-98.8 F 75-84 16-18 122-145/53-78 95-98 Intake & Output 11/12/18 11/13/18 11/14/18 11/15/18 23:59 23:59 23:59 23:59 Weight 195 lb General: lying in bed in no acute distress, pallor chest: CTAB, no rales or wheezing, Abdomen:soft, NT, ND Extremities: no edema Home Medications Medication Instructions Recorded Albuterol Sulfate 2.5 mg IH Q8H PRN 07/18/18 Ammonium Lactate Lotion 1 applic TP ASDIR 07/18/18 [Lac-Hydrin 12] Ascorbic Acid [Vitamin C -] 500 mg PO DAILY 07/18/18 Gabapentin [Neurontin -] 100 mg PO Q8H 07/18/18 Ipratropium [place] 0.2 mg IH Q8H PRN 07/18/18 L. Acidophilus/Bifid. Animalis 1 each PO TID 07/18/18 [Probiotic 5 Billion Cell Cap] Oxycodone HCl 10 mg PO Q6H PRN 07/18/18 Polyethylene Glycol 3350 [Miralax 17 gm PO TID 07/18/18 255 gm Btl -] Vitamin B Complex 1 tab PO DAILY 07/18/18 Warfarin Na [Coumadin -] 10 mg PO HS 07/18/18 Diltiazem Cd [Cardizem Cd -] 120 mg PO DAILY cap.cd.24h 07/23/18 Docusate Sodium [Colace -] 100 mg PO TID capsule 07/23/18 Levothyroxine [Synthroid -] 25 mcg PO DAILY@0700 tablet 07/23/18 Acetaminophen [Pain Relief] 650 mg PO Q6H PRN 07/29/18 Bisacodyl Suppository [Dulcolax 10 mg RC DAILY PRN 07/29/18 Suppository -] Insulin Lispro [Humalog Kwikpen 0 unit SQ ASDIR 07/29/18 U-100] Mag Hydrox/Al Hydrox/Simeth 30 ml PO Q6H PRN 07/29/18 [Mylanta Oral Suspension -] Pantoprazole Sodium 40 mg PO DAILY 07/29/18 Nystatin Cream [Mycostatin Cream -] 1 applic TP Q6HPO applic 08/03/18 Torsemide [Demadex -] 20 mg PO DAILY tablet 08/03/18 Aa/Hydrolyzed Collagen, Whey [Lps 30 ml PO DAILY 11/14/18 15-30 Liquid] Folic Acid 1 mg PO DAILY 11/14/18 Hydroxyzine HCl 25 mg PO TID 11/14/18 Nilotinib HCl [Tasigna] 300 mg PO BID 11/14/18 Polyvinyl Alcohol [Artificial 1 drop OU QID 11/14/18 Tears] Pyridoxine HCl (B-6) [Vitamin B6 -] 100 mg PO DAILY 11/14/18 Sennosides [Senna Lax] 8.6 mg PO DAILY 11/14/18 Laboratory Results - last 24 hr 11/14/18 11/14/18 11/14/18 20:15 20:15 20:15 WBC 2.9 L RBC 1.98 L Hgb 6.9 L* Hct 19.4 L MCV 98.1 H MCH 35.0 H D MCHC 35.7 RDW 20.2 H Plt Count 90 L D MPV 7.4 L Absolute Neuts (auto) 1.7 Neutrophils % 58.7 Lymphocytes % 31.8 D Monocytes % 4.2 Eosinophils % 5.0 H Basophils % 0.3 Nucleated RBC % 0 PT with INR 36.70 H INR 3.08 H Sodium 136 Potassium 4.1 Chloride 103 Carbon Dioxide 27 Anion Gap 6 L BUN 34 H Creatinine 1.2 Creat Clearance w eGFR 44.41 POC Glucometer Random Glucose 199 H Hemoglobin A1c % Calcium 8.3 L Phosphorus Magnesium 1.8 Total Bilirubin 0.7 AST 27 ALT 125 H Alkaline Phosphatase 145 H B-Natriuretic Peptide Total Protein 11.2 H Albumin 2.5 L Lipase Blood Type Antibody Screen Crossmatch 11/14/18 11/15/18 11/15/18 20:15 06:00 06:17 WBC RBC Hgb Hct MCV MCH MCHC RDW Plt Count MPV Absolute Neuts (auto) Neutrophils % Lymphocytes % Monocytes % Eosinophils % Basophils % Nucleated RBC % PT with INR INR Sodium 137 Potassium 3.6 Chloride 106 Carbon Dioxide 27 Anion Gap 4 L BUN 29 H Creatinine 1.0 Creat Clearance w eGFR 54.81 POC Glucometer 146 Random Glucose 145 H Hemoglobin A1c % Calcium 8.0 L Phosphorus 3.0 Magnesium 1.8 Total Bilirubin 0.6 AST 23 ALT 108 H Alkaline Phosphatase 125 H B-Natriuretic Peptide 3558.3 H Total Protein 10.2 H Albumin 2.2 L Lipase 126 Blood Type O POSITIVE Antibody Screen Negative Crossmatch See Detail 11/15/18 11/15/18 11/15/18 06:55 07:00 07:00 WBC 2.4 L RBC 2.25 L Hgb 7.6 L Hct 21.5 L MCV 95.5 MCH 33.6 MCHC 35.2 RDW 19.6 H Plt Count 82 L MPV 7.4 L Absolute Neuts (auto) 1.2 L Neutrophils % 52.6 Lymphocytes % 36.4 Monocytes % 4.8 Eosinophils % 5.9 H Basophils % 0.3 Nucleated RBC % 0 PT with INR 30.20 H INR 2.54 H Sodium Potassium Chloride Carbon Dioxide Anion Gap BUN Creatinine Creat Clearance w eGFR POC Glucometer Random Glucose Hemoglobin A1c % 6.7 H Calcium Phosphorus Magnesium Total Bilirubin AST ALT Alkaline Phosphatase B-Natriuretic Peptide Total Protein Albumin Lipase Blood Type Antibody Screen Crossmatch ASSESSMENT AND PLAN: 68 yof with PMHx of HTN, HLD, DM, afib (on coumadin) DVT in the past, CML, and COPD, transfusion dependent anemia, getting every 6 weeks, recent acute on chronic nose bleed, now resolved, sent with severe anemia. -Acute on chronic transfusion dependent anemia, secondary to underlyling CML and acute on chronic epistaxis -Acute on chronic epistaxis, now resolved -Chronic pancytopenia -CML -Afib on coumadin -DVT -COPD -HTN -HLD Plan: appropriate response to PRCB. h/h improved. No evidence of epistaxis inhouse. Patient reports transfusion dependent anemia, gets every 6 weeks. Has established follow up at [facility] heme/onc clinic. Also known choledocholithiasis, follows with Dr. Velazquez. Is s/p remote CCY. LFTs improved, abdominal exam with chronic pain, unchanged and non concerning. resume coumadin with close INR, CBC follow up. [facility]er [facility] to outpatient heme/onc and PCP. D/c back to [facility] today. Plan discussed with patient and ED RN and all questions answered.
[2018-11-15 13:40] VITALS: BP 135/70; PULSE 83
== END 2018-11-15 14:31 ==
LOC: JER 17:43 → JERBED 21:45
PROVIDERS: ADMIT Internal Medicine; ATTEND Hospitalist
PROC: 30233N1 Transfusion of Nonautologous Red Blood Cells into Peripheral Vein, Percutaneous Approach (ICD-10-PCS; principal; 2018-11-14)
PROC: 3E0337Z Introduction of Electrolytic and Water Balance Substance into Peripheral Vein, Percutaneous Approach (ICD-10-PCS; 2018-11-14)
PROC: 3E033GC Introduction of Other Therapeutic Substance into Peripheral Vein, Percutaneous Approach (ICD-10-PCS; 2018-11-14)
PROC: 3E013GC Introduction of Other Therapeutic Substance into Subcutaneous Tissue, Percutaneous Approach (ICD-10-PCS; 2018-11-14)
DX: D61.818 Other pancytopenia (principal); D63.8 Anemia in other chronic diseases classified elsewhere; C92.10 Chronic myeloid leukemia, BCR/ABL-positive, not having achieved remission; R77.0 Abnormality of albumin; I11.0 Hypertensive heart disease with heart failure; I50.30 Unspecified diastolic (congestive) heart failure; E78.5 Hyperlipidemia, unspecified; I73.9 Peripheral vascular disease, unspecified; I48.91 Unspecified atrial fibrillation; K59.00 Constipation, unspecified; E11.9 Type 2 diabetes mellitus without complications; J44.9 Chronic obstructive pulmonary disease, unspecified; K76.0 Fatty (change of) liver, not elsewhere classified; F32.9 Major depressive disorder, single episode, unspecified; Z79.4 Long term (current) use of insulin; Z79.01 Long term (current) use of anticoagulants; Z86.718 Personal history of other venous thrombosis and embolism
CPT/HCPCS: 36415; 36430; 36511; 71045-TC-FY; 76705-TC; 80053; 82962; 83036; 83690; 83735; 83880; 84100; 85025; 85610; 86850; 86900; 86901; 86922; 93005; 93010; 96372; 96374; 99285-25; G0378; J7030; P9038; P9058

== ENCOUNTER 2018-12-08 17:35 | Inpatient (IN) | payer OTHER ==
--- NOTE | 2018-12-08 18:30 | PDOC ---
History of Present Illness - General Chief Complaint: Pain Stated Complaint: ABDOMINAL PAIN Time Seen by Provider: 12/08/18 17:49 History Source: Patient Exam Limitations: No Limitations - History of Present Illness Initial Comments: 12/08/18 18:24 Patient is a 68 y/o female from [facility] with a history of HTN. HLD, afib ( on warfarin), DVT, CML, COPD, and chronic back pain who presents for abdominal pain. She states she has been having this abdominal pain for a couple weeks. She was recently in [facility] for the same pain, they did "tests" but they were not able to find anything. She takes Oxycodeone for the chronic pain but reports it is not helping. The pain is sharp in her LLQ and moves across to the right side. Her bowel movements have been normal with her last one yesterday. She has had her gallbladder removed in the past. Parul hematuria, dysuria, headache, chest pain, nausea, vomiting, diarrhea, or shortness of breath. Past History - Past Medical History Allergies/Adverse Reactions: Allergies Allergy/AdvReac Type Severity Reaction Status Date / Time metronidazole [From Flagyl] Allergy Severe Rash Verified 12/08/18 18:35 metoprolol Allergy Intermediate Rash Verified 12/08/18 18:35 Home Medications: Ambulatory Orders Albuterol Sulfate 2.5 mg IH Q8H PRN 07/18/18 Ammonium Lactate Lotion [Lac-Hydrin 12] 1 applic TP ASDIR 07/18/18 Ascorbic Acid [Vitamin C -] 500 mg PO DAILY 07/18/18 Gabapentin [Neurontin -] 100 mg PO Q8H 07/18/18 Ipratropium [place] 0.2 mg IH Q8H PRN 07/18/18 L. Acidophilus/Bifid. Animalis [Probiotic 5 Billion Cell Cap] 1 each PO TID Oxycodone HCl 10 mg PO Q6H PRN 07/18/18 Polyethylene Glycol 3350 [Miralax 255 gm Btl -] 17 gm PO TID 07/18/18 Vitamin B Complex 1 tab PO DAILY 07/18/18 Warfarin Na [Coumadin -] 10 mg PO HS 07/18/18 Diltiazem Cd [Cardizem Cd -] 120 mg PO DAILY cap.cd.24h 07/23/18 Docusate Sodium [Colace -] 100 mg PO TID capsule 07/23/18 Levothyroxine [Synthroid -] 25 mcg PO DAILY@0700 tablet 07/23/18 Acetaminophen [Pain Relief] 650 mg PO Q6H PRN 07/29/18 Bisacodyl Suppository [Dulcolax Suppository -] 10 mg RC DAILY PRN 07/29/18 Insulin Lispro [Humalog Kwikpen U-100] 0 unit SQ ASDIR 07/29/18 Mag Hydrox/Al Hydrox/Simeth [Mylanta Oral Suspension -] 30 ml PO Q6H PRN Pantoprazole Sodium 40 mg PO DAILY 07/29/18 Nystatin Cream [Mycostatin Cream -] 1 applic TP Q6HPO applic 08/03/18 Torsemide [Demadex -] 20 mg PO DAILY tablet 08/03/18 Aa/Hydrolyzed Collagen, Whey [Lps 15-30 Liquid] 30 ml PO DAILY 11/14/18 Folic Acid 1 mg PO DAILY 11/14/18 Hydroxyzine HCl 25 mg PO TID 11/14/18 Nilotinib HCl [Tasigna] 300 mg PO BID 11/14/18 Polyvinyl Alcohol [Artificial Tears] 1 drop OU QID 11/14/18 Pyridoxine HCl (B-6) [Vitamin B6 -] 100 mg PO DAILY 11/14/18 Sennosides [Senna Lax] 8.6 mg PO DAILY 11/14/18 Anemia: Yes Asthma: No Cancer: Yes (CML) Cardiac Disorders: Yes (A-FIB) CVA: No COPD: Yes CHF: No DVT: Yes Dementia: No Diabetes: Yes GI Disorders: No Disorders: Yes (uti) HTN: Yes Hypercholesterolemia: Yes Liver Disease: Yes (fatty liver) Psychiatric Problems: Yes (depression) Seizures: No Thyroid Disease: Yes - Surgical History Abdominal Surgery: Yes (hernia) Appendectomy: No Cardiac Surgery: No Cholecystectomy: Yes Lung Surgery: No Neurologic Surgery: No Orthopedic Surgery: No - Immunization History Immunization Up to Date: Yes - Suicide/Smoking/Psychosocial Hx Smoking Status: Yes Smoking History: Never smoked Have you smoked in the past 12 months: No Number of Cigarettes Smoked Daily: 0 If you are a former smoker, when did you quit?: 10/25/2013 Cigars Per Day: 0 'Breaking Loose' booklet given: 02/28/12 Hx Alcohol Use: No Drug/Substance Use Hx: No Substance Use Type: None Hx Substance Use Treatment: No Review of Systems - Review of Systems Constitutional: No: Chills, Fever HEENTM: No: Eye Pain Respiratory: No: Cough, Shortness of Breath Cardiac (ROS): No: Chest Pain ABD/GI: Yes: Abdominal cramping. No: Abdominal Distended, Diarrhea, Nausea, Vomiting : No: Burning, Dysuria, Hematuria *Physical Exam - Physical Exam Comments: 12/08/18 18:33 GENERAL: A&O x3, no acute distress HEENT: head autraumatic, EOMI, left lid with crusting HEART: RRR, no murmurs, rubs, or gallops LUNGS: CTAL B/L ABDOMEN: diffusely tender to palpation, soft EXTREMITIES: edema with skin changes up to knee ED Treatment Course - LABORATORY CBC & Chemistry Diagram: 12/08/18 18:59 12/08/18 21:39 Medical Decision Making - Medical Decision Making 12/08/18 18:35 f/u labs, ekg 12/08/18 20:09 ekg with third degree AV block ? repeat after medecations K 7.3, ordered calcium gluconate, D50, insulin 10, and kayexalte Na 129 Cr 2.5 f/u abd CT non contrast 12/08/18 21:16 repeat EKG, likely junctional rhythm 12/08/18 22:53 admitted to hospitalist, hyperkalemia and ASA *DC/Admit/Observation/Transfer Diagnosis at time of Disposition: ASA (acute kidney injury), Hyperkalemia - Discharge Dispostion Decision to Admit order: Yes - Referrals - Patient Instructions - Post Discharge Activity
[2018-12-08] MEDS ORDERED: ACETAMINOPHEN 325 MG TABLET (FP) PO ONE (18:35)
[2018-12-08] MEDS ORDERED: FAMOTIDINE 20 MG/50 ML IVPB 20 MG/50 ML MG IVPB ONE ×2 (18:35→18:45)
[2018-12-08] MEDS ORDERED: MAG HYDROX/AL HYDROX/SIMETH -MYLANTA- ORAL SUSPENSION PO ONE (18:35)
[2018-12-08] MEDS ORDERED: ACETAMINOPHEN 325 MG TABLET (FP) ONE (18:45)
[2018-12-08] MEDS ORDERED: MAG HYDROX/AL HYDROX/SIMETH 30 ML UNIT-DOSE CUP ONE (18:45)
--- NOTE | 2018-12-08 19:02 | PDOC ---
Attending Attestation - HPI HPI: 12/08/18 19:47 The patient is a 68-year-old female with a past medical history significant for HTN, HLD, DM, Afib (on warfarin), hx of DVT, CML, COPD, congenital goiter, hypothyroidism, Choledocholithiasis, biliary pancreatitis presents to the emergency department with abdominal pain. The patient presents with LLQ pain that radiates to the right, thats sharp in quality. The patient reports the pains been ongoing for the past month, that worsening today with pain while lying down. The patient reports taking oxycodone for the pain, without relief. The patient states she was seen at [facility], where she states she had labs and imaging done; however they were unable to find anything. The patient reports having a normal bowel movement, and last BM was yesterday Denies fever, chills, hematuria, dysuria, chest pain, SOB, nausea, vomiting, diarrhea. Allergies: Past surgical history: Cholecystectomy, , Hernia Repair (incisional and umbilical hernia repairs),ERCP with stenting in 2013 PCP: From [facility] - Physicial Exam PE: 12/08/18 19:53 Vitals: Triage Vital signs reviewed General Appearance: no acute distress, well nourished well developed, Cardiac: Regular rate and rhythm, no murmurs, no rubs, no gallops, Lungs: Clear to auscultation bilateral, good air movement bilaterally, Abdomen: +right side pain. Soft, nondistended. Extremities: Full range of motion to all extremities, no cyanosis, clubbing, or edema Skin: Warm and dry, no rashes or lesions, no petechiae. - Medical Decision Making 12/08/18 19:47 Documentation prepared by Jacqueline Mejia, acting as administrative medical director for Sukhdeep Aguirre MD. 12/08/18 19:49 Plan Labs Lactic Acid, UA, blood culture, CBC, CMP, Trop. EKG. CT non-contrast. Abdomen and pelvic: THIS IS A PRELIMINARY REPORT FROM [facility] DATE OF SERVICE: 2018-12-08 20:50:30 Procedure: CT scan abdomen and pelvis; dated December 08, 2018 . Axial images obtained followed by coronal and sagittal reconstructions. Study performed unenhanced. Oral contrast utilized. Findings: The unenhanced liver demonstrating hepatomegaly with longitudinal dimension 22.0 cm. Air present within the intra-and extrahepatic biliary tree. Patient status post cholecystectomy. The unenhanced spleen, pancreas, and adrenal glands are unremarkable. Gallbladder and gallbladder fossa normal in appearance. Renal vascular calcifications bilaterally. Nonobstructing intrarenal calculi also suggested bilaterally.. No evidence of right or left-sided hydronephrosis, hydroureter, ureteral or bladder calculi. Bladder not well distended for this examination. Air present within the bladder. Additionally air is seen external to the bladder level of the low pelvis. The air external to the bladder may be within pelvic vessels. Postmenopausal appearance of the uterus, retroverted in position. Fibroid uterus suggested. No adnexal masses appreciated. Rectum and perirectal space unremarkable. Terminal ileum and appendix within normal limits. No obvious portal venous or mesenteric venous gas appreciated. No inflammatory changes of the large or small bowel identified. No free intraperitoneal air identified. No abdominal wall defects noted. Small amount of ascites seen inferior tip of the liver. Extensive atherosclerotic change present within the abdominal aorta as well as the origin of the branch vessels of the aorta. IVC normal in configuration. Generalized mineralization of the bones noted. Degenerative disc disease present throughout the lumbar spine. Discogenic vertebral sclerosis seen adjacent to the L2-3 disc level. Multilevel bilateral facet arthropathy. Impression: 1. Limited CT scan abdomen and pelvis, unenhanced. 2. Status post cholecystectomy. Air present within the intra-and extra hepatic biliary tree. Correlate with patient's surgical history and/or prior history of sphincterotomy. 3. Air external to the bladder noted low pelvis, likely extraperitoneal; may be within pelvic vessels. Clinical correlation advised and follow-up imaging may be indicated. THIS DOCUMENT HAS BEEN ELECTRONICALLY SIGNED Slim Cline MD 12/08/2018 22:34 EST Radiology: Chest X-ray: DATE OF SERVICE: 2018-12-08 19:10:58 EXAM: XRAY PORTABLE UPRIGHT VIEW CHEST FINDINGS: Obliquely positioned. Cardiomegaly with prominent pulmonary vascularity and increased bronchovascular and interstitial markings. Lungs are under ventilated. There is no consolidation or pneumothorax. Bony structures are intact. IMPRESSION: Pulmonary congestion with early interstitial edema THIS DOCUMENT HAS BEEN ELECTRONICALLY SIGNED Radha Ann D.O. 12/08/2018 19:45 EST Medication <Jacqueline Mejia - Last Filed: 12/08/18 22:40> - Resident Resident Name: Green,Alivia - ED Attending Attestation I have performed the following: I have examined & evaluated the patient, The case was reviewed & discussed with the resident, I agree w/resident's findings & plan, Exceptions are as noted - Medical Decision Making 12/09/18 01:15 Patient with chronic abdominal pain. However presented to the emergency department tonight. Given age and comorbidities labs cultures EKG and a CAT scan were ordered EKG demonstrates junctional rhythm Laboratory analysis notable for potassium 7.3 with creatinine of 2.5 which is elevated compared to patient's baseline Calcium gluconate insulin and dextrose and sodium bicarbonate ordered CAT scan with no clear acute pathology Repeat potassium 6. 2 repeat EKG demonstrates again junctional rhythm but no acute peaked T waves or other signs of hyperkalemia We'll admit to medicine for further management of ASA hyperkalemia <Sukhdeep Aguirre - Last Filed: 12/09/18 01:15>
[2018-12-08] MEDS ORDERED: SODIUM CHLORIDE 2,286 ML IV ONE (19:03)
[2018-12-08 19:05] LABS: BASO % 0.2 % (0-2.0); EOS % 2.6 % (0-4.5); HEMATOCRIT 23.7 % (32.4-45.2); MCH 34.2 pg (25.7-33.7); MCHC 33.7 g/dl (32.0-36.0); MEAN CELL VOLUME 101.5 fl (80-96); MONO % 4.7 % (3.8-10.2); NEUT % 61.5 % (42.8-82.8); PLATELET COUNT 116 K/MM3 (134-434); RBC 2.33 M/mm3 (3.60-5.2); RDW 20.9 % (11.6-15.6); WHITE BLOOD COUNT 3.6 K/mm3 (4.0-10.0)
[2018-12-08 19:46] LABS: ALBUMIN 2.8 g/dl (3.4-5.0); ALK PHOS 158 U/L (45-117); ANION GAP 8 MMOL/L (8-16); BILIRUBIN,TOTAL 0.4 mg/dL (0.2-1); BLOOD UREA NITROGEN 80 mg/dL (7-18); CALCIUM 8.6 mg/dL (8.5-10.1); CHLORIDE 100 mmol/L (98-107); CO2 21 mmol/L (21-32); CREATININE 2.5 mg/dL (0.55-1.3); GLUCOSE,RANDOM 223 mg/dL (74-106); LIPASE 180 U/L (73-393); SGOT/AST 32 U/L (15-37); SGPT/ALT 28 U/L (13-61); SODIUM 129 mmol/L (136-145); TOT PROT 11.8 g/dl (6.4-8.2)
[2018-12-08 19:47] LABS: POTASSIUM 7.3 mmol/L (3.5-5.1)
[2018-12-08] MEDS ORDERED: CALCIUM GLUCONATE 10% - 1,000 MG/10 ML VIAL IVPUSH ONE (20:00)
[2018-12-08] MEDS ORDERED: DEXTROSE 50%-WATER - 25 GM/50 ML VIAL IVPUSH ONE (20:01)
[2018-12-08] MEDS ORDERED: INSULIN REGULAR HUMAN 100 UNITS/ML *VIAL IVPUSH ONE (20:01)
[2018-12-08] MEDS ORDERED: SODIUM POLYSTYRENE SULFONATE 15 GM/60 ML BOTTLE PO ONE (20:02)
[2018-12-08] MEDS ORDERED: CALCIUM GLUCONATE 10% - 1,000 MG/10 ML VIAL ONE (20:09)
[2018-12-08] MEDS ORDERED: DEXTROSE 50%-WATER 25 GM/50 ML DISP.SYRIN ONE (20:09)
[2018-12-08] MEDS ORDERED: SODIUM POLYSTYRENE SULFONATE 15 GM/60 ML BOTTLE ONE (20:09)
[2018-12-08] MEDS ORDERED: INSULIN REGULAR HUMAN 100 UNITS/ML *VIAL ONE (20:10)
[2018-12-08 22:20] LABS: ANISOCYTOSIS 2+; MACROCYTOSIS 1+; PLATELET ESTIMATE SLT DECREASE
--- NOTE | 2018-12-08 23:58 | HP ---
CHIEF COMPLAINT:abdominal pain/ lethargy PCP: HISTORY OF PRESENT ILLNESS: 68 y.o female with PMH of Afib (on coumadin), HTN, HLD, CML, COPD, previous DVTS , chronic back pain presents to the ED with abdominal pain. Patient states that the pain started this AM on her right side and then would spread throughout her entire abdomen- at its worst the pain was an 8/10. She did not take anything for the pain- she denies having any nausea/vomiting/diarrhea or any urinary complaints nor did she have any fevers. She came to the ED because the pain had gotten so severe that she had to come in. she denies any sick contacts or any recent illnesses. ER course was notable for: (1)initial BP was 92/50 after fluids 108/57; HR 48-53 (2)potassium was 7.2; given calcium gluconate, d500, kayexalate, 10 units of insulin (3)ab/pelvis CT done Recent Travel: denies PAST MEDICAL HISTORY: see above PAST SURGICAL HISTORY: lap choley, hernia repair, ERCP with stenting Social History: Smoking:denies Alcohol:denies Drugs: denies Family History: denies Allergies metronidazole [From Flagyl] Allergy (Severe, Verified 12/08/18 18:35) Rash metoprolol Allergy (Intermediate, Verified 12/08/18 18:35) Rash HOME MEDICATIONS: Home Medications Medication Instructions Recorded Albuterol Sulfate 2.5 mg IH Q8H PRN 07/18/18 Ammonium Lactate Lotion 1 applic TP ASDIR 07/18/18 [Lac-Hydrin 12] Ascorbic Acid [Vitamin C -] 500 mg PO DAILY 07/18/18 Gabapentin [Neurontin -] 100 mg PO Q8H 07/18/18 Ipratropium [place] 0.2 mg IH Q8H PRN 07/18/18 L. Acidophilus/Bifid. Animalis 1 each PO TID 07/18/18 [Probiotic 5 Billion Cell Cap] Oxycodone HCl 10 mg PO Q6H PRN 07/18/18 Polyethylene Glycol 3350 [Miralax 17 gm PO TID 07/18/18 255 gm Btl -] Vitamin B Complex 1 tab PO DAILY 07/18/18 Warfarin Na [Coumadin -] 10 mg PO HS 07/18/18 Diltiazem Cd [Cardizem Cd -] 120 mg PO DAILY cap.cd.24h 07/23/18 Docusate Sodium [Colace -] 100 mg PO TID capsule 07/23/18 Levothyroxine [Synthroid -] 25 mcg PO DAILY@0700 tablet 07/23/18 Acetaminophen [Pain Relief] 650 mg PO Q6H PRN 07/29/18 Bisacodyl Suppository [Dulcolax 10 mg RC DAILY PRN 07/29/18 Suppository -] Insulin Lispro [Humalog Kwikpen 0 unit SQ ASDIR 07/29/18 U-100] Mag Hydrox/Al Hydrox/Simeth 30 ml PO Q6H PRN 07/29/18 [Mylanta Oral Suspension -] Pantoprazole Sodium 40 mg PO DAILY 07/29/18 Nystatin Cream [Mycostatin Cream -] 1 applic TP Q6HPO applic 08/03/18 Torsemide [Demadex -] 20 mg PO DAILY tablet 08/03/18 Aa/Hydrolyzed Collagen, Whey [Lps 30 ml PO DAILY 11/14/18 15-30 Liquid] Folic Acid 1 mg PO DAILY 11/14/18 Hydroxyzine HCl 25 mg PO TID 11/14/18 Nilotinib HCl [Tasigna] 300 mg PO BID 11/14/18 Polyvinyl Alcohol [Artificial 1 drop OU QID 11/14/18 Tears] Pyridoxine HCl (B-6) [Vitamin B6 -] 100 mg PO DAILY 11/14/18 Sennosides [Senna Lax] 8.6 mg PO DAILY 11/14/18 REVIEW OF SYSTEMS CONSTITUTIONAL: Absent: fever, chills, diaphoresis, generalized weakness, malaise, loss of appetite, weight change HEENT: Absent: rhinorrhea, nasal congestion, throat pain, throat swelling, difficulty swallowing, mouth swelling, ear pain, eye pain, visual changes CARDIOVASCULAR: Absent: chest pain, syncope, palpitations, irregular heart rate, lightheadedness , peripheral edema RESPIRATORY: Absent: cough, shortness of breath, dyspnea with exertion, orthopnea, wheezing, stridor, hemoptysis GASTROINTESTINAL: Present: abdominal pain Absent: abdominal distension, nausea, vomiting, diarrhea , constipation, melena, hematochezia GENITOURINARY: Absent: dysuria, frequency, urgency, hesitancy, hematuria, flank pain, genital pain MUSCULOSKELETAL: Absent: myalgia, arthralgia, joint swelling, back pain, neck pain SKIN: Absent: rash, itching, pallor HEMATOLOGIC/IMMUNOLOGIC: Absent: easy bleeding, easy bruising, lymphadenopathy, frequent infections ENDOCRINE: Absent: unexplained weight gain, unexplained weight loss, heat intolerance, cold intolerance NEUROLOGIC: Absent: headache, focal weakness or paresthesias, dizziness, unsteady gait, seizure, mental status changes, bladder or bowel incontinence PSYCHIATRIC: Absent: anxiety, depression, suicidal or homicidal ideation, hallucinations. PHYSICAL EXAMINATION Vital Signs - 24 hr 12/08/18 12/08/18 18:32 19:59 Temperature 97.5 F L Pulse Rate 46 L Pulse Rate [ 48 L Apical] Respiratory 18 20 Rate Blood Pressure 92/50 L Blood Pressure 108/57 L [Left Arm] O2 Sat by Pulse 96 99 Oximetry (%) GENERAL: patient is very lethargic, but arousable when need to answer questions ; patient is alert and oriented times three HEAD: Normal with no signs of trauma. EYES: Pupils equal, round and reactive to light, extraocular movements intact, sclera anicteric, conjunctiva clear. No lid lag. EARS, NOSE, THROAT: Ears normal, nares patent, oropharynx clear without exudates. Moist mucous membranes. NECK: Normal range of motion, supple without lymphadenopathy, JVD, or masses. LUNGS: CTA B/L; no rales, rhonchi or wheezing. HEART:bradycardic; s1 s2; no murmurs/rubs/gallops ABDOMEN: soft; non-tender; non-distended +BS . MUSCULOSKELETAL: Normal range of motion at all joints. No bony deformities or tenderness. No CVA tenderness. EXREMITIES: warm;well-perfused; no clubbing/cyanosis or edema NEUROLOGICAL: Cranial nerves II-XII intact. Normal speech. Normal gait. PSYCH: lethargic but arousable SKIN: Warm, dry, normal turgor, no rashes or lesions noted, normal capillary refill. Laboratory Results - last 24 hr 12/08/18 12/08/18 12/08/18 18:56 18:59 19:25 WBC 3.6 L RBC 2.33 L Hgb 8.0 L Hct 23.7 L MCV 101.5 H MCH 34.2 H MCHC 33.7 RDW 20.9 H Plt Count 116 L D MPV 8.0 Absolute Neuts (auto) 2.2 Neutrophils % 61.5 Lymphocytes % 31.0 Monocytes % 4.7 Eosinophils % 2.6 Basophils % 0.2 Nucleated RBC % 0 Hypochromia 2+ Platelet Estimate Slt decrease Platelet Comment No clumping noted Anisocytosis 2+ Microcytosis 1+ Macrocytosis 1+ Sodium 129 L Potassium 7.3 H* Chloride 100 Carbon Dioxide 21 Anion Gap 8 BUN 80 H Creatinine 2.5 H Creat Clearance w eGFR 19.04 Random Glucose 223 H Lactic Acid 1.9 Calcium 8.6 Total Bilirubin 0.4 AST 32 ALT 28 Alkaline Phosphatase 158 H Troponin I < 0.02 Total Protein 11.8 H Albumin 2.8 L Lipase 180 12/08/18 21:39 WBC RBC Hgb Hct MCV MCH MCHC RDW Plt Count MPV Absolute Neuts (auto) Neutrophils % Lymphocytes % Monocytes % Eosinophils % Basophils % Nucleated RBC % Hypochromia Platelet Estimate Platelet Comment Anisocytosis Microcytosis Macrocytosis Sodium Potassium 6.2 H* Chloride Carbon Dioxide Anion Gap cdfBUN Creatinine Creat Clearance w eGFR Random Glucose Lactic Acid Calcium Total Bilirubin AST ALT Alkaline Phosphatase Troponin I Total Protein Albumin Lipase ASSESSMENT/PLAN: 68 y/o female with PMH of HTN, HLDm, afib (on coumadin), CML, hypothyrodisim, previous DVTS, presented to the ED with abdominal pains found to be hyperkalemic and bradycardic on admission #Hyperkalemia on admission K was 7.2- given 10 units insulin, d50 calcium gluconate, 15 kayexalte; repeat 6.5 -will give anothe amp d50, 10 units insulin, 15 kayexalate -repeat K at 4 am in addition to repeat EKG; first 2 EKGS showed no signs of hyperkalemia -full repeat CMP in AM #ASA on CKD patients cr was 2.5 on admission; past few visits show Cr ranging from 1.5-3 -baseline unclear -consider nephro consult -avoid nephrotoxic drugs #Hyperglycemia pateints sugar was elevated on arrival HBA1c was 6.7 ISS BGMS #HTN holding hypertensive meds as patient was hypotensive on admission -NS @75mls/hr -monitor hemodynamics -will need to med rec patient in AM #Afib -c/w coumadin -need to rec other meds #Hypothyroidism c/w synthroid #COPD not in exacerbation #CML patient has been taking tasigna for CML -unclear how long she has been on treatment for -as per EMR; she seemed to have followed in [place] for CML -consider heme consult Problem List - Problem (1) ASA (acute kidney injury) Code(s): N17.9 - ACUTE KIDNEY FAILURE, UNSPECIFIED (2) Hyperkalemia Code(s): E87.5 - HYPERKALEMIA (3) A-fib Code(s): I48.91 - UNSPECIFIED ATRIAL FIBRILLATION Qualifiers: Atrial fibrillation type: chronic Qualified Code(s): I48.2 - Chronic atrial fibrillation (4) Acute kidney injury superimposed on CKD Code(s): N17.9 - ACUTE KIDNEY FAILURE, UNSPECIFIED; N18.9 - CHRONIC KIDNEY DISEASE, UNSPECIFIED Visit type - Emergency Visit Emergency Visit: Yes ED Registration Date: 12/08/18 Care time: The patient presented to the Emergency Department on the above date and was hospitalized for further evaluation of their emergent condition. - New Patient This patient is new to me today: Yes Date on this admission: 12/09/18 - Critical Care Critical Care patient: No
--- NOTE | 2018-12-09 00:23 | PN ---
Teaching Attending Note Name of Resident: Malia Dhaliwal ATTENDING PHYSICIAN STATEMENT I saw and evaluated the patient. I reviewed the resident's note and discussed the case with the resident. I agree with the resident's findings and plan as documented. SUBJECTIVE: This is a 68 year old woman resident of [facility] with a history of HTN , hyperlipidemia, atrial fib, chronic diastolic heart failure, type 2 DM, COPD, hypothyroidism, CML, DVT, chronic back pain who was sent to the ED for evaluation of abdominal pain. The pain was initially right-sided, but became more diffuse. She denies having fever, chills, nausea, dysuria, hematuria, diarrhea, constipation, melena, rectal bleeding. OBJECTIVE: Vital Signs Period Temp Pulse Resp BP Sys/M[place]ado Pulse Ox Last 24 Hr 97.5 F 46-48 18-20 92-108/50-57 96-99 GENERAL: Lethargic but arousable HEART: S1S2, bradycardic LUNGS: Clear ABDOMEN: Soft, non-tender, non-distended, normal BS EXTREMITIES: No edema Laboratory Tests 12/08/18 12/08/18 12/08/18 18:56 18:59 19:25 WBC 3.6 L RBC 2.33 L Hgb 8.0 L Hct 23.7 L MCV 101.5 H MCH 34.2 H MCHC 33.7 RDW 20.9 H Plt Count 116 L D MPV 8.0 Absolute Neuts (auto) 2.2 Neutrophils % 61.5 Lymphocytes % 31.0 Monocytes % 4.7 Eosinophils % 2.6 Basophils % 0.2 Nucleated RBC % 0 Hypochromia 2+ Platelet Estimate Slt decrease Platelet Comment No clumping noted Anisocytosis 2+ Microcytosis 1+ Macrocytosis 1+ Sodium 129 L Potassium 7.3 H* Chloride 100 Carbon Dioxide 21 Anion Gap 8 BUN 80 H Creatinine 2.5 H Creat Clearance w eGFR 19.04 Random Glucose 223 H Lactic Acid 1.9 Calcium 8.6 Total Bilirubin 0.4 AST 32 ALT 28 Alkaline Phosphatase 158 H Troponin I < 0.02 Total Protein 11.8 H Albumin 2.8 L Lipase 180 12/08/18 21:39 WBC RBC Hgb Hct MCV MCH MCHC RDW Plt Count MPV Absolute Neuts (auto) Neutrophils % Lymphocytes % Monocytes % Eosinophils % Basophils % Nucleated RBC % Hypochromia Platelet Estimate Platelet Comment Anisocytosis Microcytosis Macrocytosis Sodium Potassium 6.2 H* Chloride Carbon Dioxide Anion Gap BUN Creatinine Creat Clearance w eGFR Random Glucose Lactic Acid Calcium Total Bilirubin AST ALT Alkaline Phosphatase Troponin I Total Protein Albumin Lipase Home Medications Medication Instructions Recorded Albuterol Sulfate 2.5 mg IH Q8H PRN 07/18/18 Ammonium Lactate Lotion 1 applic TP ASDIR 07/18/18 [Lac-Hydrin 12] Ascorbic Acid [Vitamin C -] 500 mg PO DAILY 07/18/18 Gabapentin [Neurontin -] 100 mg PO Q8H 07/18/18 Ipratropium [place] 0.2 mg IH Q8H PRN 07/18/18 L. Acidophilus/Bifid. Animalis 1 each PO TID 07/18/18 [Probiotic 5 Billion Cell Cap] Oxycodone HCl 10 mg PO Q6H PRN 07/18/18 Polyethylene Glycol 3350 [Miralax 17 gm PO TID 07/18/18 255 gm Btl -] Vitamin B Complex 1 tab PO DAILY 07/18/18 Warfarin Na [Coumadin -] 10 mg PO HS 07/18/18 Diltiazem Cd [Cardizem Cd -] 120 mg PO DAILY cap.cd.24h 07/23/18 Docusate Sodium [Colace -] 100 mg PO TID capsule 07/23/18 Levothyroxine [Synthroid -] 25 mcg PO DAILY@0700 tablet 07/23/18 Acetaminophen [Pain Relief] 650 mg PO Q6H PRN 07/29/18 Bisacodyl Suppository [Dulcolax 10 mg RC DAILY PRN 07/29/18 Suppository -] Insulin Lispro [Humalog Kwikpen 0 unit SQ ASDIR 07/29/18 U-100] Mag Hydrox/Al Hydrox/Simeth 30 ml PO Q6H PRN 07/29/18 [Mylanta Oral Suspension -] Pantoprazole Sodium 40 mg PO DAILY 07/29/18 Nystatin Cream [Mycostatin Cream -] 1 applic TP Q6HPO applic 08/03/18 Torsemide [Demadex -] 20 mg PO DAILY tablet 08/03/18 Aa/Hydrolyzed Collagen, Whey [Lps 30 ml PO DAILY 11/14/18 15-30 Liquid] Folic Acid 1 mg PO DAILY 11/14/18 Hydroxyzine HCl 25 mg PO TID 11/14/18 Nilotinib HCl [Tasigna] 300 mg PO BID 11/14/18 Polyvinyl Alcohol [Artificial 1 drop OU QID 11/14/18 Tears] Pyridoxine HCl (B-6) [Vitamin B6 -] 100 mg PO DAILY 11/14/18 Sennosides [Senna Lax] 8.6 mg PO DAILY 11/14/18 ASSESSMENT AND PLAN: This is a 68 year old woman with a history of HTN, hyperlipidemia, atrial fib, chronic diastolic heart failure, type 2 DM, COPD, hypothyroidism, CML, DVT, chronic back pain who was presented to the ED from [facility] with abdominal pain. 1. Abdominal pain, hyponatremia, acute kidney injury with hyperkalemia, junctional bradycardia, hypotension secondary to dehydration - Admit to telemetry - Hold Cardizem, Torsemide - Check TSH - IV fluid - Regular insulin IV, D50, calcium gluconate, Kayexalate given in ED - Monitor electrolytes, BUN, creatinine 2. Elevated total protein - Likely secondary to dehydration 3. HTN - Hold Cardizem secondary to bradycardia, hypotension - Hold Torsemide secondary to ASA, hypotension 4. Hyperlipidemia - On no medication 5. History of atrial fib - Hold Cardizem secondary to bradycardia, hypotension - Continue Coumadin 6. Chronic diastolic heart failure - Stable - Hold Torsemide secondary to ASA, hypotension 7. Type 2 DM - Fingersticks with Novolog sliding scale 8. COPD - Stable 9. Hypothyroidism - Continue Synthroid - Check TSH 10. CML - On Tasigna 11. Pancytopenia - Possibly secondary to Tasigna - Stable 12. History of DVT 13. Chronic back pain
[2018-12-09] MEDS: SODIUM CHLORIDE 1,000 ML IV SCH ×2 (00:29→23:56)
[2018-12-09 01:07] LABS: ANION GAP 7 MMOL/L (8-16); BLOOD UREA NITROGEN 83 mg/dL (7-18); CALCIUM 8.5 mg/dL (8.5-10.1); CHLORIDE 104 mmol/L (98-107); CO2 20 mmol/L (21-32); CREATININE 2.5 mg/dL (0.55-1.3); GLUCOSE,RANDOM 109 mg/dL (74-106); SODIUM 130 mmol/L (136-145)
[2018-12-09 01:08] LABS: POTASSIUM 6.5 mmol/L (3.5-5.1)
[2018-12-09] MEDS ORDERED: SODIUM POLYSTYRENE SULFONATE 15 GM/60 ML BOTTLE PO ONE (01:40)
[2018-12-09] MEDS ORDERED: DEXTROSE 50%-WATER - 25 GM/50 ML VIAL IVPUSH ONE (01:40)
[2018-12-09] MEDS ORDERED: INSULIN REGULAR HUMAN 100 UNITS/ML *VIAL IVPUSH ONE (01:40)
[2018-12-09] MEDS ORDERED: DEXTROSE 50%-WATER 25 GM/50 ML DISP.SYRIN ONE (01:46)
[2018-12-09] MEDS ORDERED: INSULIN (NOVOLOG) ASPART 100 UNITS/ML 10ML VIAL ONE (01:47)
[2018-12-09] MEDS ORDERED: ALBUTEROL SO4 0.083% IH SOL 2.5 MG/3 ML VIAL.NEB. NEB ONE (01:48)
[2018-12-09] MEDS ORDERED: SODIUM POLYSTYRENE SULFONATE 15 GM/60 ML BOTTLE ONE (01:48)
[2018-12-09] MEDS ORDERED: HEPARIN NA (PORCINE) 5,000 UNITS/ML 1ML VIAL SQ SCH (06:00)
[2018-12-09 06:41] LABS: INR 1.69 (0.83-1.09); PROTHROMBIN TIME (PATIENT) 20.1 SEC (9.7-13.0)
[2018-12-09 06:45] LABS: ALBUMIN 2.3 g/dl (3.4-5.0); ALK PHOS 135 U/L (45-117); ANION GAP 5 MMOL/L (8-16); BILIRUBIN,TOTAL 0.4 mg/dL (0.2-1); BLOOD UREA NITROGEN 76 mg/dL (7-18); CALCIUM 8.2 mg/dL (8.5-10.1); CHLORIDE 107 mmol/L (98-107); CO2 23 mmol/L (21-32); CREATININE 2.2 mg/dL (0.55-1.3); GLUCOSE,RANDOM 50 mg/dL (74-106); MAGNESIUM 2.1 mg/dL (1.8-2.4); PHOSPHOROUS 4.5 mg/dL (2.5-4.9); POTASSIUM 5.3 mmol/L (3.5-5.1); SGOT/AST 22 U/L (15-37); SGPT/ALT 25 U/L (13-61); SODIUM 135 mmol/L (136-145); TOT PROT 10.2 g/dl (6.4-8.2)
[2018-12-09] MEDS: INSULIN SLIDING SCALE (NOVOLOG) 1 VIAL SQ SCH ×4 (07:12→22:08)
[2018-12-09] MEDS ORDERED: BISACODYL 10 MG SUPP.RECT RC PRN (09:24)
[2018-12-09] MEDS ORDERED: MAG HYDROX/AL HYDROX/SIMETH 30 ML UNIT-DOSE CUP PO PRN (09:24)
[2018-12-09] MEDS: FOLIC ACID 1 MG TABLET (FP) PO SCH (10:00)
[2018-12-09] MEDS: PANTOPRAZOLE 40 MG TABLET (FP) PO SCH (10:00)
[2018-12-09] MEDS ORDERED: NILOTINIB HCL 300 MG PO SCH (10:00)
[2018-12-09] MEDS: VITAMIN B COMP W-C 1 EA TABLET PO SCH (10:00)
[2018-12-09] MEDS: AMMONIUM LACTATE 12% LOTION 225 GM BOTTLE TP SCH ×2 (10:00→22:08)
[2018-12-09] MEDS: GABAPENTIN 100 MG CAPSULE (FP) PO SCH ×3 (10:00→22:08)
[2018-12-09] MEDS: ARTIFICIAL TEARS (POLYVINYL ALCOHOL) OPTH DROPS OU SCH ×4 (10:00→22:08)
[2018-12-09] MEDS ORDERED: oxyCODONE HCL 10 MG SUSTAINED ACTING TABLET ONE ×2 (10:13→18:53)
[2018-12-09] MEDS: ASCORBIC ACID 500 MG TABLET (FP) PO SCH (11:00)
[2018-12-09] MEDS: PYRIDOXINE HCL (B-6) 100 MG TABLET PO SCH (11:00)
[2018-12-09] MEDS: SENNOSIDES 8.6MG TABLET (FP) PO SCH (11:24)
--- NOTE | 2018-12-09 12:05 | CON.NEP ---
Consult Consult Specialty:: Nephrology Referred by:: Dr Knox Reason for Consultation:: ASA with Hyperkalemia - History of Present Illness Chief Complaint: Abdominal pain History of Present Illness: Pt is a 68 year old woman from a SNF with h/o HTN, hyperlipidemia, Atrial fib, Chronic diastolic heart failure, type 2 DM, COPD, hypothyroidism, CML, DVT, and chronic back pain that was referred to the ED for evaluation of abdominal pain. While in ED noted to have ASA and hyperkalemia with was medically treated with Kayexalate , IVF, IV Calcium, D50W, and Insulin. As a result her borderline low BP, K and azotemia have improved. At time of my exam pt is c/o RUQ pain where she has a abd wall hernia following a cholecystectomy and mesh that had to be removed in the remote past Pt is a poor historian however she denies any dysuria Adult diaper in place No NSAIDs [place] list of meds from [place] Additional labs remarkable for elevated TP levels and low Alb levels UA not available yet Ct Scan done and results to follow however on my review no hydronephrosis noted unofficially CXR no congestion or effusions EKG showed a junctional rhythm - History Source History Provided By: Patient, Medical Record - Past Medical History [employer]: Yes: Dementia Cardio/Vascular: Yes: HTN, Hyperlipdemia, Murmur, Pulmonary Hypertension Pulmonary: Yes: COPD Gastrointestinal: Yes: Constipation Hepatobiliary: Yes: Cholelithiasis, Cholecystitis, Choledocholithiasis, Other Renal/: Yes: Renal Calculi Musculoskeletal: Yes: Chronic low back pain Endocrine: Yes: Diabetes Mellitus, Hypothyroidism Additional Medical History: Diabetic retinopathy. 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 History of Recent Travel: No Home Medications - Allergies Allergies/Adverse Reactions: Allergies Allergy/AdvReac Type Severity Reaction Status Date / Time metronidazole [From Flagyl] Allergy Severe Rash Verified 12/08/18 18:35 metoprolol Allergy Intermediate Rash Verified 12/08/18 18:35 - Home Medications Home Medications: Ambulatory Orders Albuterol Sulfate 2.5 mg IH Q8H PRN 07/18/18 Ammonium Lactate Lotion [Lac-Hydrin 12] 1 applic TP ASDIR 07/18/18 Ascorbic Acid [Vitamin C -] 500 mg PO DAILY 07/18/18 Gabapentin [Neurontin -] 100 mg PO Q8H 07/18/18 Ipratropium [place] 0.2 mg IH Q8H PRN 07/18/18 L. Acidophilus/Bifid. Animalis [Probiotic 5 Billion Cell Cap] 1 each PO TID Oxycodone HCl 10 mg PO Q6H PRN 07/18/18 Polyethylene Glycol 3350 [Miralax 255 gm Btl -] 17 gm PO TID 07/18/18 Vitamin B Complex 1 tab PO DAILY 07/18/18 Warfarin Na [Coumadin -] 10 mg PO HS 07/18/18 Diltiazem Cd [Cardizem Cd -] 120 mg PO DAILY cap.cd.24h 07/23/18 Docusate Sodium [Colace -] 100 mg PO TID capsule 07/23/18 Levothyroxine [Synthroid -] 25 mcg PO DAILY@0700 tablet 07/23/18 Acetaminophen [Pain Relief] 650 mg PO Q6H PRN 07/29/18 Bisacodyl Suppository [Dulcolax Suppository -] 10 mg RC DAILY PRN 07/29/18 Insulin Lispro [Humalog Kwikpen U-100] 0 unit SQ ASDIR 07/29/18 Mag Hydrox/Al Hydrox/Simeth [Mylanta Oral Suspension -] 30 ml PO Q6H PRN Pantoprazole Sodium 40 mg PO DAILY 07/29/18 Nystatin Cream [Mycostatin Cream -] 1 applic TP Q6HPO applic 08/03/18 Torsemide [Demadex -] 20 mg PO DAILY tablet 08/03/18 Aa/Hydrolyzed Collagen, Whey [Lps 15-30 Liquid] 30 ml PO DAILY 11/14/18 Folic Acid 1 mg PO DAILY 11/14/18 Hydroxyzine HCl 25 mg PO TID 11/14/18 Nilotinib HCl [Tasigna] 300 mg PO BID 11/14/18 Polyvinyl Alcohol [Artificial Tears] 1 drop OU QID 11/14/18 Pyridoxine HCl (B-6) [Vitamin B6 -] 100 mg PO DAILY 11/14/18 Sennosides [Senna Lax] 8.6 mg PO DAILY 11/14/18 Family Disease History - Family Disease History Family Disease History: CA: Father, Mother Nephrology Consult - Height Height: 5 ft 3 in - Weight Weight: 168 lb - BMI Body Mass Index (BMI): 29.7 - Lab Results CBC,BMP: CBC, BMP 12/08/18 18:59 12/09/18 05:30 Laboratory Tests 12/08/18 12/09/18 18:56 05:30 Calcium 8.2 L Phosphorus 4.5 Magnesium 2.1 Total Bilirubin 0.4 0.4 AST 32 22 ALT 28 25 Alkaline Phosphatase 158 H 135 H Troponin I < 0.02 Total Protein 11.8 H 10.2 H Albumin 2.8 L 2.3 L Lipase 180 Anion Gap: Anion Gap Anion Gap 5 MMOL/L (8-16) L 12/09/18 05:30 - Imaging Chest X-ray: Report Reviewed - Physical Examination Vital Signs: Vital Signs Temperature 98.1 F 12/09/18 06:15 Pulse Rate 73 12/09/18 06:15 Respiratory Rate 20 12/09/18 06:15 Blood Pressure 150/71 12/09/18 06:15 O2 Sat by Pulse Oximetry (%) 96 12/09/18 06:15 Constitutional: Yes: No Distress Cardiovascular: Yes: S1, S2. No: JVD Respiratory: Yes: CTA Bilaterally Gastrointestinal: Yes: Soft, Other (Tenderness over the RUQ without rebound) Assessment/Plan Impression ASA with hyperkalemia in pt with relatively low BP on admission now improved. Etiology to be determined and will need to exclude underlying diabetic nephropathy and MM Abdominal pain in RUQ in pt with h/o cholecystectomy HTN Hyperlipidemia Atrial fib HFpEF DM COPD Hypothyroidism CML DVT Plan Await official report of the Ct Scan Continue with IVF as ordered Low K diet UA and urine for Cr and spot Na Urine for Pro/Cr ratio UPEP and SPEP Warfarin as per INR Rpt Labs in am Would repeat the EKG to see if the junctional rhythm has resolved Discussed with the Hospitalist Thank You Will Follow Dr Gonzalez
[2018-12-09] MEDS: POLYETHYLENE GLYCOL 3350 255 GM BTL PO SCH ×2 (14:32→22:08)
[2018-12-09] MEDS: hydrOXYzine HCL 25 MG TABLET (FP) PO SCH ×2 (14:32→22:08)
[2018-12-09] MEDS: DOCUSATE SODIUM 100 MG CAPSULE (FP) PO SCH ×2 (14:32→22:08)
--- NOTE | 2018-12-09 15:41 | PN ---
Progress Note, Physician Chief Complaint: Ms Hernandez complains of abdominal pain that has been present for a few months ( unclear when started but not new). Denies cp and sob. - Current Medication List Current Medications: Active Medications Al Hydroxide/Mg Hydroxide (Mylanta Oral Suspension -) 30 ml PO Q6H PRN PRN Reason: heartburn Artificial Tears (Artificial Tears) 1 drop OU QID [facility] Last Admin: 12/09/18 14:32 Dose: 1 drop Ascorbic Acid (Vitamin C -) 500 mg PO DAILY [facility] Last Admin: 12/09/18 11:00 Dose: 500 mg Bisacodyl (Dulcolax Suppository -) 10 mg RC DAILY PRN PRN Reason: CONSTIPATION Diltiazem HCl (Cardizem Cd -) 120 mg PO DAILY [facility] Last Admin: 12/09/18 10:00 Dose: 120 mg Docusate Sodium (Colace -) 100 mg PO TID [facility] Last Admin: 12/09/18 14:32 Dose: 100 mg Folic Acid (Folic Acid -) 1 mg PO DAILY [facility] Last Admin: 12/09/18 10:00 Dose: 1 mg Gabapentin (Neurontin -) 100 mg PO TID [facility] Last Admin: 12/09/18 14:33 Dose: 100 mg Hydroxyzine HCl (Atarax -) 25 mg PO TID [facility] Last Admin: 12/09/18 14:32 Dose: 25 mg Sodium Chloride (Normal Saline -) 1,000 mls @ 75 mls/hr IV ASDIR [facility] Last Admin: 12/09/18 00:29 Dose: 75 mls/hr Insulin Aspart (Novolog Vial Sliding Scale -) 1 vial SQ [facility]; Protocol Last Admin: 12/09/18 12:26 Dose: Not Given Lactic Acid (Lac-Hydrin 12) 1 applic TP BID [facility] Last Admin: 12/09/18 10:00 Dose: 1 applic Levothyroxine Sodium (Synthroid -) 25 mcg PO DAILY@0700 [facility] Multivit/Ca Carb/B Cmplx/FA/Prenat (Nephro-Majo -) 1 tablet PO DAILY [facility] Last Admin: 12/09/18 10:00 Dose: 1 tablet Non-Formulary Medication (Nilotinib Hcl [Tasigna]) 300 mg PO BID [facility] Oxycodone HCl (Roxicodone -) 10 mg PO Q6H PRN PRN Reason: PAIN 4-6 Pantoprazole Sodium (Protonix -) 40 mg PO DAILY [facility] Last Admin: 12/09/18 10:00 Dose: 40 mg Polyethylene Glycol (Miralax (For Bowel Prep) -) 17 gm PO TID [facility] Last Admin: 12/09/18 14:32 Dose: 17 grams Pyridoxine HCl (Vitamin B6 -) 100 mg PO DAILY [facility] Last Admin: 12/09/18 11:00 Dose: 100 mg Senna (Senna -) 1 tab PO DAILY [facility] Last Admin: 12/09/18 11:24 Dose: 1 tab Warfarin Sodium (Coumadin -) 10 mg PO DAILY@1800 [facility] - Objective Vital Signs: Vital Signs Temperature 36.9 C 12/09/18 10:00 Pulse Rate 74 12/09/18 10:00 Respiratory Rate 16 12/09/18 10:00 Blood Pressure 142/78 12/09/18 10:00 O2 Sat by Pulse Oximetry (%) 99 12/09/18 10:00 Constitutional: Yes: No Distress, Calm, Obese Cardiovascular: Yes: Regular Rate and Rhythm. No: Gallop, Murmur, Rub Respiratory: Yes: Regular, CTA Bilaterally. No: Rales, Rhonchi, Wheezes Gastrointestinal: Yes: Normal Bowel Sounds, Soft. No: Distention, Tenderness Extremities: Yes: Erythema Edema: Yes Edema: LLE: 3+ Labs: CBC, BMP 12/08/18 18:59 12/09/18 05:30 INR, PTT INR 1.69 (0.83-1.09) H 12/09/18 05:30 Problem List - Problems (1) ASA (acute kidney injury) Assessment/Plan: -case d/w Dr Kathleen -continue IVF -monitor for improvement Code(s): N17.9 - ACUTE KIDNEY FAILURE, UNSPECIFIED (2) Hyperkalemia Assessment/Plan: -s/p medical treatment -case d/w nephrology -continue hydration -low K diet -repeat EKG normalized Code(s): E87.5 - HYPERKALEMIA (3) A-fib Assessment/Plan: -currently appears in sinus rhythm on repeat EKG -monitor on telemetry Code(s): I48.91 - UNSPECIFIED ATRIAL FIBRILLATION Qualifiers: Atrial fibrillation type: chronic Qualified Code(s): I48.2 - Chronic atrial fibrillation (4) COPD (chronic obstructive pulmonary disease) Assessment/Plan: -duoneb prn Code(s): J44.9 - CHRONIC OBSTRUCTIVE PULMONARY DISEASE, UNSPECIFIED (5) Constipation Assessment/Plan: -continue bowel regimen -may need to escalate Code(s): K59.00 - CONSTIPATION, UNSPECIFIED (6) Diabetic neuropathy Assessment/Plan: -pain control Code(s): E11.40 - TYPE 2 DIABETES MELLITUS WITH DIABETIC NEUROPATHY, UNSP (7) HTN (hypertension) Assessment/Plan: -controlled -continue home regimen Code(s): I10 - ESSENTIAL (PRIMARY) HYPERTENSION (8) Swelling of lower extremity Assessment/Plan: -chronic -monitor -hold diuretics secondary to ASA Code(s): M79.89 - OTHER SPECIFIED SOFT TISSUE DISORDERS (9) T2DM (type 2 diabetes mellitus) Assessment/Plan: -diabetic diet -FSBS and SSI Code(s): E11.9 - TYPE 2 DIABETES MELLITUS WITHOUT COMPLICATIONS Qualifiers: Diabetes mellitus complication status: with neurologic complications (10) CML (chronic myelocytic leukemia) Assessment/Plan: -on tasigna -will consult hematology to approve -? if protein gap is part of this Code(s): C92.10 - CHRONIC MYELOID LEUK, BCR/ABL-POSITIVE, NOT ACHIEVE REMIS (11) Hypothyroid Assessment/Plan: -continue synthroid Code(s): E03.9 - HYPOTHYROIDISM, UNSPECIFIED
--- NOTE | 2018-12-09 17:49 | EKG ---
Test Reason : Blood Pressure : / mmHG Vent. Rate : 074 BPM Atrial Rate : 074 BPM P-R Int : 140 ms QRS Dur : 088 ms QT Int : 394 ms P-R-T Axes : 001 005 026 degrees QTc Int : 437 ms NORMAL SINUS RHYTHM WITH SINUS ARRHYTHMIA NORMAL ECG WHEN COMPARED WITH ECG OF 09-DEC-2018 07:23, NO SIGNIFICANT CHANGE WAS FOUND Confirmed by AMBER CHEN MD ([id number]) on 12/09/2018 5:49:37 PM Referred By: Anibal PONCE Confirmed By:AMBER CHEN MD
--- NOTE | 2018-12-09 17:56 | EKG ---
Test Reason : Blood Pressure : / mmHG Vent. Rate : 077 BPM Atrial Rate : 077 BPM P-R Int : 146 ms QRS Dur : 088 ms QT Int : 414 ms P-R-T Axes : 051 -06 033 degrees QTc Int : 468 ms NORMAL SINUS RHYTHM WITH SINUS ARRHYTHMIA LOW VOLTAGE QRS CANNOT RULE OUT ANTERIOR INFARCT (CITED ON OR BEFORE 09-DEC-2018) ABNORMAL ECG WHEN COMPARED WITH ECG OF 09-DEC-2018 00:09, SINUS RHYTHM HAS REPLACED JUNCTIONAL RHYTHM VENT. RATE HAS INCREASED BY 30 BPM QUESTIONABLE CHANGE IN INITIAL FORCES OF SEPTAL LEADS Confirmed by AMBER CHEN MD ([id number]) on 12/09/2018 5:56:35 PM Referred By: Confirmed By:AMBER CHEN MD
--- NOTE | 2018-12-09 17:58 | EKG ---
Test Reason : Blood Pressure : / mmHG Vent. Rate : 047 BPM Atrial Rate : 051 BPM P-R Int : 000 ms QRS Dur : 088 ms QT Int : 480 ms P-R-T Axes : 000 035 054 degrees QTc Int : 424 ms JUNCTIONAL RHYTHM SEPTAL INFARCT , AGE UNDETERMINED ABNORMAL ECG WHEN COMPARED WITH ECG OF 08-DEC-2018 21:02, SEPTAL INFARCT IS NOW PRESENT Confirmed by AMBER CHEN MD ([id number]) on 12/09/2018 5:57:52 PM Referred By: Confirmed By:AMBER CHEN MD
--- NOTE | 2018-12-09 18:04 | EKG ---
Test Reason : Blood Pressure : / mmHG Vent. Rate : 046 BPM Atrial Rate : 044 BPM P-R Int : 000 ms QRS Dur : 090 ms QT Int : 474 ms P-R-T Axes : 000 028 027 degrees QTc Int : 414 ms JUNCTIONAL RHYTHM POSSIBLE ANTERIOR INFARCT , AGE UNDETERMINED ABNORMAL ECG WHEN COMPARED WITH ECG OF 14-NOV-2018 20:33, JUNCTIONAL RHYTHM HAS REPLACED SINUS RHYTHM VENT. RATE HAS DECREASED BY 37 BPM NONSPECIFIC T WAVE ABNORMALITY NOW EVIDENT IN ANTERIOR LEADS Confirmed by AMBER CHEN MD ([id number]) on 12/09/2018 6:04:08 PM Referred By: Confirmed By:AMBER CHEN MD
--- NOTE | 2018-12-09 18:05 | EKG ---
Test Reason : Blood Pressure : / mmHG Vent. Rate : 050 BPM Atrial Rate : 150 BPM P-R Int : 000 ms QRS Dur : 086 ms QT Int : 450 ms P-R-T Axes : 000 026 027 degrees QTc Int : 410 ms JUNCTIONAL RHYTHM ABNORMAL ECG WHEN COMPARED WITH ECG OF 08-DEC-2018 19:46, NO SIGNIFICANT CHANGE WAS FOUND Confirmed by AMBER CHEN MD ([id number]) on 12/09/2018 6:05:11 PM Referred By: Confirmed By:AMBER CHEN MD
[2018-12-09] MEDS: WARFARIN NA 10 MG TABLET (FP) PO SCH (18:44)
[2018-12-09] MEDS ORDERED: WARFARIN NA 5 MG TABLET (UD) ONE (18:48)
[2018-12-09] MEDS ORDERED: ALBUTEROL SO4 2.5/IPRATROPIUM 0.5 INH SOL 3 ML VIAL.NEB. NEB PRN (19:01)
[2018-12-09] MEDS ORDERED: DOCUSATE SODIUM 100 MG CAPSULE (FP) PO ONE (21:47)
[2018-12-09] MEDS ORDERED: GABAPENTIN 100 MG CAPSULE (FP) ONE (21:48)
[2018-12-10] MEDS ORDERED: oxyCODONE HCL 5 MG TABLET ONE ×2 (01:47→09:18)
[2018-12-10] MEDS: oxyCODONE HCL 5 MG TABLET PO PRN ×2 (01:51→16:42)
[2018-12-10 06:10] LABS: HEMATOCRIT 20.8 % (32.4-45.2); HEMOGLOBIN 7.1 GM/dL (10.7-15.3); MCH 34.3 pg (25.7-33.7); MCHC 34.3 g/dl (32.0-36.0); MEAN PLT VOLUME 7.3 fl (7.5-11.1); PLATELET COUNT 92 K/MM3 (134-434); RBC 2.08 M/mm3 (3.60-5.2); RDW 20.5 % (11.6-15.6); WHITE BLOOD COUNT 2.1 K/mm3 (4.0-10.0)
[2018-12-10 06:11] LABS: BASO % 0.3 % (0-2.0); EOS % 4.9 % (0-4.5); LYMPH % 32.8 % (8-40); MONO % 4.9 % (3.8-10.2); NEUT % 57.1 % (42.8-82.8)
[2018-12-10] MEDS: POLYETHYLENE GLYCOL 3350 255 GM BTL PO SCH ×3 (06:17→22:24)
[2018-12-10] MEDS: DOCUSATE SODIUM 100 MG CAPSULE (FP) PO SCH ×3 (06:17→22:24)
[2018-12-10] MEDS: hydrOXYzine HCL 25 MG TABLET (FP) PO SCH ×3 (06:17→22:24)
[2018-12-10] MEDS: GABAPENTIN 100 MG CAPSULE (FP) PO SCH ×3 (06:17→22:24)
[2018-12-10] MEDS ORDERED: LEVOTHYROXINE NA 25 MCG TABLET (FP) ONE (06:19)
[2018-12-10] MEDS: LEVOTHYROXINE NA 25 MCG TABLET (FP) PO SCH (06:26)
[2018-12-10] MEDS: INSULIN SLIDING SCALE (NOVOLOG) 1 VIAL SQ SCH ×4 (06:26→22:25)
[2018-12-10 06:40] LABS: ANION GAP 5 MMOL/L (8-16); BLOOD UREA NITROGEN 47 mg/dL (7-18); CALCIUM 7.7 mg/dL (8.5-10.1); CHLORIDE 109 mmol/L (98-107); CO2 26 mmol/L (21-32); CREATININE 1.5 mg/dL (0.55-1.3); GLUCOSE,RANDOM 145 mg/dL (74-106); MAGNESIUM 1.9 mg/dL (1.8-2.4); POTASSIUM 4.6 mmol/L (3.5-5.1); SODIUM 139 mmol/L (136-145)
[2018-12-10 07:10] LABS: RATIO URIN PROTEIN/URIN CREAT 0.86 MG/DL
[2018-12-10 08:50] LABS: INR 1.85 (0.83-1.09)
--- NOTE | 2018-12-10 09:09 | PN ---
Progress Note, Physician Chief Complaint: Ms Hernandez says she is feeling much better today. Says her pain is controlled with her medications. Denies cp, sob, n/v. - Current Medication List Current Medications: Active Medications Al Hydroxide/Mg Hydroxide (Mylanta Oral Suspension -) 30 ml PO Q6H PRN PRN Reason: heartburn Albuterol/Ipratropium (Duoneb -) 1 amp NEB Q4H PRN PRN Reason: SHORTNESS OF BREATH Artificial Tears (Artificial Tears) 1 drop OU QID [facility] Last Admin: 12/09/18 22:08 Dose: 1 drop Ascorbic Acid (Vitamin C -) 500 mg PO DAILY [facility] Last Admin: 12/09/18 11:00 Dose: 500 mg Bisacodyl (Dulcolax Suppository -) 10 mg RC DAILY PRN PRN Reason: CONSTIPATION Diltiazem HCl (Cardizem Cd -) 120 mg PO DAILY [facility] Last Admin: 12/09/18 10:00 Dose: 120 mg Docusate Sodium (Colace -) 100 mg PO TID [facility] Last Admin: 12/10/18 06:17 Dose: 100 mg Folic Acid (Folic Acid -) 1 mg PO DAILY [facility] Last Admin: 12/09/18 10:00 Dose: 1 mg Gabapentin (Neurontin -) 100 mg PO TID [facility] Last Admin: 12/10/18 06:17 Dose: 100 mg Hydroxyzine HCl (Atarax -) 25 mg PO TID [facility] Last Admin: 12/10/18 06:17 Dose: 25 mg Sodium Chloride (Normal Saline -) 1,000 mls @ 75 mls/hr IV ASDIR [facility] Last Admin: 12/09/18 23:56 Dose: 75 mls/hr Insulin Aspart (Novolog Vial Sliding Scale -) 1 vial SQ ACHS [facility]; Protocol Last Admin: 12/10/18 06:26 Dose: Not Given Lactic Acid (Lac-Hydrin 12) 1 applic TP BID [facility] Last Admin: 12/09/18 22:08 Dose: 1 applic Levothyroxine Sodium (Synthroid -) 25 mcg PO DAILY@0700 [facility] Last Admin: 12/10/18 06:26 Dose: 25 mcg Multivit/Ca Carb/B Cmplx/FA/Prenat (Nephro-Majo -) 1 tablet PO DAILY [facility] Last Admin: 12/09/18 10:00 Dose: 1 tablet Non-Formulary Medication (Nilotinib Hcl [Tasigna]) 300 mg PO BID [facility] Oxycodone HCl (Roxicodone -) 10 mg PO Q6H PRN PRN Reason: PAIN 4-6 Last Admin: 12/10/18 01:51 Dose: 10 mg Pantoprazole Sodium (Protonix -) 40 mg PO DAILY [facility] Last Admin: 12/09/18 10:00 Dose: 40 mg Polyethylene Glycol (Miralax (For Bowel Prep) -) 17 gm PO TID [facility] Last Admin: 12/10/18 06:17 Dose: 17 grams Pyridoxine HCl (Vitamin B6 -) 100 mg PO DAILY [facility] Last Admin: 12/09/18 11:00 Dose: 100 mg Senna (Senna -) 1 tab PO DAILY [facility] Last Admin: 12/09/18 11:24 Dose: 1 tab Warfarin Sodium (Coumadin -) 10 mg PO DAILY@1800 [facility] Last Admin: 12/09/18 18:44 Dose: 10 mg - Objective Vital Signs: Vital Signs Temperature 36.8 C 12/10/18 06:06 Pulse Rate 77 12/10/18 06:06 Respiratory Rate 16 12/10/18 07:15 Blood Pressure 148/72 12/10/18 06:06 O2 Sat by Pulse Oximetry (%) 94 L 12/10/18 07:15 Constitutional: Yes: No Distress, Calm, Obese Cardiovascular: Yes: Regular Rate and Rhythm. No: Gallop, Murmur, Rub Respiratory: Yes: Regular, CTA Bilaterally. No: Rales, Rhonchi, Wheezes Gastrointestinal: Yes: Normal Bowel Sounds, Soft. No: Distention, Tenderness Extremities: Yes: Erythema (slight) Edema: Yes Edema: LLE: 3+, RLE: 3+ Labs: CBC, BMP 12/10/18 05:40 12/10/18 05:40 INR, PTT INR 1.85 (0.83-1.09) H 12/10/18 05:40 Problem List - Problems (1) ASA (acute kidney injury) Code(s): N17.9 - ACUTE KIDNEY FAILURE, UNSPECIFIED (2) Hyperkalemia Code(s): E87.5 - HYPERKALEMIA (3) A-fib Code(s): I48.91 - UNSPECIFIED ATRIAL FIBRILLATION Qualifiers: Atrial fibrillation type: chronic Qualified Code(s): I48.2 - Chronic atrial fibrillation (4) COPD (chronic obstructive pulmonary disease) Code(s): J44.9 - CHRONIC OBSTRUCTIVE PULMONARY DISEASE, UNSPECIFIED (5) Constipation Code(s): K59.00 - CONSTIPATION, UNSPECIFIED (6) Diabetic neuropathy Code(s): E11.40 - TYPE 2 DIABETES MELLITUS WITH DIABETIC NEUROPATHY, UNSP (7) HTN (hypertension) Code(s): I10 - ESSENTIAL (PRIMARY) HYPERTENSION (8) Swelling of lower extremity Code(s): M79.89 - OTHER SPECIFIED SOFT TISSUE DISORDERS (9) T2DM (type 2 diabetes mellitus) Code(s): E11.9 - TYPE 2 DIABETES MELLITUS WITHOUT COMPLICATIONS Qualifiers: Diabetes mellitus complication status: with neurologic complications (10) CML (chronic myelocytic leukemia) Code(s): C92.10 - CHRONIC MYELOID LEUK, BCR/ABL-POSITIVE, NOT ACHIEVE REMIS (11) Hypothyroid Code(s): E03.9 - HYPOTHYROIDISM, UNSPECIFIED Assessment/Plan (1) ASA (acute kidney injury) Assessment/Plan: -improving -continue IVF -agree with checking proteins for possible multiple myeloma with protein gap -will d/w Dr Sanchez -may benefit from transfusion if H/H continues to decrease but drop may be secondary to rehydration -continue to hold torsemide Code(s): N17.9 - ACUTE KIDNEY FAILURE, UNSPECIFIED (2) Hyperkalemia Assessment/Plan: -resolved Code(s): E87.5 - HYPERKALEMIA (3) A-fib Assessment/Plan: -currently appears in sinus rhythm on repeat EKG -monitor on telemetry -sounds in sinus rhythm on exam -continue coumadin for anticoagulation Code(s): I48.91 - UNSPECIFIED ATRIAL FIBRILLATION Qualifiers: Atrial fibrillation type: chronic Qualified Code(s): I48.2 - Chronic atrial fibrillation (4) COPD (chronic obstructive pulmonary disease) Assessment/Plan: -duoneb prn Code(s): J44.9 - CHRONIC OBSTRUCTIVE PULMONARY DISEASE, UNSPECIFIED (5) Constipation Assessment/Plan: -continue bowel regimen -may need to escalate Code(s): K59.00 - CONSTIPATION, UNSPECIFIED (6) Diabetic neuropathy Assessment/Plan: -pain control Code(s): E11.40 - TYPE 2 DIABETES MELLITUS WITH DIABETIC NEUROPATHY, UNSP (7) HTN (hypertension) Assessment/Plan: -controlled -continue home regimen Code(s): I10 - ESSENTIAL (PRIMARY) HYPERTENSION (8) Swelling of lower extremity Assessment/Plan: -chronic -monitor -hold diuretics secondary to ASA Code(s): M79.89 - OTHER SPECIFIED SOFT TISSUE DISORDERS (9) T2DM (type 2 diabetes mellitus) Assessment/Plan: -diabetic diet -FSBS and SSI Code(s): E11.9 - TYPE 2 DIABETES MELLITUS WITHOUT COMPLICATIONS Qualifiers: Diabetes mellitus complication status: with neurologic complications (10) CML (chronic myelocytic leukemia) Assessment/Plan: -continue tasigna -hematology consulted since also with protein gap Code(s): C92.10 - CHRONIC MYELOID LEUK, BCR/ABL-POSITIVE, NOT ACHIEVE REMIS (11) Hypothyroid Assessment/Plan: -continue synthroid Code(s): E03.9 - HYPOTHYROIDISM, UNSPECIFIED
[2018-12-10] MEDS: VITAMIN B COMP W-C 1 EA TABLET PO SCH (09:14)
[2018-12-10] MEDS: PANTOPRAZOLE 40 MG TABLET (FP) PO SCH (09:14)
[2018-12-10] MEDS: PYRIDOXINE HCL (B-6) 100 MG TABLET PO SCH (09:14)
[2018-12-10] MEDS: FOLIC ACID 1 MG TABLET (FP) PO SCH (09:14)
[2018-12-10] MEDS: ASCORBIC ACID 500 MG TABLET (FP) PO SCH (09:14)
[2018-12-10] MEDS: SENNOSIDES 8.6MG TABLET (FP) PO SCH (09:14)
[2018-12-10] MEDS: AMMONIUM LACTATE 12% LOTION 225 GM BOTTLE TP SCH ×2 (09:15→23:01)
[2018-12-10] MEDS: ARTIFICIAL TEARS (POLYVINYL ALCOHOL) OPTH DROPS OU SCH ×4 (09:15→22:24)
--- NOTE | 2018-12-10 13:33 | PN ---
Progress Note, Physician History of Present Illness: Pt seen and examined at bedside. She feels that her pain is a little better. She reports history of 2 weeks of loose stool followed by constipation for the last 2 days. She denies shortness of breath. - Current Medication List Current Medications: Active Medications Al Hydroxide/Mg Hydroxide (Mylanta Oral Suspension -) 30 ml PO Q6H PRN PRN Reason: heartburn Albuterol/Ipratropium (Duoneb -) 1 amp NEB Q4H PRN PRN Reason: SHORTNESS OF BREATH Artificial Tears (Artificial Tears) 1 drop OU QID [facility] Last Admin: 12/10/18 09:15 Dose: 1 drop Ascorbic Acid (Vitamin C -) 500 mg PO DAILY [facility] Last Admin: 12/10/18 09:14 Dose: 500 mg Bisacodyl (Dulcolax Suppository -) 10 mg RC DAILY PRN PRN Reason: CONSTIPATION Diltiazem HCl (Cardizem Cd -) 120 mg PO DAILY [facility] Last Admin: 12/10/18 09:14 Dose: 120 mg Docusate Sodium (Colace -) 100 mg PO TID [facility] Last Admin: 12/10/18 06:17 Dose: 100 mg Folic Acid (Folic Acid -) 1 mg PO DAILY [facility] Last Admin: 12/10/18 09:14 Dose: 1 mg Gabapentin (Neurontin -) 100 mg PO TID [facility] Last Admin: 12/10/18 06:17 Dose: 100 mg Hydroxyzine HCl (Atarax -) 25 mg PO TID [facility] Last Admin: 12/10/18 06:17 Dose: 25 mg Sodium Chloride (Normal Saline -) 1,000 mls @ 75 mls/hr IV ASDIR [facility] Last Admin: 12/09/18 23:56 Dose: 75 mls/hr Insulin Aspart (Novolog Vial Sliding Scale -) 1 vial SQ ACHS [facility]; Protocol Last Admin: 12/10/18 11:57 Dose: Not Given Lactic Acid (Lac-Hydrin 12) 1 applic TP BID [facility] Last Admin: 12/10/18 09:15 Dose: 1 applic Levothyroxine Sodium (Synthroid -) 25 mcg PO DAILY@0700 [facility] Last Admin: 12/10/18 06:26 Dose: 25 mcg Multivit/Ca Carb/B Cmplx/FA/Prenat (Nephro-Majo -) 1 tablet PO DAILY [facility] Last Admin: 12/10/18 09:14 Dose: 1 tablet Non-Formulary Medication (Nilotinib Hcl [Tasigna]) 300 mg PO BID [facility] Oxycodone HCl (Roxicodone -) 10 mg PO Q6H PRN PRN Reason: PAIN 4-6 Last Admin: 12/10/18 01:51 Dose: 10 mg Pantoprazole Sodium (Protonix -) 40 mg PO DAILY [facility] Last Admin: 12/10/18 09:14 Dose: 40 mg Polyethylene Glycol (Miralax (For Bowel Prep) -) 17 gm PO TID [facility] Last Admin: 12/10/18 06:17 Dose: 17 grams Pyridoxine HCl (Vitamin B6 -) 100 mg PO DAILY [facility] Last Admin: 12/10/18 09:14 Dose: 100 mg Senna (Senna -) 1 tab PO DAILY [facility] Last Admin: 12/10/18 09:14 Dose: 1 tab Warfarin Sodium (Coumadin -) 10 mg PO DAILY@1800 [facility] Last Admin: 12/09/18 18:44 Dose: 10 mg - Objective Vital Signs: Vital Signs Temperature 98.3 F 12/10/18 06:06 Pulse Rate 82 12/10/18 09:13 Respiratory Rate 18 12/10/18 09:13 Blood Pressure 147/86 12/10/18 09:13 O2 Sat by Pulse Oximetry (%) 95 12/10/18 09:13 Constitutional: Yes: Calm Eyes: Yes: Conjunctiva Clear HENT: Yes: Atraumatic Cardiovascular: Yes: S1, S2 Respiratory: Yes: CTA Bilaterally Gastrointestinal: Yes: Soft, Tenderness, Tenderness, Epigastrium Genitourinary: Yes: WNL Musculoskeletal: Yes: WNL Extremities: Yes: WNL Edema: Yes Edema: LLE: 2+, RLE: 2+ Neurological: Yes: Oriented Psychiatric: Yes: Oriented Labs: CBC, BMP 12/10/18 05:40 12/10/18 05:40 INR, PTT INR 1.85 (0.83-1.09) H 12/10/18 05:40 Problem List - Problems (1) ASA (acute kidney injury) Code(s): N17.9 - ACUTE KIDNEY FAILURE, UNSPECIFIED (2) Hyperkalemia Code(s): E87.5 - HYPERKALEMIA Assessment/Plan Current Medications Generic Name Dose Route Start Last Admin Trade Name Conradoq PRN Reason Stop Dose Admin Al Hydroxide/Mg Hydroxide 30 ml 12/09/18 09:24 Mylanta Oral Suspension - PO Q6H PRN heartburn Albuterol/Ipratropium 1 amp 12/09/18 19:01 Duoneb - NEB Q4H PRN SHORTNESS OF BREATH Artificial Tears 1 drop 12/09/18 10:00 12/10/18 09:15 Artificial Tears OU 1 drop QID [facility] Administration Ascorbic Acid 500 mg 12/09/18 10:00 12/10/18 09:14 Vitamin C - PO 500 mg DAILY [facility] Administration Bisacodyl 10 mg 12/09/18 09:24 Dulcolax Suppository - RC DAILY PRN CONSTIPATION Diltiazem HCl 120 mg 12/09/18 10:00 12/10/18 09:14 Cardizem Cd - PO 120 mg DAILY [facility] Administration Docusate Sodium 100 mg 12/09/18 14:00 12/10/18 06:17 Colace - PO 100 mg TID [facility] Administration Folic Acid 1 mg 12/09/18 10:00 12/10/18 09:14 Folic Acid - PO 1 mg DAILY [facility] Administration Gabapentin 100 mg 12/09/18 09:30 12/10/18 06:17 Neurontin - PO 100 mg TID [facility] Administration Hydroxyzine HCl 25 mg 12/09/18 14:00 12/10/18 06:17 Atarax - PO 25 mg TID [facility] Administration Sodium Chloride 1,000 mls @ 75 mls/hr 12/08/18 23:45 12/09/18 23:56 Normal Saline - IV 75 mls/hr ASDIR [facility] Administration Insulin Aspart 1 vial 12/09/18 07:00 12/10/18 11:57 Novolog Vial Sliding Scale - SQ Not Given ACHS [facility] Protocol Lactic Acid 1 applic 12/09/18 10:00 12/10/18 09:15 Lac-Hydrin 12 TP 1 applic BID [facility] Administration Levothyroxine Sodium 25 mcg 12/10/18 07:00 12/10/18 06:26 Synthroid - PO 25 mcg DAILY@0700 [facility] Administration Multivit/Ca Carb/B Cmplx/FA/Prenat 1 tablet 12/09/18 10:00 12/10/18 09:14 Nephro-Majo - PO 1 tablet DAILY [facility] Administration Non-Formulary Medication 300 mg 12/09/18 10:00 Nilotinib Hcl [Tasigna] PO BID [facility] Oxycodone HCl 10 mg 12/09/18 09:24 12/10/18 01:51 Roxicodone - PO 10 mg Q6H PRN Administration PAIN 4-6 Pantoprazole Sodium 40 mg 12/09/18 10:00 12/10/18 09:14 Protonix - PO 40 mg DAILY [facility] Administration Polyethylene Glycol 17 gm 12/09/18 14:00 12/10/18 06:17 Miralax (For Bowel Prep) - PO 17 grams TID [facility] Administration Pyridoxine HCl 100 mg 12/09/18 10:00 12/10/18 09:14 Vitamin B6 - PO 100 mg DAILY [facility] Administration Senna 1 tab 12/09/18 10:00 12/10/18 09:14 Senna - PO 1 tab DAILY [facility] Administration Warfarin Sodium 10 mg 12/09/18 18:00 12/09/18 18:44 Coumadin - PO 10 mg DAILY@1800 [facility] Administration Laboratory Tests 06/30/17 07/12/17 08/03/18 05:35 05:35 05:50 Sodium Potassium Creatinine 1.9 H Urine PEP Interpret YANELIS M-Chris MARIA ELENA Screen Positive H Free [place] LC, Quant 295.5 H Free Lambda LC, Quant 334.0 H Free [place]/Lambda Ratio 0.88 11/15/18 12/08/18 12/08/18 06:00 18:56 21:39 Sodium Potassium 7.3 H* 6.2 H* Creatinine 1.0 2.5 H Urine PEP Interpret YANELIS M-Chris MARIA ELENA Screen Free [place] LC, Quant Free Lambda LC, Quant Free [place]/Lambda Ratio 12/09/18 12/09/18 12/10/18 00:23 05:30 05:40 Sodium 139 Potassium 6.5 H* 4.6 Creatinine 2.5 H 2.2 H 1.5 H Urine PEP Interpret YANELIS M-Chris MARIA ELENA Screen Free [place] LC, Quant Free Lambda LC, Quant Free [place]/Lambda Ratio 12/10/18 12/10/18 05:40 06:31 Sodium Potassium Creatinine Urine PEP Interpret Pending YANELIS M-Chris Pending MARIA ELENA Screen Free [place] LC, Quant Free Lambda LC, Quant Free [place]/Lambda Ratio Impression 1. ASA 2. anemia 3. hyperkalemia 4. CML 5. hypothyroidism 6. HTN 7. chol 8. CHF 9. COPD 10. a-fib 11. abdominal pain Plan - renal function improving, likely prerenal as she is responding to fluids - potassium is improved - follow up spep - repeat labs in am - will follow Dr Sanchez
--- NOTE | 2018-12-10 16:37 | CONSULT ---
Consultation: REQUESTING PROVIDER: CONSULT REQUEST: We have been asked to medically evaluate this patient for HEME/ ONC. HISTORY OF PRESENT ILLNESS: 68 y/o F w/PMH of Afib (on coumadin), HTN, HLD, CML, COPD, hx of DVTs, hypothyroidism, chronic back pain from [place] presented to the ER w/abdominal pain that started on her R sided and became diffuse and rated as an 8/10 at its worst. No N/V/F/C, diarrhea, dysuria. Was found to be bradycardic and hyperkalemic to 7.3. Treated with kayexelate, calcium gluconate, and insulin. Currently does not report having abdominal pain. Heme consulted for hx of CML and pt reports currently being on Tasigna. Recent Travel: denies PAST MEDICAL HISTORY: Afib (on coumadin), HTN, HLD, CML, COPD, hx of DVTs, hypothyroidism, chronic back pain PAST SURGICAL HISTORY: lap choley, hernia repair, ERCP with stenting Social History: Smoking: quit smoking in October 2013. Alcohol:denies Drugs: denies REVIEW OF SYSTEMS: CONSTITUTIONAL: Absent: fever, chills CARDIOVASCULAR: Absent: chest pain RESPIRATORY: Absent: cough, shortness of breath GASTROINTESTINAL: Absent: abdominal pain, nausea, vomiting, diarrhea, constipation, melena, hematochezia GENITOURINARY: Absent: dysuria, hematuria PHYSICAL EXAMINATION Vital Signs - 24 hr 12/10/18 12/10/18 12/10/18 06:06 07:15 09:13 Temperature 98.3 F Pulse Rate Pulse Rate [ 77 82 Apical] Respiratory 16 18 Rate Blood Pressure Blood Pressure 148/72 147/86 [Left Arm] O2 Sat by Pulse 94 L 94 L 95 Oximetry (%) 12/10/18 12/10/18 15:00 15:20 Temperature 97.8 F Pulse Rate 76 Pulse Rate [ Apical] Respiratory 18 18 Rate Blood Pressure 138/66 Blood Pressure [Left Arm] O2 Sat by Pulse 96 96 Oximetry (%) GENERAL: Awake, alert, in no acute distress. HEAD: Normal with no signs of trauma. EYES: extraocular movements intact, sclera anicteric, conjunctiva clear. LUNGS: CTA B/L HEART: RRR, S1+ S2+ ABDOMEN: soft; non-tender, normoactive B EXREMITIES: warm;well-perfused NEUROLOGICAL: Normal speech. Gait not observed. SKIN: Warm, dry Laboratory Results - last 24 hr 12/09/18 12/09/18 12/10/18 17:41 21:40 05:40 WBC RBC Hgb Hct MCV MCH MCHC RDW Plt Count MPV Absolute Neuts (auto) Neutrophils % Lymphocytes % Monocytes % Eosinophils % Basophils % Nucleated RBC % PT with INR INR Sodium Potassium Chloride Carbon Dioxide Anion Gap BUN Creatinine Creat Clearance w eGFR POC Glucometer 102 137 Random Glucose Calcium Phosphorus Magnesium TSH Cancelled U Random Total Protein Ur Random Sodium Urine Creatinine Protein/Creatinin Ratio 12/10/18 12/10/18 12/10/18 05:40 05:40 05:40 WBC 2.1 L RBC 2.08 L Hgb 7.1 L Hct 20.8 L MCV 100.0 H MCH 34.3 H MCHC 34.3 RDW 20.5 H Plt Count 92 L D MPV 7.3 L Absolute Neuts (auto) 1.2 L Neutrophils % 57.1 Lymphocytes % 32.8 Monocytes % 4.9 Eosinophils % 4.9 H D Basophils % 0.3 Nucleated RBC % 0 PT with INR 22.00 H INR 1.85 H Sodium 139 Potassium 4.6 Chloride 109 H Carbon Dioxide 26 Anion Gap 5 L BUN 47 H Creatinine 1.5 H Creat Clearance w eGFR 34.33 POC Glucometer Random Glucose 145 H Calcium 7.7 L Phosphorus 3.0 Magnesium 1.9 TSH 3.15 U Random Total Protein Ur Random Sodium Urine Creatinine Protein/Creatinin Ratio 12/10/18 12/10/18 12/10/18 06:22 06:31 06:31 WBC RBC Hgb Hct MCV MCH MCHC RDW Plt Count MPV Absolute Neuts (auto) Neutrophils % Lymphocytes % Monocytes % Eosinophils % Basophils % Nucleated RBC % PT with INR INR Sodium Potassium Chloride Carbon Dioxide Anion Gap BUN Creatinine Creat Clearance w eGFR POC Glucometer 123 Random Glucose Calcium Phosphorus Magnesium TSH U Random Total Protein 25.0 H Ur Random Sodium 84 Urine Creatinine 29.0 Protein/Creatinin Ratio 0.860 12/10/18 11:54 WBC RBC Hgb Hct MCV MCH MCHC RDW Plt Count MPV Absolute Neuts (auto) Neutrophils % Lymphocytes % Monocytes % Eosinophils % Basophils % Nucleated RBC % PT with INR INR Sodium Potassium Chloride Carbon Dioxide Anion Gap BUN Creatinine Creat Clearance w eGFR POC Glucometer 137 Random Glucose Calcium Phosphorus Magnesium TSH U Random Total Protein Ur Random Sodium Urine Creatinine Protein/Creatinin Ratio Active Medications Generic Name Dose Route Start Last Admin Trade Name Freq PRN Reason Stop Dose Admin Al Hydroxide/Mg Hydroxide 30 ml 12/09/18 09:24 Mylanta Oral Suspension - PO Q6H PRN heartburn Albuterol/Ipratropium 1 amp 12/09/18 19:01 Duoneb - NEB Q4H PRN SHORTNESS OF BREATH Artificial Tears 1 drop 12/09/18 10:00 12/10/18 15:47 Artificial Tears OU Not Given QID [facility] Ascorbic Acid 500 mg 12/09/18 10:00 12/10/18 09:14 Vitamin C - PO 500 mg DAILY [facility] Administration Bisacodyl 10 mg 12/09/18 09:24 Dulcolax Suppository - RC DAILY PRN CONSTIPATION Diltiazem HCl 120 mg 12/09/18 10:00 12/10/18 09:14 Cardizem Cd - PO 120 mg DAILY [facility] Administration Docusate Sodium 100 mg 12/09/18 14:00 12/10/18 15:46 Colace - PO Not Given TID [facility] Folic Acid 1 mg 12/09/18 10:00 12/10/18 09:14 Folic Acid - PO 1 mg DAILY [facility] Administration Gabapentin 100 mg 12/09/18 09:30 12/10/18 15:47 Neurontin - PO Not Given TID [facility] Hydroxyzine HCl 25 mg 12/09/18 14:00 12/10/18 06:17 Atarax - PO 25 mg TID [facility] Administration Sodium Chloride 1,000 mls @ 75 mls/hr 12/08/18 23:45 12/09/18 23:56 Normal Saline - IV 75 mls/hr ASDIR [facility] Administration Insulin Aspart 1 vial 12/09/18 07:00 12/10/18 11:57 Novolog Vial Sliding Scale - SQ Not Given ACHS [facility] Protocol Lactic Acid 1 applic 12/09/18 10:00 12/10/18 09:15 Lac-Hydrin 12 TP 1 applic BID [facility] Administration Levothyroxine Sodium 25 mcg 12/10/18 07:00 12/10/18 06:26 Synthroid - PO 25 mcg DAILY@0700 [facility] Administration Multivit/Ca Carb/B Cmplx/FA/Prenat 1 tablet 12/09/18 10:00 12/10/18 09:14 Nephro-Majo - PO 1 tablet DAILY [facility] Administration Non-Formulary Medication 300 mg 12/09/18 10:00 Nilotinib Hcl [Tasigna] PO BID [facility] Oxycodone HCl 10 mg 12/09/18 09:24 12/10/18 01:51 Roxicodone - PO 10 mg Q6H PRN Administration PAIN 4-6 Pantoprazole Sodium 40 mg 12/09/18 10:00 12/10/18 09:14 Protonix - PO 40 mg DAILY [facility] Administration Polyethylene Glycol 17 gm 12/09/18 14:00 12/10/18 15:46 Miralax (For Bowel Prep) - PO Not Given TID [facility] Pyridoxine HCl 100 mg 12/09/18 10:00 12/10/18 09:14 Vitamin B6 - PO 100 mg DAILY [facility] Administration Senna 1 tab 12/09/18 10:00 12/10/18 09:14 Senna - PO 1 tab DAILY [facility] Administration Warfarin Sodium 10 mg 12/09/18 18:00 12/09/18 18:44 Coumadin - PO 10 mg DAILY@1800 [facility] Administration ASSESSMENT/PLAN: 68 y/o F w/PMH of Afib (on coumadin), HTN, HLD, CML, COPD, hx of DVTs, hypothyroidism, chronic back pain from [place] presented to the ER w/abdominal pain. Found to be bradycardic and hyperkalemic to 7.3. Heme consulted for history of CML. -CML -c/w tasigna 300 mg bid -pt reports her sister will bring it in -f/u SPEP and light chains -Bradycardia -resolved, continue to monitor -Hyperkalemia -now resolved and WNL Dispo: We will continue to follow the patient. Thank you for this consultative opportunity. Visit type - Emergency Visit Emergency Visit: Yes ED Registration Date: 12/08/18 Care time: The patient presented to the Emergency Department on the above date and was hospitalized for further evaluation of their emergent condition. - New Patient This patient is new to me today: Yes Date on this admission: 12/10/18 - Critical Care Critical Care patient: No
[2018-12-10] MEDS: WARFARIN NA 10 MG TABLET (FP) PO SCH (18:08)
--- NOTE | 2018-12-10 19:40 | PN ---
Physical Exam: SUBJECTIVE: Patient seen and examined. She is complaining of constipation. OBJECTIVE: Vital Signs Period Temp Pulse Resp BP Sys/Machado Pulse Ox Last 24 Hr 97.8 F-98.3 F 70-82 16-18 138-154/66-86 94-96 GENERAL: The patient is awake, alert, and fully oriented, in no acute distress. HEAD: Normal with no signs of trauma. EYES: PERRL, extraocular movements intact. ENT: Oropharynx clear without exudates, moist mucous membranes. NECK: Trachea midline, full range of motion, supple. LUNGS: Breath sounds equal, clear to auscultation bilaterally, no wheezes, no crackles, no accessory muscle use. HEART: Regular rate and rhythm, S1, S2 without murmur, rub or gallop. ABDOMEN: Soft, nontender, nondistended, normoactive bowel sounds. EXTREMITIES: 2+ pulses, warm, 3+ edema, dressing on left mckeon. NEUROLOGICAL: Normal speech, gait not observed. PSYCH: Normal mood, normal affect. SKIN: Warm, dry, normal turgor, no rashes. Laboratory Results - last 24 hr 12/09/18 12/10/18 12/10/18 21:40 05:40 05:40 WBC 2.1 L RBC 2.08 L Hgb 7.1 L Hct 20.8 L MCV 100.0 H MCH 34.3 H MCHC 34.3 RDW 20.5 H Plt Count 92 L D MPV 7.3 L Absolute Neuts (auto) 1.2 L Neutrophils % 57.1 Lymphocytes % 32.8 Monocytes % 4.9 Eosinophils % 4.9 H D Basophils % 0.3 Nucleated RBC % 0 PT with INR INR Sodium Potassium Chloride Carbon Dioxide Anion Gap BUN Creatinine Creat Clearance w eGFR POC Glucometer 137 Random Glucose Calcium Phosphorus Magnesium TSH Cancelled U Random Total Protein Ur Random Sodium Urine Creatinine Protein/Creatinin Ratio 12/10/18 12/10/18 12/10/18 05:40 05:40 06:22 WBC RBC Hgb Hct MCV MCH MCHC RDW Plt Count MPV Absolute Neuts (auto) Neutrophils % Lymphocytes % Monocytes % Eosinophils % Basophils % Nucleated RBC % PT with INR 22.00 H INR 1.85 H Sodium 139 Potassium 4.6 Chloride 109 H Carbon Dioxide 26 Anion Gap 5 L BUN 47 H Creatinine 1.5 H Creat Clearance w eGFR 34.33 POC Glucometer 123 Random Glucose 145 H Calcium 7.7 L Phosphorus 3.0 Magnesium 1.9 TSH 3.15 U Random Total Protein Ur Random Sodium Urine Creatinine Protein/Creatinin Ratio 12/10/18 12/10/18 12/10/18 06:31 06:31 11:54 WBC RBC Hgb Hct MCV MCH MCHC RDW Plt Count MPV Absolute Neuts (auto) Neutrophils % Lymphocytes % Monocytes % Eosinophils % Basophils % Nucleated RBC % PT with INR INR Sodium Potassium Chloride Carbon Dioxide Anion Gap BUN Creatinine Creat Clearance w eGFR POC Glucometer 137 Random Glucose Calcium Phosphorus Magnesium TSH U Random Total Protein 25.0 H Ur Random Sodium 84 Urine Creatinine 29.0 Protein/Creatinin Ratio 0.860 12/10/18 16:36 WBC RBC Hgb Hct MCV MCH MCHC RDW Plt Count MPV Absolute Neuts (auto) Neutrophils % Lymphocytes % Monocytes % Eosinophils % Basophils % Nucleated RBC % PT with INR INR Sodium Potassium Chloride Carbon Dioxide Anion Gap BUN Creatinine Creat Clearance w eGFR POC Glucometer 103 Random Glucose Calcium Phosphorus Magnesium TSH U Random Total Protein Ur Random Sodium Urine Creatinine Protein/Creatinin Ratio Active Medications Generic Name Dose Route Start Last Admin Trade Name Freq PRN Reason Stop Dose Admin Al Hydroxide/Mg Hydroxide 30 ml 12/09/18 09:24 Mylanta Oral Suspension - PO Q6H PRN heartburn Albuterol/Ipratropium 1 amp 12/09/18 19:01 Duoneb - NEB Q4H PRN SHORTNESS OF BREATH Artificial Tears 1 drop 12/09/18 10:00 12/10/18 18:08 Artificial Tears OU Not Given QID [facility] Ascorbic Acid 500 mg 12/09/18 10:00 12/10/18 09:14 Vitamin C - PO 500 mg DAILY [facility] Administration Bisacodyl 10 mg 12/09/18 09:24 Dulcolax Suppository - RC DAILY PRN CONSTIPATION Diltiazem HCl 120 mg 12/09/18 10:00 12/10/18 09:14 Cardizem Cd - PO 120 mg DAILY [facility] Administration Docusate Sodium 100 mg 12/09/18 14:00 12/10/18 15:46 Colace - PO Not Given TID [facility] Folic Acid 1 mg 12/09/18 10:00 12/10/18 09:14 Folic Acid - PO 1 mg DAILY [facility] Administration Gabapentin 100 mg 12/09/18 09:30 12/10/18 15:47 Neurontin - PO Not Given TID [facility] Hydroxyzine HCl 25 mg 12/09/18 14:00 12/10/18 16:37 Atarax - PO Not Given TID [facility] Sodium Chloride 1,000 mls @ 75 mls/hr 12/08/18 23:45 12/09/18 23:56 Normal Saline - IV 75 mls/hr ASDIR [facility] Administration Insulin Aspart 1 vial 12/09/18 07:00 12/10/18 16:38 Novolog Vial Sliding Scale - SQ Not Given ACHS [facility] Protocol Lactic Acid 1 applic 12/09/18 10:00 12/10/18 09:15 Lac-Hydrin 12 TP 1 applic BID [facility] Administration Levothyroxine Sodium 25 mcg 12/10/18 07:00 12/10/18 06:26 Synthroid - PO 25 mcg DAILY@0700 [facility] Administration Multivit/Ca Carb/B Cmplx/FA/Prenat 1 tablet 12/09/18 10:00 12/10/18 09:14 Nephro-Majo - PO 1 tablet DAILY [facility] Administration Non-Formulary Medication 300 mg 12/09/18 10:00 Nilotinib Hcl [Tasigna] PO BID [facility] Oxycodone HCl 10 mg 12/09/18 09:24 12/10/18 16:42 Roxicodone - PO 10 mg Q6H PRN Administration PAIN 4-6 Pantoprazole Sodium 40 mg 12/09/18 10:00 12/10/18 09:14 Protonix - PO 40 mg DAILY [facility] Administration Polyethylene Glycol 17 gm 12/09/18 14:00 12/10/18 15:46 Miralax (For Bowel Prep) - PO Not Given TID [facility] Pyridoxine HCl 100 mg 12/09/18 10:00 12/10/18 09:14 Vitamin B6 - PO 100 mg DAILY [facility] Administration Senna 1 tab 12/09/18 10:00 12/10/18 09:14 Senna - PO 1 tab DAILY [facility] Administration Warfarin Sodium 10 mg 12/09/18 18:00 12/10/18 18:08 Coumadin - PO 10 mg DAILY@1800 [facility] Administration ASSESSMENT/PLAN: 68 y/o female with PMH of HTN, HLDm, afib (on coumadin), CML, hypothyrodisim, previous DVTS, presented to the ED with abdominal pains found to be hyperkalemic and bradycardic. ASA -continue IVF -monitor -f/u nephrology recommendation -IVF NS at 75 cc/hr Hyperkalemia -s/p medical treatment -continue hydration -low K diet -repeat EKG normalized A.fib -currently appears in sinus rhythm on repeat EKG -monitor on telemetry -coumadin 10 mg qd and dilitiazem 120 mg qd COPD -duoneb prn Constipation -continue bowel regimen -will try Miralax TID Diabetic neuropathy -pain control, Gabapentin HTN -controlled -continue home regimen Swelling of lower extremities -chronic T2DM -diabetic diet -ISS, BGM ACHS CML -on tasigna -hem onc consulted Hypothyroid -continue synthroid F/E/N: IVF/no changes/diabetic diet DVT PPX: coumadin Dispo: telemetry Problem List - Problems (1) ASA (acute kidney injury) Code(s): N17.9 - ACUTE KIDNEY FAILURE, UNSPECIFIED (2) Hyperkalemia Code(s): E87.5 - HYPERKALEMIA (3) A-fib Code(s): I48.91 - UNSPECIFIED ATRIAL FIBRILLATION Qualifiers: Atrial fibrillation type: chronic Qualified Code(s): I48.2 - Chronic atrial fibrillation (4) MARIA ELENA positive Code(s): R76.8 - OTHER SPECIFIED ABNORMAL IMMUNOLOGICAL FINDINGS IN SERUM (5) Abscess of left lower extremity Code(s): L02.416 - CUTANEOUS ABSCESS OF LEFT LOWER LIMB (6) Acute kidney injury superimposed on CKD Code(s): N17.9 - ACUTE KIDNEY FAILURE, UNSPECIFIED; N18.9 - CHRONIC KIDNEY DISEASE, UNSPECIFIED (7) Acute renal insufficiency Code(s): N28.9 - DISORDER OF KIDNEY AND URETER, UNSPECIFIED (8) Altered mental status, unspecified Code(s): R41.82 - ALTERED MENTAL STATUS, UNSPECIFIED (9) Anemia due to GI blood loss Code(s): D50.0 - IRON DEFICIENCY ANEMIA SECONDARY TO BLOOD LOSS (CHRONIC) (10) Atrial fibrillation with RVR Code(s): I48.91 - UNSPECIFIED ATRIAL FIBRILLATION (11) COPD (chronic obstructive pulmonary disease) Code(s): J44.9 - CHRONIC OBSTRUCTIVE PULMONARY DISEASE, UNSPECIFIED (12) Cellulitis Code(s): L03.90 - CELLULITIS, UNSPECIFIED Qualifiers: Site of cellulitis: extremity Site of cellulitis of extremity: lower extremity Laterality: unspecified laterality Qualified Code(s): L03.119 - Cellulitis of unspecified part of limb (13) Chronic anemia Code(s): D64.9 - ANEMIA, UNSPECIFIED (14) Constipation Code(s): K59.00 - CONSTIPATION, UNSPECIFIED (15) Diabetic neuropathy Code(s): E11.40 - TYPE 2 DIABETES MELLITUS WITH DIABETIC NEUROPATHY, UNSP (16) Diabetic retinopathy associated with controlled type 2 diabetes mellitus Code(s): E11.319 - TYPE 2 DIABETES W UNSP DIABETIC RTNOP W/O MACULAR EDEMA (17) Diarrhea Code(s): R19.7 - DIARRHEA, UNSPECIFIED (18) Diverticula of colon Code(s): K57.30 - DVRTCLOS OF LG INT W/O PERFORATION OR ABSCESS W/O BLEEDING (19) Drug induced rash with eosinophilia and systemic symptoms Code(s): L27.0 - GEN SKIN ERUPTION DUE TO DRUGS AND MEDS TAKEN INTERNALLY; D72.1 - EOSINOPHILIA; T50.905A - ADVERSE EFFECT OF UNSP DRUG/MEDS/BIOL SUBST, INIT (20) Family history of GI malignancy Code(s): Z80.0 - FAMILY HISTORY OF MALIGNANT NEOPLASM OF DIGESTIVE ORGANS (21) Fecal impaction in rectum Code(s): K56.41 - FECAL IMPACTION (22) GI bleed Code(s): K92.2 - GASTROINTESTINAL HEMORRHAGE, UNSPECIFIED (23) Groin rash Code(s): R21 - RASH AND OTHER NONSPECIFIC SKIN ERUPTION (24) HTN (hypertension) Code(s): I10 - ESSENTIAL (PRIMARY) HYPERTENSION (25) History of ERCP Code(s): Z98.890 - OTHER SPECIFIED POSTPROCEDURAL STATES (26) Hx of acute pancreatitis Code(s): Z87.19 - PERSONAL HISTORY OF OTHER DISEASES OF THE DIGESTIVE SYSTEM (27) Hypokalemia Code(s): E87.6 - HYPOKALEMIA (28) Hypoxia Code(s): R09.02 - HYPOXEMIA (29) Incisional hernia of anterior abdominal wall without obstruction or gangrene Code(s): K43.2 - INCISIONAL HERNIA WITHOUT OBSTRUCTION OR GANGRENE (30) Lymphedema Code(s): I89.0 - LYMPHEDEMA, NOT ELSEWHERE CLASSIFIED (31) Occult blood in stools Code(s): R19.5 - OTHER FECAL ABNORMALITIES (32) Post ERCP bleeding Code(s): K91.840 - POSTPROC HEMOR OF A DGSTV SYS ORG FOL A DGSTV SYS PROCEDURE (33) Puncture wound of left knee without foreign body Code(s): S81.032A - PUNCTURE WOUND WITHOUT FOREIGN BODY, LEFT KNEE, INIT ENCNTR Qualifiers: Encounter type: initial encounter Qualified Code(s): S81.032A - Puncture wound without foreign body, left knee, initial encounter (34) Sepsis Code(s): A41.9 - SEPSIS, UNSPECIFIED ORGANISM Qualifiers: Sepsis type: sepsis due to unspecified organism Qualified Code(s): A41.9 - Sepsis, unspecified organism (35) Supratherapeutic INR Code(s): R79.1 - ABNORMAL COAGULATION PROFILE (36) Swelling of lower extremity Code(s): M79.89 - OTHER SPECIFIED SOFT TISSUE DISORDERS (37) T2DM (type 2 diabetes mellitus) Code(s): E11.9 - TYPE 2 DIABETES MELLITUS WITHOUT COMPLICATIONS Qualifiers: Diabetes mellitus complication status: with neurologic complications (38) T2DM (type 2 diabetes mellitus) Code(s): E11.9 - TYPE 2 DIABETES MELLITUS WITHOUT COMPLICATIONS Qualifiers: Diabetes mellitus complication detail: with unspecified neuropathy (39) Toxic metabolic encephalopathy Code(s): G92 - TOXIC ENCEPHALOPATHY (40) Type 2 diabetes mellitus with other skin ulcer Code(s): E11.622 - TYPE 2 DIABETES MELLITUS WITH OTHER SKIN ULCER; L98.499 - NON -PRESSURE CHRONIC ULCER OF SKIN OF SITES W UNSP SEVERITY (41) UTI (urinary tract infection) Code(s): N39.0 - URINARY TRACT INFECTION, SITE NOT SPECIFIED Qualifiers: Urinary tract infection type: acute cystitis Hematuria presence: without hematuria Qualified Code(s): N30.00 - Acute cystitis without hematuria (42) Ulcer of left lower extremity Code(s): L97.929 - NON-PRS CHRONIC ULC UNSP PRT OF L LOW LEG W UNSP SEVERITY Qualifiers: Non-pressure ulcer stage: limited to breakdown of skin Qualified Code(s): L97.921 - Non-pressure chronic ulcer of unspecified part of left lower leg limited to breakdown of skin (43) Abnormal LFTs Code(s): R79.89 - OTHER SPECIFIED ABNORMAL FINDINGS OF BLOOD CHEMISTRY (44) Acute respiratory failure Code(s): J96.00 - ACUTE RESPIRATORY FAILURE, UNSP W HYPOXIA OR HYPERCAPNIA Qualifiers: Respiratory failure complication: hypoxia Qualified Code(s): J96.01 - Acute respiratory failure with hypoxia (45) Anemia Code(s): D64.9 - ANEMIA, UNSPECIFIED Qualifiers: Anemia type: other cause Other causes of anemia: chronic disease, other Qualified Code(s): D63.8 - Anemia in other chronic diseases classified elsewhere (46) CHF (congestive heart failure) Code(s): I50.9 - HEART FAILURE, UNSPECIFIED (47) CML (chronic myelocytic leukemia) Code(s): C92.10 - CHRONIC MYELOID LEUK, BCR/ABL-POSITIVE, NOT ACHIEVE REMIS (48) COPD (chronic obstructive pulmonary disease) Code(s): J44.9 - CHRONIC OBSTRUCTIVE PULMONARY DISEASE, UNSPECIFIED (49) Cellulitis of leg, left Code(s): L03.116 - CELLULITIS OF LEFT LOWER LIMB (50) Diabetes Code(s): E11.9 - TYPE 2 DIABETES MELLITUS WITHOUT COMPLICATIONS (51) Diabetic foot ulcer Code(s): E11.621 - TYPE 2 DIABETES MELLITUS WITH FOOT ULCER; L97.509 - NON- PRESSURE CHRONIC ULCER OTH PRT UNSP FOOT W UNSP SEVERITY Qualifiers: Diabetic foot ulcer location: heel Diabetes mellitus type: type 2 Laterality: right Non-pressure ulcer stage: with necrosis of muscle Qualified Code(s): E11.621 - Type 2 diabetes mellitus with foot ulcer (52) Heel ulcer due to DM Code(s): E11.621 - TYPE 2 DIABETES MELLITUS WITH FOOT ULCER; L97.409 - NON-PRS CHRONIC ULCER OF UNSP HEEL AND MIDFOOT W UNSP SEVERT Qualifiers: Diabetes mellitus type: type 2 Laterality: left Non-pressure ulcer stage : with fat layer exposed Qualified Code(s): E11.621 - Type 2 diabetes mellitus with foot ulcer; L97.422 - Non-pressure chronic ulcer of left heel and midfoot with fat layer exposed; L97.422 - Non-pressure chronic ulcer of left heel and midfoot with fat layer exposed; L97.422 - Non-pressure chronic ulcer of left heel and midfoot with fat layer exposed; L97.422 - Non-pressure chronic ulcer of left heel and midfoot with fat layer exposed (53) Hyperglycemia Code(s): R73.9 - HYPERGLYCEMIA, UNSPECIFIED (54) Hyperlipidemia Code(s): E78.5 - HYPERLIPIDEMIA, UNSPECIFIED (55) Hypertension Code(s): I10 - ESSENTIAL (PRIMARY) HYPERTENSION (56) Hypothyroid Code(s): E03.9 - HYPOTHYROIDISM, UNSPECIFIED (57) Osteomyelitis of foot Code(s): M86.9 - OSTEOMYELITIS, UNSPECIFIED (58) Right knee pain Code(s): M25.561 - PAIN IN RIGHT KNEE (59) Thrombocytopenia Code(s): D69.6 - THROMBOCYTOPENIA, UNSPECIFIED Visit type - Emergency Visit Emergency Visit: Yes ED Registration Date: 12/08/18 Care time: The patient presented to the Emergency Department on the above date and was hospitalized for further evaluation of their emergent condition. - New Patient This patient is new to me today: Yes Date on this admission: 12/10/18 - Critical Care Critical Care patient: No
[2018-12-10] MEDS: SODIUM CHLORIDE 1,000 ML IV SCH (23:01)
--- NOTE | 2018-12-10 23:13 | PN ---
Teaching Attending Note Name of Resident: Lino Baker ATTENDING PHYSICIAN STATEMENT I saw and evaluated the patient. I reviewed the resident's note and discussed the case with the resident. I agree with the resident's findings and plan as documented. ASSESSMENT AND PLAN: 68 y/o F w/PMH of Afib (on coumadin), HTN, HLD, CML, COPD, hx of DVTs, hypothyroidism, chronic back pain from NH presented to the ER w/abdominal pain. Found to be bradycardic and hyperkalemic to 7.3. Heme consulted for history of CML. -CML In presmed olecular remission --will repeat bcr;abl On nilotinib--patient to get home med Pancytopenia--marrow suppression fro nilotinib?/ transfuse for hgb <7 Left sided adominal pain -- 3 weeks s/p recent admission to [facility] for capsule endoscopy judith request gi consult
[2018-12-11] MEDS: oxyCODONE HCL 5 MG TABLET PO PRN ×3 (02:16→21:43)
[2018-12-11] MEDS: DOCUSATE SODIUM 100 MG CAPSULE (FP) PO SCH ×3 (06:46→21:38)
[2018-12-11] MEDS: INSULIN SLIDING SCALE (NOVOLOG) 1 VIAL SQ SCH ×4 (06:46→21:38)
[2018-12-11] MEDS: POLYETHYLENE GLYCOL 3350 255 GM BTL PO SCH ×3 (06:46→21:38)
[2018-12-11] MEDS: hydrOXYzine HCL 25 MG TABLET (FP) PO SCH ×3 (06:46→21:39)
[2018-12-11] MEDS: GABAPENTIN 100 MG CAPSULE (FP) PO SCH ×3 (06:46→21:39)
[2018-12-11] MEDS: LEVOTHYROXINE NA 25 MCG TABLET (FP) PO SCH (06:48)
[2018-12-11 07:41] LABS: BASO % 0.3 % (0-2.0); EOS % 3.8 % (0-4.5); HEMATOCRIT 20.3 % (32.4-45.2); HEMOGLOBIN 7.1 GM/dL (10.7-15.3); LYMPH % 34.3 % (8-40); MCH 34.5 pg (25.7-33.7); MCHC 35.2 g/dl (32.0-36.0); MEAN CELL VOLUME 98.2 fl (80-96); MEAN PLT VOLUME 7.1 fl (7.5-11.1); MONO % 5.3 % (3.8-10.2); NEUT % 56.3 % (42.8-82.8); PLATELET COUNT 88 K/MM3 (134-434); RBC 2.07 M/mm3 (3.60-5.2); RDW 20.5 % (11.6-15.6); WHITE BLOOD COUNT 2.2 K/mm3 (4.0-10.0)
[2018-12-11 08:16] LABS: ALBUMIN 2.3 g/dl (3.4-5.0); ALK PHOS 131 U/L (45-117); ANION GAP 6 MMOL/L (8-16); BILIRUBIN,TOTAL 0.3 mg/dL (0.2-1); BLOOD UREA NITROGEN 25 mg/dL (7-18); CHLORIDE 109 mmol/L (98-107); CO2 25 mmol/L (21-32); CREATININE 0.9 mg/dL (0.55-1.3); GLUCOSE,RANDOM 102 mg/dL (74-106); MAGNESIUM 1.6 mg/dL (1.8-2.4); POTASSIUM 4.5 mmol/L (3.5-5.1); SGOT/AST 17 U/L (15-37); SGPT/ALT 18 U/L (13-61); SODIUM 140 mmol/L (136-145)
[2018-12-11 09:57] LABS: INR 2.56 (0.83-1.09); PROTHROMBIN TIME (PATIENT) 30.5 SEC (9.7-13.0)
[2018-12-11] MEDS: PANTOPRAZOLE 40 MG TABLET (FP) PO SCH ×2 (10:02→21:38)
[2018-12-11] MEDS: SENNOSIDES 8.6MG TABLET (FP) PO SCH (10:02)
[2018-12-11] MEDS: ASCORBIC ACID 500 MG TABLET (FP) PO SCH (10:02)
[2018-12-11] MEDS: VITAMIN B COMP W-C 1 EA TABLET PO SCH (10:02)
[2018-12-11] MEDS: FOLIC ACID 1 MG TABLET (FP) PO SCH (10:02)
[2018-12-11] MEDS: AMMONIUM LACTATE 12% LOTION 225 GM BOTTLE TP SCH ×2 (10:03→21:41)
[2018-12-11] MEDS: PYRIDOXINE HCL (B-6) 100 MG TABLET PO SCH (10:03)
[2018-12-11] MEDS: ARTIFICIAL TEARS (POLYVINYL ALCOHOL) OPTH DROPS OU SCH ×3 (10:04→21:41)
[2018-12-11] MEDS ORDERED: MINERAL OIL ENEMA 133 ML ENEMA PR ONE (11:37)
[2018-12-11] MEDS: MAGNESIUM OXIDE 400 MG TABLET (FP) PO ONE ×2 (13:47→13:49)
--- NOTE | 2018-12-11 14:07 | PN ---
Physical Exam: SUBJECTIVE: Patient seen and examined at bedside. OBJECTIVE: Vital Signs Period Temp Pulse Resp BP Sys/Machado Pulse Ox Last 24 Hr 97.8 F-98.3 F 68-79 18-20 138-176/66-78 96-98 GENERAL: Awake, alert, in no acute distress. HEAD: Normal with no signs of trauma. EYES: extraocular movements intact, sclera anicteric, conjunctiva clear. LUNGS: CTA B/L HEART: RRR, S1+ S2+ ABDOMEN: soft; non-tender, normoactive B EXREMITIES: warm;well-perfused NEUROLOGICAL: Normal speech. Gait not observed. SKIN: Warm, dry Laboratory Results - last 24 hr 12/10/18 12/11/18 12/11/18 16:36 06:44 06:50 WBC 2.2 L RBC 2.07 L Hgb 7.1 L Hct 20.3 L MCV 98.2 H MCH 34.5 H MCHC 35.2 RDW 20.5 H Plt Count 88 L MPV 7.1 L Absolute Neuts (auto) 1.3 L Neutrophils % 56.3 Lymphocytes % 34.3 Monocytes % 5.3 Eosinophils % 3.8 Basophils % 0.3 Nucleated RBC % 0 PT with INR INR Sodium Potassium Chloride Carbon Dioxide Anion Gap BUN Creatinine Creat Clearance w eGFR POC Glucometer 103 98 Random Glucose Calcium Phosphorus Magnesium Total Bilirubin AST ALT Alkaline Phosphatase Total Protein Albumin 12/11/18 12/11/18 12/11/18 06:50 09:00 11:11 WBC RBC Hgb Hct MCV MCH MCHC RDW Plt Count MPV Absolute Neuts (auto) Neutrophils % Lymphocytes % Monocytes % Eosinophils % Basophils % Nucleated RBC % PT with INR 30.50 H INR 2.56 H Sodium 140 Potassium 4.5 Chloride 109 H Carbon Dioxide 25 Anion Gap 6 L BUN 25 H Creatinine 0.9 Creat Clearance w eGFR 61.90 POC Glucometer 149 Random Glucose 102 Calcium 8.0 L Phosphorus 3.0 Magnesium 1.6 L Total Bilirubin 0.3 AST 17 ALT 18 Alkaline Phosphatase 131 H Total Protein 10.0 H Albumin 2.3 L Active Medications Generic Name Dose Route Start Last Admin Trade Name Freq PRN Reason Stop Dose Admin Al Hydroxide/Mg Hydroxide 30 ml 12/09/18 09:24 12/11/18 13:43 Mylanta Oral Suspension - PO 30 ml Q6H PRN Administration heartburn Albuterol/Ipratropium 1 amp 12/09/18 19:01 Duoneb - NEB Q4H PRN SHORTNESS OF BREATH Artificial Tears 1 drop 12/09/18 10:00 12/11/18 13:48 Artificial Tears OU 1 drop QID [facility] Administration Ascorbic Acid 500 mg 12/09/18 10:00 12/11/18 10:02 Vitamin C - PO 500 mg DAILY [facility] Administration Bisacodyl 10 mg 12/09/18 09:24 Dulcolax Suppository - RC DAILY PRN CONSTIPATION Diltiazem HCl 120 mg 12/09/18 10:00 12/11/18 10:02 Cardizem Cd - PO 120 mg DAILY [facility] Administration Docusate Sodium 100 mg 12/09/18 14:00 12/11/18 13:41 Colace - PO 100 mg TID [facility] Administration Folic Acid 1 mg 12/09/18 10:00 12/11/18 10:02 Folic Acid - PO 1 mg DAILY [facility] Administration Gabapentin 100 mg 12/09/18 09:30 12/11/18 13:41 Neurontin - PO 100 mg TID [facility] Administration Hydroxyzine HCl 25 mg 12/09/18 14:00 12/11/18 13:41 Atarax - PO 25 mg TID [facility] Administration Sodium Chloride 1,000 mls @ 75 mls/hr 12/08/18 23:45 12/10/18 23:01 Normal Saline - IV Not Given ASDIR [facility] Insulin Aspart 1 vial 12/09/18 07:00 12/11/18 11:57 Novolog Vial Sliding Scale - SQ Not Given ACHS [facility] Protocol Lactic Acid 1 applic 12/09/18 10:00 12/11/18 10:03 Lac-Hydrin 12 TP 1 applic BID [facility] Administration Levothyroxine Sodium 25 mcg 12/10/18 07:00 12/11/18 06:48 Synthroid - PO 25 mcg DAILY@0700 [facility] Administration Magnesium Oxide 800 mg 12/11/18 14:00 12/11/18 13:49 Mag-Ox - PO 12/11/18 14:01 Not Given ONCE ONE Multivit/Ca Carb/B Cmplx/FA/Prenat 1 tablet 12/09/18 10:00 12/11/18 10:02 Nephro-Majo - PO 1 tablet DAILY [facility] Administration Non-Formulary Medication 300 mg 12/09/18 10:00 Nilotinib Hcl [Tasigna] PO BID [facility] Oxycodone HCl 10 mg 12/09/18 09:24 12/11/18 13:51 Roxicodone - PO 10 mg Q6H PRN Administration PAIN 4-6 Pantoprazole Sodium 40 mg 12/09/18 10:00 12/11/18 10:02 Protonix - PO 40 mg DAILY [facility] Administration Polyethylene Glycol 17 gm 12/09/18 14:00 12/11/18 06:46 Miralax (For Bowel Prep) - PO 17 grams TID [facility] Administration Pyridoxine HCl 100 mg 12/09/18 10:00 12/11/18 10:03 Vitamin B6 - PO 100 mg DAILY [facility] Administration Senna 1 tab 12/09/18 10:00 12/11/18 10:02 Senna - PO 1 tab DAILY [facility] Administration Warfarin Sodium 10 mg 12/09/18 18:00 12/10/18 18:08 Coumadin - PO 10 mg DAILY@1800 [facility] Administration ASSESSMENT/PLAN: 68 y/o F w/PMH of Afib (on coumadin), HTN, HLD, CML, COPD, hx of DVTs, hypothyroidism, chronic back pain from NH presented to the ER w/abdominal pain. Found to be bradycardic and hyperkalemic to 7.3. Heme consulted for history of CML. -CML -will hold tasigna currently with low leukocytes -Elevated protein gap -will work up with SPEP, quant immunoglobulins, serum and urine immunofixation, serum and urine fK/fL light chains, [id number], ESR, LDH to check for underlying causes. -Pancytopenia -Transfuse in AM, type and screen ordered now. -Monitor CBC -may be secondary to tasigna (myelosupression) -Bradycardia -resolved, continue to monitor -Hyperkalemia -now resolved and WNL Dispo: We will continue to follow the patient. Thank you for this consultative opportunity. Visit type - Emergency Visit Emergency Visit: Yes ED Registration Date: 12/08/18 Care time: The patient presented to the Emergency Department on the above date and was hospitalized for further evaluation of their emergent condition. - New Patient This patient is new to me today: No - Critical Care Critical Care patient: No
--- NOTE | 2018-12-11 14:41 | PN ---
Progress Note, Physician History of Present Illness: Pt seen and examined at bedside. She is awake and alert. She complains of constipation. She was given meds for constipation. - Current Medication List Current Medications: Active Medications Al Hydroxide/Mg Hydroxide (Mylanta Oral Suspension -) 30 ml PO Q6H PRN PRN Reason: heartburn Last Admin: 12/11/18 13:43 Dose: 30 ml Albuterol/Ipratropium (Duoneb -) 1 amp NEB Q4H PRN PRN Reason: SHORTNESS OF BREATH Artificial Tears (Artificial Tears) 1 drop OU QID [facility] Last Admin: 12/11/18 13:48 Dose: 1 drop Ascorbic Acid (Vitamin C -) 500 mg PO DAILY [facility] Last Admin: 12/11/18 10:02 Dose: 500 mg Bisacodyl (Dulcolax Suppository -) 10 mg RC DAILY PRN PRN Reason: CONSTIPATION Diltiazem HCl (Cardizem Cd -) 120 mg PO DAILY [facility] Last Admin: 12/11/18 10:02 Dose: 120 mg Docusate Sodium (Colace -) 100 mg PO TID [facility] Last Admin: 12/11/18 13:41 Dose: 100 mg Folic Acid (Folic Acid -) 1 mg PO DAILY [facility] Last Admin: 12/11/18 10:02 Dose: 1 mg Gabapentin (Neurontin -) 100 mg PO TID [facility] Last Admin: 12/11/18 13:41 Dose: 100 mg Hydroxyzine HCl (Atarax -) 25 mg PO TID [facility] Last Admin: 12/11/18 13:41 Dose: 25 mg Sodium Chloride (Normal Saline -) 1,000 mls @ 75 mls/hr IV ASDIR [facility] Last Admin: 12/10/18 23:01 Dose: Not Given Insulin Aspart (Novolog Vial Sliding Scale -) 1 vial SQ ACHS [facility]; Protocol Last Admin: 12/11/18 11:57 Dose: Not Given Lactic Acid (Lac-Hydrin 12) 1 applic TP BID [facility] Last Admin: 12/11/18 10:03 Dose: 1 applic Levothyroxine Sodium (Synthroid -) 25 mcg PO DAILY@0700 [facility] Last Admin: 12/11/18 06:48 Dose: 25 mcg Multivit/Ca Carb/B Cmplx/FA/Prenat (Nephro-Majo -) 1 tablet PO DAILY [facility] Last Admin: 12/11/18 10:02 Dose: 1 tablet Non-Formulary Medication (Nilotinib Hcl [Tasigna]) 300 mg PO BID [facility] Oxycodone HCl (Roxicodone -) 10 mg PO Q6H PRN PRN Reason: PAIN 4-6 Last Admin: 12/11/18 13:51 Dose: 10 mg Pantoprazole Sodium (Protonix -) 40 mg PO DAILY [facility] Last Admin: 12/11/18 10:02 Dose: 40 mg Polyethylene Glycol (Miralax (For Bowel Prep) -) 17 gm PO TID [facility] Last Admin: 12/11/18 06:46 Dose: 17 grams Pyridoxine HCl (Vitamin B6 -) 100 mg PO DAILY [facility] Last Admin: 12/11/18 10:03 Dose: 100 mg Senna (Senna -) 1 tab PO DAILY [facility] Last Admin: 12/11/18 10:02 Dose: 1 tab Warfarin Sodium (Coumadin -) 10 mg PO DAILY@1800 [facility] Last Admin: 12/10/18 18:08 Dose: 10 mg - Objective Vital Signs: Vital Signs Temperature 98.1 F 12/11/18 08:39 Pulse Rate 75 12/11/18 08:39 Respiratory Rate 20 12/11/18 08:43 Blood Pressure 156/68 12/11/18 08:39 O2 Sat by Pulse Oximetry (%) 98 12/11/18 08:43 Constitutional: Yes: Calm Eyes: Yes: Conjunctiva Clear HENT: Yes: Atraumatic Neck: Yes: Supple Cardiovascular: Yes: S1, S2 Respiratory: Yes: CTA Bilaterally Gastrointestinal: Yes: Soft Genitourinary: Yes: WNL Musculoskeletal: Yes: WNL Edema: Yes Edema: LLE: 1+, RLE: 1+ Integumentary: Yes: Venous Stasis Changes Neurological: Yes: Oriented Psychiatric: Yes: Oriented Labs: CBC, BMP 12/11/18 06:50 12/11/18 06:50 INR, PTT INR 2.56 (0.83-1.09) H 12/11/18 09:00 Problem List - Problems (1) ASA (acute kidney injury) Code(s): N17.9 - ACUTE KIDNEY FAILURE, UNSPECIFIED (2) Hyperkalemia Code(s): E87.5 - HYPERKALEMIA Assessment/Plan Current Medications Generic Name Dose Route Start Last Admin Trade Name Santhosh PRN Reason Stop Dose Admin Al Hydroxide/Mg Hydroxide 30 ml 12/09/18 09:24 12/11/18 13:43 Mylanta Oral Suspension - PO 30 ml Q6H PRN Administration heartburn Albuterol/Ipratropium 1 amp 12/09/18 19:01 Duoneb - NEB Q4H PRN SHORTNESS OF BREATH Artificial Tears 1 drop 12/09/18 10:00 12/11/18 13:48 Artificial Tears OU 1 drop QID JOVITA Administration Ascorbic Acid 500 mg 12/09/18 10:00 12/11/18 10:02 Vitamin C - PO 500 mg DAILY [facility] Administration Bisacodyl 10 mg 12/09/18 09:24 Dulcolax Suppository - RC DAILY PRN CONSTIPATION Diltiazem HCl 120 mg 12/09/18 10:00 12/11/18 10:02 Cardizem Cd - PO 120 mg DAILY [facility] Administration Docusate Sodium 100 mg 12/09/18 14:00 12/11/18 13:41 Colace - PO 100 mg TID JOVITA Administration Folic Acid 1 mg 12/09/18 10:00 12/11/18 10:02 Folic Acid - PO 1 mg DAILY JOVITA Administration Gabapentin 100 mg 12/09/18 09:30 12/11/18 13:41 Neurontin - PO 100 mg TID [facility] Administration Hydroxyzine HCl 25 mg 12/09/18 14:00 12/11/18 13:41 Atarax - PO 25 mg TID JOVITA Administration Sodium Chloride 1,000 mls @ 75 mls/hr 12/08/18 23:45 12/10/18 23:01 Normal Saline - IV Not Given ASDIR [facility] Insulin Aspart 1 vial 12/09/18 07:00 12/11/18 11:57 Novolog Vial Sliding Scale - SQ Not Given ACHS [facility] Protocol Lactic Acid 1 applic 12/09/18 10:00 12/11/18 10:03 Lac-Hydrin 12 TP 1 applic BID JOVITA Administration Levothyroxine Sodium 25 mcg 12/10/18 07:00 12/11/18 06:48 Synthroid - PO 25 mcg DAILY@0700 [facility] Administration Multivit/Ca Carb/B Cmplx/FA/Prenat 1 tablet 12/09/18 10:00 12/11/18 10:02 Nephro-Majo - PO 1 tablet DAILY JOVITA Administration Non-Formulary Medication 300 mg 12/09/18 10:00 Nilotinib Hcl [Tasigna] PO BID [facility] Oxycodone HCl 10 mg 12/09/18 09:24 12/11/18 13:51 Roxicodone - PO 10 mg Q6H PRN Administration PAIN 4-6 Pantoprazole Sodium 40 mg 12/09/18 10:00 12/11/18 10:02 Protonix - PO 40 mg DAILY [facility] Administration Polyethylene Glycol 17 gm 12/09/18 14:00 12/11/18 06:46 Miralax (For Bowel Prep) - PO 17 grams TID [facility] Administration Pyridoxine HCl 100 mg 12/09/18 10:00 12/11/18 10:03 Vitamin B6 - PO 100 mg DAILY [facility] Administration Senna 1 tab 12/09/18 10:00 12/11/18 10:02 Senna - PO 1 tab DAILY [facility] Administration Warfarin Sodium 10 mg 12/09/18 18:00 12/10/18 18:08 Coumadin - PO 10 mg DAILY@1800 JOVITA Administration Laboratory Tests 12/11/18 06:50 Total Protein 10.0 H Impression 1. ASA 2. anemia 3. hyperkalemia 4. CML 5. hypothyroidism 6. HTN 7. chol 8. CHF 9. COPD 10. a-fib 11. abdominal pain Plan - renal function is improving - change fluids to 1/2 ns and decrease rate - repeat labs in am - follow spep - monitor potassium - follow up spep Dr Sanchez
--- NOTE | 2018-12-11 15:37 | CON.GI ---
Consult Consult Specialty:: Gastroenterology Referred by:: Dr. Garcia Reason for Consultation:: abdominal pain - History of Present Illness Chief Complaint: RUQ pain History of Present Illness: 68F presents with worsening of a chronic RUQ pain that was associated with hyperkalemia and Cr 2.5 ( baseline 1.5). The RUQ pain is aggravated by eating and whenever she uses her abdominal muscles to get up and bend over. No vomiting. I have previously consulted for anemia and occult bleeding on coumadin. She had an EGD and a colonoscopy on 06/23/17 which revealed an antral gastritis and mild diverticulosis in the distal half of her colon. I referred her for capsule endoscopy with Dr Leeann Baltazar at [facility]. The first capsule got hung up and the battery before the capsule transverse her GI tract. She then an endoscopically placed capsule endoscopy which revealed a small AVM in the proximal small bowel. Piper denies any overt bleeding but has had worsening of her chronic constipation. Piper had an ERCP, sphincterotomy and CBD extraction by me in 03/17 complicated by a sphincterotomy bleed. The stent and residual stone was removed in 05/18. 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: Yes: Dementia Cardio/Vascular: Yes: HTN, Hyperlipdemia, Murmur, Pulmonary Hypertension, Other (peripheral vascular disease with leg ulcers and right SFA atherectomy) Pulmonary: Yes: COPD Gastrointestinal: Yes: Constipation, Diverticulosis, GI Bleed (chronic small bowel vascular ectasia bleeding, post sphincterotomy bleed 03/17), Pancreatitis ( biliary pancreatitis03/17), Other (chronic GI bleeding due to proximal small bowel vascular ectasia or ectasias) Hepatobiliary: Yes: Cholelithiasis, Cholecystitis, Choledocholithiasis (03/17 biliary pancreatitis requiring ERCP,sphincteorotomy, stenitng and stone extraction), Other Renal/: Yes: Renal Calculi ...: No Heme/Onc: Yes: Anemia (transfusion requirinig due to chronic GI bleeding (small bowel vascular ectasia) and CML ), Cancer (CML) Musculoskeletal: Yes: Chronic low back pain (sciatica due to lumbar disc disease ) Endocrine: Yes: Diabetes Mellitus, Hypothyroidism Additional Medical History: Diabetic retinopathy. 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 Place of : [facility] History of Recent Travel: No Home Medications - Allergies Allergies/Adverse Reactions: Allergies Allergy/AdvReac Type Severity Reaction Status Date / Time metronidazole [From Flagyl] Allergy Severe Rash Verified 12/08/18 18:35 metoprolol Allergy Intermediate Rash Verified 12/08/18 18:35 - Home Medications Home Medications: Ambulatory Orders Albuterol Sulfate 2.5 mg IH Q8H PRN 07/18/18 Ammonium Lactate Lotion [Lac-Hydrin 12] 1 applic TP ASDIR 07/18/18 Ascorbic Acid [Vitamin C -] 500 mg PO DAILY 07/18/18 Gabapentin [Neurontin -] 100 mg PO Q8H 07/18/18 Ipratropium [place] 0.2 mg IH Q8H PRN 07/18/18 L. Acidophilus/Bifid. Animalis [Probiotic 5 Billion Cell Cap] 1 each PO TID Oxycodone HCl 10 mg PO Q6H PRN 07/18/18 Polyethylene Glycol 3350 [Miralax 255 gm Btl -] 17 gm PO TID 07/18/18 Vitamin B Complex 1 tab PO DAILY 07/18/18 Warfarin Na [Coumadin -] 10 mg PO HS 07/18/18 Diltiazem Cd [Cardizem Cd -] 120 mg PO DAILY cap.cd.24h 07/23/18 Docusate Sodium [Colace -] 100 mg PO TID capsule 07/23/18 Levothyroxine [Synthroid -] 25 mcg PO DAILY@0700 tablet 07/23/18 Acetaminophen [Pain Relief] 650 mg PO Q6H PRN 07/29/18 Bisacodyl Suppository [Dulcolax Suppository -] 10 mg RC DAILY PRN 07/29/18 Insulin Lispro [Humalog Kwikpen U-100] 0 unit SQ ASDIR 07/29/18 Mag Hydrox/Al Hydrox/Simeth [Mylanta Oral Suspension -] 30 ml PO Q6H PRN Pantoprazole Sodium 40 mg PO DAILY 07/29/18 Nystatin Cream [Mycostatin Cream -] 1 applic TP Q6HPO applic 08/03/18 Torsemide [Demadex -] 20 mg PO DAILY tablet 08/03/18 Aa/Hydrolyzed Collagen, Whey [Lps 15-30 Liquid] 30 ml PO DAILY 11/14/18 Folic Acid 1 mg PO DAILY 11/14/18 Hydroxyzine HCl 25 mg PO TID 11/14/18 Nilotinib HCl [Tasigna] 300 mg PO BID 11/14/18 Polyvinyl Alcohol [Artificial Tears] 1 drop OU QID 11/14/18 Pyridoxine HCl (B-6) [Vitamin B6 -] 100 mg PO DAILY 11/14/18 Sennosides [Senna Lax] 8.6 mg PO DAILY 11/14/18 Family Disease History - Family Disease History Family Disease History: CA: Father ( 69 liver cancer), Mother ( 68 stomach cancer) Review of Systems - Review of Systems Constitutional: reports: Weakness Eyes: reports: Other (legally blind) HENT: reports: No Symptoms Neck: reports: No Symptoms Cardiovascular: reports: Palpitations Respiratory: reports: Exercise Intolerance Gastrointestinal: reports: Abdominal Pain, Constipation Musculoskeletal: reports: Back Pain Integumentary: reports: Other (chornic leg ulcers) Neurological: reports: Numbness, Parasthesia Physical Exam-GI Vital Signs: Vital Signs Temperature 98.1 F 12/11/18 08:39 Pulse Rate 75 12/11/18 08:39 Respiratory Rate 20 12/11/18 08:43 Blood Pressure 156/68 12/11/18 08:39 O2 Sat by Pulse Oximetry (%) 98 12/11/18 08:43 CBC,CMP WBC 2.2 K/mm3 (4.0-10.0) L 12/11/18 06:50 RBC 2.07 M/mm3 (3.60-5.2) L 12/11/18 06:50 Hgb 7.1 GM/dL (10.7-15.3) L 12/11/18 06:50 Hct 20.3 % (32.4-45.2) L 12/11/18 06:50 MCV 98.2 fl (80-96) H 12/11/18 06:50 MCH 34.5 pg (25.7-33.7) H 12/11/18 06:50 MCHC 35.2 g/dl (32.0-36.0) 12/11/18 06:50 RDW 20.5 % (11.6-15.6) H 12/11/18 06:50 Plt Count 88 K/MM3 (134-434) L 12/11/18 06:50 MPV 7.1 fl (7.5-11.1) L 12/11/18 06:50 Absolute Neuts (auto) 1.3 K/mm3 (1.5-8.0) L 12/11/18 06:50 Neutrophils % 56.3 % (42.8-82.8) 12/11/18 06:50 Lymphocytes % 34.3 % (8-40) 12/11/18 06:50 Monocytes % 5.3 % (3.8-10.2) 12/11/18 06:50 Eosinophils % 3.8 % (0-4.5) 12/11/18 06:50 Basophils % 0.3 % (0-2.0) 12/11/18 06:50 Nucleated RBC % 0 % (0-0) 12/11/18 06:50 Hypochromia 2+ 12/08/18 18:59 Platelet Estimate Slt decrease 12/08/18 18:59 Platelet Comment No clumping noted 12/08/18 18:59 Anisocytosis 2+ 12/08/18 18:59 Microcytosis 1+ 12/08/18 18:59 Macrocytosis 1+ 12/08/18 18:59 Sodium 140 mmol/L (136-145) 12/11/18 06:50 Potassium 4.5 mmol/L (3.5-5.1) 12/11/18 06:50 Chloride 109 mmol/L (98-107) H 12/11/18 06:50 Carbon Dioxide 25 mmol/L (21-32) 12/11/18 06:50 Anion Gap 6 MMOL/L (8-16) L 12/11/18 06:50 BUN 25 mg/dL (7-18) H 12/11/18 06:50 Creatinine 0.9 mg/dL (0.55-1.3) 12/11/18 06:50 Creat Clearance w eGFR 61.90 (>60) 12/11/18 06:50 POC Glucometer 149 UNITS (80-120) 12/11/18 11:11 Random Glucose 102 mg/dL (74-106) 12/11/18 06:50 Lactic Acid 1.9 mmol/L (0.4-2.0) 12/08/18 19:25 Calcium 8.0 mg/dL (8.5-10.1) L 12/11/18 06:50 Phosphorus 3.0 mg/dL (2.5-4.9) 12/11/18 06:50 Magnesium 1.6 mg/dL (1.8-2.4) L 12/11/18 06:50 Total Bilirubin 0.3 mg/dL (0.2-1) 12/11/18 06:50 AST 17 U/L (15-37) 12/11/18 06:50 ALT 18 U/L (13-61) 12/11/18 06:50 Alkaline Phosphatase 131 U/L (45-117) H 12/11/18 06:50 Troponin I < 0.02 ng/ml (0.00-0.05) 12/08/18 18:56 Total Protein 10.0 g/dl (6.4-8.2) H 12/11/18 06:50 Albumin 2.3 g/dl (3.4-5.0) L 12/11/18 06:50 Lipase 180 U/L (73-393) 12/08/18 18:56 TSH 3.15 uIU/ml (0.358-3.74) 12/10/18 05:40 Current Medications Generic Name Dose Route Start Last Admin Trade Name Freq PRN Reason Stop Dose Admin Al Hydroxide/Mg Hydroxide 30 ml 12/09/18 09:24 12/11/18 13:43 Mylanta Oral Suspension - PO 30 ml Q6H PRN Administration heartburn Albuterol/Ipratropium 1 amp 12/09/18 19:01 Duoneb - NEB Q4H PRN SHORTNESS OF BREATH Artificial Tears 1 drop 12/09/18 10:00 12/11/18 13:48 Artificial Tears OU 1 drop QID JOVITA Administration Ascorbic Acid 500 mg 12/09/18 10:00 12/11/18 10:02 Vitamin C - PO 500 mg DAILY JOVITA Administration Bisacodyl 10 mg 12/09/18 09:24 Dulcolax Suppository - RC DAILY PRN CONSTIPATION Diltiazem HCl 120 mg 12/09/18 10:00 12/11/18 10:02 Cardizem Cd - PO 120 mg DAILY JOVITA Administration Docusate Sodium 100 mg 12/09/18 14:00 12/11/18 13:41 Colace - PO 100 mg TID JOVITA Administration Folic Acid 1 mg 12/09/18 10:00 12/11/18 10:02 Folic Acid - PO 1 mg DAILY JOVITA Administration Gabapentin 100 mg 12/09/18 09:30 12/11/18 13:41 Neurontin - PO 100 mg TID JOVITA Administration Hydroxyzine HCl 25 mg 12/09/18 14:00 12/11/18 13:41 Atarax - PO 25 mg TID JOVITA Administration Sodium Chloride 1,000 mls @ 42 mls/hr 12/11/18 14:45 1/2 Normal Saline IV ASDIR [facility] Insulin Aspart 1 vial 12/09/18 07:00 12/11/18 11:57 Novolog Vial Sliding Scale - SQ Not Given ACHS [facility] Protocol Lactic Acid 1 applic 12/09/18 10:00 12/11/18 10:03 Lac-Hydrin 12 TP 1 applic BID [facility] Administration Levothyroxine Sodium 25 mcg 12/10/18 07:00 12/11/18 06:48 Synthroid - PO 25 mcg DAILY@0700 J[facility] Administration Multivit/Ca Carb/B Cmplx/FA/Prenat 1 tablet 12/09/18 10:00 12/11/18 10:02 Nephro-Majo - PO 1 tablet DAILY [facility] Administration Non-Formulary Medication 300 mg 12/09/18 10:00 Nilotinib Hcl [Tasigna] PO BID J[facility] Oxycodone HCl 10 mg 12/09/18 09:24 12/11/18 13:51 Roxicodone - PO 10 mg Q6H PRN Administration PAIN 4-6 Pantoprazole Sodium 40 mg 12/09/18 10:00 12/11/18 10:02 Protonix - PO 40 mg DAILY JOVITA Administration Polyethylene Glycol 17 gm 12/09/18 14:00 12/11/18 06:46 Miralax (For Bowel Prep) - PO 17 grams TID [facility] Administration Pyridoxine HCl 100 mg 12/09/18 10:00 12/11/18 10:03 Vitamin B6 - PO 100 mg DAILY J[facility] Administration Senna 1 tab 12/09/18 10:00 12/11/18 10:02 Senna - PO 1 tab DAILY [facility] Administration Warfarin Sodium 10 mg 12/09/18 18:00 12/10/18 18:08 Coumadin - PO 10 mg DAILY@1800 J[facility] Administration Constitutional: Yes: Well Nourished, Calm Eyes: Yes: Conjunctiva Clear HENT: Yes: Atraumatic Neck: Yes: Supple Cardiovascular: Yes: Regular Rate and Rhythm, Murmur (2/6 ANN at LLSB) Respiratory: Yes: CTA Bilaterally Gastrointestinal Inspection: Yes: Hernia (right lateral RUQ inisional hernia), Scars (overlapping oblique & transverse RUQ inicsions with tender lateral incisional hernia) ...Auscultate: Yes: Normoactive Bowel Sounds ...Palpate: Yes: Soft, Tenderness (over right lateral RUQ inisional hernia, no peritonel signs) ...Percussion: Yes: Tympanitic ...Rectal Exam: Yes: Guaiac Positive (soft brown stongly guaiac positive stool , no masses), Sphincter Tone Normal Edema: Yes Edema: LLE: 1+, RLE: 1+ Integumentary: Yes: Other (lower extremity ulcers) Neurological: Yes: Alert Labs: CBC, BMP 12/11/18 06:50 12/11/18 06:50 INR, PTT INR 2.56 (0.83-1.09) H 12/11/18 09:00 Laboratory Tests 03/09/12 05/24/14 05/09/15 18:30 05:45 17:05 Hgb 12.9 9.3 L 10.3 L D 11/21/15 04/16/16 04/21/17 07:30 06:00 07:30 Hgb 10.8 7.6 L 6.8 L* D 06/01/17 07/19/18 08/03/18 01:28 07:10 05:50 Hgb 6.2 L* D 8.6 L 7.0 L 12/10/18 12/11/18 05:40 06:50 Hgb 7.1 L 7.1 L Imaging - Results Cat Scan: Report Reviewed ( Final Report CT ABDOMEN & PELVIS CT W/O CONTR Show Printer-Friendly Version Patient Name: Piper Hernandez : 1950 ID: [id number] Study Date: 08-Dec-2018 20:50 Heribertocarisa Mejia Name: PIPER HERNANDEZ DEPARTMENT OF RADIOLOGY Phys: Alivia Coats RESIDENT : 1950 Age: 68 Sex: F [facility] Acct: [id number] Loc: [address] Exam Date: 12/08/18 Status: [place] [address] Unit Number: [id number] ACCESSION # : [id number] EXAM#: TYPE/EXAM: RESULT: [id number] CT/ABDOMEN PELVIS CT W/O CONTR Abdominal pain. CT scan of the abdomen pelvis following a small amount of oral contrast intake. Coronal and sagittal reformatted images were obtained There are mild atelectatic changes in the right lung base. Otherwise, included lower lung appears unremarkable. The heart is within normal limits in size without evidence of pericardial effusion. Annular calcification of the mitral valve and likely calcification of partially included aortic valve is present. The liver is enlarged measuring 22 cm in craniocaudal length. Patient is status post cholecystectomy. There is evidence of normal. Within the central intrahepatic bile ducts. Common bile duct is within normal limits in size. The spleen is within normal limits in size with vascular calcifications in its hilum. Pancreas and both adrenal glands appear unremarkable. There are questionable tiny nonobstructing bilateral renal stones with vascular calcifications in the renal hilum. Both kidneys appear otherwise unremarkable. Partially distended stomach limiting evaluation of its wall. There is no evidence of small bowel obstruction. Normal-appearing terminal ileum. Moderate amount of fecal residue in the colon without gross wall thickening. Normal size uterus with likely a calcified fibroid on the right measuring 1.7 cm. Partially distended urinary bladder with diffuse thickening of its wall and intraluminal air. Perirectal and pericecal fat are clear. Normal size of the abdominal aorta down through its bifurcation with dense arteriosclerotic calcifications, mainly distally and at the bifurcation. Mild dextroscoliosis of the lumbar spine with marked degenerative disc disease at L2-L3 level. There is also marked degenerative narrowing of L4-L5 anterolisthesis extent L5-S1 intravertebral disc space. Impression: Status post cholecystectomy. Pneumobilia. Partially distended urinary bladder with diffuse thickening of its wall, intraluminal air and surrounding extraluminal air pockets for which clinical correlation is recommended to determine further evaluation and follow-up. Significant degenerative disc disease in the lumbar spine. A preliminary report was forwarded by the [employer]haw[employer] service, [employer]. Reported By: Chele Colon MD 12/09 1238 Technologist: Janae Johnson Transcribed Date/Time: 12/09/18 1238 Class 1 Owner Operator: Chele Colon Printed Date/Time: By: Signed by: Chele Colon Signed on: 09-Dec-2018 12:39) Problem List - Problems (1) Incisional hernia of anterior abdominal wall without obstruction or gangrene Assessment/Plan: Piper's current source of pain is her RUQ incisional hernia which does not appear compromised but merits a surgical opinion Code(s): K43.2 - INCISIONAL HERNIA WITHOUT OBSTRUCTION OR GANGRENE (2) Vascular ectasia of small intestine Assessment/Plan: I believe her transfusion requiring anemia reflect indolent blood loss from small bowel vascular ectasias aggravated by anticoagulation with coumadin. If the anticoagulation is mandated only by her atrial fibrillation perhaps a Watchman procedure should be considered. Code(s): K63.9 - DISEASE OF INTESTINE, UNSPECIFIED (3) Chronic anemia Assessment/Plan: I believe her transfusion requiring anemia reflect indolent blood loss from small bowel vascular ectasias aggravated by anticoagulation with coumadin. If the anticoagulation is mandated only by her atrial fibrillation perhaps a Watchman procedure should be considered. Code(s): D64.9 - ANEMIA, UNSPECIFIED (4) Constipation Assessment/Plan: I believe that her constipation and impacted feces contributed to the pain and hernia bulging. Continue Miralax Code(s): K59.00 - CONSTIPATION, UNSPECIFIED (5) Pneumobilia Assessment/Plan: This is due to her previous sphincterotomy Code(s): K83.8 - OTHER SPECIFIED DISEASES OF BILIARY TRACT (6) A-fib Code(s): I48.91 - UNSPECIFIED ATRIAL FIBRILLATION Qualifiers: Atrial fibrillation type: chronic Qualified Code(s): I48.2 - Chronic atrial fibrillation (7) Diverticula of colon Code(s): K57.30 - DVRTCLOS OF LG INT W/O PERFORATION OR ABSCESS W/O BLEEDING (8) GI bleed Code(s): K92.2 - GASTROINTESTINAL HEMORRHAGE, UNSPECIFIED Qualifiers: GI bleed type/associated pathology: angiodysplasia of stomach and duodenum Qualified Code(s): K31.811 - Angiodysplasia of stomach and duodenum with bleeding (9) Hx of acute pancreatitis Assessment/Plan: this was biliary pancreatitis due to CBD stones which were extracted Code(s): Z87.19 - PERSONAL HISTORY OF OTHER DISEASES OF THE DIGESTIVE SYSTEM (10) Occult blood in stools Code(s): R19.5 - OTHER FECAL ABNORMALITIES (11) Post ERCP bleeding Code(s): K91.840 - POSTPROC HEMOR OF A DGSTV SYS ORG FOL A DGSTV SYS PROCEDURE (12) CML (chronic myelocytic leukemia) Code(s): C92.10 - CHRONIC MYELOID LEUK, BCR/ABL-POSITIVE, NOT ACHIEVE REMIS (13) Hypothyroid Code(s): E03.9 - HYPOTHYROIDISM, UNSPECIFIED Assessment/Plan Impression Piper's current source of pain is her RUQ incisional hernia which does not appear compromised but merits a surgical opinion I believe her transfusion requiring anemia reflect indolent blood loss from small bowel vascular ectasias aggravated by anticoagulation with coumadin. If the anticoagulation is mandated only by her atrial fibrillation perhaps a Watchman procedure should be considered. I believe that her constipation and impacted feces contributed to the pain and hernia bulging. Plan: Continue Miralax Surgical consultation for incisional hernia pain. Communicated with Dr Garcia Cardiology opinion re: Watchman procedure unless anticoagulation is necessary for other conditions
[2018-12-11] MEDS: SODIUM CHLORIDE 0.45% 1,000 ML IV SCH (15:48)
[2018-12-11] MEDS: WARFARIN NA 10 MG TABLET (FP) PO SCH (17:15)
--- NOTE | 2018-12-11 18:14 | PN ---
Teaching Attending Note Name of Resident: Fatoumata Barrios ATTENDING PHYSICIAN STATEMENT I saw and evaluated the patient. I reviewed the resident's note and discussed the case with the resident. I agree with the resident's findings and plan as documented. SUBJECTIVE: Ms Hernandez complains of constipation and abdominal pain. Denies cp, sob, n/v. OBJECTIVE: Last Vital Signs Temp Pulse Resp BP Pulse Ox 36.8 C 72 20 148/75 98 12/11/18 14:00 12/11/18 14:00 12/11/18 14:00 12/11/18 14:00 12/11/18 08:43 Gen: obese, nad Pulm: ctab w/o w/r/r CV: rrr w/o m/r/g Abd: +bs, s/nd, TTP in all quadrants Ext: chronic edema and erythema CBC, BMP 12/11/18 06:50 12/11/18 06:50 ASSESSMENT AND PLAN: (1) ASA (acute kidney injury) Assessment/Plan: -case d/w Dr Sanchez -decrease rate and change fluids to 1/2 NS -much improved Code(s): N17.9 - ACUTE KIDNEY FAILURE, UNSPECIFIED (2) Hyperkalemia Assessment/Plan: -resolved Code(s): E87.5 - HYPERKALEMIA (3) A-fib Assessment/Plan: -currently appears in sinus rhythm on repeat EKG -monitor on telemetry -sounds in sinus rhythm on exam -continue coumadin for anticoagulation Code(s): I48.91 - UNSPECIFIED ATRIAL FIBRILLATION Qualifiers: Atrial fibrillation type: chronic Qualified Code(s): I48.2 - Chronic atrial fibrillation (4) COPD (chronic obstructive pulmonary disease) Assessment/Plan: -duoneb prn Code(s): J44.9 - CHRONIC OBSTRUCTIVE PULMONARY DISEASE, UNSPECIFIED (5) Constipation Assessment/Plan: -case d/w Dr Velazquez -regimen per GI -consult Dr Rickey Rodriguez for incision pain Code(s): K59.00 - CONSTIPATION, UNSPECIFIED (6) Diabetic neuropathy Assessment/Plan: -pain control Code(s): E11.40 - TYPE 2 DIABETES MELLITUS WITH DIABETIC NEUROPATHY, UNSP (7) HTN (hypertension) Assessment/Plan: -controlled -continue home regimen Code(s): I10 - ESSENTIAL (PRIMARY) HYPERTENSION (8) Swelling of lower extremity Assessment/Plan: -chronic -monitor -hold diuretics secondary to ASA Code(s): M79.89 - OTHER SPECIFIED SOFT TISSUE DISORDERS (9) T2DM (type 2 diabetes mellitus) Assessment/Plan: -diabetic diet -FSBS and SSI Code(s): E11.9 - TYPE 2 DIABETES MELLITUS WITHOUT COMPLICATIONS Qualifiers: Diabetes mellitus complication status: with neurologic complications (10) CML (chronic myelocytic leukemia) Assessment/Plan: -holding tasigna secondary to low WBCs -also noted to have protein gap -case d/w Dr Sandhu -follow up immunoglobulins Code(s): C92.10 - CHRONIC MYELOID LEUK, BCR/ABL-POSITIVE, NOT ACHIEVE REMIS (11) Hypothyroid Assessment/Plan: -continue synthroid Code(s): E03.9 - HYPOTHYROIDISM, UNSPECIFIED Problem List - Problems (1) ASA (acute kidney injury) Code(s): N17.9 - ACUTE KIDNEY FAILURE, UNSPECIFIED (2) Hyperkalemia Code(s): E87.5 - HYPERKALEMIA (3) A-fib Code(s): I48.91 - UNSPECIFIED ATRIAL FIBRILLATION Qualifiers: Atrial fibrillation type: chronic Qualified Code(s): I48.2 - Chronic atrial fibrillation (4) COPD (chronic obstructive pulmonary disease) Code(s): J44.9 - CHRONIC OBSTRUCTIVE PULMONARY DISEASE, UNSPECIFIED (5) Constipation Code(s): K59.00 - CONSTIPATION, UNSPECIFIED (6) Diabetic neuropathy Code(s): E11.40 - TYPE 2 DIABETES MELLITUS WITH DIABETIC NEUROPATHY, UNSP (7) HTN (hypertension) Code(s): I10 - ESSENTIAL (PRIMARY) HYPERTENSION (8) Swelling of lower extremity Code(s): M79.89 - OTHER SPECIFIED SOFT TISSUE DISORDERS (9) T2DM (type 2 diabetes mellitus) Code(s): E11.9 - TYPE 2 DIABETES MELLITUS WITHOUT COMPLICATIONS Qualifiers: Diabetes mellitus complication status: with neurologic complications (10) CML (chronic myelocytic leukemia) Code(s): C92.10 - CHRONIC MYELOID LEUK, BCR/ABL-POSITIVE, NOT ACHIEVE REMIS (11) Hypothyroid Code(s): E03.9 - HYPOTHYROIDISM, UNSPECIFIED
--- NOTE | 2018-12-11 18:24 | PN ---
Physical Exam: SUBJECTIVE: Patient seen and examined, complaining of constipation. OBJECTIVE: Vital Signs Period Temp Pulse Resp BP Sys/Machado Pulse Ox Last 24 Hr 98 F-98.3 F 68-79 18-20 148-176/68-78 98-98 GENERAL: The patient is awake, alert, and fully oriented, in no acute distress. HEAD: Normal with no signs of trauma. EYES: PERRL, extraocular movements intact. ENT: Oropharynx clear without exudates, moist mucous membranes. NECK: Trachea midline, full range of motion, supple. LUNGS: Breath sounds equal, clear to auscultation bilaterally, no wheezes, no crackles, no accessory muscle use. HEART: Regular rate and rhythm, S1, S2 without murmur, rub or gallop. ABDOMEN: Soft, nontender, nondistended, normoactive bowel sounds. EXTREMITIES: 2+ pulses, warm, 3+ edema, dressing on left mckeon. NEUROLOGICAL: Normal speech, gait not observed. PSYCH: Normal mood, normal affect. SKIN: Warm, dry, normal turgor, no rashes. Laboratory Results - last 24 hr 12/11/18 12/11/18 12/11/18 06:44 06:50 06:50 WBC 2.2 L RBC 2.07 L Hgb 7.1 L Hct 20.3 L MCV 98.2 H MCH 34.5 H MCHC 35.2 RDW 20.5 H Plt Count 88 L MPV 7.1 L Absolute Neuts (auto) 1.3 L Neutrophils % 56.3 Lymphocytes % 34.3 Monocytes % 5.3 Eosinophils % 3.8 Basophils % 0.3 Nucleated RBC % 0 PT with INR INR Sodium 140 Potassium 4.5 Chloride 109 H Carbon Dioxide 25 Anion Gap 6 L BUN 25 H Creatinine 0.9 Creat Clearance w eGFR 61.90 POC Glucometer 98 Random Glucose 102 Calcium 8.0 L Phosphorus 3.0 Magnesium 1.6 L Total Bilirubin 0.3 AST 17 ALT 18 Alkaline Phosphatase 131 H Total Protein 10.0 H Albumin 2.3 L 12/11/18 12/11/18 12/11/18 09:00 11:11 17:09 WBC RBC Hgb Hct MCV MCH MCHC RDW Plt Count MPV Absolute Neuts (auto) Neutrophils % Lymphocytes % Monocytes % Eosinophils % Basophils % Nucleated RBC % PT with INR 30.50 H INR 2.56 H Sodium Potassium Chloride Carbon Dioxide Anion Gap BUN Creatinine Creat Clearance w eGFR POC Glucometer 149 133 Random Glucose Calcium Phosphorus Magnesium Total Bilirubin AST ALT Alkaline Phosphatase Total Protein Albumin Active Medications Generic Name Dose Route Start Last Admin Trade Name Santhosh PRN Reason Stop Dose Admin Al Hydroxide/Mg Hydroxide 30 ml 12/09/18 09:24 12/11/18 13:43 Mylanta Oral Suspension - PO 30 ml Q6H PRN Administration heartburn Albuterol/Ipratropium 1 amp 12/09/18 19:01 Duoneb - NEB Q4H PRN SHORTNESS OF BREATH Artificial Tears 1 drop 12/09/18 10:00 12/11/18 13:48 Artificial Tears OU 1 drop QID JOVITA Administration Ascorbic Acid 500 mg 12/09/18 10:00 12/11/18 10:02 Vitamin C - PO 500 mg DAILY JOVITA Administration Bisacodyl 10 mg 12/09/18 09:24 Dulcolax Suppository - RC DAILY PRN CONSTIPATION Diltiazem HCl 120 mg 12/09/18 10:00 12/11/18 10:02 Cardizem Cd - PO 120 mg DAILY [facility] Administration Docusate Sodium 100 mg 12/09/18 14:00 12/11/18 13:41 Colace - PO 100 mg TID JOVITA Administration Folic Acid 1 mg 12/09/18 10:00 12/11/18 10:02 Folic Acid - PO 1 mg DAILY JOVITA Administration Gabapentin 100 mg 12/09/18 09:30 12/11/18 13:41 Neurontin - PO 100 mg TID JOVITA Administration Hydroxyzine HCl 25 mg 12/09/18 14:00 12/11/18 13:41 Atarax - PO 25 mg TID JOVITA Administration Sodium Chloride 1,000 mls @ 42 mls/hr 12/11/18 14:45 12/11/18 15:48 1/2 Normal Saline IV 42 mls/hr ASDIR JOVITA Administration Insulin Aspart 1 vial 12/09/18 07:00 12/11/18 17:16 Novolog Vial Sliding Scale - SQ Not Given ACHS [facility] Protocol Lactic Acid 1 applic 12/09/18 10:00 12/11/18 10:03 Lac-Hydrin 12 TP 1 applic BID JOVITA Administration Levothyroxine Sodium 25 mcg 12/10/18 07:00 12/11/18 06:48 Synthroid - PO 25 mcg DAILY@0700 JOVITA Administration Multivit/Ca Carb/B Cmplx/FA/Prenat 1 tablet 12/09/18 10:00 12/11/18 10:02 Nephro-Majo - PO 1 tablet DAILY JOVITA Administration Non-Formulary Medication 300 mg 12/09/18 10:00 Nilotinib Hcl [Tasigna] PO BID JOVITA Oxycodone HCl 10 mg 12/09/18 09:24 12/11/18 13:51 Roxicodone - PO 10 mg Q6H PRN Administration PAIN 4-6 Pantoprazole Sodium 40 mg 12/09/18 10:00 12/11/18 10:02 Protonix - PO 40 mg DAILY JOVITA Administration Polyethylene Glycol 17 gm 12/09/18 14:00 12/11/18 13:40 Miralax (For Bowel Prep) - PO 17 grams TID JOVITA Administration Pyridoxine HCl 100 mg 12/09/18 10:00 12/11/18 10:03 Vitamin B6 - PO 100 mg DAILY JOVITA Administration Senna 1 tab 12/09/18 10:00 12/11/18 10:02 Senna - PO 1 tab DAILY JOVITA Administration Warfarin Sodium 10 mg 12/09/18 18:00 12/11/18 17:15 Coumadin - PO 10 mg DAILY@1800 JOVITA Administration ASSESSMENT/PLAN: 68 y/o female with PMH of HTN, HLDm, afib (on coumadin), CML, hypothyrodisim, previous DVTS, presented to the ED with abdominal pains found to be hyperkalemic and bradycardic. Abdominal pain; -located on right side, associated with constipation -will follow up with GI recs -cont Senna, Colace, Miralax, enema ordered ASA -monitor -f/u nephrology recommendation -IVF NS at 75 cc/hr changed to 1/2 NS Hyperkalemia -continue hydration -low K diet -repeat EKG normalized Thrombocytopenia: -today 88 -will follow up hematology recommendations A.fib -currently appears in sinus rhythm on repeat EKG -monitor on telemetry -coumadin 10 mg qd and dilitiazem 120 mg qd COPD -duoneb prn Constipation -continue bowel regimen -Miralax TID Diabetic neuropathy -pain control, Gabapentin HTN -controlled -continue home regimen Swelling of lower extremities -chronic T2DM -diabetic diet -ISS, BGM ACHS CML -holding tasigna due to WBC 2.2, protein gap noticed -hem onc consulted -also noted to have protein gap -follow up immunoglobulins Hypomagnesemia: -today 1.6, repleated Hypothyroid -continue synthroid F/E/N: IVF1/2 ns/no changes/diabetic diet DVT PPX: coumadin Dispo: telemetry Problem List - Problems (1) ASA (acute kidney injury) Code(s): N17.9 - ACUTE KIDNEY FAILURE, UNSPECIFIED (2) Hyperkalemia Code(s): E87.5 - HYPERKALEMIA (3) A-fib Code(s): I48.91 - UNSPECIFIED ATRIAL FIBRILLATION Qualifiers: Atrial fibrillation type: chronic Qualified Code(s): I48.2 - Chronic atrial fibrillation (4) MARIA ELENA positive Code(s): R76.8 - OTHER SPECIFIED ABNORMAL IMMUNOLOGICAL FINDINGS IN SERUM (5) Abscess of left lower extremity Code(s): L02.416 - CUTANEOUS ABSCESS OF LEFT LOWER LIMB (6) Acute kidney injury superimposed on CKD Code(s): N17.9 - ACUTE KIDNEY FAILURE, UNSPECIFIED; N18.9 - CHRONIC KIDNEY DISEASE, UNSPECIFIED (7) Acute renal insufficiency Code(s): N28.9 - DISORDER OF KIDNEY AND URETER, UNSPECIFIED (8) Altered mental status, unspecified Code(s): R41.82 - ALTERED MENTAL STATUS, UNSPECIFIED (9) Anemia due to GI blood loss Code(s): D50.0 - IRON DEFICIENCY ANEMIA SECONDARY TO BLOOD LOSS (CHRONIC) (10) Atrial fibrillation with RVR Code(s): I48.91 - UNSPECIFIED ATRIAL FIBRILLATION (11) COPD (chronic obstructive pulmonary disease) Code(s): J44.9 - CHRONIC OBSTRUCTIVE PULMONARY DISEASE, UNSPECIFIED (12) Cellulitis Code(s): L03.90 - CELLULITIS, UNSPECIFIED Qualifiers: Site of cellulitis: extremity Site of cellulitis of extremity: lower extremity Laterality: unspecified laterality Qualified Code(s): L03.119 - Cellulitis of unspecified part of limb (13) Chronic anemia Code(s): D64.9 - ANEMIA, UNSPECIFIED (14) Constipation Code(s): K59.00 - CONSTIPATION, UNSPECIFIED (15) Diabetic neuropathy Code(s): E11.40 - TYPE 2 DIABETES MELLITUS WITH DIABETIC NEUROPATHY, UNSP (16) Diabetic retinopathy associated with controlled type 2 diabetes mellitus Code(s): E11.319 - TYPE 2 DIABETES W UNSP DIABETIC RTNOP W/O MACULAR EDEMA (17) Diarrhea Code(s): R19.7 - DIARRHEA, UNSPECIFIED (18) Diverticula of colon Code(s): K57.30 - DVRTCLOS OF LG INT W/O PERFORATION OR ABSCESS W/O BLEEDING (19) Drug induced rash with eosinophilia and systemic symptoms Code(s): L27.0 - GEN SKIN ERUPTION DUE TO DRUGS AND MEDS TAKEN INTERNALLY; D72.1 - EOSINOPHILIA; T50.905A - ADVERSE EFFECT OF UNSP DRUG/MEDS/BIOL SUBST, INIT (20) Family history of GI malignancy Code(s): Z80.0 - FAMILY HISTORY OF MALIGNANT NEOPLASM OF DIGESTIVE ORGANS (21) Fecal impaction in rectum Code(s): K56.41 - FECAL IMPACTION (22) GI bleed Code(s): K92.2 - GASTROINTESTINAL HEMORRHAGE, UNSPECIFIED Qualifiers: GI bleed type/associated pathology: angiodysplasia of stomach and duodenum Qualified Code(s): K31.811 - Angiodysplasia of stomach and duodenum with bleeding (23) Groin rash Code(s): R21 - RASH AND OTHER NONSPECIFIC SKIN ERUPTION (24) HTN (hypertension) Code(s): I10 - ESSENTIAL (PRIMARY) HYPERTENSION (25) History of ERCP Code(s): Z98.890 - OTHER SPECIFIED POSTPROCEDURAL STATES (26) Hx of acute pancreatitis Code(s): Z87.19 - PERSONAL HISTORY OF OTHER DISEASES OF THE DIGESTIVE SYSTEM (27) Hypokalemia Code(s): E87.6 - HYPOKALEMIA (28) Hypoxia Code(s): R09.02 - HYPOXEMIA (29) Incisional hernia of anterior abdominal wall without obstruction or gangrene Code(s): K43.2 - INCISIONAL HERNIA WITHOUT OBSTRUCTION OR GANGRENE (30) Lymphedema Code(s): I89.0 - LYMPHEDEMA, NOT ELSEWHERE CLASSIFIED (31) Occult blood in stools Code(s): R19.5 - OTHER FECAL ABNORMALITIES (32) Post ERCP bleeding Code(s): K91.840 - POSTPROC HEMOR OF A DGSTV SYS ORG FOL A DGSTV SYS PROCEDURE (33) Puncture wound of left knee without foreign body Code(s): S81.032A - PUNCTURE WOUND WITHOUT FOREIGN BODY, LEFT KNEE, INIT ENCNTR Qualifiers: Encounter type: initial encounter Qualified Code(s): S81.032A - Puncture wound without foreign body, left knee, initial encounter (34) Sepsis Code(s): A41.9 - SEPSIS, UNSPECIFIED ORGANISM Qualifiers: Sepsis type: sepsis due to unspecified organism Qualified Code(s): A41.9 - Sepsis, unspecified organism (35) Supratherapeutic INR Code(s): R79.1 - ABNORMAL COAGULATION PROFILE (36) Swelling of lower extremity Code(s): M79.89 - OTHER SPECIFIED SOFT TISSUE DISORDERS (37) T2DM (type 2 diabetes mellitus) Code(s): E11.9 - TYPE 2 DIABETES MELLITUS WITHOUT COMPLICATIONS Qualifiers: Diabetes mellitus complication status: with neurologic complications (38) T2DM (type 2 diabetes mellitus) Code(s): E11.9 - TYPE 2 DIABETES MELLITUS WITHOUT COMPLICATIONS Qualifiers: Diabetes mellitus complication detail: with unspecified neuropathy (39) Toxic metabolic encephalopathy Code(s): G92 - TOXIC ENCEPHALOPATHY (40) Type 2 diabetes mellitus with other skin ulcer Code(s): E11.622 - TYPE 2 DIABETES MELLITUS WITH OTHER SKIN ULCER; L98.499 - NON -PRESSURE CHRONIC ULCER OF SKIN OF SITES W UNSP SEVERITY (41) UTI (urinary tract infection) Code(s): N39.0 - URINARY TRACT INFECTION, SITE NOT SPECIFIED Qualifiers: Urinary tract infection type: acute cystitis Hematuria presence: without hematuria Qualified Code(s): N30.00 - Acute cystitis without hematuria (42) Ulcer of left lower extremity Code(s): L97.929 - NON-PRS CHRONIC ULC UNSP PRT OF L LOW LEG W UNSP SEVERITY Qualifiers: Non-pressure ulcer stage: limited to breakdown of skin Qualified Code(s): L97.921 - Non-pressure chronic ulcer of unspecified part of left lower leg limited to breakdown of skin (43) Abnormal LFTs Code(s): R79.89 - OTHER SPECIFIED ABNORMAL FINDINGS OF BLOOD CHEMISTRY (44) Acute respiratory failure Code(s): J96.00 - ACUTE RESPIRATORY FAILURE, UNSP W HYPOXIA OR HYPERCAPNIA Qualifiers: Respiratory failure complication: hypoxia Qualified Code(s): J96.01 - Acute respiratory failure with hypoxia (45) Anemia Code(s): D64.9 - ANEMIA, UNSPECIFIED Qualifiers: Anemia type: other cause Other causes of anemia: chronic disease, other Qualified Code(s): D63.8 - Anemia in other chronic diseases classified elsewhere (46) CHF (congestive heart failure) Code(s): I50.9 - HEART FAILURE, UNSPECIFIED (47) CML (chronic myelocytic leukemia) Code(s): C92.10 - CHRONIC MYELOID LEUK, BCR/ABL-POSITIVE, NOT ACHIEVE REMIS (48) COPD (chronic obstructive pulmonary disease) Code(s): J44.9 - CHRONIC OBSTRUCTIVE PULMONARY DISEASE, UNSPECIFIED (49) Cellulitis of leg, left Code(s): L03.116 - CELLULITIS OF LEFT LOWER LIMB (50) Diabetes Code(s): E11.9 - TYPE 2 DIABETES MELLITUS WITHOUT COMPLICATIONS (51) Diabetic foot ulcer Code(s): E11.621 - TYPE 2 DIABETES MELLITUS WITH FOOT ULCER; L97.509 - NON- PRESSURE CHRONIC ULCER OTH PRT UNSP FOOT W UNSP SEVERITY Qualifiers: Diabetic foot ulcer location: heel Diabetes mellitus type: type 2 Laterality: right Non-pressure ulcer stage: with necrosis of muscle Qualified Code(s): E11.621 - Type 2 diabetes mellitus with foot ulcer (52) Heel ulcer due to DM Code(s): E11.621 - TYPE 2 DIABETES MELLITUS WITH FOOT ULCER; L97.409 - NON-PRS CHRONIC ULCER OF UNSP HEEL AND MIDFOOT W UNSP SEVERT Qualifiers: Diabetes mellitus type: type 2 Laterality: left Non-pressure ulcer stage : with fat layer exposed Qualified Code(s): E11.621 - Type 2 diabetes mellitus with foot ulcer; L97.422 - Non-pressure chronic ulcer of left heel and midfoot with fat layer exposed; L97.422 - Non-pressure chronic ulcer of left heel and midfoot with fat layer exposed; L97.422 - Non-pressure chronic ulcer of left heel and midfoot with fat layer exposed; L97.422 - Non-pressure chronic ulcer of left heel and midfoot with fat layer exposed (53) Hyperglycemia Code(s): R73.9 - HYPERGLYCEMIA, UNSPECIFIED (54) Hyperlipidemia Code(s): E78.5 - HYPERLIPIDEMIA, UNSPECIFIED (55) Hypertension Code(s): I10 - ESSENTIAL (PRIMARY) HYPERTENSION (56) Hypothyroid Code(s): E03.9 - HYPOTHYROIDISM, UNSPECIFIED (57) Osteomyelitis of foot Code(s): M86.9 - OSTEOMYELITIS, UNSPECIFIED (58) Right knee pain Code(s): M25.561 - PAIN IN RIGHT KNEE (59) Thrombocytopenia Code(s): D69.6 - THROMBOCYTOPENIA, UNSPECIFIED Visit type - Emergency Visit Emergency Visit: Yes ED Registration Date: 12/08/18 Care time: The patient presented to the Emergency Department on the above date and was hospitalized for further evaluation of their emergent condition. - New Patient This patient is new to me today: No - Critical Care Critical Care patient: No
--- NOTE | 2018-12-11 19:36 | PN ---
Teaching Attending Note Name of Resident: Lino Baker ATTENDING PHYSICIAN STATEMENT I saw and evaluated the patient. I reviewed the resident's note and discussed the case with the resident. I agree with the resident's findings and plan as documented. SUBJECTIVE: patient seen and examined Anemia and leukopenia likely secondary to TASIGNA- TO HOLD FOR TRANSFUSION THERAPY. SIGNIFICANT REVERSAL OF ALBUMIN/GLOBULIN WITH HYPERGLOBULINEMIA . ROR EVALUATION. PROTEIN STUDIES OBJECTIVE: ASSESSMENT AND PLAN:
[2018-12-12] MEDS: INSULIN SLIDING SCALE (NOVOLOG) 1 VIAL SQ SCH ×4 (06:14→21:52)
[2018-12-12] MEDS: hydrOXYzine HCL 25 MG TABLET (FP) PO SCH ×3 (06:16→21:51)
[2018-12-12] MEDS: POLYETHYLENE GLYCOL 3350 255 GM BTL PO SCH (06:17)
[2018-12-12] MEDS: GABAPENTIN 100 MG CAPSULE (FP) PO SCH ×3 (06:17→21:51)
[2018-12-12] MEDS: LEVOTHYROXINE NA 25 MCG TABLET (FP) PO SCH (06:17)
[2018-12-12] MEDS: DOCUSATE SODIUM 100 MG CAPSULE (FP) PO SCH ×3 (06:17→21:51)
[2018-12-12 06:35] LABS: BASO % 0.2 % (0-2.0); EOS % 4.5 % (0-4.5); HEMATOCRIT 19.4 % (32.4-45.2); MCH 34.5 pg (25.7-33.7); MCHC 35.3 g/dl (32.0-36.0); MEAN CELL VOLUME 97.8 fl (80-96); MEAN PLT VOLUME 7.3 fl (7.5-11.1); MONO % 4.8 % (3.8-10.2); NEUT % 56.5 % (42.8-82.8); PLATELET COUNT 89 K/MM3 (134-434); RBC 1.99 M/mm3 (3.60-5.2); RDW 20.2 % (11.6-15.6); WHITE BLOOD COUNT 2.1 K/mm3 (4.0-10.0)
[2018-12-12 06:54] LABS: HEMOGLOBIN 6.9 GM/dL (10.7-15.3)
[2018-12-12 07:01] LABS: ALK PHOS 119 U/L (45-117); ANION GAP 4 MMOL/L (8-16); BILIRUBIN,TOTAL 0.2 mg/dL (0.2-1); BLOOD UREA NITROGEN 19 mg/dL (7-18); CHLORIDE 108 mmol/L (98-107); CO2 25 mmol/L (21-32); CREATININE 0.8 mg/dL (0.55-1.3); GLUCOSE,RANDOM 97 mg/dL (74-106); POTASSIUM 4.2 mmol/L (3.5-5.1); SGOT/AST 16 U/L (15-37); SGPT/ALT 17 U/L (13-61); SODIUM 137 mmol/L (136-145); TOT PROT 9.4 g/dl (6.4-8.2)
[2018-12-12] MEDS: ARTIFICIAL TEARS (POLYVINYL ALCOHOL) OPTH DROPS OU SCH ×3 (09:18→21:51)
[2018-12-12] MEDS: PANTOPRAZOLE 40 MG TABLET (FP) PO SCH ×2 (09:19→21:52)
[2018-12-12] MEDS: ASCORBIC ACID 500 MG TABLET (FP) PO SCH (09:19)
[2018-12-12] MEDS: FOLIC ACID 1 MG TABLET (FP) PO SCH (09:19)
[2018-12-12] MEDS: VITAMIN B COMP W-C 1 EA TABLET PO SCH (09:19)
[2018-12-12] MEDS: SENNOSIDES 8.6MG TABLET (FP) PO SCH (09:19)
[2018-12-12] MEDS: AMMONIUM LACTATE 12% LOTION 225 GM BOTTLE TP SCH ×2 (09:20→21:51)
[2018-12-12] MEDS: PYRIDOXINE HCL (B-6) 50 MG TABLET (FP) PO SCH (09:20)
--- NOTE | 2018-12-12 10:05 | PN ---
Teaching Attending Note Name of Resident: Fatoumata Barrios ATTENDING PHYSICIAN STATEMENT I saw and evaluated the patient. I reviewed the resident's note and discussed the case with the resident. I agree with the resident's findings and plan as documented with exceptions below. SUBJECTIVE: Patient seen and examined. overall weakness improved, no new complaints. Had BM , denies abdominal pain. OBJECTIVE: Vital Signs Period Temp Pulse Resp BP Sys/M[place]ado Pulse Ox Last 24 Hr 97 F-98.5 F 64-82 18-20 145-164/69-87 100 Intake & Output 12/09/18 12/10/18 12/11/18 12/12/18 23:59 23:59 23:59 23:59 Intake Total 750 1460 750 Output Total 200 Balance 750 1460 550 Weight 168 lb 179 lb 12.48 oz General: sitting in bed, no acute distress, positive pallor Chest: limited by habitus, no rales or wheezing CVS: S1S2 regular Neck: soft, supple, no JVD Abdomen: soft, obese, NT throughout Extremities: no edema Home Medications Medication Instructions Recorded Albuterol Sulfate 2.5 mg IH Q8H PRN 07/18/18 Ammonium Lactate Lotion 1 applic TP ASDIR 07/18/18 [Lac-Hydrin 12] Ascorbic Acid [Vitamin C -] 500 mg PO DAILY 07/18/18 Gabapentin [Neurontin -] 100 mg PO Q8H 07/18/18 Ipratropium [place] 0.2 mg IH Q8H PRN 07/18/18 L. Acidophilus/Bifid. Animalis 1 each PO TID 07/18/18 [Probiotic 5 Billion Cell Cap] Oxycodone HCl 10 mg PO Q6H PRN 07/18/18 Polyethylene Glycol 3350 [Miralax 17 gm PO TID 07/18/18 255 gm Btl -] Vitamin B Complex 1 tab PO DAILY 07/18/18 Warfarin Na [Coumadin -] 10 mg PO HS 07/18/18 Diltiazem Cd [Cardizem Cd -] 120 mg PO DAILY cap.cd.24h 07/23/18 Docusate Sodium [Colace -] 100 mg PO TID capsule 07/23/18 Levothyroxine [Synthroid -] 25 mcg PO DAILY@0700 tablet 07/23/18 Acetaminophen [Pain Relief] 650 mg PO Q6H PRN 07/29/18 Bisacodyl Suppository [Dulcolax 10 mg RC DAILY PRN 07/29/18 Suppository -] Insulin Lispro [Humalog Kwikpen 0 unit SQ ASDIR 07/29/18 U-100] Mag Hydrox/Al Hydrox/Simeth 30 ml PO Q6H PRN 07/29/18 [Mylanta Oral Suspension -] Pantoprazole Sodium 40 mg PO DAILY 07/29/18 Nystatin Cream [Mycostatin Cream -] 1 applic TP Q6HPO applic 08/03/18 Torsemide [Demadex -] 20 mg PO DAILY tablet 08/03/18 Aa/Hydrolyzed Collagen, Whey [Lps 30 ml PO DAILY 11/14/18 15-30 Liquid] Folic Acid 1 mg PO DAILY 11/14/18 Hydroxyzine HCl 25 mg PO TID 11/14/18 Nilotinib HCl [Tasigna] 300 mg PO BID 11/14/18 Polyvinyl Alcohol [Artificial 1 drop OU QID 11/14/18 Tears] Pyridoxine HCl (B-6) [Vitamin B6 -] 100 mg PO DAILY 11/14/18 Sennosides [Senna Lax] 8.6 mg PO DAILY 11/14/18 Active Medications Al Hydroxide/Mg Hydroxide (Mylanta Oral Suspension -) 30 ml PO Q6H PRN PRN Reason: heartburn Last Admin: 12/11/18 13:43 Dose: 30 ml Albuterol/Ipratropium (Duoneb -) 1 amp NEB Q4H PRN PRN Reason: SHORTNESS OF BREATH Last Admin: 12/11/18 19:40 Dose: 1 amp Artificial Tears (Artificial Tears) 1 drop OU QID [facility] Last Admin: 12/12/18 09:18 Dose: 1 drop Ascorbic Acid (Vitamin C -) 500 mg PO DAILY [facility] Last Admin: 12/12/18 09:19 Dose: 500 mg Bisacodyl (Dulcolax Suppository -) 10 mg RC DAILY PRN PRN Reason: CONSTIPATION Diltiazem HCl (Cardizem Cd -) 120 mg PO DAILY [facility] Last Admin: 12/12/18 09:19 Dose: 120 mg Docusate Sodium (Colace -) 100 mg PO TID [facility] Last Admin: 12/12/18 06:17 Dose: 100 mg Folic Acid (Folic Acid -) 1 mg PO DAILY [facility] Last Admin: 12/12/18 09:19 Dose: 1 mg Gabapentin (Neurontin -) 100 mg PO TID [facility] Last Admin: 12/12/18 06:17 Dose: 100 mg Hydroxyzine HCl (Atarax -) 25 mg PO TID [facility] Last Admin: 12/12/18 06:16 Dose: 25 mg Sodium Chloride (1/2 Normal Saline) 1,000 mls @ 42 mls/hr IV ASDIR [facility] Last Admin: 12/11/18 15:48 Dose: 42 mls/hr Insulin Aspart (Novolog Vial Sliding Scale -) 1 vial SQ ACHS [facility]; Protocol Last Admin: 12/12/18 06:14 Dose: Not Given Lactic Acid (Lac-Hydrin 12) 1 applic TP BID [facility] Last Admin: 12/11/18 21:41 Dose: 1 applic Levothyroxine Sodium (Synthroid -) 25 mcg PO DAILY@0700 [facility] Last Admin: 12/12/18 06:17 Dose: 25 mcg Multivit/Ca Carb/B Cmplx/FA/Prenat (Nephro-Majo -) 1 tablet PO DAILY [facility] Last Admin: 12/12/18 09:19 Dose: 1 tablet Non-Formulary Medication (Nilotinib Hcl [Tasigna]) 300 mg PO BID [facility] Pantoprazole Sodium (Protonix -) 40 mg PO BID [facility] Last Admin: 12/12/18 09:19 Dose: 40 mg Polyethylene Glycol (Miralax (For Bowel Prep) -) 17 gm PO TID [facility] Last Admin: 12/12/18 06:17 Dose: 17 grams Pyridoxine HCl (Vitamin B6 -) 100 mg PO DAILY [facility] Senna (Senna -) 1 tab PO DAILY [facility] Last Admin: 12/12/18 09:19 Dose: 1 tab Warfarin Sodium (Coumadin -) 10 mg PO DAILY@1800 [facility] Last Admin: 12/11/18 17:15 Dose: 10 mg Laboratory Results - last 24 hr 12/10/18 12/11/18 12/11/18 05:40 11:11 17:09 WBC RBC Hgb Hct MCV MCH MCHC RDW Plt Count MPV Absolute Neuts (auto) Neutrophils % Lymphocytes % Monocytes % Eosinophils % Basophils % Nucleated RBC % Sodium Potassium Chloride Carbon Dioxide Anion Gap BUN Creatinine Creat Clearance w eGFR POC Glucometer 149 133 Random Glucose Calcium Total Bilirubin AST ALT Alkaline Phosphatase Total Protein Total Protein (PEP) 10.0 H Albumin Albumin (PEP) 3.2 Globulin 6.8 H Albumin/Globulin Ratio 0.5 L Beta Globulins 0.9 YANELIS M-Chris 4.4 H Blood Type Antibody Screen Crossmatch 12/11/18 12/12/18 12/12/18 17:45 05:30 05:30 WBC 2.1 L RBC 1.99 L Hgb 6.9 L* Hct 19.4 L MCV 97.8 H MCH 34.5 H MCHC 35.3 RDW 20.2 H Plt Count 89 L MPV 7.3 L Absolute Neuts (auto) 1.2 L Neutrophils % 56.5 Lymphocytes % 34.0 Monocytes % 4.8 Eosinophils % 4.5 Basophils % 0.2 Nucleated RBC % 0 Sodium 137 Potassium 4.2 Chloride 108 H Carbon Dioxide 25 Anion Gap 4 L BUN 19 H Creatinine 0.8 Creat Clearance w eGFR 70.91 POC Glucometer Random Glucose 97 Calcium 8.0 L Total Bilirubin 0.2 AST 16 ALT 17 Alkaline Phosphatase 119 H Total Protein 9.4 H Total Protein (PEP) Albumin 2.0 L Albumin (PEP) Globulin Albumin/Globulin Ratio Beta Globulins YANELIS M-Chris Blood Type O POSITIVE Antibody Screen Negative Crossmatch See Detail 12/12/18 06:10 WBC RBC Hgb Hct MCV MCH MCHC RDW Plt Count MPV Absolute Neuts (auto) Neutrophils % Lymphocytes % Monocytes % Eosinophils % Basophils % Nucleated RBC % Sodium Potassium Chloride Carbon Dioxide Anion Gap BUN Creatinine Creat Clearance w eGFR POC Glucometer 83 Random Glucose Calcium Total Bilirubin AST ALT Alkaline Phosphatase Total Protein Total Protein (PEP) Albumin Albumin (PEP) Globulin Albumin/Globulin Ratio Beta Globulins YANELIS M-Chris Blood Type Antibody Screen Crossmatch CT A/P results reviewed EKG on admission Junctional rhythm, resolved on Follow up EKG ASSESSMENT AND PLAN: 68 yof with pMHx of HTN, hyperlipidemia, atrial fib, chronic diastolic heart failure, type 2 DM, COPD, hypothyroidism, 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 -ASA, suspect from hypovolumia/hypotension, resolved -Hyperkalemia likely from above -Junctional rhythm, suspect from severe hyperkalemia, resolved. -CML on nilotinib -Acute on chronic anemia, suspect from above +/- ongoing intermittent blood loss from vascular ectasia in the setting of coumadin -Chronic leucopenia/thrombocytopenia, suspect from above -Elevated PEP, r/o Multiple myeloma -Abdominal pain, suspect form constipation -Atrial fibrillation, on coumadin -Reported h/o DVTs -Chronic diastolic heart failure -NIDDM -HTN -Hypothyroidism -HLD -Chronic back pain Plan: ASA/Hyperkalemia resolved. Renal input appreciated. Gentle hydration. NO evidence of volume overload. Encourage oral intake. Hematology input noted. Transfuse 1 unit PRBC. Monitor for gross or concerning evidence of bleed. Follow up SPEP/UPEP. Nilotinib/AC per hematology. GI input noted. Bowel regimen. Suspect patient on AC for AFib and hypercoagulable state with reported h/o DVTs. AC per hematology. ISS, diabetic renal diet. Continue diltiazem. Check INR. Continue levothyroxine/folic acid. DVTPPx on warfarin. Dispo plan for d/c back to [facility] in 1-2 days post transfusion if no new concerns , with outpatient hematology follow up. Plan discussed with patient and nursing in detail, all questions answered.
--- NOTE | 2018-12-12 12:33 | PN ---
Progress Note, Physician History of Present Illness: Pt seen and examined at bedside. She is awake and alert. She denies shortness of breath. She says she had several bowel movements. - Current Medication List Current Medications: Active Medications Al Hydroxide/Mg Hydroxide (Mylanta Oral Suspension -) 30 ml PO Q6H PRN PRN Reason: heartburn Last Admin: 12/11/18 13:43 Dose: 30 ml Albuterol/Ipratropium (Duoneb -) 1 amp NEB Q4H PRN PRN Reason: SHORTNESS OF BREATH Last Admin: 12/11/18 19:40 Dose: 1 amp Artificial Tears (Artificial Tears) 1 drop OU QID [facility] Last Admin: 12/12/18 09:18 Dose: 1 drop Ascorbic Acid (Vitamin C -) 500 mg PO DAILY [facility] Last Admin: 12/12/18 09:19 Dose: 500 mg Bisacodyl (Dulcolax Suppository -) 10 mg RC DAILY PRN PRN Reason: CONSTIPATION Diltiazem HCl (Cardizem Cd -) 120 mg PO DAILY [facility] Last Admin: 12/12/18 09:19 Dose: 120 mg Docusate Sodium (Colace -) 100 mg PO TID [facility] Last Admin: 12/12/18 06:17 Dose: 100 mg Folic Acid (Folic Acid -) 1 mg PO DAILY [facility] Last Admin: 12/12/18 09:19 Dose: 1 mg Gabapentin (Neurontin -) 100 mg PO TID [facility] Last Admin: 12/12/18 06:17 Dose: 100 mg Hydroxyzine HCl (Atarax -) 25 mg PO TID [facility] Last Admin: 12/12/18 06:16 Dose: 25 mg Sodium Chloride (1/2 Normal Saline) 1,000 mls @ 42 mls/hr IV ASDIR [facility] Last Admin: 12/11/18 15:48 Dose: 42 mls/hr Insulin Aspart (Novolog Vial Sliding Scale -) 1 vial SQ ACHS [facility]; Protocol Last Admin: 12/12/18 06:14 Dose: Not Given Lactic Acid (Lac-Hydrin 12) 1 applic TP BID [facility] Last Admin: 12/11/18 21:41 Dose: 1 applic Levothyroxine Sodium (Synthroid -) 25 mcg PO DAILY@0700 [facility] Last Admin: 12/12/18 06:17 Dose: 25 mcg Multivit/Ca Carb/B Cmplx/FA/Prenat (Nephro-Majo -) 1 tablet PO DAILY [facility] Last Admin: 12/12/18 09:19 Dose: 1 tablet Non-Formulary Medication (Nilotinib Hcl [Tasigna]) 300 mg PO BID [facility] Pantoprazole Sodium (Protonix -) 40 mg PO BID [facility] Last Admin: 12/12/18 09:19 Dose: 40 mg Polyethylene Glycol (Miralax (For Bowel Prep) -) 17 gm PO TID [facility] Last Admin: 12/12/18 06:17 Dose: 17 grams Pyridoxine HCl (Vitamin B6 -) 100 mg PO DAILY [facility] Senna (Senna -) 1 tab PO DAILY [facility] Last Admin: 12/12/18 09:19 Dose: 1 tab Warfarin Sodium (Coumadin -) 10 mg PO DAILY@1800 [facility] Last Admin: 12/11/18 17:15 Dose: 10 mg - Objective Vital Signs: Vital Signs Temperature 98.2 F 12/12/18 06:00 Pulse Rate 64 12/12/18 06:00 Respiratory Rate 20 12/12/18 06:00 Blood Pressure 145/69 12/12/18 06:00 O2 Sat by Pulse Oximetry (%) 100 12/12/18 09:00 Constitutional: Yes: Calm Eyes: Yes: Conjunctiva Clear HENT: Yes: Atraumatic Neck: Yes: Supple Cardiovascular: Yes: S1, S2 Respiratory: Yes: CTA Bilaterally Gastrointestinal: Yes: Soft, Abdomen, Obese Genitourinary: Yes: WNL Edema: Yes Edema: LLE: 1+, RLE: 1+ Neurological: Yes: Oriented Psychiatric: Yes: Oriented Labs: CBC, BMP 12/12/18 05:30 12/12/18 05:30 INR, PTT INR 2.56 (0.83-1.09) H 12/11/18 09:00 Problem List - Problems (1) ASA (acute kidney injury) Code(s): N17.9 - ACUTE KIDNEY FAILURE, UNSPECIFIED (2) Hyperkalemia Code(s): E87.5 - HYPERKALEMIA Assessment/Plan Current Medications Generic Name Dose Route Start Last Admin Trade Name Freq PRN Reason Stop Dose Admin Al Hydroxide/Mg Hydroxide 30 ml 12/09/18 09:24 12/11/18 13:43 Mylanta Oral Suspension - PO 30 ml Q6H PRN Administration heartburn Albuterol/Ipratropium 1 amp 12/09/18 19:01 12/11/18 19:40 Duoneb - NEB 1 amp Q4H PRN Administration SHORTNESS OF BREATH Artificial Tears 1 drop 12/09/18 10:00 12/12/18 09:18 Artificial Tears OU 1 drop QID [facility] Administration Ascorbic Acid 500 mg 12/09/18 10:00 12/12/18 09:19 Vitamin C - PO 500 mg DAILY [facility] Administration Bisacodyl 10 mg 12/09/18 09:24 Dulcolax Suppository - RC DAILY PRN CONSTIPATION Diltiazem HCl 120 mg 12/09/18 10:00 12/12/18 09:19 Cardizem Cd - PO 120 mg DAILY [facility] Administration Docusate Sodium 100 mg 12/09/18 14:00 12/12/18 06:17 Colace - PO 100 mg TID [facility] Administration Folic Acid 1 mg 12/09/18 10:00 12/12/18 09:19 Folic Acid - PO 1 mg DAILY [facility] Administration Gabapentin 100 mg 12/09/18 09:30 12/12/18 06:17 Neurontin - PO 100 mg TID [facility] Administration Hydroxyzine HCl 25 mg 12/09/18 14:00 12/12/18 06:16 Atarax - PO 25 mg TID [facility] Administration Sodium Chloride 1,000 mls @ 42 mls/hr 12/11/18 14:45 12/11/18 15:48 1/2 Normal Saline IV 42 mls/hr ASDIR [facility] Administration Insulin Aspart 1 vial 12/09/18 07:00 12/12/18 06:14 Novolog Vial Sliding Scale - SQ Not Given ACHS [facility] Protocol Lactic Acid 1 applic 12/09/18 10:00 12/11/18 21:41 Lac-Hydrin 12 TP 1 applic BID [facility] Administration Levothyroxine Sodium 25 mcg 12/10/18 07:00 12/12/18 06:17 Synthroid - PO 25 mcg DAILY@0700 [facility] Administration Multivit/Ca Carb/B Cmplx/FA/Prenat 1 tablet 12/09/18 10:00 12/12/18 09:19 Nephro-Majo - PO 1 tablet DAILY [facility] Administration Non-Formulary Medication 300 mg 12/09/18 10:00 Nilotinib Hcl [Tasigna] PO BID [facility] Pantoprazole Sodium 40 mg 12/11/18 22:00 12/12/18 09:19 Protonix - PO 40 mg BID [facility] Administration Polyethylene Glycol 17 gm 12/09/18 14:00 12/12/18 06:17 Miralax (For Bowel Prep) - PO 17 grams TID [facility] Administration Pyridoxine HCl 100 mg 12/12/18 10:00 Vitamin B6 - PO DAILY [facility] Senna 1 tab 12/09/18 10:00 12/12/18 09:19 Senna - PO 1 tab DAILY [facility] Administration Warfarin Sodium 10 mg 12/09/18 18:00 12/11/18 17:15 Coumadin - PO 10 mg DAILY@1800 [facility] Administration Laboratory Tests 12/12/18 05:30 Total Protein 9.4 H Impression 1. ASA 2. anemia 3. hyperkalemia 4. CML 5. hypothyroidism 6. HTN 7. chol 8. CHF 9. COPD 10. a-fib 11. abdominal pain Plan - renal function stabilizing - can stop fluids - pt getting prbc as hg is lower - heme follow up for elevated total protein - repeat ua - follow up spep Dr Sanchez
[2018-12-12] MEDS: POLYETHYLENE GLYCOL 3350 119 GM BTL PO SCH ×2 (13:14→21:51)
[2018-12-12] MEDS: SODIUM CHLORIDE 0.45% 1,000 ML IV SCH (14:40)
[2018-12-12] MEDS: PHENYLEPHRINE HCL/COCOA BUTTER SUPPOSITORY RC SCH ×2 (15:30→21:53)
[2018-12-12] MEDS: oxyCODONE HCL 5 MG TABLET PO PRN (15:46)
[2018-12-12 17:12] LABS: INR 3.28 (0.83-1.09); PROTHROMBIN TIME (PATIENT) 39.2 SEC (9.7-13.0)
--- NOTE | 2018-12-12 17:26 | PN ---
Physical Exam: SUBJECTIVE: Patient seen and examined, feeling better today, had multiple bowel movements. OBJECTIVE: Vital Signs Period Temp Pulse Resp BP Sys/Machado Pulse Ox Last 24 Hr 97 F-98.7 F 64-82 18-20 145-164/69-87 100-100 GENERAL: The patient is awake, alert, and fully oriented, in no acute distress. HEAD: Normal with no signs of trauma. EYES: PERRL, extraocular movements intact. ENT: Oropharynx clear without exudates, moist mucous membranes. NECK: Trachea midline, full range of motion, supple. LUNGS: Breath sounds equal, clear to auscultation bilaterally, no wheezes, no crackles, no accessory muscle use. HEART: Regular rate and rhythm, S1, S2 without murmur, rub or gallop. ABDOMEN: Soft, nontender, nondistended, normoactive bowel sounds. EXTREMITIES: 2+ pulses, warm, 3+ edema, dressing on left mckeon. NEUROLOGICAL: Normal speech, gait not observed. PSYCH: Normal mood, normal affect. SKIN: Warm, dry, normal turgor, no rashes. Laboratory Results - last 24 hr 12/10/18 12/10/18 12/11/18 05:40 06:31 17:45 WBC RBC Hgb Hct MCV MCH MCHC RDW Plt Count MPV Absolute Neuts (auto) Neutrophils % Lymphocytes % Monocytes % Eosinophils % Basophils % Nucleated RBC % PT with INR INR Sodium Potassium Chloride Carbon Dioxide Anion Gap BUN Creatinine Creat Clearance w eGFR POC Glucometer Random Glucose Calcium Total Bilirubin AST ALT Alkaline Phosphatase Total Protein Total Protein (PEP) 10.0 H Albumin Albumin (PEP) 3.2 Globulin 6.8 H Albumin/Globulin Ratio 0.5 L Bayvp-7-Ashaiyznh (%) 5.6 Zzxtw-4-Xpmroutjc (%) 6.4 Beta Globulins 0.9 Beta Globulins (%) 16.8 Gamma Globulins (%) 6.0 M-Chris % Not observed Urine Total Protein 40.0 Urine PEP Interpret 65.3 YANELIS M-Chris 4.4 H Ref Test Comments Blood Type O POSITIVE Antibody Screen Negative Crossmatch See Detail 12/12/18 12/12/18 12/12/18 05:30 05:30 06:10 WBC 2.1 L RBC 1.99 L Hgb 6.9 L* Hct 19.4 L MCV 97.8 H MCH 34.5 H MCHC 35.3 RDW 20.2 H Plt Count 89 L MPV 7.3 L Absolute Neuts (auto) 1.2 L Neutrophils % 56.5 Lymphocytes % 34.0 Monocytes % 4.8 Eosinophils % 4.5 Basophils % 0.2 Nucleated RBC % 0 PT with INR INR Sodium 137 Potassium 4.2 Chloride 108 H Carbon Dioxide 25 Anion Gap 4 L BUN 19 H Creatinine 0.8 Creat Clearance w eGFR 70.91 POC Glucometer 83 Random Glucose 97 Calcium 8.0 L Total Bilirubin 0.2 AST 16 ALT 17 Alkaline Phosphatase 119 H Total Protein 9.4 H Total Protein (PEP) Albumin 2.0 L Albumin (PEP) Globulin Albumin/Globulin Ratio Xnatb-3-Ztrasnfsg (%) Lqydf-7-Zrxocabfs (%) Beta Globulins Beta Globulins (%) Gamma Globulins (%) M-Chris % Urine Total Protein Urine PEP Interpret YANELIS M-Chris Ref Test Comments Blood Type Antibody Screen Crossmatch 12/12/18 12/12/18 16:15 16:48 WBC RBC Hgb Hct MCV MCH MCHC RDW Plt Count MPV Absolute Neuts (auto) Neutrophils % Lymphocytes % Monocytes % Eosinophils % Basophils % Nucleated RBC % PT with INR 39.20 H INR 3.28 H Sodium Potassium Chloride Carbon Dioxide Anion Gap BUN Creatinine Creat Clearance w eGFR POC Glucometer 122 Random Glucose Calcium Total Bilirubin AST ALT Alkaline Phosphatase Total Protein Total Protein (PEP) Albumin Albumin (PEP) Globulin Albumin/Globulin Ratio Uahpl-5-Ppzfyyhxu (%) Nkgqb-3-Ggcwtwben (%) Beta Globulins Beta Globulins (%) Gamma Globulins (%) M-Chris % Urine Total Protein Urine PEP Interpret YANELIS M-Chris Ref Test Comments Blood Type Antibody Screen Crossmatch Active Medications Generic Name Dose Route Start Last Admin Trade Name Freq PRN Reason Stop Dose Admin Al Hydroxide/Mg Hydroxide 30 ml 12/09/18 09:24 12/11/18 13:43 Mylanta Oral Suspension - PO 30 ml Q6H PRN Administration heartburn Albuterol/Ipratropium 1 amp 12/09/18 19:01 12/11/18 19:40 Duoneb - NEB 1 amp Q4H PRN Administration SHORTNESS OF BREATH Artificial Tears 1 drop 12/09/18 10:00 12/12/18 14:30 Artificial Tears OU 1 drop QID JOVITA Administration Ascorbic Acid 500 mg 12/09/18 10:00 12/12/18 09:19 Vitamin C - PO 500 mg DAILY [facility] Administration Bisacodyl 10 mg 12/09/18 09:24 Dulcolax Suppository - RC DAILY PRN CONSTIPATION [place] Butter/Phenylephrine 1 each 12/12/18 15:15 Preparation H Suppository RC DAILY [facility] Diltiazem HCl 120 mg 12/09/18 10:00 12/12/18 09:19 Cardizem Cd - PO 120 mg DAILY [facility] Administration Docusate Sodium 100 mg 12/09/18 14:00 12/12/18 13:01 Colace - PO 100 mg TID [facility] Administration Folic Acid 1 mg 12/09/18 10:00 12/12/18 09:19 Folic Acid - PO 1 mg DAILY [facility] Administration Gabapentin 100 mg 12/09/18 09:30 12/12/18 13:02 Neurontin - PO 100 mg TID [facility] Administration Hydroxyzine HCl 25 mg 12/09/18 14:00 12/12/18 13:01 Atarax - PO 25 mg TID [facility] Administration Sodium Chloride 1,000 mls @ 42 mls/hr 12/11/18 14:45 12/12/18 14:40 1/2 Normal Saline IV Not Given ASDIR [facility] Insulin Aspart 1 vial 12/09/18 07:00 12/12/18 16:57 Novolog Vial Sliding Scale - SQ Not Given ACHS [facility] Protocol Lactic Acid 1 applic 12/09/18 10:00 12/12/18 09:20 Lac-Hydrin 12 TP 1 applic BID [facility] Administration Levothyroxine Sodium 25 mcg 12/10/18 07:00 12/12/18 06:17 Synthroid - PO 25 mcg DAILY@0700 [facility] Administration Multivit/Ca Carb/B Cmplx/FA/Prenat 1 tablet 12/09/18 10:00 12/12/18 09:19 Nephro-Majo - PO 1 tablet DAILY [facility] Administration Non-Formulary Medication 300 mg 12/09/18 10:00 Nilotinib Hcl [Tasigna] PO BID [facility] Oxycodone HCl 10 mg 12/12/18 15:08 12/12/18 15:46 Roxicodone - PO 10 mg Q6H PRN Administration PAIN LEVEL 4 - 6 Pantoprazole Sodium 40 mg 12/11/18 22:00 12/12/18 09:19 Protonix - PO 40 mg BID [facility] Administration Polyethylene Glycol 17 gm 12/12/18 13:08 12/12/18 13:14 Miralax (For Daily Use) - PO 17 grams TID [facility] Administration Pyridoxine HCl 100 mg 12/12/18 10:00 12/12/18 09:20 Vitamin B6 - PO 100 mg DAILY [facility] Administration Senna 1 tab 12/09/18 10:00 12/12/18 09:19 Senna - PO 1 tab DAILY [facility] Administration Warfarin Sodium 10 mg 12/09/18 18:00 12/11/18 17:15 Coumadin - PO 10 mg DAILY@1800 [facility] Administration ASSESSMENT/PLAN: 68 y/o female with PMH of HTN, HLDm, afib (on coumadin), CML, hypothyrodisim, previous DVTS, presented to the ED with abdominal pains found to be hyperkalemic and bradycardic. Abdominal pain; -located on right side, associated with constipation -will follow up with GI recommendations -surgery recommendations appreciated -cont Senna, Colace, Miralax, enema CML/anemia -holding tasigna due to WBC 2.2, protein gap noticed -hem onc consulted -also noted to have protein gap -follow up immunoglobulins -PRBC 1 u transfused today due to Hgb 6.9 -f/u bone survey ASA -monitor -f/u nephrology recommendation -IVF NS at 75 cc/hr changed to 1/2 NS, stopped today as per Nephro recommendations Hyperkalemia -continue hydration -low K diet -repeat EKG normalized Thrombocytopenia: -today 88 -will follow up hematology recommendations A.fib -currently appears in sinus rhythm on repeat EKG -monitor on telemetry -coumadin 10 mg qd and dilitiazem 120 mg qd COPD -duoneb prn Constipation -continue bowel regimen -Miralax TID Diabetic neuropathy -pain control, Gabapentin HTN -controlled -continue home regimen Swelling of lower extremities -chronic T2DM -diabetic diet -ISS, BGM ACHS Hypomagnesemia: -repleated Hypothyroid -continue synthroid F/E/N: no/no changes/diabetic diet DVT PPX: coumadin on hold tonight Dispo: telemetry Problem List - Problems (1) ASA (acute kidney injury) Code(s): N17.9 - ACUTE KIDNEY FAILURE, UNSPECIFIED (2) Hyperkalemia Code(s): E87.5 - HYPERKALEMIA (3) A-fib Code(s): I48.91 - UNSPECIFIED ATRIAL FIBRILLATION Qualifiers: Atrial fibrillation type: chronic Qualified Code(s): I48.2 - Chronic atrial fibrillation (4) MARIA ELENA positive Code(s): R76.8 - OTHER SPECIFIED ABNORMAL IMMUNOLOGICAL FINDINGS IN SERUM (5) Abscess of left lower extremity Code(s): L02.416 - CUTANEOUS ABSCESS OF LEFT LOWER LIMB (6) Acute kidney injury superimposed on CKD Code(s): N17.9 - ACUTE KIDNEY FAILURE, UNSPECIFIED; N18.9 - CHRONIC KIDNEY DISEASE, UNSPECIFIED (7) Acute renal insufficiency Code(s): N28.9 - DISORDER OF KIDNEY AND URETER, UNSPECIFIED (8) Altered mental status, unspecified Code(s): R41.82 - ALTERED MENTAL STATUS, UNSPECIFIED (9) Anemia due to GI blood loss Code(s): D50.0 - IRON DEFICIENCY ANEMIA SECONDARY TO BLOOD LOSS (CHRONIC) (10) Atrial fibrillation with RVR Code(s): I48.91 - UNSPECIFIED ATRIAL FIBRILLATION (11) COPD (chronic obstructive pulmonary disease) Code(s): J44.9 - CHRONIC OBSTRUCTIVE PULMONARY DISEASE, UNSPECIFIED (12) Cellulitis Code(s): L03.90 - CELLULITIS, UNSPECIFIED Qualifiers: Site of cellulitis: extremity Site of cellulitis of extremity: lower extremity Laterality: unspecified laterality Qualified Code(s): L03.119 - Cellulitis of unspecified part of limb (13) Chronic anemia Code(s): D64.9 - ANEMIA, UNSPECIFIED (14) Constipation Code(s): K59.00 - CONSTIPATION, UNSPECIFIED (15) Diabetic neuropathy Code(s): E11.40 - TYPE 2 DIABETES MELLITUS WITH DIABETIC NEUROPATHY, UNSP (16) Diabetic retinopathy associated with controlled type 2 diabetes mellitus Code(s): E11.319 - TYPE 2 DIABETES W UNSP DIABETIC RTNOP W/O MACULAR EDEMA (17) Diarrhea Code(s): R19.7 - DIARRHEA, UNSPECIFIED (18) Diverticula of colon Code(s): K57.30 - DVRTCLOS OF LG INT W/O PERFORATION OR ABSCESS W/O BLEEDING (19) Drug induced rash with eosinophilia and systemic symptoms Code(s): L27.0 - GEN SKIN ERUPTION DUE TO DRUGS AND MEDS TAKEN INTERNALLY; D72.1 - EOSINOPHILIA; T50.905A - ADVERSE EFFECT OF UNSP DRUG/MEDS/BIOL SUBST, INIT (20) Family history of GI malignancy Code(s): Z80.0 - FAMILY HISTORY OF MALIGNANT NEOPLASM OF DIGESTIVE ORGANS (21) Fecal impaction in rectum Code(s): K56.41 - FECAL IMPACTION (22) GI bleed Code(s): K92.2 - GASTROINTESTINAL HEMORRHAGE, UNSPECIFIED Qualifiers: GI bleed type/associated pathology: angiodysplasia of stomach and duodenum Qualified Code(s): K31.811 - Angiodysplasia of stomach and duodenum with bleeding (23) Groin rash Code(s): R21 - RASH AND OTHER NONSPECIFIC SKIN ERUPTION (24) HTN (hypertension) Code(s): I10 - ESSENTIAL (PRIMARY) HYPERTENSION (25) History of ERCP Code(s): Z98.890 - OTHER SPECIFIED POSTPROCEDURAL STATES (26) Hx of acute pancreatitis Code(s): Z87.19 - PERSONAL HISTORY OF OTHER DISEASES OF THE DIGESTIVE SYSTEM (27) Hypokalemia Code(s): E87.6 - HYPOKALEMIA (28) Hypoxia Code(s): R09.02 - HYPOXEMIA (29) Incisional hernia of anterior abdominal wall without obstruction or gangrene Code(s): K43.2 - INCISIONAL HERNIA WITHOUT OBSTRUCTION OR GANGRENE (30) Lymphedema Code(s): I89.0 - LYMPHEDEMA, NOT ELSEWHERE CLASSIFIED (31) Occult blood in stools Code(s): R19.5 - OTHER FECAL ABNORMALITIES (32) Post ERCP bleeding Code(s): K91.840 - POSTPROC HEMOR OF A DGSTV SYS ORG FOL A DGSTV SYS PROCEDURE (33) Puncture wound of left knee without foreign body Code(s): S81.032A - PUNCTURE WOUND WITHOUT FOREIGN BODY, LEFT KNEE, INIT ENCNTR Qualifiers: Encounter type: initial encounter Qualified Code(s): S81.032A - Puncture wound without foreign body, left knee, initial encounter (34) Sepsis Code(s): A41.9 - SEPSIS, UNSPECIFIED ORGANISM Qualifiers: Sepsis type: sepsis due to unspecified organism Qualified Code(s): A41.9 - Sepsis, unspecified organism (35) Supratherapeutic INR Code(s): R79.1 - ABNORMAL COAGULATION PROFILE (36) Swelling of lower extremity Code(s): M79.89 - OTHER SPECIFIED SOFT TISSUE DISORDERS (37) T2DM (type 2 diabetes mellitus) Code(s): E11.9 - TYPE 2 DIABETES MELLITUS WITHOUT COMPLICATIONS Qualifiers: Diabetes mellitus complication status: with neurologic complications (38) T2DM (type 2 diabetes mellitus) Code(s): E11.9 - TYPE 2 DIABETES MELLITUS WITHOUT COMPLICATIONS Qualifiers: Diabetes mellitus complication detail: with unspecified neuropathy (39) Toxic metabolic encephalopathy Code(s): G92 - TOXIC ENCEPHALOPATHY (40) Type 2 diabetes mellitus with other skin ulcer Code(s): E11.622 - TYPE 2 DIABETES MELLITUS WITH OTHER SKIN ULCER; L98.499 - NON -PRESSURE CHRONIC ULCER OF SKIN OF SITES W UNSP SEVERITY (41) UTI (urinary tract infection) Code(s): N39.0 - URINARY TRACT INFECTION, SITE NOT SPECIFIED Qualifiers: Urinary tract infection type: acute cystitis Hematuria presence: without hematuria Qualified Code(s): N30.00 - Acute cystitis without hematuria (42) Ulcer of left lower extremity Code(s): L97.929 - NON-PRS CHRONIC ULC UNSP PRT OF L LOW LEG W UNSP SEVERITY Qualifiers: Non-pressure ulcer stage: limited to breakdown of skin Qualified Code(s): L97.921 - Non-pressure chronic ulcer of unspecified part of left lower leg limited to breakdown of skin (43) Abnormal LFTs Code(s): R79.89 - OTHER SPECIFIED ABNORMAL FINDINGS OF BLOOD CHEMISTRY (44) Acute respiratory failure Code(s): J96.00 - ACUTE RESPIRATORY FAILURE, UNSP W HYPOXIA OR HYPERCAPNIA Qualifiers: Respiratory failure complication: hypoxia Qualified Code(s): J96.01 - Acute respiratory failure with hypoxia (45) Anemia Code(s): D64.9 - ANEMIA, UNSPECIFIED Qualifiers: Anemia type: other cause Other causes of anemia: chronic disease, other Qualified Code(s): D63.8 - Anemia in other chronic diseases classified elsewhere (46) CHF (congestive heart failure) Code(s): I50.9 - HEART FAILURE, UNSPECIFIED (47) CML (chronic myelocytic leukemia) Code(s): C92.10 - CHRONIC MYELOID LEUK, BCR/ABL-POSITIVE, NOT ACHIEVE REMIS (48) COPD (chronic obstructive pulmonary disease) Code(s): J44.9 - CHRONIC OBSTRUCTIVE PULMONARY DISEASE, UNSPECIFIED (49) Cellulitis of leg, left Code(s): L03.116 - CELLULITIS OF LEFT LOWER LIMB (50) Diabetes Code(s): E11.9 - TYPE 2 DIABETES MELLITUS WITHOUT COMPLICATIONS (51) Diabetic foot ulcer Code(s): E11.621 - TYPE 2 DIABETES MELLITUS WITH FOOT ULCER; L97.509 - NON- PRESSURE CHRONIC ULCER OTH PRT UNSP FOOT W UNSP SEVERITY Qualifiers: Diabetic foot ulcer location: heel Diabetes mellitus type: type 2 Laterality: right Non-pressure ulcer stage: with necrosis of muscle Qualified Code(s): E11.621 - Type 2 diabetes mellitus with foot ulcer (52) Heel ulcer due to DM Code(s): E11.621 - TYPE 2 DIABETES MELLITUS WITH FOOT ULCER; L97.409 - NON-PRS CHRONIC ULCER OF UNSP HEEL AND MIDFOOT W UNSP SEVERT Qualifiers: Diabetes mellitus type: type 2 Laterality: left Non-pressure ulcer stage : with fat layer exposed Qualified Code(s): E11.621 - Type 2 diabetes mellitus with foot ulcer; L97.422 - Non-pressure chronic ulcer of left heel and midfoot with fat layer exposed; L97.422 - Non-pressure chronic ulcer of left heel and midfoot with fat layer exposed; L97.422 - Non-pressure chronic ulcer of left heel and midfoot with fat layer exposed; L97.422 - Non-pressure chronic ulcer of left heel and midfoot with fat layer exposed (53) Hyperglycemia Code(s): R73.9 - HYPERGLYCEMIA, UNSPECIFIED (54) Hyperlipidemia Code(s): E78.5 - HYPERLIPIDEMIA, UNSPECIFIED (55) Hypertension Code(s): I10 - ESSENTIAL (PRIMARY) HYPERTENSION (56) Hypothyroid Code(s): E03.9 - HYPOTHYROIDISM, UNSPECIFIED (57) Osteomyelitis of foot Code(s): M86.9 - OSTEOMYELITIS, UNSPECIFIED (58) Right knee pain Code(s): M25.561 - PAIN IN RIGHT KNEE (59) Thrombocytopenia Code(s): D69.6 - THROMBOCYTOPENIA, UNSPECIFIED Visit type - Emergency Visit Emergency Visit: Yes ED Registration Date: 12/08/18 Care time: The patient presented to the Emergency Department on the above date and was hospitalized for further evaluation of their emergent condition. - New Patient This patient is new to me today: No - Critical Care Critical Care patient: No
--- NOTE | 2018-12-12 17:27 | PN ---
Progress Note (short form) - Note Progress Note: Patient seen and examined Feels somewhat energized after transfusion Last Vital Signs Temp Pulse Resp BP Pulse Ox 98.7 F 73 18 151/74 100 12/12/18 14:35 12/12/18 14:35 12/12/18 14:35 12/12/18 14:35 12/12/18 09:00 HEENT: MICHELLE, EOM Intact Cor: atrial fib Lungs: Clear to P&A Abd: Soft, Normal bowel sounds, No organomegaly Ext LE edema Skin: dressing LLE CBC, BMP 12/12/18 05:30 12/12/18 05:30 Current Medications Generic Name Dose Route Start Last Admin Trade Name Freq PRN Reason Stop Dose Admin Al Hydroxide/Mg Hydroxide 30 ml 12/09/18 09:24 12/11/18 13:43 Mylanta Oral Suspension - PO 30 ml Q6H PRN Administration heartburn Albuterol/Ipratropium 1 amp 12/09/18 19:01 12/11/18 19:40 Duoneb - NEB 1 amp Q4H PRN Administration SHORTNESS OF BREATH Artificial Tears 1 drop 12/09/18 10:00 12/12/18 14:30 Artificial Tears OU 1 drop QID JOVITA Administration Ascorbic Acid 500 mg 12/09/18 10:00 12/12/18 09:19 Vitamin C - PO 500 mg DAILY [facility] Administration Bisacodyl 10 mg 12/09/18 09:24 Dulcolax Suppository - RC DAILY PRN CONSTIPATION [place] Butter/Phenylephrine 1 each 12/12/18 15:15 Preparation H Suppository RC DAILY [facility] Diltiazem HCl 120 mg 12/09/18 10:00 12/12/18 09:19 Cardizem Cd - PO 120 mg DAILY [facility] Administration Docusate Sodium 100 mg 12/09/18 14:00 12/12/18 13:01 Colace - PO 100 mg TID [facility] Administration Folic Acid 1 mg 12/09/18 10:00 12/12/18 09:19 Folic Acid - PO 1 mg DAILY [facility] Administration Gabapentin 100 mg 12/09/18 09:30 12/12/18 13:02 Neurontin - PO 100 mg TID [facility] Administration Hydroxyzine HCl 25 mg 12/09/18 14:00 12/12/18 13:01 Atarax - PO 25 mg TID [facility] Administration Sodium Chloride 1,000 mls @ 42 mls/hr 12/11/18 14:45 12/12/18 14:40 1/2 Normal Saline IV Not Given ASDIR [facility] Insulin Aspart 1 vial 12/09/18 07:00 12/12/18 16:57 Novolog Vial Sliding Scale - SQ Not Given ACHS [facility] Protocol Lactic Acid 1 applic 12/09/18 10:00 12/12/18 09:20 Lac-Hydrin 12 TP 1 applic BID [facility] Administration Levothyroxine Sodium 25 mcg 12/10/18 07:00 12/12/18 06:17 Synthroid - PO 25 mcg DAILY@0700 [facility] Administration Multivit/Ca Carb/B Cmplx/FA/Prenat 1 tablet 12/09/18 10:00 12/12/18 09:19 Nephro-Majo - PO 1 tablet DAILY [facility] Administration Non-Formulary Medication 300 mg 12/09/18 10:00 Nilotinib Hcl [Tasigna] PO BID [facility] Oxycodone HCl 10 mg 12/12/18 15:08 12/12/18 15:46 Roxicodone - PO 10 mg Q6H PRN Administration PAIN LEVEL 4 - 6 Pantoprazole Sodium 40 mg 12/11/18 22:00 12/12/18 09:19 Protonix - PO 40 mg BID [facility] Administration Polyethylene Glycol 17 gm 12/12/18 13:08 12/12/18 13:14 Miralax (For Daily Use) - PO 17 grams TID [facility] Administration Pyridoxine HCl 100 mg 12/12/18 10:00 12/12/18 09:20 Vitamin B6 - PO 100 mg DAILY [facility] Administration Senna 1 tab 12/09/18 10:00 12/12/18 09:19 Senna - PO 1 tab DAILY [facility] Administration Warfarin Sodium 10 mg 12/09/18 18:00 12/11/18 17:15 Coumadin - PO 10 mg DAILY@1800 [facility] Administration Impression: CML Pancytopenia s/p tasigna therapy S/P transfusion therapy "M" protein Plan : Continue to hold tasigna Check CBC Await protein studies Bone survey.
[2018-12-12] MEDS ORDERED: PT OWN MED DRAWER 7, Y5N ONE (17:45)
--- NOTE | 2018-12-12 19:12 | PN ---
Progress Note (short form) - Note Progress Note: surgery pt seen and examined this am. full consult dictated. 68f admitted for abd pain , in isolation for neutropenic precautions, myeloma, thrombocytompenia, hgb 6 from chronic small bowel bleed, on coumadin IRN 2.5 for afib, history of diastolic chf, moderate pulm htn, cardiac valve disease seen on CT, copd, previous open cholecystectomy with mesh placement, ercp complicated by sphincter bleed, dm on insulin.....complains of abd pain after meals in ruq relieved by lying down. Request to eval for ruq hernia. Ct does not show hernia but possible small fat containing hernia visible. on exam there is laxity of lateral abd wall at incision site with no definitive defect or hernia appreciated. Plan- unlikely that a hernia not seen on ct or appreciated on exam is causing gi symptoms. Pt could consider exploration of her abd wall and likely small fat containing defects would be found. This would be a major undertaking with risk of bowel injury and may need removal of old mesh. Pt is currently no in good condition to undergo major surgery that would not likely be therapeutic and if it is therapeutic would not likely be worth the risk. Consider lidoderm patch. search for other sources of pain. would not recommend surgery.
--- NOTE | 2018-12-12 20:59 | CONS ---
DATE OF CONSULTATION: 12/12/2018 REASON FOR CONSULTATION: Right upper quadrant hernia, abdominal pain. This is an inpatient consultation at the request of Dr. Faye Velazquez. BRIEF HISTORY: A 68-year-old female with multiple medical problems. She has been admitted to [facility] for abdominal pain. She is currently in an isolation room due to neutropenia which is secondary to myeloma. She also has thrombocytopenia and anemia with a hemoglobin of 6.9. This is felt to be secondary to a chronic bleed from a small bowel lesion. She also takes Coumadin for atrial fibrillation. She also has listed in her chart moderate pulmonary hypertension as well as diastolic congestive heart failure. She also suffers from COPD, insulin dependent diabetes, hypothyroid disease as well. In the past she had an open cholecystectomy requiring a mesh closure at some point. She also later underwent an ERCP sphincterotomy that was complicated by a sphincter bleed. She is currently on Coumadin with INR of 2.56. Her albumin is low at 2.0. She complains for several months of abdominal pain after eating food that is alleviated by lying down. The pain appears to occur in her upper abdomen more so on her right side. It was felt that she may have a hernia at her incision site from her previous open cholecystectomy. She had a CAT scan of her abdomen and pelvis done 4 days ago which does not show a hernia that is noted by the senior maintenance machinist. There are abnormalities of her bladder. There is significant degenerative disk disease of her lumbar spine. There is noted to be pneumobilia. There is noted to be kidney stones. There is no evidence of obstruction of her bowel. She is noted to be constipated. But no mention of an incisional hernia. On my review of the CT, it appears to be significant laxity in the abdominal wall on the right side, and perhaps there is a small fat containing hernia, but it is unclear if this should be above or below a previously placed mesh. There is no obvious bowel involvement in the hernia that I am able to note, which is consistent with the senior maintenance machinist's report. PAST MEDICAL HISTORY: The patient's past medical history is as in the HPI. In addition, she has peptic ulcer disease, gastritis, hypertension. MEDICATION: Her home medications are reviewed, they involve albuterol, Neurontin, Coumadin, Cardizem, Synthroid, insulin, Demadex, Tasigna. FAMILY HISTORY: Significant for a father with liver cancer and a mother with stomach cancer. REVIEW OF SYSTEMS: GENERAL: Denies fatigue. CARDIAC: Denies chest pain. RESPIRATORY: Denies shortness of breath, wheeze. GASTROINTESTINAL: As in HPI. Denies nausea, denies vomiting, denies diarrhea, denies constipation. GENITOURINARY: Denies dysuria. MUSCULOSKELETAL: Admits to arthritic pains. PSYCHIATRIC: Denies anxiety, depression, hearing voices. PHYSICAL EXAMINATION: GENERAL: This is an overweight 68-year-old female in no distress. VITAL SIGNS: She is afebrile. Vital signs are stable. HEAD: Normocephalic, sclerae anicteric. NECK: Supple. CHEST: Clear. ABDOMEN: Soft. She has a laxity of her right abdominal wall. She has possible mesh appreciated underneath the incision. There are areas of weakness but no obvious defects and no obvious hernia appreciated. The remainder of abdominal exam is benign. EXTREMITIES: She has trace edema . Of note, she is in the isolation room because of neutropenic precautions. LABORATORY: On review of her laboratory, her white blood cell count is low at 2.1. Her hemoglobin is low at 6.9, her platelet count is low at 89. Her INR is super therapeutic at 3.28. Her chemistry shows an albumin of 2.0. ASSESSMENT: A 68-year-old female with multiple medical problems currently neutropenic in isolation room receiving precautions. Anemic secondary to use of Coumadin as well as a small bowel vascular lesion, noted to be thrombocytopenic from myeloma, with a complicated open cholecystectomy with mesh placement and develops abdominal pain postprandially resolved from lying down. At this point I doubt the patient has a hernia that is the source of her pain, especially since none is seen on CAT scan, and if she does have a small sac containing hernia, then unlikely this would explain her symptoms. In either event, patient could consider exploratory surgery to look for small defects and reconstruct her abdominal wall and remove her old mesh. This would be a major undertaking with possible bowel injury and in my opinion would not be warranted, as it would be unlikely to be therapeutic, and if it was therapeutic, the benefit would not warrant the risk. Furthermore with her pulmonary hypertension, diastolic congestive heart failure, neutropenia, thrombocytopenia, myeloma, diabetes. It is also unclear if she is a candidate for surgery at all, especially in a community hospital. At this point, would not recommend surgical exploration, would consider other sources of her pain, also consider Lidoderm patch to see if that alleviates some of her symptoms, as she may have muscle strain from the mesh or muscle tear in that area. Overall based on her physical examination, CAT scan findings and history, I have low concern that she has any problem in her abdominal wall on the right side that would put her at risk of serious jeopardy . There is no involvement of her bowel being compromised, and no sign of infection and at worst, this is causing her some discomfort. DO GABY HOWELL/[id number]
[2018-12-12 23:50] VITALS: BMI 31.6
[2018-12-13] MEDS: INSULIN SLIDING SCALE (NOVOLOG) 1 VIAL SQ SCH ×3 (06:06→17:20)
[2018-12-13] MEDS: GABAPENTIN 100 MG CAPSULE (FP) PO SCH ×2 (06:53→13:57)
[2018-12-13] MEDS: LEVOTHYROXINE NA 25 MCG TABLET (FP) PO SCH (06:53)
[2018-12-13] MEDS: DOCUSATE SODIUM 100 MG CAPSULE (FP) PO SCH ×2 (06:53→13:57)
[2018-12-13] MEDS: hydrOXYzine HCL 25 MG TABLET (FP) PO SCH ×2 (06:54→13:58)
[2018-12-13] MEDS: POLYETHYLENE GLYCOL 3350 119 GM BTL PO SCH ×2 (06:54→14:02)
[2018-12-13] MEDS: oxyCODONE HCL 5 MG TABLET PO PRN ×2 (06:58→13:58)
[2018-12-13 06:59] LABS: BASO % 0.4 % (0-2.0); EOS % 5.1 % (0-4.5); HEMATOCRIT 24.3 % (32.4-45.2); HEMOGLOBIN 8.5 GM/dL (10.7-15.3); LYMPH % 35.2 % (8-40); MCH 33.6 pg (25.7-33.7); MCHC 34.9 g/dl (32.0-36.0); MEAN CELL VOLUME 96.4 fl (80-96); MEAN PLT VOLUME 7.1 fl (7.5-11.1); MONO % 4.8 % (3.8-10.2); NEUT % 54.5 % (42.8-82.8); PLATELET COUNT 80 K/MM3 (134-434); RBC 2.52 M/mm3 (3.60-5.2); RDW 21.7 % (11.6-15.6); WHITE BLOOD COUNT 2.2 K/mm3 (4.0-10.0)
[2018-12-13 07:41] LABS: ALBUMIN 2.1 g/dl (3.4-5.0); ALK PHOS 114 U/L (45-117); ANION GAP 6 MMOL/L (8-16); BILIRUBIN,TOTAL 0.6 mg/dL (0.2-1); BLOOD UREA NITROGEN 21 mg/dL (7-18); CHLORIDE 106 mmol/L (98-107); CO2 23 mmol/L (21-32); CREATININE 0.8 mg/dL (0.55-1.3); GLUCOSE,RANDOM 106 mg/dL (74-106); MAGNESIUM 1.8 mg/dL (1.8-2.4); POTASSIUM 4.3 mmol/L (3.5-5.1); SGOT/AST 17 U/L (15-37); SGPT/ALT 15 U/L (13-61); SODIUM 135 mmol/L (136-145); TOT PROT 9.7 g/dl (6.4-8.2)
[2018-12-13 08:07] LABS: IGA IMMUNOGLOBULIN 3897 mg/dL (87-352); IGG IMMUNOGLOBULIN 619 mg/dL (700-1600); IGM IMMUNOGLOBULIN 30 mg/dL (26-217)
[2018-12-13] MEDS: PANTOPRAZOLE 40 MG TABLET (FP) PO SCH (10:00)
[2018-12-13] MEDS: VITAMIN B COMP W-C 1 EA TABLET PO SCH (10:00)
[2018-12-13] MEDS: PYRIDOXINE HCL (B-6) 50 MG TABLET (FP) PO SCH (10:01)
[2018-12-13] MEDS: SENNOSIDES 8.6MG TABLET (FP) PO SCH (10:01)
[2018-12-13 10:02] LABS: INR 2.48 (0.83-1.09); PROTHROMBIN TIME (PATIENT) 29.5 SEC (9.7-13.0)
[2018-12-13] MEDS: AMMONIUM LACTATE 12% LOTION 225 GM BOTTLE TP SCH (10:02)
[2018-12-13] MEDS: ARTIFICIAL TEARS (POLYVINYL ALCOHOL) OPTH DROPS OU SCH ×2 (10:02→14:15)
[2018-12-13] MEDS: FOLIC ACID 1 MG TABLET (FP) PO SCH (10:03)
[2018-12-13] MEDS: ASCORBIC ACID 500 MG TABLET (FP) PO SCH (10:03)
[2018-12-13] MEDS: PHENYLEPHRINE HCL/COCOA BUTTER SUPPOSITORY RC SCH (10:30)
[2018-12-13 11:38] LABS: ANISOCYTOSIS 1+; MACROCYTOSIS 1+; PLATELET ESTIMATE DECREASED
--- NOTE | 2018-12-13 11:42 | PN ---
Physical Exam: SUBJECTIVE: Patient seen and examined at bedside. No new complaints today. OBJECTIVE: Vital Signs Temperature 97.4 F L 12/13/18 02:00 Pulse Rate 62 12/13/18 06:00 Respiratory Rate 20 12/13/18 06:00 Blood Pressure 157/75 12/13/18 06:00 O2 Sat by Pulse Oximetry (%) 100 12/12/18 09:00 GENERAL: Awake, alert, in no acute distress. HEAD: Normal with no signs of trauma. EYES: extraocular movements intact, sclera anicteric, conjunctiva clear. LUNGS: CTA B/L HEART: RRR, S1+ S2+ ABDOMEN: soft; non-tender, normoactive BS EXREMITIES: warm;well-perfused NEUROLOGICAL: Normal speech. Gait not observed. SKIN: Warm, dry Laboratory Results - last 24 hr 12/10/18 12/12/18 12/12/18 06:31 05:30 16:15 WBC RBC Hgb Hct MCV MCH MCHC RDW Plt Count MPV Absolute Neuts (auto) Neutrophils % Lymphocytes % Monocytes % Eosinophils % Basophils % Nucleated RBC % PT with INR 39.20 H INR 3.28 H Sodium Potassium Chloride Carbon Dioxide Anion Gap BUN Creatinine Creat Clearance w eGFR POC Glucometer Random Glucose Calcium Magnesium Total Bilirubin AST ALT Alkaline Phosphatase Total Protein Albumin Tcwav-5-Zkvvcrxut (%) 5.6 Hpmao-5-Ncjbbyezs (%) 6.4 Beta Globulins (%) 16.8 Gamma Globulins (%) 6.0 M-Chris % Not observed Urine Total Protein 40.0 Urine PEP Interpret 65.3 IgG 619 L IgA 3897 H IgM 30 Ref Test Comments 12/12/18 12/12/18 12/13/18 16:48 21:27 05:30 WBC 2.2 L RBC 2.52 L Hgb 8.5 L Hct 24.3 L D MCV 96.4 H MCH 33.6 MCHC 34.9 RDW 21.7 H Plt Count 80 L MPV 7.1 L Absolute Neuts (auto) 1.2 L Neutrophils % 54.5 Lymphocytes % 35.2 Monocytes % 4.8 Eosinophils % 5.1 H Basophils % 0.4 Nucleated RBC % 0 PT with INR INR Sodium Potassium Chloride Carbon Dioxide Anion Gap BUN Creatinine Creat Clearance w eGFR POC Glucometer 122 149 Random Glucose Calcium Magnesium Total Bilirubin AST ALT Alkaline Phosphatase Total Protein Albumin Nxqsu-8-Wdpkqkloi (%) Chavd-3-Nnvppjvch (%) Beta Globulins (%) Gamma Globulins (%) M-Chris % Urine Total Protein Urine PEP Interpret IgG IgA IgM Ref Test Comments 12/13/18 12/13/18 12/13/18 05:30 05:57 06:00 WBC RBC Hgb Hct MCV MCH MCHC RDW Plt Count MPV Absolute Neuts (auto) Neutrophils % Lymphocytes % Monocytes % Eosinophils % Basophils % Nucleated RBC % PT with INR INR Sodium 135 L Potassium 4.3 Chloride 106 Carbon Dioxide 23 Anion Gap 6 L BUN 21 H Creatinine 0.8 Creat Clearance w eGFR 70.91 POC Glucometer 92 88 Random Glucose 106 Calcium 8.0 L Magnesium 1.8 Total Bilirubin 0.6 AST 17 ALT 15 Alkaline Phosphatase 114 Total Protein 9.7 H Albumin 2.1 L Tgeyf-5-Cziuvkryj (%) Dyykb-2-Qtwwrpyrl (%) Beta Globulins (%) Gamma Globulins (%) M-Chris % Urine Total Protein Urine PEP Interpret IgG IgA IgM Ref Test Comments 12/13/18 09:10 WBC RBC Hgb Hct MCV MCH MCHC RDW Plt Count MPV Absolute Neuts (auto) Neutrophils % Lymphocytes % Monocytes % Eosinophils % Basophils % Nucleated RBC % PT with INR 29.50 H INR 2.48 H Sodium Potassium Chloride Carbon Dioxide Anion Gap BUN Creatinine Creat Clearance w eGFR POC Glucometer Random Glucose Calcium Magnesium Total Bilirubin AST ALT Alkaline Phosphatase Total Protein Albumin Vlctt-1-Lhploetlf (%) Lpoec-8-Yyzercnbp (%) Beta Globulins (%) Gamma Globulins (%) M-Chris % Urine Total Protein Urine PEP Interpret IgG IgA IgM Ref Test Comments Active Medications Generic Name Dose Route Start Last Admin Trade Name Freq PRN Reason Stop Dose Admin Al Hydroxide/Mg Hydroxide 30 ml 12/09/18 09:24 12/11/18 13:43 Mylanta Oral Suspension - PO 30 ml Q6H PRN Administration heartburn Albuterol/Ipratropium 1 amp 12/09/18 19:01 12/11/18 19:40 Duoneb - NEB 1 amp Q4H PRN Administration SHORTNESS OF BREATH Artificial Tears 1 drop 12/09/18 10:00 12/13/18 10:02 Artificial Tears OU 1 drop QID JOVITA Administration Ascorbic Acid 500 mg 12/09/18 10:00 12/13/18 10:03 Vitamin C - PO 500 mg DAILY JOVITA Administration Bisacodyl 10 mg 12/09/18 09:24 Dulcolax Suppository - RC DAILY PRN CONSTIPATION Barnard Butter/Phenylephrine 1 each 12/12/18 15:15 12/12/18 21:53 Preparation H Suppository RC 1 each DAILY JOVITA Administration Diltiazem HCl 120 mg 12/09/18 10:00 12/13/18 10:00 Cardizem Cd - PO 120 mg DAILY JOVITA Administration Docusate Sodium 100 mg 12/09/18 14:00 12/13/18 06:53 Colace - PO 100 mg TID JOVITA Administration Folic Acid 1 mg 12/09/18 10:00 12/13/18 10:03 Folic Acid - PO 1 mg DAILY JOVITA Administration Gabapentin 100 mg 12/09/18 09:30 12/13/18 06:53 Neurontin - PO 100 mg TID JOVITA Administration Hydroxyzine HCl 25 mg 12/09/18 14:00 12/13/18 06:54 Atarax - PO 25 mg TID JOVITA Administration Insulin Aspart 1 vial 12/09/18 07:00 12/13/18 06:06 Novolog Vial Sliding Scale - SQ Not Given ACHS [facility] Protocol Lactic Acid 1 applic 12/09/18 10:00 12/13/18 10:02 Lac-Hydrin 12 TP 1 applic BID JOVITA Administration Levothyroxine Sodium 25 mcg 12/10/18 07:00 12/13/18 06:53 Synthroid - PO 25 mcg DAILY@0700 JOVITA Administration Multivit/Ca Carb/B Cmplx/FA/Prenat 1 tablet 12/09/18 10:00 12/13/18 10:00 Nephro-Majo - PO 1 tablet DAILY JOVITA Administration Non-Formulary Medication 300 mg 12/09/18 10:00 Nilotinib Hcl [Tasigna] PO BID JOVITA Oxycodone HCl 10 mg 12/12/18 15:08 12/13/18 06:58 Roxicodone - PO 10 mg Q6H PRN Administration PAIN LEVEL 4 - 6 Pantoprazole Sodium 40 mg 12/11/18 22:00 12/13/18 10:00 Protonix - PO 40 mg BID JOVITA Administration Polyethylene Glycol 17 gm 12/12/18 13:08 12/13/18 06:54 Miralax (For Daily Use) - PO 17 grams TID JOVITA Administration Pyridoxine HCl 100 mg 12/12/18 10:00 12/13/18 10:01 Vitamin B6 - PO 100 mg DAILY JOVITA Administration Senna 1 tab 12/09/18 10:00 12/13/18 10:01 Senna - PO 1 tab DAILY JOVITA Administration Warfarin Sodium 10 mg 12/09/18 18:00 12/11/18 17:15 Coumadin - PO 10 mg DAILY@1800 JOVITA Administration ASSESSMENT/PLAN: 68 y/o F w/PMH of Afib (on coumadin), HTN, HLD, CML, COPD, hx of DVTs, hypothyroidism, chronic back pain from NH presented to the ER w/abdominal pain. Found to be bradycardic and hyperkalemic to 7.3. Heme consulted for history of CML. -CML -will hold tasigna currently with low leukocytes -Elevated protein gap / multiple myeloma -Elevated M-spike, IgA elevated. f/u free light chain ratio. -Bone survey for today -Had recent bone biopsy at [facility] which showed elevated plasma cells. -Pancytopenia -Transfuse in AM, type and screen ordered now. -Monitor CBC -may be secondary to tasigna (myelosupression) Visit type - Emergency Visit Emergency Visit: Yes ED Registration Date: 12/08/18 Care time: The patient presented to the Emergency Department on the above date and was hospitalized for further evaluation of their emergent condition. - New Patient This patient is new to me today: No - Critical Care Critical Care patient: No
[2018-12-13 15:12] VITALS: BP 167/75; PULSE 67; TEMP 97.8
[2018-12-13 16:17] LABS: BETA-2-MICROGLOBULIN 6.6 mg/L (0.6-2.4)
--- NOTE | 2018-12-13 16:24 | PN ---
Progress Note, Physician History of Present Illness: Pt seen and examined at bedside. She is awake and appears comfortable. She is having bowel movements. - Current Medication List Current Medications: Active Medications Al Hydroxide/Mg Hydroxide (Mylanta Oral Suspension -) 30 ml PO Q6H PRN PRN Reason: heartburn Last Admin: 12/11/18 13:43 Dose: 30 ml Albuterol/Ipratropium (Duoneb -) 1 amp NEB Q4H PRN PRN Reason: SHORTNESS OF BREATH Last Admin: 12/11/18 19:40 Dose: 1 amp Artificial Tears (Artificial Tears) 1 drop OU QID [facility] Last Admin: 12/13/18 10:02 Dose: 1 drop Ascorbic Acid (Vitamin C -) 500 mg PO DAILY [facility] Last Admin: 12/13/18 10:03 Dose: 500 mg Bisacodyl (Dulcolax Suppository -) 10 mg RC DAILY PRN PRN Reason: CONSTIPATION Morton Butter/Phenylephrine (Preparation H Suppository) 1 each RC DAILY [facility] Last Admin: 12/13/18 10:30 Dose: Not Given Diltiazem HCl (Cardizem Cd -) 120 mg PO DAILY [facility] Last Admin: 12/13/18 10:00 Dose: 120 mg Docusate Sodium (Colace -) 100 mg PO TID [facility] Last Admin: 12/13/18 13:57 Dose: 100 mg Folic Acid (Folic Acid -) 1 mg PO DAILY [facility] Last Admin: 12/13/18 10:03 Dose: 1 mg Gabapentin (Neurontin -) 100 mg PO TID [facility] Last Admin: 12/13/18 13:57 Dose: 100 mg Hydroxyzine HCl (Atarax -) 25 mg PO TID [facility] Last Admin: 12/13/18 13:58 Dose: 25 mg Insulin Aspart (Novolog Vial Sliding Scale -) 1 vial SQ ACHS [facility]; Protocol Last Admin: 12/13/18 12:00 Dose: Not Given Lactic Acid (Lac-Hydrin 12) 1 applic TP BID [facility] Last Admin: 12/13/18 10:02 Dose: 1 applic Levothyroxine Sodium (Synthroid -) 25 mcg PO DAILY@0700 [facility] Last Admin: 12/13/18 06:53 Dose: 25 mcg Multivit/Ca Carb/B Cmplx/FA/Prenat (Nephro-Majo -) 1 tablet PO DAILY [facility] Last Admin: 04/11/19 10:00 Dose: 1 tablet Non-Formulary Medication (Nilotinib Hcl [Tasigna]) 300 mg PO BID [facility] Oxycodone HCl (Roxicodone -) 10 mg PO Q6H PRN PRN Reason: PAIN LEVEL 4 - 6 Last Admin: 12/13/18 13:58 Dose: 10 mg Pantoprazole Sodium (Protonix -) 40 mg PO BID [facility] Last Admin: 12/13/18 10:00 Dose: 40 mg Polyethylene Glycol (Miralax (For Daily Use) -) 17 gm PO TID [facility] Last Admin: 12/13/18 14:02 Dose: 17 grams Pyridoxine HCl (Vitamin B6 -) 100 mg PO DAILY [facility] Last Admin: 12/13/18 10:01 Dose: 100 mg Senna (Senna -) 1 tab PO DAILY [facility] Last Admin: 12/13/18 10:01 Dose: 1 tab Warfarin Sodium (Coumadin -) 10 mg PO DAILY@1800 [facility] Last Admin: 12/11/18 17:15 Dose: 10 mg - Objective Vital Signs: Vital Signs Temperature 97.8 F 12/13/18 10:00 Pulse Rate 67 12/13/18 10:00 Respiratory Rate 20 12/13/18 10:00 Blood Pressure 167/75 12/13/18 10:00 O2 Sat by Pulse Oximetry (%) 100 12/12/18 09:00 Constitutional: Yes: Calm Eyes: Yes: Conjunctiva Clear HENT: Yes: Atraumatic Neck: Yes: Supple Cardiovascular: Yes: S1, S2 Respiratory: Yes: CTA Bilaterally Gastrointestinal: Yes: Soft, Abdomen, Obese Genitourinary: Yes: WNL Musculoskeletal: Yes: WNL Edema: Yes Edema: LLE: 1+, RLE: 1+ Neurological: Yes: Oriented Psychiatric: Yes: Oriented Labs: CBC, BMP 12/13/18 05:30 12/13/18 05:30 INR, PTT INR 2.48 (0.83-1.09) H 12/13/18 09:10 Problem List - Problems (1) ASA (acute kidney injury) Code(s): N17.9 - ACUTE KIDNEY FAILURE, UNSPECIFIED (2) Hyperkalemia Code(s): E87.5 - HYPERKALEMIA Assessment/Plan Current Medications Generic Name Dose Route Start Last Admin Trade Name Freq PRN Reason Stop Dose Admin Al Hydroxide/Mg Hydroxide 30 ml 12/09/18 09:24 12/11/18 13:43 Mylanta Oral Suspension - PO 30 ml Q6H PRN Administration heartburn Albuterol/Ipratropium 1 amp 12/09/18 19:01 12/11/18 19:40 Duoneb - NEB 1 amp Q4H PRN Administration SHORTNESS OF BREATH Artificial Tears 1 drop 12/09/18 10:00 12/13/18 10:02 Artificial Tears OU 1 drop QID JOVITA Administration Ascorbic Acid 500 mg 12/09/18 10:00 12/13/18 10:03 Vitamin C - PO 500 mg DAILY JOVITA Administration Bisacodyl 10 mg 12/09/18 09:24 Dulcolax Suppository - RC DAILY PRN CONSTIPATION Morton Butter/Phenylephrine 1 each 12/12/18 15:15 12/13/18 10:30 Preparation H Suppository RC Not Given DAILY JOVITA Diltiazem HCl 120 mg 12/09/18 10:00 12/13/18 10:00 Cardizem Cd - PO 120 mg DAILY [facility] Administration Docusate Sodium 100 mg 12/09/18 14:00 12/13/18 13:57 Colace - PO 100 mg TID JOIVTA Administration Folic Acid 1 mg 12/09/18 10:00 12/13/18 10:03 Folic Acid - PO 1 mg DAILY JOVITA Administration Gabapentin 100 mg 12/09/18 09:30 12/13/18 13:57 Neurontin - PO 100 mg TID JOVITA Administration Hydroxyzine HCl 25 mg 12/09/18 14:00 12/13/18 13:58 Atarax - PO 25 mg TID JOVITA Administration Insulin Aspart 1 vial 12/09/18 07:00 12/13/18 12:00 Novolog Vial Sliding Scale - SQ Not Given ACHS [facility] Protocol Lactic Acid 1 applic 12/09/18 10:00 12/13/18 10:02 Lac-Hydrin 12 TP 1 applic BID JOVITA Administration Levothyroxine Sodium 25 mcg 12/10/18 07:00 12/13/18 06:53 Synthroid - PO 25 mcg DAILY@0700 JOVITA Administration Multivit/Ca Carb/B Cmplx/FA/Prenat 1 tablet 12/09/18 10:00 12/13/18 10:00 Nephro-Majo - PO 1 tablet DAILY JOVITA Administration Non-Formulary Medication 300 mg 12/09/18 10:00 Nilotinib Hcl [Tasigna] PO BID JOVITA Oxycodone HCl 10 mg 12/12/18 15:08 12/13/18 13:58 Roxicodone - PO 10 mg Q6H PRN Administration PAIN LEVEL 4 - 6 Pantoprazole Sodium 40 mg 12/11/18 22:00 12/13/18 10:00 Protonix - PO 40 mg BID JOVITA Administration Polyethylene Glycol 17 gm 12/12/18 13:08 12/13/18 14:02 Miralax (For Daily Use) - PO 17 grams TID JOVITA Administration Pyridoxine HCl 100 mg 12/12/18 10:00 12/13/18 10:01 Vitamin B6 - PO 100 mg DAILY JOVITA Administration Senna 1 tab 12/09/18 10:00 12/13/18 10:01 Senna - PO 1 tab DAILY JOVITA Administration Warfarin Sodium 10 mg 12/09/18 18:00 12/11/18 17:15 Coumadin - PO 10 mg DAILY@1800 JOVITA Administration Impression 1. ASA 2. anemia 3. hyperkalemia 4. CML 5. hypothyroidism 6. HTN 7. chol 8. CHF 9. COPD 10. a-fib 11. abdominal pain 12. myeloma workup Plan - renal function stable - pt can resume home dose of thiazide - hg improved - heme onc follow up - pt did not give ua Dr Sanchez
--- NOTE | 2018-12-13 16:27 | PN ---
Teaching Attending Note Name of Resident: Fatoumata Barrios ATTENDING PHYSICIAN STATEMENT I saw and evaluated the patient. I reviewed the resident's note and discussed the case with the resident. I agree with the resident's findings and plan as documented with exceptions below. SUBJECTIVE: Patient seen and examined. tolerating diet, abdominal pain resolved. constipation resolved. No concerns otherwise. OBJECTIVE: Vital Signs Period Temp Pulse Resp BP Sys/[place] Pulse Ox Last 24 Hr 97.4 F-97.8 F 62-67 20-20 132-167/63-75 Intake & Output 12/10/18 12/11/18 12/12/18 12/13/18 23:59 23:59 23:59 23:59 Intake Total 750 1460 1230 294 Output Total 200 Balance 750 1460 1030 294 Weight 179 lb 12.48 oz 179 lb General: sitting in bed in no acute distress, positive pallor Chest: CTAB, no rales or wheezing Abdomen: soft, obese, NT Extremities: chronic skin changes with exfoliation and skin changes Home Medications Medication Instructions Recorded Albuterol Sulfate 2.5 mg IH Q8H PRN 07/18/18 Ammonium Lactate Lotion 1 applic TP ASDIR 07/18/18 [Lac-Hydrin 12] Ascorbic Acid [Vitamin C -] 500 mg PO DAILY 07/18/18 Gabapentin [Neurontin -] 100 mg PO Q8H 07/18/18 Ipratropium [place] 0.2 mg IH Q8H PRN 07/18/18 L. Acidophilus/Bifid. Animalis 1 each PO TID 07/18/18 [Probiotic 5 Billion Cell Cap] Oxycodone HCl 10 mg PO Q6H PRN 07/18/18 Polyethylene Glycol 3350 [Miralax 17 gm PO TID 07/18/18 255 gm Btl -] Vitamin B Complex 1 tab PO DAILY 07/18/18 Warfarin Na [Coumadin -] 10 mg PO HS 07/18/18 Diltiazem Cd [Cardizem Cd -] 120 mg PO DAILY cap.cd.24h 07/23/18 Docusate Sodium [Colace -] 100 mg PO TID capsule 07/23/18 Levothyroxine [Synthroid -] 25 mcg PO DAILY@0700 tablet 07/23/18 Acetaminophen [Pain Relief] 650 mg PO Q6H PRN 07/29/18 Bisacodyl Suppository [Dulcolax 10 mg RC DAILY PRN 07/29/18 Suppository -] Insulin Lispro [Humalog Kwikpen 0 unit SQ ASDIR 07/29/18 U-100] Mag Hydrox/Al Hydrox/Simeth 30 ml PO Q6H PRN 07/29/18 [Mylanta Oral Suspension -] Pantoprazole Sodium 40 mg PO DAILY 07/29/18 Nystatin Cream [Mycostatin Cream -] 1 applic TP Q6HPO applic 08/03/18 Torsemide [Demadex -] 20 mg PO DAILY tablet 08/03/18 Aa/Hydrolyzed Collagen, Whey [Lps 30 ml PO DAILY 11/14/18 15-30 Liquid] Folic Acid 1 mg PO DAILY 11/14/18 Hydroxyzine HCl 25 mg PO TID 11/14/18 Nilotinib HCl [Tasigna] 300 mg PO BID 11/14/18 Polyvinyl Alcohol [Artificial 1 drop OU QID 11/14/18 Tears] Pyridoxine HCl (B-6) [Vitamin B6 -] 100 mg PO DAILY 11/14/18 Sennosides [Senna Lax] 8.6 mg PO DAILY 11/14/18 Active Medications Al Hydroxide/Mg Hydroxide (Mylanta Oral Suspension -) 30 ml PO Q6H PRN PRN Reason: heartburn Last Admin: 12/11/18 13:43 Dose: 30 ml Albuterol/Ipratropium (Duoneb -) 1 amp NEB Q4H PRN PRN Reason: SHORTNESS OF BREATH Last Admin: 12/11/18 19:40 Dose: 1 amp Artificial Tears (Artificial Tears) 1 drop OU QID [facility] Last Admin: 12/13/18 10:02 Dose: 1 drop Ascorbic Acid (Vitamin C -) 500 mg PO DAILY [facility] Last Admin: 12/13/18 10:03 Dose: 500 mg Bisacodyl (Dulcolax Suppository -) 10 mg RC DAILY PRN PRN Reason: CONSTIPATION [place] Butter/Phenylephrine (Preparation H Suppository) 1 each RC DAILY [facility] Last Admin: 12/13/18 10:30 Dose: Not Given Diltiazem HCl (Cardizem Cd -) 120 mg PO DAILY [facility] Last Admin: 12/13/18 10:00 Dose: 120 mg Docusate Sodium (Colace -) 100 mg PO TID [facility] Last Admin: 12/13/18 13:57 Dose: 100 mg Folic Acid (Folic Acid -) 1 mg PO DAILY [facility] Last Admin: 12/13/18 10:03 Dose: 1 mg Gabapentin (Neurontin -) 100 mg PO TID [facility] Last Admin: 12/13/18 13:57 Dose: 100 mg Hydroxyzine HCl (Atarax -) 25 mg PO TID [facility] Last Admin: 12/13/18 13:58 Dose: 25 mg Insulin Aspart (Novolog Vial Sliding Scale -) 1 vial SQ ACHS [facility]; Protocol Last Admin: 12/13/18 12:00 Dose: Not Given Lactic Acid (Lac-Hydrin 12) 1 applic TP BID [facility] Last Admin: 12/13/18 10:02 Dose: 1 applic Levothyroxine Sodium (Synthroid -) 25 mcg PO DAILY@0700 [facility] Last Admin: 12/13/18 06:53 Dose: 25 mcg Multivit/Ca Carb/B Cmplx/FA/Prenat (Nephro-Majo -) 1 tablet PO DAILY [facility] Last Admin: 12/13/18 10:00 Dose: 1 tablet Non-Formulary Medication (Nilotinib Hcl [Tasigna]) 300 mg PO BID [facility] Oxycodone HCl (Roxicodone -) 10 mg PO Q6H PRN PRN Reason: PAIN LEVEL 4 - 6 Last Admin: 12/13/18 13:58 Dose: 10 mg Pantoprazole Sodium (Protonix -) 40 mg PO BID [facility] Last Admin: 12/13/18 10:00 Dose: 40 mg Polyethylene Glycol (Miralax (For Daily Use) -) 17 gm PO TID [facility] Last Admin: 12/13/18 14:02 Dose: 17 grams Pyridoxine HCl (Vitamin B6 -) 100 mg PO DAILY [facility] Last Admin: 12/13/18 10:01 Dose: 100 mg Senna (Senna -) 1 tab PO DAILY [facility] Last Admin: 12/13/18 10:01 Dose: 1 tab Warfarin Sodium (Coumadin -) 10 mg PO DAILY@1800 [facility] Last Admin: 12/11/18 17:15 Dose: 10 mg Laboratory Results - last 24 hr 12/12/18 12/12/18 12/12/18 05:30 16:15 16:48 WBC RBC Hgb Hct MCV MCH MCHC RDW Plt Count MPV Absolute Neuts (auto) Neutrophils % Neutrophils % (Manual) Band Neutrophils % Lymphocytes % Lymphocytes % (Manual) Monocytes % Monocytes % (Manual) Eosinophils % Eosinophils % (Manual) Basophils % Basophils % (Manual) Myelocytes % (Man) Promyelocytes % (Man) Blast Cells % (Manual) Nucleated RBC % Metamyelocytes Hypochromia Platelet Estimate Polychromasia Poikilocytosis Anisocytosis Microcytosis Macrocytosis PT with INR 39.20 H INR 3.28 H Sodium Potassium Chloride Carbon Dioxide Anion Gap BUN Creatinine Creat Clearance w eGFR POC Glucometer 122 Random Glucose Calcium Magnesium Total Bilirubin AST ALT Alkaline Phosphatase Total Protein Albumin Skqx-9-Fzniiaxaulvxf 6.6 H IgG 619 L IgA 3897 H IgM 30 12/12/18 12/13/18 12/13/18 21:27 05:30 05:30 WBC 2.2 L RBC 2.52 L Hgb 8.5 L Hct 24.3 L D MCV 96.4 H MCH 33.6 MCHC 34.9 RDW 21.7 H Plt Count 80 L MPV 7.1 L Absolute Neuts (auto) 1.2 L Neutrophils % 54.5 Neutrophils % (Manual) 38.9 L Band Neutrophils % 2.1 Lymphocytes % 35.2 Lymphocytes % (Manual) 40.0 D Monocytes % 4.8 Monocytes % (Manual) 7 D Eosinophils % 5.1 H Eosinophils % (Manual) 9.5 H D Basophils % 0.4 Basophils % (Manual) 0.0 Myelocytes % (Man) 0 Promyelocytes % (Man) 0 Blast Cells % (Manual) 0 Nucleated RBC % 0 Metamyelocytes 0 Hypochromia 0 Platelet Estimate Decreased Polychromasia 1+ Poikilocytosis 0 Anisocytosis 1+ Microcytosis 0 Macrocytosis 1+ PT with INR INR Sodium 135 L Potassium 4.3 Chloride 106 Carbon Dioxide 23 Anion Gap 6 L BUN 21 H Creatinine 0.8 Creat Clearance w eGFR 70.91 POC Glucometer 149 Random Glucose 106 Calcium 8.0 L Magnesium 1.8 Total Bilirubin 0.6 AST 17 ALT 15 Alkaline Phosphatase 114 Total Protein 9.7 H Albumin 2.1 L Sbqy-5-Bqyihurldflee IgG IgA IgM 12/13/18 12/13/18 12/13/18 05:57 06:00 09:10 WBC RBC Hgb Hct MCV MCH MCHC RDW Plt Count MPV Absolute Neuts (auto) Neutrophils % Neutrophils % (Manual) Band Neutrophils % Lymphocytes % Lymphocytes % (Manual) Monocytes % Monocytes % (Manual) Eosinophils % Eosinophils % (Manual) Basophils % Basophils % (Manual) Myelocytes % (Man) Promyelocytes % (Man) Blast Cells % (Manual) Nucleated RBC % Metamyelocytes Hypochromia Platelet Estimate Polychromasia Poikilocytosis Anisocytosis Microcytosis Macrocytosis PT with INR 29.50 H INR 2.48 H Sodium Potassium Chloride Carbon Dioxide Anion Gap BUN Creatinine Creat Clearance w eGFR POC Glucometer 92 88 Random Glucose Calcium Magnesium Total Bilirubin AST ALT Alkaline Phosphatase Total Protein Albumin Plmg-1-Oxzhhqcyypieq IgG IgA IgM 12/13/18 12:45 WBC RBC Hgb Hct MCV MCH MCHC RDW Plt Count MPV Absolute Neuts (auto) Neutrophils % Neutrophils % (Manual) Band Neutrophils % Lymphocytes % Lymphocytes % (Manual) Monocytes % Monocytes % (Manual) Eosinophils % Eosinophils % (Manual) Basophils % Basophils % (Manual) Myelocytes % (Man) Promyelocytes % (Man) Blast Cells % (Manual) Nucleated RBC % Metamyelocytes Hypochromia Platelet Estimate Polychromasia Poikilocytosis Anisocytosis Microcytosis Macrocytosis PT with INR INR Sodium Potassium Chloride Carbon Dioxide Anion Gap BUN Creatinine Creat Clearance w eGFR POC Glucometer 92 Random Glucose Calcium Magnesium Total Bilirubin AST ALT Alkaline Phosphatase Total Protein Albumin Uarh-4-Xgaomyowzfhbq IgG IgA IgM Microbiology 12/08/18 19:25 Blood - Peripheral Venous Blood Culture - Preliminary NO GROWTH OBTAINED AFTER 96 HOURS, INCUBATION TO CONTINUE FOR 1 DAYS. 12/08/18 19:25 Blood - Peripheral Venous Blood Culture - Preliminary NO GROWTH OBTAINED AFTER 96 HOURS, INCUBATION TO CONTINUE FOR 1 DAYS. Skeletal survey done, results pending ASSESSMENT AND PLAN: 68 yof with pMHx of HTN, hyperlipidemia, atrial fib, chronic diastolic heart failure, type 2 DM, COPD, hypothyroidism, 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 -ASA, suspect from hypovolumia/hypotension, resolved -Hyperkalemia likely from above -Junctional rhythm, suspect from severe hyperkalemia, resolved. -CML on nilotinib -Acute on chronic anemia, suspect from above +/- ongoing intermittent blood loss from vascular ectasia in the setting of coumadin -Chronic leucopenia/thrombocytopenia, suspect from above -Elevated PEP, r/o Multiple myeloma -Abdominal pain, suspect form constipation -Atrial fibrillation, on coumadin -Reported h/o DVTs -Chronic diastolic heart failure -NIDDM -HTN -Hypothyroidism -HLD -Chronic back pain Plan: ASA/Hyperkalemia resolved. Renal input appreciated. Gentle hydration. NO evidence of volume overload. Encourage oral intake. Appropriate response to PRBC, no gross bleed concerns. Hematology input noted. Current w/u suggestive of multiple myeloma. Oncology follow up at [facility] arranged, patient awake. Skeletal survey results pending. Needs close follow up for results, additional testing and work up for suspected multiple myeloma. Follow up SPEP/UPEP. Nilotinib/AC per hematology. GI input noted. Bowel regimen. Suspect patient on AC for AFib and hypercoagulable state with reported h/o DVTs. AC per hematology. ISS, diabetic renal diet. Continue diltiazem. INR Noted, resume coumadin. Continue levothyroxine/folic acid. DVTPPx on warfarin. Dispo dc back to [facility] with close outpatient oncology follow up. Plan discussed with patient and nursing in detail, all questions answered. Care co-ordinated with heme/onc.
--- NOTE | 2018-12-13 16:56 | DS ---
Physical Exam: SUBJECTIVE: Patient seen and examined. She is feeling better today, no more constipation. No overnight events. OBJECTIVE: Vital Signs Period Temp Pulse Resp BP Sys/Machado Pulse Ox Last 24 Hr 97.4 F-97.8 F 62-67 20-20 132-167/63-75 PHYSICAL EXAM GENERAL: The patient is awake, alert, and fully oriented, in no acute distress. HEAD: Normal with no signs of trauma. EYES: Extraocular movements intact, sclera anicteric, conjunctiva clear. ENT: Oropharynx clear without exudates, moist mucous membranes. NECK: Trachea midline, full range of motion, supple. LUNGS: Breath sounds equal, clear to auscultation bilaterally, no wheezes, no crackles, no accessory muscle use. HEART: Regular rate and rhythm, S1, S2 without murmur, rub or gallop. ABDOMEN: Soft, nontender, nondistended, normoactive bowel sounds, no guarding. EXTREMITIES: 2+ pulses, warm, 2+ edema. NEUROLOGICAL: Normal speech, gait not observed. PSYCH: Normal mood, normal affect. SKIN: Warm, dry, normal turgor, no rashes. LABS Laboratory Results - last 24 hr 12/12/18 12/12/18 12/12/18 05:30 16:15 16:48 WBC RBC Hgb Hct MCV MCH MCHC RDW Plt Count MPV Absolute Neuts (auto) Neutrophils % Neutrophils % (Manual) Band Neutrophils % Lymphocytes % Lymphocytes % (Manual) Monocytes % Monocytes % (Manual) Eosinophils % Eosinophils % (Manual) Basophils % Basophils % (Manual) Myelocytes % (Man) Promyelocytes % (Man) Blast Cells % (Manual) Nucleated RBC % Metamyelocytes Hypochromia Platelet Estimate Polychromasia Poikilocytosis Anisocytosis Microcytosis Macrocytosis PT with INR 39.20 H INR 3.28 H Sodium Potassium Chloride Carbon Dioxide Anion Gap BUN Creatinine Creat Clearance w eGFR POC Glucometer 122 Random Glucose Calcium Magnesium Total Bilirubin AST ALT Alkaline Phosphatase Total Protein Albumin Qyyw-6-Hjolyslqkooqn 6.6 H IgG 619 L IgA 3897 H IgM 30 12/12/18 12/13/18 12/13/18 21:27 05:30 05:30 WBC 2.2 L RBC 2.52 L Hgb 8.5 L Hct 24.3 L D MCV 96.4 H MCH 33.6 MCHC 34.9 RDW 21.7 H Plt Count 80 L MPV 7.1 L Absolute Neuts (auto) 1.2 L Neutrophils % 54.5 Neutrophils % (Manual) 38.9 L Band Neutrophils % 2.1 Lymphocytes % 35.2 Lymphocytes % (Manual) 40.0 D Monocytes % 4.8 Monocytes % (Manual) 7 D Eosinophils % 5.1 H Eosinophils % (Manual) 9.5 H D Basophils % 0.4 Basophils % (Manual) 0.0 Myelocytes % (Man) 0 Promyelocytes % (Man) 0 Blast Cells % (Manual) 0 Nucleated RBC % 0 Metamyelocytes 0 Hypochromia 0 Platelet Estimate Decreased Polychromasia 1+ Poikilocytosis 0 Anisocytosis 1+ Microcytosis 0 Macrocytosis 1+ PT with INR INR Sodium 135 L Potassium 4.3 Chloride 106 Carbon Dioxide 23 Anion Gap 6 L BUN 21 H Creatinine 0.8 Creat Clearance w eGFR 70.91 POC Glucometer 149 Random Glucose 106 Calcium 8.0 L Magnesium 1.8 Total Bilirubin 0.6 AST 17 ALT 15 Alkaline Phosphatase 114 Total Protein 9.7 H Albumin 2.1 L Gtty-9-Zespapymxclnt IgG IgA IgM 12/13/18 12/13/18 12/13/18 05:57 06:00 09:10 WBC RBC Hgb Hct MCV MCH MCHC RDW Plt Count MPV Absolute Neuts (auto) Neutrophils % Neutrophils % (Manual) Band Neutrophils % Lymphocytes % Lymphocytes % (Manual) Monocytes % Monocytes % (Manual) Eosinophils % Eosinophils % (Manual) Basophils % Basophils % (Manual) Myelocytes % (Man) Promyelocytes % (Man) Blast Cells % (Manual) Nucleated RBC % Metamyelocytes Hypochromia Platelet Estimate Polychromasia Poikilocytosis Anisocytosis Microcytosis Macrocytosis PT with INR 29.50 H INR 2.48 H Sodium Potassium Chloride Carbon Dioxide Anion Gap BUN Creatinine Creat Clearance w eGFR POC Glucometer 92 88 Random Glucose Calcium Magnesium Total Bilirubin AST ALT Alkaline Phosphatase Total Protein Albumin Xciz-1-Kriuywfhpbfet IgG IgA IgM 12/13/18 12:45 WBC RBC Hgb Hct MCV MCH MCHC RDW Plt Count MPV Absolute Neuts (auto) Neutrophils % Neutrophils % (Manual) Band Neutrophils % Lymphocytes % Lymphocytes % (Manual) Monocytes % Monocytes % (Manual) Eosinophils % Eosinophils % (Manual) Basophils % Basophils % (Manual) Myelocytes % (Man) Promyelocytes % (Man) Blast Cells % (Manual) Nucleated RBC % Metamyelocytes Hypochromia Platelet Estimate Polychromasia Poikilocytosis Anisocytosis Microcytosis Macrocytosis PT with INR INR Sodium Potassium Chloride Carbon Dioxide Anion Gap BUN Creatinine Creat Clearance w eGFR POC Glucometer 92 Random Glucose Calcium Magnesium Total Bilirubin AST ALT Alkaline Phosphatase Total Protein Albumin Fxrt-1-Kyghwzkknpqmt IgG IgA IgM HOSPITAL COURSE: Date of Admission:12/08/18 68 y.o female with PMH of Afib (on coumadin), HTN, HLD, CML, COPD, previous DVTS , chronic back pain presented to the ED with severe abdominal pain. She denied having any nausea/vomiting/diarrhea or any urinary complaints nor did she have any fevers. She came to the ED because the pain had gotten so severe that she had to come in. The patient was found to be hypotensive that improved with fluids, bradycardic and had elevated potassium. She was given treatment with improvement. She was also found to have acute kidney injury, Nephrology was consulted, resolved. Over the course of her hospitalization, the patient was found to be constipated. It resolved with Senna, Miralax and Colace. Surgery was consulted but didn't recommend the surgery (the patient has incisional hernia). The patient was also found to have cute on chronic anemia, possibly from taking medication for CML-Tasigna, also on Coumadin. That medication was held. No bleeding source was discovered, one unit of blood was transfused with good response. Hematology was consulted. She was also found to have leucopenia and thrombocytopenia, elevated PEP, r/o multiple myeloma. On discharge she was advised to follow up with her Recycling Technician in [facility]. Date of Discharge: 12/13/18 Minutes to complete discharge: 30 Discharge Summary Reason For Visit: HYPERKALEMIA Current Active Problems ASA (acute kidney injury) (Acute) Hyperkalemia (Acute) Incisional hernia of anterior abdominal wall without obstruction or gangrene ( Acute) Pneumobilia (Acute) Vascular ectasia of small intestine (Acute) Condition: Stable - Instructions Diet, Activity, Other Instructions: You were admitted to the hospital for elevated potassium and we also noticed that your kidney was affected. During your hospitalization you were treated for anemia and constipation. MEDICATIONS: Please don't take your medication Tasigna. Continue all your home medications as before, including Torsemide. Please continue to take medications for constipation, including Miralax three times a day. Ensure you have a bowel movement atleast once in 2-3 days. FOLLOW UP: With PCP in 1 week With Oncologist in [facility] next week. if you would like to follow up with Dr sandhu or Jacqueline, we provided you information to the office. With GI-Dr Velazquez in a week or two. If you have severe abdominal pain, nausea, vomiting, dizziness, weakness, or worsening of any of your symptoms, call 911 or come back to Emergency Room as soon as possible. Referrals: Carlito Longo MD [Primary Care Provider] - Faye Velazquez MD [Staff Physician] - 2 Weeks Tavon Sandhu MD [Staff Physician] - Disposition: [facility] - Home Medications Comprehensive Discharge Medication List: Ambulatory Orders Albuterol Sulfate 2.5 mg IH Q8H PRN 07/18/18 Ammonium Lactate Lotion [Lac-Hydrin 12] 1 applic TP ASDIR 07/18/18 Ascorbic Acid [Vitamin C -] 500 mg PO DAILY 07/18/18 Gabapentin [Neurontin -] 100 mg PO Q8H 07/18/18 Ipratropium [place] 0.2 mg IH Q8H PRN 07/18/18 L. Acidophilus/Bifid. Animalis [Probiotic 5 Billion Cell Cap] 1 each PO TID Oxycodone HCl 10 mg PO Q6H PRN 07/18/18 Polyethylene Glycol 3350 [Miralax 255 gm Btl -] 17 gm PO TID 07/18/18 Vitamin B Complex 1 tab PO DAILY 07/18/18 Warfarin Na [Coumadin -] 10 mg PO HS 07/18/18 Diltiazem Cd [Cardizem Cd -] 120 mg PO DAILY cap.cd.24h 07/23/18 Docusate Sodium [Colace -] 100 mg PO TID capsule 07/23/18 Levothyroxine [Synthroid -] 25 mcg PO DAILY@0700 tablet 07/23/18 Acetaminophen [Pain Relief] 650 mg PO Q6H PRN 07/29/18 Bisacodyl Suppository [Dulcolax Suppository -] 10 mg RC DAILY PRN 07/29/18 Insulin Lispro [Humalog Kwikpen U-100] 0 unit SQ ASDIR 07/29/18 Mag Hydrox/Al Hydrox/Simeth [Mylanta Oral Suspension -] 30 ml PO Q6H PRN Pantoprazole Sodium 40 mg PO DAILY 07/29/18 Nystatin Cream [Mycostatin Cream -] 1 applic TP Q6HPO applic 08/03/18 Torsemide [Demadex -] 20 mg PO DAILY tablet 08/03/18 Aa/Hydrolyzed Collagen, Whey [Lps 15-30 Liquid] 30 ml PO DAILY 11/14/18 Folic Acid 1 mg PO DAILY 11/14/18 Hydroxyzine HCl 25 mg PO TID 11/14/18 Nilotinib HCl [Tasigna] 300 mg PO BID 11/14/18 Polyvinyl Alcohol [Artificial Tears] 1 drop OU QID 11/14/18 Pyridoxine HCl (B-6) [Vitamin B6 -] 100 mg PO DAILY 11/14/18 Sennosides [Senna Lax] 8.6 mg PO DAILY 11/14/18 Problem List - Problems (1) ASA (acute kidney injury) Code(s): N17.9 - ACUTE KIDNEY FAILURE, UNSPECIFIED (2) Hyperkalemia Code(s): E87.5 - HYPERKALEMIA (3) A-fib Code(s): I48.91 - UNSPECIFIED ATRIAL FIBRILLATION Qualifiers: Atrial fibrillation type: chronic Qualified Code(s): I48.2 - Chronic atrial fibrillation (4) MARIA ELENA positive Code(s): R76.8 - OTHER SPECIFIED ABNORMAL IMMUNOLOGICAL FINDINGS IN SERUM (5) Abscess of left lower extremity Code(s): L02.416 - CUTANEOUS ABSCESS OF LEFT LOWER LIMB (6) Acute kidney injury superimposed on CKD Code(s): N17.9 - ACUTE KIDNEY FAILURE, UNSPECIFIED; N18.9 - CHRONIC KIDNEY DISEASE, UNSPECIFIED (7) Acute renal insufficiency Code(s): N28.9 - DISORDER OF KIDNEY AND URETER, UNSPECIFIED (8) Altered mental status, unspecified Code(s): R41.82 - ALTERED MENTAL STATUS, UNSPECIFIED (9) Anemia due to GI blood loss Code(s): D50.0 - IRON DEFICIENCY ANEMIA SECONDARY TO BLOOD LOSS (CHRONIC) (10) Atrial fibrillation with RVR Code(s): I48.91 - UNSPECIFIED ATRIAL FIBRILLATION (11) COPD (chronic obstructive pulmonary disease) Code(s): J44.9 - CHRONIC OBSTRUCTIVE PULMONARY DISEASE, UNSPECIFIED (12) Cellulitis Code(s): L03.90 - CELLULITIS, UNSPECIFIED Qualifiers: Site of cellulitis: extremity Site of cellulitis of extremity: lower extremity Laterality: unspecified laterality Qualified Code(s): L03.119 - Cellulitis of unspecified part of limb (13) Chronic anemia Code(s): D64.9 - ANEMIA, UNSPECIFIED (14) Constipation Code(s): K59.00 - CONSTIPATION, UNSPECIFIED (15) Diabetic neuropathy Code(s): E11.40 - TYPE 2 DIABETES MELLITUS WITH DIABETIC NEUROPATHY, UNSP (16) Diabetic retinopathy associated with controlled type 2 diabetes mellitus Code(s): E11.319 - TYPE 2 DIABETES W UNSP DIABETIC RTNOP W/O MACULAR EDEMA (17) Diarrhea Code(s): R19.7 - DIARRHEA, UNSPECIFIED (18) Diverticula of colon Code(s): K57.30 - DVRTCLOS OF LG INT W/O PERFORATION OR ABSCESS W/O BLEEDING (19) Drug induced rash with eosinophilia and systemic symptoms Code(s): L27.0 - GEN SKIN ERUPTION DUE TO DRUGS AND MEDS TAKEN INTERNALLY; D72.1 - EOSINOPHILIA; T50.905A - ADVERSE EFFECT OF UNSP DRUG/MEDS/BIOL SUBST, INIT (20) Family history of GI malignancy Code(s): Z80.0 - FAMILY HISTORY OF MALIGNANT NEOPLASM OF DIGESTIVE ORGANS (21) Fecal impaction in rectum Code(s): K56.41 - FECAL IMPACTION (22) GI bleed Code(s): K92.2 - GASTROINTESTINAL HEMORRHAGE, UNSPECIFIED Qualifiers: GI bleed type/associated pathology: angiodysplasia of stomach and duodenum Qualified Code(s): K31.811 - Angiodysplasia of stomach and duodenum with bleeding (23) Groin rash Code(s): R21 - RASH AND OTHER NONSPECIFIC SKIN ERUPTION (24) HTN (hypertension) Code(s): I10 - ESSENTIAL (PRIMARY) HYPERTENSION (25) History of ERCP Code(s): Z98.890 - OTHER SPECIFIED POSTPROCEDURAL STATES (26) Hx of acute pancreatitis Code(s): Z87.19 - PERSONAL HISTORY OF OTHER DISEASES OF THE DIGESTIVE SYSTEM (27) Hypokalemia Code(s): E87.6 - HYPOKALEMIA (28) Hypoxia Code(s): R09.02 - HYPOXEMIA (29) Incisional hernia of anterior abdominal wall without obstruction or gangrene Code(s): K43.2 - INCISIONAL HERNIA WITHOUT OBSTRUCTION OR GANGRENE (30) Lymphedema Code(s): I89.0 - LYMPHEDEMA, NOT ELSEWHERE CLASSIFIED (31) Occult blood in stools Code(s): R19.5 - OTHER FECAL ABNORMALITIES (32) Post ERCP bleeding Code(s): K91.840 - POSTPROC HEMOR OF A DGSTV SYS ORG FOL A DGSTV SYS PROCEDURE (33) Puncture wound of left knee without foreign body Code(s): S81.032A - PUNCTURE WOUND WITHOUT FOREIGN BODY, LEFT KNEE, INIT ENCNTR Qualifiers: Encounter type: initial encounter Qualified Code(s): S81.032A - Puncture wound without foreign body, left knee, initial encounter (34) Sepsis Code(s): A41.9 - SEPSIS, UNSPECIFIED ORGANISM Qualifiers: Sepsis type: sepsis due to unspecified organism Qualified Code(s): A41.9 - Sepsis, unspecified organism (35) Supratherapeutic INR Code(s): R79.1 - ABNORMAL COAGULATION PROFILE (36) Swelling of lower extremity Code(s): M79.89 - OTHER SPECIFIED SOFT TISSUE DISORDERS (37) T2DM (type 2 diabetes mellitus) Code(s): E11.9 - TYPE 2 DIABETES MELLITUS WITHOUT COMPLICATIONS Qualifiers: Diabetes mellitus complication status: with neurologic complications (38) T2DM (type 2 diabetes mellitus) Code(s): E11.9 - TYPE 2 DIABETES MELLITUS WITHOUT COMPLICATIONS Qualifiers: Diabetes mellitus complication detail: with unspecified neuropathy (39) Toxic metabolic encephalopathy Code(s): G92 - TOXIC ENCEPHALOPATHY (40) Type 2 diabetes mellitus with other skin ulcer Code(s): E11.622 - TYPE 2 DIABETES MELLITUS WITH OTHER SKIN ULCER; L98.499 - NON -PRESSURE CHRONIC ULCER OF SKIN OF SITES W UNSP SEVERITY (41) UTI (urinary tract infection) Code(s): N39.0 - URINARY TRACT INFECTION, SITE NOT SPECIFIED Qualifiers: Urinary tract infection type: acute cystitis Hematuria presence: without hematuria Qualified Code(s): N30.00 - Acute cystitis without hematuria (42) Ulcer of left lower extremity Code(s): L97.929 - NON-PRS CHRONIC ULC UNSP PRT OF L LOW LEG W UNSP SEVERITY Qualifiers: Non-pressure ulcer stage: limited to breakdown of skin Qualified Code(s): L97.921 - Non-pressure chronic ulcer of unspecified part of left lower leg limited to breakdown of skin (43) Abnormal LFTs Code(s): R79.89 - OTHER SPECIFIED ABNORMAL FINDINGS OF BLOOD CHEMISTRY (44) Acute respiratory failure Code(s): J96.00 - ACUTE RESPIRATORY FAILURE, UNSP W HYPOXIA OR HYPERCAPNIA Qualifiers: Respiratory failure complication: hypoxia Qualified Code(s): J96.01 - Acute respiratory failure with hypoxia (45) Anemia Code(s): D64.9 - ANEMIA, UNSPECIFIED Qualifiers: Anemia type: other cause Other causes of anemia: chronic disease, other Qualified Code(s): D63.8 - Anemia in other chronic diseases classified elsewhere (46) CHF (congestive heart failure) Code(s): I50.9 - HEART FAILURE, UNSPECIFIED (47) CML (chronic myelocytic leukemia) Code(s): C92.10 - CHRONIC MYELOID LEUK, BCR/ABL-POSITIVE, NOT ACHIEVE REMIS (48) COPD (chronic obstructive pulmonary disease) Code(s): J44.9 - CHRONIC OBSTRUCTIVE PULMONARY DISEASE, UNSPECIFIED (49) Cellulitis of leg, left Code(s): L03.116 - CELLULITIS OF LEFT LOWER LIMB (50) Diabetes Code(s): E11.9 - TYPE 2 DIABETES MELLITUS WITHOUT COMPLICATIONS (51) Diabetic foot ulcer Code(s): E11.621 - TYPE 2 DIABETES MELLITUS WITH FOOT ULCER; L97.509 - NON- PRESSURE CHRONIC ULCER OTH PRT UNSP FOOT W UNSP SEVERITY Qualifiers: Diabetic foot ulcer location: heel Diabetes mellitus type: type 2 Laterality: right Non-pressure ulcer stage: with necrosis of muscle Qualified Code(s): E11.621 - Type 2 diabetes mellitus with foot ulcer; L97.413 - Non-pressure chronic ulcer of right heel and midfoot with necrosis of muscle (52) Heel ulcer due to DM Code(s): E11.621 - TYPE 2 DIABETES MELLITUS WITH FOOT ULCER; L97.409 - NON-PRS CHRONIC ULCER OF UNSP HEEL AND MIDFOOT W UNSP SEVERT Qualifiers: Diabetes mellitus type: type 2 Laterality: left Non-pressure ulcer stage : with fat layer exposed Qualified Code(s): E11.621 - Type 2 diabetes mellitus with foot ulcer; L97.422 - Non-pressure chronic ulcer of left heel and midfoot with fat layer exposed (53) Hyperglycemia Code(s): R73.9 - HYPERGLYCEMIA, UNSPECIFIED (54) Hyperlipidemia Code(s): E78.5 - HYPERLIPIDEMIA, UNSPECIFIED (55) Hypertension Code(s): I10 - ESSENTIAL (PRIMARY) HYPERTENSION (56) Hypothyroid Code(s): E03.9 - HYPOTHYROIDISM, UNSPECIFIED (57) Osteomyelitis of foot Code(s): M86.9 - OSTEOMYELITIS, UNSPECIFIED (58) Right knee pain Code(s): M25.561 - PAIN IN RIGHT KNEE (59) Thrombocytopenia Code(s): D69.6 - THROMBOCYTOPENIA, UNSPECIFIED This patient is new to me today: Yes Date on this admission: 12/13/18 Emergency Visit: Yes ED Registration Date: 12/08/18 Care time: The patient presented to the Emergency Department on the above date and was hospitalized for further evaluation of their emergent condition. Critical Care patient: No - Discharge Referral Referred to [facility] Med P.C.: No
[2018-12-13] MEDS ORDERED: WARFARIN NA 10 MG TABLET (FP) PO ONE (17:09)
[2018-12-13 19:15] LABS: FREE KAPPA,SERUM 213.1 mg/L (3.3-19.4)
--- NOTE | 2018-12-13 19:40 | PN ---
Progress Note (short form) - Note Progress Note: Patient seen and examined Feels well. Denies any complaints Last Vital Signs Temp Pulse Resp BP Pulse Ox 97.8 F 67 20 167/75 100 12/13/18 10:00 12/13/18 10:00 12/13/18 10:00 12/13/18 10:00 12/12/18 09:00 Cor: RSR, No murmurs, No gallops Lungs: Clear to P&A Abd: Soft, Normal bowel sounds, No organomegaly Ext:chronic stasis dermatitis Labs/Meds reviewed A/P 68 y/o patient with CML on nilotinib, in presumed molecular remission. Now with recent BMBX at [facility] revealing IgA lambda myeloma Discussed this diagnosis with patient and her sister she will need close follow up with primary heme-onc at [facility] discussed with haydee rhoades
== END 2018-12-13 18:41 | DRG 682 ==
LOC: JER 17:35 → JERBED 22:54 → J4W 12-10 14:58
PROVIDERS: ADMIT Internal Medicine; ATTEND Hospitalist
PROC: 30233N1 Transfusion of Nonautologous Red Blood Cells into Peripheral Vein, Percutaneous Approach (ICD-10-PCS; principal; 2018-12-11)
DX: N17.9 Acute kidney failure, unspecified (principal); D61.810 Antineoplastic chemotherapy induced pancytopenia; C92.10 Chronic myeloid leukemia, BCR/ABL-positive, not having achieved remission; E87.1 Hypo-osmolality and hyponatremia; I50.32 Chronic diastolic (congestive) heart failure; I11.0 Hypertensive heart disease with heart failure; E87.5 Hyperkalemia; K43.2 Incisional hernia without obstruction or gangrene; I95.89 Other hypotension; D69.6 Thrombocytopenia, unspecified; K63.9 Disease of intestine, unspecified; K83.8 Other specified diseases of biliary tract; J44.9 Chronic obstructive pulmonary disease, unspecified; E03.9 Hypothyroidism, unspecified; E03.0 Congenital hypothyroidism with diffuse goiter; R73.9 Hyperglycemia, unspecified; I48.2 Chronic atrial fibrillation; E86.0 Dehydration; R00.1 Bradycardia, unspecified; T45.1X5A Adverse effect of antineoplastic and immunosuppressive drugs, initial encounter; F03.90 Unspecified dementia, unspecified severity, without behavioral disturbance, psychotic disturbance, mood disturbance, and anxiety; I27.20 Pulmonary hypertension, unspecified; M54.5 Low back pain; E11.319 Type 2 diabetes mellitus with unspecified diabetic retinopathy without macular edema; H54.8 Legal blindness, as defined in USA; H35.30 Unspecified macular degeneration; E11.21 Type 2 diabetes mellitus with diabetic nephropathy; K59.00 Constipation, unspecified; E11.40 Type 2 diabetes mellitus with diabetic neuropathy, unspecified; M51.16 Intervertebral disc disorders with radiculopathy, lumbar region; M79.89 Other specified soft tissue disorders; D64.9 Anemia, unspecified; K57.30 Diverticulosis of large intestine without perforation or abscess without bleeding; E86.1 Hypovolemia; Z79.01 Long term (current) use of anticoagulants; Z86.718 Personal history of other venous thrombosis and embolism
CPT/HCPCS: 36415; 36430; 36511; 71045-TC-FY; 74176-TC; 77074-TC-FY; 80048; 80053; 82232; 82570; 82784; 82962; 83605; 83690; 83735; 83883; 84100; 84132; 84155; 84156; 84157; 84165; 84300; 84443; 84484; 85025; 85610; 86334; 86850; 86900; 86901; 86922; 87040; 93005; 93010; 94640; 99285-25; J7030; P9038; P9058

== ENCOUNTER 2019-05-18 21:11 | Emergency (ER) | payer OTHER, MEDICARE ==
[2019-05-18 21:15] VITALS: BP 122/67; PULSE 85; TEMP 98.4; BMI 39.8
--- NOTE | 2019-05-18 21:55 | PDOC ---
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 Per the patient, she has her wound bandages changed weekly and the nurse changing it was concerned for infection and sent to our ED for evaluation. The patient denies any symptomatic complaints. Denies the following: fever, chills, SOB, chest pain, nausea, vomiting, abdominal pain, dysuria, hematuria, diarrhea , hematochezia, lightheadedness, and urinary urgency. Allergies: HCTZ, metronidazole, and PCN, and metoprolol. Social: Denies tobacco, alcohol, and substance abuse. Past History - Past Medical History Allergies/Adverse Reactions: Allergies Allergy/AdvReac Type Severity Reaction Status Date / Time metronidazole [From Flagyl] Allergy Severe Rash Verified 05/18/19 21:13 metoprolol Allergy Intermediate Rash Verified 05/18/19 21:13 Home Medications: Ambulatory Orders Albuterol Sulfate 2.5 mg IH Q8H PRN 07/18/18 Ammonium Lactate Lotion [Lac-Hydrin 12] 1 applic TP ASDIR 07/18/18 Ascorbic Acid [Vitamin C -] 500 mg PO DAILY 07/18/18 Gabapentin [Neurontin -] 100 mg PO BID 07/18/18 Ipratropium [place] 0.2 mg IH Q8H PRN 07/18/18 L. Acidophilus/Bifid. Animalis [Probiotic 5 Billion Cell Cap] 1 each PO TID Oxycodone HCl 10 mg PO Q6H PRN 07/18/18 Polyethylene Glycol 3350 [Miralax 255 gm Btl -] 17 gm PO TID 07/18/18 Vitamin B Complex 1 tab PO DAILY 07/18/18 Diltiazem Cd [Cardizem Cd -] 120 mg PO DAILY cap.cd.24h 07/23/18 Docusate Sodium [Colace -] 100 mg PO TID capsule 07/23/18 Levothyroxine [Synthroid -] 25 mcg PO DAILY@0700 tablet 07/23/18 Acetaminophen [Pain Relief] 650 mg PO Q6H PRN 07/29/18 Bisacodyl Suppository [Dulcolax Suppository -] 10 mg RC DAILY PRN 07/29/18 Insulin Lispro [Humalog Kwikpen U-100] 0 unit SQ ASDIR 07/29/18 Mag Hydrox/Al Hydrox/Simeth [Mylanta Oral Suspension -] 30 ml PO Q6H PRN Pantoprazole Sodium 40 mg PO DAILY 07/29/18 Nystatin Cream [Mycostatin Cream -] 1 applic TP Q6HPO applic 08/03/18 Torsemide [Demadex -] 20 mg PO DAILY tablet 08/03/18 Aa/Hydrolyzed Collagen, Whey [Lps 15-30 Liquid] 30 ml PO DAILY 11/14/18 Folic Acid 1 mg PO DAILY 11/14/18 Hydroxyzine HCl 25 mg PO TID 11/14/18 Nilotinib HCl [Tasigna] 300 mg PO BID 11/14/18 Polyvinyl Alcohol [Artificial Tears] 1 drop OU QID 11/14/18 Pyridoxine HCl (B-6) [Vitamin B6 -] 100 mg PO DAILY 11/14/18 Sennosides [Senna Lax] 8.6 mg PO DAILY 11/14/18 Eliquis 5 mg PO BID 02/26/19 Glimepiride 1 mg PO DAILY 02/26/19 Torsemide 40 mg PO HS 02/26/19 Clindamycin [Cleocin -] 600 mg PO Q8H #42 capsule 05/19/19 Anemia: Yes Asthma: No Cancer: Yes (CML) Cardiac Disorders: Yes (A-FIB) CVA: No COPD: Yes CHF: No DVT: Yes Dementia: No Diabetes: Yes GI Disorders: No Disorders: Yes (uti) HTN: Yes Hypercholesterolemia: Yes Liver Disease: Yes (fatty liver) Psychiatric Problems: Yes (depression) Seizures: No Thyroid Disease: Yes - Surgical History Abdominal Surgery: Yes (hernia) Appendectomy: No Cardiac Surgery: No Cholecystectomy: Yes Lung Surgery: No Neurologic Surgery: No Orthopedic Surgery: No - Immunization History Immunization Up to Date: Yes - Suicide/Smoking/Psychosocial Hx Smoking Status: Yes Smoking History: Never smoked Have you smoked in the past 12 months: No Number of Cigarettes Smoked Daily: 0 If you are a former smoker, when did you quit?: 10/25/2013 Cigars Per Day: 0 Information on smoking cessation initiated: No 'Breaking Loose' booklet given: 02/28/12 Hx Alcohol Use: No Drug/Substance Use Hx: No Substance Use Type: None Hx Substance Use Treatment: No Review of Systems - Review of Systems Able to Perform ROS?: Yes Is the patient limited Tristanian proficient: No Constitutional: No: Chills, Diaphoresis, Fever, Weakness HEENTM: No: Eye Pain, Ear Pain, Nose Congestion, Throat Swelling, Mouth Pain Respiratory: No: Cough, Shortness of Breath, Hemoptysis Cardiac (ROS): No: Chest Pain, Lightheadedness, Palpitations, Syncope, Chest Tightness ABD/GI: No: Constipated, Diarrhea, Nausea, Poor Appetite, Poor Fluid Intake, Rectal Bleeding, Vomiting, Tarry Stools : No: Burning, Dysuria Musculoskeletal: No: Back Pain, Joint Pain, Muscle Pain Integumentary: Yes: Lesions (ulcers located in the anterior tibia left leg. heel of the left leg with green discharge around the ulcer. ) Neurological: No: Headache, Numbness, Tingling, Tremors Psychiatric: No: Change in Appetite Endocrine: No: Unexplained Weight Gain Hematologic/Lymphatic: No: Anemia *Physical Exam - Vital Signs Last Vital Signs Temp Pulse Resp BP Pulse Ox 98.4 F 85 18 122/67 97 05/18/19 21:05/18/19 21:05/18/19 21:05/18/19 21:05/18/19 21:13 - Physical Exam General Appearance: Yes: Nourished, Appropriately Dressed. No: Apparent Distress, Intoxicated HEENT: positive: EOMI, NELLY, Normal Voice, Symmetrical, Pharynx Normal. negative: Pale Conjunctivae, Scleral Icterus (R), Scleral Icterus (L), Muffled/ Hoarse voice, Pharyngeal Erythema, Tonsillar Exudate, Tonsillar Erythema Neck: positive: Trachea midline, Supple. negative: Tender, Lymphadenopathy (R) , Lymphadenopathy (L), Tender lateral, Tender midline Respiratory/Chest: positive: Lungs Clear, Normal Breath Sounds. negative: Chest Tender, Respiratory Distress, Accessory Muscle Use Cardiovascular: positive: Regular Rhythm, Regular Rate, S1, S2. negative: Systolic Murmur Gastrointestinal/Abdominal: positive: Normal Bowel Sounds, Flat, Soft. negative : Tender Lymphatic: negative: Adenopathy Musculoskeletal: positive: Normal Inspection. negative: CVA Tenderness, Vertebral Tenderness Extremity: positive: Normal Capillary Refill, Normal Range of Motion, Tender ( left heel). negative: Normal Inspection (left heel ulcer stage 2 with green around site. left anterior lateral ulcer mckeon. right anterior mckeon ulcer. stage 2. no purulent discharge noted. 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 Initial vitals: Initial Vital Signs Temp Pulse Resp BP Pulse Ox 98.4 F 85 18 122/67 97 05/18/19 21:13 05/18/19 21:13 05/18/19 21:13 05/18/19 21:13 05/18/19 21:13 Work up: ddx: rule out osteomyelitits. on physical exam, the patient was found to have green discoloration around the left heel ulcer stage 2. The patient had an additional ulcer on the left anterior mckeon and found to have an ulcer on the right leg. Will obtain lab work and xray. Laboratory Tests 05/18/19 05/18/19 05/18/19 23:10 23:10 23:10 WBC Cancelled Corrected WBC (auto) Cancelled RBC Cancelled Hgb Cancelled Hct Cancelled MCV Cancelled MCH Cancelled MCHC Cancelled RDW Cancelled Plt Count Cancelled MPV Cancelled Absolute Neuts (auto) Cancelled Neutrophils % Cancelled Lymphocytes % Cancelled Monocytes % Cancelled Eosinophils % Cancelled Basophils % Cancelled Nucleated RBC % Cancelled Platelet Estimate Cancelled Platelet Comment Cancelled Sodium 137 Potassium 4.6 Chloride 101 Carbon Dioxide 29 Anion Gap 6 L BUN 49.6 H Creatinine 1.3 Est GFR (CKD-EPI)AfAm 48.13 Est GFR (CKD-EPI)NonAf 41.53 Random Glucose 143 H Calcium 8.3 L Total Bilirubin 0.3 AST 32 ALT 22 Alkaline Phosphatase 136 H Creatine Kinase Cancelled 52 Troponin I Cancelled < 0.02 B-Natriuretic Peptide 496.2 H Total Protein 7.0 Albumin 2.6 L 05/18/19 05/18/19 23:10 23:50 WBC 2.7 L Corrected WBC (auto) RBC 2.51 L Hgb 7.6 L Hct 23.2 L MCV 92.4 MCH 30.1 D MCHC 32.6 RDW 18.1 H Plt Count 106 L D MPV 8.8 D Absolute Neuts (auto) 1.7 Neutrophils % 62.0 Lymphocytes % 19.9 D Monocytes % 17.2 H D Eosinophils % 0.7 D Basophils % 0.2 Nucleated RBC % 0 Platelet Estimate Platelet Comment Sodium Potassium Chloride Carbon Dioxide Anion Gap BUN Creatinine Est GFR (CKD-EPI)AfAm Est GFR (CKD-EPI)NonAf Random Glucose Calcium Total Bilirubin AST ALT Alkaline Phosphatase Creatine Kinase Troponin I B-Natriuretic Peptide Cancelled Total Protein Albumin hemoglobin is low at 7.6, which is close to baseline for the patient. Xray by my read shows soft tissue swelling on the left side heel without gas noted. I spoke to the patient regarding my concerns that she can develop a serious infection. The patient refusing to be admitted for IV antibiotics. I found the patient to be sound of mind and have capacity. She stated she wants to take the antibiotics orally back at the senior living. Strict return precautions were given to her. SHe understood the need to return if her condition worsened. Dispo: Discharge *DC/Admit/Observation/Transfer Diagnosis at time of Disposition: Diabetic foot ulcer Qualifiers: Diabetic foot ulcer location: heel Diabetes mellitus type: type 2 Laterality: unspecified laterality Non-pressure ulcer stage: unspecified non-pressure ulcer stage Qualified Code(s): E11.621 - Type 2 diabetes mellitus with foot ulcer - Discharge Dispostion Disposition: HOME Decision to Admit order: No - Prescriptions Prescriptions: Clindamycin [Cleocin -] 600 mg PO Q8H #42 capsule - Referrals Referrals: Bibi Daly [Primary Care Provider] - - Patient Instructions Additional Instructions: You were seen for the evaluation of your foot ulcer. You do not have systemic features of sepsis. Please take the antibiotics as prescribed. Thank you. Your antibiotics were sent to [place] pharmacy. - Post Discharge Activity
[2019-05-19 00:03] LABS: ALBUMIN 2.6 g/dl (3.4-5.0); ALK PHOS 136 U/L (45-117); ANION GAP 6 MMOL/L (8-16); BILIRUBIN,TOTAL 0.3 mg/dL (0.2-1); BLOOD UREA NITROGEN 49.6 mg/dL (7-18); CALCIUM 8.3 mg/dL (8.5-10.1); CHLORIDE 101 mmol/L (98-107); CO2 29 mmol/L (21-32); CREATININE 1.3 mg/dL (0.55-1.3); GLUCOSE,RANDOM 143 mg/dL (74-106); N-TERMINAL BNP 496.2 pg/ml (5-125); POTASSIUM 4.6 mmol/L (3.5-5.1); SGOT/AST 32 U/L (15-37); SGPT/ALT 22 U/L (13-61); SODIUM 137 mmol/L (136-145)
[2019-05-19 00:04] LABS: BASO % 0.2 % (0-2.0); EOS % 0.7 % (0-4.5); HEMATOCRIT 23.2 % (32.4-45.2); HEMOGLOBIN 7.6 GM/dL (10.7-15.3); LYMPH % 19.9 % (8-40); MCH 30.1 pg (25.7-33.7); MCHC 32.6 g/dl (32.0-36.0); MEAN CELL VOLUME 92.4 fl (80-96); MEAN PLT VOLUME 8.8 fl (7.5-11.1); MONO % 17.2 % (3.8-10.2); PLATELET COUNT 106 K/MM3 (134-434); RBC 2.51 M/mm3 (3.60-5.2); RDW 18.1 % (11.6-15.6); WHITE BLOOD COUNT 2.7 K/mm3 (4.0-10.0)
[2019-05-19] MEDS ORDERED: CLINDAMYCIN HCL 150 MG CAPSULE (FP) PO ONE (00:42)
[2019-05-19] MEDS ORDERED: CLINDAMYCIN HCL 150 MG CAPSULE (FP) ONE (00:52)
--- NOTE | 2019-05-19 02:01 | PDOC ---
Documentation entered by Jacqueline Mejia SCRIBE, acting as scribe for Felicitas Calixto MD. Felicitas Calixto MD: This documentation has been prepared by the Roberto ventura Lincy, SCRIBE, under my direction and personally reviewed by me in its entirety. I confirm that the documentation accurately reflects all work, treatment, procedures, and medical decision making performed by me. Attending Attestation - Resident Resident Name: BlankaMiguel - ED Attending Attestation I have performed the following: I have examined & evaluated the patient, The case was reviewed & discussed with the resident, I agree w/resident's findings & plan - HPI HPI: 05/19/19 01:31 The patient is a 68-year-old female with a past medical history significant for CML, MM, Afib (on Eliquis), chronic LE swelling with wounds, hypothyroidism, and DM who presents to the emergency department with evaluation for infection in her foot. The patient presents for evaluation for infection in her foot, which she has bandaged weekly. The patient reports the [facility] facility was changing it today and was concerned for infection. Denies fever, chills, shortness of breath, or chest pain. - Physicial Exam PE: 05/19/19 01:58 GENERAL: Awake, alert, and fully oriented, in no acute distress HEAD: No signs of trauma EYES: PERRLA, EOMI, sclera anicteric, conjunctiva clear ENT: Auricles normal inspection, hearing grossly normal, nares patent, oropharynx clear without exudates. Moist mucosa NECK: Normal ROM, supple, no lymphadenopathy, JVD, or masses LUNGS: Breath sounds equal, clear to auscultation bilaterally. HEART: Regular rate and rhythm ABDOMEN: Soft, nontender. EXTREMITIES: +bilateral leg swelling thats chronic in nature. The patient was able to ambulate with assistance. NEUROLOGICAL: Cranial nerves II through XII grossly intact. Normal speech, normal gait SKIN: +pressure sore to her right buttocks. Warm, Dry. - Medical Decision Making 05/19/19 01:58 Patient is requesting to go home. 05/19/19 23:29 Pt is stable to go back to her assisted living facility/[facility]
--- NOTE | 2019-05-19 08:00 | PDOC ---
Patient Follow-up (Call Back) - Post ED Follow - Up Disposition at time of original discharge: HOME Reason for Call Back: Radiology (Received call from Dr urban and states noted osteomyletis. Called [facility] and spoke to nursebay who will notify provider)
== END 2019-05-19 03:29 | disposition home or self-care (01) ==
LOC: JER 21:11
DX: E11.621 Type 2 diabetes mellitus with foot ulcer (principal); Z79.4 Long term (current) use of insulin; R60.0 Localized edema; I48.91 Unspecified atrial fibrillation; Z79.01 Long term (current) use of anticoagulants; E03.9 Hypothyroidism, unspecified; Z86.718 Personal history of other venous thrombosis and embolism; Z85.6 Personal history of leukemia; C90.00 Multiple myeloma not having achieved remission; J44.9 Chronic obstructive pulmonary disease, unspecified
CPT/HCPCS: 36415; 71046-TC-FY; 73590-TC-LT-FY; 73590-TC-RT-FY; 73630-TC-LT; 73630-TC-RT-FY; 80053; 82550; 83880; 84484; 85025; 87070; 87077; 87186; 87205; 99282-25

== ENCOUNTER 2019-05-22 17:05 | Inpatient (IN) | payer OTHER, MEDICARE ==
--- NOTE | 2019-05-22 17:28 | PDOC ---
History of Present Illness - General Chief Complaint: SIRS, Suspected/Possible Stated Complaint: FEVER Time Seen by Provider: 05/22/19 17:27 History Source: Patient, Family Exam Limitations: Clinical Condition - History of Present Illness Initial Comments: Pt is a 68 yo F, with PMH of CML (on gleevec), multiple myeloma (infusions weekly, last infusion yesterday), DM with chronic LE wounds, hypothyroidism, and Afib (on eliquis), who is presenting via EMS from [facility] with AMS, fever, and worsening redness around her b/l LE foot and leg ulcers. Pt was seen at [facility] on 05/18, and was discharged on PO clindamycin 800 mg TID. Per [place] records, pt developed fever today. Pt endorses fevers and pain in her legs b/l. The pt is accompanied by her sister, who state the redness on her legs have appeared worse over the past 2 days, and "her legs have been bad," since starting her new infusions for multiple myeloma. Pt denies any nausea/vomiting, chest pain, SOB, abdominal pain, urinary symptoms, or diarrhea/constipation. ROS is limited due to clinical condition. [facility] was called by [facility] staff AM of 05/19 (post x-ray reads) and AM 05/22 post wound-cultures. Allergies: NKDA PCP: Dr. Longo Social: Pt denies any cigarette, alcohol, or drug use. Pt denies any recent travel or sick contacts. Surgical: cholecystectomy Family: no relevant history. 05/22/19 18:07 05/22/19 18:24 05/22/19 18:44 Past History - Travel Traveled outside of the country in the last 30 days: No Close contact w/someone who was outside of country & ill: No - Past Medical History Allergies/Adverse Reactions: Allergies Allergy/AdvReac Type Severity Reaction Status Date / Time metronidazole [From Flagyl] Allergy Severe Rash Verified 05/18/19 21:13 metoprolol Allergy Intermediate Rash Verified 05/18/19 21:13 Home Medications: Ambulatory Orders Albuterol Sulfate 2.5 mg IH Q8H PRN 07/18/18 Ammonium Lactate Lotion [Lac-Hydrin 12] 1 applic TP ASDIR 07/18/18 Ascorbic Acid [Vitamin C -] 500 mg PO DAILY 07/18/18 Gabapentin [Neurontin -] 100 mg PO BID 07/18/18 Ipratropium [place] 0.2 mg IH Q8H PRN 07/18/18 L. Acidophilus/Bifid. Animalis [Probiotic 5 Billion Cell Cap] 1 each PO TID Oxycodone HCl 10 mg PO Q6H PRN 07/18/18 Polyethylene Glycol 3350 [Miralax 255 gm Btl -] 17 gm PO TID 07/18/18 Vitamin B Complex 1 tab PO DAILY 07/18/18 Diltiazem Cd [Cardizem Cd -] 120 mg PO DAILY cap.cd.24h 07/23/18 Docusate Sodium [Colace -] 100 mg PO TID capsule 07/23/18 Levothyroxine [Synthroid -] 25 mcg PO DAILY@0700 tablet 07/23/18 Acetaminophen [Pain Relief] 650 mg PO Q6H PRN 07/29/18 Bisacodyl Suppository [Dulcolax Suppository -] 10 mg RC DAILY PRN 07/29/18 Insulin Lispro [Humalog Kwikpen U-100] 0 unit SQ ASDIR 07/29/18 Mag Hydrox/Al Hydrox/Simeth [Mylanta Oral Suspension -] 30 ml PO Q6H PRN Pantoprazole Sodium 40 mg PO DAILY 07/29/18 Nystatin Cream [Mycostatin Cream -] 1 applic TP Q6HPO applic 08/03/18 Torsemide [Demadex -] 20 mg PO DAILY tablet 08/03/18 Aa/Hydrolyzed Collagen, Whey [Lps 15-30 Liquid] 30 ml PO DAILY 11/14/18 Folic Acid 1 mg PO DAILY 11/14/18 Hydroxyzine HCl 25 mg PO TID 11/14/18 Nilotinib HCl [Tasigna] 300 mg PO BID 11/14/18 Polyvinyl Alcohol [Artificial Tears] 1 drop OU QID 11/14/18 Pyridoxine HCl (B-6) [Vitamin B6 -] 100 mg PO DAILY 11/14/18 Sennosides [Senna Lax] 8.6 mg PO DAILY 11/14/18 Eliquis 5 mg PO BID 02/26/19 Glimepiride 1 mg PO DAILY 02/26/19 Torsemide 40 mg PO HS 02/26/19 Clindamycin [Cleocin -] 600 mg PO Q8H #42 capsule 05/19/19 Anemia: Yes Asthma: No Cancer: Yes (CML) Cardiac Disorders: Yes (A-FIB) CVA: No COPD: Yes CHF: No DVT: Yes Dementia: No Diabetes: Yes GI Disorders: No Disorders: Yes (uti) HTN: Yes Hypercholesterolemia: Yes Liver Disease: Yes (fatty liver) Psychiatric Problems: Yes (depression) Seizures: No Thyroid Disease: Yes - Surgical History Abdominal Surgery: Yes (hernia) Appendectomy: No Cardiac Surgery: No Cholecystectomy: Yes Lung Surgery: No Neurologic Surgery: No Orthopedic Surgery: No - Immunization History Immunization Up to Date: Yes - Suicide/Smoking/Psychosocial Hx Smoking Status: Yes Smoking History: Never smoked Have you smoked in the past 12 months: No Number of Cigarettes Smoked Daily: 0 If you are a former smoker, when did you quit?: 10/25/2013 Cigars Per Day: 0 'Breaking Loose' booklet given: 02/28/12 Hx Alcohol Use: No Drug/Substance Use Hx: No Substance Use Type: None Hx Substance Use Treatment: No Review of Systems - Review of Systems Able to Perform ROS?: No (sepsis) *Physical Exam - Physical Exam Comments: Febrile (101.4 oral). Pt appears ill, with b/l LE foot/leg wrappings which appear clean. Pt is diaphoretic and confused. Morbidly obese body habitus. Pts sister at bedside. Pt alert and oriented to person only (not pts baseline). senior risk analyst generally intact, muscular strength and sensation intact. No midline spinal tenderness, step-offs, or crepitus. Head normocephalic, atraumatic. Eyes PERRLA, EOMI. Oropharynx without erythema or exudates, no LAD b/l. No nasal congestion, hearing intact. Clear heart sounds, S1/S2, no JVD, b/l pedal edema, or heart murmur. Clear lung sounds, no respiratory distress, wheezes, crackles, or accessory muscle use. No abdominal or CVA tenderness to palpation, no rebound, no guarding. Abdomen soft, non-distended, and with normoactive bowel sounds. B/l heel ulcers (stage 4 to bone) with heel packing. B/l erythema and warmth of LE to mid-mckeon, with clear weeping. Skin otherwise without jaundice or rash. 05/22/19 18:29 ED Treatment Course - LABORATORY CBC & Chemistry Diagram: 05/22/19 17:50 05/22/19 17:50 Medical Decision Making - Medical Decision Making Pt was seen at bedside, also will be seen by attending Dr. [facility]. Pt presenting from [facility] for AMS and fever, despite receiving PO antibiotics ( clindamycin). Wound cultures have grown pseudomonas, MRSA, and enterococcus. Will cover with abx based on sensitivities, and will evaluate with sepsis order set. Provided 2 L IV NS, 1 g ofirmev, 50 mcg IV fentanyl (for pain), 2 g IV cefepime , and 15 mg/kg loading dose of IV vancomycin. Will continue to reassess pt and monitor for symptomatic improvement. 05/22/19 18:31 CBC: WBC 0.8 (down from 2 on 05/18) with ANC of 0.0; H/H 03/24, stable from baseline -- ordered neupogen and claritin Paged Dr. Phillips (heme/onc) Manual diff pending Ordered type and screen 05/22/19 18:53 Endorsed to night team. 05/22/19 19:07 *DC/Admit/Observation/Transfer Diagnosis at time of Disposition: Sepsis Qualifiers: Sepsis type: sepsis due to unspecified organism Sepsis acute organ dysfunction status: unspecified Qualified Code(s): A41.9 - Sepsis, unspecified organism Osteomyelitis Qualifiers: Osteomyelitis type: other acute Osteomyelitis location: multiple sites Qualified Code(s): M86.19 - Other acute osteomyelitis, multiple sites Diabetic foot ulcer Qualifiers: Diabetic foot ulcer location: heel Diabetes mellitus type: type 2 Laterality: unspecified laterality Non-pressure ulcer stage: unspecified non-pressure ulcer stage Qualified Code(s): E11.621 - Type 2 diabetes mellitus with foot ulcer - Discharge Dispostion Condition at time of disposition: Stable Decision to Admit order: Yes - Referrals - Patient Instructions - Post Discharge Activity
[2019-05-22] MEDS ORDERED: ACETAMINOPHEN 1000 MG/100 ML VIAL (NON FORMULARY) IVPB ONE (17:35)
[2019-05-22] MEDS ORDERED: SODIUM CHLORIDE 2,000 ML IV STA (17:35)
[2019-05-22] MEDS ORDERED: ACETAMINOPHEN INJECTION 100 ML IVPB ONE (17:57)
[2019-05-22] MEDS ORDERED: CEFEPIME HCL/D5W 2 GM/50 ML BAG IVPB ONE (18:06)
[2019-05-22] MEDS ORDERED: VANCOMYCIN 1,500 MG in DEXTROSE 5%-WATER - 250 ML IVPB ONE (18:06)
--- NOTE | 2019-05-22 18:21 | PDOC ---
Documentation entered by Alan Pritchard SCRIBE, acting as scribe for Deysi Lira DO. Deysi Lira DO: This documentation has been prepared by the [place] Daniel, SCRIBE, under my direction and personally reviewed by me in its entirety. I confirm that the documentation accurately reflects all work, treatment, procedures, and medical decision making performed by me. Attending Attestation - Resident Resident Name: SadeKsenia - ED Attending Attestation I have performed the following: I have examined & evaluated the patient, The case was reviewed & discussed with the resident, I agree w/resident's findings & plan, Exceptions are as noted - HPI HPI: 05/22/19 18:08 The patient is a 68 year old female with a past medical history of CML, MM, Afib (on Eliquis), chronic LE swelling with wounds, hypothyroidism, and diabetes here today from [facility] for evaluation of fever and lower extremity pain.The patient reports that her fever began yesterday and has been having worsening lower extremity pain and edema. Patients patient safety officer reports that the patients dressings are changed daily. Patient denies headache, lightheadedness. Denies chills. Denies chest pain, shortness of breath. Denies nausea, vomiting, diarrhea, abdominal pain. Allergies: metronidazole, metoprolol PCP: Carlito Longo - Physicial Exam PE: 05/22/19 18:08 Constitutional: +lethargy. Awake, alert, oriented. No acute distress. Head: Normocephalic. Atraumatic Eyes: PERRL. EOMI. Conjunctivae are not pale. ENT: Mucous membranes are moist and intact. Posterior pharynx without exudates or erythema. Uvula midline. Neck: Supple. Full ROM. No lymphadenopathy. Cardiovascular: Regular rate. Regular rhythm. S1, S2 regular. Distal pulses are 2+ and symmetric. Pulmonary/Chest: No evidence of respiratory distress. Clear to auscultation bilaterally No wheezing, rales or rhonchi. Abdominal: Soft and non-distended. There is no tenderness. No rebound, guarding or rigidity. No organomegaly. No palpable masses. Good bowel sounds. Back: No CVA tenderness. Musculoskeletal: No edema. No cyanosis. No clubbing. Full range of motion in all extremities. No calf tenderness. Radial/pedal pulses are intact and 2+ bilaterally Skin: +cellulitic bilateral lower extremities with warmth and redness to the mid calf. +wounds on the anterior bilateral chins and heels with packing and are foul smelling. Skin is warm, dry, and pale. No petechiae. No purpura. Neurological: Alert and oriented to person, place, and time. Cranial nerves II -XII are grossly intact. Normal speech. Strength is grossly symmetric. No sensory deficits. Psychiatric: Good eye contact. Normal interaction, affect and behavior. - Critical Care Time Total Critical Care Time: 45 Critical Care Statement: The care of this patient involved high complexity decision making to prevent further life threatening deterioration of the patient 's condition and/or to evaluate & treat vital organ system(s) failure or risk of failure. - Medical Decision Making 05/22/19 18:18 I, Dr. Deysi Lira, DO, attest that this document has been prepared under my direction and personally reviewed by me in its entirety. I further attest, that it accurately reflects all work, treatment, procedures and medical decision -making performed by me. 05/22/19 18:18 a/p: 68yo female sent back from [facility] for eval of osteo -pt seen in ED on 05/19 - cultures done and xrays taken, called back on the with poss osteo on xray of R tib/fib, b/l foot xray -pt sent home with clinda after er visit on the , started with fever yesterday despite abx -pt lethargic and septic appearing today wit b/l LE cellulitis, wounds, and osteo -pts cultures reviewed, will send labs, cultures, ekg, cxr, will start vanco and cefepime -pmd dr. longo -pt will need admission for iv abx, id consult, vascular sx consult, podiatry consult 05/22/19 19:20 pt with neutropenia and a fever pt with 0 neutrophils case discussed with Dr. Sandhu - agrees with abx and neupogen will need admission pt with sepsis, neutropenic fever from LE cellulitis and wounds microblog sent to [facility] for admission 05/22/19 19:42 case discussed with [facility] - accepts pt to service under Dr. Sykes pt updated on results *DC/Admit/Observation/Transfer Diagnosis at time of Disposition: Neutropenic fever Sepsis Qualifiers: Sepsis type: sepsis due to unspecified organism Sepsis acute organ dysfunction status: unspecified Qualified Code(s): A41.9 - Sepsis, unspecified organism Osteomyelitis Qualifiers: Osteomyelitis type: other acute Osteomyelitis location: multiple sites Qualified Code(s): M86.19 - Other acute osteomyelitis, multiple sites Diabetic foot ulcer Qualifiers: Diabetic foot ulcer location: heel Diabetes mellitus type: type 2 Laterality: unspecified laterality Non-pressure ulcer stage: unspecified non-pressure ulcer stage Qualified Code(s): E11.621 - Type 2 diabetes mellitus with foot ulcer - Discharge Dispostion Condition at time of disposition: Guarded Decision to Admit order: Yes - Referrals - Patient Instructions - Post Discharge Activity
[2019-05-22 18:33] LABS: BASO % 0.3 % (0-2.0); EOS % 0.1 % (0-4.5); HEMATOCRIT 21.4 % (32.4-45.2); LYMPH % 13.3 % (8-40); MCH 30.3 pg (25.7-33.7); MCHC 32.7 g/dl (32.0-36.0); MEAN CELL VOLUME 92.5 fl (80-96); MEAN PLT VOLUME 9.6 fl (7.5-11.1); MONO % 85.5 % (3.8-10.2); NEUT % 0.8 % (42.8-82.8); PLATELET COUNT 109 K/MM3 (134-434); RBC 2.31 M/mm3 (3.60-5.2); RDW 18.6 % (11.6-15.6); WHITE BLOOD COUNT 0.8 K/mm3 (4.0-10.0)
[2019-05-22] MEDS ORDERED: TBO-FILGRASTIM 480 MCG/0.8 ML DISP.SYRIN SQ ONE (18:49)
[2019-05-22] MEDS ORDERED: LORATADINE 10 MG TABLET PO ONE (18:52)
[2019-05-22] MEDS ORDERED: CEFEPIME 2 GM/100 ML BAG IVPB ONE ×2 (18:52→18:58)
[2019-05-22 19:09] LABS: INR 1.77 (0.83-1.09)
[2019-05-22 19:11] LABS: ALBUMIN 2.2 g/dl (3.4-5.0); BILIRUBIN,TOTAL 0.8 mg/dL (0.2-1); BLOOD UREA NITROGEN 50.5 mg/dL (7-18); CALCIUM 8.5 mg/dL (8.5-10.1); CREATININE 1.4 mg/dL (0.55-1.3); POTASSIUM 4.6 mmol/L (3.5-5.1)
[2019-05-22 19:12] LABS: ACTIVATED PTT 40.3 SECONDS (25.2-36.5)
--- NOTE | 2019-05-22 19:25 | PDOC ---
*Physical Exam - Vital Signs Last Vital Signs Temp Pulse Resp BP Pulse Ox 101.4 F H 84 19 125/72 98 05/22/19 17:06 05/22/19 17:06 05/22/19 17:06 05/22/19 17:06 05/22/19 17:06 ED Treatment Course - LABORATORY CBC & Chemistry Diagram: 05/22/19 17:50 05/22/19 17:50 - ADDITIONAL ORDERS Additional order review: Laboratory Results 05/22/19 05/22/19 05/22/19 17:50 17:50 17:50 PT with INR 21.00 H INR 1.77 H PTT (Actin FS) 40.3 H Sodium 134 L Potassium 4.6 Chloride 99 Carbon Dioxide 30 Anion Gap 6 L BUN 50.5 H Creatinine 1.4 H Est GFR (CKD-EPI)AfAm 44.01 Est GFR (CKD-EPI)NonAf 37.97 Random Glucose 220 H Calcium 8.5 Total Bilirubin 0.8 AST 62 H ALT 34 Alkaline Phosphatase 140 H Creatine Kinase 104 Troponin I < 0.02 Total Protein 7.0 Albumin 2.2 L 05/22/19 17:50 RBC 2.31 L MCV 92.5 MCHC 32.7 RDW 18.6 H MPV 9.6 Neutrophils % 0.8 L Lymphocytes % 13.3 D Monocytes % 85.5 H D Eosinophils % 0.1 D Basophils % 0.3 - Medications Given in the ED: ED Medications Discontinued Medications Generic Name Dose Route Start Last Admin Trade Name Freq PRN Reason Stop Dose Admin Acetaminophen 1,000 mg 05/22/19 17:35 05/22/19 18:12 Ofirmev Injection - IVPB 05/22/19 17:36 1,000 mg ONCE ONE Administration Medical Decision Making - Medical Decision Making 05/22/19 19:15 68 yo F, with PMH of 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 Discharged 05/18 on 600 Clindamycin TID to [facility]. Subsequently found to have evidence of osteomyelitis on xray with cultures positive for pseudomonas and enterococcus. Today patient found to be altered with worsening cellulitis on bilateral legs, WBC of 0.8, ANC of 0. Given 50 mcg Fentanyl, Tylenol 1g, 2L NS Cefepime 2g, Vancomycin 1500mg, Granix 480mcg, Claratin 10mg Heme/Onc call placed, ID consulted, Dr. Baker with wound care consulted Pending EKG / Urine / Chem > Admit Hospitalist (contact isolation) *DC/Admit/Observation/Transfer Diagnosis at time of Disposition: Neutropenic fever Sepsis Qualifiers: Sepsis type: sepsis due to unspecified organism Sepsis acute organ dysfunction status: unspecified Qualified Code(s): A41.9 - Sepsis, unspecified organism Osteomyelitis Qualifiers: Osteomyelitis type: other acute Osteomyelitis location: multiple sites Qualified Code(s): M86.19 - Other acute osteomyelitis, multiple sites Diabetic foot ulcer Qualifiers: Diabetic foot ulcer location: heel Diabetes mellitus type: type 2 Laterality: unspecified laterality Non-pressure ulcer stage: unspecified non-pressure ulcer stage Qualified Code(s): E11.621 - Type 2 diabetes mellitus with foot ulcer - Discharge Dispostion Condition at time of disposition: Stable - Referrals - Patient Instructions - Post Discharge Activity
[2019-05-22] MEDS ORDERED: VANCOMYCIN HCL 1,500 MG in DEXTROSE 5%-WATER - 500 ML IVPB ONE (19:45)
[2019-05-22] MEDS ORDERED: LORATADINE 10 MG TABLET ONE (19:52)
--- NOTE | 2019-05-22 20:41 | HP ---
CHIEF COMPLAINT: Fever with B/L L/E edema and generalized weakness for the past 3 days PCP: Dr. Carlito Longo HISTORY OF PRESENT ILLNESS: This is 68 year old female with past medical history significant for CML, Multiple Myeloma, DM and AFib. She was brought from [facility] via EMS with complaints of feeling feverish for the past few days. Upon examination she was AOx3, but appeared to be drowsy and diaphoretic, and was unable to provide a history. As per chart review, she presented to the [facility] ER on 05/18 with B/L lower extremity edema and B/L grade 4 heel ulcers. She was D/C on PO Clindamycin 800mg TID. X rays of lower extremities B/L and left foot showed evidence of osteomyelitis, and wound culture showed Pseudomonas, MRSA, and Enterococcus. ER course was notable for: (1) IV Cefepime 2g and Vanco administered (2) 2 L N/S (3) Spoke to Trudi Cadena administered Recent Travel: Patient unresponsive to questioning PAST MEDICAL HISTORY: CML: On Gleevac Multiple Myeloma: Weekly transfusions, last transfusion yesterday DM AFib: On Eliquis PAST SURGICAL HISTORY: Patient unresponsive to questioning Social History: Patient unresponsive to questioning Smoking: Alcohol: Drugs: Family History: Patient unresponsive to questioning Allergies metronidazole [From Flagyl] Allergy (Severe, Verified 05/18/19 21:13) Rash metoprolol Allergy (Intermediate, Verified 05/18/19 21:13) Rash HOME MEDICATIONS: Home Medications Medication Instructions Recorded Albuterol Sulfate 2.5 mg IH Q8H PRN 07/18/18 Ammonium Lactate Lotion 1 applic TP ASDIR 07/18/18 [Lac-Hydrin 12] Ascorbic Acid [Vitamin C -] 500 mg PO DAILY 07/18/18 Gabapentin [Neurontin -] 100 mg PO BID 07/18/18 Ipratropium [place] 0.2 mg IH Q8H PRN 07/18/18 L. Acidophilus/Bifid. Animalis 1 each PO TID 07/18/18 [Probiotic 5 Billion Cell Cap] Oxycodone HCl 10 mg PO Q6H PRN 07/18/18 Polyethylene Glycol 3350 [Miralax 17 gm PO TID 07/18/18 255 gm Btl -] Vitamin B Complex 1 tab PO DAILY 07/18/18 Diltiazem Cd [Cardizem Cd -] 120 mg PO DAILY cap.cd.24h 07/23/18 Docusate Sodium [Colace -] 100 mg PO TID capsule 07/23/18 Levothyroxine [Synthroid -] 25 mcg PO DAILY@0700 tablet 07/23/18 Acetaminophen [Pain Relief] 650 mg PO Q6H PRN 07/29/18 Bisacodyl Suppository [Dulcolax 10 mg RC DAILY PRN 07/29/18 Suppository -] Insulin Lispro [Humalog Kwikpen 0 unit SQ ASDIR 07/29/18 U-100] Mag Hydrox/Al Hydrox/Simeth 30 ml PO Q6H PRN 07/29/18 [Mylanta Oral Suspension -] Pantoprazole Sodium 40 mg PO DAILY 07/29/18 Nystatin Cream [Mycostatin Cream -] 1 applic TP Q6HPO applic 08/03/18 Torsemide [Demadex -] 20 mg PO DAILY tablet 08/03/18 Aa/Hydrolyzed Collagen, Whey [Lps 30 ml PO DAILY 11/14/18 15-30 Liquid] Folic Acid 1 mg PO DAILY 11/14/18 Hydroxyzine HCl 25 mg PO TID 11/14/18 Nilotinib HCl [Tasigna] 300 mg PO BID 11/14/18 Polyvinyl Alcohol [Artificial 1 drop OU QID 11/14/18 Tears] Pyridoxine HCl (B-6) [Vitamin B6 -] 100 mg PO DAILY 11/14/18 Sennosides [Senna Lax] 8.6 mg PO DAILY 11/14/18 Eliquis 5 mg PO BID 02/26/19 Glimepiride 1 mg PO DAILY 02/26/19 Torsemide 40 mg PO HS 02/26/19 Clindamycin [Cleocin -] 600 mg PO Q8H #42 capsule 05/19/19 REVIEW OF SYSTEMS CONSTITUTIONAL: fever, diaphoresis Absent: fever, chills, diaphoresis, generalized weakness, malaise, loss of appetite, weight change HEENT: Absent: rhinorrhea, nasal congestion, throat pain, throat swelling, difficulty swallowing, mouth swelling, ear pain, eye pain, visual changes CARDIOVASCULAR: Absent: chest pain, syncope, palpitations, irregular heart rate, lightheadedness , peripheral edema RESPIRATORY: Absent: cough, shortness of breath, dyspnea with exertion, orthopnea, wheezing, stridor, hemoptysis GASTROINTESTINAL: Absent: abdominal pain, abdominal distension, nausea, vomiting, diarrhea, constipation, melena, hematochezia GENITOURINARY: Absent: dysuria, frequency, urgency, hesitancy, hematuria, flank pain, genital pain MUSCULOSKELETAL: Absent: myalgia, arthralgia, joint swelling, back pain, neck pain SKIN: Absent: rash, itching, pallor HEMATOLOGIC/IMMUNOLOGIC: Absent: easy bleeding, easy bruising, lymphadenopathy, frequent infections ENDOCRINE: Absent: unexplained weight gain, unexplained weight loss, heat intolerance, cold intolerance NEUROLOGIC: Absent: headache, focal weakness or paresthesias, dizziness, unsteady gait, seizure, mental status changes, bladder or bowel incontinence PSYCHIATRIC: Absent: anxiety, depression, suicidal or homicidal ideation, hallucinations. PHYSICAL EXAMINATION Vital Signs - 24 hr 05/22/19 05/22/19 17:06 17:15 Temperature 101.4 F H Pulse Rate 84 Respiratory 19 Rate Blood Pressure 125/72 O2 Sat by Pulse 98 99 Oximetry (%) GENERAL: AOx3, drowsy and diaphoretic HEAD: Normal with no signs of trauma. LUNGS: Breath sounds equal, clear to auscultation bilaterally. No wheezes, and no crackles. No accessory muscle use. HEART: Regular rate and rhythm, normal S1 and S2 without murmur, rub or gallop. ABDOMEN: Soft, nontender, not distended, normoactive bowel sounds, no guarding, no rebound, no masses. No hepatomegaly or splenomegaly. MUSCULOSKELETAL: Normal range of motion at all joints. No bony deformities or tenderness. No CVA tenderness. UPPER EXTREMITIES: Multiple petichiae visible B/L LOWER EXTREMITIES: B/L non tender erythema below the knee with crusting and no discharge, non pitting edema, grade 4 ulcers on both heels B/L PSYCHIATRIC: Ox3 and drowsy Laboratory Results - last 24 hr 05/22/19 05/22/19 05/22/19 17:50 17:50 17:50 WBC RBC Hgb Hct MCV MCH MCHC RDW Plt Count MPV Absolute Neuts (auto) Neutrophils % Lymphocytes % Monocytes % Eosinophils % Basophils % Nucleated RBC % ESR > 140 H PT with INR 21.00 H INR 1.77 H PTT (Actin FS) 40.3 H Sodium Potassium Chloride Carbon Dioxide Anion Gap BUN Creatinine Est GFR (CKD-EPI)AfAm Est GFR (CKD-EPI)NonAf Random Glucose Lactic Acid Calcium Total Bilirubin AST ALT Alkaline Phosphatase Creatine Kinase 104 Troponin I < 0.02 C-Reactive Protein Total Protein Albumin 05/22/19 05/22/19 05/22/19 17:50 17:50 17:50 WBC 0.8 L* RBC 2.31 L Hgb 7.0 L Hct 21.4 L MCV 92.5 MCH 30.3 MCHC 32.7 RDW 18.6 H Plt Count 109 L MPV 9.6 Absolute Neuts (auto) 0.0 L Neutrophils % 0.8 L Lymphocytes % 13.3 D Monocytes % 85.5 H D Eosinophils % 0.1 D Basophils % 0.3 Nucleated RBC % 0 ESR PT with INR INR PTT (Actin FS) Sodium 134 L Potassium 4.6 Chloride 99 Carbon Dioxide 30 Anion Gap 6 L BUN 50.5 H Creatinine 1.4 H Est GFR (CKD-EPI)AfAm 44.01 Est GFR (CKD-EPI)NonAf 37.97 Random Glucose 220 H Lactic Acid 1.3 Calcium 8.5 Total Bilirubin 0.8 AST 62 H ALT 34 Alkaline Phosphatase 140 H Creatine Kinase Troponin I C-Reactive Protein 15.5 H Total Protein 7.0 Albumin 2.2 L ASSESSMENT/PLAN: This is 68 year old female with past medical history significant for CML, Multiple Myeloma, DM and AFib. She was brought from [facility] via EMS with complaints of feeling feverish for the past few days #Sepsis 2/2 Osteomyelitis - WBC 0.8 with ANC 0 (Hx of CML and MM) - Blood cx, blood fungal cx, urine cx ordered, left foot wound cx - Lactic Acid normal - Quanteferon ordered - X Ray lower extremity ordered - Previous X ray of B/L lower extremities showed evidence of Osteomyelitis - Previous wound cx showed Pseudomonas, MRSA, and Enterococcus. - Vancomycin started, Zosyn to cover for anaerobes, Valtrex 500mg BD - Micafungin 100mg x1 - ID (Dr. Pena) consulted - Vascular (Dr. Baker) consulted - Podiatry consultation to consider bone biopsy for osteomyelitis #AMS - Head CT ordered - Monitor closely #Pancytopenia - Hx of CML/MM - Neupogen ordered - Heme/Onc consulted (Dr. Phillips) #Hx of AFib - Eliquis #Hx of DM - BGM ACHS - HbA1c ordered - Novolog SS started #FEN - N/S 2x - Mg, Phos ordered - Diabetic/Na controlled diet #DVT PE - On Eliquis (home med) Visit type - Emergency Visit Emergency Visit: Yes ED Registration Date: 05/22/19 Care time: The patient presented to the Emergency Department on the above date and was hospitalized for further evaluation of their emergent condition. - New Patient This patient is new to me today: Yes Date on this admission: 05/23/19 - Critical Care Critical Care patient: No ATTENDING PHYSICIAN STATEMENT I saw and evaluated the patient. I reviewed the resident's note and discussed the case with the resident. I agree with the resident's findings and plan as documented. SUBJECTIVE: OBJECTIVE: ASSESSMENT AND PLAN:
[2019-05-22] MEDS: SODIUM CHLORIDE 1,000 ML IV SCH (20:42)
[2019-05-22] MEDS ORDERED: PIPERACILLIN/TAZOB 3.375 GM 3.375 GM in DEXTROSE 5%-WATER - 50 ML IVPB ONE (21:48)
[2019-05-22 21:52] LABS: PLATELET ESTIMATE ADEQUATE
[2019-05-22 21:53] LABS: ANISOCYTOSIS 1+
[2019-05-22] MEDS ORDERED: INSULIN SLIDING SCALE (NOVOLOG) 1 VIAL SQ SCH (22:00)
[2019-05-22] MEDS ORDERED: PIPERACILLIN/TAZOB 3.375 GM 3.375 GM in DEXTROSE 5%-WATER - 50 ML IVPB SCH (22:30)
[2019-05-23] MEDS ORDERED: HEPARIN NA (PORCINE) 5,000 UNITS/ML 1ML VIAL SQ SCH (02:00)
[2019-05-23] MEDS ORDERED: ALBUTEROL SO4 8 GM HFA INHALER IH PRN (03:12)
[2019-05-23] MEDS ORDERED: BISACODYL 10 MG SUPP.RECT RC PRN (03:12)
[2019-05-23] MEDS ORDERED: IPRATROPIUM BR 0.02% 0.5 MG/2.5 ML VIAL.NEB. NEB PRN (03:12)
[2019-05-23] MEDS ORDERED: FENTANYL TD SCH (03:15)
[2019-05-23] MEDS ORDERED: PIPERACILLIN/TAZOBACTAM 3.375 GM VIAL IVPB ONE ×2 (03:26→09:27)
[2019-05-23] MEDS ORDERED: DEXTROSE 5%-WATER - 50 ML IVPB ONE ×4 (03:27→20:31)
[2019-05-23] MEDS: PIPERACILLIN/TAZOB 3.375 GM 3.375 GM in DEXTROSE 5%-WATER - 50 ML IVPB SCH ×2 (03:45→10:24)
[2019-05-23] MEDS: LACTOBACILLUS ACIDOPHILUS 1 TABLET PO SCH ×3 (06:32→21:57)
[2019-05-23] MEDS: GABAPENTIN 100 MG CAPSULE (FP) PO SCH ×3 (06:32→21:57)
[2019-05-23] MEDS: POLYETHYLENE GLYCOL 3350 119 GM BTL PO SCH ×2 (06:32→10:25)
[2019-05-23] MEDS: LEVOTHYROXINE NA 25 MCG TABLET (FP) PO SCH (06:32)
--- NOTE | 2019-05-23 07:49 | PN ---
Teaching Attending Note Name of Resident: Clint Palacios ATTENDING PHYSICIAN STATEMENT I saw and evaluated the patient. I reviewed the resident's note and discussed the case with the resident. I agree with the resident's findings and plan as documented. SUBJECTIVE: 68 year old female with past medical history significant for CML, Multiple Myeloma, DM and AFib, b/l heel ulcers, recently d/c home with clindamycin after she refused admission to inpatient. Now returns from [facility] w/ fever and altered mentation. Recent chemo for ,multiple myleloma - receives q week. OBJECTIVE: Last Vital Signs Temp Pulse Resp BP Pulse Ox 98.4 F 94 H 18 104/79 99 05/23/19 05:00 05/23/19 05:00 05/23/19 05:00 05/23/19 05:00 05/23/19 03:00 gen -nad, answers questions, oriented to place and time heent -at, sclera clear neck supple cv-s1+s2+rrr chest clear -legs - erythema b/l up to shins , right stage 4 heel ulcer, left heel stage 3- 4 ulcer, both appear infected 2+ pitting edema in legs b/l Abnormal Lab Results 05/22/19 05/22/19 05/22/19 17:50 17:50 17:50 WBC 0.8 L* RBC 2.31 L Hgb 7.0 L Hct 21.4 L RDW 18.6 H Plt Count 109 L Absolute Neuts (auto) 0.0 L Neutrophils % 0.8 L Neutrophils % (Manual) 2.0 L Lymphocytes % (Manual) 50.0 H D Monocytes % 85.5 H D Monocytes % (Manual) 44 H D ESR > 140 H PT with INR 21.00 H INR 1.77 H PTT (Actin FS) 40.3 H Sodium Anion Gap BUN Creatinine Random Glucose AST Alkaline Phosphatase C-Reactive Protein Albumin 05/22/19 17:50 WBC RBC Hgb Hct RDW Plt Count Absolute Neuts (auto) Neutrophils % Neutrophils % (Manual) Lymphocytes % (Manual) Monocytes % Monocytes % (Manual) ESR PT with INR INR PTT (Actin FS) Sodium 134 L Anion Gap 6 L BUN 50.5 H Creatinine 1.4 H Random Glucose 220 H AST 62 H Alkaline Phosphatase 140 H C-Reactive Protein 15.5 H Albumin 2.2 L ASSESSMENT AND PLAN: #Sepsis secondary to OM of heel b/l + b/l leg cellulitis in setting of severe neutropenia due to recent chemo for multiple myeloma. ANC was 0. S/p neupogen in ER Stable for admission to med/surg #Pancytopenia, severe anemia #ASA -may be multifactorial sepsis, prerenal #pseudohyponatremia - normal if corrected for glucose #Uncontrolled hyperglycemia #hypoalbuminemia -med/surg -vancomcyin -zosyn -vascualar, onc, ID consults -heel bone biopsy -heel possible debridement -blood culture -blood fungal culture -fungitell -quantiferon -neupogen -prbc transfusion -trend platelets -tight glucose control -avoid nephrotoxins -lower ext wound care -gentle IV diuresis -echo -lower ext duplex to r/o dvt -monitor VS closely -would upgrade to ICU if worsening
[2019-05-23 07:52] LABS: HEMATOCRIT 19.5 % (32.4-45.2); MCH 30.6 pg (25.7-33.7); MEAN CELL VOLUME 92.6 fl (80-96); MEAN PLT VOLUME 9.2 fl (7.5-11.1); PLATELET COUNT 94 K/MM3 (134-434); RBC 2.11 M/mm3 (3.60-5.2); RDW 18.8 % (11.6-15.6)
[2019-05-23 07:58] LABS: INR 1.67 (0.83-1.09); PROTHROMBIN TIME (PATIENT) 19.8 SEC (9.7-13.0)
[2019-05-23 08:00] LABS: ACTIVATED PTT 36.3 SECONDS (25.2-36.5)
[2019-05-23 08:16] LABS: HEMOGLOBIN 6.4 GM/dL (10.7-15.3); WHITE BLOOD COUNT 0.5 K/mm3 (4.0-10.0)
[2019-05-23 08:21] LABS: BILIRUBIN,TOTAL 0.5 mg/dL (0.2-1); BLOOD UREA NITROGEN 51.8 mg/dL (7-18); CALCIUM 7.7 mg/dL (8.5-10.1); CREATININE 1.4 mg/dL (0.55-1.3); MAGNESIUM 2.3 mg/dL (1.8-2.4); PHOSPHOROUS 2.7 mg/dL (2.5-4.9); POTASSIUM 3.9 mmol/L (3.5-5.1); TOT PROT 6.4 g/dl (6.4-8.2)
[2019-05-23] MEDS ORDERED: PATIENT'S OWN MEDICATION (NON-FORMULARY) (Lidocaine [Aspercreme] 1 EACH) TP SCH (10:00)
[2019-05-23] MEDS: SENNOSIDES 8.6MG TABLET (FP) PO SCH (10:25)
[2019-05-23] MEDS: ASCORBIC ACID 500 MG TABLET (FP) PO SCH (10:25)
[2019-05-23] MEDS: FOLIC ACID 1 MG TABLET (FP) PO SCH (10:25)
[2019-05-23] MEDS: APIXABAN 5 MG TABLET PO SCH ×2 (10:25→21:57)
[2019-05-23] MEDS: VITAMIN B COMP W-C 1 EA TABLET PO SCH (10:25)
[2019-05-23] MEDS: PYRIDOXINE HCL (B-6) 100 MG TABLET PO SCH (10:25)
[2019-05-23] MEDS: valACYclovir HCL 500 MG TABLET (FP) PO SCH ×2 (10:25→21:58)
--- NOTE | 2019-05-23 10:35 | CONSULT ---
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 Patient was recently in the hospital on 05/18 for LE edema and discharged on oral clindamycin. Currently patient reports pain in her rectum and reports constipation. States that she has pain in both of her legs. Denies fever, chills, nausea, vomiting, diarrhea. Allergies: flagyl, metoprolol Smoking: denies Alcohol: denies Drugs: denies Surgeries: laparoscopic cholecystectomy, ERCP with stenting Family Hx: denies family history of bleeding, clotting or cancers Oncologic History: -2011: diagnosed with chronic myeloid leukemia, currently on Gleevec (imatinib) -12/2018: diagnosed with multiple myeloma and started on single agent velcade -04/2019: added daratumumab to MM therapy, currently finished cycle 1 day 28 (4 doses of daratumumab) REVIEW OF SYSTEMS: CONSTITUTIONAL: Absent: fever, chills, diaphoresis, generalized weakness, malaise, loss of appetite, weight change HEENT: Absent: rhinorrhea, nasal congestion, throat pain, throat swelling, difficulty swallowing, mouth swelling, ear pain, eye pain, visual changes CARDIOVASCULAR: Absent: chest pain, syncope, palpitations, irregular heart rate, lightheadedness , peripheral edema RESPIRATORY: Absent: cough, shortness of breath, dyspnea with exertion, orthopnea, wheezing, stridor, hemoptysis GASTROINTESTINAL: Rectal pain Absent: abdominal pain, abdominal distension, nausea, vomiting, diarrhea, constipation, melena, hematochezia GENITOURINARY: Absent: dysuria, frequency, urgency, hesitancy, hematuria, flank pain, genital pain MUSCULOSKELETAL: Absent: myalgia, arthralgia, joint swelling, back pain, neck pain SKIN: Absent: rash, itching, pallor HEMATOLOGIC/IMMUNOLOGIC: Absent: easy bleeding, easy bruising, lymphadenopathy, frequent infections ENDOCRINE: Absent: unexplained weight gain, unexplained weight loss, heat intolerance, cold intolerance NEUROLOGIC: Absent: headache, focal weakness or paresthesias, dizziness, unsteady gait, seizure, mental status changes, bladder or bowel incontinence PSYCHIATRIC: Absent: anxiety, depression, suicidal or homicidal ideation, hallucinations. PHYSICAL EXAMINATION Vital Signs - 24 hr 05/22/19 05/22/19 05/22/19 17:06 17:15 23:06 Temperature 101.4 F H Pulse Rate 84 Pulse Rate [ 82 Left] Respiratory 19 24 H Rate Blood Pressure 125/72 Blood Pressure 102/72 [Left Arm] O2 Sat by Pulse 98 99 99 Oximetry (%) 05/23/19 05/23/19 05/23/19 03:00 05:00 09:00 Temperature 99.9 F H 98.4 F 98.4 F Pulse Rate 82 94 H 84 Pulse Rate [ Left] Respiratory 20 18 18 Rate Blood Pressure 105/55 L 104/79 108/69 Blood Pressure [Left Arm] O2 Sat by Pulse 99 99 Oximetry (%) GENERAL: A&Ox3, no acute distress EYES: PERRLA, EOMI ENT: Moist mucus membranes NECK: No JVD LUNGS: CTA, no wheezes HEART: Irregular rate, no murmurs ABDOMEN: Obese, mildly distended, BS diminished, tender to palpation in the lower abdomen MUSCULOSKELETAL: No CVA Tenderness NEUROLOGICAL: Cranial nerves II-XII intact. LOWER EXTREMITIES: b/l edematous lower extremities with chronic skin changes and deep ulcerations on heels bilaterally Laboratory Results - last 24 hr 05/22/19 05/22/19 05/22/19 17:50 17:50 17:50 WBC RBC Hgb Hct MCV MCH MCHC RDW Plt Count MPV Absolute Neuts (auto) Total Counted Neutrophils % Neutrophils % (Manual) Band Neutrophils % Lymphocytes % Lymphocytes % (Manual) Monocytes % Monocytes % (Manual) Eosinophils % Basophils % Nucleated RBC % Hypochromia Platelet Estimate Anisocytosis ESR > 140 H PT with INR 21.00 H INR 1.77 H PTT (Actin FS) 40.3 H Sodium Potassium Chloride Carbon Dioxide Anion Gap BUN Creatinine Est GFR (CKD-EPI)AfAm Est GFR (CKD-EPI)NonAf POC Glucometer Random Glucose Lactic Acid Calcium Phosphorus Magnesium Total Bilirubin AST ALT Alkaline Phosphatase Creatine Kinase 104 Troponin I < 0.02 C-Reactive Protein Total Protein Albumin TSH Random Vancomycin Crossmatch 05/22/19 05/22/19 05/22/19 17:50 17:50 17:50 WBC 0.8 L* RBC 2.31 L Hgb 7.0 L Hct 21.4 L MCV 92.5 MCH 30.3 MCHC 32.7 RDW 18.6 H Plt Count 109 L MPV 9.6 Absolute Neuts (auto) 0.0 L Total Counted 50 Neutrophils % 0.8 L Neutrophils % (Manual) 2.0 L Band Neutrophils % 4.0 Lymphocytes % 13.3 D Lymphocytes % (Manual) 50.0 H D Monocytes % 85.5 H D Monocytes % (Manual) 44 H D Eosinophils % 0.1 D Basophils % 0.3 Nucleated RBC % 0 Hypochromia 2+ Platelet Estimate Adequate Anisocytosis 1+ ESR PT with INR INR PTT (Actin FS) Sodium 134 L Potassium 4.6 Chloride 99 Carbon Dioxide 30 Anion Gap 6 L BUN 50.5 H Creatinine 1.4 H Est GFR (CKD-EPI)AfAm 44.01 Est GFR (CKD-EPI)NonAf 37.97 POC Glucometer Random Glucose 220 H Lactic Acid 1.3 Calcium 8.5 Phosphorus Magnesium Total Bilirubin 0.8 AST 62 H ALT 34 Alkaline Phosphatase 140 H Creatine Kinase Troponin I C-Reactive Protein 15.5 H Total Protein 7.0 Albumin 2.2 L TSH Random Vancomycin Crossmatch 05/22/19 05/23/19 05/23/19 22:48 05:42 05:42 WBC 0.5 L* RBC 2.11 L Hgb 6.4 L* Hct 19.5 L MCV 92.6 MCH 30.6 MCHC 33.0 RDW 18.8 H Plt Count 94 L MPV 9.2 Absolute Neuts (auto) 0.0 L Total Counted Neutrophils % No Result Required. Neutrophils % (Manual) Band Neutrophils % Lymphocytes % No Result Required. Lymphocytes % (Manual) Monocytes % Monocytes % (Manual) Eosinophils % Basophils % Nucleated RBC % 2 H Hypochromia Platelet Estimate Anisocytosis ESR PT with INR INR PTT (Actin FS) Sodium Potassium Chloride Carbon Dioxide Anion Gap BUN Creatinine Est GFR (CKD-EPI)AfAm Est GFR (CKD-EPI)NonAf POC Glucometer Random Glucose Lactic Acid 1.0 Calcium Phosphorus Magnesium Total Bilirubin AST ALT Alkaline Phosphatase Creatine Kinase Troponin I C-Reactive Protein Total Protein Albumin TSH Random Vancomycin 15.4 L Crossmatch 05/23/19 05/23/19 05/23/19 05:42 05:42 06:16 WBC RBC Hgb Hct MCV MCH MCHC RDW Plt Count MPV Absolute Neuts (auto) Total Counted Neutrophils % Neutrophils % (Manual) Band Neutrophils % Lymphocytes % Lymphocytes % (Manual) Monocytes % Monocytes % (Manual) Eosinophils % Basophils % Nucleated RBC % Hypochromia Platelet Estimate Anisocytosis ESR PT with INR 19.80 H INR 1.67 H PTT (Actin FS) 36.3 Sodium 135 L Potassium 3.9 Chloride 100 Carbon Dioxide 27 Anion Gap 8 BUN 51.8 H Creatinine 1.4 H Est GFR (CKD-EPI)AfAm 44.01 Est GFR (CKD-EPI)NonAf 37.97 POC Glucometer 209 Random Glucose 209 H Lactic Acid Calcium 7.7 L Phosphorus 2.7 Magnesium 2.3 Total Bilirubin 0.5 AST 24 ALT 25 Alkaline Phosphatase 122 H Creatine Kinase Troponin I C-Reactive Protein Total Protein 6.4 Albumin 2.0 L TSH 1.01 Random Vancomycin Crossmatch 05/23/19 08:10 WBC RBC Hgb Hct MCV MCH MCHC RDW Plt Count MPV Absolute Neuts (auto) Total Counted Neutrophils % Neutrophils % (Manual) Band Neutrophils % Lymphocytes % Lymphocytes % (Manual) Monocytes % Monocytes % (Manual) Eosinophils % Basophils % Nucleated RBC % Hypochromia Platelet Estimate Anisocytosis ESR PT with INR INR PTT (Actin FS) Sodium Potassium Chloride Carbon Dioxide Anion Gap BUN Creatinine Est GFR (CKD-EPI)AfAm Est GFR (CKD-EPI)NonAf POC Glucometer Random Glucose Lactic Acid Calcium Phosphorus Magnesium Total Bilirubin AST ALT Alkaline Phosphatase Creatine Kinase Troponin I C-Reactive Protein Total Protein Albumin TSH Random Vancomycin Crossmatch See Detail Active Medications Generic Name Dose Route Start Last Admin Trade Name Freq PRN Reason Stop Dose Admin Albuterol Sulfate 1 puff 05/23/19 03:12 Ventolin Hfa Inhaler - IH Q8H PRN SHORTNESS OF BREATH Apixaban 5 mg 05/23/19 10:00 05/23/19 10:25 Eliquis - PO 5 mg BID JOVITA Administration Ascorbic Acid 1,000 mg 05/23/19 10:00 05/23/19 10:25 Vitamin C - PO 1,000 mg DAILY JOVITA Administration Bisacodyl 10 mg 05/23/19 03:12 Dulcolax Suppository - RC DAILY PRN CONSTIPATION Diltiazem HCl 120 mg 05/23/19 10:00 05/23/19 10:25 Cardizem Cd - PO 120 mg DAILY JOVITA Administration Folic Acid 1 mg 05/23/19 10:00 05/23/19 10:25 Folic Acid - PO 1 mg DAILY JOVITA Administration Gabapentin 100 mg 05/23/19 06:00 05/23/19 06:32 Neurontin - PO 100 mg TID JOVITA Administration Sodium Chloride 1,000 mls @ 83 mls/hr 05/22/19 20:45 05/22/19 20:42 Normal Saline - IV 83 mls/hr ASDIR JOVITA Administration Piperacillin Sod/Tazobactam 50 mls @ 100 mls/hr 05/22/19 22:30 Sod 3.375 gm/ Dextrose IVPB Q8H-IV [facility] Protocol Ipratropium [place] 1 amp 05/23/19 03:12 Atrovent 0.02% Nebulizer - NEB Q8H PRN SHORTNESS OF BREATH Lactobacillus Acidophilus 1 tab 05/23/19 06:00 05/23/19 06:32 Bacid - PO 1 tab TID JOVITA Administration Levothyroxine Sodium 25 mcg 05/23/19 06:30 05/23/19 06:32 Synthroid - PO 25 mcg DAILY@0630 JOVITA Administration Multivit/Ca Carb/B Cmplx/FA/Prenat 1 tablet 05/23/19 10:00 05/23/19 10:25 Nephro-Majo - PO 1 tablet DAILY JOVITA Administration Non-Formulary Medication 1 each 05/23/19 03:15 Fentanyl [Fentanyl] TD Q72H JOVITA Oxycodone HCl 10 mg 05/23/19 03:12 Roxicodone - PO Q4HWA PRN PAIN 6-10 Polyethylene Glycol 17 gm 05/23/19 10:00 05/23/19 10:25 Miralax (For Daily Use) - PO 17 gm DAILY JOVITA Administration Pyridoxine HCl 100 mg 05/23/19 10:00 05/23/19 10:25 Vitamin B6 - PO 100 mg DAILY JOVITA Administration Senna 1 tab 05/23/19 10:00 05/23/19 10:25 Senna - PO 1 tab DAILY JOVITA Administration Torsemide 20 mg 05/23/19 22:00 Demadex - PO HS JOVITA Valacyclovir HCl 500 mg 05/23/19 10:00 05/23/19 10:25 Valtrex - PO 500 mg BID JOVITA Administration ASSESSMENT/PLAN: 68 year old female with a history of 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 Heme consulted for neutropenia in the setting of CML and MM + sepsis #Severe Neutropenia #CML #Multiple Myeloma #Sepsis #Severe Neutropenia: -will order granix 480mcg tonight and recheck CBC in AM, will continue same dose tomorrow night if remains WBCs/ANC remains low -continue treatment for sepsis -repeat CBC with diff in AM Oliver Barriga, PGY3 Discussed with Dr. Phillips Visit type - Emergency Visit Emergency Visit: No - New Patient This patient is new to me today: Yes Date on this admission: 05/24/19 - Critical Care Critical Care patient: Yes Total Critical Care Time (in minutes): 36 Critical Care Statement: The care of this patient involved high complexity decision making to prevent further life threatening deterioration of the patient 's condition and/or to evaluate & treat vital organ system(s) failure or risk of failure. ATTENDING PHYSICIAN STATEMENT I saw and evaluated the patient. I reviewed the resident's note and discussed the case with the resident. I agree with the resident's findings and plan as documented. SUBJECTIVE: OBJECTIVE: ASSESSMENT AND PLAN:
--- NOTE | 2019-05-23 11:11 | CON.ID ---
Consult Consult Specialty:: infectious diseases Referred by:: hospitalist Reason for Consultation:: sepsis,cellulitis of the leg,wound infection - History of Present Illness Chief Complaint: fever,weakness History of Present Illness: 68 year old female with a past medical history of CML, MM, Afib (on Eliquis), chronic LE swelling with wounds, hypothyroidism, and diabetes here today from [facility] for evaluation of fever and lower extremity pain.The patient reports that her fever began yesterday and has been having worsening lower extremity pain and edema. patient has swelling of the legs for along time one of the wounds now has started draining and the wound can be probed also patient lethargic but awake and alert - History Source History Provided By: Patient, Medical Record Limitations to Obtaining History: Clinical Condition - Past Medical History [employer]: Yes: Dementia Cardio/Vascular: Yes: HTN, Hyperlipdemia, Murmur, Pulmonary Hypertension Pulmonary: Yes: COPD Gastrointestinal: Yes: Constipation Hepatobiliary: Yes: Cholelithiasis, Cholecystitis, Choledocholithiasis (03/17 biliary pancreatitis requiring ERCP,sphincteorotomy, stenitng and stone extraction), Other Renal/: Yes: Renal Calculi ...: No Musculoskeletal: Yes: Chronic low back pain (sciatica due to lumbar disc disease ) Endocrine: Yes: Diabetes Mellitus, Hypothyroidism Additional Medical History: Diabetic retinopathy. 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 History of Recent Travel: No Home Medications - Allergies Allergies/Adverse Reactions: Allergies Allergy/AdvReac Type Severity Reaction Status Date / Time metronidazole [From Flagyl] Allergy Severe Rash Verified 05/18/19 21:13 metoprolol Allergy Intermediate Rash Verified 05/18/19 21:13 - Home Medications Home Medications: Ambulatory Orders Albuterol Sulfate 2.5 mg IH Q8H PRN 07/18/18 Ammonium Lactate Lotion [Lac-Hydrin 12] 1 applic TP ASDIR 07/18/18 Ascorbic Acid [Vitamin C -] 1,000 mg PO DAILY 07/18/18 Gabapentin [Neurontin -] 100 mg PO TID 07/18/18 Ipratropium [place] 0.2 mg IH Q8H PRN 07/18/18 L. Acidophilus/Bifid. Animalis [Probiotic 5 Billion Cell Cap] 1 each PO TID Oxycodone HCl 10 mg PO Q6H PRN 07/18/18 Polyethylene Glycol 3350 [Miralax 255 gm Btl -] 17 gm PO TID 07/18/18 Vitamin B Complex 1 tab PO DAILY 07/18/18 Diltiazem Cd [Cardizem Cd -] 120 mg PO DAILY cap.cd.24h 07/23/18 Acetaminophen [Pain Relief] 650 mg PO Q6H PRN 07/29/18 Bisacodyl Suppository [Dulcolax Suppository -] 10 mg RC DAILY PRN 07/29/18 Insulin Lispro [Humalog Kwikpen U-100] 0 unit SQ ASDIR 07/29/18 Mag Hydrox/Al Hydrox/Simeth [Mylanta Oral Suspension -] 30 ml PO DAILY PRN 07/29 Pantoprazole Sodium 40 mg PO DAILY 07/29/18 Nystatin Cream [Mycostatin Cream -] 1 applic TP Q6HPO applic 08/03/18 Aa/Hydrolyzed Collagen, Whey [Lps 15-30 Liquid] 30 ml PO DAILY 11/14/18 Folic Acid 1 mg PO DAILY 11/14/18 Hydroxyzine HCl 25 mg PO TID 11/14/18 Nilotinib HCl [Tasigna] 300 mg PO BID 11/14/18 Polyvinyl Alcohol [Artificial Tears] 1 drop OU QID 11/14/18 Pyridoxine HCl (B-6) [Vitamin B6 -] 100 mg PO DAILY 11/14/18 Sennosides [Senna Lax] 17.2 mg PO DAILY 11/14/18 Eliquis 5 mg PO BID 02/26/19 Glimepiride 1 mg PO AC 02/26/19 Torsemide 40 mg PO DAILY 02/26/19 Clindamycin [Cleocin -] 600 mg PO Q8H #42 capsule 05/19/19 Aa/Hydrolyzed Collagen, Whey [Lps 15-30 Liquid] 30 ml PO BID 05/23/19 Collagenase Clostridium Hist. [Santyl] 1 applic TP DAILY 05/23/19 Cyclobenzaprine HCl [Flexeril -] 5 mg PO BID 05/23/19 Docusate Sodium [Colace -] 300 mg PO DAILY 05/23/19 Fentanyl 1 each TD Q72H 05/23/19 Hydrocortisone [Preparation H] 26 gm RC DAILY 05/23/19 Imatinib Mesylate [Gleevec] 400 mg PO DAILY 05/23/19 Lactobacillus Acidophilus [Acidophilus] 1 each PO TID 05/23/19 Levothyroxine [Synthroid -] 25 mcg PO DAILY@0630 05/23/19 Lidocaine [Aspercreme] 1 each TP DAILY 05/23/19 Magnesium Hydroxide [Milk of Magnesia] 30 ml PO DAILY PRN 05/23/19 Menthol [Bengay Ultra Strength] 1 each TP DAILY 05/23/19 Menthol/Camphor [Sarna Anti-Itch Lotion] 222 ml TP DAILY PRN 05/23/19 Nystatin Powder [Nystop Topical Powder -] 15 applic TP BID 05/23/19 Oxycodone HCl 10 mg PO Q4HWA PRN 05/23/19 Polyethylene Glycol 3350 [Miralax (For Daily Use) -] 17 gm PO DAILY 05/23/19 Sodium Phosphate,[place]-Dibasic [Fleet Enema] 133 ml RC PRN PRN 05/23/19 Torsemide [Demadex -] 20 mg PO HS 05/23/19 Valacyclovir HCl [Valtrex] 500 mg PO BID 05/23/19 Family Disease History - Family Disease History Family Disease History: CA: Father ( 69 liver cancer), Mother ( 68 stomach cancer) Review of Systems - Review of Systems Constitutional: reports: Fever, Lethargy, Weakness Eyes: reports: No Symptoms HENT: reports: No Symptoms Neck: reports: No Symptoms Cardiovascular: reports: No Symptoms Respiratory: reports: No Symptoms Gastrointestinal: reports: No Symptoms Genitourinary: reports: No Symptoms Musculoskeletal: reports: Extremity Pain, Muscle Cramps Integumentary: reports: Change in Color, Erythema Neurological: reports: Other Endocrine: reports: No Symptoms Hematology/Lymphatic: reports: No Symptoms Psychiatric: reports: No Symptoms Physical Exam Vital Signs: Vital Signs Temperature 98.4 F 05/23/19 09:00 Pulse Rate 84 05/23/19 09:00 Respiratory Rate 18 05/23/19 09:00 Blood Pressure 108/69 05/23/19 09:00 O2 Sat by Pulse Oximetry (%) 99 05/23/19 09:00 Constitutional: Yes: Well Nourished, Calm, Mild Distress Cardiovascular: Yes: Regular Rate and Rhythm Respiratory: Yes: Regular, On Nasal O2, Poor Air Entry (bases) Gastrointestinal: Yes: Normal Bowel Sounds, Soft Musculoskeletal: Yes: Other Extremities: Yes: Erythema, Other (b/l leg non healing wounds) Integumentary: Yes: Erythema, Venous Stasis Changes, Other (wounds on the legs) Neurological: Yes: Alert, Lethargy Psychiatric: Yes: Alert Labs: CBC, BMP 05/23/19 05:42 05/23/19 05:42 Imaging - Results Chest X-ray: Report Reviewed, Image Reviewed X-ray: Report Reviewed, Image Reviewed Cat Scan: Report Reviewed, Image Reviewed Assessment/Plan 68 year old female with past medical history significant for CML, Multiple Myeloma, DM and AFib. She was brought from [facility] via EMS with complaints of feeling feverish for the past few days sepsis osteo ams Pancytopenia DM plan will start patient on vanco and zosyn close monitoring mri of the leg rest as per the team monitor wbc prophylactic antifungal
[2019-05-23] MEDS: oxyCODONE HCL 5 MG TABLET PO PRN ×2 (11:45→20:49)
--- NOTE | 2019-05-23 12:44 | CONSULT ---
Consult Consult Specialty:: Podiatry Reason for Consultation:: Right heel diabetic infection - History of Present Illness Chief Complaint: Right heel diabetic infection; brought in by EMS for fevers History of Present Illness: Patient notes approximately 3 weeks history of right heel ulcer. She has chronic osteomyelitis in the calcaneus, has been treated in the past with IV abx. The patient had a healed heel ulcer the last time I saw her. She reports fevers at SNF. - History Source History Provided By: Medical Record - Past Medical History PAVER LAYER: Yes: Dementia Cardio/Vascular: Yes: HTN, Hyperlipdemia, Murmur, Pulmonary Hypertension Pulmonary: Yes: COPD Gastrointestinal: Yes: Constipation Hepatobiliary: Yes: Cholelithiasis, Cholecystitis, Choledocholithiasis (03/17 biliary pancreatitis requiring ERCP,sphincteorotomy, stenitng and stone extraction), Other Renal/: Yes: Renal Calculi ...: No Musculoskeletal: Yes: Chronic low back pain (sciatica due to lumbar disc disease ) Endocrine: Yes: Diabetes Mellitus, Hypothyroidism Additional Medical History: Diabetic retinopathy. 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 History of Recent Travel: No Home Medications - Allergies Allergies/Adverse Reactions: Allergies Allergy/AdvReac Type Severity Reaction Status Date / Time metronidazole [From Flagyl] Allergy Severe Rash Verified 05/18/19 21:13 metoprolol Allergy Intermediate Rash Verified 05/18/19 21:13 - Home Medications Home Medications: Ambulatory Orders Albuterol Sulfate 2.5 mg IH Q8H PRN 07/18/18 Ammonium Lactate Lotion [Lac-Hydrin 12] 1 applic TP ASDIR 07/18/18 Ascorbic Acid [Vitamin C -] 1,000 mg PO DAILY 07/18/18 Gabapentin [Neurontin -] 100 mg PO TID 07/18/18 Ipratropium [place] 0.2 mg IH Q8H PRN 07/18/18 L. Acidophilus/Bifid. Animalis [Probiotic 5 Billion Cell Cap] 1 each PO TID Oxycodone HCl 10 mg PO Q6H PRN 07/18/18 Polyethylene Glycol 3350 [Miralax 255 gm Btl -] 17 gm PO TID 07/18/18 Vitamin B Complex 1 tab PO DAILY 07/18/18 Diltiazem Cd [Cardizem Cd -] 120 mg PO DAILY cap.cd.24h 07/23/18 Acetaminophen [Pain Relief] 650 mg PO Q6H PRN 07/29/18 Bisacodyl Suppository [Dulcolax Suppository -] 10 mg RC DAILY PRN 07/29/18 Insulin Lispro [Humalog Kwikpen U-100] 0 unit SQ ASDIR 07/29/18 Mag Hydrox/Al Hydrox/Simeth [Mylanta Oral Suspension -] 30 ml PO DAILY PRN 07/29 Pantoprazole Sodium 40 mg PO DAILY 07/29/18 Nystatin Cream [Mycostatin Cream -] 1 applic TP Q6HPO applic 08/03/18 Aa/Hydrolyzed Collagen, Whey [Lps 15-30 Liquid] 30 ml PO DAILY 11/14/18 Folic Acid 1 mg PO DAILY 11/14/18 Hydroxyzine HCl 25 mg PO TID 11/14/18 Nilotinib HCl [Tasigna] 300 mg PO BID 11/14/18 Polyvinyl Alcohol [Artificial Tears] 1 drop OU QID 11/14/18 Pyridoxine HCl (B-6) [Vitamin B6 -] 100 mg PO DAILY 11/14/18 Sennosides [Senna Lax] 17.2 mg PO DAILY 11/14/18 Eliquis 5 mg PO BID 02/26/19 Glimepiride 1 mg PO AC 02/26/19 Torsemide 40 mg PO DAILY 02/26/19 Clindamycin [Cleocin -] 600 mg PO Q8H #42 capsule 05/19/19 Aa/Hydrolyzed Collagen, Whey [Lps 15-30 Liquid] 30 ml PO BID 05/23/19 Collagenase Clostridium Hist. [Santyl] 1 applic TP DAILY 05/23/19 Cyclobenzaprine HCl [Flexeril -] 5 mg PO BID 05/23/19 Docusate Sodium [Colace -] 300 mg PO DAILY 05/23/19 Fentanyl 1 each TD Q72H 05/23/19 Hydrocortisone [Preparation H] 26 gm RC DAILY 05/23/19 Imatinib Mesylate [Gleevec] 400 mg PO DAILY 05/23/19 Lactobacillus Acidophilus [Acidophilus] 1 each PO TID 05/23/19 Levothyroxine [Synthroid -] 25 mcg PO DAILY@0630 05/23/19 Lidocaine [Aspercreme] 1 each TP DAILY 05/23/19 Magnesium Hydroxide [Milk of Magnesia] 30 ml PO DAILY PRN 05/23/19 Menthol [Bengay Ultra Strength] 1 each TP DAILY 05/23/19 Menthol/Camphor [Sarna Anti-Itch Lotion] 222 ml TP DAILY PRN 05/23/19 Nystatin Powder [Nystop Topical Powder -] 15 applic TP BID 05/23/19 Oxycodone HCl 10 mg PO Q4HWA PRN 05/23/19 Polyethylene Glycol 3350 [Miralax (For Daily Use) -] 17 gm PO DAILY 05/23/19 Sodium Phosphate,[place]-Dibasic [Fleet Enema] 133 ml RC PRN PRN 05/23/19 Torsemide [Demadex -] 20 mg PO HS 05/23/19 Valacyclovir HCl [Valtrex] 500 mg PO BID 05/23/19 Family Disease History - Family Disease History Family Disease History: CA: Father ( 69 liver cancer), Mother ( 68 stomach cancer) Physical Exam Vital Signs: Vital Signs Temperature 98.4 F 05/23/19 09:00 Pulse Rate 84 05/23/19 09:00 Respiratory Rate 18 05/23/19 09:00 Blood Pressure 108/69 05/23/19 09:00 O2 Sat by Pulse Oximetry (%) 99 05/23/19 09:00 Labs: CBC, BMP 05/23/19 05:42 05/23/19 05:42 Imaging - Results X-ray: Report Reviewed (No evidence of soft tissue gas) Problem List - Problems (1) Osteomyelitis Assessment/Plan: Imp: 68 year old diabetic female with right heel chronic osteomyelitis and diabetic foot infection 1. IV abx per infectious disease 2. MRI R foot/leg to evaluate for acute osteomyelitis 3. Needs vascular consultation 4. Will closely follow. Thank you for the courtesy of this consultation. Michaela Farmer DPM Code(s): M86.9 - OSTEOMYELITIS, UNSPECIFIED Qualifiers: Osteomyelitis type: other acute Osteomyelitis location: multiple sites Qualified Code(s): M86.19 - Other acute osteomyelitis, multiple sites
--- NOTE | 2019-05-23 13:55 | PN ---
Physical Exam: SUBJECTIVE: Patient seen and examined. She is currently fatigued. Pt is upset because she was informed about blood transfusion. She denies SOB and chest pain. OBJECTIVE: Vital Signs Period Temp Pulse Resp BP Sys/Machado Pulse Ox Last 24 Hr 98.4 F-101.4 F 82-94 18-24 102-125/55-79 98-99 GENERAL: The patient is awake, alert, and fully oriented, in no acute distress. HEAD: Normal with no signs of trauma. EYES: PERRL, extraocular movements intact, sclera anicteric, conjunctiva clear. No ptosis. ENT: Ears normal, nares patent, moist mucous membranes. NECK: Trachea midline, full range of motion, supple. LUNGS: Breath sounds equal, clear to auscultation bilaterally, no wheezes, no crackles, no accessory muscle use. HEART: Regular rate and rhythm, S1, S2 without murmur, rub or gallop. ABDOMEN: Soft, nontender, nondistended, normoactive bowel sounds EXTREMITIES: 2+ pulses, warm, well-perfused, no edema, except for bilateral lower extremity erythema, +2 pitting edema with crusting on anterior aspect. Right foot plantar surface stage 4 ulcer as well as left. NEUROLOGICAL: Cranial nerves II through XII grossly intact. Normal speech, gait not observed. PSYCH: Normal mood, normal affect. SKIN: Warm, dry, normal turgor, no rashes or lesions noted Laboratory Results - last 24 hr 05/22/19 05/22/19 05/22/19 17:50 17:50 17:50 WBC RBC Hgb Hct MCV MCH MCHC RDW Plt Count MPV Absolute Neuts (auto) Total Counted Neutrophils % Neutrophils % (Manual) Band Neutrophils % Lymphocytes % Lymphocytes % (Manual) Monocytes % Monocytes % (Manual) Eosinophils % Basophils % Nucleated RBC % Hypochromia Platelet Estimate Anisocytosis ESR > 140 H PT with INR 21.00 H INR 1.77 H PTT (Actin FS) 40.3 H Sodium Potassium Chloride Carbon Dioxide Anion Gap BUN Creatinine Est GFR (CKD-EPI)AfAm Est GFR (CKD-EPI)NonAf POC Glucometer Random Glucose Lactic Acid Calcium Phosphorus Magnesium Total Bilirubin AST ALT Alkaline Phosphatase Creatine Kinase 104 Troponin I < 0.02 C-Reactive Protein Total Protein Albumin TSH Random Vancomycin Blood Type Antibody Screen Prewarmed Antibody Srcn Direct Antiglob Test Crossmatch 05/22/19 05/22/19 05/22/19 17:50 17:50 17:50 WBC 0.8 L* RBC 2.31 L Hgb 7.0 L Hct 21.4 L MCV 92.5 MCH 30.3 MCHC 32.7 RDW 18.6 H Plt Count 109 L MPV 9.6 Absolute Neuts (auto) 0.0 L Total Counted 50 Neutrophils % 0.8 L Neutrophils % (Manual) 2.0 L Band Neutrophils % 4.0 Lymphocytes % 13.3 D Lymphocytes % (Manual) 50.0 H D Monocytes % 85.5 H D Monocytes % (Manual) 44 H D Eosinophils % 0.1 D Basophils % 0.3 Nucleated RBC % 0 Hypochromia 2+ Platelet Estimate Adequate Anisocytosis 1+ ESR PT with INR INR PTT (Actin FS) Sodium 134 L Potassium 4.6 Chloride 99 Carbon Dioxide 30 Anion Gap 6 L BUN 50.5 H Creatinine 1.4 H Est GFR (CKD-EPI)AfAm 44.01 Est GFR (CKD-EPI)NonAf 37.97 POC Glucometer Random Glucose 220 H Lactic Acid 1.3 Calcium 8.5 Phosphorus Magnesium Total Bilirubin 0.8 AST 62 H ALT 34 Alkaline Phosphatase 140 H Creatine Kinase Troponin I C-Reactive Protein 15.5 H Total Protein 7.0 Albumin 2.2 L TSH Random Vancomycin Blood Type Antibody Screen Prewarmed Antibody Srcn Direct Antiglob Test Crossmatch 05/22/19 05/23/19 05/23/19 22:48 05:42 05:42 WBC 0.5 L* RBC 2.11 L Hgb 6.4 L* Hct 19.5 L MCV 92.6 MCH 30.6 MCHC 33.0 RDW 18.8 H Plt Count 94 L MPV 9.2 Absolute Neuts (auto) 0.0 L Total Counted Neutrophils % No Result Required. Neutrophils % (Manual) Band Neutrophils % Lymphocytes % No Result Required. Lymphocytes % (Manual) Monocytes % Monocytes % (Manual) Eosinophils % Basophils % Nucleated RBC % 2 H Hypochromia Platelet Estimate Anisocytosis ESR PT with INR INR PTT (Actin FS) Sodium Potassium Chloride Carbon Dioxide Anion Gap BUN Creatinine Est GFR (CKD-EPI)AfAm Est GFR (CKD-EPI)NonAf POC Glucometer Random Glucose Lactic Acid 1.0 Calcium Phosphorus Magnesium Total Bilirubin AST ALT Alkaline Phosphatase Creatine Kinase Troponin I C-Reactive Protein Total Protein Albumin TSH Random Vancomycin 15.4 L Blood Type Antibody Screen Prewarmed Antibody Srcn Direct Antiglob Test Crossmatch 05/23/19 05/23/19 05/23/19 05:42 05:42 06:16 WBC RBC Hgb Hct MCV MCH MCHC RDW Plt Count MPV Absolute Neuts (auto) Total Counted Neutrophils % Neutrophils % (Manual) Band Neutrophils % Lymphocytes % Lymphocytes % (Manual) Monocytes % Monocytes % (Manual) Eosinophils % Basophils % Nucleated RBC % Hypochromia Platelet Estimate Anisocytosis ESR PT with INR 19.80 H INR 1.67 H PTT (Actin FS) 36.3 Sodium 135 L Potassium 3.9 Chloride 100 Carbon Dioxide 27 Anion Gap 8 BUN 51.8 H Creatinine 1.4 H Est GFR (CKD-EPI)AfAm 44.01 Est GFR (CKD-EPI)NonAf 37.97 POC Glucometer 209 Random Glucose 209 H Lactic Acid Calcium 7.7 L Phosphorus 2.7 Magnesium 2.3 Total Bilirubin 0.5 AST 24 ALT 25 Alkaline Phosphatase 122 H Creatine Kinase Troponin I C-Reactive Protein Total Protein 6.4 Albumin 2.0 L TSH 1.01 Random Vancomycin Blood Type Antibody Screen Prewarmed Antibody Srcn Direct Antiglob Test Crossmatch 05/23/19 05/23/19 08:10 11:48 WBC RBC Hgb Hct MCV MCH MCHC RDW Plt Count MPV Absolute Neuts (auto) Total Counted Neutrophils % Neutrophils % (Manual) Band Neutrophils % Lymphocytes % Lymphocytes % (Manual) Monocytes % Monocytes % (Manual) Eosinophils % Basophils % Nucleated RBC % Hypochromia Platelet Estimate Anisocytosis ESR PT with INR INR PTT (Actin FS) Sodium Potassium Chloride Carbon Dioxide Anion Gap BUN Creatinine Est GFR (CKD-EPI)AfAm Est GFR (CKD-EPI)NonAf POC Glucometer 221 Random Glucose Lactic Acid Calcium Phosphorus Magnesium Total Bilirubin AST ALT Alkaline Phosphatase Creatine Kinase Troponin I C-Reactive Protein Total Protein Albumin TSH Random Vancomycin Blood Type O POSITIVE Antibody Screen Positive Prewarmed Antibody Srcn Positive H Direct Antiglob Test Negative Crossmatch See Detail Active Medications Generic Name Dose Route Start Last Admin Trade Name Freq PRN Reason Stop Dose Admin Albuterol Sulfate 1 puff 05/23/19 03:12 Ventolin Hfa Inhaler - IH Q8H PRN SHORTNESS OF BREATH Apixaban 5 mg 05/23/19 10:00 05/23/19 10:25 Eliquis - PO 5 mg BID JOVITA Administration Ascorbic Acid 1,000 mg 05/23/19 10:00 05/23/19 10:25 Vitamin C - PO 1,000 mg DAILY JOVITA Administration Bisacodyl 10 mg 05/23/19 03:12 Dulcolax Suppository - RC DAILY PRN CONSTIPATION Diltiazem HCl 120 mg 05/23/19 10:00 05/23/19 10:25 Cardizem Cd - PO 120 mg DAILY JOVITA Administration Folic Acid 1 mg 05/23/19 10:00 05/23/19 10:25 Folic Acid - PO 1 mg DAILY JOVITA Administration Gabapentin 100 mg 05/23/19 06:00 05/23/19 06:32 Neurontin - PO 100 mg TID JOVITA Administration Sodium Chloride 1,000 mls @ 83 mls/hr 05/22/19 20:45 05/22/19 20:42 Normal Saline - IV 83 mls/hr ASDIR JOVITA Administration Vancomycin HCl 1,000 mg in 250 mls @ 200 mls/hr 05/23/19 20:00 Vancomycin (Pre-Docked) IVPB Q24H [facility] Protocol Piperacillin Sod/Tazobactam 50 mls @ 100 mls/hr 05/23/19 15:00 Sod 2.25 gm/ Dextrose IVPB Q6H-IV [facility] Protocol Ipratropium [place] 1 amp 05/23/19 03:12 Atrovent 0.02% Nebulizer - NEB Q8H PRN SHORTNESS OF BREATH Lactobacillus Acidophilus 1 tab 05/23/19 06:00 05/23/19 06:32 Bacid - PO 1 tab TID JOVITA Administration Levothyroxine Sodium 25 mcg 05/23/19 06:30 05/23/19 06:32 Synthroid - PO 25 mcg DAILY@0630 JOVITA Administration Multivit/Ca Carb/B Cmplx/FA/Prenat 1 tablet 05/23/19 10:00 05/23/19 10:25 Nephro-Majo - PO 1 tablet DAILY JOVITA Administration Non-Formulary Medication 1 each 05/23/19 03:15 Fentanyl [Fentanyl] TD Q72H JOVITA Oxycodone HCl 10 mg 05/23/19 03:12 05/23/19 11:45 Roxicodone - PO 10 mg Q4HWA PRN Administration PAIN 6-10 Polyethylene Glycol 17 gm 05/23/19 10:00 05/23/19 10:25 Miralax (For Daily Use) - PO 17 gm DAILY JOVITA Administration Pyridoxine HCl 100 mg 05/23/19 10:00 05/23/19 10:25 Vitamin B6 - PO 100 mg DAILY JOVITA Administration Senna 1 tab 05/23/19 10:00 05/23/19 10:25 Senna - PO 1 tab DAILY JOVITA Administration Tbo-Filgrastim 480 mcg 05/23/19 22:00 Granix - SQ 05/23/19 22:01 ONCE ONE Torsemide 20 mg 05/23/19 22:00 Demadex - PO HS JOVITA Valacyclovir HCl 500 mg 05/23/19 10:00 05/23/19 10:25 Valtrex - PO 500 mg BID JOVITA Administration ASSESSMENT/PLAN: Ms. 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 [facility] with complaints of feeling feverish for the past few days. #sepsis 2/2 bilateral LE cellulitis and likely right foot osteomyelitis WBC 0.8 with ANC 0 (Hx of CML and MM). x-ray lower extremity cannot r/o osteo, previous X ray of B/L lower extremities showed evidence of Osteomyelitis. previous wound cx showed Pseudomonas, MRSA, and Enterococcus. -blood cx, blood fungal cx, urine cx ordered, left foot wound cx -lactic acid normal -Quanteferon ordered -ID consulted- Zyvox -vascular consulted -podiatry consulted -oxycodone PRN #acute metabolic encephalopathy Likely from sepsis. -neuro exams #anemia of chronic disease Hb 6.4 -PRBCs ordered, waiting for compatible Ab #pancytopenia -hx of CML/MM -neupogen ordered -heme/onc #CVA CT head suggestive for acute/subacute lacunar infarct of dayron/medulla -neuro consult -MRI ordered #ASA Cr 1.4 -gentle hydration #Hx of AFib -Eliquis #Hx of DM -BGM -HbA1c 6.0 -SSI as needed FEN NS 83mL/hr monitor diabetic/Na controlled diet DVT Ppx Eliquis Visit type - Emergency Visit Emergency Visit: Yes ED Registration Date: 05/22/19 Care time: The patient presented to the Emergency Department on the above date and was hospitalized for further evaluation of their emergent condition. - New Patient This patient is new to me today: Yes Date on this admission: 05/23/19 - Critical Care Critical Care patient: No - Discharge Referral Referred to [facility] Med P.C.: No ATTENDING PHYSICIAN STATEMENT I saw and evaluated the patient. I reviewed the resident's note and discussed the case with the resident. I agree with the resident's findings and plan as documented. SUBJECTIVE: OBJECTIVE: ASSESSMENT AND PLAN:
[2019-05-23 14:02] LABS: ANISOCYTOSIS 2+; MACROCYTOSIS 0; PLATELET ESTIMATE DECREASED
[2019-05-23 14:07] LABS: EOS % 1.4 % (0-4.5); HEMATOCRIT 21.1 % (32.4-45.2); LYMPH % 30.6 % (8-40); MCH 30.4 pg (25.7-33.7); MCHC 32.9 g/dl (32.0-36.0); MEAN CELL VOLUME 92.4 fl (80-96); MEAN PLT VOLUME 9.2 fl (7.5-11.1); MONO % 67.4 % (3.8-10.2); NEUT % 0.6 % (42.8-82.8); PLATELET COUNT 100 K/MM3 (134-434); RBC 2.28 M/mm3 (3.60-5.2); RDW 18.2 % (11.6-15.6)
--- NOTE | 2019-05-23 14:07 | EKG ---
Test Reason : Blood Pressure : / mmHG Vent. Rate : 074 BPM Atrial Rate : 074 BPM P-R Int : 136 ms QRS Dur : 090 ms QT Int : 424 ms P-R-T Axes : -01 -05 042 degrees QTc Int : 470 ms NORMAL SINUS RHYTHM POSSIBLE ANTERIOR INFARCT (CITED ON OR BEFORE 18-MAY-2019) ABNORMAL ECG WHEN COMPARED WITH ECG OF 18-MAY-2019 22:32, SINUS RHYTHM HAS REPLACED JUNCTIONAL RHYTHM Confirmed by VITALIY MIRANDA, CAROLINE ([id number]) on 05/23/2019 2:06:48 PM Referred By: Confirmed By:CAROLINE BURKS MD
[2019-05-23 14:18] LABS: HEMOGLOBIN 6.9 GM/dL (10.7-15.3); WHITE BLOOD COUNT 0.3 K/mm3 (4.0-10.0)
[2019-05-23] MEDS ORDERED: PIPERACILLIN/TAZOBACTAM 2.25 GM VIAL IVPB ONE ×2 (15:02→20:31)
[2019-05-23] MEDS: PIPERACILLIN/TAZOB 2.25 GM 2.25 GM in DEXTROSE 5%-WATER - 50 ML IVPB SCH ×2 (15:03→21:35)
--- NOTE | 2019-05-23 16:06 | CONSULT ---
Admitting History and Physical - Primary Care Physician PCP: Toña Magana - Admission History of Present Illness: 68 year old female with pmh of chronic myeloid leukemia, multiple myeloma, diabetes, atrial fibrillation admitted [facility] for fevers and cellulitis of b/l lower extremities due to ulcers, right heel chronic osteomyelitis/diabetic foot infection. Selected Entries 05/22/19 05/23/19 05/23/19 17:06 03:00 05:00 Breakfast Chief Complaint lethargy, fever , bilat foot wounds Eating (Feeding Total ) Ability Assistance Temperature 101.4 F H 99.9 F H 98.4 F Blood Pressure 105/55 L 104/79 05/23/19 05/23/19 05/23/19 09:00 11:55 15:00 Breakfast 50% Chief Complaint Eating (Feeding ) Ability Temperature 98.4 F 98.3 F Blood Pressure 108/69 102/54 L Laboratory Tests 05/23/19 05:42 WBC 0.5 L* BIBA from SNF for increased lethargy., Neutropenia- On reverese isolation. This is my first consult with this pt. 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 Cardiovascular: Yes: HTN, Hyperlipdemia, Murmur, Pulmonary Hypertension Pulmonary: Yes: COPD Gastrointestinal: Yes: Constipation Hepatobiliary: Yes: Cholelithiasis, Cholecystitis, Choledocholithiasis (03/17 biliary pancreatitis requiring ERCP,sphincteorotomy, stenitng and stone extraction), Other Renal/: Yes: Renal Calculi ...: No Heme/Onc: Yes: Anemia (transfusion requirinig due to chronic GI bleeding (small bowel vascular ectasia) and CML ), Cancer (CML) Musculoskeletal: Yes: Chronic low back pain (sciatica due to lumbar disc disease ) Endocrine: Yes: Diabetes Mellitus, Hypothyroidism - Past Surgical History Past Surgical History: Yes: Cholecystectomy, , Hernia Repair - Smoking History Smoking history: Former smoker Have you smoked in the past 12 months: No Aproximately how many cigarettes per day: 0 If you are a former smoker, when did you quit?: 10/25/2013 - Alcohol/Substance Use Hx Alcohol Use: No History of Substance Use: reports: None - Social History ADL: Support Services 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 History of Recent Travel: No History - Admission Reason For Visit: CELLULITIS - Diagnostics CT Scan: Report Reviewed MRI: Pending - General Mental Status: Alert and Oriented (hospital, lives at [place], 68 yo, not date), Vague, Lethargic (shivers, falls asleep while talking, distractible) Attention: Mild Impairment Ability to Follow Directions: Good - Hearing Hearing: Normal Hearing Aide: No With Patient: No Speech Evaluation - Communication Primary Language: MOLDOVAN Communication: Yes: Within Normal Limits - Speech Production Able to Make Needs Known: Yes: WNL Intelligibility: Yes: WNL - Speech Characteristics Voice Loudness: Normal Voice Pitch: Yes: Normal Voice Phonatory-based Quality: Yes: Normal Speech Pattern: Normal Speech Clarity: < 100% Nasal Resonance: Normal Articulation: Yes: Imprecise (slight, lethargy) Rate of Speech: Too Slow (slight) - Language/Auditory Comprehension Follows: Yes: 1 Stage Simple Commands Observation: Able to respond to yes/no queries: Yes, Yes/No Confusion: No, Comprehends Conversational Speech: Yes - Language/Verbal Expression Able to Communicate Wants and Needs: Yes: Mildly Impaired - Swallow Evaluation/Bedside Assessment Current Nutritional Intake: Regular, Thin Liquids Oral Secretions: Yes: WFL Dentition: Yes: Missing Teeth Facial Symmetry at Rest: Symmetrical Facial Symmetry on Retraction: Symmetrical Facial Movement: Controlled Against Resistance Opening: Weak Against Resistance Closing: Weak Pucker Lips: Normal, Weak Smile: Normal, Weak Lingual Movement: Symmetric Lingual Speed of Movement: Reduced Lingual Movement Strgth Against Opposition: Reduced Laryngeal Elevation: WFL Laryngeal Movement: Able to Palpate Rate of Intake: WFL Bolus Size: WFL Labial Seal: Impaired Right Chewing: WFL Oral Prep Time: WFL A-P Transit: WFL Pocketing: None Timing of Swallow: WFL Coughing/Throat Clear: Yes (Brief responsive cough, drinking water rapdly, HOB at 70 Perc-refused elev) Recommendations - Speech Evaluation, Impression/Plan Impression: Brief responsive cough, drinking water rapidly, HOB at 70 degrees- refused further HOB elevation due to pain on her bottom. Monitor for recurrent cough with thin liquid- encourage single sips, no straws, HOB elevated as tolerated. May need thickener if signs of aspiration - Dysphagia Impressions/Plan Dysphagia Impressions: Minimal Impairment, Risk of Aspiration *Silent aspiration: cannot be R/O at bedside Recommendations: Other (RD Consult- Protein/ supplements, as indicated.) - Recommendations Diet Consistency: Regular (soft) Medication Administration: Crushed with applesauce Liquids: Thin Liquids (single sips/no straws.) Supplement: Ensure, Magic Cup
--- NOTE | 2019-05-23 16:10 | PN ---
Teaching Attending Note Name of Resident: Lidia Segura ATTENDING PHYSICIAN STATEMENT I saw and evaluated the patient. I reviewed the resident's note and discussed the case with the resident. I agree with the resident's findings and plan as documented. SUBJECTIVE:c/o leg pain R>L and generalized fatigue. denies Cp, SOB, fever, chills, N/V/C/D, weakness on one side of body vs other OBJECTIVE: Last Vital Signs Temp Pulse Resp BP Pulse Ox 98.3 F 74 18 102/54 L 99 05/23/19 15:00 05/23/19 15:00 05/23/19 15:00 05/23/19 15:00 05/23/19 09:00 General fatigued, weak, A&O x3 CV S1 S2 irregular Lungs CTA anteriorly Abdomen soft NT/ND Extremities R heel ulcer 1cm deep with exudate probes to bone, undemarcated edges, tender, B/L LE erythema with warmth and tenderness, chronic venous changes. +lymphedema, Neuro CN II-XII grossly intact, no pronator drift, no dysmetria or dysdakinesia. sensation grossly intact, strength 5/5 B/L UE, unable to assess lower extremities due to pain ASSESSMENT AND PLAN: 68yo F with PMH MM, CML, DM, Afib on eliquis sent from [facility] for altered mental status and found to be septic due to R heel cellulitis with suspected OM and acute/subacute CVA 1. Sepsis due to B/L LE cellulitis and suspected R heel OM- Neutropenic with fevers and tachycardia. heel wound seems to probe to bone. will get MRI to assess extent of disease. started n vanco/zosyn/caspofungin for broad coverage given neutropenia. daily vanco levels. spoke with podiatry who is hesitant to take to OR for debridement due to extent of disease and poor wound healing. will treat medically at this time and if does not respond consider debridement. vascular surgery eval and ID eval. F/u Cx 2. Acute metabolic encephalopathy- likely due to sepsis. clinically improved at this time. Head CT done. will treat underlying infection 3. Acute/subacute Lacunar infarct- out of window for TPA at this time. will obtain MRI, carotid doppler and echo. claims compliance with eliquis. will start crestor. check lipid panel. neuro and speech and swallow eval. frequent neurochecks 4. pancytopenia- neupogen given in the Er. no signs of bleeding. 2 units PRBC ordered however due to ab not available at this time, blood bank calling other facilities. will moniotr. neutropenic precautions. ID on board 5. ASA- due to sepsis. cont wtih treating infection. renal u/s ordered. will f/ u. avoid nephrotoxic agents 6. MM 7. CML- on gleevec. oncology consulted 8. Afib on eliquis- rate controlled. cont current treatment. would cont eliquis as no signs of active bleeding 9. hypothyroid- LT4 10. DVT ppx- eliquis
--- NOTE | 2019-05-23 17:36 | CONSULT ---
Consult Consult Specialty:: Vascular surgery - History of Present Illness History of Present Illness: This is 68 year old woman with CML, Multiple Myeloma, DM and AFib. She has chronic swelling of both legs and ulcers on both feet. She was admitted from SNF withulcers of both heels involving bone. She has had vascular testing ion the past which showed atherosclerotic plaque of both femoral arteries without significant decrease in distal flow. Patient is followed in Wound Care by Drs. Baker and Surinder. There are no recent notes available to review. 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 History of Recent Travel: No Home Medications - Allergies Allergies/Adverse Reactions: Allergies Allergy/AdvReac Type Severity Reaction Status Date / Time metronidazole [From Flagyl] Allergy Severe Rash Verified 05/18/19 21:13 metoprolol Allergy Intermediate Rash Verified 05/18/19 21:13 - Home Medications Home Medications: Ambulatory Orders Albuterol Sulfate 2.5 mg IH Q8H PRN 07/18/18 Ascorbic Acid [Vitamin C -] 1,000 mg PO DAILY 07/18/18 Gabapentin [Neurontin -] 100 mg PO TID 07/18/18 Ipratropium [place] 0.2 mg IH Q8H PRN 07/18/18 Vitamin B Complex 1 tab PO DAILY 07/18/18 Diltiazem Cd [Cardizem Cd -] 120 mg PO DAILY cap.cd.24h 07/23/18 Acetaminophen [Pain Relief] 650 mg PO Q6H PRN 07/29/18 Bisacodyl Suppository [Dulcolax Suppository -] 10 mg RC DAILY PRN 07/29/18 Insulin Lispro [Humalog Kwikpen U-100] 0 unit SQ ASDIR 07/29/18 Mag Hydrox/Al Hydrox/Simeth [Mylanta Oral Suspension -] 30 ml PO DAILY PRN 07/29 Folic Acid 1 mg PO DAILY 11/14/18 Pyridoxine HCl (B-6) [Vitamin B6 -] 100 mg PO DAILY 11/14/18 Sennosides [Senna Lax] 17.2 mg PO DAILY 11/14/18 Eliquis 5 mg PO BID 02/26/19 Glimepiride 1 mg PO AC 02/26/19 Torsemide 40 mg PO AM 02/26/19 Clindamycin [Cleocin -] 600 mg PO Q8H #42 capsule 05/19/19 Aa/Hydrolyzed Collagen, Whey [Lps 15-30 Liquid] 30 ml PO BID 05/23/19 Collagenase Clostridium Hist. [Santyl] 1 applic TP DAILY 05/23/19 Cyclobenzaprine HCl [Flexeril -] 5 mg PO BID 05/23/19 Docusate Sodium [Colace] 300 mg PO DAILY 05/23/19 Fentanyl 1 each TD Q72H 05/23/19 Hydrocortisone [Preparation H] 26 gm RC DAILY 05/23/19 Imatinib Mesylate [Gleevec] 400 mg PO DAILY 05/23/19 Lactobacillus Acidophilus [Acidophilus] 1 each PO TID 05/23/19 Levothyroxine [Synthroid -] 25 mcg PO DAILY@0630 05/23/19 Lidocaine [Aspercreme] 1 each TP DAILY 05/23/19 Magnesium Hydroxide [Milk of Magnesia] 30 ml PO DAILY PRN 05/23/19 Menthol [Bengay Ultra Strength] 1 each TP DAILY 05/23/19 Menthol/Camphor [Sarna Anti-Itch Lotion] 222 ml TP DAILY PRN 05/23/19 Nystatin Powder [Nystop Topical Powder -] 15 applic TP BID 05/23/19 Oxycodone HCl 10 mg PO Q4HWA PRN 05/23/19 Pantoprazole Sodium [Protonix] 40 mg PO DAILY 05/23/19 Polyethylene Glycol 3350 [Miralax (For Daily Use) -] 17 gm PO DAILY 05/23/19 Polyvinyl Alcohol [Artificial Tears] 1 drop OU QID 05/23/19 Sodium Phosphate,Placer-Dibasic [Fleet Enema] 133 ml RC PRN PRN 05/23/19 Torsemide [Demadex -] 20 mg PO HS 05/23/19 Valacyclovir HCl [Valtrex] 500 mg PO BID 05/23/19 Physical Exam Vital Signs: Vital Signs Temperature 98.3 F 05/23/19 15:00 Pulse Rate 74 05/23/19 15:00 Respiratory Rate 18 05/23/19 15:00 Blood Pressure 102/54 L 05/23/19 15:00 O2 Sat by Pulse Oximetry (%) 99 05/23/19 09:00 Constitutional: Yes: Obese, Pallor Gastrointestinal: Yes: Soft Extremities: Yes: Other (4+ edema both thighs, calves and feet. Verrucous skin changes with healed ulcers in both legs. Feet warm, distal pulses not palpable.) Peripheral Pulses WNL: No (Palpable femoral pulses, pedal pulses not palpable.) Wound/Incision: Yes: Other (Right heel ulcer with fibrinous base.) Labs: CBC, BMP 05/23/19 13:45 05/23/19 05:42 Problem List - Problems (1) Lymphedema Assessment/Plan: Chronic lymphedema with stasis skin changes. management with elevation and JANE wraps ordered. Skin moisturizer daily. Code(s): I89.0 - LYMPHEDEMA, NOT ELSEWHERE CLASSIFIED (2) Osteomyelitis of foot Assessment/Plan: Chronic right heel ulcer with x-ray and MRI suggesting bone infection. There is no evidence for severe arterial disease. Recommend Podiatry and ID intervention as needed. Code(s): M86.9 - OSTEOMYELITIS, UNSPECIFIED Qualifiers: Laterality: right
[2019-05-23] MEDS ORDERED: CASPOFUNGIN ACETATE 70 MG in SODIUM CHLORIDE 250 ML IVPB SCH (18:00)
[2019-05-23] MEDS ORDERED: CASPOFUNGIN ACETATE 50 MG in SODIUM CHLORIDE 250 ML IVPB SCH (18:00)
[2019-05-23 18:26] LABS: ANISOCYTOSIS 1+; MACROCYTOSIS 0; PLATELET ESTIMATE DECREASED
--- NOTE | 2019-05-23 20:44 | PN ---
Progress Note (short form) - Note Progress Note: Patient seen and examined c/o back pain AFVSS Cor: RSR, No murmurs, No gallops Lungs: Clear to P&A Abd: Soft, Normal bowel sounds, No organomegaly Ext: stasis dermatitis/ulcers Labs/Meds reviewed A/P 68 y/o patient with CML/ multiple myeloma on daratumumab/velcade/ dex and imatinib comes in with myelosuppression/neutropenia/ fever/ ? cellulitis Will transfuse PRBCs for HHGb 6.9 Vanco/zosyn for cellulitis neupogen support hold imatinib on eliquis --monitor CBC
[2019-05-23] MEDS ORDERED: ACETAMINOPHEN 1000 MG/100 ML VIAL (NON FORMULARY) IVPB PRN (21:32)
[2019-05-23] MEDS: TORSEMIDE 20 MG TABLET (FP) PO SCH (21:57)
[2019-05-23] MEDS ORDERED: TBO-FILGRASTIM 480 MCG/0.8 ML DISP.SYRIN SQ ONE (22:00)
[2019-05-23] MEDS: VANCOMYCIN 1 GRAM (PRE-DOCKED) 1,000 MG/250 ML BAG IVPB SCH (22:10)
[2019-05-23] MEDS: SODIUM CHLORIDE 1,000 ML IV SCH (22:45)
[2019-05-24] MEDS ORDERED: PIPERACILLIN/TAZOBACTAM 2.25 GM VIAL IVPB ONE ×4 (01:21→21:00)
[2019-05-24] MEDS ORDERED: DEXTROSE 5%-WATER - 50 ML IVPB ONE ×4 (01:21→21:01)
[2019-05-24] MEDS: PIPERACILLIN/TAZOB 2.25 GM 2.25 GM in DEXTROSE 5%-WATER - 50 ML IVPB SCH ×4 (04:00→23:40)
[2019-05-24] MEDS: LACTOBACILLUS ACIDOPHILUS 1 TABLET PO SCH ×3 (06:41→22:21)
[2019-05-24] MEDS: LEVOTHYROXINE NA 25 MCG TABLET (FP) PO SCH (06:41)
[2019-05-24] MEDS: GABAPENTIN 100 MG CAPSULE (FP) PO SCH ×3 (06:42→22:21)
[2019-05-24] MEDS ORDERED: MAGNESIUM HYDROX 2400MG/30ML ORAL SUSPENSION 30 ML CUP PO PRN (07:07)
--- NOTE | 2019-05-24 09:15 | CONSULT ---
Consult - text type - Consultation Consultation Note: Neurology CHIEF COMPLAINT: Fever with B/L L/E edema and generalized weakness for the past 3 days HISTORY OF PRESENT ILLNESS: 68 year old female with past medical history significant for CML, Multiple Myeloma, DM and AFib. She was brought from [facility] via EMS with complaints of feeling feverish for the past few days. Upon examination she was AOx3, but appeared to be drowsy and diaphoretic, and was unable to provide a history. As per chart review, she presented to the [facility] ER on 05/18 with B/L lower extremity edema and B/L grade 4 heel ulcers. She was D/C on PO Clindamycin 800mg TID. X rays of lower extremities B/L and left foot showed evidence of osteomyelitis, and wound culture showed Pseudomonas, MRSA, and Enterococcus. Patient on Abx for possible osteomyelitis. Is also under neutropenic cautions and being followed by heme/onc. Of note, noncontrast head CT was completed and showed areas suspicious for acute to subacute infarct in the left pontine region. MRI brain has been ordered but not yet completed. Patient denies any deficits and upper extremities are symmetric, limited exam of lower extremities secondary to pain but moving grossly. Recent Travel: Patient unresponsive to questioning PAST MEDICAL HISTORY: CML: On [place] Multiple Myeloma: Weekly transfusions, last transfusion yesterday DM AFib: On Eliquis PAST SURGICAL HISTORY: Patient unresponsive to questioning Social History: Patient unresponsive to questioning Smoking: Alcohol: Drugs: Family History: HTN Allergies metronidazole [From Flagyl] Allergy (Severe, Verified 05/18/19 21:13) Rash metoprolol Allergy (Intermediate, Verified 05/18/19 21:13) Rash HOME MEDICATIONS: Home Medications Medication Instructions Recorded Albuterol Sulfate 2.5 mg IH Q8H PRN 07/18/18 Ammonium Lactate Lotion 1 applic TP ASDIR 07/18/18 [Lac-Hydrin 12] Ascorbic Acid [Vitamin C -] 500 mg PO DAILY 07/18/18 Gabapentin [Neurontin -] 100 mg PO BID 07/18/18 Ipratropium [place] 0.2 mg IH Q8H PRN 07/18/18 L. Acidophilus/Bifid. Animalis 1 each PO TID 07/18/18 [Probiotic 5 Billion Cell Cap] Oxycodone HCl 10 mg PO Q6H PRN 07/18/18 Polyethylene Glycol 3350 [Miralax 17 gm PO TID 07/18/18 255 gm Btl -] Vitamin B Complex 1 tab PO DAILY 07/18/18 Diltiazem Cd [Cardizem Cd -] 120 mg PO DAILY cap.cd.24h 07/23/18 Docusate Sodium [Colace -] 100 mg PO TID capsule 07/23/18 Levothyroxine [Synthroid -] 25 mcg PO DAILY@0700 tablet 07/23/18 Acetaminophen [Pain Relief] 650 mg PO Q6H PRN 07/29/18 Bisacodyl Suppository [Dulcolax 10 mg RC DAILY PRN 07/29/18 Suppository -] Insulin Lispro [Humalog Kwikpen 0 unit SQ ASDIR 07/29/18 U-100] Mag Hydrox/Al Hydrox/Simeth 30 ml PO Q6H PRN 07/29/18 [Mylanta Oral Suspension -] Pantoprazole Sodium 40 mg PO DAILY 07/29/18 Nystatin Cream [Mycostatin Cream -] 1 applic TP Q6HPO applic 08/03/18 Torsemide [Demadex -] 20 mg PO DAILY tablet 08/03/18 Aa/Hydrolyzed Collagen, Whey [Lps 30 ml PO DAILY 11/14/18 15-30 Liquid] Folic Acid 1 mg PO DAILY 11/14/18 Hydroxyzine HCl 25 mg PO TID 11/14/18 Nilotinib HCl [Tasigna] 300 mg PO BID 11/14/18 Polyvinyl Alcohol [Artificial 1 drop OU QID 11/14/18 Tears] Pyridoxine HCl (B-6) [Vitamin B6 -] 100 mg PO DAILY 11/14/18 Sennosides [Senna Lax] 8.6 mg PO DAILY 11/14/18 Eliquis 5 mg PO BID 02/26/19 Glimepiride 1 mg PO DAILY 02/26/19 Torsemide 40 mg PO HS 02/26/19 Clindamycin [Cleocin -] 600 mg PO Q8H #42 capsule 05/19/19 REVIEW OF SYSTEMS CONSTITUTIONAL: fever, diaphoresis Absent: fever, chills, diaphoresis, generalized weakness, malaise, loss of appetite, weight change HEENT: Absent: rhinorrhea, nasal congestion, throat pain, throat swelling, difficulty swallowing, mouth swelling, ear pain, eye pain, visual changes CARDIOVASCULAR: Absent: chest pain, syncope, palpitations, irregular heart rate, lightheadedness , peripheral edema RESPIRATORY: Absent: cough, shortness of breath, dyspnea with exertion, orthopnea, wheezing, stridor, hemoptysis GASTROINTESTINAL: Absent: abdominal pain, abdominal distension, nausea, vomiting, diarrhea, constipation, melena, hematochezia GENITOURINARY: Absent: dysuria, frequency, urgency, hesitancy, hematuria, flank pain, genital pain MUSCULOSKELETAL: Absent: myalgia, arthralgia, joint swelling, back pain, neck pain SKIN: Absent: rash, itching, pallor HEMATOLOGIC/IMMUNOLOGIC: Absent: easy bleeding, easy bruising, lymphadenopathy, frequent infections ENDOCRINE: Absent: unexplained weight gain, unexplained weight loss, heat intolerance, cold intolerance NEUROLOGIC: Absent: headache, focal weakness or paresthesias, dizziness, unsteady gait, seizure, mental status changes, bladder or bowel incontinence PSYCHIATRIC: Absent: anxiety, depression, suicidal or homicidal ideation, hallucinations. PHYSICAL EXAMINATION Vital Signs - 24 hr 05/22/19 05/22/19 17:06 17:15 Temperature 101.4 F H Pulse Rate 84 Respiratory 19 Rate Blood Pressure 125/72 O2 Sat by Pulse 98 99 Oximetry (%) GENERAL: AOx3, drowsy and diaphoretic HEAD: Normal with no signs of trauma. LUNGS: Breath sounds equal, clear to auscultation bilaterally. No wheezes, and no crackles. No accessory muscle use. HEART: Regular rate and rhythm, normal S1 and S2 without murmur, rub or gallop. ABDOMEN: Soft, nontender, not distended, normoactive bowel sounds, no guarding, no rebound, no masses. No hepatomegaly or splenomegaly. MUSCULOSKELETAL: Normal range of motion at all joints. No bony deformities or tenderness. No CVA tenderness. UPPER EXTREMITIES: Multiple petichiae visible B/L LOWER EXTREMITIES: B/L non tender erythema below the knee with crusting and no discharge, non pitting edema, grade 4 ulcers on both heels B/L PSYCHIATRIC: Ox3 and drowsy Neuro: cranial nerves in fact, symmetric 5/5 strength in upper extremities, moves lower extremities grossly but not participating confrontation due to pain , sensory intact to light touch, not able to tolerate pinprick CBCD WBC 0.3 K/mm3 (4.0-10.0) L* 05/23/19 13:45 RBC 2.28 M/mm3 (3.60-5.2) L 05/23/19 13:45 Hgb 6.9 GM/dL (10.7-15.3) L* 05/23/19 13:45 Hct 21.1 % (32.4-45.2) L 05/23/19 13:45 MCV 92.4 fl (80-96) 05/23/19 13:45 MCHC 32.9 g/dl (32.0-36.0) 05/23/19 13:45 RDW 18.2 % (11.6-15.6) H 05/23/19 13:45 Plt Count 100 K/MM3 (134-434) L 05/23/19 13:45 MPV 9.2 fl (7.5-11.1) 05/23/19 13:45 CMP Sodium 135 mmol/L (136-145) L 05/23/19 05:42 Potassium 3.9 mmol/L (3.5-5.1) 05/23/19 05:42 Chloride 100 mmol/L (98-107) 05/23/19 05:42 Carbon Dioxide 27 mmol/L (21-32) 05/23/19 05:42 Anion Gap 8 MMOL/L (8-16) 05/23/19 05:42 BUN 51.8 mg/dL (7-18) H 05/23/19 05:42 Creatinine 1.4 mg/dL (0.55-1.3) H 05/23/19 05:42 Random Glucose 209 mg/dL (74-106) H 05/23/19 05:42 Calcium 7.7 mg/dL (8.5-10.1) L 05/23/19 05:42 Total Bilirubin 0.5 mg/dL (0.2-1) 05/23/19 05:42 AST 24 U/L (15-37) 05/23/19 05:42 ALT 25 U/L (13-61) 05/23/19 05:42 Alkaline Phosphatase 122 U/L (45-117) H 05/23/19 05:42 Total Protein 6.4 g/dl (6.4-8.2) 05/23/19 05:42 Albumin 2.0 g/dl (3.4-5.0) L 05/23/19 05:42 CARDIAC ENZYMES Creatine Kinase 104 U/L (26-192) 05/22/19 17:50 Troponin I < 0.02 ng/ml (0.00-0.05) 05/22/19 17:50 ASSESSMENT/PLAN: 68 year old female with past medical history significant for CML, Multiple Myeloma, DM and AFib. She was brought from [facility] via EMS with complaints of feeling feverish for the past few days. Upon examination she was AOx3, but appeared to be drowsy and diaphoretic, and was unable to provide a history. As per chart review, she presented to the [facility] ER on 05/18 with B/L lower extremity edema and B/L grade 4 heel ulcers. She was D/C on PO Clindamycin 800mg TID. X rays of lower extremities B/L and left foot showed evidence of osteomyelitis, and wound culture showed Pseudomonas, MRSA, and Enterococcus. Patient on Abx for possible osteomyelitis. Is also under neutropenic cautions and being followed by heme/onc. Of note, noncontrast head CT was completed and showed areas suspicious for acute to subacute infarct in the left pontine region. MRI brain has been ordered but not yet completed. Patient denies any deficits and upper extremities are symmetric, limited exam of lower extremities secondary to pain but moving grossly. Continue optimization of infectious disease. patient already on Eliquis for atrial fibrillation and I would not addadditional agent as to risk for subsequent bleeding. Advised checking carotid Dopplers, echo. Monitor blood pressure, maintain normotensive range. monitor glucose, maintain euglycemic range. Recommend checking LDL, consider statin if LDL greater than 100. DVT prophylaxis. Pain control as the stable.
[2019-05-24 09:25] LABS: HEMATOCRIT 21.2 % (32.4-45.2); MCH 30.8 pg (25.7-33.7); MCHC 33.1 g/dl (32.0-36.0); MEAN CELL VOLUME 92.8 fl (80-96); MEAN PLT VOLUME 9.7 fl (7.5-11.1); PLATELET COUNT 117 K/MM3 (134-434); RBC 2.29 M/mm3 (3.60-5.2); RDW 18.9 % (11.6-15.6)
[2019-05-24] MEDS: PYRIDOXINE HCL (B-6) 100 MG TABLET PO SCH (09:33)
[2019-05-24] MEDS: valACYclovir HCL 500 MG TABLET (FP) PO SCH ×2 (09:33→22:21)
[2019-05-24] MEDS: VITAMIN B COMP W-C 1 EA TABLET PO SCH (09:34)
[2019-05-24] MEDS: POLYETHYLENE GLYCOL 3350 119 GM BTL PO SCH (09:34)
[2019-05-24] MEDS: FOLIC ACID 1 MG TABLET (FP) PO SCH (09:34)
[2019-05-24] MEDS: APIXABAN 5 MG TABLET PO SCH ×2 (09:34→23:42)
[2019-05-24] MEDS: ASCORBIC ACID 500 MG TABLET (FP) PO SCH (09:34)
[2019-05-24] MEDS: SENNOSIDES 8.6MG TABLET (FP) PO SCH (09:34)
[2019-05-24] MEDS: ARTIFICIAL TEARS (POLYVINYL ALCOHOL) OPTH DROPS OU SCH ×4 (09:34→23:42)
[2019-05-24 09:43] LABS: WHITE BLOOD COUNT 0.8 K/mm3 (4.0-10.0)
[2019-05-24 09:46] LABS: BLOOD UREA NITROGEN 51.2 mg/dL (7-18); CREATININE 1.7 mg/dL (0.55-1.3); POTASSIUM 3.8 mmol/L (3.5-5.1)
--- NOTE | 2019-05-24 10:41 | PN ---
Physical Exam: SUBJECTIVE: Patient seen and examined. She denies chest pain and abdominal pain. LE pain bilaterally with some improvement with pain medication. Fevers and chills. OBJECTIVE: Vital Signs Period Temp Pulse Resp BP Sys/Machado Pulse Ox Last 24 Hr 98.1 F-102.3 F 62-84 18-20 102-125/45-58 99 GENERAL: The patient is awake, alert, and fully oriented, in no acute distress. HEAD: Normal with no signs of trauma. EYES: PERRL, extraocular movements intact, sclera anicteric, conjunctiva clear. No ptosis. ENT: Ears normal, nares patent, moist mucous membranes. NECK: Trachea midline, full range of motion, supple. LUNGS: Breath sounds equal, clear to auscultation bilaterally, no wheezes, no crackles, no accessory muscle use. HEART: Regular rate and rhythm, S1, S2 without murmur, rub or gallop. ABDOMEN: Soft, nontender, nondistended, normoactive bowel sounds EXTREMITIES: 2+ pulses, warm, well-perfused, no edema, except for bilateral lower extremity erythema, +2 pitting edema with crusting on anterior aspect. Right foot plantar surface stage 4 ulcer as well as left plantar ulcer stage 3/ 4. NEUROLOGICAL: Cranial nerves II through XII grossly intact. Normal speech, gait not observed. PSYCH: Normal mood, normal affect. SKIN: Warm, dry, normal turgor, no rashes or lesions noted Laboratory Results - last 24 hr 05/23/19 05/23/19 05/23/19 05:42 08:10 11:48 WBC RBC Hgb Hct MCV MCH MCHC RDW Plt Count MPV Absolute Neuts (auto) Neutrophils % Neutrophils % (Manual) 0.0 L Band Neutrophils % 0.0 Lymphocytes % Lymphocytes % (Manual) 53.6 H Monocytes % Monocytes % (Manual) 45 H Eosinophils % Eosinophils % (Manual) 1.0 D Basophils % Basophils % (Manual) 0.0 Myelocytes % (Man) 0 Promyelocytes % (Man) 0 Blast Cells % (Manual) 0 Nucleated RBC % Metamyelocytes 0 Hypochromia 0 Platelet Estimate Decreased Polychromasia 1+ Poikilocytosis 0 Anisocytosis 2+ Microcytosis 2+ Macrocytosis 0 Sodium Potassium Chloride Carbon Dioxide Anion Gap BUN Creatinine Est GFR (CKD-EPI)AfAm Est GFR (CKD-EPI)NonAf POC Glucometer 221 Random Glucose Hemoglobin A1c % Calcium Random Vancomycin Blood Type O POSITIVE Antibody Screen Positive Prewarmed Antibody Srcn Positive H Direct Antiglob Test Negative Crossmatch See Detail 05/23/19 05/23/19 05/24/19 13:45 13:45 08:55 WBC 0.3 L* 0.8 L* RBC 2.28 L 2.29 L Hgb 6.9 L* 7.0 L Hct 21.1 L 21.2 L MCV 92.4 92.8 MCH 30.4 30.8 MCHC 32.9 33.1 RDW 18.2 H 18.9 H Plt Count 100 L 117 L MPV 9.2 9.7 Absolute Neuts (auto) 0.0 L 0.0 L Neutrophils % 0.6 L No Result Required. Neutrophils % (Manual) 6.3 L Band Neutrophils % 0.0 Lymphocytes % 30.6 D No Result Required. Lymphocytes % (Manual) 46.9 H Monocytes % 67.4 H Monocytes % (Manual) 33 H Eosinophils % 1.4 D Eosinophils % (Manual) 3.1 D Basophils % 0.0 Basophils % (Manual) 1.0 D Myelocytes % (Man) 1 D Promyelocytes % (Man) 0 Blast Cells % (Manual) 0 Nucleated RBC % 3 H 1 H Metamyelocytes 2 D Hypochromia 0 Platelet Estimate Decreased Polychromasia 1+ Poikilocytosis 0 Anisocytosis 1+ Microcytosis 1+ Macrocytosis 0 Sodium Potassium Chloride Carbon Dioxide Anion Gap BUN Creatinine Est GFR (CKD-EPI)AfAm Est GFR (CKD-EPI)NonAf POC Glucometer Random Glucose Hemoglobin A1c % 6.0 Calcium Random Vancomycin Blood Type Antibody Screen Prewarmed Antibody Srcn Direct Antiglob Test Crossmatch 05/24/19 05/24/19 08:55 08:55 WBC RBC Hgb Hct MCV MCH MCHC RDW Plt Count MPV Absolute Neuts (auto) Neutrophils % Neutrophils % (Manual) Band Neutrophils % Lymphocytes % Lymphocytes % (Manual) Monocytes % Monocytes % (Manual) Eosinophils % Eosinophils % (Manual) Basophils % Basophils % (Manual) Myelocytes % (Man) Promyelocytes % (Man) Blast Cells % (Manual) Nucleated RBC % Metamyelocytes Hypochromia Platelet Estimate Polychromasia Poikilocytosis Anisocytosis Microcytosis Macrocytosis Sodium 134 L Potassium 3.8 Chloride 101 Carbon Dioxide 24 Anion Gap 9 BUN 51.2 H Creatinine 1.7 H Est GFR (CKD-EPI)AfAm 34.80 Est GFR (CKD-EPI)NonAf 30.03 POC Glucometer Random Glucose 177 H Hemoglobin A1c % Calcium 8.0 L Random Vancomycin 18.0 Blood Type Antibody Screen Prewarmed Antibody Srcn Direct Antiglob Test Crossmatch Active Medications Generic Name Dose Route Start Last Admin Trade Name Freq PRN Reason Stop Dose Admin Acetaminophen 1,000 mg 05/23/19 21:32 05/23/19 21:46 Ofirmev Injection - IVPB 1,000 mg Q6H PRN Administration FEVER Albuterol Sulfate 1 puff 05/23/19 03:12 Ventolin Hfa Inhaler - IH Q8H PRN SHORTNESS OF BREATH Apixaban 5 mg 05/23/19 10:00 05/24/19 09:34 Eliquis - PO 5 mg BID JOVITA Administration Artificial Tears 1 drop 05/24/19 10:00 05/24/19 09:34 Artificial Tears OU 1 drp QID JOVITA Administration Ascorbic Acid 1,000 mg 05/23/19 10:00 05/24/19 09:34 Vitamin C - PO 1,000 mg DAILY JOVITA Administration Bisacodyl 10 mg 05/23/19 03:12 Dulcolax Suppository - RC DAILY PRN CONSTIPATION Diltiazem HCl 120 mg 05/23/19 10:00 05/24/19 09:34 Cardizem Cd - PO 120 mg DAILY JOVITA Administration Folic Acid 1 mg 05/23/19 10:00 05/24/19 09:34 Folic Acid - PO 1 mg DAILY JOVITA Administration Gabapentin 100 mg 05/23/19 06:00 05/24/19 06:42 Neurontin - PO 100 mg TID JOVITA Administration Sodium Chloride 1,000 mls @ 83 mls/hr 05/22/19 20:45 05/23/19 22:45 Normal Saline - IV 83 mls/hr ASDIR JOVITA Administration Vancomycin HCl 1,000 mg in 250 mls @ 200 mls/hr 05/23/19 20:00 05/23/19 22:10 Vancomycin (Pre-Docked) IVPB 200 mls/hr Q24H JOVITA Administration Protocol Piperacillin Sod/Tazobactam 50 mls @ 100 mls/hr 05/23/19 15:00 05/24/19 09:33 Sod 2.25 gm/ Dextrose IVPB 100 mls/hr Q6H-IV JOVITA Administration Protocol Caspofungin 50 mg/ Sodium 250 mls @ 250 mls/hr 05/23/19 18:00 Chloride IVPB Q24H JOVITA Ipratropium [place] 1 amp 05/23/19 03:12 Atrovent 0.02% Nebulizer - NEB Q8H PRN SHORTNESS OF BREATH Lactobacillus Acidophilus 1 tab 05/23/19 06:00 05/24/19 06:41 Bacid - PO 1 tab TID JOVITA Administration Levothyroxine Sodium 25 mcg 05/23/19 06:30 05/24/19 06:41 Synthroid - PO 25 mcg DAILY@0630 JOVITA Administration Magnesium Hydroxide 30 ml 05/24/19 07:07 Milk Of Magnesia - PO DAILY PRN CONSTIPATION Multivit/Ca Carb/B Cmplx/FA/Prenat 1 tablet 05/23/19 10:00 05/24/19 09:34 Nephro-Majo - PO 1 tablet DAILY JOVITA Administration Non-Formulary Medication 1 each 05/23/19 03:15 Fentanyl [Fentanyl] TD Q72H JOVITA Oxycodone HCl 10 mg 05/23/19 03:12 05/23/19 20:49 Roxicodone - PO 10 mg Q4HWA PRN Administration PAIN 6-10 Polyethylene Glycol 17 gm 05/23/19 10:00 05/24/19 09:34 Miralax (For Daily Use) - PO 17 gm DAILY JOVITA Administration Pyridoxine HCl 100 mg 05/23/19 10:00 05/24/19 09:33 Vitamin B6 - PO 100 mg DAILY JOVITA Administration Senna 1 tab 05/23/19 10:00 05/24/19 09:34 Senna - PO 1 tab DAILY JOVITA Administration Torsemide 20 mg 05/23/19 22:00 05/23/19 21:57 Demadex - PO 20 mg HS JOVITA Administration Valacyclovir HCl 500 mg 05/23/19 10:00 05/24/19 09:33 Valtrex - PO 500 mg BID JOVITA Administration ASSESSMENT/PLAN: Ms. 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 She was brought from [facility] via EMS with complaints of feeling feverish for the past few days. #sepsis 2/2 bilateral LE cellulitis and likely right foot osteomyelitis WBC 0.8 with ANC 0 (Hx of CML and MM). x-ray lower extremity cannot r/o osteo, previous X ray of B/L lower extremities showed evidence of Osteomyelitis. -Wound cx positive Proteus mirabilis, Pseudomonas, MRSA, and Enterococcus. -blood cx, blood fungal cx, urine cx ordered, left foot wound cx -lactic acid normal -Quanteferon ordered -MRI ordered to r/o osteo -ID consulted- Zyvox -vascular consulted -podiatry consulted -oxycodone 10mg Q4 H PRN #acute metabolic encephalopathy Likely from sepsis. -Zyvox for cellulitis and osteomyelitis -neuro exams #anemia of chronic disease Hb 6.4-->7.0. PRBCs were ordered yesterday but type and screen showed Ab incompatibility, which is likely from onc medication. Pt may receive PRBCs if Hb is below 7. -monitor CBC -heme monitoring #pancytopenia -hx of CML/MM -neupogen -heme/onc #CVA CT head suggestive for acute/subacute lacunar infarct of dayron/medulla -neuro consult -MRI ordered #ASA Cr 1.4 -gentle hydration #Hx of AFib -Eliquis #Hx of DM -BGM -HbA1c 6.0 -SSI as needed FEN NS 83mL/hr monitor diabetic/Na controlled diet DVT Ppx Eliquis Visit type - Emergency Visit Emergency Visit: Yes ED Registration Date: 05/22/19 Care time: The patient presented to the Emergency Department on the above date and was hospitalized for further evaluation of their emergent condition. - New Patient This patient is new to me today: No - Critical Care Critical Care patient: No - Discharge Referral Referred to [facility] Med P.C.: No ATTENDING PHYSICIAN STATEMENT I saw and evaluated the patient. I reviewed the resident's note and discussed the case with the resident. I agree with the resident's findings and plan as documented. SUBJECTIVE: OBJECTIVE: ASSESSMENT AND PLAN:
--- NOTE | 2019-05-24 11:51 | ECHO ---
Name: XIAO HAGEN Exam:Adult Echocardiogram Study Date: 05/24/2019 07:39 AM Age: 68 yrs Reason For Study: r/o thrombus Height: 63 in Weight: 231 lb BSA: 2.1 m2 MMode/2D Measurements & Calculations IVSd: 1.1 cm Ao root diam: 2.3 cm LVIDd: 5.1 cm LA dimension: 3.7 cm LVIDs: 3.7 cm LVPWd: 1.1 cm EDV(Teich): 122.1 ml LVOT diam: 2.0 cm ESV(Teich): 59.2 ml Doppler Measurements & Calculations MV E max celso: 126.0 cm/sec Ao V2 max: 258.1 cm/sec MV A max celso: 113.7 cm/sec Ao max P.7 mmHg MV E/A: 1.1 Ao V2 mean: 176.4 cm/sec MV dec time: 0.23 sec Ao mean P.3 mmHg Ao V2 VTI: 49.7 cm VANESA(I,D): 1.8 cm2 VANESA(V,D): 1.6 cm2 LV V1 max P.5 mmHg SV(LVOT): 87.6 ml LV V1 mean P.1 mmHg LV V1 max: 127.6 cm/sec LV V1 mean: 96.4 cm/sec LV V1 VTI: 27.8 cm TR max celso: 384.3 cm/sec PA V2 max: 162.1 cm/sec TR max P.2 mmHg PA max P.5 mmHg Med Peak E' Celso: 8.1 cm/sec Med E/e': 15.7 Lat Peak E' Celso: 8.8 cm/sec Lat E/e': 14.3 Procedure The study was technically difficult with many images being suboptimal in quality. Left Ventricle Left ventricular systolic function is grossly normal. Right Ventricle The right ventricle is grossly normal size. The right ventricular systolic function is grossly normal . Atria The left atrium is mildly dilated. Right atrial size is normal. Mitral Valve There is severe mitral annular calcification. There is no mitral valve stenosis. There is trace mike l regurgitation. Tricuspid Valve The tricuspid valve is normal in structure and function. There is moderate tricuspid regurgitation. R ight ventricular systolic pressure is elevated at >60mmHg. Aortic Valve There is severe aortic valve thickening. Mild valvular aortic stenosis. Pulmonic Valve The pulmonic valve is not well seen, but is grossly normal. Great Vessels The aortic root is normal size. Pericardium/Pleura There is no pericardial effusion. Interpretation Summary The study was technically difficult with many images being suboptimal in quality. Left ventricular systolic function is grossly normal. The right ventricle is grossly normal size. The right ventricular systolic function is grossly normal. The left atrium is mildly dilated. There is severe mitral annular calcification. There is moderate tricuspid regurgitation. Right ventricular systolic pressure is elevated at >60mmHg. Mild valvular aortic stenosis. There is no pericardial effusion. MD Romo *Yoni 05/24/2019 11:51 AM
[2019-05-24] MEDS ORDERED: ACETAMINOPHEN 325 MG TABLET (FP) ONE (12:09)
[2019-05-24] MEDS: oxyCODONE HCL 5 MG TABLET PO PRN (12:11)
--- NOTE | 2019-05-24 13:00 | PN ---
Progress Note, Physician History of Present Illness: still lethargic c/o pain in the lower ext - Current Medication List Current Medications: Active Medications Acetaminophen (Ofirmev Injection -) 1,000 mg IVPB Q6H PRN PRN Reason: FEVER Last Admin: 05/23/19 21:46 Dose: 1,000 mg Albuterol Sulfate (Ventolin Hfa Inhaler -) 1 puff IH Q8H PRN PRN Reason: SHORTNESS OF BREATH Apixaban (Eliquis -) 5 mg PO BID [facility] Last Admin: 05/24/19 09:34 Dose: 5 mg Artificial Tears (Artificial Tears) 1 drop OU QID JOVITA Last Admin: 05/24/19 09:34 Dose: 1 drp Ascorbic Acid (Vitamin C -) 1,000 mg PO DAILY [facility] Last Admin: 05/24/19 09:34 Dose: 1,000 mg Bisacodyl (Dulcolax Suppository -) 10 mg RC DAILY PRN PRN Reason: CONSTIPATION Diltiazem HCl (Cardizem Cd -) 120 mg PO DAILY [facility] Last Admin: 05/24/19 09:34 Dose: 120 mg Folic Acid (Folic Acid -) 1 mg PO DAILY [facility] Last Admin: 05/24/19 09:34 Dose: 1 mg Gabapentin (Neurontin -) 100 mg PO TID [facility] Last Admin: 05/24/19 06:42 Dose: 100 mg Sodium Chloride (Normal Saline -) 1,000 mls @ 83 mls/hr IV ASDIR [facility] Last Admin: 05/23/19 22:45 Dose: 83 mls/hr Vancomycin HCl (Vancomycin (Pre-Docked)) 1,000 mg in 250 mls @ 200 mls/hr IVPB Q24H [facility]; Protocol Last Admin: 05/23/19 22:10 Dose: 200 mls/hr Piperacillin Sod/Tazobactam (Sod 2.25 gm/ Dextrose) 50 mls @ 100 mls/hr IVPB Q6H-IV JOVITA; Protocol Last Admin: 05/24/19 09:33 Dose: 100 mls/hr Caspofungin 50 mg/ Sodium (Chloride) 250 mls @ 250 mls/hr IVPB Q24H [facility]OV[facility] Ipratropium [place] (Atrovent 0.02% Nebulizer -) 1 amp NEB Q8H PRN PRN Reason: SHORTNESS OF BREATH Lactobacillus Acidophilus (Bacid -) 1 tab PO TID [facility] Last Admin: 05/24/19 06:41 Dose: 1 tab Levothyroxine Sodium (Synthroid -) 25 mcg PO DAILY@0630 [facility] Last Admin: 05/24/19 06:41 Dose: 25 mcg Magnesium Hydroxide (Milk Of Magnesia -) 30 ml PO DAILY PRN PRN Reason: CONSTIPATION Multivit/Ca Carb/B Cmplx/FA/Prenat (Nephro-Majo -) 1 tablet PO DAILY [facility] Last Admin: 05/24/19 09:34 Dose: 1 tablet Non-Formulary Medication (Fentanyl [Fentanyl]) 1 each TD Q72H [facility] Oxycodone HCl (Roxicodone -) 10 mg PO Q4HWA PRN PRN Reason: PAIN 6-10 Last Admin: 05/24/19 12:11 Dose: 10 mg Polyethylene Glycol (Miralax (For Daily Use) -) 17 gm PO DAILY [facility] Last Admin: 05/24/19 09:34 Dose: 17 gm Pyridoxine HCl (Vitamin B6 -) 100 mg PO DAILY [facility] Last Admin: 05/24/19 09:33 Dose: 100 mg Senna (Senna -) 1 tab PO DAILY [facility] Last Admin: 05/24/19 09:34 Dose: 1 tab Torsemide (Demadex -) 20 mg PO HS [facility] Last Admin: 05/23/19 21:57 Dose: 20 mg Valacyclovir HCl (Valtrex -) 500 mg PO BID [facility] Last Admin: 05/24/19 09:33 Dose: 500 mg - Objective Vital Signs: Vital Signs Temperature 98.8 F 05/24/19 08:55 Pulse Rate 79 05/24/19 08:55 Respiratory Rate 18 05/24/19 08:55 Blood Pressure 110/58 L 05/24/19 08:55 O2 Sat by Pulse Oximetry (%) 99 05/23/19 18:58 Constitutional: Yes: Calm, Mild Distress, Obese, Other (drowsy) Cardiovascular: Yes: Regular Rate and Rhythm Respiratory: Yes: Regular, CTA Bilaterally Gastrointestinal: Yes: Normal Bowel Sounds, Soft Musculoskeletal: Yes: WNL Extremities: Yes: Other Wound/Incision: Yes: Dressing Dry and Intact Neurological: Yes: Alert, Lethargy Psychiatric: Yes: Alert Labs: CBC, BMP 05/24/19 08:55 05/24/19 08:55 INR, PTT INR 1.67 (0.83-1.09) H 05/23/19 05:42 Assessment/Plan 68 year old female with past medical history significant for CML, Multiple Myeloma, DM and AFib. [facility] with complaints of feeling feverish for the past few days sepsis osteo ams Pancytopenia DM plan continue abx monitor vanco levels neuro wound care rest as per the team monitor i and o
[2019-05-24 13:01] LABS: PLATELET ESTIMATE DECREASED
[2019-05-24 13:02] LABS: ANISOCYTOSIS 1+; MACROCYTOSIS 1+
--- NOTE | 2019-05-24 13:02 | PN ---
Teaching Attending Note Name of Resident: Lidia Segura ATTENDING PHYSICIAN STATEMENT I saw and evaluated the patient. I reviewed the resident's note and discussed the case with the resident. I agree with the resident's findings and plan as documented. SUBJECTIVE:c/o pain that is not relieved wtih pain medications. pain is mostly in the RLE. denies Cp, SOB, fever, chills, N/V/C/D OBJECTIVE: Last Vital Signs Temp Pulse Resp BP Pulse Ox 98.8 F 79 18 110/58 L 99 05/24/19 08:55 05/24/19 08:55 05/24/19 08:55 05/24/19 08:55 05/23/19 18:58 General fatigued, weak, A&O x3,falls asleep during questioning but wakes up easily CV S1 S2 irregular Lungs CTA anteriorly Abdomen soft NT/ND Extremities B/L LE erythema, warm and tender. +lymphedema ASSESSMENT AND PLAN: 68yo F with PMH MM, CML, DM, Afib on eliquis sent from [facility] for altered mental status and found to be septic due to R heel cellulitis with suspected OM and acute/subacute CVA 1. Sepsis due to B/L LE cellulitis and suspected R heel OM- tm 102.3 remains neutropenic. awaiting MRI RLE to evaluate for OM and extent of disease. on vanco /zosyn/caspofungin day 2. awaiting vanco level. podiatry to re-evaluate on monday to determine if requires debridement. [facility] surgery, podiatry adn ID on board. neutropenic precautions. 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 F/u Cx 2. Acute metabolic encephalopathy- likely due to sepsis. is lethargic, possible from pain medication vs infection. will monitor closely. frequent neurochecks 3. Acute/subacute Lacunar infarct- no residual deficits. seen by neuro and speech and swallow. MRI brain, carotid doppler and echo pending. on pump servicer helper but known to have afib. on eliquis and statin. frequent neurochecks 4. pancytopenia- neupogen given in the Er. Hgb stable. PRBC not given yesterday due to ab in blood. will give 1 unit PRBC today adn chech post- transfusion cbc. hematology following. neutropenic precautions. ID on board 5. ASA- due to sepsis. cont wtih treating infection. renal u/s ordered. will f/ u. avoid nephrotoxic agents 6. MM 7. CML- on gleevec. oncology consulted 8. Afib on eliquis- rate controlled. cont current treatment. would cont eliquis as no signs of active bleeding 9. hypothyroid- LT4 10. DVT ppx- eliquis
--- NOTE | 2019-05-24 13:26 | PN ---
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 No coughing with solids or liquids and no congestion reported.
[2019-05-24 14:55] VITALS: BMI 44.6
--- NOTE | 2019-05-24 17:17 | PN ---
Progress Note (short form) - Note Progress Note: Patient notes approximately 3 weeks history of right heel ulcer. Has history of chronic osteo on the heel. States has severe pain. Is on neutropenic precuations. O: Right heel with deep ucleration that probes directly to the calcaneus, no surrounding erythema, no purulence, mild malodor noted, left heel with superfical presssure ulceration, no erthema, no purulence noted, gross edema noted b/l legs and feet A: Right heel likely osteomyelitis P: evaluated and reviewed If bone biopsy is needed will require heme clearance given severe neutropenia In my opinion no gross debridment should be performed of the ulceration or bone given severity of neutropenia as well as severity of the ulceration. Will await the MRI to see extent of osseus changes but will likely require long-term IV abx and likely best to treat with offloading to have any attempt at healing the ulceration although prognosis for limb salvage on the right is likely going to be limited Wound redressed Will continue to follow Iv abx per ID.
[2019-05-24] MEDS ORDERED: PT OWN MED DRAWER 7, Y5N ONE ×2 (18:02→22:51)
[2019-05-24 18:41] LABS: URINE APPEARANCE CLOUDY; URINE BILIRUBIN NEGATIVE (NEGATIVE); URINE COLOR YELLOW; URINE GLUCOSE (UA) NEGATIVE (NEGATIVE); URINE KETONE NEGATIVE (NEGATIVE); URINE LEUK ESTERASE NEGATIVE (NEGATIVE); URINE NITRITE NEGATIVE (NEGATIVE); URINE PROTEIN TRACE (NEGATIVE); URINE UROBILINOGEN 0.2 mg/dL (0.2-1.0)
--- NOTE | 2019-05-24 20:26 | PN ---
Progress Note (short form) - Note Progress Note: Patient seen and examined c/o back pain AFVSS Cor: RSR, No murmurs, No gallops Lungs: Clear to P&A Abd: Soft, Normal bowel sounds, No organomegaly Ext: stasis dermatitis/ulcers Labs/Meds reviewed A/P 68 y/o patient with CML/ multiple myeloma on daratumumab/velcade/ dex and imatinib comes in with myelosuppression/neutropenia/ fever/ ? cellulitis Will transfuse PRBCs for HHGb 6.9----- false + alloab screen due to interference from daratumumab . will request crossing and [facility] matching [facility] Vanco/taty for cellulitis neupogen support hold imatinib on eliquis --monitor CBC
[2019-05-24] MEDS ORDERED: TBO-FILGRASTIM 480 MCG/0.8 ML DISP.SYRIN SQ ONE (22:00)
[2019-05-24] MEDS: CASPOFUNGIN ACETATE 50 MG in SODIUM CHLORIDE 250 ML IVPB SCH (22:13)
[2019-05-24] MEDS: SODIUM CHLORIDE 1,000 ML IV SCH (22:20)
[2019-05-24] MEDS: TORSEMIDE 20 MG TABLET (FP) PO SCH (22:21)
[2019-05-24] MEDS: VANCOMYCIN 1 GRAM (PRE-DOCKED) 1,000 MG/250 ML BAG IVPB SCH (23:40)
[2019-05-25] MEDS: PIPERACILLIN/TAZOB 2.25 GM 2.25 GM in DEXTROSE 5%-WATER - 50 ML IVPB SCH ×4 (03:30→23:04)
[2019-05-25] MEDS: LACTOBACILLUS ACIDOPHILUS 1 TABLET PO SCH ×3 (06:12→21:52)
[2019-05-25] MEDS: LEVOTHYROXINE NA 25 MCG TABLET (FP) PO SCH (06:12)
[2019-05-25] MEDS: GABAPENTIN 100 MG CAPSULE (FP) PO SCH ×3 (06:12→21:51)
--- NOTE | 2019-05-25 08:57 | PN ---
Progress Note, Physician History of Present Illness: 68yo F with PMH MM, CML, DM, Afib on eliquis sent from [facility] for altered mental status and found to be septic due to R heel cellulitis with suspected OM and acute/subacute CVA - Current Medication List Current Medications: Active Medications Acetaminophen (Ofirmev Injection -) 1,000 mg IVPB Q6H PRN PRN Reason: FEVER Last Admin: 05/23/19 21:46 Dose: 1,000 mg Albuterol Sulfate (Ventolin Hfa Inhaler -) 1 puff IH Q8H PRN PRN Reason: SHORTNESS OF BREATH Apixaban (Eliquis -) 5 mg PO BID [facility] Last Admin: 05/24/19 23:42 Dose: 5 mg Artificial Tears (Artificial Tears) 1 drop OU QID JOVITA Last Admin: 05/24/19 23:42 Dose: 1 drp Ascorbic Acid (Vitamin C -) 1,000 mg PO DAILY [facility] Last Admin: 05/24/19 09:34 Dose: 1,000 mg Bisacodyl (Dulcolax Suppository -) 10 mg RC DAILY PRN PRN Reason: CONSTIPATION Diltiazem HCl (Cardizem Cd -) 120 mg PO DAILY [facility] Last Admin: 05/24/19 09:34 Dose: 120 mg Folic Acid (Folic Acid -) 1 mg PO DAILY [facility] Last Admin: 05/24/19 09:34 Dose: 1 mg Gabapentin (Neurontin -) 100 mg PO TID [facility] Last Admin: 05/25/19 06:12 Dose: 100 mg Sodium Chloride (Normal Saline -) 1,000 mls @ 83 mls/hr IV ASDIR [facility]OVITA Last Admin: 05/24/19 22:20 Dose: 83 mls/hr Vancomycin HCl (Vancomycin (Pre-Docked)) 1,000 mg in 250 mls @ 200 mls/hr IVPB Q24H [facility]; Protocol Last Admin: 05/24/19 23:40 Dose: 200 mls/hr Piperacillin Sod/Tazobactam (Sod 2.25 gm/ Dextrose) 50 mls @ 100 mls/hr IVPB Q6H-IV [facility]OVITA; Protocol Last Admin: 05/25/19 03:30 Dose: Not Given Caspofungin 50 mg/ Sodium (Chloride) 250 mls @ 250 mls/hr IVPB Q24H [facility]OV[facility] Last Admin: 05/24/19 22:13 Dose: 250 mls/hr Ipratropium [place] (Atrovent 0.02% Nebulizer -) 1 amp NEB Q8H PRN PRN Reason: SHORTNESS OF BREATH Lactobacillus Acidophilus (Bacid -) 1 tab PO TID [facility] Last Admin: 05/25/19 06:12 Dose: 1 tab Levothyroxine Sodium (Synthroid -) 25 mcg PO DAILY@0630 [facility] Last Admin: 05/25/19 06:12 Dose: 25 mcg Magnesium Hydroxide (Milk Of Magnesia -) 30 ml PO DAILY PRN PRN Reason: CONSTIPATION Multivit/Ca Carb/B Cmplx/FA/Prenat (Nephro-Majo -) 1 tablet PO DAILY [facility] Last Admin: 05/24/19 09:34 Dose: 1 tablet Non-Formulary Medication (Fentanyl [Fentanyl]) 1 each TD Q72H [facility] Oxycodone HCl (Roxicodone -) 10 mg PO Q4HWA PRN PRN Reason: PAIN 6-10 Last Admin: 05/24/19 12:11 Dose: 10 mg Polyethylene Glycol (Miralax (For Daily Use) -) 17 gm PO DAILY [facility] Last Admin: 05/24/19 09:34 Dose: 17 gm Pyridoxine HCl (Vitamin B6 -) 100 mg PO DAILY [facility] Last Admin: 05/24/19 09:33 Dose: 100 mg Senna (Senna -) 1 tab PO DAILY [facility] Last Admin: 05/24/19 09:34 Dose: 1 tab Torsemide (Demadex -) 20 mg PO HS [facility] Last Admin: 05/24/19 22:21 Dose: 20 mg Valacyclovir HCl (Valtrex -) 500 mg PO BID [facility] Last Admin: 05/24/19 22:21 Dose: 500 mg - Objective Vital Signs: Vital Signs Temperature 98.7 F 05/25/19 06:45 Pulse Rate 75 05/25/19 06:45 Respiratory Rate 20 05/25/19 06:45 Blood Pressure 92/51 L 05/25/19 06:45 O2 Sat by Pulse Oximetry (%) 98 05/24/19 20:30 General fatigued, weak, A&O x3,falls asleep during questioning but wakes up easily CV S1 S2 irregular Lungs CTA anteriorly Abdomen soft NT/ND Extremities B/L LE erythema, warm and tender. +lymphedema Labs: CBC, BMP 05/24/19 08:55 05/24/19 08:55 INR, PTT INR 1.67 (0.83-1.09) H 05/23/19 05:42 Problem List - Problems (1) Cellulitis Assessment/Plan: with neutropenuia on IV abx as per ID recommendations Code(s): L03.90 - CELLULITIS, UNSPECIFIED Qualifiers: Site of cellulitis: extremity Site of cellulitis of extremity: lower extremity Laterality: unspecified laterality Qualified Code(s): L03.119 - Cellulitis of unspecified part of limb (2) Neutropenic fever Assessment/Plan: Cont Neutropenic precautions F/Y Hematology recommendations. Code(s): D70.9 - NEUTROPENIA, UNSPECIFIED; R50.81 - FEVER PRESENTING WITH CONDITIONS CLASSIFIED ELSEWHERE (3) A-fib Assessment/Plan: Afib on eliquis- rate controlled. cont current treatment. would cont eliquis as no signs of active bleeding Code(s): I48.91 - UNSPECIFIED ATRIAL FIBRILLATION Qualifiers: Atrial fibrillation type: chronic Qualified Code(s): I48.2 - Chronic atrial fibrillation (4) Sepsis Assessment/Plan: Sepsis due to B/L LE cellulitis and suspected R heel OM- tm 102.3 remains neutropenic. awaiting MRI RLE to evaluate for OM and extent of disease. on vanco /zosyn/caspofungin day 2. awaiting vanco level. podiatry to re-evaluate on monday to determine if requires debridement. [facility] surgery, podiatry adn ID on board. neutropenic precautions. 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 F/u Cx Code(s): A41.9 - SEPSIS, UNSPECIFIED ORGANISM Qualifiers: Sepsis type: sepsis due to unspecified organism Sepsis acute organ dysfunction status: unspecified Qualified Code(s): A41.9 - Sepsis, unspecified organism (5) Acute kidney injury superimposed on CKD Assessment/Plan: ASA- due to sepsis. cont wtih treating infection. renal u/s ordered. will f/u. avoid nephrotoxic meds. Code(s): N17.9 - ACUTE KIDNEY FAILURE, UNSPECIFIED; N18.9 - CHRONIC KIDNEY DISEASE, UNSPECIFIED (6) HTN (hypertension) Assessment/Plan: well controlled cont current meds Code(s): I10 - ESSENTIAL (PRIMARY) HYPERTENSION (7) T2DM (type 2 diabetes mellitus) Assessment/Plan: optimize glycemic control Code(s): E11.9 - TYPE 2 DIABETES MELLITUS WITHOUT COMPLICATIONS Qualifiers: Diabetes mellitus complication status: with neurologic complications (8) Toxic metabolic encephalopathy Assessment/Plan: Acute metabolic encephalopathy- likely due to sepsis. is lethargic, possible from pain medication vs infection. will monitor closely. frequent neurochecks Code(s): G92 - TOXIC ENCEPHALOPATHY (9) CML (chronic myelocytic leukemia) Assessment/Plan: CML- on gleevec. oncology consulted Code(s): C92.10 - CHRONIC MYELOID LEUK, BCR/ABL-POSITIVE, NOT ACHIEVE REMIS
[2019-05-25] MEDS ORDERED: DEXTROSE 5%-WATER - 50 ML IVPB ONE ×3 (09:12→20:01)
[2019-05-25] MEDS ORDERED: PIPERACILLIN/TAZOBACTAM 2.25 GM VIAL IVPB ONE ×3 (09:12→20:01)
[2019-05-25] MEDS: VITAMIN B COMP W-C 1 EA TABLET PO SCH (09:30)
[2019-05-25] MEDS: APIXABAN 5 MG TABLET PO SCH ×2 (09:30→21:51)
[2019-05-25] MEDS: FOLIC ACID 1 MG TABLET (FP) PO SCH (09:30)
[2019-05-25] MEDS: valACYclovir HCL 500 MG TABLET (FP) PO SCH ×2 (09:31→21:51)
[2019-05-25] MEDS: ASCORBIC ACID 500 MG TABLET (FP) PO SCH (09:31)
[2019-05-25] MEDS: SENNOSIDES 8.6MG TABLET (FP) PO SCH (09:31)
[2019-05-25] MEDS: POLYETHYLENE GLYCOL 3350 119 GM BTL PO SCH (09:31)
[2019-05-25] MEDS: PYRIDOXINE HCL (B-6) 100 MG TABLET PO SCH (09:32)
[2019-05-25] MEDS: ARTIFICIAL TEARS (POLYVINYL ALCOHOL) OPTH DROPS OU SCH ×4 (10:00→21:51)
[2019-05-25 10:19] LABS: BASO % 0.4 % (0-2.0); EOS % 10.2 % (0-4.5); HEMATOCRIT 24.7 % (32.4-45.2); LYMPH % 13.3 % (8-40); MCHC 32.6 g/dl (32.0-36.0); MEAN CELL VOLUME 92.2 fl (80-96); MEAN PLT VOLUME 9.6 fl (7.5-11.1); MONO % 61.3 % (3.8-10.2); NEUT % 14.8 % (42.8-82.8); PLATELET COUNT 121 K/MM3 (134-434); RBC 2.68 M/mm3 (3.60-5.2); RDW 18.3 % (11.6-15.6)
[2019-05-25 10:45] LABS: BLOOD UREA NITROGEN 58.3 mg/dL (7-18); CALCIUM 7.8 mg/dL (8.5-10.1); CREATININE 1.9 mg/dL (0.55-1.3); POTASSIUM 3.7 mmol/L (3.5-5.1)
--- NOTE | 2019-05-25 10:49 | PN ---
Progress Note (short form) - Note Progress Note: Neurology CHIEF COMPLAINT: Fever with B/L L/E edema and generalized weakness for the past 3 days HISTORY OF PRESENT ILLNESS: 68 year old female with past medical history significant for CML, Multiple Myeloma, DM and AFib. She was brought from [facility] via EMS with complaints of feeling feverish for the past few days. Upon examination she was AOx3, but appeared to be drowsy and diaphoretic, and was unable to provide a history. As per chart review, she presented to the [facility] ER on 05/18 with B/L lower extremity edema and B/L grade 4 heel ulcers. She was D/C on PO Clindamycin 800mg TID. X rays of lower extremities B/L and left foot showed evidence of osteomyelitis, and wound culture showed Pseudomonas, MRSA, and Enterococcus. Patient on Abx for possible osteomyelitis. Is also under neutropenic precautions and being followed by heme/onc. Of note, noncontrast head CT was completed and showed areas suspicious for acute to subacute infarct in the left pontine region. MRI brain completed, indicates moderate atrophy and mild to moderate chronic microvascular ischemic disease, prior reported infarct on CT no longer visualized and believed to be artifact per report. Carotid Doppler completed with small to moderate-size plaques in right commonn carotid bifuctaton without hemodynamic significant stenosis, prmoinent calcified plaques in right external artery. Moderate-size plaques in left common carotid bifurcation with 50-69% setnosis. Lower extremity MRI completed, report pending. Echocardiogram completed with severe mitral calcification and moderate tricuspid regurgitation. Patient denies any deficits and upper extremities are symmetric, limited exam of lower extremities secondary to pain but moving grossly. Active Medications Acetaminophen (Ofirmev Injection -) 1,000 mg IVPB Q6H PRN PRN Reason: FEVER Last Admin: 05/23/19 21:46 Dose: 1,000 mg Albuterol Sulfate (Ventolin Hfa Inhaler -) 1 puff IH Q8H PRN PRN Reason: SHORTNESS OF BREATH Apixaban (Eliquis -) 5 mg PO BID [facility] Last Admin: 05/25/19 09:30 Dose: 5 mg Artificial Tears (Artificial Tears) 1 drop OU QID [facility] Last Admin: 05/24/19 23:42 Dose: 1 drp Ascorbic Acid (Vitamin C -) 1,000 mg PO DAILY [facility] Last Admin: 05/25/19 09:31 Dose: 1,000 mg Bisacodyl (Dulcolax Suppository -) 10 mg RC DAILY PRN PRN Reason: CONSTIPATION Diltiazem HCl (Cardizem Cd -) 120 mg PO DAILY [facility] Last Admin: 05/25/19 09:30 Dose: 120 mg Folic Acid (Folic Acid -) 1 mg PO DAILY [facility] Last Admin: 05/25/19 09:30 Dose: 1 mg Gabapentin (Neurontin -) 100 mg PO TID [facility] Last Admin: 05/25/19 06:12 Dose: 100 mg Sodium Chloride (Normal Saline -) 1,000 mls @ 83 mls/hr IV ASDIR [facility] Last Admin: 05/24/19 22:20 Dose: 83 mls/hr Vancomycin HCl (Vancomycin (Pre-Docked)) 1,000 mg in 250 mls @ 200 mls/hr IVPB Q24H [facility]; Protocol Last Admin: 05/24/19 23:40 Dose: 200 mls/hr Piperacillin Sod/Tazobactam (Sod 2.25 gm/ Dextrose) 50 mls @ 100 mls/hr IVPB Q6H-IV [facility]; Protocol Last Admin: 05/25/19 09:28 Dose: 100 mls/hr Caspofungin 50 mg/ Sodium (Chloride) 250 mls @ 250 mls/hr IVPB Q24H [facility] Last Admin: 05/24/19 22:13 Dose: 250 mls/hr Ipratropium [place] (Atrovent 0.02% Nebulizer -) 1 amp NEB Q8H PRN PRN Reason: SHORTNESS OF BREATH Lactobacillus Acidophilus (Bacid -) 1 tab PO TID [facility] Last Admin: 05/25/19 06:12 Dose: 1 tab Levothyroxine Sodium (Synthroid -) 25 mcg PO DAILY@0630 [facility] Last Admin: 05/25/19 06:12 Dose: 25 mcg Magnesium Hydroxide (Milk Of Magnesia -) 30 ml PO DAILY PRN PRN Reason: CONSTIPATION Multivit/Ca Carb/B Cmplx/FA/Prenat (Nephro-Majo -) 1 tablet PO DAILY [facility] Last Admin: 05/25/19 09:30 Dose: 1 tablet Non-Formulary Medication (Fentanyl [Fentanyl]) 1 each TD Q72H [facility] Oxycodone HCl (Roxicodone -) 10 mg PO Q4HWA PRN PRN Reason: PAIN 6-10 Last Admin: 05/24/19 12:11 Dose: 10 mg Polyethylene Glycol (Miralax (For Daily Use) -) 17 gm PO DAILY [facility] Last Admin: 05/25/19 09:31 Dose: 17 gm Pyridoxine HCl (Vitamin B6 -) 100 mg PO DAILY [facility] Last Admin: 05/25/19 09:32 Dose: 100 mg Senna (Senna -) 1 tab PO DAILY [facility] Last Admin: 05/25/19 09:31 Dose: 1 tab Torsemide (Demadex -) 20 mg PO HS [facility] Last Admin: 05/24/19 22:21 Dose: 20 mg Valacyclovir HCl (Valtrex -) 500 mg PO BID [facility] Last Admin: 05/25/19 09:31 Dose: 500 mg PHYSICAL EXAMINATION Vital Signs Period Temp Pulse Resp BP Sys/[place]ado Pulse Ox Last 24 Hr 97.6 F-99.7 F 72-101 19-20 90-156/42-92 98 GENERAL: AOx3, drowsy and diaphoretic HEAD: Normal with no signs of trauma. LUNGS: Breath sounds equal, clear to auscultation bilaterally. No wheezes, and no crackles. No accessory muscle use. HEART: Regular rate and rhythm, normal S1 and S2 without murmur, rub or gallop. ABDOMEN: Soft, nontender, not distended, normoactive bowel sounds, no guarding, no rebound, no masses. No hepatomegaly or splenomegaly. MUSCULOSKELETAL: Normal range of motion at all joints. No bony deformities or tenderness. No CVA tenderness. UPPER EXTREMITIES: Multiple petichiae visible B/L LOWER EXTREMITIES: B/L non tender erythema below the knee with crusting and no discharge, non pitting edema, grade 4 ulcers on both heels B/L PSYCHIATRIC: Ox3 and drowsy Neuro: cranial nerves in fact, symmetric 5/5 strength in upper extremities, moves lower extremities grossly but not participating confrontation due to pain , sensory intact to light touch, not able to tolerate pinprick CBCD WBC 1.0 K/mm3 (4.0-10.0) L* 05/25/19 10:00 RBC 2.68 M/mm3 (3.60-5.2) L 05/25/19 10:00 Hgb 8.0 GM/dL (10.7-15.3) L 05/25/19 10:00 Hct 24.7 % (32.4-45.2) L D 05/25/19 10:00 MCV 92.2 fl (80-96) 05/25/19 10:00 MCHC 32.6 g/dl (32.0-36.0) 05/25/19 10:00 RDW 18.3 % (11.6-15.6) H 05/25/19 10:00 Plt Count 121 K/MM3 (134-434) L 05/25/19 10:00 MPV 9.6 fl (7.5-11.1) 05/25/19 10:00 CMP Sodium 131 mmol/L (136-145) L 05/25/19 10:00 Potassium 3.7 mmol/L (3.5-5.1) 05/25/19 10:00 Chloride 98 mmol/L (98-107) 05/25/19 10:00 Carbon Dioxide 25 mmol/L (21-32) 05/25/19 10:00 Anion Gap 8 MMOL/L (8-16) 05/25/19 10:00 BUN 58.3 mg/dL (7-18) H 05/25/19 10:00 Creatinine 1.9 mg/dL (0.55-1.3) H 05/25/19 10:00 Random Glucose 174 mg/dL (74-106) H 05/25/19 10:00 Calcium 7.8 mg/dL (8.5-10.1) L 05/25/19 10:00 Total Bilirubin 0.5 mg/dL (0.2-1) 05/23/19 05:42 AST 24 U/L (15-37) 05/23/19 05:42 ALT 25 U/L (13-61) 05/23/19 05:42 Alkaline Phosphatase 122 U/L (45-117) H 05/23/19 05:42 Total Protein 6.4 g/dl (6.4-8.2) 05/23/19 05:42 Albumin 2.0 g/dl (3.4-5.0) L 05/23/19 05:42 CARDIAC ENZYMES Creatine Kinase 104 U/L (26-192) 05/22/19 17:50 Troponin I < 0.02 ng/ml (0.00-0.05) 05/22/19 17:50 ASSESSMENT/PLAN: 68 year old female with past medical history significant for CML, Multiple Myeloma, DM and AFib. She was brought from [facility] via EMS with complaints of feeling feverish for the past few days. Upon examination she was AOx3, but appeared to be drowsy and diaphoretic, and was unable to provide a history. As per chart review, she presented to the [facility] ER on 05/18 with B/L lower extremity edema and B/L grade 4 heel ulcers. She was D/C on PO Clindamycin 800mg TID. X rays of lower extremities B/L and left foot showed evidence of osteomyelitis, and wound culture showed Pseudomonas, MRSA, and Enterococcus. Patient on Abx for possible osteomyelitis. Is also under neutropenic precautions and being followed by heme/onc. Of note, noncontrast head CT was completed and showed areas suspicious for acute to subacute infarct in the left pontine region. MRI brain completed, indicates moderate atrophy and mild to moderate chronic microvascular ischemic disease. Prior reported infarct on CT no longer visualized and believed to be artifact per report. Carotid Doppler completed with small to moderate-size plaques in right commonn carotid bifuctaton without hemodynamic significant stenosis, prmoinent calcified plaques in right external artery. Moderate-size plaques in left common carotid bifurcation with 50-69% setnosis. Lower extremity MRI completed, report pending. Echocardiogram completed with severe mitral calcification and moderate tricuspid regurgitation. Patient denies any deficits and upper extremities are symmetric, limited exam of lower extremities secondary to pain but moving grossly. Continue optimization of infectious disease. patient already on Eliquis for atrial fibrillation and I would not add additional agent as to risk for subsequent bleeding. Monitor blood pressure, maintain normotensive range. monitor glucose, maintain euglycemic range. Recommend checking LDL, consider statin if LDL greater than 100. DVT prophylaxis. Pain control as the stable.
--- NOTE | 2019-05-25 11:48 | PN ---
Progress Note, Physician History of Present Illness: patient more awake and alert having dirrhoea wbc marginally up - Current Medication List Current Medications: Active Medications Acetaminophen (Ofirmev Injection -) 1,000 mg IVPB Q6H PRN PRN Reason: FEVER Last Admin: 05/23/19 21:46 Dose: 1,000 mg Albuterol Sulfate (Ventolin Hfa Inhaler -) 1 puff IH Q8H PRN PRN Reason: SHORTNESS OF BREATH Apixaban (Eliquis -) 5 mg PO BID [facility] Last Admin: 05/25/19 09:30 Dose: 5 mg Artificial Tears (Artificial Tears) 1 drop OU QID [facility] Last Admin: 05/24/19 23:42 Dose: 1 drp Ascorbic Acid (Vitamin C -) 1,000 mg PO DAILY [facility] Last Admin: 05/25/19 09:31 Dose: 1,000 mg Bisacodyl (Dulcolax Suppository -) 10 mg RC DAILY PRN PRN Reason: CONSTIPATION Diltiazem HCl (Cardizem Cd -) 120 mg PO DAILY [facility] Last Admin: 05/25/19 09:30 Dose: 120 mg Folic Acid (Folic Acid -) 1 mg PO DAILY [facility] Last Admin: 05/25/19 09:30 Dose: 1 mg Gabapentin (Neurontin -) 100 mg PO TID [facility] Last Admin: 05/25/19 06:12 Dose: 100 mg Sodium Chloride (Normal Saline -) 1,000 mls @ 83 mls/hr IV ASDIR [facility] Last Admin: 05/24/19 22:20 Dose: 83 mls/hr Vancomycin HCl (Vancomycin (Pre-Docked)) 1,000 mg in 250 mls @ 200 mls/hr IVPB Q24H [facility]; Protocol Last Admin: 05/24/19 23:40 Dose: 200 mls/hr Piperacillin Sod/Tazobactam (Sod 2.25 gm/ Dextrose) 50 mls @ 100 mls/hr IVPB Q6H-IV [facility]; Protocol Last Admin: 05/25/19 09:28 Dose: 100 mls/hr Caspofungin 50 mg/ Sodium (Chloride) 250 mls @ 250 mls/hr IVPB Q24H [facility] Last Admin: 05/24/19 22:13 Dose: 250 mls/hr Ipratropium [place] (Atrovent 0.02% Nebulizer -) 1 amp NEB Q8H PRN PRN Reason: SHORTNESS OF BREATH Lactobacillus Acidophilus (Bacid -) 1 tab PO TID [facility] Last Admin: 05/25/19 06:12 Dose: 1 tab Levothyroxine Sodium (Synthroid -) 25 mcg PO DAILY@0630 [facility] Last Admin: 05/25/19 06:12 Dose: 25 mcg Magnesium Hydroxide (Milk Of Magnesia -) 30 ml PO DAILY PRN PRN Reason: CONSTIPATION Multivit/Ca Carb/B Cmplx/FA/Prenat (Nephro-Majo -) 1 tablet PO DAILY [facility] Last Admin: 05/25/19 09:30 Dose: 1 tablet Non-Formulary Medication (Fentanyl [Fentanyl]) 1 each TD Q72H [facility] Oxycodone HCl (Roxicodone -) 10 mg PO Q4HWA PRN PRN Reason: PAIN 6-10 Last Admin: 05/24/19 12:11 Dose: 10 mg Polyethylene Glycol (Miralax (For Daily Use) -) 17 gm PO DAILY [facility] Last Admin: 05/25/19 09:31 Dose: 17 gm Pyridoxine HCl (Vitamin B6 -) 100 mg PO DAILY [facility] Last Admin: 05/25/19 09:32 Dose: 100 mg Senna (Senna -) 1 tab PO DAILY [facility] Last Admin: 05/25/19 09:31 Dose: 1 tab Torsemide (Demadex -) 20 mg PO HS [facility] Last Admin: 05/24/19 22:21 Dose: 20 mg Valacyclovir HCl (Valtrex -) 500 mg PO BID [facility] Last Admin: 05/25/19 09:31 Dose: 500 mg - Objective Vital Signs: Vital Signs Temperature 98.7 F 05/25/19 06:45 Pulse Rate 75 05/25/19 06:45 Respiratory Rate 20 05/25/19 06:45 Blood Pressure 92/51 L 05/25/19 06:45 O2 Sat by Pulse Oximetry (%) 98 05/24/19 20:30 Constitutional: Yes: Calm, Mild Distress Cardiovascular: Yes: S1, S2 Respiratory: Yes: Regular, CTA Bilaterally Gastrointestinal: Yes: Soft, Other (dirrhoea) Musculoskeletal: Yes: WNL Extremities: Yes: Other Wound/Incision: Yes: Dressing Dry and Intact Neurological: Yes: Alert, Oriented Psychiatric: Yes: Alert, Oriented Labs: CBC, BMP 05/25/19 10:00 05/25/19 10:00 INR, PTT INR 1.67 (0.83-1.09) H 05/23/19 05:42 Assessment/Plan 68 year old female with past medical history significant for CML, Multiple Myeloma, DM and AFib. She was brought from [facility] via EMS with complaints of feeling feverish for the past few days sepsis osteo ams Pancytopenia DM dirrhoea r/o cdiff plan continue abx will send cdiff will start on oral vanco close watch rest as per the team await for mri results
[2019-05-25] MEDS: VANCOMYCIN 250 MG/5 ML ORAL SOLUTION PO SCH ×3 (13:22→23:28)
[2019-05-25 14:02] LABS: ANISOCYTOSIS 0; MACROCYTOSIS 0; PLATELET ESTIMATE DECREASED
[2019-05-25] MEDS ORDERED: ACETAMINOPHEN 325 MG TABLET (FP) PO PRN (14:25)
[2019-05-25] MEDS: oxyCODONE HCL 5 MG TABLET PO PRN ×2 (16:15→23:29)
[2019-05-25] MEDS: SODIUM CHLORIDE 1,000 ML IV SCH ×2 (16:16→23:03)
--- NOTE | 2019-05-25 19:36 | PN ---
Progress Note (short form) - Note Progress Note: Patient seen and examined c/o back pain. Getting pain meds ROS: 14 points elicited in detail and negative or as per above Last Vital Signs Temp Pulse Resp BP Pulse Ox 97.5 F L 79 20 110/58 L 98 05/25/19 18:00 05/25/19 18:00 05/25/19 18:00 05/25/19 18:00 05/25/19 09:00 HEENT: MMM Cor: RSR, No murmurs, No gallops Lungs: Clear to P&A Abd: Soft, Normal bowel sounds, No organomegaly Ext: stasis dermatitis/ulcers Neuro: Moves all extremities Psych: conversant, mood, judgement conserved 05/25/19 10:00 05/25/19 10:00 Current Medications Acetaminophen (Tylenol -) 650 mg PO Q4H PRN PRN Reason: FEVER Albuterol Sulfate (Ventolin Hfa Inhaler -) 1 puff IH Q8H PRN PRN Reason: SHORTNESS OF BREATH Apixaban (Eliquis -) 5 mg PO BID [facility] Last Admin: 05/25/19 09:30 Dose: 5 mg Artificial Tears (Artificial Tears) 1 drop OU QID [facility] Last Admin: 05/25/19 17:59 Dose: 1 drp Ascorbic Acid (Vitamin C -) 1,000 mg PO DAILY [facility] Last Admin: 05/25/19 09:31 Dose: 1,000 mg Bisacodyl (Dulcolax Suppository -) 10 mg RC DAILY PRN PRN Reason: CONSTIPATION Diltiazem HCl (Cardizem Cd -) 120 mg PO DAILY [facility] Last Admin: 05/25/19 09:30 Dose: 120 mg Folic Acid (Folic Acid -) 1 mg PO DAILY [facility] Last Admin: 05/25/19 09:30 Dose: 1 mg Gabapentin (Neurontin -) 100 mg PO TID [facility] Last Admin: 05/25/19 13:47 Dose: 100 mg Sodium Chloride (Normal Saline -) 1,000 mls @ 83 mls/hr IV ASDIR [facility] Last Admin: 05/25/19 16:16 Dose: 83 mls/hr Vancomycin HCl (Vancomycin (Pre-Docked)) 1,000 mg in 250 mls @ 200 mls/hr IVPB Q24H [facility]; Protocol Last Admin: 05/24/19 23:40 Dose: 200 mls/hr Piperacillin Sod/Tazobactam (Sod 2.25 gm/ Dextrose) 50 mls @ 100 mls/hr IVPB Q6H-IV [facility]; Protocol Last Admin: 05/25/19 16:17 Dose: 100 mls/hr Caspofungin 50 mg/ Sodium (Chloride) 250 mls @ 250 mls/hr IVPB Q24H [facility] Last Admin: 05/24/19 22:13 Dose: 250 mls/hr Ipratropium [place] (Atrovent 0.02% Nebulizer -) 1 amp NEB Q8H PRN PRN Reason: SHORTNESS OF BREATH Lactobacillus Acidophilus (Bacid -) 1 tab PO TID [facility] Last Admin: 05/25/19 13:47 Dose: 1 tab Levothyroxine Sodium (Synthroid -) 25 mcg PO DAILY@0630 [facility] Last Admin: 05/25/19 06:12 Dose: 25 mcg Magnesium Hydroxide (Milk Of Magnesia -) 30 ml PO DAILY PRN PRN Reason: CONSTIPATION Multivit/Ca Carb/B Cmplx/FA/Prenat (Nephro-Majo -) 1 tablet PO DAILY [facility] Last Admin: 05/25/19 09:30 Dose: 1 tablet Oxycodone HCl (Roxicodone -) 10 mg PO Q4HWA PRN PRN Reason: PAIN 6-10 Last Admin: 05/25/19 16:15 Dose: 10 mg Polyethylene Glycol (Miralax (For Daily Use) -) 17 gm PO DAILY [facility] Last Admin: 05/25/19 09:31 Dose: 17 gm Pyridoxine HCl (Vitamin B6 -) 100 mg PO DAILY [facility] Last Admin: 05/25/19 09:32 Dose: 100 mg Senna (Senna -) 1 tab PO DAILY [facility] Last Admin: 05/25/19 09:31 Dose: 1 tab Torsemide (Demadex -) 20 mg PO HS [facility] Last Admin: 05/24/19 22:21 Dose: 20 mg Valacyclovir HCl (Valtrex -) 500 mg PO BID [facility] Last Admin: 05/25/19 09:31 Dose: 500 mg Vancomycin HCl (Vancomycin Oral Solution) 125 mg PO Q6HPO [facility] Last Admin: 05/25/19 17:58 Dose: 125 mg A/P 68 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 cellulitis Will transfuse PRBCs for HHGb 6.9----- false + alloab screen due to interference from daratumumab . will request crossing and type matching from [facility] Kiana/taty for cellulitis neupogen support. ANC 100 hold imatinib on eliquis --monitor CBC
[2019-05-25] MEDS ORDERED: PT OWN MED DRAWER 7, Y5N ONE (19:56)
[2019-05-25] MEDS: VANCOMYCIN 1 GRAM (PRE-DOCKED) 1,000 MG/250 ML BAG IVPB SCH (20:11)
[2019-05-25] MEDS: TORSEMIDE 20 MG TABLET (FP) PO SCH (21:51)
[2019-05-25] MEDS: CASPOFUNGIN ACETATE 50 MG in SODIUM CHLORIDE 250 ML IVPB SCH (21:52)
[2019-05-26] MEDS ORDERED: PIPERACILLIN/TAZOBACTAM 2.25 GM VIAL IVPB ONE ×4 (03:26→22:02)
[2019-05-26] MEDS ORDERED: DEXTROSE 5%-WATER - 50 ML IVPB ONE ×4 (03:26→22:02)
[2019-05-26] MEDS: PIPERACILLIN/TAZOB 2.25 GM 2.25 GM in DEXTROSE 5%-WATER - 50 ML IVPB SCH ×4 (03:37→22:22)
[2019-05-26] MEDS: VANCOMYCIN 250 MG/5 ML ORAL SOLUTION PO SCH ×3 (06:12→18:11)
[2019-05-26] MEDS: GABAPENTIN 100 MG CAPSULE (FP) PO SCH ×3 (06:12→22:22)
[2019-05-26] MEDS: LACTOBACILLUS ACIDOPHILUS 1 TABLET PO SCH ×3 (06:12→22:22)
[2019-05-26] MEDS: LEVOTHYROXINE NA 25 MCG TABLET (FP) PO SCH (06:12)
[2019-05-26 06:48] LABS: BASO % 0.3 % (0-2.0); EOS % 6.1 % (0-4.5); HEMATOCRIT 23.3 % (32.4-45.2); HEMOGLOBIN 7.6 GM/dL (10.7-15.3); LYMPH % 6.5 % (8-40); MCH 30.3 pg (25.7-33.7); MCHC 32.8 g/dl (32.0-36.0); MEAN CELL VOLUME 92.3 fl (80-96); MEAN PLT VOLUME 9.8 fl (7.5-11.1); MONO % 29.8 % (3.8-10.2); NEUT % 57.3 % (42.8-82.8); PLATELET COUNT 107 K/MM3 (134-434); RBC 2.53 M/mm3 (3.60-5.2); WHITE BLOOD COUNT 1.8 K/mm3 (4.0-10.0)
[2019-05-26 07:11] LABS: CALCIUM 7.6 mg/dL (8.5-10.1); CREATININE 1.9 mg/dL (0.55-1.3); POTASSIUM 3.9 mmol/L (3.5-5.1)
--- NOTE | 2019-05-26 08:58 | PN ---
Teaching Attending Note Name of Resident: Lidia Segura ATTENDING PHYSICIAN STATEMENT I saw and evaluated the patient. I reviewed the resident's note and discussed the case with the resident. I agree with the resident's findings and plan as documented. SUBJECTIVE: Upset as not getting pain meds OBJECTIVE: Vital Signs Temperature 98.3 F 05/26/19 06:00 Pulse Rate 82 05/26/19 06:00 Respiratory Rate 20 05/26/19 06:00 Blood Pressure 123/52 L 05/26/19 06:00 O2 Sat by Pulse Oximetry (%) 100 05/26/19 08:47 Elderly F feels weak HEENT: Mm dry anemia NECK: No JVD No Bruit CHEST:Lungs CTA anteriorly CVS: S1 S2 irregular ABD: soft NT/ND Extremities B/L LE erythema, warm and tender. +lymphedema REGIONAL COORDINATOR: Non focal CBC, BMP 05/26/19 05:12 05/26/19 05:12 Active Medications Acetaminophen (Tylenol -) 650 mg PO Q4H PRN PRN Reason: FEVER Albuterol Sulfate (Ventolin Hfa Inhaler -) 1 puff IH Q8H PRN PRN Reason: SHORTNESS OF BREATH Apixaban (Eliquis -) 5 mg PO BID [facility] Last Admin: 05/25/19 21:51 Dose: 5 mg Artificial Tears (Artificial Tears) 1 drop OU QID [facility] Last Admin: 05/25/19 21:51 Dose: 1 drp Ascorbic Acid (Vitamin C -) 1,000 mg PO DAILY [facility] Last Admin: 05/25/19 09:31 Dose: 1,000 mg Bisacodyl (Dulcolax Suppository -) 10 mg RC DAILY PRN PRN Reason: CONSTIPATION Diltiazem HCl (Cardizem Cd -) 120 mg PO DAILY [facility] Last Admin: 05/25/19 09:30 Dose: 120 mg Folic Acid (Folic Acid -) 1 mg PO DAILY [facility] Last Admin: 05/25/19 09:30 Dose: 1 mg Gabapentin (Neurontin -) 100 mg PO TID [facility] Last Admin: 05/26/19 06:12 Dose: 100 mg Sodium Chloride (Normal Saline -) 1,000 mls @ 83 mls/hr IV ASDIR [facility] Last Admin: 05/25/19 23:03 Dose: Not Given Vancomycin HCl (Vancomycin (Pre-Docked)) 1,000 mg in 250 mls @ 200 mls/hr IVPB Q24H [facility]; Protocol Last Admin: 05/25/19 20:11 Dose: 200 mls/hr Piperacillin Sod/Tazobactam (Sod 2.25 gm/ Dextrose) 50 mls @ 100 mls/hr IVPB Q6H-IV [facility]; Protocol Last Admin: 05/26/19 03:37 Dose: 100 mls/hr Caspofungin 50 mg/ Sodium (Chloride) 250 mls @ 250 mls/hr IVPB Q24H [facility] Last Admin: 05/25/19 21:52 Dose: 250 mls/hr Ipratropium [place] (Atrovent 0.02% Nebulizer -) 1 amp NEB Q8H PRN PRN Reason: SHORTNESS OF BREATH Lactobacillus Acidophilus (Bacid -) 1 tab PO TID [facility] Last Admin: 05/26/19 06:12 Dose: 1 tab Levothyroxine Sodium (Synthroid -) 25 mcg PO DAILY@0630 [facility] Last Admin: 05/26/19 06:12 Dose: 25 mcg Magnesium Hydroxide (Milk Of Magnesia -) 30 ml PO DAILY PRN PRN Reason: CONSTIPATION Multivit/Ca Carb/B Cmplx/FA/Prenat (Nephro-Majo -) 1 tablet PO DAILY [facility] Last Admin: 05/25/19 09:30 Dose: 1 tablet Polyethylene Glycol (Miralax (For Daily Use) -) 17 gm PO DAILY [facility] Last Admin: 05/25/19 09:31 Dose: 17 gm Pyridoxine HCl (Vitamin B6 -) 100 mg PO DAILY [facility] Last Admin: 05/25/19 09:32 Dose: 100 mg Senna (Senna -) 1 tab PO DAILY [facility] Last Admin: 05/25/19 09:31 Dose: 1 tab Torsemide (Demadex -) 20 mg PO HS [facility] Last Admin: 05/25/19 21:51 Dose: 20 mg Valacyclovir HCl (Valtrex -) 500 mg PO BID [facility] Last Admin: 05/25/19 21:51 Dose: 500 mg Vancomycin HCl (Vancomycin Oral Solution) 125 mg PO Q6HPO [facility] Last Admin: 05/26/19 06:12 Dose: 125 mg ASSESSMENT AND PLAN: 68yo F with PMH MM, CML,T2 DM, Afib on eliquis sent from [facility] for altered mental status and found to be septic due to R heel cellulitis with suspected OM and acute/subacute CVA - Problem List - Problems (1) Cellulitis Assessment/Plan: with neutropenuia on IV abx as per ID recommendations, wound grew Polymicrobial organism Code(s): L03.90 - CELLULITIS, UNSPECIFIED Qualifiers: Site of cellulitis: extremity Site of cellulitis of extremity: lower extremity Laterality: unspecified laterality Qualified Code(s): L03.119 - Cellulitis of unspecified part of limb (2) Neutropenic fever Assessment/Plan: Cont Neutropenic precautions F/Y Hematology recommendations. Code(s): D70.9 - NEUTROPENIA, UNSPECIFIED; R50.81 - FEVER PRESENTING WITH CONDITIONS CLASSIFIED ELSEWHERE (3) A-fib Assessment/Plan: Afib on eliquis- rate controlled. cont current treatment. would cont eliquis Code(s): I48.91 - UNSPECIFIED ATRIAL FIBRILLATION Qualifiers: Atrial fibrillation type: chronic Qualified Code(s): I48.2 - Chronic atrial fibrillation (4) Sepsis Assessment/Plan: Sepsis due to B/L LE cellulitis and suspected R heel OM- tm 102.3 remains neutropenic. awaiting MRI RLE to evaluate for OM and extent of disease. on vanco /zosyn/caspofungin day 2. awaiting vanco level. podiatry to re-evaluate on monday to determine if requires debridement. [facility] surgery, podiatry adn ID on board. neutropenic precautions. 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 F/u Cx Code(s): A41.9 - SEPSIS, UNSPECIFIED ORGANISM Qualifiers: Sepsis type: sepsis due to unspecified organism Sepsis acute organ dysfunction status: unspecified Qualified Code(s): A41.9 - Sepsis, unspecified organism (5) Acute kidney injury superimposed on CKD Assessment/Plan: ASA- due to sepsis. cont wtih treating infection. renal u/s ordered. will f/u. avoid nephrotoxic meds. Code(s): N17.9 - ACUTE KIDNEY FAILURE, UNSPECIFIED; N18.9 - CHRONIC KIDNEY DISEASE, UNSPECIFIED (6) HTN (hypertension) Assessment/Plan: well controlled cont current meds Code(s): I10 - ESSENTIAL (PRIMARY) HYPERTENSION (7) T2DM (type 2 diabetes mellitus) Assessment/Plan: optimize glycemic control Code(s): E11.9 - TYPE 2 DIABETES MELLITUS WITHOUT COMPLICATIONS Qualifiers: Diabetes mellitus complication status: with neurologic complications (8) Toxic metabolic encephalopathy Assessment/Plan: Acute metabolic encephalopathy- likely due to sepsis. is lethargic, possible from pain medication vs infection. will monitor closely. frequent neurochecks Code(s): G92 - TOXIC ENCEPHALOPATHY (9) CML (chronic myelocytic leukemia) Assessment/Plan: CML- on gleevec. oncology consulted Code(s): C92.10 - CHRONIC MYELOID LEUK, BCR/ABL-POSITIVE, NOT ACHIEVE REMIS
[2019-05-26] MEDS: ARTIFICIAL TEARS (POLYVINYL ALCOHOL) OPTH DROPS OU SCH ×4 (10:19→22:27)
[2019-05-26] MEDS: FOLIC ACID 1 MG TABLET (FP) PO SCH (10:19)
[2019-05-26] MEDS: valACYclovir HCL 500 MG TABLET (FP) PO SCH ×2 (10:19→22:24)
[2019-05-26] MEDS: VITAMIN B COMP W-C 1 EA TABLET PO SCH (10:19)
[2019-05-26] MEDS: APIXABAN 5 MG TABLET PO SCH ×2 (10:19→22:22)
[2019-05-26] MEDS: ASCORBIC ACID 500 MG TABLET (FP) PO SCH (10:19)
[2019-05-26] MEDS: SENNOSIDES 8.6MG TABLET (FP) PO SCH (10:19)
[2019-05-26] MEDS: PYRIDOXINE HCL (B-6) 100 MG TABLET PO SCH (10:20)
[2019-05-26] MEDS: POLYETHYLENE GLYCOL 3350 119 GM BTL PO SCH (10:20)
--- NOTE | 2019-05-26 10:28 | PN ---
Progress Note (short form) - Note Progress Note: Podiatry F/U: Seen/evaluated at bedside NAd. Pain to right foot persistent, denies F/V/N/c/ SOB/CP. Currently afebrile. MELANI: R foot: pedal pulses nonpalpable secondary to edema, TG warm-warm. There is a plantar heel diabetic ulcer fibrotic, eschar periwound, central aspect of ulcer probes to bone, mild serous drainage, no purulence, no fluctuance, no soft tissue crepitus, no streaking cellulitis, no signs of active infection. MRI: (+) osteomyelitis right heel Blood Cx: MRSA, pending org Imp: 68 year old diabetic female with right heel diabetic ulcer and chronic osteomyelitis 1. IV abx per infectious disease 2. Continue local care. Santyl daily to heel ulcers. 3. Monitor vitals, WBCs 4. Discussed treatment options with patient. Given significant presence of chronic osteomyelitis, only operative management is BKA versus debridement with antibiotic bead placement in the calcaneus. Even with abx beads, presence of chronic osteomyelitis with deep heel ulcer givens poor prognosis for wound healing. Especially with neutropenia. I have recommended conservative management and will monitor in wound healing center. 5. Will follow Michaela Farmer DPM Problem List - Problems (1) Osteomyelitis Code(s): M86.9 - OSTEOMYELITIS, UNSPECIFIED Qualifiers: Osteomyelitis type: other acute Osteomyelitis location: multiple sites Qualified Code(s): M86.19 - Other acute osteomyelitis, multiple sites
[2019-05-26 10:33] LABS: ANISOCYTOSIS 1+; MACROCYTOSIS 1+; OVALOCYTE 1+; PLATELET ESTIMATE DECREASED
--- NOTE | 2019-05-26 10:50 | PN ---
Progress Note (short form) - Note Progress Note: Neurology CHIEF COMPLAINT: Fever with B/L L/E edema and generalized weakness for the past 3 days HISTORY OF PRESENT ILLNESS: 68 year old female with past medical history significant for CML, Multiple Myeloma, DM and AFib. She was brought from [facility] [place] via EMS with complaints of feeling feverish for the past few days. Upon examination she was AOx3, but appeared to be drowsy and diaphoretic, and was unable to provide a history. As per chart review, she presented to the [facility] ER on 05/18 with B/L lower extremity edema and B/L grade 4 heel ulcers. She was D/C on PO Clindamycin 800mg TID. X rays of lower extremities B/L and left foot showed evidence of osteomyelitis, and wound culture showed Pseudomonas, MRSA, and Enterococcus. Patient on Abx for possible osteomyelitis. Is also under neutropenic precautions and being followed by heme/onc. Of note, noncontrast head CT was completed and showed areas suspicious for acute to subacute infarct in the left pontine region. MRI brain completed, indicates moderate atrophy and mild to moderate chronic microvascular ischemic disease, prior reported infarct on CT no longer visualized and believed to be artifact per report. Carotid Doppler completed with small to moderate-size plaques in right commonn carotid bifuctaton without hemodynamic significant stenosis, prmoinent calcified plaques in right external artery. Moderate-size plaques in left common carotid bifurcation with 50-69% setnosis. Lower extremity MRI completed, extensive osteomyelitis, achillies tendosis and plantar fascilitis, moderate thinning of cartilage. Echocardiogram completed with severe mitral calcification and moderate tricuspid regurgitation. Patient denies any deficits and upper extremities are symmetric, pain limited lower extremity evaluation but does have symmetric effort. Active Medications Acetaminophen (Tylenol -) 650 mg PO Q4H PRN PRN Reason: FEVER Albuterol Sulfate (Ventolin Hfa Inhaler -) 1 puff IH Q8H PRN PRN Reason: SHORTNESS OF BREATH Apixaban (Eliquis -) 5 mg PO BID [facility] Last Admin: 05/26/19 10:19 Dose: 5 mg Artificial Tears (Artificial Tears) 1 drop OU QID [facility] Last Admin: 05/26/19 10:19 Dose: 1 drp Ascorbic Acid (Vitamin C -) 1,000 mg PO DAILY [facility] Last Admin: 05/26/19 10:19 Dose: 1,000 mg Bisacodyl (Dulcolax Suppository -) 10 mg RC DAILY PRN PRN Reason: CONSTIPATION Collagenase (Santyl -) 1 applic TP DAILY [facility]; Protocol Diltiazem HCl (Cardizem Cd -) 120 mg PO DAILY [facility] Last Admin: 05/26/19 10:19 Dose: 120 mg Folic Acid (Folic Acid -) 1 mg PO DAILY [facility] Last Admin: 05/26/19 10:19 Dose: 1 mg Gabapentin (Neurontin -) 100 mg PO TID [facility] Last Admin: 05/26/19 06:12 Dose: 100 mg Sodium Chloride (Normal Saline -) 1,000 mls @ 83 mls/hr IV ASDIR [facility] Last Admin: 05/25/19 23:03 Dose: Not Given Vancomycin HCl (Vancomycin (Pre-Docked)) 1,000 mg in 250 mls @ 200 mls/hr IVPB Q24H [facility]; Protocol Last Admin: 05/25/19 20:11 Dose: 200 mls/hr Piperacillin Sod/Tazobactam (Sod 2.25 gm/ Dextrose) 50 mls @ 100 mls/hr IVPB Q6H-IV [facility]; Protocol Last Admin: 05/26/19 10:19 Dose: 100 mls/hr Caspofungin 50 mg/ Sodium (Chloride) 250 mls @ 250 mls/hr IVPB Q24H [facility] Last Admin: 05/25/19 21:52 Dose: 250 mls/hr Ipratropium [place] (Atrovent 0.02% Nebulizer -) 1 amp NEB Q8H PRN PRN Reason: SHORTNESS OF BREATH Lactobacillus Acidophilus (Bacid -) 1 tab PO TID [facility] Last Admin: 05/26/19 06:12 Dose: 1 tab Levothyroxine Sodium (Synthroid -) 25 mcg PO DAILY@0630 [facility] Last Admin: 05/26/19 06:12 Dose: 25 mcg Magnesium Hydroxide (Milk Of Magnesia -) 30 ml PO DAILY PRN PRN Reason: CONSTIPATION Multivit/Ca Carb/B Cmplx/FA/Prenat (Nephro-Majo -) 1 tablet PO DAILY [facility] Last Admin: 05/26/19 10:19 Dose: 1 tablet Polyethylene Glycol (Miralax (For Daily Use) -) 17 gm PO DAILY [facility] Last Admin: 05/26/19 10:20 Dose: Not Given Pyridoxine HCl (Vitamin B6 -) 100 mg PO DAILY [facility] Last Admin: 05/26/19 10:20 Dose: 100 mg Senna (Senna -) 1 tab PO DAILY [facility] Last Admin: 05/26/19 10:19 Dose: Not Given Torsemide (Demadex -) 20 mg PO HS [facility] Last Admin: 05/25/19 21:51 Dose: 20 mg Valacyclovir HCl (Valtrex -) 500 mg PO BID [facility] Last Admin: 05/26/19 10:19 Dose: 500 mg Vancomycin HCl (Vancomycin Oral Solution) 125 mg PO Q6HPO [facility] Last Admin: 05/26/19 06:12 Dose: 125 mg PHYSICAL EXAMINATION Vital Signs Period Temp Pulse Resp BP Sys/Machado Pulse Ox Last 24 Hr 97.5 F-98.7 F 78-82 20-20 100-126/51-62 100-100 GENERAL: AOx3, drowsy and diaphoretic HEAD: Normal with no signs of trauma. LUNGS: Breath sounds equal, clear to auscultation bilaterally. No wheezes, and no crackles. No accessory muscle use. HEART: Regular rate and rhythm, normal S1 and S2 without murmur, rub or gallop. ABDOMEN: Soft, nontender, not distended, normoactive bowel sounds, no guarding, no rebound, no masses. No hepatomegaly or splenomegaly. MUSCULOSKELETAL: Normal range of motion at all joints. No bony deformities or tenderness. No CVA tenderness. UPPER EXTREMITIES: Multiple petichiae visible B/L LOWER EXTREMITIES: B/L non tender erythema below the knee with crusting and no discharge, non pitting edema, grade 4 ulcers on both heels B/L PSYCHIATRIC: Ox3 and drowsy Neuro: cranial nerves in fact, symmetric 5/5 strength in upper extremities, moves lower extremities grossly but not participating confrontation due to pain , sensory intact to light touch, not able to tolerate pinprick CBCD WBC 1.8 K/mm3 (4.0-10.0) L* 05/26/19 05:12 RBC 2.53 M/mm3 (3.60-5.2) L 05/26/19 05:12 Hgb 7.6 GM/dL (10.7-15.3) L 05/26/19 05:12 Hct 23.3 % (32.4-45.2) L 05/26/19 05:12 MCV 92.3 fl (80-96) 05/26/19 05:12 MCHC 32.8 g/dl (32.0-36.0) 05/26/19 05:12 RDW 18.0 % (11.6-15.6) H 05/26/19 05:12 Plt Count 107 K/MM3 (134-434) L 05/26/19 05:12 MPV 9.8 fl (7.5-11.1) 05/26/19 05:12 CMP Sodium 131 mmol/L (136-145) L 05/26/19 05:12 Potassium 3.9 mmol/L (3.5-5.1) 05/26/19 05:12 Chloride 100 mmol/L (98-107) 05/26/19 05:12 Carbon Dioxide 23 mmol/L (21-32) 05/26/19 05:12 Anion Gap 8 MMOL/L (8-16) 05/26/19 05:12 BUN 65.0 mg/dL (7-18) H 05/26/19 05:12 Creatinine 1.9 mg/dL (0.55-1.3) H 05/26/19 05:12 Calcium 7.6 mg/dL (8.5-10.1) L 05/26/19 05:12 Total Bilirubin 0.5 mg/dL (0.2-1) 05/23/19 05:42 AST 24 U/L (15-37) 05/23/19 05:42 ALT 25 U/L (13-61) 05/23/19 05:42 Alkaline Phosphatase 122 U/L (45-117) H 05/23/19 05:42 Total Protein 6.4 g/dl (6.4-8.2) 05/23/19 05:42 Albumin 2.0 g/dl (3.4-5.0) L 05/23/19 05:42 ASSESSMENT/PLAN: 68 year old female with past medical history significant for CML, Multiple Myeloma, DM and AFib. She was brought from [facility] [place] [place] via EMS with complaints of feeling feverish for the past few days. Upon examination she was AOx3, but appeared to be drowsy and diaphoretic, and was unable to provide a history. As per chart review, she presented to the [facility] ER on 05/18 with B/L lower extremity edema and B/L grade 4 heel ulcers. She was D/C on PO Clindamycin 800mg TID. X rays of lower extremities B/L and left foot showed evidence of osteomyelitis, and wound culture showed Pseudomonas, MRSA, and Enterococcus. Patient on Abx for possible osteomyelitis. Is also under neutropenic precautions and being followed by heme/onc. Of note, noncontrast head CT was completed and showed areas suspicious for acute to subacute infarct in the left pontine region. MRI brain completed, indicates moderate atrophy and mild to moderate chronic microvascular ischemic disease. Prior reported infarct on CT no longer visualized and believed to be artifact per report. Carotid Doppler completed with small to moderate-size plaques in right commonn carotid bifuctaton without hemodynamic significant stenosis, prmoinent calcified plaques in right external artery. Moderate-size plaques in left common carotid bifurcation with 50-69% setnosis. Lower extremity MRI completed, extensive osteomyelitis, achillies tendosis and plantar fascilitis, moderate thinning of cartilage. Echocardiogram completed with severe mitral calcification and moderate tricuspid regurgitation. Patient denies any deficits and upper extremities are symmetric, limited exam of lower extremities secondary to pain but moving grossly. Continue optimization of infectious disease. patient already on Eliquis for atrial fibrillation and I would not add additional agent as to risk for subsequent bleeding. Monitor blood pressure, maintain normotensive range. monitor glucose, maintain euglycemic range. Recommend checking LDL, consider statin if LDL greater than 100. DVT prophylaxis. Pain control as the stable. Neurologically stable at this time.
--- NOTE | 2019-05-26 11:36 | PN ---
Physical Exam: SUBJECTIVE: Patient seen and examined. She is in distress and reports leg pain bilaterally is 9/10. Minimal improvement in erythema of legs. Still significant swelling. She denies chest pain, abdominal pain, nausea, or vomiting. She has been tolerating food. OBJECTIVE: Vital Signs Period Temp Pulse Resp BP Sys/Machado Pulse Ox Last 24 Hr 97.5 F-98.7 F 78-82 20-20 100-126/51-62 100-100 GENERAL: The patient is awake, alert, and fully oriented, tearful and in distress. HEAD: Normal with no signs of trauma. EYES: PERRL, extraocular movements intact, sclera anicteric, conjunctiva clear. No ptosis. ENT: Ears normal, nares patent, moist mucous membranes. NECK: Trachea midline, full range of motion, supple. LUNGS: Breath sounds equal, clear to auscultation bilaterally, no wheezes, no crackles, no accessory muscle use. HEART: Regular rate and rhythm, S1, S2 without murmur, rub or gallop. ABDOMEN: Soft, nontender, nondistended, normoactive bowel sounds EXTREMITIES: 2+ pulses, warm, well-perfused, no edema, except for bilateral lower extremity erythema, +2 pitting edema with crusting on anterior aspect. Right foot plantar surface stage 4 ulcer as well as left plantar ulcer stage 3/ 4. NEUROLOGICAL: Cranial nerves II through XII grossly intact. Normal speech, gait not observed. PSYCH: Sad and in distress SKIN: Warm, dry, normal turgor, no rashes or lesions noted except as above Laboratory Results - last 24 hr 05/23/19 05/25/19 05/25/19 08:10 10:00 12:03 WBC RBC Hgb Hct MCV MCH MCHC RDW Plt Count MPV Absolute Neuts (auto) Neutrophils % Neutrophils % (Manual) 11.2 L Band Neutrophils % 3.1 Lymphocytes % Lymphocytes % (Manual) 19.4 D Monocytes % Monocytes % (Manual) 46 H Eosinophils % Eosinophils % (Manual) 16.3 H D Basophils % Basophils % (Manual) 0.0 Myelocytes % (Man) 1 Promyelocytes % (Man) 0 Blast Cells % (Manual) 0 Nucleated RBC % Metamyelocytes 1 D Hypochromia 0 Platelet Estimate Decreased Polychromasia 1+ Poikilocytosis 0 Anisocytosis 0 Microcytosis 0 Macrocytosis 0 Ovalocytes Sodium Potassium Chloride Carbon Dioxide Anion Gap BUN Creatinine Est GFR (CKD-EPI)AfAm Est GFR (CKD-EPI)NonAf POC Glucometer 200 Random Glucose Calcium Blood Type O POSITIVE Antibody Screen Positive Prewarmed Antibody Srcn Positive H Direct Antiglob Test Negative Crossmatch See Detail 05/26/19 05/26/19 05:12 05:12 WBC 1.8 L* RBC 2.53 L Hgb 7.6 L Hct 23.3 L MCV 92.3 MCH 30.3 MCHC 32.8 RDW 18.0 H Plt Count 107 L MPV 9.8 Absolute Neuts (auto) 1.0 L Neutrophils % 57.3 D Neutrophils % (Manual) 47.9 Band Neutrophils % 15.9 Lymphocytes % 6.5 L D Lymphocytes % (Manual) 7.4 L D Monocytes % 29.8 H Monocytes % (Manual) 17 H Eosinophils % 6.1 H Eosinophils % (Manual) 8.5 H Basophils % 0.3 Basophils % (Manual) 0.0 Myelocytes % (Man) 1 Promyelocytes % (Man) 0 Blast Cells % (Manual) 0 Nucleated RBC % 1 H Metamyelocytes 1 Hypochromia 0 Platelet Estimate Decreased Polychromasia 0 Poikilocytosis 0 Anisocytosis 1+ Microcytosis 1+ Macrocytosis 1+ Ovalocytes 1+ Sodium 131 L Potassium 3.9 Chloride 100 Carbon Dioxide 23 Anion Gap 8 BUN 65.0 H Creatinine 1.9 H Est GFR (CKD-EPI)AfAm 30.42 Est GFR (CKD-EPI)NonAf 26.25 POC Glucometer Random Glucose 200 H Calcium 7.6 L Blood Type Antibody Screen Prewarmed Antibody Srcn Direct Antiglob Test Crossmatch Active Medications Generic Name Dose Route Start Last Admin Trade Name Freq PRN Reason Stop Dose Admin Acetaminophen 650 mg 05/25/19 14:25 Tylenol - PO Q4H PRN FEVER Albuterol Sulfate 1 puff 05/23/19 03:12 Ventolin Hfa Inhaler - IH Q8H PRN SHORTNESS OF BREATH Apixaban 5 mg 05/23/19 10:00 05/26/19 10:19 Eliquis - PO 5 mg BID [facility] Administration Artificial Tears 1 drop 05/24/19 10:00 05/26/19 10:19 Artificial Tears OU 1 drp QID [facility] Administration Ascorbic Acid 1,000 mg 05/23/19 10:00 05/26/19 10:19 Vitamin C - PO 1,000 mg DAILY [facility] Administration Bisacodyl 10 mg 05/23/19 03:12 Dulcolax Suppository - RC DAILY PRN CONSTIPATION Collagenase 1 applic 05/26/19 10:30 Santyl - TP DAILY [facility] Protocol Diltiazem HCl 120 mg 05/23/19 10:00 05/26/19 10:19 Cardizem Cd - PO 120 mg DAILY [facility] Administration Folic Acid 1 mg 05/23/19 10:00 05/26/19 10:19 Folic Acid - PO 1 mg DAILY [facility] Administration Gabapentin 100 mg 05/23/19 06:00 05/26/19 06:12 Neurontin - PO 100 mg TID [facility] Administration Sodium Chloride 1,000 mls @ 83 mls/hr 05/22/19 20:45 05/25/19 23:03 Normal Saline - IV Not Given ASDIR [facility] Vancomycin HCl 1,000 mg in 250 mls @ 200 mls/hr 05/23/19 20:00 05/25/19 20:11 Vancomycin (Pre-Docked) IVPB 200 mls/hr Q24H [facility] Administration Protocol Piperacillin Sod/Tazobactam 50 mls @ 100 mls/hr 05/23/19 15:00 05/26/19 10:19 Sod 2.25 gm/ Dextrose IVPB 100 mls/hr Q6H-IV [facility] Administration Protocol Caspofungin 50 mg/ Sodium 250 mls @ 250 mls/hr 05/24/19 20:00 05/25/19 21:52 Chloride IVPB 250 mls/hr Q24H [facility] Administration Ipratropium [place] 1 amp 05/23/19 03:12 Atrovent 0.02% Nebulizer - NEB Q8H PRN SHORTNESS OF BREATH Lactobacillus Acidophilus 1 tab 05/23/19 06:00 05/26/19 06:12 Bacid - PO 1 tab TID [facility] Administration Levothyroxine Sodium 25 mcg 05/23/19 06:30 05/26/19 06:12 Synthroid - PO 25 mcg DAILY@0630 [facility] Administration Magnesium Hydroxide 30 ml 05/24/19 07:07 Milk Of Magnesia - PO DAILY PRN CONSTIPATION Multivit/Ca Carb/B Cmplx/FA/Prenat 1 tablet 05/23/19 10:00 05/26/19 10:19 Nephro-Majo - PO 1 tablet DAILY [facility] Administration Oxycodone HCl 10 mg 05/26/19 11:09 Roxicodone - PO Q4H PRN PAIN LEVEL 6-10 Polyethylene Glycol 17 gm 05/23/19 10:00 05/26/19 10:20 Miralax (For Daily Use) - PO Not Given DAILY [facility] Pyridoxine HCl 100 mg 05/23/19 10:00 05/26/19 10:20 Vitamin B6 - PO 100 mg DAILY [facility] Administration Senna 1 tab 05/23/19 10:00 05/26/19 10:19 Senna - PO Not Given DAILY [facility] Torsemide 20 mg 05/23/19 22:00 05/25/19 21:51 Demadex - PO 20 mg HS [facility] Administration Valacyclovir HCl 500 mg 05/23/19 10:00 05/26/19 10:19 Valtrex - PO 500 mg BID [facility] Administration Vancomycin HCl 125 mg 05/25/19 12:00 05/26/19 06:12 Vancomycin Oral Solution PO 125 mg Q6HPO [facility] Administration ASSESSMENT/PLAN: Ms. 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 She was brought from [facility] ([place], [place]) via EMS with complaints of feeling feverish for the past few days. #sepsis 2/2 bilateral LE cellulitis and right foot osteomyelitis WBC 1.8 with ANC 1.0. Temp 101.4 at admission. MRI on 05/24/19 right foot showed significant cellulitis and osteomyelitis of calcaneus with no tendon/ ligamentous tears. Wound culture positive Proteus mirabilis, Enterococcus, Pseudomonas, Enterobacter, MRSA. Blood cx MRSA. Urine cx negative. LA normal. -Zosyn day 4 -Vancomycin day 4 (vanc level yesterday 21.2) -caspofungin day 3 -tylenol -oxycodone 10mg Q4H PRN -neurontin -Santyl to ulcers -wound care -ID consulted- continue abx -vascular consulted -podiatry following- wound care vs BKA--unlikely given co-mobidities #acute metabolic encephalopathy Likely from sepsis. CT initially suspected acute infarct. -MRI brain showed no acute changes. CT findings likely artifact. Diffuse microischemic changes. -neuro following -stroke workup initiated at admission- carotid doppler left common carotid bifurcation 50-69% stenosis; speech and swallow eval- soft diet; echo- LA mildly dilated, RV pressure elevated at >60, severe mitral annular calcification , moderate TR, mild , EF not calculated, technically difficult study #anemia of chronic disease Hb 6.4-->7.6. PRBCs were ordered yesterday but type and screen showed Ab incompatibility, which is likely from daratumumab. Pt may receive PRBCs if Hb is < 7. -monitor CBC -heme- hold imatinib, will request type and cross by [facility] #pancytopenia hx of CML/MM -neupogen -heme/onc #ASA Cr 1.4. Renal U/S right nephrolithiasis without hydronephrosis. -gentle hydration #a-fib Echo- LA mildly dilated, RV pressure elevated at >60, severe mitral annular calcification, moderate TR, mild , EF not calculated, technically difficult study -Eliquis 5mg BID -diltiazem 120mg daily #DM HbA1c 6.0 -BGM -SSI as needed #HTN -torsemide #COPD -albuterol -atrovent #HLD #hypothyroidism -Synthroid 25mcg daily #chronic constipation -colace -miralax -senna -dulcolax -milk of magnesia FEN NS 83mL/hr monitor diabetic/Na controlled diet DVT Ppx Eliquis Visit type - Emergency Visit Emergency Visit: Yes ED Registration Date: 05/22/19 Care time: The patient presented to the Emergency Department on the above date and was hospitalized for further evaluation of their emergent condition. - New Patient This patient is new to me today: No - Critical Care Critical Care patient: No - Discharge Referral Referred to [facility] No ATTENDING PHYSICIAN STATEMENT I saw and evaluated the patient. I reviewed the resident's note and discussed the case with the resident. I agree with the resident's findings and plan as documented. SUBJECTIVE: OBJECTIVE: ASSESSMENT AND PLAN:
[2019-05-26] MEDS: oxyCODONE HCL 5 MG TABLET PO PRN ×3 (11:43→22:30)
[2019-05-26] MEDS: COLLAGENASE CLOSTRIDIUM HIST. 30 GRAMS TUBE TP SCH (11:43)
--- NOTE | 2019-05-26 12:28 | PN ---
Progress Note, Physician History of Present Illness: She is in distress and reports leg pain bilaterally is 9/10. Minimal improvement in erythema of legs. Still significant swelling. She denies chest pain, abdominal pain, nausea, or vomiting. She has been tolerating food. - Current Medication List Current Medications: Active Medications Acetaminophen (Tylenol -) 650 mg PO Q4H PRN PRN Reason: FEVER Albuterol Sulfate (Ventolin Hfa Inhaler -) 1 puff IH Q8H PRN PRN Reason: SHORTNESS OF BREATH Apixaban (Eliquis -) 5 mg PO BID [facility] Last Admin: 05/26/19 10:19 Dose: 5 mg Artificial Tears (Artificial Tears) 1 drop OU QID [facility] Last Admin: 05/26/19 10:19 Dose: 1 drp Ascorbic Acid (Vitamin C -) 1,000 mg PO DAILY [facility] Last Admin: 05/26/19 10:19 Dose: 1,000 mg Bisacodyl (Dulcolax Suppository -) 10 mg RC DAILY PRN PRN Reason: CONSTIPATION Collagenase (Santyl -) 1 applic TP DAILY [facility]; Protocol Last Admin: 05/26/19 11:43 Dose: 1 applic Diltiazem HCl (Cardizem Cd -) 120 mg PO DAILY [facility] Last Admin: 05/26/19 10:19 Dose: 120 mg Folic Acid (Folic Acid -) 1 mg PO DAILY [facility] Last Admin: 05/26/19 10:19 Dose: 1 mg Gabapentin (Neurontin -) 100 mg PO TID [facility] Last Admin: 05/26/19 06:12 Dose: 100 mg Sodium Chloride (Normal Saline -) 1,000 mls @ 83 mls/hr IV ASDIR [facility] Last Admin: 05/25/19 23:03 Dose: Not Given Vancomycin HCl (Vancomycin (Pre-Docked)) 1,000 mg in 250 mls @ 200 mls/hr IVPB Q24H [facility]; Protocol Last Admin: 05/25/19 20:11 Dose: 200 mls/hr Piperacillin Sod/Tazobactam (Sod 2.25 gm/ Dextrose) 50 mls @ 100 mls/hr IVPB Q6H-IV [facility]; Protocol Last Admin: 05/26/19 10:19 Dose: 100 mls/hr Caspofungin 50 mg/ Sodium (Chloride) 250 mls @ 250 mls/hr IVPB Q24H [facility] Last Admin: 05/25/19 21:52 Dose: 250 mls/hr Ipratropium [place] (Atrovent 0.02% Nebulizer -) 1 amp NEB Q8H PRN PRN Reason: SHORTNESS OF BREATH Lactobacillus Acidophilus (Bacid -) 1 tab PO TID [facility] Last Admin: 05/26/19 06:12 Dose: 1 tab Levothyroxine Sodium (Synthroid -) 25 mcg PO DAILY@0630 [facility] Last Admin: 05/26/19 06:12 Dose: 25 mcg Magnesium Hydroxide (Milk Of Magnesia -) 30 ml PO DAILY PRN PRN Reason: CONSTIPATION Multivit/Ca Carb/B Cmplx/FA/Prenat (Nephro-Majo -) 1 tablet PO DAILY [facility] Last Admin: 05/26/19 10:19 Dose: 1 tablet Oxycodone HCl (Roxicodone -) 10 mg PO Q4H PRN PRN Reason: PAIN LEVEL 6-10 Last Admin: 05/26/19 11:43 Dose: 10 mg Polyethylene Glycol (Miralax (For Daily Use) -) 17 gm PO DAILY [facility] Last Admin: 05/26/19 10:20 Dose: Not Given Pyridoxine HCl (Vitamin B6 -) 100 mg PO DAILY [facility] Last Admin: 05/26/19 10:20 Dose: 100 mg Senna (Senna -) 1 tab PO DAILY [facility] Last Admin: 05/26/19 10:19 Dose: Not Given Torsemide (Demadex -) 20 mg PO HS [facility] Last Admin: 05/25/19 21:51 Dose: 20 mg Valacyclovir HCl (Valtrex -) 500 mg PO BID [facility] Last Admin: 05/26/19 10:19 Dose: 500 mg Vancomycin HCl (Vancomycin Oral Solution) 125 mg PO Q6HPO [facility] Last Admin: 05/26/19 06:12 Dose: 125 mg - Objective Vital Signs: Vital Signs Temperature 98.3 F 05/26/19 06:00 Pulse Rate 77 05/26/19 10:00 Respiratory Rate 18 05/26/19 10:00 Blood Pressure 128/72 05/26/19 10:00 O2 Sat by Pulse Oximetry (%) 100 05/26/19 08:47 Constitutional: Yes: No Distress, Calm Cardiovascular: Yes: S1, S2 Respiratory: Yes: Regular, Poor Air Entry Gastrointestinal: Yes: Normal Bowel Sounds, Soft Musculoskeletal: Yes: Other Extremities: Yes: Other Wound/Incision: Yes: Dressing Dry and Intact Neurological: Yes: Alert, Oriented Psychiatric: Yes: Alert, Oriented Labs: CBC, BMP 05/26/19 05:12 05/26/19 05:12 INR, PTT INR 1.67 (0.83-1.09) H 05/23/19 05:42 Assessment/Plan 68 year old female with past medical history significant for CML, Multiple Myeloma, DM and AFib. She was brought from [facility] via EMS with complaints of feeling feverish for the past few days sepsis osteo ams Pancytopenia DM dirrhoea plan continue abx monitor vanco levels await for all results wound care rest as per the team
[2019-05-26] MEDS ORDERED: PT OWN MED DRAWER 7, Y5N ONE ×3 (12:45→22:43)
--- NOTE | 2019-05-26 16:05 | PN ---
Progress Note (short form) - Note Progress Note: Patient seen and examined Much better today. Voices no complaints other than mild pain in the bottom of her feet ROS: 14 points elicited in detail and negative or as per above Last Vital Signs Temp Pulse Resp BP Pulse Ox 98.7 F 70 20 110/56 L 100 05/26/19 14:00 05/26/19 14:00 05/26/19 14:00 05/26/19 14:00 05/26/19 08:47 HEENT: MMM Cor: RSR, No murmurs, No gallops Lungs: Clear to P&A Abd: Soft, Normal bowel sounds, No organomegaly Ext: stasis dermatitis/ulcers Neuro: Moves all extremities Psych: conversant, mood, judgement conserved 05/26/19 05:12 05/26/19 05:12 Current Medications Acetaminophen (Tylenol -) 650 mg PO Q4H PRN PRN Reason: FEVER Albuterol Sulfate (Ventolin Hfa Inhaler -) 1 puff IH Q8H PRN PRN Reason: SHORTNESS OF BREATH Apixaban (Eliquis -) 5 mg PO BID [facility] Last Admin: 05/26/19 10:19 Dose: 5 mg Artificial Tears (Artificial Tears) 1 drop OU QID [facility] Last Admin: 05/26/19 15:01 Dose: 1 drp Ascorbic Acid (Vitamin C -) 1,000 mg PO DAILY [facility] Last Admin: 05/26/19 10:19 Dose: 1,000 mg Bisacodyl (Dulcolax Suppository -) 10 mg RC DAILY PRN PRN Reason: CONSTIPATION Collagenase (Santyl -) 1 applic TP DAILY [facility]; Protocol Last Admin: 05/26/19 11:43 Dose: 1 applic Diltiazem HCl (Cardizem Cd -) 120 mg PO DAILY [facility] Last Admin: 05/26/19 10:19 Dose: 120 mg Folic Acid (Folic Acid -) 1 mg PO DAILY [facility] Last Admin: 05/26/19 10:19 Dose: 1 mg Gabapentin (Neurontin -) 100 mg PO TID [facility] Last Admin: 05/26/19 15:02 Dose: 100 mg Sodium Chloride (Normal Saline -) 1,000 mls @ 83 mls/hr IV ASDIR [facility] Last Admin: 05/25/19 23:03 Dose: Not Given Vancomycin HCl (Vancomycin (Pre-Docked)) 1,000 mg in 250 mls @ 200 mls/hr IVPB Q24H [facility]; Protocol Last Admin: 05/25/19 20:11 Dose: 200 mls/hr Piperacillin Sod/Tazobactam (Sod 2.25 gm/ Dextrose) 50 mls @ 100 mls/hr IVPB Q6H-IV [facility]; Protocol Last Admin: 05/26/19 15:02 Dose: 100 mls/hr Caspofungin 50 mg/ Sodium (Chloride) 250 mls @ 250 mls/hr IVPB Q24H [facility] Last Admin: 05/25/19 21:52 Dose: 250 mls/hr Ipratropium [place] (Atrovent 0.02% Nebulizer -) 1 amp NEB Q8H PRN PRN Reason: SHORTNESS OF BREATH Lactobacillus Acidophilus (Bacid -) 1 tab PO TID [facility] Last Admin: 05/26/19 15:02 Dose: 1 tab Levothyroxine Sodium (Synthroid -) 25 mcg PO DAILY@0630 [facility] Last Admin: 05/26/19 06:12 Dose: 25 mcg Magnesium Hydroxide (Milk Of Magnesia -) 30 ml PO DAILY PRN PRN Reason: CONSTIPATION Multivit/Ca Carb/B Cmplx/FA/Prenat (Nephro-Majo -) 1 tablet PO DAILY [facility] Last Admin: 05/26/19 10:19 Dose: 1 tablet Oxycodone HCl (Roxicodone -) 10 mg PO Q4H PRN PRN Reason: PAIN LEVEL 6-10 Last Admin: 05/26/19 11:43 Dose: 10 mg Polyethylene Glycol (Miralax (For Daily Use) -) 17 gm PO DAILY [facility] Last Admin: 05/26/19 10:20 Dose: Not Given Pyridoxine HCl (Vitamin B6 -) 100 mg PO DAILY [facility] Last Admin: 05/26/19 10:20 Dose: 100 mg Senna (Senna -) 1 tab PO DAILY [facility] Last Admin: 05/26/19 10:19 Dose: Not Given Torsemide (Demadex -) 20 mg PO HS [facility] Last Admin: 05/25/19 21:51 Dose: 20 mg Valacyclovir HCl (Valtrex -) 500 mg PO BID [facility] Last Admin: 05/26/19 10:19 Dose: 500 mg Vancomycin HCl (Vancomycin Oral Solution) 125 mg PO Q6HPO [facility] Last Admin: 05/26/19 12:49 Dose: 125 mg A/P 68 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 cellulitis Will transfuse PRBCs for HHGb 6.9----- false + alloab screen due to interference from daratumumab . will request crossing and type matching from [facility] for cellulitis neupogen support. ANC 1000 today. continue until sustained improvement. heme will follow. hold imatinib on eliquis --monitor CBC
[2019-05-26] MEDS: TORSEMIDE 20 MG TABLET (FP) PO SCH (22:22)
[2019-05-26] MEDS: VANCOMYCIN 1 GRAM (PRE-DOCKED) 1,000 MG/250 ML BAG IVPB SCH (22:23)
[2019-05-26] MEDS: SODIUM CHLORIDE 1,000 ML IV SCH (22:23)
[2019-05-26] MEDS: CASPOFUNGIN ACETATE 50 MG in SODIUM CHLORIDE 250 ML IVPB SCH (22:24)
[2019-05-27] MEDS: VANCOMYCIN 250 MG/5 ML ORAL SOLUTION PO SCH ×4 (02:14→17:26)
[2019-05-27] MEDS ORDERED: DEXTROSE 5%-WATER - 50 ML IVPB ONE ×4 (02:53→21:58)
[2019-05-27] MEDS ORDERED: PIPERACILLIN/TAZOBACTAM 2.25 GM VIAL IVPB ONE ×4 (02:53→21:58)
[2019-05-27] MEDS: PIPERACILLIN/TAZOB 2.25 GM 2.25 GM in DEXTROSE 5%-WATER - 50 ML IVPB SCH ×3 (03:07→15:15)
[2019-05-27] MEDS: GABAPENTIN 100 MG CAPSULE (FP) PO SCH ×3 (06:33→23:12)
[2019-05-27] MEDS: LACTOBACILLUS ACIDOPHILUS 1 TABLET PO SCH ×3 (06:33→23:12)
[2019-05-27] MEDS: LEVOTHYROXINE NA 25 MCG TABLET (FP) PO SCH (06:33)
[2019-05-27 06:38] LABS: BASO % 0.2 % (0-2.0); EOS % 2.7 % (0-4.5); HEMOGLOBIN 7.6 GM/dL (10.7-15.3); MCH 30.3 pg (25.7-33.7); MCHC 32.9 g/dl (32.0-36.0); MEAN CELL VOLUME 91.9 fl (80-96); MEAN PLT VOLUME 9.7 fl (7.5-11.1); MONO % 16.5 % (3.8-10.2); NEUT % 75.6 % (42.8-82.8); PLATELET COUNT 130 K/MM3 (134-434); RDW 18.3 % (11.6-15.6); WHITE BLOOD COUNT 6.6 K/mm3 (4.0-10.0)
[2019-05-27 06:51] LABS: CALCIUM 7.8 mg/dL (8.5-10.1); CREATININE 1.8 mg/dL (0.55-1.3); POTASSIUM 3.9 mmol/L (3.5-5.1)
--- NOTE | 2019-05-27 07:59 | PN ---
Physical Exam: SUBJECTIVE: Patient seen and examined. She is in mild distress and reports leg pain bilaterally that improves with medication. Minimal improvement in erythema of legs. Still significant swelling. She denies chest pain, abdominal pain, nausea, or vomiting. She has been tolerating food. She reports feeling dehydrated but is tolerating PO and is on IV fluids. She has been scratching her right shoulder and back. OBJECTIVE: Vital Signs Period Temp Pulse Resp BP Sys/Machado Pulse Ox Last 24 Hr 97.4 F-98.9 F 70-86 18-20 106-128/49-72 100-100 GENERAL: The patient is awake, alert, and fully oriented, tearful and in distress. HEAD: Normal with no signs of trauma. EYES: PERRL, extraocular movements intact, sclera anicteric, conjunctiva clear. No ptosis. ENT: Ears normal, nares patent, moist mucous membranes. NECK: Trachea midline, full range of motion, supple. LUNGS: Breath sounds equal, clear to auscultation bilaterally, no wheezes, no crackles, no accessory muscle use. HEART: Regular rate and rhythm, S1, S2 without murmur, rub or gallop. ABDOMEN: Soft, nontender, nondistended, normoactive bowel sounds EXTREMITIES: 2+ pulses, warm, well-perfused, no edema, except for bilateral lower extremity erythema, +2 pitting edema with crusting on anterior aspect. Right foot plantar surface stage 4 ulcer as well as left plantar ulcer stage 3/ 4. NEUROLOGICAL: Cranial nerves II through XII grossly intact. Normal speech, gait not observed. PSYCH: Sad and in distress SKIN: Warm, dry with some scratches and bleeding on right shoulder and upper back, normal turgor, no rashes or lesions noted except as above Laboratory Results - last 24 hr 05/23/19 05/26/19 05/26/19 08:10 05:12 11:39 WBC RBC Hgb Hct MCV MCH MCHC RDW Plt Count MPV Absolute Neuts (auto) Neutrophils % Neutrophils % (Manual) 47.9 Band Neutrophils % 15.9 Lymphocytes % Lymphocytes % (Manual) 7.4 L D Monocytes % Monocytes % (Manual) 17 H Eosinophils % Eosinophils % (Manual) 8.5 H Basophils % Basophils % (Manual) 0.0 Myelocytes % (Man) 1 Promyelocytes % (Man) 0 Blast Cells % (Manual) 0 Nucleated RBC % Metamyelocytes 1 Hypochromia 0 Platelet Estimate Decreased Polychromasia 0 Poikilocytosis 0 Anisocytosis 1+ Microcytosis 1+ Macrocytosis 1+ Ovalocytes 1+ Sodium Potassium Chloride Carbon Dioxide Anion Gap BUN Creatinine Est GFR (CKD-EPI)AfAm Est GFR (CKD-EPI)NonAf POC Glucometer 264 Random Glucose Calcium Crossmatch See Detail 05/27/19 05/27/19 05:00 05:00 WBC 6.6 RBC 2.50 L Hgb 7.6 L Hct 23.0 L MCV 91.9 MCH 30.3 MCHC 32.9 RDW 18.3 H Plt Count 130 L D MPV 9.7 Absolute Neuts (auto) 5.0 Neutrophils % 75.6 D Neutrophils % (Manual) Band Neutrophils % Lymphocytes % 5.0 L D Lymphocytes % (Manual) Monocytes % 16.5 H Monocytes % (Manual) Eosinophils % 2.7 Eosinophils % (Manual) Basophils % 0.2 Basophils % (Manual) Myelocytes % (Man) Promyelocytes % (Man) Blast Cells % (Manual) Nucleated RBC % 0 Metamyelocytes Hypochromia Platelet Estimate Polychromasia Poikilocytosis Anisocytosis Microcytosis Macrocytosis Ovalocytes Sodium 133 L Potassium 3.9 Chloride 100 Carbon Dioxide 23 Anion Gap 10 BUN 64.0 H Creatinine 1.8 H Est GFR (CKD-EPI)AfAm 32.48 Est GFR (CKD-EPI)NonAf 28.02 POC Glucometer Random Glucose 184 H Calcium 7.8 L Crossmatch Active Medications Generic Name Dose Route Start Last Admin Trade Name Freq PRN Reason Stop Dose Admin Acetaminophen 650 mg 05/25/19 14:25 Tylenol - PO Q4H PRN FEVER Albuterol Sulfate 1 puff 05/23/19 03:12 Ventolin Hfa Inhaler - IH Q8H PRN SHORTNESS OF BREATH Apixaban 5 mg 05/23/19 10:00 05/26/19 22:22 Eliquis - PO 5 mg BID [facility] Administration Artificial Tears 1 drop 05/24/19 10:00 05/26/19 22:27 Artificial Tears OU 1 drp QID [facility] Administration Ascorbic Acid 1,000 mg 05/23/19 10:00 05/26/19 10:19 Vitamin C - PO 1,000 mg DAILY [facility] Administration Bisacodyl 10 mg 05/23/19 03:12 Dulcolax Suppository - RC DAILY PRN CONSTIPATION Collagenase 1 applic 05/26/19 10:30 05/26/19 11:43 Santyl - TP 1 applic DAILY [facility] Administration Protocol Diltiazem HCl 120 mg 05/23/19 10:00 05/26/19 10:19 Cardizem Cd - PO 120 mg DAILY [facility] Administration Folic Acid 1 mg 05/23/19 10:00 05/26/19 10:19 Folic Acid - PO 1 mg DAILY [facility] Administration Gabapentin 100 mg 05/23/19 06:00 05/27/19 06:33 Neurontin - PO 100 mg TID [facility] Administration Sodium Chloride 1,000 mls @ 83 mls/hr 05/22/19 20:45 05/26/19 22:23 Normal Saline - IV 83 mls/hr ASDIR [facility] Administration Vancomycin HCl 1,000 mg in 250 mls @ 200 mls/hr 05/23/19 20:00 05/26/19 22:23 Vancomycin (Pre-Docked) IVPB 200 mls/hr Q24H [facility] Administration Protocol Piperacillin Sod/Tazobactam 50 mls @ 100 mls/hr 05/23/19 15:00 05/27/19 03:07 Sod 2.25 gm/ Dextrose IVPB 100 mls/hr Q6H-IV [facility] Administration Protocol Caspofungin 50 mg/ Sodium 250 mls @ 250 mls/hr 05/24/19 20:00 05/26/19 22:24 Chloride IVPB 250 mls/hr Q24H [facility] Administration Ipratropium [place] 1 amp 05/23/19 03:12 Atrovent 0.02% Nebulizer - NEB Q8H PRN SHORTNESS OF BREATH Lactobacillus Acidophilus 1 tab 05/23/19 06:00 05/27/19 06:33 Bacid - PO 1 tab TID [facility] Administration Levothyroxine Sodium 25 mcg 05/23/19 06:30 05/27/19 06:33 Synthroid - PO 25 mcg DAILY@0630 [facility] Administration Magnesium Hydroxide 30 ml 05/24/19 07:07 Milk Of Magnesia - PO DAILY PRN CONSTIPATION Multivit/Ca Carb/B Cmplx/FA/Prenat 1 tablet 05/23/19 10:00 05/26/19 10:19 Nephro-Majo - PO 1 tablet DAILY [facility] Administration Oxycodone HCl 10 mg 05/26/19 11:09 05/26/19 22:30 Roxicodone - PO 10 mg Q4H PRN Administration PAIN LEVEL 6-10 Polyethylene Glycol 17 gm 05/23/19 10:00 05/26/19 10:20 Miralax (For Daily Use) - PO Not Given DAILY [facility] Pyridoxine HCl 100 mg 05/23/19 10:00 05/26/19 10:20 Vitamin B6 - PO 100 mg DAILY [facility] Administration Senna 1 tab 05/23/19 10:00 05/26/19 10:19 Senna - PO Not Given DAILY [facility] Torsemide 20 mg 05/23/19 22:00 05/26/19 22:22 Demadex - PO 20 mg HS [facility] Administration Valacyclovir HCl 500 mg 05/23/19 10:00 05/26/19 22:24 Valtrex - PO 500 mg BID [facility] Administration Vancomycin HCl 125 mg 05/25/19 12:00 05/27/19 06:33 Vancomycin Oral Solution PO 125 mg Q6HPO [facility] Administration ASSESSMENT/PLAN: Ms. 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 She was brought from [facility] via EMS with complaints of feeling feverish for the past few days. #sepsis 2/2 bilateral LE cellulitis and right foot osteomyelitis WBC 1.8 with ANC 1.0. Temp 101.4 at admission. MRI on 05/24/19 right foot showed significant cellulitis and osteomyelitis of calcaneus with no tendon/ ligamentous tears. Wound culture positive Proteus mirabilis, Enterococcus, Pseudomonas, Enterobacter, MRSA. Blood cx MRSA. Urine cx negative. LA normal. -Zosyn day 5 -Vancomycin day 5 (vanc level 05/25/19 was 21.2) -caspofungin day 4 -tylenol -oxycodone 10mg Q4H PRN -neurontin -wound care-Santyl -ID consulted- continue abx -vascular consulted -podiatry following- wound care vs BKA--unlikely given co-mobidities #acute metabolic encephalopathy Likely from sepsis. CT initially suspected acute infarct. MRI brain showed no acute changes. CT findings likely artifact. Diffuse microischemic changes. -neuro following -stroke workup initiated at admission- carotid doppler left common carotid bifurcation 50-69% stenosis; echo- LA mildly dilated, RV pressure elevated at > 60, severe mitral annular calcification, moderate TR, mild , EF not calculated , technically difficult study #anemia of chronic disease Hb 7.6 s/p PRBCs -heme- hold imatinib #pancytopenia hx of CML/MM -neupogen -heme/onc #ASA Cr 1.9. Renal U/S right nephrolithiasis without hydronephrosis. -gentle hydration #a-fib Echo- LA mildly dilated, RV pressure elevated at >60, severe mitral annular calcification, moderate TR, mild , EF not calculated, technically difficult study -Eliquis 5mg BID -diltiazem 120mg daily #DM HbA1c 6.0 -BGM -SSI #HTN -torsemide #COPD -albuterol -atrovent #HLD #hypothyroidism -Synthroid 25mcg daily #chronic constipation -bowel regimen FEN NS 83mL/hr monitor diabetic/Na controlled diet DVT Ppx Eliquis Visit type - Emergency Visit Emergency Visit: Yes ED Registration Date: 05/22/19 Care time: The patient presented to the Emergency Department on the above date and was hospitalized for further evaluation of their emergent condition. - New Patient This patient is new to me today: No - Critical Care Critical Care patient: No - Discharge Referral Referred to [facility] Med P.C.: No ATTENDING PHYSICIAN STATEMENT I saw and evaluated the patient. I reviewed the resident's note and discussed the case with the resident. I agree with the resident's findings and plan as documented. SUBJECTIVE: OBJECTIVE: ASSESSMENT AND PLAN:
[2019-05-27] MEDS ORDERED: PT OWN MED DRAWER 7, Y5N ONE (09:38)
[2019-05-27] MEDS: oxyCODONE HCL 5 MG TABLET PO PRN ×2 (09:53→17:25)
[2019-05-27] MEDS: VITAMIN B COMP W-C 1 EA TABLET PO SCH (09:55)
[2019-05-27] MEDS: valACYclovir HCL 500 MG TABLET (FP) PO SCH ×2 (09:55→23:12)
[2019-05-27] MEDS: FOLIC ACID 1 MG TABLET (FP) PO SCH (09:55)
[2019-05-27] MEDS: ASCORBIC ACID 500 MG TABLET (FP) PO SCH (09:55)
[2019-05-27] MEDS: SENNOSIDES 8.6MG TABLET (FP) PO SCH (09:56)
[2019-05-27] MEDS: PYRIDOXINE HCL (B-6) 100 MG TABLET PO SCH (09:56)
[2019-05-27] MEDS: APIXABAN 5 MG TABLET PO SCH ×2 (09:56→23:12)
[2019-05-27] MEDS: ARTIFICIAL TEARS (POLYVINYL ALCOHOL) OPTH DROPS OU SCH ×3 (10:03→18:57)
[2019-05-27] MEDS: COLLAGENASE CLOSTRIDIUM HIST. 30 GRAMS TUBE TP SCH (10:03)
[2019-05-27 11:06] LABS: ANISOCYTOSIS 1+; MACROCYTOSIS 0; PLATELET ESTIMATE DECREASED
[2019-05-27] MEDS: POLYETHYLENE GLYCOL 3350 119 GM BTL PO SCH (12:01)
--- NOTE | 2019-05-27 12:42 | PN ---
Progress Note (short form) - Note Progress Note: Podiatry F/U: Seen/evaluated at bedside, NAD, denies F/V/N/C/SOB/CP. Afebrile. Feeling a bit better. MELANI: R foot: pedal pulses nonpalpable, TG wnl, CFT brisk to toes. There is a plantar heel diabetic ulcer fibrotic base, central aspect probes to bone, (+) serous drainage, no purulence, no fluctuance, no streaking cellulitis, no signs of acute infection WBC: 6.6 MRI: (+) osteomyelitis right heel Imp: 68 year old diabetic female with right heel diabetic ulcer and osteomyelitis 1. IV abx per ID 2. Continue santyl for local wound care 3. Discussed treatment options with patient. Only operative treatment from podiatric standpoint would be implantation of abx beads in the calcaneus. Together with IV abx may be able to suppress infection. Will need clearance ( Heme) prior to procedure. 4. Will follow Michaela Farmer DPM Problem List - Problems (1) Osteomyelitis Code(s): M86.9 - OSTEOMYELITIS, UNSPECIFIED Qualifiers: Osteomyelitis type: other acute Osteomyelitis location: multiple sites Qualified Code(s): M86.19 - Other acute osteomyelitis, multiple sites
[2019-05-27] MEDS ORDERED: SODIUM CHLORIDE NASAL SPRAY 44 ML BOTTLE NS PRN (13:25)
--- NOTE | 2019-05-27 14:28 | PN ---
Teaching Attending Note Name of Resident: Lidia Segura ATTENDING PHYSICIAN STATEMENT I saw and evaluated the patient. I reviewed the resident's note and discussed the case with the resident. I agree with the resident's findings and plan as documented. SUBJECTIVE: Patient has no complaints today. OBJECTIVE: Vital Signs Period Temp Pulse Resp BP Sys/Machado Pulse Ox Last 24 Hr 97.4 F-98.9 F 71-86 18-20 106-124/49-59 98-100 HEART: S1S2, RRR LUNGS: Clear ABDOMEN: Obese, soft, non-tender, non-distended, normal BS EXTREMITIES: 3+ edema Laboratory Results - last 24 hr 05/23/19 05/27/19 05/27/19 08:10 05:00 05:00 WBC 6.6 RBC 2.50 L Hgb 7.6 L Hct 23.0 L MCV 91.9 MCH 30.3 MCHC 32.9 RDW 18.3 H Plt Count 130 L D MPV 9.7 Absolute Neuts (auto) 5.0 Neutrophils % 75.6 D Neutrophils % (Manual) 73.5 Band Neutrophils % 0.0 Lymphocytes % 5.0 L D Lymphocytes % (Manual) 11.2 D Monocytes % 16.5 H Monocytes % (Manual) 12 H Eosinophils % 2.7 Eosinophils % (Manual) 2.0 Basophils % 0.2 Basophils % (Manual) 0.0 Myelocytes % (Man) 0 D Promyelocytes % (Man) 0 Blast Cells % (Manual) 0 Nucleated RBC % 0 Metamyelocytes 1 Hypochromia 0 Platelet Estimate Decreased Polychromasia 0 Poikilocytosis 0 Anisocytosis 1+ Microcytosis 0 Macrocytosis 0 Sodium 133 L Potassium 3.9 Chloride 100 Carbon Dioxide 23 Anion Gap 10 BUN 64.0 H Creatinine 1.8 H Est GFR (CKD-EPI)AfAm 32.48 Est GFR (CKD-EPI)NonAf 28.02 Random Glucose 184 H Calcium 7.8 L Crossmatch See Detail Current Medications Generic Name Dose Route Start Last Admin Trade Name Freq PRN Reason Stop Dose Admin Acetaminophen 650 mg 05/25/19 14:25 Tylenol - PO Q4H PRN FEVER Albuterol Sulfate 1 puff 05/23/19 03:12 Ventolin Hfa Inhaler - IH Q8H PRN SHORTNESS OF BREATH Apixaban 5 mg 05/23/19 10:00 05/27/19 09:56 Eliquis - PO 5 mg BID [facility] Administration Artificial Tears 1 drop 05/24/19 10:00 05/27/19 13:34 Artificial Tears OU 1 drp QID [facility] Administration Ascorbic Acid 1,000 mg 05/23/19 10:00 05/27/19 09:55 Vitamin C - PO Not Given DAILY [facility] Bisacodyl 10 mg 05/23/19 03:12 Dulcolax Suppository - RC DAILY PRN CONSTIPATION Collagenase 1 applic 05/26/19 10:30 05/27/19 10:03 Santyl - TP 1 applic DAILY [facility] Administration Protocol Diltiazem HCl 120 mg 05/23/19 10:00 05/27/19 09:57 Cardizem Cd - PO 120 mg DAILY [facility] Administration Folic Acid 1 mg 05/23/19 10:00 05/27/19 09:55 Folic Acid - PO 1 mg DAILY [facility] Administration Gabapentin 100 mg 05/23/19 06:00 05/27/19 13:29 Neurontin - PO 100 mg TID [facility] Administration Sodium Chloride 1,000 mls @ 83 mls/hr 05/22/19 20:45 05/26/19 22:23 Normal Saline - IV 83 mls/hr ASDIR [facility] Administration Vancomycin HCl 1,000 mg in 250 mls @ 200 mls/hr 05/23/19 20:00 05/26/19 22:23 Vancomycin (Pre-Docked) IVPB 200 mls/hr Q24H [facility] Administration Protocol Piperacillin Sod/Tazobactam 50 mls @ 100 mls/hr 05/23/19 15:00 05/27/19 09:57 Sod 2.25 gm/ Dextrose IVPB 100 mls/hr Q6H-IV [facility] Administration Protocol Caspofungin 50 mg/ Sodium 250 mls @ 250 mls/hr 05/24/19 20:00 05/26/19 22:24 Chloride IVPB 250 mls/hr Q24H [facility] Administration Ipratropium [place] 1 amp 05/23/19 03:12 Atrovent 0.02% Nebulizer - NEB Q8H PRN SHORTNESS OF BREATH Lactobacillus Acidophilus 1 tab 05/23/19 06:00 05/27/19 13:29 Bacid - PO 1 tab TID [facility] Administration Levothyroxine Sodium 25 mcg 05/23/19 06:30 05/27/19 06:33 Synthroid - PO 25 mcg DAILY@0630 [facility] Administration Magnesium Hydroxide 30 ml 05/24/19 07:07 Milk Of Magnesia - PO DAILY PRN CONSTIPATION Multivit/Ca Carb/B Cmplx/FA/Prenat 1 tablet 05/23/19 10:00 05/27/19 09:55 Nephro-Majo - PO 1 tablet DAILY [facility] Administration Oxycodone HCl 10 mg 05/26/19 11:09 05/27/19 09:53 Roxicodone - PO 10 mg Q4H PRN Administration PAIN LEVEL 6-10 Polyethylene Glycol 17 gm 05/23/19 10:00 05/27/19 12:01 Miralax (For Daily Use) - PO Not Given DAILY [facility] Pyridoxine HCl 100 mg 05/23/19 10:00 05/27/19 09:56 Vitamin B6 - PO 100 mg DAILY [facility] Administration Senna 1 tab 05/23/19 10:00 05/27/19 09:56 Senna - PO Not Given DAILY [facility] Sodium Chloride 2 spray 05/27/19 13:25 [facility] [place] Nasal [place] - NS BID PRN NASAL CONGESTION Torsemide 20 mg 05/23/19 22:00 05/26/19 22:22 Demadex - PO 20 mg HS [facility] Administration Valacyclovir HCl 500 mg 05/23/19 10:00 05/27/19 09:55 Valtrex - PO 500 mg BID [facility] Administration Vancomycin HCl 125 mg 05/25/19 12:00 05/27/19 12:19 Vancomycin Oral Solution PO 125 mg Q6HPO [facility] Administration ASSESSMENT AND PLAN: This is a 68 year old woman with a history of multiple myeloma, CML, type 2 DM, HTN, atrial fib, hypothyroidism who was sent to the ED from [facility] for altered mental status. 1. Acute metabolic encephalopathy - Resolved 2. Sepsis secondary to cellulitis of both legs, osteomyelitis of right heel - On Zosyn, Vancomycin, Caspofungin - Possible implantation of antibiotic beads into calcaneus by podiatry 3. Diabetic right heel ulcer - Continue wound care with Santyl 4. Neutropenia - Improved with Neupogen 5. Anemia - Transfused 1 unit PRBCs 05/25 - Hemoglobin stable - continue to monitor 6. Atrial fib - Continue Cardizem CD, Eliquis 7. Acute kidney injury - Improving 8. Stage 3 CKD 9. HTN - Continue Demadex 10. Type 2 diabetes mellitus - Fingersticks with Novolog sliding scale 11. CML - Gleevec on hold 12. Multiple myeloma 13. Hypothyroidism - Continue Synthroid
--- NOTE | 2019-05-27 17:29 | PN ---
Progress Note (short form) - Note Progress Note: Hematology and Oncology follow up Subjective: Patient seen and examined at bedside. No events overnight. Patient complains that her O2 is drying her nose. Objective: Vital Signs Temperature 98.3 F 05/27/19 14:00 Pulse Rate 87 05/27/19 14:00 Respiratory Rate 18 05/27/19 10:00 Blood Pressure 118/74 05/27/19 14:00 O2 Sat by Pulse Oximetry (%) 98 05/27/19 09:00 PE: Gen: Patient lying bed in mild distress. Cardio: regular rate and rhythm. S1, S2 heard. No murmurs, gallops, rubs Pulm: Lungs CTA b/l down to the bases. Abdomen: Soft, nontender, nondistended. Bowel sounds heard. Neuro: CN 2 -10 intact b/l. Patient A&O x3. Moving all 4 limbs spontaneously. CBC, BMP 05/27/19 05:00 05/27/19 05:00 Assessment & plan: The patient is a 68 y/o f w/ PMH CML/ multiple myeloma (daratumumab/velcade/ dex and imatinib) admitted for neutropenic fever. #neutropenic fever -afebrile >24hrs -s/p neupogen -WBC normalized today @ 6.6 -ANC 5000 -ok to DC neutropenic precautions -on vanc/zosyn -ID following -holding biologics #anemia -Hb stable -will continue to trend -false positive ab screen 2/2 daratumumab use; suggest getting type and cross from [place] [facility] if she requires transfusion -maintain normal transfusion thresholds
[2019-05-27] MEDS ORDERED: MINERAL OIL/PETROLAT/WATER TOPICAL CREAM 454 GM JAR TP PRN (20:18)
--- NOTE | 2019-05-27 21:49 | PN ---
Progress Note (short form) - Note Progress Note: Patient seen and examined c/o back pain AFVSS Cor: RSR, No murmurs, No gallops Lungs: Clear to P&A Abd: Soft, Normal bowel sounds, No organomegaly Ext: stasis dermatitis/ulcers Labs/Meds reviewed A/P 68 y/o patient with CML/ multiple myeloma on daratumumab/velcade/ dex and imatinib comes in with myelosuppression/neutropenia/ fever/ ? cellulitis Will transfuse PRBCs for HHGb 6.9----- false + alloab screen due to interference from daratumumab . [facility] Vanco/zosyn for cellulitis On PO vanco --ruling out c.diff d/c neupogen hold imatinib/myeloma therapy on eliquis --monitor CBC
[2019-05-27] MEDS: SODIUM CHLORIDE 1,000 ML IV SCH (23:11)
[2019-05-27] MEDS: VANCOMYCIN 1 GRAM (PRE-DOCKED) 1,000 MG/250 ML BAG IVPB SCH (23:11)
[2019-05-27] MEDS: INSULIN SLIDING SCALE (NOVOLOG) 1 VIAL SQ SCH (23:12)
[2019-05-27] MEDS: TORSEMIDE 20 MG TABLET (FP) PO SCH (23:12)
[2019-05-28] MEDS: VANCOMYCIN 250 MG/5 ML ORAL SOLUTION PO SCH ×4 (01:00→17:43)
[2019-05-28] MEDS: PIPERACILLIN/TAZOB 2.25 GM 2.25 GM in DEXTROSE 5%-WATER - 50 ML IVPB SCH ×5 (04:00→22:10)
[2019-05-28] MEDS ORDERED: PIPERACILLIN/TAZOBACTAM 2.25 GM VIAL IVPB ONE ×4 (05:31→20:57)
[2019-05-28] MEDS ORDERED: DEXTROSE 5%-WATER - 50 ML IVPB ONE ×4 (05:32→20:57)
[2019-05-28] MEDS: LEVOTHYROXINE NA 25 MCG TABLET (FP) PO SCH (06:29)
[2019-05-28] MEDS: INSULIN SLIDING SCALE (NOVOLOG) 1 VIAL SQ SCH ×4 (06:29→22:11)
[2019-05-28] MEDS: GABAPENTIN 100 MG CAPSULE (FP) PO SCH ×3 (06:30→22:11)
[2019-05-28] MEDS: LACTOBACILLUS ACIDOPHILUS 1 TABLET PO SCH ×3 (06:30→22:11)
[2019-05-28] MEDS: ARTIFICIAL TEARS (POLYVINYL ALCOHOL) OPTH DROPS OU SCH ×5 (06:30→22:11)
[2019-05-28] MEDS: oxyCODONE HCL 5 MG TABLET PO PRN ×5 (06:35→22:10)
[2019-05-28 07:42] LABS: BLOOD UREA NITROGEN 61.8 mg/dL (7-18); CALCIUM 7.6 mg/dL (8.5-10.1); CREATININE 1.7 mg/dL (0.55-1.3)
[2019-05-28 07:45] LABS: BASO % 0.3 % (0-2.0); EOS % 2.3 % (0-4.5); HEMATOCRIT 22.2 % (32.4-45.2); HEMOGLOBIN 7.3 GM/dL (10.7-15.3); LYMPH % 4.5 % (8-40); MCH 30.1 pg (25.7-33.7); MCHC 32.8 g/dl (32.0-36.0); MEAN CELL VOLUME 91.8 fl (80-96); MEAN PLT VOLUME 9.8 fl (7.5-11.1); NEUT % 83.9 % (42.8-82.8); PLATELET COUNT 119 K/MM3 (134-434); RBC 2.41 M/mm3 (3.60-5.2); RDW 18.8 % (11.6-15.6); WHITE BLOOD COUNT 5.8 K/mm3 (4.0-10.0)
[2019-05-28] MEDS ORDERED: ALBUTEROL SO4 0.083% IH SOL 2.5 MG/3 ML VIAL.NEB. NEB ONE (08:46)
[2019-05-28] MEDS: COLLAGENASE CLOSTRIDIUM HIST. 30 GRAMS TUBE TP SCH (10:02)
[2019-05-28] MEDS: ASCORBIC ACID 500 MG TABLET (FP) PO SCH (11:25)
[2019-05-28] MEDS: FOLIC ACID 1 MG TABLET (FP) PO SCH (11:26)
[2019-05-28] MEDS: VITAMIN B COMP W-C 1 EA TABLET PO SCH (11:26)
[2019-05-28] MEDS: APIXABAN 5 MG TABLET PO SCH (11:26)
[2019-05-28] MEDS: SENNOSIDES 8.6MG TABLET (FP) PO SCH (11:26)
[2019-05-28] MEDS: valACYclovir HCL 500 MG TABLET (FP) PO SCH ×2 (11:27→22:11)
[2019-05-28] MEDS: POLYETHYLENE GLYCOL 3350 119 GM BTL PO SCH (11:34)
[2019-05-28] MEDS: PYRIDOXINE HCL (B-6) 100 MG TABLET PO SCH (11:34)
--- NOTE | 2019-05-28 13:10 | PN ---
Progress Note, Physician History of Present Illness: continues to improve feeling better today - Current Medication List Current Medications: Active Medications Acetaminophen (Tylenol -) 650 mg PO Q4H PRN PRN Reason: FEVER Albuterol Sulfate (Ventolin Hfa Inhaler -) 1 puff IH Q8H PRN PRN Reason: SHORTNESS OF BREATH Apixaban (Eliquis -) 5 mg PO BID ON LICENSE OF [facility] Last Admin: 05/28/19 11:26 Dose: 5 mg Artificial Tears (Artificial Tears) 1 drop OU QID JOVITA Last Admin: 05/28/19 11:27 Dose: 1 drp Ascorbic Acid (Vitamin C -) 1,000 mg PO DAILY ON LICENSE OF [facility] Last Admin: 05/28/19 11:25 Dose: 1,000 mg Bisacodyl (Dulcolax Suppository -) 10 mg RC DAILY PRN PRN Reason: CONSTIPATION Collagenase (Santyl -) 1 applic TP DAILY ON LICENSE OF [facility]; Protocol Last Admin: 05/27/19 10:03 Dose: 1 applic Diltiazem HCl (Cardizem Cd -) 120 mg PO DAILY ON LICENSE OF [facility] Last Admin: 05/28/19 11:25 Dose: 120 mg Folic Acid (Folic Acid -) 1 mg PO DAILY ON LICENSE OF [facility] Last Admin: 05/28/19 11:26 Dose: 1 mg Gabapentin (Neurontin -) 100 mg PO TID ON LICENSE OF [facility] Last Admin: 05/28/19 06:30 Dose: 100 mg Sodium Chloride (Normal Saline -) 1,000 mls @ 83 mls/hr IV ASDIR JOVITA Last Admin: 05/27/19 23:11 Dose: 83 mls/hr Vancomycin HCl (Vancomycin (Pre-Docked)) 1,000 mg in 250 mls @ 200 mls/hr IVPB Q24H JOVITA; Protocol Last Admin: 05/27/19 23:11 Dose: 200 mls/hr Piperacillin Sod/Tazobactam (Sod 2.25 gm/ Dextrose) 50 mls @ 100 mls/hr IVPB Q6H-IV JOVITA; Protocol Last Admin: 05/28/19 11:25 Dose: 100 mls/hr Insulin Aspart (Novolog Vial Sliding Scale -) 1 vial SQ ACHS JOVITA; Protocol Last Admin: 05/28/19 12:38 Dose: 4 units Lactobacillus Acidophilus (Bacid -) 1 tab PO TID JOVITA Last Admin: 05/28/19 06:30 Dose: 1 tab Levothyroxine Sodium (Synthroid -) 25 mcg PO DAILY@0630 ON LICENSE OF [facility] Last Admin: 05/28/19 06:29 Dose: 25 mcg Magnesium Hydroxide (Milk Of Magnesia -) 30 ml PO DAILY PRN PRN Reason: CONSTIPATION Multi-Ingredient Lotion (Eucerin (Large Jar) -) 1 applic TP DAILY PRN PRN Reason: DRY SKIN Multivit/Ca Carb/B Cmplx/FA/Prenat (Nephro-Majo -) 1 tablet PO DAILY ON LICENSE OF [facility] Last Admin: 05/28/19 11:26 Dose: 1 tablet Oxycodone HCl (Roxicodone -) 10 mg PO Q4H PRN PRN Reason: PAIN LEVEL 6-10 Last Admin: 05/28/19 11:35 Dose: 10 mg Polyethylene Glycol (Miralax (For Daily Use) -) 17 gm PO DAILY ON LICENSE OF [facility] Last Admin: 05/28/19 11:34 Dose: 17 gm Pyridoxine HCl (Vitamin B6 -) 100 mg PO DAILY ON LICENSE OF [facility] Last Admin: 05/28/19 11:34 Dose: 100 mg Senna (Senna -) 1 tab PO DAILY ON LICENSE OF [facility] Last Admin: 05/28/19 11:26 Dose: 1 tab Sodium Chloride ([place] Nasal [place] -) 2 spray NS BID PRN PRN Reason: NASAL CONGESTION Last Admin: 05/27/19 18:58 Dose: 2 spray Torsemide (Demadex -) 20 mg PO HS ON LICENSE OF [facility] Last Admin: 05/27/19 23:12 Dose: 20 mg Valacyclovir HCl (Valtrex -) 500 mg PO BID ON LICENSE OF [facility] Last Admin: 05/28/19 11:27 Dose: 500 mg Vancomycin HCl (Vancomycin Oral Solution) 125 mg PO Q6HPO ON LICENSE OF [facility] Last Admin: 05/28/19 12:34 Dose: 125 mg - Objective Vital Signs: Vital Signs Temperature 97.5 F L 05/28/19 06:00 Pulse Rate 80 05/28/19 06:00 Respiratory Rate 20 05/28/19 06:00 Blood Pressure 144/75 05/28/19 06:00 O2 Sat by Pulse Oximetry (%) 96 05/27/19 22:00 Constitutional: Yes: No Distress, Calm, Obese Cardiovascular: Yes: S1, S2 Respiratory: Yes: Regular, CTA Bilaterally Gastrointestinal: Yes: Normal Bowel Sounds, Soft Musculoskeletal: Yes: Other Extremities: Yes: Other Wound/Incision: Yes: Dressing Dry and Intact Neurological: Yes: Alert, Oriented Psychiatric: Yes: Alert, Oriented Labs: CBC, BMP 05/28/19 05:16 05/28/19 05:16 INR, PTT INR 1.67 (0.83-1.09) H 05/23/19 05:42 Assessment/Plan Problem List - Problems (1) Acute on chronic diastolic (congestive) heart failure Code(s): I50.33 - ACUTE ON CHRONIC DIASTOLIC (CONGESTIVE) HEART FAILURE (2) CML (chronic myelocytic leukemia) Code(s): C92.10 - CHRONIC MYELOID LEUK, BCR/ABL-POSITIVE, NOT ACHIEVE REMIS (3) Neutropenic fever Code(s): D70.9 - NEUTROPENIA, UNSPECIFIED; R50.81 - FEVER PRESENTING WITH CONDITIONS CLASSIFIED ELSEWHERE (4) Osteomyelitis Code(s): M86.9 - OSTEOMYELITIS, UNSPECIFIED Qualifiers: Osteomyelitis type: other acute Osteomyelitis location: multiple sites Qualified Code(s): M86.19 - Other acute osteomyelitis, multiple sites (5) Pulmonary hypertension Code(s): I27.20 - PULMONARY HYPERTENSION, UNSPECIFIED (6) Sepsis Code(s): A41.9 - SEPSIS, UNSPECIFIED ORGANISM Qualifiers: Sepsis type: sepsis due to unspecified organism Sepsis acute organ dysfunction status: unspecified Qualified Code(s): A41.9 - Sepsis, unspecified organism (7) Diabetic foot ulcer Code(s): E11.621 - TYPE 2 DIABETES MELLITUS WITH FOOT ULCER; L97.509 - NON- PRESSURE CHRONIC ULCER OTH PRT UNSP FOOT W UNSP SEVERITY Qualifiers: Diabetic foot ulcer location: heel Diabetes mellitus type: type 2 Laterality: unspecified laterality Non-pressure ulcer stage: unspecified non- pressure ulcer stage Qualified Code(s): E11.621 - Type 2 diabetes mellitus with foot ulcer; L97.409 - Non-pressure chronic ulcer of unspecified heel and midfoot with unspecified severity (8) A-fib Code(s): I48.91 - UNSPECIFIED ATRIAL FIBRILLATION Qualifiers: Atrial fibrillation type: chronic Qualified Code(s): I48.2 - Chronic atrial fibrillation (9) ASA (acute kidney injury) Code(s): N17.9 - ACUTE KIDNEY FAILURE, UNSPECIFIED (10) Altered mental status, unspecified Code(s): R41.82 - ALTERED MENTAL STATUS, UNSPECIFIED (11) COPD (chronic obstructive pulmonary disease) Code(s): J44.9 - CHRONIC OBSTRUCTIVE PULMONARY DISEASE, UNSPECIFIED (12) Cellulitis Code(s): L03.90 - CELLULITIS, UNSPECIFIED Qualifiers: Site of cellulitis: extremity Site of cellulitis of extremity: lower extremity Laterality: unspecified laterality Qualified Code(s): L03.119 - Cellulitis of unspecified part of limb (13) Chronic anemia Code(s): D64.9 - ANEMIA, UNSPECIFIED (14) Diabetic neuropathy Code(s): E11.40 - TYPE 2 DIABETES MELLITUS WITH DIABETIC NEUROPATHY, UNSP (15) HTN (hypertension) Code(s): I10 - ESSENTIAL (PRIMARY) HYPERTENSION (16) T2DM (type 2 diabetes mellitus) Code(s): E11.9 - TYPE 2 DIABETES MELLITUS WITHOUT COMPLICATIONS Qualifiers: Diabetes mellitus complication status: with neurologic complications (17) Osteomyelitis of foot Code(s): M86.9 - OSTEOMYELITIS, UNSPECIFIED Qualifiers: Laterality: right Assessment/Plan s/p Sepsis MRSA bacteremia LE cellulitis Infected foot ulcer/OM - s/p debridement and antibiotic implantation POD#2 Anemia - s/p PRBC transfusion Neutropenia s/p neupogen Acute on chronic HF ASA on CKD - improving CML MM AFIB Pulm HTN DM Morbid obesity hypothyroidism Rash - can not exclude allergic reaction SOB wound care continue current mgmt resp support diuresis if needed abx physio rest as per the team
--- NOTE | 2019-05-28 15:02 | PN ---
Teaching Attending Note Name of Resident: Lidia Segura ATTENDING PHYSICIAN STATEMENT I saw and evaluated the patient. I reviewed the resident's note and discussed the case with the resident. I agree with the resident's findings and plan as documented. SUBJECTIVE: Feels okay, no complaints. No fever/chills. OBJECTIVE: Afebrile, hemodynamically Stable. Last Vital Signs Temp Pulse Resp BP Pulse Ox 97.5 F L 80 20 144/75 96 05/28/19 06:00 05/28/19 06:00 05/28/19 06:00 05/28/19 06:00 05/27/19 22:00 HEAD: Atraumatic, Normocephalic. HEART: S1S2, RRR LUNGS: Clear to auscultation ABDOMEN: Obese, soft, non-tender, non-distended, normal BS EXTREMITIES: 3+ edema, erythema, chronic skin changes, R heel ulcer/foot dressed. Laboratory Results - last 24 hr 05/23/19 05/27/19 05/28/19 08:10 22:45 05:16 WBC 5.8 RBC 2.41 L Hgb 7.3 L Hct 22.2 L MCV 91.8 MCH 30.1 MCHC 32.8 RDW 18.8 H Plt Count 119 L MPV 9.8 Absolute Neuts (auto) 4.8 Neutrophils % 83.9 H Lymphocytes % 4.5 L Monocytes % 9.0 Eosinophils % 2.3 Basophils % 0.3 Nucleated RBC % 0 Sodium Potassium Chloride Carbon Dioxide Anion Gap BUN Creatinine Est GFR (CKD-EPI)AfAm Est GFR (CKD-EPI)NonAf POC Glucometer 278 Random Glucose Calcium Blood Type O POSITIVE Antibody Screen Positive Prewarmed Antibody Srcn Positive H Direct Antiglob Test Negative Crossmatch See Detail 05/28/19 05/28/19 05/28/19 05:16 06:22 12:36 WBC RBC Hgb Hct MCV MCH MCHC RDW Plt Count MPV Absolute Neuts (auto) Neutrophils % Lymphocytes % Monocytes % Eosinophils % Basophils % Nucleated RBC % Sodium 135 L Potassium 4.0 Chloride 102 Carbon Dioxide 23 Anion Gap 10 BUN 61.8 H Creatinine 1.7 H Est GFR (CKD-EPI)AfAm 34.80 Est GFR (CKD-EPI)NonAf 30.03 POC Glucometer 185 213 Random Glucose 167 H Calcium 7.6 L Blood Type Antibody Screen Prewarmed Antibody Srcn Direct Antiglob Test Crossmatch Current Medications Generic Name Dose Route Start Last Admin Trade Name Freq PRN Reason Stop Dose Admin Acetaminophen 650 mg 05/25/19 14:25 Tylenol - PO Q4H PRN FEVER Albuterol Sulfate 1 puff 05/23/19 03:12 Ventolin Hfa Inhaler - IH Q8H PRN SHORTNESS OF BREATH Albuterol Sulfate 1 amp 05/28/19 16:00 Ventolin 0.083% Nebulizer Soln - NEB RQID JOVITA Apixaban 5 mg 05/23/19 10:00 05/28/19 11:26 Eliquis - PO 5 mg BID JOVITA Administration Artificial Tears 1 drop 05/24/19 10:00 05/28/19 11:27 Artificial Tears OU 1 drp QID JOVITA Administration Ascorbic Acid 1,000 mg 05/23/19 10:00 05/28/19 11:25 Vitamin C - PO 1,000 mg DAILY JOVITA Administration Bisacodyl 10 mg 05/23/19 03:12 Dulcolax Suppository - RC DAILY PRN CONSTIPATION Collagenase 1 applic 05/26/19 10:30 05/27/19 10:03 Santyl - TP 1 applic DAILY JOVITA Administration Protocol Diltiazem HCl 120 mg 05/23/19 10:00 05/28/19 11:25 Cardizem Cd - PO 120 mg DAILY JOVITA Administration Folic Acid 1 mg 05/23/19 10:00 05/28/19 11:26 Folic Acid - PO 1 mg DAILY JOVITA Administration Gabapentin 100 mg 05/23/19 06:00 05/28/19 06:30 Neurontin - PO 100 mg TID JOVITA Administration Sodium Chloride 1,000 mls @ 83 mls/hr 05/22/19 20:45 05/27/19 23:11 Normal Saline - IV 83 mls/hr ASDIR JOVITA Administration Piperacillin Sod/Tazobactam 50 mls @ 100 mls/hr 05/23/19 15:00 05/28/19 11:25 Sod 2.25 gm/ Dextrose IVPB 100 mls/hr Q6H-IV JOVITA Administration Protocol Insulin Aspart 1 vial 05/27/19 22:00 05/28/19 12:38 Novolog Vial Sliding Scale - SQ 4 units ACHS JOVITA Administration Protocol Lactobacillus Acidophilus 1 tab 05/23/19 06:00 05/28/19 06:30 Bacid - PO 1 tab TID JOVITA Administration Levothyroxine Sodium 25 mcg 05/23/19 06:30 05/28/19 06:29 Synthroid - PO 25 mcg DAILY@0630 JOVITA Administration Magnesium Hydroxide 30 ml 05/24/19 07:07 Milk Of Magnesia - PO DAILY PRN CONSTIPATION Multi-Ingredient Lotion 1 applic 05/27/19 20:18 Eucerin (Large Jar) - TP DAILY PRN DRY SKIN Multivit/Ca Carb/B Cmplx/FA/Prenat 1 tablet 05/23/19 10:00 05/28/19 11:26 Nephro-Majo - PO 1 tablet DAILY JOVITA Administration Oxycodone HCl 10 mg 05/26/19 11:09 05/28/19 11:35 Roxicodone - PO 10 mg Q4H PRN Administration PAIN LEVEL 6-10 Polyethylene Glycol 17 gm 05/23/19 10:00 05/28/19 11:34 Miralax (For Daily Use) - PO 17 gm DAILY JOVITA Administration Pyridoxine HCl 100 mg 05/23/19 10:00 05/28/19 11:34 Vitamin B6 - PO 100 mg DAILY JOVIAT Administration Senna 1 tab 05/23/19 10:00 05/28/19 11:26 Senna - PO 1 tab DAILY JOVITA Administration Sodium Chloride 2 spray 05/27/19 13:25 05/27/19 18:58 [place] Nasal [place] - NS 2 spray BID PRN Administration NASAL CONGESTION Torsemide 20 mg 05/23/19 22:00 05/27/19 23:12 Demadex - PO 20 mg HS JOVITA Administration Valacyclovir HCl 500 mg 05/23/19 10:00 05/28/19 11:27 Valtrex - PO 500 mg BID JOVITA Administration Vancomycin HCl 125 mg 05/25/19 12:00 05/28/19 12:34 Vancomycin Oral Solution PO 125 mg Q6HPO JOVITA Administration Home Medications Medication Instructions Recorded Albuterol Sulfate 2.5 mg IH Q8H PRN 07/18/18 Ascorbic Acid [Vitamin C -] 1,000 mg PO DAILY 07/18/18 Gabapentin [Neurontin -] 100 mg PO TID 07/18/18 Ipratropium [place] 0.2 mg IH Q8H PRN 07/18/18 Vitamin B Complex 1 tab PO DAILY 07/18/18 Diltiazem Cd [Cardizem Cd -] 120 mg PO DAILY cap.cd.24h 07/23/18 Acetaminophen [Pain Relief] 650 mg PO Q6H PRN 07/29/18 Bisacodyl Suppository [Dulcolax 10 mg RC DAILY PRN 07/29/18 Suppository -] Insulin Lispro [Humalog Kwikpen 0 unit SQ ASDIR 07/29/18 U-100] Mag Hydrox/Al Hydrox/Simeth 30 ml PO DAILY PRN 07/29/18 [Mylanta Oral Suspension -] Folic Acid 1 mg PO DAILY 11/14/18 Pyridoxine HCl (B-6) [Vitamin B6 -] 100 mg PO DAILY 11/14/18 Sennosides [Senna Lax] 17.2 mg PO DAILY 11/14/18 Eliquis 5 mg PO BID 02/26/19 Glimepiride 1 mg PO AC 02/26/19 Torsemide 40 mg PO AM 02/26/19 Clindamycin [Cleocin -] 600 mg PO Q8H #42 capsule 05/19/19 Aa/Hydrolyzed Collagen, Whey [Lps 30 ml PO BID 05/23/19 15-30 Liquid] Collagenase Clostridium Hist. 1 applic TP DAILY 05/23/19 [Santyl] Cyclobenzaprine HCl [Flexeril -] 5 mg PO BID 05/23/19 Docusate Sodium [Colace] 300 mg PO DAILY 05/23/19 Fentanyl 1 each TD Q72H 05/23/19 Hydrocortisone [Preparation H] 26 gm RC DAILY 05/23/19 Imatinib Mesylate [Gleevec] 400 mg PO DAILY 05/23/19 Lactobacillus Acidophilus 1 each PO TID 05/23/19 [Acidophilus] Levothyroxine [Synthroid -] 25 mcg PO DAILY@0630 05/23/19 Lidocaine [Aspercreme] 1 each TP DAILY 05/23/19 Magnesium Hydroxide [Milk of 30 ml PO DAILY PRN 05/23/19 Magnesia] Menthol [B[place] Ultra Strength] 1 each TP DAILY 05/23/19 Menthol/Camphor [Sarna Anti-Itch 222 ml TP DAILY PRN 05/23/19 Lotion] Nystatin Powder [Nystop Topical 15 applic TP BID 05/23/19 Powder -] Oxycodone HCl 10 mg PO Q4HWA PRN 05/23/19 Pantoprazole Sodium [Protonix] 40 mg PO DAILY 05/23/19 Polyethylene Glycol 3350 [Miralax 17 gm PO DAILY 05/23/19 (For Daily Use) -] Polyvinyl Alcohol [Artificial 1 drop OU QID 05/23/19 Tears] Sodium Phosphate,Moca-Dibasic 133 ml RC PRN PRN 05/23/19 [Fleet Enema] Torsemide [Demadex -] 20 mg PO HS 05/23/19 Valacyclovir HCl [Valtrex] 500 mg PO BID 05/23/19 ASSESSMENT AND PLAN: 68 year old female with history of Multiple Myeloma, CML, DM 2, HTN, Atrial Fibrillation, Hypothyroidism, sent to the ED from [facility] for altered mental status. 1. Acute metabolic encephalopathy secondary to sepsis - Resolved 2. Neutropenic Sepsis secondary to bilateral LE Cellulitis, Osteomyelitis of right heel with overlying ulcer - On IV Zosyn and oral Vanco due to diarrhea - Cdiff pending. Further management as per ID and Podiatry - Possible implantation of antibiotic beads into calcaneus by podiatry Wound care 3. Neutropenia secondary to underlying MM/CML - resolved s/p Neupogen 4. Anemia sec to MM/CML - s/p 1 unit PRBCs. H.H stable. 5. Atrial fibrillation - Continue Cardizem CD, Eliquis 6. ASA on CKD 3 - improving. 7. HTN - on Cardizem, Torsemide. 8. DM 2 - Novolog sliding scale. Oral diabetic medications held. 9. CML - Gleevec on hold 10. Multiple Myeloma - management as per Hematology. 11. Hypothyroidism - Continue Synthroid.
[2019-05-28] MEDS: ALBUTEROL SO4 0.083% IH SOL 2.5 MG/3 ML VIAL.NEB. NEB SCH ×2 (16:23→20:50)
--- NOTE | 2019-05-28 17:13 | PN ---
Progress Note (short form) - Note Progress Note: Podiatry F/U; Seen/evaluated at bedside NAD. On oxygen tx. Denies F/V/N/C. Afebrile. On IV abx. MELANI: Pedal pulses nonpalpable, TG wnl, CFT brisk to toes bilaterally. On the right nesha t is a plantar diabetic ulcer with fibrotic base, central aspect probes to bone, serous drainage, no purulence, no fluctuance, no streaking cellulitis, no signs of acute infection. Minimal tenderness to palpation. No acute ischemic changes to the foot. Imp: 68 year old diabetic female with right heel diabetic ulcer, chronic osteomyelitis, pancytopenia 1. IV abx per ID 2. Continue local care 3. Discussed treatment options with patient. Bone debridement with antibiotic bead placement is a viable option. We do not have abx bead kit in the hospital right now, will try to procure for . Will follow for now. Will need Hem/Onc clearance prior to surgery. Michaela Farmer DPM Problem List - Problems (1) Osteomyelitis Code(s): M86.9 - OSTEOMYELITIS, UNSPECIFIED Qualifiers: Osteomyelitis type: other acute Osteomyelitis location: multiple sites Qualified Code(s): M86.19 - Other acute osteomyelitis, multiple sites
--- NOTE | 2019-05-28 17:36 | PN ---
Physical Exam: SUBJECTIVE: Patient seen and examined. She reports shortness of breath that started when she woke up this morning. She denies abdominal pain, nausea, or vomiting. She has been tolerating food. OBJECTIVE: Vital Signs Period Temp Pulse Resp BP Sys/Machado Pulse Ox Last 24 Hr 97.5 F-98 F 78-87 18-20 123-144/60-76 96 GENERAL: The patient is awake, alert, and fully oriented, in no distress. HEAD: Normal with no signs of trauma. EYES: PERRL, extraocular movements intact, sclera anicteric, conjunctiva clear. No ptosis. ENT: Ears normal, nares patent, moist mucous membranes. NECK: Trachea midline, full range of motion, supple. LUNGS: Breath sounds equal, clear to auscultation bilaterally, no wheezes, no crackles, no accessory muscle use. HEART: Regular rate and rhythm, S1, S2 without murmur, rub or gallop. ABDOMEN: Soft, nontender, nondistended, normoactive bowel sounds EXTREMITIES: 2+ pulses, warm, well-perfused, no edema, except for bilateral lower extremity erythema, +2 pitting edema with crusting on anterior aspect. Right foot plantar surface stage 4 ulcer as well as left plantar ulcer stage 3/ 4. NEUROLOGICAL: Cranial nerves II through XII grossly intact. Normal speech, gait not observed. PSYCH: Normal mood and affect. SKIN: Warm, dry, normal turgor, no rashes or lesions noted except as above Laboratory Results - last 24 hr 05/22/19 05/23/19 05/27/19 15:45 08:10 22:45 WBC RBC Hgb Hct MCV MCH MCHC RDW Plt Count MPV Absolute Neuts (auto) Neutrophils % Lymphocytes % Monocytes % Eosinophils % Basophils % Nucleated RBC % Sodium Potassium Chloride Carbon Dioxide Anion Gap BUN Creatinine Est GFR (CKD-EPI)AfAm Est GFR (CKD-EPI)NonAf POC Glucometer 278 Random Glucose Calcium Beta-(1,3)-D-Glucan < 31 Blood Type O POSITIVE Antibody Screen Positive Prewarmed Antibody Srcn Positive H Direct Antiglob Test Negative Crossmatch See Detail 05/28/19 05/28/19 05/28/19 05:16 05:16 06:22 WBC 5.8 RBC 2.41 L Hgb 7.3 L Hct 22.2 L MCV 91.8 MCH 30.1 MCHC 32.8 RDW 18.8 H Plt Count 119 L MPV 9.8 Absolute Neuts (auto) 4.8 Neutrophils % 83.9 H Lymphocytes % 4.5 L Monocytes % 9.0 Eosinophils % 2.3 Basophils % 0.3 Nucleated RBC % 0 Sodium 135 L Potassium 4.0 Chloride 102 Carbon Dioxide 23 Anion Gap 10 BUN 61.8 H Creatinine 1.7 H Est GFR (CKD-EPI)AfAm 34.80 Est GFR (CKD-EPI)NonAf 30.03 POC Glucometer 185 Random Glucose 167 H Calcium 7.6 L Beta-(1,3)-D-Glucan Blood Type Antibody Screen Prewarmed Antibody Srcn Direct Antiglob Test Crossmatch 05/28/19 05/28/19 12:36 16:55 WBC RBC Hgb Hct MCV MCH MCHC RDW Plt Count MPV Absolute Neuts (auto) Neutrophils % Lymphocytes % Monocytes % Eosinophils % Basophils % Nucleated RBC % Sodium Potassium Chloride Carbon Dioxide Anion Gap BUN Creatinine Est GFR (CKD-EPI)AfAm Est GFR (CKD-EPI)NonAf POC Glucometer 213 244 Random Glucose Calcium Beta-(1,3)-D-Glucan Blood Type Antibody Screen Prewarmed Antibody Srcn Direct Antiglob Test Crossmatch Active Medications Generic Name Dose Route Start Last Admin Trade Name Freq PRN Reason Stop Dose Admin Acetaminophen 650 mg 05/25/19 14:25 Tylenol - PO Q4H PRN FEVER Albuterol Sulfate 1 puff 05/23/19 03:12 Ventolin Hfa Inhaler - IH Q8H PRN SHORTNESS OF BREATH Albuterol Sulfate 1 amp 05/28/19 16:00 Ventolin 0.083% Nebulizer Soln - NEB RQID JOVITA Apixaban 5 mg 05/23/19 10:00 05/28/19 11:26 Eliquis - PO 5 mg BID JOVITA Administration Artificial Tears 1 drop 05/24/19 10:00 05/28/19 15:48 Artificial Tears OU 1 drp QID JOVITA Administration Ascorbic Acid 1,000 mg 05/23/19 10:00 05/28/19 11:25 Vitamin C - PO 1,000 mg DAILY JOVITA Administration Bisacodyl 10 mg 05/23/19 03:12 Dulcolax Suppository - RC DAILY PRN CONSTIPATION Collagenase 1 applic 05/26/19 10:30 05/28/19 10:02 Santyl - TP Not Given DAILY JOVITA Protocol Diltiazem HCl 120 mg 05/23/19 10:00 05/28/19 11:25 Cardizem Cd - PO 120 mg DAILY JOVITA Administration Folic Acid 1 mg 05/23/19 10:00 05/28/19 11:26 Folic Acid - PO 1 mg DAILY JOVITA Administration Gabapentin 100 mg 05/23/19 06:00 05/28/19 15:47 Neurontin - PO 100 mg TID JOVITA Administration Sodium Chloride 1,000 mls @ 83 mls/hr 05/22/19 20:45 05/27/19 23:11 Normal Saline - IV 83 mls/hr ASDIR JOVITA Administration Piperacillin Sod/Tazobactam 50 mls @ 100 mls/hr 05/23/19 15:00 05/28/19 16:51 Sod 2.25 gm/ Dextrose IVPB 100 mls/hr Q6H-IV JOVITA Administration Protocol Insulin Aspart 1 vial 05/27/19 22:00 05/28/19 16:57 Novolog Vial Sliding Scale - SQ 4 units ACHS JOVITA Administration Protocol Lactobacillus Acidophilus 1 tab 05/23/19 06:00 05/28/19 15:47 Bacid - PO 1 tab TID JOVITA Administration Levothyroxine Sodium 25 mcg 05/23/19 06:30 05/28/19 06:29 Synthroid - PO 25 mcg DAILY@0630 JOVITA Administration Magnesium Hydroxide 30 ml 05/24/19 07:07 Milk Of Magnesia - PO DAILY PRN CONSTIPATION Multi-Ingredient Lotion 1 applic 05/27/19 20:18 Eucerin (Large Jar) - TP DAILY PRN DRY SKIN Multivit/Ca Carb/B Cmplx/FA/Prenat 1 tablet 05/23/19 10:00 05/28/19 11:26 Nephro-Majo - PO 1 tablet DAILY JOVITA Administration Oxycodone HCl 10 mg 05/26/19 11:09 05/28/19 15:49 Roxicodone - PO 10 mg Q4H PRN Administration PAIN LEVEL 6-10 Polyethylene Glycol 17 gm 05/23/19 10:00 05/28/19 11:34 Miralax (For Daily Use) - PO 17 gm DAILY JOVITA Administration Pyridoxine HCl 100 mg 05/23/19 10:00 05/28/19 11:34 Vitamin B6 - PO 100 mg DAILY JOVITA Administration Senna 1 tab 05/23/19 10:00 05/28/19 11:26 Senna - PO 1 tab DAILY JOVITA Administration Sodium Chloride 2 spray 05/27/19 13:25 05/27/19 18:58 [place] Nasal [place] - NS 2 spray BID PRN Administration NASAL CONGESTION Torsemide 20 mg 05/23/19 22:00 05/27/19 23:12 Demadex - PO 20 mg HS JOVITA Administration Valacyclovir HCl 500 mg 05/23/19 10:00 05/28/19 11:27 Valtrex - PO 500 mg BID JOVITA Administration Vancomycin HCl 125 mg 05/25/19 12:00 05/28/19 12:34 Vancomycin Oral Solution PO 125 mg Q6HPO JOVITA Administration ASSESSMENT/PLAN: Ms. 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 She was brought from [facility] via EMS with complaints of feeling feverish for the past few days. #sepsis 2/2 bilateral LE cellulitis and right foot osteomyelitis WBC increased to 5.8 with ANC 4.8. Temp 101.4 at admission. MRI on 05/24/19 right foot showed significant cellulitis and osteomyelitis of calcaneus with no tendon/ligamentous tears. Wound culture positive Proteus mirabilis, Enterococcus , Pseudomonas, Enterobacter, MRSA. Blood cx MRSA. Urine cx negative. LA normal. -Zosyn day 6 -Vancomycin day 6 (vanc level 05/25/19 was 21.2) -caspofungin day 5 -tylenol -oxycodone 10mg Q4H PRN -neurontin -wound care-Santyl -ID consulted- continue abx -vascular consulted -podiatry following- wound care vs BKA--unlikely given co-mobidities #acute metabolic encephalopathy, resolved Pt is A&Ox3. Likely from sepsis. CT initially suspected acute infarct. MRI brain showed no acute changes. CT findings likely artifact. Diffuse microischemic changes. -neuro following -stroke workup initiated at admission- carotid doppler left common carotid bifurcation 50-69% stenosis; echo- LA mildly dilated, RV pressure elevated at > 60, severe mitral annular calcification, moderate TR, mild , EF not calculated , technically difficult study #anemia of chronic disease Hb 7.6 s/p PRBCs -heme- hold imatinib #pancytopenia hx of CML/MM -neupogen -heme/onc #ASA Cr 1.7. Renal U/S right nephrolithiasis without hydronephrosis. -gentle hydration #a-fib Echo- LA mildly dilated, RV pressure elevated at >60, severe mitral annular calcification, moderate TR, mild , EF not calculated, technically difficult study -Eliquis 5mg BID -diltiazem 120mg daily #DM HbA1c 6.0 -BGM -SSI #HTN -torsemide #COPD -albuterol -atrovent #HLD #hypothyroidism -Synthroid 25mcg daily #chronic constipation -bowel regimen FEN NS 83mL/hr monitor diabetic/Na controlled diet DVT Ppx Eliquis-held Dispo Plan for PICC line placement for out patient abx. Eliquis held for procedure. C diff pending for diarrhea which is resolved. Visit type - Emergency Visit Emergency Visit: Yes ED Registration Date: 05/22/19 Care time: The patient presented to the Emergency Department on the above date and was hospitalized for further evaluation of their emergent condition. - New Patient This patient is new to me today: No - Critical Care Critical Care patient: No - Discharge Referral Referred to [facility] Med P.C[facility] No ATTENDING PHYSICIAN STATEMENT I saw and evaluated the patient. I reviewed the resident's note and discussed the case with the resident. I agree with the resident's findings and plan as documented. SUBJECTIVE: OBJECTIVE: ASSESSMENT AND PLAN:
[2019-05-28] MEDS ORDERED: INSULIN (NOVOLOG) ASPART 100 UNITS/ML 10ML VIAL ONE (21:54)
[2019-05-28] MEDS: SODIUM CHLORIDE 1,000 ML IV SCH (22:10)
[2019-05-28] MEDS: TORSEMIDE 20 MG TABLET (FP) PO SCH (22:11)
[2019-05-29] MEDS: VANCOMYCIN 250 MG/5 ML ORAL SOLUTION PO SCH ×3 (00:31→12:20)
[2019-05-29] MEDS ORDERED: PIPERACILLIN/TAZOBACTAM 2.25 GM VIAL IVPB ONE ×4 (03:14→20:47)
[2019-05-29] MEDS ORDERED: DEXTROSE 5%-WATER - 50 ML IVPB ONE ×4 (03:14→20:47)
[2019-05-29] MEDS: PIPERACILLIN/TAZOB 2.25 GM 2.25 GM in DEXTROSE 5%-WATER - 50 ML IVPB SCH ×4 (03:30→21:11)
[2019-05-29] MEDS: LEVOTHYROXINE NA 25 MCG TABLET (FP) PO SCH (05:57)
[2019-05-29] MEDS: GABAPENTIN 100 MG CAPSULE (FP) PO SCH ×3 (05:57→21:13)
[2019-05-29] MEDS: LACTOBACILLUS ACIDOPHILUS 1 TABLET PO SCH ×3 (05:57→21:13)
[2019-05-29] MEDS: INSULIN SLIDING SCALE (NOVOLOG) 1 VIAL SQ SCH ×3 (06:04→21:43)
[2019-05-29] MEDS: oxyCODONE HCL 5 MG TABLET PO PRN (06:10)
[2019-05-29 06:59] LABS: BASO % 0.1 % (0-2.0); EOS % 1.7 % (0-4.5); HEMATOCRIT 21.3 % (32.4-45.2); HEMOGLOBIN 7.1 GM/dL (10.7-15.3); LYMPH % 3.8 % (8-40); MCH 30.6 pg (25.7-33.7); MCHC 33.6 g/dl (32.0-36.0); MEAN CELL VOLUME 91.2 fl (80-96); MEAN PLT VOLUME 9.9 fl (7.5-11.1); MONO % 6.3 % (3.8-10.2); NEUT % 88.1 % (42.8-82.8); PLATELET COUNT 106 K/MM3 (134-434); RBC 2.33 M/mm3 (3.60-5.2); RDW 18.7 % (11.6-15.6); WHITE BLOOD COUNT 6.6 K/mm3 (4.0-10.0)
[2019-05-29] MEDS: ALBUTEROL SO4 0.083% IH SOL 2.5 MG/3 ML VIAL.NEB. NEB SCH ×4 (07:25→21:22)
[2019-05-29 07:31] LABS: ALBUMIN 1.8 g/dl (3.4-5.0); BILIRUBIN,TOTAL 0.3 mg/dL (0.2-1); BLOOD UREA NITROGEN 60.4 mg/dL (7-18); CALCIUM 7.8 mg/dL (8.5-10.1); CREATININE 1.7 mg/dL (0.55-1.3); POTASSIUM 4.2 mmol/L (3.5-5.1); TOT PROT 6.3 g/dl (6.4-8.2)
[2019-05-29] MEDS: FOLIC ACID 1 MG TABLET (FP) PO SCH (09:56)
[2019-05-29] MEDS: POLYETHYLENE GLYCOL 3350 119 GM BTL PO SCH (09:56)
[2019-05-29] MEDS: VITAMIN B COMP W-C 1 EA TABLET PO SCH (09:56)
[2019-05-29] MEDS: ASCORBIC ACID 500 MG TABLET (FP) PO SCH (09:56)
[2019-05-29] MEDS: valACYclovir HCL 500 MG TABLET (FP) PO SCH ×2 (09:56→21:13)
[2019-05-29] MEDS: ARTIFICIAL TEARS (POLYVINYL ALCOHOL) OPTH DROPS OU SCH ×4 (09:56→21:11)
[2019-05-29] MEDS: SENNOSIDES 8.6MG TABLET (FP) PO SCH (09:57)
[2019-05-29] MEDS: PYRIDOXINE HCL (B-6) 100 MG TABLET PO SCH (09:57)
[2019-05-29] MEDS: COLLAGENASE CLOSTRIDIUM HIST. 30 GRAMS TUBE TP SCH (09:57)
--- NOTE | 2019-05-29 13:14 | PN ---
Progress Note, Physician History of Present Illness: improving podiatry input noted - Current Medication List Current Medications: Active Medications Acetaminophen (Tylenol -) 650 mg PO Q4H PRN PRN Reason: FEVER Albuterol Sulfate (Ventolin Hfa Inhaler -) 1 puff IH Q8H PRN PRN Reason: SHORTNESS OF BREATH Last Admin: 05/28/19 14:45 Dose: 1 puff Albuterol Sulfate (Ventolin 0.083% Nebulizer Soln -) 1 amp NEB RQID [facility] Last Admin: 05/29/19 11:20 Dose: 1 amp Apixaban (Eliquis -) 5 mg PO BID [facility] Last Admin: 05/28/19 11:26 Dose: 5 mg Artificial Tears (Artificial Tears) 1 drop OU QID [facility] Last Admin: 05/29/19 09:56 Dose: 1 drp Ascorbic Acid (Vitamin C -) 1,000 mg PO DAILY [facility] Last Admin: 05/29/19 09:56 Dose: 1,000 mg Bisacodyl (Dulcolax Suppository -) 10 mg RC DAILY PRN PRN Reason: CONSTIPATION Collagenase (Santyl -) 1 applic TP DAILY [facility]; Protocol Last Admin: 05/29/19 09:57 Dose: 1 applic Diltiazem HCl (Cardizem Cd -) 120 mg PO DAILY [facility] Last Admin: 05/29/19 09:56 Dose: 120 mg Folic Acid (Folic Acid -) 1 mg PO DAILY [facility] Last Admin: 05/29/19 09:56 Dose: 1 mg Gabapentin (Neurontin -) 100 mg PO TID [facility] Last Admin: 05/29/19 05:57 Dose: 100 mg Piperacillin Sod/Tazobactam (Sod 2.25 gm/ Dextrose) 50 mls @ 100 mls/hr IVPB Q6H-IV [facility]; Protocol Last Admin: 05/29/19 09:56 Dose: 100 mls/hr Insulin Aspart (Novolog Vial Sliding Scale -) 1 vial SQ ACHS [facility]; Protocol Last Admin: 05/29/19 11:20 Dose: Not Given Lactobacillus Acidophilus (Bacid -) 1 tab PO TID [facility] Last Admin: 05/29/19 05:57 Dose: 1 tab Levothyroxine Sodium (Synthroid -) 25 mcg PO DAILY@0630 [facility] Last Admin: 05/29/19 05:57 Dose: 25 mcg Magnesium Hydroxide (Milk Of Magnesia -) 30 ml PO DAILY PRN PRN Reason: CONSTIPATION Multi-Ingredient Lotion (Eucerin (Large Jar) -) 1 applic TP DAILY PRN PRN Reason: DRY SKIN Multivit/Ca Carb/B Cmplx/FA/Prenat (Nephro-Majo -) 1 tablet PO DAILY [facility] Last Admin: 05/29/19 09:56 Dose: 1 tablet Polyethylene Glycol (Miralax (For Daily Use) -) 17 gm PO DAILY [facility] Last Admin: 05/29/19 09:56 Dose: 17 gm Pyridoxine HCl (Vitamin B6 -) 100 mg PO DAILY [facility] Last Admin: 05/29/19 09:57 Dose: 100 mg Senna (Senna -) 1 tab PO DAILY [facility] Last Admin: 05/29/19 09:57 Dose: 1 tab Sodium Chloride ([place] Nasal [place] -) 2 spray NS BID PRN PRN Reason: NASAL CONGESTION Last Admin: 05/27/19 18:58 Dose: 2 spray Torsemide (Demadex -) 20 mg PO HS [facility] Last Admin: 05/28/19 22:11 Dose: 20 mg Valacyclovir HCl (Valtrex -) 500 mg PO BID [facility] Last Admin: 05/29/19 09:56 Dose: 500 mg Vancomycin HCl (Vancomycin Oral Solution) 125 mg PO Q6HPO [facility] Last Admin: 05/29/19 12:20 Dose: 125 mg - Objective Vital Signs: Vital Signs Temperature 97.8 F 05/29/19 09:00 Pulse Rate 74 05/29/19 09:00 Respiratory Rate 20 05/29/19 09:00 Blood Pressure 139/78 05/29/19 09:00 O2 Sat by Pulse Oximetry (%) 95 05/29/19 09:00 Constitutional: Yes: Calm, Mild Distress, Obese Cardiovascular: Yes: S1, S2 Respiratory: Yes: Regular, CTA Bilaterally Gastrointestinal: Yes: Normal Bowel Sounds, Soft Musculoskeletal: Yes: WNL Extremities: Yes: Other Neurological: Yes: Alert, Oriented Psychiatric: Yes: Alert, Oriented Labs: CBC, BMP 05/29/19 05:10 05/29/19 05:10 INR, PTT INR 1.67 (0.83-1.09) H 05/23/19 05:42 Assessment/Plan Problem List - Problems (1) Acute on chronic diastolic (congestive) heart failure Code(s): I50.33 - ACUTE ON CHRONIC DIASTOLIC (CONGESTIVE) HEART FAILURE (2) CML (chronic myelocytic leukemia) Code(s): C92.10 - CHRONIC MYELOID LEUK, BCR/ABL-POSITIVE, NOT ACHIEVE REMIS (3) Neutropenic fever Code(s): D70.9 - NEUTROPENIA, UNSPECIFIED; R50.81 - FEVER PRESENTING WITH CONDITIONS CLASSIFIED ELSEWHERE (4) Osteomyelitis Code(s): M86.9 - OSTEOMYELITIS, UNSPECIFIED Qualifiers: Osteomyelitis type: other acute Osteomyelitis location: multiple sites Qualified Code(s): M86.19 - Other acute osteomyelitis, multiple sites (5) Pulmonary hypertension Code(s): I27.20 - PULMONARY HYPERTENSION, UNSPECIFIED (6) Sepsis Code(s): A41.9 - SEPSIS, UNSPECIFIED ORGANISM Qualifiers: Sepsis type: sepsis due to unspecified organism Sepsis acute organ dysfunction status: unspecified Qualified Code(s): A41.9 - Sepsis, unspecified organism (7) Diabetic foot ulcer Code(s): E11.621 - TYPE 2 DIABETES MELLITUS WITH FOOT ULCER; L97.509 - NON- PRESSURE CHRONIC ULCER OTH PRT UNSP FOOT W UNSP SEVERITY Qualifiers: Diabetic foot ulcer location: heel Diabetes mellitus type: type 2 Laterality: unspecified laterality Non-pressure ulcer stage: unspecified non- pressure ulcer stage Qualified Code(s): E11.621 - Type 2 diabetes mellitus with foot ulcer; L97.409 - Non-pressure chronic ulcer of unspecified heel and midfoot with unspecified severity (8) A-fib Code(s): I48.91 - UNSPECIFIED ATRIAL FIBRILLATION Qualifiers: Atrial fibrillation type: chronic Qualified Code(s): I48.2 - Chronic atrial fibrillation (9) ASA (acute kidney injury) Code(s): N17.9 - ACUTE KIDNEY FAILURE, UNSPECIFIED (10) Altered mental status, unspecified Code(s): R41.82 - ALTERED MENTAL STATUS, UNSPECIFIED (11) COPD (chronic obstructive pulmonary disease) Code(s): J44.9 - CHRONIC OBSTRUCTIVE PULMONARY DISEASE, UNSPECIFIED (12) Cellulitis Code(s): L03.90 - CELLULITIS, UNSPECIFIED Qualifiers: Site of cellulitis: extremity Site of cellulitis of extremity: lower extremity Laterality: unspecified laterality Qualified Code(s): L03.119 - Cellulitis of unspecified part of limb (13) Chronic anemia Code(s): D64.9 - ANEMIA, UNSPECIFIED (14) Diabetic neuropathy Code(s): E11.40 - TYPE 2 DIABETES MELLITUS WITH DIABETIC NEUROPATHY, UNSP (15) HTN (hypertension) Code(s): I10 - ESSENTIAL (PRIMARY) HYPERTENSION (16) T2DM (type 2 diabetes mellitus) Code(s): E11.9 - TYPE 2 DIABETES MELLITUS WITHOUT COMPLICATIONS Qualifiers: Diabetes mellitus complication status: with neurologic complications (17) Osteomyelitis of foot Code(s): M86.9 - OSTEOMYELITIS, UNSPECIFIED Qualifiers: Laterality: right Assessment/Plan s/p Sepsis MRSA bacteremia LE cellulitis Infected foot ulcer/OM - s/p debridement and antibiotic implantation POD#2 Anemia - s/p PRBC transfusion Neutropenia s/p neupogen Acute on chronic HF ASA on CKD - improving CML MM AFIB Pulm HTN DM Morbid obesity hypothyroidism Rash - can not exclude allergic reaction SOB wound care continue current mgmt resp support diuresis if needed abx physio rest as per the team
--- NOTE | 2019-05-29 14:30 | PN ---
Teaching Attending Note Name of Resident: Lidia Segura ATTENDING PHYSICIAN STATEMENT I saw and evaluated the patient. I reviewed the resident's note and discussed the case with the resident. I agree with the resident's findings and plan as documented. SUBJECTIVE: Feels okay, mild SOB. No fever/chills. no cough/sputum. OBJECTIVE: Afebrile, Hemodynamically Stable. Last Vital Signs Temp Pulse Resp BP Pulse Ox 97.7 F 81 20 126/67 95 05/29/19 14:01 05/29/19 14:01 05/29/19 14:01 05/29/19 14:01 05/29/19 09:00 HEART: S1S2, RRR LUNGS: few basal crackles. ABDOMEN: Obese, soft, non-tender, normal BS EXTREMITIES: 3+ edema, erythema, chronic skin changes, R heel ulcer/foot dressed. NEURO: AAO x 3. Moving all 4 extremities. Laboratory Results - last 24 hr 05/22/19 05/28/19 05/28/19 15:45 16:55 21:57 WBC RBC Hgb Hct MCV MCH MCHC RDW Plt Count MPV Absolute Neuts (auto) Neutrophils % Lymphocytes % Monocytes % Eosinophils % Basophils % Nucleated RBC % Sodium Potassium Chloride Carbon Dioxide Anion Gap BUN Creatinine Est GFR (CKD-EPI)AfAm Est GFR (CKD-EPI)NonAf POC Glucometer 244 293 Random Glucose Calcium Total Bilirubin AST ALT Alkaline Phosphatase Total Protein Albumin Beta-(1,3)-D-Glucan < 31 05/29/19 05/29/19 05/29/19 05:10 05:10 05:47 WBC 6.6 RBC 2.33 L Hgb 7.1 L Hct 21.3 L MCV 91.2 MCH 30.6 MCHC 33.6 RDW 18.7 H Plt Count 106 L MPV 9.9 Absolute Neuts (auto) 5.8 Neutrophils % 88.1 H Lymphocytes % 3.8 L Monocytes % 6.3 Eosinophils % 1.7 Basophils % 0.1 Nucleated RBC % 0 Sodium 134 L Potassium 4.2 Chloride 104 Carbon Dioxide 22 Anion Gap 8 BUN 60.4 H Creatinine 1.7 H Est GFR (CKD-EPI)AfAm 34.80 Est GFR (CKD-EPI)NonAf 30.03 POC Glucometer 216 Random Glucose 219 H Calcium 7.8 L Total Bilirubin 0.3 AST 8 L ALT 15 Alkaline Phosphatase 146 H Total Protein 6.3 L Albumin 1.8 L Beta-(1,3)-D-Glucan Current Medications Generic Name Dose Route Start Last Admin Trade Name Freq PRN Reason Stop Dose Admin Acetaminophen 650 mg 05/25/19 14:25 Tylenol - PO Q4H PRN FEVER Albuterol Sulfate 1 puff 05/23/19 03:12 05/28/19 14:45 Ventolin Hfa Inhaler - IH 1 puff Q8H PRN Administration SHORTNESS OF BREATH Albuterol Sulfate 1 amp 05/28/19 16:00 05/29/19 11:20 Ventolin 0.083% Nebulizer Soln - NEB 1 amp RQID JOVITA Administration Apixaban 5 mg 05/23/19 10:00 05/28/19 11:26 Eliquis - PO 5 mg BID JOVITA Administration Artificial Tears 1 drop 05/24/19 10:00 05/29/19 09:56 Artificial Tears OU 1 drp QID JOVITA Administration Ascorbic Acid 1,000 mg 05/23/19 10:00 05/29/19 09:56 Vitamin C - PO 1,000 mg DAILY JOVITA Administration Bisacodyl 10 mg 05/23/19 03:12 Dulcolax Suppository - RC DAILY PRN CONSTIPATION Collagenase 1 applic 05/26/19 10:30 05/29/19 09:57 Santyl - TP 1 applic DAILY JOVITA Administration Protocol Diltiazem HCl 120 mg 05/23/19 10:00 05/29/19 09:56 Cardizem Cd - PO 120 mg DAILY JOVITA Administration Folic Acid 1 mg 05/23/19 10:00 05/29/19 09:56 Folic Acid - PO 1 mg DAILY JOVITA Administration Gabapentin 100 mg 05/23/19 06:00 05/29/19 05:57 Neurontin - PO 100 mg TID JOVITA Administration Piperacillin Sod/Tazobactam 50 mls @ 100 mls/hr 05/23/19 15:00 05/29/19 09:56 Sod 2.25 gm/ Dextrose IVPB 100 mls/hr Q6H-IV JOVITA Administration Protocol Insulin Aspart 1 vial 05/27/19 22:00 05/29/19 11:20 Novolog Vial Sliding Scale - SQ Not Given ACHS JOVITA Protocol Lactobacillus Acidophilus 1 tab 05/23/19 06:00 05/29/19 05:57 Bacid - PO 1 tab TID JOVITA Administration Levothyroxine Sodium 25 mcg 05/23/19 06:30 05/29/19 05:57 Synthroid - PO 25 mcg DAILY@0630 JOVITA Administration Magnesium Hydroxide 30 ml 05/24/19 07:07 Milk Of Magnesia - PO DAILY PRN CONSTIPATION Multi-Ingredient Lotion 1 applic 05/27/19 20:18 Eucerin (Large Jar) - TP DAILY PRN DRY SKIN Multivit/Ca Carb/B Cmplx/FA/Prenat 1 tablet 05/23/19 10:00 05/29/19 09:56 Nephro-Majo - PO 1 tablet DAILY JOVITA Administration Polyethylene Glycol 17 gm 05/23/19 10:00 05/29/19 09:56 Miralax (For Daily Use) - PO 17 gm DAILY JOVITA Administration Pyridoxine HCl 100 mg 05/23/19 10:00 05/29/19 09:57 Vitamin B6 - PO 100 mg DAILY JOVITA Administration Senna 1 tab 05/23/19 10:00 05/29/19 09:57 Senna - PO 1 tab DAILY JOVITA Administration Sodium Chloride 2 spray 05/27/19 13:25 05/27/19 18:58 [place] Nasal [place] - NS 2 spray BID PRN Administration NASAL CONGESTION Torsemide 20 mg 05/23/19 22:00 05/28/19 22:11 Demadex - PO 20 mg HS JOVITA Administration Valacyclovir HCl 500 mg 05/23/19 10:00 05/29/19 09:56 Valtrex - PO 500 mg BID JOVITA Administration Vancomycin HCl 125 mg 05/25/19 12:00 05/29/19 12:20 Vancomycin Oral Solution PO 125 mg Q6HPO JOVITA Administration Home Medications Medication Instructions Recorded Albuterol Sulfate 2.5 mg IH Q8H PRN 07/18/18 Ascorbic Acid [Vitamin C -] 1,000 mg PO DAILY 07/18/18 Gabapentin [Neurontin -] 100 mg PO TID 07/18/18 Ipratropium [place] 0.2 mg IH Q8H PRN 07/18/18 Vitamin B Complex 1 tab PO DAILY 07/18/18 Diltiazem Cd [Cardizem Cd -] 120 mg PO DAILY cap.cd.24h 07/23/18 Acetaminophen [Pain Relief] 650 mg PO Q6H PRN 07/29/18 Bisacodyl Suppository [Dulcolax 10 mg RC DAILY PRN 07/29/18 Suppository -] Insulin Lispro [Humalog Kwikpen 0 unit SQ ASDIR 07/29/18 U-100] Mag Hydrox/Al Hydrox/Simeth 30 ml PO DAILY PRN 07/29/18 [Mylanta Oral Suspension -] Folic Acid 1 mg PO DAILY 11/14/18 Pyridoxine HCl (B-6) [Vitamin B6 -] 100 mg PO DAILY 11/14/18 Sennosides [Senna Lax] 17.2 mg PO DAILY 11/14/18 Eliquis 5 mg PO BID 02/26/19 Glimepiride 1 mg PO AC 02/26/19 Torsemide 40 mg PO AM 02/26/19 Clindamycin [Cleocin -] 600 mg PO Q8H #42 capsule 05/19/19 Aa/Hydrolyzed Collagen, [place] [Lps 30 ml PO BID 05/23/19 15-30 Liquid] Collagenase Clostridium Hist. 1 applic TP DAILY 05/23/19 [Santyl] Cyclobenzaprine HCl [Flexeril -] 5 mg PO BID 05/23/19 Docusate Sodium [Colace] 300 mg PO DAILY 05/23/19 Fentanyl 1 each TD Q72H 05/23/19 Hydrocortisone [Preparation H] 26 gm RC DAILY 05/23/19 Imatinib Mesylate [Gleevec] 400 mg PO DAILY 05/23/19 Lactobacillus Acidophilus 1 each PO TID 05/23/19 [Acidophilus] Levothyroxine [Synthroid -] 25 mcg PO DAILY@0630 05/23/19 Lidocaine [Aspercreme] 1 each TP DAILY 05/23/19 Magnesium Hydroxide [Milk of 30 ml PO DAILY PRN 05/23/19 Magnesia] Menthol [[place] Ultra Strength] 1 each TP DAILY 05/23/19 Menthol/Camphor [[place] Anti-Itch 222 ml TP DAILY PRN 05/23/19 Lotion] Nystatin Powder [Nystop Topical 15 applic TP BID 05/23/19 Powder -] Oxycodone HCl 10 mg PO Q4HWA PRN 05/23/19 Pantoprazole Sodium [Protonix] 40 mg PO DAILY 05/23/19 Polyethylene Glycol 3350 [Miralax 17 gm PO DAILY 05/23/19 (For Daily Use) -] Polyvinyl Alcohol [Artificial 1 drop OU QID 05/23/19 Tears] Sodium Phosphate,[place]-Dibasic 133 ml RC PRN PRN 05/23/19 [Fleet Enema] Torsemide [Demadex -] 20 mg PO HS 05/23/19 Valacyclovir HCl [Valtrex] 500 mg PO BID 05/23/19 ASSESSMENT AND PLAN: 68 year old female with history of Multiple Myeloma, CML, DM 2, HTN, Atrial Fibrillation, Hypothyroidism, sent to the ED from [facility] for altered mental status. 1. Acute metabolic encephalopathy secondary to sepsis - Resolved 2. Neutropenic Sepsis secondary to bilateral LE Cellulitis, Osteomyelitis of right heel with overlying ulcer Wound Cx positive for MRSA/Pseudomonas - On IV Zosyn/Vanco. Cdiff negative, will discontinue oral Vanco. Further management as per ID and Podiatry - Scheduled debridement and implantation of antibiotic beads into calcaneus by podiatry 05/30. Will continue to hold eliquis. Wound care. 3. Neutropenia secondary to underlying MM/CML - resolved s/p Neupogen 4. Anemia sec to MM/CML - s/p 1 unit PRBCs. H/H stable. Further management as per Hematology. 5. Atrial Fibrillation - Continue Cardizem CD. Eliquis held. 6. ASA on CKD 3 - improving. Hold Torsemide. 7. HTN - on Cardizem. Torsemide held. 8. DM 2 - Novolog sliding scale. Oral diabetic medications held. 9. CML - Gleevec on hold 10. Multiple Myeloma - management as per Hematology. 11. Hypothyroidism - Continue Synthroid. DVT Px - on Eliquis.
--- NOTE | 2019-05-29 15:46 | PN ---
Progress Note (short form) - Note Progress Note: Podiatry F/U; Seen/evaluated at bedside NAD. On oxygen tx. Denies F/V/N/C. Afebrile. On IV abx. MELANI: Pedal pulses nonpalpable, TG wnl, CFT brisk to toes bilaterally. On the right nesha t is a plantar diabetic ulcer with fibrotic base, central aspect probes to bone, serous drainage, no purulence, no fluctuance, no streaking cellulitis, no signs of acute infection. Minimal tenderness to palpation. No acute ischemic changes to the foot. Imp: 68 year old diabetic female with right heel diabetic ulcer, chronic osteomyelitis, pancytopenia Evaluated and reviewed Will plan for antibiotic beads to be placed in calc tomorrow discussed with [facility] [place]; will be seeing patient today for clearance if stable on for tomorrow at 1230; if not cleared will hold until patient is stable from their point of view discussed with patient and she understands NPO past midnight in plan for OR Will follow.
--- NOTE | 2019-05-29 18:48 | PN ---
Physical Exam: SUBJECTIVE: Patient seen and examined. She reports shortness of breath and wheezing have improved with breathing treatments. No chest pain. Tolerating food well. OBJECTIVE: Vital Signs Period Temp Pulse Resp BP Sys/Machado Pulse Ox Last 24 Hr 97.5 F-97.9 F 74-81 20-22 119-146/55-86 95-95 GENERAL: The patient is somnolent but arousable, and fully oriented, in no acute distress. HEAD: Normal with no signs of trauma. EYES: PERRL, extraocular movements intact, sclera anicteric, conjunctiva clear. No ptosis. ENT: Ears normal, nares patent, moist mucous membranes. NECK: Trachea midline, full range of motion, supple. LUNGS: Breath sounds equal, clear to auscultation bilaterally, no wheezes, no crackles, no accessory muscle use. HEART: Regular rate and rhythm, S1, S2 without murmur, rub or gallop. ABDOMEN: Soft, nontender, nondistended, normoactive bowel sounds EXTREMITIES: 2+ pulses, warm, well-perfused, no edema, except for bilateral lower extremity erythema, +2 pitting edema with crusting on anterior aspect. Right foot plantar surface stage 4 ulcer as well as left plantar ulcer stage 3/ 4. NEUROLOGICAL: Cranial nerves II through XII grossly intact. Normal speech, gait not observed. PSYCH: Normal mood and affect. SKIN: Warm, dry, normal turgor, no rashes or lesions noted except as above Laboratory Results - last 24 hr 05/28/19 05/29/19 05/29/19 21:57 05:10 05:10 WBC 6.6 RBC 2.33 L Hgb 7.1 L Hct 21.3 L MCV 91.2 MCH 30.6 MCHC 33.6 RDW 18.7 H Plt Count 106 L MPV 9.9 Absolute Neuts (auto) 5.8 Neutrophils % 88.1 H Lymphocytes % 3.8 L Monocytes % 6.3 Eosinophils % 1.7 Basophils % 0.1 Nucleated RBC % 0 Sodium 134 L Potassium 4.2 Chloride 104 Carbon Dioxide 22 Anion Gap 8 BUN 60.4 H Creatinine 1.7 H Est GFR (CKD-EPI)AfAm 34.80 Est GFR (CKD-EPI)NonAf 30.03 POC Glucometer 293 Random Glucose 219 H Calcium 7.8 L Total Bilirubin 0.3 AST 8 L ALT 15 Alkaline Phosphatase 146 H Total Protein 6.3 L Albumin 1.8 L Random Vancomycin 05/29/19 05/29/19 05:47 14:04 WBC RBC Hgb Hct MCV MCH MCHC RDW Plt Count MPV Absolute Neuts (auto) Neutrophils % Lymphocytes % Monocytes % Eosinophils % Basophils % Nucleated RBC % Sodium Potassium Chloride Carbon Dioxide Anion Gap BUN Creatinine Est GFR (CKD-EPI)AfAm Est GFR (CKD-EPI)NonAf POC Glucometer 216 Random Glucose Calcium Total Bilirubin AST ALT Alkaline Phosphatase Total Protein Albumin Random Vancomycin 19.2 Active Medications Generic Name Dose Route Start Last Admin Trade Name Freq PRN Reason Stop Dose Admin Acetaminophen 650 mg 05/25/19 14:25 Tylenol - PO Q4H PRN FEVER Albuterol Sulfate 1 puff 05/23/19 03:12 05/28/19 14:45 Ventolin Hfa Inhaler - IH 1 puff Q8H PRN Administration SHORTNESS OF BREATH Albuterol Sulfate 1 amp 05/28/19 16:00 05/29/19 11:20 Ventolin 0.083% Nebulizer Soln - NEB 1 amp RQID JOVITA Administration Apixaban 5 mg 05/23/19 10:00 05/28/19 11:26 Eliquis - PO 5 mg BID JOVITA Administration Artificial Tears 1 drop 05/24/19 10:00 05/29/19 18:08 Artificial Tears OU 1 drp QID JOVITA Administration Ascorbic Acid 1,000 mg 05/23/19 10:00 05/29/19 09:56 Vitamin C - PO 1,000 mg DAILY JOVITA Administration Bisacodyl 10 mg 05/23/19 03:12 Dulcolax Suppository - RC DAILY PRN CONSTIPATION Collagenase 1 applic 05/26/19 10:30 05/29/19 09:57 Santyl - TP 1 applic DAILY JOVITA Administration Protocol Diltiazem HCl 120 mg 05/23/19 10:00 05/29/19 09:56 Cardizem Cd - PO 120 mg DAILY JOVITA Administration Folic Acid 1 mg 05/23/19 10:00 05/29/19 09:56 Folic Acid - PO 1 mg DAILY JOVITA Administration Gabapentin 100 mg 05/23/19 06:00 05/29/19 14:19 Neurontin - PO 100 mg TID JOVITA Administration Piperacillin Sod/Tazobactam 50 mls @ 100 mls/hr 05/23/19 15:00 05/29/19 16:19 Sod 2.25 gm/ Dextrose IVPB 100 mls/hr Q6H-IV JOVITA Administration Protocol Insulin Aspart 1 vial 05/27/19 22:00 05/29/19 11:20 Novolog Vial Sliding Scale - SQ Not Given ACHS JOVITA Protocol Lactobacillus Acidophilus 1 tab 05/23/19 06:00 05/29/19 14:19 Bacid - PO 1 tab TID JOVITA Administration Levothyroxine Sodium 25 mcg 05/23/19 06:30 05/29/19 05:57 Synthroid - PO 25 mcg DAILY@0630 JOVITA Administration Magnesium Hydroxide 30 ml 05/24/19 07:07 Milk Of Magnesia - PO DAILY PRN CONSTIPATION Multi-Ingredient Lotion 1 applic 05/27/19 20:18 Eucerin (Large Jar) - TP DAILY PRN DRY SKIN Multivit/Ca Carb/B Cmplx/FA/Prenat 1 tablet 05/23/19 10:00 05/29/19 09:56 Nephro-Majo - PO 1 tablet DAILY JOVITA Administration Polyethylene Glycol 17 gm 05/23/19 10:00 05/29/19 09:56 Miralax (For Daily Use) - PO 17 gm DAILY JOVITA Administration Pyridoxine HCl 100 mg 05/23/19 10:00 05/29/19 09:57 Vitamin B6 - PO 100 mg DAILY JOVITA Administration Senna 1 tab 05/23/19 10:00 05/29/19 09:57 Senna - PO 1 tab DAILY JOVITA Administration Sodium Chloride 2 spray 05/27/19 13:25 05/27/19 18:58 [place] Nasal [place] - NS 2 spray BID PRN Administration NASAL CONGESTION Torsemide 20 mg 05/23/19 22:00 05/28/19 22:11 Demadex - PO 20 mg HS JOVITA Administration Valacyclovir HCl 500 mg 05/23/19 10:00 05/29/19 09:56 Valtrex - PO 500 mg BID JOVITA Administration ASSESSMENT/PLAN: Ms. 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 She was brought from [facility] via EMS with complaints of feeling feverish for the past few days. #sepsis 2/2 bilateral LE cellulitis and right foot osteomyelitis WBC increased to 7.1 with ANC 5.8. Temp 101.4 at admission. MRI on 05/24/19 right foot showed significant cellulitis and osteomyelitis of calcaneus with no tendon/ligamentous tears. Wound culture positive Proteus mirabilis, Enterococcus , Pseudomonas, Enterobacter, MRSA. Blood cx MRSA. Urine cx negative. LA normal. -Zosyn day 7 -Vancomycin day 7 (vanc level 05/25/19 was 21.2) -caspofungin day 6 -tylenol -oxycodone 10mg Q4H PRN -neurontin -wound care-Santyl -ID consulted- continue abx -vascular consulted -podiatry- abx beads for osteo planned for tomorrow, will get clearance from heme #acute metabolic encephalopathy, resolved Pt is A&Ox3. Likely from sepsis. CT initially suspected acute infarct. MRI brain showed no acute changes. CT findings likely artifact. Diffuse microischemic changes. -neuro following -stroke workup initiated at admission- carotid doppler left common carotid bifurcation 50-69% stenosis; echo- LA mildly dilated, RV pressure elevated at > 60, severe mitral annular calcification, moderate TR, mild , EF not calculated , technically difficult study #anemia of chronic disease Hb 7.1 s/p PRBCs -heme- hold imatinib -recheck CBC in morning #pancytopenia hx of CML/MM -neupogen -heme/onc #ASA Cr 1.9. Renal U/S right nephrolithiasis without hydronephrosis. -gentle hydration #a-fib Echo- LA mildly dilated, RV pressure elevated at >60, severe mitral annular calcification, moderate TR, mild , EF not calculated, technically difficult study -Eliquis 5mg BID -diltiazem 120mg daily #DM HbA1c 6.0 -BGM -SSI #HTN -torsemide #COPD -albuterol -atrovent #HLD #hypothyroidism -Synthroid 25mcg daily #chronic constipation -bowel regimen FEN NS 83mL/hr monitor diabetic/Na controlled diet-NPO after midnight DVT Ppx Eliquis-held Visit type - Emergency Visit Emergency Visit: Yes ED Registration Date: 05/22/19 Care time: The patient presented to the Emergency Department on the above date and was hospitalized for further evaluation of their emergent condition. - New Patient This patient is new to me today: No - Critical Care Critical Care patient: No - Discharge Referral Referred to [facility] Med P.C.: No ATTENDING PHYSICIAN STATEMENT I saw and evaluated the patient. I reviewed the resident's note and discussed the case with the resident. I agree with the resident's findings and plan as documented. SUBJECTIVE: OBJECTIVE: ASSESSMENT AND PLAN:
--- NOTE | 2019-05-29 19:42 | PN ---
Progress Note (short form) - Note Progress Note: Patient seen and examined Podiatry planning procedure Platlets - adequate. WBC improved Hct declining and INR needs repeat Last Vital Signs Temp Pulse Resp BP Pulse Ox 97.7 F 81 20 126/67 95 05/29/19 14:01 05/29/19 14:01 05/29/19 14:01 05/29/19 14:01 05/29/19 09:00 HEENT: MICHELLE, EOM Intact Cor: RSR, No murmurs, No gallops Lungs: diminished breath sounds bilaterally Abd-obese LE edema, stasis Skin: Dressings LE CBC, BMP 05/29/19 05:10 05/29/19 05:10 INR, PTT INR 1.67 (0.83-1.09) H 05/23/19 05:42 Current Medications Generic Name Dose Route Start Last Admin Trade Name Freq PRN Reason Stop Dose Admin Acetaminophen 650 mg 05/25/19 14:25 Tylenol - PO Q4H PRN FEVER Albuterol Sulfate 1 puff 05/23/19 03:12 05/28/19 14:45 Ventolin Hfa Inhaler - IH 1 puff Q8H PRN Administration SHORTNESS OF BREATH Albuterol Sulfate 1 amp 05/28/19 16:00 05/29/19 16:25 Ventolin 0.083% Nebulizer Soln - NEB 1 amp RQID JOVITA Administration Apixaban 5 mg 05/23/19 10:00 05/28/19 11:26 Eliquis - PO 5 mg BID JOVITA Administration Artificial Tears 1 drop 05/24/19 10:00 05/29/19 18:08 Artificial Tears OU 1 drp QID JOVITA Administration Ascorbic Acid 1,000 mg 05/23/19 10:00 05/29/19 09:56 Vitamin C - PO 1,000 mg DAILY JOVITA Administration Bisacodyl 10 mg 05/23/19 03:12 Dulcolax Suppository - RC DAILY PRN CONSTIPATION Collagenase 1 applic 05/26/19 10:30 05/29/19 09:57 Santyl - TP 1 applic DAILY JOVITA Administration Protocol Diltiazem HCl 120 mg 05/23/19 10:00 05/29/19 09:56 Cardizem Cd - PO 120 mg DAILY JOVITA Administration Folic Acid 1 mg 05/23/19 10:00 05/29/19 09:56 Folic Acid - PO 1 mg DAILY JOVITA Administration Gabapentin 100 mg 05/23/19 06:00 05/29/19 14:19 Neurontin - PO 100 mg TID JOVITA Administration Piperacillin Sod/Tazobactam 50 mls @ 100 mls/hr 05/23/19 15:00 05/29/19 16:19 Sod 2.25 gm/ Dextrose IVPB 100 mls/hr Q6H-IV JOVITA Administration Protocol Insulin Aspart 1 vial 05/27/19 22:00 05/29/19 11:20 Novolog Vial Sliding Scale - SQ Not Given ACHS JOVITA Protocol Lactobacillus Acidophilus 1 tab 05/23/19 06:00 05/29/19 14:19 Bacid - PO 1 tab TID JOVITA Administration Levothyroxine Sodium 25 mcg 05/23/19 06:30 05/29/19 05:57 Synthroid - PO 25 mcg DAILY@0630 JOVITA Administration Magnesium Hydroxide 30 ml 05/24/19 07:07 Milk Of Magnesia - PO DAILY PRN CONSTIPATION Multi-Ingredient Lotion 1 applic 05/27/19 20:18 Eucerin (Large Jar) - TP DAILY PRN DRY SKIN Multivit/Ca Carb/B Cmplx/FA/Prenat 1 tablet 05/23/19 10:00 05/29/19 09:56 Nephro-Majo - PO 1 tablet DAILY JOVITA Administration Polyethylene Glycol 17 gm 05/23/19 10:00 05/29/19 09:56 Miralax (For Daily Use) - PO 17 gm DAILY JOVITA Administration Pyridoxine HCl 100 mg 05/23/19 10:00 05/29/19 09:57 Vitamin B6 - PO 100 mg DAILY JOVITA Administration Senna 1 tab 05/23/19 10:00 05/29/19 09:57 Senna - PO 1 tab DAILY JOVITA Administration Sodium Chloride 2 spray 05/27/19 13:25 05/27/19 18:58 [place] Nasal [place] - NS 2 spray BID PRN Administration NASAL CONGESTION Torsemide 20 mg 05/23/19 22:00 05/28/19 22:11 Demadex - PO 20 mg HS JOVITA Administration Valacyclovir HCl 500 mg 05/23/19 10:00 05/29/19 09:56 Valtrex - PO 500 mg BID JOVITA Administration Impression: Myeloma CML Neutropenia -resolved Anemia--will need transfusion Platelets- adequate Elevated INR--ck INR For surgical ab instillation.
[2019-05-30] MEDS ORDERED: PIPERACILLIN/TAZOBACTAM 2.25 GM VIAL IVPB ONE ×4 (02:37→20:54)
[2019-05-30] MEDS ORDERED: DEXTROSE 5%-WATER - 50 ML IVPB ONE ×4 (02:38→20:54)
[2019-05-30] MEDS: PIPERACILLIN/TAZOB 2.25 GM 2.25 GM in DEXTROSE 5%-WATER - 50 ML IVPB SCH ×4 (03:25→22:05)
[2019-05-30 06:19] LABS: BASO % 0.2 % (0-2.0); EOS % 1.9 % (0-4.5); HEMATOCRIT 20.1 % (32.4-45.2); LYMPH % 5.2 % (8-40); MCH 30.5 pg (25.7-33.7); MCHC 33.1 g/dl (32.0-36.0); MEAN PLT VOLUME 9.5 fl (7.5-11.1); MONO % 5.4 % (3.8-10.2); NEUT % 87.3 % (42.8-82.8); PLATELET COUNT 98 K/MM3 (134-434); RBC 2.19 M/mm3 (3.60-5.2); RDW 18.4 % (11.6-15.6); WHITE BLOOD COUNT 5.4 K/mm3 (4.0-10.0)
[2019-05-30 06:40] LABS: HEMOGLOBIN 6.7 GM/dL (10.7-15.3)
[2019-05-30 06:51] LABS: ALBUMIN 1.8 g/dl (3.4-5.0); BILIRUBIN,TOTAL 0.4 mg/dL (0.2-1); BLOOD UREA NITROGEN 60.2 mg/dL (7-18); CALCIUM 7.7 mg/dL (8.5-10.1); CREATININE 1.6 mg/dL (0.55-1.3); POTASSIUM 4.5 mmol/L (3.5-5.1); TOT PROT 6.2 g/dl (6.4-8.2)
[2019-05-30] MEDS: INSULIN SLIDING SCALE (NOVOLOG) 1 VIAL SQ SCH ×4 (06:51→22:03)
[2019-05-30] MEDS: LEVOTHYROXINE NA 25 MCG TABLET (FP) PO SCH (06:51)
[2019-05-30] MEDS: GABAPENTIN 100 MG CAPSULE (FP) PO SCH ×3 (06:51→22:04)
[2019-05-30] MEDS: LACTOBACILLUS ACIDOPHILUS 1 TABLET PO SCH ×3 (06:51→22:04)
[2019-05-30] MEDS: ALBUTEROL SO4 0.083% IH SOL 2.5 MG/3 ML VIAL.NEB. NEB SCH ×4 (08:45→19:56)
[2019-05-30 08:56] LABS: INR 1.28 (0.83-1.09); PROTHROMBIN TIME (PATIENT) 15.2 SEC (9.7-13.0)
[2019-05-30 09:57] LABS: ARTERIAL BLD GAS O2 SATURATION 99.8 % (95-98); ARTERIAL BLOOD GAS BASE EXCESS -3.1 meq/l (-2-2); ARTERIAL BLOOD GAS PCO2 35.6 mmHg (35-45); ARTERIAL BLOOD GAS PO2 119 mmHg (80-100); ARTERIAL BLOOD GAS pH 7.39 (7.35-7.45)
[2019-05-30] MEDS ORDERED: FUROSEMIDE 40 MG/4 ML INJECTABLE VIAL IVPUSH STA (10:10)
[2019-05-30] MEDS: PYRIDOXINE HCL (B-6) 100 MG TABLET PO SCH (10:45)
[2019-05-30 10:54] LABS: ALLENS TEST POSITIVE
[2019-05-30] MEDS: ASCORBIC ACID 500 MG TABLET (FP) PO SCH (11:10)
[2019-05-30] MEDS: valACYclovir HCL 500 MG TABLET (FP) PO SCH ×2 (11:10→22:04)
[2019-05-30] MEDS: FOLIC ACID 1 MG TABLET (FP) PO SCH (11:10)
[2019-05-30] MEDS: VITAMIN B COMP W-C 1 EA TABLET PO SCH (11:10)
[2019-05-30] MEDS: COLLAGENASE CLOSTRIDIUM HIST. 30 GRAMS TUBE TP SCH (11:11)
[2019-05-30] MEDS: POLYETHYLENE GLYCOL 3350 119 GM BTL PO SCH (11:11)
[2019-05-30] MEDS: ARTIFICIAL TEARS (POLYVINYL ALCOHOL) OPTH DROPS OU SCH ×4 (11:11→22:04)
[2019-05-30] MEDS: SENNOSIDES 8.6MG TABLET (FP) PO SCH (11:12)
--- NOTE | 2019-05-30 11:28 | PN ---
Physical Exam: SUBJECTIVE: Patient seen and examined. Pt reports shortness of breath. Denies n/ v/d. OBJECTIVE: Vital Signs Period Temp Pulse Resp BP Sys/Machado Pulse Ox Last 24 Hr 97.5 F-97.7 F 80-81 20-20 123-136/66-79 98 GENERAL: The patient is alert, and fully oriented, in no acute distress. HEAD: Normal with no signs of trauma. EYES: PERRL, extraocular movements intact, sclera anicteric, conjunctiva clear. No ptosis. ENT: Ears normal, nares patent, moist mucous membranes. NECK: Trachea midline, full range of motion, supple. LUNGS: crackles at bases HEART: Regular rate and rhythm, S1, S2 without murmur, rub or gallop. ABDOMEN: Soft, nontender, nondistended, normoactive bowel sounds EXTREMITIES: 2+ pulses, warm, well-perfused, no edema, except for bilateral lower extremity erythema, +2 pitting edema with crusting on anterior aspect. Right foot plantar surface stage 4 ulcer as well as left plantar ulcer stage 3/ 4. NEUROLOGICAL: Cranial nerves II through XII grossly intact. Normal speech, gait not observed. PSYCH: Normal mood and affect. SKIN: Warm, dry, normal turgor, no rashes or lesions noted except as above Laboratory Results - last 24 hr 05/29/19 05/29/19 05/29/19 14:04 21:15 21:39 WBC RBC Hgb Hct MCV MCH MCHC RDW Plt Count MPV Absolute Neuts (auto) Neutrophils % Lymphocytes % Monocytes % Eosinophils % Basophils % Nucleated RBC % PT with INR INR PTT (Actin FS) 37.5 H Puncture Site ABG pH ABG pCO2 at Pt Temp ABG pO2 at Pt Temp ABG HCO3 ABG O2 Sat (Measured) ABG O2 Content ABG Base Excess Omega Test Oxygen Flow Rate Sodium Potassium Chloride Carbon Dioxide Anion Gap BUN Creatinine Est GFR (CKD-EPI)AfAm Est GFR (CKD-EPI)NonAf POC Glucometer 271 Random Glucose Calcium Total Bilirubin AST ALT Alkaline Phosphatase Total Protein Albumin Random Vancomycin 19.2 Blood Type Antibody Screen Antibody Identification Antigen Identification Crossmatch 05/30/19 05/30/19 05/30/19 05:20 05:20 05:48 WBC 5.4 RBC 2.19 L Hgb 6.7 L* Hct 20.1 L MCV 92.0 MCH 30.5 MCHC 33.1 RDW 18.4 H Plt Count 98 L MPV 9.5 Absolute Neuts (auto) 4.7 Neutrophils % 87.3 H Lymphocytes % 5.2 L D Monocytes % 5.4 Eosinophils % 1.9 Basophils % 0.2 Nucleated RBC % 0 PT with INR INR PTT (Actin FS) Puncture Site ABG pH ABG pCO2 at Pt Temp ABG pO2 at Pt Temp ABG HCO3 ABG O2 Sat (Measured) ABG O2 Content ABG Base Excess Omega Test Oxygen Flow Rate Sodium 137 Potassium 4.5 Chloride 107 Carbon Dioxide 23 Anion Gap 7 L BUN 60.2 H Creatinine 1.6 H Est GFR (CKD-EPI)AfAm 37.45 Est GFR (CKD-EPI)NonAf 32.31 POC Glucometer 208 Random Glucose 227 H Calcium 7.7 L Total Bilirubin 0.4 AST 8 L ALT 12 L Alkaline Phosphatase 132 H Total Protein 6.2 L Albumin 1.8 L Random Vancomycin Blood Type Antibody Screen Antibody Identification Antigen Identification Crossmatch 05/30/19 05/30/19 05/30/19 07:08 07:08 09:07 WBC RBC Hgb Hct MCV MCH MCHC RDW Plt Count MPV Absolute Neuts (auto) Neutrophils % Lymphocytes % Monocytes % Eosinophils % Basophils % Nucleated RBC % PT with INR 15.20 H INR 1.28 H PTT (Actin FS) Puncture Site Right brachial ABG pH 7.39 ABG pCO2 at Pt Temp 35.6 ABG pO2 at Pt Temp 119 H ABG HCO3 21.2 L ABG O2 Sat (Measured) 99.8 H ABG O2 Content 2.8 ABG Base Excess -3.1 L Omega Test Positive Oxygen Flow Rate Ye Sodium Potassium Chloride Carbon Dioxide Anion Gap BUN Creatinine Est GFR (CKD-EPI)AfAm Est GFR (CKD-EPI)NonAf POC Glucometer Random Glucose Calcium Total Bilirubin AST ALT Alkaline Phosphatase Total Protein Albumin Random Vancomycin Blood Type O POSITIVE Antibody Screen Positive Antibody Identification Daratumuma Antigen Identification No Result Required. Crossmatch See Detail Active Medications Generic Name Dose Route Start Last Admin Trade Name Freq PRN Reason Stop Dose Admin Acetaminophen 650 mg 05/25/19 14:25 Tylenol - PO Q4H PRN FEVER Albuterol Sulfate 1 puff 05/23/19 03:12 05/28/19 14:45 Ventolin Hfa Inhaler - IH 1 puff Q8H PRN Administration SHORTNESS OF BREATH Albuterol Sulfate 1 amp 05/28/19 16:00 05/30/19 08:45 Ventolin 0.083% Nebulizer Soln - NEB 1 amp RQID JOVITA Administration Apixaban 5 mg 05/23/19 10:00 05/28/19 11:26 Eliquis - PO 5 mg BID JOVITA Administration Artificial Tears 1 drop 05/24/19 10:00 05/30/19 11:11 Artificial Tears OU 1 drp QID JOVITA Administration Ascorbic Acid 1,000 mg 05/23/19 10:00 05/30/19 11:10 Vitamin C - PO 1,000 mg DAILY JOVITA Administration Bisacodyl 10 mg 05/23/19 03:12 Dulcolax Suppository - RC DAILY PRN CONSTIPATION Collagenase 1 applic 05/26/19 10:30 05/30/19 11:11 Santyl - TP 1 applic DAILY JOVITA Administration Protocol Diltiazem HCl 120 mg 05/23/19 10:00 05/30/19 11:10 Cardizem Cd - PO 120 mg DAILY JOVITA Administration Folic Acid 1 mg 05/23/19 10:00 05/30/19 11:10 Folic Acid - PO 1 mg DAILY JOVITA Administration Gabapentin 100 mg 05/23/19 06:00 05/30/19 06:51 Neurontin - PO 100 mg TID JOVITA Administration Piperacillin Sod/Tazobactam 50 mls @ 100 mls/hr 05/23/19 15:00 05/30/19 11:09 Sod 2.25 gm/ Dextrose IVPB 100 mls/hr Q6H-IV JOVITA Administration Protocol Insulin Aspart 1 vial 05/27/19 22:00 05/30/19 06:51 Novolog Vial Sliding Scale - SQ 4 units ACHS JOVITA Administration Protocol Lactobacillus Acidophilus 1 tab 05/23/19 06:00 05/30/19 06:51 Bacid - PO 1 tab TID JOVITA Administration Levothyroxine Sodium 25 mcg 05/23/19 06:30 05/30/19 06:51 Synthroid - PO 25 mcg DAILY@0630 JOVITA Administration Magnesium Hydroxide 30 ml 05/24/19 07:07 Milk Of Magnesia - PO DAILY PRN CONSTIPATION Multi-Ingredient Lotion 1 applic 05/27/19 20:18 Eucerin (Large Jar) - TP DAILY PRN DRY SKIN Multivit/Ca Carb/B Cmplx/FA/Prenat 1 tablet 05/23/19 10:00 05/30/19 11:10 Nephro-Majo - PO 1 tablet DAILY JOVITA Administration Polyethylene Glycol 17 gm 05/23/19 10:00 05/30/19 11:11 Miralax (For Daily Use) - PO Not Given DAILY JOVITA Pyridoxine HCl 100 mg 05/23/19 10:00 05/29/19 09:57 Vitamin B6 - PO 100 mg DAILY JOVITA Administration Senna 1 tab 05/23/19 10:00 05/30/19 11:12 Senna - PO Not Given DAILY JOVITA Sodium Chloride 2 spray 05/27/19 13:25 05/27/19 18:58 [place] Nasal [place] - NS 2 spray BID PRN Administration NASAL CONGESTION Torsemide 20 mg 05/23/19 22:00 05/28/19 22:11 Demadex - PO 20 mg HS JOVITA Administration Valacyclovir HCl 500 mg 05/23/19 10:00 05/30/19 11:10 Valtrex - PO 500 mg BID JOVITA Administration ASSESSMENT/PLAN: Ms. 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 She was brought from [facility] via EMS with complaints of feeling feverish for the past few days. #sepsis 2/2 bilateral LE cellulitis and right foot osteomyelitis WBC increased to 7.1 with ANC 5.8. Temp 101.4 at admission. MRI on 05/24/19 right foot showed significant cellulitis and osteomyelitis of calcaneus with no tendon/ligamentous tears. Wound culture positive Proteus mirabilis, Enterococcus , Pseudomonas, Enterobacter, MRSA. Blood cx MRSA. Urine cx negative. LA normal. -Zosyn day 8 -Vancomycin day 8 (vanc level 05/25/19 was 21.2), vanc level ordered -caspofungin day 7 -tylenol -oxycodone 10mg Q4H PRN -neurontin -wound care-Santyl -ID consulted- continue abx -vascular consulted -podiatry- abx beads for calcaneus planned when stable for procedure -INR #acute metabolic encephalopathy, resolved Pt is A&Ox3. Likely from sepsis. CT initially suspected acute infarct. MRI brain showed no acute changes. CT findings likely artifact. Diffuse microischemic changes. -neuro following -stroke workup initiated at admission- carotid doppler left common carotid bifurcation 50-69% stenosis; echo- LA mildly dilated, RV pressure elevated at > 60, severe mitral annular calcification, moderate TR, mild , EF not calculated , technically difficult study #anemia of chronic disease Hb 6.7. PRBCs 05/25 and today. Ab positive for type and cross due to daratumumab. -PRBCs ordered -heme- hold imatinib -recheck CBC #pancytopenia hx of CML/MM -neupogen -heme/onc #ASA Cr 1.6. Renal U/S right nephrolithiasis without hydronephrosis. -gentle hydration #a-fib Echo- LA mildly dilated, RV pressure elevated at >60, severe mitral annular calcification, moderate TR, mild , EF not calculated, technically difficult study -Eliquis 5mg BID-held -diltiazem 120mg daily #DM HbA1c 6.0 -BGM -SSI #HTN -torsemide #COPD -albuterol -atrovent #HLD #hypothyroidism -Synthroid 25mcg daily #chronic constipation -bowel regimen FEN NS 83mL/hr monitor diabetic/Na controlled diet-NPO after midnight DVT Ppx Eliquis-held Visit type - Emergency Visit Emergency Visit: Yes ED Registration Date: 05/22/19 Care time: The patient presented to the Emergency Department on the above date and was hospitalized for further evaluation of their emergent condition. - New Patient This patient is new to me today: No - Critical Care Critical Care patient: No - Discharge Referral Referred to [facility] Med P.C.: No ATTENDING PHYSICIAN STATEMENT I saw and evaluated the patient. I reviewed the resident's note and discussed the case with the resident. I agree with the resident's findings and plan as documented. SUBJECTIVE: OBJECTIVE: ASSESSMENT AND PLAN:
--- NOTE | 2019-05-30 12:28 | CON.PULM ---
Consult Consult Specialty:: PULMONARY Referred by:: Dr Cosby Reason for Consultation:: shortness of breath - History of Present Illness Chief Complaint: altered mental status History of Present Illness: 68yo female with h/o multiple myeloma, CML, atrial fibrillation, DM who was admitted from the long-term for lethargy and fevers. Found to have lower extremity cellulitis and osteomyelitis, started on antibiotics. Was on neupogen for neutropenia. Pt states her breathing has been getting progressively worse for the past 3 days. Denies chest pain or palpitations. +nonproductive cough. History difficult to obtain as she is somnolent but arousable. ABG without acute acidosis. CXR with hilar prominence. - Past Medical History [employer] HAND: Yes: Dementia Cardio/Vascular: Yes: HTN, Hyperlipdemia, Murmur, Pulmonary Hypertension Pulmonary: Yes: COPD Gastrointestinal: Yes: Constipation Hepatobiliary: Yes: Cholelithiasis, Cholecystitis, Choledocholithiasis (03/17 biliary pancreatitis requiring ERCP,sphincteorotomy, stenitng and stone extraction), Other Renal/: Yes: Renal Calculi ...: No Musculoskeletal: Yes: Chronic low back pain (sciatica due to lumbar disc disease ) Endocrine: Yes: Diabetes Mellitus, Hypothyroidism Dermatology: Yes: Other (bilateral lymphedema) Additional Medical History: Diabetic retinopathy. 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 History of Recent Travel: No Home Medications - Allergies Allergies/Adverse Reactions: Allergies Allergy/AdvReac Type Severity Reaction Status Date / Time metronidazole [From Flagyl] Allergy Severe Rash Verified 05/18/19 21:13 metoprolol Allergy Intermediate Rash Verified 05/18/19 21:13 - Home Medications Home Medications: Ambulatory Orders Albuterol Sulfate 2.5 mg IH Q8H PRN 07/18/18 Ascorbic Acid [Vitamin C -] 1,000 mg PO DAILY 07/18/18 Gabapentin [Neurontin -] 100 mg PO TID 07/18/18 Ipratropium [place] 0.2 mg IH Q8H PRN 07/18/18 Vitamin B Complex 1 tab PO DAILY 07/18/18 Diltiazem Cd [Cardizem Cd -] 120 mg PO DAILY cap.cd.24h 07/23/18 Acetaminophen [Pain Relief] 650 mg PO Q6H PRN 07/29/18 Bisacodyl Suppository [Dulcolax Suppository -] 10 mg RC DAILY PRN 07/29/18 Insulin Lispro [Humalog Kwikpen U-100] 0 unit SQ ASDIR 07/29/18 Mag Hydrox/Al Hydrox/Simeth [Mylanta Oral Suspension -] 30 ml PO DAILY PRN 07/29 Folic Acid 1 mg PO DAILY 11/14/18 Pyridoxine HCl (B-6) [Vitamin B6 -] 100 mg PO DAILY 11/14/18 Sennosides [Senna Lax] 17.2 mg PO DAILY 11/14/18 Eliquis 5 mg PO BID 02/26/19 Glimepiride 1 mg PO AC 02/26/19 Torsemide 40 mg PO AM 02/26/19 Clindamycin [Cleocin -] 600 mg PO Q8H #42 capsule 05/19/19 Aa/Hydrolyzed Collagen, Whey [Lps 15-30 Liquid] 30 ml PO BID 05/23/19 Collagenase Clostridium Hist. [Santyl] 1 applic TP DAILY 05/23/19 Cyclobenzaprine HCl [Flexeril -] 5 mg PO BID 05/23/19 Docusate Sodium [Colace] 300 mg PO DAILY 05/23/19 Fentanyl 1 each TD Q72H 05/23/19 Hydrocortisone [Preparation H] 26 gm RC DAILY 05/23/19 Imatinib Mesylate [Gleevec] 400 mg PO DAILY 05/23/19 Lactobacillus Acidophilus [Acidophilus] 1 each PO TID 05/23/19 Levothyroxine [Synthroid -] 25 mcg PO DAILY@0630 05/23/19 Lidocaine [Aspercreme] 1 each TP DAILY 05/23/19 Magnesium Hydroxide [Milk of Magnesia] 30 ml PO DAILY PRN 05/23/19 Menthol [Bengay Ultra Strength] 1 each TP DAILY 05/23/19 Menthol/Camphor [Sarna Anti-Itch Lotion] 222 ml TP DAILY PRN 05/23/19 Nystatin Powder [Nystop Topical Powder -] 15 applic TP BID 05/23/19 Oxycodone HCl 10 mg PO Q4HWA PRN 05/23/19 Pantoprazole Sodium [Protonix] 40 mg PO DAILY 05/23/19 Polyethylene Glycol 3350 [Miralax (For Daily Use) -] 17 gm PO DAILY 05/23/19 Polyvinyl Alcohol [Artificial Tears] 1 drop OU QID 05/23/19 Sodium Phosphate,[place]-Dibasic [Fleet Enema] 133 ml RC PRN PRN 05/23/19 Torsemide [Demadex -] 20 mg PO HS 05/23/19 Valacyclovir HCl [Valtrex] 500 mg PO BID 05/23/19 Review of Systems Unable to obtain ROS, reason: pt lethargic Physical Exam Vital Sings: Vital Signs Temperature 97.5 F L 05/30/19 06:00 Pulse Rate 81 05/30/19 06:00 Respiratory Rate 20 05/30/19 06:00 Blood Pressure 135/66 05/30/19 06:00 O2 Sat by Pulse Oximetry (%) 100 05/30/19 11:00 Constitutional: Yes: Mild Distress Eyes: Yes: Conjunctiva Clear, EOM Intact HENT: Yes: Atraumatic, Normocephalic Neck: Yes: Supple, Trachea Midline Cardiovascular: Yes: Regular Rate and Rhythm Respiratory: Yes: Diminished (decreased breath sounds at the bases) ...Clubbing: No Gastrointestinal: Yes: Normal Bowel Sounds, Soft. No: Tenderness Edema: Yes Neurological: Yes: Lethargy Labs: CBC, BMP 05/30/19 05:20 05/30/19 05:20 ABG Results ABG pH 7.39 (7.35-7.45) 05/30/19 09:07 ABG pCO2 at Pt Temp 35.6 mmHg (35-45) 05/30/19 09:07 ABG pO2 at Pt Temp 119 mmHg (80-100) H 05/30/19 09:07 ABG HCO3 21.2 mmol/L (22-27) L 05/30/19 09:07 ABG O2 Sat (Measured) 99.8 % (95-98) H 05/30/19 09:07 ABG O2 Content 2.8 % vol 05/30/19 09:07 ABG Base Excess -3.1 meq/l (-2-2) L 05/30/19 09:07 Imaging - Results Chest X-ray: Report Reviewed, Image Reviewed (pulmonary vascular congestion) Problem List - Problems (1) Acute on chronic diastolic (congestive) heart failure Code(s): I50.33 - ACUTE ON CHRONIC DIASTOLIC (CONGESTIVE) HEART FAILURE (2) Pulmonary hypertension Code(s): I27.20 - PULMONARY HYPERTENSION, UNSPECIFIED Assessment/Plan Altered Mental Status Acute on Chronic Diastolic Heart Failure Pulmonary HTN Volume Overload Cellulitis Osteomyelitis Sepsis Acute on Chronic Renal Failure Atrial Fibrillation Multiple Myeloma CML HTN DM Hypothyroidism Anemia Morbid Obesity - IV lasix - monitor urine output, creatinine - daily weights, last recorded weight on 05/24 114kg, admission weight 104kg - transfuse PRBC - monitor H/H - rate control - continue anticoagulation - O2 to keep SpO2 >90% - BiPAP to assist in work of breathing - continue antibiotics/wound care Thank you for this consult Alessandro Colby MD
[2019-05-30] MEDS ORDERED: FUROSEMIDE 40 MG/4 ML INJECTABLE VIAL IVPUSH ONE (14:47)
--- NOTE | 2019-05-30 15:01 | PN ---
Teaching Attending Note Name of Resident: Lidia Segura ATTENDING PHYSICIAN STATEMENT I saw and evaluated the patient. I reviewed the resident's note and discussed the case with the resident. I agree with the resident's findings and plan as documented. SUBJECTIVE: More SOB, somnolent. No fever/chills. No cough/sputum. OBJECTIVE: Afebrile, Hemodynamically Stable. SpO2 100% on 2L via NC Last Vital Signs Temp Pulse Resp BP Pulse Ox 97.5 F L 81 20 135/66 100 05/30/19 06:00 05/30/19 06:00 05/30/19 06:00 05/30/19 06:00 05/30/19 11:00 HEART: S1S2, RRR LUNGS: few basal crackles. ABDOMEN: Obese, soft, non-tender, normal BS EXTREMITIES: 3+ edema, erythema, chronic skin changes, R heel ulcer/foot dressed. NEURO: Lethargic, rousable to O x 3. Moving all 4 extremities. Laboratory Results - last 24 hr 05/29/19 05/29/19 05/29/19 14:04 21:15 21:39 WBC RBC Hgb Hct MCV MCH MCHC RDW Plt Count MPV Absolute Neuts (auto) Neutrophils % Lymphocytes % Monocytes % Eosinophils % Basophils % Nucleated RBC % PT with INR INR PTT (Actin FS) 37.5 H Puncture Site ABG pH ABG pCO2 at Pt Temp ABG pO2 at Pt Temp ABG HCO3 ABG O2 Sat (Measured) ABG O2 Content ABG Base Excess Omega Test Oxygen Flow Rate Sodium Potassium Chloride Carbon Dioxide Anion Gap BUN Creatinine Est GFR (CKD-EPI)AfAm Est GFR (CKD-EPI)NonAf POC Glucometer 271 Random Glucose Calcium Total Bilirubin AST ALT Alkaline Phosphatase Total Protein Albumin Random Vancomycin 19.2 Blood Type Antibody Screen Antibody Identification Antigen Identification Crossmatch 05/30/19 05/30/19 05/30/19 05:20 05:20 05:48 WBC 5.4 RBC 2.19 L Hgb 6.7 L* Hct 20.1 L MCV 92.0 MCH 30.5 MCHC 33.1 RDW 18.4 H Plt Count 98 L MPV 9.5 Absolute Neuts (auto) 4.7 Neutrophils % 87.3 H Lymphocytes % 5.2 L D Monocytes % 5.4 Eosinophils % 1.9 Basophils % 0.2 Nucleated RBC % 0 PT with INR INR PTT (Actin FS) Puncture Site ABG pH ABG pCO2 at Pt Temp ABG pO2 at Pt Temp ABG HCO3 ABG O2 Sat (Measured) ABG O2 Content ABG Base Excess Omega Test Oxygen Flow Rate Sodium 137 Potassium 4.5 Chloride 107 Carbon Dioxide 23 Anion Gap 7 L BUN 60.2 H Creatinine 1.6 H Est GFR (CKD-EPI)AfAm 37.45 Est GFR (CKD-EPI)NonAf 32.31 POC Glucometer 208 Random Glucose 227 H Calcium 7.7 L Total Bilirubin 0.4 AST 8 L ALT 12 L Alkaline Phosphatase 132 H Total Protein 6.2 L Albumin 1.8 L Random Vancomycin Blood Type Antibody Screen Antibody Identification Antigen Identification Crossmatch 05/30/19 05/30/19 05/30/19 07:08 07:08 09:07 WBC RBC Hgb Hct MCV MCH MCHC RDW Plt Count MPV Absolute Neuts (auto) Neutrophils % Lymphocytes % Monocytes % Eosinophils % Basophils % Nucleated RBC % PT with INR 15.20 H INR 1.28 H PTT (Actin FS) Puncture Site Right brachial ABG pH 7.39 ABG pCO2 at Pt Temp 35.6 ABG pO2 at Pt Temp 119 H ABG HCO3 21.2 L ABG O2 Sat (Measured) 99.8 H ABG O2 Content 2.8 ABG Base Excess -3.1 L Omega Test Positive Oxygen Flow Rate Ye Sodium Potassium Chloride Carbon Dioxide Anion Gap BUN Creatinine Est GFR (CKD-EPI)AfAm Est GFR (CKD-EPI)NonAf POC Glucometer Random Glucose Calcium Total Bilirubin AST ALT Alkaline Phosphatase Total Protein Albumin Random Vancomycin Blood Type O POSITIVE Antibody Screen Positive Antibody Identification Daratumuma Antigen Identification No Result Required. Crossmatch See Detail Current Medications Generic Name Dose Route Start Last Admin Trade Name Freq PRN Reason Stop Dose Admin Acetaminophen 650 mg 05/25/19 14:25 Tylenol - PO Q4H PRN FEVER Albuterol Sulfate 1 puff 05/23/19 03:12 05/28/19 14:45 Ventolin Hfa Inhaler - IH 1 puff Q8H PRN Administration SHORTNESS OF BREATH Albuterol Sulfate 1 amp 05/28/19 16:00 05/30/19 12:50 Ventolin 0.083% Nebulizer Soln - NEB 1 amp RQID JOVITA Administration Apixaban 5 mg 05/23/19 10:00 05/28/19 11:26 Eliquis - PO 5 mg BID JOVITA Administration Artificial Tears 1 drop 05/24/19 10:00 05/30/19 11:11 Artificial Tears OU 1 drp QID JOVITA Administration Ascorbic Acid 1,000 mg 05/23/19 10:00 05/30/19 11:10 Vitamin C - PO 1,000 mg DAILY JOVITA Administration Bisacodyl 10 mg 05/23/19 03:12 Dulcolax Suppository - RC DAILY PRN CONSTIPATION Collagenase 1 applic 05/26/19 10:30 05/30/19 11:11 Santyl - TP 1 applic DAILY JOVITA Administration Protocol Diltiazem HCl 120 mg 05/23/19 10:00 05/30/19 11:10 Cardizem Cd - PO 120 mg DAILY JOVITA Administration Folic Acid 1 mg 05/23/19 10:00 05/30/19 11:10 Folic Acid - PO 1 mg DAILY JOVITA Administration Gabapentin 100 mg 05/23/19 06:00 05/30/19 06:51 Neurontin - PO 100 mg TID JOVITA Administration Piperacillin Sod/Tazobactam 50 mls @ 100 mls/hr 05/23/19 15:00 05/30/19 11:09 Sod 2.25 gm/ Dextrose IVPB 100 mls/hr Q6H-IV JOVITA Administration Protocol Insulin Aspart 1 vial 05/27/19 22:00 05/30/19 06:51 Novolog Vial Sliding Scale - SQ 4 units ACHS JOVITA Administration Protocol Lactobacillus Acidophilus 1 tab 05/23/19 06:00 05/30/19 06:51 Bacid - PO 1 tab TID JOVITA Administration Levothyroxine Sodium 25 mcg 05/23/19 06:30 05/30/19 06:51 Synthroid - PO 25 mcg DAILY@0630 JOVITA Administration Magnesium Hydroxide 30 ml 05/24/19 07:07 Milk Of Magnesia - PO DAILY PRN CONSTIPATION Multi-Ingredient Lotion 1 applic 05/27/19 20:18 Eucerin (Large Jar) - TP DAILY PRN DRY SKIN Multivit/Ca Carb/B Cmplx/FA/Prenat 1 tablet 05/23/19 10:00 05/30/19 11:10 Nephro-Majo - PO 1 tablet DAILY JOVITA Administration Polyethylene Glycol 17 gm 05/23/19 10:00 05/30/19 11:11 Miralax (For Daily Use) - PO Not Given DAILY JOVITA Pyridoxine HCl 100 mg 05/23/19 10:00 05/29/19 09:57 Vitamin B6 - PO 100 mg DAILY JOVITA Administration Senna 1 tab 05/23/19 10:00 05/30/19 11:12 Senna - PO Not Given DAILY JOVITA Sodium Chloride 2 spray 05/27/19 13:25 05/27/19 18:58 [place] Nasal [place] - NS 2 spray BID PRN Administration NASAL CONGESTION Torsemide 20 mg 05/23/19 22:00 05/28/19 22:11 Demadex - PO 20 mg HS JOVITA Administration Valacyclovir HCl 500 mg 05/23/19 10:00 05/30/19 11:10 Valtrex - PO 500 mg BID JOVITA Administration Home Medications Medication Instructions Recorded Albuterol Sulfate 2.5 mg IH Q8H PRN 07/18/18 Ascorbic Acid [Vitamin C -] 1,000 mg PO DAILY 07/18/18 Gabapentin [Neurontin -] 100 mg PO TID 07/18/18 Ipratropium [place] 0.2 mg IH Q8H PRN 07/18/18 Vitamin B Complex 1 tab PO DAILY 07/18/18 Diltiazem Cd [Cardizem Cd -] 120 mg PO DAILY cap.cd.24h 07/23/18 Acetaminophen [Pain Relief] 650 mg PO Q6H PRN 07/29/18 Bisacodyl Suppository [Dulcolax 10 mg RC DAILY PRN 07/29/18 Suppository -] Insulin Lispro [Humalog Kwikpen 0 unit SQ ASDIR 07/29/18 U-100] Mag Hydrox/Al Hydrox/Simeth 30 ml PO DAILY PRN 07/29/18 [Mylanta Oral Suspension -] Folic Acid 1 mg PO DAILY 11/14/18 Pyridoxine HCl (B-6) [Vitamin B6 -] 100 mg PO DAILY 11/14/18 Sennosides [Senna Lax] 17.2 mg PO DAILY 11/14/18 Eliquis 5 mg PO BID 02/26/19 Glimepiride 1 mg PO AC 02/26/19 Torsemide 40 mg PO AM 02/26/19 Clindamycin [Cleocin -] 600 mg PO Q8H #42 capsule 05/19/19 Aa/Hydrolyzed Collagen, Whey [Lps 30 ml PO BID 05/23/19 15-30 Liquid] Collagenase Clostridium Hist. 1 applic TP DAILY 05/23/19 [Santyl] Cyclobenzaprine HCl [Flexeril -] 5 mg PO BID 05/23/19 Docusate Sodium [Colace] 300 mg PO DAILY 05/23/19 Fentanyl 1 each TD Q72H 05/23/19 Hydrocortisone [Preparation H] 26 gm RC DAILY 05/23/19 Imatinib Mesylate [Gleevec] 400 mg PO DAILY 05/23/19 Lactobacillus Acidophilus 1 each PO TID 05/23/19 [Acidophilus] Levothyroxine [Synthroid -] 25 mcg PO DAILY@0630 05/23/19 Lidocaine [Aspercreme] 1 each TP DAILY 05/23/19 Magnesium Hydroxide [Milk of 30 ml PO DAILY PRN 05/23/19 Magnesia] Menthol [Bengay Ultra Strength] 1 each TP DAILY 05/23/19 Menthol/Camphor [Sarna Anti-Itch 222 ml TP DAILY PRN 05/23/19 Lotion] Nystatin Powder [Nystop Topical 15 applic TP BID 05/23/19 Powder -] Oxycodone HCl 10 mg PO Q4HWA PRN 05/23/19 Pantoprazole Sodium [Protonix] 40 mg PO DAILY 05/23/19 Polyethylene Glycol 3350 [Miralax 17 gm PO DAILY 05/23/19 (For Daily Use) -] Polyvinyl Alcohol [Artificial 1 drop OU QID 05/23/19 Tears] Sodium Phosphate,Bennett-Dibasic 133 ml RC PRN PRN 05/23/19 [Fleet Enema] Torsemide [Demadex -] 20 mg PO HS 05/23/19 Valacyclovir HCl [Valtrex] 500 mg PO BID 05/23/19 ASSESSMENT AND PLAN: 68 year old female with history of Multiple Myeloma, CML, DM 2, HTN, Atrial Fibrillation, Hypothyroidism, sent to the ED from [facility] for altered mental status. 1. Mild fluid overload due to IV fluid resuscitation. Increase in weight since admission. ABG not acidotic or hypercapneic. CXR - no significant changes. Few crackles at bases on lung auscultation. Will give IV Lasix 40mg IVP and repeat during transfusion of PRBCs later. I/Os, Daily weights. 2. Acute Metabolic Encephalopathy secondary to sepsis - Resolved 3. Neutropenic Sepsis secondary to bilateral LE Cellulitis, Osteomyelitis of right heel with overlying ulcer Wound Cx positive for MRSA/Pseudomonas - On IV Zosyn/Vanco. Cdiff negative, oral Vanco discontinued. Further management as per ID and Podiatry - Scheduled debridement and implantation of antibiotic beads into calcaneus by podiatry 05/30 but surgical intervention held due to respiratory status and low H/H. Will continue to hold Eliquis. Wound care. 4. Neutropenia secondary to underlying MM/CML - resolved s/p Neupogen. Hematology following. 5. Anemia sec to MM/CML - s/p 1 unit PRBCs. H/H dropped again - for transfusion of another 2 units PRBCs. Further management as per Hematology. 6. Atrial Fibrillation - Continue Cardizem CD. Eliquis held. 7. ASA on CKD 3 - improving. Torsemide held. Receiving IV Lasix for fluid overload. Renal function monitoring. 8. HTN - on Cardizem. 9. DM 2 - Novolog sliding scale. Oral diabetic medications held. 10. CML - Gleevec on hold - further management as per Hematology. 11. Multiple Myeloma - management as per Hematology. 12. Hypothyroidism - Continue Synthroid. DVT Px - on Eliquis.
--- NOTE | 2019-05-30 15:20 | PN ---
Progress Note (short form) - Note Progress Note: Hematology and Oncology follow up Subjective: Patient seen and examined at bedside. No events overnight. Patient more lethargic today. Objective: Vital Signs Temperature 97.5 F L 05/30/19 06:00 Pulse Rate 81 05/30/19 06:00 Respiratory Rate 20 05/30/19 06:00 Blood Pressure 135/66 05/30/19 06:00 O2 Sat by Pulse Oximetry (%) 100 05/30/19 11:00 PE: Gen: Patient lying bed in mild respiratory distress. She is more lethargic today and repeatedly falls alseep during the interview Cardio: regular rate and rhythm. S1, S2 heard. No murmurs, gallops, rubs Pulm: inspiratory wheezes heard throughout all lung mer[place]. Patient using accessory muscles to breathe. Crackles at bases. Abdomen: Soft, nontender, nondistended. Bowel sounds heard. CBC, BMP 05/30/19 05:20 05/30/19 05:20 Assessment & plan: The patient is a 68 y/o f w/ PMH CML/ multiple myeloma (daratumumab/velcade/ dex and imatinib) admitted for neutropenic fever. #anemia -Hb 6.7 today -recommend to transfuse 2u PRBC -f/u post transfusion CBC -will continue to trend -false positive ab screen 2/2 daratumumab use; suggest getting type and cross from [place] [facility] if she requires transfusion -maintain normal transfusion thresholds #Diabetic foot wound -per podiatry, probes to bone -was scheduled for ABX seed placement today; has been postponed 2/2 respiratory and hematologic instability #SOB/Wheezing -Likely 2/2 anemia coupled w/ fluid overload -LE swollen, crackles at the bases -Pulm consult #neutropenic fever -afebrile >24hrs -s/p neupogen -WBC 5.4 -on vanc/zosyn -ID following -holding biologics
--- NOTE | 2019-05-30 19:14 | PN ---
Progress Note, Physician History of Present Illness: Pt seen and examined. Events noted, labs reviewed. She is alert and responsive although weak. s/p PRBC transfusion. Afebrile. Without acute distress. - Current Medication List Current Medications: Active Medications Acetaminophen (Tylenol -) 650 mg PO Q4H PRN PRN Reason: FEVER Albuterol Sulfate (Ventolin Hfa Inhaler -) 1 puff IH Q8H PRN PRN Reason: SHORTNESS OF BREATH Last Admin: 05/28/19 14:45 Dose: 1 puff Albuterol Sulfate (Ventolin 0.083% Nebulizer Soln -) 1 amp NEB RQID [facility] Last Admin: 05/30/19 16:17 Dose: 1 amp Apixaban (Eliquis -) 5 mg PO BID [facility] Last Admin: 05/28/19 11:26 Dose: 5 mg Artificial Tears (Artificial Tears) 1 drop OU QID [facility] Last Admin: 05/30/19 11:11 Dose: 1 drp Ascorbic Acid (Vitamin C -) 1,000 mg PO DAILY [facility] Last Admin: 05/30/19 11:10 Dose: 1,000 mg Bisacodyl (Dulcolax Suppository -) 10 mg RC DAILY PRN PRN Reason: CONSTIPATION Collagenase (Santyl -) 1 applic TP DAILY [facility]; Protocol Last Admin: 05/30/19 11:11 Dose: 1 applic Diltiazem HCl (Cardizem Cd -) 120 mg PO DAILY [facility] Last Admin: 05/30/19 11:10 Dose: 120 mg Folic Acid (Folic Acid -) 1 mg PO DAILY [facility] Last Admin: 05/30/19 11:10 Dose: 1 mg Gabapentin (Neurontin -) 100 mg PO TID [facility] Last Admin: 05/30/19 06:51 Dose: 100 mg Piperacillin Sod/Tazobactam (Sod 2.25 gm/ Dextrose) 50 mls @ 100 mls/hr IVPB Q6H-IV [facility]; Protocol Last Admin: 05/30/19 11:09 Dose: 100 mls/hr Insulin Aspart (Novolog Vial Sliding Scale -) 1 vial SQ ACHS [facility]; Protocol Last Admin: 05/30/19 06:51 Dose: 4 units Lactobacillus Acidophilus (Bacid -) 1 tab PO TID [facility] Last Admin: 05/30/19 06:51 Dose: 1 tab Levothyroxine Sodium (Synthroid -) 25 mcg PO DAILY@0630 [facility] Last Admin: 05/30/19 06:51 Dose: 25 mcg Magnesium Hydroxide (Milk Of Magnesia -) 30 ml PO DAILY PRN PRN Reason: CONSTIPATION Multi-Ingredient Lotion (Eucerin (Large Jar) -) 1 applic TP DAILY PRN PRN Reason: DRY SKIN Multivit/Ca Carb/B Cmplx/FA/Prenat (Nephro-Majo -) 1 tablet PO DAILY [facility] Last Admin: 05/30/19 11:10 Dose: 1 tablet Polyethylene Glycol (Miralax (For Daily Use) -) 17 gm PO DAILY [facility] Last Admin: 05/30/19 11:11 Dose: Not Given Pyridoxine HCl (Vitamin B6 -) 100 mg PO DAILY [facility] Last Admin: 05/29/19 09:57 Dose: 100 mg Senna (Senna -) 1 tab PO DAILY [facility] Last Admin: 05/30/19 11:12 Dose: Not Given Sodium Chloride ([place] Nasal [place] -) 2 spray NS BID PRN PRN Reason: NASAL CONGESTION Last Admin: 05/27/19 18:58 Dose: 2 spray Torsemide (Demadex -) 20 mg PO HS [facility] Last Admin: 05/28/19 22:11 Dose: 20 mg Valacyclovir HCl (Valtrex -) 500 mg PO BID [facility] Last Admin: 05/30/19 11:10 Dose: 500 mg - Objective Vital Signs: Vital Signs Temperature 98.2 F 05/30/19 14:00 Pulse Rate 81 05/30/19 14:00 Respiratory Rate 20 05/30/19 14:00 Blood Pressure 141/68 05/30/19 14:00 O2 Sat by Pulse Oximetry (%) 100 05/30/19 11:00 Constitutional: Yes: No Distress, Calm Cardiovascular: Yes: Regular Rate and Rhythm Respiratory: Yes: Diminished (bases), Wheezes Gastrointestinal: Yes: Normal Bowel Sounds, Soft, Abdomen, Obese Genitourinary: Yes: WNL Extremities: Yes: Erythema Edema: Yes Edema: LLE: 2+, RLE: 2+ Wound/Incision: Yes: Other (b/l LE erythema/mild warmth, heel dressings intact) Neurological: Yes: Alert, Weakness Labs: CBC, BMP 05/30/19 05:20 05/30/19 05:20 INR, PTT INR 1.28 (0.83-1.09) H 05/30/19 07:08 Microbiology 05/22/19 17:50 Blood - Peripheral Venous Blood Culture - Final S Aureus Corynebacterium Urealyticum 05/28/19 00:00 Stool Clostridioides difficile Antigen - Final 05/28/19 00:00 Stool Clostridioides difficile Toxin Assay - Final 05/22/19 17:50 Blood - Peripheral Venous Blood Culture - Final NO GROWTH AFTER 5 DAYS INCUBATION 05/22/19 22:40 Ulcer Gram Stain - Final 05/22/19 22:40 Ulcer Wound Culture - Final Proteus Mirabilis Pseudomonas Aeruginosa Enterobacter Cloacae S Aureus Enterococcus Faecalis 05/24/19 17:00 Urine - Urine - Catheterized Urine Culture - Final NO GROWTH OBTAINED 05/23/19 05:42 Blood - Peripheral Venous FREDDY Preparation - Preliminary 05/23/19 05:42 Blood - Peripheral Venous Fungal Culture - Preliminary Vancomycin level : 19 Problem List - Problems (1) Acute on chronic diastolic (congestive) heart failure Code(s): I50.33 - ACUTE ON CHRONIC DIASTOLIC (CONGESTIVE) HEART FAILURE (2) CML (chronic myelocytic leukemia) Code(s): C92.10 - CHRONIC MYELOID LEUK, BCR/ABL-POSITIVE, NOT ACHIEVE REMIS (3) Neutropenic fever Code(s): D70.9 - NEUTROPENIA, UNSPECIFIED; R50.81 - FEVER PRESENTING WITH CONDITIONS CLASSIFIED ELSEWHERE (4) Osteomyelitis Code(s): M86.9 - OSTEOMYELITIS, UNSPECIFIED Qualifiers: Osteomyelitis type: other acute Osteomyelitis location: multiple sites Qualified Code(s): M86.19 - Other acute osteomyelitis, multiple sites (5) Pulmonary hypertension Code(s): I27.20 - PULMONARY HYPERTENSION, UNSPECIFIED (6) Sepsis Code(s): A41.9 - SEPSIS, UNSPECIFIED ORGANISM Qualifiers: Sepsis type: sepsis due to unspecified organism Sepsis acute organ dysfunction status: unspecified Qualified Code(s): A41.9 - Sepsis, unspecified organism (7) Diabetic foot ulcer Code(s): E11.621 - TYPE 2 DIABETES MELLITUS WITH FOOT ULCER; L97.509 - NON- PRESSURE CHRONIC ULCER OTH PRT UNSP FOOT W UNSP SEVERITY Qualifiers: Diabetic foot ulcer location: heel Diabetes mellitus type: type 2 Laterality: unspecified laterality Non-pressure ulcer stage: unspecified non- pressure ulcer stage Qualified Code(s): E11.621 - Type 2 diabetes mellitus with foot ulcer; L97.409 - Non-pressure chronic ulcer of unspecified heel and midfoot with unspecified severity (8) A-fib Code(s): I48.91 - UNSPECIFIED ATRIAL FIBRILLATION Qualifiers: Atrial fibrillation type: chronic Qualified Code(s): I48.2 - Chronic atrial fibrillation (9) ASA (acute kidney injury) Code(s): N17.9 - ACUTE KIDNEY FAILURE, UNSPECIFIED (10) Altered mental status, unspecified Code(s): R41.82 - ALTERED MENTAL STATUS, UNSPECIFIED (11) COPD (chronic obstructive pulmonary disease) Code(s): J44.9 - CHRONIC OBSTRUCTIVE PULMONARY DISEASE, UNSPECIFIED (12) Cellulitis Code(s): L03.90 - CELLULITIS, UNSPECIFIED Qualifiers: Site of cellulitis: extremity Site of cellulitis of extremity: lower extremity Laterality: unspecified laterality Qualified Code(s): L03.119 - Cellulitis of unspecified part of limb (13) Chronic anemia Code(s): D64.9 - ANEMIA, UNSPECIFIED (14) Diabetic neuropathy Code(s): E11.40 - TYPE 2 DIABETES MELLITUS WITH DIABETIC NEUROPATHY, UNSP (15) HTN (hypertension) Code(s): I10 - ESSENTIAL (PRIMARY) HYPERTENSION (16) T2DM (type 2 diabetes mellitus) Code(s): E11.9 - TYPE 2 DIABETES MELLITUS WITHOUT COMPLICATIONS Qualifiers: Diabetes mellitus complication status: with neurologic complications (17) Osteomyelitis of foot Code(s): M86.9 - OSTEOMYELITIS, UNSPECIFIED Qualifiers: Laterality: right Assessment/Plan Sepsis MRSA bacteremia LE cellulitis Infected foot ulcer/OM Anemia - s/p PRBC transfusion Neutropenia s/p neupogen Acute on chronic HF ASA on CKD CML MM AFIB Pulm HTN DM Morbid obesity hypothyroidism -- continue Zosyn -- Vancomycin level noted, repeat in a.m., redose -- repeat blood cultures -- monitor renal function -- continue wound care -- for surgical debridement once pt stabilizes -- currently afebrile/without distress -- continue monitor closely -- hematology following
[2019-05-30] MEDS ORDERED: ACETAMINOPHEN 1000 MG/100 ML VIAL (NON FORMULARY) IVPB ONE (21:16)
--- NOTE | 2019-05-30 21:52 | PN ---
Progress Note (short form) - Note Progress Note: Patient seen and examined c/o back pain Awake, alert Cor: RSR, No murmurs, No gallops Lungs: Clear to P&A Abd: Soft, Normal bowel sounds, No organomegaly Ext: stasis dermatitis/ulcers Labs/Meds reviewed A/P 68 y/o patient with CML/ multiple myeloma on daratumumab/velcade/ dex and imatinib comes in with myelosuppression/neutropenia/ fever/ ? cellulitis Will transfuse PRBCs for HHGb 6.9----- false + alloab screen due to interference from daratumumab . will request crossing and type matching from [facility] on zosyn c.diff negative hold imatinib/myeloma therapy on eliquis transfused 2 units PRBCs for Hgb of 6.7 anemia of chronic disease/myelosuppression
[2019-05-31] MEDS ORDERED: MORPHINE SULFATE 2 MG/ML VIAL IVPUSH ONE (02:47)
[2019-05-31] MEDS: PIPERACILLIN/TAZOB 2.25 GM 2.25 GM in DEXTROSE 5%-WATER - 50 ML IVPB SCH ×4 (03:05→21:27)
[2019-05-31] MEDS ORDERED: PIPERACILLIN/TAZOBACTAM 2.25 GM VIAL IVPB ONE ×4 (03:21→20:16)
[2019-05-31] MEDS ORDERED: DEXTROSE 5%-WATER - 50 ML IVPB ONE ×4 (03:21→20:17)
[2019-05-31] MEDS: INSULIN SLIDING SCALE (NOVOLOG) 1 VIAL SQ SCH ×4 (07:00→21:57)
[2019-05-31] MEDS: GABAPENTIN 100 MG CAPSULE (FP) PO SCH ×3 (07:00→21:25)
[2019-05-31] MEDS: LACTOBACILLUS ACIDOPHILUS 1 TABLET PO SCH ×3 (07:00→21:27)
[2019-05-31] MEDS: LEVOTHYROXINE NA 25 MCG TABLET (FP) PO SCH (07:00)
[2019-05-31] MEDS: ALBUTEROL SO4 0.083% IH SOL 2.5 MG/3 ML VIAL.NEB. NEB SCH ×4 (07:30→20:25)
[2019-05-31 07:35] LABS: BASO % 0.3 % (0-2.0); EOS % 2.1 % (0-4.5); HEMATOCRIT 26.9 % (32.4-45.2); HEMOGLOBIN 8.8 GM/dL (10.7-15.3); LYMPH % 4.5 % (8-40); MCH 30.1 pg (25.7-33.7); MCHC 32.7 g/dl (32.0-36.0); MEAN CELL VOLUME 91.9 fl (80-96); MEAN PLT VOLUME 9.5 fl (7.5-11.1); MONO % 3.4 % (3.8-10.2); NEUT % 89.7 % (42.8-82.8); PLATELET COUNT 106 K/MM3 (134-434); RBC 2.92 M/mm3 (3.60-5.2); RDW 19.6 % (11.6-15.6); WHITE BLOOD COUNT 5.3 K/mm3 (4.0-10.0)
[2019-05-31 07:37] LABS: ALBUMIN 1.8 g/dl (3.4-5.0); BILIRUBIN,TOTAL 0.3 mg/dL (0.2-1); CALCIUM 7.9 mg/dL (8.5-10.1); CREATININE 1.5 mg/dL (0.55-1.3); POTASSIUM 4.5 mmol/L (3.5-5.1); TOT PROT 6.5 g/dl (6.4-8.2)
[2019-05-31] MEDS ORDERED: VANCOMYCIN 1 GM in D5W (PRE-DOCKED) 1,000 MG/250 ML IVPB ONE (08:09)
[2019-05-31] MEDS ORDERED: VANCOMYCIN 750 MG in DEXTROSE 5%-WATER - 250 ML IVPB ONE (09:00)
[2019-05-31] MEDS ORDERED: oxyCODONE HCL 5 MG TABLET PO PRN ×2 (09:00→11:57)
[2019-05-31] MEDS: FOLIC ACID 1 MG TABLET (FP) PO SCH (10:39)
[2019-05-31] MEDS: COLLAGENASE CLOSTRIDIUM HIST. 30 GRAMS TUBE TP SCH (10:39)
[2019-05-31] MEDS: ARTIFICIAL TEARS (POLYVINYL ALCOHOL) OPTH DROPS OU SCH ×3 (10:39→22:58)
[2019-05-31] MEDS: VITAMIN B COMP W-C 1 EA TABLET PO SCH (10:39)
[2019-05-31] MEDS: POLYETHYLENE GLYCOL 3350 119 GM BTL PO SCH (10:39)
[2019-05-31] MEDS: valACYclovir HCL 500 MG TABLET (FP) PO SCH ×2 (10:40→21:25)
[2019-05-31] MEDS: PYRIDOXINE HCL (B-6) 100 MG TABLET PO SCH (10:40)
[2019-05-31] MEDS: SENNOSIDES 8.6MG TABLET (FP) PO SCH (10:40)
[2019-05-31] MEDS: ASCORBIC ACID 500 MG TABLET (FP) PO SCH (10:40)
--- NOTE | 2019-05-31 11:37 | PN ---
Progress Note, Physician History of Present Illness: pulmonary alert,feeling better,sob improving,c/o lower ext pain - Current Medication List Current Medications: Active Medications Acetaminophen (Tylenol -) 650 mg PO Q4H PRN PRN Reason: FEVER Albuterol Sulfate (Ventolin Hfa Inhaler -) 1 puff IH Q8H PRN PRN Reason: SHORTNESS OF BREATH Last Admin: 05/28/19 14:45 Dose: 1 puff Albuterol Sulfate (Ventolin 0.083% Nebulizer Soln -) 1 amp NEB RQID [facility] Last Admin: 05/31/19 07:30 Dose: 1 amp Apixaban (Eliquis -) 5 mg PO BID [facility] Last Admin: 05/28/19 11:26 Dose: 5 mg Artificial Tears (Artificial Tears) 1 drop OU QID [facility] Last Admin: 05/31/19 10:39 Dose: 1 drp Ascorbic Acid (Vitamin C -) 1,000 mg PO DAILY [facility] Last Admin: 05/31/19 10:40 Dose: 1,000 mg Bisacodyl (Dulcolax Suppository -) 10 mg RC DAILY PRN PRN Reason: CONSTIPATION Collagenase (Santyl -) 1 applic TP DAILY [facility]; Protocol Last Admin: 05/31/19 10:39 Dose: 1 applic Diltiazem HCl (Cardizem Cd -) 120 mg PO DAILY [facility] Last Admin: 05/31/19 10:39 Dose: 120 mg Folic Acid (Folic Acid -) 1 mg PO DAILY [facility] Last Admin: 05/31/19 10:39 Dose: 1 mg Gabapentin (Neurontin -) 100 mg PO TID [facility] Last Admin: 05/31/19 07:00 Dose: 100 mg Piperacillin Sod/Tazobactam (Sod 2.25 gm/ Dextrose) 50 mls @ 100 mls/hr IVPB Q6H-IV [facility]; Protocol Last Admin: 05/31/19 09:35 Dose: 100 mls/hr Insulin Aspart (Novolog Vial Sliding Scale -) 1 vial SQ ACHS [facility]; Protocol Last Admin: 05/31/19 07:00 Dose: Not Given Lactobacillus Acidophilus (Bacid -) 1 tab PO TID [facility] Last Admin: 05/31/19 07:00 Dose: 1 tab Levothyroxine Sodium (Synthroid -) 25 mcg PO DAILY@0630 [facility] Last Admin: 05/31/19 07:00 Dose: 25 mcg Magnesium Hydroxide (Milk Of Magnesia -) 30 ml PO DAILY PRN PRN Reason: CONSTIPATION Multi-Ingredient Lotion (Eucerin (Large Jar) -) 1 applic TP DAILY PRN PRN Reason: DRY SKIN Multivit/Ca Carb/B Cmplx/FA/Prenat (Nephro-Majo -) 1 tablet PO DAILY [facility] Last Admin: 05/31/19 10:39 Dose: 1 tablet Oxycodone HCl (Roxicodone -) 10 mg PO Q4H PRN PRN Reason: PAIN LEVEL 7 - 10 Last Admin: 05/31/19 09:45 Dose: 10 mg Polyethylene Glycol (Miralax (For Daily Use) -) 17 gm PO DAILY [facility] Last Admin: 05/31/19 10:39 Dose: Not Given Pyridoxine HCl (Vitamin B6 -) 100 mg PO DAILY [facility] Last Admin: 05/31/19 10:40 Dose: 100 mg Senna (Senna -) 1 tab PO DAILY [facility] Last Admin: 05/31/19 10:40 Dose: Not Given Sodium Chloride ([place] Nasal [place] -) 2 spray NS BID PRN PRN Reason: NASAL CONGESTION Last Admin: 05/27/19 18:58 Dose: 2 spray Torsemide (Demadex -) 20 mg PO HS [facility] Last Admin: 05/28/19 22:11 Dose: 20 mg Valacyclovir HCl (Valtrex -) 500 mg PO BID [facility] Last Admin: 05/31/19 10:40 Dose: 500 mg - Objective Vital Signs: Vital Signs Temperature 98.0 F 05/30/19 21:00 Pulse Rate 69 05/31/19 05:00 Respiratory Rate 20 05/31/19 05:00 Blood Pressure 121/64 05/31/19 05:00 O2 Sat by Pulse Oximetry (%) 98 05/31/19 07:29 Constitutional: Yes: Well Nourished, Calm, Obese Eyes: Yes: WNL HENT: Yes: WNL Neck: Yes: WNL Cardiovascular: Yes: Pulse Irregular, S1, S2 Respiratory: Yes: Diminished Gastrointestinal: Yes: Normal Bowel Sounds, Soft Extremities: Yes: WNL, Erythema Edema: Yes Labs: CBC, BMP 05/31/19 05:12 05/31/19 06:00 INR, PTT INR 1.28 (0.83-1.09) H 05/30/19 07:08 Problem List - Problems (1) Acute on chronic diastolic (congestive) heart failure Code(s): I50.33 - ACUTE ON CHRONIC DIASTOLIC (CONGESTIVE) HEART FAILURE (2) CML (chronic myelocytic leukemia) Code(s): C92.10 - CHRONIC MYELOID LEUK, BCR/ABL-POSITIVE, NOT ACHIEVE REMIS (3) Sepsis Code(s): A41.9 - SEPSIS, UNSPECIFIED ORGANISM Qualifiers: Sepsis type: sepsis due to unspecified organism Sepsis acute organ dysfunction status: unspecified Qualified Code(s): A41.9 - Sepsis, unspecified organism (4) Diabetic foot ulcer Code(s): E11.621 - TYPE 2 DIABETES MELLITUS WITH FOOT ULCER; L97.509 - NON- PRESSURE CHRONIC ULCER OTH PRT UNSP FOOT W UNSP SEVERITY Qualifiers: Diabetic foot ulcer location: heel Diabetes mellitus type: type 2 Laterality: unspecified laterality Non-pressure ulcer stage: unspecified non- pressure ulcer stage Qualified Code(s): E11.621 - Type 2 diabetes mellitus with foot ulcer; L97.409 - Non-pressure chronic ulcer of unspecified heel and midfoot with unspecified severity (5) A-fib Code(s): I48.91 - UNSPECIFIED ATRIAL FIBRILLATION Qualifiers: Atrial fibrillation type: chronic Qualified Code(s): I48.2 - Chronic atrial fibrillation (6) Altered mental status, unspecified Code(s): R41.82 - ALTERED MENTAL STATUS, UNSPECIFIED (7) HTN (hypertension) Code(s): I10 - ESSENTIAL (PRIMARY) HYPERTENSION (8) Lymphedema Code(s): I89.0 - LYMPHEDEMA, NOT ELSEWHERE CLASSIFIED (9) T2DM (type 2 diabetes mellitus) Code(s): E11.9 - TYPE 2 DIABETES MELLITUS WITHOUT COMPLICATIONS Qualifiers: Diabetes mellitus complication detail: with unspecified neuropathy (10) Toxic metabolic encephalopathy Code(s): G92 - TOXIC ENCEPHALOPATHY (11) Anemia Code(s): D64.9 - ANEMIA, UNSPECIFIED Qualifiers: Anemia type: other cause Other causes of anemia: chronic disease, other Qualified Code(s): D63.8 - Anemia in other chronic diseases classified elsewhere Assessment/Plan Problem List - Problems (1) Acute on chronic diastolic (congestive) heart failure Code(s): I50.33 - ACUTE ON CHRONIC DIASTOLIC (CONGESTIVE) HEART FAILURE (2) Pulmonary hypertension Code(s): I27.20 - PULMONARY HYPERTENSION, UNSPECIFIED Assessment/Plan Altered Mental Status improved Acute on Chronic Diastolic Heart Failure Pulmonary HTN Volume Overload Cellulitis Osteomyelitis Sepsis Acute on Chronic Renal Failure Atrial Fibrillation Multiple Myeloma CML HTN DM Hypothyroidism Anemia Morbid Obesity - IV lasix - monitor urine output, creatinine - daily weights - monitor H/H - rate control - anticoagulation - O2 to keep SpO2 >90% - BiPAP to assist in work of breathing - continue antibiotics/wound care DR BELL
--- NOTE | 2019-05-31 13:19 | PN ---
Progress Note, Physician History of Present Illness: She is alert and responsive although weak. s/p PRBC transfusion. Afebrile. Without acute distress. - Current Medication List Current Medications: Active Medications Acetaminophen (Tylenol -) 650 mg PO Q4H PRN PRN Reason: FEVER Albuterol Sulfate (Ventolin Hfa Inhaler -) 1 puff IH Q8H PRN PRN Reason: SHORTNESS OF BREATH Last Admin: 05/28/19 14:45 Dose: 1 puff Albuterol Sulfate (Ventolin 0.083% Nebulizer Soln -) 1 amp NEB RQID [facility] Last Admin: 05/31/19 11:34 Dose: 1 amp Apixaban (Eliquis -) 5 mg PO BID [facility] Last Admin: 05/28/19 11:26 Dose: 5 mg Artificial Tears (Artificial Tears) 1 drop OU QID [facility] Last Admin: 05/31/19 10:39 Dose: 1 drp Ascorbic Acid (Vitamin C -) 1,000 mg PO DAILY [facility] Last Admin: 05/31/19 10:40 Dose: 1,000 mg Bisacodyl (Dulcolax Suppository -) 10 mg RC DAILY PRN PRN Reason: CONSTIPATION Collagenase (Santyl -) 1 applic TP DAILY [facility]; Protocol Last Admin: 05/31/19 10:39 Dose: 1 applic Diltiazem HCl (Cardizem Cd -) 120 mg PO DAILY [facility] Last Admin: 05/31/19 10:39 Dose: 120 mg Folic Acid (Folic Acid -) 1 mg PO DAILY [facility] Last Admin: 05/31/19 10:39 Dose: 1 mg Gabapentin (Neurontin -) 100 mg PO TID [facility] Last Admin: 05/31/19 07:00 Dose: 100 mg Piperacillin Sod/Tazobactam (Sod 2.25 gm/ Dextrose) 50 mls @ 100 mls/hr IVPB Q6H-IV [facility]; Protocol Last Admin: 05/31/19 09:35 Dose: 100 mls/hr Insulin Aspart (Novolog Vial Sliding Scale -) 1 vial SQ ACHS [facility]; Protocol Last Admin: 05/31/19 12:30 Dose: 4 units Lactobacillus Acidophilus (Bacid -) 1 tab PO TID [facility] Last Admin: 05/31/19 07:00 Dose: 1 tab Levothyroxine Sodium (Synthroid -) 25 mcg PO DAILY@0630 [facility] Last Admin: 05/31/19 07:00 Dose: 25 mcg Magnesium Hydroxide (Milk Of Magnesia -) 30 ml PO DAILY PRN PRN Reason: CONSTIPATION Multi-Ingredient Lotion (Eucerin (Large Jar) -) 1 applic TP DAILY PRN PRN Reason: DRY SKIN Multivit/Ca Carb/B Cmplx/FA/Prenat (Nephro-Majo -) 1 tablet PO DAILY [facility] Last Admin: 05/31/19 10:39 Dose: 1 tablet Oxycodone HCl (Roxicodone -) 5 mg PO Q4H PRN PRN Reason: PAIN LEVEL 7 - 10 Polyethylene Glycol (Miralax (For Daily Use) -) 17 gm PO DAILY [facility] Last Admin: 05/31/19 10:39 Dose: Not Given Pyridoxine HCl (Vitamin B6 -) 100 mg PO DAILY [facility] Last Admin: 05/31/19 10:40 Dose: 100 mg Senna (Senna -) 1 tab PO DAILY [facility] Last Admin: 05/31/19 10:40 Dose: Not Given Sodium Chloride ([place] Nasal [place] -) 2 spray NS BID PRN PRN Reason: NASAL CONGESTION Last Admin: 05/27/19 18:58 Dose: 2 spray Torsemide (Demadex -) 20 mg PO HS [facility] Last Admin: 05/28/19 22:11 Dose: 20 mg Valacyclovir HCl (Valtrex -) 500 mg PO BID [facility] Last Admin: 05/31/19 10:40 Dose: 500 mg - Objective Vital Signs: Vital Signs Temperature 98.1 F 05/31/19 09:00 Pulse Rate 71 05/31/19 09:00 Respiratory Rate 21 H 05/31/19 09:00 Blood Pressure 123/68 05/31/19 09:00 O2 Sat by Pulse Oximetry (%) 98 05/31/19 09:00 Constitutional: Yes: No Distress, Calm Cardiovascular: Yes: S1, S2 Respiratory: Yes: Regular, Poor Air Entry Gastrointestinal: Yes: Normal Bowel Sounds, Soft Musculoskeletal: Yes: WNL Extremities: Yes: Other Wound/Incision: Yes: Dressing Dry and Intact Neurological: Yes: Alert, Oriented Psychiatric: Yes: Alert, Oriented Labs: CBC, BMP 05/31/19 05:12 05/31/19 06:00 INR, PTT INR 1.28 (0.83-1.09) H 05/30/19 07:08 Assessment/Plan Problem List - Problems (1) Acute on chronic diastolic (congestive) heart failure Code(s): I50.33 - ACUTE ON CHRONIC DIASTOLIC (CONGESTIVE) HEART FAILURE (2) CML (chronic myelocytic leukemia) Code(s): C92.10 - CHRONIC MYELOID LEUK, BCR/ABL-POSITIVE, NOT ACHIEVE REMIS (3) Neutropenic fever Code(s): D70.9 - NEUTROPENIA, UNSPECIFIED; R50.81 - FEVER PRESENTING WITH CONDITIONS CLASSIFIED ELSEWHERE (4) Osteomyelitis Code(s): M86.9 - OSTEOMYELITIS, UNSPECIFIED Qualifiers: Osteomyelitis type: other acute Osteomyelitis location: multiple sites Qualified Code(s): M86.19 - Other acute osteomyelitis, multiple sites (5) Pulmonary hypertension Code(s): I27.20 - PULMONARY HYPERTENSION, UNSPECIFIED (6) Sepsis Code(s): A41.9 - SEPSIS, UNSPECIFIED ORGANISM Qualifiers: Sepsis type: sepsis due to unspecified organism Sepsis acute organ dysfunction status: unspecified Qualified Code(s): A41.9 - Sepsis, unspecified organism (7) Diabetic foot ulcer Code(s): E11.621 - TYPE 2 DIABETES MELLITUS WITH FOOT ULCER; L97.509 - NON- PRESSURE CHRONIC ULCER OTH PRT UNSP FOOT W UNSP SEVERITY Qualifiers: Diabetic foot ulcer location: heel Diabetes mellitus type: type 2 Laterality: unspecified laterality Non-pressure ulcer stage: unspecified non- pressure ulcer stage Qualified Code(s): E11.621 - Type 2 diabetes mellitus with foot ulcer; L97.409 - Non-pressure chronic ulcer of unspecified heel and midfoot with unspecified severity (8) A-fib Code(s): I48.91 - UNSPECIFIED ATRIAL FIBRILLATION Qualifiers: Atrial fibrillation type: chronic Qualified Code(s): I48.2 - Chronic atrial fibrillation (9) ASA (acute kidney injury) Code(s): N17.9 - ACUTE KIDNEY FAILURE, UNSPECIFIED (10) Altered mental status, unspecified Code(s): R41.82 - ALTERED MENTAL STATUS, UNSPECIFIED (11) COPD (chronic obstructive pulmonary disease) Code(s): J44.9 - CHRONIC OBSTRUCTIVE PULMONARY DISEASE, UNSPECIFIED (12) Cellulitis Code(s): L03.90 - CELLULITIS, UNSPECIFIED Qualifiers: Site of cellulitis: extremity Site of cellulitis of extremity: lower extremity Laterality: unspecified laterality Qualified Code(s): L03.119 - Cellulitis of unspecified part of limb (13) Chronic anemia Code(s): D64.9 - ANEMIA, UNSPECIFIED (14) Diabetic neuropathy Code(s): E11.40 - TYPE 2 DIABETES MELLITUS WITH DIABETIC NEUROPATHY, UNSP (15) HTN (hypertension) Code(s): I10 - ESSENTIAL (PRIMARY) HYPERTENSION (16) T2DM (type 2 diabetes mellitus) Code(s): E11.9 - TYPE 2 DIABETES MELLITUS WITHOUT COMPLICATIONS Qualifiers: Diabetes mellitus complication status: with neurologic complications (17) Osteomyelitis of foot Code(s): M86.9 - OSTEOMYELITIS, UNSPECIFIED Qualifiers: Laterality: right Assessment/Plan Sepsis MRSA bacteremia LE cellulitis Infected foot ulcer/OM Anemia - s/p PRBC transfusion Neutropenia s/p neupogen Acute on chronic HF ASA on CKD CML MM AFIB Pulm HTN DM Morbid obesity hypothyroidism -- continue Zosyn -- Vancomycin level noted, repeat in a.m., redose -- repeat blood cultures -- monitor renal function -- continue wound care -- for surgical debridement once pt stabilizes -- currently afebrile/without distress -- continue monitor closely -- hematology following
--- NOTE | 2019-05-31 14:13 | PN ---
Teaching Attending Note Name of Resident: Lidia Segura ATTENDING PHYSICIAN STATEMENT I saw and evaluated the patient. I reviewed the resident's note and discussed the case with the resident. I agree with the resident's findings and plan as documented. SUBJECTIVE: Less SOB, more awake and alert. No fever/chills. No cough/sputum. OBJECTIVE: Afebrile, Hemodynamically Stable. SpO2 100% on 2L via NC Last Vital Signs Temp Pulse Resp BP Pulse Ox 98.1 F 71 21 H 123/68 98 05/31/19 09:00 05/31/19 09:00 05/31/19 09:00 05/31/19 09:00 05/31/19 09:00 HEART: S1S2, RRR LUNGS: good air entry bilaterally ABDOMEN: Obese, soft, non-tender, normal BS EXTREMITIES: 3+ edema, erythema, chronic skin changes, R heel ulcer/foot dressed. NEURO: AAO x 3. Moving all 4 extremities. Laboratory Results - last 24 hr 05/30/19 05/30/19 05/31/19 07:08 21:03 05:12 WBC RBC Hgb Hct MCV MCH MCHC RDW Plt Count MPV Absolute Neuts (auto) Neutrophils % Lymphocytes % Monocytes % Eosinophils % Basophils % Nucleated RBC % Sodium Potassium Chloride Carbon Dioxide Anion Gap BUN Creatinine Est GFR (CKD-EPI)AfAm Est GFR (CKD-EPI)NonAf POC Glucometer 183 Random Glucose Calcium Total Bilirubin AST ALT Alkaline Phosphatase Total Protein Albumin Random Vancomycin 14.0 L Blood Type O POSITIVE Antibody Screen Positive Antibody Identification [place] Crossmatch See Detail 05/31/19 05/31/19 05/31/19 05:12 06:00 06:22 WBC 5.3 RBC 2.92 L Hgb 8.8 L Hct 26.9 L D MCV 91.9 MCH 30.1 MCHC 32.7 RDW 19.6 H Plt Count 106 L MPV 9.5 Absolute Neuts (auto) 4.8 Neutrophils % 89.7 H Lymphocytes % 4.5 L Monocytes % 3.4 L Eosinophils % 2.1 Basophils % 0.3 Nucleated RBC % 0 Sodium 139 Potassium 4.5 Chloride 109 H Carbon Dioxide 23 Anion Gap 8 BUN 52.0 H Creatinine 1.5 H Est GFR (CKD-EPI)AfAm 40.49 Est GFR (CKD-EPI)NonAf 34.93 POC Glucometer 173 Random Glucose 175 H Calcium 7.9 L Total Bilirubin 0.3 AST 8 L ALT 13 Alkaline Phosphatase 145 H Total Protein 6.5 Albumin 1.8 L Random Vancomycin Blood Type Antibody Screen Antibody Identification Crossmatch 05/31/19 12:25 WBC RBC Hgb Hct MCV MCH MCHC RDW Plt Count MPV Absolute Neuts (auto) Neutrophils % Lymphocytes % Monocytes % Eosinophils % Basophils % Nucleated RBC % Sodium Potassium Chloride Carbon Dioxide Anion Gap BUN Creatinine Est GFR (CKD-EPI)AfAm Est GFR (CKD-EPI)NonAf POC Glucometer 207 Random Glucose Calcium Total Bilirubin AST ALT Alkaline Phosphatase Total Protein Albumin Random Vancomycin Blood Type Antibody Screen Antibody Identification Crossmatch Current Medications Generic Name Dose Route Start Last Admin Trade Name Freq PRN Reason Stop Dose Admin Acetaminophen 650 mg 05/25/19 14:25 Tylenol - PO Q4H PRN FEVER Albuterol Sulfate 1 puff 05/23/19 03:12 05/28/19 14:45 Ventolin Hfa Inhaler - IH 1 puff Q8H PRN Administration SHORTNESS OF BREATH Albuterol Sulfate 1 amp 05/28/19 16:00 05/31/19 11:34 Ventolin 0.083% Nebulizer Soln - NEB 1 amp RQID JOVITA Administration Apixaban 5 mg 05/23/19 10:00 05/28/19 11:26 Eliquis - PO 5 mg BID JOVITA Administration Artificial Tears 1 drop 05/24/19 10:00 05/31/19 10:39 Artificial Tears OU 1 drp QID JOVITA Administration Ascorbic Acid 1,000 mg 05/23/19 10:00 05/31/19 10:40 Vitamin C - PO 1,000 mg DAILY JOVITA Administration Bisacodyl 10 mg 05/23/19 03:12 Dulcolax Suppository - RC DAILY PRN CONSTIPATION Collagenase 1 applic 05/26/19 10:30 05/31/19 10:39 Santyl - TP 1 applic DAILY JOVITA Administration Protocol Diltiazem HCl 120 mg 05/23/19 10:00 05/31/19 10:39 Cardizem Cd - PO 120 mg DAILY JOVITA Administration Folic Acid 1 mg 05/23/19 10:00 05/31/19 10:39 Folic Acid - PO 1 mg DAILY JOVITA Administration Gabapentin 100 mg 05/23/19 06:00 05/31/19 07:00 Neurontin - PO 100 mg TID JOVITA Administration Piperacillin Sod/Tazobactam 50 mls @ 100 mls/hr 05/23/19 15:00 05/31/19 09:35 Sod 2.25 gm/ Dextrose IVPB 100 mls/hr Q6H-IV JOVITA Administration Protocol Insulin Aspart 1 vial 05/27/19 22:00 05/31/19 12:30 Novolog Vial Sliding Scale - SQ 4 units ACHS JOVITA Administration Protocol Lactobacillus Acidophilus 1 tab 05/23/19 06:00 05/31/19 07:00 Bacid - PO 1 tab TID JOVITA Administration Levothyroxine Sodium 25 mcg 05/23/19 06:30 05/31/19 07:00 Synthroid - PO 25 mcg DAILY@0630 JOVITA Administration Magnesium Hydroxide 30 ml 05/24/19 07:07 Milk Of Magnesia - PO DAILY PRN CONSTIPATION Multi-Ingredient Lotion 1 applic 05/27/19 20:18 Eucerin (Large Jar) - TP DAILY PRN DRY SKIN Multivit/Ca Carb/B Cmplx/FA/Prenat 1 tablet 05/23/19 10:00 05/31/19 10:39 Nephro-Majo - PO 1 tablet DAILY JOVITA Administration Oxycodone HCl 5 mg 05/31/19 11:57 Roxicodone - PO Q4H PRN PAIN LEVEL 7 - 10 Polyethylene Glycol 17 gm 05/23/19 10:00 05/31/19 10:39 Miralax (For Daily Use) - PO Not Given DAILY JOVITA Pyridoxine HCl 100 mg 05/23/19 10:00 05/31/19 10:40 Vitamin B6 - PO 100 mg DAILY JOVITA Administration Senna 1 tab 05/23/19 10:00 05/31/19 10:40 Senna - PO Not Given DAILY JOVITA Sodium Chloride 2 spray 05/27/19 13:25 05/27/19 18:58 [place] Nasal [place] - NS 2 spray BID PRN Administration NASAL CONGESTION Torsemide 20 mg 05/23/19 22:00 05/28/19 22:11 Demadex - PO 20 mg HS JOVITA Administration Valacyclovir HCl 500 mg 05/23/19 10:00 05/31/19 10:40 Valtrex - PO 500 mg BID JOVITA Administration Home Medications Medication Instructions Recorded Albuterol Sulfate 2.5 mg IH Q8H PRN 07/18/18 Ascorbic Acid [Vitamin C -] 1,000 mg PO DAILY 07/18/18 Gabapentin [Neurontin -] 100 mg PO TID 07/18/18 Ipratropium [place] 0.2 mg IH Q8H PRN 07/18/18 Vitamin B Complex 1 tab PO DAILY 07/18/18 Diltiazem Cd [Cardizem Cd -] 120 mg PO DAILY cap.cd.24h 07/23/18 Acetaminophen [Pain Relief] 650 mg PO Q6H PRN 07/29/18 Bisacodyl Suppository [Dulcolax 10 mg RC DAILY PRN 07/29/18 Suppository -] Insulin Lispro [Humalog Kwikpen 0 unit SQ ASDIR 07/29/18 U-100] Mag Hydrox/Al Hydrox/Simeth 30 ml PO DAILY PRN 07/29/18 [Mylanta Oral Suspension -] Folic Acid 1 mg PO DAILY 11/14/18 Pyridoxine HCl (B-6) [Vitamin B6 -] 100 mg PO DAILY 11/14/18 Sennosides [Senna Lax] 17.2 mg PO DAILY 11/14/18 Eliquis 5 mg PO BID 02/26/19 Glimepiride 1 mg PO AC 02/26/19 Torsemide 40 mg PO AM 02/26/19 Clindamycin [Cleocin -] 600 mg PO Q8H #42 capsule 05/19/19 Aa/Hydrolyzed Collagen, Whey [Lps 30 ml PO BID 05/23/19 15-30 Liquid] Collagenase Clostridium Hist. 1 applic TP DAILY 05/23/19 [Santyl] Cyclobenzaprine HCl [Flexeril -] 5 mg PO BID 05/23/19 Docusate Sodium [Colace] 300 mg PO DAILY 05/23/19 Fentanyl 1 each TD Q72H 05/23/19 Hydrocortisone [Preparation H] 26 gm RC DAILY 05/23/19 Imatinib Mesylate [Gleevec] 400 mg PO DAILY 05/23/19 Lactobacillus Acidophilus 1 each PO TID 05/23/19 [Acidophilus] Levothyroxine [Synthroid -] 25 mcg PO DAILY@0630 05/23/19 Lidocaine [Aspercreme] 1 each TP DAILY 05/23/19 Magnesium Hydroxide [Milk of 30 ml PO DAILY PRN 05/23/19 Magnesia] Menthol [Bengay Ultra Strength] 1 each TP DAILY 05/23/19 Menthol/Camphor [Sarna Anti-Itch 222 ml TP DAILY PRN 05/23/19 Lotion] Nystatin Powder [Nystop Topical 15 applic TP BID 05/23/19 Powder -] Oxycodone HCl 10 mg PO Q4HWA PRN 05/23/19 Pantoprazole Sodium [Protonix] 40 mg PO DAILY 05/23/19 Polyethylene Glycol 3350 [Miralax 17 gm PO DAILY 05/23/19 (For Daily Use) -] Polyvinyl Alcohol [Artificial 1 drop OU QID 05/23/19 Tears] Sodium Phosphate,Gonzales-Dibasic 133 ml RC PRN PRN 05/23/19 [Fleet Enema] Torsemide [Demadex -] 20 mg PO HS 05/23/19 Valacyclovir HCl [Valtrex] 500 mg PO BID 05/23/19 ASSESSMENT AND PLAN: 68 year old female with history of Multiple Myeloma, CML, DM 2, HTN, Atrial Fibrillation, Hypothyroidism, sent to the ED from [facility] for altered mental status. 1. Mild fluid overload due to IV fluid resuscitation - responded well to IV Lasix diuresis Increase in weight since admission. ABG not acidotic or hypercapneic. CXR - no significant changes. Will resume daily Torsemide. I/Os, Daily weights. 2. Acute Metabolic Encephalopathy secondary to sepsis - Resolved 3. Neutropenic Sepsis secondary to bilateral LE Cellulitis, Osteomyelitis of right heel with overlying ulcer Wound Cx positive for MRSA/Pseudomonas - On IV Zosyn/Vanco. Blood Cx pos for MRSA, repeat Blood Cx pending. Cdiff negative, oral Vanco discontinued. Further management as per ID and Podiatry - For OR today for debridement and implantation of antibiotic beads into R calcaneus by podiatry 05/31. Will continue to hold Eliquis. Wound care. 4. Neutropenia/Thrombocytopenia secondary to underlying MM/CML - neutropenia resolved s/p Neupogen. Hematology following. 5. Anemia sec to MM/CML, Chronic Disease - H/H 8./.9 s/p 3 unit PRBCs total. Further management as per Hematology. 6. Atrial Fibrillation - Continue Cardizem CD. Eliquis held. 7. ASA on CKD 3 - improving. Torsemide resumed s/p IV lasix diuresis 05/30. Renal function monitoring. 8. HTN - on Cardizem. 9. DM 2 - Novolog sliding scale. Oral diabetic medications held. 10. CML/MM - treated with on daratumumab/velcade/imatinib - further management as per Hematology. 11. Hypothyroidism - Continue Synthroid. DVT Px - on Eliquis.
[2019-05-31] MEDS ORDERED: LIDOCAINE HCL 1%, 10 MG/ML (20ML VIAL) ONE (16:19)
[2019-05-31] MEDS ORDERED: LIDOCAINE HCL 2% (20ML MULTI-DOSE VIAL) NR ONE (16:52)
[2019-05-31] MEDS ORDERED: VANCOMYCIN 1,000 MG VIAL (RESTRICTED TO ID ONLY) ONE ×2 (17:05→17:17)
[2019-05-31] MEDS ORDERED: GENTAMICIN SO4 80 MG/2 ML VIAL ONE (17:06)
[2019-05-31] MEDS ORDERED: MIDAZOLAM HCL 2 MG/2 ML SINGLE DOSE VIAL ONE (17:08)
[2019-05-31] MEDS ORDERED: PHENYLEPHRINE HCL 10 MG/1 ML SINGLE DOSE VIAL ONE (17:14)
[2019-05-31] MEDS ORDERED: PROPOFOL 20 ML ONE (17:14)
[2019-05-31] MEDS ORDERED: VANCOMYCIN 1,000 MG VIAL (RESTRICTED TO ID ONLY) IVPB ONE ×2 (17:25)
[2019-05-31] MEDS ORDERED: LIDOCAINE HCL 2% (50ML VIAL) INF ONE (17:25)
--- NOTE | 2019-05-31 17:45 | OP ---
Operative Note - Note: Operative Date: 05/31/19 Pre-Operative Diagnosis: Right foot osteomyelitis. Operation: Right foot bone debridment with implantation of antibiotic bead. Findings: Patient is a 68 y/o female wit the above mentioned diagnoses. Patient requires antibiotic bead placements given severity of bone infection and over arching medical condition. Prior to taken patient to OR NPO status verified and antibiotics were given on the floor. At this time attention was directed to the plantar aspect of the patients right foot. There was a large roughly 2 cm x 1.5 cm ulceration that probed directly to the bone. With use of a currete the calcaneus was then palpated and with only gentle pressure the plantar aspect of the calcaneus collapsed into what was likely underlying cloaca from the infection. At this time a wound culture was re obtained. The calcaneus had a significant defect within the body which was cleared with the currette. Once clearance was obtained the [employer] antibiotic beads were mixed. Roughly .5g of Vancomycin was utilized. This was placed in the mixer and solution and then the beads were formed. Once hardended the beads were placed into the calcaneal body. The wound was then dressed with adaptic 4x4 fluff abd pad and Kerlix. Patient tolerated anesthesia and procedure well and was transported to PACU with VSS and NVSI to the right foot. Patient will be followed on the floors. Implants: [employer] Osteoset Beads with Vancomycin .5 grams Post-Operative Diagnosis: Same as Pre-op Surgeon: Shaka Matthews Anesthesia: Local Specimens Removed: Wound culture. Estimated Blood Loss (mls): 5 Instrument used (Debridements only): Tiny Operative Report Dictated: Yes
--- NOTE | 2019-05-31 18:10 | PN ---
Physical Exam: SUBJECTIVE: Patient seen and examined. Reports shortness of breath. Improved with Bipap. Some wheezing. Continued pain in LEs. OBJECTIVE: Vital Signs Period Temp Pulse Resp BP Sys/[place] Pulse Ox Last 24 Hr 98 F-98.4 F 68-81 12-23 121-147/61-80 98-100 GENERAL: The patient is alert, and fully oriented, in no acute distress. HEAD: Normal with no signs of trauma. EYES: PERRL, extraocular movements intact, sclera anicteric, conjunctiva clear. No ptosis. ENT: Ears normal, nares patent, moist mucous membranes. NECK: Trachea midline, full range of motion, supple. LUNGS: crackles at bases HEART: Regular rate and rhythm, S1, S2 without murmur, rub or gallop. ABDOMEN: Soft, nontender, nondistended, normoactive bowel sounds EXTREMITIES: 2+ pulses, warm, well-perfused, no edema, except for bilateral lower extremity erythema, +2 pitting edema with crusting on anterior aspect. Right foot plantar surface stage 4 ulcer as well as left plantar ulcer stage 3/ 4. NEUROLOGICAL: Cranial nerves II through XII grossly intact. Normal speech, gait not observed. PSYCH: Normal mood and affect. SKIN: Warm, dry, normal turgor, no rashes or lesions noted except as above Laboratory Results - last 24 hr 05/30/19 05/31/19 05/31/19 21:03 05:12 05:12 WBC 5.3 RBC 2.92 L Hgb 8.8 L Hct 26.9 L D MCV 91.9 MCH 30.1 MCHC 32.7 RDW 19.6 H Plt Count 106 L MPV 9.5 Absolute Neuts (auto) 4.8 Neutrophils % 89.7 H Lymphocytes % 4.5 L Monocytes % 3.4 L Eosinophils % 2.1 Basophils % 0.3 Nucleated RBC % 0 Sodium Potassium Chloride Carbon Dioxide Anion Gap BUN Creatinine Est GFR (CKD-EPI)AfAm Est GFR (CKD-EPI)NonAf POC Glucometer 183 Random Glucose Calcium Total Bilirubin AST ALT Alkaline Phosphatase Total Protein Albumin Random Vancomycin 14.0 L 05/31/19 05/31/19 05/31/19 06:00 06:22 12:25 WBC RBC Hgb Hct MCV MCH MCHC RDW Plt Count MPV Absolute Neuts (auto) Neutrophils % Lymphocytes % Monocytes % Eosinophils % Basophils % Nucleated RBC % Sodium 139 Potassium 4.5 Chloride 109 H Carbon Dioxide 23 Anion Gap 8 BUN 52.0 H Creatinine 1.5 H Est GFR (CKD-EPI)AfAm 40.49 Est GFR (CKD-EPI)NonAf 34.93 POC Glucometer 173 207 Random Glucose 175 H Calcium 7.9 L Total Bilirubin 0.3 AST 8 L ALT 13 Alkaline Phosphatase 145 H Total Protein 6.5 Albumin 1.8 L Random Vancomycin Active Medications Generic Name Dose Route Start Last Admin Trade Name Freq PRN Reason Stop Dose Admin Acetaminophen 650 mg 05/25/19 14:25 Tylenol - PO Q4H PRN FEVER Albuterol Sulfate 1 puff 05/23/19 03:12 05/28/19 14:45 Ventolin Hfa Inhaler - IH 1 puff Q8H PRN Administration SHORTNESS OF BREATH Albuterol Sulfate 1 amp 05/28/19 16:00 05/31/19 17:40 Ventolin 0.083% Nebulizer Soln - NEB Not Given RQID JOVITA Apixaban 5 mg 05/23/19 10:00 05/28/19 11:26 Eliquis - PO 5 mg BID JOVITA Administration Artificial Tears 1 drop 05/24/19 10:00 05/31/19 14:25 Artificial Tears OU 1 drp QID JOVITA Administration Ascorbic Acid 1,000 mg 05/23/19 10:00 05/31/19 10:40 Vitamin C - PO 1,000 mg DAILY JOVITA Administration Bisacodyl 10 mg 05/23/19 03:12 Dulcolax Suppository - RC DAILY PRN CONSTIPATION Collagenase 1 applic 05/26/19 10:30 05/31/19 10:39 Santyl - TP 1 applic DAILY JOVITA Administration Protocol Diltiazem HCl 120 mg 05/23/19 10:00 05/31/19 10:39 Cardizem Cd - PO 120 mg DAILY JOVITA Administration Folic Acid 1 mg 05/23/19 10:00 05/31/19 10:39 Folic Acid - PO 1 mg DAILY JOVITA Administration Gabapentin 100 mg 05/23/19 06:00 05/31/19 14:40 Neurontin - PO 100 mg TID JOVITA Administration Piperacillin Sod/Tazobactam 50 mls @ 100 mls/hr 05/23/19 15:00 05/31/19 14:39 Sod 2.25 gm/ Dextrose IVPB 100 mls/hr Q6H-IV JOVITA Administration Protocol Insulin Aspart 1 vial 05/27/19 22:00 05/31/19 17:40 Novolog Vial Sliding Scale - SQ Not Given ACHS [facility] Protocol Lactobacillus Acidophilus 1 tab 05/23/19 06:00 05/31/19 14:45 Bacid - PO 1 tab TID JOVITA Administration Levothyroxine Sodium 25 mcg 05/23/19 06:30 05/31/19 07:00 Synthroid - PO 25 mcg DAILY@0630 JOVITA Administration Magnesium Hydroxide 30 ml 05/24/19 07:07 Milk Of Magnesia - PO DAILY PRN CONSTIPATION Multi-Ingredient Lotion 1 applic 05/27/19 20:18 Eucerin (Large Jar) - TP DAILY PRN DRY SKIN Multivit/Ca Carb/B Cmplx/FA/Prenat 1 tablet 05/23/19 10:00 05/31/19 10:39 Nephro-Majo - PO 1 tablet DAILY JOVITA Administration Oxycodone HCl 5 mg 05/31/19 11:57 Roxicodone - PO Q4H PRN PAIN LEVEL 7 - 10 Polyethylene Glycol 17 gm 05/23/19 10:00 05/31/19 10:39 Miralax (For Daily Use) - PO Not Given DAILY JOVITA Pyridoxine HCl 100 mg 05/23/19 10:00 05/31/19 10:40 Vitamin B6 - PO 100 mg DAILY JOVITA Administration Senna 1 tab 05/23/19 10:00 05/31/19 10:40 Senna - PO Not Given DAILY JOVITA Sodium Chloride 2 spray 05/27/19 13:25 05/27/19 18:58 [place] Nasal [place] - NS 2 spray BID PRN Administration NASAL CONGESTION Torsemide 20 mg 05/23/19 22:00 05/28/19 22:11 Demadex - PO 20 mg HS JOVITA Administration Valacyclovir HCl 500 mg 05/23/19 10:00 05/31/19 10:40 Valtrex - PO 500 mg BID JOVITA Administration ASSESSMENT/PLAN: Ms. 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 She was brought from [facility] via EMS with complaints of feeling feverish for the past few days. #sepsis 2/2 bilateral LE cellulitis and right foot osteomyelitis WBC increased to 7.1 with ANC 5.8. Temp 101.4 at admission. MRI on 05/24/19 right foot showed significant cellulitis and osteomyelitis of calcaneus with no tendon/ligamentous tears. Wound culture positive Proteus mirabilis, Enterococcus , Pseudomonas, Enterobacter, MRSA. Blood cx MRSA. Urine cx negative. LA normal. -Zosyn day 9 -Vancomycin day 9 (vanc level 05/25/19 was 21.2), vanc level ordered -caspofungin day 8 -tylenol -oxycodone 10mg Q4H PRN -neurontin -wound care-Santyl -ID consulted- continue abx -vascular consulted -podiatry- abx beads for calcaneus osteo performed today with debridement -INR #acute metabolic encephalopathy, resolved Pt is A&Ox3. Likely from sepsis. CT initially suspected acute infarct. MRI brain showed no acute changes. CT findings likely artifact. Diffuse microischemic changes. -neuro following -stroke workup initiated at admission- carotid doppler left common carotid bifurcation 50-69% stenosis; echo- LA mildly dilated, RV pressure elevated at > 60, severe mitral annular calcification, moderate TR, mild , EF not calculated , technically difficult study #anemia of chronic disease Hb 6.7-->8.7. PRBCs 3 total. Ab positive for type and cross due to daratumumab. -PRBCs ordered -heme- hold imatinib -recheck CBC #pancytopenia hx of CML/MM -neupogen -heme/onc #ASA Cr 1.6. Renal U/S right nephrolithiasis without hydronephrosis. -gentle hydration #a-fib Echo- LA mildly dilated, RV pressure elevated at >60, severe mitral annular calcification, moderate TR, mild , EF not calculated, technically difficult study -Eliquis 5mg BID-held for procedure -diltiazem 120mg daily #DM HbA1c 6.0 -BGM -SSI #HTN -torsemide #COPD -albuterol -atrovent #HLD #hypothyroidism -Synthroid 25mcg daily #chronic constipation -bowel regimen FEN NS 83mL/hr monitor diabetic/Na controlled diet-NPO after midnight DVT Ppx Eliquis-held Visit type - Emergency Visit Emergency Visit: Yes ED Registration Date: 05/22/19 Care time: The patient presented to the Emergency Department on the above date and was hospitalized for further evaluation of their emergent condition. - New Patient This patient is new to me today: No - Critical Care Critical Care patient: No - Discharge Referral Referred to [facility] No ATTENDING PHYSICIAN STATEMENT I saw and evaluated the patient. I reviewed the resident's note and discussed the case with the resident. I agree with the resident's findings and plan as documented. SUBJECTIVE: OBJECTIVE: ASSESSMENT AND PLAN:
[2019-05-31] MEDS ORDERED: MINERAL OIL/PETROLAT/WATER TOPICAL CREAM 454 GM JAR TP PRN (18:17)
[2019-05-31] MEDS ORDERED: MAGNESIUM HYDROX 2400MG/30ML ORAL SUSPENSION 30 ML CUP PO PRN (18:17)
[2019-05-31] MEDS ORDERED: BISACODYL 10 MG SUPP.RECT RC PRN (18:17)
[2019-05-31] MEDS ORDERED: SODIUM CHLORIDE NASAL SPRAY 44 ML BOTTLE NS PRN (18:17)
[2019-05-31] MEDS ORDERED: ALBUTEROL SO4 8 GM HFA INHALER IH PRN (18:17)
[2019-05-31] MEDS: TORSEMIDE 20 MG TABLET (FP) PO SCH (21:25)
[2019-05-31] MEDS: oxyCODONE HCL 5 MG TABLET PO PRN (21:28)
[2019-05-31] MEDS: ACETAMINOPHEN 325 MG TABLET (FP) PO PRN (21:29)
[2019-06-01] MEDS: oxyCODONE HCL 5 MG TABLET PO PRN ×4 (01:15→22:08)
[2019-06-01] MEDS ORDERED: DEXTROSE 5%-WATER - 50 ML IVPB ONE ×4 (01:55→21:48)
[2019-06-01] MEDS ORDERED: PIPERACILLIN/TAZOBACTAM 2.25 GM VIAL IVPB ONE ×4 (01:55→21:48)
[2019-06-01] MEDS: PIPERACILLIN/TAZOB 2.25 GM 2.25 GM in DEXTROSE 5%-WATER - 50 ML IVPB SCH ×4 (03:00→21:59)
[2019-06-01] MEDS: LEVOTHYROXINE NA 25 MCG TABLET (FP) PO SCH (05:55)
[2019-06-01] MEDS: GABAPENTIN 100 MG CAPSULE (FP) PO SCH ×3 (05:55→21:58)
[2019-06-01] MEDS: LACTOBACILLUS ACIDOPHILUS 1 TABLET PO SCH ×3 (05:55→21:58)
[2019-06-01] MEDS: INSULIN SLIDING SCALE (NOVOLOG) 1 VIAL SQ SCH ×4 (06:27→21:59)
[2019-06-01 07:14] LABS: BASO % 0.4 % (0-2.0); EOS % 2.9 % (0-4.5); HEMATOCRIT 26.1 % (32.4-45.2); HEMOGLOBIN 8.7 GM/dL (10.7-15.3); LYMPH % 4.9 % (8-40); MCH 30.5 pg (25.7-33.7); MCHC 33.5 g/dl (32.0-36.0); MEAN CELL VOLUME 91.1 fl (80-96); MONO % 4.4 % (3.8-10.2); NEUT % 87.4 % (42.8-82.8); PLATELET COUNT 114 K/MM3 (134-434); RBC 2.86 M/mm3 (3.60-5.2); RDW 19.1 % (11.6-15.6); WHITE BLOOD COUNT 5.1 K/mm3 (4.0-10.0)
[2019-06-01] MEDS: ALBUTEROL SO4 0.083% IH SOL 2.5 MG/3 ML VIAL.NEB. NEB SCH ×4 (07:30→20:27)
[2019-06-01 07:33] LABS: CALCIUM 8.1 mg/dL (8.5-10.1); CREATININE 1.4 mg/dL (0.55-1.3); POTASSIUM 4.4 mmol/L (3.5-5.1)
--- NOTE | 2019-06-01 07:55 | PN ---
Progress Note (short form) - Note Progress Note: Podiatry F/U; Seen/evaluated at bedside NAD. No issues overnight. Pain controlled to both feet. Denies F/V/N/C/SOB/CP. Afebrile. S/p R heel debridement with implantation of antibiotic beads POD#1. MELANI: R foot: dressing C/D/I, no active bleeding, no strikethrough. Plantar heel diabetic ulcer with fibrogranular base, central area of probing to bone, no purulent drainage, no fluctuance, no streaking cellulitis, no signs of active infection. No ischemic changes to the foot. Mild serous drainage (likely from abx beads). Wound Cx: pending Imp: 68 year old diabetic female s/p right heel debridement with implantation of abx beads for chronic osteomyelitis POD#1 1. IV abx per ID 2. Will need assistant sales director IV abx for treatment of chronic osteomyelitis 3. Santyl + DSD applied to bilateral feet. Will need local wound care with santyl daily to both feet 4. Will follow up with me in wound healing center upon discharge, Monday 06/04. Podiatry stable for discharge. Michaela Farmer DPM Problem List - Problems (1) Osteomyelitis Code(s): M86.9 - OSTEOMYELITIS, UNSPECIFIED Qualifiers: Osteomyelitis type: other acute Osteomyelitis location: multiple sites Qualified Code(s): M86.19 - Other acute osteomyelitis, multiple sites
[2019-06-01] MEDS: VITAMIN B COMP W-C 1 EA TABLET PO SCH (09:23)
[2019-06-01] MEDS: SENNOSIDES 8.6MG TABLET (FP) PO SCH (09:23)
[2019-06-01] MEDS: ASCORBIC ACID 500 MG TABLET (FP) PO SCH (09:23)
[2019-06-01] MEDS: FOLIC ACID 1 MG TABLET (FP) PO SCH (09:23)
[2019-06-01] MEDS: valACYclovir HCL 500 MG TABLET (FP) PO SCH ×2 (09:24→21:58)
[2019-06-01] MEDS: POLYETHYLENE GLYCOL 3350 119 GM BTL PO SCH (09:25)
[2019-06-01] MEDS: ARTIFICIAL TEARS (POLYVINYL ALCOHOL) OPTH DROPS OU SCH ×4 (09:25→22:06)
[2019-06-01] MEDS: PYRIDOXINE HCL (B-6) 100 MG TABLET PO SCH (09:26)
--- NOTE | 2019-06-01 11:37 | PN ---
Teaching Attending Note Name of Resident: Alivia Coats ATTENDING PHYSICIAN STATEMENT I saw and evaluated the patient. I reviewed the resident's note and discussed the case with the resident. I agree with the resident's findings and plan as documented. SUBJECTIVE: Feels okay, no complaints. Denies dyspnea/CP/palpitations. No fever/ chills. No cough/sputum. OBJECTIVE: Afebrile, Hemodynamically Stable. On BiPAP Last Vital Signs Temp Pulse Resp BP Pulse Ox 97.8 F 89 24 H 154/66 100 06/01/19 09:21 06/01/19 09:21 06/01/19 09:21 06/01/19 09:21 06/01/19 09:50 HEART: S1S2, RRR LUNGS: good air entry bilaterally, with some wheeze. ABDOMEN: Obese, soft, non-tender, normal BS EXTREMITIES: 3+ edema, erythema, chronic skin changes, R heel ulcer/foot dressed. NEURO: AAO x 3. Moving all 4 extremities. Laboratory Results - last 24 hr 05/31/19 06/01/19 06/01/19 12:25 05:26 05:26 WBC 5.1 RBC 2.86 L Hgb 8.7 L Hct 26.1 L MCV 91.1 MCH 30.5 MCHC 33.5 RDW 19.1 H Plt Count 114 L MPV 9.0 Absolute Neuts (auto) 4.5 Neutrophils % 87.4 H Lymphocytes % 4.9 L Monocytes % 4.4 Eosinophils % 2.9 Basophils % 0.4 Nucleated RBC % 0 Sodium 141 Potassium 4.4 Chloride 110 H Carbon Dioxide 23 Anion Gap 7 L BUN 47.0 H Creatinine 1.4 H Est GFR (CKD-EPI)AfAm 44.01 Est GFR (CKD-EPI)NonAf 37.97 POC Glucometer 207 Random Glucose 205 H Calcium 8.1 L 06/01/19 06/01/19 05:28 11:20 WBC RBC Hgb Hct MCV MCH MCHC RDW Plt Count MPV Absolute Neuts (auto) Neutrophils % Lymphocytes % Monocytes % Eosinophils % Basophils % Nucleated RBC % Sodium Potassium Chloride Carbon Dioxide Anion Gap BUN Creatinine Est GFR (CKD-EPI)AfAm Est GFR (CKD-EPI)NonAf POC Glucometer 194 210 Random Glucose Calcium Current Medications Generic Name Dose Route Start Last Admin Trade Name Freq PRN Reason Stop Dose Admin Acetaminophen 650 mg 05/31/19 18:17 05/31/19 21:29 Tylenol - PO 650 mg Q4H PRN Administration FEVER Albuterol Sulfate 1 amp 05/31/19 20:00 06/01/19 07:30 Ventolin 0.083% Nebulizer Soln - NEB 1 amp RQID JOVITA Administration Albuterol Sulfate 1 puff 05/31/19 18:17 Ventolin Hfa Inhaler - IH Q8H PRN SHORTNESS OF BREATH Apixaban 5 mg 05/31/19 22:00 Eliquis - PO BID JOVITA Artificial Tears 1 drop 05/31/19 22:00 06/01/19 09:25 Artificial Tears OU 1 drop QID JOVITA Administration Ascorbic Acid 1,000 mg 06/01/19 10:00 06/01/19 09:23 Vitamin C - PO 1,000 mg DAILY JOVITA Administration Bisacodyl 10 mg 05/31/19 18:17 Dulcolax Suppository - RC DAILY PRN CONSTIPATION Collagenase 1 applic 06/01/19 10:00 Santyl - TP DAILY [facility] Protocol Diltiazem HCl 120 mg 06/01/19 10:00 06/01/19 09:24 Cardizem Cd - PO 120 mg DAILY JOVITA Administration Folic Acid 1 mg 06/01/19 10:00 06/01/19 09:23 Folic Acid - PO 1 mg DAILY JOVITA Administration Gabapentin 100 mg 05/31/19 22:00 06/01/19 05:55 Neurontin - PO 100 mg TID [facility] Administration Piperacillin Sod/Tazobactam 50 mls @ 100 mls/hr 05/31/19 21:00 06/01/19 09:23 Sod 2.25 gm/ Dextrose IVPB 100 mls/hr Q6H-IV JOVITA Administration Protocol Insulin Aspart 1 vial 05/31/19 22:00 06/01/19 06:27 Novolog Vial Sliding Scale - SQ 2 units ACHS [facility] Administration Protocol Lactobacillus Acidophilus 1 tab 05/31/19 22:00 06/01/19 05:55 Bacid - PO 1 tab TID JOVITA Administration Levothyroxine Sodium 25 mcg 06/01/19 06:30 06/01/19 05:55 Synthroid - PO 25 mcg DAILY@0630 J[facility] Administration Magnesium Hydroxide 30 ml 05/31/19 18:17 Milk Of Magnesia - PO DAILY PRN CONSTIPATION Multi-Ingredient Lotion 1 applic 05/31/19 18:17 Eucerin (Large Jar) - TP DAILY PRN DRY SKIN Multivit/Ca Carb/B Cmplx/FA/Prenat 1 tablet 06/01/19 10:00 06/01/19 09:23 Nephro-Majo - PO 1 tablet DAILY [facility] Administration Oxycodone HCl 5 mg 05/31/19 18:17 06/01/19 05:53 Roxicodone - PO 5 mg Q4H PRN Administration PAIN LEVEL 7 - 10 Polyethylene Glycol 17 gm 06/01/19 10:00 06/01/19 09:25 Miralax (For Daily Use) - PO Not Given DAILY JOV[facility] Pyridoxine HCl 100 mg 06/01/19 10:00 06/01/19 09:26 Vitamin B6 - PO 100 mg DAILY JOVITA Administration Senna 1 tab 06/01/19 10:00 06/01/19 09:23 Senna - PO 1 tab DAILY JOV[facility] Administration Sodium Chloride 2 spray 05/31/19 18:17 [place] Nas[place] - NS BID PRN NASAL CONGESTION Torsemide 20 mg 05/31/19 22:00 05/31/19 21:25 Demadex - PO 20 mg HS JOVITA Administration Valacyclovir HCl 500 mg 05/31/19 22:00 06/01/19 09:24 Valtrex - PO 500 mg BID JOVITA Administration Home Medications Medication Instructions Recorded Albuterol Sulfate 2.5 mg IH Q8H PRN 07/18/18 Ascorbic Acid [Vitamin C -] 1,000 mg PO DAILY 07/18/18 Gabapentin [Neurontin -] 100 mg PO TID 07/18/18 Ipratropium [place] 0.2 mg IH Q8H PRN 07/18/18 Vitamin B Complex 1 tab PO DAILY 07/18/18 Diltiazem Cd [Cardizem Cd -] 120 mg PO DAILY cap.cd.24h 07/23/18 Acetaminophen [Pain Relief] 650 mg PO Q6H PRN 07/29/18 Bisacodyl Suppository [Dulcolax 10 mg RC DAILY PRN 07/29/18 Suppository -] Insulin Lispro [Humalog Kwikpen 0 unit SQ ASDIR 07/29/18 U-100] Mag Hydrox/Al Hydrox/Simeth 30 ml PO DAILY PRN 07/29/18 [Mylanta Oral Suspension -] Folic Acid 1 mg PO DAILY 11/14/18 Pyridoxine HCl (B-6) [Vitamin B6 -] 100 mg PO DAILY 11/14/18 Sennosides [Senna Lax] 17.2 mg PO DAILY 11/14/18 Eliquis 5 mg PO BID 02/26/19 Glimepiride 1 mg PO AC 02/26/19 Torsemide 40 mg PO AM 02/26/19 Clindamycin [Cleocin -] 600 mg PO Q8H #42 capsule 05/19/19 Aa/Hydrolyzed Collagen, Whey [Lps 30 ml PO BID 05/23/19 15-30 Liquid] Collagenase Clostridium Hist. 1 applic TP DAILY 05/23/19 [Santyl] Cyclobenzaprine HCl [Flexeril -] 5 mg PO BID 05/23/19 Docusate Sodium [Colace] 300 mg PO DAILY 05/23/19 Fentanyl 1 each TD Q72H 05/23/19 Hydrocortisone [Preparation H] 26 gm RC DAILY 05/23/19 Imatinib Mesylate [Gleevec] 400 mg PO DAILY 05/23/19 Lactobacillus Acidophilus 1 each PO TID 05/23/19 [Acidophilus] Levothyroxine [Synthroid -] 25 mcg PO DAILY@0630 05/23/19 Lidocaine [Aspercreme] 1 each TP DAILY 05/23/19 Magnesium Hydroxide [Milk of 30 ml PO DAILY PRN 05/23/19 Magnesia] Menthol [B[place]ay Ultra Strength] 1 each TP DAILY 05/23/19 Menthol/Camphor [Sarna Anti-Itch 222 ml TP DAILY PRN 05/23/19 Lotion] Nystatin Powder [Nystop Topical 15 applic TP BID 05/23/19 Powder -] Oxycodone HCl 10 mg PO Q4HWA PRN 05/23/19 Pantoprazole Sodium [Protonix] 40 mg PO DAILY 05/23/19 Polyethylene Glycol 3350 [Miralax 17 gm PO DAILY 05/23/19 (For Daily Use) -] Polyvinyl Alcohol [Artificial 1 drop OU QID 05/23/19 Tears] Sodium Phosphate,[place]ern-Dibasic 133 ml RC PRN PRN 05/23/19 [Fleet Enema] Torsemide [Demadex -] 20 mg PO HS 05/23/19 Valacyclovir HCl [Valtrex] 500 mg PO BID 05/23/19 ASSESSMENT AND PLAN: 68 year old female with history of Multiple Myeloma, CML, DM 2, HTN, Atrial Fibrillation, Hypothyroidism, sent to the ED from [facility] for altered mental status. 1. Mild fluid overload due to IV fluid resuscitation - responded well to IV Lasix diuresis Increase in weight since admission. ABG not acidotic or hypercapneic. CXR - no significant changes. Resumed on daily Torsemide. Will give 1 x dose Lasix IV now. I/Os, Daily weights. Monitor respiratory status 2. Acute Metabolic Encephalopathy secondary to sepsis - Resolved 3. Neutropenic Sepsis secondary to bilateral LE Cellulitis, Osteomyelitis of right heel with overlying ulcer POD 1 s/p right heel debridement with implantation of abx beads R calcaneus Wound Cx positive for MRSA/Pseudomonas - On IV Zosyn/Vanco. Surgical Cx pending Blood Cx pos for MRSA, repeat Blood Cx negative. Cdiff negative, oral Vanco discontinued. Further management as per ID and Podiatry - IV Abx as per ID. Will need PICC prior to transfer to [facility]. Will resume Eliquis. Wound care - Santyl + DSD applied to bilateral feet. Will need local wound care with santyl daily to both feet 4. Neutropenia/Thrombocytopenia secondary to underlying MM/CML - neutropenia resolved s/p Neupogen. Hematology following. 5. Anemia sec to MM/CML, Chronic Disease - H/H 8.8/.9 s/p 3 unit PRBCs total. Further management as per Hematology. 6. Atrial Fibrillation - Continue Cardizem CD. Eliquis resumed. 7. ASA on CKD 3 - improving. Torsemide resumed s/p IV lasix diuresis 05/30. Will give another dose IV Lasix today. Monitor renal function. 8. HTN - on Cardizem. 9. DM 2 - Novolog sliding scale. Oral diabetic medications held. 10. CML/MM - treated with on daratumumab/velcade/imatinib - further management as per Hematology. 11. Hypothyroidism - Continue Synthroid. DVT Px - on Eliquis.
[2019-06-01] MEDS ORDERED: FUROSEMIDE 40 MG/4 ML INJECTABLE VIAL IVPUSH ONE (11:44)
[2019-06-01] MEDS: COLLAGENASE CLOSTRIDIUM HIST. 30 GRAMS TUBE TP SCH (12:21)
[2019-06-01] MEDS: ACETAMINOPHEN 325 MG TABLET (FP) PO PRN (12:55)
--- NOTE | 2019-06-01 13:12 | PN ---
Physical Exam: SUBJECTIVE: Patient seen this morning and complains of slight difficulty breathing, requesting bipap to be put back on. No acute events overnight. OBJECTIVE: Vital Signs Temperature 97.8 F 06/01/19 09:21 Pulse Rate 89 06/01/19 09:21 Respiratory Rate 24 H 06/01/19 09:21 Blood Pressure 154/66 06/01/19 09:21 O2 Sat by Pulse Oximetry (%) 100 06/01/19 09:50 GENERAL: The patient is awake, alert, and fully oriented, in no acute distress. EYES: PERRL, extraocular movements intact, sclera anicteric, conjunctiva clear. No ptosis. ENT: moist mucous membranes. NECK: Trachea midline, full range of motion, supple. LUNGS: Breath sounds equal, experitory wheezing HEART: Regular rate and rhythm, S1, S2 without murmur, rub or gallop. ABDOMEN: Soft, nontender, nondistended, normoactive bowel sounds, no guarding, no rebound, no hepatosplenomegaly, no masses. EXTREMITIES: 2+ pulses, warm, well-perfused, no edema. NEUROLOGICAL: Cranial nerves II through XII grossly intact. Normal speech, gait not observed. PSYCH: Normal mood, normal affect. SKIN: Warm, dry, normal turgor, no rashes or lesions noted CBC, BMP 06/01/19 05:26 06/01/19 05:26 Active Medications Acetaminophen (Tylenol -) 650 mg PO Q4H PRN PRN Reason: FEVER Last Admin: 06/01/19 12:55 Dose: 650 mg Albuterol Sulfate (Ventolin 0.083% Nebulizer Soln -) 1 amp NEB RQID [facility] Last Admin: 06/01/19 07:30 Dose: 1 amp Albuterol Sulfate (Ventolin Hfa Inhaler -) 1 puff IH Q8H PRN PRN Reason: SHORTNESS OF BREATH Apixaban (Eliquis -) 5 mg PO BID [facility] Artificial Tears (Artificial Tears) 1 drop OU QID [facility] Last Admin: 06/01/19 09:25 Dose: 1 drop Ascorbic Acid (Vitamin C -) 1,000 mg PO DAILY [facility] Last Admin: 06/01/19 09:23 Dose: 1,000 mg Bisacodyl (Dulcolax Suppository -) 10 mg RC DAILY PRN PRN Reason: CONSTIPATION Collagenase (Santyl -) 1 applic TP DAILY [facility]; Protocol Last Admin: 06/01/19 12:21 Dose: 1 applic Diltiazem HCl (Cardizem Cd -) 120 mg PO DAILY [facility] Last Admin: 06/01/19 09:24 Dose: 120 mg Folic Acid (Folic Acid -) 1 mg PO DAILY [facility] Last Admin: 06/01/19 09:23 Dose: 1 mg Gabapentin (Neurontin -) 100 mg PO TID [facility] Last Admin: 06/01/19 13:00 Dose: 100 mg Piperacillin Sod/Tazobactam (Sod 2.25 gm/ Dextrose) 50 mls @ 100 mls/hr IVPB Q6H-IV [facility]; Protocol Last Admin: 06/01/19 09:23 Dose: 100 mls/hr Insulin Aspart (Novolog Vial Sliding Scale -) 1 vial SQ ACHS [facility]; Protocol Last Admin: 06/01/19 11:55 Dose: 4 units Lactobacillus Acidophilus (Bacid -) 1 tab PO TID [facility] Last Admin: 06/01/19 13:00 Dose: 1 tab Levothyroxine Sodium (Synthroid -) 25 mcg PO DAILY@0630 [facility] Last Admin: 06/01/19 05:55 Dose: 25 mcg Magnesium Hydroxide (Milk Of Magnesia -) 30 ml PO DAILY PRN PRN Reason: CONSTIPATION Multi-Ingredient Lotion (Eucerin (Large Jar) -) 1 applic TP DAILY PRN PRN Reason: DRY SKIN Last Admin: 06/01/19 12:58 Dose: 1 applic Multivit/Ca Carb/B Cmplx/FA/Prenat (Nephro-Majo -) 1 tablet PO DAILY [facility] Last Admin: 06/01/19 09:23 Dose: 1 tablet Oxycodone HCl (Roxicodone -) 5 mg PO Q4H PRN PRN Reason: PAIN LEVEL 7 - 10 Last Admin: 06/01/19 12:56 Dose: 5 mg Polyethylene Glycol (Miralax (For Daily Use) -) 17 gm PO DAILY [facility] Last Admin: 06/01/19 09:25 Dose: Not Given Pyridoxine HCl (Vitamin B6 -) 100 mg PO DAILY [facility] Last Admin: 06/01/19 09:26 Dose: 100 mg Senna (Senna -) 1 tab PO DAILY [facility] Last Admin: 06/01/19 09:23 Dose: 1 tab Sodium Chloride ([place] Nasal [place] -) 2 spray NS BID PRN PRN Reason: NASAL CONGESTION Torsemide (Demadex -) 20 mg PO HS [facility] Last Admin: 05/31/19 21:25 Dose: 20 mg Valacyclovir HCl (Valtrex -) 500 mg PO BID [facility] Last Admin: 06/01/19 09:24 Dose: 500 mg ASSESSMENT/PLAN: The patient is a 68 y/o f w/ PMH CML/ multiple myeloma, DM, HTN, afib, hypothyroidism, who is admitted for sepsis 2/2 to BL LE cellulitis. #B/L cellulitis POD1 for debriedment - Patient on IV Vanc and Zosyn - Vanc level 15, will dose appropriately and speak with ID - continue wound care with santyl - patient will need PIC line to finish IV abx treatment as an outpatient #Neutropenia - 2/2 to underlying MM - resolved with neupogen - WBC 5.1 - followed by Heme Onc #anemia - Patient s/p 2 unit PRBC - Hgb stable at 8.7 continue to monitor #afib - rate controlled - continue eliquis daily - continue diltiazem 120 -Echo- LA mildly dilated, RV pressure elevated at >60, severe mitral annular calcification, moderate TR, mild , EF not calculated, technically difficult study #turner on ckd - torsemide resumed - continue to monitor kidney function #DM - A1CC : 6 - continue SS #COPD - continue albuterol, atrovent - followed by Pulm #hypothyroidism - continue synthroid #DVT ppx - on eliquis FEN Dispo Visit type - Emergency Visit Emergency Visit: No - New Patient This patient is new to me today: Yes Date on this admission: 06/01/19 - Critical Care Critical Care patient: No ATTENDING PHYSICIAN STATEMENT I saw and evaluated the patient. I reviewed the resident's note and discussed the case with the resident. I agree with the resident's findings and plan as documented. SUBJECTIVE: OBJECTIVE: ASSESSMENT AND PLAN:
[2019-06-01] MEDS ORDERED: VANCOMYCIN 750 MG in DEXTROSE 5%-WATER - 250 ML IVPB ONE (13:50)
--- NOTE | 2019-06-01 14:02 | PN ---
Progress Note, Physician History of Present Illness: Pt is alert, afebrile. Tearful c/o pain in LEs. She is s/p Rt heel debridement and antibiotic bead implantation POD#1. - Current Medication List Current Medications: Active Medications Acetaminophen (Tylenol -) 650 mg PO Q4H PRN PRN Reason: FEVER Last Admin: 06/01/19 12:55 Dose: 650 mg Albuterol Sulfate (Ventolin 0.083% Nebulizer Soln -) 1 amp NEB RQID JOVITA Last Admin: 06/01/19 07:30 Dose: 1 amp Albuterol Sulfate (Ventolin Hfa Inhaler -) 1 puff IH Q8H PRN PRN Reason: SHORTNESS OF BREATH Apixaban (Eliquis -) 5 mg PO BID [facility] Artificial Tears (Artificial Tears) 1 drop OU QID JOVITA Last Admin: 06/01/19 09:25 Dose: 1 drop Ascorbic Acid (Vitamin C -) 1,000 mg PO DAILY [facility] Last Admin: 06/01/19 09:23 Dose: 1,000 mg Bisacodyl (Dulcolax Suppository -) 10 mg RC DAILY PRN PRN Reason: CONSTIPATION Collagenase (Santyl -) 1 applic TP DAILY [facility]; Protocol Last Admin: 06/01/19 12:21 Dose: 1 applic Diltiazem HCl (Cardizem Cd -) 120 mg PO DAILY [facility] Last Admin: 06/01/19 09:24 Dose: 120 mg Folic Acid (Folic Acid -) 1 mg PO DAILY [facility] Last Admin: 06/01/19 09:23 Dose: 1 mg Gabapentin (Neurontin -) 100 mg PO TID [facility] Last Admin: 06/01/19 13:00 Dose: 100 mg Piperacillin Sod/Tazobactam (Sod 2.25 gm/ Dextrose) 50 mls @ 100 mls/hr IVPB Q6H-IV [facility]; Protocol Last Admin: 06/01/19 09:23 Dose: 100 mls/hr Vancomycin HCl 750 mg/ (Dextrose) 250 mls @ 166.667 mls/hr IVPB ONCE ONE; Protocol Stop: 06/01/19 15:19 Insulin Aspart (Novolog Vial Sliding Scale -) 1 vial SQ ACHS [facility]; Protocol Last Admin: 06/01/19 11:55 Dose: 4 units Lactobacillus Acidophilus (Bacid -) 1 tab PO TID [facility]OVITA Last Admin: 06/01/19 13:00 Dose: 1 tab Levothyroxine Sodium (Synthroid -) 25 mcg PO DAILY@0630 [facility] Last Admin: 06/01/19 05:55 Dose: 25 mcg Magnesium Hydroxide (Milk Of Magnesia -) 30 ml PO DAILY PRN PRN Reason: CONSTIPATION Multi-Ingredient Lotion (Eucerin (Large Jar) -) 1 applic TP DAILY PRN PRN Reason: DRY SKIN Last Admin: 06/01/19 12:58 Dose: 1 applic Multivit/Ca Carb/B Cmplx/FA/Prenat (Nephro-Majo -) 1 tablet PO DAILY [facility] Last Admin: 06/01/19 09:23 Dose: 1 tablet Oxycodone HCl (Roxicodone -) 5 mg PO Q4H PRN PRN Reason: PAIN LEVEL 7 - 10 Last Admin: 06/01/19 12:56 Dose: 5 mg Polyethylene Glycol (Miralax (For Daily Use) -) 17 gm PO DAILY [facility] Last Admin: 06/01/19 09:25 Dose: Not Given Pyridoxine HCl (Vitamin B6 -) 100 mg PO DAILY [facility] Last Admin: 06/01/19 09:26 Dose: 100 mg Senna (Senna -) 1 tab PO DAILY [facility] Last Admin: 06/01/19 09:23 Dose: 1 tab Sodium Chloride ([place] Nasal [place] -) 2 spray NS BID PRN PRN Reason: NASAL CONGESTION Torsemide (Demadex -) 20 mg PO HS [facility] Last Admin: 05/31/19 21:25 Dose: 20 mg Valacyclovir HCl (Valtrex -) 500 mg PO BID [facility] Last Admin: 06/01/19 09:24 Dose: 500 mg - Objective Vital Signs: Vital Signs Temperature 97.8 F 06/01/19 09:21 Pulse Rate 89 06/01/19 09:21 Respiratory Rate 24 H 06/01/19 09:21 Blood Pressure 154/66 06/01/19 09:21 O2 Sat by Pulse Oximetry (%) 100 06/01/19 09:50 Constitutional: Yes: No Distress Cardiovascular: Yes: Regular Rate and Rhythm Respiratory: Yes: Regular Gastrointestinal: Yes: Normal Bowel Sounds, Soft, Abdomen, Obese Genitourinary: Yes: WNL Extremities: Yes: Erythema (b/l LE edema, warmth, and erythema decreasing) Edema: LLE: 3+, RLE: 3+ Wound/Incision: Yes: Dressing Dry and Intact Neurological: Yes: Alert, Oriented Labs: CBC, BMP 06/01/19 05:26 06/01/19 05:26 INR, PTT INR 1.28 (0.83-1.09) H 05/30/19 07:08 Microbiology 05/30/19 21:00 Blood - Peripheral Venous Blood Culture - Preliminary NO GROWTH OBTAINED AFTER 24 HOURS, INCUBATION TO CONTINUE FOR 4 DAYS. 05/30/19 21:00 Blood - Peripheral Venous Blood Culture - Preliminary NO GROWTH OBTAINED AFTER 24 HOURS, INCUBATION TO CONTINUE FOR 4 DAYS. 05/22/19 17:50 Blood - Peripheral Venous Blood Culture - Final Mr S Aureus Corynebacterium Urealyticum 05/28/19 00:00 Stool Clostridioides difficile Antigen - Final 05/28/19 00:00 Stool Clostridioides difficile Toxin Assay - Final 05/22/19 17:50 Blood - Peripheral Venous Blood Culture - Final NO GROWTH AFTER 5 DAYS INCUBATION 05/22/19 22:40 Ulcer Gram Stain - Final 05/22/19 22:40 Ulcer Wound Culture - Final Proteus Mirabilis Pseudomonas Aeruginosa Enterobacter Cloacae Mr S Aureus Enterococcus Faecalis 05/24/19 17:00 Urine - Urine - Catheterized Urine Culture - Final NO GROWTH OBTAINED 05/23/19 05:42 Blood - Peripheral Venous FREDDY Preparation - Preliminary 05/23/19 05:42 Blood - Peripheral Venous Fungal Culture - Preliminary Problem List - Problems (1) Acute on chronic diastolic (congestive) heart failure Code(s): I50.33 - ACUTE ON CHRONIC DIASTOLIC (CONGESTIVE) HEART FAILURE (2) CML (chronic myelocytic leukemia) Code(s): C92.10 - CHRONIC MYELOID LEUK, BCR/ABL-POSITIVE, NOT ACHIEVE REMIS (3) Neutropenic fever Code(s): D70.9 - NEUTROPENIA, UNSPECIFIED; R50.81 - FEVER PRESENTING WITH CONDITIONS CLASSIFIED ELSEWHERE (4) Osteomyelitis Code(s): M86.9 - OSTEOMYELITIS, UNSPECIFIED Qualifiers: Qualified Code(s): M86.19 - Other acute osteomyelitis, multiple sites (5) Pulmonary hypertension Code(s): I27.20 - PULMONARY HYPERTENSION, UNSPECIFIED (6) Sepsis Code(s): A41.9 - SEPSIS, UNSPECIFIED ORGANISM Qualifiers: Qualified Code(s): A41.9 - Sepsis, unspecified organism (7) Diabetic foot ulcer Code(s): E11.621 - TYPE 2 DIABETES MELLITUS WITH FOOT ULCER; L97.509 - NON- PRESSURE CHRONIC ULCER OTH PRT UNSP FOOT W UNSP SEVERITY Qualifiers: Qualified Code(s): E11.621 - Type 2 diabetes mellitus with foot ulcer; L97.409 - Non-pressure chronic ulcer of unspecified heel and midfoot with unspecified severity (8) A-fib Code(s): I48.91 - UNSPECIFIED ATRIAL FIBRILLATION Qualifiers: Qualified Code(s): I48.2 - Chronic atrial fibrillation (9) ASA (acute kidney injury) Code(s): N17.9 - ACUTE KIDNEY FAILURE, UNSPECIFIED (10) Altered mental status, unspecified Code(s): R41.82 - ALTERED MENTAL STATUS, UNSPECIFIED (11) COPD (chronic obstructive pulmonary disease) Code(s): J44.9 - CHRONIC OBSTRUCTIVE PULMONARY DISEASE, UNSPECIFIED (12) Cellulitis Code(s): L03.90 - CELLULITIS, UNSPECIFIED Qualifiers: Qualified Code(s): L03.119 - Cellulitis of unspecified part of limb (13) Chronic anemia Code(s): D64.9 - ANEMIA, UNSPECIFIED (14) Diabetic neuropathy Code(s): E11.40 - TYPE 2 DIABETES MELLITUS WITH DIABETIC NEUROPATHY, UNSP (15) HTN (hypertension) Code(s): I10 - ESSENTIAL (PRIMARY) HYPERTENSION (16) T2DM (type 2 diabetes mellitus) Code(s): E11.9 - TYPE 2 DIABETES MELLITUS WITHOUT COMPLICATIONS (17) Osteomyelitis of foot Code(s): M86.9 - OSTEOMYELITIS, UNSPECIFIED Assessment/Plan Sepsis MRSA bacteremia LE cellulitis Infected foot ulcer/OM - s/p debridement and antibiotic implantation POD#1 Anemia - s/p PRBC transfusion Neutropenia s/p neupogen Acute on chronic HF ASA on CKD CML MM AFIB Pulm HTN DM Morbid obesity hypothyroidism -- continue Zosyn -- Vancomycin level noted, adjustment based on renal function, if stable and level therapeutic will start regular daily dosing with continued monitoring -- give 1 dose Vancomycin today -- repeat blood cultures neg in 24h, continue follow -- monitor renal function -- continue wound care -- currently afebrile/without distress -- continue monitor closely -- hematology following
--- NOTE | 2019-06-01 14:02 | PN ---
Progress Note (short form) - Note Progress Note: PULMONARY Much more alert today. States breathing is improving. No chest pain. Vital Signs Period Temp Pulse Resp BP Sys/Machado Pulse Ox Last 24 Hr 97.3 F-98.8 F 68-100 12-24 123-154/46-80 100-100 Intake & Output 05/29/19 05/30/19 05/31/19 06/01/19 23:59 23:59 23:59 23:59 Intake Total 800 883 200 250 Output Total 2400 2000 800 300 Balance -1600 -1117 -600 -50 Gen: more awake, alert Heart: RRR Lung: decreased breath sounds at the bases Abd: soft, nontender Ext: + edema CBC, BMP 06/01/19 05:26 06/01/19 05:26 Active Medications Acetaminophen (Tylenol -) 650 mg PO Q4H PRN PRN Reason: FEVER Last Admin: 06/01/19 12:55 Dose: 650 mg Albuterol Sulfate (Ventolin 0.083% Nebulizer Soln -) 1 amp NEB RQID [facility] Last Admin: 06/01/19 07:30 Dose: 1 amp Albuterol Sulfate (Ventolin Hfa Inhaler -) 1 puff IH Q8H PRN PRN Reason: SHORTNESS OF BREATH Apixaban (Eliquis -) 5 mg PO BID [facility] Artificial Tears (Artificial Tears) 1 drop OU QID [facility] Last Admin: 06/01/19 09:25 Dose: 1 drop Ascorbic Acid (Vitamin C -) 1,000 mg PO DAILY [facility] Last Admin: 06/01/19 09:23 Dose: 1,000 mg Bisacodyl (Dulcolax Suppository -) 10 mg RC DAILY PRN PRN Reason: CONSTIPATION Collagenase (Santyl -) 1 applic TP DAILY [facility], [facility]; Protocol Last Admin: 06/01/19 12:21 Dose: 1 applic Diltiazem HCl (Cardizem Cd -) 120 mg PO DAILY [facility] Last Admin: 06/01/19 09:24 Dose: 120 mg Folic Acid (Folic Acid -) 1 mg PO DAILY [facility] Last Admin: 06/01/19 09:23 Dose: 1 mg Gabapentin (Neurontin -) 100 mg PO TID [facility] Last Admin: 06/01/19 13:00 Dose: 100 mg Piperacillin Sod/Tazobactam (Sod 2.25 gm/ Dextrose) 50 mls @ 100 mls/hr IVPB Q6H-IV JOVITA; Protocol Last Admin: 06/01/19 09:23 Dose: 100 mls/hr Vancomycin HCl 750 mg/ (Dextrose) 250 mls @ 166.667 mls/hr IVPB ONCE ONE; Protocol Stop: 06/01/19 15:19 Insulin Aspart (Novolog Vial Sliding Scale -) 1 vial SQ ACHS [facility]; Protocol Last Admin: 06/01/19 11:55 Dose: 4 units Lactobacillus Acidophilus (Bacid -) 1 tab PO TID [facility] Last Admin: 06/01/19 13:00 Dose: 1 tab Levothyroxine Sodium (Synthroid -) 25 mcg PO DAILY@0630 [facility] Last Admin: 06/01/19 05:55 Dose: 25 mcg Magnesium Hydroxide (Milk Of Magnesia -) 30 ml PO DAILY PRN PRN Reason: CONSTIPATION Multi-Ingredient Lotion (Eucerin (Large Jar) -) 1 applic TP DAILY PRN PRN Reason: DRY SKIN Last Admin: 06/01/19 12:58 Dose: 1 applic Multivit/Ca Carb/B Cmplx/FA/Prenat (Nephro-Majo -) 1 tablet PO DAILY [facility] Last Admin: 06/01/19 09:23 Dose: 1 tablet Oxycodone HCl (Roxicodone -) 5 mg PO Q4H PRN PRN Reason: PAIN LEVEL 7 - 10 Last Admin: 06/01/19 12:56 Dose: 5 mg Polyethylene Glycol (Miralax (For Daily Use) -) 17 gm PO DAILY [facility] Last Admin: 06/01/19 09:25 Dose: Not Given Pyridoxine HCl (Vitamin B6 -) 100 mg PO DAILY [facility] Last Admin: 06/01/19 09:26 Dose: 100 mg Senna (Senna -) 1 tab PO DAILY [facility] Last Admin: 06/01/19 09:23 Dose: 1 tab Sodium Chloride ([place] Nasal [place] -) 2 spray NS BID PRN PRN Reason: NASAL CONGESTION Torsemide (Demadex -) 20 mg PO HS [facility] Last Admin: 05/31/19 21:25 Dose: 20 mg Valacyclovir HCl (Valtrex -) 500 mg PO BID [facility] Last Admin: 06/01/19 09:24 Dose: 500 mg A/P Altered Mental Status improving Acute on Chronic Diastolic Heart Failure Pulmonary HTN Volume Overload Cellulitis Osteomyelitis Sepsis Acute on Chronic Renal Failure Atrial Fibrillation Multiple Myeloma CML HTN DM Hypothyroidism Anemia Morbid Obesity - continue lasix - monitor urine output, creatinine - daily weights - monitor H/H - rate control - continue anticoagulation - O2 to keep SpO2 >90% - BiPAP as needed to assist in work of breathing - continue antibiotics/wound care Problem List - Problems (1) Acute on chronic diastolic (congestive) heart failure Code(s): I50.33 - ACUTE ON CHRONIC DIASTOLIC (CONGESTIVE) HEART FAILURE (2) Pulmonary hypertension Code(s): I27.20 - PULMONARY HYPERTENSION, UNSPECIFIED
[2019-06-01] MEDS: TORSEMIDE 20 MG TABLET (FP) PO SCH (21:58)
[2019-06-01] MEDS: APIXABAN 5 MG TABLET PO SCH (21:58)
[2019-06-02] MEDS ORDERED: PIPERACILLIN/TAZOBACTAM 2.25 GM VIAL IVPB ONE ×4 (03:42→14:36)
[2019-06-02] MEDS ORDERED: DEXTROSE 5%-WATER - 50 ML IVPB ONE ×4 (03:42→14:36)
[2019-06-02] MEDS: PIPERACILLIN/TAZOB 2.25 GM 2.25 GM in DEXTROSE 5%-WATER - 50 ML IVPB SCH ×3 (04:07→14:49)
[2019-06-02] MEDS: oxyCODONE HCL 5 MG TABLET PO PRN ×3 (04:15→22:49)
[2019-06-02] MEDS: ACETAMINOPHEN 325 MG TABLET (FP) PO PRN ×3 (04:15→22:48)
[2019-06-02] MEDS: LEVOTHYROXINE NA 25 MCG TABLET (FP) PO SCH (06:25)
[2019-06-02] MEDS: LACTOBACILLUS ACIDOPHILUS 1 TABLET PO SCH ×3 (06:25→22:48)
[2019-06-02] MEDS: GABAPENTIN 100 MG CAPSULE (FP) PO SCH ×3 (06:25→22:48)
[2019-06-02] MEDS: INSULIN SLIDING SCALE (NOVOLOG) 1 VIAL SQ SCH ×4 (06:26→22:56)
[2019-06-02 07:21] LABS: HEMATOCRIT 25.9 % (32.4-45.2); HEMOGLOBIN 8.5 GM/dL (10.7-15.3); MCH 30.1 pg (25.7-33.7); MCHC 32.8 g/dl (32.0-36.0); MEAN CELL VOLUME 91.7 fl (80-96); MEAN PLT VOLUME 9.1 fl (7.5-11.1); PLATELET COUNT 111 K/MM3 (134-434); RBC 2.82 M/mm3 (3.60-5.2); RDW 19.5 % (11.6-15.6); WHITE BLOOD COUNT 5.9 K/mm3 (4.0-10.0)
[2019-06-02 08:11] LABS: BILIRUBIN,TOTAL 0.2 mg/dL (0.2-1); BLOOD UREA NITROGEN 42.3 mg/dL (7-18); CALCIUM 8.3 mg/dL (8.5-10.1); CREATININE 1.3 mg/dL (0.55-1.3); POTASSIUM 4.5 mmol/L (3.5-5.1); TOT PROT 6.8 g/dl (6.4-8.2)
[2019-06-02] MEDS: ALBUTEROL SO4 0.083% IH SOL 2.5 MG/3 ML VIAL.NEB. NEB SCH ×2 (08:20→12:17)
[2019-06-02] MEDS: APIXABAN 5 MG TABLET PO SCH ×2 (10:02→22:48)
[2019-06-02] MEDS: SENNOSIDES 8.6MG TABLET (FP) PO SCH (10:02)
[2019-06-02] MEDS: ASCORBIC ACID 500 MG TABLET (FP) PO SCH (10:02)
[2019-06-02] MEDS: valACYclovir HCL 500 MG TABLET (FP) PO SCH ×2 (10:02→22:48)
[2019-06-02] MEDS: ARTIFICIAL TEARS (POLYVINYL ALCOHOL) OPTH DROPS OU SCH ×4 (10:03→22:53)
[2019-06-02] MEDS: VITAMIN B COMP W-C 1 EA TABLET PO SCH (10:03)
[2019-06-02] MEDS: POLYETHYLENE GLYCOL 3350 119 GM BTL PO SCH (10:03)
[2019-06-02] MEDS: FOLIC ACID 1 MG TABLET (FP) PO SCH (10:04)
[2019-06-02] MEDS: PYRIDOXINE HCL (B-6) 100 MG TABLET PO SCH (10:04)
[2019-06-02] MEDS: COLLAGENASE CLOSTRIDIUM HIST. 30 GRAMS TUBE TP SCH (10:04)
--- NOTE | 2019-06-02 12:58 | PN ---
Progress Note (short form) - Note Progress Note: PULMONARY States had difficulty breathing last night. +nonproductive cough. Vital Signs Period Temp Pulse Resp BP Sys/Machado Pulse Ox Last 24 Hr 98 F-98.6 F 70-83 20-22 126-161/51-70 93-99 Intake & Output 05/30/19 05/31/19 06/01/19 06/02/19 23:59 23:59 23:59 23:59 Intake Total 883 200 950 150 Output Total 2000 800 1600 Balance -1117 -600 -650 150 Gen: mildly tachypneic at rest Heart: RRR Lung: decreased breath sounds at the bases Abd: soft, nontender Ext: + edema CBC, BMP 06/02/19 05:30 06/02/19 05:30 Active Medications Acetaminophen (Tylenol -) 650 mg PO Q4H PRN PRN Reason: FEVER Last Admin: 06/02/19 10:01 Dose: 650 mg Albuterol Sulfate (Ventolin 0.083% Nebulizer Soln -) 1 amp NEB RQID [facility] Last Admin: 06/02/19 12:17 Dose: 1 amp Albuterol Sulfate (Ventolin Hfa Inhaler -) 1 puff IH Q8H PRN PRN Reason: SHORTNESS OF BREATH Apixaban (Eliquis -) 5 mg PO BID [facility] Last Admin: 06/02/19 10:02 Dose: 5 mg Artificial Tears (Artificial Tears) 1 drop OU QID [facility] Last Admin: 06/02/19 10:03 Dose: 1 drop Ascorbic Acid (Vitamin C -) 1,000 mg PO DAILY [facility] Last Admin: 06/02/19 10:02 Dose: 1,000 mg Bisacodyl (Dulcolax Suppository -) 10 mg RC DAILY PRN PRN Reason: CONSTIPATION Collagenase (Santyl -) 1 applic TP DAILY [facility]; Protocol Last Admin: 06/02/19 10:04 Dose: 1 applic Diltiazem HCl (Cardizem Cd -) 120 mg PO DAILY [facility] Last Admin: 06/02/19 10:02 Dose: 120 mg Folic Acid (Folic Acid -) 1 mg PO DAILY [facility] Last Admin: 06/02/19 10:04 Dose: 1 mg Gabapentin (Neurontin -) 100 mg PO TID [facility] Last Admin: 06/02/19 06:25 Dose: 100 mg Piperacillin Sod/Tazobactam (Sod 2.25 gm/ Dextrose) 50 mls @ 100 mls/hr IVPB Q6H-IV [facility]; Protocol Last Admin: 06/02/19 10:05 Dose: 100 mls/hr Insulin Aspart (Novolog Vial Sliding Scale -) 1 vial SQ ACHS [facility]; Protocol Last Admin: 06/02/19 11:44 Dose: 6 units Lactobacillus Acidophilus (Bacid -) 1 tab PO TID [facility] Last Admin: 06/02/19 06:25 Dose: 1 tab Levothyroxine Sodium (Synthroid -) 25 mcg PO DAILY@0630 [facility] Last Admin: 06/02/19 06:25 Dose: 25 mcg Magnesium Hydroxide (Milk Of Magnesia -) 30 ml PO DAILY PRN PRN Reason: CONSTIPATION Multi-Ingredient Lotion (Eucerin (Large Jar) -) 1 applic TP DAILY PRN PRN Reason: DRY SKIN Last Admin: 06/01/19 12:58 Dose: 1 applic Multivit/Ca Carb/B Cmplx/FA/Prenat (Nephro-Majo -) 1 tablet PO DAILY [facility] Last Admin: 06/02/19 10:03 Dose: 1 tablet Oxycodone HCl (Roxicodone -) 5 mg PO Q4H PRN PRN Reason: PAIN LEVEL 7 - 10 Last Admin: 06/02/19 10:01 Dose: 5 mg Polyethylene Glycol (Miralax (For Daily Use) -) 17 gm PO DAILY [facility] Last Admin: 06/02/19 10:03 Dose: Not Given Pyridoxine HCl (Vitamin B6 -) 100 mg PO DAILY [facility] Last Admin: 06/02/19 10:04 Dose: 100 mg Senna (Senna -) 1 tab PO DAILY [facility] Last Admin: 06/02/19 10:02 Dose: 1 tab Sodium Chloride ([place] Nasal [place] -) 2 spray NS BID PRN PRN Reason: NASAL CONGESTION Torsemide (Demadex -) 20 mg PO HS [facility] Last Admin: 06/01/19 21:58 Dose: 20 mg Valacyclovir HCl (Valtrex -) 500 mg PO BID [facility] Last Admin: 06/02/19 10:02 Dose: 500 mg A/P Altered Mental Status improving Acute on Chronic Diastolic Heart Failure Pulmonary HTN Volume Overload Cellulitis Osteomyelitis Sepsis Acute on Chronic Renal Failure Atrial Fibrillation Multiple Myeloma CML HTN DM Hypothyroidism Anemia Morbid Obesity - continue lasix - monitor urine output, creatinine - daily weights - monitor H/H - rate control - continue anticoagulation - O2 to keep SpO2 >90% - BiPAP as needed to assist in work of breathing - continue antibiotics/wound care Problem List - Problems (1) Acute on chronic diastolic (congestive) heart failure Code(s): I50.33 - ACUTE ON CHRONIC DIASTOLIC (CONGESTIVE) HEART FAILURE (2) Pulmonary hypertension Code(s): I27.20 - PULMONARY HYPERTENSION, UNSPECIFIED
[2019-06-02] MEDS ORDERED: ALBUTEROL SO4 0.083% IH SOL 2.5 MG/3 ML VIAL.NEB. NEB PRN (12:59)
[2019-06-02] MEDS ORDERED: FUROSEMIDE 40 MG/4 ML INJECTABLE VIAL IVPUSH ONE (12:59)
--- NOTE | 2019-06-02 15:02 | PN ---
Progress Note (short form) - Note Progress Note: SUBJECTIVE: Feels okay, no complaints. Denies dyspnea/CP/palpitations. No fever/ chills. No cough/sputum. OBJECTIVE: Afebrile, Hemodynamically Stable. Comfortable on O2 via NC. Off BiPAP. Last Vital Signs Temp Pulse Resp BP Pulse Ox 98 F 72 20 161/70 99 06/02/19 10:00 06/02/19 10:00 06/02/19 10:00 06/02/19 10:00 06/02/19 09:00 HEART: S1S2, RRR LUNGS: good air entry bilaterally, with some wheeze. ABDOMEN: Obese, soft, non-tender, normal BS EXTREMITIES: 3+ edema, erythema, chronic skin changes, R heel ulcer/foot dressed. NEURO: AAO x 3. Moving all 4 extremities. Laboratory Results - last 24 hr 05/30/19 06/01/19 06/01/19 07:08 17:09 21:56 WBC RBC Hgb Hct MCV MCH MCHC RDW Plt Count MPV Sodium Potassium Chloride Carbon Dioxide Anion Gap BUN Creatinine Est GFR (CKD-EPI)AfAm Est GFR (CKD-EPI)NonAf POC Glucometer 274 250 Random Glucose Calcium Total Bilirubin AST ALT Alkaline Phosphatase Total Protein Albumin Random Vancomycin Blood Type O POSITIVE Antibody Screen Positive Antibody Identification [place] Crossmatch See Detail 06/02/19 06/02/19 06/02/19 05:30 05:30 05:30 WBC 5.9 RBC 2.82 L Hgb 8.5 L Hct 25.9 L MCV 91.7 MCH 30.1 MCHC 32.8 RDW 19.5 H Plt Count 111 L MPV 9.1 Sodium 140 Potassium 4.5 Chloride 108 H Carbon Dioxide 24 Anion Gap 8 BUN 42.3 H Creatinine 1.3 Est GFR (CKD-EPI)AfAm 48.13 Est GFR (CKD-EPI)NonAf 41.53 POC Glucometer Random Glucose 172 H Calcium 8.3 L Total Bilirubin 0.2 AST 8 L ALT 12 L Alkaline Phosphatase 119 H Total Protein 6.8 Albumin 2.0 L Random Vancomycin 16.9 L Blood Type Antibody Screen Antibody Identification Crossmatch 06/02/19 06/02/19 06:07 11:43 WBC RBC Hgb Hct MCV MCH MCHC RDW Plt Count MPV Sodium Potassium Chloride Carbon Dioxide Anion Gap BUN Creatinine Est GFR (CKD-EPI)AfAm Est GFR (CKD-EPI)NonAf POC Glucometer 168 260 Random Glucose Calcium Total Bilirubin AST ALT Alkaline Phosphatase Total Protein Albumin Random Vancomycin Blood Type Antibody Screen Antibody Identification Crossmatch Current Medications Generic Name Dose Route Start Last Admin Trade Name Freq PRN Reason Stop Dose Admin Acetaminophen 650 mg 05/31/19 18:17 06/02/19 10:01 Tylenol - PO 650 mg Q4H PRN Administration FEVER Albuterol Sulfate 1 amp 06/02/19 12:59 Ventolin 0.083% Nebulizer Soln - NEB Q6H PRN SHORT OF BREATH/WHEEZING Albuterol/Ipratropium 1 amp 06/02/19 16:00 Duoneb - NEB RQID JOVITA Apixaban 5 mg 05/31/19 22:00 06/02/19 10:02 Eliquis - PO 5 mg BID JOVITA Administration Artificial Tears 1 drop 05/31/19 22:00 06/02/19 13:13 Artificial Tears OU 1 drop QID JOVITA Administration Ascorbic Acid 1,000 mg 06/01/19 10:00 06/02/19 10:02 Vitamin C - PO 1,000 mg DAILY JOVITA Administration Bisacodyl 10 mg 05/31/19 18:17 Dulcolax Suppository - RC DAILY PRN CONSTIPATION Collagenase 1 applic 06/01/19 10:00 06/02/19 10:04 Santyl - TP 1 applic DAILY JOVITA Administration Protocol Diltiazem HCl 120 mg 06/01/19 10:00 06/02/19 10:02 Cardizem Cd - PO 120 mg DAILY JOVTIA Administration Folic Acid 1 mg 06/01/19 10:00 06/02/19 10:04 Folic Acid - PO 1 mg DAILY JOVITA Administration Gabapentin 100 mg 05/31/19 22:00 06/02/19 13:13 Neurontin - PO 100 mg TID JOVITA Administration Piperacillin Sod/Tazobactam 50 mls @ 100 mls/hr 05/31/19 21:00 06/02/19 14:49 Sod 2.25 gm/ Dextrose IVPB 100 mls/hr Q6H-IV JOVITA Administration Protocol Insulin Aspart 1 vial 05/31/19 22:00 06/02/19 11:44 Novolog Vial Sliding Scale - SQ 6 units ACHS JOVITA Administration Protocol Lactobacillus Acidophilus 1 tab 05/31/19 22:00 06/02/19 13:13 Bacid - PO 1 tab TID JOVITA Administration Levothyroxine Sodium 25 mcg 06/01/19 06:30 06/02/19 06:25 Synthroid - PO 25 mcg DAILY@0630 JOVITA Administration Magnesium Hydroxide 30 ml 05/31/19 18:17 Milk Of Magnesia - PO DAILY PRN CONSTIPATION Multi-Ingredient Lotion 1 applic 05/31/19 18:17 06/01/19 12:58 Eucerin (Large Jar) - TP 1 applic DAILY PRN Administration DRY SKIN Multivit/Ca Carb/B Cmplx/FA/Prenat 1 tablet 06/01/19 10:00 06/02/19 10:03 Nephro-Majo - PO 1 tablet DAILY JOVITA Administration Oxycodone HCl 5 mg 05/31/19 18:17 06/02/19 10:01 Roxicodone - PO 5 mg Q4H PRN Administration PAIN LEVEL 7 - 10 Polyethylene Glycol 17 gm 06/01/19 10:00 06/02/19 10:03 Miralax (For Daily Use) - PO Not Given DAILY JOVITA Pyridoxine HCl 100 mg 06/01/19 10:00 06/02/19 10:04 Vitamin B6 - PO 100 mg DAILY [facility]OVITA Administration Senna 1 tab 06/01/19 10:00 06/02/19 10:02 Senna - PO 1 tab DAILY [facility] Administration Sodium Chloride 2 spray 05/31/19 18:17 [place] Nasal [place] - NS BID PRN NASAL CONGESTION Torsemide 20 mg 05/31/19 22:00 06/01/19 21:58 Demadex - PO 20 mg HS JOVITA Administration Valacyclovir HCl 500 mg 05/31/19 22:00 06/02/19 10:02 Valtrex - PO 500 mg BID JOVITA Administration Home Medications Medication Instructions Recorded Albuterol Sulfate 2.5 mg IH Q8H PRN 07/18/18 Ascorbic Acid [Vitamin C -] 1,000 mg PO DAILY 07/18/18 Gabapentin [Neurontin -] 100 mg PO TID 07/18/18 Ipratropium [place] 0.2 mg IH Q8H PRN 07/18/18 Vitamin B Complex 1 tab PO DAILY 07/18/18 Diltiazem Cd [Cardizem Cd -] 120 mg PO DAILY cap.cd.24h 11/19/18 Acetaminophen [Pain Relief] 650 mg PO Q6H PRN 07/29/18 Bisacodyl Suppository [Dulcolax 10 mg RC DAILY PRN 07/29/18 Suppository -] Insulin Lispro [Humalog Kwikpen 0 unit SQ ASDIR 07/29/18 U-100] Mag Hydrox/Al Hydrox/Simeth 30 ml PO DAILY PRN 07/29/18 [Mylanta Oral Suspension -] Folic Acid 1 mg PO DAILY 11/14/18 Pyridoxine HCl (B-6) [Vitamin B6 -] 100 mg PO DAILY 11/14/18 Sennosides [Senna Lax] 17.2 mg PO DAILY 11/14/18 Eliquis 5 mg PO BID 02/26/19 Glimepiride 1 mg PO AC 02/26/19 Torsemide 40 mg PO AM 02/26/19 Clindamycin [Cleocin -] 600 mg PO Q8H #42 capsule 05/19/19 Aa/Hydrolyzed Collagen, Whey [Lps 30 ml PO BID 05/23/19 15-30 Liquid] Collagenase Clostridium Hist. 1 applic TP DAILY 05/23/19 [Santyl] Cyclobenzaprine HCl [Flexeril -] 5 mg PO BID 05/23/19 Docusate Sodium [Colace] 300 mg PO DAILY 05/23/19 Fentanyl 1 each TD Q72H 05/23/19 Hydrocortisone [Preparation H] 26 gm RC DAILY 05/23/19 Imatinib Mesylate [Gleevec] 400 mg PO DAILY 05/23/19 Lactobacillus Acidophilus 1 each PO TID 05/23/19 [Acidophilus] Levothyroxine [Synthroid -] 25 mcg PO DAILY@0630 05/23/19 Lidocaine [Aspercreme] 1 each TP DAILY 05/23/19 Magnesium Hydroxide [Milk of 30 ml PO DAILY PRN 05/23/19 Magnesia] Menthol [[place] Ultra Strength] 1 each TP DAILY 05/23/19 Menthol/Camphor [Sarna Anti-Itch 222 ml TP DAILY PRN 05/23/19 Lotion] Nystatin Powder [Nystop Topical 15 applic TP BID 05/23/19 Powder -] Oxycodone HCl 10 mg PO Q4HWA PRN 05/23/19 Pantoprazole Sodium [Protonix] 40 mg PO DAILY 05/23/19 Polyethylene Glycol 3350 [Miralax 17 gm PO DAILY 05/23/19 (For Daily Use) -] Polyvinyl Alcohol [Artificial 1 drop OU QID 05/23/19 Tears] Sodium Phosphate,[place]-Dibasic 133 ml RC PRN PRN 05/23/19 [Fleet Enema] Torsemide [Demadex -] 20 mg PO HS 05/23/19 Valacyclovir HCl [Valtrex] 500 mg PO BID 05/23/19 ASSESSMENT AND PLAN: 68 year old female with history of Multiple Myeloma, CML, DM 2, HTN, Atrial Fibrillation, Hypothyroidism, sent to the ED from [facility] for altered mental status. 1. Mild fluid overload due to IV fluid resuscitation - responded well to IV Lasix diuresis. ABG not acidotic or hypercapneic. CXR - no significant changes. Resumed on daily Torsemide. IV Lasix given again today. I/Os, Daily weights. Monitor respiratory status 2. Acute Metabolic Encephalopathy secondary to sepsis - Resolved 3. Neutropenic Sepsis secondary to bilateral LE Cellulitis, Osteomyelitis of right heel with overlying ulcer. Neutropenia resolved. POD 2 s/p right heel debridement with implantation of Abx beads R calcaneus Wound Cx positive for MRSA/Pseudomonas - On IV Zosyn/Vanco. Surgical Cx pending Blood Cx pos for MRSA, repeat Blood Cx negative. Cdiff negative, oral Vanco discontinued. Further management as per ID and Podiatry - IV Abx as per ID. Will need PICC prior to transfer to [facility]. Resumed on Eliquis. Wound care - Santyl + DSD applied to bilateral feet. Will need local wound care with santyl daily to both feet. 4. Neutropenia/Thrombocytopenia secondary to underlying MM/CML - neutropenia resolved s/p Neupogen. Hematology following. 5. Anemia sec to MM/CML, Chronic Disease - H/H 8.5/25.9 s/p 3 unit PRBCs total. Further management as per Hematology. 6. Atrial Fibrillation - Continue Cardizem CD and Eliquis. 7. ASA on CKD 3 - improving. Torsemide resumed. Ongoing IV Lasix diuresis. Monitor renal function. 8. HTN - on Cardizem. 9. DM 2 - Novolog sliding scale. Oral diabetic medications held. 10. CML/MM - treated with on daratumumab/velcade/imatinib - further management as per Hematology. 11. Hypothyroidism - Continue Synthroid. DVT Px - on Eliquis. Dispo - Awaiting PICC and transfer to SNF. Visit type - Emergency Visit Emergency Visit: Yes ED Registration Date: 05/22/19 Care time: The patient presented to the Emergency Department on the above date and was hospitalized for further evaluation of their emergent condition. - New Patient This patient is new to me today: No - Critical Care Critical Care patient: No - Discharge Referral Referred to [facility] Med P.C.: No
--- NOTE | 2019-06-02 15:26 | PN ---
Progress Note, Physician History of Present Illness: Pt afebrile, alert. C/O SOB today. Has been given Lasix dose and albuterol. States she is not urinating but as per RN she is urinating a normal amount. ? rash on flank - Current Medication List Current Medications: Active Medications Acetaminophen (Tylenol -) 650 mg PO Q4H PRN PRN Reason: FEVER Last Admin: 06/02/19 10:01 Dose: 650 mg Albuterol Sulfate (Ventolin 0.083% Nebulizer Soln -) 1 amp NEB Q6H PRN PRN Reason: SHORT OF BREATH/WHEEZING Albuterol/Ipratropium (Duoneb -) 1 amp NEB RQID [facility] Apixaban (Eliquis -) 5 mg PO BID [facility] Last Admin: 06/02/19 10:02 Dose: 5 mg Artificial Tears (Artificial Tears) 1 drop OU QID [facility] Last Admin: 06/02/19 13:13 Dose: 1 drop Ascorbic Acid (Vitamin C -) 1,000 mg PO DAILY [facility] Last Admin: 06/02/19 10:02 Dose: 1,000 mg Bisacodyl (Dulcolax Suppository -) 10 mg RC DAILY PRN PRN Reason: CONSTIPATION Collagenase (Santyl -) 1 applic TP DAILY [facility]; Protocol Last Admin: 06/02/19 10:04 Dose: 1 applic Diltiazem HCl (Cardizem Cd -) 120 mg PO DAILY [facility] Last Admin: 06/02/19 10:02 Dose: 120 mg Folic Acid (Folic Acid -) 1 mg PO DAILY [facility] Last Admin: 06/02/19 10:04 Dose: 1 mg Gabapentin (Neurontin -) 100 mg PO TID [facility] Last Admin: 06/02/19 13:13 Dose: 100 mg Piperacillin Sod/Tazobactam (Sod 2.25 gm/ Dextrose) 50 mls @ 100 mls/hr IVPB Q6H-IV [facility]; Protocol Last Admin: 06/02/19 14:49 Dose: 100 mls/hr Vancomycin HCl (Vancomycin (Pre-Docked)) 1,000 mg in 250 mls @ 166.667 mls/hr IVPB ONCE ONE; Protocol Stop: 06/02/19 19:29 Insulin Aspart (Novolog Vial Sliding Scale -) 1 vial SQ ACHS [facility]; Protocol Last Admin: 06/02/19 11:44 Dose: 6 units Lactobacillus Acidophilus (Bacid -) 1 tab PO TID [facility] Last Admin: 06/02/19 13:13 Dose: 1 tab Levothyroxine Sodium (Synthroid -) 25 mcg PO DAILY@0630 [facility] Last Admin: 06/02/19 06:25 Dose: 25 mcg Magnesium Hydroxide (Milk Of Magnesia -) 30 ml PO DAILY PRN PRN Reason: CONSTIPATION Multi-Ingredient Lotion (Eucerin (Large Jar) -) 1 applic TP DAILY PRN PRN Reason: DRY SKIN Last Admin: 06/01/19 12:58 Dose: 1 applic Multivit/Ca Carb/B Cmplx/FA/Prenat (Nephro-Majo -) 1 tablet PO DAILY [facility] Last Admin: 06/02/19 10:03 Dose: 1 tablet Oxycodone HCl (Roxicodone -) 5 mg PO Q4H PRN PRN Reason: PAIN LEVEL 7 - 10 Last Admin: 06/02/19 10:01 Dose: 5 mg Polyethylene Glycol (Miralax (For Daily Use) -) 17 gm PO DAILY [facility] Last Admin: 06/02/19 10:03 Dose: Not Given Pyridoxine HCl (Vitamin B6 -) 100 mg PO DAILY [facility] Last Admin: 06/02/19 10:04 Dose: 100 mg Senna (Senna -) 1 tab PO DAILY [facility] Last Admin: 06/02/19 10:02 Dose: 1 tab Sodium Chloride ([place] Nasal [place] -) 2 spray NS BID PRN PRN Reason: NASAL CONGESTION Torsemide (Demadex -) 20 mg PO HS [facility] Last Admin: 06/01/19 21:58 Dose: 20 mg Valacyclovir HCl (Valtrex -) 500 mg PO BID [facility] Last Admin: 06/02/19 10:02 Dose: 500 mg - Objective Vital Signs: Vital Signs Temperature 98 F 06/02/19 10:00 Pulse Rate 72 06/02/19 10:00 Respiratory Rate 20 06/02/19 10:00 Blood Pressure 161/70 06/02/19 10:00 O2 Sat by Pulse Oximetry (%) 99 06/02/19 09:00 Constitutional: Yes: Mild Distress Cardiovascular: Yes: Regular Rate and Rhythm Respiratory: Yes: Wheezes (faint) Gastrointestinal: Yes: Normal Bowel Sounds, Soft, Abdomen, Obese Genitourinary: Yes: WNL Edema: RUE: 2+ (Rt forearm), LLE: 3+, RLE: 3+ Integumentary: Yes: Erythema (b/l LE erythema and warmt decreased, Rt forearm erythema (chronic?) Faint rash on flank, no vesicles/pustules) Wound/Incision: Yes: Dressing Dry and Intact Neurological: Yes: Alert Labs: CBC, BMP 06/02/19 05:30 06/02/19 05:30 INR, PTT INR 1.28 (0.83-1.09) H 05/30/19 07:08 Microbiology 05/31/19 17:34 Foot - Right Heel Gram Stain - Final 05/31/19 17:34 Foot - Right Heel Wound Culture - Preliminary Pending Organism Pending Organism#2 05/30/19 21:00 Blood - Peripheral Venous Blood Culture - Preliminary NO GROWTH OBTAINED AFTER 48 HOURS, INCUBATION TO CONTINUE FOR 3 DAYS. 05/30/19 21:00 Blood - Peripheral Venous Blood Culture - Preliminary NO GROWTH OBTAINED AFTER 48 HOURS, INCUBATION TO CONTINUE FOR 3 DAYS. 05/22/19 17:50 Blood - Peripheral Venous Blood Culture - Final Mr S Aureus Corynebacterium Urealyticum 05/28/19 00:00 Stool Clostridioides difficile Antigen - Final 05/28/19 00:00 Stool Clostridioides difficile Toxin Assay - Final 05/22/19 17:50 Blood - Peripheral Venous Blood Culture - Final NO GROWTH AFTER 5 DAYS INCUBATION 05/22/19 22:40 Ulcer Gram Stain - Final 05/22/19 22:40 Ulcer Wound Culture - Final Proteus Mirabilis Pseudomonas Aeruginosa Enterobacter Cloacae Mr S Aureus Enterococcus Faecalis 05/24/19 17:00 Urine - Urine - Catheterized Urine Culture - Final NO GROWTH OBTAINED 05/23/19 05:42 Blood - Peripheral Venous FREDDY Preparation - Preliminary 05/23/19 05:42 Blood - Peripheral Venous Fungal Culture - Preliminary Problem List - Problems (1) Acute on chronic diastolic (congestive) heart failure Code(s): I50.33 - ACUTE ON CHRONIC DIASTOLIC (CONGESTIVE) HEART FAILURE (2) CML (chronic myelocytic leukemia) Code(s): C92.10 - CHRONIC MYELOID LEUK, BCR/ABL-POSITIVE, NOT ACHIEVE REMIS (3) Neutropenic fever Code(s): D70.9 - NEUTROPENIA, UNSPECIFIED; R50.81 - FEVER PRESENTING WITH CONDITIONS CLASSIFIED ELSEWHERE (4) Osteomyelitis Code(s): M86.9 - OSTEOMYELITIS, UNSPECIFIED Qualifiers: Osteomyelitis type: other acute Osteomyelitis location: multiple sites Qualified Code(s): M86.19 - Other acute osteomyelitis, multiple sites (5) Pulmonary hypertension Code(s): I27.20 - PULMONARY HYPERTENSION, UNSPECIFIED (6) Sepsis Code(s): A41.9 - SEPSIS, UNSPECIFIED ORGANISM Qualifiers: Sepsis type: sepsis due to unspecified organism Sepsis acute organ dysfunction status: unspecified Qualified Code(s): A41.9 - Sepsis, unspecified organism (7) Diabetic foot ulcer Code(s): E11.621 - TYPE 2 DIABETES MELLITUS WITH FOOT ULCER; L97.509 - NON- PRESSURE CHRONIC ULCER OTH PRT UNSP FOOT W UNSP SEVERITY Qualifiers: Diabetic foot ulcer location: heel Diabetes mellitus type: type 2 Laterality: unspecified laterality Non-pressure ulcer stage: unspecified non- pressure ulcer stage Qualified Code(s): E11.621 - Type 2 diabetes mellitus with foot ulcer; L97.409 - Non-pressure chronic ulcer of unspecified heel and midfoot with unspecified severity (8) A-fib Code(s): I48.91 - UNSPECIFIED ATRIAL FIBRILLATION Qualifiers: Atrial fibrillation type: chronic Qualified Code(s): I48.2 - Chronic atrial fibrillation (9) ASA (acute kidney injury) Code(s): N17.9 - ACUTE KIDNEY FAILURE, UNSPECIFIED (10) Altered mental status, unspecified Code(s): R41.82 - ALTERED MENTAL STATUS, UNSPECIFIED (11) COPD (chronic obstructive pulmonary disease) Code(s): J44.9 - CHRONIC OBSTRUCTIVE PULMONARY DISEASE, UNSPECIFIED (12) Cellulitis Code(s): L03.90 - CELLULITIS, UNSPECIFIED Qualifiers: Site of cellulitis: extremity Site of cellulitis of extremity: lower extremity Laterality: unspecified laterality Qualified Code(s): L03.119 - Cellulitis of unspecified part of limb (13) Chronic anemia Code(s): D64.9 - ANEMIA, UNSPECIFIED (14) Diabetic neuropathy Code(s): E11.40 - TYPE 2 DIABETES MELLITUS WITH DIABETIC NEUROPATHY, UNSP (15) HTN (hypertension) Code(s): I10 - ESSENTIAL (PRIMARY) HYPERTENSION (16) T2DM (type 2 diabetes mellitus) Code(s): E11.9 - TYPE 2 DIABETES MELLITUS WITHOUT COMPLICATIONS Qualifiers: Diabetes mellitus complication status: with neurologic complications (17) Osteomyelitis of foot Code(s): M86.9 - OSTEOMYELITIS, UNSPECIFIED Qualifiers: Laterality: right Assessment/Plan s/p Sepsis MRSA bacteremia LE cellulitis Infected foot ulcer/OM - s/p debridement and antibiotic implantation POD#2 Anemia - s/p PRBC transfusion Neutropenia s/p neupogen Acute on chronic HF ASA on CKD - improving CML MM AFIB Pulm HTN DM Morbid obesity hypothyroidism Rash - can not exclude allergic reaction SOB -- d/c Zosyn, switch to Meropenem, monitor for progression of rash -- f/u Rt heel wound cultures -- Vancomycin level noted, give 750 mg dose today, recheck level in a.m. -- renal function improving, continue monitor -- repeat blood cultures neg in 48hr -- if SOB persists suggest repeat CXR, given lasix and bronchodilator recently, monitor closely -- ? RUE erythema/edema chronic - consider doppler if acute -- continue wound care
[2019-06-02] MEDS ORDERED: VANCOMYCIN 750 MG in DEXTROSE 5%-WATER - 250 ML IVPB SCH (15:30)
[2019-06-02] MEDS ORDERED: DEXTROSE 5%-WATER 100 ML IVPB ONE (16:24)
[2019-06-02] MEDS ORDERED: MEROPENEM 1 GM VIAL (RESTRICTED TO ID) IVPB ONE (16:24)
[2019-06-02] MEDS: ALBUTEROL SO4 2.5/IPRATROPIUM 0.5 INH SOL 3 ML VIAL.NEB. NEB SCH ×2 (16:41→20:20)
[2019-06-02] MEDS: MEROPENEM 1 GM in DEXTROSE 5%-WATER 100 ML IVPB SCH (17:01)
[2019-06-02] MEDS ORDERED: VANCOMYCIN 1 GRAM (PRE-DOCKED) 1,000 MG/250 ML BAG IVPB ONE (18:00)
[2019-06-02] MEDS: TORSEMIDE 20 MG TABLET (FP) PO SCH (22:48)
[2019-06-03] MEDS: oxyCODONE HCL 5 MG TABLET PO PRN ×6 (02:55→23:57)
[2019-06-03] MEDS ORDERED: MEROPENEM 1 GM VIAL (RESTRICTED TO ID) IVPB ONE ×2 (03:08→14:42)
[2019-06-03] MEDS ORDERED: DEXTROSE 5%-WATER 100 ML IVPB ONE ×2 (03:08→14:42)
[2019-06-03] MEDS: MEROPENEM 1 GM in DEXTROSE 5%-WATER 100 ML IVPB SCH ×2 (03:23→14:47)
[2019-06-03] MEDS: INSULIN SLIDING SCALE (NOVOLOG) 1 VIAL SQ SCH ×4 (06:15→21:46)
[2019-06-03] MEDS: LEVOTHYROXINE NA 25 MCG TABLET (FP) PO SCH (06:45)
[2019-06-03] MEDS: GABAPENTIN 100 MG CAPSULE (FP) PO SCH ×3 (06:46→21:46)
[2019-06-03] MEDS: LACTOBACILLUS ACIDOPHILUS 1 TABLET PO SCH ×3 (06:46→21:46)
[2019-06-03] MEDS: ALBUTEROL SO4 2.5/IPRATROPIUM 0.5 INH SOL 3 ML VIAL.NEB. NEB SCH ×4 (07:35→20:53)
[2019-06-03 07:41] LABS: BASO % 0.4 % (0-2.0); EOS % 3.3 % (0-4.5); HEMATOCRIT 25.9 % (32.4-45.2); HEMOGLOBIN 8.7 GM/dL (10.7-15.3); LYMPH % 4.2 % (8-40); MCH 30.5 pg (25.7-33.7); MCHC 33.6 g/dl (32.0-36.0); MEAN PLT VOLUME 8.6 fl (7.5-11.1); MONO % 3.2 % (3.8-10.2); NEUT % 88.9 % (42.8-82.8); PLATELET COUNT 114 K/MM3 (134-434); RBC 2.85 M/mm3 (3.60-5.2)
[2019-06-03 07:54] LABS: BLOOD UREA NITROGEN 38.4 mg/dL (7-18); CALCIUM 8.2 mg/dL (8.5-10.1); CREATININE 1.2 mg/dL (0.55-1.3); PHOSPHOROUS 4.4 mg/dL (2.5-4.9); POTASSIUM 4.5 mmol/L (3.5-5.1)
[2019-06-03] MEDS: ACETAMINOPHEN 325 MG TABLET (FP) PO PRN ×4 (08:14→23:58)
[2019-06-03] MEDS: PYRIDOXINE HCL (B-6) 100 MG TABLET PO SCH (09:37)
[2019-06-03] MEDS: VITAMIN B COMP W-C 1 EA TABLET PO SCH (09:37)
[2019-06-03] MEDS: valACYclovir HCL 500 MG TABLET (FP) PO SCH ×2 (09:37→21:45)
[2019-06-03] MEDS: APIXABAN 5 MG TABLET PO SCH ×2 (09:38→21:45)
[2019-06-03] MEDS: ASCORBIC ACID 500 MG TABLET (FP) PO SCH (09:38)
[2019-06-03] MEDS: POLYETHYLENE GLYCOL 3350 119 GM BTL PO SCH (09:38)
[2019-06-03] MEDS: FOLIC ACID 1 MG TABLET (FP) PO SCH (09:38)
[2019-06-03] MEDS: ARTIFICIAL TEARS (POLYVINYL ALCOHOL) OPTH DROPS OU SCH ×4 (09:41→21:49)
[2019-06-03] MEDS: SENNOSIDES 8.6MG TABLET (FP) PO SCH (09:46)
--- NOTE | 2019-06-03 11:12 | PN ---
Progress Note (short form) - Note Progress Note: Hematology and Oncology follow up Subjective: Patient seen and examined at bedside. Patient is s/p abx bead placement and debridement of DM foot wound w/ podiatry. Paitnent c/o wheezing an SOB today; nebs en route. Objective: Vital Signs Temperature 97.9 F 06/03/19 09:00 Pulse Rate 92 H 06/03/19 09:00 Respiratory Rate 17 06/03/19 09:00 Blood Pressure 150/60 06/03/19 09:00 O2 Sat by Pulse Oximetry (%) 100 06/03/19 09:00 PE: Gen: Patient lying bed in NAD. She is awake and alert. Cardio: regular rate and rhythm. S1, S2 heard. No murmurs, gallops, rubs Pulm: coarse inspiratory wheezes heard throughout all lung [place]. Abdomen: Soft, nontender, nondistended. Bowel sounds heard. CBC, BMP 06/03/19 05:20 06/03/19 05:20 Assessment & plan: The patient is a 68 y/o f w/ PMH CML/ multiple myeloma (daratumumab/velcade/ dex and imatinib) admitted for neutropenic fever. #anemia -Hb 8.7 today -will continue to trend -false positive ab screen 2/2 daratumumab use; suggest getting type and cross from [place] [facility] if she requires transfusion -maintain normal transfusion thresholds #Diabetic foot wound -per podiatry, probes to bone -s/p ABX seed placement -post op care per podiatry #SOB/Wheezing -Likely 2/2 fluid overload -LE swollen, crackles at the bases -Pulm following #neutropenic fever -afebrile >24hrs -s/p neupogen -WBC 5.0 -on vanc/zosyn -ID following -holding biologics
--- NOTE | 2019-06-03 11:14 | PN ---
Progress Note, Physician History of Present Illness: PULMONARY ALERT,C/O INCREASED SOB TODAY - Current Medication List Current Medications: Active Medications Acetaminophen (Tylenol -) 650 mg PO Q4H PRN PRN Reason: FEVER Last Admin: 06/03/19 08:14 Dose: 650 mg Albuterol Sulfate (Ventolin 0.083% Nebulizer Soln -) 1 amp NEB Q6H PRN PRN Reason: SHORT OF BREATH/WHEEZING Last Admin: 06/02/19 22:19 Dose: 1 amp Albuterol/Ipratropium (Duoneb -) 1 amp NEB RQID [facility] Last Admin: 06/03/19 07:35 Dose: 1 amp Apixaban (Eliquis -) 5 mg PO BID [facility] Last Admin: 06/03/19 09:38 Dose: 5 mg Artificial Tears (Artificial Tears) 1 drop OU QID [facility] Last Admin: 06/03/19 09:41 Dose: 1 drop Ascorbic Acid (Vitamin C -) 1,000 mg PO DAILY [facility] Last Admin: 06/03/19 09:38 Dose: 1,000 mg Bisacodyl (Dulcolax Suppository -) 10 mg RC DAILY PRN PRN Reason: CONSTIPATION Collagenase (Santyl -) 1 applic TP DAILY [facility]; Protocol Last Admin: 06/02/19 10:04 Dose: 1 applic Diltiazem HCl (Cardizem Cd -) 120 mg PO DAILY [facility] Last Admin: 06/03/19 09:38 Dose: 120 mg Folic Acid (Folic Acid -) 1 mg PO DAILY [facility] Last Admin: 06/03/19 09:38 Dose: 1 mg Gabapentin (Neurontin -) 100 mg PO TID [facility] Last Admin: 06/03/19 06:46 Dose: 100 mg Vancomycin HCl 750 mg/ (Dextrose) 250 mls @ 200 mls/hr IVPB Q24H [facility]; Protocol Stop: 06/03/19 15:29 Last Admin: 06/02/19 16:17 Dose: 200 mls/hr Meropenem 1 gm/ Dextrose 100 mls @ 0 mls/hr IVPB Q12H [facility] Last Admin: 06/03/19 03:23 Dose: 100 mls/hr Insulin Aspart (Novolog Vial Sliding Scale -) 1 vial SQ ACHS [facility]; Protocol Last Admin: 06/03/19 06:15 Dose: Not Given Lactobacillus Acidophilus (Bacid -) 1 tab PO TID [facility] Last Admin: 06/03/19 06:46 Dose: 1 tab Levothyroxine Sodium (Synthroid -) 25 mcg PO DAILY@0630 [facility] Last Admin: 06/03/19 06:45 Dose: 25 mcg Magnesium Hydroxide (Milk Of Magnesia -) 30 ml PO DAILY PRN PRN Reason: CONSTIPATION Multi-Ingredient Lotion (Eucerin (Large Jar) -) 1 applic TP DAILY PRN PRN Reason: DRY SKIN Last Admin: 06/01/19 12:58 Dose: 1 applic Multivit/Ca Carb/B Cmplx/FA/Prenat (Nephro-Majo -) 1 tablet PO DAILY [facility] Last Admin: 06/03/19 09:37 Dose: 1 tablet Oxycodone HCl (Roxicodone -) 5 mg PO Q4H PRN PRN Reason: PAIN LEVEL 7 - 10 Last Admin: 06/03/19 08:13 Dose: 5 mg Polyethylene Glycol (Miralax (For Daily Use) -) 17 gm PO DAILY [facility] Last Admin: 06/03/19 09:38 Dose: Not Given Pyridoxine HCl (Vitamin B6 -) 100 mg PO DAILY [facility] Last Admin: 06/03/19 09:37 Dose: 100 mg Senna (Senna -) 1 tab PO DAILY [facility] Last Admin: 06/03/19 09:46 Dose: Not Given Sodium Chloride ([place] Nasal [place] -) 2 spray NS BID PRN PRN Reason: NASAL CONGESTION Torsemide (Demadex -) 20 mg PO HS [facility] Last Admin: 06/02/19 22:48 Dose: 20 mg Valacyclovir HCl (Valtrex -) 500 mg PO BID [facility] Last Admin: 06/03/19 09:37 Dose: 500 mg - Objective Vital Signs: Vital Signs Temperature 97.9 F 06/03/19 09:00 Pulse Rate 92 H 06/03/19 09:00 Respiratory Rate 17 06/03/19 09:00 Blood Pressure 150/60 06/03/19 09:00 O2 Sat by Pulse Oximetry (%) 100 06/03/19 09:00 Constitutional: Yes: Well Nourished, Calm, Obese Eyes: Yes: WNL HENT: Yes: WNL Neck: Yes: WNL Cardiovascular: Yes: Pulse Irregular, S1, S2 Respiratory: Yes: Wheezes (BILATERAL WHEEZES) Gastrointestinal: Yes: Normal Bowel Sounds, Soft Extremities: Yes: Erythema Edema: Yes Labs: CBC, BMP 06/03/19 05:20 06/03/19 05:20 INR, PTT INR 1.28 (0.83-1.09) H 05/30/19 07:08 Problem List - Problems (1) Acute on chronic diastolic (congestive) heart failure Code(s): I50.33 - ACUTE ON CHRONIC DIASTOLIC (CONGESTIVE) HEART FAILURE (2) CML (chronic myelocytic leukemia) Code(s): C92.10 - CHRONIC MYELOID LEUK, BCR/ABL-POSITIVE, NOT ACHIEVE REMIS (3) Sepsis Code(s): A41.9 - SEPSIS, UNSPECIFIED ORGANISM Qualifiers: Sepsis type: sepsis due to unspecified organism Sepsis acute organ dysfunction status: unspecified Qualified Code(s): A41.9 - Sepsis, unspecified organism (4) Diabetic foot ulcer Code(s): E11.621 - TYPE 2 DIABETES MELLITUS WITH FOOT ULCER; L97.509 - NON- PRESSURE CHRONIC ULCER OTH PRT UNSP FOOT W UNSP SEVERITY Qualifiers: Diabetic foot ulcer location: heel Diabetes mellitus type: type 2 Laterality: unspecified laterality Non-pressure ulcer stage: unspecified non- pressure ulcer stage Qualified Code(s): E11.621 - Type 2 diabetes mellitus with foot ulcer; L97.409 - Non-pressure chronic ulcer of unspecified heel and midfoot with unspecified severity (5) A-fib Code(s): I48.91 - UNSPECIFIED ATRIAL FIBRILLATION Qualifiers: Atrial fibrillation type: chronic Qualified Code(s): I48.2 - Chronic atrial fibrillation (6) Altered mental status, unspecified Code(s): R41.82 - ALTERED MENTAL STATUS, UNSPECIFIED (7) HTN (hypertension) Code(s): I10 - ESSENTIAL (PRIMARY) HYPERTENSION (8) Lymphedema Code(s): I89.0 - LYMPHEDEMA, NOT ELSEWHERE CLASSIFIED (9) T2DM (type 2 diabetes mellitus) Code(s): E11.9 - TYPE 2 DIABETES MELLITUS WITHOUT COMPLICATIONS Qualifiers: Diabetes mellitus complication detail: with unspecified neuropathy (10) Toxic metabolic encephalopathy Code(s): G92 - TOXIC ENCEPHALOPATHY (11) Anemia Code(s): D64.9 - ANEMIA, UNSPECIFIED Qualifiers: Anemia type: other cause Other causes of anemia: chronic disease, other Qualified Code(s): D63.8 - Anemia in other chronic diseases classified elsewhere Assessment/Plan Problem List - Problems (1) Acute on chronic diastolic (congestive) heart failure Code(s): I50.33 - ACUTE ON CHRONIC DIASTOLIC (CONGESTIVE) HEART FAILURE (2) Pulmonary hypertension Code(s): I27.20 - PULMONARY HYPERTENSION, UNSPECIFIED Assessment/Plan Altered Mental Status improved Acute on Chronic Diastolic Heart Failure Pulmonary HTN Volume Overload Cellulitis Osteomyelitis Sepsis improving Acute on Chronic Renal Failure Atrial Fibrillation Multiple Myeloma CML HTN DM Hypothyroidism Anemia Morbid Obesity - IV lasix - monitor urine output, creatinine - inhaled bronchodilators - daily weights - monitor H/H - rate control - anticoagulation - O2 to keep SpO2 >90% - BiPAP to assist in work of breathing - continue antibiotics/wound care - chest x-ray today DR BELL
[2019-06-03] MEDS: COLLAGENASE CLOSTRIDIUM HIST. 30 GRAMS TUBE TP SCH (12:43)
--- NOTE | 2019-06-03 12:52 | PN ---
Progress Note, Physician History of Present Illness: events noted c/o of increased sob feels she is not urinating well - Current Medication List Current Medications: Active Medications Acetaminophen (Tylenol -) 650 mg PO Q4H PRN PRN Reason: FEVER Last Admin: 06/03/19 12:01 Dose: 650 mg Albuterol Sulfate (Ventolin 0.083% Nebulizer Soln -) 1 amp NEB Q6H PRN PRN Reason: SHORT OF BREATH/WHEEZING Last Admin: 06/02/19 22:19 Dose: 1 amp Albuterol/Ipratropium (Duoneb -) 1 amp NEB RQID [facility] Last Admin: 06/03/19 11:20 Dose: 1 amp Apixaban (Eliquis -) 5 mg PO BID [facility] Last Admin: 06/03/19 09:38 Dose: 5 mg Artificial Tears (Artificial Tears) 1 drop OU QID [facility] Last Admin: 06/03/19 09:41 Dose: 1 drop Ascorbic Acid (Vitamin C -) 1,000 mg PO DAILY [facility] Last Admin: 06/03/19 09:38 Dose: 1,000 mg Bisacodyl (Dulcolax Suppository -) 10 mg RC DAILY PRN PRN Reason: CONSTIPATION Collagenase (Santyl -) 1 applic TP DAILY [facility]; Protocol Last Admin: 06/03/19 12:43 Dose: 1 applic Diltiazem HCl (Cardizem Cd -) 120 mg PO DAILY [facility] Last Admin: 06/03/19 09:38 Dose: 120 mg Folic Acid (Folic Acid -) 1 mg PO DAILY [facility] Last Admin: 06/03/19 09:38 Dose: 1 mg Gabapentin (Neurontin -) 100 mg PO TID [facility] Last Admin: 06/03/19 06:46 Dose: 100 mg Vancomycin HCl 750 mg/ (Dextrose) 250 mls @ 200 mls/hr IVPB Q24H JOVITA; Protocol Stop: 06/03/19 15:29 Last Admin: 06/02/19 16:17 Dose: 200 mls/hr Meropenem 1 gm/ Dextrose 100 mls @ 0 mls/hr IVPB Q12H [facility] Last Admin: 06/03/19 03:23 Dose: 100 mls/hr Insulin Aspart (Novolog Vial Sliding Scale -) 1 vial SQ ACHS [facility]; Protocol Last Admin: 06/03/19 11:35 Dose: 4 units Lactobacillus Acidophilus (Bacid -) 1 tab PO TID [facility] Last Admin: 06/03/19 06:46 Dose: 1 tab Levothyroxine Sodium (Synthroid -) 25 mcg PO DAILY@0630 [facility] Last Admin: 06/03/19 06:45 Dose: 25 mcg Magnesium Hydroxide (Milk Of Magnesia -) 30 ml PO DAILY PRN PRN Reason: CONSTIPATION Multi-Ingredient Lotion (Eucerin (Large Jar) -) 1 applic TP DAILY PRN PRN Reason: DRY SKIN Last Admin: 06/01/19 12:58 Dose: 1 applic Multivit/Ca Carb/B Cmplx/FA/Prenat (Nephro-Majo -) 1 tablet PO DAILY [facility] Last Admin: 06/03/19 09:37 Dose: 1 tablet Oxycodone HCl (Roxicodone -) 5 mg PO Q4H PRN PRN Reason: PAIN LEVEL 7 - 10 Last Admin: 06/03/19 12:01 Dose: 5 mg Polyethylene Glycol (Miralax (For Daily Use) -) 17 gm PO DAILY [facility] Last Admin: 06/03/19 09:38 Dose: Not Given Pyridoxine HCl (Vitamin B6 -) 100 mg PO DAILY [facility] Last Admin: 06/03/19 09:37 Dose: 100 mg Senna (Senna -) 1 tab PO DAILY [facility] Last Admin: 06/03/19 09:46 Dose: Not Given Sodium Chloride ([place] Nasal [place] -) 2 spray NS BID PRN PRN Reason: NASAL CONGESTION Torsemide (Demadex -) 20 mg PO HS [facility] Last Admin: 06/02/19 22:48 Dose: 20 mg Valacyclovir HCl (Valtrex -) 500 mg PO BID [facility] Last Admin: 06/03/19 09:37 Dose: 500 mg - Objective Vital Signs: Vital Signs Temperature 97.9 F 06/03/19 09:00 Pulse Rate 92 H 06/03/19 09:00 Respiratory Rate 17 06/03/19 09:00 Blood Pressure 150/60 06/03/19 09:00 O2 Sat by Pulse Oximetry (%) 100 06/03/19 09:00 Constitutional: Yes: Calm, Mild Distress Cardiovascular: Yes: Regular Rate and Rhythm Respiratory: Yes: Regular, Poor Air Entry (bases), Wheezes (bilateral) Gastrointestinal: Yes: Normal Bowel Sounds, Soft Musculoskeletal: Yes: WNL Extremities: Yes: Other Wound/Incision: Yes: Dressing Dry and Intact Neurological: Yes: Alert, Oriented Psychiatric: Yes: Alert, Oriented Labs: CBC, BMP 06/03/19 05:20 06/03/19 05:20 INR, PTT INR 1.28 (0.83-1.09) H 05/30/19 07:08 Assessment/Plan Problem List - Problems (1) Acute on chronic diastolic (congestive) heart failure Code(s): I50.33 - ACUTE ON CHRONIC DIASTOLIC (CONGESTIVE) HEART FAILURE (2) CML (chronic myelocytic leukemia) Code(s): C92.10 - CHRONIC MYELOID LEUK, BCR/ABL-POSITIVE, NOT ACHIEVE REMIS (3) Neutropenic fever Code(s): D70.9 - NEUTROPENIA, UNSPECIFIED; R50.81 - FEVER PRESENTING WITH CONDITIONS CLASSIFIED ELSEWHERE (4) Osteomyelitis Code(s): M86.9 - OSTEOMYELITIS, UNSPECIFIED Qualifiers: Osteomyelitis type: other acute Osteomyelitis location: multiple sites Qualified Code(s): M86.19 - Other acute osteomyelitis, multiple sites (5) Pulmonary hypertension Code(s): I27.20 - PULMONARY HYPERTENSION, UNSPECIFIED (6) Sepsis Code(s): A41.9 - SEPSIS, UNSPECIFIED ORGANISM Qualifiers: Sepsis type: sepsis due to unspecified organism Sepsis acute organ dysfunction status: unspecified Qualified Code(s): A41.9 - Sepsis, unspecified organism (7) Diabetic foot ulcer Code(s): E11.621 - TYPE 2 DIABETES MELLITUS WITH FOOT ULCER; L97.509 - NON- PRESSURE CHRONIC ULCER OTH PRT UNSP FOOT W UNSP SEVERITY Qualifiers: Diabetic foot ulcer location: heel Diabetes mellitus type: type 2 Laterality: unspecified laterality Non-pressure ulcer stage: unspecified non- pressure ulcer stage Qualified Code(s): E11.621 - Type 2 diabetes mellitus with foot ulcer; L97.409 - Non-pressure chronic ulcer of unspecified heel and midfoot with unspecified severity (8) A-fib Code(s): I48.91 - UNSPECIFIED ATRIAL FIBRILLATION Qualifiers: Atrial fibrillation type: chronic Qualified Code(s): I48.2 - Chronic atrial fibrillation (9) ASA (acute kidney injury) Code(s): N17.9 - ACUTE KIDNEY FAILURE, UNSPECIFIED (10) Altered mental status, unspecified Code(s): R41.82 - ALTERED MENTAL STATUS, UNSPECIFIED (11) COPD (chronic obstructive pulmonary disease) Code(s): J44.9 - CHRONIC OBSTRUCTIVE PULMONARY DISEASE, UNSPECIFIED (12) Cellulitis Code(s): L03.90 - CELLULITIS, UNSPECIFIED Qualifiers: Site of cellulitis: extremity Site of cellulitis of extremity: lower extremity Laterality: unspecified laterality Qualified Code(s): L03.119 - Cellulitis of unspecified part of limb (13) Chronic anemia Code(s): D64.9 - ANEMIA, UNSPECIFIED (14) Diabetic neuropathy Code(s): E11.40 - TYPE 2 DIABETES MELLITUS WITH DIABETIC NEUROPATHY, UNSP (15) HTN (hypertension) Code(s): I10 - ESSENTIAL (PRIMARY) HYPERTENSION (16) T2DM (type 2 diabetes mellitus) Code(s): E11.9 - TYPE 2 DIABETES MELLITUS WITHOUT COMPLICATIONS Qualifiers: Diabetes mellitus complication status: with neurologic complications (17) Osteomyelitis of foot Code(s): M86.9 - OSTEOMYELITIS, UNSPECIFIED Qualifiers: Laterality: right Assessment/Plan s/p Sepsis MRSA bacteremia LE cellulitis Infected foot ulcer/OM - s/p debridement and antibiotic implantation POD#2 Anemia - s/p PRBC transfusion Neutropenia s/p neupogen Acute on chronic HF ASA on CKD - improving CML MM AFIB Pulm HTN DM Morbid obesity hypothyroidism Rash - can not exclude allergic reaction SOB -continue abx monitor rash check vanco level todays levels noted once stable will adjust standing dose monitor renal functions wound care resp support diuresis rest as per the team
[2019-06-03] MEDS ORDERED: FUROSEMIDE 40 MG/4 ML INJECTABLE VIAL IVPUSH ONE (13:54)
--- NOTE | 2019-06-03 13:54 | PN ---
Teaching Attending Note Name of Resident: Lidia Segura ATTENDING PHYSICIAN STATEMENT I saw and evaluated the patient. I reviewed the resident's note and discussed the case with the resident. I agree with the resident's findings and plan as documented. SUBJECTIVE: Complains of shortness of breath. No CP/palpitations. No fever/ chills. No cough/sputum. OBJECTIVE: Afebrile, Hemodynamically Stable. Comfortable on O2 via NC, not tachypneic. Off BiPAP. Last Vital Signs Temp Pulse Resp BP Pulse Ox 97.9 F 92 H 17 150/60 100 06/03/19 09:00 06/03/19 09:00 06/03/19 09:00 06/03/19 09:00 06/03/19 09:00 Declines physical exam today. PE as per resident's note. Laboratory Results - last 24 hr 05/30/19 06/02/19 06/02/19 07:08 17:19 22:18 WBC RBC Hgb Hct MCV MCH MCHC RDW Plt Count MPV Absolute Neuts (auto) Neutrophils % Lymphocytes % Monocytes % Eosinophils % Basophils % Nucleated RBC % Sodium Potassium Chloride Carbon Dioxide Anion Gap BUN Creatinine Est GFR (CKD-EPI)AfAm Est GFR (CKD-EPI)NonAf POC Glucometer 263 211 Random Glucose Calcium Phosphorus Magnesium Random Vancomycin Blood Type O POSITIVE Antibody Screen Positive Antibody Identification [place] Crossmatch See Detail 06/03/19 06/03/19 06/03/19 05:20 05:20 05:20 WBC 5.0 RBC 2.85 L Hgb 8.7 L Hct 25.9 L MCV 91.0 MCH 30.5 MCHC 33.6 RDW 19.0 H Plt Count 114 L MPV 8.6 Absolute Neuts (auto) 4.4 Neutrophils % 88.9 H Lymphocytes % 4.2 L Monocytes % 3.2 L Eosinophils % 3.3 Basophils % 0.4 Nucleated RBC % 0 Sodium 138 Potassium 4.5 Chloride 106 Carbon Dioxide 26 Anion Gap 7 L BUN 38.4 H Creatinine 1.2 Est GFR (CKD-EPI)AfAm 53.03 Est GFR (CKD-EPI)NonAf 45.75 POC Glucometer Random Glucose 140 H Calcium 8.2 L Phosphorus 4.4 Magnesium 2.0 Random Vancomycin 18.1 Blood Type Antibody Screen Antibody Identification Crossmatch 06/03/19 06/03/19 06:14 11:32 WBC RBC Hgb Hct MCV MCH MCHC RDW Plt Count MPV Absolute Neuts (auto) Neutrophils % Lymphocytes % Monocytes % Eosinophils % Basophils % Nucleated RBC % Sodium Potassium Chloride Carbon Dioxide Anion Gap BUN Creatinine Est GFR (CKD-EPI)AfAm Est GFR (CKD-EPI)NonAf POC Glucometer 134 222 Random Glucose Calcium Phosphorus Magnesium Random Vancomycin Blood Type Antibody Screen Antibody Identification Crossmatch Current Medications Generic Name Dose Route Start Last Admin Trade Name Freq PRN Reason Stop Dose Admin Acetaminophen 650 mg 05/31/19 18:17 06/03/19 12:01 Tylenol - PO 650 mg Q4H PRN Administration FEVER Albuterol Sulfate 1 amp 06/02/19 12:59 06/02/19 22:19 Ventolin 0.083% Nebulizer Soln - NEB 1 amp Q6H PRN Administration SHORT OF BREATH/WHEEZING Albuterol/Ipratropium 1 amp 06/02/19 16:00 06/03/19 11:20 Duoneb - NEB 1 amp RQID JOVITA Administration Apixaban 5 mg 05/31/19 22:00 06/03/19 09:38 Eliquis - PO 5 mg BID JOVITA Administration Artificial Tears 1 drop 05/31/19 22:00 06/03/19 09:41 Artificial Tears OU 1 drop QID JOVITA Administration Ascorbic Acid 1,000 mg 06/01/19 10:00 06/03/19 09:38 Vitamin C - PO 1,000 mg DAILY JOVITA Administration Bisacodyl 10 mg 05/31/19 18:17 Dulcolax Suppository - RC DAILY PRN CONSTIPATION Collagenase 1 applic 06/01/19 10:00 06/03/19 12:43 Santyl - TP 1 applic DAILY JOVITA Administration Protocol Diltiazem HCl 120 mg 06/01/19 10:00 06/03/19 09:38 Cardizem Cd - PO 120 mg DAILY JOVITA Administration Folic Acid 1 mg 06/01/19 10:00 06/03/19 09:38 Folic Acid - PO 1 mg DAILY JOVITA Administration Gabapentin 100 mg 05/31/19 22:00 06/03/19 06:46 Neurontin - PO 100 mg TID JOVITA Administration Vancomycin HCl 750 mg/ 250 mls @ 200 mls/hr 06/02/19 15:30 06/02/19 16:17 Dextrose IVPB 06/03/19 15:29 200 mls/hr Q24H JOVITA Administration Protocol Meropenem 1 gm/ Dextrose 100 mls @ 0 mls/hr 06/02/19 15:30 06/03/19 03:23 IVPB 100 mls/hr Q12H JOVITA Administration As Directed Insulin Aspart 1 vial 05/31/19 22:00 06/03/19 11:35 Novolog Vial Sliding Scale - SQ 4 units ACHS JOVITA Administration Protocol Lactobacillus Acidophilus 1 tab 05/31/19 22:00 06/03/19 06:46 Bacid - PO 1 tab TID JOVITA Administration Levothyroxine Sodium 25 mcg 06/01/19 06:30 06/03/19 06:45 Synthroid - PO 25 mcg DAILY@0630 JOVITA Administration Magnesium Hydroxide 30 ml 05/31/19 18:17 Milk Of Magnesia - PO DAILY PRN CONSTIPATION Multi-Ingredient Lotion 1 applic 05/31/19 18:17 06/01/19 12:58 Eucerin (Large Jar) - TP 1 applic DAILY PRN Administration DRY SKIN Multivit/Ca Carb/B Cmplx/FA/Prenat 1 tablet 06/01/19 10:00 06/03/19 09:37 Nephro-Majo - PO 1 tablet DAILY JOVITA Administration Oxycodone HCl 5 mg 05/31/19 18:17 06/03/19 12:01 Roxicodone - PO 5 mg Q4H PRN Administration PAIN LEVEL 7 - 10 Polyethylene Glycol 17 gm 06/01/19 10:00 06/03/19 09:38 Miralax (For Daily Use) - PO Not Given DAILY JOVITA Pyridoxine HCl 100 mg 06/01/19 10:00 06/03/19 09:37 Vitamin B6 - PO 100 mg DAILY JOVITA Administration Senna 1 tab 06/01/19 10:00 06/03/19 09:46 Senna - PO Not Given DAILY JOVITA Sodium Chloride 2 spray 05/31/19 18:17 [place] Nasal [place] - NS BID PRN NASAL CONGESTION Torsemide 20 mg 05/31/19 22:00 06/02/19 22:48 Demadex - PO 20 mg HS JOVITA Administration Valacyclovir HCl 500 mg 05/31/19 22:00 06/03/19 09:37 Valtrex - PO 500 mg BID JOVITA Administration Home Medications Medication Instructions Recorded Albuterol Sulfate 2.5 mg IH Q8H PRN 07/18/18 Ascorbic Acid [Vitamin C -] 1,000 mg PO DAILY 07/18/18 Gabapentin [Neurontin -] 100 mg PO TID 07/18/18 Ipratropium [place] 0.2 mg IH Q8H PRN 07/18/18 Vitamin B Complex 1 tab PO DAILY 07/18/18 Diltiazem Cd [Cardizem Cd -] 120 mg PO DAILY cap.cd.24h 07/23/18 Acetaminophen [Pain Relief] 650 mg PO Q6H PRN 07/29/18 Bisacodyl Suppository [Dulcolax 10 mg RC DAILY PRN 07/29/18 Suppository -] Insulin Lispro [Humalog Kwikpen 0 unit SQ ASDIR 07/29/18 U-100] Mag Hydrox/Al Hydrox/Simeth 30 ml PO DAILY PRN 07/29/18 [Mylanta Oral Suspension -] Folic Acid 1 mg PO DAILY 11/14/18 Pyridoxine HCl (B-6) [Vitamin B6 -] 100 mg PO DAILY 11/14/18 Sennosides [Senna Lax] 17.2 mg PO DAILY 11/14/18 Eliquis 5 mg PO BID 02/26/19 Glimepiride 1 mg PO AC 02/26/19 Torsemide 40 mg PO AM 02/26/19 Clindamycin [Cleocin -] 600 mg PO Q8H #42 capsule 05/19/19 Aa/Hydrolyzed Collagen, Whey [Lps 30 ml PO BID 05/23/19 15-30 Liquid] Collagenase Clostridium Hist. 1 applic TP DAILY 05/23/19 [Santyl] Cyclobenzaprine HCl [Flexeril -] 5 mg PO BID 05/23/19 Docusate Sodium [Colace] 300 mg PO DAILY 05/23/19 Fentanyl 1 each TD Q72H 05/23/19 Hydrocortisone [Preparation H] 26 gm RC DAILY 05/23/19 Imatinib Mesylate [Gleevec] 400 mg PO DAILY 05/23/19 Lactobacillus Acidophilus 1 each PO TID 05/23/19 [Acidophilus] Levothyroxine [Synthroid -] 25 mcg PO DAILY@0630 05/23/19 Lidocaine [Aspercreme] 1 each TP DAILY 05/23/19 Magnesium Hydroxide [Milk of 30 ml PO DAILY PRN 05/23/19 Magnesia] Menthol [[place] Ultra Strength] 1 each TP DAILY 05/23/19 Menthol/Camphor [[place]arna Anti-Itch 222 ml TP DAILY PRN 05/23/19 Lotion] Nystatin Powder [Nystop Topical 15 applic TP BID 05/23/19 Powder -] Oxycodone HCl 10 mg PO Q4HWA PRN 05/23/19 Pantoprazole Sodium [Protonix] 40 mg PO DAILY 05/23/19 Polyethylene Glycol 3350 [Miralax 17 gm PO DAILY 05/23/19 (For Daily Use) -] Polyvinyl Alcohol [Artificial 1 drop OU QID 05/23/19 Tears] Sodium Phosphate,[place]-Dibasic 133 ml RC PRN PRN 05/23/19 [Fleet Enema] Torsemide [Demadex -] 20 mg PO HS 05/23/19 Valacyclovir HCl [Valtrex] 500 mg PO BID 05/23/19 ASSESSMENT AND PLAN: 68 year old female with history of Multiple Myeloma, CML, DM 2, HTN, Atrial Fibrillation, Hypothyroidism, sent to the ED from [facility] for altered mental status. 1. Mild fluid overload due to IV fluid resuscitation - responded well to IV Lasix diuresis. ABG not acidotic or hypercapneic. CXR - no significant changes - no congestion or infiltrates Resumed on daily Torsemide. Will give a dose of IV Lasix again today. I/Os, Daily weights. Monitor respiratory status 2. Acute Metabolic Encephalopathy secondary to sepsis - Resolved 3. Neutropenic Sepsis secondary to bilateral LE Cellulitis, Osteomyelitis of right heel with overlying ulcer. Neutropenia resolved. POD 3 s/p right heel debridement with implantation of Abx beads R calcaneus Wound Cx positive for MRSA/Pseudomonas - was on IV Zosyn/Vanco - switched to Meropenem/Vanco due to possible drug rash (mild). Surgical Cx pending Blood Cx pos for MRSA, repeat Blood Cx negative. Cdiff negative, oral Vanco discontinued. Further management as per ID and Podiatry - IV Abx as per ID. Will need PICC prior to transfer to [facility]. Resumed on Eliquis. Wound care - Santyl + DSD applied to bilateral feet. Will need local wound care with santyl daily to both feet. 4. Neutropenia/Thrombocytopenia secondary to underlying MM/CML - neutropenia resolved s/p Neupogen. Hematology following. 5. Anemia sec to MM/CML, Chronic Disease - H/H 8.7/25.9 s/p 3 unit PRBCs total. Further management as per Hematology. 6. Atrial Fibrillation - Continue Cardizem CD and Eliquis. 7. ASA on CKD 3 - improving. Will give one more dose IV Lasix 40mg. Torsemide resumed. 8. HTN - on Cardizem. 9. DM 2 - Novolog sliding scale. Oral diabetic medications held. 10. CML/MM - treated with daratumumab/velcade/imatinib - further management as per Hematology. 11. Hypothyroidism - Continue Synthroid. DVT Px - on Eliquis. Dispo - Awaiting PICC and transfer to SNF.
--- NOTE | 2019-06-03 16:37 | DS ---
Physical Exam: SUBJECTIVE: Patient seen and examined. She reports shortness of breath intermittently. She reports improvement with oxycodone. She also reports productive cough that is worse following eating dairy. OBJECTIVE: Vital Signs Period Temp Pulse Resp BP Sys/M[place]ado Pulse Ox Last 24 Hr 97.6 F-98.1 F 77-92 17-20 134-152/53-63 97-100 PHYSICAL EXAM GENERAL: The patient is awake, alert, and fully oriented, in no acute distress. HEAD: Normal with no signs of trauma. EYES: PERRL, extraocular movements intact, sclera anicteric, conjunctiva clear. ENT: Ears normal, nares patent, oropharynx clear without exudates, moist mucous membranes. NECK: Trachea midline, full range of motion, supple. LUNGS: Breath sounds equal, clear to auscultation bilaterally, no wheezes, no crackles, no accessory muscle use. HEART: Regular rate and rhythm, S1, S2 without murmur, rub or gallop. ABDOMEN: Soft, nontender, nondistended, normoactive bowel sounds, no guarding, no rebound, no hepatosplenomegaly, no masses. EXTREMITIES: 2+ pulses, warm, well-perfused, no edema. NEUROLOGICAL: Cranial nerves II through XII grossly intact. Normal speech, gait not observed. PSYCH: Normal mood, normal affect. SKIN: Warm, dry, normal turgor, no rashes or lesions noted. LABS Laboratory Results - last 24 hr 06/02/19 06/02/19 06/03/19 17:19 22:18 05:20 WBC RBC Hgb Hct MCV MCH MCHC RDW Plt Count MPV Absolute Neuts (auto) Neutrophils % Lymphocytes % Monocytes % Eosinophils % Basophils % Nucleated RBC % Sodium Potassium Chloride Carbon Dioxide Anion Gap BUN Creatinine Est GFR (CKD-EPI)AfAm Est GFR (CKD-EPI)NonAf POC Glucometer 263 211 Random Glucose Calcium Phosphorus Magnesium Random Vancomycin 18.1 06/03/19 06/03/19 06/03/19 05:20 05:20 06:14 WBC 5.0 RBC 2.85 L Hgb 8.7 L Hct 25.9 L MCV 91.0 MCH 30.5 MCHC 33.6 RDW 19.0 H Plt Count 114 L MPV 8.6 Absolute Neuts (auto) 4.4 Neutrophils % 88.9 H Lymphocytes % 4.2 L Monocytes % 3.2 L Eosinophils % 3.3 Basophils % 0.4 Nucleated RBC % 0 Sodium 138 Potassium 4.5 Chloride 106 Carbon Dioxide 26 Anion Gap 7 L BUN 38.4 H Creatinine 1.2 Est GFR (CKD-EPI)AfAm 53.03 Est GFR (CKD-EPI)NonAf 45.75 POC Glucometer 134 Random Glucose 140 H Calcium 8.2 L Phosphorus 4.4 Magnesium 2.0 Random Vancomycin 06/03/19 06/03/19 11:32 16:15 WBC RBC Hgb Hct MCV MCH MCHC RDW Plt Count MPV Absolute Neuts (auto) Neutrophils % Lymphocytes % Monocytes % Eosinophils % Basophils % Nucleated RBC % Sodium Potassium Chloride Carbon Dioxide Anion Gap BUN Creatinine Est GFR (CKD-EPI)AfAm Est GFR (CKD-EPI)NonAf POC Glucometer 222 184 Random Glucose Calcium Phosphorus Magnesium Random Vancomycin HOSPITAL COURSE: Ms. 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 She was brought from [facility] via EMS with complaints of feeling feverish for a few days. She was septic, pancytopenic and temp 101.4 at admission. Neupogen administered for ANC 0 which improved during course. 3 units of PRBCs administered total for Hb 6.7 at admission. Stroke workup negative. She also complained of shortness of breath and intermittently used BiPAP but saturated well. Home dose of oxycodone was decreased because of somnolence. She reported increased difficulty breathing when on lower dose. MRI on 05/24/19 right foot showed significant cellulitis and osteomyelitis of calcaneus with no tendon/ligamentous tears. Left LE cellulitis also significant. Wound culture positive Proteus mirabilis, Enterococcus, Pseudomonas , Enterobacter, MRSA. Blood cx positive for MRSA. She was treated with Zosyn, Vanc, and capsofungin. Antibiotic beads of vanc were put into calcaneus. PICC line placed for out pt vanc and meropenem for 4 additional weeks and transferred to SNF. Pt recommended to follow up with heme onc and podiatry. Date of Admission:05/22/19 Date of Discharge: 06/03/19 Minutes to complete discharge: 35 Discharge Summary Problems reviewed: Yes Reason For Visit: CELLULITIS Current Active Problems Acute on chronic diastolic (congestive) heart failure (Acute) CML (chronic myelocytic leukemia) (Acute) Neutropenic fever (Acute) Osteomyelitis (Acute) Pulmonary hypertension (Acute) Sepsis (Acute) Diabetic foot ulcer (Chronic) Condition: Stable - Instructions Diet, Activity, Other Instructions: Hospital Visit: You were admitted to the hospital because you began feeling feverish, had a bone , skin, and blood infection, and your blood count levels were low. You also had times where you were short of breath. You were given antibiotics by IV and in your heel to treat your infection. You were also given a blood transfusion to help your blood count. You were given breathing treatments and used BiPAP for your shortness of breath. The chest x-ray today did not show any pneumonia or fluid. You had an IV placed (PICC line) which will allow you to receive IV antibiotics to finish treating your infection. You were found to have an elevated liver enzyme count and kidney count that normalized while you were at the hospital. You also were found to have a rash, and your antibiotics were adjusted in case it was an allergy. The rash is improving. It is important that you follow up with your primary care doctor to determine if your labs need to be repeated and if your rash is getting better. Medications: You may resume all your home medications, except STOP imatinib (Gleevec) until you follow up with Dr. Sandhu. You are being given meropenem and vancomycin by IV for your infection. Follow up with the following: Dr. Longo (primary care) within 1-2 weeks to check your liver and kidney function. Dr. Sandhu (hematology/oncology) as soon as possible to follow up when you need to restart imatinib. Dr. Farmer or Dr. Matthews (podiatry) within 1 week for the infection in your heel. Dr. Pena (infectious disease) within 1-2 weeks for the infection in your heel and the rash. Dr. Colby (pulmonology) within 1-2 weeks for your breathing. Other instructions: You were treated for an infection that included the bone in your foot. It is very important you keep up with your doctor appointments in order to monitor your progress. You will get antibiotics by the PICC line to treat the infection. For wound care, Santyl should be applied to both of your feet daily. Return to the emergency room if you have worsening shortness of breath or chest pain, have a fever, or you feet and legs get worse. Referrals: Markell Pena MD [Staff Physician] - Jono Farmer MD [Staff Physician] - Carlito Longo MD [Staff Physician] - Tavon Sandhu MD [Staff Physician] - [facility] - Home Medications Comprehensive Discharge Medication List: Ambulatory Orders Albuterol Sulfate 2.5 mg IH Q8H PRN 07/18/18 Ascorbic Acid [Vitamin C -] 1,000 mg PO DAILY 07/18/18 Gabapentin [Neurontin -] 100 mg PO TID 07/18/18 Ipratropium [place] 0.2 mg IH Q8H PRN 07/18/18 Vitamin B Complex 1 tab PO DAILY 07/18/18 Diltiazem Cd [Cardizem Cd -] 120 mg PO DAILY cap.cd.24h 07/23/18 Acetaminophen [Pain Relief] 650 mg PO Q6H PRN 07/29/18 Bisacodyl Suppository [Dulcolax Suppository -] 10 mg RC DAILY PRN 07/29/18 Insulin Lispro [Humalog Kwikpen U-100] 0 unit SQ ASDIR 07/29/18 Mag Hydrox/Al Hydrox/Simeth [Mylanta Oral Suspension -] 30 ml PO DAILY PRN 07/29 Folic Acid 1 mg PO DAILY 11/14/18 Pyridoxine HCl (B-6) [Vitamin B6 -] 100 mg PO DAILY 11/14/18 Sennosides [Senna Lax] 17.2 mg PO DAILY 11/14/18 Eliquis 5 mg PO BID 02/26/19 Glimepiride 1 mg PO AC 02/26/19 Torsemide 40 mg PO AM 02/26/19 Aa/Hydrolyzed Collagen, Whey [Lps 15-30 Liquid] 30 ml PO BID 05/23/19 Cyclobenzaprine HCl [Flexeril -] 5 mg PO BID 05/23/19 Docusate Sodium [Colace] 300 mg PO DAILY 05/23/19 Fentanyl 1 each TD Q72H 05/23/19 Hydrocortisone [Preparation H] 26 gm RC DAILY 05/23/19 Lactobacillus Acidophilus [Acidophilus] 1 each PO TID 05/23/19 Levothyroxine [Synthroid -] 25 mcg PO DAILY@0630 05/23/19 Lidocaine [Aspercreme] 1 each TP DAILY 05/23/19 Magnesium Hydroxide [Milk of Magnesia] 30 ml PO DAILY PRN 05/23/19 Menthol [Bengay Ultra Strength] 1 each TP DAILY 05/23/19 Menthol/Camphor [Sarna Anti-Itch Lotion] 222 ml TP DAILY PRN 05/23/19 Nystatin Powder [Nystop Powder -] 15 applic TP BID 05/23/19 Oxycodone HCl 10 mg PO Q4HWA PRN 05/23/19 Pantoprazole Sodium [Protonix] 40 mg PO DAILY 05/23/19 Polyethylene Glycol 3350 [Miralax 119 gm Btl -] 17 gm PO DAILY 05/23/19 Polyvinyl Alcohol [Artificial Tears] 1 drop OU QID 05/23/19 Sodium Phosphate,[place]-Dibasic [Fleet Enema] 133 ml RC PRN PRN 05/23/19 Torsemide [Demadex -] 20 mg PO HS 05/23/19 Valacyclovir HCl [Valtrex] 500 mg PO BID 05/23/19 Meropenem [Merrem (Restricted To Id) -] 1 gm IVPB Q12H vial 06/03/19 Vancomycin 750 mg IVPB Q24H vial 06/03/19 This patient is new to me today: No Emergency Visit: Yes ED Registration Date: 05/22/19 Care time: The patient presented to the Emergency Department on the above date and was hospitalized for further evaluation of their emergent condition. Critical Care patient: No - Discharge Referral Referred to [facility] Med P.C.: No ATTENDING PHYSICIAN STATEMENT I saw and evaluated the patient. I reviewed the resident's note and discussed the case with the resident. I agree with the resident's findings and plan as documented. SUBJECTIVE: OBJECTIVE: ASSESSMENT AND PLAN:
--- NOTE | 2019-06-03 21:29 | PN ---
Progress Note (short form) - Note Progress Note: Patient seen and examined c/o back pain Awake, alert Cor: RSR, No murmurs, No gallops Lungs: Clear to P&A Abd: Soft, Normal bowel sounds, No organomegaly Ext: stasis dermatitis/ulcers Labs/Meds reviewed A/P 68 y/o patient with CML/ multiple myeloma on daratumumab/velcade/ dex and imatinib comes in with myelosuppression/neutropenia/ fever/ ? cellulitis false + alloab screen due to interference from daratumumab . will request crossing and type matching from [facility] on meropenem for cellulitis/MRSA /corynebacterium bacteremia c.diff negative hold imatinib/myeloma therapy on eliquis anemia of chronic disease/myelosuppression awaiting PICC line for abx and SNF transfer monitor CBC/ transfuse as necessary Follow up in [facility] on discharge
[2019-06-03] MEDS: TORSEMIDE 20 MG TABLET (FP) PO SCH (21:46)
[2019-06-04] MEDS ORDERED: MEROPENEM 1 GM VIAL (RESTRICTED TO ID) IVPB ONE ×2 (03:34→16:43)
[2019-06-04] MEDS ORDERED: DEXTROSE 5%-WATER 100 ML IVPB ONE ×2 (03:35→16:43)
[2019-06-04] MEDS: MEROPENEM 1 GM in DEXTROSE 5%-WATER 100 ML IVPB SCH ×2 (03:54→16:46)
[2019-06-04] MEDS: ACETAMINOPHEN 325 MG TABLET (FP) PO PRN (05:55)
[2019-06-04] MEDS: oxyCODONE HCL 5 MG TABLET PO PRN ×2 (05:55→10:06)
[2019-06-04] MEDS: LEVOTHYROXINE NA 25 MCG TABLET (FP) PO SCH (06:43)
[2019-06-04] MEDS: GABAPENTIN 100 MG CAPSULE (FP) PO SCH ×2 (06:43→13:55)
[2019-06-04] MEDS: LACTOBACILLUS ACIDOPHILUS 1 TABLET PO SCH ×2 (06:43→13:55)
[2019-06-04] MEDS: INSULIN SLIDING SCALE (NOVOLOG) 1 VIAL SQ SCH ×3 (06:48→18:42)
[2019-06-04] MEDS: ALBUTEROL SO4 2.5/IPRATROPIUM 0.5 INH SOL 3 ML VIAL.NEB. NEB SCH ×3 (07:21→15:15)
[2019-06-04] MEDS ORDERED: PYRIDOXINE HCL (B-6) 50 MG TABLET (FP) PO SCH (10:00)
[2019-06-04] MEDS: APIXABAN 5 MG TABLET PO SCH (10:05)
[2019-06-04] MEDS: ARTIFICIAL TEARS (POLYVINYL ALCOHOL) OPTH DROPS OU SCH ×3 (10:05→18:42)
[2019-06-04] MEDS: SENNOSIDES 8.6MG TABLET (FP) PO SCH ×2 (10:05→10:11)
[2019-06-04] MEDS: COLLAGENASE CLOSTRIDIUM HIST. 30 GRAMS TUBE TP SCH (10:05)
[2019-06-04] MEDS: VITAMIN B COMP W-C 1 EA TABLET PO SCH (10:05)
[2019-06-04] MEDS: ASCORBIC ACID 500 MG TABLET (FP) PO SCH ×2 (10:05→10:11)
[2019-06-04] MEDS: valACYclovir HCL 500 MG TABLET (FP) PO SCH (10:05)
[2019-06-04] MEDS: FOLIC ACID 1 MG TABLET (FP) PO SCH (10:06)
[2019-06-04] MEDS: POLYETHYLENE GLYCOL 3350 119 GM BTL PO SCH (10:10)
--- NOTE | 2019-06-04 10:55 | PN ---
Progress Note (short form) - Note Progress Note: Podiatry F/U: Seen/evaluated at bedside NAD. Pain controlled, denies F/V/N/C/SOB/CP. Afebrile. Still having a bit of trouble with her breathing, on oxygen now. Patient is scheduled for PICC line and discharge to SNF today. S/p R heel debridement with implantation of antibiotic beads. MELANI: Pedal pulses nonpalpable secondary to lymphedema, TG wnl. On the right foot is a plantar heel diabetic ulcer mostly fibrotic, small area of necrotic tissue, central aspect probing deep, moderate serous drainage, no purulent drainage, no fluctuance, no streaking cellulitis, no soft tissue crepitus, no signs of infection. On the left foot, there is a posterior heel diabetic ulcer mixed fibrogranular base, regular borders, no probing to bone, no purulence, no fluctuance, no streaking cellulitis, no signs of infection. No ischemic changes to either foot. Imp: 68 year old diabetic female with bilateral heel diabetic ulcers, right heel chronic osteomyelitis, s/p R heel debridement and antibiotic bead placement 1. IV abx per infectious disease 2. Santyl + DSD bilateral heels 3. Heel offloading measures 4. For PICC line and SNF placement today 5. Patient will [facility] Michaela Farmer DPM Problem List - Problems (1) Osteomyelitis Code(s): M86.9 - OSTEOMYELITIS, UNSPECIFIED Qualifiers: Osteomyelitis type: other acute Osteomyelitis location: multiple sites Qualified Code(s): M86.19 - Other acute osteomyelitis, multiple sites
--- NOTE | 2019-06-04 11:22 | PN ---
Progress Note, Physician History of Present Illness: pulmonary alert,c/o sob. pt scheduled for picc line - Current Medication List Current Medications: Active Medications Acetaminophen (Tylenol -) 650 mg PO Q4H PRN PRN Reason: FEVER Last Admin: 06/04/19 05:55 Dose: 650 mg Albuterol Sulfate (Ventolin 0.083% Nebulizer Soln -) 1 amp NEB Q6H PRN PRN Reason: SHORT OF BREATH/WHEEZING Last Admin: 06/02/19 22:19 Dose: 1 amp Albuterol/Ipratropium (Duoneb -) 1 amp NEB RQID [facility] Last Admin: 06/04/19 07:21 Dose: 1 amp Apixaban (Eliquis -) 5 mg PO BID [facility] Last Admin: 06/04/19 10:05 Dose: 5 mg Artificial Tears (Artificial Tears) 1 drop OU QID [facility] Last Admin: 06/04/19 10:05 Dose: 1 drop Ascorbic Acid (Vitamin C -) 1,000 mg PO DAILY [facility] Last Admin: 06/04/19 10:11 Dose: Not Given Bisacodyl (Dulcolax Suppository -) 10 mg RC DAILY PRN PRN Reason: CONSTIPATION Collagenase (Santyl -) 1 applic TP DAILY [facility]; Protocol Last Admin: 06/04/19 10:05 Dose: 1 applic Diltiazem HCl (Cardizem Cd -) 120 mg PO DAILY [facility] Last Admin: 06/04/19 10:06 Dose: 120 mg Folic Acid (Folic Acid -) 1 mg PO DAILY [facility] Last Admin: 06/04/19 10:06 Dose: 1 mg Gabapentin (Neurontin -) 100 mg PO TID [facility] Last Admin: 06/04/19 06:43 Dose: 100 mg Meropenem 1 gm/ Dextrose 100 mls @ 0 mls/hr IVPB Q12H [facility] Last Admin: 06/04/19 03:54 Dose: 100 mls/hr Insulin Aspart (Novolog Vial Sliding Scale -) 1 vial SQ ACHS [facility]; Protocol Last Admin: 06/04/19 06:48 Dose: 2 units Lactobacillus Acidophilus (Bacid -) 1 tab PO TID [facility] Last Admin: 06/04/19 06:43 Dose: 1 tab Levothyroxine Sodium (Synthroid -) 25 mcg PO DAILY@0630 [facility] Last Admin: 06/04/19 06:43 Dose: 25 mcg Magnesium Hydroxide (Milk Of Magnesia -) 30 ml PO DAILY PRN PRN Reason: CONSTIPATION Multi-Ingredient Lotion (Eucerin (Large Jar) -) 1 applic TP DAILY PRN PRN Reason: DRY SKIN Last Admin: 06/01/19 12:58 Dose: 1 applic Multivit/Ca Carb/B Cmplx/FA/Prenat (Nephro-Majo -) 1 tablet PO DAILY [facility] Last Admin: 06/04/19 10:05 Dose: 1 tablet Oxycodone HCl (Roxicodone -) 5 mg PO Q4H PRN PRN Reason: PAIN LEVEL 7 - 10 Last Admin: 06/04/19 10:06 Dose: 5 mg Polyethylene Glycol (Miralax (For Daily Use) -) 17 gm PO DAILY [facility] Last Admin: 06/04/19 10:10 Dose: Not Given Pyridoxine HCl (Vitamin B6 -) 100 mg PO DAILY [facility] Last Admin: 06/04/19 10:05 Dose: 100 mg Senna (Senna -) 1 tab PO DAILY [facility] Last Admin: 06/04/19 10:11 Dose: Not Given Sodium Chloride (Agar [place] Nasal [place] -) 2 spray NS BID PRN PRN Reason: NASAL CONGESTION Last Admin: 06/04/19 10:04 Dose: 2 spray Torsemide (Demadex -) 20 mg PO HS [facility] Last Admin: 06/03/19 21:46 Dose: 20 mg Valacyclovir HCl (Valtrex -) 500 mg PO BID [facility] Last Admin: 06/04/19 10:05 Dose: 500 mg - Objective Vital Signs: Vital Signs Temperature 98.3 F 06/04/19 06:00 Pulse Rate 86 06/04/19 06:00 Respiratory Rate 18 06/04/19 06:00 Blood Pressure 136/64 06/04/19 06:00 O2 Sat by Pulse Oximetry (%) 100 06/03/19 21:00 Constitutional: Yes: Calm, Obese Eyes: Yes: WNL HENT: Yes: WNL Neck: Yes: WNL Cardiovascular: Yes: Pulse Irregular, S1, S2 Respiratory: Yes: Diminished Gastrointestinal: Yes: Normal Bowel Sounds, Soft, Abdomen, Obese Extremities: Yes: WNL Edema: Yes Labs: CBC, BMP Problem List - Problems (1) Acute on chronic diastolic (congestive) heart failure Code(s): I50.33 - ACUTE ON CHRONIC DIASTOLIC (CONGESTIVE) HEART FAILURE (2) CML (chronic myelocytic leukemia) Code(s): C92.10 - CHRONIC MYELOID LEUK, BCR/ABL-POSITIVE, NOT ACHIEVE REMIS (3) Sepsis Code(s): A41.9 - SEPSIS, UNSPECIFIED ORGANISM Qualifiers: Sepsis type: sepsis due to unspecified organism Sepsis acute organ dysfunction status: unspecified Qualified Code(s): A41.9 - Sepsis, unspecified organism (4) Diabetic foot ulcer Code(s): E11.621 - TYPE 2 DIABETES MELLITUS WITH FOOT ULCER; L97.509 - NON- PRESSURE CHRONIC ULCER OTH PRT UNSP FOOT W UNSP SEVERITY Qualifiers: Diabetic foot ulcer location: heel Diabetes mellitus type: type 2 Laterality: unspecified laterality Non-pressure ulcer stage: unspecified non- pressure ulcer stage Qualified Code(s): E11.621 - Type 2 diabetes mellitus with foot ulcer; L97.409 - Non-pressure chronic ulcer of unspecified heel and midfoot with unspecified severity (5) A-fib Code(s): I48.91 - UNSPECIFIED ATRIAL FIBRILLATION Qualifiers: Atrial fibrillation type: chronic Qualified Code(s): I48.2 - Chronic atrial fibrillation (6) Altered mental status, unspecified Code(s): R41.82 - ALTERED MENTAL STATUS, UNSPECIFIED (7) HTN (hypertension) Code(s): I10 - ESSENTIAL (PRIMARY) HYPERTENSION (8) Lymphedema Code(s): I89.0 - LYMPHEDEMA, NOT ELSEWHERE CLASSIFIED (9) T2DM (type 2 diabetes mellitus) Code(s): E11.9 - TYPE 2 DIABETES MELLITUS WITHOUT COMPLICATIONS Qualifiers: Diabetes mellitus complication detail: with unspecified neuropathy (10) Toxic metabolic encephalopathy Code(s): G92 - TOXIC ENCEPHALOPATHY (11) Anemia Code(s): D64.9 - ANEMIA, UNSPECIFIED Qualifiers: Anemia type: other cause Other causes of anemia: chronic disease, other Qualified Code(s): D63.8 - Anemia in other chronic diseases classified elsewhere Assessment/Plan Problem List - Problems (1) Acute on chronic diastolic (congestive) heart failure Code(s): I50.33 - ACUTE ON CHRONIC DIASTOLIC (CONGESTIVE) HEART FAILURE (2) Pulmonary hypertension Code(s): I27.20 - PULMONARY HYPERTENSION, UNSPECIFIED Assessment/Plan Altered Mental Status improved Acute on Chronic Diastolic Heart Failure Pulmonary HTN Volume Overload Cellulitis Osteomyelitis Sepsis improving Acute on Chronic Renal Failure Atrial Fibrillation Multiple Myeloma CML HTN DM Hypothyroidism Anemia Morbid Obesity - diuretics - monitor urine output, creatinine - inhaled bronchodilators - daily weights - monitor H/H - rate control - anticoagulation - O2 to keep SpO2 >90% - BiPAP to assist in work of breathing - continue antibiotics/wound care - picc line today DR BELL
--- NOTE | 2019-06-04 11:55 | PN ---
Progress Note, Physician History of Present Illness: stable still says her breathing is not good says had blood nose - Current Medication List Current Medications: Active Medications Acetaminophen (Tylenol -) 650 mg PO Q4H PRN PRN Reason: FEVER Last Admin: 06/04/19 05:55 Dose: 650 mg Albuterol Sulfate (Ventolin 0.083% Nebulizer Soln -) 1 amp NEB Q6H PRN PRN Reason: SHORT OF BREATH/WHEEZING Last Admin: 06/02/19 22:19 Dose: 1 amp Albuterol/Ipratropium (Duoneb -) 1 amp NEB RQID [facility] Last Admin: 06/04/19 07:21 Dose: 1 amp Apixaban (Eliquis -) 5 mg PO BID [facility] Last Admin: 06/04/19 10:05 Dose: 5 mg Artificial Tears (Artificial Tears) 1 drop OU QID [facility] Last Admin: 06/04/19 10:05 Dose: 1 drop Ascorbic Acid (Vitamin C -) 1,000 mg PO DAILY [facility] Last Admin: 06/04/19 10:11 Dose: Not Given Bisacodyl (Dulcolax Suppository -) 10 mg RC DAILY PRN PRN Reason: CONSTIPATION Collagenase (Santyl -) 1 applic TP DAILY [facility]; Protocol Last Admin: 06/04/19 10:05 Dose: 1 applic Diltiazem HCl (Cardizem Cd -) 120 mg PO DAILY [facility] Last Admin: 06/04/19 10:06 Dose: 120 mg Folic Acid (Folic Acid -) 1 mg PO DAILY [facility] Last Admin: 06/04/19 10:06 Dose: 1 mg Gabapentin (Neurontin -) 100 mg PO TID [facility] Last Admin: 06/04/19 06:43 Dose: 100 mg Meropenem 1 gm/ Dextrose 100 mls @ 0 mls/hr IVPB Q12H [facility] Last Admin: 06/04/19 03:54 Dose: 100 mls/hr Insulin Aspart (Novolog Vial Sliding Scale -) 1 vial SQ ACHS [facility]; Protocol Last Admin: 06/04/19 06:48 Dose: 2 units Lactobacillus Acidophilus (Bacid -) 1 tab PO TID [facility] Last Admin: 06/04/19 06:43 Dose: 1 tab Levothyroxine Sodium (Synthroid -) 25 mcg PO DAILY@0630 [facility] Last Admin: 06/04/19 06:43 Dose: 25 mcg Magnesium Hydroxide (Milk Of Magnesia -) 30 ml PO DAILY PRN PRN Reason: CONSTIPATION Multi-Ingredient Lotion (Eucerin (Large Jar) -) 1 applic TP DAILY PRN PRN Reason: DRY SKIN Last Admin: 06/01/19 12:58 Dose: 1 applic Multivit/Ca Carb/B Cmplx/FA/Prenat (Nephro-Majo -) 1 tablet PO DAILY [facility] Last Admin: 06/04/19 10:05 Dose: 1 tablet Oxycodone HCl (Roxicodone -) 5 mg PO Q4H PRN PRN Reason: PAIN LEVEL 7 - 10 Last Admin: 06/04/19 10:06 Dose: 5 mg Polyethylene Glycol (Miralax (For Daily Use) -) 17 gm PO DAILY [facility] Last Admin: 06/04/19 10:10 Dose: Not Given Pyridoxine HCl (Vitamin B6 -) 100 mg PO DAILY [facility] Last Admin: 06/04/19 10:05 Dose: 100 mg Senna (Senna -) 1 tab PO DAILY [facility] Last Admin: 06/04/19 10:11 Dose: Not Given Sodium Chloride (Valeria Grahn Nasal Grahn -) 2 spray NS BID PRN PRN Reason: NASAL CONGESTION Last Admin: 06/04/19 10:04 Dose: 2 spray Torsemide (Demadex -) 20 mg PO HS [facility] Last Admin: 06/03/19 21:46 Dose: 20 mg Valacyclovir HCl (Valtrex -) 500 mg PO BID [facility] Last Admin: 06/04/19 10:05 Dose: 500 mg - Objective Vital Signs: Vital Signs Temperature 98.3 F 06/04/19 06:00 Pulse Rate 86 06/04/19 06:00 Respiratory Rate 18 06/04/19 06:00 Blood Pressure 136/64 06/04/19 06:00 O2 Sat by Pulse Oximetry (%) 100 06/03/19 21:00 Constitutional: Yes: Calm, Mild Distress, Obese Cardiovascular: Yes: S1, S2 Respiratory: Yes: Regular, CTA Bilaterally Gastrointestinal: Yes: Normal Bowel Sounds, Soft Musculoskeletal: Yes: WNL Extremities: Yes: Other Wound/Incision: Yes: Other Neurological: Yes: Alert, Oriented Psychiatric: Yes: Other Labs: CBC, BMP 06/03/19 05:20 06/03/19 05:20 INR, PTT INR 1.28 (0.83-1.09) H 05/30/19 07:08 Assessment/Plan Problem List - Problems (1) Acute on chronic diastolic (congestive) heart failure Code(s): I50.33 - ACUTE ON CHRONIC DIASTOLIC (CONGESTIVE) HEART FAILURE (2) CML (chronic myelocytic leukemia) Code(s): C92.10 - CHRONIC MYELOID LEUK, BCR/ABL-POSITIVE, NOT ACHIEVE REMIS (3) Neutropenic fever Code(s): D70.9 - NEUTROPENIA, UNSPECIFIED; R50.81 - FEVER PRESENTING WITH CONDITIONS CLASSIFIED ELSEWHERE (4) Osteomyelitis Code(s): M86.9 - OSTEOMYELITIS, UNSPECIFIED Qualifiers: Osteomyelitis type: other acute Osteomyelitis location: multiple sites Qualified Code(s): M86.19 - Other acute osteomyelitis, multiple sites (5) Pulmonary hypertension Code(s): I27.20 - PULMONARY HYPERTENSION, UNSPECIFIED (6) Sepsis Code(s): A41.9 - SEPSIS, UNSPECIFIED ORGANISM Qualifiers: Sepsis type: sepsis due to unspecified organism Sepsis acute organ dysfunction status: unspecified Qualified Code(s): A41.9 - Sepsis, unspecified organism (7) Diabetic foot ulcer Code(s): E11.621 - TYPE 2 DIABETES MELLITUS WITH FOOT ULCER; L97.509 - NON- PRESSURE CHRONIC ULCER OTH PRT UNSP FOOT W UNSP SEVERITY Qualifiers: Diabetic foot ulcer location: heel Diabetes mellitus type: type 2 Laterality: unspecified laterality Non-pressure ulcer stage: unspecified non- pressure ulcer stage Qualified Code(s): E11.621 - Type 2 diabetes mellitus with foot ulcer; L97.409 - Non-pressure chronic ulcer of unspecified heel and midfoot with unspecified severity (8) A-fib Code(s): I48.91 - UNSPECIFIED ATRIAL FIBRILLATION Qualifiers: Atrial fibrillation type: chronic Qualified Code(s): I48.2 - Chronic atrial fibrillation (9) ASA (acute kidney injury) Code(s): N17.9 - ACUTE KIDNEY FAILURE, UNSPECIFIED (10) Altered mental status, unspecified Code(s): R41.82 - ALTERED MENTAL STATUS, UNSPECIFIED (11) COPD (chronic obstructive pulmonary disease) Code(s): J44.9 - CHRONIC OBSTRUCTIVE PULMONARY DISEASE, UNSPECIFIED (12) Cellulitis Code(s): L03.90 - CELLULITIS, UNSPECIFIED Qualifiers: Site of cellulitis: extremity Site of cellulitis of extremity: lower extremity Laterality: unspecified laterality Qualified Code(s): L03.119 - Cellulitis of unspecified part of limb (13) Chronic anemia Code(s): D64.9 - ANEMIA, UNSPECIFIED (14) Diabetic neuropathy Code(s): E11.40 - TYPE 2 DIABETES MELLITUS WITH DIABETIC NEUROPATHY, UNSP (15) HTN (hypertension) Code(s): I10 - ESSENTIAL (PRIMARY) HYPERTENSION (16) T2DM (type 2 diabetes mellitus) Code(s): E11.9 - TYPE 2 DIABETES MELLITUS WITHOUT COMPLICATIONS Qualifiers: Diabetes mellitus complication status: with neurologic complications (17) Osteomyelitis of foot Code(s): M86.9 - OSTEOMYELITIS, UNSPECIFIED Qualifiers: Laterality: right Assessment/Plan s/p Sepsis MRSA bacteremia LE cellulitis Infected foot ulcer/OM - s/p debridement and antibiotic implantation POD#2 Anemia - s/p PRBC transfusion Neutropenia s/p neupogen Acute on chronic HF ASA on CKD - improving CML MM AFIB Pulm HTN DM Morbid obesity hypothyroidism Rash - can not exclude allergic reaction SOB vanco 750 mg daily for 4 weeks more adjust dose according to the trough meropenam 4 weeks monitor cbc bmp est crp weekly wound care rest as per the team
--- NOTE | 2019-06-04 12:35 | PN ---
Teaching Attending Note Name of Resident: Lidia Segura ATTENDING PHYSICIAN STATEMENT I saw and evaluated the patient. I reviewed the resident's note and discussed the case with the resident. I agree with the resident's findings and plan as documented. SUBJECTIVE:much better today. refused PICC Line placement yesterday as she did not want to get on the table. is agreeable today. denies Cp, SOB, fever, chills , N/V/C/D OBJECTIVE: Last Vital Signs Temp Pulse Resp BP Pulse Ox 98.3 F 86 18 136/64 100 06/04/19 06:00 06/04/19 06:00 06/04/19 06:00 06/04/19 06:00 06/03/19 21:00 General NAD CV S1 S2 + Lungs decreased bases. poor inspiratory effort Abdomen soft NT/ND obese Extremities trace pitting edema. chronic changes with lymphedema. foot wrapped dressing c/d/i ASSESSMENT AND PLAN: 68 year old female with history of Multiple Myeloma, CML, DM 2, HTN, Atrial Fibrillation, Hypothyroidism, sent to the ED from [facility] for altered mental status. 1. Mild fluid overload due to IV fluid resuscitation - responded well to IV Lasix diuresis. has slight edema but breathing appears fine. refusing weights. will give lasix IV today and can likely transition to torsemide tomorrow. 2. Acute Metabolic Encephalopathy secondary to sepsis - Resolved 3. Neutropenic Sepsis secondary to bilateral LE Cellulitis, Osteomyelitis of right heel - s/p right heel debridement with implantation of Abx beads R calcaneus on 05/31. neutropenia resolved. Wound Cx positive for MRSA/Pseudomonas - was on IV Zosyn/Vanco - switched to Meropenem/Vanco due to possible drug rash (mild). will need PICC line placement for 6 weeks iv abx. agreeable to line placement today. local wound care as per podiatry with close follow up. 4. Neutropenia/Thrombocytopenia secondary to underlying MM/CML - neutropenia resolved s/p Neupogen. Hematology following. 5. Anemia sec to MM/CML, Chronic Disease - H/H 8.7/25.9 s/p 3 unit PRBCs total this hospitalization. Further management as per Hematology. 6. Atrial Fibrillation - Continue Cardizem CD and Eliquis. 7. ASA on CKD 3 - improving. Will give one more dose IV Lasix 40mg. Torsemide resumed. 8. HTN - on Cardizem. 9. DM 2 - Novolog sliding scale. Oral diabetic medications held. 10. CML/MM - treated with daratumumab/velcade/imatinib - further management as per Hematology. 11. Hypothyroidism - Continue Synthroid. 12. DVT Px - on Eliquis. 13. plan to d/c to [facility] today after PICC line placement
[2019-06-04] MEDS ORDERED: FUROSEMIDE 40 MG/4 ML INJECTABLE VIAL IVPB ONE ×2 (13:04→14:00)
[2019-06-04] MEDS ORDERED: FUROSEMIDE 40 MG/4 ML INJECTABLE VIAL ONE (13:48)
[2019-06-04 15:35] VITALS: BP 136/82; PULSE 93; TEMP 97.5
[2019-06-04] MEDS ORDERED: PT OWN MED DRAWER 7, Y5N ONE (18:15)
[2019-06-04] MEDS ORDERED: INSULIN (NOVOLOG) ASPART 100 UNITS/ML 10ML VIAL ONE (18:17)
== END 2019-06-04 19:19 | DRG 853 ==
LOC: JER 17:05 → JERBED 19:22 → J4W 05-23 02:04
PROVIDERS: ADMIT Internal Medicine; ATTEND Internal Medicine
PROC: 3E0102A Introduction of Anti-Infective Envelope into Subcutaneous Tissue, Open Approach (ICD-10-PCS; 2019-05-31)
PROC: 0QBN0ZZ Excision of Right Metatarsal, Open Approach (ICD-10-PCS; principal; 2019-05-31 17:00)
PROC: 02HV33Z Insertion of Infusion Device into Superior Vena Cava, Percutaneous Approach (ICD-10-PCS; 2019-06-04)
PROC: B548ZZA Ultrasonography of Superior Vena Cava, Guidance (ICD-10-PCS; 2019-06-04)
DX: A41.9 Sepsis, unspecified organism (principal); G93.41 Metabolic encephalopathy; I50.33 Acute on chronic diastolic (congestive) heart failure; C92.10 Chronic myeloid leukemia, BCR/ABL-positive, not having achieved remission; C90.00 Multiple myeloma not having achieved remission; N17.9 Acute kidney failure, unspecified; E87.1 Hypo-osmolality and hyponatremia; L03.116 Cellulitis of left lower limb; L03.115 Cellulitis of right lower limb; M86.671 Other chronic osteomyelitis, right ankle and foot; D61.818 Other pancytopenia; I48.20 Chronic atrial fibrillation, unspecified; L97.419 Non-pressure chronic ulcer of right heel and midfoot with unspecified severity; I13.0 Hypertensive heart and chronic kidney disease with heart failure and stage 1 through stage 4 chronic kidney disease, or unspecified chronic kidney disease; Z68.41 Body mass index [BMI] 40.0-44.9, adult; E03.9 Hypothyroidism, unspecified; I48.91 Unspecified atrial fibrillation; Z79.01 Long term (current) use of anticoagulants; Z79.4 Long term (current) use of insulin; E11.621 Type 2 diabetes mellitus with foot ulcer; E88.09 Other disorders of plasma-protein metabolism, not elsewhere classified; E11.65 Type 2 diabetes mellitus with hyperglycemia; E11.69 Type 2 diabetes mellitus with other specified complication; R50.81 Fever presenting with conditions classified elsewhere; E11.22 Type 2 diabetes mellitus with diabetic chronic kidney disease; R19.7 Diarrhea, unspecified; K59.09 Other constipation; N18.3 Chronic kidney disease, stage 3 (moderate); I27.20 Pulmonary hypertension, unspecified; E66.01 Morbid (severe) obesity due to excess calories; J44.9 Chronic obstructive pulmonary disease, unspecified; B96.4 Proteus (mirabilis) (morganii) as the cause of diseases classified elsewhere; D63.0 Anemia in neoplastic disease; E11.40 Type 2 diabetes mellitus with diabetic neuropathy, unspecified; R21 Rash and other nonspecific skin eruption
CPT/HCPCS: 36415; 36430; 36511; 36569; 36600; 70450-TC; 70551-TC; 71045-TC-FY; 71046-TC-FY; 73590-TC-LT-FY; 73590-TC-RT-FY; 73610-TC-LT-FY; 73610-TC-RT-FY; 73630-TC-LT; 73630-TC-RT-FY; 73718-TC-RT; 76775-TC; 77001-TC-FY; 80048; 80053; 81003; 82550; 82803; 82962; 83036; 83605; 83735; 83880; 84100; 84443; 84484; 85025; 85027; 85610; 85651; 85730; 86140; 86480; 86850; 86870; 86880; 86900; 86901; 86902; 86922; 87040; 87070; 87077; 87086; 87102; 87186; 87205; 87210; 87324; 87449; 93005; 93010; 93306-TC; 93880-TC; 94640; 94660; 94760; 97162-GP; 99282-25; 99283-25; C1751; G0480; J0131; J0637; J1447; J7030; P9038; P9058

== ENCOUNTER 2019-08-15 06:31 | Day surgery (SDC) | payer OTHER ==
[2019-08-14 18:18] VITALS: BMI 32.4
[2019-08-15] MEDS ORDERED: HEPARIN NA (PORCINE) 5,000 UNITS/ML 1ML VIAL ONE (09:07)
[2019-08-15] MEDS ORDERED: LIDOCAINE HCL 1%, 10 MG/ML (20ML VIAL) ONE (09:07)
[2019-08-15] MEDS ORDERED: MIDAZOLAM HCL 2 MG/2 ML SINGLE DOSE VIAL ONE ×2 (09:18)
[2019-08-15] MEDS ORDERED: ceFAZolin SODIUM 1 GM VIAL IVPB ONE (09:20)
[2019-08-15] MEDS ORDERED: HEPARIN NA (PORCINE) 5,000 UNITS/ML 1ML VIAL SQ ONE (09:37)
[2019-08-15] MEDS ORDERED: IOHEXOL 300 MG/ML INFUS..BTL IV ONE ×2 (09:38)
[2019-08-15] MEDS ORDERED: PROPOFOL 20 ML ONE (10:15)
[2019-08-15] MEDS ORDERED: LIDOCAINE HCL 1%, 10 MG/ML (20ML VIAL) NR ONE (10:30)
[2019-08-15] MEDS ORDERED: ONDANSETRON 4 MG/2 ML VIAL IVPUSH PRN (10:47)
[2019-08-15] MEDS ORDERED: PROTAMINE SULFATE 50 MG/5 ML VIAL ONE (10:53)
--- NOTE | 2019-08-15 10:53 | HP ---
Admitting History and Physical - Admission Chief Complaint: right heel ulcer, nonhealing. Pt with tibial disease on US. 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 Cardiovascular: Yes: HTN, Hyperlipdemia, Murmur, Pulmonary Hypertension Pulmonary: Yes: COPD Gastrointestinal: Yes: Constipation Hepatobiliary: Yes: Cholelithiasis, Cholecystitis, Choledocholithiasis (03/17 biliary pancreatitis requiring ERCP,sphincteorotomy, stenitng and stone extraction), Other Renal/: Yes: Renal Calculi Heme/Onc: Yes: Anemia (transfusion requirinig due to chronic GI bleeding (small bowel vascular ectasia) and CML ), Cancer (CML) Musculoskeletal: Yes: Chronic low back pain (sciatica due to lumbar disc disease ) Endocrine: Yes: Diabetes Mellitus, Hypothyroidism Dermatology: Yes: Other (bilateral lymphedema) - Past Surgical History Past Surgical History: Yes: Cholecystectomy, , Hernia Repair - Smoking History Smoking history: Former smoker Have you smoked in the past 12 months: No Aproximately how many cigarettes per day: 0 If you are a former smoker, when did you quit?: 10/25/2013 - Alcohol/Substance Use Hx Alcohol Use: No History of Substance Use: reports: None - Social History ADL: Support Services 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 History of Recent Travel: No Home Medications - Allergies Allergies/Adverse Reactions: Allergies Allergy/AdvReac Type Severity Reaction Status Date / Time metronidazole [From Flagyl] Allergy Severe Rash Verified 07/30/19 11:15 metoprolol Allergy Intermediate Rash Verified 07/30/19 11:15 - Home Medications Home Medications: Ambulatory Orders Ascorbic Acid [Vitamin C -] 1,000 mg PO DAILY 07/18/18 Gabapentin [Neurontin -] 100 mg PO TID 07/18/18 Vitamin B Complex 1 tab PO DAILY 07/18/18 Diltiazem Cd [Cardizem Cd -] 120 mg PO DAILY cap.cd.24h 07/23/18 Acetaminophen [Pain Relief] 650 mg PO Q6H PRN 07/29/18 Bisacodyl Suppository [Dulcolax Suppository -] 10 mg RC DAILY PRN 07/29/18 Insulin Lispro [Humalog Kwikpen U-100] 0 unit SQ ASDIR 07/29/18 Mag Hydrox/Al Hydrox/Simeth [Mylanta Oral Suspension -] 30 ml PO DAILY PRN 07/29 Folic Acid 1 mg PO DAILY 11/14/18 Sennosides [Senna Lax] 17.2 mg PO DAILY 11/14/18 Eliquis 5 mg PO BID 02/26/19 Glimepiride 1 mg PO AC 02/26/19 Torsemide 60 mg PO AM 02/26/19 Docusate Sodium [Colace] 300 mg PO DAILY 05/23/19 Fentanyl 1 each TD Q72H 05/23/19 Hydrocortisone [Preparation H] 26 gm RC DAILY 05/23/19 Levothyroxine [Synthroid -] 25 mcg PO DAILY@0630 05/23/19 Magnesium Hydroxide [Milk of Magnesia] 30 ml PO DAILY PRN 05/23/19 Menthol [Bengay Ultra Strength] 1 each TP DAILY 05/23/19 Menthol/Camphor [Sarna Original 0.5%-0.5% Lotn] 222 ml TP DAILY PRN 05/23/19 Nystatin Powder [Nystop Powder -] 15 applic TP BID 05/23/19 Oxycodone HCl 10 mg PO Q4HWA PRN 05/23/19 Polyethylene Glycol 3350 [Miralax 119 gm Btl -] 17 gm PO DAILY 05/23/19 Sodium Phosphate,Edwards-Dibasic [Fleet Enema] 133 ml RC PRN PRN 05/23/19 Valacyclovir HCl [Valtrex] 500 mg PO BID 05/23/19 Aa/Hydrolyzed Collagen, Whey [Lps 15-30 Liquid] 960 ml PO BID 08/15/19 Albuterol 2.5/Ipratropium 0.5 [Duoneb -] 1 neb NEB TID 08/15/19 Collagenase Clostridium Hist. [Santyl] 1 applic TP DAILY 08/15/19 Cyclobenzaprine HCl [Flexeril -] 10 mg PO BID 08/15/19 Diphenhydramine [Benadryl -] 25 mg PO DAILY 08/15/19 Emollient Combination No.40 [Cetaphil] 226 gm TP QID 08/15/19 Imatinib Mesylate [Gleevec] 400 mg PO DAILY 08/15/19 Ipratropium/Albuterol Sulfate [Combivent Respimat Inhal Holiday] 4 gm IH PRN 08/15 Lactobacillus Acidophilus [Acidophilus] 1 each PO TID 08/15/19 Nystatin Powder [Nystop Topical Powder -] 15 gm TP TID 08/15/19 Triamcinolone Acetonide 1 applic TP DAILY 08/15/19 Review of Systems - Review of Systems Constitutional: reports: No Symptoms Eyes: reports: No Symptoms HENT: reports: No Symptoms Neck: reports: No Symptoms Cardiovascular: reports: No Symptoms Respiratory: reports: No Symptoms Gastrointestinal: reports: No Symptoms Genitourinary: reports: No Symptoms Musculoskeletal: reports: No Symptoms Integumentary: reports: No Symptoms Neurological: reports: No Symptoms Endocrine: reports: No Symptoms Hematology/Lymphatic: reports: No Symptoms Psychiatric: reports: No Symptoms Physical Examination Vital Signs: Vital Signs Temperature 97.7 F 08/15/19 08:25 Pulse Rate 74 08/15/19 08:25 Respiratory Rate 20 08/15/19 08:25 Blood Pressure 123/60 08/15/19 08:25 O2 Sat by Pulse Oximetry (%) 99 08/15/19 08:25 Constitutional: Yes: Well Nourished, No Distress, Calm Eyes: Yes: WNL, Conjunctiva Clear, EOM Intact HENT: Yes: WNL, Atraumatic, Normocephalic Neck: Yes: WNL, Supple, Trachea Midline Cardiovascular: Yes: WNL, Regular Rate and Rhythm Respiratory: Yes: WNL, Regular, CTA Bilaterally Gastrointestinal: Yes: WNL, Normal Bowel Sounds Musculoskeletal: Yes: WNL Extremities: Yes: WNL Edema: No Peripheral Pulses WNL: No Integumentary: Yes: WNL Neurological: Yes: WNL, Alert, Oriented ...Motor Strength: WNL Psychiatric: Yes: WNL Problem List - Problems (1) Ulcer of right heel Assessment/Plan: for angiogram today Code(s): L97.419 - NON-PRS CHR ULCER OF RIGHT HEEL AND MIDFOOT W UNSP SEVERT
--- NOTE | 2019-08-15 10:57 | OP ---
Operative Note - Note: Operative Date: 08/15/19 Pre-Operative Diagnosis: right heel ulcer Operation: Aortogram, RLE angiogram, Ant tiibial artery atherectomy, with angioplasty Findings: 80 percent stenosis of origin of Anterior tibial artery Post-Operative Diagnosis: Same as Pre-op Surgeon: Yvon Baker Anesthesia: Fractional Estimated Blood Loss (mls): 50 Operative Report Dictated: Yes
[2019-08-15] MEDS ORDERED: LACTATED RINGERS SOLUTION 1,000 ML IV SCH (11:00)
[2019-08-15] MEDS ORDERED: BACITRACIN 15 GM TUBE TOPICAL OINTMENT ONE (14:00)
[2019-08-15 17:59] VITALS: PULSE 82; TEMP 97.5
[2019-08-15 18:05] VITALS: BP 130/62
--- NOTE | 2019-09-04 19:04 | OP ---
DATE OF OPERATION: 08/15/2019 PREOPERATIVE DIAGNOSIS: Right heel ulcer. POSTOPERATIVE DIAGNOSIS: Right heel ulcer. PROCEDURE: Aortogram, right lower extremity angiogram, anterior tibial artery atherectomy with angioplasty. SURGEON: Yvon Kee DO ANESTHESIA: Fractional. BLOOD LOSS: 50 mL. INDICATIONS: The patient is a 68-year-old female who has an ulcer on her right heel that has been longstanding. [facility] Recent preoperative ultrasound showed that she has severe artery disease and it was decided that she would need an angiogram. The patient got a workup by her medical and teacher of family and consumer science and the patient was cleared for her angiogram. Patient came into ambulatory surgery. Patient was consented for the procedure understanding all risks, benefits and alternatives, was then brought to the operating room. DESCRIPTION OF PROCEDURE: Once in the operating room she was laid on the operative table in supine manner and the area of the left and right groin were prepped and draped in a sterile surgical manner. We then injected 10 mL of lidocaine 1% over the left common femoral artery. We then took a micropuncture needle, punctured the left common femoral artery. Micropuncture wire inserted. Micropuncture sheath was inserted and a traditional 5-Bengali sheath was inserted. We then went ahead and placed a 0.035 floppy guidewire up the aorta, followed by an Omni Flush catheter. We then shot an aortogram by hand injection showing that the aorta and iliac arteries were without any disease. We then placed our 0.035 floppy guidewire and brought it up and over to the right common femoral artery. We then shot an angiogram of the right lower extremity showing that the common femoral artery, the profunda, the SFA and the popliteal artery were patent. The TP trunk was patent. The patient had disease of the anterior tibial artery from the origin for about 10 cm. The anterior tibial artery and peroneal artery seemed to the main runoff into the foot. We went ahead and placed a 0.035 stiff guidewire into the SFA and moved the Omni Flush catheter. A 6 x 45 crossover sheath was placed and 5000 units of IV heparin were administered to the patient. We then brought over our 0.035 stiff guidewire down into the SFA and popliteal artery and we were able to cross the anterior tibial artery lesion and exchange the wire for a ViperWire. We then went ahead and used a CSI Orbital Atherectomy device and performed orbital atherectomy of the proximal anterior tibial artery going down about 10 cm . We then went ahead and used a 3 x 10 Ultraverse balloon and performed angioplasty of the anterior tibial artery. Completion angiogram now showed that the anterior tibial artery was patent and there was good brisk flow going down to the forefoot, which was then feeding the plantar aspect of the foot. At this point no wire intervention was needed. Our sheath was brought up and over. StarClose device was deployed in the left common femoral artery. Pressure was held for 5 minutes, after which there was no bleeding, area was wet and dried and Dermabond was placed. The patient tolerated the procedure with no complications. Patient transferred to PACU in stable condition. YVON KEE DO [id number]
== END 2019-08-15 16:50 | disposition home or self-care (01) ==
LOC: JASU-SURG 06:31
PROVIDERS: ATTEND Surgery Vascular Surgery
PROC: 047K3ZZ Dilation of Right Femoral Artery, Percutaneous Approach (ICD-10-PCS; principal; 2019-08-15 09:00)
DX: E11.51 Type 2 diabetes mellitus with diabetic peripheral angiopathy without gangrene (principal); I48.91 Unspecified atrial fibrillation; C92.10 Chronic myeloid leukemia, BCR/ABL-positive, not having achieved remission; Z79.4 Long term (current) use of insulin; Z79.01 Long term (current) use of anticoagulants; L97.419 Non-pressure chronic ulcer of right heel and midfoot with unspecified severity
CPT/HCPCS: 37225; C1885; 76000-TC-FY; 82962; 94760; J1644